=== PATIENT | female | born 1965 | race Hispanic/Latino ===

== ENCOUNTER 2016-12-01 11:38 | Inpatient (IN) | payer OTHER ==
[2016-12-01 12:49] VITALS: BMI 24.7
[2016-12-01] MEDS ORDERED: Sodium Chloride 0.9% 1,000 ML IV STA (13:50)
--- NOTE | 2016-12-01 14:11 | ED PDOC ---
Arrival/HPI - General Chief Complaint: Abdominal Pain Time Seen by Provider: 12/01/16 13:48 Historian: Patient - History of Present Illness Narrative History of Present Illness (Text): 12/01/16 14:06 A 51 year old female, whose past medical history includes Crohn's disease, presents to the emergency department complaining of diffuse abdominal pain for the past few days. Patient reports associated nausea, non-bilious non-bloody vomiting and diarrhea. Patient states symptoms are similar in quality to previous Crohn's flare-ups. Patient denies any fever, chills, chest pain, shortness of breath, urinary symptoms, back pain, neck pain, headache, dizziness , or any other complaints. Time/Duration: Other (few days) Symptom Course: Unchanged Quality: Other Context: Other Past Medical History - Provider Review Nursing Documentation Reviewed: Yes - Infectious Disease Hx of Infectious Diseases: None - Tetanus Immunization Tetanus Immunization: Unknown - Cardiac Hx Cardiac Disorders: No - Pulmonary Hx Respiratory Disorders: Yes Hx Asthma: Yes Hx Pneumonia: Yes - Neurological Hx Neurological Disorder: No - HEENT Hx HEENT Disorder: No - Renal Hx Renal Disorder: No - Endocrine/Metabolic Hx Endocrine Disorders: No - Hematological/Oncological Hx Blood Disorders: No - Integumentary Hx Dermatological Disorder: Yes Hx Eczema: Yes (flare up noted on stomach/back/bilateral upper and lower extremities) Hx Psoriasis: Yes - Musculoskeletal/Rheumatological Hx Musculoskeletal Disorders: Yes Hx Falls: Yes Other/Comment: passed out x 1 - Gastrointestinal Hx Gastrointestinal Disorders: Yes Hx Crohn's Disease: Yes (10 years ) - Genitourinary/Gynecological Hx Genitourinary Disorders: No - Psychiatric Hx Psychophysiologic Disorder: Yes Hx Anxiety: Yes Hx Substance Use: No - Surgical History Other/Comment: PT reports a Rt hemicolectomy without stoma placement done 5years ago. - Anesthesia Hx Anesthesia: Yes Hx Anesthesia Reactions: No Hx Malignant Hyperthermia: No - Suicidal Assessment Feels Threatened In Home Enviroment: No Family/Social History - Physician Review Nursing Documentation Reviewed: Yes Family/Social History: No Known Family HX Smoking Status: Current Some Days Smoker Hx Alcohol Use: Yes Hx Substance Use: No Substance used: Xanax Hx Substance Use Treatment: No Allergies/Home Meds Allergies/Adverse Reactions: Allergies morphine Allergy (Verified 12/01/16 12:49) RASH Physical Exam - Physical Exam Narrative Physical Exam (Text): - Review of Systems Constitutional: Normal. absent: Fatigue, Weight Change, Fevers Eyes: Normal ENT: Normal Respiratory: Normal absent: SOB, Cough, Sputum Cardiovascular: Normal absent: Chest pain, Palpitations, Syncope Gastrointestinal: (+) Abdominal pain, Diarrhea, Nausea, Vomiting Genitourinary: Normal. absent: Dysuria, Frequency, Hematuria Musculoskeletal: Normal. absent: Arthralgias, Back Pain, Neck Pain Skin: Normal Neurological: Normal absent: Focal Weakness Endocrine: Normal Hemo/Lymphatic: Normal Psychiatric: Normal - Physical exam Patient appears age appropriate, speaking full sentences without difficulty - Systems Exam Head: Present: Atraumatic, Normocephalic Pupils: Present: PERRL Extraocular Muscles: Present: EOMI Conjunctiva: Present: Normal Mouth: Present: Moist Mucous Membranes Neck: Present: Normal Range of Motion. No: MIDLINE TENDERNESS, Paraspinal Tenderness Respiratory/Chest: Present: Clear to Auscultation, Good Air Exchange. No: Respiratory Distress, Accessory Muscle Use, Tachypneic Cardiovascular: Present: Regular Rate and Rhythm, Normal S1, S2, Peripheral Pulses Present. No: Murmurs Abdomen: Present: Normal Bowel Sounds, No: Tenderness, Peritoneal Signs, Rebound, Guarding, Distention Back: Present: Normal Inspection. No: Midline Tenderness, Paraspinal Tenderness Upper Extremity: Present: Normal Inspection. No: Cyanosis, Edema Lower Extremity: Present: Normal Inspection. No: Edema Neurological: Present: GCS=15, Speech Normal, cranial nerves II through XII fully intact with no cerebellar abnormality, neuro-sensory fully intact. No focal neurological deficits. Skin: Present: Warm, Dry, Normal Color. No: Rashes Lymphatic: Present: OX3, NI, NC Psychiatric: Present: Alert, Oriented x 3, Normal Insight, Normal Concentration Vital Signs Reviewed: Yes Vital Signs Temp Pulse Resp BP Pulse Ox 12/01/16 17:08 68 18 105/69 98 12/01/16 16:00 71 18 107/71 98 12/01/16 13:58 79 18 105/74 98 12/01/16 12:51 97.9 F 89 16 103/80 98 Temperature: Afebrile Blood Pressure: Normal Pulse: Regular Respiratory Rate: Normal Appearance: Positive for: Well-Appearing, Non-Toxic, Comfortable Pain Distress: None Mental Status: Positive for: Alert and Oriented X 3 Medical Decision Making ED Course and Treatment: 12/01/16 14:06 Impression: A 51 year old female with a history of Crohn's disease complains of abdominal pain, nausea, non-bilious non-bloody vomiting and diarrhea. Plan: -- Abdomen and pelvis CT -- Chest xray -- EKG -- Labs -- Blood culture -- Urinalysis -- IV fluids and Tylenol -- Reassess and disposition 12/01/16 18:27 Patient continues to have abdominal pain despite IV Dilaudid. States that she is in too much pain to be discharged home at this time. Case discussed with Dr. Fierro, aware of admission to his service. 12/01/16 18:[address] Maximus Martinez, med. resident. States will also let Dr. Smith know. 12/01/16 20:08 CT IMPRESSION: Pelvic abscess; increasing adenopathy infectious versus neoplastic; Ileus and/or partial/early bowel obstruction; thickened small bowel loops causing partial obstruction consistent with history of Crohn's disease; dilated common bile duct distal obstructing lesion cannot be excluded; mild hepatomegaly with fatty infiltration; rectal wall thickening inflammation/ infection versus neoplasm Additional findings as described above. Dictated and Authenticated by: Karen Madrid MD IV abx ordered Dr. Smith informed of above findings 12/01/16 20:[address] Gerber from surgery - Lab Interpretations Lab Results: 12/01/16 16:25 12/01/16 16:25 Lab Results 12/01/16 16:25: WBC 10.7, RBC 4.36, Hgb 12.1, Hct 36.8, MCV 84.4, MCH 27.8, MCHC 32.9, RDW 16.8 H, Plt Count 350, MPV 11.3 H, Gran % 69.9 H, Lymph % (Auto) 14.8 L, Oliver % (Auto) 11.5 H, Eos % (Auto) 3.7, Baso % (Auto) 0.1, Gran # 7.49 H , Lymph # 1.6, Oliver # 1.2 H, Eos # 0.4, Baso # 0.01, PT 12.8 H, INR 1.19 H, APTT 27.4, Sodium 136, Potassium 3.3 L, Chloride 101, Carbon Dioxide 23, Anion Gap 15, BUN 14, Creatinine 0.9, Est GFR ( Amer) > 60, Est GFR (Non-Af Amer) > 60, Random Glucose 145 H, Calcium 9.0, Total Bilirubin 0.4, AST 28, ALT 14, Alkaline Phosphatase 92, Total Protein 6.8, Albumin 3.0, Globulin 3.8, Albumin/Globulin Ratio 0.8 L, Lipase 12 L 12/01/16 14:23: Urine Color Yellow, Urine Appearance Clear, Urine pH 6.0, Ur Specific Irving 1.025, Urine Protein 30 H, Urine Glucose (UA) Negative, Urine Ketones Negative, Urine Blood Negative, Urine Nitrate Negative, Urine Bilirubin Negative, Urine Urobilinogen 0.2, Ur Leukocyte Esterase Negative, Urine RBC Negative, Urine WBC 0 - 2, Ur Epithelial Cells 0 - 2, Calcium Oxalate Crystal Rare, Urine Bacteria Few, Hyaline Casts 0 - 2 I have reviewed the lab results: Yes - RAD Interpretation Radiology Orders: 12/01/16 13:48 ABD & PELVIS IV CONTRAST ONLY [CT] Stat 12/01/16 13:50 CHEST PORTABLE [RAD] Stat - Medication Orders Current Medication Orders: Piperacillin Sod/Tazobactam Sod (Zosyn 4.5 Gm In Ns 100ml) 100 mls @ 200 mls/ hr IVPB STAT STA PRN Reason: Protocol Stop: 12/01/16 20:36 Discontinued Medications Acetaminophen (Tylenol 325mg Tab) 975 mg PO STAT STA Stop: 12/01/16 14:05 Last Admin: 12/01/16 14:15 Dose: 975 MG MAR Pain/Vitals Document 12/01/16 14:15 HI (Rec: 12/01/16 16:42 [id number]) Pain Reassessment Is This A Pain ReAssessment? No Sleep Is patient sleeping during reassessment? No Presence of Pain Presence of Pain Yes Pain Scale Used Pain Scale Used Numeric Location Intensity 8 Hydromorphone HCl (Dilaudid) 1 mg IVP STAT STA Stop: 12/01/16 16:39 Last Admin: 12/01/16 17:02 Dose: 1 MG IVP Administration Document 12/01/16 17:02 HI (Rec: 12/01/16 17:02 [id number]) Charges for Administration # of IVP Administrations 1 Sodium Chloride (Sodium Chloride 0.9%) 1,000 mls @ 1,000 mls/hr IV .Q1H STA Stop: 12/01/16 14:49 Last Admin: 12/01/16 16:43 Dose: 1,000 MLS/HR eMAR Start Stop Document 12/01/16 16:43 HI (Rec: 12/01/16 16:43 [facility] [id number] Intravenous Solution Start Date 12/01/16 Start Time 16:43 End Date 12/01/16 End time 17:43 Total Infusion Time 60 Magnesium Sulfate/Dextrose (Magnesium Sulfate 1 Gm/100 Ml D5w) 100 mls @ 100 mls/hr IVPB ONCE ONE Stop: 12/01/16 18:33 Last Admin: 12/01/16 17:48 Dose: 100 MLS/HR eMAR Start Stop Document 12/01/16 17:48 HI (Rec: 12/01/16 17:48 [id number]) Intravenous Solution Start Date 12/01/16 Start Time 17:48 End Date 12/01/16 End time 18:48 Total Infusion Time 60 Potassium Chloride (K-Dur 20 Meq Er Tab) 40 meq PO STAT STA Stop: 12/01/16 17:35 Last Admin: 12/01/16 17:48 Dose: 40 MEQ ED OBSERVATION Date of observation admission: 12/01/16 Time of observation admission: 11:51 - Scribe Statement The provider has reviewed the documentation as recorded by the Scribscout Johnson Provider Scribe Attestation: All medical record entries made by the Scribe were at my direction and personally dictated by me. I have reviewed the chart and agree that the record accurately reflects my personal performance of the history, physical exam, medical decision making, and the department course for this patient. I have also personally directed, reviewed, and agree with the discharge instructions and disposition. Disposition/Present on Arrival - Present on Arrival Any Indicators Present on Arrival: No History of DVT/PE: No History of Uncontrolled Diabetes: No Urinary Catheter: No History of Decub. Ulcer: No History Surgical Site Infection Following: None - Disposition Have Diagnosis and Disposition been Completed?: Yes Diagnosis: Abdominal pain Disposition: HOSPITALIZED Disposition Time: 11:51 Patient Plan: Admission Patient Problems: Current Active Problems Problem Status Diagnosed Abdominal pain Acute Abnormal EKG Acute Bradycardia Acute Exacerbation of Crohn's disease Acute Polysubstance abuse Acute Syncope Acute Condition: FAIR
[2016-12-01 14:28] LABS: URINE BILIRUBIN NEGATIVE (NEGATIVE); URINE BLOOD NEGATIVE (NEGATIVE); URINE GLUCOSE (UA) NEGATIVE (NEGATIVE); URINE KETONE NEGATIVE (NEGATIVE); URINE LEUKOCYTE ESTERASE NEGATIVE Leu/uL (NEGATIVE); URINE PROTEIN 30 mg/dL (<30 mg/dL); URINE UROBILINOGEN 0.2 E.U./dL (<1 E.U./dL)
[2016-12-01 14:29] LABS: URINE APPEARANCE CLEAR (CLEAR); URINE COLOR YELLOW (YELLOW)
[2016-12-01 14:49] LABS: URINE BACTERIA FEW (NEG); URINE CALCIUM OXALATE CRYSTALS RARE /hpf; URINE EPITHELIAL CELLS 0 - 2 /hpf (0-5); URINE RBC NEGATIVE /hpf (0-2); URINE WBC 0 - 2 /hpf (0-6)
[2016-12-01 16:37] LABS: ADD MANUAL DIFF? NO
[2016-12-01] MEDS ORDERED: HYDROmorphone 1 mg/ml ISec IVP STA (16:38)
[2016-12-01 16:53] LABS: ALB/GLOB RATIO 0.8 (1.1-1.8); ALKALINE PHOSPHATASE 92 U/L (38-133); ALT/SGPT 14 U/L (7-56); AST/SGOT 28 U/L (15-39); BILIRUBIN,TOTAL 0.4 mg/dL (0.2-1.3); BLOOD UREA NITROGEN 14 mg/dL (7-21); CARBON DIOXIDE 23 mmol/L (21-33); CHLORIDE 101 mmol/L (98-107); GFR AFRICAN-AMERICAN > 60; GLUCOSE,RANDOM 145 mg/dL (70-110); LIPASE 12 U/L (23-300); SODIUM 136 mmol/L (132-148); TOTAL PROTEIN 6.8 g/dL (5.8-8.3)
[2016-12-01 16:55] LABS: EOS % 3.7 % (1.5-5.0); GRAN % 69.9 % (50.0-68.0); HEMATOCRIT 36.8 % (36.0-48.0); LYMPH % 14.8 % (22.0-35.0); MEAN CELL VOLUME 84.4 fL (80.0-105.0); MEAN CORPUSCULAR HEMOGLOBIN 27.8 pg (25.0-35.0); MEAN CORPUSCULAR HGB CONC 32.9 g/dl (31.0-37.0); MEAN PLATELET VOLUME 11.3 fl (7.0-11.0); MONO % 11.5 % (1.0-6.0); PLATELET COUNT 350 10^3/uL (120.0-450.0); RED CELL DISTRIBUTION WIDTH 16.8 % (11.5-14.5); WHITE BLOOD COUNT 10.7 10^3/ul (4.5-11.0)
[2016-12-01 16:56] LABS: BASO # 0.01 K/mm3 (0.0-2.0); BASO % 0.1 % (0.0-3.0); EOS # 0.4 (0.0-0.7); GRAN # 7.49 (1.4-6.5); LYMPH # 1.6 (1.2-3.4); MONO # 1.2 (0.1-0.6)
[2016-12-01 16:58] LABS: POTASSIUM 3.3 mmol/L (3.6-5.0)
--- NOTE | 2016-12-01 17:00 | RAD ---
HISTORY: cough COMPARISON: Comparison is made to the previous study dated 10/08/2016 FINDINGS: LUNGS: No active pulmonary disease. PLEURA: No significant pleural effusion identified, no pneumothorax apparent. CARDIOVASCULAR: Normal. OSSEOUS STRUCTURES: No significant abnormalities. VISUALIZED UPPER ABDOMEN: Normal. OTHER FINDINGS: None. IMPRESSION: No radiographic evidence of pneumonia.
[2016-12-01 17:03] LABS: INR 1.19 (0.93-1.08); PARTIAL THROMBOPLASTIN TIME 27.4 Seconds (23.7-30.8)
[2016-12-01] MEDS ORDERED: Potassium Chloride 20 mEq ER Tab PO STA (17:34)
--- NOTE | 2016-12-01 19:31 | CP.PCM.HP ---
<Gela Martinez - Last Filed: 12/01/16 20:59> History of Present Illness - History of Present Illness History of Present Illness: A 51 year old female, whose past medical history includes Crohn's disease, presents to the emergency department complaining of diffuse abdominal pain for the past few days. 10/10 constant, worse RUQ and LUQ. Patient reports associated nausea, non-bilious non-bloody vomiting and diarrhea. 4-5 episodes of each day. Patient states symptoms are similar in quality to previous Crohn's flare-ups. In the Patient continues to have abdominal pain despite IV Dilaudid CT showed: Pelvic Abscess Increasing adenopathy - infectious vs neoplastic Ileus and/or partial/early bowel obstruction thickened small bowel loops causing partial obstruction consistent with Crohn Dilated common bule duct distal obstruting lesion cannot r/o Mild hepatomegatly with fatty infiltration rectal wall thickening inflammation vs infection vs neoplasm Patient denies any fever, chills, chest pain, shortness of breath, urinary symptoms, back pain, neck pain, headache, dizziness, or any other complaints. PMH Crohn's disease x 10 years Asthma Hx Pneumonia Eczema/Psoriasis (flare up noted on stomach/back/bilateral upper and lower extremities) Hx fall Anxiety, Depression, Bipolar disorder, drug use, and alcohol abuse PSH Rt hemicolectomy without stoma placement Flavia-rectal Abscess drainage in June 2016 w/ Dr. Derrell Metcalf FHx: Unremarkable SHx: Admits to heavy tobacco, alcohol use, and cocaine use. All: Morphine (hives) Meds: As per chart PMD Present on Admission - Present on Admission Any Indicators Present on Admission: No Past Patient History - Infectious Disease Hx of Infectious Diseases: None - Tetanus Immunizations Tetanus Immunization: Unknown - Past Medical History & Family History Past Medical History?: Yes - Past Social History Smoking Status: Current Some Days Smoker - CARDIAC Hx Cardiac Disorders: No - PULMONARY Hx Respiratory Disorders: Yes Hx Asthma: Yes Hx Pneumonia: Yes - NEUROLOGICAL Hx Neurological Disorder: No - HEENT Hx HEENT Problems: No - RENAL Hx Chronic Kidney Disease: No - ENDOCRINE/METABOLIC Hx Endocrine Disorders: No - HEMATOLOGICAL/ONCOLOGICAL Hx Blood Disorders: No - INTEGUMENTARY Hx Dermatological Problems: Yes Hx Eczema: Yes (flare up noted on stomach/back/bilateral upper and lower extremities) Hx Psoriasis: Yes - MUSCULOSKELETAL/RHEUMATOLOGICAL Hx Musculoskeletal Disorders: Yes Hx Falls: Yes Other/Comment: passed out x 1 - GASTROINTESTINAL Hx Gastrointestinal Disorders: Yes Hx Crohn's Disease: Yes (10 years ) - GENITOURINARY/GYNECOLOGICAL Hx Genitourinary Disorders: No - PSYCHIATRIC Hx Psychophysiologic Disorder: Yes Hx Anxiety: Yes Hx Substance Use: No - SURGICAL HISTORY Other/Comment: PT reports a Rt hemicolectomy without stoma placement done 5years ago. - ANESTHESIA Hx Anesthesia: Yes Hx Anesthesia Reactions: No Hx Malignant Hyperthermia: No Meds Allergies/Adverse Reactions: Allergies Allergy/AdvReac Type Severity Reaction Status Date / Time morphine Allergy RASH Verified 12/01/16 12:49 Physical Exam - Constitutional Appears: No Acute Distress - Head Exam Head Exam: ATRAUMATIC, NORMOCEPHALIC - Eye Exam Eye Exam: EOMI, Normal appearance, PERRL Pupil Exam: NORMAL ACCOMODATION - ENT Exam ENT Exam: Mucous Membranes Moist - Neck Exam Neck exam: Negative for: Meningismus Additional comments: no jvd - Respiratory Exam Respiratory Exam: Clear to Auscultation Bilateral, NORMAL BREATHING PATTERN. absent: Rales, Rhonchi, Wheezes - Cardiovascular Exam Cardiovascular Exam: REGULAR RHYTHM, +S1, +S2. absent: Systolic Murmur - GI/Abdominal Exam GI & Abdominal Exam: Distended, Hypoactive Bowel Sounds, Soft. absent: Guarding , Rigid - Extremities Exam Extremities exam: Positive for: normal capillary refill, pedal pulses present. Negative for: calf tenderness, pedal edema - Back Exam Back exam: absent: CVA tenderness (L), CVA tenderness (R) - Neurological Exam Neurological exam: Alert, Oriented x3 - Psychiatric Exam Psychiatric exam: Agitated, Anxious - Skin Skin Exam: Dry, Rash (abdomin, LLE b/l. chronic), Warm Results - Vital Signs Recent Vital Signs: Last Vital Signs Temp 97.9 F 12/01/16 12:51 Pulse 68 12/01/16 17:08 Resp 18 12/01/16 17:08 BP 105/69 12/01/16 17:08 Pulse Ox 98 12/01/16 17:08 - Labs Result Diagrams: 12/01/16 16:25 12/01/16 16:25 Assessment & Plan - Assessment and Plan (Free Text) Plan: Abdominal Pain - Diluadid 0.5 mg Q4H PRN hold if SBP <90 - NPO - Vanco and zoysn - ID consult - NS+20K @ 100 Pelvic Abscess - Increasing adenopathy - infectious vs neoplastic - surgery consult Ileus and/or partial/early bowel obstruction with rectal wall thickening Crohn with skin rash - thickened small bowel loops causing partial obstruction consistent with Crohn - rectal wall thickening inflammation vs infection vs neoplasm - GI consult - - hydrocortisone cream for skin rash Dilated common bule duct distal obstruting lesion cannot r/o Mild hepatomegatly with fatty infiltration Hx Crohn's Disease - home med - Mesalamine 100mg PO QID Hx Asthma - no breathing complaint. POx normal Hx Depression, Anxiety Restarted home medications: Lexapro 10mg PO daily, Seroquel 200mg PO BID, Klonopin 1mg PO TID Hx of Alcohol Abuse Hx of Heroine, Cocaine Abuse Prior UDS: + opiates, methadone, cocaine Pending current UDS Neuropathy - gabapentin 800 TID Prophylactic Measures GI PPX: Protonix 40mg PO daily DVT PPX: SCDs Zofran PRN Tylenol PRN D/S/R/w Dr. Davina Smith - Date & Time Date: 12/01/16 Time: 20:32 <Lester Smith - Last Filed: 12/02/16 07:03> Results - Vital Signs Recent Vital Signs: Last Vital Signs Temp 98.1 F 12/02/16 05:28 Pulse 71 12/02/16 05:28 Resp 20 12/02/16 05:28 BP 115/89 12/02/16 05:28 Pulse Ox 99 12/01/16 22:17 - Labs Result Diagrams: 12/01/16 16:25 12/01/16 16:25 Attending/Attestation - Attestation I have personally seen and examined this patient.: Yes I have fully participated in the care of the patient.: Yes I have reviewed all pertinent clinical information: Yes Notes (Text): 12/02/16 07:02 Patient was seen when she was in the ER in bed # 21. Agree with history , physical examination , assessment and plan.
--- NOTE | 2016-12-01 19:50 | CT ---
EXAM: CT Abdomen and Pelvis With Intravenous Contrast. CLINICAL HISTORY: 51 years old, female; Signs and symptoms; Nausea and other: [place]; Prior surgery; Surgery date: 6+ months; Patient HX: [place]. HX crohns. Colon resection TECHNIQUE: Axial computed tomography images of the abdomen and pelvis with intravenous contrast. This CT exam was performed using one or more of the following dose reduction techniques: automated exposure control, adjustment of the mA and/or kV according to patient size, and/or use of iterative reconstruction technique. Coronal and sagittal reformatted images were created and reviewed. CONTRAST: 100 mL of OMNI administered intravenously. EXAM DATE/TIME: 12/01/2016 1:48 PM COMPARISON: CT - ABD PELVIS W/O PO OR IV CONT 10/28/2016 12:56:28 AM FINDINGS: Lower thorax: Heart size is normal. There is a small hiatal hernia. There is minimal atelectasis and scarring at the lung bases ABDOMEN: Liver: There is fatty infiltration of the liver. The liver is mildly enlarged Gallbladder and bile ducts: Gallbladder is distended. Common bile duct is dilated. Pancreas: Pancreas is atrophic. 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 Stomach and bowel: Stomach is partially distended. Rotation is normal. Small bowel is mildly dilated. There are air fluid levels. There is a thickened inflamed small bowel loop in the right mid abdomen, image 111 series 2. There is a thickened inflamed small bowel loop in the right lower quadrant with associated caliber change, images 112-137, series 2. There is an additional area bowel inflammation with narrowing in the right lower quadrant, image 137 series 2. There is an enteral anastomosis in the right lower quadrant. There is a colorectal anastomosis in the right lower abdomen. There is a large amount of air and stool in the right colon. Degree of distention decreases distally. There is focal rectal wall thickening and wall irregularity in the low pelvis. There is inflammation in the adjacent perirectal and presacral fat. Inflammation is contiguous with the abscess. Appendix: See stomach and bowel PELVIS: Bladder: Bladder is partially distended. There is mild bladder wall prominence. There is perivesical fluid. Reproductive: Uterus and adnexal structures are unremarkable. ABDOMEN and PELVIS: Intraperitoneal space: There is no free air. There irregularly shaped fluid collection in the cul-de-sac with mild wall enhancement. This measures approximately 4.3 x 6 x 6 cm. Anterior inferior portion cannot be from the vagina. Bones/joints: There are degenerative changes in the osseus structures. Soft tissues: See above. Vasculature: There are multiple phleboliths. Aorta and inferior vena cava are unremarkable. Lymph nodes: There is inguinal adenopathy left greater than right. Left inguinal adenopathy has increased compared to the prior study. There is bulky left external iliac adenopathy increased since the prior study. There is increasing paracaval and para-aortic retroperitoneal adenopathy IMPRESSION: Pelvic abscess; increasing adenopathy infectious versus neoplastic; Ileus and/or partial/early bowel obstruction; thickened small bowel loops causing partial obstruction consistent with history of Crohn's disease; dilated common bile duct distal obstructing lesion cannot be excluded; mild hepatomegaly with fatty infiltration; rectal wall thickening inflammation/infection versus neoplasm Additional findings as described above.
[2016-12-01] MEDS ORDERED: Piperacill/Tazo 4.5gm in NS 100 ML IVPB STA (20:07)
[2016-12-01] MEDS: HYDROmorphone 0.5 mg/0.5 ml ISec IVP PRN (20:39)
--- NOTE | 2016-12-01 20:56 | CARD ---
APPROVED REPORT EKG Measurement Heart [id number] <Conclusion> Normal sinus rhythm Nonspecific T wave abnormality Abnormal ECG
--- NOTE | 2016-12-01 21:53 | CP.PCM.CON ---
<Edin Coburn - Last Filed: 12/01/16 22:24> History of Present Illness - History of Present Illness History of Present Illness: SURGERY CONSULT NOTE FOR DR. MARTI 51F presents to [facility] [place] with abdominal pain that she states began over the weekend. Patient states she has had this type of pain numerous time due to her Crohn's disease. She states the pain has been growing intensity the past two days and earlier this morning it became unbearable. Pain is described as diffused and aching/pressure. She admits to nausea but denies vomiting when I asked her. She denies fevers and chill. States she has been having multiple bouts of diarrhea in the past couple of days. PMH:Crohn's, Psoriasis, Asthma, Anxiety, Alcohol abuse, Drug abuse PSH: Right hemicolectomy, Flavia-rectal abscess Social: she denied tobacco, alcohol and illicit drug use, but has a history as per chart Allergies: states she has no allergies, denies morphine allergy Past Patient History - Infectious Disease Hx of Infectious Diseases: None - Tetanus Immunizations Tetanus Immunization: Unknown - Past Medical History & Family History Past Medical History?: Yes - Past Social History Smoking Status: Current Some Days Smoker - CARDIAC Hx Cardiac Disorders: No - PULMONARY Hx Respiratory Disorders: Yes Hx Asthma: Yes Hx Pneumonia: Yes - NEUROLOGICAL Hx Neurological Disorder: No - HEENT Hx HEENT Problems: No - RENAL Hx Chronic Kidney Disease: No - ENDOCRINE/METABOLIC Hx Endocrine Disorders: No - HEMATOLOGICAL/ONCOLOGICAL Hx Blood Disorders: No - INTEGUMENTARY Hx Dermatological Problems: Yes Hx Eczema: Yes (flare up noted on stomach/back/bilateral upper and lower extremities) Hx Psoriasis: Yes - MUSCULOSKELETAL/RHEUMATOLOGICAL Hx Musculoskeletal Disorders: Yes Hx Falls: Yes Other/Comment: passed out x 1 - GASTROINTESTINAL Hx Gastrointestinal Disorders: Yes Hx Crohn's Disease: Yes (10 years ) - GENITOURINARY/GYNECOLOGICAL Hx Genitourinary Disorders: No - PSYCHIATRIC Hx Psychophysiologic Disorder: Yes Hx Anxiety: Yes Hx Substance Use: No - SURGICAL HISTORY Other/Comment: PT reports a Rt hemicolectomy without stoma placement done 5years ago. - ANESTHESIA Hx Anesthesia: Yes Hx Anesthesia Reactions: No Hx Malignant Hyperthermia: No Meds Allergies/Adverse Reactions: Allergies Allergy/AdvReac Type Severity Reaction Status Date / Time morphine Allergy RASH Verified 12/01/16 12:49 - Medications Medications: Current Medications Acetaminophen (Tylenol 325mg Tab) 650 mg PO Q6H PRN PRN Reason: Pain, moderate (4-7) Clonazepam (Klonopin) 1 mg PO TID [facility] PRN Reason: Protocol Escitalopram Oxalate (Lexapro) 10 mg PO DAILY [facility] Gabapentin (Neurontin) 800 mg PO TID [facility] PRN Reason: Protocol Hydrocortisone (Cortizone 1% Cream) 0 gm TOP BID [facility] Hydromorphone HCl (Dilaudid) 0.5 mg IVP Q4H PRN PRN Reason: Pain, severe (8-10) Last Admin: 12/01/16 20:39 Dose: 0.5 mg Potassium Chloride 20 meq/ (Sodium Chloride) 1,010 mls @ 100 mls/hr IV .Q10H6M [facility] Piperacillin Sod/Tazobactam Sod (Zosyn 3.375 In Ns 100ml) 100 mls @ 200 mls/hr IVPB Q6 [facility] PRN Reason: Protocol Stop: 12/02/16 06:29 Vancomycin HCl (Vancomycin 1gm) 250 mls @ 167 mls/hr IVPB Q12H [facility] PRN Reason: Protocol Mesalamine (Pentasa) 1,000 mg PO QID [facility] Ondansetron HCl (Zofran Inj) 4 mg IVP Q8 PRN PRN Reason: Nausea/Vomiting Pantoprazole Sodium (Protonix Ec Tab) 40 mg PO DAILY [facility] Quetiapine Fumarate (Seroquel) 200 mg PO BID [facility] PRN Reason: Protocol Zolpidem Tartrate (Ambien) 5 mg PO HS [facility] PRN Reason: Protocol Physical Exam - Constitutional Appears: Non-toxic, No Acute Distress - Head Exam Head Exam: ATRAUMATIC - Eye Exam Eye Exam: EOMI, PERRL - ENT Exam Additional comments: poor dental hygiene - Respiratory Exam Respiratory Exam: Clear to Auscultation Bilateral, NORMAL BREATHING PATTERN - Cardiovascular Exam Cardiovascular Exam: REGULAR RHYTHM, +S1, +S2 - GI/Abdominal Exam GI & Abdominal Exam: Distended, Tenderness. absent: Guarding, Rigid - Extremities Exam Extremities exam: Negative for: tenderness - Neurological Exam Neurological exam: Alert, Oriented x3 - Skin Skin Exam: Dry, Rash (eczematous rash), Warm Results - Vital Signs Recent Vital Signs: Last Vital Signs Temp 97.9 F 12/01/16 12:51 Pulse 68 12/01/16 17:08 Resp 18 12/01/16 17:08 BP 105/69 12/01/16 17:08 Pulse Ox 98 12/01/16 17:08 - Labs Result Diagrams: 12/01/16 16:25 12/01/16 16:25 Assessment & Plan - Assessment and Plan (Free Text) Assessment: 51F presents with abdominal pain, likely 2/2 Crohn's flare-up CT: pelvic abscess 4.3*6*6cm, thicken small bowel loops, right colon has moderate amount stool Plan: - strict Is&Os, monitor vitals, IVF - f/u GI recommendations - continue medical management - recommend IR consultation for evaluation of abdominal collection Discussed with Dr. Kaia Coburn, PGY1 <Dheeraj Marti - Last Filed: 12/10/16 20:42> Meds - Medications Medications: Current Medications Acetaminophen (Tylenol 325mg Tab) 650 mg PO Q6H PRN PRN Reason: Pain, moderate (4-7) Last Admin: 12/08/16 20:36 Dose: 650 mg Al Hydrox/Mg Hydrox/Simethicone (Maalox Plus 30 Ml) 30 ml PO DAILY PRN PRN Reason: Indigestion / Heartburn Clonazepam (Klonopin) 1 mg PO TID [facility] Stop: 12/15/16 18:01 Last Admin: 12/10/16 20:05 Dose: 1 mg Docusate Sodium (Colace) 100 mg PO TID [facility] Last Admin: 12/10/16 20:05 Dose: 100 mg Escitalopram Oxalate (Lexapro) 10 mg PO DAILY [facility] Last Admin: 12/10/16 10:08 Dose: 10 mg Gabapentin (Neurontin) 800 mg PO TID [facility] PRN Reason: Protocol Last Admin: 12/10/16 20:04 Dose: 800 mg Heparin Sodium (Porcine) (Heparin) 5,000 units SC Q12 [facility] PRN Reason: Protocol Last Admin: 12/10/16 09:49 Dose: Not Given Hydrocortisone (Cortizone 1% Cream) 0 gm TOP BID [facility] Last Admin: 12/10/16 20:06 Dose: 1 appl Hydrocortisone/Pramoxine (Proctofoam) 1 gm TOP TID [facility] Last Admin: 12/10/16 20:26 Dose: Not Given Meropenem 1g/NS 100mL IVPB (Meropenem 1g/Ns 100ml Ivpb) 100 mls @ 100 mls/hr IVPB Q8H [facility] Last Admin: 12/10/16 19:05 Dose: 100 mls/hr Ondansetron HCl (Zofran Inj) 4 mg IVP Q8 PRN PRN Reason: Nausea/Vomiting Oxycodone HCl (Oxycontin Extended Release Tab) 60 mg PO Q12 [facility] Oxycodone HCl (Oxycodone Immediate Release Tab) 15 mg PO BID PRN PRN Reason: Pain, moderate (4-7) Last Admin: 12/10/16 18:19 Dose: 15 mg Pantoprazole Sodium (Protonix Inj) 40 mg IVP DAILY [facility] Last Admin: 12/10/16 09:53 Dose: 40 mg Quetiapine Fumarate (Seroquel) 200 mg PO BID [facility] PRN Reason: Protocol Last Admin: 12/10/16 20:05 Dose: 200 mg Simethicone (Mylicon Chew Tab) 80 mg PO [facility] PRN PRN Reason: GI distress Last Admin: 12/09/16 17:12 Dose: 80 mg Zolpidem Tartrate (Ambien) 5 mg PO HS [facility] PRN Reason: Protocol Last Admin: 12/10/16 00:34 Dose: 5 mg Results - Vital Signs Recent Vital Signs: Last Vital Signs Temp 98 F 12/10/16 16:00 Pulse 62 12/10/16 16:00 Resp 20 12/10/16 16:00 BP 108/59 L 12/10/16 16:00 Pulse Ox 98 12/10/16 16:00 - Labs Result Diagrams: 12/10/16 06:30 12/09/16 05:30 Labs: Laboratory Results - last 24 hr 12/07/16 12/10/16 12/10/16 00:09 06:30 12:50 WBC 8.0 RBC 3.15 L Hgb 8.7 L Hct 27.0 L MCV 85.7 MCH 27.6 MCHC 32.2 RDW 16.1 H Plt Count 512 H MPV 9.7 Gran % 71.8 H Lymph % (Auto) 13.3 L Oliver % (Auto) 8.2 H Eos % (Auto) 6.4 H Baso % (Auto) 0.3 Gran # 5.72 Lymph # 1.1 L Oliver # 0.7 H Eos # 0.5 Baso # 0.02 CA 19-9 Antigen 125 H CA 125 Antigen 8.2 Crossmatch See Detail Assessment & Plan - Assessment and Plan (Free Text) Assessment: Patient was seen and examined by me. I agree with assessment and plan as per residents note. - Date & Time Date: 12/01/16 Time: 23:05
[2016-12-01] MEDS: Hydrocortisone 1% Cream (30 GM) TOP SCH (22:09)
[2016-12-01] MEDS: Vancomycin 1gm in NS 250ml 250 ML IVPB SCH (23:33)
[2016-12-01] MEDS: Mesalamine ER Cap 500 MG PO SCH (23:34)
[2016-12-02] MEDS ORDERED: Piperacillin/Tazobact 3.375 gm 100 ML IVPB SCH
[2016-12-02] MEDS: HYDROmorphone 0.5 mg/0.5 ml ISec IVP PRN ×7 (00:15→22:34)
--- NOTE | 2016-12-02 02:16 | CP.PCM.PN ---
Subjective - Date & Time of Evaluation Date of Evaluation: 12/02/16 Time of Evaluation: 02:15 - Subjective Subjective: #24 angiocath was inserted in left forearm. Objective - Vital Signs/Intake and Output Vital Signs (last 24 hours): Temp Pulse Resp BP Pulse Ox 97.9 F 75 16 110/59 L 99 12/01/16 12:51 12/01/16 22:17 12/01/16 22:17 12/01/16 22:17 12/01/16 22:17 - Medications Medications: Current Medications Acetaminophen (Tylenol 325mg Tab) 650 mg PO Q6H PRN PRN Reason: Pain, moderate (4-7) Clonazepam (Klonopin) 1 mg PO TID [facility] PRN Reason: Protocol Escitalopram Oxalate (Lexapro) 10 mg PO DAILY [facility] Gabapentin (Neurontin) 800 mg PO TID [facility] PRN Reason: Protocol Hydrocortisone (Cortizone 1% Cream) 0 gm TOP BID [facility] Last Admin: 12/01/16 22:09 Dose: Not Given Hydromorphone HCl (Dilaudid) 0.5 mg IVP Q4H PRN PRN Reason: Pain, severe (8-10) Last Admin: 12/02/16 00:15 Dose: 0.5 mg Potassium Chloride 20 meq/ (Sodium Chloride) 1,010 mls @ 100 mls/hr IV .Q10H6M [facility] Vancomycin HCl (Vancomycin 1gm) 250 mls @ 167 mls/hr IVPB Q12H [facility] PRN Reason: Protocol Last Admin: 12/01/16 23:33 Dose: 167 mls/hr Piperacillin Sod/Tazobactam Sod (Zosyn 3.375 In Ns 100ml) 100 mls @ 200 mls/hr IVPB Q6 [facility] PRN Reason: Protocol Stop: 12/09/16 00:01 Mesalamine (Pentasa) 1,000 mg PO QID [facility] Last Admin: 12/01/16 23:34 Dose: 1,000 mg Ondansetron HCl (Zofran Inj) 4 mg IVP Q8 PRN PRN Reason: Nausea/Vomiting Pantoprazole Sodium (Protonix Ec Tab) 40 mg PO DAILY [facility] Quetiapine Fumarate (Seroquel) 200 mg PO BID [facility] PRN Reason: Protocol Zolpidem Tartrate (Ambien) 5 mg PO HS [facility] PRN Reason: Protocol Last Admin: 12/01/16 23:35 Dose: 5 mg - Labs Labs: PT 12.8 Seconds (9.9-11.8) H 12/01/16 16:25 INR 1.19 (0.93-1.08) H 12/01/16 16:25 APTT 27.4 Seconds (23.7-30.8) 12/01/16 16:25
[2016-12-02] MEDS: Piperacillin/Tazobact 3.375 gm 100 ML IVPB SCH ×3 (06:31→19:03)
--- NOTE | 2016-12-02 07:28 | CP.PCM.PN ---
<Jada Cohen - Last Filed: 12/02/16 15:23> Subjective - Date & Time of Evaluation Date of Evaluation: 12/02/16 Time of Evaluation: 07:24 - Subjective Subjective: PROGRESS NOTE FOR SURGERY DR. MARTI Pt is seen and examined at bedside. She is c/o abd pain with a sensation of tenesmus. Pt denies having any N/V/D/C, fevers, chills. Objective - Vital Signs/Intake and Output Vital Signs (last 24 hours): Temp Pulse Resp BP Pulse Ox 98.1 F 71 20 115/89 99 12/02/16 05:28 12/02/16 05:28 12/02/16 05:28 12/02/16 05:28 12/01/16 22:17 Intake and Output: 12/02/16 12/02/16 06:59 18:59 Intake Total 120 Balance 120 - Medications Medications: Current Medications Acetaminophen (Tylenol 325mg Tab) 650 mg PO Q6H PRN PRN Reason: Pain, moderate (4-7) Clonazepam (Klonopin) 1 mg PO TID [facility] PRN Reason: Protocol Escitalopram Oxalate (Lexapro) 10 mg PO DAILY [facility] Gabapentin (Neurontin) 800 mg PO TID [facility] PRN Reason: Protocol Hydrocortisone (Cortizone 1% Cream) 0 gm TOP BID [facility] Last Admin: 12/01/16 22:09 Dose: Not Given Hydromorphone HCl (Dilaudid) 0.5 mg IVP Q3H PRN PRN Reason: Pain, severe (8-10) Potassium Chloride 20 meq/ (Sodium Chloride) 1,010 mls @ 100 mls/hr IV .Q10H6M [facility] Last Admin: 12/02/16 06:32 Dose: 100 mls/hr Vancomycin HCl (Vancomycin 1gm) 250 mls @ 167 mls/hr IVPB Q12H [facility] PRN Reason: Protocol Last Admin: 12/01/16 23:33 Dose: 167 mls/hr Piperacillin Sod/Tazobactam Sod (Zosyn 3.375 In Ns 100ml) 100 mls @ 200 mls/hr IVPB Q6 [facility] PRN Reason: Protocol Stop: 12/09/16 00:01 Last Admin: 12/02/16 06:31 Dose: 200 mls/hr Mesalamine (Pentasa) 1,000 mg PO QID [facility] Last Admin: 12/01/16 23:34 Dose: 1,000 mg Ondansetron HCl (Zofran Inj) 4 mg IVP Q8 PRN PRN Reason: Nausea/Vomiting Pantoprazole Sodium (Protonix Ec Tab) 40 mg PO DAILY [facility] Quetiapine Fumarate (Seroquel) 200 mg PO BID [facility] PRN Reason: Protocol Zolpidem Tartrate (Ambien) 5 mg PO HS [facility] PRN Reason: Protocol Last Admin: 12/01/16 23:35 Dose: 5 mg - Labs Labs: PT 12.8 Seconds (9.9-11.8) H 12/01/16 16:25 INR 1.19 (0.93-1.08) H 12/01/16 16:25 APTT 27.4 Seconds (23.7-30.8) 12/01/16 16:25 - Constitutional Appears: Non-toxic, No Acute Distress - Head Exam Head Exam: ATRAUMATIC - ENT Exam ENT Exam: Mucous Membranes Moist - Respiratory Exam Respiratory Exam: absent: Accessory Muscle Use, Respiratory Distress - GI/Abdominal Exam GI & Abdominal Exam: Soft. absent: Distended, Firm, Guarding, Rigid, Tenderness - Neurological Exam Neurological Exam: Alert, Awake, Oriented x3 - Psychiatric Exam Psychiatric exam: Normal Affect, Normal Mood - Skin Skin Exam: Dry, Intact, Normal Color, Warm Assessment and Plan - Assessment and Plan (Free Text) Assessment: 51F presents with abdominal pain, likely 2/2 Crohn's flare-up CT: pelvic abscess 4.3*6*6cm, thicken small bowel loops, right colon has moderate amount stool - strict Is&Os, monitor vitals, IVF - f/u GI recommendations - f/u IR recommendations concerning the pelvic abscess - ID, Dr. Mcneill is consulted as well regarding pelvic abscess. - Continue medical management Will discussed with Dr. Marti for further recs Jada Cohen , PGY1 <Dheeraj Marti - Last Filed: 12/10/16 20:45> Subjective - Date & Time of Evaluation Date of Evaluation: 12/02/16 Time of Evaluation: 16:15 Objective - Vital Signs/Intake and Output Vital Signs (last 24 hours): Temp Pulse Resp BP Pulse Ox 98 F 62 20 108/59 L 98 12/10/16 16:00 12/10/16 16:00 12/10/16 16:00 12/10/16 16:00 12/10/16 16:00 Intake and Output: 12/10/16 12/11/16 18:59 06:59 Intake Total 380 Balance 380 - Medications Medications: Current Medications Acetaminophen (Tylenol 325mg Tab) 650 mg PO Q6H PRN PRN Reason: Pain, moderate (4-7) Last Admin: 12/08/16 20:36 Dose: 650 mg Al Hydrox/Mg Hydrox/Simethicone (Maalox Plus 30 Ml) 30 ml PO DAILY PRN PRN Reason: Indigestion / Heartburn Clonazepam (Klonopin) 1 mg PO TID [facility] Stop: 12/15/16 18:01 Last Admin: 12/10/16 20:05 Dose: 1 mg Docusate Sodium (Colace) 100 mg PO TID [facility] Last Admin: 12/10/16 20:05 Dose: 100 mg Escitalopram Oxalate (Lexapro) 10 mg PO DAILY [facility] Last Admin: 12/10/16 10:08 Dose: 10 mg Gabapentin (Neurontin) 800 mg PO TID [facility] PRN Reason: Protocol Last Admin: 12/10/16 20:04 Dose: 800 mg Heparin Sodium (Porcine) (Heparin) 5,000 units SC Q12 [facility] PRN Reason: Protocol Last Admin: 12/10/16 09:49 Dose: Not Given Hydrocortisone (Cortizone 1% Cream) 0 gm TOP BID [facility] Last Admin: 12/10/16 20:06 Dose: 1 appl Hydrocortisone/Pramoxine (Proctofoam) 1 gm TOP TID [facility] Last Admin: 12/10/16 20:26 Dose: Not Given Meropenem 1g/NS 100mL IVPB (Meropenem 1g/Ns 100ml Ivpb) 100 mls @ 100 mls/hr IVPB Q8H [facility] Last Admin: 12/10/16 19:05 Dose: 100 mls/hr Ondansetron HCl (Zofran Inj) 4 mg IVP Q8 PRN PRN Reason: Nausea/Vomiting Oxycodone HCl (Oxycontin Extended Release Tab) 60 mg PO Q12 [facility] Oxycodone HCl (Oxycodone Immediate Release Tab) 15 mg PO BID PRN PRN Reason: Pain, moderate (4-7) Last Admin: 12/10/16 18:19 Dose: 15 mg Pantoprazole Sodium (Protonix Inj) 40 mg IVP DAILY [facility] Last Admin: 12/10/16 09:53 Dose: 40 mg Quetiapine Fumarate (Seroquel) 200 mg PO BID [facility] PRN Reason: Protocol Last Admin: 12/10/16 20:05 Dose: 200 mg Simethicone (Mylicon Chew Tab) 80 mg PO [facility] PRN PRN Reason: GI distress Last Admin: 12/09/16 17:12 Dose: 80 mg Zolpidem Tartrate (Ambien) 5 mg PO HS [facility] PRN Reason: Protocol Last Admin: 12/10/16 00:34 Dose: 5 mg - Labs Labs: 12/10/16 06:30 12/09/16 05:30 PT 13.4 Seconds (9.9-11.8) H 12/07/16 08:14 INR 1.24 (0.93-1.08) H 12/07/16 08:14 APTT 31.0 Seconds (23.7-30.8) H 12/07/16 08:14 Assessment and Plan - Assessment and Plan (Free Text) Assessment: I have seen and examined this patient myself. I agree with assessment and plan as per resident's note.
[2016-12-02] MEDS: Mesalamine ER Cap 500 MG PO SCH ×4 (09:38→22:47)
[2016-12-02] MEDS: Pantoprazole 40 mg EC Tab PO SCH (09:39)
[2016-12-02] MEDS: Vancomycin 1gm in NS 250ml 250 ML IVPB SCH ×2 (09:48→22:38)
[2016-12-02] MEDS: Hydrocortisone 1% Cream (30 GM) TOP SCH (11:45)
--- NOTE | 2016-12-02 13:37 | CP.PCM.CON ---
<Pete Duval - Last Filed: 12/02/16 13:28> History of Present Illness - History of Present Illness History of Present Illness: PGY4 GI Fellow Progress Note Patient is a 51yo female with PMHx significant for Crohn's disease (dx 10 years ago), non-adherent to medical therapy, psoriasis, anxiety/depression/biopolar disorder and multisubstance abuse who presents with worsening abdominal pain. She admits that she recently became homeless and left her medications at her mother's and has been unable to take all of her medications. Over the past week she has developed worsening diffuse abdominal cramping associated with nausea and 4-5 episodes of loose non-bloody stool per day. On arrival to our ED, a CT A /P revealed multiple thickened loops of small bowel along with a pelvic abscess. With regards to the patient's Crohn's disease, she states she has been maintained on pentasa daily, but is unaware of her dosing. She denies any prior endoscopic evaluation and does not have a primary gastroentertologist. States she was previously on Humira, primarily for psoriasis, but again cannot recall when this was or whom prescribed it. She had a right hemicolectomy approximately 10 years ago and had a vlad-rectal abscess drained in June of this past year. The patient states, quite frankly, that she is never going to have any endoscopic evaluation and in fact, has refused them in the past when offered. PMHx: See HPI PSHx: right hemicolectomy, appendectomy FHx: Denies Social: +tobacco, EtOH and cocaine abuse Endo: Denies prior evaluation Review of Systems - Constitutional Constitutional: Chills, Weakness. absent: Anorexia, Fever - EENT Eyes: absent: Change in Vision Nose/Mouth/Throat: absent: Sore Throat - Cardiovascular Cardiovascular: absent: Chest Pain, Dyspnea, Rapid Heart Rate - Respiratory Respiratory: absent: Cough, Hemoptysis, Excessive Mucous Production - Gastrointestinal Gastrointestinal: Abdominal Pain, Bloating, Cramping, Diarrhea, Loose Stools. absent: Constipation, Dyspepsia, Dysphagia, Heartburn, Hematemesis, Hematochezia , Melena, Nausea, Vomiting - Genitourinary Genitourinary: absent: Dysuria, Urinary Frequency, Urinary Urgency - Musculoskeletal Musculoskeletal: absent: Back Pain, Neck Pain - Integumentary Integumentary: Rash. absent: New Lesions - Neurological Neurological: absent: Dizziness, Numbness, Focal Weakness - Psychiatric Psychiatric: absent: Anxiety, Depression - Endocrine Endocrine: absent: Polydipsia, Polyphagia, Polyuria - Hematologic/Lymphatic Hematologic: absent: Easy Bleeding, Easy Bruising, Lymphadenopathy Past Patient History - Infectious Disease Hx of Infectious Diseases: None - Tetanus Immunizations Tetanus Immunization: Unknown - Past Medical History & Family History Past Medical History?: Yes - Past Social History Smoking Status: Former Smoker - CARDIAC Hx Cardiac Disorders: No - PULMONARY Hx Respiratory Disorders: Yes Hx Asthma: Yes Hx Pneumonia: Yes - NEUROLOGICAL Hx Neurological Disorder: No - HEENT Hx HEENT Problems: No - RENAL Hx Chronic Kidney Disease: No - ENDOCRINE/METABOLIC Hx Endocrine Disorders: No - HEMATOLOGICAL/ONCOLOGICAL Hx Blood Disorders: No - INTEGUMENTARY Hx Dermatological Problems: Yes Hx Eczema: Yes (flare up noted on stomach/back/bilateral upper and lower extremities) Hx Psoriasis: Yes - MUSCULOSKELETAL/RHEUMATOLOGICAL Hx Musculoskeletal Disorders: Yes Hx Falls: Yes Other/Comment: passed out x 1 - GASTROINTESTINAL Hx Gastrointestinal Disorders: Yes Hx Crohn's Disease: Yes (10 years ) - GENITOURINARY/GYNECOLOGICAL Hx Genitourinary Disorders: No - PSYCHIATRIC Hx Psychophysiologic Disorder: Yes Hx Anxiety: Yes - SURGICAL HISTORY Other/Comment: PT reports a Rt hemicolectomy without stoma placement done 5years ago. - ANESTHESIA Hx Anesthesia: Yes Hx Anesthesia Reactions: No Hx Malignant Hyperthermia: No Meds Allergies/Adverse Reactions: Allergies Allergy/AdvReac Type Severity Reaction Status Date / Time morphine Allergy RASH Verified 12/01/16 12:49 - Medications Medications: Current Medications Acetaminophen (Tylenol 325mg Tab) 650 mg PO Q6H PRN PRN Reason: Pain, moderate (4-7) Clonazepam (Klonopin) 1 mg PO TID [facility] PRN Reason: Protocol Last Admin: 12/02/16 09:38 Dose: 1 mg Escitalopram Oxalate (Lexapro) 10 mg PO DAILY [facility] Last Admin: 12/02/16 09:38 Dose: 10 mg Gabapentin (Neurontin) 800 mg PO TID [facility] PRN Reason: Protocol Last Admin: 12/02/16 09:39 Dose: 800 mg Hydrocortisone (Cortizone 1% Cream) 0 gm TOP BID [facility] Last Admin: 12/02/16 11:45 Dose: 1 appl Hydromorphone HCl (Dilaudid) 0.5 mg IVP Q3H PRN PRN Reason: Pain, severe (8-10) Last Admin: 12/02/16 11:43 Dose: 0.5 mg Potassium Chloride 20 meq/ (Sodium Chloride) 1,010 mls @ 100 mls/hr IV .Q10H6M [facility] Last Admin: 12/02/16 06:32 Dose: 100 mls/hr Vancomycin HCl (Vancomycin 1gm) 250 mls @ 167 mls/hr IVPB Q12H [facility] PRN Reason: Protocol Last Admin: 12/02/16 09:48 Dose: 167 mls/hr Piperacillin Sod/Tazobactam Sod (Zosyn 3.375 In Ns 100ml) 100 mls @ 200 mls/hr IVPB Q6 [facility] PRN Reason: Protocol Stop: 12/09/16 00:01 Last Admin: 12/02/16 12:13 Dose: 200 mls/hr Mesalamine (Pentasa) 1,000 mg PO QID [facility] Last Admin: 12/02/16 09:38 Dose: 1,000 mg Ondansetron HCl (Zofran Inj) 4 mg IVP Q8 PRN PRN Reason: Nausea/Vomiting Pantoprazole Sodium (Protonix Ec Tab) 40 mg PO DAILY [facility] Last Admin: 12/02/16 09:39 Dose: 40 mg Quetiapine Fumarate (Seroquel) 200 mg PO BID [facility] PRN Reason: Protocol Last Admin: 12/02/16 09:39 Dose: 200 mg Zolpidem Tartrate (Ambien) 5 mg PO HS [facility] PRN Reason: Protocol Last Admin: 12/01/16 23:35 Dose: 5 mg Physical Exam - Constitutional Appears: Non-toxic, No Acute Distress - Eye Exam Eye Exam: EOMI, PERRL - ENT Exam ENT Exam: Mucous Membranes Moist - Respiratory Exam Respiratory Exam: Clear to Auscultation Bilateral. absent: Rales, Rhonchi, Wheezes - Cardiovascular Exam Cardiovascular Exam: RRR, +S1, +S2 - GI/Abdominal Exam GI & Abdominal Exam: Normal Bowel Sounds, Soft, Tenderness. absent: Distended, Firm, Guarding, Rigid - Extremities Exam Extremities exam: Positive for: normal inspection. Negative for: pedal edema - Neurological Exam Neurological exam: Alert, Oriented x3 - Psychiatric Exam Psychiatric exam: Anxious, Depressed - Skin Skin Exam: Dry, Warm Results - Vital Signs Recent Vital Signs: Last Vital Signs Temp 99.0 F 12/02/16 08:08 Pulse 74 12/02/16 08:08 Resp 20 12/02/16 08:08 BP 98/55 L 12/02/16 08:08 Pulse Ox 97 12/02/16 08:08 - Labs Result Diagrams: 12/01/16 16:25 12/01/16 16:25 Assessment & Plan - Assessment and Plan (Free Text) Assessment: Patient is a 51yo female with PMHx significant for Crohn's disease (dx 10 years ago), non-adherent to medical therapy, psoriasis, anxiety/depression/biopolar disorder and multisubstance abuse who presents with worsening abdominal pain. -Acute Crohn's disease flare -Pelvic abscess -Homelessness -Anxiety/Depression/Bipolar d/o Plan: -The patient is known to our service and has a history of medical noncompliance and currently is not on therapy for her longstanding CD -Check stool cx and C diff -Recommend surgical/IR eval for pelvic abscess -IV ABX as ordered for pelvic abscess -Pentasa ordered; 1g PO QID -Patient refusing any endoscopic intervention -Recommend outpatient follow up with patient's prior GI physician or contacting her insurance for assistance obtaining a provider; pt stating she does not wish to seek outpatient follow up -Recommend psychiatry evaluation given depression/anxiety -Recommend social work/case management assistance given recent homelessness - Date & Time Date: 12/02/16 Time: 08:00 <Uli Moreno - Last Filed: 12/02/16 21:14> Meds - Medications Medications: Current Medications Acetaminophen (Tylenol 325mg Tab) 650 mg PO Q6H PRN PRN Reason: Pain, moderate (4-7) Clonazepam (Klonopin) 1 mg PO TID [facility] PRN Reason: Protocol Last Admin: 12/02/16 19:03 Dose: 1 mg Escitalopram Oxalate (Lexapro) 10 mg PO DAILY [facility] Last Admin: 12/02/16 09:38 Dose: 10 mg Gabapentin (Neurontin) 800 mg PO TID [facility] PRN Reason: Protocol Last Admin: 12/02/16 19:04 Dose: 800 mg Hydrocortisone (Cortizone 1% Cream) 0 gm TOP BID [facility] Last Admin: 12/02/16 11:45 Dose: 1 appl Hydromorphone HCl (Dilaudid) 0.5 mg IVP Q3H PRN PRN Reason: Pain, severe (8-10) Last Admin: 12/02/16 19:04 Dose: 0.5 mg Potassium Chloride 20 meq/ (Sodium Chloride) 1,010 mls @ 100 mls/hr IV .Q10H6M [facility] Last Admin: 12/02/16 06:32 Dose: 100 mls/hr Vancomycin HCl (Vancomycin 1gm) 250 mls @ 167 mls/hr IVPB Q12H [facility] PRN Reason: Protocol Last Admin: 12/02/16 09:48 Dose: 167 mls/hr Piperacillin Sod/Tazobactam Sod (Zosyn 3.375 In Ns 100ml) 100 mls @ 200 mls/hr IVPB Q6 [facility] PRN Reason: Protocol Stop: 12/09/16 00:01 Last Admin: 12/02/16 19:03 Dose: 200 mls/hr Mesalamine (Pentasa) 1,000 mg PO QID [facility] Last Admin: 12/02/16 19:04 Dose: 1,000 mg Ondansetron HCl (Zofran Inj) 4 mg IVP Q8 PRN PRN Reason: Nausea/Vomiting Pantoprazole Sodium (Protonix Ec Tab) 40 mg PO DAILY [facility] Last Admin: 12/02/16 09:39 Dose: 40 mg Quetiapine Fumarate (Seroquel) 200 mg PO BID [facility] PRN Reason: Protocol Last Admin: 12/02/16 19:03 Dose: 200 mg Zolpidem Tartrate (Ambien) 5 mg PO HS [facility] PRN Reason: Protocol Last Admin: 12/01/16 23:35 Dose: 5 mg Results - Vital Signs Recent Vital Signs: Last Vital Signs Temp 98.7 F 12/02/16 18:35 Pulse 68 12/02/16 18:35 Resp 16 12/02/16 18:35 BP 106/65 12/02/16 18:35 Pulse Ox 98 12/02/16 18:35 - Labs Result Diagrams: 12/02/16 15:52 12/02/16 15:52 Labs: Laboratory Results - last 24 hr 12/02/16 15:52 WBC 9.4 RBC 4.17 Hgb 11.5 L Hct 34.9 L MCV 83.7 MCH 27.6 MCHC 33.0 RDW 16.8 H Plt Count 347 MPV 10.2 Sodium 139 Potassium 3.1 L Chloride 104 Carbon Dioxide 24 Anion Gap 14 BUN 8 Creatinine 0.8 Est GFR ( Amer) > 60 Est GFR (Non-Af Amer) > 60 Random Glucose 91 Calcium 8.4 Attending/Attestation - Attestation I have personally seen and examined this patient.: Yes I have fully participated in the care of the patient.: Yes I have reviewed all pertinent clinical information: Yes Notes (Text): 12/02/16 21:08 51 year old female with h/o Crohn's disease, medical non-compliance, psoriasis, anxiety/depression/biopolar disorder and multisubstance abuse admitted with abdominal pain, pelvic abscess, and ileus. 1. Crohn's disease 2. Pelvic abscess 3. Ileus 4. Common bile duct dilation Plan: -recommend broad spectrum antibiotics -agree with IR or surgical drainage of abscess -IV hydration and electrolyte replacement -anti-emetics as needed -patient is completely non-compliant -she refuses endoscopy categorically -she does not express interest in pursuing half-way medical therapy for Crohn' s disease -She may restart humira for psoriasis -she has a CBD dilation, uncertain etiology -recommend elective MRCP when clinically improved
--- NOTE | 2016-12-02 14:30 | CP.PCM.PN ---
<Demian Desai - Last Filed: 12/02/16 14:58> Subjective - Date & Time of Evaluation Date of Evaluation: 12/02/16 Time of Evaluation: 07:17 - Subjective Subjective: Pt seen and examined. Pt reports that she is nauseous. She also complaints of abdominal pain and and burning around her rectum. She reports that she had two episodes of diarrhea yesterday. Pt denies fever, chills, chest pain, shortness of breath. Objective - Vital Signs/Intake and Output Vital Signs (last 24 hours): Temp Pulse Resp BP Pulse Ox 99.0 F 74 20 98/55 L 97 12/02/16 08:08 12/02/16 08:08 12/02/16 08:08 12/02/16 08:08 12/02/16 08:08 Intake and Output: 12/02/16 12/02/16 06:59 18:59 Intake Total 120 Balance 120 - Medications Medications: Current Medications Acetaminophen (Tylenol 325mg Tab) 650 mg PO Q6H PRN PRN Reason: Pain, moderate (4-7) Clonazepam (Klonopin) 1 mg PO TID [facility] PRN Reason: Protocol Last Admin: 12/02/16 09:38 Dose: 1 mg Escitalopram Oxalate (Lexapro) 10 mg PO DAILY [facility] Last Admin: 12/02/16 09:38 Dose: 10 mg Gabapentin (Neurontin) 800 mg PO TID [facility] PRN Reason: Protocol Last Admin: 12/02/16 09:39 Dose: 800 mg Hydrocortisone (Cortizone 1% Cream) 0 gm TOP BID [facility] Last Admin: 12/02/16 11:45 Dose: 1 appl Hydromorphone HCl (Dilaudid) 0.5 mg IVP Q3H PRN PRN Reason: Pain, severe (8-10) Last Admin: 12/02/16 11:43 Dose: 0.5 mg Potassium Chloride 20 meq/ (Sodium Chloride) 1,010 mls @ 100 mls/hr IV .Q10H6M [facility] Last Admin: 12/02/16 06:32 Dose: 100 mls/hr Vancomycin HCl (Vancomycin 1gm) 250 mls @ 167 mls/hr IVPB Q12H [facility] PRN Reason: Protocol Last Admin: 12/02/16 09:48 Dose: 167 mls/hr Piperacillin Sod/Tazobactam Sod (Zosyn 3.375 In Ns 100ml) 100 mls @ 200 mls/hr IVPB Q6 [facility] PRN Reason: Protocol Stop: 12/09/16 00:01 Last Admin: 12/02/16 12:13 Dose: 200 mls/hr Mesalamine (Pentasa) 1,000 mg PO QID [facility] Last Admin: 12/02/16 09:38 Dose: 1,000 mg Ondansetron HCl (Zofran Inj) 4 mg IVP Q8 PRN PRN Reason: Nausea/Vomiting Pantoprazole Sodium (Protonix Ec Tab) 40 mg PO DAILY [facility] Last Admin: 12/02/16 09:39 Dose: 40 mg Quetiapine Fumarate (Seroquel) 200 mg PO BID [facility] PRN Reason: Protocol Last Admin: 12/02/16 09:39 Dose: 200 mg Zolpidem Tartrate (Ambien) 5 mg PO HS [facility] PRN Reason: Protocol Last Admin: 12/01/16 23:35 Dose: 5 mg - Labs Labs: PT 12.8 Seconds (9.9-11.8) H 12/01/16 16:25 INR 1.19 (0.93-1.08) H 12/01/16 16:25 APTT 27.4 Seconds (23.7-30.8) 12/01/16 16:25 - Constitutional Appears: No Acute Distress - Head Exam Head Exam: ATRAUMATIC, NORMOCEPHALIC - Eye Exam Eye Exam: EOMI, PERRL - ENT Exam ENT Exam: Mucous Membranes Moist. absent: Mucous Membranes Dry - Neck Exam Neck Exam: Full ROM. absent: Lymphadenopathy - Respiratory Exam Respiratory Exam: Clear to Ausculation Bilateral. absent: Rales, Rhonchi, Wheezes - Cardiovascular Exam Cardiovascular Exam: +S1, +S2. absent: Gallop, Rubs, Murmur - GI/Abdominal Exam GI & Abdominal Exam: Soft, Tenderness. absent: Distended, Guarding, Rigid - Extremities Exam Extremities Exam: absent: Pedal Edema - Neurological Exam Neurological Exam: Alert, Awake - Psychiatric Exam Psychiatric exam: Anxious Assessment and Plan - Assessment and Plan (Free Text) Assessment: Pelvic Abscess: Afrebrile, nontachycardic No leukocytosis CT Abd/Pelvis: pelvic abscess, increasing adenopathy infectious vs neoplastic; ileus and/or partial bowel obstruction; thickened small bowel loops; dilated common bile duct distal obstructing lesion cannot be ruled out; rectal wall thickening inflammation/infection vs neoplasm Surgery, Dr. Marti, consulted. Help appreciated. Interventional radiology, Dr. Metcalf, consulted. Help appreciated. Infectious Disease, Dr. Mcneill, consulted. Help appreciated. Zosyn 3.375 gm IV q6h Vancomycin 1 gm q12h Pt scheduled for IR drainage with Dr. Metcalf this afternoon Crohn's Disease Flare: GI, Dr. Plascencia, consulted. Help appreciated. Stool culture and c.diff ag pending As per GI, pt refusing endoscopic intervention and pt has a hx of noncompliance with meds and does not wish to seek outpt follow up Pentasa 1000 mg po QID Hydrdocortisone cream on rectum Dialudid 0.5 mg IV q3h prn for pain Zofran 4 mg IV q8h prn for nausea Cough: CXR - no evidence of pneumonia Anxiety/Depression: Psychiatry, Dr. Almaguer, consulted. Help appreciated. Klonopin 1 mg po tid Lexapro 10 mg po qd Seroquel 200 mg po bid Neurontin 800 mg po tid Ambien 5 mg po hs Hypokalemia: KCl 20 meq in NS 100 cc/hr Prophylactic Measures: GI: Protonix 40 mg po qd DVT: SCDs <Cristina Haley - Last Filed: 12/02/16 19:02> Objective - Vital Signs/Intake and Output Vital Signs (last 24 hours): Temp Pulse Resp BP Pulse Ox 98.7 F 68 16 106/65 98 12/02/16 18:35 12/02/16 18:35 12/02/16 18:35 12/02/16 18:35 12/02/16 18:35 Intake and Output: 12/02/16 12/02/16 06:59 18:59 Intake Total 120 395 Balance 120 395 - Medications Medications: Current Medications Acetaminophen (Tylenol 325mg Tab) 650 mg PO Q6H PRN PRN Reason: Pain, moderate (4-7) Clonazepam (Klonopin) 1 mg PO TID [facility] PRN Reason: Protocol Last Admin: 12/02/16 14:27 Dose: 1 mg Escitalopram Oxalate (Lexapro) 10 mg PO DAILY [facility] Last Admin: 12/02/16 09:38 Dose: 10 mg Gabapentin (Neurontin) 800 mg PO TID [facility] PRN Reason: Protocol Last Admin: 12/02/16 14:27 Dose: 800 mg Hydrocortisone (Cortizone 1% Cream) 0 gm TOP BID [facility] Last Admin: 12/02/16 11:45 Dose: 1 appl Hydromorphone HCl (Dilaudid) 0.5 mg IVP Q3H PRN PRN Reason: Pain, severe (8-10) Last Admin: 12/02/16 14:43 Dose: 0.5 mg Potassium Chloride 20 meq/ (Sodium Chloride) 1,010 mls @ 100 mls/hr IV .Q10H6M [facility] Last Admin: 12/02/16 06:32 Dose: 100 mls/hr Vancomycin HCl (Vancomycin 1gm) 250 mls @ 167 mls/hr IVPB Q12H [facility] PRN Reason: Protocol Last Admin: 12/02/16 09:48 Dose: 167 mls/hr Piperacillin Sod/Tazobactam Sod (Zosyn 3.375 In Ns 100ml) 100 mls @ 200 mls/hr IVPB Q6 [facility] PRN Reason: Protocol Stop: 12/09/16 00:01 Last Admin: 12/02/16 12:13 Dose: 200 mls/hr Mesalamine (Pentasa) 1,000 mg PO QID [facility] Last Admin: 12/02/16 15:12 Dose: 1,000 mg Ondansetron HCl (Zofran Inj) 4 mg IVP Q8 PRN PRN Reason: Nausea/Vomiting Pantoprazole Sodium (Protonix Ec Tab) 40 mg PO DAILY [facility] Last Admin: 12/02/16 09:39 Dose: 40 mg Quetiapine Fumarate (Seroquel) 200 mg PO BID [facility] PRN Reason: Protocol Last Admin: 12/02/16 09:39 Dose: 200 mg Zolpidem Tartrate (Ambien) 5 mg PO HS [facility] PRN Reason: Protocol Last Admin: 12/01/16 23:35 Dose: 5 mg - Labs Labs: 12/02/16 15:52 12/02/16 15:52 PT 12.8 Seconds (9.9-11.8) H 12/01/16 16:25 INR 1.19 (0.93-1.08) H 12/01/16 16:25 APTT 27.4 Seconds (23.7-30.8) 12/01/16 16:25 Assessment and Plan - Assessment and Plan (Free Text) Assessment: attending note; Patient seen and examined with resident in room 563. Patient is a 51-year-old female with a history of Crohn's disease, perirectal abscess, bipolar disorder, drug abuse, Opiate dependency and noncompliance with follow-up is admitted with abdominal pain. CT showed pelvic Cyst with lymphadenopathy, partial obstruction consistent with Crohn' and dilated CBD. GI/surgery evaluation requested. Case discussed with IR for perirectal abscess drainage. Bipolar disorder; psychiatric evaluation requested. Currently patient doesn't have a PMD and GI to follow-up with. Might need referral to tertiary Center for Colorectal surgery. Attending/Attestation - Attestation I have personally seen and examined this patient.: Yes I have fully participated in the care of the patient.: Yes I have reviewed all pertinent clinical information, including history, physical exam and plan: Yes
--- NOTE | 2016-12-02 15:37 | CP.PCM.CON ---
History of Present Illness - History of Present Illness History of Present Illness: 51 year old female with PMH of Crohn's disease, asthma, history of pneumonia, eczema, history of psoriasis, anxiety, history of depression, bipolar disorder, history of alcohol abuse, history of right hemicolectomy, history of perirectal abscess, came in complaining of worsening lower abdominal pain for the past 2-3 days associated with nausea and vomiting. The patient denies diarrhea, no fever or chills, no headache or dizziness, no chest pain, no SOB, no cough or colds, no sore throat, no dysphagia, no dysuria, no dysphagia. In the ED, CT abdomen and pelvis revealed pelvic abscess. Infectious Diseases consult is requested to further evaluate and manage. The patient denies being on antibiotics in the past 3 months. She denies animal contacts, no recent travel outside of [place] in the past 3 months. Review of Systems - Review of Systems All systems: reviewed and no additional remarkable complaints except (as per HPI ) Past Patient History - Infectious Disease Hx of Infectious Diseases: None - Tetanus Immunizations Tetanus Immunization: Unknown - Past Medical History & Family History Past Medical History?: Yes Past Family History: Reviewed and not pertinent - Past Social History Smoking Status: Current Some Days Smoker Alcohol: > 2 Drinks/Day - CARDIAC Hx Cardiac Disorders: No - PULMONARY Hx Respiratory Disorders: Yes Hx Asthma: Yes Hx Pneumonia: Yes - NEUROLOGICAL Hx Neurological Disorder: No - HEENT Hx HEENT Problems: No - RENAL Hx Chronic Kidney Disease: No - ENDOCRINE/METABOLIC Hx Endocrine Disorders: No - HEMATOLOGICAL/ONCOLOGICAL Hx Blood Disorders: No - INTEGUMENTARY Hx Dermatological Problems: Yes Hx Eczema: Yes (flare up noted on stomach/back/bilateral upper and lower extremities) Hx Psoriasis: Yes - MUSCULOSKELETAL/RHEUMATOLOGICAL Hx Musculoskeletal Disorders: Yes Hx Falls: Yes Other/Comment: passed out x 1 - GASTROINTESTINAL Hx Gastrointestinal Disorders: Yes Hx Crohn's Disease: Yes (10 years ) - GENITOURINARY/GYNECOLOGICAL Hx Genitourinary Disorders: No - PSYCHIATRIC Hx Psychophysiologic Disorder: Yes Hx Anxiety: Yes Hx Substance Use: No - SURGICAL HISTORY Other/Comment: PT reports a Rt hemicolectomy without stoma placement done 5years ago. - ANESTHESIA Hx Anesthesia: Yes Hx Anesthesia Reactions: No Hx Malignant Hyperthermia: No Meds Allergies/Adverse Reactions: Allergies Allergy/AdvReac Type Severity Reaction Status Date / Time morphine Allergy RASH Verified 12/01/16 12:49 - Medications Medications: Current Medications Acetaminophen (Tylenol 325mg Tab) 650 mg PO Q6H PRN PRN Reason: Pain, moderate (4-7) Clonazepam (Klonopin) 1 mg PO TID [facility] PRN Reason: Protocol Escitalopram Oxalate (Lexapro) 10 mg PO DAILY [facility] Gabapentin (Neurontin) 800 mg PO TID [facility] PRN Reason: Protocol Hydrocortisone (Cortizone 1% Cream) 0 gm TOP BID [facility] Last Admin: 12/01/16 22:09 Dose: Not Given Hydromorphone HCl (Dilaudid) 0.5 mg IVP Q4H PRN PRN Reason: Pain, severe (8-10) Last Admin: 12/02/16 00:15 Dose: 0.5 mg Potassium Chloride 20 meq/ (Sodium Chloride) 1,010 mls @ 100 mls/hr IV .Q10H6M [facility] Vancomycin HCl (Vancomycin 1gm) 250 mls @ 167 mls/hr IVPB Q12H [facility] PRN Reason: Protocol Last Admin: 12/01/16 23:33 Dose: 167 mls/hr Piperacillin Sod/Tazobactam Sod (Zosyn 3.375 In Ns 100ml) 100 mls @ 200 mls/hr IVPB Q6 [facility] PRN Reason: Protocol Stop: 12/09/16 00:01 Mesalamine (Pentasa) 1,000 mg PO QID [facility] Last Admin: 12/01/16 23:34 Dose: 1,000 mg Ondansetron HCl (Zofran Inj) 4 mg IVP Q8 PRN PRN Reason: Nausea/Vomiting Pantoprazole Sodium (Protonix Ec Tab) 40 mg PO DAILY [facility] Quetiapine Fumarate (Seroquel) 200 mg PO BID [facility] PRN Reason: Protocol Zolpidem Tartrate (Ambien) 5 mg PO HS [facility] PRN Reason: Protocol Last Admin: 12/01/16 23:35 Dose: 5 mg Physical Exam - Constitutional Appears: Non-toxic, No Acute Distress - Head Exam Head Exam: NORMAL INSPECTION - ENT Exam ENT Exam: Mucous Membranes Moist - Neck Exam Neck exam: Negative for: Lymphadenopathy, Meningismus - Cardiovascular Exam Cardiovascular Exam: +S1, +S2 - GI/Abdominal Exam GI & Abdominal Exam: Soft. absent: Tenderness Results - Vital Signs Recent Vital Signs: Last Vital Signs Temp 97.9 F 12/01/16 12:51 Pulse 75 12/01/16 22:17 Resp 16 12/01/16 22:17 BP 110/59 L 12/01/16 22:17 Pulse Ox 99 12/01/16 22:17 - Labs Result Diagrams: 12/01/16 16:25 12/01/16 16:25 Assessment & Plan - Assessment and Plan (Free Text) Plan: Assessment Pelvic abscess, probably related to the patient's Crohn's disease asthma history of pneumonia eczema history of psoriasis anxiety history of depression bipolar disorder history of alcohol abuse history of right hemicolectomy history of perirectal abscess Plan Started the patient on Vancomycin and Zosyn pending blood cx and plan for drainage of the pelvic abscess Will monitor clinically
[2016-12-02 15:57] LABS: HEMATOCRIT 34.9 % (36.0-48.0); MEAN CELL VOLUME 83.7 fL (80.0-105.0); MEAN CORPUSCULAR HEMOGLOBIN 27.6 pg (25.0-35.0); MEAN PLATELET VOLUME 10.2 fl (7.0-11.0); RED CELL DISTRIBUTION WIDTH 16.8 % (11.5-14.5); WHITE BLOOD COUNT 9.4 10^3/ul (4.5-11.0)
[2016-12-02 16:08] LABS: BLOOD UREA NITROGEN 8 mg/dL (7-21); CALCIUM 8.4 mg/dL (8.4-10.5); CARBON DIOXIDE 24 mmol/L (21-33); CHLORIDE 104 mmol/L (98-107); GFR AFRICAN-AMERICAN > 60; GLUCOSE,RANDOM 91 mg/dL (70-110); POTASSIUM 3.1 mmol/L (3.6-5.0); SODIUM 139 mmol/L (132-148)
[2016-12-02] MEDS ORDERED: Midazolam 2 MG/2 ML VIAL ONE (16:34)
--- NOTE | 2016-12-02 18:28 | CT ---
PROCEDURE: CT-guided perirectal abscess drainage. HISTORY: Recurrent perirectal abscess. Poorly controlled Crohn's disease in a noncompliant patient. Needs drainage. PHYSICIAN(S): Derrell Metcalf MD. TECHNIQUE: The relative risks and indications for the procedure were explained to the patient and informed consent obtained. The patient was placed in a prone position on the CT scanner and preliminary images through the pelvis performed. This revealed a undulated 6 cm perirectal abscess that is identical to the appearance in June,.. A left trans gluteal approach was selected and the area prepped/draped in the usual sterile fashion. Conscious sedation and monitoring were provided throughout the procedure by nurse. An 18-gauge needle was advanced into the collection and 4 cc of thick purulent fluid aspirated. A specimen was sent to microbiology. A 0.035 J-wire was coiled within the fluid collection. The cavity is small with a thick wall. Sequential dilatation was performed with a 12 [place] dilator. Multiple attempts at advancing a 12 [place] drain over the guidewire into the cavity were unsuccessful. The guidewire was kinked and the catheter would not advance through the thick walled cavity. The procedure was discontinued at this point. IMPRESSION: 1. Attempted CT-guided drainage of a thick-walled recurrent perirectal abscess. A 12 [place] catheter could not be successfully advanced through the wall and coiled within the abscess cavity. 2. CT-guided aspiration. A micro specimen was sent. 3. The patient would likely benefit from a colorectal specialist referral to evaluate for definitive treatment.
[2016-12-03] MEDS: Piperacillin/Tazobact 3.375 gm 100 ML IVPB SCH ×4 (01:12→18:42)
[2016-12-03] MEDS: HYDROmorphone 0.5 mg/0.5 ml ISec IVP PRN ×7 (03:30→22:51)
--- NOTE | 2016-12-03 05:42 | CP.PCM.PN ---
Subjective - Date & Time of Evaluation Date of Evaluation: 12/03/16 Time of Evaluation: 05:41 - Subjective Subjective: # 22 angiocath was inserted in right forearm. Dx:Poor venous access. Objective - Vital Signs/Intake and Output Vital Signs (last 24 hours): Temp Pulse Resp BP Pulse Ox 98.7 F 68 16 106/65 98 12/02/16 18:35 12/02/16 18:35 12/02/16 18:35 12/02/16 18:35 12/02/16 18:35 Intake and Output: 12/02/16 12/03/16 18:59 06:59 Intake Total 395 480 Balance 395 480 - Medications Medications: Current Medications Acetaminophen (Tylenol 325mg Tab) 650 mg PO Q6H PRN PRN Reason: Pain, moderate (4-7) Clonazepam (Klonopin) 1 mg PO TID [facility] PRN Reason: Protocol Last Admin: 12/02/16 19:03 Dose: 1 mg Escitalopram Oxalate (Lexapro) 10 mg PO DAILY [facility] Last Admin: 12/02/16 09:38 Dose: 10 mg Gabapentin (Neurontin) 800 mg PO TID [facility] PRN Reason: Protocol Last Admin: 12/02/16 19:04 Dose: 800 mg Hydrocortisone (Cortizone 1% Cream) 0 gm TOP BID [facility] Last Admin: 12/02/16 11:45 Dose: 1 appl Hydromorphone HCl (Dilaudid) 0.5 mg IVP Q3H PRN PRN Reason: Pain, severe (8-10) Last Admin: 12/03/16 03:30 Dose: 0.5 mg Potassium Chloride 20 meq/ (Sodium Chloride) 1,010 mls @ 100 mls/hr IV .Q10H6M [facility] Last Admin: 12/02/16 22:41 Dose: 100 mls/hr Vancomycin HCl (Vancomycin 1gm) 250 mls @ 167 mls/hr IVPB Q12H [facility] PRN Reason: Protocol Last Admin: 12/02/16 22:38 Dose: 167 mls/hr Piperacillin Sod/Tazobactam Sod (Zosyn 3.375 In Ns 100ml) 100 mls @ 200 mls/hr IVPB Q6 [facility] PRN Reason: Protocol Stop: 12/09/16 00:01 Last Admin: 12/03/16 01:12 Dose: 200 mls/hr Mesalamine (Pentasa) 1,000 mg PO QID [facility] Last Admin: 12/02/16 22:47 Dose: 1,000 mg Ondansetron HCl (Zofran Inj) 4 mg IVP Q8 PRN PRN Reason: Nausea/Vomiting Pantoprazole Sodium (Protonix Ec Tab) 40 mg PO DAILY [facility] Last Admin: 12/02/16 09:39 Dose: 40 mg Quetiapine Fumarate (Seroquel) 200 mg PO BID [facility] PRN Reason: Protocol Last Admin: 12/02/16 19:03 Dose: 200 mg Zolpidem Tartrate (Ambien) 5 mg PO HS [facility] PRN Reason: Protocol Last Admin: 12/02/16 22:37 Dose: 5 mg - Labs Labs: 12/02/16 15:52 12/02/16 15:52 PT 12.8 Seconds (9.9-11.8) H 12/01/16 16:25 INR 1.19 (0.93-1.08) H 12/01/16 16:25 APTT 27.4 Seconds (23.7-30.8) 12/01/16 16:25
[2016-12-03 06:44] LABS: ADD MANUAL DIFF? NO
[2016-12-03 07:10] LABS: ALB/GLOB RATIO 0.7 (1.1-1.8); ALKALINE PHOSPHATASE 75 U/L (38-133); ALT/SGPT 17 U/L (7-56); AST/SGOT 18 U/L (15-39); BILIRUBIN,TOTAL 0.5 mg/dL (0.2-1.3); BLOOD UREA NITROGEN 6 mg/dL (7-21); CALCIUM 8.2 mg/dL (8.4-10.5); CARBON DIOXIDE 24 mmol/L (21-33); CHLORIDE 105 mmol/L (98-107); GFR AFRICAN-AMERICAN > 60; GLUCOSE,RANDOM 89 mg/dL (70-110); MAGNESIUM 1.6 mg/dL (1.7-2.2); PHOSPHOROUS 3.1 mg/dL (2.5-4.5); POTASSIUM 3.1 mmol/L (3.6-5.0); SODIUM 138 mmol/L (132-148); TOTAL PROTEIN 5.7 g/dL (5.8-8.3)
[2016-12-03 07:13] LABS: BASO # 0.03 K/mm3 (0.0-2.0); BASO % 0.3 % (0.0-3.0); EOS # 0.5 (0.0-0.7); EOS % 4.9 % (1.5-5.0); GRAN # 6.61 (1.4-6.5); GRAN % 68.7 % (50.0-68.0); HEMATOCRIT 30.2 % (36.0-48.0); LYMPH # 1.6 (1.2-3.4); LYMPH % 16.8 % (22.0-35.0); MEAN CELL VOLUME 83.4 fL (80.0-105.0); MEAN CORPUSCULAR HEMOGLOBIN 27.9 pg (25.0-35.0); MEAN CORPUSCULAR HGB CONC 33.4 g/dl (31.0-37.0); MEAN PLATELET VOLUME 10.2 fl (7.0-11.0); MONO # 0.9 (0.1-0.6); MONO % 9.3 % (1.0-6.0); PLATELET COUNT 395 10^3/uL (120.0-450.0); RED CELL DISTRIBUTION WIDTH 16.9 % (11.5-14.5); WHITE BLOOD COUNT 9.6 10^3/ul (4.5-11.0)
[2016-12-03] MEDS ORDERED: Magnesium Oxide 400 mg Tab UD PO ONE (07:35)
[2016-12-03] MEDS ORDERED: Potassium Chloride 20 mEq ER Tab PO ONE (08:00)
--- NOTE | 2016-12-03 08:10 | CP.PCM.PN ---
<Jada Cohen - Last Filed: 12/03/16 12:49> Subjective - Date & Time of Evaluation Date of Evaluation: 12/03/16 Time of Evaluation: 08:07 - Subjective Subjective: SURGERY PROGRESS NOTE FOR DR. BOUCHER Pt is seen and examined at bedside. Pt has IR drainage of perirectal abscess drained yesterday. Denies having fevers, chills. She does c/o of mild nausea and abd pain. She also c/o of rectal pain. Pt states that she had one episode of very loose stools this morning and constantly has leakage from her rectum. The leakage is mostly stool. Pt is tolerating liquid diet and request to have diet advanced. Objective - Vital Signs/Intake and Output Vital Signs (last 24 hours): Temp Pulse Resp BP Pulse Ox 99.3 F 62 18 95/62 L 97 12/03/16 04:54 12/03/16 04:54 12/03/16 04:54 12/03/16 04:54 12/03/16 04:54 Intake and Output: 12/03/16 12/03/16 06:59 18:59 Intake Total 480 Balance 480 - Medications Medications: Current Medications Acetaminophen (Tylenol 325mg Tab) 650 mg PO Q6H PRN PRN Reason: Pain, moderate (4-7) Clonazepam (Klonopin) 1 mg PO TID [facility] PRN Reason: Protocol Last Admin: 12/02/16 19:03 Dose: 1 mg Escitalopram Oxalate (Lexapro) 10 mg PO DAILY [facility] Last Admin: 12/02/16 09:38 Dose: 10 mg Gabapentin (Neurontin) 800 mg PO TID [facility] PRN Reason: Protocol Last Admin: 12/02/16 19:04 Dose: 800 mg Hydrocortisone (Cortizone 1% Cream) 0 gm TOP BID [facility] Last Admin: 12/02/16 11:45 Dose: 1 appl Hydromorphone HCl (Dilaudid) 0.5 mg IVP Q3H PRN PRN Reason: Pain, severe (8-10) Last Admin: 12/03/16 06:45 Dose: 0.5 mg Potassium Chloride 20 meq/ (Sodium Chloride) 1,010 mls @ 100 mls/hr IV .Q10H6M [facility] Last Admin: 12/03/16 06:15 Dose: Not Given Vancomycin HCl (Vancomycin 1gm) 250 mls @ 167 mls/hr IVPB Q12H [facility] PRN Reason: Protocol Last Admin: 12/02/16 22:38 Dose: 167 mls/hr Piperacillin Sod/Tazobactam Sod (Zosyn 3.375 In Ns 100ml) 100 mls @ 200 mls/hr IVPB Q6 [facility] PRN Reason: Protocol Stop: 12/09/16 00:01 Last Admin: 12/03/16 06:13 Dose: 200 mls/hr Mesalamine (Pentasa) 1,000 mg PO QID [facility] Last Admin: 12/02/16 22:47 Dose: 1,000 mg Ondansetron HCl (Zofran Inj) 4 mg IVP Q8 PRN PRN Reason: Nausea/Vomiting Pantoprazole Sodium (Protonix Ec Tab) 40 mg PO DAILY [facility] Last Admin: 12/02/16 09:39 Dose: 40 mg Quetiapine Fumarate (Seroquel) 200 mg PO BID [facility] PRN Reason: Protocol Last Admin: 12/02/16 19:03 Dose: 200 mg Zolpidem Tartrate (Ambien) 5 mg PO HS [facility] PRN Reason: Protocol Last Admin: 12/02/16 22:37 Dose: 5 mg - Labs Labs: 12/03/16 06:30 12/03/16 06:30 PT 12.8 Seconds (9.9-11.8) H 12/01/16 16:25 INR 1.19 (0.93-1.08) H 12/01/16 16:25 APTT 27.4 Seconds (23.7-30.8) 12/01/16 16:25 - Constitutional Appears: Non-toxic, No Acute Distress - Head Exam Head Exam: ATRAUMATIC - ENT Exam ENT Exam: Mucous Membranes Moist - Respiratory Exam Respiratory Exam: absent: Accessory Muscle Use, Respiratory Distress - GI/Abdominal Exam GI & Abdominal Exam: Soft. absent: Distended, Firm, Guarding, Rigid, Tenderness - Neurological Exam Neurological Exam: Alert, Awake, Oriented x3 - Psychiatric Exam Psychiatric exam: Normal Affect, Normal Mood - Skin Skin Exam: Dry, Intact, Normal Color, Warm Assessment and Plan - Assessment and Plan (Free Text) Assessment: 51F presents with PMHx of Crohn's disease is seen for Crohn flareup and pelvic abscess. Yesterday, pt had perirectal abscess drained by IR. Drained only 4 cc of fluid. - strict Is&Os, monitor vitals, IVF - f/u GI recommendations - IR drainage yesterday - Abx per ID recs - Continue medical management - Will consider advancing diet as tolerated Will discussed with Dr. So presents with abdominal pain, likely 2/2 Crohn's flare-up CT: pelvic abscess 4.3*6*6cm, thicken small bowel loops, right colon has moderate amount stool - strict Is&Os, monitor vitals, IVF - f/u GI recommendations - f/u IR recommendations concerning the pelvic abscess - ID, Dr. Mcneill is consulted as well regarding pelvic abscess. - Continue medical management Will discussed with Dr. Boucher for further recs Jada Cohen , PGY1 for further recs Jada Cohen , PGY1 <Dheeraj Boucher - Last Filed: 12/10/16 20:46> Subjective - Date & Time of Evaluation Date of Evaluation: 12/03/16 Time of Evaluation: 17:20 Objective - Vital Signs/Intake and Output Vital Signs (last 24 hours): Temp Pulse Resp BP Pulse Ox 98 F 62 20 108/59 L 98 12/10/16 16:00 12/10/16 16:00 12/10/16 16:00 12/10/16 16:00 12/10/16 16:00 Intake and Output: 12/10/16 12/11/16 18:59 06:59 Intake Total 380 Balance 380 - Medications Medications: Current Medications Acetaminophen (Tylenol 325mg Tab) 650 mg PO Q6H PRN PRN Reason: Pain, moderate (4-7) Last Admin: 12/08/16 20:36 Dose: 650 mg Al Hydrox/Mg Hydrox/Simethicone (Maalox Plus 30 Ml) 30 ml PO DAILY PRN PRN Reason: Indigestion / Heartburn Clonazepam (Klonopin) 1 mg PO TID [facility] Stop: 12/15/16 18:01 Last Admin: 12/10/16 20:05 Dose: 1 mg Docusate Sodium (Colace) 100 mg PO TID [facility] Last Admin: 12/10/16 20:05 Dose: 100 mg Escitalopram Oxalate (Lexapro) 10 mg PO DAILY [facility] Last Admin: 12/10/16 10:08 Dose: 10 mg Gabapentin (Neurontin) 800 mg PO TID [facility] PRN Reason: Protocol Last Admin: 12/10/16 20:04 Dose: 800 mg Heparin Sodium (Porcine) (Heparin) 5,000 units SC Q12 [facility] PRN Reason: Protocol Last Admin: 12/10/16 09:49 Dose: Not Given Hydrocortisone (Cortizone 1% Cream) 0 gm TOP BID [facility] Last Admin: 12/10/16 20:06 Dose: 1 appl Hydrocortisone/Pramoxine (Proctofoam) 1 gm TOP TID [facility] Last Admin: 12/10/16 20:26 Dose: Not Given Meropenem 1g/NS 100mL IVPB (Meropenem 1g/Ns 100ml Ivpb) 100 mls @ 100 mls/hr IVPB Q8H [facility] Last Admin: 12/10/16 19:05 Dose: 100 mls/hr Ondansetron HCl (Zofran Inj) 4 mg IVP Q8 PRN PRN Reason: Nausea/Vomiting Oxycodone HCl (Oxycontin Extended Release Tab) 60 mg PO Q12 [facility] Oxycodone HCl (Oxycodone Immediate Release Tab) 15 mg PO BID PRN PRN Reason: Pain, moderate (4-7) Last Admin: 12/10/16 18:19 Dose: 15 mg Pantoprazole Sodium (Protonix Inj) 40 mg IVP DAILY [facility] Last Admin: 12/10/16 09:53 Dose: 40 mg Quetiapine Fumarate (Seroquel) 200 mg PO BID [facility] PRN Reason: Protocol Last Admin: 12/10/16 20:05 Dose: 200 mg Simethicone (Mylicon Chew Tab) 80 mg PO [facility] PRN PRN Reason: GI distress Last Admin: 12/09/16 17:12 Dose: 80 mg Zolpidem Tartrate (Ambien) 5 mg PO [facility] PRN Reason: Protocol Last Admin: 12/10/16 00:34 Dose: 5 mg - Labs Labs: 12/10/16 06:30 12/09/16 05:30 PT 13.4 Seconds (9.9-11.8) H 12/07/16 08:14 INR 1.24 (0.93-1.08) H 12/07/16 08:14 APTT 31.0 Seconds (23.7-30.8) H 12/07/16 08:14 Assessment and Plan - Assessment and Plan (Free Text) Assessment: I have seen and examined this patient myself. I agree with assessment and plan as per resident's note.
--- NOTE | 2016-12-03 09:08 | CP.PCM.PN ---
<Pete Duval - Last Filed: 12/03/16 14:18> Subjective - Date & Time of Evaluation Date of Evaluation: 12/03/16 Time of Evaluation: 07:30 - Subjective Subjective: PGY4 GI Fellow Progress Note Patient seen and examined bedside this morning. The patient admits to feeling slightly better but has some discomfort at site of attempted pelvic abscess drainage. No BM overnight, +flatus. Emotional when discussing social situation outside the hospital re: homelessness/support system. 12 system ROS performed and negative except where stated. Objective - Vital Signs/Intake and Output Vital Signs (last 24 hours): Temp Pulse Resp BP Pulse Ox 99.3 F 62 18 95/62 L 97 12/03/16 04:54 12/03/16 04:54 12/03/16 04:54 12/03/16 04:54 12/03/16 04:54 Intake and Output: 12/03/16 12/03/16 06:59 18:59 Intake Total 480 Balance 480 - Medications Medications: Current Medications Acetaminophen (Tylenol 325mg Tab) 650 mg PO Q6H PRN PRN Reason: Pain, moderate (4-7) Clonazepam (Klonopin) 1 mg PO TID [facility] PRN Reason: Protocol Last Admin: 12/02/16 19:03 Dose: 1 mg Escitalopram Oxalate (Lexapro) 10 mg PO DAILY [facility] Last Admin: 12/02/16 09:38 Dose: 10 mg Gabapentin (Neurontin) 800 mg PO TID [facility] PRN Reason: Protocol Last Admin: 12/02/16 19:04 Dose: 800 mg Hydrocortisone (Cortizone 1% Cream) 0 gm TOP BID [facility] Last Admin: 12/02/16 11:45 Dose: 1 appl Hydromorphone HCl (Dilaudid) 0.5 mg IVP Q3H PRN PRN Reason: Pain, severe (8-10) Last Admin: 12/03/16 06:45 Dose: 0.5 mg Potassium Chloride 20 meq/ (Sodium Chloride) 1,010 mls @ 100 mls/hr IV .Q10H6M [facility] Last Admin: 12/03/16 06:15 Dose: Not Given Vancomycin HCl (Vancomycin 1gm) 250 mls @ 167 mls/hr IVPB Q12H [facility] PRN Reason: Protocol Last Admin: 12/02/16 22:38 Dose: 167 mls/hr Piperacillin Sod/Tazobactam Sod (Zosyn 3.375 In Ns 100ml) 100 mls @ 200 mls/hr IVPB Q6 [facility] PRN Reason: Protocol Stop: 12/09/16 00:01 Last Admin: 12/03/16 06:13 Dose: 200 mls/hr Mesalamine (Pentasa) 1,000 mg PO QID [facility] Last Admin: 12/02/16 22:47 Dose: 1,000 mg Ondansetron HCl (Zofran Inj) 4 mg IVP Q8 PRN PRN Reason: Nausea/Vomiting Pantoprazole Sodium (Protonix Ec Tab) 40 mg PO DAILY [facility] Last Admin: 12/02/16 09:39 Dose: 40 mg Quetiapine Fumarate (Seroquel) 200 mg PO BID [facility] PRN Reason: Protocol Last Admin: 12/02/16 19:03 Dose: 200 mg Zolpidem Tartrate (Ambien) 5 mg PO HS [facility] PRN Reason: Protocol Last Admin: 12/02/16 22:37 Dose: 5 mg - Labs Labs: 12/03/16 06:30 12/03/16 06:30 PT 12.8 Seconds (9.9-11.8) H 12/01/16 16:25 INR 1.19 (0.93-1.08) H 12/01/16 16:25 APTT 27.4 Seconds (23.7-30.8) 12/01/16 16:25 - Constitutional Appears: Non-toxic, No Acute Distress - Eye Exam Eye Exam: EOMI, PERRL - ENT Exam ENT Exam: Mucous Membranes Moist - Respiratory Exam Respiratory Exam: Clear to Ausculation Bilateral. absent: Rales, Rhonchi, Wheezes - Cardiovascular Exam Cardiovascular Exam: RRR, +S1, +S2 - GI/Abdominal Exam GI & Abdominal Exam: Soft, Tenderness (diffusely, RLQ), Normal Bowel Sounds. absent: Distended, Firm, Guarding, Rigid, Organomegaly - Extremities Exam Extremities Exam: Normal Inspection. absent: Pedal Edema - Neurological Exam Neurological Exam: Alert, Awake, Oriented x3 - Psychiatric Exam Psychiatric exam: Normal Affect, Normal Mood - Skin Skin Exam: Dry, Warm Additional comments: some psoriatic patches noted Assessment and Plan - Assessment and Plan (Free Text) Assessment: Patient is a 51yo female with PMHx significant for Crohn's disease, medical non- compliance, psoriasis, anxiety/depression/biopolar disorder and multisubstance abuse admitted with abdominal pain, pelvic abscess, and ileus. -Crohn's disease -Pelvic abscess -Ileus -Common bile duct dilation Plan: -Pelvic abscess drainage by IR unsuccessful yesterday; specimen collected sent for analysis -Awaiting surgical recommendations -As previously stated, patient categorically refusing endoscopy, has not had adequate outpatient follow up, is uninterested in correction medications for CD treatment and is medically noncompliant with current CD regimen which limits ability to treat this chronic illness -Recommend social work/pillowcase maker referral given homelessness -Would recommend MRCP given biliary dilation of unclear etiology once improved clinically -Will sign off at this time. Please reconsult if needed. <Fabi Plascencia MD - Last Filed: 12/03/16 18:01> Objective - Vital Signs/Intake and Output Vital Signs (last 24 hours): Temp Pulse Resp BP Pulse Ox 98.2 F 71 18 95/60 L 98 12/03/16 16:00 12/03/16 16:00 12/03/16 16:00 12/03/16 16:00 12/03/16 16:00 Intake and Output: 12/03/16 12/03/16 06:59 18:59 Intake Total 480 Balance 480 - Medications Medications: Current Medications Acetaminophen (Tylenol 325mg Tab) 650 mg PO Q6H PRN PRN Reason: Pain, moderate (4-7) Last Admin: 12/03/16 13:20 Dose: 650 mg Clonazepam (Klonopin) 1 mg PO TID [facility] PRN Reason: Protocol Last Admin: 12/03/16 14:24 Dose: 1 mg Escitalopram Oxalate (Lexapro) 10 mg PO DAILY [facility] Last Admin: 12/03/16 09:13 Dose: 10 mg Gabapentin (Neurontin) 800 mg PO TID [facility] PRN Reason: Protocol Last Admin: 12/03/16 14:24 Dose: 800 mg Hydrocortisone (Cortizone 1% Cream) 0 gm TOP BID [facility] Last Admin: 12/03/16 09:12 Dose: 1 appl Hydromorphone HCl (Dilaudid) 0.5 mg IVP Q3H PRN PRN Reason: Pain, severe (8-10) Last Admin: 12/03/16 16:32 Dose: 0.5 mg Potassium Chloride 20 meq/ (Sodium Chloride) 1,010 mls @ 100 mls/hr IV .Q10H6M [facility] Last Admin: 12/03/16 09:13 Dose: 100 mls/hr Vancomycin HCl (Vancomycin 1gm) 250 mls @ 167 mls/hr IVPB Q12H [facility] PRN Reason: Protocol Last Admin: 12/03/16 10:12 Dose: 167 mls/hr Piperacillin Sod/Tazobactam Sod (Zosyn 3.375 In Ns 100ml) 100 mls @ 200 mls/hr IVPB Q6 [facility] PRN Reason: Protocol Stop: 12/09/16 00:01 Last Admin: 12/03/16 12:28 Dose: 200 mls/hr Mesalamine (Pentasa) 1,000 mg PO QID [facility] Last Admin: 12/03/16 14:24 Dose: 1,000 mg Ondansetron HCl (Zofran Inj) 4 mg IVP Q8 PRN PRN Reason: Nausea/Vomiting Pantoprazole Sodium (Protonix Ec Tab) 40 mg PO DAILY [facility] Last Admin: 12/03/16 09:14 Dose: 40 mg Quetiapine Fumarate (Seroquel) 200 mg PO BID [facility] PRN Reason: Protocol Last Admin: 12/03/16 11:10 Dose: Not Given Zolpidem Tartrate (Ambien) 5 mg PO HS [facility] PRN Reason: Protocol Last Admin: 12/02/16 22:37 Dose: 5 mg - Labs Labs: 12/03/16 06:30 12/03/16 06:30 PT 12.8 Seconds (9.9-11.8) H 12/01/16 16:25 INR 1.19 (0.93-1.08) H 12/01/16 16:25 APTT 27.4 Seconds (23.7-30.8) 12/01/16 16:25 Attending/Attestation - Attestation I have personally seen and examined this patient.: Yes I have fully participated in the care of the patient.: Yes I have reviewed all pertinent clinical information, including history, physical exam and plan: Yes Notes (Text): 12/03/16 18:00 Pt seen with GI fellow. This is a 51 yo female with PMHx significant for Crohn' s disease, medical non-compliance, psoriasis, anxiety/depression/biopolar disorder and multisubstance abuse admitted with abdominal pain, pelvic abscess, and ileus. Unsuccesful IR drainage. Patient has poor outpatient follow up with pain meds seeking behavior. CBD dilatation- likely pain medication induced. Needs MRCP. -Recommend social work/pillowcase maker referral given homelessness -Would recommend MRCP given biliary dilation of unclear etiology once improved clinically -Will sign off at this time. Please reconsult if needed.
[2016-12-03] MEDS: Hydrocortisone 1% Cream (30 GM) TOP SCH ×2 (09:12→18:41)
[2016-12-03] MEDS: Mesalamine ER Cap 500 MG PO SCH ×4 (09:13→22:25)
[2016-12-03] MEDS: Pantoprazole 40 mg EC Tab PO SCH (09:14)
[2016-12-03] MEDS: Vancomycin 1gm in NS 250ml 250 ML IVPB SCH ×2 (10:12→19:46)
[2016-12-03] MEDS: Potassium Chloride 20 mEq ER Tab PO ONE ×2 (11:30→12:28)
--- NOTE | 2016-12-03 11:46 | CON ---
DATE: 12/03/2016 HISTORY OF PRESENT ILLNESS: Shortly, the patient is a 51-year-old female, long and debilit ating history of opioid addiction and dependence. The patient has history of misusing and abusing be nzodiazepines. The patient is very familiar to this designer writer from multiple admissions to the medical f kristin and consultation services, as well as the patient had one short hospitalization to the psychiatr ic inpatient unit after the patient signed a 48-hour notice, and left AGAINST MEDICAL ADVICE. The malu chaudhary is chronically noncompliant with followup appointment with psychiatry as well as medical team. The patient was seen and examined today. Discussed with staff. The patient presented to be with davian fraga, was crying, said that she has a lot of social issues. She is homeless. She is not working. She has poor support from her family. At the same time, the patient is using drugs about 3-4 bags a day of heroin. The patient reported that she is snorting, and when was asked where she ge ts money for her habit, the patient said that the father of her son is providing that for her. The p atient also said that she is not able to work and has no support. At the same time, the patient lesley ed any thoughts of killing herself, but reported to feel hopeless and helpless in regards to her situ ation. The patient said that she was attending [facility] methadone clinic, and she was discharged from there because the patient was positive for drugs and oxycodone. Since that time, the patient did not follo w with any outpatient providers, and the patient said that she is taking some psychotropic medication s prescribed by her primary care physician. This designer writer called to ____ pharmacy and confirmed the patient medications. The patient was prescribe d Seroquel 200 mg twice a day prescribed by Dr. Chung. Last pickup was 11/27/16. The patient was on clonazepam 1 mg twice a day by Dr. Chung 30-day supply filled on 11/11, Lexapro 10 mg 1 once a day b y Dr. Chung. Last time the patient filled that medication was 11/02/2016. A 30-day supply was give n to the patient. VITAL SIGNS: Reviewed. Temperature 99.3, pulse 62, blood pressure 195/62, respirations 18. Oxygen saturation is 97. MEDICATIONS: Reviewed. Tylenol, Klonopin 1 mg 3 times a day, Neurontin 800 mg 3 times a day, hydroc ortisone topical, Dilaudid, Pentasa, Zofran, Protonix, Zosyn, Seroquel 200 mg twice a day, vancomycin , and Ambien 5 mg at the nighttime scheduled. LABORATORY DATA: Reviewed. Potassium low. Urine protein 30, which is high. Urine drug screen was not done this admission. Last admission, which was on 10/27, the patient was positive for opioids, me thadone, and cocaine. MENTAL STATUS EXAMINATION: The patient presented to be alert, emotional, crying. Intermittent eye c ontact. Speech was underproductive. Mood described as depressed. Affect was flat, tearful, mood co ngruent. Thought process was coherent and goal directed. Thought content: The patient denied visua l, auditory, or tactile hallucinations, denied paranoid ideations. The patient reported to feel hope less and helpless in regards to her situation. The patient denied thoughts of killing herself or oth ers, denied intent or plan. The patient is not psychotic. Insight and judgment are limited. Impuls es are well-controlled. IMPRESSION: Rule out substance-induced mood disorder. As per history, the patient has bipolar disor jam. The patient also has history of polysubstance abuse and dependence. The patient has multiple m edical issues including Crohn's disease. The patient was admitted for evaluation of pelvic abscess, ileus, and common bile duct dilatation. The patient also has multiple other medical issues. Please see medical team for more detailed information. PLAN: Continue current management. Medications were resumed by medical team. The patient has chron ic noncompliance with medication and chronic polysubstance abuse and dependence. The patient express ed his willingness to go to inpatient rehab for her addiction to opioids and pain killers, as well as benzodiazepines. Social work evaluation is recommended. Symptomatic treatment for possible withdra wal symptoms. Continue Seroquel, continue Klonopin and Lexapro. We will follow up and advise frandy rainey. Thank you very much for letting me participate in the care of your patient. Rosina Mensah MD cc: [id number] TT: 12/03/2016 11:45:51 Confirmation # [id number] Dictation # [id number]
--- NOTE | 2016-12-03 15:05 | CP.PCM.PN ---
Subjective - Date & Time of Evaluation Date of Evaluation: 12/03/16 Time of Evaluation: 15:00 - Subjective Subjective: Patient has very poor veins,needs iv access Objective - Vital Signs/Intake and Output Vital Signs (last 24 hours): Temp Pulse Resp BP Pulse Ox 99.3 F 62 18 95/62 L 97 12/03/16 04:54 12/03/16 04:54 12/03/16 04:54 12/03/16 04:54 12/03/16 04:54 Intake and Output: 12/03/16 12/03/16 06:59 18:59 Intake Total 480 Balance 480 - Medications Medications: Current Medications Acetaminophen (Tylenol 325mg Tab) 650 mg PO Q6H PRN PRN Reason: Pain, moderate (4-7) Last Admin: 12/03/16 13:20 Dose: 650 mg Clonazepam (Klonopin) 1 mg PO TID [facility] PRN Reason: Protocol Last Admin: 12/03/16 14:24 Dose: 1 mg Escitalopram Oxalate (Lexapro) 10 mg PO DAILY [facility] Last Admin: 12/03/16 09:13 Dose: 10 mg Gabapentin (Neurontin) 800 mg PO TID [facility] PRN Reason: Protocol Last Admin: 12/03/16 14:24 Dose: 800 mg Hydrocortisone (Cortizone 1% Cream) 0 gm TOP BID [facility] Last Admin: 12/03/16 09:12 Dose: 1 appl Hydromorphone HCl (Dilaudid) 0.5 mg IVP Q3H PRN PRN Reason: Pain, severe (8-10) Last Admin: 12/03/16 13:20 Dose: 0.5 mg Potassium Chloride 20 meq/ (Sodium Chloride) 1,010 mls @ 100 mls/hr IV .Q10H6M [facility] Last Admin: 12/03/16 09:13 Dose: 100 mls/hr Vancomycin HCl (Vancomycin 1gm) 250 mls @ 167 mls/hr IVPB Q12H [facility] PRN Reason: Protocol Last Admin: 12/03/16 10:12 Dose: 167 mls/hr Piperacillin Sod/Tazobactam Sod (Zosyn 3.375 In Ns 100ml) 100 mls @ 200 mls/hr IVPB Q6 [facility] PRN Reason: Protocol Stop: 12/09/16 00:01 Last Admin: 12/03/16 12:28 Dose: 200 mls/hr Mesalamine (Pentasa) 1,000 mg PO QID [facility] Last Admin: 12/03/16 14:24 Dose: 1,000 mg Ondansetron HCl (Zofran Inj) 4 mg IVP Q8 PRN PRN Reason: Nausea/Vomiting Pantoprazole Sodium (Protonix Ec Tab) 40 mg PO DAILY [facility] Last Admin: 12/03/16 09:14 Dose: 40 mg Quetiapine Fumarate (Seroquel) 200 mg PO BID [facility] PRN Reason: Protocol Last Admin: 12/03/16 11:10 Dose: Not Given Zolpidem Tartrate (Ambien) 5 mg PO HS [facility] PRN Reason: Protocol Last Admin: 12/02/16 22:37 Dose: 5 mg - Labs Labs: 12/03/16 06:30 12/03/16 06:30 PT 12.8 Seconds (9.9-11.8) H 12/01/16 16:25 INR 1.19 (0.93-1.08) H 12/01/16 16:25 APTT 27.4 Seconds (23.7-30.8) 12/01/16 16:25 - Constitutional Appears: No Acute Distress Assessment and Plan - Assessment and Plan (Free Text) Assessment: Poor venous access Plan: Hep lock inserted in the L hand. # 24 angiocath used.
--- NOTE | 2016-12-03 15:09 | CP.PCM.PN ---
<Demian Desai - Last Filed: 12/03/16 15:27> Subjective - Date & Time of Evaluation Date of Evaluation: 12/03/16 Time of Evaluation: 09:04 - Subjective Subjective: Pt seen and examined. Pt complaining of abdominal pain and weakness. Pt reports that she had a small bowel movement this morning. Pt denies fever, chills, chest pain, shortness of breath, nausea, and vomiting. Objective - Vital Signs/Intake and Output Vital Signs (last 24 hours): Temp Pulse Resp BP Pulse Ox 99.3 F 62 18 95/62 L 97 12/03/16 04:54 12/03/16 04:54 12/03/16 04:54 12/03/16 04:54 12/03/16 04:54 Intake and Output: 12/03/16 12/03/16 06:59 18:59 Intake Total 480 Balance 480 - Medications Medications: Current Medications Acetaminophen (Tylenol 325mg Tab) 650 mg PO Q6H PRN PRN Reason: Pain, moderate (4-7) Last Admin: 12/03/16 13:20 Dose: 650 mg Clonazepam (Klonopin) 1 mg PO TID [facility] PRN Reason: Protocol Last Admin: 12/03/16 14:24 Dose: 1 mg Escitalopram Oxalate (Lexapro) 10 mg PO DAILY [facility] Last Admin: 12/03/16 09:13 Dose: 10 mg Gabapentin (Neurontin) 800 mg PO TID [facility] PRN Reason: Protocol Last Admin: 12/03/16 14:24 Dose: 800 mg Hydrocortisone (Cortizone 1% Cream) 0 gm TOP BID [facility] Last Admin: 12/03/16 09:12 Dose: 1 appl Hydromorphone HCl (Dilaudid) 0.5 mg IVP Q3H PRN PRN Reason: Pain, severe (8-10) Last Admin: 12/03/16 13:20 Dose: 0.5 mg Potassium Chloride 20 meq/ (Sodium Chloride) 1,010 mls @ 100 mls/hr IV .Q10H6M [facility] Last Admin: 12/03/16 09:13 Dose: 100 mls/hr Vancomycin HCl (Vancomycin 1gm) 250 mls @ 167 mls/hr IVPB Q12H [facility] PRN Reason: Protocol Last Admin: 12/03/16 10:12 Dose: 167 mls/hr Piperacillin Sod/Tazobactam Sod (Zosyn 3.375 In Ns 100ml) 100 mls @ 200 mls/hr IVPB Q6 [facility] PRN Reason: Protocol Stop: 12/09/16 00:01 Last Admin: 12/03/16 12:28 Dose: 200 mls/hr Mesalamine (Pentasa) 1,000 mg PO QID [facility] Last Admin: 12/03/16 14:24 Dose: 1,000 mg Ondansetron HCl (Zofran Inj) 4 mg IVP Q8 PRN PRN Reason: Nausea/Vomiting Pantoprazole Sodium (Protonix Ec Tab) 40 mg PO DAILY [facility] Last Admin: 12/03/16 09:14 Dose: 40 mg Quetiapine Fumarate (Seroquel) 200 mg PO BID [facility] PRN Reason: Protocol Last Admin: 12/03/16 11:10 Dose: Not Given Zolpidem Tartrate (Ambien) 5 mg PO HS [facility] PRN Reason: Protocol Last Admin: 12/02/16 22:37 Dose: 5 mg - Labs Labs: 12/03/16 06:30 12/03/16 06:30 PT 12.8 Seconds (9.9-11.8) H 12/01/16 16:25 INR 1.19 (0.93-1.08) H 12/01/16 16:25 APTT 27.4 Seconds (23.7-30.8) 12/01/16 16:25 - Constitutional Appears: No Acute Distress - Head Exam Head Exam: ATRAUMATIC, NORMOCEPHALIC - Eye Exam Eye Exam: EOMI, PERRL - ENT Exam ENT Exam: Mucous Membranes Moist. absent: Mucous Membranes Dry - Respiratory Exam Respiratory Exam: Clear to Ausculation Bilateral. absent: Rales, Rhonchi, Wheezes - Cardiovascular Exam Cardiovascular Exam: +S1, +S2 - GI/Abdominal Exam GI & Abdominal Exam: Soft, Tenderness, Normal Bowel Sounds. absent: Distended, Guarding - Extremities Exam Extremities Exam: Full ROM. absent: Pedal Edema - Neurological Exam Neurological Exam: Alert, Awake, Oriented x3 - Psychiatric Exam Psychiatric exam: Anxious - Skin Skin Exam: Normal Color, Warm Assessment and Plan - Assessment and Plan (Free Text) Assessment: Pelvic Abscess: Pt day 1 s/p unsuccessful abscess drainage with IR, Dr. Metcalf; CT guided aspiration was performed; fluid cultures Afrebrile, nontachycardic No leukocytosis CT Abd/Pelvis: pelvic abscess, increasing adenopathy infectious vs neoplastic; ileus and/or partial bowel obstruction; thickened small bowel loops; dilated common bile duct distal obstructing lesion cannot be ruled out; rectal wall thickening inflammation/infection vs neoplasm Surgery, Dr. Marti, consulted. Help appreciated. Interventional radiology, Dr. Metcalf, consulted. Help appreciated. Infectious Disease, Dr. Mcneill, consulted. Help appreciated. Zosyn 3.375 gm IV q6h Vancomycin 1 gm q12h Crohn's Disease Flare: GI, Dr. Plascencia, consulted. Help appreciated. Stool culture and c.diff ag pending As per GI, pt refusing endoscopic intervention and pt has a hx of noncompliance with meds and does not wish to seek outpt follow up. GI recommends MRCP once pt has improved clinically. GI signing of. Pentasa 1000 mg po QID Hydrdocortisone cream on rectum Dialudid 0.5 mg IV q3h prn for pain Zofran 4 mg IV q8h prn for nausea Cough: CXR - no evidence of pneumonia Anxiety/Depression: Psychiatry, Dr. Almaguer, consulted. Help appreciated. As per psychiatry, pt wants to go for inpt rehab for her addiction to opiods and benzodiazepienes Klonopin 1 mg po tid Lexapro 10 mg po qd Seroquel 200 mg po bid Neurontin 800 mg po tid Ambien 5 mg po hs Hypokalemia/Hypomagnesemia: KCl 20 meq in NS 100 cc/hr Magnesium 400 mg po once Prophylactic Measures: GI: Protonix 40 mg po qd DVT: SCDs <Lashonda Haleya - Last Filed: 12/03/16 18:24> Objective - Vital Signs/Intake and Output Vital Signs (last 24 hours): Temp Pulse Resp BP Pulse Ox 98.2 F 71 18 95/60 L 98 12/03/16 16:00 12/03/16 16:00 12/03/16 16:00 12/03/16 16:00 12/03/16 16:00 Intake and Output: 12/03/16 12/03/16 06:59 18:59 Intake Total 480 Balance 480 - Medications Medications: Current Medications Acetaminophen (Tylenol 325mg Tab) 650 mg PO Q6H PRN PRN Reason: Pain, moderate (4-7) Last Admin: 12/03/16 13:20 Dose: 650 mg Clonazepam (Klonopin) 1 mg PO TID [facility] PRN Reason: Protocol Last Admin: 12/03/16 14:24 Dose: 1 mg Escitalopram Oxalate (Lexapro) 10 mg PO DAILY [facility] Last Admin: 12/03/16 09:13 Dose: 10 mg Gabapentin (Neurontin) 800 mg PO TID [facility] PRN Reason: Protocol Last Admin: 12/03/16 14:24 Dose: 800 mg Hydrocortisone (Cortizone 1% Cream) 0 gm TOP BID [facility] Last Admin: 12/03/16 09:12 Dose: 1 appl Hydromorphone HCl (Dilaudid) 0.5 mg IVP Q3H PRN PRN Reason: Pain, severe (8-10) Last Admin: 12/03/16 16:32 Dose: 0.5 mg Potassium Chloride 20 meq/ (Sodium Chloride) 1,010 mls @ 100 mls/hr IV .Q10H6M [facility] Last Admin: 12/03/16 09:13 Dose: 100 mls/hr Vancomycin HCl (Vancomycin 1gm) 250 mls @ 167 mls/hr IVPB Q12H [facility] PRN Reason: Protocol Last Admin: 12/03/16 10:12 Dose: 167 mls/hr Piperacillin Sod/Tazobactam Sod (Zosyn 3.375 In Ns 100ml) 100 mls @ 200 mls/hr IVPB Q6 [facility] PRN Reason: Protocol Stop: 12/09/16 00:01 Last Admin: 12/03/16 12:28 Dose: 200 mls/hr Mesalamine (Pentasa) 1,000 mg PO QID [facility] Last Admin: 12/03/16 14:24 Dose: 1,000 mg Ondansetron HCl (Zofran Inj) 4 mg IVP Q8 PRN PRN Reason: Nausea/Vomiting Pantoprazole Sodium (Protonix Ec Tab) 40 mg PO DAILY [facility] Last Admin: 12/03/16 09:14 Dose: 40 mg Quetiapine Fumarate (Seroquel) 200 mg PO BID [facility] PRN Reason: Protocol Last Admin: 12/03/16 11:10 Dose: Not Given Zolpidem Tartrate (Ambien) 5 mg PO HS [facility] PRN Reason: Protocol Last Admin: 12/02/16 22:37 Dose: 5 mg - Labs Labs: 12/03/16 06:30 12/03/16 06:30 PT 12.8 Seconds (9.9-11.8) H 12/01/16 16:25 INR 1.19 (0.93-1.08) H 12/01/16 16:25 APTT 27.4 Seconds (23.7-30.8) 12/01/16 16:25 Assessment and Plan - Assessment and Plan (Free Text) Assessment: attending note; Patient seen and examined with resident in room 563. Patient is a 51-year-old female with a history of Crohn's disease, perirectal abscess, bipolar disorder, drug abuse, Opiate dependency and noncompliance with follow-up is admitted with abdominal pain. CT showed pelvic Cyst with lymphadenopathy, partial obstruction consistent with Crohn' and dilated CBD. GI and surgery evaluation appreciated. status post perirectal abscess drainage by IR Dr. Derrell Metcalf yesterday. Awaiting culture results. Bipolar disorder; psychiatric evaluation appreciated. 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 Currently patient doesn't have a PMD and GI to follow-up with. Attending/Attestation - Attestation I have personally seen and examined this patient.: Yes I have fully participated in the care of the patient.: Yes I have reviewed all pertinent clinical information, including history, physical exam and plan: Yes
--- NOTE | 2016-12-03 16:11 | CP.PCM.PN ---
Subjective - Date & Time of Evaluation Date of Evaluation: 12/03/16 Time of Evaluation: 15:10 - Subjective Subjective: Less abdominal pain, no fevers overnight, had bowel movement today. Objective - Vital Signs/Intake and Output Vital Signs (last 24 hours): Temp Pulse Resp BP Pulse Ox 99.3 F 62 18 95/62 L 97 12/03/16 04:54 12/03/16 04:54 12/03/16 04:54 12/03/16 04:54 12/03/16 04:54 Intake and Output: 12/03/16 12/03/16 06:59 18:59 Intake Total 480 Balance 480 - Medications Medications: Current Medications Acetaminophen (Tylenol 325mg Tab) 650 mg PO Q6H PRN PRN Reason: Pain, moderate (4-7) Last Admin: 12/03/16 13:20 Dose: 650 mg Clonazepam (Klonopin) 1 mg PO TID [facility] PRN Reason: Protocol Last Admin: 12/03/16 14:24 Dose: 1 mg Escitalopram Oxalate (Lexapro) 10 mg PO DAILY [facility] Last Admin: 12/03/16 09:13 Dose: 10 mg Gabapentin (Neurontin) 800 mg PO TID [facility] PRN Reason: Protocol Last Admin: 12/03/16 14:24 Dose: 800 mg Hydrocortisone (Cortizone 1% Cream) 0 gm TOP BID [facility] Last Admin: 12/03/16 09:12 Dose: 1 appl Hydromorphone HCl (Dilaudid) 0.5 mg IVP Q3H PRN PRN Reason: Pain, severe (8-10) Last Admin: 12/03/16 13:20 Dose: 0.5 mg Potassium Chloride 20 meq/ (Sodium Chloride) 1,010 mls @ 100 mls/hr IV .Q10H6M [facility] Last Admin: 12/03/16 09:13 Dose: 100 mls/hr Vancomycin HCl (Vancomycin 1gm) 250 mls @ 167 mls/hr IVPB Q12H [facility] PRN Reason: Protocol Last Admin: 12/03/16 10:12 Dose: 167 mls/hr Piperacillin Sod/Tazobactam Sod (Zosyn 3.375 In Ns 100ml) 100 mls @ 200 mls/hr IVPB Q6 [facility] PRN Reason: Protocol Stop: 12/09/16 00:01 Last Admin: 12/03/16 12:28 Dose: 200 mls/hr Mesalamine (Pentasa) 1,000 mg PO QID [facility] Last Admin: 12/03/16 14:24 Dose: 1,000 mg Ondansetron HCl (Zofran Inj) 4 mg IVP Q8 PRN PRN Reason: Nausea/Vomiting Pantoprazole Sodium (Protonix Ec Tab) 40 mg PO DAILY [facility] Last Admin: 12/03/16 09:14 Dose: 40 mg Quetiapine Fumarate (Seroquel) 200 mg PO BID [facility] PRN Reason: Protocol Last Admin: 12/03/16 11:10 Dose: Not Given Zolpidem Tartrate (Ambien) 5 mg PO HS [facility] PRN Reason: Protocol Last Admin: 12/02/16 22:37 Dose: 5 mg - Labs Labs: 12/03/16 06:30 12/03/16 06:30 PT 12.8 Seconds (9.9-11.8) H 12/01/16 16:25 INR 1.19 (0.93-1.08) H 12/01/16 16:25 APTT 27.4 Seconds (23.7-30.8) 12/01/16 16:25 - Constitutional Appears: Non-toxic, No Acute Distress - Head Exam Head Exam: NORMAL INSPECTION - ENT Exam ENT Exam: Mucous Membranes Moist - Neck Exam Neck Exam: absent: Lymphadenopathy, Meningismus - Respiratory Exam Respiratory Exam: Decreased Breath Sounds - Cardiovascular Exam Cardiovascular Exam: +S1, +S2 - GI/Abdominal Exam GI & Abdominal Exam: Soft. absent: Tenderness Assessment and Plan - Assessment and Plan (Free Text) Plan: Assessment Pelvic abscess, probably related to the patient's Crohn's disease, S/P CT- guided drainage POD #1; fluid growing gram positive cocci in clusters and gram negative bacilli asthma history of pneumonia eczema history of psoriasis anxiety history of depression bipolar disorder history of alcohol abuse history of right hemicolectomy history of perirectal abscess Plan continue Vancomycin and Zosyn day 2 pending final abscess culture results Will monitor clinically
[2016-12-04] MEDS: Piperacillin/Tazobact 3.375 gm 100 ML IVPB SCH ×2 (00:08→05:47)
[2016-12-04] MEDS: HYDROmorphone 0.5 mg/0.5 ml ISec IVP PRN ×7 (02:53→22:03)
--- NOTE | 2016-12-04 07:37 | CP.PCM.PN ---
<Jada Cohen - Last Filed: 12/04/16 15:38> Subjective - Date & Time of Evaluation Date of Evaluation: 12/04/16 Time of Evaluation: 07:25 - Subjective Subjective: SURGICAL PROGRESS NOTE FOR DR. MARTI Patient is seen and examined at bedside. Abd pain and rectal has improved since yesterday. Pt still c/o nausea but denies having any V/D/C, fevers or chills. Patient is tolerating diet and ambulating without difficulty. Objective - Vital Signs/Intake and Output Vital Signs (last 24 hours): Temp Pulse Resp BP Pulse Ox 98.2 F 71 18 95/60 L 98 12/03/16 16:00 12/03/16 16:00 12/03/16 16:00 12/03/16 16:00 12/03/16 16:00 Intake and Output: 12/04/16 12/04/16 06:59 18:59 Intake Total 3420 Balance 3420 - Medications Medications: Current Medications Acetaminophen (Tylenol 325mg Tab) 650 mg PO Q6H PRN PRN Reason: Pain, moderate (4-7) Last Admin: 12/03/16 13:20 Dose: 650 mg Clonazepam (Klonopin) 1 mg PO TID [facility] PRN Reason: Protocol Last Admin: 12/03/16 18:41 Dose: 1 mg Escitalopram Oxalate (Lexapro) 10 mg PO DAILY [facility] Last Admin: 12/03/16 09:13 Dose: 10 mg Gabapentin (Neurontin) 800 mg PO TID [facility] PRN Reason: Protocol Last Admin: 12/03/16 18:41 Dose: 800 mg Hydrocortisone (Cortizone 1% Cream) 0 gm TOP BID [facility] Last Admin: 12/03/16 18:41 Dose: 1 appl Hydromorphone HCl (Dilaudid) 0.5 mg IVP Q3H PRN PRN Reason: Pain, severe (8-10) Last Admin: 12/04/16 06:30 Dose: 0.5 mg Potassium Chloride 20 meq/ (Sodium Chloride) 1,010 mls @ 100 mls/hr IV .Q10H6M [facility] Last Admin: 12/04/16 00:07 Dose: 100 mls/hr Vancomycin HCl (Vancomycin 1gm) 250 mls @ 167 mls/hr IVPB Q12H [facility] PRN Reason: Protocol Last Admin: 12/03/16 19:46 Dose: 167 mls/hr Piperacillin Sod/Tazobactam Sod (Zosyn 3.375 In Ns 100ml) 100 mls @ 200 mls/hr IVPB Q6 [facility] PRN Reason: Protocol Stop: 12/09/16 00:01 Last Admin: 12/04/16 05:47 Dose: 200 mls/hr Mesalamine (Pentasa) 1,000 mg PO QID [facility] Last Admin: 12/03/16 22:25 Dose: 1,000 mg Ondansetron HCl (Zofran Inj) 4 mg IVP Q8 PRN PRN Reason: Nausea/Vomiting Pantoprazole Sodium (Protonix Ec Tab) 40 mg PO DAILY [facility] Last Admin: 12/03/16 09:14 Dose: 40 mg Quetiapine Fumarate (Seroquel) 200 mg PO BID [facility] PRN Reason: Protocol Last Admin: 12/03/16 18:42 Dose: 200 mg Zolpidem Tartrate (Ambien) 5 mg PO HS [facility] PRN Reason: Protocol Last Admin: 12/03/16 22:25 Dose: 5 mg - Labs Labs: 12/03/16 06:30 12/03/16 06:30 PT 12.8 Seconds (9.9-11.8) H 12/01/16 16:25 INR 1.19 (0.93-1.08) H 12/01/16 16:25 APTT 27.4 Seconds (23.7-30.8) 12/01/16 16:25 - Constitutional Appears: Non-toxic, No Acute Distress - Head Exam Head Exam: ATRAUMATIC - ENT Exam ENT Exam: Mucous Membranes Moist - Respiratory Exam Respiratory Exam: absent: Accessory Muscle Use, Respiratory Distress - GI/Abdominal Exam GI & Abdominal Exam: Soft, Normal Bowel Sounds. absent: Distended, Firm, Guarding, Rigid, Tenderness - Neurological Exam Neurological Exam: Alert, Awake, Oriented x3 - Psychiatric Exam Psychiatric exam: Normal Affect, Normal Mood - Skin Skin Exam: Dry, Intact, Normal Color, Warm Assessment and Plan - Assessment and Plan (Free Text) Assessment: 51F presents with PMHx of Crohn's disease is seen for Crohn flareup and pelvic abscess. Pt had perirectal abscess drained by IR POD 2. Drained only 4 cc of fluid. - strict Is&Os, monitor vitals, IVF - GI is consulted. - IR drainage POD #2 - Abx per ID recs - Continue medical management - Will consider advancing diet as tolerated - Will consider packing abscess site and daily dressing changes Will discussed with Dr. Marti for further recs Jada Cohen, PGY1 <Dheeraj Marti - Last Filed: 12/10/16 20:47> Subjective - Date & Time of Evaluation Date of Evaluation: 12/04/16 Time of Evaluation: 17:10 Objective - Vital Signs/Intake and Output Vital Signs (last 24 hours): Temp Pulse Resp BP Pulse Ox 98 F 62 20 108/59 L 98 12/10/16 16:00 12/10/16 16:00 12/10/16 16:00 12/10/16 16:00 12/10/16 16:00 Intake and Output: 12/10/16 12/11/16 18:59 06:59 Intake Total 380 Balance 380 - Medications Medications: Current Medications Acetaminophen (Tylenol 325mg Tab) 650 mg PO Q6H PRN PRN Reason: Pain, moderate (4-7) Last Admin: 12/08/16 20:36 Dose: 650 mg Al Hydrox/Mg Hydrox/Simethicone (Maalox Plus 30 Ml) 30 ml PO DAILY PRN PRN Reason: Indigestion / Heartburn Clonazepam (Klonopin) 1 mg PO TID [facility] Stop: 12/15/16 18:01 Last Admin: 12/10/16 20:05 Dose: 1 mg Docusate Sodium (Colace) 100 mg PO TID [facility] Last Admin: 12/10/16 20:05 Dose: 100 mg Escitalopram Oxalate (Lexapro) 10 mg PO DAILY [facility] Last Admin: 12/10/16 10:08 Dose: 10 mg Gabapentin (Neurontin) 800 mg PO TID [facility] PRN Reason: Protocol Last Admin: 12/10/16 20:04 Dose: 800 mg Heparin Sodium (Porcine) (Heparin) 5,000 units SC Q12 [facility] PRN Reason: Protocol Last Admin: 12/10/16 09:49 Dose: Not Given Hydrocortisone (Cortizone 1% Cream) 0 gm TOP BID [facility] Last Admin: 12/10/16 20:06 Dose: 1 appl Hydrocortisone/Pramoxine (Proctofoam) 1 gm TOP TID [facility] Last Admin: 12/10/16 20:26 Dose: Not Given Meropenem 1g/NS 100mL IVPB (Meropenem 1g/Ns 100ml Ivpb) 100 mls @ 100 mls/hr IVPB Q8H [facility] Last Admin: 12/10/16 19:05 Dose: 100 mls/hr Ondansetron HCl (Zofran Inj) 4 mg IVP Q8 PRN PRN Reason: Nausea/Vomiting Oxycodone HCl (Oxycontin Extended Release Tab) 60 mg PO Q12 [facility] Oxycodone HCl (Oxycodone Immediate Release Tab) 15 mg PO BID PRN PRN Reason: Pain, moderate (4-7) Last Admin: 12/10/16 18:19 Dose: 15 mg Pantoprazole Sodium (Protonix Inj) 40 mg IVP DAILY [facility] Last Admin: 12/10/16 09:53 Dose: 40 mg Quetiapine Fumarate (Seroquel) 200 mg PO BID [facility] PRN Reason: Protocol Last Admin: 12/10/16 20:05 Dose: 200 mg Simethicone (Mylicon Chew Tab) 80 mg PO [facility] PRN PRN Reason: GI distress Last Admin: 12/09/16 17:12 Dose: 80 mg Zolpidem Tartrate (Ambien) 5 mg PO [facility] PRN Reason: Protocol Last Admin: 12/10/16 00:34 Dose: 5 mg - Labs Labs: 12/10/16 06:30 12/09/16 05:30 PT 13.4 Seconds (9.9-11.8) H 12/07/16 08:14 INR 1.24 (0.93-1.08) H 12/07/16 08:14 APTT 31.0 Seconds (23.7-30.8) H 12/07/16 08:14 Assessment and Plan - Assessment and Plan (Free Text) Assessment: I have seen and examined this patient myself. I agree with assessment and plan as per resident's note.
[2016-12-04] MEDS: Vancomycin 1gm in NS 250ml 250 ML IVPB SCH (09:32)
[2016-12-04] MEDS: Mesalamine ER Cap 500 MG PO SCH ×4 (10:06→22:04)
[2016-12-04] MEDS: Pantoprazole 40 mg EC Tab PO SCH (10:06)
[2016-12-04] MEDS: Hydrocortisone 1% Cream (30 GM) TOP SCH ×2 (10:07→17:48)
[2016-12-04 10:46] LABS: ADD MANUAL DIFF? NO
[2016-12-04 10:50] LABS: BASO # 0.03 K/mm3 (0.0-2.0); BASO % 0.2 % (0.0-3.0); EOS # 0.7 (0.0-0.7); EOS % 4.6 % (1.5-5.0); GRAN # 11.82 (1.4-6.5); GRAN % 76.4 % (50.0-68.0); HEMATOCRIT 31.4 % (36.0-48.0); LYMPH # 1.6 (1.2-3.4); LYMPH % 10.1 % (22.0-35.0); MEAN CELL VOLUME 86.3 fL (80.0-105.0); MEAN CORPUSCULAR HEMOGLOBIN 28.3 pg (25.0-35.0); MEAN CORPUSCULAR HGB CONC 32.8 g/dl (31.0-37.0); MEAN PLATELET VOLUME 9.9 fl (7.0-11.0); MONO # 1.3 (0.1-0.6); MONO % 8.7 % (1.0-6.0); PLATELET COUNT 362 10^3/uL (120.0-450.0); WHITE BLOOD COUNT 15.5 10^3/ul (4.5-11.0)
[2016-12-04 11:05] LABS: BLOOD UREA NITROGEN 7 mg/dL (7-21); CALCIUM 7.8 mg/dL (8.4-10.5); CARBON DIOXIDE 25 mmol/L (21-33); CHLORIDE 103 mmol/L (98-107); GFR AFRICAN-AMERICAN > 60; GLUCOSE,RANDOM 101 mg/dL (70-110); MAGNESIUM 1.7 mg/dL (1.7-2.2); PHOSPHOROUS 2.9 mg/dL (2.5-4.5); POTASSIUM 3.3 mmol/L (3.6-5.0); SODIUM 136 mmol/L (132-148)
--- NOTE | 2016-12-04 12:40 | CP.PCM.PN ---
Subjective - Date & Time of Evaluation Date of Evaluation: 12/04/16 Time of Evaluation: 10:45 - Subjective Subjective: No fevers overnight, no nausea, less abdominal pain. Objective - Vital Signs/Intake and Output Vital Signs (last 24 hours): Temp Pulse Resp BP Pulse Ox 98.2 F 71 18 95/60 L 98 12/03/16 16:00 12/03/16 16:00 12/03/16 16:00 12/03/16 16:00 12/03/16 16:00 Intake and Output: 12/04/16 12/04/16 06:59 18:59 Intake Total 3420 Balance 3420 - Medications Medications: Current Medications Acetaminophen (Tylenol 325mg Tab) 650 mg PO Q6H PRN PRN Reason: Pain, moderate (4-7) Last Admin: 12/03/16 13:20 Dose: 650 mg Clonazepam (Klonopin) 1 mg PO TID [facility] PRN Reason: Protocol Last Admin: 12/04/16 10:06 Dose: 1 mg Escitalopram Oxalate (Lexapro) 10 mg PO DAILY [facility] Last Admin: 12/04/16 10:05 Dose: 10 mg Gabapentin (Neurontin) 800 mg PO TID [facility] PRN Reason: Protocol Last Admin: 12/04/16 10:05 Dose: 800 mg Hydrocortisone (Cortizone 1% Cream) 0 gm TOP BID [facility] Last Admin: 12/04/16 10:07 Dose: 1 appl Hydromorphone HCl (Dilaudid) 0.5 mg IVP Q3H PRN PRN Reason: Pain, severe (8-10) Last Admin: 12/04/16 09:33 Dose: 0.5 mg Potassium Chloride 20 meq/ (Sodium Chloride) 1,010 mls @ 100 mls/hr IV .Q10H6M [facility] Last Admin: 12/04/16 00:07 Dose: 100 mls/hr Mesalamine (Pentasa) 1,000 mg PO QID [facility] Last Admin: 12/04/16 10:06 Dose: 1,000 mg Ondansetron HCl (Zofran Inj) 4 mg IVP Q8 PRN PRN Reason: Nausea/Vomiting Pantoprazole Sodium (Protonix Ec Tab) 40 mg PO DAILY [facility] Last Admin: 12/04/16 10:06 Dose: 40 mg Quetiapine Fumarate (Seroquel) 200 mg PO BID [facility] PRN Reason: Protocol Last Admin: 12/04/16 10:05 Dose: 200 mg Zolpidem Tartrate (Ambien) 5 mg PO HS [facility] PRN Reason: Protocol Last Admin: 12/03/16 22:25 Dose: 5 mg - Labs Labs: 12/03/16 06:30 12/03/16 06:30 PT 12.8 Seconds (9.9-11.8) H 12/01/16 16:25 INR 1.19 (0.93-1.08) H 12/01/16 16:25 APTT 27.4 Seconds (23.7-30.8) 12/01/16 16:25 - Constitutional Appears: Non-toxic, No Acute Distress - Head Exam Head Exam: NORMAL INSPECTION - Respiratory Exam Respiratory Exam: Decreased Breath Sounds - Cardiovascular Exam Cardiovascular Exam: +S1, +S2 - GI/Abdominal Exam GI & Abdominal Exam: Soft. absent: Tenderness Assessment and Plan - Assessment and Plan (Free Text) Plan: Assessment Pelvic abscess, probably related to the patient's Crohn's disease, S/P CT- guided drainage POD #2, growing ESBL-producing multidrug-resistant E. coli asthma history of pneumonia eczema history of psoriasis anxiety history of depression bipolar disorder history of alcohol abuse history of right hemicolectomy history of perirectal abscess Plan change antibiotics to Ertapenem and will continue to monitor clinically Discussed with Dr. Haley (Hospitalist in-charge)
[2016-12-04] MEDS ORDERED: Meropenem 1 GM in Sodium Chloride 0.9% 100 ML IVPB SCH (14:00)
--- NOTE | 2016-12-04 16:46 | PN ---
DATE: 12/04/2016 The patient was followed up today. The patient presented much better to compare with yesterday. The patient reported that her mood is better because her pain is under control. The patient denied feel ing hopeless or helpless, but reported that she feels more hopeful for the future. The patient denie d any psychotic symptoms. Denied thoughts of killing herself or others. In regards of the medical i ssues, the patient has multiple medical problems including pelvic abscess, Crohn disease, status post ____ guided drainage postoperative day #2. The patient also has history of asthma, pneumonia, histo ry of eczema, history of psoriasis, history of perirectal abscesses, history of right hemicolectomy. VITAL SIGNS: Reviewed. Temperature of 100.5, pulse is 81, blood pressure 95/60, respirations 18, ox ygen saturation is 98. MEDICATIONS: Reviewed. Tylenol, Klonopin 1 mg 3 times a day, Lexapro 10 mg daily, Neurontin 800 mg 3 times a day, Dilaudid 0.5 mg IV push q.3 hours p.r.n., Pentasa, Zofran, Protonix, Seroquel 200 mg t wice a day and Ambien 5 mg at the nighttime scheduled. LABORATORY DATA: Reviewed. WBC cells 15.5, hemoglobin and hematocrit 10.3 and 31.4. Granulocytes 7 6.4. Chemistry reviewed. Potassium 3.3. Urinalysis within normal limits. Toxicology: Opioids and benzodiazepines were positive on the . MENTAL STATUS EXAMINATION: The patient was alert, oriented. Fair eye contact. Speech was normal ra te, tone, quality, and quantity. Mood described, "I feel better." Affect was more reactive, mood co ngruent. Thought process coherent and goal directed. Thought content: The patient denied visual, a uditory, or tactile hallucination. Denied paranoid ideations. The patient denied thoughts of harmin g herself or others, denied intent or plan. Insight and judgment are improving. Impulses are well c ontrolled. IMPRESSION: The patient has history of polysubstance abuse and dependence, opioid dependence, histor y of questionable bipolar disorder, rule out mood disorder due to chronic polysubstance abuse. The p atient has multiple medical issues. Please see above. PLAN: Social work evaluation is recommended. The patient wants to go to inpatient rehab for her add iction to opioids. The patient seems to be stable on her current medications. The patient denied th oughts of harming herself or others, denied intent or plan. The patient deemed not to be in danger t o self or others. This brief writer will sign off from this case. The patient should be followed up eithe r in methadone clinic or [place] [facility]. The patient is aware of all contact information. This brief writer will sign off from this case. Should you have any questions, give me a call back. Rosina Mensah MD cc: [phone] TT: 12/04/2016 16:45:37 Confirmation # [id number] Dictation # [id number]
[2016-12-04] MEDS: Hydrocortisone-Pramoxine 1%-1% Foam(10 gm) TOP SCH (17:28)
[2016-12-04] MEDS ORDERED: Potassium Chloride 20 mEq ER Tab PO ONE (18:27)
--- NOTE | 2016-12-04 18:32 | CP.PCM.PN ---
<Demian Desai - Last Filed: 12/04/16 18:27> Subjective - Date & Time of Evaluation Date of Evaluation: 12/04/16 Time of Evaluation: 09:49 - Subjective Subjective: Pt seen and examined. Pt reports that she feels weak and has abdominal pain. Pt reports that she has not had a bowel movement. Pt denies fever, chills, chest pain, shortness of breath, nausea, and vomiting. Objective - Vital Signs/Intake and Output Vital Signs (last 24 hours): Temp Pulse Resp BP Pulse Ox 100.1 F H 72 20 104/57 L 100 12/04/16 16:40 12/04/16 16:00 12/04/16 16:00 12/04/16 16:00 12/04/16 16:00 Intake and Output: 12/04/16 12/04/16 06:59 18:59 Intake Total 3420 Balance 3420 - Medications Medications: Current Medications Acetaminophen (Tylenol 325mg Tab) 650 mg PO Q6H PRN PRN Reason: Pain, moderate (4-7) Last Admin: 12/04/16 15:40 Dose: 650 mg Clonazepam (Klonopin) 1 mg PO TID [facility] PRN Reason: Protocol Last Admin: 12/04/16 17:28 Dose: 1 mg Escitalopram Oxalate (Lexapro) 10 mg PO DAILY [facility] Last Admin: 12/04/16 10:05 Dose: 10 mg Gabapentin (Neurontin) 800 mg PO TID [facility] PRN Reason: Protocol Last Admin: 12/04/16 17:27 Dose: 800 mg Hydrocortisone (Cortizone 1% Cream) 0 gm TOP BID [facility] Last Admin: 12/04/16 17:48 Dose: Not Given Hydrocortisone/Pramoxine (Proctofoam) 1 gm TOP TID [facility] Last Admin: 12/04/16 17:28 Dose: 1 gm Hydromorphone HCl (Dilaudid) 0.5 mg IVP Q3H PRN PRN Reason: Pain, severe (8-10) Last Admin: 12/04/16 15:40 Dose: 0.5 mg Ertapenem 1 gm/ Sodium (Chloride) 50 mls @ 100 mls/hr IVPB Q24H [facility] Stop: 12/11/16 12:46 Last Admin: 12/04/16 13:39 Dose: 100 mls/hr Mesalamine (Pentasa) 1,000 mg PO QID [facility] Last Admin: 12/04/16 17:28 Dose: 1,000 mg Ondansetron HCl (Zofran Inj) 4 mg IVP Q8 PRN PRN Reason: Nausea/Vomiting Pantoprazole Sodium (Protonix Ec Tab) 40 mg PO DAILY [facility] Last Admin: 12/04/16 10:06 Dose: 40 mg Potassium Chloride (K-Dur 20 Meq Er Tab) 40 meq PO ONCE ONE Stop: 12/04/16 18:28 Quetiapine Fumarate (Seroquel) 200 mg PO BID [facility] PRN Reason: Protocol Last Admin: 12/04/16 17:27 Dose: 200 mg Zolpidem Tartrate (Ambien) 5 mg PO HS [facility] PRN Reason: Protocol Last Admin: 12/03/16 22:25 Dose: 5 mg - Labs Labs: 12/04/16 10:45 12/04/16 10:45 PT 12.8 Seconds (9.9-11.8) H 12/01/16 16:25 INR 1.19 (0.93-1.08) H 12/01/16 16:25 APTT 27.4 Seconds (23.7-30.8) 12/01/16 16:25 - Constitutional Appears: No Acute Distress - Head Exam Head Exam: ATRAUMATIC, NORMOCEPHALIC - Eye Exam Eye Exam: EOMI, PERRL - ENT Exam ENT Exam: Mucous Membranes Moist. absent: Mucous Membranes Dry - Respiratory Exam Respiratory Exam: Clear to Ausculation Bilateral. absent: Rales, Rhonchi, Wheezes - Cardiovascular Exam Cardiovascular Exam: +S1, +S2. absent: Rubs, Murmur - GI/Abdominal Exam GI & Abdominal Exam: Soft, Tenderness. absent: Distended, Guarding, Rigid - Extremities Exam Extremities Exam: Full ROM. absent: Pedal Edema - Neurological Exam Neurological Exam: Alert, Awake, Oriented x3 - Psychiatric Exam Psychiatric exam: Normal Affect, Normal Mood - Skin Skin Exam: Normal Color, Warm Assessment and Plan - Assessment and Plan (Free Text) Assessment: Assessment: Pelvic Abscess Crohn's Disease Flare Anxiety/Depression Hypokalemia Plan: Pt day 3 s/p unsuccessful abscess drainage with IRDr. Metcalf; CT guided aspiration was performed. Wound culture positive for ESBL. Pt started on ertapenem as per ID. Pt febrile with a temp of 100.5. Leukocytosis with a WBC of 15.5. Continue lexapro, klonopin, and seroquel for bipolar disorder. Pt receiving dilaudid for pain. Pt receving ambien for sleep. Pt started on proctofoam for hemorrhoids. Pt continued on mesalamine for Crohn's flare. GI/ DVt prophylaxis: protonix and SCDs. <Rangasamy,Ajantha - Last Filed: 12/05/16 16:05> Objective - Vital Signs/Intake and Output Vital Signs (last 24 hours): Temp Pulse Resp BP Pulse Ox 99.9 F H 72 16 106/64 97 12/05/16 15:55 12/05/16 15:55 12/05/16 15:55 12/05/16 15:55 12/05/16 15:55 Intake and Output: 12/05/16 12/05/16 06:59 18:59 Intake Total 600 0 Balance 600 0 - Medications Medications: Current Medications Acetaminophen (Tylenol 325mg Tab) 650 mg PO Q6H PRN PRN Reason: Pain, moderate (4-7) Last Admin: 12/05/16 01:13 Dose: 650 mg Clonazepam (Klonopin) 1 mg PO TID [facility] PRN Reason: Protocol Last Admin: 12/05/16 13:33 Dose: Not Given Docusate Sodium (Colace) 100 mg PO TID [facility] Last Admin: 12/05/16 13:33 Dose: Not Given Escitalopram Oxalate (Lexapro) 10 mg PO DAILY [facility] Last Admin: 12/05/16 10:43 Dose: Not Given Gabapentin (Neurontin) 800 mg PO TID [facility] PRN Reason: Protocol Last Admin: 12/05/16 13:33 Dose: Not Given Hydrocortisone (Cortizone 1% Cream) 0 gm TOP BID [facility] Last Admin: 12/05/16 10:42 Dose: Not Given Hydrocortisone/Pramoxine (Proctofoam) 1 gm TOP TID [facility] Last Admin: 12/05/16 13:33 Dose: Not Given Hydromorphone HCl (Dilaudid) 0.5 mg IVP Q3H PRN PRN Reason: Pain, severe (8-10) Last Admin: 12/05/16 13:47 Dose: 0.5 mg Ertapenem 1 gm/ Sodium (Chloride) 50 mls @ 100 mls/hr IVPB Q24H [facility] Stop: 12/11/16 12:46 Last Admin: 12/05/16 12:21 Dose: Not Given Lactated Ringer's (Lactated Ringer's) 1,000 mls @ 75 mls/hr IV .[id number] [facility] Stop: 12/05/16 17:46 Mesalamine (Pentasa) 1,000 mg PO QID [facility] Last Admin: 12/05/16 13:33 Dose: Not Given Ondansetron HCl (Zofran Inj) 4 mg IVP Q8 PRN PRN Reason: Nausea/Vomiting Pantoprazole Sodium (Protonix Ec Tab) 40 mg PO DAILY [facility] Last Admin: 12/05/16 10:43 Dose: Not Given Quetiapine Fumarate (Seroquel) 200 mg PO BID [facility] PRN Reason: Protocol Last Admin: 12/05/16 10:43 Dose: Not Given Zolpidem Tartrate (Ambien) 5 mg PO HS [facility] PRN Reason: Protocol Last Admin: 12/03/16 22:25 Dose: 5 mg - Labs Labs: 12/05/16 06:30 12/05/16 06:30 PT 12.8 Seconds (9.9-11.8) H 12/01/16 16:25 INR 1.19 (0.93-1.08) H 12/01/16 16:25 APTT 27.4 Seconds (23.7-30.8) 12/01/16 16:25 Assessment and Plan - Assessment and Plan (Free Text) Assessment: attending note; Patient seen and examined with resident in room 563. Patient is a 51-year-old female with a history of Crohn's disease, perirectal abscess, bipolar disorder, drug abuse, Opiate dependency and noncompliance with follow-up is admitted with abdominal pain. CT showed pelvic Cyst with lymphadenopathy, partial obstruction consistent with Crohn' and dilated CBD. GI and surgery evaluation appreciated. status post perirectal abscess drainage by IR Dr. Derrell Metcalf yesterday. cultures positive for ESBL. Started on Ertapenem. Case discussed with surgery in detail. Bipolar disorder; psychiatric evaluation appreciated. 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 Attending/Attestation - Attestation I have personally seen and examined this patient.: Yes I have fully participated in the care of the patient.: Yes I have reviewed all pertinent clinical information, including history, physical exam and plan: Yes
[2016-12-05] MEDS: HYDROmorphone 0.5 mg/0.5 ml ISec IVP PRN ×6 (01:14→20:30)
--- NOTE | 2016-12-05 01:40 | CP.PCM.PN ---
Subjective - Date & Time of Evaluation Date of Evaluation: 12/05/16 Time of Evaluation: 01:39 - Subjective Subjective: # 24 angiocath was inserted in left upper forearm. Dx:Poor venous access. Objective - Vital Signs/Intake and Output Vital Signs (last 24 hours): Temp Pulse Resp BP Pulse Ox 100.9 F H 72 20 104/57 L 100 12/05/16 01:13 12/04/16 16:00 12/04/16 16:00 12/04/16 16:00 12/04/16 16:00 Intake and Output: 12/04/16 12/05/16 18:59 06:59 Intake Total 600 Balance 600 - Medications Medications: Current Medications Acetaminophen (Tylenol 325mg Tab) 650 mg PO Q6H PRN PRN Reason: Pain, moderate (4-7) Last Admin: 12/05/16 01:13 Dose: 650 mg Clonazepam (Klonopin) 1 mg PO TID [facility] PRN Reason: Protocol Last Admin: 12/04/16 17:28 Dose: 1 mg Escitalopram Oxalate (Lexapro) 10 mg PO DAILY [facility] Last Admin: 12/04/16 10:05 Dose: 10 mg Gabapentin (Neurontin) 800 mg PO TID [facility] PRN Reason: Protocol Last Admin: 12/04/16 17:27 Dose: 800 mg Hydrocortisone (Cortizone 1% Cream) 0 gm TOP BID [facility] Last Admin: 12/04/16 17:48 Dose: Not Given Hydrocortisone/Pramoxine (Proctofoam) 1 gm TOP TID [facility] Last Admin: 12/04/16 17:28 Dose: 1 gm Hydromorphone HCl (Dilaudid) 0.5 mg IVP Q3H PRN PRN Reason: Pain, severe (8-10) Last Admin: 12/05/16 01:14 Dose: 0.5 mg Ertapenem 1 gm/ Sodium (Chloride) 50 mls @ 100 mls/hr IVPB Q24H [facility] Stop: 12/11/16 12:46 Last Admin: 12/04/16 13:39 Dose: 100 mls/hr Mesalamine (Pentasa) 1,000 mg PO QID [facility] Last Admin: 12/04/16 22:04 Dose: 1,000 mg Ondansetron HCl (Zofran Inj) 4 mg IVP Q8 PRN PRN Reason: Nausea/Vomiting Pantoprazole Sodium (Protonix Ec Tab) 40 mg PO DAILY [facility] Last Admin: 12/04/16 10:06 Dose: 40 mg Quetiapine Fumarate (Seroquel) 200 mg PO BID [facility] PRN Reason: Protocol Last Admin: 12/04/16 17:27 Dose: 200 mg Zolpidem Tartrate (Ambien) 5 mg PO HS [facility] PRN Reason: Protocol Last Admin: 12/03/16 22:25 Dose: 5 mg - Labs Labs: 12/04/16 10:45 12/04/16 10:45 PT 12.8 Seconds (9.9-11.8) H 12/01/16 16:25 INR 1.19 (0.93-1.08) H 12/01/16 16:25 APTT 27.4 Seconds (23.7-30.8) 12/01/16 16:25
[2016-12-05] MEDS ORDERED: HYDROmorphone 0.5 mg/0.5 ml ISec IVP STA (06:03)
[2016-12-05 07:00] LABS: ADD MANUAL DIFF? NO
[2016-12-05 07:14] LABS: BASO # 0.04 K/mm3 (0.0-2.0); BASO % 0.2 % (0.0-3.0); EOS # 0.8 (0.0-0.7); EOS % 4.3 % (1.5-5.0); GRAN # 14.81 (1.4-6.5); GRAN % 77.7 % (50.0-68.0); HEMATOCRIT 30.1 % (36.0-48.0); LYMPH % 10.3 % (22.0-35.0); MEAN CELL VOLUME 85.8 fL (80.0-105.0); MEAN CORPUSCULAR HEMOGLOBIN 27.9 pg (25.0-35.0); MEAN CORPUSCULAR HGB CONC 32.6 g/dl (31.0-37.0); MEAN PLATELET VOLUME 10.2 fl (7.0-11.0); MONO # 1.4 (0.1-0.6); MONO % 7.5 % (1.0-6.0); PLATELET COUNT 367 10^3/uL (120.0-450.0); RED CELL DISTRIBUTION WIDTH 16.9 % (11.5-14.5); WHITE BLOOD COUNT 19.1 10^3/ul (4.5-11.0)
--- NOTE | 2016-12-05 07:33 | CP.PCM.PN ---
<Martine Coleman - Last Filed: 12/05/16 16:32> Subjective - Date & Time of Evaluation Date of Evaluation: 12/05/16 Time of Evaluation: 06:30 - Subjective Subjective: Pt seen and evaluated at the bedside. Pt has complaint of perirectal pain and has improved abdominal pain from yesterday. Denies N/V. Objective - Vital Signs/Intake and Output Vital Signs (last 24 hours): Temp Pulse Resp BP Pulse Ox 100.9 F H 72 20 104/57 L 100 12/05/16 01:13 12/04/16 16:00 12/04/16 16:00 12/04/16 16:00 12/04/16 16:00 Intake and Output: 12/05/16 12/05/16 06:59 18:59 Intake Total 600 Balance 600 - Medications Medications: Current Medications Acetaminophen (Tylenol 325mg Tab) 650 mg PO Q6H PRN PRN Reason: Pain, moderate (4-7) Last Admin: 12/05/16 01:13 Dose: 650 mg Clonazepam (Klonopin) 1 mg PO TID [facility] PRN Reason: Protocol Last Admin: 12/04/16 17:28 Dose: 1 mg Escitalopram Oxalate (Lexapro) 10 mg PO DAILY [facility] Last Admin: 12/04/16 10:05 Dose: 10 mg Gabapentin (Neurontin) 800 mg PO TID [facility] PRN Reason: Protocol Last Admin: 12/04/16 17:27 Dose: 800 mg Hydrocortisone (Cortizone 1% Cream) 0 gm TOP BID [facility] Last Admin: 12/04/16 17:48 Dose: Not Given Hydrocortisone/Pramoxine (Proctofoam) 1 gm TOP TID [facility] Last Admin: 12/04/16 17:28 Dose: 1 gm Hydromorphone HCl (Dilaudid) 0.5 mg IVP Q3H PRN PRN Reason: Pain, severe (8-10) Last Admin: 12/05/16 07:21 Dose: 0.5 mg Ertapenem 1 gm/ Sodium (Chloride) 50 mls @ 100 mls/hr IVPB Q24H [facility] Stop: 12/11/16 12:46 Last Admin: 12/04/16 13:39 Dose: 100 mls/hr Mesalamine (Pentasa) 1,000 mg PO QID [facility] Last Admin: 12/04/16 22:04 Dose: 1,000 mg Ondansetron HCl (Zofran Inj) 4 mg IVP Q8 PRN PRN Reason: Nausea/Vomiting Pantoprazole Sodium (Protonix Ec Tab) 40 mg PO DAILY [facility] Last Admin: 12/04/16 10:06 Dose: 40 mg Quetiapine Fumarate (Seroquel) 200 mg PO BID [facility] PRN Reason: Protocol Last Admin: 12/04/16 17:27 Dose: 200 mg Zolpidem Tartrate (Ambien) 5 mg PO HS [facility] PRN Reason: Protocol Last Admin: 12/03/16 22:25 Dose: 5 mg - Labs Labs: 12/05/16 06:30 12/04/16 10:45 PT 12.8 Seconds (9.9-11.8) H 12/01/16 16:25 INR 1.19 (0.93-1.08) H 12/01/16 16:25 APTT 27.4 Seconds (23.7-30.8) 12/01/16 16:25 - Additional Findings Additional findings: - Constitutional Appears: Non-toxic, No Acute Distress - Head Exam Head Exam: ATRAUMATIC - ENT Exam ENT Exam: Mucous Membranes Moist - Respiratory Exam Respiratory Exam: absent: Accessory Muscle Use, Respiratory Distress - GI/Abdominal Exam GI & Abdominal Exam: Soft, Tenderness absent: Distended, Firm, Guarding, Rigid - Neurological Exam Neurological Exam: Alert, Awake, Oriented x3 - Psychiatric Exam Psychiatric exam: Normal Affect, Normal Mood - Skin Skin Exam: Normal Color, Warm. 3 mm opening around midline L5 area of back, w/o discharge. Assessment and Plan - Assessment and Plan (Free Text) Plan: 51F presents with PMHx of Crohn's disease is seen for Crohn flareup and pelvic abscess. Pt had perirectal abscess drained by IR POD 3. Drained only 4 cc of fluid. -OR today for I and D of perirectal abscess - strict Is&Os, monitor vitals, IVF - GI is consulted. - IR drainage POD #3 Further recommendations as per Dr. Kaia Coleman, PGY1 <Dheeraj Marti - Last Filed: 12/10/16 20:50> Subjective - Date & Time of Evaluation Date of Evaluation: 12/05/16 Time of Evaluation: 09:05 Objective - Vital Signs/Intake and Output Vital Signs (last 24 hours): Temp Pulse Resp BP Pulse Ox 98 F 62 20 108/59 L 98 12/10/16 16:00 12/10/16 16:00 12/10/16 16:00 12/10/16 16:00 12/10/16 16:00 Intake and Output: 12/10/16 12/11/16 18:59 06:59 Intake Total 380 Balance 380 - Medications Medications: Current Medications Acetaminophen (Tylenol 325mg Tab) 650 mg PO Q6H PRN PRN Reason: Pain, moderate (4-7) Last Admin: 12/08/16 20:36 Dose: 650 mg Al Hydrox/Mg Hydrox/Simethicone (Maalox Plus 30 Ml) 30 ml PO DAILY PRN PRN Reason: Indigestion / Heartburn Clonazepam (Klonopin) 1 mg PO TID [facility] Stop: 12/15/16 18:01 Last Admin: 12/10/16 20:05 Dose: 1 mg Docusate Sodium (Colace) 100 mg PO TID [facility] Last Admin: 12/10/16 20:05 Dose: 100 mg Escitalopram Oxalate (Lexapro) 10 mg PO DAILY [facility] Last Admin: 12/10/16 10:08 Dose: 10 mg Gabapentin (Neurontin) 800 mg PO TID [facility] PRN Reason: Protocol Last Admin: 12/10/16 20:04 Dose: 800 mg Heparin Sodium (Porcine) (Heparin) 5,000 units SC Q12 [facility] PRN Reason: Protocol Last Admin: 12/10/16 09:49 Dose: Not Given Hydrocortisone (Cortizone 1% Cream) 0 gm TOP BID [facility] Last Admin: 12/10/16 20:06 Dose: 1 appl Hydrocortisone/Pramoxine (Proctofoam) 1 gm TOP TID [facility] Last Admin: 12/10/16 20:26 Dose: Not Given Meropenem 1g/NS 100mL IVPB (Meropenem 1g/Ns 100ml Ivpb) 100 mls @ 100 mls/hr IVPB Q8H [facility] Last Admin: 12/10/16 19:05 Dose: 100 mls/hr Ondansetron HCl (Zofran Inj) 4 mg IVP Q8 PRN PRN Reason: Nausea/Vomiting Oxycodone HCl (Oxycontin Extended Release Tab) 60 mg PO Q12 [facility] Oxycodone HCl (Oxycodone Immediate Release Tab) 15 mg PO BID PRN PRN Reason: Pain, moderate (4-7) Last Admin: 12/10/16 18:19 Dose: 15 mg Pantoprazole Sodium (Protonix Inj) 40 mg IVP DAILY [facility] Last Admin: 12/10/16 09:53 Dose: 40 mg Quetiapine Fumarate (Seroquel) 200 mg PO BID [facility] PRN Reason: Protocol Last Admin: 12/10/16 20:05 Dose: 200 mg Simethicone (Mylicon Chew Tab) 80 mg PO [facility] PRN PRN Reason: GI distress Last Admin: 12/09/16 17:12 Dose: 80 mg Zolpidem Tartrate (Ambien) 5 mg PO [facility] PRN Reason: Protocol Last Admin: 12/10/16 00:34 Dose: 5 mg - Labs Labs: 12/10/16 06:30 12/09/16 05:30 PT 13.4 Seconds (9.9-11.8) H 12/07/16 08:14 INR 1.24 (0.93-1.08) H 12/07/16 08:14 APTT 31.0 Seconds (23.7-30.8) H 12/07/16 08:14 Assessment and Plan - Assessment and Plan (Free Text) Assessment: I have seen and examined this patient myself. I agree with assessment and plan as per resident's note.
[2016-12-05 07:43] LABS: ALB/GLOB RATIO 0.7 (1.1-1.8); ALKALINE PHOSPHATASE 74 U/L (38-133); ALT/SGPT 10 U/L (7-56); AST/SGOT 15 U/L (15-39); BILIRUBIN,TOTAL 0.4 mg/dL (0.2-1.3); BLOOD UREA NITROGEN 7 mg/dL (7-21); CALCIUM 7.3 mg/dL (8.4-10.5); CARBON DIOXIDE 26 mmol/L (21-33); CHLORIDE 105 mmol/L (98-107); GFR AFRICAN-AMERICAN > 60; GLUCOSE,RANDOM 85 mg/dL (70-110); PHOSPHOROUS 3.1 mg/dL (2.5-4.5); POTASSIUM 4.3 mmol/L (3.6-5.0); SODIUM 137 mmol/L (132-148); TOTAL PROTEIN 5.4 g/dL (5.8-8.3)
--- NOTE | 2016-12-05 10:08 | CT ---
PROCEDURE: CT Abdomen and Pelvis without intravenous contrast HISTORY: Abdominal pain. Relevant surgical history: Colon resection. By history greater than 6 months from the time of this study. Relevant medical history: Crohn's disease. Relevant interventional procedure(s): 12/02/[address]-guided perirectal abscess drainage. COMPARISON: 12/01/2016. CT abdomen and pelvis. Summary of findings on the comparison examination: Pelvic abscess. Ileus and/or partial/early bowel obstruction. TECHNIQUE: Unenhanced study. Neither oral nor intravenous contrast administered. Sensitivity and specificity for acute inflammatory processes limited by the absence of oral and intravenous contrast. Radiation dose: Total exam DLP = mGy-cm. FINDINGS: LOWER THORAX: Unremarkable. LIVER: Unremarkable. No gross lesion or ductal dilatation. GALLBLADDER AND BILE DUCTS: Unremarkable. PANCREAS: Unremarkable. No gross lesion or ductal dilatation. SPLEEN: Unremarkable. ADRENALS: Unremarkable. No mass. KIDNEYS AND URETERS: Unremarkable. No hydronephrosis. No solid mass. Persistent fullness to the left collecting system is unchanged. VASCULATURE: Unremarkable. No aortic aneurysm. BOWEL: Stable distention of colon and small bowel. No suspicious findings at the anastomotic suture lines. There is a new component of constipation not seen on the prior study. Distended colon with fecal debris identified in its entirety to the point of the region of the the thick-walled complex fluid collection. APPENDIX: The appendix is not visualized presumably resected. PERITONEUM: Unremarkable. No free fluid. No free air. LYMPH NODES: Stable abdominal, retroperitoneal, pelvic and inguinal adenopathy. BLADDER: Unremarkable. REPRODUCTIVE: Unremarkable. BONES: No acute fracture. OTHER FINDINGS: Stable perirectal fluid collection, thick walled in the cul-de-sac and to the left of the midline unchanged. IMPRESSION: 1. Persistent dilatation of colon and small bowel. No gross abnormalities at the anastomotic suture line. 2. New constipation, the colon is distended in its entirety filled with fecal debris without obvious, apparent mechanical obstruction. 3. Stability with respect to extensive lymphadenopathy. 4. Stability with respect to the collection in the pelvis previously subjected to percutaneous manipulation.
[2016-12-05] MEDS: Hydrocortisone 1% Cream (30 GM) TOP SCH (10:42)
[2016-12-05] MEDS: Pantoprazole 40 mg EC Tab PO SCH (10:43)
[2016-12-05] MEDS: Mesalamine ER Cap 500 MG PO SCH ×3 (10:43→22:53)
[2016-12-05] MEDS: Hydrocortisone-Pramoxine 1%-1% Foam(10 gm) TOP SCH ×2 (10:43→13:33)
[2016-12-05] MEDS ORDERED: Bupivacaine 0.5% Inj(30mL) ONE (12:06)
[2016-12-05] MEDS ORDERED: Midazolam 2 MG/2 ML VIAL ONE (13:04)
[2016-12-05] MEDS ORDERED: Propofol 10 mg/ml Inj (20 ML) ONE (13:04)
[2016-12-05] MEDS ORDERED: Succinylcholine 200 mg/10 ml Inj IV ONE (13:07)
[2016-12-05] MEDS ORDERED: HYDROmorphone 0.5 mg/0.5 ml ISec ONE (13:47)
--- NOTE | 2016-12-05 13:59 | CP.PCM.PN ---
<Demian Desai - Last Filed: 12/05/16 14:01> Subjective - Date & Time of Evaluation Date of Evaluation: 12/05/16 Time of Evaluation: 07:12 - Subjective Subjective: Pt seen and examined. Pt reports that she is feeling a little bit better today but still weak. She complains of perirectal pain. She reports her abdominal pain is a bit better. Pt denies fever, chills, chest pain, shortness of breath, nausea, and vomiting. Objective - Vital Signs/Intake and Output Vital Signs (last 24 hours): Temp Pulse Resp BP Pulse Ox 99.8 F H 68 20 104/61 97 12/05/16 13:09 12/05/16 13:09 12/05/16 13:09 12/05/16 13:09 12/05/16 13:09 Intake and Output: 12/05/16 12/05/16 06:59 18:59 Intake Total 600 Balance 600 - Medications Medications: Current Medications Acetaminophen (Tylenol 325mg Tab) 650 mg PO Q6H PRN PRN Reason: Pain, moderate (4-7) Last Admin: 12/05/16 01:13 Dose: 650 mg Clonazepam (Klonopin) 1 mg PO TID [facility] PRN Reason: Protocol Last Admin: 12/05/16 13:33 Dose: Not Given Docusate Sodium (Colace) 100 mg PO TID [facility] Last Admin: 12/05/16 13:33 Dose: Not Given Escitalopram Oxalate (Lexapro) 10 mg PO DAILY [facility] Last Admin: 12/05/16 10:43 Dose: Not Given Gabapentin (Neurontin) 800 mg PO TID [facility] PRN Reason: Protocol Last Admin: 12/05/16 13:33 Dose: Not Given Hydrocortisone (Cortizone 1% Cream) 0 gm TOP BID [facility] Last Admin: 12/05/16 10:42 Dose: Not Given Hydrocortisone/Pramoxine (Proctofoam) 1 gm TOP TID [facility] Last Admin: 12/05/16 13:33 Dose: Not Given Hydromorphone HCl (Dilaudid) 0.5 mg IVP Q3H PRN PRN Reason: Pain, severe (8-10) Last Admin: 12/05/16 13:47 Dose: 0.5 mg Ertapenem 1 gm/ Sodium (Chloride) 50 mls @ 100 mls/hr IVPB Q24H [facility] Stop: 12/11/16 12:46 Last Admin: 12/05/16 12:21 Dose: Not Given Mesalamine (Pentasa) 1,000 mg PO QID [facility] Last Admin: 12/05/16 13:33 Dose: Not Given Ondansetron HCl (Zofran Inj) 4 mg IVP Q8 PRN PRN Reason: Nausea/Vomiting Pantoprazole Sodium (Protonix Ec Tab) 40 mg PO DAILY [facility] Last Admin: 12/05/16 10:43 Dose: Not Given Quetiapine Fumarate (Seroquel) 200 mg PO BID [facility] PRN Reason: Protocol Last Admin: 12/05/16 10:43 Dose: Not Given Zolpidem Tartrate (Ambien) 5 mg PO HS [facility] PRN Reason: Protocol Last Admin: 12/03/16 22:25 Dose: 5 mg - Labs Labs: 12/05/16 06:30 12/05/16 06:30 PT 12.8 Seconds (9.9-11.8) H 12/01/16 16:25 INR 1.19 (0.93-1.08) H 12/01/16 16:25 APTT 27.4 Seconds (23.7-30.8) 12/01/16 16:25 - Constitutional Appears: No Acute Distress - Head Exam Head Exam: ATRAUMATIC, NORMOCEPHALIC - Eye Exam Eye Exam: EOMI, PERRL Pupil Exam: PERRL - ENT Exam ENT Exam: Mucous Membranes Moist. absent: Mucous Membranes Dry - Neck Exam Neck Exam: Full ROM. absent: Lymphadenopathy - Respiratory Exam Respiratory Exam: Clear to Ausculation Bilateral. absent: Rales, Rhonchi, Wheezes - Cardiovascular Exam Cardiovascular Exam: +S1, +S2. absent: Gallop, Rubs - GI/Abdominal Exam GI & Abdominal Exam: Soft, Tenderness. absent: Distended, Rigid - Extremities Exam Extremities Exam: Full ROM. absent: Pedal Edema - Neurological Exam Neurological Exam: Alert, Awake, Oriented x3 - Psychiatric Exam Psychiatric exam: Normal Affect, Normal Mood - Skin Skin Exam: Normal Color, Warm Assessment and Plan - Assessment and Plan (Free Text) Assessment: Assessment: Pelvic Abscess Crohn's Disease Flare Anxiety/Depression Hypokalemia Plan: Pt day 4 s/p unsuccessful abscess drainage with IRDr. Metcalf; CT guided aspiration was performed. Wound culture positive for ESBL. Pt started on ertapenem as per ID. PT on day 2 of ertapenem. Pt febrile with a Tmax of 100.9. Leukocytosis trending up with a WBC of 19.1. Pt taken to OR today for drainage of pelvix abscess today with Dr. Marti. Continue lexapro, klonopin, and seroquel for bipolar disorder. Pt receiving dilaudid for pain. Pt receving ambien for sleep. Pt started on proctofoam for hemorrhoids. Pt continued on mesalamine for Crohn's flare. GI/DVt prophylaxis: protonix and SCDs. <Cristina Haley - Last Filed: 12/06/16 17:12> Objective - Vital Signs/Intake and Output Vital Signs (last 24 hours): Temp Pulse Resp BP Pulse Ox 98.3 F 72 18 111/68 94 L 12/06/16 13:32 12/06/16 09:01 12/06/16 09:01 12/05/16 16:25 12/06/16 09:01 Intake and Output: 12/06/16 12/06/16 06:59 18:59 Intake Total 780 Balance 780 - Medications Medications: Current Medications Acetaminophen (Tylenol 325mg Tab) 650 mg PO Q6H PRN PRN Reason: Pain, moderate (4-7) Last Admin: 12/05/16 01:13 Dose: 650 mg Clonazepam (Klonopin) 1 mg PO TID [facility] PRN Reason: Protocol Last Admin: 12/06/16 17:05 Dose: Not Given Docusate Sodium (Colace) 100 mg PO TID [facility] Last Admin: 12/05/16 13:33 Dose: Not Given Escitalopram Oxalate (Lexapro) 10 mg PO DAILY [facility] Last Admin: 12/06/16 09:35 Dose: 10 mg Gabapentin (Neurontin) 800 mg PO TID [facility] PRN Reason: Protocol Last Admin: 12/06/16 17:05 Dose: 800 mg Hydrocortisone (Cortizone 1% Cream) 0 gm TOP BID [facility] Last Admin: 12/06/16 17:05 Dose: Not Given Hydrocortisone/Pramoxine (Proctofoam) 1 gm TOP TID [facility] Last Admin: 12/06/16 17:05 Dose: Not Given Hydromorphone HCl (Dilaudid) 1 mg IVP Q3 PRN PRN Reason: Pain, severe (8-10) Last Admin: 12/06/16 13:29 Dose: 1 mg Ertapenem 1 gm/ Sodium (Chloride) 50 mls @ 100 mls/hr IVPB Q24H [facility] Stop: 12/11/16 12:46 Last Admin: 12/06/16 13:29 Dose: 100 mls/hr Potassium Chloride 40 meq/ (Sodium Chloride) 1,020 mls @ 100 mls/hr IV .[id number] [facility] Last Admin: 12/06/16 10:58 Dose: 100 mls/hr Mesalamine (Pentasa) 1,000 mg PO QID [facility] Last Admin: 12/06/16 17:05 Dose: 1,000 mg Ondansetron HCl (Zofran Inj) 4 mg IVP Q8 PRN PRN Reason: Nausea/Vomiting Pantoprazole Sodium (Protonix Ec Tab) 40 mg PO DAILY [facility] Last Admin: 12/05/16 10:43 Dose: Not Given Pantoprazole Sodium (Protonix Inj) 40 mg IVP DAILY [facility] Last Admin: 12/06/16 09:36 Dose: 40 mg Quetiapine Fumarate (Seroquel) 200 mg PO BID [facility] PRN Reason: Protocol Last Admin: 12/06/16 17:05 Dose: Not Given Zolpidem Tartrate (Ambien) 5 mg PO HS [facility] PRN Reason: Protocol Last Admin: 12/06/16 00:02 Dose: 5 mg - Labs Labs: 12/06/16 06:30 12/06/16 06:30 PT 12.8 Seconds (9.9-11.8) H 12/01/16 16:25 INR 1.19 (0.93-1.08) H 12/01/16 16:25 APTT 27.4 Seconds (23.7-30.8) 12/01/16 16:25 Assessment and Plan - Assessment and Plan (Free Text) Assessment: attending note; Patient seen and examined with resident in room 563. Patient is a 51-year-old female with a history of Crohn's disease, perirectal abscess, bipolar disorder, drug abuse, Opiate dependency and noncompliance with follow-up is admitted with abdominal pain. CT showed pelvic Cyst with lymphadenopathy, partial obstruction consistent with Crohn' and dilated CBD. GI and surgery evaluation appreciated. status post perirectal abscess drainage by IR Dr. Derrell Metcalf yesterday. cultures positive for ESBL. Started on Ertapenem. Case discussed with surgery in detail. plan for OR drainage today. Bipolar disorder; psychiatric evaluation appreciated. 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 Attending/Attestation - Attestation I have personally seen and examined this patient.: Yes I have fully participated in the care of the patient.: Yes I have reviewed all pertinent clinical information, including history, physical exam and plan: Yes
[2016-12-05] MEDS ORDERED: Etomidate 20 mg/10ml Inj IV ONE (14:04)
[2016-12-05] MEDS ORDERED: Rocuronium 10 mg/ml (5 ml) ONE (14:20)
--- NOTE | 2016-12-05 14:28 | CP.PCM.PN ---
Subjective - Date & Time of Evaluation Date of Evaluation: 12/05/16 Time of Evaluation: 10:25 - Subjective Subjective: Developed low-grade fevers overnight, complaining of abdominal pain, for CT scan today. Objective - Vital Signs/Intake and Output Vital Signs (last 24 hours): Temp Pulse Resp BP Pulse Ox 100.9 F H 72 20 104/57 L 100 12/05/16 01:13 12/04/16 16:00 12/04/16 16:00 12/04/16 16:00 12/04/16 16:00 Intake and Output: 12/05/16 12/05/16 06:59 18:59 Intake Total 600 Balance 600 - Medications Medications: Current Medications Acetaminophen (Tylenol 325mg Tab) 650 mg PO Q6H PRN PRN Reason: Pain, moderate (4-7) Last Admin: 12/05/16 01:13 Dose: 650 mg Clonazepam (Klonopin) 1 mg PO TID [facility] PRN Reason: Protocol Last Admin: 12/04/16 17:28 Dose: 1 mg Escitalopram Oxalate (Lexapro) 10 mg PO DAILY [facility] Last Admin: 12/04/16 10:05 Dose: 10 mg Gabapentin (Neurontin) 800 mg PO TID [facility] PRN Reason: Protocol Last Admin: 12/04/16 17:27 Dose: 800 mg Hydrocortisone (Cortizone 1% Cream) 0 gm TOP BID [facility] Last Admin: 12/04/16 17:48 Dose: Not Given Hydrocortisone/Pramoxine (Proctofoam) 1 gm TOP TID [facility] Last Admin: 12/04/16 17:28 Dose: 1 gm Hydromorphone HCl (Dilaudid) 0.5 mg IVP Q3H PRN PRN Reason: Pain, severe (8-10) Last Admin: 12/05/16 07:21 Dose: 0.5 mg Ertapenem 1 gm/ Sodium (Chloride) 50 mls @ 100 mls/hr IVPB Q24H [facility] Stop: 12/11/16 12:46 Last Admin: 12/04/16 13:39 Dose: 100 mls/hr Mesalamine (Pentasa) 1,000 mg PO QID [facility] Last Admin: 12/04/16 22:04 Dose: 1,000 mg Ondansetron HCl (Zofran Inj) 4 mg IVP Q8 PRN PRN Reason: Nausea/Vomiting Pantoprazole Sodium (Protonix Ec Tab) 40 mg PO DAILY [facility] Last Admin: 12/04/16 10:06 Dose: 40 mg Quetiapine Fumarate (Seroquel) 200 mg PO BID [facility] PRN Reason: Protocol Last Admin: 12/04/16 17:27 Dose: 200 mg Zolpidem Tartrate (Ambien) 5 mg PO HS [facility] PRN Reason: Protocol Last Admin: 12/03/16 22:25 Dose: 5 mg - Labs Labs: 12/05/16 06:30 12/05/16 06:30 PT 12.8 Seconds (9.9-11.8) H 12/01/16 16:25 INR 1.19 (0.93-1.08) H 12/01/16 16:25 APTT 27.4 Seconds (23.7-30.8) 12/01/16 16:25 - Constitutional Appears: Other (patient is in pain) - Head Exam Head Exam: NORMAL INSPECTION - Neck Exam Neck Exam: absent: Meningismus - Respiratory Exam Respiratory Exam: Decreased Breath Sounds - Cardiovascular Exam Cardiovascular Exam: +S1, +S2 - GI/Abdominal Exam GI & Abdominal Exam: Soft, Tenderness (diffuse, mild). absent: Distended, Firm , Guarding, Rigid Assessment and Plan - Assessment and Plan (Free Text) Plan: Assessment Pelvic abscess, probably related to the patient's Crohn's disease, S/P CT- guided drainage POD #3, growing ESBL-producing multidrug-resistant E. coli - now with new onset systemic Inflammatory Response syndrome, consider sepsis with associated worsening of the pelvic abscess asthma history of pneumonia eczema history of psoriasis anxiety history of depression bipolar disorder history of alcohol abuse history of right hemicolectomy history of perirectal abscess Plan reviewed repeat CT Abd. and pelvis; continue Ertapenem, will give a dose of IV Vancomycin and repeat blood cx, UA, urine cx and will continue to monitor clinically; follow up plan for possible surgery
[2016-12-05] MEDS ORDERED: Glycopyrrolate 0.2 mg/ml (2ml vial) ONE (14:51)
[2016-12-05] MEDS ORDERED: Neostigmine Methylsulfate 3mg/3ml Syringe IV ONE (14:51)
--- NOTE | 2016-12-05 15:41 | PCM.SURG1 ---
Surgeon's Initial Post Op Note - Surgeon's Notes Surgeon: Dr. Marti Museum Attendant: Dr. Holguin PGY2, Dr. Casarez PGY1 Type of Anesthesia: General Endo Pre-Operative Diagnosis: perirectal abscess Operative Findings: see dictation Post-Operative Diagnosis: same Operation Performed: I&D of perirectal abscess Specimen/Specimens Removed: wound Cx Estimated Blood Loss: EBL {In ML}: 10 Blood Products Given: N/A Drains Used: No Drains Post-Op Condition: Good Date of Surgery/Procedure: 12/05/16 Time of Surgery/Procedure: 15:40
--- NOTE | 2016-12-05 15:43 | PCM.PROC ---
Procedures Attestation:: I certify that I have explained the specified Operation(s) or Procedure(s), risks, benefits and reasonable alternatives to the Patient and/or other person responsible. The opportunity was given to ask questions and all questions answered - Central Line Placement Right Internal Jugular Triple Lumen Catheter Aseptic technique was employed throughout the procedure: Hand Hygiene done prior to procedure, Full sterile barriers (mask, hair cover, sterile gown, sterile gloves), Full body sterile drape, Chloraprep Antiseptic: 30 second prep for IJ or SC sites CVP Time Out Performed: Yes Pt. Placed on Pulse Ox Monitor: Yes Central Line Prep: Chlorhexidine-Alcohol Combination Ultrasound Used for Placement: Yes Central Line Lumen Inserted: triple Central Line Length: 16 cm Post Procedure: Sutured in Place, Good Blood Return, All Ports Aspirated, Flushed, Capped, Sterile Dressing Applied Secured by: Suture Post procedure dressing: Gauze, Clear vapor permeable Post Procedure X-Ray: Yes Patient Tolerated Procedure: Well, No Complications
[2016-12-05] MEDS ORDERED: HYDROmorphone 1 mg/ml ISec IVP PRN (15:45)
[2016-12-05] MEDS ORDERED: Lactated Ringer's 1,000 ML IV SCH (15:45)
[2016-12-05] MEDS ORDERED: HYDROmorphone 1 mg/ml ISec ONE (15:56)
[2016-12-05] MEDS ORDERED: HYDROmorphone 1 mg/ml ISec IVP ONE (16:00)
[2016-12-05] MEDS ORDERED: HYDROmorphone 0.5 mg/0.5 ml ISec IVP PRN (16:28)
--- NOTE | 2016-12-05 16:37 | RAD ---
HISTORY: RIJ TLC placement COMPARISON: 12/01/2016. FINDINGS: The right IJV line terminates in the SVC. LUNGS: There is apparent ill-defined airspace disease in the right upper lobe. The left lung is clear. PLEURA: No significant pleural effusion identified, no pneumothorax apparent. CARDIOVASCULAR: The cardiomediastinal silhouette is normal. OSSEOUS STRUCTURES: No significant abnormalities. VISUALIZED UPPER ABDOMEN: Normal. OTHER FINDINGS: None. IMPRESSION: Right IJV line terminates in the SVC. Question of developing right upper lobe pneumonia. Follow-up with PA and lateral chest radiographs is recommended.
[2016-12-05] MEDS: HYDROmorphone 1 mg/ml ISec IVP PRN ×2 (18:38→22:53)
[2016-12-06] MEDS: HYDROmorphone 1 mg/ml ISec IVP PRN ×4 (02:40→21:22)
[2016-12-06 03:30] LABS: URINE BILIRUBIN NEGATIVE (NEGATIVE); URINE BLOOD MODERATE (NEGATIVE); URINE GLUCOSE (UA) NEGATIVE (NEGATIVE); URINE KETONE NEGATIVE (NEGATIVE); URINE LEUKOCYTE ESTERASE NEGATIVE Leu/uL (NEGATIVE); URINE PROTEIN TRACE mg/dL (<30 mg/dL); URINE UROBILINOGEN 0.2 E.U./dL (<1 E.U./dL)
[2016-12-06 03:31] LABS: URINE APPEARANCE CLEAR (CLEAR); URINE COLOR YELLOW (YELLOW)
[2016-12-06 03:32] LABS: URINE BACTERIA MOD (NEG); URINE RBC 25 - 30 /hpf (0-2)
[2016-12-06] MEDS: HYDROmorphone 0.5 mg/0.5 ml ISec IVP PRN (04:44)
[2016-12-06 06:43] LABS: ADD MANUAL DIFF? NO
[2016-12-06 07:15] LABS: BASO # 0.02 K/mm3 (0.0-2.0); BASO % 0.1 % (0.0-3.0); EOS # 0.8 (0.0-0.7); EOS % 4.6 % (1.5-5.0); GRAN # 13.26 (1.4-6.5); GRAN % 76.9 % (50.0-68.0); HEMATOCRIT 26.5 % (36.0-48.0); LYMPH # 1.7 (1.2-3.4); LYMPH % 10.1 % (22.0-35.0); MEAN CORPUSCULAR HEMOGLOBIN 27.9 pg (25.0-35.0); MEAN CORPUSCULAR HGB CONC 32.5 g/dl (31.0-37.0); MEAN PLATELET VOLUME 9.8 fl (7.0-11.0); MONO # 1.4 (0.1-0.6); MONO % 8.3 % (1.0-6.0); PLATELET COUNT 382 10^3/uL (120.0-450.0); RED CELL DISTRIBUTION WIDTH 16.6 % (11.5-14.5); WHITE BLOOD COUNT 17.3 10^3/ul (4.5-11.0)
[2016-12-06 07:31] LABS: ALB/GLOB RATIO 0.6 (1.1-1.8); ALKALINE PHOSPHATASE 56 U/L (38-133); ALT/SGPT 12 U/L (7-56); AST/SGOT 17 U/L (15-39); BILIRUBIN,TOTAL 0.2 mg/dL (0.2-1.3); BLOOD UREA NITROGEN 7 mg/dL (7-21); CARBON DIOXIDE 23 mmol/L (21-33); CHLORIDE 106 mmol/L (98-107); GFR AFRICAN-AMERICAN > 60; GLUCOSE,RANDOM 73 mg/dL (70-110); MAGNESIUM 1.3 mg/dL (1.7-2.2); PHOSPHOROUS 2.7 mg/dL (2.5-4.5); SODIUM 134 mmol/L (132-148); TOTAL PROTEIN 4.2 g/dL (5.8-8.3)
[2016-12-06 07:54] LABS: CALCIUM 6.2 mg/dL (8.4-10.5)
[2016-12-06 08:49] LABS: POTASSIUM 2.8 mmol/L (3.6-5.0)
[2016-12-06] MEDS: Mesalamine ER Cap 500 MG PO SCH ×4 (09:35→21:22)
[2016-12-06] MEDS: Hydrocortisone-Pramoxine 1%-1% Foam(10 gm) TOP SCH ×3 (09:36→17:05)
[2016-12-06] MEDS: Hydrocortisone 1% Cream (30 GM) TOP SCH ×2 (09:36→17:05)
[2016-12-06] MEDS ORDERED: Pantoprazole 40 mg EC Tab PO SCH (10:00)
[2016-12-06] MEDS ORDERED: HYDROmorphone 1 mg/ml ISec IVP STA (10:10)
[2016-12-06] MEDS: Potassium Chloride 20 mEq 100 ML IVPB SCH ×2 (10:58→14:30)
--- NOTE | 2016-12-06 11:53 | PN ---
DATE: 12/06/2016 The patient is in bed in no acute distress, nontoxic. The patient was seen earlier this morning in r oom 564, bed 2. PHYSICAL EXAMINATION: VITAL SIGNS: Temperature is 102.9, blood pressure is 111/60, respiratory rate of 18, heart rate of 7 2. HEENT: Unremarkable. NECK: Supple. LUNGS: Have decreased breath sounds. HEART: Normal S1, S2. ABDOMEN: Soft. LABORATORY EXAMINATION: Reveals a white count of 17,000, hemoglobin of 8, platelets of 382, a BUN of 7, creatinine of 0.7. Procalcitonin is 0.05. Urinalysis is noted. Microbiology reveals ESBL E. co li. Review of the orders reveals the patient is on ertapenem. ASSESSMENT AND PLAN: A 51-year-old with a pelvic abscess related to Crohn's disease and status post CAT scan-guided drainage, ____, and extended spectrum [id number] multidrug resistant Es cherichia coli with systemic inflammatory response syndrome with sepsis and a pelvic abscess and anem ia, on ertapenem. The patient did have a history of intrauterine device in the past she states; georges stacey, it was taken out many years ago. I will follow with you. She states she has not been sexually active in the last 6 months. Omkar Mcneill MD cc: [phone] TT: 12/06/2016 11:53:18 Confirmation # [id number] Dictation # [id number] tn
--- NOTE | 2016-12-06 11:59 | CP.PCM.PN ---
<Edin Coburn - Last Filed: 12/06/16 11:55> Subjective - Date & Time of Evaluation Date of Evaluation: 12/06/16 Time of Evaluation: 11:55 - Subjective Subjective: SURGERY NOTE FOR DR. MARTI 51F seen and examined at bedside. Patient states she has pain and admits to drainage from the dressing. Denies bowel movement, states she is passing small flatus. Denies nausea and vomiting. Objective - Vital Signs/Intake and Output Vital Signs (last 24 hours): Temp Pulse Resp BP Pulse Ox 102.2 F H 72 18 111/68 94 L 12/06/16 09:01 12/06/16 09:01 12/06/16 09:01 12/05/16 16:25 12/06/16 09:01 Intake and Output: 12/06/16 12/06/16 06:59 18:59 Intake Total 780 Balance 780 - Medications Medications: Current Medications Acetaminophen (Tylenol 325mg Tab) 650 mg PO Q6H PRN PRN Reason: Pain, moderate (4-7) Last Admin: 12/05/16 01:13 Dose: 650 mg Clonazepam (Klonopin) 1 mg PO TID [facility] PRN Reason: Protocol Last Admin: 12/06/16 09:36 Dose: 1 mg Docusate Sodium (Colace) 100 mg PO TID [facility] Last Admin: 12/05/16 13:33 Dose: Not Given Escitalopram Oxalate (Lexapro) 10 mg PO DAILY [facility] Last Admin: 12/06/16 09:35 Dose: 10 mg Gabapentin (Neurontin) 800 mg PO TID [facility] PRN Reason: Protocol Last Admin: 12/06/16 09:36 Dose: 800 mg Hydrocortisone (Cortizone 1% Cream) 0 gm TOP BID [facility] Last Admin: 12/06/16 09:36 Dose: Not Given Hydrocortisone/Pramoxine (Proctofoam) 1 gm TOP TID [facility] Last Admin: 12/06/16 09:36 Dose: Not Given Hydromorphone HCl (Dilaudid) 1 mg IVP Q3 PRN PRN Reason: Pain, severe (8-10) Ertapenem 1 gm/ Sodium (Chloride) 50 mls @ 100 mls/hr IVPB Q24H [facility] Stop: 12/11/16 12:46 Last Admin: 12/05/16 12:21 Dose: Not Given Potassium Chloride (Potassium Chloride 20 Meq/100 Ml) 100 mls @ 50 mls/hr IVPB Q2H [facility] Stop: 12/06/16 12:59 Last Admin: 12/06/16 10:58 Dose: 50 mls/hr Potassium Chloride 40 meq/ (Sodium Chloride) 1,020 mls @ 100 mls/hr IV .[id number] [facility] Last Admin: 12/06/16 10:58 Dose: 100 mls/hr Mesalamine (Pentasa) 1,000 mg PO QID [facility] Last Admin: 12/06/16 09:35 Dose: 1,000 mg Ondansetron HCl (Zofran Inj) 4 mg IVP Q8 PRN PRN Reason: Nausea/Vomiting Pantoprazole Sodium (Protonix Ec Tab) 40 mg PO DAILY [facility] Last Admin: 12/05/16 10:43 Dose: Not Given Pantoprazole Sodium (Protonix Inj) 40 mg IVP DAILY [facility] Last Admin: 12/06/16 09:36 Dose: 40 mg Quetiapine Fumarate (Seroquel) 200 mg PO BID [facility] PRN Reason: Protocol Last Admin: 12/06/16 09:35 Dose: 200 mg Zolpidem Tartrate (Ambien) 5 mg PO HS [facility] PRN Reason: Protocol Last Admin: 12/06/16 00:02 Dose: 5 mg - Labs Labs: 12/06/16 06:30 12/06/16 06:30 PT 12.8 Seconds (9.9-11.8) H 12/01/16 16:25 INR 1.19 (0.93-1.08) H 12/01/16 16:25 APTT 27.4 Seconds (23.7-30.8) 12/01/16 16:25 - Constitutional Appears: Non-toxic, No Acute Distress - Head Exam Head Exam: ATRAUMATIC - ENT Exam ENT Exam: Mucous Membranes Moist - Respiratory Exam Respiratory Exam: Clear to Ausculation Bilateral, NORMAL BREATHING PATTERN - Cardiovascular Exam Cardiovascular Exam: REGULAR RHYTHM, +S1, +S2 - GI/Abdominal Exam GI & Abdominal Exam: Distended, Soft. absent: Firm, Guarding, Rigid, Tenderness , Rebound - Rectal Exam Additional comments: I&D site packed with iodoform, dressed with 4*4 and tape, draining sero sang fluid. - Neurological Exam Neurological Exam: Alert, Awake - Skin Skin Exam: Dry, Intact, Normal Color, Warm Assessment and Plan - Assessment and Plan (Free Text) Assessment: 51F s/p I&D of perirectal abscess POD#1 Plan: - pain control - daily packing and dressing - wound monitoring - possible OR Thursday/Thursday for colostomy Discussed with Dr. Kaia Coburn, PGY1 <Dheeraj Marti - Last Filed: 12/10/16 20:52> Subjective - Date & Time of Evaluation Date of Evaluation: 12/06/16 Time of Evaluation: 12:05 Objective - Vital Signs/Intake and Output Vital Signs (last 24 hours): Temp Pulse Resp BP Pulse Ox 98 F 62 20 108/59 L 98 12/10/16 16:00 12/10/16 16:00 12/10/16 16:00 12/10/16 16:00 12/10/16 16:00 Intake and Output: 12/10/16 12/11/16 18:59 06:59 Intake Total 380 Balance 380 - Medications Medications: Current Medications Acetaminophen (Tylenol 325mg Tab) 650 mg PO Q6H PRN PRN Reason: Pain, moderate (4-7) Last Admin: 12/08/16 20:36 Dose: 650 mg Al Hydrox/Mg Hydrox/Simethicone (Maalox Plus 30 Ml) 30 ml PO DAILY PRN PRN Reason: Indigestion / Heartburn Clonazepam (Klonopin) 1 mg PO TID [facility] Stop: 12/15/16 18:01 Last Admin: 12/10/16 20:05 Dose: 1 mg Docusate Sodium (Colace) 100 mg PO TID [facility] Last Admin: 12/10/16 20:05 Dose: 100 mg Escitalopram Oxalate (Lexapro) 10 mg PO DAILY [facility] Last Admin: 12/10/16 10:08 Dose: 10 mg Gabapentin (Neurontin) 800 mg PO TID [facility] PRN Reason: Protocol Last Admin: 12/10/16 20:04 Dose: 800 mg Heparin Sodium (Porcine) (Heparin) 5,000 units SC Q12 [facility] PRN Reason: Protocol Last Admin: 12/10/16 09:49 Dose: Not Given Hydrocortisone (Cortizone 1% Cream) 0 gm TOP BID [facility] Last Admin: 12/10/16 20:06 Dose: 1 appl Hydrocortisone/Pramoxine (Proctofoam) 1 gm TOP TID [facility] Last Admin: 12/10/16 20:26 Dose: Not Given Meropenem 1g/NS 100mL IVPB (Meropenem 1g/Ns 100ml Ivpb) 100 mls @ 100 mls/hr IVPB Q8H [facility] Last Admin: 12/10/16 19:05 Dose: 100 mls/hr Ondansetron HCl (Zofran Inj) 4 mg IVP Q8 PRN PRN Reason: Nausea/Vomiting Oxycodone HCl (Oxycontin Extended Release Tab) 60 mg PO Q12 [facility] Oxycodone HCl (Oxycodone Immediate Release Tab) 15 mg PO BID PRN PRN Reason: Pain, moderate (4-7) Last Admin: 12/10/16 18:19 Dose: 15 mg Pantoprazole Sodium (Protonix Inj) 40 mg IVP DAILY [facility] Last Admin: 12/10/16 09:53 Dose: 40 mg Quetiapine Fumarate (Seroquel) 200 mg PO BID [facility] PRN Reason: Protocol Last Admin: 12/10/16 20:05 Dose: 200 mg Simethicone (Mylicon Chew Tab) 80 mg PO [facility] PRN PRN Reason: GI distress Last Admin: 12/09/16 17:12 Dose: 80 mg Zolpidem Tartrate (Ambien) 5 mg PO [facility] PRN Reason: Protocol Last Admin: 12/10/16 00:34 Dose: 5 mg - Labs Labs: 12/10/16 06:30 12/09/16 05:30 PT 13.4 Seconds (9.9-11.8) H 12/07/16 08:14 INR 1.24 (0.93-1.08) H 12/07/16 08:14 APTT 31.0 Seconds (23.7-30.8) H 12/07/16 08:14 Assessment and Plan - Assessment and Plan (Free Text) Assessment: I have seen and examined this patient myself. I agree with assessment and plan as per resident's note.
--- NOTE | 2016-12-06 13:56 | CP.PCM.PN ---
Subjective - Date & Time of Evaluation Date of Evaluation: 12/06/16 Time of Evaluation: 10:30 - Subjective Subjective: Patient seen and examined in room 564 with surgeon. patient is complaining of abdominal pain and back pain. Status post perirectal abscess drainage yesterday. Denies any chest pain, shortness of breath. denies any fevers, chills. currently on liquid diet. Denies any nausea, vomiting. Review of Systems - Constitutional Constitutional: absent: Fever, Weakness - EENT Eyes: absent: Blurred Vision Nose/Mouth/Throat: absent: Nasal Congestion - Cardiovascular Cardiovascular: absent: Chest Pain - Respiratory Respiratory: absent: Cough, Dyspnea, Dyspnea on Exertion - Gastrointestinal Gastrointestinal: Abdominal Pain. absent: Nausea, Vomiting - Musculoskeletal Musculoskeletal: Back Pain - Neurological Neurological: absent: Abnormal Gait, Weakness - Psychiatric Psychiatric: Anxiety, Depression - Hematologic/Lymphatic Hematologic: absent: Easy Bleeding, Easy Bruising Objective - Vital Signs/Intake and Output Vital Signs (last 24 hours): Temp Pulse Resp BP Pulse Ox 98.3 F 72 18 111/68 94 L 12/06/16 13:32 12/06/16 09:01 12/06/16 09:01 12/05/16 16:25 12/06/16 09:01 Intake and Output: 12/06/16 12/06/16 06:59 18:59 Intake Total 780 Balance 780 - Medications Medications: Current Medications Acetaminophen (Tylenol 325mg Tab) 650 mg PO Q6H PRN PRN Reason: Pain, moderate (4-7) Last Admin: 12/05/16 01:13 Dose: 650 mg Clonazepam (Klonopin) 1 mg PO TID [facility] PRN Reason: Protocol Last Admin: 12/06/16 09:36 Dose: 1 mg Docusate Sodium (Colace) 100 mg PO TID [facility] Last Admin: 12/05/16 13:33 Dose: Not Given Escitalopram Oxalate (Lexapro) 10 mg PO DAILY [facility] Last Admin: 12/06/16 09:35 Dose: 10 mg Gabapentin (Neurontin) 800 mg PO TID [facility] PRN Reason: Protocol Last Admin: 12/06/16 09:36 Dose: 800 mg Hydrocortisone (Cortizone 1% Cream) 0 gm TOP BID [facility] Last Admin: 12/06/16 09:36 Dose: Not Given Hydrocortisone/Pramoxine (Proctofoam) 1 gm TOP TID [facility] Last Admin: 12/06/16 09:36 Dose: Not Given Hydromorphone HCl (Dilaudid) 1 mg IVP Q3 PRN PRN Reason: Pain, severe (8-10) Last Admin: 12/06/16 13:29 Dose: 1 mg Ertapenem 1 gm/ Sodium (Chloride) 50 mls @ 100 mls/hr IVPB Q24H [facility] Stop: 12/11/16 12:46 Last Admin: 12/06/16 13:29 Dose: 100 mls/hr Potassium Chloride 40 meq/ (Sodium Chloride) 1,020 mls @ 100 mls/hr IV .[id number] [facility] Last Admin: 12/06/16 10:58 Dose: 100 mls/hr Mesalamine (Pentasa) 1,000 mg PO QID [facility] Last Admin: 12/06/16 09:35 Dose: 1,000 mg Ondansetron HCl (Zofran Inj) 4 mg IVP Q8 PRN PRN Reason: Nausea/Vomiting Pantoprazole Sodium (Protonix Ec Tab) 40 mg PO DAILY [facility] Last Admin: 12/05/16 10:43 Dose: Not Given Pantoprazole Sodium (Protonix Inj) 40 mg IVP DAILY [facility] Last Admin: 12/06/16 09:36 Dose: 40 mg Quetiapine Fumarate (Seroquel) 200 mg PO BID [facility] PRN Reason: Protocol Last Admin: 12/06/16 09:35 Dose: 200 mg Zolpidem Tartrate (Ambien) 5 mg PO HS [facility] PRN Reason: Protocol Last Admin: 12/06/16 00:02 Dose: 5 mg - Labs Labs: 12/06/16 06:30 12/06/16 06:30 PT 12.8 Seconds (9.9-11.8) H 12/01/16 16:25 INR 1.19 (0.93-1.08) H 12/01/16 16:25 APTT 27.4 Seconds (23.7-30.8) 12/01/16 16:25 - Constitutional Appears: Well, Non-toxic - Head Exam Head Exam: NORMAL INSPECTION - Eye Exam Eye Exam: Normal appearance - ENT Exam ENT Exam: Mucous Membranes Moist - Respiratory Exam Respiratory Exam: NORMAL BREATHING PATTERN - Cardiovascular Exam Cardiovascular Exam: REGULAR RHYTHM - GI/Abdominal Exam GI & Abdominal Exam: Soft, Tenderness - Rectal Exam Additional comments: dressing in the perirectal area. - Extremities Exam Extremities Exam: absent: Pedal Edema - Back Exam Back Exam: absent: CVA tenderness (L), CVA tenderness (R) - Neurological Exam Neurological Exam: Alert - Psychiatric Exam Psychiatric exam: Normal Affect - Skin Skin Exam: Normal Color Assessment and Plan - Assessment and Plan (Free Text) Assessment: 1.Patient is a 51-year-old female admitted with abdominal pain/partial bowel obstruction/perirectal abscess. Patient with a history of Crohn's disease and abdominal surgeries in the past. surgery evaluation appreciated. Status post incision and drainage of perirectal abscess. Dressing is intact. No significant discharge noted. Follow-up with surgery. continue clear liquid diet. 2. ESBL in the wound culture; currently on Ertapenem. 3. hypokalemia; IV potassium supplementation ordered. 4.crohn's disease; noncompliance with follow-up. GI evaluation appreciated. Continue mesalamine. Needs close outpatient follow-up with GI. 5. Bipolar disorder; continue Klonopin Lexapro, Seroquel. Psychiatric evaluation appreciated. 6. Chronic opiate dependency and multiple drug abuse in the past. 7. Pain management with Dilaudid. 8. GI prophylaxis with Protonix. Possible OR for colostomy if patient cannot tolerate diet.
[2016-12-06] MEDS ORDERED: Potassium Chloride 40 mEq/30 ml LIQ UD PO STA (23:50)
[2016-12-07] MEDS: Potassium Chloride 20 mEq 100 ML IVPB SCH ×2 (00:22→02:27)
[2016-12-07] MEDS: HYDROmorphone 1 mg/ml ISec IVP PRN ×5 (00:25→12:47)
[2016-12-07 08:15] LABS: ADD MANUAL DIFF? NO
[2016-12-07 08:18] LABS: BASO # 0.04 K/mm3 (0.0-2.0); BASO % 0.3 % (0.0-3.0); EOS # 0.7 (0.0-0.7); EOS % 5.1 % (1.5-5.0); GRAN # 10.25 (1.4-6.5); GRAN % 73.2 % (50.0-68.0); HEMATOCRIT 28.3 % (36.0-48.0); LYMPH # 1.9 (1.2-3.4); LYMPH % 13.7 % (22.0-35.0); MEAN CELL VOLUME 86.3 fL (80.0-105.0); MEAN CORPUSCULAR HGB CONC 32.5 g/dl (31.0-37.0); MEAN PLATELET VOLUME 9.6 fl (7.0-11.0); MONO # 1.1 (0.1-0.6); MONO % 7.7 % (1.0-6.0); PLATELET COUNT 453 10^3/uL (120.0-450.0); RED CELL DISTRIBUTION WIDTH 16.1 % (11.5-14.5)
[2016-12-07 08:28] LABS: ALB/GLOB RATIO 0.7 (1.1-1.8); ALKALINE PHOSPHATASE 84 U/L (38-133); ALT/SGPT 16 U/L (7-56); AST/SGOT 20 U/L (15-39); BILIRUBIN,TOTAL 0.3 mg/dL (0.2-1.3); BLOOD UREA NITROGEN 6 mg/dL (7-21); CALCIUM 8.1 mg/dL (8.4-10.5); CARBON DIOXIDE 25 mmol/L (21-33); CHLORIDE 102 mmol/L (98-107); GFR AFRICAN-AMERICAN > 60; GLUCOSE,RANDOM 98 mg/dL (70-110); INR 1.24 (0.93-1.08); POTASSIUM 4.8 mmol/L (3.6-5.0); SODIUM 133 mmol/L (132-148)
[2016-12-07] MEDS ORDERED: Succinylcholine 200 mg/10 ml Inj IV ONE (08:39)
[2016-12-07] MEDS ORDERED: Etomidate 20 mg/10ml Inj IV ONE (08:48)
[2016-12-07] MEDS ORDERED: ePHEDrine 50 mg/ml Inj ONE (08:57)
[2016-12-07] MEDS ORDERED: Phenylephrine 10 mg/ml Inj ONE (08:57)
[2016-12-07] MEDS ORDERED: metroNIDAZOLE IV 500 mg/100 ml 100 ML ONE (09:11)
--- NOTE | 2016-12-07 11:05 | PN ---
DATE: 12/07/2016 The patient is in bed in no acute distress, nontoxic in room 564. She is comfortable. She was seen earlier this morning. PHYSICAL EXAMINATION: VITAL SIGNS: Temperature of 101.8, blood pressure is 98/50, respiratory rate of 18, heart rate of 98 . HEENT: Unremarkable. NECK: Supple. LUNGS: Have decreased breath sounds. HEART: Normal S1, S2. ABDOMEN: Soft. LABORATORY DATA: Reveals a white count of 14,000, hemoglobin of 9, BUN of 6, creatinine of 0.7. Pro calcitonin 0.05. Urinalysis is noted. Microbiology reveals E. coli from body fluid, blood cultures are no growth. Urine cultures are no growth. Anal abscess cultures anaerobic no growth. Review of the orders reveals the patient's medications include the patient to be on ertapenem, antibi otic. The patient's case discussed with the patient. The patient is anxious about her surgery today . The patient is scheduled for a laparotomy for bowel obstruction and by Dr. Marti. Dr. Sarthak alarcon's note is reviewed from yesterday. ASSESSMENT AND PLAN: This is a 51-year-old with a pelvic abscess with Crohn's disease with extended- spectrum beta-lactamase Escherichia coli producing organism and systemic inflammatory response syndro me and sepsis with shock and pelvic abscess and the patient is scheduled for the OR today for laparot jessica and bowel obstruction surgery by Dr. Marti. We will continue ertapenem at this time pendin g OR findings. Omkar Mcneill MD cc: [id number] TT: 12/07/2016 11:04:34 Confirmation # [id number] Dictation # [id number]
[2016-12-07] MEDS ORDERED: Liquid Adhesive TOP ONE (11:47)
--- NOTE | 2016-12-07 12:05 | PCM.SURG1 ---
Surgeon's Initial Post Op Note - Surgeon's Notes Surgeon: Kaia Media Monitor: Ezio PGY2 Type of Anesthesia: General Endo Pre-Operative Diagnosis: Crohn's, vlad-rectal abscess, rectal stricture Operative Findings: vlad-rectal phlegmon Post-Operative Diagnosis: same Operation Performed: exploratory laparotomy, w. drainage of vlad-rectal abscess/ phlegmon, and diverting colostomy Specimen/Specimens Removed: perirectal phlegmon Estimated Blood Loss: EBL {In ML}: 50 Blood Products Given: N/A Drains Used: Terrell (x2) Date of Surgery/Procedure: 12/07/16 Time of Surgery/Procedure: 12:05
[2016-12-07] MEDS ORDERED: HYDROmorphone 1 mg/ml ISec ONE ×2 (12:11→12:46)
[2016-12-07] MEDS ORDERED: Lactated Ringer's 1,000 ML IV SCH (12:15)
[2016-12-07] MEDS ORDERED: HYDROmorphone 0.2 mg/ml (25ml) 25 ML IV ONE (12:30)
[2016-12-07] MEDS: HYDROmorphone 0.2 mg/ml (25ml) 25 ML IV PRN ×2 (13:23→19:07)
--- NOTE | 2016-12-07 14:52 | CP.CCUPN ---
CCU Subjective - Physician Review Events Since Last Encounter (Free Text): 12/07/16 14:41 Called from PACU post op from ex-lap and collectomy and perirectal abscess drainage. Pt has been difficult from pain control prospective , started on SHIPPING ROOM HELPER 2 ALBINA drains and colostomy placed. Critical Care Time Spent (in minutes): 55 CCU Objective - Vital Signs / Intake & Output Intake and Output (Last 8hrs): Intake & Output 12/06/16 12/07/16 12/07/16 22:59 06:59 14:59 Intake Total 591 051 2028 Balance 735 375 6273 Intake: IV 2600 Right triple Lumen 2600 Oral 540 240 Other: # Voids Urine, Voided 3 1 7 # Bowel Movements 0 0 - Physical Exam Head: Positive for: Atraumatic Pupils: Positive for: PERRL Extroacular Muscles: Positive for: EOMI Conjunctiva: Positive for: Normal Ears: Positive for: Normal Mouth: Positive for: Moist Mucous Membranes Pharnyx: Positive for: Normal Nose (External): Positive for: Atraumatic Nose (Internal): Positive for: Normal Inspection Neck: Positive for: Normal Range of Motion Respiratory/Chest: Positive for: Clear to Auscultation, Good Air Exchange Cardiovascular: Positive for: Regular Rate and Rhythm Abdomen: Positive for: Tenderness, Distention, Normal Bowel Sounds Upper Extremity: Positive for: Normal Inspection Lower Extremity: Positive for: Normal Inspection Neurological: Positive for: GCS=15, CN II-XII Intact, Speech Normal Psychiatric: Positive for: Alert, Oriented x 3, Normal Insight - Medications Active Medications: Active Medications Generic Name Dose Route Start Last Admin Trade Name Bobq PRN Reason Stop Dose Admin Acetaminophen 650 mg 12/01/16 21:00 12/05/16 01:13 Tylenol 325mg Tab PO 650 mg Q6H PRN Administration Pain, moderate (4-7) Clonazepam 1 mg 12/02/16 10:00 12/06/16 17:05 Klonopin PO Not Given TID [facility] Protocol Docusate Sodium 100 mg 12/05/16 14:00 12/05/16 13:33 Colace PO Not Given TID [facility] Escitalopram Oxalate 10 mg 12/02/16 10:00 12/06/16 09:35 Lexapro PO 10 mg DAILY [facility] Administration Gabapentin 800 mg 12/02/16 10:00 12/06/16 17:05 Neurontin PO 800 mg TID [facility] Administration Protocol Heparin Sodium (Porcine) 5,000 units 12/08/16 10:00 Heparin SC Q12 [facility] Protocol Hydrocortisone 0 gm 12/01/16 21:00 12/06/16 17:05 Cortizone 1% Cream TOP Not Given BID [facility] Hydrocortisone/Pramoxine 1 gm 12/04/16 18:00 12/06/16 17:05 Proctofoam TOP Not Given TID [facility] Ertapenem 1 gm/ Sodium 50 mls @ 100 mls/hr 12/04/16 12:45 12/06/16 13:29 Chloride IVPB 12/11/16 12:46 100 mls/hr Q24H [facility] Administration Potassium Chloride 40 meq/ 1,020 mls @ 150 mls/hr 12/07/16 07:22 Sodium Chloride IV .Q6H48M [facility] Hydromorphone HCl 25 mls @ 0 mls/hr 12/07/16 12:03 12/07/16 13:23 Dilaudid 0.2 Mg/Ml [employer] Officer IV 0.2 mls/hr PRN PRN Administration SHIPPING ROOM HELPER PER MD ORDER Protocol Per Protocol Mesalamine 1,000 mg 12/01/16 22:00 12/06/16 21:22 Pentasa PO 1,000 mg QID [facility] Administration Ondansetron HCl 4 mg 12/01/16 21:00 Zofran Inj IVP Q8 PRN Nausea/Vomiting Pantoprazole Sodium 40 mg 12/02/16 10:00 12/05/16 10:43 Protonix Ec Tab PO Not Given DAILY [facility] Pantoprazole Sodium 40 mg 12/06/16 10:00 12/06/16 09:36 Protonix Inj IVP 40 mg DAILY [facility] Administration Quetiapine Fumarate 200 mg 12/02/16 10:00 12/06/16 17:05 Seroquel PO Not Given BID [facility] Protocol Zolpidem Tartrate 5 mg 12/01/16 22:00 12/07/16 01:49 Ambien PO 5 mg HS [facility] Administration Protocol - Patient Studies Lab Studies: Microbiology Studies 12/05/16 15:26 Gram Stain - Final Abscess - Anal Anaerobic Culture - Final NO ANAEROBES ISOLATED. Wound Culture - Preliminary No growth. 12/05/16 11:00 Blood Culture - Preliminary Blood-Venous NO GROWTH AFTER 48 HOURS 12/05/16 11:30 Blood Culture - Preliminary Blood-Venous NO GROWTH AFTER 48 HOURS 12/06/16 03:00 Urine Culture - Final Urine No Growth (<1,000 CFU/ML) Lab Studies 12/07/16 12/07/16 12/07/16 Range/Units 08:14 03:00 00:09 WBC 14.0 H (4.5-11.0) 10^3/ul RBC 3.28 L (3.5-6.1) 10^6/uL Hgb 9.2 L (12.0-16.0) gm/dL Hct 28.3 L (36.0-48.0) % MCV 86.3 (80.0-105.0) fL MCH 28.0 (25.0-35.0) pg MCHC 32.5 (31.0-37.0) g/dl RDW 16.1 H (11.5-14.5) % Plt Count 453 H (120.0-450.0) 10^3/uL MPV 9.6 (7.0-11.0) fl Gran % 73.2 H (50.0-68.0) % Lymph % (Auto) 13.7 L (22.0-35.0) % [place] % (Auto) 7.7 H (1.0-6.0) % Eos % (Auto) 5.1 H (1.5-5.0) % Baso % (Auto) 0.3 (0.0-3.0) % Gran # 10.25 H (1.4-6.5) Lymph # 1.9 (1.2-3.4) [place] # 1.1 H (0.1-0.6) Eos # 0.7 (0.0-0.7) Baso # 0.04 (0.0-2.0) K/mm3 PT 13.4 H (9.9-11.8) Seconds INR 1.24 H (0.93-1.08) APTT 31.0 H (23.7-30.8) Seconds Sodium 133 (132-148) mmol/L Potassium 4.8 (3.6-5.0) mmol/L Chloride 102 (98-107) mmol/L Carbon Dioxide 25 (21-33) mmol/L Anion Gap 11 (10-20) BUN 6 L (7-21) mg/dL Creatinine 0.7 (0.5-1.4) mg/dL Est GFR ( Amer) > 60 Est GFR (Non-Af Amer) > 60 Random Glucose 98 (70-110) mg/dL Calcium 8.1 L (8.4-10.5) mg/dL Total Bilirubin 0.3 (0.2-1.3) mg/dL AST 20 (15-39) U/L ALT 16 (7-56) U/L Alkaline Phosphatase 84 (38-133) U/L Total Protein 6.0 (5.8-8.3) g/dL Albumin 2.4 L (3.0-4.8) g/dL Globulin 3.6 gm/dL Albumin/Globulin Ratio 0.7 L (1.1-1.8) Blood Type O POSITIVE Blood Type Confirm O POSITIVE Antibody Screen Negative Crossmatch See Detail BBK History Checked No verified bt Laboratory Results - last 24 hr 12/07/16 12/07/16 12/07/16 00:09 03:00 08:14 WBC 14.0 H RBC 3.28 L Hgb 9.2 L Hct 28.3 L MCV 86.3 MCH 28.0 MCHC 32.5 RDW 16.1 H Plt Count 453 H MPV 9.6 Gran % 73.2 H Lymph % (Auto) 13.7 L [place] % (Auto) 7.7 H Eos % (Auto) 5.1 H Baso % (Auto) 0.3 Gran # 10.25 H Lymph # 1.9 [place] # 1.1 H Eos # 0.7 Baso # 0.04 PT 13.4 H INR 1.24 H APTT 31.0 H Sodium 133 Potassium 4.8 Chloride 102 Carbon Dioxide 25 Anion Gap 11 BUN 6 L Creatinine 0.7 Est GFR ( Amer) > 60 Est GFR (Non-Af Amer) > 60 Random Glucose 98 Calcium 8.1 L Total Bilirubin 0.3 AST 20 ALT 16 Alkaline Phosphatase 84 Total Protein 6.0 Albumin 2.4 L Globulin 3.6 Albumin/Globulin Ratio 0.7 L Blood Type O POSITIVE Blood Type Confirm O POSITIVE Antibody Screen Negative Crossmatch See Detail BBK History Checked No verified bt Review of Systems - Review of Systems Systems not reviewed;Unavailable: Acuity of Condition - EENT Eyes: As Per HPI Ears: UNREMARKABLE Nose/Mouth/Throat: UNREMARKABLE - Breasts Breasts: UNREMARKABLE - Cardiovascular Cardiovascular: UNREMARKABLE - Respiratory Respiratory: UNREMARKABLE - Gastrointestinal Gastrointestinal: Abdominal Pain, Change in Bowel Habits, Heartburn - Genitourinary Genitourinary: UNREMARKABLE - Reproductive: Female Reproductive:Female: UNREMARKABLE - Musculoskeletal Musculoskeletal: UNREMARKABLE - Integumentary Integumentary: UNREMARKABLE - Neurological Neurological: UNREMARKABLE - Psychiatric Psychiatric: UNREMARKABLE - Endocrine Endocrine: UNREMARKABLE Critical Care Progress Note - Ventilator Checklist Daily Sedation Vacation: Yes Daily Assessment of Readiness to Wean: Yes PUD Prophalyxis: Yes DVT Prophylaxis: Yes - Nutrition Nutrition: Nutrition Category Date Time Status Liquid Diet [DIET] Diets 12/07/16 Dinner Ordered NPO Diet [DIET] Diets 12/06/16 Dinner Ordered Assessment/Plan - Assessment and Plan (Free Text) Assessment: 51 y/o Post op from ex-lap and vlad rectal abscess drainage and colectomy Currently awake and alert following commands. SHIPPING ROOM HELPER dilaudid started .2/10min Broad spectrum abx per I.D for vlad rectal abscess. keep NPO, surgery reccs pending. Op-Site checks and ALBINA drainage. Follow urine output . On d5ns @ 100 ml / hr Insulin sliding scale to keep BS 140-180 BP WNL, prn hydralazine or lopressor as needed . Follow up labs , electrolyte to be repleted. may need 1:1 due to possible ilicit drug use in hospital? SCD tonight cc time 65 min
--- NOTE | 2016-12-07 15:03 | CP.PCM.PN ---
<RuthyLewis - Last Filed: 12/07/16 14:59> Subjective - Date & Time of Evaluation Date of Evaluation: 12/07/16 Time of Evaluation: 07:30 - Subjective Subjective: Medicine Progress note. Dr. Haley Pt seen and evaluated at bedside. Patient started running a fever with Tmax of 102.2 overnight. Tylenol was given. BP was also low to 80s/50s. Patient was asymptomatic, ambulating within room and requesting medication for anxiety. Patient to go to OR today for vlad-rectal abscess drainage and diverting colostomy. Patient denies any SOB/CP. No other complaints. Objective - Vital Signs/Intake and Output Vital Signs (last 24 hours): Temp Pulse Resp BP Pulse Ox 98.2 F 98 H 18 98/53 L 99 12/07/16 07:56 12/07/16 07:56 12/07/16 07:56 12/07/16 07:56 12/07/16 07:56 Intake and Output: 12/07/16 12/07/16 06:59 18:59 Intake Total 780 2600 Balance 780 2600 - Medications Medications: Current Medications Acetaminophen (Tylenol 325mg Tab) 650 mg PO Q6H PRN PRN Reason: Pain, moderate (4-7) Last Admin: 12/05/16 01:13 Dose: 650 mg Clonazepam (Klonopin) 1 mg PO TID [facility] PRN Reason: Protocol Last Admin: 12/06/16 17:05 Dose: Not Given Docusate Sodium (Colace) 100 mg PO TID [facility] Last Admin: 12/05/16 13:33 Dose: Not Given Escitalopram Oxalate (Lexapro) 10 mg PO DAILY [facility] Last Admin: 12/06/16 09:35 Dose: 10 mg Gabapentin (Neurontin) 800 mg PO TID [facility] PRN Reason: Protocol Last Admin: 12/06/16 17:05 Dose: 800 mg Heparin Sodium (Porcine) (Heparin) 5,000 units SC Q12 [facility] PRN Reason: Protocol Hydrocortisone (Cortizone 1% Cream) 0 gm TOP BID [facility] Last Admin: 12/06/16 17:05 Dose: Not Given Hydrocortisone/Pramoxine (Proctofoam) 1 gm TOP TID [facility] Last Admin: 12/06/16 17:05 Dose: Not Given Ertapenem 1 gm/ Sodium (Chloride) 50 mls @ 100 mls/hr IVPB Q24H [facility] Stop: 12/11/16 12:46 Last Admin: 12/06/16 13:29 Dose: 100 mls/hr Potassium Chloride 40 meq/ (Sodium Chloride) 1,020 mls @ 150 mls/hr IV .Q6H48M [facility] Hydromorphone HCl (Dilaudid 0.2 Mg/Ml [employer] Sales [employer]) 25 mls @ 0 mls/hr IV PRN PRN; Protocol; Per Protocol PRN Reason: COMMUNICATIONS DEPARTMENT CHAIRPERSON PER MD ORDER Last Admin: 12/07/16 13:23 Dose: 0.2 mls/hr Dextrose/Sodium Chloride (Dextrose 5%/0.9% Ns 1000 Ml) 1,000 mls @ 100 mls/hr IV .Q10H [facility] Mesalamine (Pentasa) 1,000 mg PO QID [facility] Last Admin: 12/06/16 21:22 Dose: 1,000 mg Ondansetron HCl (Zofran Inj) 4 mg IVP Q8 PRN PRN Reason: Nausea/Vomiting Pantoprazole Sodium (Protonix Ec Tab) 40 mg PO DAILY [facility] Last Admin: 12/05/16 10:43 Dose: Not Given Pantoprazole Sodium (Protonix Inj) 40 mg IVP DAILY [facility] Last Admin: 12/06/16 09:36 Dose: 40 mg Quetiapine Fumarate (Seroquel) 200 mg PO BID [facility] PRN Reason: Protocol Last Admin: 12/06/16 17:05 Dose: Not Given Zolpidem Tartrate (Ambien) 5 mg PO HS [facility] PRN Reason: Protocol Last Admin: 12/07/16 01:49 Dose: 5 mg - Labs Labs: 12/07/16 08:14 12/07/16 08:14 PT 13.4 Seconds (9.9-11.8) H 12/07/16 08:14 INR 1.24 (0.93-1.08) H 12/07/16 08:14 APTT 31.0 Seconds (23.7-30.8) H 12/07/16 08:14 - Constitutional Appears: Well, No Acute Distress - Head Exam Head Exam: ATRAUMATIC, NORMAL INSPECTION, NORMOCEPHALIC - Eye Exam Eye Exam: EOMI, Normal appearance, PERRL. absent: Scleral icterus - ENT Exam ENT Exam: Mucous Membranes Moist - Neck Exam Neck Exam: Full ROM - Respiratory Exam Respiratory Exam: Clear to Ausculation Bilateral, NORMAL BREATHING PATTERN. absent: Wheezes - Cardiovascular Exam Cardiovascular Exam: +S1, +S2. absent: JVD - GI/Abdominal Exam GI & Abdominal Exam: Soft. absent: Tenderness - Extremities Exam Extremities Exam: Normal Inspection - Neurological Exam Neurological Exam: Alert, Awake, Oriented x3 - Psychiatric Exam Psychiatric exam: Anxious - Skin Skin Exam: Dry, Intact, Normal Color, Warm Assessment and Plan - Assessment and Plan (Free Text) Assessment: 51yo F with PMHx of Crohn's disease, perirectal abscess, Bipolar disorder, Drug abuse, Opiate dependence and non-compliance with follow up here for evaluation of abdominal pain. 1. Abd Pain CT Abd/Pelvis - evidence of pelvic cyst w/lymphadenopathy. Perirectal abscess. Diffuse constipation Failed IR perirectal abscess drainage 12/04 Cultures growing ESBL on Contact precautions ID following, Dr. Mcneill, appreciate recs Continue Ertapenem, Surgery consulted, Dr. Marti, appreciate recs s/p perirectal abscess I&D 12/05 s/p perirectal abscess i&D, removal of phlegmon, diverting colostomy on . Patient to go to ICU from PACU for close monitoring Pain management 2. Hypokalemia resolved Continue to monitor and repleat as necessary 3. Hx of Bipolar disorder Continue home meds Psych eval requested 4. Hx of drug abuse monitor for withdrawal Chronic opioid use/abuse. ?illicit drug use in the hospital overnight on 12/06. consider 1:1 if necessary Cessation counseling 5. PPx Protonix 40mg IV Daily Incentive Spirometer SCDs Discussed case with Dr. Tera Bliss PGY1 <Cristina Haley - Last Filed: 12/07/16 15:50> Objective - Vital Signs/Intake and Output Vital Signs (last 24 hours): Temp Pulse Resp BP Pulse Ox 98.2 F 98 H 18 98/53 L 99 12/07/16 07:56 12/07/16 07:56 12/07/16 07:56 12/07/16 07:56 12/07/16 07:56 Intake and Output: 12/07/16 12/07/16 06:59 18:59 Intake Total 780 2600 Balance 780 2600 - Medications Medications: Current Medications Acetaminophen (Tylenol 325mg Tab) 650 mg PO Q6H PRN PRN Reason: Pain, moderate (4-7) Last Admin: 12/05/16 01:13 Dose: 650 mg Clonazepam (Klonopin) 1 mg PO TID [facility] PRN Reason: Protocol Last Admin: 12/06/16 17:05 Dose: Not Given Docusate Sodium (Colace) 100 mg PO TID [facility] Last Admin: 12/05/16 13:33 Dose: Not Given Escitalopram Oxalate (Lexapro) 10 mg PO DAILY [facility] Last Admin: 12/06/16 09:35 Dose: 10 mg Gabapentin (Neurontin) 800 mg PO TID [facility] PRN Reason: Protocol Last Admin: 12/06/16 17:05 Dose: 800 mg Heparin Sodium (Porcine) (Heparin) 5,000 units SC Q12 [facility] PRN Reason: Protocol Hydrocortisone (Cortizone 1% Cream) 0 gm TOP BID [facility] Last Admin: 12/06/16 17:05 Dose: Not Given Hydrocortisone/Pramoxine (Proctofoam) 1 gm TOP TID [facility] Last Admin: 12/06/16 17:05 Dose: Not Given Ertapenem 1 gm/ Sodium (Chloride) 50 mls @ 100 mls/hr IVPB Q24H [facility] Stop: 12/11/16 12:46 Last Admin: 12/06/16 13:29 Dose: 100 mls/hr Potassium Chloride 40 meq/ (Sodium Chloride) 1,020 mls @ 150 mls/hr IV .Q6H48M [facility] Hydromorphone HCl (Dilaudid 0.2 Mg/Ml Personal Lines Sales Rep) 25 mls @ 0 mls/hr IV PRN PRN; Protocol; Per Protocol PRN Reason: COMMUNICATIONS DEPARTMENT CHAIRPERSON PER MD ORDER Last Admin: 12/07/16 13:23 Dose: 0.2 mls/hr Dextrose/Sodium Chloride (Dextrose 5%/0.9% Ns 1000 Ml) 1,000 mls @ 100 mls/hr IV .Q10H [facility] Mesalamine (Pentasa) 1,000 mg PO QID [facility] Last Admin: 12/06/16 21:22 Dose: 1,000 mg Ondansetron HCl (Zofran Inj) 4 mg IVP Q8 PRN PRN Reason: Nausea/Vomiting Pantoprazole Sodium (Protonix Ec Tab) 40 mg PO DAILY [facility] Last Admin: 12/05/16 10:43 Dose: Not Given Pantoprazole Sodium (Protonix Inj) 40 mg IVP DAILY [facility] Last Admin: 12/06/16 09:36 Dose: 40 mg Quetiapine Fumarate (Seroquel) 200 mg PO BID [facility] PRN Reason: Protocol Last Admin: 12/06/16 17:05 Dose: Not Given Zolpidem Tartrate (Ambien) 5 mg PO HS [facility] PRN Reason: Protocol Last Admin: 12/07/16 01:49 Dose: 5 mg - Labs Labs: 12/07/16 08:14 12/07/16 08:14 PT 13.4 Seconds (9.9-11.8) H 12/07/16 08:14 INR 1.24 (0.93-1.08) H 12/07/16 08:14 APTT 31.0 Seconds (23.7-30.8) H 12/07/16 08:14 Assessment and Plan - Assessment and Plan (Free Text) Assessment: 1.Patient is a 51-year-old female admitted with abdominal pain/partial bowel obstruction/perirectal abscess. Patient with a history of Crohn's disease and abdominal surgeries in the past. surgery evaluation appreciated. patient is going to OR colostomy. mild hypotension; continue IV fluids. Patient is asymptomatic. 2. ESBL in the wound culture; currently on Ertapenem. 3. hypokalemia; resolved.. 4.crohn's disease; noncompliance with follow-up. GI evaluation appreciated. Continue mesalamine. Needs close outpatient follow-up with GI. 5. Bipolar disorder; continue Klonopin Lexapro, Seroquel. Psychiatric evaluation appreciated. 6. Chronic opiate dependency and multiple drug abuse in the past. 7. Pain management with Dilaudid. 8. GI prophylaxis with Protonix. 9.possible drug use in the hospital last night. Urine drug screen ordered. Follow-up patient closely post surgery in ICU. Attending/Attestation - Attestation I have personally seen and examined this patient.: Yes I have fully participated in the care of the patient.: Yes I have reviewed all pertinent clinical information, including history, physical exam and plan: Yes
[2016-12-07] MEDS: Dextrose 5%/0.9% NS 1,000 ML IV SCH (16:44)
[2016-12-07] MEDS: Hydrocortisone 1% Cream (30 GM) TOP SCH (17:36)
[2016-12-07] MEDS: Hydrocortisone-Pramoxine 1%-1% Foam(10 gm) TOP SCH (17:37)
[2016-12-07] MEDS: Mesalamine ER Cap 500 MG PO SCH ×3 (18:01→22:33)
[2016-12-08] MEDS: Dextrose 5%/0.9% NS 1,000 ML IV SCH ×2 (03:00→11:03)
[2016-12-08 05:53] LABS: ADD MANUAL DIFF? NO
[2016-12-08 05:55] LABS: BASO # 0.02 K/mm3 (0.0-2.0); BASO % 0.2 % (0.0-3.0); EOS # 0.4 (0.0-0.7); EOS % 3.6 % (1.5-5.0); GRAN # 7.22 (1.4-6.5); GRAN % 74.6 % (50.0-68.0); HEMATOCRIT 26.5 % (36.0-48.0); LYMPH # 1.3 (1.2-3.4); MEAN CORPUSCULAR HEMOGLOBIN 27.6 pg (25.0-35.0); MEAN CORPUSCULAR HGB CONC 32.1 g/dl (31.0-37.0); MEAN PLATELET VOLUME 9.8 fl (7.0-11.0); MONO # 0.8 (0.1-0.6); MONO % 8.6 % (1.0-6.0); PLATELET COUNT 421 10^3/uL (120.0-450.0); RED CELL DISTRIBUTION WIDTH 16.1 % (11.5-14.5); WHITE BLOOD COUNT 9.7 10^3/ul (4.5-11.0)
[2016-12-08 06:42] LABS: ALB/GLOB RATIO 0.7 (1.1-1.8); ALKALINE PHOSPHATASE 65 U/L (38-133); ALT/SGPT 11 U/L (7-56); AST/SGOT 17 U/L (15-39); BILIRUBIN,TOTAL 0.3 mg/dL (0.2-1.3); BLOOD UREA NITROGEN 6 mg/dL (7-21); CALCIUM 7.8 mg/dL (8.4-10.5); CARBON DIOXIDE 26 mmol/L (21-33); CHLORIDE 105 mmol/L (98-107); GFR AFRICAN-AMERICAN > 60; GLUCOSE,RANDOM 104 mg/dL (70-110); POTASSIUM 3.9 mmol/L (3.6-5.0); SODIUM 138 mmol/L (132-148); TOTAL PROTEIN 5.1 g/dL (5.8-8.3)
--- NOTE | 2016-12-08 07:58 | CP.CCUPN ---
<Cindy Coleman - Last Filed: 12/08/16 10:44> CCU Subjective - Physician Review Subjective (Free Text): 12/08/16 10:44 Pt s&e w ICU attending. Pt underwent surgery yesterday and tolerated it well. Denies F/C/N/V/D/CP/SOB. c/o abd pain. - amb, + void, - ostomy output . Tolerating CLD. 12/08/16 10:47 CCU Objective - Vital Signs / Intake & Output Vital Signs (Last 4 hours): Vital Signs Temp Pulse Resp BP Pulse Ox 12/08/16 06:00 65 13 90/56 L 98 12/08/16 05:00 64 17 89/57 L 98 12/08/16 04:00 99 F 67 14 87/50 L 99 Intake and Output (Last 8hrs): Intake & Output 12/07/16 12/08/16 12/08/16 22:59 06:59 14:59 Intake Total 760 1800 Output Total 460 1380 Balance 300 420 Intake: IV 300 1200 Right Internal Jugular 1200 Right triple Lumen 300 Oral 360 600 Other 100 Output: Drainage 60 80 left ella 50 60 right ella 10 20 Urine 400 1300 Urine, Voided 400 Urethral (Uribe) 1300 Other: Voiding Method Indwelling Catheter Indwelling Catheter - Physical Exam Head: Positive for: Atraumatic, Normocephalic Pupils: Positive for: PERRL Extroacular Muscles: Positive for: EOMI Conjunctiva: Positive for: Normal Ears: Positive for: Normal Mouth: Positive for: Moist Mucous Membranes Pharnyx: Positive for: Normal Nose (External): Positive for: Atraumatic Nose (Internal): Positive for: Normal Inspection Neck: Positive for: Normal Range of Motion Respiratory/Chest: Positive for: Clear to Auscultation, Good Air Exchange Cardiovascular: Positive for: Regular Rate and Rhythm, Normal S1, S2 Abdomen: Positive for: Tenderness, Ostomy Tubes, Other (no output on ostomy: pink patent). Negative for: Distention, Peritoneal Signs, Rebound Upper Extremity: Positive for: Normal Inspection Lower Extremity: Positive for: Normal Inspection Neurological: Positive for: GCS=15, CN II-XII Intact, Speech Normal Psychiatric: Positive for: Alert, Oriented x 3, Normal Insight - Medications Active Medications: Active Medications Generic Name Dose Route Start Last Admin Trade Name Freq PRN Reason Stop Dose Admin Acetaminophen 650 mg 12/01/16 21:00 12/05/16 01:13 Tylenol 325mg Tab PO 650 mg Q6H PRN Administration Pain, moderate (4-7) Clonazepam 1 mg 12/07/16 18:00 12/07/16 18:05 Klonopin PO 12/15/16 18:01 1 mg TID RAOUL Administration Docusate Sodium 100 mg 12/05/16 14:00 12/07/16 17:36 Colace PO Not Given TID [facility] Escitalopram Oxalate 10 mg 12/02/16 10:00 12/07/16 17:46 Lexapro PO 10 mg DAILY RAOUL Administration Gabapentin 800 mg 12/02/16 10:00 12/07/16 17:45 Neurontin PO 800 mg TID RAOUL Administration Protocol Heparin Sodium (Porcine) 5,000 units 12/08/16 10:00 Heparin SC Q12 [facility] Protocol Hydrocortisone 0 gm 12/01/16 21:00 12/07/16 17:36 Cortizone 1% Cream TOP Not Given BID [facility] Hydrocortisone/Pramoxine 1 gm 12/04/16 18:00 12/07/16 17:37 Proctofoam TOP Not Given TID [facility] Ertapenem 1 gm/ Sodium 50 mls @ 100 mls/hr 12/04/16 12:45 12/06/16 13:29 Chloride IVPB 12/11/16 12:46 100 mls/hr Q24H RAOUL Administration Potassium Chloride 40 meq/ 1,020 mls @ 150 mls/hr 12/07/16 07:22 Sodium Chloride IV .Q6H48M [facility] Hydromorphone HCl 25 mls @ 0 mls/hr 12/07/16 12:03 12/07/16 19:07 Dilaudid 0.2 Mg/Ml [employer] IV 0.2 mls/hr PRN PRN Administration [employer] PER MD ORDER Protocol Per Protocol Dextrose/Sodium Chloride 1,000 mls @ 100 mls/hr 12/07/16 15:00 12/08/16 03:00 Dextrose 5%/0.9% Ns 1000 Ml IV 100 mls/hr .Q10H RAOUL Administration Mesalamine 1,000 mg 12/01/16 22:00 12/07/16 22:33 Pentasa PO 1,000 mg QID RAOUL Administration Ondansetron HCl 4 mg 12/01/16 21:00 Zofran Inj IVP Q8 PRN Nausea/Vomiting Pantoprazole Sodium 40 mg 12/02/16 10:00 12/05/16 10:43 Protonix Ec Tab PO Not Given DAILY [facility] Pantoprazole Sodium 40 mg 12/06/16 10:00 12/07/16 17:45 Protonix Inj IVP 40 mg DAILY RAOUL Administration Quetiapine Fumarate 200 mg 12/02/16 10:00 12/07/16 22:34 Seroquel PO 200 mg BID RAOUL Administration Protocol Zolpidem Tartrate 5 mg 12/01/16 22:00 12/07/16 22:31 Ambien PO 5 mg HS RAOUL Administration Protocol - Patient Studies Lab Studies: Microbiology Studies 12/05/16 15:26 Gram Stain - Final Abscess - Anal Anaerobic Culture - Final NO ANAEROBES ISOLATED. Wound Culture - Preliminary No growth. 12/05/16 11:00 Blood Culture - Preliminary Blood-Venous NO GROWTH AFTER 48 HOURS 12/05/16 11:30 Blood Culture - Preliminary Blood-Venous NO GROWTH AFTER 48 HOURS 12/06/16 03:00 Urine Culture - Final Urine No Growth (<1,000 CFU/ML) Lab Studies 12/08/16 12/07/16 12/07/16 Range/Units 05:45 17:00 08:14 WBC 9.7 D 14.0 H (4.5-11.0) 10^3/ul RBC 3.08 L 3.28 L (3.5-6.1) 10^6/uL Hgb 8.5 L 9.2 L (12.0-16.0) gm/dL Hct 26.5 L 28.3 L (36.0-48.0) % MCV 86.0 86.3 (80.0-105.0) fL MCH 27.6 28.0 (25.0-35.0) pg MCHC 32.1 32.5 (31.0-37.0) g/dl RDW 16.1 H 16.1 H (11.5-14.5) % Plt Count 421 453 H (120.0-450.0) 10^3/uL MPV 9.8 9.6 (7.0-11.0) fl Gran % 74.6 H 73.2 H (50.0-68.0) % Lymph % (Auto) 13.0 L 13.7 L (22.0-35.0) % Lipscomb % (Auto) 8.6 H 7.7 H (1.0-6.0) % Eos % (Auto) 3.6 5.1 H (1.5-5.0) % Baso % (Auto) 0.2 0.3 (0.0-3.0) % Gran # 7.22 H 10.25 H (1.4-6.5) Lymph # 1.3 1.9 (1.2-3.4) Lipscomb # 0.8 H 1.1 H (0.1-0.6) Eos # 0.4 0.7 (0.0-0.7) Baso # 0.02 0.04 (0.0-2.0) K/mm3 PT 13.4 H (9.9-11.8) Seconds INR 1.24 H (0.93-1.08) APTT 31.0 H (23.7-30.8) Seconds Sodium 138 133 (132-148) mmol/L Potassium 3.9 4.8 (3.6-5.0) mmol/L Chloride 105 102 (98-107) mmol/L Carbon Dioxide 26 25 (21-33) mmol/L Anion Gap 11 11 (10-20) BUN 6 L 6 L (7-21) mg/dL Creatinine 0.6 0.7 (0.5-1.4) mg/dL Est GFR ( Amer) > 60 > 60 Est GFR (Non-Af Amer) > 60 > 60 Random Glucose 104 98 (70-110) mg/dL Calcium 7.8 L 8.1 L (8.4-10.5) mg/dL Total Bilirubin 0.3 0.3 (0.2-1.3) mg/dL AST 17 20 (15-39) U/L ALT 11 16 (7-56) U/L Alkaline Phosphatase 65 84 (38-133) U/L Total Protein 5.1 L 6.0 (5.8-8.3) g/dL Albumin 2.1 L 2.4 L (3.0-4.8) g/dL Globulin 3.0 3.6 gm/dL Albumin/Globulin Ratio 0.7 L 0.7 L (1.1-1.8) Urine Opiates Screen Positive H (NEGATIVE) Urine Methadone Screen Negative (NEGATIVE) Ur Barbiturates Screen Negative (NEGATIVE) Ur Phencyclidine Scrn Negative (NEGATIVE) Ur Amphetamines Screen Negative (NEGATIVE) U Benzodiazepines Scrn Positive H (NEGATIVE) U Oth Cocaine Metabols Negative (NEGATIVE) U Cannabinoids Screen Negative (NEGATIVE) Laboratory Results - last 24 hr 12/07/16 12/07/16 12/08/16 08:14 17:00 05:45 WBC 14.0 H 9.7 D RBC 3.28 L 3.08 L Hgb 9.2 L 8.5 L Hct 28.3 L 26.5 L MCV 86.3 86.0 MCH 28.0 27.6 MCHC 32.5 32.1 RDW 16.1 H 16.1 H Plt Count 453 H 421 MPV 9.6 9.8 Gran % 73.2 H 74.6 H Lymph % (Auto) 13.7 L 13.0 L Lipscomb % (Auto) 7.7 H 8.6 H Eos % (Auto) 5.1 H 3.6 Baso % (Auto) 0.3 0.2 Gran # 10.25 H 7.22 H Lymph # 1.9 1.3 Lipscomb # 1.1 H 0.8 H Eos # 0.7 0.4 Baso # 0.04 0.02 PT 13.4 H INR 1.24 H APTT 31.0 H Sodium 133 138 Potassium 4.8 3.9 Chloride 102 105 Carbon Dioxide 25 26 Anion Gap 11 11 BUN 6 L 6 L Creatinine 0.7 0.6 Est GFR ( Amer) > 60 > 60 Est GFR (Non-Af Amer) > 60 > 60 Random Glucose 98 104 Calcium 8.1 L 7.8 L Total Bilirubin 0.3 0.3 AST 20 17 ALT 16 11 Alkaline Phosphatase 84 65 Total Protein 6.0 5.1 L Albumin 2.4 L 2.1 L Globulin 3.6 3.0 Albumin/Globulin Ratio 0.7 L 0.7 L Urine Opiates Screen Positive H Urine Methadone Screen Negative Ur Barbiturates Screen Negative Ur Phencyclidine Scrn Negative Ur Amphetamines Screen Negative U Benzodiazepines Scrn Positive H U Oth Cocaine Metabols Negative U Cannabinoids Screen Negative Review of Systems - Constitutional Constitutional: Weakness. absent: Fever, Chills, Sweats, Malaise - EENT Eyes: absent: Blurred Vision, Change in Vision Ears: absent: Decreased Hearing Nose/Mouth/Throat: absent: Epistaxis, Nasal Congestion - Cardiovascular Cardiovascular: absent: Chest Pain, Chest Pain at Rest - Respiratory Respiratory: absent: Cough, Dyspnea, Hemoptysis - Gastrointestinal Gastrointestinal: Abdominal Pain. absent: Belching, Bloating, Loose Stools - Genitourinary Genitourinary: absent: Difficulty Urinating Critical Care Progress Note - Ventilator Checklist Head of Bed 30 Degrees: Yes - Nutrition Nutrition: Nutrition Category Date Time Status Liquid Diet [DIET] Diets 12/07/16 Dinner Ordered Assessment/Plan - Assessment and Plan (Free Text) Assessment: 51 y/o PMH of Crohn, Post op day 1 s/p ex-lap and vlad rectal abscess drainage and colostomy Neuro: Currently awake and alert following commands. -[employer] dilaudid started .2/10min -Neurontin CV: Keep MAP +65 -D5 1/2 NS @ 150 -MOnitor I/O Pulm: OOB, IS, ambulation -NC 2L O2 GI: CLD -diet per surgery -Monitor ostomy output -ELLA 150cc/24hrs -Zofran/Colace/mesalazine/colace/PTX/cortisone cream Renal -Uribe 1.7 L /24hr -DC uribe -electrolyte to be repleted. ID: Afebrile, No leukocytosis - Ertapenem, Broad spectrum abx per I.D for vlad rectal abscess. Endo -Insulin sliding scale to keep BS 140-180 Psych: h/o psychiatric d/o -may need 1:1 due to possible ilicit drug use in hospital -Lexapro -Seroquel -Ambien -Klonopin DVT ppx: SCD, SQH, amulation, OOB, PT Dispo: transfer to Med/surg DW ICU attending <Crow Kincaid MD - Last Filed: 12/08/16 11:12> CCU Objective - Vital Signs / Intake & Output Vital Signs (Last 4 hours): Vital Signs Temp Pulse Resp BP Pulse Ox 12/08/16 11:00 68 13 87/46 L 97 12/08/16 10:45 69 16 85/52 L 99 12/08/16 10:37 67 22 99 12/08/16 10:30 69 12 84/52 L 100 12/08/16 10:15 66 14 87/50 L 100 12/08/16 10:00 69 13 88/55 L 100 12/08/16 09:45 69 17 83/51 L 99 12/08/16 09:31 71 11 L 86/49 L 98 12/08/16 09:30 72 17 76/47 L 98 12/08/16 09:16 75 24 82/41 L 99 12/08/16 09:11 76 16 78/45 L 99 12/08/16 09:00 71 14 76/44 L 100 12/08/16 08:03 71 19 94 L 12/08/16 08:01 76 17 99/57 L 96 12/08/16 08:00 98.8 F 68 14 97 Intake and Output (Last 8hrs): Intake & Output 12/07/16 12/08/16 12/08/16 22:59 06:59 14:59 Intake Total 760 1800 Output Total 460 1380 Balance 300 420 Intake: IV 300 1200 Right Internal Jugular 1200 Right triple Lumen 300 Oral 360 600 Other 100 Output: Drainage 60 80 left ella 50 60 right ella 10 20 Urine 400 1300 Urine, Voided 400 Urethral (Uribe) 1300 Other: Voiding Method Indwelling Catheter Indwelling Catheter Indwelling Catheter - Medications Active Medications: Active Medications Generic Name Dose Route Start Last Admin Trade Name Freq PRN Reason Stop Dose Admin Acetaminophen 650 mg 12/01/16 21:00 12/05/16 01:13 Tylenol 325mg Tab PO 650 mg Q6H PRN Administration Pain, moderate (4-7) Clonazepam 1 mg 12/07/16 18:00 12/08/16 09:24 Klonopin PO 12/15/16 18:01 Not Given TID RAOUL Docusate Sodium 100 mg 12/05/16 14:00 12/08/16 09:22 Colace PO 100 mg TID RAOUL Administration Escitalopram Oxalate 10 mg 12/02/16 10:00 12/08/16 09:23 Lexapro PO 10 mg DAILY RAOUL Administration Gabapentin 800 mg 12/02/16 10:00 12/08/16 09:24 Neurontin PO Not Given TID RAOUL Protocol Heparin Sodium (Porcine) 5,000 units 12/08/16 10:00 12/08/16 09:23 Heparin SC 5,000 units Q12 RAOUL Administration Protocol Hydrocortisone 0 gm 12/01/16 21:00 12/08/16 09:23 Cortizone 1% Cream TOP Not Given BID [facility] Hydrocortisone/Pramoxine 1 gm 12/04/16 18:00 12/08/16 09:24 Proctofoam TOP Not Given TID [facility] Ertapenem 1 gm/ Sodium 50 mls @ 100 mls/hr 12/04/16 12:45 12/06/16 13:29 Chloride IVPB 12/11/16 12:46 100 mls/hr Q24H RAOUL Administration Hydromorphone HCl 25 mls @ 0 mls/hr 12/07/16 12:03 12/07/16 19:07 Dilaudid 0.2 Mg/Ml [employer] IV 0.2 mls/hr PRN PRN Administration [employer] PER MD ORDER Protocol Per Protocol Dextrose/Sodium Chloride 1,000 mls @ 150 mls/hr 12/08/16 10:42 12/08/16 11:03 Dextrose 5%/0.9% Ns 1000 Ml IV 150 mls/hr .Q6H40M RAOU[facility] Administration Ondansetron HCl 4 mg 12/01/16 21:00 Zofran Inj IVP Q8 PRN Nausea/Vomiting Pantoprazole Sodium 40 mg 12/06/16 10:00 12/08/16 09:23 Protonix Inj IVP 40 mg DAILY RAOUL Administration Quetiapine Fumarate 200 mg 12/02/16 10:00 12/08/16 09:25 Seroquel PO Not Given BID [facility] Protocol Zolpidem Tartrate 5 mg 12/01/16 22:00 12/07/16 22:31 Ambien PO 5 mg HS RAOUL Administration Protocol - Patient Studies Lab Studies: Microbiology Studies 12/05/16 15:26 Gram Stain - Final Abscess - Anal Anaerobic Culture - Final NO ANAEROBES ISOLATED. Wound Culture - Final No growth. 12/05/16 11:00 Blood Culture - Preliminary Blood-Venous NO GROWTH AFTER 48 HOURS 12/05/16 11:30 Blood Culture - Preliminary Blood-Venous NO GROWTH AFTER 48 HOURS 12/06/16 03:00 Urine Culture - Final Urine No Growth (<1,000 CFU/ML) Lab Studies 12/08/16 12/07/16 Range/Units 05:45 17:00 WBC 9.7 D (4.5-11.0) 10^3/ul RBC 3.08 L (3.5-6.1) 10^6/uL Hgb 8.5 L (12.0-16.0) gm/dL Hct 26.5 L (36.0-48.0) % MCV 86.0 (80.0-105.0) fL MCH 27.6 (25.0-35.0) pg MCHC 32.1 (31.0-37.0) g/dl RDW 16.1 H (11.5-14.5) % Plt Count 421 (120.0-450.0) 10^3/uL MPV 9.8 (7.0-11.0) fl Gran % 74.6 H (50.0-68.0) % Lymph % (Auto) 13.0 L (22.0-35.0) % Lipscomb % (Auto) 8.6 H (1.0-6.0) % Eos % (Auto) 3.6 (1.5-5.0) % Baso % (Auto) 0.2 (0.0-3.0) % Gran # 7.22 H (1.4-6.5) Lymph # 1.3 (1.2-3.4) Lipscomb # 0.8 H (0.1-0.6) Eos # 0.4 (0.0-0.7) Baso # 0.02 (0.0-2.0) K/mm3 Sodium 138 (132-148) mmol/L Potassium 3.9 (3.6-5.0) mmol/L Chloride 105 (98-107) mmol/L Carbon Dioxide 26 (21-33) mmol/L Anion Gap 11 (10-20) BUN 6 L (7-21) mg/dL Creatinine 0.6 (0.5-1.4) mg/dL Est GFR ( Amer) > 60 Est GFR (Non-Af Amer) > 60 Random Glucose 104 (70-110) mg/dL Calcium 7.8 L (8.4-10.5) mg/dL Total Bilirubin 0.3 (0.2-1.3) mg/dL AST 17 (15-39) U/L ALT 11 (7-56) U/L Alkaline Phosphatase 65 (38-133) U/L Total Protein 5.1 L (5.8-8.3) g/dL Albumin 2.1 L (3.0-4.8) g/dL Globulin 3.0 gm/dL Albumin/Globulin Ratio 0.7 L (1.1-1.8) Urine Opiates Screen Positive H (NEGATIVE) Urine Methadone Screen Negative (NEGATIVE) Ur Barbiturates Screen Negative (NEGATIVE) Ur Phencyclidine Scrn Negative (NEGATIVE) Ur Amphetamines Screen Negative (NEGATIVE) U Benzodiazepines Scrn Positive H (NEGATIVE) U Oth Cocaine Metabols Negative (NEGATIVE) U Cannabinoids Screen Negative (NEGATIVE) Laboratory Results - last 24 hr 12/07/16 12/08/16 17:00 05:45 WBC 9.7 D RBC 3.08 L Hgb 8.5 L Hct 26.5 L MCV 86.0 MCH 27.6 MCHC 32.1 RDW 16.1 H Plt Count 421 MPV 9.8 Gran % 74.6 H Lymph % (Auto) 13.0 L Lipscomb % (Auto) 8.6 H Eos % (Auto) 3.6 Baso % (Auto) 0.2 Gran # 7.22 H Lymph # 1.3 Lipscomb # 0.8 H Eos # 0.4 Baso # 0.02 Sodium 138 Potassium 3.9 Chloride 105 Carbon Dioxide 26 Anion Gap 11 BUN 6 L Creatinine 0.6 Est GFR ( Amer) > 60 Est GFR (Non-Af Amer) > 60 Random Glucose 104 Calcium 7.8 L Total Bilirubin 0.3 AST 17 ALT 11 Alkaline Phosphatase 65 Total Protein 5.1 L Albumin 2.1 L Globulin 3.0 Albumin/Globulin Ratio 0.7 L Urine Opiates Screen Positive H Urine Methadone Screen Negative Ur Barbiturates Screen Negative Ur Phencyclidine Scrn Negative Ur Amphetamines Screen Negative U Benzodiazepines Scrn Positive H U Oth Cocaine Metabols Negative U Cannabinoids Screen Negative Critical Care Progress Note - Nutrition Nutrition: Nutrition Category Date Time Status Liquid Diet [DIET] Diets 12/07/16 Dinner Ordered Attending/Attestation - Attestation I have personally seen and examined this patient.: Yes I have fully participated in the care of the patient.: Yes I have reviewed all pertinent clinical information: Yes Notes (Text): 12/08/16 11:09 Overnight monitoring in the ICU post op from vlad-rectal abcess and colectomy placement for Chrons Colitis Overnight pain controled on Dialuadid demand [employer] bolus. Diet was resumed last night without any current complications . ELLA drainage minimal and being monitored by surgical team. All p.o meds including mood stabilzers etc resumed. Psych evel possibly needed with a 1:1. needs Pt/OT currently. SBP 90-100 without any new symptoms. Pt states that her BP has been low in the past likely due to narcotics and lack of volume. heparin sq tid ppi cc time 55 min
--- NOTE | 2016-12-08 09:21 | CP.PCM.PN ---
Subjective - Date & Time of Evaluation Date of Evaluation: 12/08/16 Time of Evaluation: 08:40 - Subjective Subjective: No fevers overnight, starting to eat gelatin and liquids, but still with abdominal soreness. Objective - Vital Signs/Intake and Output Vital Signs (last 24 hours): Temp Pulse Resp BP Pulse Ox 99 F 76 17 99/57 L 96 12/08/16 04:00 12/08/16 08:01 12/08/16 08:01 12/08/16 08:01 12/08/16 08:01 Intake and Output: 12/08/16 12/08/16 06:59 18:59 Intake Total 1800 Output Total 1380 Balance 420 - Medications Medications: Current Medications Acetaminophen (Tylenol 325mg Tab) 650 mg PO Q6H PRN PRN Reason: Pain, moderate (4-7) Last Admin: 12/05/16 01:13 Dose: 650 mg Clonazepam (Klonopin) 1 mg PO TID [facility] Stop: 12/15/16 18:01 Last Admin: 12/07/16 18:05 Dose: 1 mg Docusate Sodium (Colace) 100 mg PO TID [facility] Last Admin: 12/07/16 17:36 Dose: Not Given Escitalopram Oxalate (Lexapro) 10 mg PO DAILY [facility] Last Admin: 12/07/16 17:46 Dose: 10 mg Gabapentin (Neurontin) 800 mg PO TID [facility] PRN Reason: Protocol Last Admin: 12/07/16 17:45 Dose: 800 mg Heparin Sodium (Porcine) (Heparin) 5,000 units SC Q12 [facility] PRN Reason: Protocol Hydrocortisone (Cortizone 1% Cream) 0 gm TOP BID [facility] Last Admin: 12/07/16 17:36 Dose: Not Given Hydrocortisone/Pramoxine (Proctofoam) 1 gm TOP TID [facility] Last Admin: 12/07/16 17:37 Dose: Not Given Ertapenem 1 gm/ Sodium (Chloride) 50 mls @ 100 mls/hr IVPB Q24H [facility] Stop: 12/11/16 12:46 Last Admin: 12/06/16 13:29 Dose: 100 mls/hr Potassium Chloride 40 meq/ (Sodium Chloride) 1,020 mls @ 150 mls/hr IV .Q6H48M [facility] Hydromorphone HCl (Dilaudid 0.2 Mg/Ml [employer]) 25 mls @ 0 mls/hr IV PRN PRN; Protocol; Per Protocol PRN Reason: FRONT [employer]KER LOCKSTITCH PER MD ORDER Last Admin: 12/07/16 19:07 Dose: 0.2 mls/hr Dextrose/Sodium Chloride (Dextrose 5%/0.9% Ns 1000 Ml) 1,000 mls @ 100 mls/hr IV .Q10H [facility] Last Admin: 12/08/16 03:00 Dose: 100 mls/hr Mesalamine (Pentasa) 1,000 mg PO QID [facility] Last Admin: 12/07/16 22:33 Dose: 1,000 mg Ondansetron HCl (Zofran Inj) 4 mg IVP Q8 PRN PRN Reason: Nausea/Vomiting Pantoprazole Sodium (Protonix Ec Tab) 40 mg PO DAILY [facility] Last Admin: 12/05/16 10:43 Dose: Not Given Pantoprazole Sodium (Protonix Inj) 40 mg IVP DAILY [facility] Last Admin: 12/07/16 17:45 Dose: 40 mg Quetiapine Fumarate (Seroquel) 200 mg PO BID [facility] PRN Reason: Protocol Last Admin: 12/07/16 22:34 Dose: 200 mg Zolpidem Tartrate (Ambien) 5 mg PO HS [facility] PRN Reason: Protocol Last Admin: 12/07/16 22:31 Dose: 5 mg - Labs Labs: 12/08/16 05:45 12/08/16 05:45 PT 13.4 Seconds (9.9-11.8) H 12/07/16 08:14 INR 1.24 (0.93-1.08) H 12/07/16 08:14 APTT 31.0 Seconds (23.7-30.8) H 12/07/16 08:14 - Constitutional Appears: Non-toxic, No Acute Distress - Head Exam Head Exam: NORMAL INSPECTION - Neck Exam Neck Exam: absent: Lymphadenopathy, Meningismus - Respiratory Exam Respiratory Exam: Decreased Breath Sounds - Cardiovascular Exam Cardiovascular Exam: +S1, +S2 - GI/Abdominal Exam GI & Abdominal Exam: Distended, Soft, Tenderness (diffuse). absent: Firm, Guarding, Rigid, Rebound Additional comments: left sided colostomy and abdominal drain with serosanguinous fluid Assessment and Plan - Assessment and Plan (Free Text) Plan: Assessment Sepsis secondary to Pelvic abscess, probably related to the patient's Crohn's disease, S/P exploratory laparotomy, diverting colostomy and surgical drainage of the abscess POD POD #1; S/P CT-guided drainage POD #6, growing ESBL- producing multidrug-resistant E. coli asthma history of pneumonia eczema history of psoriasis anxiety history of depression bipolar disorder history of alcohol abuse history of right hemicolectomy history of perirectal abscess Plan continue Ertapenem and will continue to monitor clinically; will also monitor fever curve (last fever was 7AM yesterday) and amount of abdominal drainage
[2016-12-08] MEDS: Hydrocortisone 1% Cream (30 GM) TOP SCH ×3 (09:23→17:40)
[2016-12-08] MEDS: Hydrocortisone-Pramoxine 1%-1% Foam(10 gm) TOP SCH ×3 (09:24→17:52)
--- NOTE | 2016-12-08 11:11 | OP ---
PROCEDURE DATE: 12/07/2016 PREOPERATIVE DIAGNOSES: High perirectal abscess and sepsis. POSTOPERATIVE DIAGNOSES: High perirectal abscess and sepsis and dense intraabdominal adhesions. PROCEDURES PERFORMED: 1. Exploratory laparotomy. 2. Partial omentectomy. 3. Diverting colostomy. 4. Perirectal abscess drainage. SURGEON: Dr. Marti BATTERY ASSEMBLER PLASTIC: Dr. Holguin ANESTHESIOLOGIST: Dr. Galicia ANESTHESIA: General endotracheal. ESTIMATED BLOOD LOSS: 100 mL. SPECIMEN: Partial omentum and cultures of the perirectal abscess. The patient is a 51-year-old female with a history of known recurrent perirectal abscess, who current ly developed fevers and white count after drainage of the abscess from the external approach through a presacral incision 2 days earlier. It appeared that patient had persistent abscess higher up in th e rectum and it could not be accessed from below. The decision was made to proceed with laparotomy. The patient was brought to the operating room and placed on the operating table in supine position. The patient was connected to EKG, blood pressure and pulse oximeter monitors. The patient then under went general endotracheal anesthesia and was prepped and draped in usual sterile fashion. Given the patient's previous surgery for Crohn's disease and partial terminal ileum resection with cecectomy, p atient had adhesions. The plan was therefore to proceed with a diverting colostomy and drainage of t hat abscess in the presacral area due to the extreme inflammation and swelling of the tissues as well as almost complete obstruction of the rectal canal due to the inflammation. First, timeout procedure took place and everybody in the room agreed as to the patient's identity, di agnosis and procedure to be performed. Using a #15 blade, an incision was made in the midline extending from just above the umbilicus down t o the symphysis pubis and careful dissection was done through subcutaneous fat and fascia. The old s utures from previous surgery about 9 years ago were taken out and carefully the fascia was incised. Access to the abdominal cavity was obtained and it was noted that there were extensive omental adhesi ons to the anterior abdominal wall. Those were carefully taken down and there were also some adhesio ns of the omentum to the bowel. That was also taken down in order to remove the omentum from the fie ld of view. Once this was done, I carefully evaluated the small bowel and large bowel. The colon ap peared to be fairly normal throughout its course, except for being very distended at the cecal area a s well as throughout the remaining colon. The small bowel appeared to have some Crohn's narrowings. However, there was no evidence of obstruction. At this point, I proceeded with mobilization of the retrorectal space and entered on the left side where the abscess originally was noted. Careful disse ction down along the envelope of the perirectal fat and vessels allowed me to approach the abscess fr om the posterior aspect. However, due to the dense adhesions, I was unable . Once this was not ed, I then proceeded with dissection between the colonic wall and the posterior vaginal wall, where e ntry to the abscess cavity was obtained and the cavity itself was then carefully inspected with a fin shira. It had multiple loculations, which were broken down as well as some chronic inflammatory and in fected tissue and puss. This was all cultured and the cultures were sent out and the area was copiou sly washed out with antibiotic containing saline. Once this was all done, I then proceeded with plac ing drains in that area as well as the retrorectal space. Next, my attention was turned to the sigmo id colon, which was fairly mobile. It was transected in its mid portion, keeping the distal portion close to the transection site in order to be able to reconnect it easily through the colostomy incisi on once patient is healed. Once this was done, I then cleaned the proximal portion of the sigmoid co valery for colostomy creation. The colostomy opening was created by excising the round portion of the s kin in the left lower quadrant just below the umbilical level and the incision was carried through th e subcutaneous fat down through the fascia. A 2-finger incision was created and the colon was pulled out through that incision. It was then sutured to the fascia from below as well as from above in or jam to keep it in place and was prepared for maturation. At this point, the distal portion of the si gmoid colon was sutured with a single Prolene stitch to the fascia right below the entry of the colos yue. Once this was done, I then copiously irrigated the entire abdominal cavity and all the irrigan t fluid was suctioned out. Careful inspection of the omentum revealed the presence of some ischemic portion of the omentum, which was resected and sent out as a specimen. Now, the abdominal wound was closed using #1 PDS in a running fashion. The colostomy was then matured and the colostomy appliance was attached to it. The patient tolerated the procedure well without complications. The patient wa s awakened and transferred to recovery room for further observation. Dheeraj Marti MD cc: [phone] TT: 12/08/2016 11:11:04 en
--- NOTE | 2016-12-08 13:00 | CP.PCM.PN ---
<Michelle Casarez - Last Filed: 12/08/16 12:55> Subjective - Date & Time of Evaluation Date of Evaluation: 12/08/16 Time of Evaluation: 07:00 - Subjective Subjective: General Surgery Dr. Stevens Pt S&E @bedside. NAEO. c/o pain. denies N/V, F/C. afebrile. tolerating CLD. Terrell drain 60cc & 20cc serosanguinous [id number] x12hrs Objective - Vital Signs/Intake and Output Vital Signs (last 24 hours): Temp Pulse Resp BP Pulse Ox 98.2 F 64 28 H 87/53 L 97 12/08/16 12:00 12/08/16 12:15 12/08/16 12:00 12/08/16 12:15 12/08/16 12:15 Intake and Output: 12/08/16 12/08/16 06:59 18:59 Intake Total 1800 Output Total 1380 Balance 420 - Medications Medications: Current Medications Acetaminophen (Tylenol 325mg Tab) 650 mg PO Q6H PRN PRN Reason: Pain, moderate (4-7) Last Admin: 12/05/16 01:13 Dose: 650 mg Clonazepam (Klonopin) 1 mg PO TID [facility] Stop: 12/15/16 18:01 Last Admin: 12/08/16 09:24 Dose: Not Given Docusate Sodium (Colace) 100 mg PO TID [facility] Last Admin: 12/08/16 09:22 Dose: 100 mg Escitalopram Oxalate (Lexapro) 10 mg PO DAILY [facility] Last Admin: 12/08/16 09:23 Dose: 10 mg Gabapentin (Neurontin) 800 mg PO TID [facility] PRN Reason: Protocol Last Admin: 12/08/16 09:24 Dose: Not Given Heparin Sodium (Porcine) (Heparin) 5,000 units SC Q12 [facility] PRN Reason: Protocol Last Admin: 12/08/16 09:23 Dose: 5,000 units Hydrocortisone (Cortizone 1% Cream) 0 gm TOP BID [facility] Last Admin: 12/08/16 11:15 Dose: 1 appl Hydrocortisone/Pramoxine (Proctofoam) 1 gm TOP TID [facility] Last Admin: 12/08/16 09:24 Dose: Not Given Ertapenem 1 gm/ Sodium (Chloride) 50 mls @ 100 mls/hr IVPB Q24H [facility] Stop: 12/11/16 12:46 Last Admin: 12/06/16 13:29 Dose: 100 mls/hr Hydromorphone HCl (Dilaudid 0.2 Mg/Ml Datacap Developer) 25 mls @ 0 mls/hr IV PRN PRN; Protocol; Per Protocol PRN Reason: SEWING LINE BALER PER MD ORDER Last Admin: 12/07/16 19:07 Dose: 0.2 mls/hr Dextrose/Sodium Chloride (Dextrose 5%/0.9% Ns 1000 Ml) 1,000 mls @ 150 mls/hr IV .Q6H40M [facility] Last Admin: 12/08/16 11:03 Dose: 150 mls/hr Ondansetron HCl (Zofran Inj) 4 mg IVP Q8 PRN PRN Reason: Nausea/Vomiting Pantoprazole Sodium (Protonix Inj) 40 mg IVP DAILY [facility] Last Admin: 12/08/16 09:23 Dose: 40 mg Quetiapine Fumarate (Seroquel) 200 mg PO BID [facility] PRN Reason: Protocol Last Admin: 12/08/16 09:25 Dose: Not Given Zolpidem Tartrate (Ambien) 5 mg PO HS [facility] PRN Reason: Protocol Last Admin: 12/07/16 22:31 Dose: 5 mg - Labs Labs: 12/08/16 05:45 12/08/16 05:45 Laboratory Tests 12/08/16 05:45 Calcium 7.8 L Magnesium 1.9 Total Bilirubin 0.3 AST 17 ALT 11 Alkaline Phosphatase 65 Total Protein 5.1 L Albumin 2.1 L - Constitutional Appears: Non-toxic, No Acute Distress - Head Exam Head Exam: NORMAL INSPECTION - Eye Exam Eye Exam: Normal appearance - ENT Exam ENT Exam: Mucous Membranes Moist - Respiratory Exam Respiratory Exam: NORMAL BREATHING PATTERN. absent: Accessory Muscle Use, Respiratory Distress - Cardiovascular Exam Cardiovascular Exam: REGULAR RHYTHM. absent: Bradycardia, Tachycardia - GI/Abdominal Exam GI & Abdominal Exam: Distended (minimal), Soft, Tenderness Additional comments: terrell drain x2 in place dressing c/d/i stoma w/ edema. stool present at stoma site. ostomy bag in place - Rectal Exam Additional comments: pt refused exam and dressing change - Neurological Exam Neurological Exam: Alert, Awake, Oriented x3 - Psychiatric Exam Psychiatric exam: Anxious, Normal Affect - Skin Skin Exam: Dry, Intact, Rash, Warm Assessment and Plan - Assessment and Plan (Free Text) Assessment: 51 y/o F POD#1 s/p diverting end colostomy w/ drainage of perirectal phlegmon and POD#3 s/p I&D of perirectal abscess - advance diet - cont pain management - daily packing/dressing changes - encourage IS use/OOB to chair/Amb - monitor vitals - trend labs Pt discussed with Dr. Kaia Casarez DO PGY1 <Dheeraj Marti - Last Filed: 12/10/16 20:53> Subjective - Date & Time of Evaluation Date of Evaluation: 12/08/16 Time of Evaluation: 14:10 Objective - Vital Signs/Intake and Output Vital Signs (last 24 hours): Temp Pulse Resp BP Pulse Ox 98 F 62 20 108/59 L 98 12/10/16 16:00 12/10/16 16:00 12/10/16 16:00 12/10/16 16:00 12/10/16 16:00 Intake and Output: 12/10/16 12/11/16 18:59 06:59 Intake Total 380 Balance 380 - Medications Medications: Current Medications Acetaminophen (Tylenol 325mg Tab) 650 mg PO Q6H PRN PRN Reason: Pain, moderate (4-7) Last Admin: 12/08/16 20:36 Dose: 650 mg Al Hydrox/Mg Hydrox/Simethicone (Maalox Plus 30 Ml) 30 ml PO DAILY PRN PRN Reason: Indigestion / Heartburn Clonazepam (Klonopin) 1 mg PO TID [facility] Stop: 12/15/16 18:01 Last Admin: 12/10/16 20:05 Dose: 1 mg Docusate Sodium (Colace) 100 mg PO TID [facility] Last Admin: 12/10/16 20:05 Dose: 100 mg Escitalopram Oxalate (Lexapro) 10 mg PO DAILY [facility] Last Admin: 12/10/16 10:08 Dose: 10 mg Gabapentin (Neurontin) 800 mg PO TID [facility] PRN Reason: Protocol Last Admin: 12/10/16 20:04 Dose: 800 mg Heparin Sodium (Porcine) (Heparin) 5,000 units SC Q12 [facility] PRN Reason: Protocol Last Admin: 12/10/16 09:49 Dose: Not Given Hydrocortisone (Cortizone 1% Cream) 0 gm TOP BID [facility] Last Admin: 12/10/16 20:06 Dose: 1 appl Hydrocortisone/Pramoxine (Proctofoam) 1 gm TOP TID [facility] Last Admin: 12/10/16 20:26 Dose: Not Given Meropenem 1g/NS 100mL IVPB (Meropenem 1g/Ns 100ml Ivpb) 100 mls @ 100 mls/hr IVPB Q8H [facility] Last Admin: 12/10/16 19:05 Dose: 100 mls/hr Ondansetron HCl (Zofran Inj) 4 mg IVP Q8 PRN PRN Reason: Nausea/Vomiting Oxycodone HCl (Oxycontin Extended Release Tab) 60 mg PO Q12 [facility] Oxycodone HCl (Oxycodone Immediate Release Tab) 15 mg PO BID PRN PRN Reason: Pain, moderate (4-7) Last Admin: 12/10/16 18:19 Dose: 15 mg Pantoprazole Sodium (Protonix Inj) 40 mg IVP DAILY [facility] Last Admin: 12/10/16 09:53 Dose: 40 mg Quetiapine Fumarate (Seroquel) 200 mg PO BID [facility] PRN Reason: Protocol Last Admin: 12/10/16 20:05 Dose: 200 mg Simethicone (Mylicon Chew Tab) 80 mg PO [facility] PRN PRN Reason: GI distress Last Admin: 12/09/16 17:12 Dose: 80 mg Zolpidem Tartrate (Ambien) 5 mg PO [facility] PRN Reason: Protocol Last Admin: 12/10/16 00:34 Dose: 5 mg - Labs Labs: 12/10/16 06:30 12/09/16 05:30 PT 13.4 Seconds (9.9-11.8) H 12/07/16 08:14 INR 1.24 (0.93-1.08) H 12/07/16 08:14 APTT 31.0 Seconds (23.7-30.8) H 12/07/16 08:14 Assessment and Plan - Assessment and Plan (Free Text) Assessment: I have seen and examined this patient myself. I agree with assessment and plan as per resident's note.
--- NOTE | 2016-12-08 13:01 | CP.PCM.PN ---
<NicoletteJosiah - Last Filed: 12/08/16 13:37> Subjective - Date & Time of Evaluation Date of Evaluation: 12/08/16 Time of Evaluation: 07:00 - Subjective Subjective: PGY-1 Medicine Progress note for Dr. Kincaid Pt seen and examined at bedside. No acute event overnight. Patient resting in bed comfortably on CHEMICAL PROCESSING SUPERVISOR. She is POD#1 s/p exploratory laparotomy, perirectal abscess I&D, removal of phlegmon, diverting colostomy. Patient complaining of abdominal pain still. She is NPO. Colostomy site 0 cc, R ELLA drain 20 cc, and L ELLA drain 60 cc of output overnight. Admitted to [facility]. Denied fever/chills, cp , sob, palpitations, vomiting, diarrhea, incontinence. Objective - Vital Signs/Intake and Output Vital Signs (last 24 hours): Temp Pulse Resp BP Pulse Ox 98.2 F 64 28 H 87/53 L 97 12/08/16 12:00 12/08/16 12:15 12/08/16 12:00 12/08/16 12:15 12/08/16 12:15 Intake and Output: 12/08/16 12/08/16 06:59 18:59 Intake Total 1800 Output Total 1380 Balance 420 - Medications Medications: Current Medications Acetaminophen (Tylenol 325mg Tab) 650 mg PO Q6H PRN PRN Reason: Pain, moderate (4-7) Last Admin: 12/05/16 01:13 Dose: 650 mg Clonazepam (Klonopin) 1 mg PO TID [facility] Stop: 12/15/16 18:01 Last Admin: 12/08/16 09:24 Dose: Not Given Docusate Sodium (Colace) 100 mg PO TID [facility] Last Admin: 12/08/16 09:22 Dose: 100 mg Escitalopram Oxalate (Lexapro) 10 mg PO DAILY [facility] Last Admin: 12/08/16 09:23 Dose: 10 mg Gabapentin (Neurontin) 800 mg PO TID [facility] PRN Reason: Protocol Last Admin: 12/08/16 09:24 Dose: Not Given Heparin Sodium (Porcine) (Heparin) 5,000 units SC Q12 [facility] PRN Reason: Protocol Last Admin: 12/08/16 09:23 Dose: 5,000 units Hydrocortisone (Cortizone 1% Cream) 0 gm TOP BID [facility] Last Admin: 12/08/16 11:15 Dose: 1 appl Hydrocortisone/Pramoxine (Proctofoam) 1 gm TOP TID [facility] Last Admin: 12/08/16 09:24 Dose: Not Given Ertapenem 1 gm/ Sodium (Chloride) 50 mls @ 100 mls/hr IVPB Q24H [facility] Stop: 12/11/16 12:46 Last Admin: 12/06/16 13:29 Dose: 100 mls/hr Hydromorphone HCl (Dilaudid 0.2 Mg/Ml Clinical Trainer) 25 mls @ 0 mls/hr IV PRN PRN; Protocol; Per Protocol PRN Reason: CHEMICAL PROCESSING SUPERVISOR PER MD ORDER Last Admin: 12/07/16 19:07 Dose: 0.2 mls/hr Dextrose/Sodium Chloride (Dextrose 5%/0.9% Ns 1000 Ml) 1,000 mls @ 150 mls/hr IV .Q6H40M [facility] Last Admin: 12/08/16 11:03 Dose: 150 mls/hr Ondansetron HCl (Zofran Inj) 4 mg IVP Q8 PRN PRN Reason: Nausea/Vomiting Pantoprazole Sodium (Protonix Inj) 40 mg IVP DAILY [facility] Last Admin: 12/08/16 09:23 Dose: 40 mg Quetiapine Fumarate (Seroquel) 200 mg PO BID [facility] PRN Reason: Protocol Last Admin: 12/08/16 09:25 Dose: Not Given Zolpidem Tartrate (Ambien) 5 mg PO HS [facility] PRN Reason: Protocol Last Admin: 12/07/16 22:31 Dose: 5 mg - Labs Labs: 12/08/16 05:45 12/08/16 05:45 PT 13.4 Seconds (9.9-11.8) H 12/07/16 08:14 INR 1.24 (0.93-1.08) H 12/07/16 08:14 APTT 31.0 Seconds (23.7-30.8) H 12/07/16 08:14 - Constitutional Appears: No Acute Distress - Head Exam Head Exam: ATRAUMATIC, NORMOCEPHALIC - Eye Exam Eye Exam: EOMI, Normal appearance Pupil Exam: PERRL - ENT Exam ENT Exam: Mucous Membranes Moist - Respiratory Exam Respiratory Exam: Clear to Ausculation Bilateral, NORMAL BREATHING PATTERN - Cardiovascular Exam Cardiovascular Exam: REGULAR RHYTHM, +S1, +S2 - GI/Abdominal Exam GI & Abdominal Exam: Soft, Tenderness, Normal Bowel Sounds. absent: Distended, Guarding, Rebound Additional comments: colostomy site pink and intact Right and left ella drains in place with serosanguinous drainage - Extremities Exam Extremities Exam: Normal Capillary Refill - Back Exam Back Exam: absent: CVA tenderness (L), CVA tenderness (R) - Neurological Exam Neurological Exam: Alert, Awake, CN II-XII Intact, Oriented x3 - Psychiatric Exam Psychiatric exam: Normal Affect, Normal Mood - Skin Skin Exam: Dry, Intact, Normal Color, Warm Assessment and Plan - Assessment and Plan (Free Text) Plan: 51yo F with PMHx of Crohn's disease, perirectal abscess, Bipolar disorder, Drug abuse, Opiate dependence and non-compliance with follow up here for evaluation of abdominal pain. 1. Abd Pain CT Abd/Pelvis - evidence of pelvic cyst w/lymphadenopathy. Perirectal abscess. Diffuse constipation Failed IR perirectal abscess drainage 3 Cultures growing ESBL on Contact precautions ID following, Dr. Mcneill, appreciate recs Continue Ertapenem, Surgery consulted, Dr. Marti, appreciate recs s/p perirectal abscess I&D POD#3 s/p perirectal abscess i&D, removal of phlegmon, diverting colostomy on POD # 1 Patient to go to ICU from PACU for close monitoring Pain management 2. Hypokalemia resolved Continue to monitor and replete as necessary 3. Hx of Bipolar disorder Continue home meds Psych eval requested 4. Hx of drug abuse monitor for withdrawal Chronic opioid use/abuse. ?illicit drug use in the hospital overnight on 12/06. consider 1:1 if necessary Cessation counseling 5. PPx Protonix 40mg IV Daily Incentive Spirometer SCDs Discussed case with Dr. Codi Will, PGY-1 <Mari Kincaid B - Last Filed: 12/10/16 16:58> Objective - Vital Signs/Intake and Output Vital Signs (last 24 hours): Temp Pulse Resp BP Pulse Ox 98.7 F 65 16 100/67 99 12/09/16 13:23 12/09/16 13:23 12/09/16 13:23 12/09/16 13:23 12/09/16 13:23 Intake and Output: 12/09/16 12/09/16 06:59 18:59 Intake Total 2400 1190 Output Total 970 935 Balance 1430 255 - Medications Medications: Current Medications Acetaminophen (Tylenol 325mg Tab) 650 mg PO Q6H PRN PRN Reason: Pain, moderate (4-7) Last Admin: 12/08/16 20:36 Dose: 650 mg Al Hydrox/Mg Hydrox/Simethicone (Maalox Plus 30 Ml) 30 ml PO DAILY PRN PRN Reason: Indigestion / Heartburn Clonazepam (Klonopin) 1 mg PO TID [facility] Stop: 12/15/16 18:01 Last Admin: 12/08/16 17:55 Dose: 1 mg Docusate Sodium (Colace) 100 mg PO TID [facility] Last Admin: 12/09/16 14:41 Dose: 100 mg Escitalopram Oxalate (Lexapro) 10 mg PO DAILY [facility] Last Admin: 12/08/16 09:23 Dose: 10 mg Gabapentin (Neurontin) 800 mg PO TID [facility] PRN Reason: Protocol Last Admin: 12/09/16 14:40 Dose: 800 mg Heparin Sodium (Porcine) (Heparin) 5,000 units SC Q12 [facility] PRN Reason: Protocol Last Admin: 12/09/16 09:32 Dose: 5,000 units Hydrocortisone (Cortizone 1% Cream) 0 gm TOP BID [facility] Last Admin: 12/09/16 09:41 Dose: 1 appl Hydrocortisone/Pramoxine (Proctofoam) 1 gm TOP TID [facility] Last Admin: 12/09/16 09:43 Dose: Not Given Dextrose/Sodium Chloride (Dextrose 5%/0.9% Ns 1000 Ml) 1,000 mls @ 150 mls/hr IV .Q6H40M [facility] Last Admin: 12/09/16 00:30 Dose: 150 mls/hr Meropenem 1g/NS 100mL IVPB (Meropenem 1g/Ns 100ml Ivpb) 100 mls @ 100 mls/hr IVPB Q8H [facility] Last Admin: 12/09/16 10:38 Dose: 100 mls/hr Ondansetron HCl (Zofran Inj) 4 mg IVP Q8 PRN PRN Reason: Nausea/Vomiting Oxycodone/Acetaminophen (Percocet 5/325 Mg Tab) 2 tab PO Q6H PRN PRN Reason: Pain, moderate (4-7) Stop: 12/12/16 13:21 Last Admin: 12/09/16 14:40 Dose: 2 tab Pantoprazole Sodium (Protonix Inj) 40 mg IVP DAILY [facility] Last Admin: 12/09/16 09:35 Dose: 40 mg Quetiapine Fumarate (Seroquel) 200 mg PO BID [facility] PRN Reason: Protocol Last Admin: 12/08/16 22:20 Dose: 200 mg Simethicone (Mylicon Chew Tab) 80 mg PO [facility] PRN PRN Reason: GI distress Last Admin: 12/08/16 17:55 Dose: 80 mg Zolpidem Tartrate (Ambien) 5 mg PO HS [facility] PRN Reason: Protocol Last Admin: 12/08/16 22:21 Dose: 5 mg - Labs Labs: 12/09/16 05:30 12/09/16 05:30 PT 13.4 Seconds (9.9-11.8) H 12/07/16 08:14 INR 1.24 (0.93-1.08) H 12/07/16 08:14 APTT 31.0 Seconds (23.7-30.8) H 12/07/16 08:14 Attending/Attestation - Attestation I have personally seen and examined this patient.: Yes I have fully participated in the care of the patient.: Yes I have reviewed all pertinent clinical information, including history, physical exam and plan: Yes Notes (Text): I have seen and examined patient at bedside. This is 51 year old female with history of Crohn's disease s/p right hemicolectomy, asthma, psoriasis, anxiety, depression, perirectal abscess, Bipolar disorder, Drug abuse, Opiate dependence and non-compliance with follow up here for evaluation of abdominal pain and found to have sepsis secondary to peirectal abscess s/p IR guided drainage and s/p ex lap , removal of phlegmon, diverting colostomy. POD#1. I&D. Wound is growing ESBL producing multidrug resistant E. coli now on ertapenem. Hypokalemia resolved. Currently on Dialudid CHEMICAL PROCESSING SUPERVISOR. Upon discharge patient will follow up with PMD of choice. Dr Mari Kincaid
[2016-12-08] MEDS ORDERED: Sodium Chloride 0.9% 1,000 ML IV STA (16:23)
[2016-12-08] MEDS: HYDROmorphone 0.2 mg/ml (25ml) 25 ML IV PRN (16:49)
[2016-12-08] MEDS ORDERED: Alum-Mag Hydrox-Simethicone Susp (30 mL) PO PRN (17:30)
[2016-12-08] MEDS: Simethicone 80 mg Chewtab PO PRN (17:55)
[2016-12-09] MEDS: Dextrose 5%/0.9% NS 1,000 ML IV SCH ×3 (00:30→23:20)
[2016-12-09 05:44] LABS: ADD MANUAL DIFF? NO
[2016-12-09 05:59] LABS: ALB/GLOB RATIO 0.7 (1.1-1.8); ALKALINE PHOSPHATASE 63 U/L (38-133); ALT/SGPT 15 U/L (7-56); AST/SGOT 18 U/L (15-39); BILIRUBIN,TOTAL 0.2 mg/dL (0.2-1.3); BLOOD UREA NITROGEN 3 mg/dL (7-21); CALCIUM 7.6 mg/dL (8.4-10.5); CARBON DIOXIDE 28 mmol/L (21-33); CHLORIDE 106 mmol/L (95-110); GFR AFRICAN-AMERICAN > 60; GLUCOSE,RANDOM 96 mg/dL (70-110); POTASSIUM 3.7 mmol/L (3.6-5.0); SODIUM 139 mmol/L (132-148)
[2016-12-09 06:20] LABS: EOS % 6.1 % (1.5-5.0); GRAN % 67.8 % (50.0-68.0); HEMATOCRIT 26.3 % (36.0-48.0); LYMPH % 16.5 % (22.0-35.0); MEAN CELL VOLUME 88.6 fL (80.0-105.0); MEAN CORPUSCULAR HEMOGLOBIN 27.6 pg (25.0-35.0); MEAN CORPUSCULAR HGB CONC 31.2 g/dl (31.0-37.0); MEAN PLATELET VOLUME 9.8 fl (7.0-11.0); MONO % 9.3 % (1.0-6.0); PLATELET COUNT 449 10^3/uL (120.0-450.0); RED CELL DISTRIBUTION WIDTH 16.2 % (11.5-14.5); WHITE BLOOD COUNT 7.8 10^3/ul (4.5-11.0)
[2016-12-09 06:21] LABS: BASO # 0.02 K/mm3 (0.0-2.0); BASO % 0.3 % (0.0-3.0); EOS # 0.5 (0.0-0.7); GRAN # 5.26 (1.4-6.5); LYMPH # 1.3 (1.2-3.4); MONO # 0.7 (0.1-0.6)
[2016-12-09] MEDS ORDERED: Oxycodone/Acetaminophen 5/325 mg Tab PO PRN (08:02)
[2016-12-09] MEDS: Hydrocortisone 1% Cream (30 GM) TOP SCH ×2 (09:41→17:12)
[2016-12-09] MEDS: Hydrocortisone-Pramoxine 1%-1% Foam(10 gm) TOP SCH (09:43)
[2016-12-09] MEDS ORDERED: oxyCODONE 10 mg ER Tab (oxyCONTIN) PO SCH (10:00)
[2016-12-09] MEDS: Meropenem 1g/NS 100mL IVPB 100 ML IVPB SCH ×3 (10:38→23:58)
--- NOTE | 2016-12-09 12:14 | CP.CCUPN ---
<Cindy Coleman - Last Filed: 12/09/16 12:11> CCU Subjective - Physician Review Subjective (Free Text): 12/08/16 10:44 Pt s&e w ICU attending. Pt resting comfortably. Denies F/C/N/V/D/CP/SOB. c/o abd pain. - amb, + void, +ostomy output . Tolerating CLD. BP stable. SBP 90s. 12/09/16 12:16 CCU Objective - Vital Signs / Intake & Output Intake and Output (Last 8hrs): Intake & Output 12/08/16 12/09/16 12/09/16 22:59 06:59 14:59 Intake Total 2440 2400 0 Output Total 50 970 Balance 2390 1430 0 Intake: IV 1900 1800 0 Right Internal Jugular 1900 1800 Oral 540 600 Output: Drainage 50 70 left ella 30 50 right ella 20 20 Urine 800 Urine, Voided 800 Stool 100 - Physical Exam Head: Positive for: Atraumatic, Normocephalic Pupils: Positive for: PERRL Extroacular Muscles: Positive for: EOMI Conjunctiva: Positive for: Normal Ears: Positive for: Normal Mouth: Positive for: Moist Mucous Membranes Pharnyx: Positive for: Normal Nose (External): Positive for: Atraumatic Nose (Internal): Positive for: Normal Inspection Neck: Positive for: Normal Range of Motion Respiratory/Chest: Positive for: Clear to Auscultation, Good Air Exchange Cardiovascular: Positive for: Regular Rate and Rhythm, Normal S1, S2 Abdomen: Positive for: Tenderness, Ostomy Tubes, Other (100cc output on ostomy: pink patent). Negative for: Distention, Peritoneal Signs, Rebound Upper Extremity: Positive for: Normal Inspection Lower Extremity: Positive for: Normal Inspection Neurological: Positive for: GCS=15, CN II-XII Intact, Speech Normal Psychiatric: Positive for: Alert, Oriented x 3 - Medications Active Medications: Active Medications Generic Name Dose Route Start Last Admin Trade Name Freq PRN Reason Stop Dose Admin Acetaminophen 650 mg 12/01/16 21:00 12/08/16 20:36 Tylenol 325mg Tab PO 650 mg Q6H PRN Administration Pain, moderate (4-7) Al Hydrox/Mg Hydrox/Simethicone 30 ml 12/08/16 17:30 Maalox Plus 30 Ml PO DAILY PRN Indigestion / Heartburn Clonazepam 1 mg 12/08/16 14:44 12/08/16 17:55 Klonopin PO 12/15/16 18:01 1 mg TID RAOUL Administration Docusate Sodium 100 mg 12/05/16 14:00 12/09/16 10:33 Colace PO 100 mg TID RAOUL Administration Escitalopram Oxalate 10 mg 12/02/16 10:00 12/08/16 09:23 Lexapro PO 10 mg DAILY RAOUL Administration Gabapentin 800 mg 12/02/16 10:00 12/09/16 09:33 Neurontin PO 800 mg TID RAOUL Administration Protocol Heparin Sodium (Porcine) 5,000 units 12/08/16 10:00 12/09/16 09:32 Heparin SC 5,000 units Q12 RAOUL Administration Protocol Hydrocortisone 0 gm 12/01/16 21:00 12/09/16 09:41 Cortizone 1% Cream TOP 1 appl BID RAOUL Administration Hydrocortisone/Pramoxine 1 gm 12/04/16 18:00 12/09/16 09:43 Proctofoam TOP Not Given TID RAOUL Dextrose/Sodium Chloride 1,000 mls @ 150 mls/hr 12/08/16 10:42 12/09/16 00:30 Dextrose 5%/0.9% Ns 1000 Ml IV 150 mls/hr .Q6H40M RAOUL Administration Meropenem 1g/NS 100mL IVPB 100 mls @ 100 mls/hr 12/09/16 08:45 12/09/16 10:38 Meropenem 1g/Ns 100ml Ivpb IVPB 100 mls/hr Q8H RAOUL Administration Ondansetron HCl 4 mg 12/01/16 21:00 Zofran Inj IVP Q8 PRN Nausea/Vomiting Oxycodone/Acetaminophen 1 tab 12/09/16 08:02 12/09/16 09:39 Percocet 5/325 Mg Tab PO 12/12/16 08:03 1 tab Q6H PRN Administration Pain, moderate (4-7) Pantoprazole Sodium 40 mg 12/06/16 10:00 12/09/16 09:35 Protonix Inj IVP 40 mg DAILY RAOUL Administration Quetiapine Fumarate 200 mg 12/02/16 10:00 12/08/16 22:20 Seroquel PO 200 mg BID RAOUL Administration Protocol Simethicone 80 mg 12/08/16 17:26 12/08/16 17:55 Mylicon Chew Tab PO 80 mg PCHS PRN Administration GI distress Zolpidem Tartrate 5 mg 12/01/16 22:00 12/08/16 22:21 Ambien PO 5 mg HS RAOUL Administration Protocol - Patient Studies Lab Studies: Microbiology Studies 12/05/16 11:00 Blood Culture - Preliminary Blood-Venous NO GROWTH AFTER 4 DAYS 12/05/16 11:30 Blood Culture - Preliminary Blood-Venous NO GROWTH AFTER 4 DAYS 12/07/16 10:32 Gram Stain - Final Other: Please Indicate Wound Culture - Preliminary NO GROWTH AFTER 24 HOURS 12/07/16 17:00 MRSA Culture (Admit) - Final Nose MRSA NOT DETECTED 12/05/16 15:26 Gram Stain - Final Abscess - Anal Anaerobic Culture - Final NO ANAEROBES ISOLATED. Wound Culture - Final No growth. Lab Studies 12/09/16 12/08/16 Range/Units 05:30 05:45 WBC 7.8 (4.5-11.0) 10^3/ul RBC 2.97 L (3.5-6.1) 10^6/uL Hgb 8.2 L (12.0-16.0) gm/dL Hct 26.3 L (36.0-48.0) % MCV 88.6 (80.0-105.0) fL MCH 27.6 (25.0-35.0) pg MCHC 31.2 (31.0-37.0) g/dl RDW 16.2 H (11.5-14.5) % Plt Count 449 (120.0-450.0) 10^3/uL MPV 9.8 (7.0-11.0) fl Gran % 67.8 (50.0-68.0) % Lymph % (Auto) 16.5 L (22.0-35.0) % Todd % (Auto) 9.3 H (1.0-6.0) % Eos % (Auto) 6.1 H (1.5-5.0) % Baso % (Auto) 0.3 (0.0-3.0) % Gran # 5.26 (1.4-6.5) Lymph # 1.3 (1.2-3.4) Todd # 0.7 H (0.1-0.6) Eos # 0.5 (0.0-0.7) Baso # 0.02 (0.0-2.0) K/mm3 Sodium 139 (132-148) mmol/L Potassium 3.7 (3.6-5.0) mmol/L Chloride 106 (95-110) mmol/L Carbon Dioxide 28 (21-33) mmol/L Anion Gap 9 L (10-20) BUN 3 L (7-21) mg/dL Creatinine 0.6 (0.5-1.4) mg/dL Est GFR ( Amer) > 60 Est GFR (Non-Af Amer) > 60 Random Glucose 96 (70-110) mg/dL Calcium 7.6 L (8.4-10.5) mg/dL Magnesium 1.9 (1.7-2.2) mg/dL Total Bilirubin 0.2 (0.2-1.3) mg/dL AST 18 (15-39) U/L ALT 15 (7-56) U/L Alkaline Phosphatase 63 (38-133) U/L Total Protein 5.0 L (5.8-8.3) g/dL Albumin 2.0 L (3.0-4.8) g/dL Globulin 3.0 gm/dL Albumin/Globulin Ratio 0.7 L (1.1-1.8) Laboratory Results - last 24 hr 12/08/16 12/09/16 05:45 05:30 WBC 7.8 RBC 2.97 L Hgb 8.2 L Hct 26.3 L MCV 88.6 MCH 27.6 MCHC 31.2 RDW 16.2 H Plt Count 449 MPV 9.8 Gran % 67.8 Lymph % (Auto) 16.5 L Todd % (Auto) 9.3 H Eos % (Auto) 6.1 H Baso % (Auto) 0.3 Gran # 5.26 Lymph # 1.3 Todd # 0.7 H Eos # 0.5 Baso # 0.02 Sodium 139 Potassium 3.7 Chloride 106 Carbon Dioxide 28 Anion Gap 9 L BUN 3 L Creatinine 0.6 Est GFR ( Amer) > 60 Est GFR (Non-Af Amer) > 60 Random Glucose 96 Calcium 7.6 L Magnesium 1.9 Total Bilirubin 0.2 AST 18 ALT 15 Alkaline Phosphatase 63 Total Protein 5.0 L Albumin 2.0 L Globulin 3.0 Albumin/Globulin Ratio 0.7 L Review of Systems - Constitutional Constitutional: absent: Fever, Chills, Sweats, Weakness, Malaise - EENT Eyes: absent: Blurred Vision Ears: absent: Decreased Hearing Nose/Mouth/Throat: UNREMARKABLE - Breasts Breasts: UNREMARKABLE - Cardiovascular Cardiovascular: absent: Chest Pain, Leg Ulcers - Respiratory Respiratory: UNREMARKABLE. absent: Cough, Dyspnea - Gastrointestinal Gastrointestinal: Abdominal Pain. absent: Belching, Bloating, Heartburn, Hematemesis, Hematochezia, Loose Stools, Nausea, Temesmus, Vomiting Critical Care Progress Note - Ventilator Checklist Head of Bed 30 Degrees: Yes Daily Sedation Vacation: No - Nutrition Nutrition: Nutrition Category Date Time Status Liquid Diet [DIET] Diets 12/07/16 Dinner Ordered Assessment/Plan - Assessment and Plan (Free Text) Assessment: 51 y/o PMH of Crohn, Post op day 2 s/p ex-lap and vlad rectal abscess drainage and colostomy Neuro: Currently awake and alert following commands. -Percocet, Oxycodone -Neurontin -Tylenol CV: Keep MAP +65 -D5 1/2 NS @ 150 -MOnitor I/O Pulm: OOB, IS, ambulation -NC 2L O2 GI: CLD -diet per surgery -Monitor ostomy output -ELLA 120cc/24hrs -Zofran/Colace/Maalox/PTX/cortisone cream Renal -Urine output 1L /24hr (+5L ) -electrolyte to be repleted. ID: Afebrile, No leukocytosis - Merrem per I.D for vlad rectal abscess. Endo -keep BS 140-180 Psych: h/o psychiatric d/o -may need 1:1 due to possible ilicit drug use in hospital -Lexapro -Seroquel -Ambien -Klonopin DVT ppx: SCD, SQH, amulation, OOB, PT Dispo: transfer to Med/surg DW ICU attending <Crow Kincaid MD - Last Filed: 12/09/16 15:01> CCU Objective - Vital Signs / Intake & Output Vital Signs (Last 4 hours): Vital Signs Temp Pulse Resp BP Pulse Ox 12/09/16 13:23 98.7 F 65 16 100/67 99 12/09/16 12:00 99.3 F 62 18 95/65 L Intake and Output (Last 8hrs): Intake & Output 12/08/16 12/09/16 12/09/16 22:59 06:59 14:59 Intake Total 2440 2400 1190 Output Total 50 970 935 Balance 2390 1430 255 Weight 136 lb 8 oz Intake: IV 1900 1800 750 Right Internal Jugular 1900 1800 750 Oral 540 600 240 Other 200 Output: Drainage 50 70 35 left ella 30 50 15 right elal 20 20 20 Urine 800 850 Urine, Voided 800 850 Stool 100 50 - Medications Active Medications: Active Medications Generic Name Dose Route Start Last Admin Trade Name Freq PRN Reason Stop Dose Admin Acetaminophen 650 mg 12/01/16 21:00 12/08/16 20:36 Tylenol 325mg Tab PO 650 mg Q6H PRN Administration Pain, moderate (4-7) Al Hydrox/Mg Hydrox/Simethicone 30 ml 12/08/16 17:30 Maalox Plus 30 Ml PO DAILY PRN Indigestion / Heartburn Clonazepam 1 mg 12/08/16 14:44 12/08/16 17:55 Klonopin PO 12/15/16 18:01 1 mg TID RAOUL Administration Docusate Sodium 100 mg 12/05/16 14:00 12/09/16 14:41 Colace PO 100 mg TID RAOUL Administration Escitalopram Oxalate 10 mg 12/02/16 10:00 12/08/16 09:23 Lexapro PO 10 mg DAILY RAOUL Administration Gabapentin 800 mg 12/02/16 10:00 12/09/16 14:40 Neurontin PO 800 mg TID RAOUL Administration Protocol Heparin Sodium (Porcine) 5,000 units 12/08/16 10:00 12/09/16 09:32 Heparin SC 5,000 units Q12 RAOUL Administration Protocol Hydrocortisone 0 gm 12/01/16 21:00 12/09/16 09:41 Cortizone 1% Cream TOP 1 appl BID RAOUL Administration Hydrocortisone/Pramoxine 1 gm 12/04/16 18:00 12/09/16 09:43 Proctofoam TOP Not Given TID RAOUL Dextrose/Sodium Chloride 1,000 mls @ 150 mls/hr 12/08/16 10:42 12/09/16 00:30 Dextrose 5%/0.9% Ns 1000 Ml IV 150 mls/hr .Q6H40M RAOUL Administration Meropenem 1g/NS 100mL IVPB 100 mls @ 100 mls/hr 12/09/16 08:45 12/09/16 10:38 Meropenem 1g/Ns 100ml Ivpb IVPB 100 mls/hr Q8H [facility]OU[facility] Administration Ondansetron HCl 4 mg 12/01/16 21:00 Zofran Inj IVP Q8 PRN Nausea/Vomiting Oxycodone/Acetaminophen 2 tab 12/09/16 13:20 12/09/16 14:40 Percocet 5/325 Mg Tab PO 12/12/16 13:21 2 tab Q6H PRN Administration Pain, moderate (4-7) Pantoprazole Sodium 40 mg 12/06/16 10:00 12/09/16 09:35 Protonix Inj IVP 40 mg DAILY RAOUL Administration Quetiapine Fumarate 200 mg 12/02/16 10:00 12/08/16 22:20 Seroquel PO 200 mg BID RAOUL Administration Protocol Simethicone 80 mg 12/08/16 17:26 12/08/16 17:55 Mylicon Chew Tab PO 80 mg PCHS PRN Administration GI distress Zolpidem Tartrate 5 mg 12/01/16 22:00 12/08/16 22:21 Ambien PO 5 mg HS RAOUL Administration Protocol - Patient Studies Lab Studies: Microbiology Studies 12/05/16 11:00 Blood Culture - Preliminary Blood-Venous NO GROWTH AFTER 4 DAYS 12/05/16 11:30 Blood Culture - Preliminary Blood-Venous NO GROWTH AFTER 4 DAYS 12/07/16 10:32 Gram Stain - Final Other: Please Indicate Wound Culture - Preliminary NO GROWTH AFTER 24 HOURS 12/07/16 17:00 MRSA Culture (Admit) - Final Nose MRSA NOT DETECTED Lab Studies 12/09/16 Range/Units 05:30 WBC 7.8 (4.5-11.0) 10^3/ul RBC 2.97 L (3.5-6.1) 10^6/uL Hgb 8.2 L (12.0-16.0) gm/dL Hct 26.3 L (36.0-48.0) % MCV 88.6 (80.0-105.0) fL MCH 27.6 (25.0-35.0) pg MCHC 31.2 (31.0-37.0) g/dl RDW 16.2 H (11.5-14.5) % Plt Count 449 (120.0-450.0) 10^3/uL MPV 9.8 (7.0-11.0) fl Gran % 67.8 (50.0-68.0) % Lymph % (Auto) 16.5 L (22.0-35.0) % Todd % (Auto) 9.3 H (1.0-6.0) % Eos % (Auto) 6.1 H (1.5-5.0) % Baso % (Auto) 0.3 (0.0-3.0) % Gran # 5.26 (1.4-6.5) Lymph # 1.3 (1.2-3.4) Todd # 0.7 H (0.1-0.6) Eos # 0.5 (0.0-0.7) Baso # 0.02 (0.0-2.0) K/mm3 Sodium 139 (132-148) mmol/L Potassium 3.7 (3.6-5.0) mmol/L Chloride 106 (95-110) mmol/L Carbon Dioxide 28 (21-33) mmol/L Anion Gap 9 L (10-20) BUN 3 L (7-21) mg/dL Creatinine 0.6 (0.5-1.4) mg/dL Est GFR ( Amer) > 60 Est GFR (Non-Af Amer) > 60 Random Glucose 96 (70-110) mg/dL Calcium 7.6 L (8.4-10.5) mg/dL Total Bilirubin 0.2 (0.2-1.3) mg/dL AST 18 (15-39) U/L ALT 15 (7-56) U/L Alkaline Phosphatase 63 (38-133) U/L Total Protein 5.0 L (5.8-8.3) g/dL Albumin 2.0 L (3.0-4.8) g/dL Globulin 3.0 gm/dL Albumin/Globulin Ratio 0.7 L (1.1-1.8) Laboratory Results - last 24 hr 12/09/16 05:30 WBC 7.8 RBC 2.97 L Hgb 8.2 L Hct 26.3 L MCV 88.6 MCH 27.6 MCHC 31.2 RDW 16.2 H Plt Count 449 MPV 9.8 Gran % 67.8 Lymph % (Auto) 16.5 L Todd % (Auto) 9.3 H Eos % (Auto) 6.1 H Baso % (Auto) 0.3 Gran # 5.26 Lymph # 1.3 Todd # 0.7 H Eos # 0.5 Baso # 0.02 Sodium 139 Potassium 3.7 Chloride 106 Carbon Dioxide 28 Anion Gap 9 L BUN 3 L Creatinine 0.6 Est GFR ( Amer) > 60 Est GFR (Non-Af Amer) > 60 Random Glucose 96 Calcium 7.6 L Total Bilirubin 0.2 AST 18 ALT 15 Alkaline Phosphatase 63 Total Protein 5.0 L Albumin 2.0 L Globulin 3.0 Albumin/Globulin Ratio 0.7 L Critical Care Progress Note - Nutrition Nutrition: Nutrition Category Date Time Status Liquid Diet [DIET] Diets 12/07/16 Dinner Ordered Attending/Attestation - Attestation I have personally seen and examined this patient.: Yes I have fully participated in the care of the patient.: Yes I have reviewed all pertinent clinical information: Yes Notes (Text): 12/09/16 14:59 No new complaints On HAND SURGEON dilaudid with lockout SBP 85-105 without any new symptoms. Surgery cleared for PT and out of bed and transfer to regular med- surg floor s/p Colostomy and perirectal abscess drainage. In the event the patient does remain hypotensive and symptomatic, can work up for possible adrenal failure from steroid withdrawl.
--- NOTE | 2016-12-09 13:02 | CP.PCM.PN ---
<AnanthchristoferJosiah fields - Last Filed: 12/09/16 13:15> Subjective - Date & Time of Evaluation Date of Evaluation: 12/09/16 Time of Evaluation: 07:30 - Subjective Subjective: PGY-1 Medicine Progress note for Dr. Kincaid Pt seen and examined at bedside. No acute event overnight. She is POD#2 s/p exploratory laparotomy, perirectal abscess I&D, removal of phlegmon, diverting colostomy. Patient still complaining of abdominal pain. Patient is unsatisfied with her pain management since POWER SHOVEL ENGINEER was discontinued. Admitted to [facility]. Denied fever/chills, cp, sob, palpitations, vomiting, diarrhea, incontinence. Patient being transferred to the floor today. Objective - Vital Signs/Intake and Output Vital Signs (last 24 hours): Temp Pulse Resp BP Pulse Ox 99.3 F 62 18 95/65 L 96 12/09/16 12:00 12/09/16 12:00 12/09/16 12:00 12/09/16 12:00 12/09/16 06:00 Intake and Output: 12/09/16 12/09/16 06:59 18:59 Intake Total 2400 1190 Output Total 970 935 Balance 1430 255 - Medications Medications: Current Medications Acetaminophen (Tylenol 325mg Tab) 650 mg PO Q6H PRN PRN Reason: Pain, moderate (4-7) Last Admin: 12/08/16 20:36 Dose: 650 mg Al Hydrox/Mg Hydrox/Simethicone (Maalox Plus 30 Ml) 30 ml PO DAILY PRN PRN Reason: Indigestion / Heartburn Clonazepam (Klonopin) 1 mg PO TID [facility] Stop: 12/15/16 18:01 Last Admin: 12/08/16 17:55 Dose: 1 mg Docusate Sodium (Colace) 100 mg PO TID [facility] Last Admin: 12/09/16 10:33 Dose: 100 mg Escitalopram Oxalate (Lexapro) 10 mg PO DAILY [facility] Last Admin: 12/08/16 09:23 Dose: 10 mg Gabapentin (Neurontin) 800 mg PO TID [facility] PRN Reason: Protocol Last Admin: 12/09/16 09:33 Dose: 800 mg Heparin Sodium (Porcine) (Heparin) 5,000 units SC Q12 [facility] PRN Reason: Protocol Last Admin: 12/09/16 09:32 Dose: 5,000 units Hydrocortisone (Cortizone 1% Cream) 0 gm TOP BID [facility] Last Admin: 12/09/16 09:41 Dose: 1 appl Hydrocortisone/Pramoxine (Proctofoam) 1 gm TOP TID [facility] Last Admin: 12/09/16 09:43 Dose: Not Given Dextrose/Sodium Chloride (Dextrose 5%/0.9% Ns 1000 Ml) 1,000 mls @ 150 mls/hr IV .Q6H40M [facility] Last Admin: 12/09/16 00:30 Dose: 150 mls/hr Meropenem 1g/NS 100mL IVPB (Meropenem 1g/Ns 100ml Ivpb) 100 mls @ 100 mls/hr IVPB Q8H [facility] Last Admin: 12/09/16 10:38 Dose: 100 mls/hr Ondansetron HCl (Zofran Inj) 4 mg IVP Q8 PRN PRN Reason: Nausea/Vomiting Oxycodone/Acetaminophen (Percocet 5/325 Mg Tab) 1 tab PO Q6H PRN PRN Reason: Pain, moderate (4-7) Stop: 12/12/16 08:03 Last Admin: 12/09/16 09:39 Dose: 1 tab Pantoprazole Sodium (Protonix Inj) 40 mg IVP DAILY [facility] Last Admin: 12/09/16 09:35 Dose: 40 mg Quetiapine Fumarate (Seroquel) 200 mg PO BID [facility] PRN Reason: Protocol Last Admin: 12/08/16 22:20 Dose: 200 mg Simethicone (Mylicon Chew Tab) [address] [facility] PRN PRN Reason: GI distress Last Admin: 12/08/16 17:55 Dose: 80 mg Zolpidem Tartrate (Ambien) 5 mg PO [facility] PRN Reason: Protocol Last Admin: 12/08/16 22:21 Dose: 5 mg - Labs Labs: 12/09/16 05:30 12/09/16 05:30 PT 13.4 Seconds (9.9-11.8) H 12/07/16 08:14 INR 1.24 (0.93-1.08) H 12/07/16 08:14 APTT 31.0 Seconds (23.7-30.8) H 12/07/16 08:14 - Constitutional Appears: No Acute Distress - Head Exam Head Exam: ATRAUMATIC, NORMOCEPHALIC - Eye Exam Eye Exam: EOMI, Normal appearance Pupil Exam: PERRL - ENT Exam ENT Exam: Mucous Membranes Moist - Respiratory Exam Respiratory Exam: Clear to Ausculation Bilateral, NORMAL BREATHING PATTERN - Cardiovascular Exam Cardiovascular Exam: REGULAR RHYTHM, +S1, +S2 - GI/Abdominal Exam GI & Abdominal Exam: Soft, Tenderness, Normal Bowel Sounds Additional comments: colostomy site intact, stoma pink draining brown liquid R ella 20 cc of output, L ella 50 cc of output - Extremities Exam Extremities Exam: Normal Capillary Refill - Back Exam Back Exam: absent: CVA tenderness (L), CVA tenderness (R) - Neurological Exam Neurological Exam: Alert, Awake, CN II-XII Intact, Oriented x3 - Psychiatric Exam Psychiatric exam: Normal Affect, Normal Mood - Skin Skin Exam: Dry, Intact, Warm Assessment and Plan - Assessment and Plan (Free Text) Plan: 51yo F with PMHx of Crohn's disease, perirectal abscess, Bipolar disorder, Drug abuse, Opiate dependence and non-compliance with follow up here for evaluation of abdominal pain. 1. Abd Pain CT Abd/Pelvis - evidence of pelvic cyst w/lymphadenopathy. Perirectal abscess. Diffuse constipation Failed IR perirectal abscess drainage 3 Cultures growing ESBL Contact precautions ID following, Dr. Mcneill, help appreciated Continue Ertapenem, Surgery consulted, Dr. Marti, help appreciated s/p perirectal abscess I&D POD #4 s/p perirectal abscess i&D, removal of phlegmon, diverting colostomy on POD # 2 Pain management as per surgery 2. Hx of Bipolar disorder Continue home meds Psych eval requested 4. Hx of drug abuse monitor for withdrawal Chronic opioid use/abuse. ?illicit drug use in the hospital overnight on 12/06 Cessation counseling 5. PPx Protonix 40mg IV Daily Incentive Spirometer SCDs <Mari Kincaid B - Last Filed: 12/10/16 17:09> Objective - Vital Signs/Intake and Output Vital Signs (last 24 hours): Temp Pulse Resp BP Pulse Ox 98.5 F 64 18 122/76 97 12/10/16 07:21 12/10/16 07:21 12/10/16 07:21 12/10/16 07:21 12/10/16 07:21 Intake and Output: 12/10/16 12/10/16 06:59 18:59 Intake Total 120 380 Output Total 1600 Balance -1480 380 - Medications Medications: Current Medications Acetaminophen (Tylenol 325mg Tab) 650 mg PO Q6H PRN PRN Reason: Pain, moderate (4-7) Last Admin: 12/08/16 20:36 Dose: 650 mg Al Hydrox/Mg Hydrox/Simethicone (Maalox Plus 30 Ml) 30 ml PO DAILY PRN PRN Reason: Indigestion / Heartburn Clonazepam (Klonopin) 1 mg PO TID [facility] Stop: 12/15/16 18:01 Last Admin: 12/10/16 13:04 Dose: Not Given Docusate Sodium (Colace) 100 mg PO TID [facility] Last Admin: 12/10/16 15:19 Dose: 100 mg Escitalopram Oxalate (Lexapro) 10 mg PO DAILY [facility] Last Admin: 12/10/16 10:08 Dose: 10 mg Gabapentin (Neurontin) 800 mg PO TID [facility] PRN Reason: Protocol Last Admin: 12/10/16 14:00 Dose: Not Given Heparin Sodium (Porcine) (Heparin) 5,000 units SC Q12 [facility] PRN Reason: Protocol Last Admin: 12/10/16 09:49 Dose: Not Given Hydrocortisone (Cortizone 1% Cream) 0 gm TOP BID [facility] Last Admin: 12/10/16 10:10 Dose: 1 appl Hydrocortisone/Pramoxine (Proctofoam) 1 gm TOP TID [facility] Last Admin: 12/10/16 15:16 Dose: Not Given Meropenem 1g/NS 100mL IVPB (Meropenem 1g/Ns 100ml Ivpb) 100 mls @ 100 mls/hr IVPB Q8H [facility] Last Admin: 12/10/16 09:41 Dose: 100 mls/hr Ondansetron HCl (Zofran Inj) 4 mg IVP Q8 PRN PRN Reason: Nausea/Vomiting Oxycodone HCl (Oxycontin Extended Release Tab) 60 mg PO Q12 [facility] Oxycodone HCl (Oxycodone Immediate Release Tab) 15 mg PO BID PRN PRN Reason: Pain, moderate (4-7) Last Admin: 12/10/16 15:19 Dose: 15 mg Pantoprazole Sodium (Protonix Inj) 40 mg IVP DAILY [facility] Last Admin: 12/10/16 09:53 Dose: 40 mg Quetiapine Fumarate (Seroquel) 200 mg PO BID [facility] PRN Reason: Protocol Last Admin: 12/10/16 10:08 Dose: 200 mg Simethicone (Mylicon Chew Tab) 80 mg PO [facility] PRN PRN Reason: GI distress Last Admin: 12/09/16 17:12 Dose: 80 mg Zolpidem Tartrate (Ambien) 5 mg PO HS [facility] PRN Reason: Protocol Last Admin: 12/10/16 00:34 Dose: 5 mg - Labs Labs: 12/10/16 06:30 12/09/16 05:30 PT 13.4 Seconds (9.9-11.8) H 12/07/16 08:14 INR 1.24 (0.93-1.08) H 12/07/16 08:14 APTT 31.0 Seconds (23.7-30.8) H 12/07/16 08:14 Attending/Attestation - Attestation I have personally seen and examined this patient.: Yes I have fully participated in the care of the patient.: Yes I have reviewed all pertinent clinical information, including history, physical exam and plan: Yes Notes (Text): I have seen and examined patient at bedside. This is 51 year old female with history of Crohn's disease s/p right hemicolectomy, asthma, psoriasis, anxiety, depression, perirectal abscess, Bipolar disorder, Drug abuse, Opiate dependence and non-compliance with follow up here for evaluation of abdominal pain and found to have sepsis secondary to peirectal abscess s/p IR guided drainage and s/p ex lap , removal of phlegmon, diverting colostomy. POD#2. Wound is growing ESBL producing multi drug resistant E. coli now on ertapenem. Dialudid POWER SHOVEL ENGINEER was stopped. Patient was started on oxycodone. Upon discharge patient will follow up with PMD of choice. Dr Mari Kincaid
--- NOTE | 2016-12-09 13:28 | CP.PCM.PN ---
<Evan Holguin - Last Filed: 12/09/16 13:33> Subjective - Date & Time of Evaluation Date of Evaluation: 12/09/16 Time of Evaluation: 13:25 - Subjective Subjective: Surgery: Dr. Child Pt seen and examined. Per nursing no acute events overnight. Pain responds to medication. No F/C, no N.V. Stoma pink and patent w. output. Objective - Vital Signs/Intake and Output Vital Signs (last 24 hours): Temp Pulse Resp BP Pulse Ox 99.3 F 62 18 95/65 L 96 12/09/16 12:00 12/09/16 12:00 12/09/16 12:00 12/09/16 12:00 12/09/16 06:00 Intake and Output: 12/09/16 12/09/16 06:59 18:59 Intake Total 2400 1190 Output Total 970 935 Balance 1430 255 - Medications Medications: Current Medications Acetaminophen (Tylenol 325mg Tab) 650 mg PO Q6H PRN PRN Reason: Pain, moderate (4-7) Last Admin: 12/08/16 20:36 Dose: 650 mg Al Hydrox/Mg Hydrox/Simethicone (Maalox Plus 30 Ml) 30 ml PO DAILY PRN PRN Reason: Indigestion / Heartburn Clonazepam (Klonopin) 1 mg PO TID [facility] Stop: 12/15/16 18:01 Last Admin: 12/08/16 17:55 Dose: 1 mg Docusate Sodium (Colace) 100 mg PO TID [facility] Last Admin: 12/09/16 10:33 Dose: 100 mg Escitalopram Oxalate (Lexapro) 10 mg PO DAILY [facility] Last Admin: 12/08/16 09:23 Dose: 10 mg Gabapentin (Neurontin) 800 mg PO TID [facility] PRN Reason: Protocol Last Admin: 12/09/16 09:33 Dose: 800 mg Heparin Sodium (Porcine) (Heparin) 5,000 units SC Q12 [facility] PRN Reason: Protocol Last Admin: 12/09/16 09:32 Dose: 5,000 units Hydrocortisone (Cortizone 1% Cream) 0 gm TOP BID [facility] Last Admin: 12/09/16 09:41 Dose: 1 appl Hydrocortisone/Pramoxine (Proctofoam) 1 gm TOP TID [facility] Last Admin: 12/09/16 09:43 Dose: Not Given Dextrose/Sodium Chloride (Dextrose 5%/0.9% Ns 1000 Ml) 1,000 mls @ 150 mls/hr IV .Q6H40M [facility] Last Admin: 12/09/16 00:30 Dose: 150 mls/hr Meropenem 1g/NS 100mL IVPB (Meropenem 1g/Ns 100ml Ivpb) 100 mls @ 100 mls/hr IVPB Q8H [facility] Last Admin: 12/09/16 10:38 Dose: 100 mls/hr Ondansetron HCl (Zofran Inj) 4 mg IVP Q8 PRN PRN Reason: Nausea/Vomiting Oxycodone/Acetaminophen (Percocet 5/325 Mg Tab) 2 tab PO Q6H PRN PRN Reason: Pain, moderate (4-7) Stop: 12/12/16 13:21 Pantoprazole Sodium (Protonix Inj) 40 mg IVP DAILY [facility] Last Admin: 12/09/16 09:35 Dose: 40 mg Quetiapine Fumarate (Seroquel) 200 mg PO BID [facility] PRN Reason: Protocol Last Admin: 12/08/16 22:20 Dose: 200 mg Simethicone (Mylicon Chew Tab) 80 mg PO [facility] PRN PRN Reason: GI distress Last Admin: 12/08/16 17:55 Dose: 80 mg Zolpidem Tartrate (Ambien) 5 mg PO [facility] PRN Reason: Protocol Last Admin: 12/08/16 22:21 Dose: 5 mg - Labs Labs: 12/09/16 05:30 12/09/16 05:30 PT 13.4 Seconds (9.9-11.8) H 12/07/16 08:14 INR 1.24 (0.93-1.08) H 12/07/16 08:14 APTT 31.0 Seconds (23.7-30.8) H 12/07/16 08:14 - Constitutional Appears: Non-toxic, No Acute Distress - Head Exam Head Exam: ATRAUMATIC, NORMOCEPHALIC - Eye Exam Eye Exam: EOMI - ENT Exam ENT Exam: Mucous Membranes Moist, Normal External Ear Exam - Neck Exam Neck Exam: Full ROM - Respiratory Exam Respiratory Exam: NORMAL BREATHING PATTERN. absent: Accessory Muscle Use, Respiratory Distress - GI/Abdominal Exam GI & Abdominal Exam: Soft. absent: Distended, Firm, Guarding, Rigid, Tenderness , Rebound Additional comments: midline incision C/D/I, stoma pink and patent w. loose brown stool, blackes x 2 w. serosang output - Rectal Exam Additional comments: s/p ID of perirectal abscess, no drainage, tender, no erythema - Extremities Exam Extremities Exam: absent: Calf Tenderness, Pedal Edema - Neurological Exam Neurological Exam: Alert, Awake, Oriented x3 - Psychiatric Exam Psychiatric exam: Normal Affect, Normal Mood - Skin Skin Exam: Dry, Normal Color, Warm Assessment and Plan - Assessment and Plan (Free Text) Assessment: 51F w. perirectal abscess and stricture of rectum s/p diverting end colostomy w / drainage of perirectal phlegmon, POD#2 -Colostomy 100cc/24hr loose brown -R jean claude 20cc/24hr serosang, L jean claude 50cc/24hr serosang -D/C [employer], will start percocet -c/w CLD, ADAT -encourage OOB, ambulation, and IS use -GI/DVT prophylaxis -d/w attending [facility] PGY2 <Dheeraj Marti - Last Filed: 12/10/16 20:54> Subjective - Date & Time of Evaluation Date of Evaluation: 12/09/16 Time of Evaluation: 10:05 Objective - Vital Signs/Intake and Output Vital Signs (last 24 hours): Temp Pulse Resp BP Pulse Ox 98 F 62 20 108/59 L 98 12/10/16 16:00 12/10/16 16:00 12/10/16 16:00 12/10/16 16:00 12/10/16 16:00 Intake and Output: 12/10/16 12/11/16 18:59 06:59 Intake Total 380 Balance 380 - Medications Medications: Current Medications Acetaminophen (Tylenol 325mg Tab) 650 mg PO Q6H PRN PRN Reason: Pain, moderate (4-7) Last Admin: 12/08/16 20:36 Dose: 650 mg Al Hydrox/Mg Hydrox/Simethicone (Maalox Plus 30 Ml) 30 ml PO DAILY PRN PRN Reason: Indigestion / Heartburn Clonazepam (Klonopin) 1 mg PO TID [facility] Stop: 12/15/16 18:01 Last Admin: 12/10/16 20:05 Dose: 1 mg Docusate Sodium (Colace) 100 mg PO TID [facility] Last Admin: 12/10/16 20:05 Dose: 100 mg Escitalopram Oxalate (Lexapro) 10 mg PO DAILY [facility] Last Admin: 12/10/16 10:08 Dose: 10 mg Gabapentin (Neurontin) 800 mg PO TID [facility] PRN Reason: Protocol Last Admin: 12/10/16 20:04 Dose: 800 mg Heparin Sodium (Porcine) (Heparin) 5,000 units SC Q12 [facility] PRN Reason: Protocol Last Admin: 12/10/16 09:49 Dose: Not Given Hydrocortisone (Cortizone 1% Cream) 0 gm TOP BID [facility] Last Admin: 12/10/16 20:06 Dose: 1 appl Hydrocortisone/Pramoxine (Proctofoam) 1 gm TOP TID [facility] Last Admin: 12/10/16 20:26 Dose: Not Given Meropenem 1g/NS 100mL IVPB (Meropenem 1g/Ns 100ml Ivpb) 100 mls @ 100 mls/hr IVPB Q8H [facility] Last Admin: 12/10/16 19:05 Dose: 100 mls/hr Ondansetron HCl (Zofran Inj) 4 mg IVP Q8 PRN PRN Reason: Nausea/Vomiting Oxycodone HCl (Oxycontin Extended Release Tab) 60 mg PO Q12 [facility] Oxycodone HCl (Oxycodone Immediate Release Tab) 15 mg PO BID PRN PRN Reason: Pain, moderate (4-7) Last Admin: 12/10/16 18:19 Dose: 15 mg Pantoprazole Sodium (Protonix Inj) 40 mg IVP DAILY [facility] Last Admin: 12/10/16 09:53 Dose: 40 mg Quetiapine Fumarate (Seroquel) 200 mg PO BID [facility] PRN Reason: Protocol Last Admin: 12/10/16 20:05 Dose: 200 mg Simethicone (Mylicon Chew Tab) 80 mg PO [facility] PRN PRN Reason: GI distress Last Admin: 12/09/16 17:12 Dose: 80 mg Zolpidem Tartrate (Ambien) 5 mg PO HS [facility] PRN Reason: Protocol Last Admin: 12/10/16 00:34 Dose: 5 mg - Labs Labs: 12/10/16 06:30 12/09/16 05:30 PT 13.4 Seconds (9.9-11.8) H 12/07/16 08:14 INR 1.24 (0.93-1.08) H 12/07/16 08:14 APTT 31.0 Seconds (23.7-30.8) H 12/07/16 08:14 Assessment and Plan - Assessment and Plan (Free Text) Assessment: I have seen and examined this patient myself. I agree with assessment and plan as per resident's note.
[2016-12-09] MEDS: Oxycodone/Acetaminophen 5/325 mg Tab PO PRN ×2 (14:40→20:06)
--- NOTE | 2016-12-09 15:26 | CP.PCM.PN ---
Subjective - Date & Time of Evaluation Date of Evaluation: 12/09/16 Time of Evaluation: 07:20 - Subjective Subjective: Less abdominal pain, no fevers overnight. Objective - Vital Signs/Intake and Output Vital Signs (last 24 hours): Temp Pulse Resp BP Pulse Ox 98.7 F 65 16 100/67 99 12/09/16 13:23 12/09/16 13:23 12/09/16 13:23 12/09/16 13:23 12/09/16 13:23 Intake and Output: 12/09/16 12/09/16 06:59 18:59 Intake Total 2400 1190 Output Total 970 935 Balance 1430 255 - Medications Medications: Current Medications Acetaminophen (Tylenol 325mg Tab) 650 mg PO Q6H PRN PRN Reason: Pain, moderate (4-7) Last Admin: 12/08/16 20:36 Dose: 650 mg Al Hydrox/Mg Hydrox/Simethicone (Maalox Plus 30 Ml) 30 ml PO DAILY PRN PRN Reason: Indigestion / Heartburn Clonazepam (Klonopin) 1 mg PO TID [facility] Stop: 12/15/16 18:01 Last Admin: 12/08/16 17:55 Dose: 1 mg Docusate Sodium (Colace) 100 mg PO TID [facility] Last Admin: 12/09/16 14:41 Dose: 100 mg Escitalopram Oxalate (Lexapro) 10 mg PO DAILY [facility] Last Admin: 12/08/16 09:23 Dose: 10 mg Gabapentin (Neurontin) 800 mg PO TID [facility] PRN Reason: Protocol Last Admin: 12/09/16 14:40 Dose: 800 mg Heparin Sodium (Porcine) (Heparin) 5,000 units SC Q12 [facility] PRN Reason: Protocol Last Admin: 12/09/16 09:32 Dose: 5,000 units Hydrocortisone (Cortizone 1% Cream) 0 gm TOP BID [facility] Last Admin: 12/09/16 09:41 Dose: 1 appl Hydrocortisone/Pramoxine (Proctofoam) 1 gm TOP TID [facility] Last Admin: 12/09/16 09:43 Dose: Not Given Dextrose/Sodium Chloride (Dextrose 5%/0.9% Ns 1000 Ml) 1,000 mls @ 150 mls/hr IV .Q6H40M [facility] Last Admin: 12/09/16 00:30 Dose: 150 mls/hr Meropenem 1g/NS 100mL IVPB (Meropenem 1g/Ns 100ml Ivpb) 100 mls @ 100 mls/hr IVPB Q8H [facility] Last Admin: 12/09/16 10:38 Dose: 100 mls/hr Ondansetron HCl (Zofran Inj) 4 mg IVP Q8 PRN PRN Reason: Nausea/Vomiting Oxycodone/Acetaminophen (Percocet 5/325 Mg Tab) 2 tab PO Q6H PRN PRN Reason: Pain, moderate (4-7) Stop: 12/12/16 13:21 Last Admin: 12/09/16 14:40 Dose: 2 tab Pantoprazole Sodium (Protonix Inj) 40 mg IVP DAILY [facility] Last Admin: 12/09/16 09:35 Dose: 40 mg Quetiapine Fumarate (Seroquel) 200 mg PO BID [facility] PRN Reason: Protocol Last Admin: 12/08/16 22:20 Dose: 200 mg Simethicone (Mylicon Chew Tab) 80 mg PO [facility] PRN PRN Reason: GI distress Last Admin: 12/08/16 17:55 Dose: 80 mg Zolpidem Tartrate (Ambien) 5 mg PO HS [facility] PRN Reason: Protocol Last Admin: 12/08/16 22:21 Dose: 5 mg - Labs Labs: 12/09/16 05:30 12/09/16 05:30 PT 13.4 Seconds (9.9-11.8) H 12/07/16 08:14 INR 1.24 (0.93-1.08) H 12/07/16 08:14 APTT 31.0 Seconds (23.7-30.8) H 12/07/16 08:14 - Constitutional Appears: Non-toxic, No Acute Distress - Head Exam Head Exam: NORMAL INSPECTION - Respiratory Exam Respiratory Exam: Decreased Breath Sounds - Cardiovascular Exam Cardiovascular Exam: +S1, +S2 - GI/Abdominal Exam GI & Abdominal Exam: Soft. absent: Tenderness Assessment and Plan - Assessment and Plan (Free Text) Plan: Assessment Sepsis secondary to Pelvic abscess, probably related to the patient's Crohn's disease, S/P exploratory laparotomy, diverting colostomy and surgical drainage of the abscess POD POD #2; S/P CT-guided drainage POD #7, growing ESBL- producing multidrug-resistant E. coli asthma history of pneumonia eczema history of psoriasis anxiety history of depression bipolar disorder history of alcohol abuse history of right hemicolectomy history of perirectal abscess Plan continue Merrem and will continue to monitor clinically; will continue to monitor fever curve and amount of abdominal drainage
[2016-12-09] MEDS: Simethicone 80 mg Chewtab PO PRN (17:12)
[2016-12-10] MEDS: Oxycodone/Acetaminophen 5/325 mg Tab PO PRN ×3 (00:28→08:13)
[2016-12-10] MEDS: Hydrocortisone-Pramoxine 1%-1% Foam(10 gm) TOP SCH ×4 (04:59→20:26)
[2016-12-10 07:10] LABS: ADD MANUAL DIFF? NO
[2016-12-10 07:17] LABS: BASO # 0.02 K/mm3 (0.0-2.0); BASO % 0.3 % (0.0-3.0); EOS # 0.5 (0.0-0.7); EOS % 6.4 % (1.5-5.0); GRAN # 5.72 (1.4-6.5); GRAN % 71.8 % (50.0-68.0); LYMPH # 1.1 (1.2-3.4); LYMPH % 13.3 % (22.0-35.0); MEAN CELL VOLUME 85.7 fL (80.0-105.0); MEAN CORPUSCULAR HEMOGLOBIN 27.6 pg (25.0-35.0); MEAN CORPUSCULAR HGB CONC 32.2 g/dl (31.0-37.0); MEAN PLATELET VOLUME 9.7 fl (7.0-11.0); MONO # 0.7 (0.1-0.6); MONO % 8.2 % (1.0-6.0); PLATELET COUNT 512 10^3/uL (120.0-450.0); RED CELL DISTRIBUTION WIDTH 16.1 % (11.5-14.5)
[2016-12-10] MEDS: Dextrose 5%/0.9% NS 1,000 ML IV SCH (08:04)
[2016-12-10] MEDS: Meropenem 1g/NS 100mL IVPB 100 ML IVPB SCH ×2 (09:41→19:05)
[2016-12-10] MEDS ORDERED: oxyCODONE 15 mg Immediate Release Tab PO PRN (10:09)
[2016-12-10] MEDS: Hydrocortisone 1% Cream (30 GM) TOP SCH ×2 (10:10→20:06)
[2016-12-10] MEDS ORDERED: HYDROmorphone 0.5 mg/0.5 ml ISec IVP STA (10:12)
--- NOTE | 2016-12-10 11:59 | CP.PCM.PN ---
<Josiah Will - Last Filed: 12/10/16 13:15> Subjective - Date & Time of Evaluation Date of Evaluation: 12/10/16 Time of Evaluation: 07:05 - Subjective Subjective: PGY-1 Medicine Progress note for Dr. Kincaid Pt seen and examined at bedside. No acute event overnight. She is POD #3 s/p exploratory laparotomy, perirectal abscess I&D, removal of phlegmon, diverting colostomy. Patient has abdominal pain still. Patient's medication list was confirmed by pharmacy and was started on home pain medications. Denied fever/ chills, cp, sob, palpitations, nausea, vomiting, diarrhea, incontinence. Objective - Vital Signs/Intake and Output Vital Signs (last 24 hours): Temp Pulse Resp BP Pulse Ox 98.5 F 64 18 122/76 97 12/10/16 07:21 12/10/16 07:21 12/10/16 07:21 12/10/16 07:21 12/10/16 07:21 Intake and Output: 12/10/16 12/10/16 06:59 18:59 Intake Total 120 Output Total 1600 Balance -1480 - Medications Medications: Current Medications Acetaminophen (Tylenol 325mg Tab) 650 mg PO Q6H PRN PRN Reason: Pain, moderate (4-7) Last Admin: 12/08/16 20:36 Dose: 650 mg Al Hydrox/Mg Hydrox/Simethicone (Maalox Plus 30 Ml) 30 ml PO DAILY PRN PRN Reason: Indigestion / Heartburn Clonazepam (Klonopin) 1 mg PO TID [facility] Stop: 12/15/16 18:01 Last Admin: 12/10/16 10:08 Dose: 1 mg Docusate Sodium (Colace) 100 mg PO TID [facility] Last Admin: 12/10/16 09:40 Dose: 100 mg Escitalopram Oxalate (Lexapro) 10 mg PO DAILY [facility] Last Admin: 12/10/16 10:08 Dose: 10 mg Gabapentin (Neurontin) 800 mg PO TID [facility] PRN Reason: Protocol Last Admin: 12/10/16 09:40 Dose: 800 mg Heparin Sodium (Porcine) (Heparin) 5,000 units SC Q12 [facility] PRN Reason: Protocol Last Admin: 12/10/16 09:49 Dose: Not Given Hydrocortisone (Cortizone 1% Cream) 0 gm TOP BID [facility] Last Admin: 12/10/16 10:10 Dose: 1 appl Hydrocortisone/Pramoxine (Proctofoam) 1 gm TOP TID [facility] Last Admin: 12/10/16 09:57 Dose: Not Given Meropenem 1g/NS 100mL IVPB (Meropenem 1g/Ns 100ml Ivpb) 100 mls @ 100 mls/hr IVPB Q8H [facility] Last Admin: 12/10/16 09:41 Dose: 100 mls/hr Ondansetron HCl (Zofran Inj) 4 mg IVP Q8 PRN PRN Reason: Nausea/Vomiting Oxycodone HCl (Oxycodone Immediate Release Tab) 15 mg PO BID PRN PRN Reason: Pain, moderate (4-7) Oxycodone HCl (Oxycontin Extended Release Tab) 60 mg PO Q12 [facility] Pantoprazole Sodium (Protonix Inj) 40 mg IVP DAILY [facility] Last Admin: 12/10/16 09:53 Dose: 40 mg Quetiapine Fumarate (Seroquel) 200 mg PO BID [facility] PRN Reason: Protocol Last Admin: 12/10/16 10:08 Dose: 200 mg Simethicone (Mylicon Chew Tab) 80 mg PO [facility] PRN PRN Reason: GI distress Last Admin: 12/09/16 17:12 Dose: 80 mg Zolpidem Tartrate (Ambien) 5 mg PO [facility] PRN Reason: Protocol Last Admin: 12/10/16 00:34 Dose: 5 mg - Labs Labs: 12/10/16 06:30 12/09/16 05:30 PT 13.4 Seconds (9.9-11.8) H 12/07/16 08:14 INR 1.24 (0.93-1.08) H 12/07/16 08:14 APTT 31.0 Seconds (23.7-30.8) H 12/07/16 08:14 - Constitutional Appears: No Acute Distress - Head Exam Head Exam: ATRAUMATIC, NORMOCEPHALIC - Eye Exam Eye Exam: EOMI, Normal appearance Pupil Exam: PERRL - ENT Exam ENT Exam: Mucous Membranes Moist - Respiratory Exam Respiratory Exam: Clear to Ausculation Bilateral, NORMAL BREATHING PATTERN - Cardiovascular Exam Cardiovascular Exam: REGULAR RHYTHM, +S1, +S2 - GI/Abdominal Exam GI & Abdominal Exam: Guarding (voluntary on deep palpation), Soft, Tenderness, Normal Bowel Sounds. absent: Firm, Rebound Additional comments: colostomy site intact, stoma pink draining brown liquid R ella minimal output, L ella ~20 cc of output - Extremities Exam Extremities Exam: Normal Capillary Refill. absent: Calf Tenderness - Back Exam Back Exam: absent: CVA tenderness (L), paraspinal tenderness - Neurological Exam Neurological Exam: Alert, Awake, CN II-XII Intact, Oriented x3 - Psychiatric Exam Psychiatric exam: Normal Affect, Normal Mood - Skin Skin Exam: Dry, Intact, Normal Color, Warm Assessment and Plan - Assessment and Plan (Free Text) Plan: 51yo F with PMHx of Crohn's disease, perirectal abscess, Bipolar disorder, Drug abuse, Opiate dependence and non-compliance with follow up here for evaluation of abdominal pain. 1. Abd Pain CT Abd/Pelvis - evidence of pelvic cyst w/lymphadenopathy. Perirectal abscess. Diffuse constipation (see full report) Failed IR perirectal abscess drainage 3 Cultures growing ESBL Contact precautions ID following, Dr. Mcneill, help appreciated Continue Ertapenem, Surgery consulted, Dr. Marti, help appreciated s/p perirectal abscess I&D POD #5 s/p perirectal abscess i&D, removal of phlegmon, diverting colostomy on POD # 3 Pain management as per surgery Oxycodone 15 mg PO BID PRN Oxycontin 60 mg PO Q12H 2. Hx of Bipolar disorder Continue home meds Psych eval requested 4. Hx of drug abuse monitor for withdrawal Chronic opioid use/abuse. ?illicit drug use in the hospital overnight on 12/06 Cessation counseling 5. PPx Protonix 40mg IV Daily Incentive Spirometer SCDs <Mari Kincaid B - Last Filed: 12/11/16 16:14> Objective - Vital Signs/Intake and Output Vital Signs (last 24 hours): Temp Pulse Resp BP Pulse Ox 98.5 F 64 18 122/76 97 12/10/16 07:21 12/10/16 07:21 12/10/16 07:21 12/10/16 07:21 12/10/16 07:21 Intake and Output: 12/10/16 12/10/16 06:59 18:59 Intake Total 120 380 Output Total 1600 Balance -1480 380 - Medications Medications: Current Medications Acetaminophen (Tylenol 325mg Tab) 650 mg PO Q6H PRN PRN Reason: Pain, moderate (4-7) Last Admin: 12/08/16 20:36 Dose: 650 mg Al Hydrox/Mg Hydrox/Simethicone (Maalox Plus 30 Ml) 30 ml PO DAILY PRN PRN Reason: Indigestion / Heartburn Clonazepam (Klonopin) 1 mg PO TID [facility] Stop: 12/15/16 18:01 Last Admin: 12/10/16 13:04 Dose: Not Given Docusate Sodium (Colace) 100 mg PO TID [facility] Last Admin: 12/10/16 15:19 Dose: 100 mg Escitalopram Oxalate (Lexapro) 10 mg PO DAILY [facility] Last Admin: 12/10/16 10:08 Dose: 10 mg Gabapentin (Neurontin) 800 mg PO TID [facility] PRN Reason: Protocol Last Admin: 12/10/16 14:00 Dose: Not Given Heparin Sodium (Porcine) (Heparin) 5,000 units SC Q12 [facility] PRN Reason: Protocol Last Admin: 12/10/16 09:49 Dose: Not Given Hydrocortisone (Cortizone 1% Cream) 0 gm TOP BID [facility] Last Admin: 12/10/16 10:10 Dose: 1 appl Hydrocortisone/Pramoxine (Proctofoam) 1 gm TOP TID [facility] Last Admin: 12/10/16 15:16 Dose: Not Given Meropenem 1g/NS 100mL IVPB (Meropenem 1g/Ns 100ml Ivpb) 100 mls @ 100 mls/hr IVPB Q8H [facility] Last Admin: 12/10/16 09:41 Dose: 100 mls/hr Ondansetron HCl (Zofran Inj) 4 mg IVP Q8 PRN PRN Reason: Nausea/Vomiting Oxycodone HCl (Oxycontin Extended Release Tab) 60 mg PO Q12 [facility] Oxycodone HCl (Oxycodone Immediate Release Tab) 15 mg PO BID PRN PRN Reason: Pain, moderate (4-7) Last Admin: 12/10/16 15:19 Dose: 15 mg Pantoprazole Sodium (Protonix Inj) 40 mg IVP DAILY [facility] Last Admin: 12/10/16 09:53 Dose: 40 mg Quetiapine Fumarate (Seroquel) 200 mg PO BID [facility] PRN Reason: Protocol Last Admin: 12/10/16 10:08 Dose: 200 mg Simethicone (Mylicon Chew Tab) 80 mg PO [facility] PRN PRN Reason: GI distress Last Admin: 12/09/16 17:12 Dose: 80 mg Zolpidem Tartrate (Ambien) 5 mg PO HS [facility] PRN Reason: Protocol Last Admin: 12/10/16 00:34 Dose: 5 mg - Labs Labs: 12/10/16 06:30 12/09/16 05:30 PT 13.4 Seconds (9.9-11.8) H 12/07/16 08:14 INR 1.24 (0.93-1.08) H 12/07/16 08:14 APTT 31.0 Seconds (23.7-30.8) H 12/07/16 08:14 Attending/Attestation - Attestation I have personally seen and examined this patient.: Yes I have fully participated in the care of the patient.: Yes I have reviewed all pertinent clinical information, including history, physical exam and plan: Yes Notes (Text): I have seen and examined patient at bedside. This is 51 year old female with history of Crohn's disease s/p right hemicolectomy, asthma, psoriasis, anxiety, depression, perirectal abscess, Bipolar disorder, Drug abuse, Opiate dependence and non-compliance with follow up here for evaluation of abdominal pain and found to have sepsis secondary to peirectal abscess s/p IR guided drainage and s /p ex lap , removal of phlegmon, diverting colostomy. POD#3. Wound is growing ESBL producing multi drug resistant E. coli now on ertapenem. Patient was on oxycodone. but was complaining that pain was not controlled. She informed us that she has been taking oxycodone 60 q12 and 30 q12 prn. We called [facility] and confirmed that. Pain medications changed to her home meds. Today I got a call from pathologist who informed that OR sample showed mucinous adenocarcinoma. Will discuss with the patient tomorrow about this. Will consult [facility]. Upon discharge patient will follow up with Dr Chung. Dr Mari Kincaid
--- NOTE | 2016-12-10 12:55 | CP.PCM.PN ---
<LaranehemiasEvan - Last Filed: 12/10/16 13:00> Subjective - Date & Time of Evaluation Date of Evaluation: 12/10/16 Time of Evaluation: 12:51 - Subjective Subjective: Surgery: Dr. Marti Pt seen and examined. Pain improved. Tolerating CLD, would like to eat more. No F/C. No N/V. Has some gas discomfort. Has been ambulating. Objective - Vital Signs/Intake and Output Vital Signs (last 24 hours): Temp Pulse Resp BP Pulse Ox 98.5 F 64 18 122/76 97 12/10/16 07:21 12/10/16 07:21 12/10/16 07:21 12/10/16 07:21 12/10/16 07:21 Intake and Output: 12/10/16 12/10/16 06:59 18:59 Intake Total 120 Output Total 1600 Balance -1480 - Medications Medications: Current Medications Acetaminophen (Tylenol 325mg Tab) 650 mg PO Q6H PRN PRN Reason: Pain, moderate (4-7) Last Admin: 12/08/16 20:36 Dose: 650 mg Al Hydrox/Mg Hydrox/Simethicone (Maalox Plus 30 Ml) 30 ml PO DAILY PRN PRN Reason: Indigestion / Heartburn Clonazepam (Klonopin) 1 mg PO TID [facility] Stop: 12/15/16 18:01 Last Admin: 12/10/16 10:08 Dose: 1 mg Docusate Sodium (Colace) 100 mg PO TID [facility] Last Admin: 12/10/16 09:40 Dose: 100 mg Escitalopram Oxalate (Lexapro) 10 mg PO DAILY [facility] Last Admin: 12/10/16 10:08 Dose: 10 mg Gabapentin (Neurontin) 800 mg PO TID [facility] PRN Reason: Protocol Last Admin: 12/10/16 09:40 Dose: 800 mg Heparin Sodium (Porcine) (Heparin) 5,000 units SC Q12 [facility] PRN Reason: Protocol Last Admin: 12/10/16 09:49 Dose: Not Given Hydrocortisone (Cortizone 1% Cream) 0 gm TOP BID [facility] Last Admin: 12/10/16 10:10 Dose: 1 appl Hydrocortisone/Pramoxine (Proctofoam) 1 gm TOP TID [facility] Last Admin: 12/10/16 09:57 Dose: Not Given Meropenem 1g/NS 100mL IVPB (Meropenem 1g/Ns 100ml Ivpb) 100 mls @ 100 mls/hr IVPB Q8H [facility] Last Admin: 12/10/16 09:41 Dose: 100 mls/hr Ondansetron HCl (Zofran Inj) 4 mg IVP Q8 PRN PRN Reason: Nausea/Vomiting Oxycodone HCl (Oxycodone Immediate Release Tab) 15 mg PO BID PRN PRN Reason: Pain, moderate (4-7) Oxycodone HCl (Oxycontin Extended Release Tab) 60 mg PO Q12 [facility] Pantoprazole Sodium (Protonix Inj) 40 mg IVP DAILY [facility] Last Admin: 12/10/16 09:53 Dose: 40 mg Quetiapine Fumarate (Seroquel) 200 mg PO BID [facility] PRN Reason: Protocol Last Admin: 12/10/16 10:08 Dose: 200 mg Simethicone (Mylicon Chew Tab) 80 mg PO [facility] PRN PRN Reason: GI distress Last Admin: 12/09/16 17:12 Dose: 80 mg Zolpidem Tartrate (Ambien) 5 mg PO [facility] PRN Reason: Protocol Last Admin: 12/10/16 00:34 Dose: 5 mg - Labs Labs: 12/10/16 06:30 12/09/16 05:30 PT 13.4 Seconds (9.9-11.8) H 12/07/16 08:14 INR 1.24 (0.93-1.08) H 12/07/16 08:14 APTT 31.0 Seconds (23.7-30.8) H 12/07/16 08:14 - Constitutional Appears: Non-toxic, No Acute Distress - Head Exam Head Exam: ATRAUMATIC, NORMOCEPHALIC - Eye Exam Eye Exam: EOMI. absent: Scleral icterus - ENT Exam ENT Exam: Mucous Membranes Moist - Neck Exam Neck Exam: Full ROM - Respiratory Exam Respiratory Exam: NORMAL BREATHING PATTERN. absent: Accessory Muscle Use, Respiratory Distress - GI/Abdominal Exam GI & Abdominal Exam: Soft, Tenderness (mild vlad-incisional ). absent: Distended, Firm, Guarding, Rigid, Rebound Additional comments: stoma pink and patent Blakes x 2 w. serosang output - Rectal Exam Additional comments: s/p ID of vlad-rectal abscess, no drainage, no erythema, no odor. Assessment and Plan - Assessment and Plan (Free Text) Assessment: 51F w. perirectal abscess and stricture of rectum s/p diverting end colostomy w / drainage of perirectal phlegmon, POD#3 -Colostomy 50cc/24hr loose brown -R jean claude 20cc/24hr serosang, L jean claude 15cc/24hr serosang -c/w pain management -c/w daily packing -FLD, ADAT -encourage OOB, ambulation, and IS use -GI/DVT prophylaxis -will d/w attending Laraitis PGY2 <Dheeraj Marti - Last Filed: 12/10/16 20:55> Subjective - Date & Time of Evaluation Date of Evaluation: 12/10/16 Time of Evaluation: 11:20 Objective - Vital Signs/Intake and Output Vital Signs (last 24 hours): Temp Pulse Resp BP Pulse Ox 98 F 62 20 108/59 L 98 12/10/16 16:00 12/10/16 16:00 12/10/16 16:00 12/10/16 16:00 12/10/16 16:00 Intake and Output: 12/10/16 12/11/16 18:59 06:59 Intake Total 380 Balance 380 - Medications Medications: Current Medications Acetaminophen (Tylenol 325mg Tab) 650 mg PO Q6H PRN PRN Reason: Pain, moderate (4-7) Last Admin: 12/08/16 20:36 Dose: 650 mg Al Hydrox/Mg Hydrox/Simethicone (Maalox Plus 30 Ml) 30 ml PO DAILY PRN PRN Reason: Indigestion / Heartburn Clonazepam (Klonopin) 1 mg PO TID [facility] Stop: 12/15/16 18:01 Last Admin: 12/10/16 20:05 Dose: 1 mg Docusate Sodium (Colace) 100 mg PO TID [facility] Last Admin: 12/10/16 20:05 Dose: 100 mg Escitalopram Oxalate (Lexapro) 10 mg PO DAILY [facility] Last Admin: 12/10/16 10:08 Dose: 10 mg Gabapentin (Neurontin) 800 mg PO TID [facility] PRN Reason: Protocol Last Admin: 12/10/16 20:04 Dose: 800 mg Heparin Sodium (Porcine) (Heparin) 5,000 units SC Q12 [facility] PRN Reason: Protocol Last Admin: 12/10/16 09:49 Dose: Not Given Hydrocortisone (Cortizone 1% Cream) 0 gm TOP BID [facility] Last Admin: 12/10/16 20:06 Dose: 1 appl Hydrocortisone/Pramoxine (Proctofoam) 1 gm TOP TID [facility] Last Admin: 12/10/16 20:26 Dose: Not Given Meropenem 1g/NS 100mL IVPB (Meropenem 1g/Ns 100ml Ivpb) 100 mls @ 100 mls/hr IVPB Q8H [facility] Last Admin: 12/10/16 19:05 Dose: 100 mls/hr Ondansetron HCl (Zofran Inj) 4 mg IVP Q8 PRN PRN Reason: Nausea/Vomiting Oxycodone HCl (Oxycontin Extended Release Tab) 60 mg PO Q12 [facility] Oxycodone HCl (Oxycodone Immediate Release Tab) 15 mg PO BID PRN PRN Reason: Pain, moderate (4-7) Last Admin: 12/10/16 18:19 Dose: 15 mg Pantoprazole Sodium (Protonix Inj) 40 mg IVP DAILY [facility] Last Admin: 12/10/16 09:53 Dose: 40 mg Quetiapine Fumarate (Seroquel) 200 mg PO BID [facility] PRN Reason: Protocol Last Admin: 12/10/16 20:05 Dose: 200 mg Simethicone (Mylicon Chew Tab) 80 mg PO [facility] PRN PRN Reason: GI distress Last Admin: 12/09/16 17:12 Dose: 80 mg Zolpidem Tartrate (Ambien) 5 mg PO [facility] PRN Reason: Protocol Last Admin: 12/10/16 00:34 Dose: 5 mg - Labs Labs: 12/10/16 06:30 12/09/16 05:30 PT 13.4 Seconds (9.9-11.8) H 12/07/16 08:14 INR 1.24 (0.93-1.08) H 12/07/16 08:14 APTT 31.0 Seconds (23.7-30.8) H 12/07/16 08:14 Assessment and Plan - Assessment and Plan (Free Text) Assessment: I have seen and examined this patient myself. I agree with assessment and plan as per resident's note.
--- NOTE | 2016-12-10 14:48 | CON ---
DATE: 12/10/2016 This is a 51-year-old woman with a complicated history of Crohn's disease for many years. She does n ot really give me a very good history, but she is just postop right now and they had to do a divertin g colostomy. PHYSICAL EXAMINATION: SKIN: No petechiae, no bruises. HEENT: Anicteric. NODES: None palpable in the axillary, cervical, supraclavicular or inguinal regions. LUNGS: Clear at present. The patient is able to lie flat in bed. HEART: S1, S2. BREASTS: No mass. ABDOMEN: She has a drainage tube in there. She has a colostomy. She has a healing scar that seems clean. EXTREMITIES: No edema. CENTRAL NERVOUS SYSTEM: No focal finding. 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 So at this point, I am going to await final pathology reports before I ____ with her. In summary, I do not have a final pathology that shows a carcinoma, so I am going to wait until I get more information to assess her. Adria Briseno MD cc: [id number] TT: 12/10/2016 14:48:07 Confirmation # [id number] Dictation # [id number] tn
[2016-12-10] MEDS: oxyCODONE 15 mg Immediate Release Tab PO PRN ×3 (15:19→22:09)
[2016-12-10] MEDS: oxyCODONE 20 mg ER Tab (oxyCONTIN) PO SCH (21:31)
[2016-12-11] MEDS: Meropenem 1g/NS 100mL IVPB 100 ML IVPB SCH ×3 (00:04→17:51)
[2016-12-11 06:37] LABS: ADD MANUAL DIFF? NO
[2016-12-11 06:51] LABS: BASO # 0.02 K/mm3 (0.0-2.0); BASO % 0.2 % (0.0-3.0); EOS # 0.6 (0.0-0.7); EOS % 6.8 % (1.5-5.0); GRAN # 6.79 (1.4-6.5); HEMATOCRIT 26.7 % (36.0-48.0); LYMPH # 1.2 (1.2-3.4); LYMPH % 12.4 % (22.0-35.0); MEAN CELL VOLUME 85.3 fL (80.0-105.0); MEAN CORPUSCULAR HEMOGLOBIN 27.5 pg (25.0-35.0); MEAN CORPUSCULAR HGB CONC 32.2 g/dl (31.0-37.0); MEAN PLATELET VOLUME 9.6 fl (7.0-11.0); MONO # 0.7 (0.1-0.6); MONO % 7.6 % (1.0-6.0); PLATELET COUNT 519 10^3/uL (120.0-450.0); RED CELL DISTRIBUTION WIDTH 16.2 % (11.5-14.5); WHITE BLOOD COUNT 9.3 10^3/ul (4.5-11.0)
[2016-12-11] MEDS ORDERED: HYDROmorphone 0.5 mg/0.5 ml ISec IVP STA (07:06)
--- NOTE | 2016-12-11 08:31 | CP.PCM.PN ---
Subjective - Date & Time of Evaluation Date of Evaluation: 12/11/16 Time of Evaluation: 06:50 - Subjective Subjective: SURGERY PROGRESS NOTE FOR DR. BOUCHER Pt seen and evaluated at the bedside. Denies abdominal pain. Has not been eating full liquid diet due to being "bored of jello" and wants diet advanced to regular food. Denies N/V. Perirectal abscess packing and dressing changed. Objective - Vital Signs/Intake and Output Vital Signs (last 24 hours): Temp Pulse Resp BP Pulse Ox 98.5 F 59 L 20 103/71 95 12/11/16 07:30 12/11/16 07:30 12/11/16 07:30 12/11/16 07:30 12/11/16 07:30 Intake and Output: 12/11/16 12/11/16 06:59 18:59 Intake Total 360 100 Output Total 40 Balance 360 60 - Medications Medications: Current Medications Acetaminophen (Tylenol 325mg Tab) 650 mg PO Q6H PRN PRN Reason: Pain, moderate (4-7) Last Admin: 12/08/16 20:36 Dose: 650 mg Al Hydrox/Mg Hydrox/Simethicone (Maalox Plus 30 Ml) 30 ml PO DAILY PRN PRN Reason: Indigestion / Heartburn Clonazepam (Klonopin) 1 mg PO TID [facility] Stop: 12/15/16 18:01 Last Admin: 12/10/16 20:05 Dose: 1 mg Docusate Sodium (Colace) 100 mg PO TID [facility] Last Admin: 12/10/16 20:05 Dose: 100 mg Escitalopram Oxalate (Lexapro) 10 mg PO DAILY [facility] Last Admin: 12/10/16 10:08 Dose: 10 mg Gabapentin (Neurontin) 800 mg PO TID [facility] PRN Reason: Protocol Last Admin: 12/10/16 20:04 Dose: 800 mg Heparin Sodium (Porcine) (Heparin) 5,000 units SC Q12 [facility] PRN Reason: Protocol Last Admin: 12/10/16 22:10 Dose: 5,000 units Hydrocortisone (Cortizone 1% Cream) 0 gm TOP BID [facility] Last Admin: 12/10/16 20:06 Dose: 1 appl Hydrocortisone/Pramoxine (Proctofoam) 1 gm TOP TID [facility] Last Admin: 12/10/16 20:26 Dose: Not Given Meropenem 1g/NS 100mL IVPB (Meropenem 1g/Ns 100ml Ivpb) 100 mls @ 100 mls/hr IVPB Q8H [facility] Last Admin: 12/11/16 00:04 Dose: 100 mls/hr Ondansetron HCl (Zofran Inj) 4 mg IVP Q8 PRN PRN Reason: Nausea/Vomiting Oxycodone HCl (Oxycontin Extended Release Tab) 60 mg PO Q12 [facility] Last Admin: 12/10/16 21:31 Dose: 60 mg Oxycodone HCl (Oxycodone Immediate Release Tab) 15 mg PO BID PRN PRN Reason: Pain, moderate (4-7) Last Admin: 12/10/16 22:09 Dose: 15 mg Pantoprazole Sodium (Protonix Inj) 40 mg IVP DAILY [facility] Last Admin: 12/10/16 09:53 Dose: 40 mg Quetiapine Fumarate (Seroquel) 200 mg PO BID [facility] PRN Reason: Protocol Last Admin: 12/10/16 20:05 Dose: 200 mg Simethicone (Mylicon Chew Tab) 80 mg PO HS PRN PRN Reason: GI distress Last Admin: 12/09/16 17:12 Dose: 80 mg Zolpidem Tartrate (Ambien) 5 mg PO [facility] PRN Reason: Protocol Last Admin: 12/10/16 22:09 Dose: 5 mg - Labs Labs: 12/11/16 06:20 12/09/16 05:30 PT 13.4 Seconds (9.9-11.8) H 12/07/16 08:14 INR 1.24 (0.93-1.08) H 12/07/16 08:14 APTT 31.0 Seconds (23.7-30.8) H 12/07/16 08:14 - Additional Findings Additional findings: - Constitutional Appears: Non-toxic, No Acute Distress - Head Exam Head Exam: ATRAUMATIC, NORMOCEPHALIC - Eye Exam Eye Exam: EOMI. absent: Scleral icterus - ENT Exam ENT Exam: Mucous Membranes Moist - Neck Exam Neck Exam: Full ROM - Respiratory Exam Respiratory Exam: NORMAL BREATHING PATTERN. absent: Accessory Muscle Use, Respiratory Distress - GI/Abdominal Exam GI & Abdominal Exam: Soft, Mild R abdominal Tenderness (vlad-incisional). absent: Distended, Firm, Guarding, Rigid, Rebound Additional comments: stoma pink and patent Blakes x 2 w. serosang output Alejandro in place - Rectal Exam Additional comments: s/p ID of vlad-rectal abscess, improving. c/d/i. Assessment and Plan - Assessment and Plan (Free Text) Plan: 51F w. perirectal abscess and stricture of rectum s/p diverting end colostomy w / drainage of perirectal phlegmon, POD#4 -Colostomy loose brown -R jean claude 20cc/24hr serosang, L jean claude 20cc/24hr serosang -will remove drain that is draining from abdomen -c/w pain management -c/w daily packing -regular diet -encourage OOB, ambulation, and IS use -GI/DVT prophylaxis -further recs as per attending Nichol PGY1
[2016-12-11] MEDS: Hydrocortisone-Pramoxine 1%-1% Foam(10 gm) TOP SCH ×3 (09:55→18:36)
[2016-12-11 10:06] LABS: ALKALINE PHOSPHATASE 88 U/L (38-133); ALT/SGPT 18 U/L (7-56); AST/SGOT 52 U/L (15-39); BILIRUBIN,TOTAL 0.2 mg/dL (0.2-1.3); BLOOD UREA NITROGEN 3 mg/dL (7-21); CALCIUM 8.4 mg/dL (8.4-10.5); CARBON DIOXIDE 30 mmol/L (21-33); CHLORIDE 104 mmol/L (95-110); GFR AFRICAN-AMERICAN > 60; GLUCOSE,RANDOM 69 mg/dL (70-110); POTASSIUM 3.4 mmol/L (3.6-5.0); SODIUM 140 mmol/L (132-148); TOTAL PROTEIN 5.2 g/dL (5.8-8.3)
[2016-12-11 10:09] LABS: ALB/GLOB RATIO 0.6 (1.1-1.8)
[2016-12-11] MEDS: oxyCODONE 20 mg ER Tab (oxyCONTIN) PO SCH ×2 (10:48→22:40)
[2016-12-11] MEDS: Hydrocortisone 1% Cream (30 GM) TOP SCH ×2 (11:36→18:36)
--- NOTE | 2016-12-11 13:03 | CP.PCM.PN ---
<AnanthchristoferJosiah fields - Last Filed: 12/11/16 13:54> Subjective - Date & Time of Evaluation Date of Evaluation: 12/11/16 Time of Evaluation: 07:15 - Subjective Subjective: PGY-1 Medicine Progress note for Dr. Kincaid Pt seen and examined at bedside. No acute event overnight. She is POD #4 s/p exploratory laparotomy, perirectal abscess I&D, removal of phlegmon, diverting colostomy. Patient has abdominal pain in RLQ. Patient's was started on home pain medications and stated that this is not adequately controlling her pain. Denied fever/chills, cp, sob, palpitations, nausea, vomiting, diarrhea, incontinence. Objective - Vital Signs/Intake and Output Vital Signs (last 24 hours): Temp Pulse Resp BP Pulse Ox 98.7 F 59 L 20 103/71 95 12/11/16 08:00 12/11/16 08:00 12/11/16 08:00 12/11/16 08:00 12/11/16 08:00 Intake and Output: 12/11/16 12/11/16 06:59 18:59 Intake Total 360 100 Output Total 40 Balance 360 60 - Medications Medications: Current Medications Acetaminophen (Tylenol 325mg Tab) 650 mg PO Q6H PRN PRN Reason: Pain, moderate (4-7) Last Admin: 12/08/16 20:36 Dose: 650 mg Al Hydrox/Mg Hydrox/Simethicone (Maalox Plus 30 Ml) 30 ml PO DAILY PRN PRN Reason: Indigestion / Heartburn Clonazepam (Klonopin) 1 mg PO TID [facility] Stop: 12/15/16 18:01 Last Admin: 12/11/16 11:31 Dose: 1 mg Docusate Sodium (Colace) 100 mg PO TID [facility] Last Admin: 12/11/16 11:31 Dose: 100 mg Escitalopram Oxalate (Lexapro) 10 mg PO DAILY [facility] Last Admin: 12/11/16 11:30 Dose: 10 mg Gabapentin (Neurontin) 800 mg PO TID [facility] PRN Reason: Protocol Last Admin: 12/11/16 11:35 Dose: 800 mg Heparin Sodium (Porcine) (Heparin) 5,000 units SC Q12 [facility] PRN Reason: Protocol Last Admin: 12/11/16 11:43 Dose: Not Given Hydrocortisone (Cortizone 1% Cream) 0 gm TOP BID [facility] Last Admin: 12/11/16 11:36 Dose: 1 appl Hydrocortisone/Pramoxine (Proctofoam) 1 gm TOP TID [facility] Last Admin: 12/10/16 20:26 Dose: Not Given Meropenem 1g/NS 100mL IVPB (Meropenem 1g/Ns 100ml Ivpb) 100 mls @ 100 mls/hr IVPB Q8H [facility] Last Admin: 12/11/16 00:04 Dose: 100 mls/hr Ondansetron HCl (Zofran Inj) 4 mg IVP Q8 PRN PRN Reason: Nausea/Vomiting Oxycodone HCl (Oxycontin Extended Release Tab) 60 mg PO Q12 [facility] Last Admin: 12/11/16 10:48 Dose: 60 mg Oxycodone HCl (Oxycodone Immediate Release Tab) 5 mg PO Q4 PRN PRN Reason: Pain, severe (8-10) Pantoprazole Sodium (Protonix Inj) 40 mg IVP DAILY [facility] Last Admin: 12/11/16 11:30 Dose: 40 mg Quetiapine Fumarate (Seroquel) 200 mg PO BID [facility] PRN Reason: Protocol Last Admin: 12/11/16 11:36 Dose: 200 mg Simethicone (Mylicon Chew Tab) 80 mg PO [facility] PRN PRN Reason: GI distress Last Admin: 12/09/16 17:12 Dose: 80 mg Zolpidem Tartrate (Ambien) 5 mg PO [facility] PRN Reason: Protocol Last Admin: 12/10/16 22:09 Dose: 5 mg - Labs Labs: 12/11/16 06:20 12/11/16 07:00 PT 13.4 Seconds (9.9-11.8) H 12/07/16 08:14 INR 1.24 (0.93-1.08) H 12/07/16 08:14 APTT 31.0 Seconds (23.7-30.8) H 12/07/16 08:14 - Constitutional Appears: In Acute Distress (crying, distraught) - Head Exam Head Exam: ATRAUMATIC, NORMOCEPHALIC - Eye Exam Eye Exam: EOMI, Normal appearance Pupil Exam: PERRL - ENT Exam ENT Exam: Mucous Membranes Moist - Respiratory Exam Respiratory Exam: Clear to Ausculation Bilateral, NORMAL BREATHING PATTERN - Cardiovascular Exam Cardiovascular Exam: REGULAR RHYTHM, +S1, +S2 - GI/Abdominal Exam GI & Abdominal Exam: Soft, Tenderness, Normal Bowel Sounds. absent: Distended, Firm, Guarding, Rebound Additional comments: colostomy site intact, stoma pink with freshly changed bag R ella minimal output, L ella ~20 cc of output - Extremities Exam Extremities Exam: Normal Capillary Refill. absent: Calf Tenderness, Pedal Edema , Tenderness - Back Exam Back Exam: absent: CVA tenderness (L), CVA tenderness (R) - Neurological Exam Neurological Exam: Alert, Awake, CN II-XII Intact, Oriented x3 - Psychiatric Exam Psychiatric exam: Agitated - Skin Skin Exam: Dry, Intact, Normal Color, Warm Assessment and Plan - Assessment and Plan (Free Text) Plan: 51yo F with PMHx of Crohn's disease, perirectal abscess, Bipolar disorder, Drug abuse, Opiate dependence and non-compliance with follow up here for evaluation of abdominal pain. 1. Abd Pain CT Abd/Pelvis - evidence of pelvic cyst w/lymphadenopathy. Perirectal abscess. Diffuse constipation (see full report) IR perirectal abscess drainage 12/[address] Metcalf Cultures growing ESBL Contact precautions ID following, Dr. Mcneill, help appreciated Continue Meropenam 1 gm IVPB Q8H Surgery consulted, Dr. Marti, help appreciated s/p perirectal abscess I&D POD #6 s/p perirectal abscess i&D, removal of phlegmon, diverting colostomy on POD # 4 Pathology report: abscess specimen sent for immunohistochemistry to r/o neoplasm Heme/Onc consult, Dr. Bryant, help appreciated Oxycodone 5 mg PO Q4H PRN Oxycontin 60 mg PO Q12H Gabapentin 800 mg PO TID 2. Hx of Bipolar disorder Continue home meds Psych eval requested 4. Hx of drug abuse monitor for withdrawal Chronic opioid use/abuse. ?illicit drug use in the hospital overnight on 12/06 Cessation counseling 5. PPx Protonix 40mg IV Daily Incentive Spirometer SCDs <Mari Kincaid - Last Filed: 12/11/16 16:31> Objective - Vital Signs/Intake and Output Vital Signs (last 24 hours): Temp Pulse Resp BP Pulse Ox 98.7 F 59 L 20 103/71 95 12/11/16 08:00 12/11/16 08:00 12/11/16 08:00 12/11/16 08:00 12/11/16 08:00 Intake and Output: 12/11/16 12/11/16 06:59 18:59 Intake Total 360 380 Output Total 40 Balance 360 340 - Medications Medications: Current Medications Acetaminophen (Tylenol 325mg Tab) 650 mg PO Q6H PRN PRN Reason: Pain, moderate (4-7) Last Admin: 12/08/16 20:36 Dose: 650 mg Al Hydrox/Mg Hydrox/Simethicone (Maalox Plus 30 Ml) 30 ml PO DAILY PRN PRN Reason: Indigestion / Heartburn Clonazepam (Klonopin) 1 mg PO TID [facility] Stop: 12/15/16 18:01 Last Admin: 12/11/16 15:01 Dose: 1 mg Docusate Sodium (Colace) 100 mg PO TID [facility] Last Admin: 12/11/16 15:01 Dose: 100 mg Escitalopram Oxalate (Lexapro) 10 mg PO DAILY [facility] Last Admin: 12/11/16 11:30 Dose: 10 mg Gabapentin (Neurontin) 800 mg PO TID [facility] PRN Reason: Protocol Last Admin: 12/11/16 15:01 Dose: 800 mg Heparin Sodium (Porcine) (Heparin) 5,000 units SC Q12 [facility] PRN Reason: Protocol Last Admin: 12/11/16 11:43 Dose: Not Given Hydrocortisone (Cortizone 1% Cream) 0 gm TOP BID [facility] Last Admin: 12/11/16 11:36 Dose: 1 appl Hydrocortisone/Pramoxine (Proctofoam) 1 gm TOP TID [facility] Last Admin: 12/10/16 20:26 Dose: Not Given Meropenem 1g/NS 100mL IVPB (Meropenem 1g/Ns 100ml Ivpb) 100 mls @ 100 mls/hr IVPB Q8H [facility] Last Admin: 12/11/16 00:04 Dose: 100 mls/hr Ondansetron HCl (Zofran Inj) 4 mg IVP Q8 PRN PRN Reason: Nausea/Vomiting Oxycodone HCl (Oxycontin Extended Release Tab) 60 mg PO Q12 [facility] Last Admin: 12/11/16 10:48 Dose: 60 mg Oxycodone HCl (Oxycodone Immediate Release Tab) 5 mg PO Q4 PRN PRN Reason: Pain, severe (8-10) Last Admin: 12/11/16 13:12 Dose: 5 mg Pantoprazole Sodium (Protonix Inj) 40 mg IVP DAILY [facility] Last Admin: 12/11/16 11:30 Dose: 40 mg Quetiapine Fumarate (Seroquel) 200 mg PO BID [facility] PRN Reason: Protocol Last Admin: 12/11/16 11:36 Dose: 200 mg Simethicone (Mylicon Chew Tab) 80 mg PO [facility] PRN PRN Reason: GI distress Last Admin: 12/09/16 17:12 Dose: 80 mg Zolpidem Tartrate (Ambien) 5 mg PO HS [facility] PRN Reason: Protocol Last Admin: 12/10/16 22:09 Dose: 5 mg - Labs Labs: 12/11/16 06:20 12/11/16 07:00 PT 13.4 Seconds (9.9-11.8) H 12/07/16 08:14 INR 1.24 (0.93-1.08) H 12/07/16 08:14 APTT 31.0 Seconds (23.7-30.8) H 12/07/16 08:14 Attending/Attestation - Attestation I have personally seen and examined this patient.: Yes I have fully participated in the care of the patient.: Yes I have reviewed all pertinent clinical information, including history, physical exam and plan: Yes Notes (Text): I have seen and examined patient at bedside. This is 51 year old female with history of Crohn's disease s/p right hemicolectomy, asthma, psoriasis, anxiety, depression, perirectal abscess, Bipolar disorder, Drug abuse, Opiate dependence and non-compliance with follow up here for evaluation of abdominal pain and found to have sepsis secondary to peirectal abscess s/p IR guided drainage and s /p ex lap , removal of phlegmon, diverting colostomy. POD#3. Wound is growing ESBL producing multi drug resistant E. coli now on ertapenem. Patient is complaining of pain. Pain meds were adjusted today. 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 Source unknown. Discussed with Dr Briseno who saw the patient yesterday and plan on discussing with the patient once special staining comes back from pathology which will be sometime next week. Plan for PET scan in [address] Dr Mari Kincaid
[2016-12-11] MEDS: oxyCODONE 5 mg Immediate Release Tab PO PRN ×3 (13:12→22:40)
--- NOTE | 2016-12-11 17:05 | CP.PCM.PN ---
Subjective - Date & Time of Evaluation Date of Evaluation: 12/11/16 Time of Evaluation: 09:40 - Subjective Subjective: Anxious about the bed and the drain in her abdomen. Objective - Vital Signs/Intake and Output Vital Signs (last 24 hours): Temp Pulse Resp BP Pulse Ox 98.7 F 59 L 20 103/71 95 12/11/16 08:00 12/11/16 08:00 12/11/16 08:00 12/11/16 08:00 12/11/16 08:00 Intake and Output: 12/11/16 12/11/16 06:59 18:59 Intake Total 360 100 Output Total 40 Balance 360 60 - Medications Medications: Current Medications Acetaminophen (Tylenol 325mg Tab) 650 mg PO Q6H PRN PRN Reason: Pain, moderate (4-7) Last Admin: 12/08/16 20:36 Dose: 650 mg Al Hydrox/Mg Hydrox/Simethicone (Maalox Plus 30 Ml) 30 ml PO DAILY PRN PRN Reason: Indigestion / Heartburn Clonazepam (Klonopin) 1 mg PO TID [facility] Stop: 12/15/16 18:01 Last Admin: 12/10/16 20:05 Dose: 1 mg Docusate Sodium (Colace) 100 mg PO TID [facility] Last Admin: 12/10/16 20:05 Dose: 100 mg Escitalopram Oxalate (Lexapro) 10 mg PO DAILY [facility] Last Admin: 12/10/16 10:08 Dose: 10 mg Gabapentin (Neurontin) 800 mg PO TID [facility] PRN Reason: Protocol Last Admin: 12/10/16 20:04 Dose: 800 mg Heparin Sodium (Porcine) (Heparin) 5,000 units SC Q12 [facility] PRN Reason: Protocol Last Admin: 12/10/16 22:10 Dose: 5,000 units Hydrocortisone (Cortizone 1% Cream) 0 gm TOP BID [facility] Last Admin: 12/10/16 20:06 Dose: 1 appl Hydrocortisone/Pramoxine (Proctofoam) 1 gm TOP TID [facility] Last Admin: 12/10/16 20:26 Dose: Not Given Meropenem 1g/NS 100mL IVPB (Meropenem 1g/Ns 100ml Ivpb) 100 mls @ 100 mls/hr IVPB Q8H [facility] Last Admin: 12/11/16 00:04 Dose: 100 mls/hr Ondansetron HCl (Zofran Inj) 4 mg IVP Q8 PRN PRN Reason: Nausea/Vomiting Oxycodone HCl (Oxycontin Extended Release Tab) 60 mg PO Q12 [facility] Last Admin: 12/10/16 21:31 Dose: 60 mg Oxycodone HCl (Oxycodone Immediate Release Tab) 15 mg PO BID PRN PRN Reason: Pain, moderate (4-7) Last Admin: 12/10/16 22:09 Dose: 15 mg Pantoprazole Sodium (Protonix Inj) 40 mg IVP DAILY [facility] Last Admin: 12/10/16 09:53 Dose: 40 mg Quetiapine Fumarate (Seroquel) 200 mg PO BID [facility] PRN Reason: Protocol Last Admin: 12/10/16 20:05 Dose: 200 mg Simethicone (Mylicon Chew Tab) 80 mg PO [facility] PRN PRN Reason: GI distress Last Admin: 12/09/16 17:12 Dose: 80 mg Zolpidem Tartrate (Ambien) 5 mg PO HS [facility] PRN Reason: Protocol Last Admin: 12/10/16 22:09 Dose: 5 mg - Labs Labs: 12/11/16 06:20 12/09/16 05:30 PT 13.4 Seconds (9.9-11.8) H 12/07/16 08:14 INR 1.24 (0.93-1.08) H 12/07/16 08:14 APTT 31.0 Seconds (23.7-30.8) H 12/07/16 08:14 - Constitutional Appears: Non-toxic, No Acute Distress - Head Exam Head Exam: NORMAL INSPECTION - Respiratory Exam Respiratory Exam: Decreased Breath Sounds - Cardiovascular Exam Cardiovascular Exam: +S1, +S2 - GI/Abdominal Exam GI & Abdominal Exam: Soft. absent: Tenderness Additional comments: abdominal drain in place Assessment and Plan - Assessment and Plan (Free Text) Plan: Assessment Sepsis secondary to Pelvic abscess, probably related to the patient's Crohn's disease, S/P exploratory laparotomy, diverting colostomy and surgical drainage of the abscess POD POD #3; S/P CT-guided drainage POD #8, growing ESBL- producing multidrug-resistant E. coli; S/P drainage of perirectal abscess 3 days ago with note of mucinous adenocarcinoma asthma history of pneumonia eczema history of psoriasis anxiety history of depression bipolar disorder history of alcohol abuse history of right hemicolectomy history of perirectal abscess Plan continue Merrem and will continue to monitor clinically; will continue to monitor fever curve and amount of abdominal drainage; can d/c antibiotics once drain is removed
[2016-12-12] MEDS: Meropenem 1g/NS 100mL IVPB 100 ML IVPB SCH ×3 (00:01→16:29)
[2016-12-12] MEDS: oxyCODONE 5 mg Immediate Release Tab PO PRN ×4 (03:39→19:19)
[2016-12-12] MEDS ORDERED: HYDROmorphone 0.5 mg/0.5 ml ISec IVP STA (06:56)
--- NOTE | 2016-12-12 08:39 | CP.PCM.PN ---
Subjective - Date & Time of Evaluation Date of Evaluation: 12/12/16 Time of Evaluation: 07:20 - Subjective Subjective: SURGERY PROGRESS NOTE FOR DR. BOUCHER Pt seen and evaluated at the bedside. Denies abdominal pain. Denies N/V. Pt refused changing of perirectal abscess packing and dressing today. Objective - Vital Signs/Intake and Output Vital Signs (last 24 hours): Temp Pulse Resp BP Pulse Ox 98.6 F 64 18 87/53 L 96 12/11/16 16:00 12/11/16 16:00 12/11/16 16:00 12/11/16 16:00 12/11/16 16:00 Intake and Output: 12/12/16 12/12/16 06:59 18:59 Intake Total 1710 Balance 1710 - Medications Medications: Current Medications Acetaminophen (Tylenol 325mg Tab) 650 mg PO Q6H PRN PRN Reason: Pain, moderate (4-7) Last Admin: 12/08/16 20:36 Dose: 650 mg Al Hydrox/Mg Hydrox/Simethicone (Maalox Plus 30 Ml) 30 ml PO DAILY PRN PRN Reason: Indigestion / Heartburn Clonazepam (Klonopin) 1 mg PO TID [facility] Stop: 12/15/16 18:01 Last Admin: 12/11/16 17:52 Dose: 1 mg Docusate Sodium (Colace) 100 mg PO TID [facility] Last Admin: 12/11/16 17:52 Dose: 100 mg Escitalopram Oxalate (Lexapro) 10 mg PO DAILY [facility] Last Admin: 12/11/16 11:30 Dose: 10 mg Gabapentin (Neurontin) 800 mg PO TID [facility] PRN Reason: Protocol Last Admin: 12/11/16 17:52 Dose: 800 mg Heparin Sodium (Porcine) (Heparin) 5,000 units SC Q12 [facility] PRN Reason: Protocol Last Admin: 12/11/16 22:43 Dose: 5,000 units Hydrocortisone (Cortizone 1% Cream) 0 gm TOP BID [facility] Last Admin: 12/11/16 18:36 Dose: 1 appl Hydrocortisone/Pramoxine (Proctofoam) 1 gm TOP TID [facility] Last Admin: 12/11/16 18:36 Dose: Not Given Meropenem 1g/NS 100mL IVPB (Meropenem 1g/Ns 100ml Ivpb) 100 mls @ 100 mls/hr IVPB Q8H [facility] Last Admin: 12/12/16 00:01 Dose: 100 mls/hr Ondansetron HCl (Zofran Inj) 4 mg IVP Q8 PRN PRN Reason: Nausea/Vomiting Oxycodone HCl (Oxycontin Extended Release Tab) 60 mg PO Q12 [facility] Last Admin: 12/11/16 22:40 Dose: 60 mg Oxycodone HCl (Oxycodone Immediate Release Tab) 5 mg PO Q4 PRN PRN Reason: Pain, severe (8-10) Last Admin: 12/12/16 03:39 Dose: 5 mg Pantoprazole Sodium (Protonix Inj) 40 mg IVP DAILY [facility] Last Admin: 12/11/16 11:30 Dose: 40 mg Quetiapine Fumarate (Seroquel) 200 mg PO BID [facility] PRN Reason: Protocol Last Admin: 12/11/16 17:53 Dose: 200 mg Simethicone (Mylicon Chew Tab) 80 mg PO [facility] PRN PRN Reason: GI distress Last Admin: 12/09/16 17:12 Dose: 80 mg Zolpidem Tartrate (Ambien) 5 mg PO HS [facility] PRN Reason: Protocol Last Admin: 12/12/16 00:00 Dose: 5 mg - Labs Labs: 12/11/16 06:20 12/11/16 07:00 PT 13.4 Seconds (9.9-11.8) H 12/07/16 08:14 INR 1.24 (0.93-1.08) H 12/07/16 08:14 APTT 31.0 Seconds (23.7-30.8) H 12/07/16 08:14 - Additional Findings Additional findings: - Constitutional Appears: Non-toxic, No Acute Distress - Head Exam Head Exam: NORMOCEPHALIC - Eye Exam Eye Exam: EOMI - ENT Exam ENT Exam: Mucous Membranes Moist - Neck Exam Neck Exam: Full ROM - Respiratory Exam Respiratory Exam: NORMAL BREATHING PATTERN. absent: Accessory Muscle Use, Respiratory Distress - GI/Abdominal Exam GI & Abdominal Exam: Soft, Mild R Tenderness. absent: Distended, Firm, Guarding , Rigid, Rebound Additional comments: stoma pink and patent one jean claude drain w. dark serosangenous output Foss in place - Rectal Exam Additional comments: s/p ID of vlad-rectal abscess Assessment and Plan - Assessment and Plan (Free Text) Plan: 51F w. perirectal abscess and stricture of rectum s/p diverting end colostomy w / drainage of perirectal phlegmon, POD#5 -Colostomy loose brown -Jean Claude draining dark serosangenous fluid -c/w pain management -c/w daily packing -regular diet -encourage OOB, ambulation, and IS use -GI/DVT prophylaxis -further recs as per attending Nichol PGY1
[2016-12-12 08:57] LABS: ADD MANUAL DIFF? NO
--- NOTE | 2016-12-12 08:57 | CP.PCM.PN ---
<AnanthchristoferJosiah fields - Last Filed: 12/12/16 11:40> Subjective - Date & Time of Evaluation Date of Evaluation: 12/12/16 Time of Evaluation: 07:25 - Subjective Subjective: PGY-1 Medicine Progress note for Dr. Kincaid Pt seen and examined at bedside. No acute event overnight. She is POD #5 s/p exploratory laparotomy, perirectal abscess I&D, removal of phlegmon, diverting colostomy. Patient stated that her abdominal pain on right side has improved. Patient's pain medications was adjusted yesterday. Patient participated in PT today and was able to walk with some assistance. Patient tolerating diet. Colostomy is producing soft brown stool. Denied fever/chills, cp, sob, palpitations, nausea, vomiting, diarrhea, incontinence. Objective - Vital Signs/Intake and Output Vital Signs (last 24 hours): Temp Pulse Resp BP Pulse Ox 98.3 F 63 20 104/66 95 12/12/16 08:00 12/12/16 08:00 12/12/16 08:00 12/12/16 08:00 12/12/16 08:00 Intake and Output: 12/12/16 12/12/16 06:59 18:59 Intake Total 1710 Balance 1710 - Medications Medications: Current Medications Acetaminophen (Tylenol 325mg Tab) 650 mg PO Q6H PRN PRN Reason: Pain, moderate (4-7) Last Admin: 12/08/16 20:36 Dose: 650 mg Al Hydrox/Mg Hydrox/Simethicone (Maalox Plus 30 Ml) 30 ml PO DAILY PRN PRN Reason: Indigestion / Heartburn Clonazepam (Klonopin) 1 mg PO TID [facility] Stop: 12/15/16 18:01 Last Admin: 12/11/16 17:52 Dose: 1 mg Docusate Sodium (Colace) 100 mg PO TID [facility] Last Admin: 12/11/16 17:52 Dose: 100 mg Escitalopram Oxalate (Lexapro) 10 mg PO DAILY [facility] Last Admin: 12/11/16 11:30 Dose: 10 mg Gabapentin (Neurontin) 800 mg PO TID [facility] PRN Reason: Protocol Last Admin: 12/11/16 17:52 Dose: 800 mg Heparin Sodium (Porcine) (Heparin) 5,000 units SC Q12 [facility] PRN Reason: Protocol Last Admin: 12/11/16 22:43 Dose: 5,000 units Hydrocortisone (Cortizone 1% Cream) 0 gm TOP BID [facility] Last Admin: 12/11/16 18:36 Dose: 1 appl Hydrocortisone/Pramoxine (Proctofoam) 1 gm TOP TID [facility] Last Admin: 12/11/16 18:36 Dose: Not Given Meropenem 1g/NS 100mL IVPB (Meropenem 1g/Ns 100ml Ivpb) 100 mls @ 100 mls/hr IVPB Q8H [facility] Last Admin: 12/12/16 00:01 Dose: 100 mls/hr Ondansetron HCl (Zofran Inj) 4 mg IVP Q8 PRN PRN Reason: Nausea/Vomiting Oxycodone HCl (Oxycontin Extended Release Tab) 60 mg PO Q12 [facility] Last Admin: 12/11/16 22:40 Dose: 60 mg Oxycodone HCl (Oxycodone Immediate Release Tab) 5 mg PO Q4 PRN PRN Reason: Pain, severe (8-10) Last Admin: 12/12/16 03:39 Dose: 5 mg Pantoprazole Sodium (Protonix Inj) 40 mg IVP DAILY [facility] Last Admin: 12/11/16 11:30 Dose: 40 mg Quetiapine Fumarate (Seroquel) 200 mg PO BID [facility] PRN Reason: Protocol Last Admin: 12/11/16 17:53 Dose: 200 mg Simethicone (Mylicon Chew Tab) 80 mg PO [facility] PRN PRN Reason: GI distress Last Admin: 12/09/16 17:12 Dose: 80 mg Zolpidem Tartrate (Ambien) 5 mg PO [facility] PRN Reason: Protocol Last Admin: 12/12/16 00:00 Dose: 5 mg - Labs Labs: 12/11/16 06:20 12/11/16 07:00 PT 13.4 Seconds (9.9-11.8) H 12/07/16 08:14 INR 1.24 (0.93-1.08) H 12/07/16 08:14 APTT 31.0 Seconds (23.7-30.8) H 12/07/16 08:14 - Constitutional Appears: No Acute Distress - Head Exam Head Exam: ATRAUMATIC, NORMOCEPHALIC - Eye Exam Eye Exam: EOMI, Normal appearance Pupil Exam: PERRL - ENT Exam ENT Exam: Mucous Membranes Moist - Neck Exam Neck Exam: Full ROM, Normal Inspection Additional comments: TLC in place in Right IJ - Respiratory Exam Respiratory Exam: Clear to Ausculation Bilateral, NORMAL BREATHING PATTERN - Cardiovascular Exam Cardiovascular Exam: RRR, +S1, +S2 - GI/Abdominal Exam GI & Abdominal Exam: Soft, Tenderness, Normal Bowel Sounds. absent: Distended, Firm, Guarding, Rebound Additional comments: colostomy site intact, stoma pink with soft brown stool draining R ella minimal output, L ella <10 cc of output Midline incision exposed - clean/dry/intact with no warmth, erythema, or drainage - Extremities Exam Extremities Exam: Normal Capillary Refill. absent: Calf Tenderness, Pedal Edema , Tenderness - Back Exam Back Exam: absent: CVA tenderness (L), CVA tenderness (R) - Neurological Exam Neurological Exam: Alert, Awake, CN II-XII Intact, Normal Gait, Oriented x3 - Psychiatric Exam Psychiatric exam: Normal Affect, Normal Mood - Skin Skin Exam: Dry, Intact, Normal Color, Warm Assessment and Plan - Assessment and Plan (Free Text) Plan: 51yo F with PMHx of Crohn's disease, perirectal abscess, Bipolar disorder, Drug abuse, Opiate dependence and non-compliance with follow up here for evaluation of abdominal pain. 1. Abd Pain CT Abd/Pelvis - evidence of pelvic cyst w/lymphadenopathy. Perirectal abscess. Diffuse constipation (see full report) IR perirectal abscess drainage 3/[address] Metcalf Cultures growing ESBL Contact precautions ID following, Dr. Mcneill, help appreciated Continue Meropenam 1 gm IVPB Q8H Surgery consulted, Dr. Marti, help appreciated s/p perirectal abscess I&D POD #7 s/p perirectal abscess i&D, removal of phlegmon, diverting colostomy on POD # 5 Superficial drain will be removed today while other drain that is draining "abscess" will remain in place Pathology report: abscess specimen sent for immunohistochemistry to r/o neoplasm Heme/Onc consult, Dr. Bryant, help appreciated Oxycodone 5 mg PO Q4H PRN Oxycontin 60 mg PO Q12H Gabapentin 800 mg PO TID 2. Hx of Bipolar disorder Continue home meds Psych eval requested 4. Hx of drug abuse monitor for withdrawal Chronic opioid use/abuse. ?illicit drug use in the hospital overnight on 12/06 Cessation counseling 5. PPx Protonix 40mg IV Daily Incentive Spirometer SCDs PT/OT TLC dressing change today <KincaidMari - Last Filed: 12/12/16 15:35> Objective - Vital Signs/Intake and Output Vital Signs (last 24 hours): Temp Pulse Resp BP Pulse Ox 98.3 F 63 20 104/66 95 12/12/16 08:00 12/12/16 08:00 12/12/16 08:00 12/12/16 08:00 12/12/16 08:00 Intake and Output: 12/12/16 12/12/16 06:59 18:59 Intake Total 1710 660 Balance 1710 660 - Medications Medications: Current Medications Acetaminophen (Tylenol 325mg Tab) 650 mg PO Q6H PRN PRN Reason: Pain, moderate (4-7) Last Admin: 12/08/16 20:36 Dose: 650 mg Al Hydrox/Mg Hydrox/Simethicone (Maalox Plus 30 Ml) 30 ml PO DAILY PRN PRN Reason: Indigestion / Heartburn Clonazepam (Klonopin) 1 mg PO TID [facility] Stop: 12/15/16 18:01 Last Admin: 12/12/16 15:03 Dose: 1 mg Docusate Sodium (Colace) 100 mg PO TID [facility] Last Admin: 12/12/16 14:57 Dose: 100 mg Escitalopram Oxalate (Lexapro) 10 mg PO DAILY [facility] Last Admin: 12/12/16 10:04 Dose: 10 mg Gabapentin (Neurontin) 800 mg PO TID [facility] PRN Reason: Protocol Last Admin: 12/12/16 14:57 Dose: 800 mg Heparin Sodium (Porcine) (Heparin) 5,000 units SC Q12 [facility] PRN Reason: Protocol Last Admin: 12/12/16 10:06 Dose: Not Given Hydrocortisone (Cortizone 1% Cream) 0 gm TOP BID [facility] Last Admin: 12/12/16 10:06 Dose: 1 appl Hydrocortisone/Pramoxine (Proctofoam) 1 gm TOP TID [facility] Last Admin: 12/12/16 15:04 Dose: Not Given Meropenem 1g/NS 100mL IVPB (Meropenem 1g/Ns 100ml Ivpb) 100 mls @ 100 mls/hr IVPB Q8H [facility] Last Admin: 12/12/16 09:04 Dose: 100 mls/hr Ondansetron HCl (Zofran Inj) 4 mg IVP Q8 PRN PRN Reason: Nausea/Vomiting Oxycodone HCl (Oxycontin Extended Release Tab) 60 mg PO Q12 [facility] Last Admin: 12/12/16 10:02 Dose: 60 mg Oxycodone HCl (Oxycodone Immediate Release Tab) 5 mg PO Q4 PRN PRN Reason: Pain, severe (8-10) Last Admin: 12/12/16 14:57 Dose: 5 mg Pantoprazole Sodium (Protonix Inj) 40 mg IVP DAILY [facility] Last Admin: 12/12/16 10:06 Dose: 40 mg Quetiapine Fumarate (Seroquel) 200 mg PO BID [facility] PRN Reason: Protocol Last Admin: 12/12/16 10:04 Dose: 200 mg Simethicone (Mylicon Chew Tab) 80 mg PO [facility] PRN PRN Reason: GI distress Last Admin: 12/09/16 17:12 Dose: 80 mg Zolpidem Tartrate (Ambien) 5 mg PO HS [facility] PRN Reason: Protocol Last Admin: 12/12/16 00:00 Dose: 5 mg - Labs Labs: 12/12/16 08:50 12/12/16 08:50 PT 13.4 Seconds (9.9-11.8) H 12/07/16 08:14 INR 1.24 (0.93-1.08) H 12/07/16 08:14 APTT 31.0 Seconds (23.7-30.8) H 12/07/16 08:14 Attending/Attestation - Attestation I have personally seen and examined this patient.: Yes I have fully participated in the care of the patient.: Yes I have reviewed all pertinent clinical information, including history, physical exam and plan: Yes Notes (Text): I have seen and examined patient at bedside. This is 51 year old female with history of Crohn's disease s/p right hemicolectomy, asthma, psoriasis, anxiety, depression, perirectal abscess, Bipolar disorder, Drug abuse, Opiate dependence and non-compliance with follow up here for evaluation of abdominal pain and found to have sepsis secondary to peirectal abscess s/p IR guided drainage and s /p ex lap, removal of phlegmon, diverting colostomy. Wound is growing ESBL producing multi drug resistant E. coli now on meropenem. As per surgery, plan to emove the drain today. Patient's pain has improved today. 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 Discussed with Dr Briseno. Will consult GI for possible colonoscopy in the future. Plan for PET scan atleast after 3 weeks. Discussed with manufacturing plant controller web application tester Dr Curtis who recommended to consult after PET scan or CT pelvis is done. At this point, patient cannot be started on chemo or RT due to recent surgery. Dr Mari Kincaid
[2016-12-12 08:58] LABS: BASO # 0.02 K/mm3 (0.0-2.0); BASO % 0.2 % (0.0-3.0); EOS # 0.4 (0.0-0.7); EOS % 5.1 % (1.5-5.0); GRAN # 6.28 (1.4-6.5); GRAN % 73.8 % (50.0-68.0); HEMATOCRIT 26.5 % (36.0-48.0); LYMPH # 1.2 (1.2-3.4); LYMPH % 14.5 % (22.0-35.0); MEAN CELL VOLUME 86.3 fL (80.0-105.0); MEAN CORPUSCULAR HGB CONC 32.5 g/dl (31.0-37.0); MEAN PLATELET VOLUME 9.2 fl (7.0-11.0); MONO # 0.5 (0.1-0.6); MONO % 6.4 % (1.0-6.0); PLATELET COUNT 469 10^3/uL (120.0-450.0); RED CELL DISTRIBUTION WIDTH 16.4 % (11.5-14.5); WHITE BLOOD COUNT 8.5 10^3/ul (4.5-11.0)
[2016-12-12 09:09] LABS: ALB/GLOB RATIO 0.6 (1.1-1.8); ALKALINE PHOSPHATASE 79 U/L (38-133); ALT/SGPT 11 U/L (7-56); AST/SGOT 24 U/L (15-39); BILIRUBIN,TOTAL 0.2 mg/dL (0.2-1.3); BLOOD UREA NITROGEN 6 mg/dL (7-21); CALCIUM 8.1 mg/dL (8.4-10.5); CARBON DIOXIDE 31 mmol/L (21-33); CHLORIDE 103 mmol/L (98-107); GFR AFRICAN-AMERICAN > 60; GLUCOSE,RANDOM 115 mg/dL (70-110); POTASSIUM 3.5 mmol/L (3.6-5.0); SODIUM 137 mmol/L (132-148); TOTAL PROTEIN 5.2 g/dL (5.8-8.3)
[2016-12-12] MEDS: oxyCODONE 20 mg ER Tab (oxyCONTIN) PO SCH ×2 (10:02→21:14)
[2016-12-12] MEDS: Hydrocortisone 1% Cream (30 GM) TOP SCH ×2 (10:06→18:11)
[2016-12-12] MEDS: Hydrocortisone-Pramoxine 1%-1% Foam(10 gm) TOP SCH ×3 (10:06→18:12)
--- NOTE | 2016-12-12 14:22 | CP.PCM.PN ---
Subjective - Date & Time of Evaluation Date of Evaluation: 12/12/16 Time of Evaluation: 10:40 - Subjective Subjective: Still complaining of abdominal pain, no fevers overnight. Objective - Vital Signs/Intake and Output Vital Signs (last 24 hours): Temp Pulse Resp BP Pulse Ox 98.3 F 63 20 104/66 95 12/12/16 08:00 12/12/16 08:00 12/12/16 08:00 12/12/16 08:00 12/12/16 08:00 Intake and Output: 12/12/16 12/12/16 06:59 18:59 Intake Total 1710 660 Balance 1710 660 - Medications Medications: Current Medications Acetaminophen (Tylenol 325mg Tab) 650 mg PO Q6H PRN PRN Reason: Pain, moderate (4-7) Last Admin: 12/08/16 20:36 Dose: 650 mg Al Hydrox/Mg Hydrox/Simethicone (Maalox Plus 30 Ml) 30 ml PO DAILY PRN PRN Reason: Indigestion / Heartburn Clonazepam (Klonopin) 1 mg PO TID [facility] Stop: 12/15/16 18:01 Last Admin: 12/12/16 10:05 Dose: 1 mg Docusate Sodium (Colace) 100 mg PO TID [facility] Last Admin: 12/12/16 10:04 Dose: 100 mg Escitalopram Oxalate (Lexapro) 10 mg PO DAILY [facility] Last Admin: 12/12/16 10:04 Dose: 10 mg Gabapentin (Neurontin) 800 mg PO TID [facility] PRN Reason: Protocol Last Admin: 12/12/16 10:04 Dose: 800 mg Heparin Sodium (Porcine) (Heparin) 5,000 units SC Q12 [facility] PRN Reason: Protocol Last Admin: 12/12/16 10:06 Dose: Not Given Hydrocortisone (Cortizone 1% Cream) 0 gm TOP BID [facility] Last Admin: 12/12/16 10:06 Dose: 1 appl Hydrocortisone/Pramoxine (Proctofoam) 1 gm TOP TID [facility] Last Admin: 12/12/16 10:06 Dose: Not Given Meropenem 1g/NS 100mL IVPB (Meropenem 1g/Ns 100ml Ivpb) 100 mls @ 100 mls/hr IVPB Q8H [facility] Last Admin: 12/12/16 09:04 Dose: 100 mls/hr Ondansetron HCl (Zofran Inj) 4 mg IVP Q8 PRN PRN Reason: Nausea/Vomiting Oxycodone HCl (Oxycontin Extended Release Tab) 60 mg PO Q12 [facility] Last Admin: 12/12/16 10:02 Dose: 60 mg Oxycodone HCl (Oxycodone Immediate Release Tab) 5 mg PO Q4 PRN PRN Reason: Pain, severe (8-10) Last Admin: 12/12/16 09:04 Dose: 5 mg Pantoprazole Sodium (Protonix Inj) 40 mg IVP DAILY [facility] Last Admin: 12/12/16 10:06 Dose: 40 mg Quetiapine Fumarate (Seroquel) 200 mg PO BID [facility] PRN Reason: Protocol Last Admin: 12/12/16 10:04 Dose: 200 mg Simethicone (Mylicon Chew Tab) 80 mg PO [facility] PRN PRN Reason: GI distress Last Admin: 12/09/16 17:12 Dose: 80 mg Zolpidem Tartrate (Ambien) 5 mg PO HS [facility] PRN Reason: Protocol Last Admin: 12/12/16 00:00 Dose: 5 mg - Labs Labs: 12/12/16 08:50 12/12/16 08:50 PT 13.4 Seconds (9.9-11.8) H 12/07/16 08:14 INR 1.24 (0.93-1.08) H 12/07/16 08:14 APTT 31.0 Seconds (23.7-30.8) H 12/07/16 08:14 - Constitutional Appears: Non-toxic, No Acute Distress - Head Exam Head Exam: NORMAL INSPECTION - Respiratory Exam Respiratory Exam: Decreased Breath Sounds - Cardiovascular Exam Cardiovascular Exam: +S1, +S2 - GI/Abdominal Exam GI & Abdominal Exam: Soft. absent: Tenderness Additional comments: abdominal drain in place Assessment and Plan - Assessment and Plan (Free Text) Plan: Assessment Sepsis secondary to Pelvic abscess, probably related to the patient's Crohn's disease, S/P exploratory laparotomy, diverting colostomy and surgical drainage of the abscess POD POD #4; S/P CT-guided drainage POD #9, growing ESBL- producing multidrug-resistant E. coli; S/P drainage of perirectal abscess 3 days ago with note of mucinous adenocarcinoma asthma history of pneumonia eczema history of psoriasis anxiety history of depression bipolar disorder history of alcohol abuse history of right hemicolectomy history of perirectal abscess Plan continue Meropenem and will continue to monitor clinically; will continue to monitor fever curve and amount of abdominal drainage; can d/c antibiotics once drain is removed
[2016-12-13] MEDS: Meropenem 1g/NS 100mL IVPB 100 ML IVPB SCH ×4 (00:13→23:53)
[2016-12-13] MEDS: oxyCODONE 5 mg Immediate Release Tab PO PRN ×6 (01:53→20:49)
--- NOTE | 2016-12-13 07:48 | CP.PCM.PN ---
Subjective - Date & Time of Evaluation Date of Evaluation: 12/13/16 Time of Evaluation: 07:45 - Subjective Subjective: SURGERY NOTE FOR DR. BOUCHER 51F seen and examined at bedside. LYNNETTE. Patient has no complaints. Emotional from recent news of neoplasm. Continues to have ostomy output. Denies abdominal surgical sites issues. Tolerating diet, denies N/V/F/C. Objective - Vital Signs/Intake and Output Vital Signs (last 24 hours): Temp Pulse Resp BP Pulse Ox 98.3 F 59 L 18 88/57 L 92 L 12/12/16 16:00 12/12/16 16:00 12/12/16 16:00 12/12/16 16:00 12/12/16 16:00 Intake and Output: 12/13/16 12/13/16 06:59 18:59 Intake Total 1020 Output Total 540 Balance 480 - Medications Medications: Current Medications Acetaminophen (Tylenol 325mg Tab) 650 mg PO Q6H PRN PRN Reason: Pain, moderate (4-7) Last Admin: 12/08/16 20:36 Dose: 650 mg Al Hydrox/Mg Hydrox/Simethicone (Maalox Plus 30 Ml) 30 ml PO DAILY PRN PRN Reason: Indigestion / Heartburn Clonazepam (Klonopin) 1 mg PO TID [facility] Stop: 12/15/16 18:01 Last Admin: 12/12/16 18:10 Dose: 1 mg Docusate Sodium (Colace) 100 mg PO TID [facility] Last Admin: 12/12/16 18:11 Dose: 100 mg Escitalopram Oxalate (Lexapro) 10 mg PO DAILY [facility] Last Admin: 12/12/16 10:04 Dose: 10 mg Gabapentin (Neurontin) 800 mg PO TID [facility] PRN Reason: Protocol Last Admin: 12/12/16 18:10 Dose: 800 mg Heparin Sodium (Porcine) (Heparin) 5,000 units SC Q12 [facility] PRN Reason: Protocol Last Admin: 12/12/16 22:30 Dose: Not Given Hydrocortisone (Cortizone 1% Cream) 0 gm TOP BID [facility] Last Admin: 12/12/16 18:11 Dose: 1 appl Hydrocortisone/Pramoxine (Proctofoam) 1 gm TOP TID [facility] Last Admin: 12/12/16 18:12 Dose: Not Given Meropenem 1g/NS 100mL IVPB (Meropenem 1g/Ns 100ml Ivpb) 100 mls @ 100 mls/hr IVPB Q8H [facility] Last Admin: 12/13/16 00:13 Dose: 100 mls/hr Ondansetron HCl (Zofran Inj) 4 mg IVP Q8 PRN PRN Reason: Nausea/Vomiting Oxycodone HCl (Oxycontin Extended Release Tab) 60 mg PO Q12 [facility] Last Admin: 12/12/16 21:14 Dose: 60 mg Oxycodone HCl (Oxycodone Immediate Release Tab) 5 mg PO Q4 PRN PRN Reason: Pain, severe (8-10) Last Admin: 12/13/16 06:03 Dose: 5 mg Pantoprazole Sodium (Protonix Inj) 40 mg IVP DAILY [facility] Last Admin: 12/12/16 10:06 Dose: 40 mg Quetiapine Fumarate (Seroquel) 200 mg PO BID [facility] PRN Reason: Protocol Last Admin: 12/12/16 18:11 Dose: 200 mg Simethicone (Mylicon Chew Tab) 80 mg PO [facility] PRN PRN Reason: GI distress Last Admin: 12/09/16 17:12 Dose: 80 mg Zolpidem Tartrate (Ambien) 5 mg PO HS [facility] PRN Reason: Protocol Last Admin: 12/13/16 00:20 Dose: Not Given - Labs Labs: 12/12/16 08:50 12/12/16 08:50 PT 13.4 Seconds (9.9-11.8) H 12/07/16 08:14 INR 1.24 (0.93-1.08) H 12/07/16 08:14 APTT 31.0 Seconds (23.7-30.8) H 12/07/16 08:14 - Constitutional Appears: Non-toxic, No Acute Distress - Head Exam Head Exam: ATRAUMATIC - ENT Exam ENT Exam: Mucous Membranes Moist - Respiratory Exam Respiratory Exam: Clear to Ausculation Bilateral, NORMAL BREATHING PATTERN - Cardiovascular Exam Cardiovascular Exam: REGULAR RHYTHM, +S1, +S2 - GI/Abdominal Exam GI & Abdominal Exam: Soft, Tenderness. absent: Distended, Firm, Guarding, Rigid , Rebound Additional comments: - Drain in place with serosang output. anna in place. incision site is CLD. Ostomy has appropriate brown/green stool output. - Neurological Exam Neurological Exam: Alert, Awake - Skin Skin Exam: Dry, Intact, Normal Color, Warm Additional comments: diffuse eczematous rash in LE and abdomen Assessment and Plan - Assessment and Plan (Free Text) Assessment: 51F w. perirectal abscess and stricture of rectum s/p diverting end colostomy w / drainage of perirectal phlegmon, POD#6 - ostomy care - black drain care - c/w pain management - c/w daily packing - regular diet - encourage OOB, ambulation, and IS use - Oncology is following patient - GI/DVT prophylaxis Further recs discuss with Dr. Kaia Coburn, PGY1
[2016-12-13] MEDS: oxyCODONE 20 mg ER Tab (oxyCONTIN) PO SCH ×2 (09:35→22:13)
[2016-12-13] MEDS: Hydrocortisone 1% Cream (30 GM) TOP SCH ×2 (09:39→17:48)
[2016-12-13] MEDS: Hydrocortisone-Pramoxine 1%-1% Foam(10 gm) TOP SCH ×3 (09:41→18:04)
--- NOTE | 2016-12-13 18:06 | CP.PCM.PN ---
Subjective - Date & Time of Evaluation Date of Evaluation: 12/13/16 Time of Evaluation: 11:55 - Subjective Subjective: Comfortable in bed, not in distress, no fevers. Objective - Vital Signs/Intake and Output Vital Signs (last 24 hours): Temp Pulse Resp BP Pulse Ox 98.5 F 63 20 104/67 94 L 12/13/16 07:49 12/13/16 07:49 12/13/16 07:49 12/13/16 07:49 12/13/16 07:49 Intake and Output: 12/13/16 12/13/16 06:59 18:59 Intake Total 1020 Output Total 540 Balance 480 - Medications Medications: Current Medications Acetaminophen (Tylenol 325mg Tab) 650 mg PO Q6H PRN PRN Reason: Pain, moderate (4-7) Last Admin: 12/08/16 20:36 Dose: 650 mg Al Hydrox/Mg Hydrox/Simethicone (Maalox Plus 30 Ml) 30 ml PO DAILY PRN PRN Reason: Indigestion / Heartburn Clonazepam (Klonopin) 1 mg PO TID [facility] Stop: 12/15/16 18:01 Last Admin: 12/13/16 09:36 Dose: 1 mg Docusate Sodium (Colace) 100 mg PO TID [facility] Last Admin: 12/13/16 09:38 Dose: Not Given Escitalopram Oxalate (Lexapro) 10 mg PO DAILY [facility] Last Admin: 12/13/16 09:36 Dose: 10 mg Gabapentin (Neurontin) 800 mg PO TID [facility] PRN Reason: Protocol Last Admin: 12/13/16 09:36 Dose: 800 mg Heparin Sodium (Porcine) (Heparin) 5,000 units SC Q12 [facility] PRN Reason: Protocol Last Admin: 12/13/16 09:50 Dose: Not Given Hydrocortisone (Cortizone 1% Cream) 0 gm TOP BID [facility] Last Admin: 12/13/16 09:39 Dose: 1 appl Hydrocortisone/Pramoxine (Proctofoam) 1 gm TOP TID [facility] Last Admin: 12/13/16 09:41 Dose: 1 gm Meropenem 1g/NS 100mL IVPB (Meropenem 1g/Ns 100ml Ivpb) 100 mls @ 100 mls/hr IVPB Q8H [facility] Last Admin: 12/13/16 08:43 Dose: 100 mls/hr Ondansetron HCl (Zofran Inj) 4 mg IVP Q8 PRN PRN Reason: Nausea/Vomiting Oxycodone HCl (Oxycontin Extended Release Tab) 60 mg PO Q12 [facility] Last Admin: 12/13/16 09:35 Dose: 60 mg Oxycodone HCl (Oxycodone Immediate Release Tab) 5 mg PO Q4 PRN PRN Reason: Pain, severe (8-10) Last Admin: 12/13/16 09:37 Dose: 5 mg Pantoprazole Sodium (Protonix Inj) 40 mg IVP DAILY [facility] Last Admin: 12/13/16 09:38 Dose: 40 mg Quetiapine Fumarate (Seroquel) 200 mg PO BID [facility] PRN Reason: Protocol Last Admin: 12/13/16 09:36 Dose: 200 mg Simethicone (Mylicon Chew Tab) 80 mg PO PCHS PRN PRN Reason: GI distress Last Admin: 12/09/16 17:12 Dose: 80 mg Zolpidem Tartrate (Ambien) 5 mg PO HS [facility] PRN Reason: Protocol Last Admin: 12/13/16 00:20 Dose: Not Given - Labs Labs: 12/12/16 08:50 12/12/16 08:50 PT 13.4 Seconds (9.9-11.8) H 12/07/16 08:14 INR 1.24 (0.93-1.08) H 12/07/16 08:14 APTT 31.0 Seconds (23.7-30.8) H 12/07/16 08:14 - Constitutional Appears: Non-toxic, No Acute Distress - Head Exam Head Exam: NORMAL INSPECTION - Neck Exam Neck Exam: absent: Lymphadenopathy, Meningismus - Respiratory Exam Respiratory Exam: Decreased Breath Sounds - Cardiovascular Exam Cardiovascular Exam: +S1, +S2 - GI/Abdominal Exam GI & Abdominal Exam: Soft. absent: Tenderness Assessment and Plan - Assessment and Plan (Free Text) Plan: Assessment Sepsis secondary to Pelvic abscess, probably related to the patient's Crohn's disease, S/P exploratory laparotomy, diverting colostomy and surgical drainage of the abscess POD POD #5; S/P CT-guided drainage POD #10, growing ESBL- producing multidrug-resistant E. coli; S/P drainage of perirectal abscess 3 days ago with note of mucinous adenocarcinoma asthma history of pneumonia eczema history of psoriasis anxiety history of depression bipolar disorder history of alcohol abuse history of right hemicolectomy history of perirectal abscess Plan continue Meropenem and will continue to monitor clinically; will continue to monitor fever curve and amount of abdominal drainage; can d/c antibiotics once drain is removed
--- NOTE | 2016-12-13 21:25 | CP.PCM.PN ---
<Larry Brown - Last Filed: 12/13/16 21:21> Subjective - Date & Time of Evaluation Date of Evaluation: 12/13/16 Time of Evaluation: 09:15 - Subjective Subjective: Dr. Brown Patient seen and evaluated at bedside. She is POD #6 of exploratory laparotomy perirectal abscess I&D, removal of phlegmon, diverting colostomy. She states she still has abdominal pain which was worsened when the drain was removed but is being controlled by medication. She is able to tolerate her diet well. She denies any fever,chills, chest pain, SOB, palpitations, nausea, vomiting, diarrhea, or incontinence. Objective - Vital Signs/Intake and Output Vital Signs (last 24 hours): Temp Pulse Resp BP Pulse Ox 97.9 F 80 20 91/47 L 99 12/13/16 16:00 12/13/16 16:00 12/13/16 16:00 12/13/16 16:00 12/13/16 16:00 Intake and Output: 12/13/16 12/14/16 18:59 06:59 Intake Total 960 380 Balance 960 380 - Medications Medications: Current Medications Acetaminophen (Tylenol 325mg Tab) 650 mg PO Q6H PRN PRN Reason: Pain, moderate (4-7) Last Admin: 12/08/16 20:36 Dose: 650 mg Al Hydrox/Mg Hydrox/Simethicone (Maalox Plus 30 Ml) 30 ml PO DAILY PRN PRN Reason: Indigestion / Heartburn Clonazepam (Klonopin) 1 mg PO TID [facility] Stop: 12/15/16 18:01 Last Admin: 12/13/16 17:48 Dose: 1 mg Docusate Sodium (Colace) 100 mg PO TID [facility] Last Admin: 12/13/16 17:48 Dose: Not Given Escitalopram Oxalate (Lexapro) 10 mg PO DAILY [facility] Last Admin: 12/13/16 09:36 Dose: 10 mg Gabapentin (Neurontin) 800 mg PO TID [facility] PRN Reason: Protocol Last Admin: 12/13/16 17:49 Dose: 800 mg Heparin Sodium (Porcine) (Heparin) 5,000 units SC Q12 [facility] PRN Reason: Protocol Last Admin: 12/13/16 09:50 Dose: Not Given Hydrocortisone (Cortizone 1% Cream) 0 gm TOP BID [facility] Last Admin: 12/13/16 17:48 Dose: 1 appl Hydrocortisone/Pramoxine (Proctofoam) 1 gm TOP TID [facility] Last Admin: 12/13/16 18:04 Dose: 1 gm Meropenem 1g/NS 100mL IVPB (Meropenem 1g/Ns 100ml Ivpb) 100 mls @ 100 mls/hr IVPB Q8H [facility] Last Admin: 12/13/16 16:50 Dose: 100 mls/hr Ondansetron HCl (Zofran Inj) 4 mg IVP Q8 PRN PRN Reason: Nausea/Vomiting Oxycodone HCl (Oxycontin Extended Release Tab) 60 mg PO Q12 [facility] Last Admin: 12/13/16 09:35 Dose: 60 mg Oxycodone HCl (Oxycodone Immediate Release Tab) 5 mg PO Q4 PRN PRN Reason: Pain, severe (8-10) Last Admin: 12/13/16 20:49 Dose: 5 mg Pantoprazole Sodium (Protonix Inj) 40 mg IVP DAILY [facility] Last Admin: 12/13/16 09:38 Dose: 40 mg Quetiapine Fumarate (Seroquel) 200 mg PO BID [facility] PRN Reason: Protocol Last Admin: 12/13/16 17:57 Dose: 200 mg Simethicone (Mylicon Chew Tab) 80 mg PO [facility] PRN PRN Reason: GI distress Last Admin: 12/09/16 17:12 Dose: 80 mg Zolpidem Tartrate (Ambien) 5 mg PO [facility] PRN Reason: Protocol Last Admin: 12/13/16 00:20 Dose: Not Given - Labs Labs: 12/12/16 08:50 12/12/16 08:50 PT 13.4 Seconds (9.9-11.8) H 12/07/16 08:14 INR 1.24 (0.93-1.08) H 12/07/16 08:14 APTT 31.0 Seconds (23.7-30.8) H 12/07/16 08:14 - Constitutional Appears: Older Than Stated Age - Head Exam Head Exam: ATRAUMATIC, NORMOCEPHALIC - Eye Exam Eye Exam: EOMI, Normal appearance, PERRL Pupil Exam: NORMAL ACCOMODATION, PERRL - ENT Exam ENT Exam: Mucous Membranes Moist, Normal Exam - Neck Exam Neck Exam: Normal Inspection - Respiratory Exam Respiratory Exam: Clear to Ausculation Bilateral, NORMAL BREATHING PATTERN. absent: Rales, Rhonchi, Wheezes - Cardiovascular Exam Cardiovascular Exam: REGULAR RHYTHM, +S1, +S2 - GI/Abdominal Exam GI & Abdominal Exam: Soft, Tenderness (appropraitely), Normal Bowel Sounds Additional comments: colostomy site producing brown stool - Extremities Exam Extremities Exam: Normal Capillary Refill, Normal Inspection. absent: Pedal Edema - Neurological Exam Neurological Exam: Alert, Awake, CN II-XII Intact, Oriented x3 - Psychiatric Exam Psychiatric exam: Agitated - Skin Skin Exam: Dry, Intact, Warm Assessment and Plan - Assessment and Plan (Free Text) Assessment: 51yo F with PMHx of Crohn's disease, perirectal abscess, Bipolar disorder, Drug abuse, Opiate dependence and non-compliance with follow up here for evaluation of abdominal pain. S/p exploratory laparotomy, perirectal abscess I&D, removal of phlegmon, diverting colostomy Plan: 1. Abd Pain * CT Abd/Pelvis - evidence of pelvic cyst w/lymphadenopathy. Perirectal abscess. Diffuse constipation (see full report) * IR perirectal abscess drainage 12/[address] Metcalf * Cultures growing ESBL * Contact precautions * ID following, Dr. Mcneill, help appreciated * GI reconsulted for possible colonoscopy and recs * Continue Meropenam 1 gm IVPB Q8H * Surgery consulted, Dr. Marti, help appreciated s/p perirectal abscess I&D POD #8 s/p perirectal abscess i&D, removal of phlegmon, diverting colostomy on POD # 6 * Drains removed * Pathology report: abscess specimen sent for immunohistochemistry to r/o neoplasm * Heme/Onc consult, Dr. Bryant, help appreciated * Oxycodone 5 mg PO Q4H PRN, Oxycontin 60 mg PO Q12H, Gabapentin 800 mg PO TID 2. Hx of Bipolar disorder * Continue home meds * Psych eval requested 3. Hx of drug abuse * monitor for withdrawal * Chronic opioid use/abuse. * possible illicit drug use in the hospital overnight on 12/06 * Cessation counseling 4. PPx * Protonix 40mg IV Daily * Incentive Spirometer * SCDs * PT/OT Assessment and plan discussed with attending physician. <Mari Kincaid B - Last Filed: 12/14/16 12:03> Objective - Vital Signs/Intake and Output Vital Signs (last 24 hours): Temp Pulse Resp BP Pulse Ox 98.2 F 59 L 20 89/50 L 98 12/14/16 07:23 12/14/16 07:23 12/14/16 07:23 12/14/16 07:23 12/14/16 07:23 Intake and Output: 12/14/16 12/14/16 06:59 18:59 Intake Total 380 Balance 380 - Medications Medications: Current Medications Acetaminophen (Tylenol 325mg Tab) 650 mg PO Q6H PRN PRN Reason: Pain, moderate (4-7) Last Admin: 12/08/16 20:36 Dose: 650 mg Al Hydrox/Mg Hydrox/Simethicone (Maalox Plus 30 Ml) 30 ml PO DAILY PRN PRN Reason: Indigestion / Heartburn Clonazepam (Klonopin) 1 mg PO TID [facility] Stop: 12/15/16 18:01 Last Admin: 12/14/16 10:37 Dose: 1 mg Docusate Sodium (Colace) 100 mg PO TID [facility] Last Admin: 12/14/16 10:37 Dose: 100 mg Escitalopram Oxalate (Lexapro) 10 mg PO DAILY [facility] Last Admin: 12/14/16 10:38 Dose: 10 mg Gabapentin (Neurontin) 800 mg PO TID [facility] PRN Reason: Protocol Last Admin: 12/14/16 10:45 Dose: 800 mg Heparin Sodium (Porcine) (Heparin) 5,000 units SC Q12 [facility] PRN Reason: Protocol Last Admin: 12/14/16 10:47 Dose: Not Given Hydrocortisone (Cortizone 1% Cream) 0 gm TOP BID [facility] Last Admin: 12/14/16 10:47 Dose: Not Given Hydrocortisone/Pramoxine (Proctofoam) 1 gm TOP TID [facility] Last Admin: 12/14/16 10:48 Dose: Not Given Meropenem 1g/NS 100mL IVPB (Meropenem 1g/Ns 100ml Ivpb) 100 mls @ 100 mls/hr IVPB Q8H [facility] Last Admin: 12/13/16 23:53 Dose: 100 mls/hr Ondansetron HCl (Zofran Inj) 4 mg IVP Q8 PRN PRN Reason: Nausea/Vomiting Oxycodone HCl (Oxycontin Extended Release Tab) 60 mg PO Q12 [facility] Last Admin: 12/14/16 10:44 Dose: 60 mg Oxycodone HCl (Oxycodone Immediate Release Tab) 5 mg PO Q4 PRN PRN Reason: Pain, severe (8-10) Last Admin: 12/14/16 10:46 Dose: 5 mg Pantoprazole Sodium (Protonix Inj) 40 mg IVP DAILY [facility] Last Admin: 12/14/16 10:48 Dose: Not Given Quetiapine Fumarate (Seroquel) 200 mg PO BID [facility] PRN Reason: Protocol Last Admin: 12/14/16 10:48 Dose: 200 mg Simethicone (Mylicon Chew Tab) 80 mg PO [facility] PRN PRN Reason: GI distress Last Admin: 12/09/16 17:12 Dose: 80 mg Zolpidem Tartrate (Ambien) 5 mg PO HS [facility] PRN Reason: Protocol Last Admin: 12/14/16 03:45 Dose: Not Given - Labs Labs: 12/14/16 08:58 12/14/16 08:58 PT 13.4 Seconds (9.9-11.8) H 12/07/16 08:14 INR 1.24 (0.93-1.08) H 12/07/16 08:14 APTT 31.0 Seconds (23.7-30.8) H 12/07/16 08:14 Attending/Attestation - Attestation I have personally seen and examined this patient.: Yes I have fully participated in the care of the patient.: Yes I have reviewed all pertinent clinical information, including history, physical exam and plan: Yes Notes (Text): I have seen and examined patient at bedside. This is 51 year old female with history of Crohn's disease s/p right hemicolectomy, asthma, psoriasis, anxiety, depression, perirectal abscess, Bipolar disorder, Drug abuse, Opiate dependence and non-compliance with follow up here for evaluation of abdominal pain and found to have sepsis secondary to peirectal abscess s/p IR guided drainage and s /p ex lap, removal of phlegmon, diverting colostomy. Wound is growing ESBL producing multi drug resistant E. coli now on meropenem. Drain was removed today. 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 Discussed with Dr Briseno. Will consult GI for possible colonoscopy in the future. Plan for PET scan atleast after 3 weeks. Discussed with flat sorting machine clerk rn observation Dr Curtis who recommended to consult after PET scan or CT pelvis is done. At this point, patient cannot be started on chemo or RT due to recent surgery. Dr Mari Kincaid
[2016-12-14] MEDS: oxyCODONE 5 mg Immediate Release Tab PO PRN ×5 (00:43→20:28)
--- NOTE | 2016-12-14 06:58 | CP.PCM.PN ---
Subjective - Date & Time of Evaluation Date of Evaluation: 12/14/16 Time of Evaluation: 06:50 - Subjective Subjective: Patient seen and examined. Resting in bed comfortably. No acute events overnight, she complains of abdominal pain primarily at surgical site. She otherwise denies nausea, vomiting, fever/chills. Tolerating PO diet without difficulty. Ostomy output adequate with solid brown stool noted in bag. 12 point review of systems performed, negative aside from mentioned above. Objective - Vital Signs/Intake and Output Vital Signs (last 24 hours): Temp Pulse Resp BP Pulse Ox 97.9 F 80 20 91/47 L 99 12/13/16 16:00 12/13/16 16:00 12/13/16 16:00 12/13/16 16:00 12/13/16 16:00 Intake and Output: 12/13/16 12/14/16 18:59 06:59 Intake Total 960 380 Balance 960 380 - Medications Medications: Current Medications Acetaminophen (Tylenol 325mg Tab) 650 mg PO Q6H PRN PRN Reason: Pain, moderate (4-7) Last Admin: 12/08/16 20:36 Dose: 650 mg Al Hydrox/Mg Hydrox/Simethicone (Maalox Plus 30 Ml) 30 ml PO DAILY PRN PRN Reason: Indigestion / Heartburn Clonazepam (Klonopin) 1 mg PO TID [facility] Stop: 12/15/16 18:01 Last Admin: 12/13/16 17:48 Dose: 1 mg Docusate Sodium (Colace) 100 mg PO TID [facility] Last Admin: 12/13/16 17:48 Dose: Not Given Escitalopram Oxalate (Lexapro) 10 mg PO DAILY [facility] Last Admin: 12/13/16 09:36 Dose: 10 mg Gabapentin (Neurontin) 800 mg PO TID [facility] PRN Reason: Protocol Last Admin: 12/13/16 17:49 Dose: 800 mg Heparin Sodium (Porcine) (Heparin) 5,000 units SC Q12 [facility] PRN Reason: Protocol Last Admin: 12/13/16 23:24 Dose: Not Given Hydrocortisone (Cortizone 1% Cream) 0 gm TOP BID [facility] Last Admin: 12/13/16 17:48 Dose: 1 appl Hydrocortisone/Pramoxine (Proctofoam) 1 gm TOP TID [facility] Last Admin: 12/13/16 18:04 Dose: 1 gm Meropenem 1g/NS 100mL IVPB (Meropenem 1g/Ns 100ml Ivpb) 100 mls @ 100 mls/hr IVPB Q8H [facility] Last Admin: 12/13/16 23:53 Dose: 100 mls/hr Ondansetron HCl (Zofran Inj) 4 mg IVP Q8 PRN PRN Reason: Nausea/Vomiting Oxycodone HCl (Oxycontin Extended Release Tab) 60 mg PO Q12 [facility] Last Admin: 12/13/16 22:13 Dose: 60 mg Oxycodone HCl (Oxycodone Immediate Release Tab) 5 mg PO Q4 PRN PRN Reason: Pain, severe (8-10) Last Admin: 12/14/16 00:43 Dose: 5 mg Pantoprazole Sodium (Protonix Inj) 40 mg IVP DAILY [facility] Last Admin: 12/13/16 09:38 Dose: 40 mg Quetiapine Fumarate (Seroquel) 200 mg PO BID [facility] PRN Reason: Protocol Last Admin: 12/13/16 17:57 Dose: 200 mg Simethicone (Mylicon Chew Tab) 80 mg PO HS PRN PRN Reason: GI distress Last Admin: 12/09/16 17:12 Dose: 80 mg Zolpidem Tartrate (Ambien) 5 mg PO [facility] PRN Reason: Protocol Last Admin: 12/14/16 03:45 Dose: Not Given - Labs Labs: 12/12/16 08:50 12/12/16 08:50 PT 13.4 Seconds (9.9-11.8) H 12/07/16 08:14 INR 1.24 (0.93-1.08) H 12/07/16 08:14 APTT 31.0 Seconds (23.7-30.8) H 12/07/16 08:14 - Constitutional Appears: Non-toxic, No Acute Distress - Head Exam Head Exam: NORMAL INSPECTION - Eye Exam Eye Exam: EOMI, Normal appearance - ENT Exam ENT Exam: Mucous Membranes Moist - Respiratory Exam Respiratory Exam: Clear to Ausculation Bilateral - Cardiovascular Exam Cardiovascular Exam: REGULAR RHYTHM, +S1, +S2 - GI/Abdominal Exam GI & Abdominal Exam: Soft, Tenderness, Normal Bowel Sounds Additional comments: LLQ ostomy present, midline surgical dressing intact RLQ ALBINA drain present generalized tenderness to palpation, no rebound/guarding - Extremities Exam Extremities Exam: Normal Inspection - Skin Skin Exam: Intact, Normal Color, Rash Additional comments: psoriatic rash present on trunk and extremities Assessment and Plan - Assessment and Plan (Free Text) Assessment: Bipolar disorder, polysubstance abuse Crohn's disease Vlad-rectal abscess s/p exploratory laparotomy and diverting colostomy Plan: - Diet as tolerated - Continue with antibiotic therapy as per ID - Pain control - Follow up surgical recommendations - Pathology results from vlad-rectal abscess reviewed showing mucinous adenocarcinoma of colonic origin. Given underlying diagnosis of inflammatory bowel disease and fact that patient has never had colonoscopy before, she is at high risk for underlying colon cancer. She would certainly require endoscopic evaluation, though patient is POD #7 and still has significant pain related to surgical intervention. Will discuss with surgical team regarding timing of endoscopy and monitor patient clinical course.
[2016-12-14 09:00] LABS: ADD MANUAL DIFF? NO
[2016-12-14 09:04] LABS: BASO # 0.03 K/mm3 (0.0-2.0); BASO % 0.4 % (0.0-3.0); EOS # 0.3 (0.0-0.7); GRAN # 6.06 (1.4-6.5); GRAN % 72.8 % (50.0-68.0); HEMATOCRIT 28.7 % (36.0-48.0); LYMPH # 1.3 (1.2-3.4); LYMPH % 15.3 % (22.0-35.0); MEAN CELL VOLUME 88.3 fL (80.0-105.0); MEAN CORPUSCULAR HEMOGLOBIN 27.7 pg (25.0-35.0); MEAN CORPUSCULAR HGB CONC 31.4 g/dl (31.0-37.0); MEAN PLATELET VOLUME 9.7 fl (7.0-11.0); MONO # 0.6 (0.1-0.6); MONO % 7.5 % (1.0-6.0); PLATELET COUNT 461 10^3/uL (120.0-450.0); RED CELL DISTRIBUTION WIDTH 16.6 % (11.5-14.5); WHITE BLOOD COUNT 8.3 10^3/ul (4.5-11.0)
[2016-12-14 09:24] LABS: ALB/GLOB RATIO 0.7 (1.1-1.8); ALKALINE PHOSPHATASE 94 U/L (38-133); ALT/SGPT 9 U/L (7-56); AST/SGOT 21 U/L (15-39); BILIRUBIN,TOTAL 0.2 mg/dL (0.2-1.3); BLOOD UREA NITROGEN 10 mg/dL (7-21); CALCIUM 8.1 mg/dL (8.4-10.5); CARBON DIOXIDE 30 mmol/L (21-33); CHLORIDE 102 mmol/L (98-107); GFR AFRICAN-AMERICAN > 60; GLUCOSE,RANDOM 93 mg/dL (70-110); MAGNESIUM 1.7 mg/dL (1.7-2.2); PHOSPHOROUS 2.9 mg/dL (2.5-4.5); SODIUM 138 mmol/L (132-148); TOTAL PROTEIN 5.7 g/dL (5.8-8.3)
[2016-12-14] MEDS: oxyCODONE 20 mg ER Tab (oxyCONTIN) PO SCH ×2 (10:44→22:32)
[2016-12-14] MEDS: Hydrocortisone 1% Cream (30 GM) TOP SCH ×2 (10:47→17:26)
[2016-12-14] MEDS: Hydrocortisone-Pramoxine 1%-1% Foam(10 gm) TOP SCH ×3 (10:48→17:26)
--- NOTE | 2016-12-14 11:18 | PN ---
DATE: 12/14/2016 The patient is in bed, in no acute distress, nontoxic. She was seen earlier today, had episode of di arrhea. PHYSICAL EXAMINATION: VITAL SIGNS: Temperature is 98, blood pressure is 89/50, respiratory rate 20, heart rate of 60. HEENT: Unremarkable. NECK: Supple. LUNGS: Have decreased breath sounds. HEART: Normal S1, S2. ABDOMEN: Soft. LABORATORY EXAMINATION: Reveals a white count of 8, hemoglobin of 9, platelets of 461. Chemistries reveal the BUN of 10, creatinine of 0.8 and CA 19-9 antigen is 125. Urinalysis is noted. Toxicology is noted. Microbiology is noted. Review of orders, on meropenem. ASSESSMENT AND PLAN: A 51-year-old female seen earlier today with sepsis secondary to pelvic abscess , probably related to underlying Crohn's, status post exploratory laparotomy, diverting colostomy, quijano rgical drainage of an abscess, postoperative procedure day #6 and status post CAT scan-guided post-pr ocedure day #11, growing extended-spectrum beta-lactamase, multidrug resistant Escherichia coli, stat us post drainage with a perirectal abscess in this patient with mucinous adenocarcinoma, asthma and h istory of pneumonia, on meropenem. Long-term prognosis quite poor. Review of the orders and review of the chart from previous admissions, the patient did have pathology from 12/01 suspicious for mucino us adenocarcinoma of colonic origin. Omkar Mcneill MD cc: [id number] TT: 12/14/2016 11:17:37 Confirmation # [id number] Dictation # [id number]
--- NOTE | 2016-12-14 13:48 | CP.PCM.PN ---
<NicoletteJosiah - Last Filed: 12/14/16 13:44> Subjective - Date & Time of Evaluation Date of Evaluation: 12/14/16 Time of Evaluation: 10:15 - Subjective Subjective: PGY-1 Medicine Progress Note for Dr. Kincaid Patient seen and evaluated at bedside. She is POD #7 of exploratory laparotomy perirectal abscess I&D, removal of phlegmon, diverting colostomy. She states she still has abdominal pain. She reports that ever since drain was removed it is worse and she needs more pain medication. She is able to tolerate her diet well and colostomy is producing soft, brown stool. She denies any fever,chills, chest pain, SOB, palpitations, nausea, vomiting, diarrhea, or incontinence. Objective - Vital Signs/Intake and Output Vital Signs (last 24 hours): Temp Pulse Resp BP Pulse Ox 98.2 F 59 L 20 89/50 L 98 12/14/16 07:23 12/14/16 07:23 12/14/16 07:23 12/14/16 07:23 12/14/16 07:23 Intake and Output: 12/14/16 12/14/16 06:59 18:59 Intake Total 380 Balance 380 - Medications Medications: Current Medications Acetaminophen (Tylenol 325mg Tab) 650 mg PO Q6H PRN PRN Reason: Pain, moderate (4-7) Last Admin: 12/08/16 20:36 Dose: 650 mg Al Hydrox/Mg Hydrox/Simethicone (Maalox Plus 30 Ml) 30 ml PO DAILY PRN PRN Reason: Indigestion / Heartburn Clonazepam (Klonopin) 1 mg PO TID [facility] Stop: 12/15/16 18:01 Last Admin: 12/14/16 13:21 Dose: 1 mg Docusate Sodium (Colace) 100 mg PO TID [facility] Last Admin: 12/14/16 13:22 Dose: Not Given Escitalopram Oxalate (Lexapro) 10 mg PO DAILY [facility] Last Admin: 12/14/16 10:38 Dose: 10 mg Gabapentin (Neurontin) 800 mg PO TID [facility] PRN Reason: Protocol Last Admin: 12/14/16 13:22 Dose: 800 mg Heparin Sodium (Porcine) (Heparin) 5,000 units SC Q12 [facility] PRN Reason: Protocol Last Admin: 12/14/16 10:47 Dose: Not Given Hydrocortisone (Cortizone 1% Cream) 0 gm TOP BID [facility] Last Admin: 12/14/16 10:47 Dose: Not Given Hydrocortisone/Pramoxine (Proctofoam) 1 gm TOP TID [facility] Last Admin: 12/14/16 13:22 Dose: Not Given Meropenem 1g/NS 100mL IVPB (Meropenem 1g/Ns 100ml Ivpb) 100 mls @ 100 mls/hr IVPB Q8H [facility] Last Admin: 12/13/16 23:53 Dose: 100 mls/hr Ondansetron HCl (Zofran Inj) 4 mg IVP Q8 PRN PRN Reason: Nausea/Vomiting Oxycodone HCl (Oxycontin Extended Release Tab) 60 mg PO Q12 [facility] Last Admin: 12/14/16 10:44 Dose: 60 mg Oxycodone HCl (Oxycodone Immediate Release Tab) 5 mg PO Q4 PRN PRN Reason: Pain, severe (8-10) Last Admin: 12/14/16 10:46 Dose: 5 mg Pantoprazole Sodium (Protonix Inj) 40 mg IVP DAILY [facility] Last Admin: 12/14/16 10:48 Dose: Not Given Quetiapine Fumarate (Seroquel) 200 mg PO BID [facility] PRN Reason: Protocol Last Admin: 12/14/16 10:48 Dose: 200 mg Simethicone (Mylicon Chew Tab) 80 mg PO [facility] PRN PRN Reason: GI distress Last Admin: 12/09/16 17:12 Dose: 80 mg Zolpidem Tartrate (Ambien) 5 mg PO [facility] PRN Reason: Protocol Last Admin: 12/14/16 03:45 Dose: Not Given - Labs Labs: 12/14/16 08:58 12/14/16 08:58 PT 13.4 Seconds (9.9-11.8) H 12/07/16 08:14 INR 1.24 (0.93-1.08) H 12/07/16 08:14 APTT 31.0 Seconds (23.7-30.8) H 12/07/16 08:14 - Constitutional Appears: No Acute Distress - Head Exam Head Exam: ATRAUMATIC, NORMOCEPHALIC - Eye Exam Eye Exam: EOMI, Normal appearance Pupil Exam: PERRL - ENT Exam ENT Exam: Mucous Membranes Moist - Neck Exam Neck Exam: Normal Inspection - Respiratory Exam Respiratory Exam: Clear to Ausculation Bilateral, NORMAL BREATHING PATTERN - Cardiovascular Exam Cardiovascular Exam: REGULAR RHYTHM, +S1, +S2 - GI/Abdominal Exam GI & Abdominal Exam: Soft, Tenderness (mild to deep palpation), Normal Bowel Sounds Additional comments: colostomy site draining soft, brown stool in bag - Extremities Exam Extremities Exam: Normal Capillary Refill - Back Exam Back Exam: absent: CVA tenderness (L), CVA tenderness (R) - Neurological Exam Neurological Exam: Alert, Awake, CN II-XII Intact, Oriented x3 - Psychiatric Exam Psychiatric exam: Normal Affect, Normal Mood - Skin Skin Exam: Dry, Intact, Normal Color, Warm Assessment and Plan - Assessment and Plan (Free Text) Plan: 51 F with PMHx of Crohn's disease, perirectal abscess, Bipolar disorder, Drug abuse, Opiate dependence and non-compliance with follow up here for evaluation of abdominal pain. S/p exploratory laparotomy, perirectal abscess I&D, removal of phlegmon, diverting colostomy 1. Abd Pain CT Abd/Pelvis - evidence of pelvic cyst w/lymphadenopathy. Perirectal abscess. Diffuse constipation (see full report) IR perirectal abscess drainage 12/[address] Metcalf Cultures growing ESBL Contact precautions ID following, Dr. Mcneill, help appreciated GI reconsulted for possible colonoscopy and recs Continue Meropenam 1 gm IVPB Q8H Surgery consulted, Dr. Marti, help appreciated s/p perirectal abscess I&D POD #9 s/p perirectal abscess i&D, removal of phlegmon, diverting colostomy on POD # 7 Drain removed Pathology report: mucinous adenocarcinoma of colon Heme/Onc consult, Dr. Bryant, help appreciated Oxycodone 5 mg PO Q4H PRN, Oxycontin 60 mg PO Q12H, Gabapentin 800 mg PO TID 2. Hx of Bipolar disorder Continue home meds Psych eval requested 3. Hx of drug abuse monitor for withdrawal Chronic opioid use/abuse. possible illicit drug use in the hospital overnight on 12/06 Cessation counseling 4. PPx Protonix 40mg IV Daily Incentive Spirometer SCDs PT/OT <Mari Kincaid B - Last Filed: 12/14/16 14:10> Objective - Vital Signs/Intake and Output Vital Signs (last 24 hours): Temp Pulse Resp BP Pulse Ox 98.2 F 59 L 20 89/50 L 98 12/14/16 07:23 12/14/16 07:23 12/14/16 07:23 12/14/16 07:23 12/14/16 07:23 Intake and Output: 12/14/16 12/14/16 06:59 18:59 Intake Total 380 Balance 380 - Medications Medications: Current Medications Acetaminophen (Tylenol 325mg Tab) 650 mg PO Q6H PRN PRN Reason: Pain, moderate (4-7) Last Admin: 12/08/16 20:36 Dose: 650 mg Al Hydrox/Mg Hydrox/Simethicone (Maalox Plus 30 Ml) 30 ml PO DAILY PRN PRN Reason: Indigestion / Heartburn Clonazepam (Klonopin) 1 mg PO TID [facility] Stop: 12/15/16 18:01 Last Admin: 12/14/16 13:21 Dose: 1 mg Docusate Sodium (Colace) 100 mg PO TID [facility] Last Admin: 12/14/16 13:22 Dose: Not Given Escitalopram Oxalate (Lexapro) 10 mg PO DAILY [facility] Last Admin: 12/14/16 10:38 Dose: 10 mg Gabapentin (Neurontin) 800 mg PO TID [facility] PRN Reason: Protocol Last Admin: 12/14/16 13:22 Dose: 800 mg Heparin Sodium (Porcine) (Heparin) 5,000 units SC Q12 [facility] PRN Reason: Protocol Last Admin: 12/14/16 10:47 Dose: Not Given Hydrocortisone (Cortizone 1% Cream) 0 gm TOP BID [facility] Last Admin: 12/14/16 10:47 Dose: Not Given Hydrocortisone/Pramoxine (Proctofoam) 1 gm TOP TID [facility] Last Admin: 12/14/16 13:22 Dose: Not Given Meropenem 1g/NS 100mL IVPB (Meropenem 1g/Ns 100ml Ivpb) 100 mls @ 100 mls/hr IVPB Q8H [facility] Last Admin: 12/13/16 23:53 Dose: 100 mls/hr Ondansetron HCl (Zofran Inj) 4 mg IVP Q8 PRN PRN Reason: Nausea/Vomiting Oxycodone HCl (Oxycontin Extended Release Tab) 60 mg PO Q12 [facility] Last Admin: 12/14/16 10:44 Dose: 60 mg Oxycodone HCl (Oxycodone Immediate Release Tab) 5 mg PO Q4 PRN PRN Reason: Pain, severe (8-10) Last Admin: 12/14/16 10:46 Dose: 5 mg Pantoprazole Sodium (Protonix Inj) 40 mg IVP DAILY [facility] Last Admin: 12/14/16 10:48 Dose: Not Given Quetiapine Fumarate (Seroquel) 200 mg PO BID [facility] PRN Reason: Protocol Last Admin: 12/14/16 10:48 Dose: 200 mg Simethicone (Mylicon Chew Tab) 80 mg PO [facility] PRN PRN Reason: GI distress Last Admin: 12/09/16 17:12 Dose: 80 mg Zolpidem Tartrate (Ambien) 5 mg PO HS [facility] PRN Reason: Protocol Last Admin: 12/14/16 03:45 Dose: Not Given - Labs Labs: 12/14/16 08:58 12/14/16 08:58 PT 13.4 Seconds (9.9-11.8) H 12/07/16 08:14 INR 1.24 (0.93-1.08) H 12/07/16 08:14 APTT 31.0 Seconds (23.7-30.8) H 12/07/16 08:14 Attending/Attestation - Attestation I have personally seen and examined this patient.: Yes I have fully participated in the care of the patient.: Yes I have reviewed all pertinent clinical information, including history, physical exam and plan: Yes Notes (Text): I have seen and examined patient at bedside. This is 51 year old female with history of Crohn's disease s/p right hemicolectomy, asthma, psoriasis, anxiety, depression, perirectal abscess, Bipolar disorder, Drug abuse, Opiate dependence and non-compliance with follow up here for evaluation of abdominal pain and found to have sepsis secondary to peirectal abscess s/p IR guided drainage and s /p ex lap, removal of phlegmon, diverting colostomy. Wound is growing ESBL producing multi drug resistant E. coli now on meropenem. One of the Drain was removed yesterday. 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 Discussed with Dr Briseno and Dr Curtis in detail. Plan for PET scan in 3-4 weeks. GI consult appreciated for possible colonoscopy in the future. Overall, patient has tolerated the surgery well. This morning, she had an accident when colostomy bag came off and started leaking. Patient was very upset toward nursing staff. She was calm afterwards. She needs colostomy care teaching. Will do PT Eval. Complains of pain in abdomen. Pain management consult pending. Dr Mari Kincaid
--- NOTE | 2016-12-14 14:29 | CP.PCM.PN ---
Subjective - Date & Time of Evaluation Date of Evaluation: 12/14/16 Time of Evaluation: 14:26 - Subjective Subjective: Surgery for Dr. Marti Pt s&eIsh CHURCH. Pt c/o abd pain and ostomy leaking this AM. +amb, +void, Stoma functioning. Tolerating diet. Objective - Vital Signs/Intake and Output Vital Signs (last 24 hours): Temp Pulse Resp BP Pulse Ox 98.2 F 59 L 20 89/50 L 98 12/14/16 07:23 12/14/16 07:23 12/14/16 07:23 12/14/16 07:23 12/14/16 07:23 Intake and Output: 12/14/16 12/14/16 06:59 18:59 Intake Total 380 Balance 380 - Medications Medications: Current Medications Acetaminophen (Tylenol 325mg Tab) 650 mg PO Q6H PRN PRN Reason: Pain, moderate (4-7) Last Admin: 12/08/16 20:36 Dose: 650 mg Al Hydrox/Mg Hydrox/Simethicone (Maalox Plus 30 Ml) 30 ml PO DAILY PRN PRN Reason: Indigestion / Heartburn Clonazepam (Klonopin) 1 mg PO TID [facility] Stop: 12/15/16 18:01 Last Admin: 12/14/16 13:21 Dose: 1 mg Docusate Sodium (Colace) 100 mg PO TID [facility] Last Admin: 12/14/16 13:22 Dose: Not Given Escitalopram Oxalate (Lexapro) 10 mg PO DAILY [facility] Last Admin: 12/14/16 10:38 Dose: 10 mg Gabapentin (Neurontin) 800 mg PO TID [facility] PRN Reason: Protocol Last Admin: 12/14/16 13:22 Dose: 800 mg Heparin Sodium (Porcine) (Heparin) 5,000 units SC Q12 [facility] PRN Reason: Protocol Last Admin: 12/14/16 10:47 Dose: Not Given Hydrocortisone (Cortizone 1% Cream) 0 gm TOP BID [facility] Last Admin: 12/14/16 10:47 Dose: Not Given Hydrocortisone/Pramoxine (Proctofoam) 1 gm TOP TID [facility] Last Admin: 12/14/16 13:22 Dose: Not Given Meropenem 1g/NS 100mL IVPB (Meropenem 1g/Ns 100ml Ivpb) 100 mls @ 100 mls/hr IVPB Q8H [facility] Last Admin: 12/13/16 23:53 Dose: 100 mls/hr Ondansetron HCl (Zofran Inj) 4 mg IVP Q8 PRN PRN Reason: Nausea/Vomiting Oxycodone HCl (Oxycontin Extended Release Tab) 60 mg PO Q12 [facility] Last Admin: 12/14/16 10:44 Dose: 60 mg Oxycodone HCl (Oxycodone Immediate Release Tab) 5 mg PO Q4 PRN PRN Reason: Pain, severe (8-10) Last Admin: 12/14/16 10:46 Dose: 5 mg Pantoprazole Sodium (Protonix Inj) 40 mg IVP DAILY [facility] Last Admin: 12/14/16 10:48 Dose: Not Given Quetiapine Fumarate (Seroquel) 200 mg PO BID [facility] PRN Reason: Protocol Last Admin: 12/14/16 10:48 Dose: 200 mg Simethicone (Mylicon Chew Tab) 80 mg PO [facility] PRN PRN Reason: GI distress Last Admin: 12/09/16 17:12 Dose: 80 mg Zolpidem Tartrate (Ambien) 5 mg PO HS [facility] PRN Reason: Protocol Last Admin: 12/14/16 03:45 Dose: Not Given - Labs Labs: 12/14/16 08:58 12/14/16 08:58 PT 13.4 Seconds (9.9-11.8) H 12/07/16 08:14 INR 1.24 (0.93-1.08) H 12/07/16 08:14 APTT 31.0 Seconds (23.7-30.8) H 12/07/16 08:14 - Constitutional Appears: No Acute Distress - Head Exam Head Exam: ATRAUMATIC, NORMAL INSPECTION, NORMOCEPHALIC - Eye Exam Eye Exam: EOMI, Normal appearance, PERRL Pupil Exam: NORMAL ACCOMODATION, PERRL - ENT Exam ENT Exam: Mucous Membranes Moist, Normal Exam - Neck Exam Neck Exam: Full ROM, Normal Inspection. absent: Lymphadenopathy - Respiratory Exam Respiratory Exam: Clear to Ausculation Bilateral, NORMAL BREATHING PATTERN - Cardiovascular Exam Cardiovascular Exam: REGULAR RHYTHM, +S1, +S2. absent: Murmur - GI/Abdominal Exam GI & Abdominal Exam: Soft, Tenderness, Normal Bowel Sounds. absent: Distended, Firm, Guarding, Rigid, Mass, Organomegaly Additional comments: Stoma: pink , patent - Exam Exam: NORMAL INSPECTION - Extremities Exam Extremities Exam: Full ROM, Normal Capillary Refill, Normal Inspection. absent : Joint Swelling, Pedal Edema - Back Exam Back Exam: NORMAL INSPECTION - Neurological Exam Neurological Exam: Alert, Awake, CN II-XII Intact, Normal Gait, Oriented x3 - Skin Skin Exam: Dry, Intact, Normal Color, Warm Assessment and Plan - Assessment and Plan (Free Text) Assessment: 51F w. perirectal abscess and stricture of rectum s/p diverting end colostomy w / drainage of perirectal phlegmon, POD#7 - ostomy care - jean claude drain care: ALBINA 15cc/24hrs ss - c/w pain management - c/w daily packing - regular diet - encourage OOB, ambulation, and IS use - Oncology is following patient: may need port for chemo - GI/DVT prophylaxis Further recs discuss with Dr. Marti
[2016-12-14] MEDS: Meropenem 1g/NS 100mL IVPB 100 ML IVPB SCH (15:53)
[2016-12-15] MEDS: oxyCODONE 5 mg Immediate Release Tab PO PRN ×5 (00:33→19:26)
[2016-12-15] MEDS: Meropenem 1g/NS 100mL IVPB 100 ML IVPB SCH ×3 (00:34→17:14)
[2016-12-15 07:11] LABS: HEMATOCRIT 29.4 % (36.0-48.0); MEAN CELL VOLUME 88.6 fL (80.0-105.0); MEAN CORPUSCULAR HEMOGLOBIN 28.3 pg (25.0-35.0); MEAN PLATELET VOLUME 10.2 fl (7.0-11.0); PLATELET COUNT 477 10^3/uL (120.0-450.0); RED CELL DISTRIBUTION WIDTH 16.8 % (11.5-14.5)
--- NOTE | 2016-12-15 07:12 | CP.PCM.PN ---
<Charu Smith - Last Filed: 12/15/16 12:45> Subjective - Date & Time of Evaluation Date of Evaluation: 12/15/16 Time of Evaluation: 07:08 - Subjective Subjective: Gastroenterology Fellow/PGY4 Progress Note Patient notes continued abdominal pain despite opioid use, pain scale 8/10. Notes colostomy bag replaced overnight due to falling off upon standing. Tolerating regular diet. A 12-point review of systems negative except for as above. Objective - Vital Signs/Intake and Output Vital Signs (last 24 hours): Temp Pulse Resp BP Pulse Ox 97.7 F 59 L 20 96/62 L 96 12/14/16 16:00 12/14/16 16:00 12/14/16 16:00 12/14/16 16:00 12/14/16 16:00 Intake and Output: 12/15/16 12/15/16 06:59 18:59 Intake Total 440 Output Total 15 Balance 425 - Medications Medications: Current Medications Acetaminophen (Tylenol 325mg Tab) 650 mg PO Q6H PRN PRN Reason: Pain, moderate (4-7) Last Admin: 12/08/16 20:36 Dose: 650 mg Al Hydrox/Mg Hydrox/Simethicone (Maalox Plus 30 Ml) 30 ml PO DAILY PRN PRN Reason: Indigestion / Heartburn Clonazepam (Klonopin) 1 mg PO TID [facility] Stop: 12/15/16 18:01 Last Admin: 12/14/16 17:25 Dose: 1 mg Docusate Sodium (Colace) 100 mg PO TID [facility] Last Admin: 12/14/16 17:26 Dose: Not Given Escitalopram Oxalate (Lexapro) 10 mg PO DAILY [facility] Last Admin: 12/14/16 10:38 Dose: 10 mg Gabapentin (Neurontin) 800 mg PO TID [facility] PRN Reason: Protocol Last Admin: 12/14/16 17:26 Dose: 800 mg Heparin Sodium (Porcine) (Heparin) 5,000 units SC Q12 [facility] PRN Reason: Protocol Last Admin: 12/14/16 22:30 Dose: Not Given Hydrocortisone (Cortizone 1% Cream) 0 gm TOP BID [facility] Last Admin: 12/14/16 17:26 Dose: Not Given Hydrocortisone/Pramoxine (Proctofoam) 1 gm TOP TID [facility] Last Admin: 12/14/16 17:26 Dose: Not Given Meropenem 1g/NS 100mL IVPB (Meropenem 1g/Ns 100ml Ivpb) 100 mls @ 100 mls/hr IVPB Q8H [facility] Last Admin: 12/15/16 00:34 Dose: 100 mls/hr Ondansetron HCl (Zofran Inj) 4 mg IVP Q8 PRN PRN Reason: Nausea/Vomiting Oxycodone HCl (Oxycontin Extended Release Tab) 60 mg PO Q12 [facility] Last Admin: 12/14/16 22:32 Dose: 60 mg Oxycodone HCl (Oxycodone Immediate Release Tab) 5 mg PO Q4 PRN PRN Reason: Pain, severe (8-10) Last Admin: 12/15/16 06:47 Dose: 5 mg Pantoprazole Sodium (Protonix Inj) 40 mg IVP DAILY [facility] Last Admin: 12/14/16 10:48 Dose: Not Given Quetiapine Fumarate (Seroquel) 200 mg PO BID [facility] PRN Reason: Protocol Last Admin: 12/14/16 17:25 Dose: 200 mg Simethicone (Mylicon Chew Tab) [address] [facility] PRN PRN Reason: GI distress Last Admin: 12/09/16 17:12 Dose: 80 mg Zolpidem Tartrate (Ambien) 5 mg PO [facility] PRN Reason: Protocol Last Admin: 12/15/16 00:45 Dose: Not Given - Labs Labs: 12/14/16 08:58 12/14/16 08:58 PT 13.4 Seconds (9.9-11.8) H 12/07/16 08:14 INR 1.24 (0.93-1.08) H 12/07/16 08:14 APTT 31.0 Seconds (23.7-30.8) H 12/07/16 08:14 - Constitutional Appears: Non-toxic, No Acute Distress - Head Exam Head Exam: ATRAUMATIC, NORMOCEPHALIC - Eye Exam Eye Exam: EOMI, PERRL Pupil Exam: PERRL. absent: Miosis, Mydriatic - ENT Exam ENT Exam: Mucous Membranes Moist, Normal Oropharynx - Neck Exam Neck Exam: Full ROM, Normal Inspection Additional comments: Right IJ C/D/I - Respiratory Exam Respiratory Exam: Clear to Ausculation Bilateral. absent: Rales, Rhonchi, Wheezes - Cardiovascular Exam Cardiovascular Exam: RRR, +S1, +S2. absent: Gallop, Rubs - GI/Abdominal Exam GI & Abdominal Exam: Soft, Tenderness, Normal Bowel Sounds. absent: Distended, Firm, Guarding, Rigid, Organomegaly, Rebound Additional comments: anna intact at midline surgical site, no dehiscence, left-sided colostomy - stoma with pink hue, borwn-green loose stool present, 540cc of stool output in last 24 hours, RLQ ALBINA drain-with 5cc of serosanguinous drainage - Extremities Exam Extremities Exam: Full ROM. absent: Pedal Edema - Neurological Exam Neurological Exam: Alert, Awake - Psychiatric Exam Psychiatric exam: Normal Affect, Normal Mood - Skin Skin Exam: Dry, Intact, Normal Color, Warm Assessment and Plan - Assessment and Plan (Free Text) Assessment: 51 year old female with history of Bipolar disorder, Psoriasis, Polysubstance abuse, and Crohn's disease diagnosed on right hemicolectomy pathology ten years ago presenting with abdominal pain and diarrhea. Active treatment of resolved sepsis secondary to vlad-rectal abscess POD 7 (12/08) exploratory laparotomy wwith abscess drainage and diverting colostomy. Abscess culture shows ESBL on Meropenem and pathology showing mucinous adenocarcinoma of colonic origin. No prior EGD or colonoscopy. Plan: >continue meropenem for abscess coverage >ID managing >surgery managing-recent end colostomy >continue regular diet and Ensure supplement >supportive care: pain control >Pain management consult pending >Oncology consult pending- PET scan for further workup >discussed with Dr. Marti- recommends waiting 4 weeks prior to colonoscopy evaluation >outpatient follow up for colonoscopy and EUS <Uli Moreno - Last Filed: 12/15/16 12:53> Objective - Vital Signs/Intake and Output Vital Signs (last 24 hours): Temp Pulse Resp BP Pulse Ox 97.9 F 62 18 102/58 L 97 12/15/16 07:20 12/15/16 09:50 12/15/16 09:50 12/15/16 09:50 12/15/16 09:50 Intake and Output: 12/15/16 12/15/16 06:59 18:59 Intake Total 440 Output Total 15 Balance 425 - Medications Medications: Current Medications Acetaminophen (Tylenol 325mg Tab) 650 mg PO Q6H PRN PRN Reason: Pain, moderate (4-7) Last Admin: 12/08/16 20:36 Dose: 650 mg Al Hydrox/Mg Hydrox/Simethicone (Maalox Plus 30 Ml) 30 ml PO DAILY PRN PRN Reason: Indigestion / Heartburn Clonazepam (Klonopin) 1 mg PO TID [facility] Stop: 12/15/16 18:01 Last Admin: 12/15/16 09:36 Dose: 1 mg Docusate Sodium (Colace) 100 mg PO TID [facility] Last Admin: 12/15/16 09:33 Dose: 100 mg Escitalopram Oxalate (Lexapro) 10 mg PO DAILY [facility] Last Admin: 12/15/16 09:33 Dose: 10 mg Gabapentin (Neurontin) 800 mg PO TID [facility] PRN Reason: Protocol Last Admin: 12/15/16 09:32 Dose: 800 mg Heparin Sodium (Porcine) (Heparin) 5,000 units SC Q12 [facility] PRN Reason: Protocol Last Admin: 12/15/16 09:33 Dose: Not Given Hydrocortisone (Cortizone 1% Cream) 0 gm TOP BID [facility] Last Admin: 12/15/16 09:51 Dose: 1 appl Hydrocortisone/Pramoxine (Proctofoam) 1 gm TOP TID [facility] Last Admin: 12/15/16 09:50 Dose: Not Given Meropenem 1g/NS 100mL IVPB (Meropenem 1g/Ns 100ml Ivpb) 100 mls @ 100 mls/hr IVPB Q8H [facility] Last Admin: 12/15/16 09:31 Dose: 100 mls/hr Ondansetron HCl (Zofran Inj) 4 mg IVP Q8 PRN PRN Reason: Nausea/Vomiting Oxycodone HCl (Oxycontin Extended Release Tab) 60 mg PO Q12 [facility] Last Admin: 12/15/16 09:31 Dose: 60 mg Oxycodone HCl (Oxycodone Immediate Release Tab) 15 mg PO Q4 PRN PRN Reason: Pain, severe (8-10) Last Admin: 12/15/16 11:19 Dose: 15 mg Pantoprazole Sodium (Protonix Inj) 40 mg IVP DAILY [facility] Last Admin: 12/15/16 09:31 Dose: 40 mg Quetiapine Fumarate (Seroquel) 200 mg PO BID [facility] PRN Reason: Protocol Last Admin: 12/15/16 09:32 Dose: 200 mg Simethicone (Mylicon Chew Tab) 80 mg PO [facility] PRN PRN Reason: GI distress Last Admin: 12/09/16 17:12 Dose: 80 mg Zolpidem Tartrate (Ambien) 5 mg PO HS [facility] PRN Reason: Protocol Last Admin: 12/15/16 00:45 Dose: Not Given - Labs Labs: 12/15/16 06:10 12/15/16 06:10 PT 13.4 Seconds (9.9-11.8) H 12/07/16 08:14 INR 1.24 (0.93-1.08) H 12/07/16 08:14 APTT 31.0 Seconds (23.7-30.8) H 12/07/16 08:14 Attending/Attestation - Attestation I have personally seen and examined this patient.: Yes I have fully participated in the care of the patient.: Yes I have reviewed all pertinent clinical information, including history, physical exam and plan: Yes Notes (Text): 12/15/16 12:50 51 year old female with history of Bipolar d/o, Psoriasis, Polysubstance abuse, and Crohn's disease, h/o R hemicolectomy admitted with abdominal pain, found to have vlad-rectal abscess, now s/p exploratory laparotomy with abscess drainage and diverting colostomy, with new diagnosis of mucinous adenocarcinoma. 1. Crohn's disease 2. Mucinous adenocarcinoma Plan: -continue antibiotics per ID -appreciate surgery recs, post op care per them -diet as tolerated -appreciate oncology consultation -needs colonoscopy and possibly rectal EUS as part of staging evaluation -surgery recommending waiting a few weeks prior to endoscopic evaluation to allow healing from surgery -will follow peripherally for now
[2016-12-15 07:23] LABS: ADD MANUAL DIFF? YES; ALB/GLOB RATIO 0.7 (1.1-1.8); ALKALINE PHOSPHATASE 97 U/L (38-133); ALT/SGPT 28 U/L (7-56); AST/SGOT 54 U/L (15-39); BILIRUBIN,TOTAL 0.2 mg/dL (0.2-1.3); BLOOD UREA NITROGEN 8 mg/dL (7-21); CALCIUM 8.6 mg/dL (8.4-10.5); CARBON DIOXIDE 30 mmol/L (21-33); CHLORIDE 101 mmol/L (95-110); GFR AFRICAN-AMERICAN > 60; GLUCOSE,RANDOM 88 mg/dL (70-110); MAGNESIUM 1.8 mg/dL (1.7-2.2); PHOSPHOROUS 3.2 mg/dL (2.5-4.5); POTASSIUM 4.2 mmol/L (3.6-5.0); SODIUM 142 mmol/L (132-148); TOTAL PROTEIN 6.2 g/dL (5.8-8.3)
[2016-12-15] MEDS: oxyCODONE 20 mg ER Tab (oxyCONTIN) PO SCH (09:31)
[2016-12-15] MEDS: Hydrocortisone-Pramoxine 1%-1% Foam(10 gm) TOP SCH ×3 (09:50→17:38)
[2016-12-15] MEDS: Hydrocortisone 1% Cream (30 GM) TOP SCH ×2 (09:51→17:38)
--- NOTE | 2016-12-15 11:02 | CP.PCM.PN ---
Subjective - Date & Time of Evaluation Date of Evaluation: 12/15/16 Time of Evaluation: 10:59 - Subjective Subjective: SURGERY PROGRESS NOTE FOR DR. BOUCHER 51F seen and examined at bedside. Patient is tolerating PO. Admits to ostomy output. Has no complaints. Objective - Vital Signs/Intake and Output Vital Signs (last 24 hours): Temp Pulse Resp BP Pulse Ox 97.9 F 62 18 102/58 L 97 12/15/16 07:20 12/15/16 09:50 12/15/16 09:50 12/15/16 09:50 12/15/16 09:50 Intake and Output: 12/15/16 12/15/16 06:59 18:59 Intake Total 440 Output Total 15 Balance 425 - Medications Medications: Current Medications Acetaminophen (Tylenol 325mg Tab) 650 mg PO Q6H PRN PRN Reason: Pain, moderate (4-7) Last Admin: 12/08/16 20:36 Dose: 650 mg Al Hydrox/Mg Hydrox/Simethicone (Maalox Plus 30 Ml) 30 ml PO DAILY PRN PRN Reason: Indigestion / Heartburn Clonazepam (Klonopin) 1 mg PO TID [facility] Stop: 12/15/16 18:01 Last Admin: 12/15/16 09:36 Dose: 1 mg Docusate Sodium (Colace) 100 mg PO TID [facility] Last Admin: 12/15/16 09:33 Dose: 100 mg Escitalopram Oxalate (Lexapro) 10 mg PO DAILY [facility] Last Admin: 12/15/16 09:33 Dose: 10 mg Gabapentin (Neurontin) 800 mg PO TID [facility] PRN Reason: Protocol Last Admin: 12/15/16 09:32 Dose: 800 mg Heparin Sodium (Porcine) (Heparin) 5,000 units SC Q12 [facility] PRN Reason: Protocol Last Admin: 12/15/16 09:33 Dose: Not Given Hydrocortisone (Cortizone 1% Cream) 0 gm TOP BID [facility] Last Admin: 12/15/16 09:51 Dose: 1 appl Hydrocortisone/Pramoxine (Proctofoam) 1 gm TOP TID [facility] Last Admin: 12/14/16 17:26 Dose: Not Given Meropenem 1g/NS 100mL IVPB (Meropenem 1g/Ns 100ml Ivpb) 100 mls @ 100 mls/hr IVPB Q8H [facility] Last Admin: 12/15/16 09:31 Dose: 100 mls/hr Ondansetron HCl (Zofran Inj) 4 mg IVP Q8 PRN PRN Reason: Nausea/Vomiting Oxycodone HCl (Oxycontin Extended Release Tab) 60 mg PO Q12 [facility] Last Admin: 12/15/16 09:31 Dose: 60 mg Oxycodone HCl (Oxycodone Immediate Release Tab) 15 mg PO Q4 PRN PRN Reason: Pain, severe (8-10) Pantoprazole Sodium (Protonix Inj) 40 mg IVP DAILY [facility] Last Admin: 12/15/16 09:31 Dose: 40 mg Quetiapine Fumarate (Seroquel) 200 mg PO BID [facility] PRN Reason: Protocol Last Admin: 12/15/16 09:32 Dose: 200 mg Simethicone (Mylicon Chew Tab) 80 mg PO [facility] PRN PRN Reason: GI distress Last Admin: 12/09/16 17:12 Dose: 80 mg Zolpidem Tartrate (Ambien) 5 mg PO HS [facility] PRN Reason: Protocol Last Admin: 12/15/16 00:45 Dose: Not Given - Labs Labs: 12/15/16 06:10 12/15/16 06:10 PT 13.4 Seconds (9.9-11.8) H 12/07/16 08:14 INR 1.24 (0.93-1.08) H 12/07/16 08:14 APTT 31.0 Seconds (23.7-30.8) H 12/07/16 08:14 - Constitutional Appears: Non-toxic, No Acute Distress - Head Exam Head Exam: ATRAUMATIC - Respiratory Exam Respiratory Exam: Clear to Ausculation Bilateral, NORMAL BREATHING PATTERN - Cardiovascular Exam Cardiovascular Exam: REGULAR RHYTHM, +S1, +S2 - GI/Abdominal Exam GI & Abdominal Exam: Soft, Tenderness. absent: Distended, Firm, Guarding, Rigid , Rebound Additional comments: Ostomy in place, pink and patent. Incisions CDI. Jean Claude drain minimal output serosang. - Rectal Exam Additional comments: abscess cavity decreasing in size, packing in place - Neurological Exam Neurological Exam: Alert, Awake - Skin Skin Exam: Dry Assessment and Plan - Assessment and Plan (Free Text) Assessment: 51F w. perirectal abscess and stricture of rectum s/p diverting end colostomy w / drainage of perirectal phlegmon, POD#8 - ostomy care - jean claude drain care - pain management consulted - c/w daily packing - regular diet - encourage OOB, ambulation, and IS use - Oncology is following patient: may need port for chemo - GI/DVT prophylaxis Further recs discuss with Dr. Kaia Coburn, PGY1
[2016-12-15 11:19] LABS: NEUTROPHIL 65 % (50.0-70.0)
[2016-12-15 11:20] LABS: ATYPICAL LYMPHOCYTE 2 % (0.0-0.0); EOSINOPHIL 2 % (0.0-3.0); HYPOCHROMIA 1+; PLATELET ESTIMATE HIGH (NORMAL); POIKILOCYTOSIS SLIGHT; POLYCHROMASIA SLIGHT
[2016-12-15 11:21] LABS: ANISOCYTOSIS 1+; OVALOCYTES SLIGHT; TEAR DROP CELLS SLIGHT
--- NOTE | 2016-12-15 13:03 | CP.PCM.PN ---
<NicoletteJosiah - Last Filed: 12/15/16 12:58> Subjective - Date & Time of Evaluation Date of Evaluation: 12/15/16 Time of Evaluation: 07:55 - Subjective Subjective: PGY-1 Medicine Progress Note for Dr. Haley Patient seen and examined at bedside. She is POD #8 of exploratory laparotomy perirectal abscess I&D, removal of phlegmon, diverting colostomy. She states abdominal pain is 7/10 still and needs better pain control. She reports that she need to speak to pain management physician. She is able to tolerate her diet well and colostomy is producing soft, brown stool. She denies any fever, chills, chest pain, SOB, palpitations, nausea, vomiting, diarrhea, or incontinence. Objective - Vital Signs/Intake and Output Vital Signs (last 24 hours): Temp Pulse Resp BP Pulse Ox 97.9 F 62 18 102/58 L 97 12/15/16 07:20 12/15/16 09:50 12/15/16 09:50 12/15/16 09:50 12/15/16 09:50 Intake and Output: 12/15/16 12/15/16 06:59 18:59 Intake Total 440 Output Total 15 Balance 425 - Medications Medications: Current Medications Acetaminophen (Tylenol 325mg Tab) 650 mg PO Q6H PRN PRN Reason: Pain, moderate (4-7) Last Admin: 12/08/16 20:36 Dose: 650 mg Al Hydrox/Mg Hydrox/Simethicone (Maalox Plus 30 Ml) 30 ml PO DAILY PRN PRN Reason: Indigestion / Heartburn Clonazepam (Klonopin) 1 mg PO TID [facility] Stop: 12/15/16 18:01 Last Admin: 12/15/16 09:36 Dose: 1 mg Docusate Sodium (Colace) 100 mg PO TID [facility] Last Admin: 12/15/16 09:33 Dose: 100 mg Escitalopram Oxalate (Lexapro) 10 mg PO DAILY [facility] Last Admin: 12/15/16 09:33 Dose: 10 mg Gabapentin (Neurontin) 800 mg PO TID [facility] PRN Reason: Protocol Last Admin: 12/15/16 09:32 Dose: 800 mg Heparin Sodium (Porcine) (Heparin) 5,000 units SC Q12 [facility] PRN Reason: Protocol Last Admin: 12/15/16 09:33 Dose: Not Given Hydrocortisone (Cortizone 1% Cream) 0 gm TOP BID [facility] Last Admin: 12/15/16 09:51 Dose: 1 appl Hydrocortisone/Pramoxine (Proctofoam) 1 gm TOP TID [facility] Last Admin: 12/15/16 09:50 Dose: Not Given Meropenem 1g/NS 100mL IVPB (Meropenem 1g/Ns 100ml Ivpb) 100 mls @ 100 mls/hr IVPB Q8H [facility] Last Admin: 12/15/16 09:31 Dose: 100 mls/hr Ondansetron HCl (Zofran Inj) 4 mg IVP Q8 PRN PRN Reason: Nausea/Vomiting Oxycodone HCl (Oxycontin Extended Release Tab) 60 mg PO Q12 [facility] Last Admin: 12/15/16 09:31 Dose: 60 mg Oxycodone HCl (Oxycodone Immediate Release Tab) 15 mg PO Q4 PRN PRN Reason: Pain, severe (8-10) Last Admin: 12/15/16 11:19 Dose: 15 mg Pantoprazole Sodium (Protonix Inj) 40 mg IVP DAILY [facility] Last Admin: 12/15/16 09:31 Dose: 40 mg Quetiapine Fumarate (Seroquel) 200 mg PO BID [facility] PRN Reason: Protocol Last Admin: 12/15/16 09:32 Dose: 200 mg Simethicone (Mylicon Chew Tab) 80 mg PO [facility] PRN PRN Reason: GI distress Last Admin: 12/09/16 17:12 Dose: 80 mg Zolpidem Tartrate (Ambien) 5 mg PO [facility] PRN Reason: Protocol Last Admin: 12/15/16 00:45 Dose: Not Given - Labs Labs: 12/15/16 06:10 12/15/16 06:10 PT 13.4 Seconds (9.9-11.8) H 12/07/16 08:14 INR 1.24 (0.93-1.08) H 12/07/16 08:14 APTT 31.0 Seconds (23.7-30.8) H 12/07/16 08:14 - Constitutional Appears: No Acute Distress - Head Exam Head Exam: ATRAUMATIC, NORMOCEPHALIC - Eye Exam Eye Exam: EOMI, Normal appearance Pupil Exam: PERRL - ENT Exam ENT Exam: Mucous Membranes Moist - Neck Exam Neck Exam: Normal Inspection - Respiratory Exam Respiratory Exam: Clear to Ausculation Bilateral, NORMAL BREATHING PATTERN - Cardiovascular Exam Cardiovascular Exam: REGULAR RHYTHM, +S1, +S2 - GI/Abdominal Exam GI & Abdominal Exam: Soft, Tenderness, Normal Bowel Sounds. absent: Distended, Firm, Guarding, Rebound Additional comments: colostomy site draining soft, brown stool in bag AL[place]INA drain in place draining minimally - Extremities Exam Extremities Exam: Normal Capillary Refill - Back Exam Back Exam: absent: CVA tenderness (L), CVA tenderness (R) - Neurological Exam Neurological Exam: Alert, Awake, CN II-XII Intact, Oriented x3 - Psychiatric Exam Psychiatric exam: Normal Affect, Normal Mood - Skin Skin Exam: Dry, Intact, Normal Color, Warm Assessment and Plan - Assessment and Plan (Free Text) Plan: 51 F with PMHx of Crohn's disease, perirectal abscess, Bipolar disorder, Drug abuse, Opiate dependence and non-compliance with follow up here for evaluation of abdominal pain. S/p exploratory laparotomy, perirectal abscess I&D, removal of phlegmon, diverting colostomy 1. Abd Pain CT Abd/Pelvis - evidence of pelvic cyst w/lymphadenopathy. Perirectal abscess. Diffuse constipation (see full report) IR perirectal abscess drainage 12/[address] Metcalf Cultures growing ESBL Contact precautions ID following, Dr. Mcneill, help appreciated GI reconsulted for possible colonoscopy and recs Continue Meropenam 1 gm IVPB Q8H Surgery consulted, Dr. Marti, help appreciated s/p perirectal abscess I&D POD #10 s/p perirectal abscess i&D, removal of phlegmon, diverting colostomy on POD # 8 1 [place] Drain removed, 2nd is still in place - minimal drainage Pathology report: mucinous adenocarcinoma of colon Heme/Onc consult, Dr. Bryant, help appreciated Oxycodone 15 mg PO Q4H PRN Oxycontin 60 mg PO Q12H Gabapentin 800 mg PO TID Pain management consult, Dr. Trevino, help appreciated 2. Hx of Bipolar disorder Continue home meds Psych eval requested 3. Hx of drug abuse monitor for withdrawal Chronic opioid use/abuse. possible illicit drug use in the hospital overnight on 12/06 Cessation counseling 4. PPx Protonix 40mg IV Daily Incentive Spirometer SCDs PT/OT <Cristina Haley - Last Filed: 12/15/16 16:42> Objective - Vital Signs/Intake and Output Vital Signs (last 24 hours): Temp Pulse Resp BP Pulse Ox 98 F 57 L 20 104/58 L 97 12/15/16 15:39 12/15/16 15:39 12/15/16 15:39 12/15/16 15:39 12/15/16 15:39 Intake and Output: 12/15/16 12/15/16 06:59 18:59 Intake Total 440 960 Output Total 15 Balance 425 960 - Medications Medications: Current Medications Acetaminophen (Tylenol 325mg Tab) 650 mg PO Q6H PRN PRN Reason: Pain, moderate (4-7) Last Admin: 12/08/16 20:36 Dose: 650 mg Al Hydrox/Mg Hydrox/Simethicone (Maalox Plus 30 Ml) 30 ml PO DAILY PRN PRN Reason: Indigestion / Heartburn Clonazepam (Klonopin) 1 mg PO TID [facility] Stop: 12/15/16 18:01 Last Admin: 12/15/16 14:28 Dose: 1 mg Docusate Sodium (Colace) 100 mg PO TID [facility] Last Admin: 12/15/16 14:29 Dose: 100 mg Escitalopram Oxalate (Lexapro) 10 mg PO DAILY [facility] Last Admin: 12/15/16 09:33 Dose: 10 mg Gabapentin (Neurontin) 800 mg PO TID [facility] PRN Reason: Protocol Last Admin: 12/15/16 15:37 Dose: 800 mg Heparin Sodium (Porcine) (Heparin) 5,000 units SC Q12 [facility] PRN Reason: Protocol Last Admin: 12/15/16 09:33 Dose: Not Given Hydrocortisone (Cortizone 1% Cream) 0 gm TOP BID [facility] Last Admin: 12/15/16 09:51 Dose: 1 appl Hydrocortisone/Pramoxine (Proctofoam) 1 gm TOP TID [facility] Last Admin: 12/15/16 09:50 Dose: Not Given Meropenem 1g/NS 100mL IVPB (Meropenem 1g/Ns 100ml Ivpb) 100 mls @ 100 mls/hr IVPB Q8H [facility] Last Admin: 12/15/16 09:31 Dose: 100 mls/hr Ondansetron HCl (Zofran Inj) 4 mg IVP Q8 PRN PRN Reason: Nausea/Vomiting Oxycodone HCl (Oxycontin Extended Release Tab) 60 mg PO Q12 [facility] Last Admin: 12/15/16 09:31 Dose: 60 mg Oxycodone HCl (Oxycodone Immediate Release Tab) 15 mg PO Q4 PRN PRN Reason: Pain, severe (8-10) Last Admin: 12/15/16 15:31 Dose: 15 mg Pantoprazole Sodium (Protonix Inj) 40 mg IVP DAILY [facility] Last Admin: 12/15/16 09:31 Dose: 40 mg Quetiapine Fumarate (Seroquel) 200 mg PO BID [facility] PRN Reason: Protocol Last Admin: 12/15/16 09:32 Dose: 200 mg Simethicone (Mylicon Chew Tab) 80 mg PO [facility] PRN PRN Reason: GI distress Last Admin: 12/09/16 17:12 Dose: 80 mg Zolpidem Tartrate (Ambien) 5 mg PO HS [facility] PRN Reason: Protocol Last Admin: 12/15/16 00:45 Dose: Not Given - Labs Labs: 12/15/16 06:10 12/15/16 06:10 PT 13.4 Seconds (9.9-11.8) H 12/07/16 08:14 INR 1.24 (0.93-1.08) H 12/07/16 08:14 APTT 31.0 Seconds (23.7-30.8) H 12/07/16 08:14 Assessment and Plan - Assessment and Plan (Free Text) Assessment: attending note; Patient seen and examined with resident. Patient is a 51 year old female with history of Crohn's disease s/p right hemicolectomy, asthma, psoriasis, anxiety, depression, perirectal abscess, Bipolar disorder, Drug abuse, Opiate dependence and non-compliance with follow up here for evaluation of abdominal pain and found to have sepsis secondary to peirectal abscess s/p IR guided drainage and s/p ex lap, removal of phlegmon, diverting colostomy. POD # 8. seen by surgery today. has one drain in place. [place] in place. Colostomy draining Wound is growing ESBL producing multi drug resistant E. coli now on meropenem. 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 seen by DR. Briseno today. Needs colonoscopy in 4 weeks. Needs PET scan as outpatient. GI consult appreciated for possible colonoscopy/ RECTal EUS in the future. Opiate abuse; OxyContin immediate release dosage increased. Pain management evaluation requested. Bipolar disorder; continue psych medication. case discussed with health and social care teacher and disease case manager rn for discharge planning. Upon discharge patient will follow-up with PMD of choice. Attending/Attestation - Attestation I have personally seen and examined this patient.: Yes I have fully participated in the care of the patient.: Yes I have reviewed all pertinent clinical information, including history, physical exam and plan: Yes
[2016-12-15 15:40] VITALS: RESP 20
--- NOTE | 2016-12-15 18:00 | CP.PCM.PN ---
Subjective - Date & Time of Evaluation Date of Evaluation: 12/15/16 Time of Evaluation: 10:55 - Subjective Subjective: Less abdominal pain, no fevers, eating regular diet. Objective - Vital Signs/Intake and Output Vital Signs (last 24 hours): Temp Pulse Resp BP Pulse Ox 98 F 57 L 20 104/58 L 97 12/15/16 15:39 12/15/16 15:39 12/15/16 15:39 12/15/16 15:39 12/15/16 15:39 Intake and Output: 12/15/16 12/15/16 06:59 18:59 Intake Total 440 960 Output Total 15 Balance 425 960 - Medications Medications: Current Medications Acetaminophen (Tylenol 325mg Tab) 650 mg PO Q6H PRN PRN Reason: Pain, moderate (4-7) Last Admin: 12/08/16 20:36 Dose: 650 mg Al Hydrox/Mg Hydrox/Simethicone (Maalox Plus 30 Ml) 30 ml PO DAILY PRN PRN Reason: Indigestion / Heartburn Clonazepam (Klonopin) 1 mg PO TID [facility] Stop: 12/15/16 18:01 Last Admin: 12/15/16 17:28 Dose: 1 mg Docusate Sodium (Colace) 100 mg PO TID [facility] Last Admin: 12/15/16 17:28 Dose: 100 mg Escitalopram Oxalate (Lexapro) 10 mg PO DAILY [facility] Last Admin: 12/15/16 09:33 Dose: 10 mg Gabapentin (Neurontin) 800 mg PO TID [facility] PRN Reason: Protocol Last Admin: 12/15/16 17:45 Dose: 800 mg Heparin Sodium (Porcine) (Heparin) 5,000 units SC Q12 [facility] PRN Reason: Protocol Last Admin: 12/15/16 09:33 Dose: Not Given Hydrocortisone (Cortizone 1% Cream) 0 gm TOP BID [facility] Last Admin: 12/15/16 17:38 Dose: 1 appl Hydrocortisone/Pramoxine (Proctofoam) 1 gm TOP TID [facility] Last Admin: 12/15/16 17:38 Dose: Not Given Meropenem 1g/NS 100mL IVPB (Meropenem 1g/Ns 100ml Ivpb) 100 mls @ 100 mls/hr IVPB Q8H [facility] Last Admin: 12/15/16 17:14 Dose: 100 mls/hr Ondansetron HCl (Zofran Inj) 4 mg IVP Q8 PRN PRN Reason: Nausea/Vomiting Oxycodone HCl (Oxycontin Extended Release Tab) 60 mg PO Q12 [facility] Last Admin: 12/15/16 09:31 Dose: 60 mg Oxycodone HCl (Oxycodone Immediate Release Tab) 15 mg PO Q4 PRN PRN Reason: Pain, severe (8-10) Last Admin: 12/15/16 15:31 Dose: 15 mg Pantoprazole Sodium (Protonix Inj) 40 mg IVP DAILY [facility] Last Admin: 12/15/16 09:31 Dose: 40 mg Quetiapine Fumarate (Seroquel) 200 mg PO BID [facility] PRN Reason: Protocol Last Admin: 12/15/16 17:45 Dose: 200 mg Simethicone (Mylicon Chew Tab) 80 mg PO [facility] PRN PRN Reason: GI distress Last Admin: 12/09/16 17:12 Dose: 80 mg Zolpidem Tartrate (Ambien) 5 mg PO HS [facility] PRN Reason: Protocol Last Admin: 12/15/16 00:45 Dose: Not Given - Labs Labs: 12/15/16 06:10 12/15/16 06:10 PT 13.4 Seconds (9.9-11.8) H 12/07/16 08:14 INR 1.24 (0.93-1.08) H 12/07/16 08:14 APTT 31.0 Seconds (23.7-30.8) H 12/07/16 08:14 - Constitutional Appears: Non-toxic, No Acute Distress - Head Exam Head Exam: NORMAL INSPECTION - Respiratory Exam Respiratory Exam: Decreased Breath Sounds - Cardiovascular Exam Cardiovascular Exam: +S1, +S2 - GI/Abdominal Exam GI & Abdominal Exam: Soft. absent: Tenderness Assessment and Plan - Assessment and Plan (Free Text) Plan: Assessment Sepsis secondary to Pelvic abscess, probably related to the patient's Crohn's disease, S/P exploratory laparotomy, diverting colostomy and surgical drainage of the abscess POD POD #7; S/P CT-guided drainage POD #12, growing ESBL- producing multidrug-resistant E. coli; S/P drainage of perirectal abscess with note of mucinous adenocarcinoma asthma history of pneumonia eczema history of psoriasis anxiety history of depression bipolar disorder history of alcohol abuse history of right hemicolectomy history of perirectal abscess Plan continue Meropenem and will continue to monitor clinically; will continue to monitor fever curve and amount of abdominal drainage
[2016-12-16] MEDS: oxyCODONE 20 mg ER Tab (oxyCONTIN) PO SCH ×2 (01:01→10:12)
[2016-12-16] MEDS: Meropenem 1g/NS 100mL IVPB 100 ML IVPB SCH ×3 (01:40→20:06)
[2016-12-16] MEDS: oxyCODONE 5 mg Immediate Release Tab PO PRN ×3 (02:55→13:34)
[2016-12-16 07:08] LABS: ADD MANUAL DIFF? NO
[2016-12-16 07:20] LABS: BASO # 0.04 K/mm3 (0.0-2.0); BASO % 0.5 % (0.0-3.0); EOS # 0.4 (0.0-0.7); EOS % 5.4 % (1.5-5.0); GRAN % 66.4 % (50.0-68.0); HEMATOCRIT 28.2 % (36.0-48.0); LYMPH # 1.3 (1.2-3.4); LYMPH % 16.9 % (22.0-35.0); MEAN CELL VOLUME 88.1 fL (80.0-105.0); MEAN CORPUSCULAR HEMOGLOBIN 27.8 pg (25.0-35.0); MEAN CORPUSCULAR HGB CONC 31.6 g/dl (31.0-37.0); MONO # 0.8 (0.1-0.6); MONO % 10.8 % (1.0-6.0); PLATELET COUNT 459 10^3/uL (120.0-450.0); RED CELL DISTRIBUTION WIDTH 16.6 % (11.5-14.5); WHITE BLOOD COUNT 7.4 10^3/ul (4.5-11.0)
[2016-12-16 07:35] LABS: ALB/GLOB RATIO 0.7 (1.1-1.8); ALKALINE PHOSPHATASE 88 U/L (38-133); ALT/SGPT 53 U/L (7-56); AST/SGOT 73 U/L (15-39); BILIRUBIN,TOTAL 0.5 mg/dL (0.2-1.3); BLOOD UREA NITROGEN 10 mg/dL (7-21); CALCIUM 8.6 mg/dL (8.4-10.5); CARBON DIOXIDE 33 mmol/L (21-33); CHLORIDE 101 mmol/L (98-107); GFR AFRICAN-AMERICAN > 60; GLUCOSE,RANDOM 103 mg/dL (70-110); MAGNESIUM 1.7 mg/dL (1.7-2.2); PHOSPHOROUS 3.5 mg/dL (2.5-4.5); POTASSIUM 3.7 mmol/L (3.6-5.0); SODIUM 138 mmol/L (132-148); TOTAL PROTEIN 6.2 g/dL (5.8-8.3)
--- NOTE | 2016-12-16 09:30 | CP.PCM.PN ---
<NicoletteJosiah - Last Filed: 12/16/16 14:10> Subjective - Date & Time of Evaluation Date of Evaluation: 12/16/16 Time of Evaluation: 07:45 - Subjective Subjective: PGY-1 Medicine Progress Note for Dr. Haley Patient seen and examined at bedside. She is POD #9 of exploratory laparotomy perirectal abscess I&D, removal of phlegmon, diverting colostomy. She states abdominal pain is better than yesterday. She states she has learned how to care for her colostomy properly. She is able to tolerate her diet well and colostomy is producing soft, brown stool. She reports that Dr. Marti told her that every other staple will be removed today. Denies any fever,chills, chest pain, SOB, palpitations, nausea, vomiting, diarrhea, or incontinence. Objective - Vital Signs/Intake and Output Vital Signs (last 24 hours): Temp Pulse Resp BP Pulse Ox 98.3 F 60 20 98/69 L 97 12/16/16 07:30 12/16/16 07:30 12/16/16 07:30 12/16/16 07:30 12/16/16 07:30 Intake and Output: 12/16/16 12/16/16 06:59 18:59 Intake Total 900 Balance 900 - Medications Medications: Current Medications Acetaminophen (Tylenol 325mg Tab) 650 mg PO Q6H PRN PRN Reason: Pain, moderate (4-7) Last Admin: 12/08/16 20:36 Dose: 650 mg Al Hydrox/Mg Hydrox/Simethicone (Maalox Plus 30 Ml) 30 ml PO DAILY PRN PRN Reason: Indigestion / Heartburn Docusate Sodium (Colace) 100 mg PO TID [facility] Last Admin: 12/15/16 17:28 Dose: 100 mg Escitalopram Oxalate (Lexapro) 10 mg PO DAILY [facility] Last Admin: 12/15/16 09:33 Dose: 10 mg Gabapentin (Neurontin) 800 mg PO TID [facility] PRN Reason: Protocol Last Admin: 12/15/16 17:45 Dose: 800 mg Heparin Sodium (Porcine) (Heparin) 5,000 units SC Q12 [facility] PRN Reason: Protocol Last Admin: 12/16/16 01:01 Dose: Not Given Hydrocortisone (Cortizone 1% Cream) 0 gm TOP BID [facility] Last Admin: 12/15/16 17:38 Dose: 1 appl Hydrocortisone/Pramoxine (Proctofoam) 1 gm TOP TID [facility] Last Admin: 12/15/16 17:38 Dose: Not Given Meropenem 1g/NS 100mL IVPB (Meropenem 1g/Ns 100ml Ivpb) 100 mls @ 100 mls/hr IVPB Q8H [facility] Last Admin: 12/16/16 01:40 Dose: 100 mls/hr Ondansetron HCl (Zofran Inj) 4 mg IVP Q8 PRN PRN Reason: Nausea/Vomiting Oxycodone HCl (Oxycontin Extended Release Tab) 60 mg PO Q12 [facility] Last Admin: 12/16/16 01:01 Dose: Not Given Oxycodone HCl (Oxycodone Immediate Release Tab) 15 mg PO Q4 PRN PRN Reason: Pain, severe (8-10) Last Admin: 12/16/16 08:21 Dose: 15 mg Pantoprazole Sodium (Protonix Inj) 40 mg IVP DAILY [facility] Last Admin: 12/15/16 09:31 Dose: 40 mg Quetiapine Fumarate (Seroquel) 200 mg PO BID [facility] PRN Reason: Protocol Last Admin: 12/15/16 17:45 Dose: 200 mg Simethicone (Mylicon Chew Tab) 80 mg PO [facility] PRN PRN Reason: GI distress Last Admin: 12/09/16 17:12 Dose: 80 mg Zolpidem Tartrate (Ambien) 5 mg PO [facility] PRN Reason: Protocol Last Admin: 12/16/16 01:00 Dose: Not Given - Labs Labs: 12/16/16 06:45 12/16/16 06:45 PT 13.4 Seconds (9.9-11.8) H 12/07/16 08:14 INR 1.24 (0.93-1.08) H 12/07/16 08:14 APTT 31.0 Seconds (23.7-30.8) H 12/07/16 08:14 - Constitutional Appears: No Acute Distress - Head Exam Head Exam: ATRAUMATIC, NORMOCEPHALIC - Eye Exam Eye Exam: EOMI, Normal appearance Pupil Exam: PERRL - ENT Exam ENT Exam: Mucous Membranes Moist - Neck Exam Neck Exam: Normal Inspection - Respiratory Exam Respiratory Exam: Clear to Ausculation Bilateral, NORMAL BREATHING PATTERN - Cardiovascular Exam Cardiovascular Exam: REGULAR RHYTHM, +S1, +S2 - GI/Abdominal Exam GI & Abdominal Exam: Soft, Tenderness, Normal Bowel Sounds. absent: Distended, Firm, Guarding, Rebound Additional comments: colostomy site pink without erythema draining soft, brown stool in bag - Extremities Exam Extremities Exam: Normal Capillary Refill. absent: Calf Tenderness - Back Exam Back Exam: absent: CVA tenderness (L), CVA tenderness (R) - Neurological Exam Neurological Exam: Alert, Awake, CN II-XII Intact, Normal Gait, Oriented x3 - Psychiatric Exam Psychiatric exam: Normal Affect, Normal Mood - Skin Skin Exam: Dry, Intact, Normal Color, Warm Assessment and Plan - Assessment and Plan (Free Text) Plan: 51 F with PMHx of Crohn's disease, perirectal abscess, Bipolar disorder, Drug abuse, Opiate dependence and non-compliance with follow up here for evaluation of abdominal pain. 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 1. Mucinous Adenocarcinoma of colon CT Abd/Pelvis - evidence of pelvic cyst w/lymphadenopathy. Perirectal abscess. Diffuse constipation (see full report) IR perirectal abscess drainage 12/[address] Metcalf Cultures growing ESBL Contact precautions ID following, Dr. Mcneill, help appreciated GI reconsulted for possible colonoscopy and recs Continue Meropenam 1 gm IVPB Q8H Surgery consulted, Dr. Marti, help appreciated s/p perirectal abscess I&D POD #11 s/p perirectal abscess i&D, removal of phlegmon, diverting colostomy on POD # 9 both [facility] Drains removed Every other staple will be removed today then the rest a few days later Pathology report: mucinous adenocarcinoma of colon Heme/Onc consult, Dr. Bryant, help appreciated Oxycodone 15 mg PO Q4H PRN Oxycontin 60 mg PO Q12H Gabapentin 800 mg PO TID Pain management consult, Dr. Trevino, help appreciated 2. Hx of Bipolar disorder Continue home meds Psych eval requested 3. Hx of drug abuse monitor for withdrawal Chronic opioid use/abuse. possible illicit drug use in the hospital overnight on 12/06 Cessation counseling 4. PPx Protonix 40 mg IVP Daily Incentive Spirometer SCDs PT/OT <Cristina Haley - Last Filed: 12/16/16 15:34> Objective - Vital Signs/Intake and Output Vital Signs (last 24 hours): Temp Pulse Resp BP Pulse Ox 98.3 F 60 20 98/69 L 97 12/16/16 07:30 12/16/16 07:30 12/16/16 07:30 12/16/16 07:30 12/16/16 07:30 Intake and Output: 12/16/16 12/16/16 06:59 18:59 Intake Total 900 1050 Balance 900 1050 - Medications Medications: Current Medications Acetaminophen (Tylenol 325mg Tab) 650 mg PO Q6H PRN PRN Reason: Pain, moderate (4-7) Last Admin: 12/08/16 20:36 Dose: 650 mg Al Hydrox/Mg Hydrox/Simethicone (Maalox Plus 30 Ml) 30 ml PO DAILY PRN PRN Reason: Indigestion / Heartburn Docusate Sodium (Colace) 100 mg PO TID [facility] Last Admin: 12/16/16 13:35 Dose: 100 mg Escitalopram Oxalate (Lexapro) 10 mg PO DAILY [facility] Last Admin: 12/16/16 10:13 Dose: 10 mg Gabapentin (Neurontin) 800 mg PO TID [facility] PRN Reason: Protocol Last Admin: 12/16/16 13:35 Dose: 800 mg Heparin Sodium (Porcine) (Heparin) 5,000 units SC Q12 [facility] PRN Reason: Protocol Last Admin: 12/16/16 10:20 Dose: Not Given Hydrocortisone (Cortizone 1% Cream) 0 gm TOP BID [facility] Last Admin: 12/16/16 10:15 Dose: 1 appl Hydrocortisone/Pramoxine (Proctofoam) 1 gm TOP TID [facility] Last Admin: 12/16/16 10:14 Dose: Not Given Meropenem 1g/NS 100mL IVPB (Meropenem 1g/Ns 100ml Ivpb) 100 mls @ 100 mls/hr IVPB Q8H [facility] Last Admin: 12/16/16 10:14 Dose: Not Given Ondansetron HCl (Zofran Inj) 4 mg IVP Q8 PRN PRN Reason: Nausea/Vomiting Oxycodone HCl (Oxycontin Extended Release Tab) 60 mg PO Q12 [facility] Last Admin: 12/16/16 10:12 Dose: 60 mg Oxycodone HCl (Oxycodone Immediate Release Tab) 15 mg PO Q4 PRN PRN Reason: Pain, severe (8-10) Last Admin: 12/16/16 13:34 Dose: 15 mg Pantoprazole Sodium (Protonix Inj) 40 mg IVP DAILY [facility] Last Admin: 12/16/16 10:15 Dose: Not Given Quetiapine Fumarate (Seroquel) 200 mg PO BID [facility] PRN Reason: Protocol Last Admin: 12/16/16 10:14 Dose: 200 mg Simethicone (Mylicon Chew Tab) 80 mg PO [facility] PRN PRN Reason: GI distress Last Admin: 12/09/16 17:12 Dose: 80 mg Zolpidem Tartrate (Ambien) 5 mg PO HS [facility] PRN Reason: Protocol Last Admin: 12/16/16 01:00 Dose: Not Given - Labs Labs: 12/16/16 06:45 12/16/16 06:45 PT 13.4 Seconds (9.9-11.8) H 12/07/16 08:14 INR 1.24 (0.93-1.08) H 12/07/16 08:14 APTT 31.0 Seconds (23.7-30.8) H 12/07/16 08:14 Assessment and Plan - Assessment and Plan (Free Text) Assessment: attending note; Patient seen and examined with resident. Patient is a 51 year old female with history of Crohn's disease s/p right hemicolectomy, asthma, psoriasis, anxiety, depression, perirectal abscess, Bipolar disorder, Drug abuse, Opiate dependence and non-compliance with follow up here for evaluation of abdominal pain and found to have sepsis secondary to peirectal abscess s/p IR guided drainage and s/p ex lap, removal of phlegmon, diverting colostomy. POD # 9. seen by surgery today. drain removed. anna in place. Colostomy care training in progress. 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 seen by DR. Briseno yesterday. Needs colonoscopy in 4 weeks. Needs PET scan as outpatient. GI consult appreciated for possible outpatient colonoscopy. Opiate abuse; OxyContin immediate release dosage increased. Pain management evaluation requested. Bipolar disorder; continue psych medication. case discussed with director of social services and housing case manager for discharge planning. Upon discharge patient will follow-up with PMD Dr. Chung. Attending/Attestation - Attestation I have personally seen and examined this patient.: Yes I have fully participated in the care of the patient.: Yes I have reviewed all pertinent clinical information, including history, physical exam and plan: Yes
[2016-12-16] MEDS: Hydrocortisone-Pramoxine 1%-1% Foam(10 gm) TOP SCH ×3 (10:14→18:07)
[2016-12-16] MEDS: Hydrocortisone 1% Cream (30 GM) TOP SCH ×2 (10:15→19:06)
--- NOTE | 2016-12-16 12:32 | CP.PCM.PN ---
<Nick Luna - Last Filed: 12/16/16 12:33> Subjective - Date & Time of Evaluation Date of Evaluation: 12/16/16 Time of Evaluation: 07:00 - Subjective Subjective: Surgery Note for DR. Marti: Pt seen and examined at bedside. No acute events overnight. She is tolerating PO. Ambulating. Admits to ostomy output. Has no complaints at this time. No fevers, chills, n/v/d or abd pain. Objective - Vital Signs/Intake and Output Vital Signs (last 24 hours): Temp Pulse Resp BP Pulse Ox 98.3 F 60 20 98/69 L 97 12/16/16 07:30 12/16/16 07:30 12/16/16 07:30 12/16/16 07:30 12/16/16 07:30 Intake and Output: 12/16/16 12/16/16 06:59 18:59 Intake Total 900 750 Balance 900 750 - Medications Medications: Current Medications Acetaminophen (Tylenol 325mg Tab) 650 mg PO Q6H PRN PRN Reason: Pain, moderate (4-7) Last Admin: 12/08/16 20:36 Dose: 650 mg Al Hydrox/Mg Hydrox/Simethicone (Maalox Plus 30 Ml) 30 ml PO DAILY PRN PRN Reason: Indigestion / Heartburn Docusate Sodium (Colace) 100 mg PO TID [facility] Last Admin: 12/16/16 10:13 Dose: 100 mg Escitalopram Oxalate (Lexapro) 10 mg PO DAILY [facility] Last Admin: 12/16/16 10:13 Dose: 10 mg Gabapentin (Neurontin) 800 mg PO TID [facility] PRN Reason: Protocol Last Admin: 12/16/16 10:13 Dose: 800 mg Heparin Sodium (Porcine) (Heparin) 5,000 units SC Q12 [facility] PRN Reason: Protocol Last Admin: 12/16/16 10:20 Dose: Not Given Hydrocortisone (Cortizone 1% Cream) 0 gm TOP BID [facility] Last Admin: 12/16/16 10:15 Dose: 1 appl Hydrocortisone/Pramoxine (Proctofoam) 1 gm TOP TID [facility] Last Admin: 12/16/16 10:14 Dose: Not Given Meropenem 1g/NS 100mL IVPB (Meropenem 1g/Ns 100ml Ivpb) 100 mls @ 100 mls/hr IVPB Q8H [facility] Last Admin: 12/16/16 10:14 Dose: Not Given Ondansetron HCl (Zofran Inj) 4 mg IVP Q8 PRN PRN Reason: Nausea/Vomiting Oxycodone HCl (Oxycontin Extended Release Tab) 60 mg PO Q12 [facility] Last Admin: 12/16/16 10:12 Dose: 60 mg Oxycodone HCl (Oxycodone Immediate Release Tab) 15 mg PO Q4 PRN PRN Reason: Pain, severe (8-10) Last Admin: 12/16/16 08:21 Dose: 15 mg Pantoprazole Sodium (Protonix Inj) 40 mg IVP DAILY [facility] Last Admin: 12/16/16 10:15 Dose: Not Given Quetiapine Fumarate (Seroquel) 200 mg PO BID [facility] PRN Reason: Protocol Last Admin: 12/16/16 10:14 Dose: 200 mg Simethicone (Mylicon Chew Tab) 80 mg PO [facility] PRN PRN Reason: GI distress Last Admin: 12/09/16 17:12 Dose: 80 mg Zolpidem Tartrate (Ambien) 5 mg PO HS [facility] PRN Reason: Protocol Last Admin: 12/16/16 01:00 Dose: Not Given - Labs Labs: 12/16/16 06:45 12/16/16 06:45 PT 13.4 Seconds (9.9-11.8) H 12/07/16 08:14 INR 1.24 (0.93-1.08) H 12/07/16 08:14 APTT 31.0 Seconds (23.7-30.8) H 12/07/16 08:14 - Constitutional Appears: No Acute Distress - ENT Exam ENT Exam: Mucous Membranes Moist - Respiratory Exam Respiratory Exam: Clear to Ausculation Bilateral, NORMAL BREATHING PATTERN - Cardiovascular Exam Cardiovascular Exam: REGULAR RHYTHM, +S1, +S2. absent: Murmur - GI/Abdominal Exam GI & Abdominal Exam: Soft, Normal Bowel Sounds. absent: Tenderness Additional comments: Incision cdi, anna in place. Ostomy pink and patent - Neurological Exam Neurological Exam: Alert, Awake, Oriented x3 Assessment and Plan - Assessment and Plan (Free Text) Assessment: 51F w. perirectal abscess and stricture of rectum s/p diverting end colostomy w / drainage of perirectal phlegmon, POD#9 - Removed every other staple and paint with betadine - Cont ostomy care - pain management consulted - cont daily packing change - encourage OOB, ambulation, and IS use - Oncology is following patient: may need port for chemo - GI/DVT ppx Further recs discuss with Dr. Kaia Luna IM Resident PGY-1 <Cristina Haley - Last Filed: 12/16/16 15:28> Objective - Vital Signs/Intake and Output Vital Signs (last 24 hours): Temp Pulse Resp BP Pulse Ox 98.3 F 60 20 98/69 L 97 12/16/16 07:30 12/16/16 07:30 12/16/16 07:30 12/16/16 07:30 12/16/16 07:30 Intake and Output: 12/16/16 12/16/16 06:59 18:59 Intake Total 900 1050 Balance 900 1050 - Medications Medications: Current Medications Acetaminophen (Tylenol 325mg Tab) 650 mg PO Q6H PRN PRN Reason: Pain, moderate (4-7) Last Admin: 12/08/16 20:36 Dose: 650 mg Al Hydrox/Mg Hydrox/Simethicone (Maalox Plus 30 Ml) 30 ml PO DAILY PRN PRN Reason: Indigestion / Heartburn Docusate Sodium (Colace) 100 mg PO TID [facility] Last Admin: 12/16/16 13:35 Dose: 100 mg Escitalopram Oxalate (Lexapro) 10 mg PO DAILY [facility] Last Admin: 12/16/16 10:13 Dose: 10 mg Gabapentin (Neurontin) 800 mg PO TID [facility] PRN Reason: Protocol Last Admin: 12/16/16 13:35 Dose: 800 mg Heparin Sodium (Porcine) (Heparin) 5,000 units SC Q12 [facility] PRN Reason: Protocol Last Admin: 12/16/16 10:20 Dose: Not Given Hydrocortisone (Cortizone 1% Cream) 0 gm TOP BID [facility] Last Admin: 12/16/16 10:15 Dose: 1 appl Hydrocortisone/Pramoxine (Proctofoam) 1 gm TOP TID [facility] Last Admin: 12/16/16 10:14 Dose: Not Given Meropenem 1g/NS 100mL IVPB (Meropenem 1g/Ns 100ml Ivpb) 100 mls @ 100 mls/hr IVPB Q8H [facility] Last Admin: 12/16/16 10:14 Dose: Not Given Ondansetron HCl (Zofran Inj) 4 mg IVP Q8 PRN PRN Reason: Nausea/Vomiting Oxycodone HCl (Oxycontin Extended Release Tab) 60 mg PO Q12 [facility] Last Admin: 12/16/16 10:12 Dose: 60 mg Oxycodone HCl (Oxycodone Immediate Release Tab) 15 mg PO Q4 PRN PRN Reason: Pain, severe (8-10) Last Admin: 12/16/16 13:34 Dose: 15 mg Pantoprazole Sodium (Protonix Inj) 40 mg IVP DAILY [facility] Last Admin: 12/16/16 10:15 Dose: Not Given Quetiapine Fumarate (Seroquel) 200 mg PO BID [facility] PRN Reason: Protocol Last Admin: 12/16/16 10:14 Dose: 200 mg Simethicone (Mylicon Chew Tab) 80 mg PO [facility] PRN PRN Reason: GI distress Last Admin: 12/09/16 17:12 Dose: 80 mg Zolpidem Tartrate (Ambien) 5 mg PO HS [facility] PRN Reason: Protocol Last Admin: 12/16/16 01:00 Dose: Not Given - Labs Labs: 12/16/16 06:45 12/16/16 06:45 PT 13.4 Seconds (9.9-11.8) H 12/07/16 08:14 INR 1.24 (0.93-1.08) H 12/07/16 08:14 APTT 31.0 Seconds (23.7-30.8) H 12/07/16 08:14 Assessment and Plan - Assessment and Plan (Free Text) Assessment: attending note; Patient seen and examined with resident. Patient is a 51 year old female with history of Crohn's disease s/p right hemicolectomy, asthma, psoriasis, anxiety, depression, perirectal abscess, Bipolar disorder, Drug abuse, Opiate dependence and non-compliance with follow up here for evaluation of abdominal pain and found to have sepsis secondary to peirectal abscess s/p IR guided drainage and s/p ex lap, removal of phlegmon, diverting colostomy. POD # 9. drain removed and anna removal. Colostomy care teaching in progress. 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 seen by DR. Briseno yesterday. Needs colonoscopy in 4 weeks. Needs PET scan as outpatient. GI consult appreciated for possible outpatient colonoscopy. Opiate abuse; OxyContin immediate release dosage increased. Bipolar disorder; continue psych medication. case discussed with social work faculty member and skilled nursing case manager for discharge planning. Upon discharge patient will follow-up with PMD Dr. Chung. Attending/Attestation - Attestation I have personally seen and examined this patient.: Yes I have fully participated in the care of the patient.: Yes I have reviewed all pertinent clinical information, including history, physical exam and plan: Yes
--- NOTE | 2016-12-16 16:27 | CP.PCM.PN ---
Subjective - Date & Time of Evaluation Date of Evaluation: 12/16/16 Time of Evaluation: 10:05 - Subjective Subjective: Comfortable in bed, abdominal drain has been removed yesterday, no fevers overnight, no diarrhea. Objective - Vital Signs/Intake and Output Vital Signs (last 24 hours): Temp Pulse Resp BP Pulse Ox 98.3 F 60 20 98/69 L 97 12/16/16 07:30 12/16/16 07:30 12/16/16 07:30 12/16/16 07:30 12/16/16 07:30 Intake and Output: 12/16/16 12/16/16 06:59 18:59 Intake Total 900 1050 Balance 900 1050 - Medications Medications: Current Medications Acetaminophen (Tylenol 325mg Tab) 650 mg PO Q6H PRN PRN Reason: Pain, moderate (4-7) Last Admin: 12/08/16 20:36 Dose: 650 mg Al Hydrox/Mg Hydrox/Simethicone (Maalox Plus 30 Ml) 30 ml PO DAILY PRN PRN Reason: Indigestion / Heartburn Docusate Sodium (Colace) 100 mg PO TID [facility] Last Admin: 12/16/16 13:35 Dose: 100 mg Escitalopram Oxalate (Lexapro) 10 mg PO DAILY [facility] Last Admin: 12/16/16 10:13 Dose: 10 mg Gabapentin (Neurontin) 800 mg PO TID [facility] PRN Reason: Protocol Last Admin: 12/16/16 13:35 Dose: 800 mg Heparin Sodium (Porcine) (Heparin) 5,000 units SC Q12 [facility] PRN Reason: Protocol Last Admin: 12/16/16 10:20 Dose: Not Given Hydrocortisone (Cortizone 1% Cream) 0 gm TOP BID [facility] Last Admin: 12/16/16 10:15 Dose: 1 appl Hydrocortisone/Pramoxine (Proctofoam) 1 gm TOP TID [facility] Last Admin: 12/16/16 10:14 Dose: Not Given Meropenem 1g/NS 100mL IVPB (Meropenem 1g/Ns 100ml Ivpb) 100 mls @ 100 mls/hr IVPB Q8H [facility] Last Admin: 12/16/16 10:14 Dose: Not Given Ondansetron HCl (Zofran Inj) 4 mg IVP Q8 PRN PRN Reason: Nausea/Vomiting Oxycodone HCl (Oxycontin Extended Release Tab) 60 mg PO Q12 [facility] Last Admin: 12/16/16 10:12 Dose: 60 mg Oxycodone HCl (Oxycodone Immediate Release Tab) 15 mg PO Q4 PRN PRN Reason: Pain, severe (8-10) Last Admin: 12/16/16 13:34 Dose: 15 mg Pantoprazole Sodium (Protonix Inj) 40 mg IVP DAILY [facility] Last Admin: 12/16/16 10:15 Dose: Not Given Quetiapine Fumarate (Seroquel) 200 mg PO BID [facility] PRN Reason: Protocol Last Admin: 12/16/16 10:14 Dose: 200 mg Simethicone (Mylicon Chew Tab) 80 mg PO [facility] PRN PRN Reason: GI distress Last Admin: 12/09/16 17:12 Dose: 80 mg Zolpidem Tartrate (Ambien) 5 mg PO HS [facility] PRN Reason: Protocol Last Admin: 12/16/16 01:00 Dose: Not Given - Labs Labs: 12/16/16 06:45 12/16/16 06:45 PT 13.4 Seconds (9.9-11.8) H 12/07/16 08:14 INR 1.24 (0.93-1.08) H 12/07/16 08:14 APTT 31.0 Seconds (23.7-30.8) H 12/07/16 08:14 - Constitutional Appears: Non-toxic, No Acute Distress - Head Exam Head Exam: NORMAL INSPECTION - ENT Exam ENT Exam: Mucous Membranes Moist - Neck Exam Neck Exam: absent: Lymphadenopathy, Meningismus - Respiratory Exam Respiratory Exam: Decreased Breath Sounds - Cardiovascular Exam Cardiovascular Exam: +S1, +S2 - GI/Abdominal Exam GI & Abdominal Exam: Soft. absent: Tenderness Assessment and Plan - Assessment and Plan (Free Text) Plan: Assessment Sepsis secondary to Pelvic abscess, probably related to the patient's Crohn's disease, S/P exploratory laparotomy, diverting colostomy and surgical drainage of the abscess POD POD #8; S/P CT-guided drainage POD #13, growing ESBL- producing multidrug-resistant E. coli; S/P drainage of perirectal abscess with note of mucinous adenocarcinoma asthma history of pneumonia eczema history of psoriasis anxiety history of depression bipolar disorder history of alcohol abuse history of right hemicolectomy history of perirectal abscess Plan continue Meropenem and will continue to monitor clinically; now that the drain has been removed, we may be able to d/c antibiotics in the next 2-4-48 hours Will continue to follow clinically
[2016-12-16] MEDS: oxyCODONE 15 mg Immediate Release Tab PO PRN (18:45)
[2016-12-17] MEDS: oxyCODONE 20 mg ER Tab (oxyCONTIN) PO SCH ×3 (00:31→21:59)
[2016-12-17] MEDS: oxyCODONE 15 mg Immediate Release Tab PO PRN ×2 (05:01→14:26)
[2016-12-17 07:51] LABS: ADD MANUAL DIFF? NO
[2016-12-17 08:00] LABS: BASO # 0.05 K/mm3 (0.0-2.0); BASO % 0.5 % (0.0-3.0); EOS # 0.5 (0.0-0.7); EOS % 4.9 % (1.5-5.0); GRAN # 7.09 (1.4-6.5); GRAN % 68.4 % (50.0-68.0); HEMATOCRIT 30.3 % (36.0-48.0); LYMPH # 1.9 (1.2-3.4); MEAN CELL VOLUME 88.9 fL (80.0-105.0); MEAN CORPUSCULAR HEMOGLOBIN 28.2 pg (25.0-35.0); MEAN CORPUSCULAR HGB CONC 31.7 g/dl (31.0-37.0); MEAN PLATELET VOLUME 10.1 fl (7.0-11.0); MONO # 0.9 (0.1-0.6); MONO % 8.2 % (1.0-6.0); PLATELET COUNT 482 10^3/uL (120.0-450.0); RED CELL DISTRIBUTION WIDTH 16.8 % (11.5-14.5); WHITE BLOOD COUNT 10.4 10^3/ul (4.5-11.0)
[2016-12-17 08:16] LABS: ALB/GLOB RATIO 0.7 (1.1-1.8); ALKALINE PHOSPHATASE 99 U/L (38-133); ALT/SGPT 38 U/L (7-56); AST/SGOT 48 U/L (15-39); BILIRUBIN,TOTAL 0.3 mg/dL (0.2-1.3); BLOOD UREA NITROGEN 9 mg/dL (7-21); CARBON DIOXIDE 30 mmol/L (21-33); CHLORIDE 98 mmol/L (95-110); GFR AFRICAN-AMERICAN > 60; GLUCOSE,RANDOM 101 mg/dL (70-110); PHOSPHOROUS 3.9 mg/dL (2.5-4.5); SODIUM 139 mmol/L (132-148); TOTAL PROTEIN 6.7 g/dL (5.8-8.3)
[2016-12-17 08:52] LABS: POTASSIUM 5.7 mmol/L (3.6-5.0)
--- NOTE | 2016-12-17 09:24 | CP.PCM.PN ---
<NicoletteJosiah - Last Filed: 12/17/16 10:57> Subjective - Date & Time of Evaluation Date of Evaluation: 12/17/16 Time of Evaluation: 07:55 - Subjective Subjective: PGY-1 Medicine Progress Note for Dr. Haley Patient seen and examined at bedside. She is POD #10 of exploratory laparotomy perirectal abscess I&D, removal of phlegmon, diverting colostomy. She states abdominal pain is similar to yesterday. She is able to tolerate her diet well and colostomy is producing soft, brown stool. She reports that Dr. Marti told her that rest of anna will be removed tomorrow. Denies any fever,chills , chest pain, SOB, palpitations, nausea, vomiting, diarrhea, or incontinence. Objective - Vital Signs/Intake and Output Vital Signs (last 24 hours): Temp Pulse Resp BP Pulse Ox 98 F 68 20 97/59 L 95 12/17/16 07:57 12/17/16 07:57 12/17/16 07:57 12/17/16 07:57 12/17/16 07:57 Intake and Output: 12/17/16 12/17/16 06:59 18:59 Intake Total 840 Balance 840 - Medications Medications: Current Medications Acetaminophen (Tylenol 325mg Tab) 650 mg PO Q6H PRN PRN Reason: Pain, moderate (4-7) Last Admin: 12/08/16 20:36 Dose: 650 mg Al Hydrox/Mg Hydrox/Simethicone (Maalox Plus 30 Ml) 30 ml PO DAILY PRN PRN Reason: Indigestion / Heartburn Docusate Sodium (Colace) 100 mg PO TID [facility] Last Admin: 12/16/16 18:05 Dose: 100 mg Escitalopram Oxalate (Lexapro) 10 mg PO DAILY [facility] Last Admin: 12/17/16 09:15 Dose: 10 mg Gabapentin (Neurontin) 800 mg PO TID [facility] PRN Reason: Protocol Last Admin: 12/17/16 09:12 Dose: 800 mg Heparin Sodium (Porcine) (Heparin) 5,000 units SC Q12 [facility] PRN Reason: Protocol Last Admin: 12/17/16 00:31 Dose: Not Given Hydrocortisone (Cortizone 1% Cream) 0 gm TOP BID [facility] Last Admin: 12/16/16 19:06 Dose: 1 appl Hydrocortisone/Pramoxine (Proctofoam) 1 gm TOP TID [facility] Last Admin: 12/16/16 18:07 Dose: Not Given Meropenem 1g/NS 100mL IVPB (Meropenem 1g/Ns 100ml Ivpb) 100 mls @ 100 mls/hr IVPB Q8H [facility] Last Admin: 12/16/16 20:06 Dose: Not Given Ondansetron HCl (Zofran Inj) 4 mg IVP Q8 PRN PRN Reason: Nausea/Vomiting Oxycodone HCl (Oxycontin Extended Release Tab) 60 mg PO Q12 [facility] Last Admin: 12/17/16 09:12 Dose: 60 mg Oxycodone HCl (Oxycodone Immediate Release Tab) 15 mg PO Q4 PRN PRN Reason: Pain, severe (8-10) Last Admin: 12/17/16 05:01 Dose: 15 mg Pantoprazole Sodium (Protonix Ec Tab) 40 mg PO 0630 [facility] Quetiapine Fumarate (Seroquel) 200 mg PO BID [facility] PRN Reason: Protocol Last Admin: 12/17/16 09:13 Dose: 200 mg Simethicone (Mylicon Chew Tab) 80 mg PO [facility] PRN PRN Reason: GI distress Last Admin: 12/09/16 17:12 Dose: 80 mg Zolpidem Tartrate (Ambien) [address] [facility] PRN Reason: Protocol Last Admin: 12/17/16 00:31 Dose: Not Given - Labs Labs: 12/17/16 07:45 12/17/16 07:45 PT 13.4 Seconds (9.9-11.8) H 12/07/16 08:14 INR 1.24 (0.93-1.08) H 12/07/16 08:14 APTT 31.0 Seconds (23.7-30.8) H 12/07/16 08:14 - Constitutional Appears: No Acute Distress - Head Exam Head Exam: ATRAUMATIC, NORMOCEPHALIC - Eye Exam Eye Exam: EOMI, Normal appearance Pupil Exam: PERRL - ENT Exam ENT Exam: Mucous Membranes Moist - Neck Exam Neck Exam: Normal Inspection - Respiratory Exam Respiratory Exam: Clear to Ausculation Bilateral, NORMAL BREATHING PATTERN - Cardiovascular Exam Cardiovascular Exam: REGULAR RHYTHM, +S1, +S2 - GI/Abdominal Exam GI & Abdominal Exam: Soft, Tenderness, Normal Bowel Sounds. absent: Distended, Firm, Guarding, Mass, Rebound Additional comments: colostomy site pink without erythema draining soft, brown stool in bag - Extremities Exam Extremities Exam: Normal Capillary Refill - Back Exam Back Exam: absent: CVA tenderness (L), CVA tenderness (R) - Neurological Exam Neurological Exam: Alert, Awake, CN II-XII Intact, Oriented x3 - Psychiatric Exam Psychiatric exam: Normal Affect, Normal Mood - Skin Skin Exam: Dry, Intact, Normal Color, Warm Assessment and Plan - Assessment and Plan (Free Text) Plan: 51 F with PMHx of Crohn's disease, perirectal abscess, Bipolar disorder, Drug abuse, Opiate dependence and non-compliance with follow up here for evaluation of abdominal pain. 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 1. Mucinous Adenocarcinoma of colon CT Abd/Pelvis - evidence of pelvic cyst w/lymphadenopathy. Perirectal abscess. Diffuse constipation (see full report) IR perirectal abscess drainage 12/[address] Metcalf Cultures growing ESBL Contact precautions ID following, Dr. Mcneill, help appreciated GI reconsulted for possible colonoscopy and recs Continue Meropenam 1 gm IVPB Q8H Surgery consulted, Dr. Marti, help appreciated s/p perirectal abscess I&D POD #12 s/p perirectal abscess i&D, removal of phlegmon, diverting colostomy on POD # 10 both ALBINA Drains removed Every other staple will be removed today then the rest of anna will be removed tomorrow (12/18) Pathology report: mucinous adenocarcinoma of colon Heme/Onc consult, Dr. Bryant, help appreciated Oxycodone 15 mg PO Q4H PRN Oxycontin 60 mg PO Q12H Gabapentin 800 mg PO TID Pain management consult, Dr. Trevino, help appreciated 2. Hx of Bipolar disorder Continue home meds Psych eval requested 3. Hx of drug abuse monitor for withdrawal Chronic opioid use/abuse. possible illicit drug use in the hospital overnight on 12/06 Cessation counseling 4. Hyperkalemia K+ 5.7 possible hemolysis in specimen repeat K+ and address appropriately 5. Prophylactic Measures Protonix 40 mg IVP Daily Incentive Spirometer SCDs PT/OT <Cristina Haley - Last Filed: 12/17/16 17:49> Objective - Vital Signs/Intake and Output Vital Signs (last 24 hours): Temp Pulse Resp BP Pulse Ox 98.5 F 67 20 103/68 100 12/17/16 16:00 12/17/16 17:21 12/17/16 16:00 12/17/16 17:21 12/17/16 16:00 Intake and Output: 12/17/16 12/17/16 06:59 18:59 Intake Total 840 560 Balance 840 560 - Medications Medications: Current Medications Acetaminophen (Tylenol 325mg Tab) 650 mg PO Q6H PRN PRN Reason: Pain, moderate (4-7) Last Admin: 12/08/16 20:36 Dose: 650 mg Al Hydrox/Mg Hydrox/Simethicone (Maalox Plus 30 Ml) 30 ml PO DAILY PRN PRN Reason: Indigestion / Heartburn Clonazepam (Klonopin) 1 mg PO Q8H [facility] PRN Reason: Protocol Last Admin: 12/17/16 17:21 Dose: 1 mg Docusate Sodium (Colace) 100 mg PO TID [facility] Last Admin: 12/17/16 14:17 Dose: Not Given Escitalopram Oxalate (Lexapro) 10 mg PO DAILY [facility] Last Admin: 12/17/16 09:15 Dose: 10 mg Gabapentin (Neurontin) 800 mg PO TID [facility] PRN Reason: Protocol Last Admin: 12/17/16 14:25 Dose: 800 mg Heparin Sodium (Porcine) (Heparin) 5,000 units SC Q12 [facility] PRN Reason: Protocol Last Admin: 12/17/16 12:36 Dose: Not Given Hydrocortisone (Cortizone 1% Cream) 0 gm TOP BID [facility] Last Admin: 12/17/16 17:23 Dose: 1 appl Hydrocortisone/Pramoxine (Proctofoam) 1 gm TOP TID [facility] Last Admin: 12/17/16 16:11 Dose: Not Given Meropenem 1g/NS 100mL IVPB (Meropenem 1g/Ns 100ml Ivpb) 100 mls @ 100 mls/hr IVPB Q8H [facility] Last Admin: 12/17/16 16:11 Dose: Not Given Ondansetron HCl (Zofran Inj) 4 mg IVP Q8 PRN PRN Reason: Nausea/Vomiting Oxycodone HCl (Oxycodone Immediate Release Tab) 15 mg PO Q4 PRN PRN Reason: Pain, severe (8-10) Oxycodone HCl (Oxycontin Extended Release Tab) 60 mg PO Q12 [facility] Pantoprazole Sodium (Protonix Ec Tab) 40 mg PO 0630 [facility] Quetiapine Fumarate (Seroquel) 200 mg PO BID [facility] PRN Reason: Protocol Last Admin: 12/17/16 17:21 Dose: 200 mg Simethicone (Mylicon Chew Tab) 80 mg PO [facility] PRN PRN Reason: GI distress Last Admin: 12/09/16 17:12 Dose: 80 mg Zolpidem Tartrate (Ambien) 5 mg PO HS [facility] PRN Reason: Protocol Last Admin: 12/17/16 00:31 Dose: Not Given - Labs Labs: 12/17/16 07:45 12/17/16 12:03 PT 13.4 Seconds (9.9-11.8) H 12/07/16 08:14 INR 1.24 (0.93-1.08) H 12/07/16 08:14 APTT 31.0 Seconds (23.7-30.8) H 12/07/16 08:14 Assessment and Plan - Assessment and Plan (Free Text) Assessment: attending note; Patient seen and examined with resident. Patient is a 51 year old female with history of Crohn's disease s/p right hemicolectomy, asthma, psoriasis, anxiety, depression, perirectal abscess, Bipolar disorder, Drug abuse, Opiate dependence and non-compliance with follow up here for evaluation of abdominal pain and found to have sepsis secondary to peirectal abscess s/p IR guided drainage and s/p ex lap, removal of phlegmon, diverting colostomy. POD #10. seen by surgery today. drain removed. few anna removed. Colostomy care training in progress. 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 seen by DR. Briseno yesterday. Needs colonoscopy in 4 weeks. Needs PET scan as outpatient. GI consult appreciated for possible outpatient colonoscopy. Opiate abuse; on OxyContin and oxycodone. Bipolar disorder; continue psych medication. case discussed with psych social worker and employment case manager for discharge planning. possible discharge home in 24 hours if cleared by surgery. Upon discharge patient will follow-up with PMD Dr. Chung. Attending/Attestation - Attestation I have personally seen and examined this patient.: Yes I have fully participated in the care of the patient.: Yes I have reviewed all pertinent clinical information, including history, physical exam and plan: Yes
--- NOTE | 2016-12-17 09:50 | CP.PCM.PN ---
Subjective - Date & Time of Evaluation Date of Evaluation: 12/17/16 Time of Evaluation: 09:47 - Subjective Subjective: SURGERY PROGRESS NOTE FOR DR. BOUCHER 51F seen and examined at bedside. No acute events overnight. Patient tolerating regular diet, ambulating. Objective - Vital Signs/Intake and Output Vital Signs (last 24 hours): Temp Pulse Resp BP Pulse Ox 98 F 68 20 100/61 95 12/17/16 07:57 12/17/16 07:57 12/17/16 07:57 12/17/16 09:00 12/17/16 07:57 Intake and Output: 12/17/16 12/17/16 06:59 18:59 Intake Total 840 Balance 840 - Medications Medications: Current Medications Acetaminophen (Tylenol 325mg Tab) 650 mg PO Q6H PRN PRN Reason: Pain, moderate (4-7) Last Admin: 12/08/16 20:36 Dose: 650 mg Al Hydrox/Mg Hydrox/Simethicone (Maalox Plus 30 Ml) 30 ml PO DAILY PRN PRN Reason: Indigestion / Heartburn Docusate Sodium (Colace) 100 mg PO TID [facility] Last Admin: 12/16/16 18:05 Dose: 100 mg Escitalopram Oxalate (Lexapro) 10 mg PO DAILY [facility] Last Admin: 12/17/16 09:15 Dose: 10 mg Gabapentin (Neurontin) 800 mg PO TID [facility] PRN Reason: Protocol Last Admin: 12/17/16 09:12 Dose: 800 mg Heparin Sodium (Porcine) (Heparin) 5,000 units SC Q12 [facility] PRN Reason: Protocol Last Admin: 12/17/16 00:31 Dose: Not Given Hydrocortisone (Cortizone 1% Cream) 0 gm TOP BID [facility] Last Admin: 12/16/16 19:06 Dose: 1 appl Hydrocortisone/Pramoxine (Proctofoam) 1 gm TOP TID [facility] Last Admin: 12/16/16 18:07 Dose: Not Given Meropenem 1g/NS 100mL IVPB (Meropenem 1g/Ns 100ml Ivpb) 100 mls @ 100 mls/hr IVPB Q8H [facility] Last Admin: 12/16/16 20:06 Dose: Not Given Ondansetron HCl (Zofran Inj) 4 mg IVP Q8 PRN PRN Reason: Nausea/Vomiting Oxycodone HCl (Oxycontin Extended Release Tab) 60 mg PO Q12 [facility] Last Admin: 12/17/16 09:12 Dose: 60 mg Oxycodone HCl (Oxycodone Immediate Release Tab) 15 mg PO Q4 PRN PRN Reason: Pain, severe (8-10) Last Admin: 12/17/16 05:01 Dose: 15 mg Pantoprazole Sodium (Protonix Ec Tab) 40 mg PO 0630 [facility] Quetiapine Fumarate (Seroquel) 200 mg PO BID [facility] PRN Reason: Protocol Last Admin: 12/17/16 09:13 Dose: 200 mg Simethicone (Mylicon Chew Tab) 80 mg PO [facility] PRN PRN Reason: GI distress Last Admin: 12/09/16 17:12 Dose: 80 mg Zolpidem Tartrate (Ambien) 5 mg PO HS [facility] PRN Reason: Protocol Last Admin: 12/17/16 00:31 Dose: Not Given - Labs Labs: 12/17/16 07:45 12/17/16 07:45 PT 13.4 Seconds (9.9-11.8) H 12/07/16 08:14 INR 1.24 (0.93-1.08) H 12/07/16 08:14 APTT 31.0 Seconds (23.7-30.8) H 12/07/16 08:14 - Constitutional Appears: Non-toxic, No Acute Distress - Head Exam Head Exam: ATRAUMATIC - Respiratory Exam Respiratory Exam: Clear to Ausculation Bilateral, NORMAL BREATHING PATTERN - Cardiovascular Exam Cardiovascular Exam: REGULAR RHYTHM, +S1, +S2 - GI/Abdominal Exam GI & Abdominal Exam: Soft, Tenderness. absent: Distended, Firm, Guarding, Rigid , Rebound Additional comments: anna in place, painted with betadine, ostomy in place with brown stool output , stoma pink - Rectal Exam Additional comments: rectal I&D site packed and dressed. Size is decreasing. - Neurological Exam Neurological Exam: Alert, Awake Assessment and Plan - Assessment and Plan (Free Text) Assessment: Patient is a 51 year old female with history of Crohn's disease s/p right hemicolectomy, asthma, psoriasis, anxiety, depression, perirectal abscess, Bipolar disorder, Drug abuse, Opiate dependence and non-compliance with follow up here for evaluation of abdominal pain and found to have sepsis secondary to peirectal abscess s/p IR guided drainage and s/p ex lap, removal of phlegmon, diverting colostomy. POD # 10. - Colostomy care teaching - OR pathology came back as mucinous adenocarcinoma most likely secondary from colon. Patient followed by Oncology Dr. Briseno - Needs colonoscopy in 4 weeks. Needs PET scan as outpatient. - GI consult appreciated for possible outpatient colonoscopy. - needs colostomy care - case discussed with social work assistant and case management specialist for discharge planning. - Upon discharge patient will follow-up with PMD Dr. Chung. Furthers recs discuss with Dr. Kaia Coburn, PGY1
[2016-12-17] MEDS: Meropenem 1g/NS 100mL IVPB 100 ML IVPB SCH ×2 (12:36→16:11)
[2016-12-17] MEDS: Hydrocortisone 1% Cream (30 GM) TOP SCH ×2 (12:36→17:23)
[2016-12-17] MEDS: Hydrocortisone-Pramoxine 1%-1% Foam(10 gm) TOP SCH ×3 (12:37→18:24)
[2016-12-17] MEDS ORDERED: oxyCODONE 15 mg Immediate Release Tab PO PRN (14:56)
[2016-12-18] MEDS: Meropenem 1g/NS 100mL IVPB 100 ML IVPB SCH ×2 (00:50→09:28)
[2016-12-18] MEDS ORDERED: Pantoprazole 40 mg EC Tab PO SCH (06:30)
[2016-12-18 08:22] VITALS: PULSE 57; TEMP 98.4; O2SAT 94
--- NOTE | 2016-12-18 09:04 | CP.PCM.DIS ---
<Josiah Will - Last Filed: 12/18/16 14:15> Provider - Provider Date of Admission: 12/01/16 18:31 Attending physician: Cristina Haley MD Primary care physician: NO PRIMARY CARE PROVIDER Consults: Heme/Onc: Dr. Brodyathingal Surgery: Dr. Marti ID: Dr. Mcneill IR: Dr. Metcalf Psych: Abdleonard Pain Management: Dr. Trevino Time Spent in preparation of Discharge (in minutes): 45 Hospital Course - Lab Results Lab Results: Micro Results 12/02/16 18:05 Other: Please Indicate Mycobacterial Culture - Preliminary 12/02/16 18:05 Abscess - Abscess Fungal Culture - Preliminary NO FUNGUS GROWTH IN 1 WEEK. 12/07/16 10:32 Other: Please Indicate Gram Stain - Final 12/07/16 10:32 Other: Please Indicate Anaerobic Culture - Final NO ANAEROBES ISOLATED. 12/07/16 10:32 Other: Please Indicate Wound Culture - Final No growth. 12/05/16 11:00 Blood-Venous Blood Culture - Final NO GROWTH AFTER 5 DAYS 12/05/16 11:00 Blood-Venous Gram Stain - Final TEST NOT PERFORMED 12/05/16 11:30 Blood-Venous Blood Culture - Final NO GROWTH AFTER 5 DAYS 12/05/16 11:30 Blood-Venous Gram Stain - Final TEST NOT PERFORMED 12/07/16 17:00 Nose MRSA Culture (Admit) - Final MRSA NOT DETECTED 12/05/16 15:26 Abscess - Anal Gram Stain - Final 12/05/16 15:26 Abscess - Anal Anaerobic Culture - Final NO ANAEROBES ISOLATED. 12/05/16 15:26 Abscess - Anal Wound Culture - Final No growth. 12/06/16 03:00 Urine Urine Culture - Final No Growth (<1,000 CFU/ML) 12/02/16 18:05 Abscess - Abscess Anaerobic Culture - Final NO ANAEROBES ISOLATED. 12/02/16 18:05 Other: Please Indicate Gram Stain - Final 12/02/16 18:05 Other: Please Indicate Body Fluid Culture - Final Escherichia Coli Most Recent Lab Values WBC 10.4 10^3/ul (4.5-11.0) D 12/17/16 07:45 RBC 3.41 10^6/uL (3.5-6.1) L 12/17/16 07:45 Hgb 9.6 gm/dL (12.0-16.0) L 12/17/16 07:45 Hct 30.3 % (36.0-48.0) L 12/17/16 07:45 MCV 88.9 fL (80.0-105.0) 12/17/16 07:45 MCH 28.2 pg (25.0-35.0) 12/17/16 07:45 MCHC 31.7 g/dl (31.0-37.0) 12/17/16 07:45 RDW 16.8 % (11.5-14.5) H 12/17/16 07:45 Plt Count 482 10^3/uL (120.0-450.0) H 12/17/16 07:45 MPV 10.1 fl (7.0-11.0) 12/17/16 07:45 Gran % 68.4 % (50.0-68.0) H 12/17/16 07:45 Lymph % (Auto) 18.0 % (22.0-35.0) L 12/17/16 07:45 [place] % (Auto) 8.2 % (1.0-6.0) H 12/17/16 07:45 Eos % (Auto) 4.9 % (1.5-5.0) 12/17/16 07:45 Baso % (Auto) 0.5 % (0.0-3.0) 12/17/16 07:45 Gran # 7.09 (1.4-6.5) H 12/17/16 07:45 Lymph # 1.9 (1.2-3.4) 12/17/16 07:45 [place] # 0.9 (0.1-0.6) H 12/17/16 07:45 Eos # 0.5 (0.0-0.7) 12/17/16 07:45 Baso # 0.05 K/mm3 (0.0-2.0) 12/17/16 07:45 Neutrophils % (Manual) 65 % (50.0-70.0) 12/15/16 06:10 Lymphocytes % (Manual) 25 % (22.0-35.0) 12/15/16 06:10 Atypical Lymphs % 2 % (0.0-0.0) H 12/15/16 06:10 Monocytes % (Manual) 6 % (1.0-6.0) 12/15/16 06:10 Eosinophils % (Manual) 2 % (0.0-3.0) 12/15/16 06:10 Platelet Evaluation High (NORMAL) 12/15/16 06:10 Polychromasia Slight 12/15/16 06:10 Hypochromasia 1+ 12/15/16 06:10 Poikilocytosis (manual Slight 12/15/16 06:10 Anisocytosis (manual) 1+ 12/15/16 06:10 Tear Drop Cells Slight 12/15/16 06:10 Ovalocytes Slight 12/15/16 06:10 PT 13.4 Seconds (9.9-11.8) H 12/07/16 08:14 INR 1.24 (0.93-1.08) H 12/07/16 08:14 APTT 31.0 Seconds (23.7-30.8) H 12/07/16 08:14 Sodium 139 mmol/L (132-148) 12/17/16 07:45 Potassium 3.6 mmol/L (3.6-5.0) 12/17/16 12:03 Chloride 98 mmol/L (95-110) 12/17/16 07:45 Carbon Dioxide 30 mmol/L (21-33) 12/17/16 07:45 Anion Gap 17 (10-20) 12/17/16 07:45 BUN 9 mg/dL (7-21) 12/17/16 07:45 Creatinine 0.7 mg/dL (0.5-1.4) 12/17/16 07:45 Est GFR ( Amer) > 60 12/17/16 07:45 Est GFR (Non-Af Amer) > 60 12/17/16 07:45 Random Glucose 101 mg/dL (70-110) 12/17/16 07:45 Calcium 7.0 mg/dL (8.4-10.5) L 12/17/16 07:45 Phosphorus 3.9 mg/dL (2.5-4.5) 12/17/16 07:45 Magnesium 2.0 mg/dL (1.7-2.2) 12/17/16 07:45 Total Bilirubin 0.3 mg/dL (0.2-1.3) 12/17/16 07:45 AST 48 U/L (15-39) H 12/17/16 07:45 ALT 38 U/L (7-56) 12/17/16 07:45 Alkaline Phosphatase 99 U/L (38-133) 12/17/16 07:45 Total Protein 6.7 g/dL (5.8-8.3) 12/17/16 07:45 Albumin 2.9 g/dL (3.0-4.8) L 12/17/16 07:45 Globulin 3.9 gm/dL 12/17/16 07:45 Albumin/Globulin Ratio 0.7 (1.1-1.8) L 12/17/16 07:45 Lipase 12 U/L (23-300) L 12/01/16 16:25 CA 19-9 Antigen 125 U/mL (0-37) H 12/10/16 12:50 CA 125 Antigen 8.2 U/mL (0-35) 12/10/16 12:50 Procalcitonin < 0.05 NG/ML (0.19-0.49) L 12/05/16 11:00 Urine Color Yellow (YELLOW) 12/06/16 03:00 Urine Appearance Clear (CLEAR) 12/06/16 03:00 Urine pH 6.0 (4.7-8.0) 12/06/16 03:00 Ur Specific [place] >= 1.030 (1.005-1.035) 12/06/16 03:00 Urine Protein Trace mg/dL (<30 mg/dL) H 12/06/16 03:00 Urine Glucose (UA) Negative mg/dL (NEGATIVE) 12/06/16 03:00 Urine Ketones Negative mg/dL (NEGATIVE) 12/06/16 03:00 Urine Blood Moderate (NEGATIVE) H 12/06/16 03:00 Urine Nitrate Negative (NEGATIVE) 12/06/16 03:00 Urine Bilirubin Negative (NEGATIVE) 12/06/16 03:00 Urine Urobilinogen 0.2 E.U./dL (<1 E.U./dL) 12/06/16 03:00 Ur Leukocyte Esterase Negative [place]/uL (NEGATIVE) 12/06/16 03:00 Urine RBC 25 - 30 /hpf (0-2) 12/06/16 03:00 Urine WBC 5 - 10 /hpf (0-6) 12/06/16 03:00 Ur Epithelial Cells 3 - 4 /hpf (0-5) 12/06/16 03:00 Calcium Oxalate Crystal Rare /hpf 12/01/16 14:23 Urine Bacteria Mod (NEG) 12/06/16 03:00 Hyaline Casts 0 - 2 /hpf 12/01/16 14:23 Urine Opiates Screen Positive (NEGATIVE) H 12/07/16 17:00 Urine Methadone Screen Negative (NEGATIVE) 12/07/16 17:00 Ur Barbiturates Screen Negative (NEGATIVE) 12/07/16 17:00 Ur Phencyclidine Scrn Negative (NEGATIVE) 12/07/16 17:00 Ur Amphetamines Screen Negative (NEGATIVE) 12/07/16 17:00 U Benzodiazepines Scrn Positive (NEGATIVE) H 12/07/16 17:00 U Oth Cocaine Metabols Negative (NEGATIVE) 12/07/16 17:00 U Cannabinoids Screen Negative (NEGATIVE) 12/07/16 17:00 Blood Type O POSITIVE 12/07/16 00:09 Blood Type Confirm O POSITIVE 12/07/16 03:00 Antibody Screen Negative 12/07/16 00:09 Crossmatch See Detail 12/07/16 00:09 BBK History Checked No verified bt 12/07/16 00:09 - Hospital Course Hospital Course: 51 year old female, whose past medical history includes Crohn's disease, presents to the emergency department complaining of diffuse abdominal pain for the past few days. 10/10 constant, worse RUQ and LUQ. Patient reports associated nausea, non-bilious non-bloody vomiting and diarrhea. 4-5 episodes of each day. Patient states symptoms are similar in quality to previous Crohn's flare-ups. Patient was admitted for intractable abdominal pain and possible Crohn's flare up. Patient was made NPO, started on pain maeds, IV antibioticcs and IV fluids. Surgery and GI were consulted. CT showed pelvic Cyst with lymphadenopathy, partial obstruction consistent with Crohn' and dilated CBD (see full report). On 12/01, patient went for IR drainage and pigtail placement for perirectal abscess. Abscess was partially drained but pigtail placement was unsuccessful. Wound culture was positive for ESBL. On 12/05, patient went to OR for I&D of perirectal abscess. Two days later, patient returned to OR for exploratory laparotomy, w. drainage of vlad-rectal abscess/phlegmon, and diverting colostomy. 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 Hematology/Oncology was consulted. Patient continued IV antibiotics and pain management throughout the admission. On 12/16, every other staple was removed then two days later the rest of the anna were removed and patient was deemed medically stable for discharge by Dr. Haley. patient to follow up with Dr. Briseno for PET scan in 3 weeks. Colonoscopy will be done in about 4 weeks after colostomy heals. Discharge Exam - Head Exam Head Exam: ATRAUMATIC, NORMOCEPHALIC - Eye Exam Eye Exam: EOMI, Normal appearance Pupil Exam: PERRL - ENT Exam ENT Exam: Mucous Membranes Moist - Neck Exam Neck exam: Normal Inspection - Respiratory Exam Respiratory Exam: Clear to PA & Lateral, NORMAL BREATHING PATTERN - Cardiovascular Exam Cardiovascular Exam: REGULAR RHYTHM, +S1, +S2 - GI/Abdominal Exam GI & Abdominal Exam: Normal Bowel Sounds, Soft, Tenderness (mild to deep palpation) Additional comments: colostomy site pink and draining brown stool in bag area clean, dry, and intact without erythema - Extremities Exam Extremities exam: normal capillary refill, pedal pulses present - Back Exam Back exam: absent: CVA tenderness (L), CVA tenderness (R) Additional comments: perirectal bandage freshly changed - c/d/i - Neurological Exam Neurological exam: Alert, CN II-XII Intact, Oriented x3 - Psychiatric Exam Psychiatric exam: Normal Affect, Normal Mood - Skin Skin Exam: Dry, Intact, Normal Color, Warm Discharge Plan - Follow Up Plan Condition: STABLE Disposition: HOME/ ROUTINE Instructions: Acute Abdominal Pain (DC), Acute Abdominal Pain (GEN) Additional Instructions: Patient is medically stable for discharge to home by Dr. Haley. Patient has no new medications to start. Patient is to resume home medications as previously prescribed. Patient is to follow up with PMD, Surgery (Dr. Marti), GI (Dr. Quezada), and Hematology/Oncology (Dr. Briseno) within 1 week of discharge. Patient was educated and instructed on proper colostomy care and maintenance. Prescription for colostomy kits was provided to patient. She may resume physical activity as tolerated. Please return to ED if symptoms persist or condition worsens. All instructions stated above were discussed with the patient and her spouse. They both verbalized understanding and agreement. Referrals: Adria Briseno MD [Medical Doctor] - Dheeraj Marti MD [Staff Provider] - JENNIFER SWAN [Primary Care Provider] - Uli Quezada MD [Staff Provider] - <Cristina Haley - Last Filed: 12/18/16 16:50> Provider - Provider Date of Admission: 12/01/16 18:31 Attending physician: Cristina Haley MD Primary care physician: JENNIFER PRIMARY CARE PROVIDER Time Spent in preparation of Discharge (in minutes): 35 Hospital Course - Lab Results Lab Results: Micro Results 12/02/16 18:05 Other: Please Indicate Mycobacterial Culture - Preliminary 12/02/16 18:05 Abscess - Abscess Fungal Culture - Preliminary NO FUNGUS GROWTH IN 1 WEEK. 12/07/16 10:32 Other: Please Indicate Gram Stain - Final 12/07/16 10:32 Other: Please Indicate Anaerobic Culture - Final NO ANAEROBES ISOLATED. 12/07/16 10:32 Other: Please Indicate Wound Culture - Final No growth. 12/05/16 11:00 Blood-Venous Blood Culture - Final NO GROWTH AFTER 5 DAYS 12/05/16 11:00 Blood-Venous Gram Stain - Final TEST NOT PERFORMED 12/05/16 11:30 Blood-Venous Blood Culture - Final NO GROWTH AFTER 5 DAYS 12/05/16 11:30 Blood-Venous Gram Stain - Final TEST NOT PERFORMED 12/07/16 17:00 Nose MRSA Culture (Admit) - Final MRSA NOT DETECTED 12/05/16 15:26 Abscess - Anal Gram Stain - Final 12/05/16 15:26 Abscess - Anal Anaerobic Culture - Final NO ANAEROBES ISOLATED. 12/05/16 15:26 Abscess - Anal Wound Culture - Final No growth. 12/06/16 03:00 Urine Urine Culture - Final No Growth (<1,000 CFU/ML) 12/02/16 18:05 Abscess - Abscess Anaerobic Culture - Final NO ANAEROBES ISOLATED. 12/02/16 18:05 Other: Please Indicate Gram Stain - Final 12/02/16 18:05 Other: Please Indicate Body Fluid Culture - Final Escherichia Coli Most Recent Lab Values WBC 10.4 10^3/ul (4.5-11.0) D 12/17/16 07:45 RBC 3.41 10^6/uL (3.5-6.1) L 12/17/16 07:45 Hgb 9.6 gm/dL (12.0-16.0) L 12/17/16 07:45 Hct 30.3 % (36.0-48.0) L 12/17/16 07:45 MCV 88.9 fL (80.0-105.0) 12/17/16 07:45 MCH 28.2 pg (25.0-35.0) 12/17/16 07:45 MCHC 31.7 g/dl (31.0-37.0) 12/17/16 07:45 RDW 16.8 % (11.5-14.5) H 12/17/16 07:45 Plt Count 482 10^3/uL (120.0-450.0) H 12/17/16 07:45 MPV 10.1 fl (7.0-11.0) 12/17/16 07:45 Gran % 68.4 % (50.0-68.0) H 12/17/16 07:45 Lymph % (Auto) 18.0 % (22.0-35.0) L 12/17/16 07:45 [place] % (Auto) 8.2 % (1.0-6.0) H 12/17/16 07:45 Eos % (Auto) 4.9 % (1.5-5.0) 12/17/16 07:45 Baso % (Auto) 0.5 % (0.0-3.0) 12/17/16 07:45 Gran # 7.09 (1.4-6.5) H 12/17/16 07:45 Lymph # 1.9 (1.2-3.4) 12/17/16 07:45 [place] # 0.9 (0.1-0.6) H 12/17/16 07:45 Eos # 0.5 (0.0-0.7) 12/17/16 07:45 Baso # 0.05 K/mm3 (0.0-2.0) 12/17/16 07:45 Neutrophils % (Manual) 65 % (50.0-70.0) 12/15/16 06:10 Lymphocytes % (Manual) 25 % (22.0-35.0) 12/15/16 06:10 Atypical Lymphs % 2 % (0.0-0.0) H 12/15/16 06:10 Monocytes % (Manual) 6 % (1.0-6.0) 12/15/16 06:10 Eosinophils % (Manual) 2 % (0.0-3.0) 12/15/16 06:10 Platelet Evaluation High (NORMAL) 12/15/16 06:10 Polychromasia Slight 12/15/16 06:10 Hypochromasia 1+ 12/15/16 06:10 Poikilocytosis (manual Slight 12/15/16 06:10 Anisocytosis (manual) 1+ 12/15/16 06:10 Tear Drop Cells Slight 12/15/16 06:10 Ovalocytes Slight 12/15/16 06:10 PT 13.4 Seconds (9.9-11.8) H 12/07/16 08:14 INR 1.24 (0.93-1.08) H 12/07/16 08:14 APTT 31.0 Seconds (23.7-30.8) H 12/07/16 08:14 Sodium 139 mmol/L (132-148) 12/17/16 07:45 Potassium 3.6 mmol/L (3.6-5.0) 12/17/16 12:03 Chloride 98 mmol/L (95-110) 12/17/16 07:45 Carbon Dioxide 30 mmol/L (21-33) 12/17/16 07:45 Anion Gap 17 (10-20) 12/17/16 07:45 BUN 9 mg/dL (7-21) 12/17/16 07:45 Creatinine 0.7 mg/dL (0.5-1.4) 12/17/16 07:45 Est GFR ( Amer) > 60 12/17/16 07:45 Est GFR (Non-Af Amer) > 60 12/17/16 07:45 Random Glucose 101 mg/dL (70-110) 12/17/16 07:45 Calcium 7.0 mg/dL (8.4-10.5) L 12/17/16 07:45 Phosphorus 3.9 mg/dL (2.5-4.5) 12/17/16 07:45 Magnesium 2.0 mg/dL (1.7-2.2) 12/17/16 07:45 Total Bilirubin 0.3 mg/dL (0.2-1.3) 12/17/16 07:45 AST 48 U/L (15-39) H 12/17/16 07:45 ALT 38 U/L (7-56) 12/17/16 07:45 Alkaline Phosphatase 99 U/L (38-133) 12/17/16 07:45 Total Protein 6.7 g/dL (5.8-8.3) 12/17/16 07:45 Albumin 2.9 g/dL (3.0-4.8) L 12/17/16 07:45 Globulin 3.9 gm/dL 12/17/16 07:45 Albumin/Globulin Ratio 0.7 (1.1-1.8) L 12/17/16 07:45 Lipase 12 U/L (23-300) L 12/01/16 16:25 CA 19-9 Antigen 125 U/mL (0-37) H 12/10/16 12:50 CA 125 Antigen 8.2 U/mL (0-35) 12/10/16 12:50 Procalcitonin < 0.05 NG/ML (0.19-0.49) L 12/05/16 11:00 Urine Color Yellow (YELLOW) 12/06/16 03:00 Urine Appearance Clear (CLEAR) 12/06/16 03:00 Urine pH 6.0 (4.7-8.0) 12/06/16 03:00 Ur Specific [place] >= 1.030 (1.005-1.035) 12/06/16 03:00 Urine Protein Trace mg/dL (<30 mg/dL) H 12/06/16 03:00 Urine Glucose (UA) Negative mg/dL (NEGATIVE) 12/06/16 03:00 Urine Ketones Negative mg/dL (NEGATIVE) 12/06/16 03:00 Urine Blood Moderate (NEGATIVE) H 12/06/16 03:00 Urine Nitrate Negative (NEGATIVE) 12/06/16 03:00 Urine Bilirubin Negative (NEGATIVE) 12/06/16 03:00 Urine Urobilinogen 0.2 E.U./dL (<1 E.U./dL) 12/06/16 03:00 Ur Leukocyte Esterase Negative [place]/uL (NEGATIVE) 12/06/16 03:00 Urine RBC 25 - 30 /hpf (0-2) 12/06/16 03:00 Urine WBC 5 - 10 /hpf (0-6) 12/06/16 03:00 Ur Epithelial Cells 3 - 4 /hpf (0-5) 12/06/16 03:00 Calcium Oxalate Crystal Rare /hpf 12/01/16 14:23 Urine Bacteria Mod (NEG) 12/06/16 03:00 Hyaline Casts 0 - 2 /hpf 12/01/16 14:23 Urine Opiates Screen Positive (NEGATIVE) H 12/07/16 17:00 Urine Methadone Screen Negative (NEGATIVE) 12/07/16 17:00 Ur Barbiturates Screen Negative (NEGATIVE) 12/07/16 17:00 Ur Phencyclidine Scrn Negative (NEGATIVE) 12/07/16 17:00 Ur Amphetamines Screen Negative (NEGATIVE) 12/07/16 17:00 U Benzodiazepines Scrn Positive (NEGATIVE) H 12/07/16 17:00 U Oth Cocaine Metabols Negative (NEGATIVE) 12/07/16 17:00 U Cannabinoids Screen Negative (NEGATIVE) 12/07/16 17:00 Blood Type O POSITIVE 12/07/16 00:09 Blood Type Confirm O POSITIVE 12/07/16 03:00 Antibody Screen Negative 12/07/16 00:09 Crossmatch See Detail 12/07/16 00:09 BBK History Checked No verified bt 12/07/16 00:09 - Hospital Course Hospital Course: attending note; Patient seen and examined with resident. Patient is a 51 year old female with history of Crohn's disease s/p right hemicolectomy, asthma, psoriasis, anxiety, depression, perirectal abscess, Bipolar disorder, Drug abuse, Opiate dependence and non-compliance with follow up here for evaluation of abdominal pain and found to have sepsis secondary to peirectal abscess s/p IR guided drainage and s/p ex lap, removal of phlegmon, diverting colostomy. POD #11. seen by surgery today. anna removed. Colostomy care education given. OR pathology showed as mucinous adenocarcinoma most likely secondary from colon. seen by DR. Briseno. Needs colonoscopy in 4 weeks. Needs PET scan as outpatient. GI consult appreciated for possible outpatient colonoscopy. Will follow up with DR. quezada in few weeks for colonoscopy/rectal EUS. Opiate abuse; on OxyContin and oxycodone. Will follow up with PMD for meds. Bipolar disorder; continue psych medication. discharge home today. Upon discharge patient will follow-up with PMD Dr. Chung. diagnosis; Crohn's disease Colostomy mucinous adenocarcinoma Bipolar disorder Drug abuse Opiate dependency
[2016-12-18] MEDS: Hydrocortisone 1% Cream (30 GM) TOP SCH (09:28)
[2016-12-18] MEDS: oxyCODONE 20 mg ER Tab (oxyCONTIN) PO SCH (09:29)
[2016-12-18] MEDS: Hydrocortisone-Pramoxine 1%-1% Foam(10 gm) TOP SCH (09:31)
--- NOTE | 2016-12-18 12:13 | CP.PCM.PN ---
Subjective - Date & Time of Evaluation Date of Evaluation: 12/18/16 Time of Evaluation: 12:12 - Subjective Subjective: SURGERY PROGRESS NOTE FOR DR. DIAMOND 51F seen and examined at bedside. LYNNETTE, Patient doing well. Objective - Vital Signs/Intake and Output Vital Signs (last 24 hours): Temp Pulse Resp BP Pulse Ox 98.4 F 57 L 20 98/66 L 94 L 12/18/16 08:21 12/18/16 08:21 12/18/16 08:21 12/18/16 09:31 12/18/16 08:21 Intake and Output: 12/18/16 12/18/16 06:59 18:59 Intake Total 780 Balance 780 - Medications Medications: Current Medications Acetaminophen (Tylenol 325mg Tab) 650 mg PO Q6H PRN PRN Reason: Pain, moderate (4-7) Last Admin: 12/08/16 20:36 Dose: 650 mg Al Hydrox/Mg Hydrox/Simethicone (Maalox Plus 30 Ml) 30 ml PO DAILY PRN PRN Reason: Indigestion / Heartburn Clonazepam (Klonopin) 1 mg PO Q8H [facility] PRN Reason: Protocol Last Admin: 12/17/16 17:21 Dose: 1 mg Docusate Sodium (Colace) 100 mg PO TID [facility] Last Admin: 12/17/16 18:23 Dose: Not Given Escitalopram Oxalate (Lexapro) 10 mg PO DAILY [facility] Last Admin: 12/18/16 09:29 Dose: 10 mg Gabapentin (Neurontin) 800 mg PO TID [facility] PRN Reason: Protocol Last Admin: 12/18/16 09:29 Dose: 800 mg Heparin Sodium (Porcine) (Heparin) 5,000 units SC Q12 [facility] PRN Reason: Protocol Last Admin: 12/18/16 09:28 Dose: Not Given Hydrocortisone (Cortizone 1% Cream) 0 gm TOP BID [facility] Last Admin: 12/18/16 09:28 Dose: 1 appl Hydrocortisone/Pramoxine (Proctofoam) 1 gm TOP TID [facility] Last Admin: 12/18/16 09:31 Dose: Not Given Meropenem 1g/NS 100mL IVPB (Meropenem 1g/Ns 100ml Ivpb) 100 mls @ 100 mls/hr IVPB Q8H [facility] Last Admin: 12/18/16 09:28 Dose: Not Given Ondansetron HCl (Zofran Inj) 4 mg IVP Q8 PRN PRN Reason: Nausea/Vomiting Oxycodone HCl (Oxycodone Immediate Release Tab) 15 mg PO Q4 PRN PRN Reason: Pain, severe (8-10) Last Admin: 12/18/16 00:53 Dose: 15 mg Oxycodone HCl (Oxycontin Extended Release Tab) 60 mg PO Q12 [facility] Last Admin: 12/18/16 09:29 Dose: 60 mg Pantoprazole Sodium (Protonix Ec Tab) 40 mg PO 0630 [facility] Last Admin: 12/18/16 07:42 Dose: Not Given Quetiapine Fumarate (Seroquel) 200 mg PO BID [facility] PRN Reason: Protocol Last Admin: 12/17/16 17:21 Dose: 200 mg Simethicone (Mylicon Chew Tab) 80 mg PO PC PRN PRN Reason: GI distress Last Admin: 12/09/16 17:12 Dose: 80 mg Zolpidem Tartrate (Ambien) 5 mg PO HS [facility] PRN Reason: Protocol Last Admin: 12/18/16 03:22 Dose: Not Given - Labs Labs: 12/17/16 07:45 12/17/16 12:03 PT 13.4 Seconds (9.9-11.8) H 12/07/16 08:14 INR 1.24 (0.93-1.08) H 12/07/16 08:14 APTT 31.0 Seconds (23.7-30.8) H 12/07/16 08:14 - Constitutional Appears: Non-toxic, No Acute Distress - Head Exam Head Exam: ATRAUMATIC - Eye Exam Eye Exam: EOMI, PERRL - Respiratory Exam Respiratory Exam: Clear to Ausculation Bilateral, NORMAL BREATHING PATTERN - Cardiovascular Exam Cardiovascular Exam: REGULAR RHYTHM, +S1, +S2 - GI/Abdominal Exam GI & Abdominal Exam: Soft, Tenderness. absent: Distended, Firm, Guarding, Rigid , Rebound Additional comments: anna removed and steri-strips placed. Ostomy pink and patent. - Rectal Exam Additional comments: packing in place and changed. - Neurological Exam Neurological Exam: Alert, Awake - Skin Skin Exam: Dry, Intact, Normal Color, Warm Assessment and Plan - Assessment and Plan (Free Text) Assessment: 51F w. perirectal abscess and stricture of rectum s/p diverting end colostomy w / drainage of perirectal phlegmon, POD#11 - Removed every staple with steristrips - Cont ostomy care outpatient - cont daily packing change outpatient/ED - pt can go home - GI/DVT ppx Further recs discuss with Dr. Kaia Coburn, PGY1
[2016-12-18 12:54] VITALS: BP 100/70
== END 2016-12-18 17:24 | disposition home or self-care (01) | DRG 585 ==
LOC: ED 11:38 → EROBSV 17:52 → ERH 18:31 → OBSVTOIN 18:31 → ERH 21:21 → 5RNO 22:42 → CCU 12-07 14:24 → 5RNO 12-09 12:56
PROVIDERS: ADMIT Internal Medicine; ATTEND Internal Medicine
PROC: 0D9P3ZZ Drainage of Rectum, Percutaneous Approach (ICD-10-PCS; 2016-12-02)
PROC: 0D9P8ZZ Drainage of Rectum, Via Natural or Artificial Opening Endoscopic (ICD-10-PCS; 2016-12-05)
PROC: 05HM33Z Insertion of Infusion Device into Right Internal Jugular Vein, Percutaneous Approach (ICD-10-PCS; 2016-12-05)
PROC: 0DBS0ZZ (ICD-10-PCS; 2016-12-07)
PROC: 0D9P0ZZ Drainage of Rectum, Open Approach (ICD-10-PCS; 2016-12-07)
PROC: 0D1N0Z4 Bypass Sigmoid Colon to Cutaneous, Open Approach (ICD-10-PCS; principal; 2016-12-07 08:37)
DX: C18.9 Malignant neoplasm of colon, unspecified (principal); A41.9 Sepsis, unspecified organism; R65.21 Severe sepsis with septic shock; K61.1 Rectal abscess; K50.914 Crohn's disease, unspecified, with abscess; F11.20 Opioid dependence, uncomplicated; E83.42 Hypomagnesemia; E87.5 Hyperkalemia; F14.10 Cocaine abuse, uncomplicated; E87.6 Hypokalemia; K66.0 Peritoneal adhesions (postprocedural) (postinfection); L40.9 Psoriasis, unspecified; J45.909 Unspecified asthma, uncomplicated; F41.9 Anxiety disorder, unspecified; F31.9 Bipolar disorder, unspecified; F10.10 Alcohol abuse, uncomplicated; L30.9 Dermatitis, unspecified; Z16.24 Resistance to multiple antibiotics; D64.9 Anemia, unspecified; K62.4 Stenosis of anus and rectum; B96.20 Unspecified Escherichia coli [E. coli] as the cause of diseases classified elsewhere; R59.1 Generalized enlarged lymph nodes; Z87.01 Personal history of pneumonia (recurrent); Z91.14 Patient's other noncompliance with medication regimen; Z91.19 Patient's noncompliance with other medical treatment and regimen; Z59.0 Homelessness

== ENCOUNTER 2016-12-26 06:55 | Observation (INO) | payer OTHER ==
[2016-12-26 07:05] VITALS: BMI 23.8
[2016-12-26 07:08] VITALS: RESP 18; TEMP 97.7
[2016-12-26] MEDS ORDERED: Sodium Chloride 0.9% 1,000 ML IV STA (07:36)
[2016-12-26] MEDS ORDERED: Iohexol 240 (50 ml) ONE (07:37)
--- NOTE | 2016-12-26 07:43 | ED PDOC ---
Arrival/HPI <Charli Guerra - Last Filed: 12/26/16 12:31> - History of Present Illness Time/Duration: < week Quality: Cramping Severity Level: 10 Activities at Onset: Rest <Precious Rizvi - Last Filed: 12/26/16 15:24> - General Chief Complaint: Abdominal Pain Time Seen by Provider: 12/26/16 07:15 - History of Present Illness Narrative History of Present Illness (Text): 12/26/16 07:35 51 yo F w h/o complicated Chron's disease s/p ex-lap with colostomy, mucinous adnocarcinoma, depression, bipolar disorder, narcotic dependence presents to ED with 2 days h/o constant, 10/10, sharp, stabbing, cramping abdominal pain around vertical incision scar. Patient was discharged home from [facility] on 12/18 following admission and management for perirectal abscess and rectal stricture requiring diverting end colostomy with drainage of perirectal phlegmon 12/08/2016 ; pathology revealed mucinous adenocarcinoma. Patient describes abdominal pain as constant, 10/10, cramping, "feeling like contractions." Patient was laying down when the pain started at home. Pain medications improve the pain. Nothing specific worsens the pain, according tot he patient. She admits to some nausea without vomiting and chills. Patient denies diarrhea, CP, SOB, new rashes, fevers, edema. She states she has not followed up with Surgery (Dr. Marti) , GI (Dr. Moreno), or Hematology/Oncology (Dr. Briseno) since discharge last week . Patient currently denies suicidal ideations. (Precious Rizvi) Past Medical History - Provider Review Nursing Documentation Reviewed: Yes - Travel History Have you recently traveled outside [place] w/in the past 3 mons?: No - Infectious Disease Hx of Infectious Diseases: None - Tetanus Immunization Tetanus Immunization: Unknown - Cardiac Hx Cardiac Disorders: No - Pulmonary Hx Respiratory Disorders: Yes Hx Asthma: Yes Hx Pneumonia: Yes - Neurological Hx Neurological Disorder: No - HEENT Hx HEENT Disorder: No - Renal Hx Renal Disorder: No - Endocrine/Metabolic Hx Endocrine Disorders: No - Hematological/Oncological Hx Blood Transfusions: No Hx Blood Transfusion Reaction: No - Integumentary Hx Dermatological Disorder: Yes Hx Eczema: Yes (flare up noted on stomach/back/bilateral upper and lower extremities) Hx Psoriasis: Yes - Musculoskeletal/Rheumatological Hx Musculoskeletal Disorders: Yes Hx Falls: Yes Other/Comment: passed out x 1 - Gastrointestinal Hx Gastrointestinal Disorders: Yes Hx Crohn's Disease: Yes (10 years ) - Genitourinary/Gynecological Hx Genitourinary Disorders: No - Psychiatric Hx Psychophysiologic Disorder: Yes Hx Anxiety: Yes Hx Substance Use: No - Surgical History Other/Comment: PT reports a Rt hemicolectomy without stoma placement done 5years ago. - Anesthesia Hx Anesthesia Reactions: No Hx Malignant Hyperthermia: No - Suicidal Assessment Feels Threatened In Home Enviroment: No <Precious Rizvi - Last Filed: 12/26/16 15:24> Family/Social History - Physician Review Nursing Documentation Reviewed: Yes Family/Social History: No Known Family HX Smoking Status: Current Some Days Smoker Hx Alcohol Use: Yes Hx Substance Use: No Substance used: Xanax Hx Substance Use Treatment: No <Precious Rizvi - Last Filed: 12/26/16 15:24> Allergies/Home Meds <Charli Guerra - Last Filed: 12/26/16 12:31> <Precious Rizvi - Last Filed: 12/26/16 15:24> Allergies/Adverse Reactions: Allergies morphine Allergy (Verified 12/01/16 12:49) RASH Review of Systems - Physician Review All systems were reviewed & negative as marked: Yes - Review of Systems Constitutional: absent: Fatigue, Fevers Eyes: Normal. absent: Vision Changes Respiratory: Normal. absent: Cough, Wheezing Cardiovascular: absent: Chest Pain, Palpitations, Calf Pain Gastrointestinal: Abdominal Pain (lower abdomen below umbilicus) Genitourinary Female: absent: Dysuria, Frequency Musculoskeletal: absent: Back Pain, Neck Pain Skin: Rash (chronic psoriasis ). absent: Skin Lesions Neurological: absent: Dizziness, Focal Weakness Endocrine: absent: Diaphoresis Psychiatric: Anxiety, Depression. absent: Suicidal Ideation <Precious Rizvi - Last Filed: 12/26/16 15:24> Physical Exam Temperature: Afebrile Blood Pressure: Normal Pulse: Regular Respiratory Rate: Normal Appearance: Positive for: Well-Appearing, Non-Toxic Pain Distress: Moderate Mental Status: Positive for: Alert and Oriented X 3 - Systems Exam Head: Present: Atraumatic, Normocephalic Pupils: Present: PERRL Extroacular Muscles: Present: EOMI Conjunctiva: No: Injected, Icteric Mouth: Present: Dry. No: Normal Teeth (poor dentition) Nose (External): Present: Atraumatic Neck: Present: Normal Range of Motion. No: Meningeal Signs, JVD Respiratory/Chest: Present: Clear to Auscultation, Good Air Exchange, Decreased Breath Sounds (slightly). No: Respiratory Distress, Accessory Muscle Use, Wheezes, Rales, Rhonchi Cardiovascular: Present: Regular Rate and Rhythm, Normal S1, S2. No: Murmurs Abdomen: Present: Tenderness (around verical ex-lap scar), Guarding (voluntary) , Ostomy Tubes (LLQ colostomy), Scars (vertical ex-lap scar lower abdomen). No : Distention, Normal Bowel Sounds (mildly diminished), Peritoneal Signs, Rebound Upper Extremity: Present: Normal Inspection. No: Cyanosis, Edema Lower Extremity: Present: Normal Inspection. No: Edema, CALF TENDERNESS Neurological: Present: GCS=15, CN II-XII Intact, Speech Normal Skin: Present: Warm, Dry, Rashes (diffuse small psoritatic patches), Normal Color. No: Diaphoretic Psychiatric: Present: Alert, Oriented x 3 <Precious Rizvi - Last Filed: 12/26/16 15:24> Vital Signs Temp Pulse Resp BP Pulse Ox 12/26/16 14:51 76 18 122/91 H 99 12/26/16 12:33 68 18 115/75 100 12/26/16 09:09 67 18 112/74 99 12/26/16 07:35 71 18 104/73 97 12/26/16 07:05 97.7 F 73 18 124/78 95 Medical Decision Making <Charli Guerra - Last Filed: 12/26/16 12:31> Re-evaluation Time: 09:22 Reassessment Condition: Re-examined, Unchanged - Lab Interpretations I have reviewed the lab results: Yes - RAD Interpretation Die Welder: Radiologist <Precious Rizvi - Last Filed: 12/26/16 15:24> ED Course and Treatment: A 51 year old female with abdominal pain. In agreement with resident note, which includes further HPI details. Patient was seen and evaluated with resident , came up with plan and treatment together. 12/26/16 12:31 On re-evaluation, patient states she feels stressed at home. Patient reports she takes Klonopin, Seroquel and Ambien. Patient is requesting to see PES and be admitted to the hospital. She denies any drug or alcohol use, suicidal ideation or homicidal ideation. Patient evaluated at bedside by surgery, who state patient has packing at home and is able to change it herself. Instructed patient to follow up with Dr. Marti in 2 weeks for minor I&D procedure on abdominal wall. (Charli Guerra) 12/26/16 08:08 51 yo F w 10 year h/o Crohn's disease now complicated by perirectal abscess and rectal stricture requiring diverting end colostomy with drainage of perirectal phlegmon with pathology significant for mucinous adenocarcinoma presenting with severe abdominal pain. CT A/P with IV and PO contrast to r/o obstruction, abscess, intrabdominal pathology; labs, IVF, pain meds, NPO. 12/26/16 09:21 Patient re-evaluated. Standing and ambulating without difficulty. Admits to significant abdominal pain, minimal relief after 1mg IV dilaudid. Will give another 2mg IV dilaudid. Labs reviewed. CT pending. 12/26/16 13:21 Patient re-evaluated. Appears very comfortable, no acute distress. Patient requests pain and anti-anxiety medication and states she would like to be seen by psychiatry and go stay there for a week so Dr. Chung will put her back on her pain medications and benzos. Concern for manipulative behavior in trying to obtain narcotic pain medications and benzodiazepines. 12/26/16 13:43 Patient seen by psychiatry nurse. 12/26/16 14:43 No psychiatry beds available at [facility]. Patient now states she is suicidal. Refuses [facility] or [facility]. 12/26/16 15:18 Patient seen again by psych. Cleared for DC. Patient given iodoform packing used for wound and thoroughly instructed to continue daily packing changes and followup with specialists. Patient expressed understanding and is in agreement for outpatient followup as soon as possible. (Precious Rizvi) - RAD Interpretation Narrative RAD Interpretations (Text): 12/26/16 15:19 CXR -- no active disease CT A/P with IV and PO contrast -- New left-sided colostomy, 4.5 x 5cm irregular fluid collection in the cul-de-sac. persistent fluid collection in left side of the pelvis. Retroperitoneal pelvic and inguinal adenopathy. (Precious Rizvi) - Medication Orders Current Medication Orders: Sodium Chloride (Sodium Chloride 0.9%) 1,000 mls @ 80 mls/hr IV .[id number] RAOUL Last Admin: 12/26/16 10:32 Dose: 80 MLS/HR eMAR Start Stop Document 12/26/16 10:32 HI (Rec: 12/26/16 10:[id number]) Intravenous Solution Start Date 12/26/16 Start Time 10:32 Discontinued Medications Hydromorphone HCl (Dilaudid) 1 mg IVP STAT STA Stop: 12/26/16 07:48 Last Admin: 12/26/16 07:58 Dose: 1 MG IVP Administration Document 12/26/16 07:58 HI (Rec: 12/26/16 08:00 [id number]) Charges for Administration # of IVP Administrations 1 Hydromorphone HCl (Dilaudid) 2 mg IVP STAT STA Stop: 12/26/16 09:21 Last Admin: 12/26/16 10:32 Dose: 2 MG IVP Administration Document 12/26/16 10:32 HI (Rec: 12/26/16 10:[id number]) Charges for Administration # of IVP Administrations 1 Sodium Chloride (Sodium Chloride 0.9%) 1,000 mls @ 999 mls/hr IV .[id number] STA Stop: 12/26/16 08:36 Last Admin: 12/26/16 08:00 Dose: 999 MLS/HR eMAR Start Stop Document 12/26/16 08:00 HI (Rec: 12/26/16 08:[id number]) Intravenous Solution Start Date 12/26/16 Start Time 08:00 Iohexol (Omnipaque 240 (50 Ml)) Confirm Administered Dose 50 ml .ROUTE .STK-MED ONE Stop: 12/26/16 07:38 Iohexol (Omnipaque 350 100 Ml) Confirm Administered Dose 350 mg .ROUTE .STK-MED ONE Stop: 12/26/16 09:44 Ondansetron HCl (Zofran Inj) 4 mg IVP ONCE PRN PRN Reason: Nausea/Vomiting Stop: 12/26/16 07:37 Polyethylene Glycol (Miralax) 17 gm PO ONCE ONE Stop: 12/26/16 12:40 Last Admin: 12/26/16 13:43 Dose: 17 GM - PA / HEALTH ADMINISTRATOR / Resident Statement /DO has reviewed & agrees with the documentation as recorded. MD/DO has examined the patient and agrees with the treatment plan. - Scribe Statement The provider has reviewed the documentation as recorded by the Scribe <Charli Guerra - Last Filed: 12/26/16 12:31> <Precious Rizvi - Last Filed: 12/26/16 15:24> - Scribe Statement Senia Johnson Provider Scribe Attestation: All medical record entries made by the Scribe were at my direction and personally dictated by me. I have reviewed the chart and agree that the record accurately reflects my personal performance of the history, physical exam, medical decision making, and the department course for this patient. I have also personally directed, reviewed, and agree with the discharge instructions and disposition. (Charli Guerra) Disposition/Present on Arrival <Charli Guerra - Last Filed: 12/26/16 12:31> - Present on Arrival Any Indicators Present on Arrival: No History of DVT/PE: No History of Uncontrolled Diabetes: No Urinary Catheter: No History of Decub. Ulcer: No History Surgical Site Infection Following: None - Disposition Have Diagnosis and Disposition been Completed?: Yes Disposition Time: 15:00 Patient Plan: Discharge <Precious Rizvi - Last Filed: 12/26/16 15:24> - Disposition Diagnosis: Abdominal pain Disposition: HOME/ ROUTINE Patient Problems: Current Active Problems Problem Status Diagnosed Abdominal pain Acute Abnormal EKG Acute Bradycardia Acute Exacerbation of Crohn's disease Acute Polysubstance abuse Acute Syncope Acute Condition: STABLE
[2016-12-26] MEDS ORDERED: HYDROmorphone 1 mg/ml ISec IVP STA (07:47)
[2016-12-26 08:00] LABS: ADD MANUAL DIFF? NO
[2016-12-26 08:05] LABS: BASO # 0.04 K/mm3 (0.0-2.0); BASO % 0.6 % (0.0-3.0); EOS # 1.4 (0.0-0.7); EOS % 19.5 % (1.5-5.0); GRAN # 3.95 (1.4-6.5); GRAN % 55.5 % (50.0-68.0); HEMATOCRIT 28.9 % (36.0-48.0); LYMPH # 1.1 (1.2-3.4); LYMPH % 15.7 % (22.0-35.0); MEAN CELL VOLUME 85.8 fL (80.0-105.0); MEAN CORPUSCULAR HEMOGLOBIN 28.2 pg (25.0-35.0); MEAN CORPUSCULAR HGB CONC 32.9 g/dl (31.0-37.0); MEAN PLATELET VOLUME 10.4 fl (7.0-11.0); MONO # 0.6 (0.1-0.6); MONO % 8.7 % (1.0-6.0); PLATELET COUNT 586 10^3/uL (120.0-450.0); RED CELL DISTRIBUTION WIDTH 17.7 % (11.5-14.5); WHITE BLOOD COUNT 7.1 10^3/ul (4.5-11.0)
[2016-12-26 08:08] LABS: URINE BILIRUBIN NEGATIVE (NEGATIVE); URINE BLOOD TRACE-LYSED (NEGATIVE); URINE GLUCOSE (UA) NEGATIVE (NEGATIVE); URINE KETONE NEGATIVE (NEGATIVE); URINE PROTEIN NEGATIVE mg/dL (<30 mg/dL); URINE UROBILINOGEN 0.2 E.U./dL (<1 E.U./dL)
[2016-12-26 08:13] LABS: URINE APPEARANCE CLEAR (CLEAR); URINE COLOR YELLOW (YELLOW)
[2016-12-26 08:22] LABS: INR 1.13 (0.93-1.08)
[2016-12-26 08:28] LABS: URINE LEUKOCYTE ESTERASE TRACE Leu/uL (NEGATIVE)
[2016-12-26 08:40] LABS: URINE BACTERIA FEW (NEG); URINE EPITHELIAL CELLS 0 - 2 /hpf (0-5); URINE RBC 0 - 2 /hpf (0-2); URINE WBC 0 - 2 /hpf (0-6)
[2016-12-26 09:20] LABS: ALB/GLOB RATIO 0.7 (1.1-1.8); ALKALINE PHOSPHATASE 75 U/L (38-133); ALT/SGPT 27 U/L (7-56); AST/SGOT 36 U/L (15-39); BILIRUBIN,TOTAL 0.6 mg/dL (0.2-1.3); BLOOD UREA NITROGEN 6 mg/dL (7-21); CALCIUM 8.9 mg/dL (8.4-10.5); CARBON DIOXIDE 24 mmol/L (21-33); CHLORIDE 108 mmol/L (98-107); GFR AFRICAN-AMERICAN > 60; GLUCOSE,RANDOM 86 mg/dL (70-110); LIPASE 15 U/L (23-300); POTASSIUM 3.6 mmol/L (3.6-5.0); SODIUM 141 mmol/L (132-148); TOTAL PROTEIN 7.1 g/dL (5.8-8.3)
[2016-12-26] MEDS ORDERED: HYDROmorphone 2 mg/ml ISec IVP STA (09:20)
[2016-12-26] MEDS ORDERED: Sodium Chloride 0.9% 1,000 ML IV SCH (09:30)
[2016-12-26] MEDS ORDERED: Iohexol 350 MG/100 ML VIAL ONE (09:43)
--- NOTE | 2016-12-26 11:17 | CT ---
PROCEDURE: CT Abdomen and Pelvis with contrast HISTORY: recent colostomy, ex-lap, r/o infnx, abscess, etc COMPARISON: 12/05/2016 TECHNIQUE: Contrast dose: 100 cc of Omni 350 Radiation dose: Total exam DLP = 363 mGy-cm. This CT exam was performed using one or more of the following dose reduction techniques: Automated exposure control, adjustment of the mA and/or kV according to patient size, and/or use of iterative reconstruction technique. FINDINGS: LOWER THORAX: Unremarkable. LIVER: Unremarkable. No gross lesion or ductal dilatation. GALLBLADDER AND BILE DUCTS: Unremarkable. PANCREAS: Unremarkable. No gross lesion or ductal dilatation. SPLEEN: Unremarkable. ADRENALS: Unremarkable. No mass. KIDNEYS AND URETERS: The renal collecting systems are mildly dilated left greater than right. VASCULATURE: Unremarkable. No aortic aneurysm. BOWEL: There is now a left-sided colostomy there is a moderate amount of stool in the colon. APPENDIX: Normal appendix. PERITONEUM: There is a 4.5 x 5 cm irregular fluid collection in the cul-de-sac. This is better seen on this postcontrast study but appears to be present on the previous study. There is a persistent fluid collection along the left side of the pelvis measuring 4 x 6 cm. LYMPH NODES: There is retroperitoneal pelvic and inguinal adenopathy unchanged BLADDER: Unremarkable. REPRODUCTIVE: Unremarkable. BONES: No acute fracture. OTHER FINDINGS: None. IMPRESSION: Fluid collection in the cul-de-sac. Persistent fluid collection in the left side of the pelvis. Retroperitoneal pelvic and inguinal adenopathy. New left-sided colostomy
[2016-12-26] MEDS ORDERED: POLYETHYLENE GLYCOL 3350 17 GM/Dose PACKET PO ONE (12:39)
--- NOTE | 2016-12-26 13:25 | CP.PCM.CON ---
<Lewis Bliss - Last Filed: 12/26/16 17:12> History of Present Illness - History of Present Illness History of Present Illness: Surgery Consult Note. Dr. Marti 51yo F with PMHx of Crohn's, Psoriasis, Asthma, Anxiet, ETOH abuse, Drug abuse, here for eval of abdominal pain. Patient was discharged from the hospital on 12/18 after undergoing a diverting colostomy on 12/07/16, perirectal phlegmon. Pathology of perirectal phlegmon revealed a mucinous adenocarcinoma of the rectum. Patient returns to the ER today for evaluation of abdominal pain. Patient has a history of opiod abuse. She states that she saw his primary care physician and was prescribed 90 pills of oxycodone 15mg (states she has about 40 remaining). She states she has been taking 4 pills a day. She states that her ostomy has been having good output requiring her to empty about 3 times a day. However, over the past 2 days, she has only needed to empty once a day and states that the quality of output is more firm. Also c/o nausea, no vomiting. She also states that she has some midline vlad-incisional pain over the past few days. Denies any drainage, fever, or chills. No CP/SOB. No Headache. PMH:Crohn's, Psoriasis, Asthma, Anxiety, Alcohol abuse, Drug abuse. PSH: Right hemicolectomy. Diverting colostomy 12/07/16. Drainage of right perirectal phlegmon with + pathology for mucinous adenocarcinoma Social: she denied tobacco, alcohol. States that she is currently taking 15mg Oxycodone 4 times a day currently. As per chart, patient has a hx of opiod abuse Review of Systems - Review of Systems All systems: reviewed and no additional remarkable complaints except - Constitutional Constitutional: absent: Chills, Fever - Gastrointestinal Gastrointestinal: Abdominal Pain, Nausea. absent: Diarrhea, Vomiting Additional comments: ostomy in place Past Patient History - Infectious Disease Hx of Infectious Diseases: None - Tetanus Immunizations Tetanus Immunization: Unknown - Past Medical History & Family History Past Medical History?: Yes - Past Social History Smoking Status: Current Some Days Smoker - CARDIAC Hx Cardiac Disorders: No - PULMONARY Hx Respiratory Disorders: Yes Hx Asthma: Yes Hx Pneumonia: Yes - NEUROLOGICAL Hx Neurological Disorder: No - HEENT Hx HEENT Problems: No - RENAL Hx Chronic Kidney Disease: No - ENDOCRINE/METABOLIC Hx Endocrine Disorders: No - HEMATOLOGICAL/ONCOLOGICAL Hx Blood Transfusions: No Hx Blood Transfusion Reaction: No - INTEGUMENTARY Hx Dermatological Problems: Yes Hx Eczema: Yes (flare up noted on stomach/back/bilateral upper and lower extremities) Hx Psoriasis: Yes - MUSCULOSKELETAL/RHEUMATOLOGICAL Hx Musculoskeletal Disorders: Yes Hx Falls: Yes Other/Comment: passed out x 1 - GASTROINTESTINAL Hx Gastrointestinal Disorders: Yes Hx Crohn's Disease: Yes (10 years ) - GENITOURINARY/GYNECOLOGICAL Hx Genitourinary Disorders: No - PSYCHIATRIC Hx Psychophysiologic Disorder: Yes Hx Anxiety: Yes Hx Substance Use: No - SURGICAL HISTORY Other/Comment: PT reports a Rt hemicolectomy without stoma placement done 5years ago. - ANESTHESIA Hx Anesthesia Reactions: No Hx Malignant Hyperthermia: No Meds Allergies/Adverse Reactions: Allergies Allergy/AdvReac Type Severity Reaction Status Date / Time morphine Allergy RASH Verified 02/11/17 09:22 - Medications Medications: Current Medications Sodium Chloride (Sodium Chloride 0.9%) 1,000 mls @ 80 mls/hr IV .[id number] RAOUL Last Admin: 12/26/16 10:32 Dose: 80 mls/hr Physical Exam - Constitutional Appears: Well, No Acute Distress - Head Exam Head Exam: ATRAUMATIC, NORMAL INSPECTION, NORMOCEPHALIC - Eye Exam Eye Exam: EOMI, Normal appearance - ENT Exam ENT Exam: Mucous Membranes Moist - Respiratory Exam Respiratory Exam: NORMAL BREATHING PATTERN - Cardiovascular Exam Cardiovascular Exam: RRR. absent: JVD - GI/Abdominal Exam GI & Abdominal Exam: Soft Additional comments: diffusely tender to palpation. Ostomy site clean and intact, pink, no pain, no erythema, no signs of necrosis. Midline incision well approximated. Inferior aspect of incision with some erythema, fluctuance and induration. - Extremities Exam Extremities exam: Positive for: normal inspection - Neurological Exam Neurological exam: Alert, Oriented x3 - Psychiatric Exam Psychiatric exam: Anxious Results - Vital Signs Recent Vital Signs: Last Vital Signs Temp 97.7 F 12/26/16 07:05 Pulse 68 12/26/16 12:33 Resp 18 12/26/16 12:33 BP 115/75 12/26/16 12:33 Pulse Ox 100 12/26/16 12:33 - Labs Result Diagrams: 12/26/16 07:50 12/26/16 08:55 Labs: Laboratory Results - last 24 hr 12/26/16 12/26/16 07:50 08:55 WBC 7.1 D RBC 3.37 L Hgb 9.5 L Hct 28.9 L MCV 85.8 MCH 28.2 MCHC 32.9 RDW 17.7 H Plt Count 586 H MPV 10.4 Gran % 55.5 Lymph % (Auto) 15.7 L [place] % (Auto) 8.7 H Eos % (Auto) 19.5 H Baso % (Auto) 0.6 Gran # 3.95 Lymph # 1.1 L [place] # 0.6 Eos # 1.4 H Baso # 0.04 PT 12.2 H INR 1.13 H APTT 27.0 Sodium 141 Potassium 3.6 Chloride 108 H Carbon Dioxide 24 Anion Gap 13 BUN 6 L Creatinine 0.8 Est GFR ( Amer) > 60 Est GFR (Non-Af Amer) > 60 Random Glucose 86 Calcium 8.9 Total Bilirubin 0.6 AST 36 ALT 27 Alkaline Phosphatase 75 Total Protein 7.1 Albumin 2.9 L Globulin 4.2 Albumin/Globulin Ratio 0.7 L Lipase 15 L Urine Color Yellow Urine Appearance Clear Urine pH 6.0 Ur Specific [place] <= 1.005 Urine Protein Negative Urine Glucose (UA) Negative Urine Ketones Negative Urine Blood Trace-lysed H Urine Nitrate Negative Urine Bilirubin Negative Urine Urobilinogen 0.2 Ur Leukocyte Esterase Trace H Urine RBC 0 - 2 Urine WBC 0 - 2 Ur Epithelial Cells 0 - 2 Urine Bacteria Few Urine HCG, Qual Negative Assessment & Plan - Assessment and Plan (Free Text) Assessment: 51yo F s/p diverting colostomy on 12/07/16, perirectal abscess pathology with mucinous adenocarcinoma of colonic origin. Here for abdominal pain. Patient with hard stool from ostomy for past 2 days in the setting of increased opiod use. - CT abd/pelvis - no acute findings, no evidence of obstruction, pelvic fluid stable from previous studies. - Miralax dose given. Recommend OTC Colace use as directed - Seroma at inferior aspect of midline incision. Bedside Incision and drainage performed. Expressed serousanguinous fluid. Packed with 1/4in. iodoform packing. Patient tolerated procedure well. No complications. - Patient agrees to pack the wound herself daily. - Recommend evaluation by processing specialist as out-patient - No further surgical intervention at this time. - follow up with Dr. Marti in 2 weeks. Call for appointment. Discussed case with Dr. Kaia Bliss PGY1 surgery pager: [phone] <Dheeraj Marti - Last Filed: 04/14/17 22:17> Results - Vital Signs Recent Vital Signs: Last Vital Signs Temp 97.7 F 12/26/16 07:05 Pulse 76 12/26/16 14:51 Resp 18 12/26/16 14:51 BP 122/91 H 12/26/16 14:51 Pulse Ox 99 12/26/16 14:51 - Labs Result Diagrams: 12/26/16 07:50 12/26/16 08:55 Assessment & Plan - Assessment and Plan (Free Text) Plan: Patient was seen and examined by me. I agree with assessment and plan as per resident's note. - Date & Time Date: 12/26/16 Time: 14:10
--- NOTE | 2016-12-26 13:45 | RAD ---
HISTORY: psych COMPARISON: 12/05/2016 FINDINGS: LUNGS: No active pulmonary disease. PLEURA: No significant pleural effusion identified, no pneumothorax apparent. CARDIOVASCULAR: Normal. OSSEOUS STRUCTURES: No significant abnormalities. VISUALIZED UPPER ABDOMEN: Normal. OTHER FINDINGS: None. IMPRESSION: No active disease.
[2016-12-26 14:51] VITALS: BP 122/91; PULSE 76; O2SAT 99
== END 2016-12-26 15:19 | disposition home or self-care (01) ==
LOC: ED 06:55 → EROBSV 07:33
PROVIDERS: ADMIT Emergency Medicine; ATTEND Emergency Medicine
DX: R10.9 Unspecified abdominal pain (principal)
CPT/HCPCS: 36415; 71010; 74177; 80053; 80320; 80329; 81001; 83690; 84703; 85025; 85610; 85730; 87086; 90791; 96374; 96376; 99285; G0378; J1170; J7040; Q9966; Q9967

== ENCOUNTER 2017-01-30 20:46 | Observation (INO) | payer OTHER ==
[2017-01-30 21:04] VITALS: BMI 24.0
--- NOTE | 2017-01-30 22:04 | ED PDOC ---
Arrival/HPI - General Chief Complaint: Abdominal Pain Time Seen by Provider: 01/30/17 21:14 Historian: Patient - History of Present Illness Narrative History of Present Illness (Text): 01/30/17 21:51 This 51 yo female with pmh bipolar, Colon Ca., asthma, presents to this ED c/o feeling weak with nausea, intermittent vomiting, abdominal pain, left lower leg swelling, sob, intermittent CP x 7 days. Patient has been mostly bed rest due to feeling tired. Patient noted she had colon resection in November 2016 due to Colon Ca. Patient spent 3 weeks in the hospital. Dr. Lucas has not start chemo yet. Patient denies fever, sick contact, rash, hematuria, urinary symptoms, vaginal bleeding or bleeding from colostomy. Dr. Chung, PMD Time/Duration: 1 week Quality: Aching Context: Home Past Medical History - Provider Review Nursing Documentation Reviewed: Yes - Infectious Disease Hx of Infectious Diseases: None - Tetanus Immunization Tetanus Immunization: Unknown - Cardiac Hx Cardiac Disorders: No - Pulmonary Hx Respiratory Disorders: Yes Hx Asthma: Yes Hx Pneumonia: Yes - Neurological Hx Neurological Disorder: No - HEENT Hx HEENT Disorder: No - Renal Hx Renal Disorder: No - Endocrine/Metabolic Hx Endocrine Disorders: No - Hematological/Oncological Hx Blood Transfusions: No Hx Blood Transfusion Reaction: No - Integumentary Hx Dermatological Disorder: Yes Hx Eczema: Yes (flare up noted on stomach/back/bilateral upper and lower extremities) Hx Psoriasis: Yes - Musculoskeletal/Rheumatological Hx Musculoskeletal Disorders: Yes Hx Falls: Yes Other/Comment: passed out x 1 - Gastrointestinal Hx Gastrointestinal Disorders: Yes Hx Crohn's Disease: Yes (10 years ) - Genitourinary/Gynecological Hx Genitourinary Disorders: No - Psychiatric Hx Psychophysiologic Disorder: Yes Hx Anxiety: Yes Hx Substance Use: No - Surgical History Other/Comment: PT reports a Rt hemicolectomy without stoma placement done 5years ago. - Anesthesia Hx Anesthesia Reactions: No Hx Malignant Hyperthermia: No - Suicidal Assessment Feels Threatened In Home Enviroment: No Family/Social History - Physician Review Nursing Documentation Reviewed: Yes Family/Social History: No Known Family HX Smoking Status: Current Some Days Smoker Hx Alcohol Use: Yes Hx Substance Use: No Substance used: Xanax Hx Substance Use Treatment: No Allergies/Home Meds Allergies/Adverse Reactions: Allergies morphine Allergy (Verified 12/01/16 12:49) RASH Review of Systems - Review of Systems Constitutional: Fatigue. absent: Weight Change, Fevers Eyes: Normal. absent: Vision Changes ENT: Normal. absent: Sore Throat, Rhinorrhea Respiratory: SOB. absent: Cough, Sputum, Wheezing Cardiovascular: Chest Pain, Calf Pain. absent: Palpitations, Orthopnea, Syncope Gastrointestinal: Abdominal Pain, Nausea, Vomiting Genitourinary Female: Normal. absent: Dysuria, Frequency, Hematuria, Vaginal Bleeding, Vaginal Discharge Musculoskeletal: Other (Left lower leg swelling). absent: Back Pain, Neck Pain Skin: Normal. absent: Rash Neurological: Normal Endocrine: Normal Hemo/Lymphatic: Normal Psychiatric: Normal Physical Exam Vital Signs Temp Pulse Resp BP Pulse Ox 01/31/17 00:35 76 16 114/40 L 99 01/31/17 00:00 62 18 91/51 L 99 01/30/17 22:30 71 16 92/52 L 98 01/30/17 21:01 99.6 F 81 20 92/61 L 93 L Temperature: Afebrile Blood Pressure: Normal Pulse: Regular Respiratory Rate: Normal Appearance: Positive for: Well-Appearing, Non-Toxic, Comfortable Pain Distress: None Mental Status: Positive for: Alert and Oriented X 3 - Systems Exam Head: Present: Atraumatic, Normocephalic Pupils: Present: PERRL Extroacular Muscles: Present: EOMI Conjunctiva: Present: Normal Mouth: Present: Moist Mucous Membranes Neck: Present: Normal Range of Motion, Trachea Midline. No: Meningeal Signs Respiratory/Chest: Present: Clear to Auscultation, Good Air Exchange. No: Respiratory Distress, Accessory Muscle Use, Wheezes, Rales, Retracting, Rhonchi Cardiovascular: Present: Regular Rate and Rhythm, Normal S1, S2. No: Murmurs Abdomen: Present: Normal Bowel Sounds. No: Tenderness, Distention, Peritoneal Signs, Rebound, Guarding Back: Present: Normal Inspection. No: CVA Tenderness Upper Extremity: Present: Normal Inspection, Normal ROM, Neurovascularly Intact , Capillary Refill < 2s. No: Cyanosis, Edema Lower Extremity: Present: Edema, CALF TENDERNESS, NORMAL PULSES, Normal ROM, Brock's Sign, Tenderness, Swelling, Neurovascularly Intact, Capillary Refill < 2 s, Other ((+) entire left lower leg is swollen, edematous + 2, ). No: Erythema, Deformity Neurological: Present: GCS=15, CN II-XII Intact, Speech Normal, Motor Func Grossly Intact, Normal Sensory Function, Normal Cerebellar Funct Skin: Present: Warm, Dry, Normal Color. No: Rashes Psychiatric: Present: Alert, Oriented x 3 Medical Decision Making ED Course and Treatment: 01/30/17 23:50 GFR is 37 , Patient renal function is decreased. Prophylactic Treatment for DVT/PE with Lovenox has been ordered. Patient labs demonstrates bandemia. Vancomycin was ordered Re-evaluation Time: 23:54 Reassessment Condition: Re-examined, Improving,but remains with symptoms - Lab Interpretations Microbiology Results: Microbiology Results 01/30/17 22:20 Blood-Venous Blood Culture - Final NO GROWTH AFTER 5 DAYS 01/30/17 22:20 Blood-Venous Gram Stain - Final TEST NOT PERFORMED 01/30/17 21:50 Blood-Venous Blood Culture - Final NO GROWTH AFTER 5 DAYS 01/30/17 21:50 Blood-Venous Gram Stain - Final TEST NOT PERFORMED 01/30/17 23:08 Urine Urine Culture - Final 10-50,000 CFU/ML. MULTIPLE SPECIES. PROBABLE CONTAMINATION. Lab Results: 01/30/17 21:50 01/30/17 21:50 Lab Results 01/30/17 23:08: Urine Color Yellow, Urine Appearance Clear, Urine pH 6.0, Ur Specific Ing[place] 1.020, Urine Protein Trace H, Urine Glucose (UA) Negative, Urine Ketones Negative, Urine Blood Negative, Urine Nitrate Negative, Urine Bilirubin Negative, Urine Urobilinogen 0.2, Ur Leukocyte Esterase Trace H, Urine RBC 2 - 5, Urine WBC 5 - 10, Ur Epithelial Cells 3 - 4, Urine Bacteria Small 01/30/17 21:50: Sodium 134, Chloride 106, Potassium 4.2, Carbon Dioxide 20 L, Anion Gap 12, BUN 17, Creatinine 1.5 H, Est GFR ( Amer) 45, Est GFR (Non- Af Amer) 37, Random Glucose 83, Calcium 9.0, Total Bilirubin 0.8, AST 32, ALT 18 , Alkaline Phosphatase 110, Lactate Dehydrogenase 1188 H, Total Creatine Kinase 87, Troponin I < 0.01, NT-Pro-B Natriuret Pep 1450 H, Total Protein 6.5, Albumin 2.9 L, Globulin 3.7, Albumin/Globulin Ratio 0.8 L 01/30/17 21:50: pO2 59 H, VBG pH 7.30 L, VBG pCO2 46.0, VBG HCO3 22.6, VBG Total CO2 24.0, VBG O2 Sat (Calc) 91.7 H, VBG Base Excess -3.7 L, VBG Potassium 4.4, Sodium 135.0, Chloride 112.0 H, Glucose 83, Lactate 1.0, FiO2 21.0, Venous Blood Potassium 4.4 01/30/17 21:50: PT 13.3 H, INR 1.23 H, APTT 28.0 01/30/17 21:50: WBC 10.2 D, RBC 3.03 L, Hgb 8.4 L, Hct 25.7 L, MCV 84.8, MCH 27.7, MCHC 32.7, RDW 17.7 H, Plt Count 175, MPV 11.1 H, Neutrophils % (Manual) 54, Band Neutrophils % 17 H*, Lymphocytes % (Manual) 25, Atypical Lymphs % 1 H, Monocytes % (Manual) 1, Eosinophils % (Manual) 3 I have reviewed the lab results: Yes Interpretation: Abnormal lab values - RAD Interpretation Narrative RAD Interpretations (Text): Venous doppler was negative for DVT Radiology Orders: 01/30/17 21:46 DUPLEX LOWER EXTRM VEIN LEFT [US] Stat 01/30/17 21:47 CHEST PORTABLE [RAD] Stat - EKG Interpretation Interpreted by ED Physician: Yes (NSR @ 68 bpm. Normal interval) Type: 12 lead EKG - Medication Orders Current Medication Orders: Discontinued Medications Acetaminophen (Tylenol 325mg Tab) 650 mg PO STAT STA Stop: 02/01/17 13:57 Last Admin: 02/01/17 14:08 Dose: 650 mg Re-Assess: [facility] Pain/Vitals Document 02/01/17 15:08 KO (Rec: 02/01/17 16:16 KO [id number]) Pain Reassessment Is This A Pain ReAssessment? Yes Sleep Is patient sleeping during reassessment? No Presence of Pain Presence of Pain No Acetaminophen (Tylenol 325mg Tab) 650 mg PO Q6H PRN PRN Reason: Headache Last Admin: 02/03/17 08:14 Dose: 650 mg Re-Assess: [facility] Pain/Vitals Document 02/03/17 09:14 MLK (Rec: 02/03/17 12:17 [facility] [id number]) Pain Reassessment Is This A Pain ReAssessment? Yes Sleep Is patient sleeping during reassessment? Yes Alprazolam (Xanax) 0.5 mg PO TID PRN; Protocol PRN Reason: Anxiety Last Admin: 01/31/17 22:07 Dose: 0.5 mg Clonazepam (Klonopin) 1 mg PO TID RAOUL PRN Reason: Protocol Last Admin: 02/03/17 15:00 Dose: 1 mg Re-Assess: Reassess Psych Meds Document 02/03/17 16:00 MLK (Rec: 02/03/17 16:06 [facility] [id number]) Reassess Psych Med Effective Diphenhydramine HCl (Benadryl) 25 mg PO Q6 PRN PRN Reason: Allergy symptoms Last Admin: 02/01/17 21:30 Dose: 25 mg Diphenhydramine HCl (Benadryl) 25 mg PO ONCE ONE Stop: 02/02/17 02:12 Last Admin: 02/02/17 05:34 Dose: 25 mg Comments: pt initially refused, ok to give at this time per Dr. Juarez Escitalopram Oxalate (Lexapro) 10 mg PO DAILY RAOUL Last Admin: 02/03/17 10:10 Dose: 10 mg Furosemide (Lasix) 20 mg IVP ONCE ONE Stop: 01/31/17 02:58 Last Admin: 01/31/17 03:06 Dose: 20 mg Gabapentin (Neurontin) 600 mg PO TID RAOUL PRN Reason: Protocol Last Admin: 02/03/17 15:00 Dose: 600 mg Re-Assess: Reassess Psych Meds Document 02/03/17 16:00 MLK (Rec: 02/03/17 16:06 [facility] [id number]) Reassess Psych Med Effective Heparin Sodium (Porcine) (Heparin) 5,100 units 80 units/kg (5100 units) IV ONCE ONE PRN Reason: Protocol Stop: 01/31/17 00:18 Last Admin: 01/31/17 00:47 Dose: 5,100 units Hydromorphone HCl (Dilaudid) 0.5 mg IVP STAT STA Stop: 01/31/17 00:35 Last Admin: 01/31/17 00:45 Dose: 0.5 mg Re-Assess: MAR Pain Assessment Document 01/31/17 01:45 ARYAN (Rec: 01/31/17 03:13 ARYAN [id number]) Pain Reassessment Is this a pain reassessment? Yes Sleep Is patient sleeping during reassessment? Yes Vancomycin HCl (Vancomycin 1gm) 1 gm in 250 mls @ 167 mls/hr IVPB STAT STA PRN Reason: Protocol Stop: 01/31/17 01:17 Last Admin: 01/31/17 00:46 Dose: 167 mls/hr Heparin Sodium/Sodium Chloride (Heparin 69961 Units/250ml 1/2 Normal Saline) 25 ,000 units in 250 mls @ 11.431 mls/hr IV .[id number] PRN; Protocol; 18 UNITS/KG/HR PRN Reason: ADJUST RATE PER PROTOCOL Heparin Sodium/Sodium Chloride (Heparin 74029 Units/250ml 1/2 Normal Saline) 25 ,000 units in 250 mls @ 11.251 mls/hr IV .[id number] PRN; Protocol; 18 UNITS/KG/HR PRN Reason: ADJUST RATE PER PROTOCOL Last Admin: 02/01/17 01:04 Dose: 18 units/kg/hr, 11.251 mls/hr Ceftaroline Fosamil 400 mg/ (Sodium Chloride) 100 mls @ 100 mls/hr IVPB Q12 RAOUL PRN Reason: Protocol Stop: 02/07/17 10:01 Last Admin: 02/03/17 10:09 Dose: 100 mls/hr Sodium Chloride (Sodium Chloride 0.9%) 1,000 mls @ 100 mls/hr IV .Q10H RAOUL Last Admin: 02/03/17 10:09 Dose: 100 mls/hr Ibuprofen (Motrin Tab) 400 mg PO Q6H PRN PRN Reason: Headache Last Admin: 02/01/17 06:35 Dose: 400 mg Ondansetron HCl (Zofran Inj) 4 mg IVP STAT STA Stop: 01/30/17 21:54 Last Admin: 01/30/17 22:10 Dose: 4 mg Ondansetron HCl (Zofran Inj) 4 mg IVP Q4H PRN PRN Reason: Nausea/Vomiting Last Admin: 02/02/17 21:40 Dose: 4 mg Oxycodone HCl (Oxycodone Immediate Release Tab) 15 mg PO Q12 PRN PRN Reason: Pain, severe (8-10) Last Admin: 01/31/17 02:21 Dose: 15 mg Oxycodone HCl (Oxycontin Extended Release Tab) 60 mg PO 0000,1200 RAOUL Last Admin: 02/03/17 12:48 Dose: 60 mg Re-Assess: [facility] Pain Assessment Document 02/03/17 13:48 MLK (Rec: 02/03/17 15:38 MLK [id number]) Pain Reassessment Is this a pain reassessment? Yes Sleep Is patient sleeping during reassessment? Yes Oxycodone HCl (Oxycodone Immediate Release Tab) 15 mg PO Q4 [facility] Last Admin: 01/31/17 11:56 Dose: Oxycodone HCl (Oxycodone Immediate Release Tab) 15 mg PO STAT STA Stop: 01/31/17 09:59 Last Admin: 01/31/17 10:14 Dose: 15 mg Oxycodone HCl (Oxycodone Immediate Release Tab) 15 mg PO Q4 PRN PRN Reason: Pain, severe (8-10) Last Admin: 02/03/17 08:14 Dose: 15 mg Pantoprazole Sodium (Protonix Inj) 40 mg IVP DAILY [facility] Last Admin: 02/03/17 10:10 Dose: 40 mg Quetiapine Fumarate (Seroquel) 100 mg PO HS [facility] PRN Reason: Protocol Last Admin: 02/01/17 21:30 Dose: 100 mg Re-Assess: Reassess Psych Meds Document 02/01/17 22:30 OLIVD (Rec: 02/02/17 05:36 OLIVD [id number]) Reassess Psych Med Effective Quetiapine Fumarate (Seroquel) 200 mg PO Q12H RAOUL PRN Reason: Protocol Quetiapine Fumarate (Seroquel) 200 mg PO Q12 RAOUL PRN Reason: Protocol Last Admin: 02/03/17 10:10 Dose: 200 mg Re-Assess: Reassess Psych Meds Document 02/03/17 11:10 MLK (Rec: 02/03/17 12:16 MLK [id number]) Reassess Psych Med Effective Disposition/Present on Arrival - Present on Arrival Any Indicators Present on Arrival: No History of DVT/PE: No History of Uncontrolled Diabetes: No Urinary Catheter: No History of Decub. Ulcer: No History Surgical Site Infection Following: None - Disposition Have Diagnosis and Disposition been Completed?: Yes Diagnosis: Cellulitis Disposition: HOSPITALIZED Disposition Time: 23:55 Condition: GOOD
[2017-01-30 22:07] LABS: HEMATOCRIT 25.7 % (36.0-48.0); MEAN CELL VOLUME 84.8 fL (80.0-105.0); MEAN CORPUSCULAR HEMOGLOBIN 27.7 pg (25.0-35.0); MEAN CORPUSCULAR HGB CONC 32.7 g/dl (31.0-37.0); MEAN PLATELET VOLUME 11.1 fl (7.0-11.0); PLATELET COUNT 175 10^3/uL (120.0-450.0); RED CELL DISTRIBUTION WIDTH 17.7 % (11.5-14.5); WHITE BLOOD COUNT 10.2 10^3/ul (4.5-11.0)
[2017-01-30 22:10] LABS: ADD MANUAL DIFF? YES
[2017-01-30 22:24] LABS: ALB/GLOB RATIO 0.8 (1.1-1.8); ALKALINE PHOSPHATASE 110 U/L (38-133); ALT/SGPT 18 U/L (7-56); AST/SGOT 32 U/L (15-39); BILIRUBIN,TOTAL 0.8 mg/dL (0.2-1.3); BLOOD UREA NITROGEN 17 mg/dL (7-21); CARBON DIOXIDE 20 mmol/L (21-33); CHLORIDE 106 mmol/L (98-107); GFR AFRICAN-AMERICAN 45; GLUCOSE,RANDOM 83 mg/dL (70-110); POTASSIUM 4.2 mmol/L (3.6-5.0); SODIUM 134 mmol/L (132-148); TOTAL PROTEIN 6.5 g/dL (5.8-8.3)
[2017-01-30 22:27] LABS: INR 1.23 (0.93-1.08)
[2017-01-30 22:28] LABS: VENOUS BLOOD GAS BASE EXCESS -3.7 mmol/L (0.0-2.0)
[2017-01-30 22:40] LABS: TROPONIN I < 0.01 ng/mL
[2017-01-30 22:48] LABS: BAND 17 % (0-2)
[2017-01-30 22:49] LABS: ATYPICAL LYMPHOCYTE 1 % (0.0-0.0); EOSINOPHIL 3 % (0.0-3.0); NEUTROPHIL 54 % (50.0-70.0)
[2017-01-30 23:20] LABS: URINE BILIRUBIN NEGATIVE (NEGATIVE); URINE BLOOD NEGATIVE (NEGATIVE); URINE GLUCOSE (UA) NEGATIVE (NEGATIVE); URINE KETONE NEGATIVE (NEGATIVE); URINE LEUKOCYTE ESTERASE TRACE Leu/uL (NEGATIVE); URINE PROTEIN TRACE mg/dL (<30 mg/dL); URINE UROBILINOGEN 0.2 E.U./dL (<1 E.U./dL)
[2017-01-30 23:23] LABS: URINE COLOR YELLOW (YELLOW)
[2017-01-30 23:24] LABS: URINE APPEARANCE CLEAR (CLEAR)
[2017-01-30] MEDS ORDERED: Vancomycin 1gm in NS 250ml 1 GM/250 ML BAG IVPB STA (23:48)
[2017-01-30] MEDS ORDERED: Enoxaparin 80 mg Syringe SC STA (23:49)
[2017-01-30] MEDS ORDERED: Enoxaparin 60 mg Syringe SC STA (23:49)
[2017-01-31 00:08] LABS: URINE BACTERIA SMALL (NEG)
[2017-01-31] MEDS ORDERED: Heparin25000 units/250ml 1/2NS 25,000 UNITS/250 ML BAG IV PRN (00:17)
[2017-01-31] MEDS ORDERED: HYDROmorphone 0.5 mg/0.5 ml ISec IVP STA (00:34)
[2017-01-31] MEDS: Heparin25000 units/250ml 1/2NS 25,000 UNITS/250 ML BAG IV PRN (01:02)
--- NOTE | 2017-01-31 01:26 | CP.PCM.HP ---
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 Pt states the swelling began 1 week ago and has gotten progressively worse. Pt says her leg has also become increasingly painful and red at this time. Pt takes oxycodone at home for pain normally, but has not taken anything else for her leg pain. Pt does also mention that she has intermittent shortness of breath and chest pain over this period of time. Pt see's Dr. Chung as outpt and saw him 3 days ago, but did not mention lower leg swelling at that time. Pt also reports having pain around her stoma site. Of note, pt was suppose to follow up with GI and Heme/onc for colonoscopy and PET scan as outpt, but pt states she has not at this time. She denies discharge or redness around the stoma site. Denies current CP, N/V/D, fever, chills, headaches, dysuria. PMH: Crohn's disease, Asthma, Eczema, bipolar disorder, mucinous adenocarcinoma of the colon Surgical Hx: Right hemicolectomy, perirectal abscess drainage, colostomy Family Hx: Unremarkable Social Hx: Admits to heavy tobacco, alcohol use, and illicit drug use. Medication: Oxycodone, oxycontin, Ibuprofen, Zofan Allergies: Morphine Present on Admission - Present on Admission Any Indicators Present on Admission: No Review of Systems - Constitutional Constitutional: Fatigue. absent: Chills, Fever - EENT Eyes: absent: Blurred Vision, Change in Vision Nose/Mouth/Throat: absent: Nasal Congestion, Nasal Discharge - Cardiovascular Cardiovascular: Chest Pain. absent: Irregular Heart Rhythm - Respiratory Respiratory: Dyspnea. absent: Cough - Gastrointestinal Gastrointestinal: Abdominal Pain. absent: Diarrhea, Vomiting - Genitourinary Genitourinary: absent: Dysuria, Hematuria - Integumentary Integumentary: absent: New Lesions, Rash - Neurological Neurological: absent: Numbness, Syncope, Tingling - Hematologic/Lymphatic Hematologic: absent: Easy Bleeding, Easy Bruising Past Patient History - Infectious Disease Hx of Infectious Diseases: None - Tetanus Immunizations Tetanus Immunization: Unknown - Past Medical History & Family History Past Medical History?: Yes - Past Social History Smoking Status: Current Some Days Smoker - CARDIAC Hx Cardiac Disorders: No - PULMONARY Hx Respiratory Disorders: Yes Hx Asthma: Yes Hx Pneumonia: Yes - NEUROLOGICAL Hx Neurological Disorder: No - HEENT Hx HEENT Problems: No - RENAL Hx Chronic Kidney Disease: No - ENDOCRINE/METABOLIC Hx Endocrine Disorders: No - HEMATOLOGICAL/ONCOLOGICAL Hx Blood Transfusions: No Hx Blood Transfusion Reaction: No - INTEGUMENTARY Hx Dermatological Problems: Yes Hx Eczema: Yes (flare up noted on stomach/back/bilateral upper and lower extremities) Hx Psoriasis: Yes - MUSCULOSKELETAL/RHEUMATOLOGICAL Hx Musculoskeletal Disorders: Yes Hx Falls: Yes Other/Comment: passed out x 1 - GASTROINTESTINAL Hx Gastrointestinal Disorders: Yes Hx Crohn's Disease: Yes (10 years ) - GENITOURINARY/GYNECOLOGICAL Hx Genitourinary Disorders: No - PSYCHIATRIC Hx Psychophysiologic Disorder: Yes Hx Anxiety: Yes Hx Substance Use: No - SURGICAL HISTORY Other/Comment: PT reports a Rt hemicolectomy without stoma placement done 5years ago. - ANESTHESIA Hx Anesthesia Reactions: No Hx Malignant Hyperthermia: No Meds Allergies/Adverse Reactions: Allergies Allergy/AdvReac Type Severity Reaction Status Date / Time morphine Allergy RASH Verified 12/01/16 12:49 Physical Exam - Constitutional Appears: Non-toxic, No Acute Distress - Head Exam Head Exam: ATRAUMATIC, NORMAL INSPECTION, NORMOCEPHALIC - Eye Exam Eye Exam: EOMI, Normal appearance - ENT Exam ENT Exam: Mucous Membranes Moist, Normal Exam - Neck Exam Neck exam: Positive for: Normal Inspection. Negative for: Lymphadenopathy - Respiratory Exam Respiratory Exam: Clear to Auscultation Bilateral, NORMAL BREATHING PATTERN. absent: Rales, Rhonchi, Wheezes - Cardiovascular Exam Cardiovascular Exam: RRR, +S1, +S2 - GI/Abdominal Exam GI & Abdominal Exam: Normal Bowel Sounds, Soft, Tenderness (Around Stoma site). absent: Distended, Guarding, Rebound Additional comments: No erythema around stoma site. - Extremities Exam Extremities exam: Positive for: calf tenderness (Left lower extremity) Additional comments: Left lower extremity with +1 pitting edema to hip. Erythema present on lower left extremity to knee. Painful to palpation.Warm to touch. - Neurological Exam Neurological exam: Alert, CN II-XII Intact, Oriented x3 - Psychiatric Exam Psychiatric exam: Normal Affect, Normal Mood - Skin Skin Exam: Dry, Intact, Warm Results - Vital Signs Recent Vital Signs: Last Vital Signs Temp 99.6 F 01/30/17 21:01 Pulse 62 01/31/17 00:00 Resp 18 01/31/17 00:00 BP 91/51 L 01/31/17 00:00 Pulse Ox 99 01/31/17 00:00 - Labs Result Diagrams: 01/30/17 21:50 01/30/17 21:50 Labs: Laboratory Results - last 24 hr 01/30/17 01/30/17 01/30/17 21:50 21:50 21:50 WBC 10.2 D RBC 3.03 L Hgb 8.4 L Hct 25.7 L MCV 84.8 MCH 27.7 MCHC 32.7 RDW 17.7 H Plt Count 175 MPV 11.1 H Neutrophils % (Manual) 54 Band Neutrophils % 17 H* Lymphocytes % (Manual) 25 Atypical Lymphs % 1 H Monocytes % (Manual) 1 Eosinophils % (Manual) 3 PT 13.3 H INR 1.23 H APTT 28.0 pO2 59 H VBG pH 7.30 L VBG pCO2 46.0 VBG HCO3 22.6 VBG Total CO2 24.0 VBG O2 Sat (Calc) 91.7 H VBG Base Excess -3.7 L VBG Potassium 4.4 Sodium 135.0 Chloride 112.0 H Glucose 83 Lactate 1.0 FiO2 21.0 Potassium Carbon Dioxide Anion Gap BUN Creatinine Est GFR ( Amer) Est GFR (Non-Af Amer) Random Glucose Calcium Total Bilirubin AST ALT Alkaline Phosphatase Lactate Dehydrogenase Total Creatine Kinase Troponin I NT-Pro-B Natriuret Pep Total Protein Albumin Globulin Albumin/Globulin Ratio Venous Blood Potassium 4.4 Urine Color Urine Appearance Urine pH Ur Specific [place] Urine Protein Urine Glucose (UA) Urine Ketones Urine Blood Urine Nitrate Urine Bilirubin Urine Urobilinogen Ur Leukocyte Esterase Urine RBC Urine WBC Ur Epithelial Cells Urine Bacteria 01/30/17 01/30/17 21:50 23:08 WBC RBC Hgb Hct MCV MCH MCHC RDW Plt Count MPV Neutrophils % (Manual) Band Neutrophils % Lymphocytes % (Manual) Atypical Lymphs % Monocytes % (Manual) Eosinophils % (Manual) PT INR APTT pO2 VBG pH VBG pCO2 VBG HCO3 VBG Total CO2 VBG O2 Sat (Calc) VBG Base Excess VBG Potassium Sodium 134 Chloride 106 Glucose Lactate FiO2 Potassium 4.2 Carbon Dioxide 20 L Anion Gap 12 BUN 17 Creatinine 1.5 H Est GFR ( Amer) 45 Est GFR (Non-Af Amer) 37 Random Glucose 83 Calcium 9.0 Total Bilirubin 0.8 AST 32 ALT 18 Alkaline Phosphatase 110 Lactate Dehydrogenase 1188 H Total Creatine Kinase 87 Troponin I < 0.01 NT-Pro-B Natriuret Pep 1450 H Total Protein 6.5 Albumin 2.9 L Globulin 3.7 Albumin/Globulin Ratio 0.8 L Venous Blood Potassium Urine Color Yellow Urine Appearance Clear Urine pH 6.0 Ur Specific [place] 1.020 Urine Protein Trace H Urine Glucose (UA) Negative Urine Ketones Negative Urine Blood Negative Urine Nitrate Negative Urine Bilirubin Negative Urine Urobilinogen 0.2 Ur Leukocyte Esterase Trace H Urine RBC 2 - 5 Urine WBC 5 - 10 Ur Epithelial Cells 3 - 4 Urine Bacteria Small Assessment & Plan - Assessment and Plan (Free Text) Plan: 51 y/o F with PMH of Crohn's disease, Asthma, Eczema, bipolar disorder and 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 Pt will be placed on abx and have ID consulted. Pt was also placed on heparin drip for possible PE as pt has increased risk factors including sedentary lifestyle, left lower extremity calf tightness, and hx of malignancy. Pt was unable to have CT angiogram of the chest due to LOWELL and decreased GFR. Pt will obtain V/Q scan in AM. Pt received lower ext ultrasound which showed no evidence of DVT on left leg. Pt given 1 dose of lasix for elevated BNP. 1. Left leg cellulitis Afebrile, no leukocytosis Vancomycin 1 gm daily Continue home oxycodone for pain Follow cultures ID consult, Dr. Mcneill 2. LOWELL Will start IV fluids, NS @ 100 Obtain urine electrolytes 3. Possible PE Heparin drip V/Q scan in AM No evidence of DVT 4. Normocytic anemia, chronic Hg at baseline Monitor for acute changes, recheck in AM 5. PPX Protonix Heparin drip Enafran Seen, reviewed, and discussed with attending Madonna, PGY-1 <Lester Smith - Last Filed: 01/31/17 03:29> Results - Vital Signs Recent Vital Signs: Last Vital Signs Temp 99.6 F 01/30/17 21:01 Pulse 76 01/31/17 00:35 Resp 18 01/31/17 02:07 BP 132/68 01/31/17 03:06 Pulse Ox 99 01/31/17 00:35 - Labs Result Diagrams: 01/30/17 21:50 01/30/17 21:50 Attending/Attestation - Attestation I have personally seen and examined this patient.: Yes I have fully participated in the care of the patient.: Yes I have reviewed all pertinent clinical information: Yes Notes (Text): 01/31/17 03:28 Patient was seen when she was in [id number]. Agree with history , physical examination, assessment and plan.
[2017-01-31] MEDS ORDERED: oxyCODONE 15 mg Immediate Release Tab PO PRN (01:44)
[2017-01-31 06:37] LABS: HEMATOCRIT 24.9 % (36.0-48.0); MEAN CORPUSCULAR HGB CONC 31.7 g/dl (31.0-37.0); MEAN PLATELET VOLUME 10.8 fl (7.0-11.0); RED CELL DISTRIBUTION WIDTH 17.7 % (11.5-14.5)
[2017-01-31 06:48] LABS: ALB/GLOB RATIO 0.8 (1.1-1.8); BILIRUBIN,TOTAL 0.6 mg/dL (0.2-1.3); CALCIUM 9.3 mg/dL (8.4-10.5); POTASSIUM 4.2 mmol/L (3.6-5.0); TOTAL PROTEIN 6.5 g/dL (5.8-8.3)
[2017-01-31] MEDS ORDERED: oxyCODONE 15 mg Immediate Release Tab PO STA (09:58)
[2017-01-31] MEDS ORDERED: Vancomycin 1gm in NS 250ml 1 GM/250 ML BAG IVPB SCH (10:00)
--- NOTE | 2017-01-31 11:40 | CP.PCM.CON ---
History of Present Illness - History of Present Illness History of Present Illness: 51 year old female with PMH of Crohn's disease, asthma, history of pneumonia, eczema, history of psoriasis, anxiety, history of depression, bipolar disorder, history of alcohol abuse, history of right hemicolectomy, history of perirectal abscess came in to [facility] complaining of progressively worsening left lower extremity swelling and pain for the past week, with some pain in the groin area currently. She denies having specific trauma to the foot or leg, denies animal contacts, no swimming, no wading in [place], no walking barefoot on soil, no travel outside of [place] in the past 3 months. She complains of subjective fevers, no nausea or vomiting, no headache or dizziness , no chest pain, no SOB, no cough or colds, no sore throat, no dysphagia, no dysuria, no dysphagia, no diarrhea. Infectious Diseases consult is requested to further evaluate and manage. Review of Systems - Review of Systems All systems: reviewed and no additional remarkable complaints except Past Patient History - Infectious Disease Hx of Infectious Diseases: None - Tetanus Immunizations Tetanus Immunization: Unknown - Past Medical History & Family History Past Medical History?: Yes - Past Social History Smoking Status: Current Some Days Smoker - CARDIAC Hx Cardiac Disorders: No - PULMONARY Hx Respiratory Disorders: Yes Hx Asthma: Yes Hx Pneumonia: Yes - NEUROLOGICAL Hx Neurological Disorder: No - HEENT Hx HEENT Problems: No - RENAL Hx Chronic Kidney Disease: No - ENDOCRINE/METABOLIC Hx Endocrine Disorders: No - HEMATOLOGICAL/ONCOLOGICAL Hx Blood Transfusions: No Hx Blood Transfusion Reaction: No - INTEGUMENTARY Hx Dermatological Problems: Yes Hx Eczema: Yes (flare up noted on stomach/back/bilateral upper and lower extremities) Hx Psoriasis: Yes - MUSCULOSKELETAL/RHEUMATOLOGICAL Hx Musculoskeletal Disorders: Yes Hx Falls: Yes Other/Comment: passed out x 1 - GASTROINTESTINAL Hx Gastrointestinal Disorders: Yes Hx Crohn's Disease: Yes (10 years ) - GENITOURINARY/GYNECOLOGICAL Hx Genitourinary Disorders: No - PSYCHIATRIC Hx Psychophysiologic Disorder: Yes Hx Anxiety: Yes Hx Substance Use: No - SURGICAL HISTORY Other/Comment: PT reports a Rt hemicolectomy without stoma placement done 5years ago. - ANESTHESIA Hx Anesthesia Reactions: No Hx Malignant Hyperthermia: No Meds Allergies/Adverse Reactions: Allergies Allergy/AdvReac Type Severity Reaction Status Date / Time morphine Allergy RASH Verified 12/01/16 12:49 - Medications Medications: Current Medications Heparin Sodium/Sodium Chloride (Heparin 15249 Units/250ml 1/2 Normal Saline) 25 ,000 units in 250 mls @ 11.251 mls/hr IV [id number] PRN; Protocol; 18 UNITS/KG/HR PRN Reason: ADJUST RATE PER PROTOCOL Last Admin: 01/31/17 01:02 Dose: 18 units/kg/hr, 11.251 mls/hr Vancomycin HCl (Vancomycin 1gm) 1 gm in 250 mls @ 167 mls/hr IVPB DAILY RAOUL PRN Reason: Protocol Ibuprofen (Motrin Tab) 400 mg PO Q6H PRN PRN Reason: Headache Ondansetron HCl (Zofran Inj) 4 mg IVP Q4H PRN PRN Reason: Nausea/Vomiting Oxycodone HCl (Oxycodone Immediate Release Tab) 15 mg PO Q12 PRN PRN Reason: Pain, severe (8-10) Last Admin: 01/31/17 02:21 Dose: 15 mg Pantoprazole Sodium (Protonix Inj) 40 mg IVP DAILY [facility] Physical Exam - Constitutional Appears: Non-toxic, No Acute Distress - Head Exam Head Exam: NORMAL INSPECTION - ENT Exam ENT Exam: Mucous Membranes Moist - Neck Exam Neck exam: Negative for: Lymphadenopathy, Meningismus - Respiratory Exam Respiratory Exam: Decreased Breath Sounds - Cardiovascular Exam Cardiovascular Exam: +S1, +S2 - GI/Abdominal Exam GI & Abdominal Exam: Soft. absent: Tenderness - Extremities Exam Additional comments: left leg with swelling of the foot and leg with some erythema - some tenderness noted on the groin Results - Vital Signs Recent Vital Signs: Last Vital Signs Temp 99 F 01/31/17 07:26 Pulse 68 01/31/17 07:26 Resp 20 01/31/17 07:26 BP 96/62 L 01/31/17 07:26 Pulse Ox 97 01/31/17 07:26 - Labs Result Diagrams: 01/31/17 06:31 01/31/17 06:31 Labs: Laboratory Results - last 24 hr 01/31/17 01/31/17 01/31/17 06:31 06:31 06:31 WBC 10.0 RBC 2.93 L Hgb 7.9 L Hct 24.9 L MCV 85.0 MCH 27.0 MCHC 31.7 RDW 17.7 H Plt Count 163 MPV 10.8 Sodium 137 Potassium 4.2 Chloride 106 Carbon Dioxide 22 Anion Gap 13 BUN 17 Creatinine 1.6 H Est GFR ( Amer) 41 Est GFR (Non-Af Amer) 34 Random Glucose 83 Lactic Acid 2.1 Calcium 9.3 Total Bilirubin 0.6 AST 25 ALT 26 Alkaline Phosphatase 114 Total Protein 6.5 Albumin 2.8 L Globulin 3.7 Albumin/Globulin Ratio 0.8 L Assessment & Plan - Assessment and Plan (Free Text) Plan: Assessment Consider left lower extremity skin and skin structure infection history of Pelvic abscess, probably related to the patient's Crohn's disease, S/ P exploratory laparotomy, diverting colostomy and surgical drainage of the abscess; S/P CT-guided drainage, grew ESBL-producing multidrug-resistant E. coli ; S/P drainage of perirectal abscess with note of mucinous adenocarcinoma Crohn's disease asthma history of pneumonia eczema history of psoriasis anxiety history of depression bipolar disorder history of alcohol abuse history of right hemicolectomy history of perirectal abscess Plan started patient on Ceftaroline pending blood cx; follow doppler ultrasound of the leg to rule out DVT Will monitor clinical response
[2017-01-31] MEDS: oxyCODONE 20 mg ER Tab (oxyCONTIN) PO SCH ×2 (11:55→23:35)
[2017-01-31] MEDS ORDERED: oxyCODONE 15 mg Immediate Release Tab PO SCH (12:00)
[2017-01-31] MEDS: Sodium Chloride 0.9% 1,000 ML IV SCH (12:07)
--- NOTE | 2017-01-31 12:58 | CARD ---
APPROVED REPORT EKG Measurement Heart [id number] <Conclusion> Normal sinus rhythm Nonspecific T wave abnormality Abnormal ECG
--- NOTE | 2017-01-31 14:04 | RAD ---
HISTORY: sob COMPARISON: 12/26/2016 FINDINGS: LUNGS: No infiltrate. Diffuse interstitial prominence, nonspecific. This represents interval change from the prior chest radiograph. Follow-up advised. PLEURA: No significant pleural effusion identified, no pneumothorax apparent. CARDIOVASCULAR: Normal. OSSEOUS STRUCTURES: No significant abnormalities. VISUALIZED UPPER ABDOMEN: Normal. OTHER FINDINGS: None. IMPRESSION: Diffuse nonspecific interstitial prominence. No focal infiltrate.
[2017-01-31] MEDS: oxyCODONE 15 mg Immediate Release Tab PO PRN ×2 (17:12→21:21)
[2017-01-31 22:53] LABS: INR 1.19 (0.93-1.08); PARTIAL THROMBOPLASTIN TIME 42.7 Seconds (23.7-30.8)
[2017-02-01] MEDS: Heparin25000 units/250ml 1/2NS 25,000 UNITS/250 ML BAG IV PRN (01:04)
[2017-02-01] MEDS: Sodium Chloride 0.9% 1,000 ML IV SCH ×2 (06:35→17:33)
[2017-02-01] MEDS: oxyCODONE 15 mg Immediate Release Tab PO PRN ×3 (06:35→20:29)
[2017-02-01 07:44] LABS: HEMATOCRIT 24.1 % (36.0-48.0); MEAN CELL VOLUME 84.3 fL (80.0-105.0); MEAN CORPUSCULAR HEMOGLOBIN 26.9 pg (25.0-35.0); MEAN PLATELET VOLUME 11.1 fl (7.0-11.0); RED CELL DISTRIBUTION WIDTH 17.9 % (11.5-14.5); WHITE BLOOD COUNT 9.5 10^3/ul (4.5-11.0)
[2017-02-01 08:03] LABS: ALB/GLOB RATIO 0.8 (1.1-1.8); BILIRUBIN,TOTAL 0.8 mg/dL (0.2-1.3); CALCIUM 9.3 mg/dL (8.4-10.5); POTASSIUM 4.2 mmol/L (3.6-5.0); TOTAL PROTEIN 6.6 g/dL (5.8-8.3)
[2017-02-01 09:48] LABS: IRON 100 ug/dL (45-180)
[2017-02-01] MEDS: oxyCODONE 20 mg ER Tab (oxyCONTIN) PO SCH (11:01)
--- NOTE | 2017-02-01 11:30 | CP.PCM.PN ---
<Jada Cohen - Last Filed: 02/01/17 11:21> Subjective - Date & Time of Evaluation Date of Evaluation: 02/01/17 Time of Evaluation: 11:21 - Subjective Subjective: HOSPITLAISTS PROGRESS NOTE Pt is seen and examined at bedside. No acute events overnight. Patient continues to c/o LE pain and swelling. She also c/o of weakness and fatigue and decreased appetite. Patient is however, tolerating a diet. She denies having any CP, SOB, abd pain, N/V. Objective - Vital Signs/Intake and Output Vital Signs (last 24 hours): Temp Pulse Resp BP Pulse Ox 97.6 F 62 19 120/70 96 02/01/17 07:38 02/01/17 07:38 02/01/17 07:38 02/01/17 07:38 02/01/17 07:38 Intake and Output: 02/01/17 02/01/17 06:59 18:59 Intake Total 1550 Balance 1550 - Medications Medications: Current Medications Clonazepam (Klonopin) 1 mg PO TID RAOUL PRN Reason: Protocol Escitalopram Oxalate (Lexapro) 10 mg PO DAILY RAOUL Gabapentin (Neurontin) 600 mg PO TID RAOUL PRN Reason: Protocol Ceftaroline Fosamil 400 mg/ (Sodium Chloride) 100 mls @ 100 mls/hr IVPB Q12 RAOUL PRN Reason: Protocol Stop: 02/07/17 10:01 Last Admin: 02/01/17 10:42 Dose: 100 mls/hr Sodium Chloride (Sodium Chloride 0.9%) 1,000 mls @ 100 mls/hr IV .Q10H RAOUL Last Admin: 02/01/17 06:35 Dose: 100 mls/hr Ibuprofen (Motrin Tab) 400 mg PO Q6H PRN PRN Reason: Headache Last Admin: 02/01/17 06:35 Dose: 400 mg Ondansetron HCl (Zofran Inj) 4 mg IVP Q4H PRN PRN Reason: Nausea/Vomiting Oxycodone HCl (Oxycontin Extended Release Tab) 60 mg PO 0000,1200 RAOUL Last Admin: 02/01/17 11:01 Dose: 60 mg Oxycodone HCl (Oxycodone Immediate Release Tab) 15 mg PO Q4 PRN PRN Reason: Pain, severe (8-10) Last Admin: 02/01/17 06:35 Dose: 15 mg Pantoprazole Sodium (Protonix Inj) 40 mg IVP DAILY RAOUL Last Admin: 02/01/17 11:04 Dose: 40 mg Quetiapine Fumarate (Seroquel) 100 mg PO HS RAOUL PRN Reason: Protocol - Labs Labs: 02/01/17 07:30 02/01/17 07:30 PT 12.8 Seconds (9.9-11.8) H 01/31/17 22:00 INR 1.19 (0.93-1.08) H 01/31/17 22:00 APTT 42.4 Seconds (23.7-30.8) H 02/01/17 07:30 - Constitutional Appears: Non-toxic, No Acute Distress - Head Exam Head Exam: ATRAUMATIC - ENT Exam ENT Exam: Mucous Membranes Moist - Respiratory Exam Respiratory Exam: Clear to Ausculation Bilateral. absent: Rales, Rhonchi, Wheezes - Cardiovascular Exam Cardiovascular Exam: REGULAR RHYTHM, +S1, +S2. absent: Gallop, Rubs, Murmur - GI/Abdominal Exam GI & Abdominal Exam: Soft, Normal Bowel Sounds. absent: Distended, Firm, Guarding, Rigid, Tenderness Additional comments: colostomy bag in place - Extremities Exam Extremities Exam: Tenderness (in Left LE). absent: Pedal Edema - Neurological Exam Neurological Exam: Alert, Awake, Oriented x3 - Psychiatric Exam Psychiatric exam: Normal Affect, Normal Mood - Skin Skin Exam: Dry, Intact, Normal Color, Warm Assessment and Plan - Assessment and Plan (Free Text) Assessment: 51 y/o F with PMH of Crohn's disease, Asthma, Eczema, bipolar disorder and 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 Doppler US of LE is negative and VQ scan showed low probability of PE. 1. Left leg cellulitis Afebrile, no leukocytosis Abx: ceftaroline Continue home oxycodone for pain Cultures negative ID consult, Dr. Mcneill PE is ruled out so discontinued heparin today 2. LOWELL Resolved 3. Normocytic anemia, chronic Hg trending down. today is 7.7 Will transfuse 1 unit of PRBC today. Consent obtained 4. Mucinous adenocarcinoma of colon - Heme/onc, Dr. Lucas is consulted 5. Anxiety - Psych, Dr. Mijares is consulted - Seroquel HS is started PPX Protonix Heparin drrisa Stubbs Seen, reviewed, and discussed with attending <Cristina Haley - Last Filed: 02/01/17 15:02> Objective - Vital Signs/Intake and Output Vital Signs (last 24 hours): Temp Pulse Resp BP Pulse Ox 97.8 F 66 20 134/89 96 02/01/17 13:20 02/01/17 13:20 02/01/17 13:20 02/01/17 13:20 02/01/17 07:38 Intake and Output: 02/01/17 02/01/17 06:59 18:59 Intake Total 1550 0 Balance 1550 0 - Medications Medications: Current Medications Acetaminophen (Tylenol 325mg Tab) 650 mg PO Q6H PRN PRN Reason: Headache Clonazepam (Klonopin) 1 mg PO TID RAOUL PRN Reason: Protocol Last Admin: 02/01/17 13:29 Dose: 1 mg Diphenhydramine HCl (Benadryl) 25 mg PO Q6 PRN PRN Reason: Allergy symptoms Escitalopram Oxalate (Lexapro) 10 mg PO DAILY RAOUL Last Admin: 02/01/17 11:41 Dose: 10 mg Gabapentin (Neurontin) 600 mg PO TID RAOUL PRN Reason: Protocol Last Admin: 02/01/17 13:29 Dose: 600 mg Ceftaroline Fosamil 400 mg/ (Sodium Chloride) 100 mls @ 100 mls/hr IVPB Q12 RAOUL PRN Reason: Protocol Stop: 02/07/17 10:01 Last Admin: 02/01/17 10:42 Dose: 100 mls/hr Sodium Chloride (Sodium Chloride 0.9%) 1,000 mls @ 100 mls/hr IV .Q10H RAOUL Last Admin: 02/01/17 06:35 Dose: 100 mls/hr Ondansetron HCl (Zofran Inj) 4 mg IVP Q4H PRN PRN Reason: Nausea/Vomiting Last Admin: 02/01/17 13:30 Dose: 4 mg Oxycodone HCl (Oxycontin Extended Release Tab) 60 mg PO 0000,1200 RAOUL Last Admin: 02/01/17 11:01 Dose: 60 mg Oxycodone HCl (Oxycodone Immediate Release Tab) 15 mg PO Q4 PRN PRN Reason: Pain, severe (8-10) Last Admin: 02/01/17 06:35 Dose: 15 mg Pantoprazole Sodium (Protonix Inj) 40 mg IVP DAILY RAOUL Last Admin: 02/01/17 11:04 Dose: 40 mg Quetiapine Fumarate (Seroquel) 100 mg PO HS RAOUL PRN Reason: Protocol - Labs Labs: 02/01/17 07:30 02/01/17 07:30 PT 12.8 Seconds (9.9-11.8) H 01/31/17 22:00 INR 1.19 (0.93-1.08) H 01/31/17 22:00 APTT 42.4 Seconds (23.7-30.8) H 02/01/17 07:30 Attending/Attestation - Attestation I have personally seen and examined this patient.: Yes I have fully participated in the care of the patient.: Yes I have reviewed all pertinent clinical information, including history, physical exam and plan: Yes Notes (Text): 02/01/17 14:51 1.Patient is a 51-year-old female admitted with left lower extremity swelling. Ultrasound is negative for DVT. VQ scan is low probability for PE. Heparin drip discontinued. 2.Patient with a history of Crohn's disease and abdominal surgeries in the past. Currently has colostomy. 3. Bipolar disorder; continue Klonopin Lexapro, Seroquel. Psychiatric evaluation requested. Patient has episodes of extreme anxiety and crying. 4. Chronic opiate dependency and multiple drug abuse in the past. Patient follows up with for pain medication prescriptions. 5. GI prophylaxis with Protonix. 6. Anemia; 1 unit PRBC transfusion ordered. stool for occult blood is positive. Monitor closely. 7.History of mucinous carcinoma of colon.Did not follow-up with oncology Dr. Briseno. Currently had an appointment to see Dr. Lucas yesterday. Oncology evaluation with Dr. Lucas requested. 8. Drug abuse; urine drug screen is positive for cocaine and opiates. 9 GI prophylaxis with Protonix. 10. Cellulitis; currently on Teflaro. ID evaluation appreciated. Case discussed with patient's mother in detail. Prognosis is poor secondary to continuous drug abuse and noncompliance with follow-up. Case discussed with patient's PMD Dr. Chung in detail. 02/01/17 15:01
--- NOTE | 2017-02-01 13:36 | US ---
PROCEDURE: Left lower extremity venous US HISTORY: Leg pain and swelling. Evaluate for DVT. PHYSICIAN(S): Derrell Metcalf MD. TECHNIQUE: Duplex sonography and color-flow Doppler with graded compression were used to evaluate the deep venous system of the left lower extremity. The exam is very limited by body habitus and edema FINDINGS: The visualized deep venous system of the left lower extremity is sonographically normal and compressible. Normal wave forms and augmentation are seen. There is no sonographic evidence for deep venous thrombosis in the visualized segments of the left lower extremity. The left tibial veins are not adequately seen. There is a large 4.4 cm hypoechoic inguinal lymph node. IMPRESSION: 1. No sonographic evidence for deep venous thrombosis in the visualized segments of the left lower extremity. 2. Very limited study
--- NOTE | 2017-02-01 19:23 | CP.PCM.PN ---
Subjective - Date & Time of Evaluation Date of Evaluation: 02/01/17 Time of Evaluation: 12:40 - Subjective Subjective: Leg is less swollen, less painful. No fevers overnight. Objective - Vital Signs/Intake and Output Vital Signs (last 24 hours): Temp Pulse Resp BP Pulse Ox 97.6 F 61 20 130/78 96 02/01/17 15:02 02/01/17 15:02 02/01/17 15:02 02/01/17 15:02 02/01/17 07:38 Intake and Output: 02/01/17 02/02/17 18:59 06:59 Intake Total 1475 Balance 1475 - Medications Medications: Current Medications Acetaminophen (Tylenol 325mg Tab) 650 mg PO Q6H PRN PRN Reason: Headache Clonazepam (Klonopin) 1 mg PO TID RAOUL PRN Reason: Protocol Last Admin: 02/01/17 17:33 Dose: 1 mg Diphenhydramine HCl (Benadryl) 25 mg PO Q6 PRN PRN Reason: Allergy symptoms Escitalopram Oxalate (Lexapro) 10 mg PO DAILY [facility] Last Admin: 02/01/17 11:41 Dose: 10 mg Gabapentin (Neurontin) 600 mg PO TID RAOUL PRN Reason: Protocol Last Admin: 02/01/17 17:33 Dose: 600 mg Ceftaroline Fosamil 400 mg/ (Sodium Chloride) 100 mls @ 100 mls/hr IVPB Q12 RAOUL PRN Reason: Protocol Stop: 02/07/17 10:01 Last Admin: 02/01/17 10:42 Dose: 100 mls/hr Sodium Chloride (Sodium Chloride 0.9%) 1,000 mls @ 100 mls/hr IV .Q10H [facility] Last Admin: 02/01/17 17:33 Dose: 100 mls/hr Ondansetron HCl (Zofran Inj) 4 mg IVP Q4H PRN PRN Reason: Nausea/Vomiting Last Admin: 02/01/17 13:30 Dose: 4 mg Oxycodone HCl (Oxycontin Extended Release Tab) 60 mg PO 0000,1200 [facility] Last Admin: 02/01/17 11:01 Dose: 60 mg Oxycodone HCl (Oxycodone Immediate Release Tab) 15 mg PO Q4 PRN PRN Reason: Pain, severe (8-10) Last Admin: 02/01/17 16:15 Dose: 15 mg Pantoprazole Sodium (Protonix Inj) 40 mg IVP DAILY RAOUL Last Admin: 02/01/17 11:04 Dose: 40 mg Quetiapine Fumarate (Seroquel) 100 mg PO HS [facility] PRN Reason: Protocol - Labs Labs: 02/01/17 07:30 02/01/17 07:30 PT 12.8 Seconds (9.9-11.8) H 01/31/17 22:00 INR 1.19 (0.93-1.08) H 01/31/17 22:00 APTT 42.4 Seconds (23.7-30.8) H 02/01/17 07:30 - Constitutional Appears: Non-toxic, No Acute Distress - Head Exam Head Exam: NORMAL INSPECTION - Neck Exam Neck Exam: absent: Lymphadenopathy, Meningismus - Respiratory Exam Respiratory Exam: Decreased Breath Sounds - Cardiovascular Exam Cardiovascular Exam: +S1, +S2 - GI/Abdominal Exam GI & Abdominal Exam: Soft. absent: Tenderness - Extremities Exam Additional comments: left leg with decreased swelling and erythema Assessment and Plan - Assessment and Plan (Free Text) Plan: Assessment Consider left lower extremity skin and skin structure infection, slowly improving history of Pelvic abscess, probably related to the patient's Crohn's disease, S/ P exploratory laparotomy, diverting colostomy and surgical drainage of the abscess; S/P CT-guided drainage, grew ESBL-producing multidrug-resistant E. coli ; S/P drainage of perirectal abscess with note of mucinous adenocarcinoma Crohn's disease asthma history of pneumonia eczema history of psoriasis anxiety history of depression bipolar disorder history of alcohol abuse history of right hemicolectomy history of perirectal abscess Plan continue Ceftaroline day 2; blood cx are negative; doppler ultrasound of the leg does not show DVT Will continue to monitor clinical response
[2017-02-01 20:40] LABS: HEMATOCRIT 27.5 % (36.0-48.0); MEAN CELL VOLUME 83.1 fL (80.0-105.0); MEAN CORPUSCULAR HEMOGLOBIN 27.8 pg (25.0-35.0); MEAN CORPUSCULAR HGB CONC 33.5 g/dl (31.0-37.0); WHITE BLOOD COUNT 11.4 10^3/ul (4.5-11.0)
[2017-02-02] MEDS: oxyCODONE 20 mg ER Tab (oxyCONTIN) PO SCH ×2 (00:08→11:11)
[2017-02-02] MEDS: oxyCODONE 15 mg Immediate Release Tab PO PRN ×4 (05:36→17:46)
[2017-02-02] MEDS: Sodium Chloride 0.9% 1,000 ML IV SCH ×2 (11:04→11:05)
--- NOTE | 2017-02-02 13:11 | CP.PCM.CON ---
History of Present Illness - History of Present Illness History of Present Illness: Ms. Winchester dorita 51 y/o female with pmhx significant for Crohn's disease c/b recurrent rectal abscess, Asthma, bipolar d/o; polysubstance abuse (cocaine, heroine); DJD of lower back, who was recently diagnosis with a mucinous adenocarcinoma s/p diverting cologstomy who presents to ED for 1 week hx of LLE swelling associated pain. PMHX/PSHX: above FHX: N/C Social Hx: on going tobacco abus; denies current ETOH abuse; polysubstance abuse (cocaine, heroin) preveiously enrolled in methadone clinic but was discharged when the clinic found that she was receiving narcotics from a primary care providers. Currently lives at home with mother and 20 year old son. Able to do ADL's/IDL's w/o issue Allergies: ?morhpine Home Medications: oxycodne, oxycontin, ibuprofe, zofran Review of Systems - Constitutional Constitutional: As Per HPI - EENT Eyes: As Per HPI - Cardiovascular Cardiovascular: absent: As Per HPI, Acrocyanosis, Chest Pain, Chest Pain at Rest , Chest Pain with Activity, Claudication, Diaphoresis, Dyspnea, Dyspnea on Exertion, Edema, Irregular Heart Rhythm, Pain Radiating to Arm/Neck/Jaw, Leg Edema, Leg Ulcers, Lightheadedness, Orthopnea, Palpitations, Paroxysmal Nocturnal Dyspnea, Pedal Edema, Radiating Pain, Rapid Heart Rate, Slow Heart Rate, Syncope, Other - Respiratory Respiratory: absent: As Per HPI, Cough, Dyspnea, Hemoptysis, Dyspnea on Exertion , Wheezing, Snoring, Stridor, Pain on Inspiration, Chest Congestion, Excessive Mucous Production, Change in Mucous Color, Pain with Coughing, Other - Gastrointestinal Gastrointestinal: As Per HPI - Hematologic/Lymphatic Hematologic: absent: As Per HPI, Easy Bleeding, Easy Bruising, Lymphadenopathy, Other Past Patient History - Infectious Disease Hx of Infectious Diseases: None - Tetanus Immunizations Tetanus Immunization: Unknown - Past Medical History & Family History Past Medical History?: Yes - Past Social History Smoking Status: Current Some Days Smoker - CARDIAC Hx Cardiac Disorders: No - PULMONARY Hx Respiratory Disorders: Yes Hx Asthma: Yes Hx Pneumonia: Yes - NEUROLOGICAL Hx Neurological Disorder: No - HEENT Hx HEENT Problems: No - RENAL Hx Chronic Kidney Disease: No - ENDOCRINE/METABOLIC Hx Endocrine Disorders: No - HEMATOLOGICAL/ONCOLOGICAL Hx Blood Transfusions: No Hx Blood Transfusion Reaction: No - INTEGUMENTARY Hx Dermatological Problems: Yes Hx Eczema: Yes (flare up noted on stomach/back/bilateral upper and lower extremities) Hx Psoriasis: Yes - MUSCULOSKELETAL/RHEUMATOLOGICAL Hx Musculoskeletal Disorders: Yes Hx Falls: Yes Other/Comment: passed out x 1 - GASTROINTESTINAL Hx Gastrointestinal Disorders: Yes Hx Crohn's Disease: Yes (10 years ) - GENITOURINARY/GYNECOLOGICAL Hx Genitourinary Disorders: No - PSYCHIATRIC Hx Psychophysiologic Disorder: Yes Hx Anxiety: Yes Hx Substance Use: No - SURGICAL HISTORY Other/Comment: PT reports a Rt hemicolectomy without stoma placement done 5years ago. - ANESTHESIA Hx Anesthesia Reactions: No Hx Malignant Hyperthermia: No Meds Allergies/Adverse Reactions: Allergies Allergy/AdvReac Type Severity Reaction Status Date / Time morphine Allergy RASH Verified 12/01/16 12:49 - Medications Medications: Current Medications Acetaminophen (Tylenol 325mg Tab) 650 mg PO Q6H PRN PRN Reason: Headache Last Admin: 02/02/17 08:40 Dose: 650 mg Clonazepam (Klonopin) 1 mg PO TID RAOLU PRN Reason: Protocol Last Admin: 02/02/17 09:31 Dose: 1 mg Diphenhydramine HCl (Benadryl) 25 mg PO Q6 PRN PRN Reason: Allergy symptoms Last Admin: 02/01/17 21:30 Dose: 25 mg Escitalopram Oxalate (Lexapro) 10 mg PO DAILY [facility] Last Admin: 02/02/17 09:31 Dose: 10 mg Gabapentin (Neurontin) 600 mg PO TID RAOUL PRN Reason: Protocol Last Admin: 02/02/17 09:31 Dose: 600 mg Ceftaroline Fosamil 400 mg/ (Sodium Chloride) 100 mls @ 100 mls/hr IVPB Q12 [facility]OUL PRN Reason: Protocol Stop: 02/07/17 10:01 Last Admin: 02/02/17 09:34 Dose: 100 mls/hr Sodium Chloride (Sodium Chloride 0.9%) 1,000 mls @ 100 mls/hr IV .Q10H [facility] Last Admin: 02/02/17 11:05 Dose: Not Given Ondansetron HCl (Zofran Inj) 4 mg IVP Q4H PRN PRN Reason: Nausea/Vomiting Last Admin: 02/02/17 09:47 Dose: 4 mg Oxycodone HCl (Oxycontin Extended Release Tab) 60 mg PO 0000,1200 [facility]OUL Last Admin: 02/02/17 11:11 Dose: 60 mg Oxycodone HCl (Oxycodone Immediate Release Tab) 15 mg PO Q4 PRN PRN Reason: Pain, severe (8-10) Last Admin: 02/02/17 08:38 Dose: 15 mg Pantoprazole Sodium (Protonix Inj) 40 mg IVP DAILY [facility] Last Admin: 02/02/17 09:31 Dose: 40 mg Quetiapine Fumarate (Seroquel) 100 mg PO HS RAOUL PRN Reason: Protocol Last Admin: 02/01/17 21:30 Dose: 100 mg Physical Exam - Head Exam Head Exam: ATRAUMATIC - Respiratory Exam Respiratory Exam: Clear to Auscultation Bilateral, NORMAL BREATHING PATTERN - Cardiovascular Exam Cardiovascular Exam: REGULAR RHYTHM - GI/Abdominal Exam GI & Abdominal Exam: Normal Bowel Sounds, Soft. absent: Tenderness - Extremities Exam Extremities exam: Positive for: normal inspection Results - Vital Signs Recent Vital Signs: Last Vital Signs Temp 98.2 F 02/02/17 08:00 Pulse 60 02/02/17 08:00 Resp 19 02/02/17 08:00 BP 131/85 02/02/17 08:00 Pulse Ox 94 L 02/02/17 08:00 - Labs Result Diagrams: 02/01/17 20:20 02/01/17 07:30 Labs: Laboratory Results - last 24 hr 01/31/17 02/01/17 02/01/17 12:55 08:50 13:25 WBC RBC Hgb Hct MCV MCH MCHC RDW Plt Count MPV Ferritin 339.0 Stool Occult Blood Positive H Crossmatch See Detail 02/01/17 20:20 WBC 11.4 H RBC 3.31 L Hgb 9.2 L Hct 27.5 L MCV 83.1 MCH 27.8 MCHC 33.5 RDW 17.0 H Plt Count 122 MPV 11.0 Ferritin Stool Occult Blood Crossmatch Assessment & Plan - Assessment and Plan (Free Text) Assessment: Ms. Winchester dorita 51 y/o female with pmhx significant for Crohn's disease c/b recurrent rectal abscess, Asthma, bipolar d/o; polysubstance abuse (cocaine, heroine); DJD of lower back, who was recently diagnosis with a mucinous adenocarcinoma s/p diverting cologstomy who presents to ED for 1 week hx of LLE swelling associated pain. On most recent CT a/p from 12/2016 abdominal and RP lymphadneopathy was noted. Based on pathology report patient is microsatellite stable but unclear if there was lymph node sampling? Will f/u with pathology. At present cannot fully stage patient. If lymph node sampling was not done we may need to consider an additional biopsy potentially. Lymphadenopathy could be reactive in setting of IBD. Eitherway patietn would likely require adjuvant chemotherapy (FOLFOX vs FOLFIRI). If no lymph nodes were biopsied could conceivablly consider PET CT once discharged to aid in lymph node biopsy if required. Patient will require f/u with medical oncology upon discharge.
--- NOTE | 2017-02-02 15:39 | CP.PCM.PN ---
<Jada Cohen - Last Filed: 02/02/17 15:36> Subjective - Date & Time of Evaluation Date of Evaluation: 02/02/17 Time of Evaluation: 15:36 - Subjective Subjective: HOSPITALISTS PROGRESS NOTE Pt is seen and examined at bedside. No acute events overnight. Pt was transfused 1 unit of PRBC which she tolerated well and her Hgb improved after transfusion. Patient states that she "feels lousy" and she complains of LE cramps. Patient denies having any CP, SOB, abd pain. She does complain of N. She is tolerating diet well. Objective - Vital Signs/Intake and Output Vital Signs (last 24 hours): Temp Pulse Resp BP Pulse Ox 98.2 F 60 19 131/85 94 L 02/02/17 08:00 02/02/17 08:00 02/02/17 08:00 02/02/17 08:00 02/02/17 08:00 Intake and Output: 02/02/17 02/02/17 06:59 18:59 Intake Total 480 Balance 480 - Medications Medications: Current Medications Acetaminophen (Tylenol 325mg Tab) 650 mg PO Q6H PRN PRN Reason: Headache Last Admin: 02/02/17 08:40 Dose: 650 mg Clonazepam (Klonopin) 1 mg PO TID RAOUL PRN Reason: Protocol Last Admin: 02/02/17 13:21 Dose: 1 mg Diphenhydramine HCl (Benadryl) 25 mg PO Q6 PRN PRN Reason: Allergy symptoms Last Admin: 02/01/17 21:30 Dose: 25 mg Escitalopram Oxalate (Lexapro) 10 mg PO DAILY [facility] Last Admin: 02/02/17 09:31 Dose: 10 mg Gabapentin (Neurontin) 600 mg PO TID RAOUL PRN Reason: Protocol Last Admin: 02/02/17 13:21 Dose: 600 mg Ceftaroline Fosamil 400 mg/ (Sodium Chloride) 100 mls @ 100 mls/hr IVPB Q12 [facility]OUL PRN Reason: Protocol Stop: 02/07/17 10:01 Last Admin: 02/02/17 09:34 Dose: 100 mls/hr Sodium Chloride (Sodium Chloride 0.9%) 1,000 mls @ 100 mls/hr IV .Q10H [facility] Last Admin: 02/02/17 11:05 Dose: Not Given Ondansetron HCl (Zofran Inj) 4 mg IVP Q4H PRN PRN Reason: Nausea/Vomiting Last Admin: 02/02/17 13:21 Dose: 4 mg Oxycodone HCl (Oxycontin Extended Release Tab) 60 mg PO 0000,1200 [facility]OU[facility] Last Admin: 02/02/17 11:11 Dose: 60 mg Oxycodone HCl (Oxycodone Immediate Release Tab) 15 mg PO Q4 PRN PRN Reason: Pain, severe (8-10) Last Admin: 02/02/17 13:21 Dose: 15 mg Pantoprazole Sodium (Protonix Inj) 40 mg IVP DAILY [facility] Last Admin: 02/02/17 09:31 Dose: 40 mg Quetiapine Fumarate (Seroquel) 200 mg PO Q12H [facility]OUL PRN Reason: Protocol - Labs Labs: 02/01/17 20:20 02/01/17 07:30 PT 12.8 Seconds (9.9-11.8) H 01/31/17 22:00 INR 1.19 (0.93-1.08) H 01/31/17 22:00 APTT 42.4 Seconds (23.7-30.8) H 02/01/17 07:30 - Constitutional Appears: Non-toxic, No Acute Distress - Head Exam Head Exam: ATRAUMATIC - Eye Exam Eye Exam: EOMI - ENT Exam ENT Exam: Mucous Membranes Moist - Respiratory Exam Respiratory Exam: Clear to Ausculation Bilateral, NORMAL BREATHING PATTERN. absent: Rales, Rhonchi, Wheezes - Cardiovascular Exam Cardiovascular Exam: REGULAR RHYTHM, +S1, +S2. absent: Gallop, Rubs, Murmur - GI/Abdominal Exam GI & Abdominal Exam: Soft, Normal Bowel Sounds. 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 Doppler US of LE is negative and VQ scan showed low probability of PE. 1. Left leg cellulitis Abx: ceftaroline Continue home oxycodone for pain Cultures negative ID consult, Dr. Mcneill 2. History of Crohn's disease with colostomy bag in place - Continue to monitor 3. Normocytic anemia, chronic likely 2/2 GI bleed Stool occult is positive so will consult GI, Dr. Caballero for further recs Hgb improved last night after transfusion Need to check iron studies but patient just had transfusion so will wait 4. Mucinous adenocarcinoma of colon - Heme/onc, Dr. Lucas is consulted 5. Anxiety - Psych, Dr. Mijares is consulted - Seroquel HS is started 6. History of polysubstance abuse UDs is positive for cocaine and opiates PPX Protonix Heparin jere Stubbs Seen, reviewed, and discussed with attending Dr. Kincaid <Mari Kincaid - Last Filed: 02/02/17 20:24> Objective - Vital Signs/Intake and Output Vital Signs (last 24 hours): Temp Pulse Resp BP Pulse Ox 98.3 F 57 L 19 132/90 95 02/02/17 16:00 02/02/17 16:00 02/02/17 16:00 02/02/17 16:00 02/02/17 16:00 Intake and Output: 02/02/17 02/03/17 18:59 06:59 Intake Total 480 Balance 480 - Medications Medications: Current Medications Acetaminophen (Tylenol 325mg Tab) 650 mg PO Q6H PRN PRN Reason: Headache Last Admin: 02/02/17 17:46 Dose: 650 mg Clonazepam (Klonopin) 1 mg PO TID RAOUL PRN Reason: Protocol Last Admin: 02/02/17 17:47 Dose: 1 mg Diphenhydramine HCl (Benadryl) 25 mg PO Q6 PRN PRN Reason: Allergy symptoms Last Admin: 02/01/17 21:30 Dose: 25 mg Escitalopram Oxalate (Lexapro) 10 mg PO DAILY [facility] Last Admin: 02/02/17 09:31 Dose: 10 mg Gabapentin (Neurontin) 600 mg PO TID RAOUL PRN Reason: Protocol Last Admin: 02/02/17 17:46 Dose: 600 mg Ceftaroline Fosamil 400 mg/ (Sodium Chloride) 100 mls @ 100 mls/hr IVPB Q12 [facility]OUL PRN Reason: Protocol Stop: 02/07/17 10:01 Last Admin: 02/02/17 09:34 Dose: 100 mls/hr Sodium Chloride (Sodium Chloride 0.9%) 1,000 mls @ 100 mls/hr IV .Q10H [facility] Last Admin: 02/02/17 11:05 Dose: Not Given Ondansetron HCl (Zofran Inj) 4 mg IVP Q4H PRN PRN Reason: Nausea/Vomiting Last Admin: 02/02/17 13:21 Dose: 4 mg Oxycodone HCl (Oxycontin Extended Release Tab) 60 mg PO 0000,1200 [facility] Last Admin: 02/02/17 11:11 Dose: 60 mg Oxycodone HCl (Oxycodone Immediate Release Tab) 15 mg PO Q4 PRN PRN Reason: Pain, severe (8-10) Last Admin: 02/02/17 17:46 Dose: 15 mg Pantoprazole Sodium (Protonix Inj) 40 mg IVP DAILY [facility] Last Admin: 02/02/17 09:31 Dose: 40 mg Quetiapine Fumarate (Seroquel) 200 mg PO Q12 [facility]OUL PRN Reason: Protocol - Labs Labs: 02/01/17 20:20 02/01/17 07:30 PT 12.8 Seconds (9.9-11.8) H 01/31/17 22:00 INR 1.19 (0.93-1.08) H 01/31/17 22:00 APTT 42.4 Seconds (23.7-30.8) H 02/01/17 07:30 Attending/Attestation - Attestation I have personally seen and examined this patient.: Yes I have fully participated in the care of the patient.: Yes I have reviewed all pertinent clinical information, including history, physical exam and plan: Yes Notes (Text): I have seen and examined patient at bedside. Agree with the above note with the following addition/ exceptions: Briefly this is 51 year old female with history of Crohn's disease s/p right hemicolectomy, asthma, psoriasis, anxiety, depression, perirectal abscess s/p IR guided drainage, removal of phlegmon, divertng colostomy, Bipolar disorder, Drug abuse, Opiate dependence and non- compliance who came for evaluation of left lower extremity swelling / cellulitis. Today patient complains that she feels very weak and unwell. Stool for occult blood positive. S/P 1 unit of prbc. Awaiting GI consult. Patient has history of mucinous carcinoma of colon. Urine drug screen is positive for cocaine and opiates. Continue teflaro for cellulitis. Prognosis is poor secondary to continuous drug abuse and noncompliance with follow-up. Case discussed with patient's PMD Dr. Chung in detail. Dr Mari Kincaid
--- NOTE | 2017-02-02 16:37 | CP.PCM.PN ---
Subjective - Date & Time of Evaluation Date of Evaluation: 02/02/17 Time of Evaluation: 11:20 - Subjective Subjective: Left leg is less painful, with less swelling, no fevers overnight. Objective - Vital Signs/Intake and Output Vital Signs (last 24 hours): Temp Pulse Resp BP Pulse Ox 98.2 F 60 19 131/85 94 L 02/02/17 08:00 02/02/17 08:00 02/02/17 08:00 02/02/17 08:00 02/02/17 08:00 Intake and Output: 02/02/17 02/02/17 06:59 18:59 Intake Total 480 Balance 480 - Medications Medications: Current Medications Acetaminophen (Tylenol 325mg Tab) 650 mg PO Q6H PRN PRN Reason: Headache Last Admin: 02/02/17 08:40 Dose: 650 mg Clonazepam (Klonopin) 1 mg PO TID RAOUL PRN Reason: Protocol Last Admin: 02/02/17 13:21 Dose: 1 mg Diphenhydramine HCl (Benadryl) 25 mg PO Q6 PRN PRN Reason: Allergy symptoms Last Admin: 02/01/17 21:30 Dose: 25 mg Escitalopram Oxalate (Lexapro) 10 mg PO DAILY [facility] Last Admin: 02/02/17 09:31 Dose: 10 mg Gabapentin (Neurontin) 600 mg PO TID RAOUL PRN Reason: Protocol Last Admin: 02/02/17 13:21 Dose: 600 mg Ceftaroline Fosamil 400 mg/ (Sodium Chloride) 100 mls @ 100 mls/hr IVPB Q12 [facility]OUL PRN Reason: Protocol Stop: 02/07/17 10:01 Last Admin: 02/02/17 09:34 Dose: 100 mls/hr Sodium Chloride (Sodium Chloride 0.9%) 1,000 mls @ 100 mls/hr IV .Q10H [facility] Last Admin: 02/02/17 11:05 Dose: Not Given Ondansetron HCl (Zofran Inj) 4 mg IVP Q4H PRN PRN Reason: Nausea/Vomiting Last Admin: 02/02/17 13:21 Dose: 4 mg Oxycodone HCl (Oxycontin Extended Release Tab) 60 mg PO 0000,1200 [facility] Last Admin: 02/02/17 11:11 Dose: 60 mg Oxycodone HCl (Oxycodone Immediate Release Tab) 15 mg PO Q4 PRN PRN Reason: Pain, severe (8-10) Last Admin: 02/02/17 13:21 Dose: 15 mg Pantoprazole Sodium (Protonix Inj) 40 mg IVP DAILY [facility] Last Admin: 02/02/17 09:31 Dose: 40 mg Quetiapine Fumarate (Seroquel) 200 mg PO Q12 [facility] PRN Reason: Protocol - Labs Labs: 02/01/17 20:20 02/01/17 07:30 PT 12.8 Seconds (9.9-11.8) H 01/31/17 22:00 INR 1.19 (0.93-1.08) H 01/31/17 22:00 APTT 42.4 Seconds (23.7-30.8) H 02/01/17 07:30 - Constitutional Appears: Non-toxic, No Acute Distress - Head Exam Head Exam: NORMAL INSPECTION - Neck Exam Neck Exam: absent: Lymphadenopathy, Meningismus - Respiratory Exam Respiratory Exam: Decreased Breath Sounds - Cardiovascular Exam Cardiovascular Exam: +S1, +S2 - GI/Abdominal Exam GI & Abdominal Exam: Soft. absent: Tenderness - Extremities Exam Additional comments: left leg with less swelling and erythema Assessment and Plan - Assessment and Plan (Free Text) Plan: Assessment Consider left lower extremity skin and skin structure infection, clinically improving history of Pelvic abscess, probably related to the patient's Crohn's disease, S/ P exploratory laparotomy, diverting colostomy and surgical drainage of the abscess; S/P CT-guided drainage, grew ESBL-producing multidrug-resistant E. coli ; S/P drainage of perirectal abscess with note of mucinous adenocarcinoma Crohn's disease asthma history of pneumonia eczema history of psoriasis anxiety history of depression bipolar disorder history of alcohol abuse history of right hemicolectomy history of perirectal abscess Plan continue Ceftaroline day 3; blood cx are negative; doppler ultrasound of the leg does not show DVT - when ready for discharge, she can be switched to PO Doxycycline and Augmentin to complete another 5-7 days Will continue to monitor clinical response while the patient is in the hospital
--- NOTE | 2017-02-02 17:42 | CON ---
DATE: 02/02/2017 HISTORY OF PRESENT ILLNESS: Shortly, the patient is a 51-year-old female with long and cordelia ilitating history of polysubstance abuse and dependence. The patient has multiple medical issues, Cr ohn disease, asthma, eczema. The patient also has history of mood disorder. This typewriter mechanic is not sure if this is substance-induced mood disorder or bipolar disorder. The patient has adenocarcinoma, rece ntly diagnosed. The patient was admitted to the medical side for left lower extremity swelling. y consult was called for evaluation of mood symptoms. This typewriter mechanic is very familiar with this patien t from the previous admission to the psychiatric inpatient unit as well as medical side for a consult ation and consultation service. The patient presented to be having flat affect. The patient said th at she is in pain. The patient reported that she was using heroin, most recent dose was on last and potentially she could have withdrawal symptoms. The patient was asking for "something for wit hdrawals." The patient reported that she is depressed, but denied any thoughts of killing herself or others, denied intent or plan. The patient denied visual, auditory, or tactile hallucinations. The patient does not present to be psychotic. The patient reported that her psychotropic medication is provided by Dr. Chung. [facility] was called and patient was on Seroquel 200 mg twice a day and it was resumed VITAL SIGNS: Seem to be stable. Temperature 98.2, pulse is 60, blood pressure 131/85, respiration 9 6, oxygen saturation is 94%. MEDICATIONS: Reviewed. The patient is on Tylenol, Klonopin 1 mg 3 times a day, Benadryl, Lexapro 10 mg daily, Neurontin 600 mg 3 times a day, Zofran, oxycodone and OxyContin, Protonix, Seroquel 200 mg twice a day and sodium chloride. LABORATORY DATA: Reviewed. WBC cells elevated. Chemistry: Chloride is 108. Toxicology positive f or opioids and cocaine. MENTAL STATUS EXAMINATION: The patient presented to be with a flat affect. Speech was underproducti ve. Mood described as depressed. Affect was constricted, mood congruent. Speech was low volume. Th ought process was goal directed. Thought content: The patient denied visual, auditory, or tactile h allucinations. Denied paranoid ideations. The patient denied thoughts of harming herself or others, denied intent or plan. Insight and judgment are limited. Impulses are well controlled. IMPRESSION: Rule out substance-induced mood disorder, rule out bipolar disorder. The patient has m ultiple medical issues. Please see medical team notes for more detailed information. PLAN: Medications confirmed. Continue current medication management. Supportive therapy was provid ed. At present moment, the patient denied thoughts of killing herself or others, denied intent or pl an. Please reconsult as needed. Should you have any questions, give me a call back. Rosina Mensah MD cc: [id number] TT: 02/02/2017 17:42:04 Confirmation # [id number] Dictation # [id number]
[2017-02-03] MEDS: oxyCODONE 20 mg ER Tab (oxyCONTIN) PO SCH ×2 (01:56→12:48)
[2017-02-03] MEDS: oxyCODONE 15 mg Immediate Release Tab PO PRN (08:14)
[2017-02-03 08:30] VITALS: BP 140/90; PULSE 64; RESP 18; TEMP 98.7; O2SAT 97
[2017-02-03 08:39] LABS: HEMATOCRIT 25.8 % (36.0-48.0); MEAN CELL VOLUME 81.9 fL (80.0-105.0); MEAN CORPUSCULAR HEMOGLOBIN 27.6 pg (25.0-35.0); MEAN CORPUSCULAR HGB CONC 33.7 g/dl (31.0-37.0); PLATELET COUNT 105 10^3/uL (120.0-450.0); WHITE BLOOD COUNT 15.5 10^3/ul (4.5-11.0)
--- NOTE | 2017-02-03 08:47 | CON ---
DATE: 02/03/2017 This is a 51-year-old woman who has colon carcinoma. She has a long history of colitis with surgery in the past, but at the end of November, she had bleeding from her intestines and they operated on her. She had a colon cancer in the area of the colitis and she was supposed to come to the office to disc uss adjuvant chemotherapy. However, she had a long course afterwards and was quite weak. She went h ome and she was getting weaker at home, so finally she came in to the hospital with pain in her left leg and redness and soreness. She was found to have a cellulitis. Doppler study was negative for ph lebitis. She was also found to be anemic and received transfusion. PHYSICAL EXAMINATION: SKIN: No petechiae, no bruises. HEENT: Anicteric. NODES: None palpable in the axillary, cervical, supraclavicular or inguinal regions. LUNGS: Clear at present. No vertebral tenderness. The patient is able to lie flat in bed. HEART: S1, S2. ABDOMEN: Shows no rebound. No tenderness, no liver, no spleen. EXTREMITIES: At this point, there does not seem to be redness of that leg, although it is a little b it swollen. She says it is somewhat improved, but quite weak and feels exhausted. She is status post transfusion. She may need more. We will have to see how she does with it and she is still on the antibiotics. I used the word cancer and I explained that she does have a cancer of the colon. She is aware of it and I told her that, as an outpatient, we will have to make a decision in terms of chemotherapy, but right now she is too weak to get it. So she has to be treated for the infection and transfuse as needed for the anemia. This is anemia of chronic disease superimposed up on bleeding in the past and surgery. Adria Briseno MD cc: [id number] TT: 02/03/2017 08:47:41 Confirmation # [id number] Dictation # [id number] tn
[2017-02-03 08:52] LABS: ALB/GLOB RATIO 0.8 (1.1-1.8); ALKALINE PHOSPHATASE 113 U/L (38-133); ALT/SGPT 25 U/L (7-56); AST/SGOT 34 U/L (15-39); BILIRUBIN,TOTAL 0.7 mg/dL (0.2-1.3); BLOOD UREA NITROGEN 13 mg/dL (7-21); CALCIUM 9.4 mg/dL (8.4-10.5); CARBON DIOXIDE 26 mmol/L (21-33); CHLORIDE 101 mmol/L (95-110); GFR AFRICAN-AMERICAN > 60; GLUCOSE,RANDOM 87 mg/dL (70-110); POTASSIUM 4.1 mmol/L (3.6-5.0); SODIUM 134 mmol/L (132-148); TOTAL PROTEIN 6.9 g/dL (5.8-8.3)
[2017-02-03] MEDS: Sodium Chloride 0.9% 1,000 ML IV SCH (10:09)
--- NOTE | 2017-02-03 14:10 | CON ---
DATE: 02/03/2017 REQUESTING PHYSICIAN: Dr. Brandon Kincaid REASON FOR CONSULTATION: I have been asked to see this 51-year-old female with a history of Crohn's, perirectal abscess, anxiety disorder, bipolar disorder, alcohol use, status post recent incision and drainage of perirectal abscess with a diverting colostomy, found to have a mucinous adenocarcinoma o n drainage of the perirectal abscess, who is admitted to the hospital currently with cellulitis of he r left leg. The patient has chronic recurrent abdominal pain and chronic anemia. She is on chronic opiates for pain control at home. The patient initially told me that she had a colonoscopy within e last year. I could not find a colonoscopy report on the chart. When I asked the patient again whe n her last colonoscopy was, the patient states "maybe I have not had one recently." PAST MEDICAL HISTORY: As above. Again, she has a history of bipolar disorder, alcohol use, opiate d ependence, psoriasis, Crohn's disease, perirectal abscess. PAST SURGICAL HISTORY: Notable for incision and drainage of perirectal abscess and left lower quadra nt colostomy. She has also had a right hemicolectomy. SOCIAL HISTORY: The patient smokes between a half pack and a pack of cigarettes per day on occasion. She denies alcohol use. FAMILY HISTORY: Noncontributory. REVIEW OF SYSTEMS: A 14-point is positive for left leg pain, swelling, abdominal pain. PHYSICAL EXAMINATION: GENERAL: Middle-aged female, lying in bed, in no acute distress. VITAL SIGNS: Reveal temperature of 98.7, blood pressure 140/90, heart rate is 64. HEENT: Reveals sclerae to be white, conjunctivae pale. NECK: Supple. CHEST: Reveals lungs to be clear. HEART: Reveals regular rate and rhythm. ABDOMEN: Soft. She has a left lower quadrant colostomy. EXTREMITIES: Show erythema and swelling of her left leg. LABORATORY DATA: Reveal white blood cell count of 15.5, hemoglobin 8.7. Chemistries reveal normal e lectrolytes. IMPRESSION: A 51-year-old female with a history of longstanding Crohn's disease, noncompliant with m edications, status post recent incision and drainage of perirectal abscess with a left lower quadrant colostomy, now admitted with cellulitis with heme positive stool and anemia. The patient was found to have mucinous adenocarcinoma at the time of surgery with incision and drainage of her perirectal a bscess. She is at high risk for colon cancer given her longstanding Crohn's disease. RECOMMENDATIONS: I have recommended that the patient undergo a colonoscopy. She is refusing colonos copy at this time, stating that she is too weak and would like to wait until she becomes stronger. I will follow up on this patient as needed. Zack Sanchez MD cc: [phone] TT: 02/03/2017 14:09:13 Confirmation # [id number] Dictation # [id number] en
--- NOTE | 2017-02-03 16:12 | CP.PCM.DIS ---
<Jada Cohen - Last Filed: 02/03/17 16:08> Provider - Provider Date of Admission: 01/31/17 00:23 Attending physician: Mari Kincaid MD Primary care physician: Dimitry Chung MD Consults: ID: Dr. Mcneill Heme/onc: Dr. Lucas Psych: Dr. sheth GI: Dr. Sanchez Time Spent in preparation of Discharge (in minutes): 45 Diagnosis - Discharge Diagnosis (1) Adenocarcinoma of colon Status: Chronic (2) Cellulitis Status: Acute (3) Bipolar disorder Status: Chronic (4) Crohn disease Status: Chronic (5) Polysubstance abuse Status: Chronic Hospital Course - Lab Results Lab Results: Most Recent Lab Values WBC 15.5 10^3/ul (4.5-11.0) H D 02/03/17 08:20 RBC 3.15 10^6/uL (3.5-6.1) L 02/03/17 08:20 Hgb 8.7 gm/dL (12.0-16.0) L 02/03/17 08:20 Hct 25.8 % (36.0-48.0) L 02/03/17 08:20 MCV 81.9 fL (80.0-105.0) 02/03/17 08:20 MCH 27.6 pg (25.0-35.0) 02/03/17 08:20 MCHC 33.7 g/dl (31.0-37.0) 02/03/17 08:20 RDW 17.0 % (11.5-14.5) H 02/03/17 08:20 Plt Count 105 10^3/uL (120.0-450.0) L 02/03/17 08:20 MPV 11.0 fl (7.0-11.0) 02/01/17 20:20 Neutrophils % (Manual) 54 % (50.0-70.0) 01/30/17 21:50 Band Neutrophils % 17 % (0-2) H* 01/30/17 21:50 Lymphocytes % (Manual) 25 % (22.0-35.0) 01/30/17 21:50 Atypical Lymphs % 1 % (0.0-0.0) H 01/30/17 21:50 Monocytes % (Manual) 1 % (1.0-6.0) 01/30/17 21:50 Eosinophils % (Manual) 3 % (0.0-3.0) 01/30/17 21:50 PT 12.8 Seconds (9.9-11.8) H 01/31/17 22:00 INR 1.19 (0.93-1.08) H 01/31/17 22:00 APTT 42.4 Seconds (23.7-30.8) H 02/01/17 07:30 pO2 59 mm/Hg (30-55) H 01/30/17 21:50 VBG pH 7.30 (7.32-7.43) L 01/30/17 21:50 VBG pCO2 46.0 (40-60) 01/30/17 21:50 VBG HCO3 22.6 mmol/l (21-28) 01/30/17 21:50 VBG Total CO2 24.0 mmol.L (22-28) 01/30/17 21:50 VBG O2 Sat (Calc) 91.7 % (40-65) H 01/30/17 21:50 VBG Base Excess -3.7 mmol/L (0.0-2.0) L 01/30/17 21:50 VBG Potassium 4.4 mmol/L (3.6-5.2) 01/30/17 21:50 Sodium 135.0 mmol/L (132-148) 01/30/17 21:50 Chloride 112.0 mmol/L (98-107) H 01/30/17 21:50 Glucose 83 mg/dl (65-105) 01/30/17 21:50 Lactate 1.0 mmol/L (0.7-2.1) 01/30/17 21:50 FiO2 21.0 % 01/30/17 21:50 Sodium 134 mmol/L (132-148) 02/03/17 08:20 Potassium 4.1 mmol/L (3.6-5.0) 02/03/17 08:20 Chloride 101 mmol/L (95-110) 02/03/17 08:20 Carbon Dioxide 26 mmol/L (21-33) 02/03/17 08:20 Anion Gap 11 (10-20) 02/03/17 08:20 BUN 13 mg/dL (7-21) 02/03/17 08:20 Creatinine 1.1 mg/dL (0.5-1.4) 02/03/17 08:20 Est GFR ( Amer) > 60 02/03/17 08:20 Est GFR (Non-Af Amer) 53 02/03/17 08:20 Random Glucose 87 mg/dL (70-110) 02/03/17 08:20 Lactic Acid 2.1 mmol/L (0.7-2.1) 01/31/17 06:31 Calcium 9.4 mg/dL (8.4-10.5) 02/03/17 08:20 Iron 100 ug/dL (45-180) 02/01/17 09:06 TIBC 218 ug/dL (265-497) L 02/01/17 09:06 % Saturation 46 % (20-55) 02/01/17 09:06 Ferritin 339.0 ng/mL 02/01/17 08:50 Total Bilirubin 0.7 mg/dL (0.2-1.3) 02/03/17 08:20 AST 34 U/L (15-39) 02/03/17 08:20 ALT 25 U/L (7-56) 02/03/17 08:20 Alkaline Phosphatase 113 U/L (38-133) 02/03/17 08:20 Lactate Dehydrogenase 1188 U/L (333-699) H 01/30/17 21:50 Total Creatine Kinase 87 U/L (35-230) 01/30/17 21:50 Troponin I < 0.01 ng/mL 01/30/17 21:50 NT-Pro-B Natriuret Pep 1450 pg/mL (0-450) H 01/30/17 21:50 Total Protein 6.9 g/dL (5.8-8.3) 02/03/17 08:20 Albumin 3.1 g/dL (3.0-4.8) 02/03/17 08:20 Globulin 3.8 gm/dL 02/03/17 08:20 Albumin/Globulin Ratio 0.8 (1.1-1.8) L 02/03/17 08:20 Beta HCG, Quant < 2.39 mIU/mL (0-6.15) 01/31/17 10:20 Venous Blood Potassium 4.4 mmol/L (3.6-5.2) 01/30/17 21:50 Urine Color Yellow (YELLOW) 01/30/17 23:08 Urine Appearance Clear (CLEAR) 01/30/17 23:08 Urine pH 6.0 (4.7-8.0) 01/30/17 23:08 Ur Specific [place] 1.020 (1.005-1.035) 01/30/17 23:08 Urine Protein Trace mg/dL (<30 mg/dL) H 01/30/17 23:08 Urine Glucose (UA) Negative mg/dL (NEGATIVE) 01/30/17 23:08 Urine Ketones Negative mg/dL (NEGATIVE) 01/30/17 23:08 Urine Blood Negative (NEGATIVE) 01/30/17 23:08 Urine Nitrate Negative (NEGATIVE) 01/30/17 23:08 Urine Bilirubin Negative (NEGATIVE) 01/30/17 23:08 Urine Urobilinogen 0.2 E.U./dL (<1 E.U./dL) 01/30/17 23:08 Ur Leukocyte Esterase Trace Lesley/uL (NEGATIVE) H 01/30/17 23:08 Urine RBC 2 - 5 /hpf (0-2) 01/30/17 23:08 Urine WBC 5 - 10 /hpf (0-6) 01/30/17 23:08 Ur Epithelial Cells 3 - 4 /hpf (0-5) 01/30/17 23:08 Urine Bacteria Small (NEG) 01/30/17 23:08 Urine Osmolality 372 mosm/kg (50-645) 01/31/17 16:35 Ur Random Creatinine 32 mg/dL 01/31/17 16:35 Ur Random Sodium 132 meq/L 01/31/17 16:35 Ur Random Potassium 19.2 meq/L 01/31/17 16:35 Stool Occult Blood Positive (NEGATIVE) H 02/01/17 13:25 Urine Opiates Screen Positive (NEGATIVE) H 01/31/17 16:35 Urine Methadone Screen Negative (NEGATIVE) 01/31/17 16:35 Ur Barbiturates Screen Negative (NEGATIVE) 01/31/17 16:35 Ur Phencyclidine Scrn Negative (NEGATIVE) 01/31/17 16:35 Ur Amphetamines Screen Negative (NEGATIVE) 01/31/17 16:35 U Benzodiazepines Scrn Negative (NEGATIVE) 01/31/17 16:35 U Oth Cocaine Metabols Positive (NEGATIVE) H 01/31/17 16:35 U Cannabinoids Screen Negative (NEGATIVE) 01/31/17 16:35 Blood Type O POSITIVE 01/31/17 12:55 Antibody Screen Negative 01/31/17 12:55 Crossmatch See Detail 01/31/17 12:55 BBK History Checked Patient has bt 01/31/17 12:55 - Hospital Course Hospital Course: 51 y/o F with PMH of Crohn's disease, Asthma, Eczema, bipolar disorder and 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 Pt will be placed on IV abx and ID was consulted. Pt was started on heparin drip for possible PE as pt has increased risk factors including sedentary lifestyle, left lower extremity calf tightness, and hx of malignancy but heparin was discontinued once doppler US of LE was negative and VQ scan showed low probability of PE. Heme/onc was consulted as patient had no follow up after last hospital visit. Heme/onc recommended outpatient follow up for chemotherapy. Patient was anemic on presentation and Hgb was trending down. She was transfused 1 unit of PRBC. GI was consulted for positive stool occult blood. GI recommended colonoscopy but patient refused. Patient was deemed stable for discharged and she was sent with oral antibiotics. Patient is medically stable for discharge. Patient is to follow up with PMD upon discharge. Patient is to follow up with [facility]/Oncologist, Dr. Briseno for follow up for adenocarcinoma of colon Patient is discharged on the following medications: Doxycycline 100 mg po BID # 10 tabs and Augmentin 500 mg po BID #10 tabs. Medications will be delivered to patient before discharge. Patient was counselled on polysubstance abuse. Please see MAR for full details. - Date & Time of H&P Date of H&P: 02/03/17 Time of H&P: 16:16 Discharge Exam - Head Exam Head Exam: NORMAL INSPECTION - Eye Exam Eye Exam: EOMI - ENT Exam ENT Exam: Mucous Membranes Moist - Respiratory Exam Respiratory Exam: Clear to PA & Lateral. absent: Rales, Rhonchi, Wheezes, Respiratory Distress - Cardiovascular Exam Cardiovascular Exam: REGULAR RHYTHM, +S1, +S2. absent: Diastolic murmur, Gallop , Rubs, Systolic Murmur - GI/Abdominal Exam GI & Abdominal Exam: Normal Bowel Sounds. absent: Distended, Firm, Guarding, Rigid, Soft - Extremities Exam Additional comments: no edema or tenderness on LE - Neurological Exam Neurological exam: Alert, Oriented x3 - Psychiatric Exam Psychiatric exam: Normal Affect, Normal Mood - Skin Skin Exam: Dry, Intact, Normal Color, Warm Discharge Plan - Discharge Medications Prescriptions: Amoxicillin/Potassium Clav [Augmentin 500-125 Tablet] 1 each PO BID #10 tablet Doxycycline Monohydrate 100 mg PO BID #10 capsule - Follow Up Plan Condition: GOOD Disposition: HOME/ ROUTINE Instructions: Crohn Disease (DC), Cellulitis (DC), Colostomy Creation (DC) Additional Instructions: Patient is medically stable for discharge. Patient is to follow up with PMD upon discharge. Patient is to follow up with [facility]/Oncologist, Dr. Briseno for follow up for adenocarcinoma of colon Patient is discharged on the following medications: Doxycycline 100 mg po BID # 10 tabs and Augmentin 500 mg po BID #10 tabs. Medications will be delivered to patient before discharge. Patient was counselled on polysubstance abuse. Referrals: Adria Briseno MD [Medical Doctor] - Dimitry Chung MD [Primary Care Provider] - Uli Moreno MD [Staff Provider] - <Mari Kincaid - Last Filed: 02/03/17 16:49> Provider - Provider Date of Admission: 01/31/17 00:23 Attending physician: Mari Kincaid MD Primary care physician: Dimitry Chung MD Hospital Course - Lab Results Lab Results: Most Recent Lab Values WBC 15.5 10^3/ul (4.5-11.0) H D 02/03/17 08:20 RBC 3.15 10^6/uL (3.5-6.1) L 02/03/17 08:20 Hgb 8.7 gm/dL (12.0-16.0) L 02/03/17 08:20 Hct 25.8 % (36.0-48.0) L 02/03/17 08:20 MCV 81.9 fL (80.0-105.0) 02/03/17 08:20 MCH 27.6 pg (25.0-35.0) 02/03/17 08:20 MCHC 33.7 g/dl (31.0-37.0) 02/03/17 08:20 RDW 17.0 % (11.5-14.5) H 02/03/17 08:20 Plt Count 105 10^3/uL (120.0-450.0) L 02/03/17 08:20 MPV 11.0 fl (7.0-11.0) 02/01/17 20:20 Neutrophils % (Manual) 54 % (50.0-70.0) 01/30/17 21:50 Band Neutrophils % 17 % (0-2) H* 01/30/17 21:50 Lymphocytes % (Manual) 25 % (22.0-35.0) 01/30/17 21:50 Atypical Lymphs % 1 % (0.0-0.0) H 01/30/17 21:50 Monocytes % (Manual) 1 % (1.0-6.0) 01/30/17 21:50 Eosinophils % (Manual) 3 % (0.0-3.0) 01/30/17 21:50 PT 12.8 Seconds (9.9-11.8) H 01/31/17 22:00 INR 1.19 (0.93-1.08) H 01/31/17 22:00 APTT 42.4 Seconds (23.7-30.8) H 02/01/17 07:30 pO2 59 mm/Hg (30-55) H 01/30/17 21:50 VBG pH 7.30 (7.32-7.43) L 01/30/17 21:50 VBG pCO2 46.0 (40-60) 01/30/17 21:50 VBG HCO3 22.6 mmol/l (21-28) 01/30/17 21:50 VBG Total CO2 24.0 mmol.L (22-28) 01/30/17 21:50 VBG O2 Sat (Calc) 91.7 % (40-65) H 01/30/17 21:50 VBG Base Excess -3.7 mmol/L (0.0-2.0) L 01/30/17 21:50 VBG Potassium 4.4 mmol/L (3.6-5.2) 01/30/17 21:50 Sodium 135.0 mmol/L (132-148) 01/30/17 21:50 Chloride 112.0 mmol/L (98-107) H 01/30/17 21:50 Glucose 83 mg/dl (65-105) 01/30/17 21:50 Lactate 1.0 mmol/L (0.7-2.1) 01/30/17 21:50 FiO2 21.0 % 01/30/17 21:50 Sodium 134 mmol/L (132-148) 02/03/17 08:20 Potassium 4.1 mmol/L (3.6-5.0) 02/03/17 08:20 Chloride 101 mmol/L (95-110) 02/03/17 08:20 Carbon Dioxide 26 mmol/L (21-33) 02/03/17 08:20 Anion Gap 11 (10-20) 02/03/17 08:20 BUN 13 mg/dL (7-21) 02/03/17 08:20 Creatinine 1.1 mg/dL (0.5-1.4) 02/03/17 08:20 Est GFR ( Amer) > 60 02/03/17 08:20 Est GFR (Non-Af Amer) 53 02/03/17 08:20 Random Glucose 87 mg/dL (70-110) 02/03/17 08:20 Lactic Acid 2.1 mmol/L (0.7-2.1) 01/31/17 06:31 Calcium 9.4 mg/dL (8.4-10.5) 02/03/17 08:20 Iron 100 ug/dL (45-180) 02/01/17 09:06 TIBC 218 ug/dL (265-497) L 02/01/17 09:06 % Saturation 46 % (20-55) 02/01/17 09:06 Ferritin 339.0 ng/mL 02/01/17 08:50 Total Bilirubin 0.7 mg/dL (0.2-1.3) 02/03/17 08:20 AST 34 U/L (15-39) 02/03/17 08:20 ALT 25 U/L (7-56) 02/03/17 08:20 Alkaline Phosphatase 113 U/L (38-133) 02/03/17 08:20 Lactate Dehydrogenase 1188 U/L (333-699) H 01/30/17 21:50 Total Creatine Kinase 87 U/L (35-230) 01/30/17 21:50 Troponin I < 0.01 ng/mL 01/30/17 21:50 NT-Pro-B Natriuret Pep 1450 pg/mL (0-450) H 01/30/17 21:50 Total Protein 6.9 g/dL (5.8-8.3) 02/03/17 08:20 Albumin 3.1 g/dL (3.0-4.8) 02/03/17 08:20 Globulin 3.8 gm/dL 02/03/17 08:20 Albumin/Globulin Ratio 0.8 (1.1-1.8) L 02/03/17 08:20 Beta HCG, Quant < 2.39 mIU/mL (0-6.15) 01/31/17 10:20 Venous Blood Potassium 4.4 mmol/L (3.6-5.2) 01/30/17 21:50 Urine Color Yellow (YELLOW) 01/30/17 23:08 Urine Appearance Clear (CLEAR) 01/30/17 23:08 Urine pH 6.0 (4.7-8.0) 01/30/17 23:08 Ur Specific [place] 1.020 (1.005-1.035) 01/30/17 23:08 Urine Protein Trace mg/dL (<30 mg/dL) H 01/30/17 23:08 Urine Glucose (UA) Negative mg/dL (NEGATIVE) 01/30/17 23:08 Urine Ketones Negative mg/dL (NEGATIVE) 01/30/17 23:08 Urine Blood Negative (NEGATIVE) 01/30/17 23:08 Urine Nitrate Negative (NEGATIVE) 01/30/17 23:08 Urine Bilirubin Negative (NEGATIVE) 01/30/17 23:08 Urine Urobilinogen 0.2 E.U./dL (<1 E.U./dL) 01/30/17 23:08 Ur Leukocyte Esterase Trace Lesley/uL (NEGATIVE) H 01/30/17 23:08 Urine RBC 2 - 5 /hpf (0-2) 01/30/17 23:08 Urine WBC 5 - 10 /hpf (0-6) 01/30/17 23:08 Ur Epithelial Cells 3 - 4 /hpf (0-5) 01/30/17 23:08 Urine Bacteria Small (NEG) 01/30/17 23:08 Urine Osmolality 372 mosm/kg (50-645) 01/31/17 16:35 Ur Random Creatinine 32 mg/dL 01/31/17 16:35 Ur Random Sodium 132 meq/L 01/31/17 16:35 Ur Random Potassium 19.2 meq/L 01/31/17 16:35 Stool Occult Blood Positive (NEGATIVE) H 02/01/17 13:25 Urine Opiates Screen Positive (NEGATIVE) H 01/31/17 16:35 Urine Methadone Screen Negative (NEGATIVE) 01/31/17 16:35 Ur Barbiturates Screen Negative (NEGATIVE) 01/31/17 16:35 Ur Phencyclidine Scrn Negative (NEGATIVE) 01/31/17 16:35 Ur Amphetamines Screen Negative (NEGATIVE) 01/31/17 16:35 U Benzodiazepines Scrn Negative (NEGATIVE) 01/31/17 16:35 U Oth Cocaine Metabols Positive (NEGATIVE) H 01/31/17 16:35 U Cannabinoids Screen Negative (NEGATIVE) 01/31/17 16:35 Blood Type O POSITIVE 01/31/17 12:55 Antibody Screen Negative 01/31/17 12:55 Crossmatch See Detail 01/31/17 12:55 BBK History Checked Patient has bt 01/31/17 12:55 Attending/Attestation - Attestation I have personally seen and examined this patient.: Yes I have fully participated in the care of the patient.: Yes I have reviewed all pertinent clinical information, including history, physical exam and plan: Yes Notes (Text): I have seen and examined patient at bedside. Agree with the above note with the following addition/ exceptions: Briefly this is 51 year old female with history of Crohn's disease s/p right hemicolectomy, asthma, psoriasis, anxiety, depression, perirectal abscess s/p IR guided drainage, removal of phlegmon, diverting colostomy, Bipolar disorder, Drug abuse, Opiate dependence and non- compliance who came for evaluation of left lower extremity swelling / cellulitis. Today patient complains that she feels better however still feels tired. She will be sent home on doxy and augmentin. Patient is refusing to go to [facility]. Physical therapist recommended [facility]WS which will be arranged by pillowcase cleaner. Stool for occult blood positive. S/P 1 unit of prbc. GI consult appreciated. Colonoscopy was advised however patient refused. She also has been refusing blood draws, IVF. Patient has history of mucinous carcinoma of colon. Oncology consult appreciated. Patient is planning to follow up with Dr Lucas. Urine drug screen is positive for cocaine and opiates. Continue teflaro for cellulitis. Prognosis is poor secondary to continuous drug abuse and noncompliance with follow-up. Patient will follow up with Dr. Chung. Dr Mari Kincaid
--- NOTE | 2017-02-03 19:16 | NM ---
PROCEDURE: Radionuclide ventilation and perfusion scan HISTORY: Suspected pulmonary embolism COMPARISON: Not available TECHNIQUE: Pulmonary ventilation scan was performed utilizing 33.0 mCi of inhaled technetium 99 M DTPA aerosol. Views were obtained in multiple projections. A pulmonary perfusion scan was performed utilizing 4.0 mCi of technetium 99 M maa administered intravenously. Multiple views were obtained. FINDINGS: The ventilation scan is limited by extensive central tracheobronchial deposition. Cannot rule out ventilation defects. The perfusion scan demonstrates no significant perfusion defect. The examination is of low probability for pulmonary embolism. IMPRESSION: Low probability examination for pulmonary embolism.
== END 2017-02-03 16:43 | disposition home or self-care (01) ==
LOC: ED 20:46 → ERH 01-31 00:23 → INTOOBSV 01-31 00:23 → ERH 01-31 00:42 → 3RNO 01-31 01:51
PROVIDERS: ADMIT Internal Medicine; ATTEND Hospitalist
PROC: 30233N1 Transfusion of Nonautologous Red Blood Cells into Peripheral Vein, Percutaneous Approach (ICD-10-PCS; principal; 2017-02-01)
DX: L03.116 Cellulitis of left lower limb (principal); C18.9 Malignant neoplasm of colon, unspecified; K50.90 Crohn's disease, unspecified, without complications; N17.9 Acute kidney failure, unspecified; F11.20 Opioid dependence, uncomplicated; D63.8 Anemia in other chronic diseases classified elsewhere; G89.29 Other chronic pain; F14.10 Cocaine abuse, uncomplicated; F31.9 Bipolar disorder, unspecified; J45.909 Unspecified asthma, uncomplicated; L30.9 Dermatitis, unspecified; L40.9 Psoriasis, unspecified; F41.9 Anxiety disorder, unspecified; F17.210 Nicotine dependence, cigarettes, uncomplicated; Z93.3 Colostomy status; Z91.14 Patient's other noncompliance with medication regimen; Z91.19 Patient's noncompliance with other medical treatment and regimen; Z90.49 Acquired absence of other specified parts of digestive tract; Z87.01 Personal history of pneumonia (recurrent)
CPT/HCPCS: 36415; 36430; 71010; 78582; 80053; 80324; 80345; 80346; 80349; 80353; 80358; 80361; 81001; 82550; 82570; 82728; 82803; 83540; 83550; 83605; 83615; 83880; 83935; 83992; 84133; 84300; 84484; 84702; 85025; 85027; 85610; 85730; 86850; 86900; 86920; 87040; 87086; 93005; 93971; 96374; 97116; 97162; 99284; A9540; C9113; G0328; G0378; G8978; G8979; J0712; J1170; J1644; J1940; J2405; J7040; P9016

== ENCOUNTER 2017-02-11 09:15 | Inpatient (IN) | payer MEDICAID, OTHER ==
[2017-02-11 09:22] VITALS: BMI 18.8
[2017-02-11] MEDS ORDERED: HYDROmorphone 1 mg/ml ISec IVP STA ×2 (10:02→12:08)
[2017-02-11 10:12] LABS: ADD MANUAL DIFF? NO
[2017-02-11] MEDS ORDERED: Iohexol 240 (50 ml) ONE (10:17)
[2017-02-11 10:19] LABS: BASO # 0.16 K/mm3 (0.0-2.0); BASO % 2.4 % (0.0-3.0); EOS # 0.6 (0.0-0.7); EOS % 8.3 % (1.5-5.0); GRAN # 4.06 (1.4-6.5); GRAN % 60.3 % (50.0-68.0); LYMPH # 1.6 (1.2-3.4); MEAN CELL VOLUME 84.4 fL (80.0-105.0); MEAN CORPUSCULAR HEMOGLOBIN 27.9 pg (25.0-35.0); MONO # 0.3 (0.1-0.6); PLATELET COUNT 70 10^3/uL (120.0-450.0); RED CELL DISTRIBUTION WIDTH 19.3 % (11.5-14.5); WHITE BLOOD COUNT 6.7 10^3/ul (4.5-11.0)
--- NOTE | 2017-02-11 10:19 | ED PDOC ---
Arrival/HPI - General Chief Complaint: Pain, Chronic Time Seen by Provider: 02/11/17 09:25 Historian: Patient - History of Present Illness Narrative History of Present Illness (Text): 02/11/17 09:47 A 51 year old female, whose past medical history includes Crohn's disease, asthma, bipolar disorder, polysubstance abuse and recent colon cancer, presents to the emergency department complaining of bilateral leg pain but points to the bilateral groin. Patient reports pain has been present for some time now and it is making it difficulty for her to walk. Patient notes some generalized fatigue , nausea,vomiting, abdominal pain but denies any chest pain or other complaints. Patient was recently diagnosed with Colon cancer and was advised to go Dr. Briseno but patient has not yet followed up. PMD: Dr. Chung 02/11/17 10:39 Time/Duration: Other Symptom Onset: Sudden Symptom Course: Unchanged Quality: Other Activities at Onset: Rest Context: Home Past Medical History - Provider Review Nursing Documentation Reviewed: Yes - Infectious Disease Hx of Infectious Diseases: None - Tetanus Immunization Tetanus Immunization: Unknown - Reproductive Menopause: Yes (2 years) - Cardiac Hx Cardiac Disorders: No - Pulmonary Hx Respiratory Disorders: Yes Hx Asthma: Yes Hx Pneumonia: Yes - Neurological Hx Neurological Disorder: No - HEENT Hx HEENT Disorder: No - Renal Hx Renal Disorder: No - Endocrine/Metabolic Hx Endocrine Disorders: No - Hematological/Oncological Hx Blood Transfusions: No Hx Blood Transfusion Reaction: No - Integumentary Hx Dermatological Disorder: Yes Hx Eczema: Yes (flare up noted on stomach/back/bilateral upper and lower extremities) Hx Psoriasis: Yes - Musculoskeletal/Rheumatological Hx Musculoskeletal Disorders: Yes Hx Falls: Yes Other/Comment: passed out x 1 - Gastrointestinal Hx Gastrointestinal Disorders: Yes Hx Crohn's Disease: Yes (10 years ) - Genitourinary/Gynecological Hx Genitourinary Disorders: No - Psychiatric Hx Psychophysiologic Disorder: Yes Hx Anxiety: Yes Hx Substance Use: Yes (heroin) - Surgical History Other/Comment: PT reports a Rt hemicolectomy without stoma placement done 5years ago. - Anesthesia Hx Anesthesia: Yes Hx Anesthesia Reactions: No Hx Malignant Hyperthermia: No - Suicidal Assessment Feels Threatened In Home Enviroment: No Family/Social History - Physician Review Nursing Documentation Reviewed: Yes Family/Social History: Unknown Family HX Smoking Status: Current Some Days Smoker Hx Alcohol Use: Yes Hx Substance Use: Yes (heroin) Substance used: Xanax Hx Substance Use Treatment: No Allergies/Home Meds Allergies/Adverse Reactions: Allergies morphine Allergy (Verified 02/11/17 09:22) RASH Review of Systems - Review of Systems Constitutional: Fatigue. absent: Fevers ENT: absent: Sore Throat Respiratory: absent: SOB, Cough Cardiovascular: absent: Chest Pain Gastrointestinal: Abdominal Pain, Nausea, Vomiting Genitourinary Female: absent: Dysuria Musculoskeletal: Other (bilateral leg/groin pain). absent: Back Pain, Neck Pain Skin: absent: Rash Neurological: absent: Headache Endocrine: absent: Polyuria Psychiatric: absent: Depression Physical Exam Vital Signs Reviewed: Yes Vital Signs Temp Pulse Resp BP Pulse Ox 02/11/17 11:44 69 18 109/59 L 95 02/11/17 10:34 73 15 106/56 L 95 02/11/17 09:15 97.4 F L 85 15 158/95 H 94 L Temperature: Afebrile Blood Pressure: Hypertensive Pulse: Regular Respiratory Rate: Normal Appearance: Positive for: Well-Appearing, Non-Toxic, Comfortable, Other (pale) Pain Distress: None Mental Status: Positive for: Alert and Oriented X 3 - Systems Exam Head: Present: Atraumatic, Normocephalic Pupils: Present: PERRL Extroacular Muscles: Present: EOMI Conjunctiva: Present: Normal Mouth: Present: Moist Mucous Membranes Neck: Present: Normal Range of Motion Respiratory/Chest: Present: Clear to Auscultation, Good Air Exchange. No: Respiratory Distress, Accessory Muscle Use Cardiovascular: Present: Regular Rate and Rhythm, Normal S1, S2. No: Murmurs Abdomen: Present: Normal Bowel Sounds, Other (ostomy bag in place with no surrounding erythema or signs of infection). No: Tenderness, Distention, Peritoneal Signs, Rebound, Guarding Back: Present: Normal Inspection Upper Extremity: Present: Normal Inspection. No: Cyanosis, Edema Lower Extremity: Present: Normal Inspection. No: Edema, CALF TENDERNESS, Other (cellulitis) Neurological: Present: GCS=15, CN II-XII Intact, Speech Normal Skin: Present: Warm, Dry, Normal Color. No: Rashes Lymphatic: Present: Inguinal Adenopathy (bilaterally) Psychiatric: Present: Alert, Oriented x 3, Normal Insight, Normal Concentration Medical Decision Making ED Course and Treatment: 02/11/17 09:47 Impression: A 51 year old female with bilateral inguinal lymphadenopathy. Appears pale and reports generalized fatigue Plan: -- EKG -- Abdomen/Pelvis CT -- Labs -- Urinalysis -- Dilaudid -- Reassess and disposition Prior Visits: Notes and results from previous visits were reviewed. The patient last presented to the emergency department on 01/30/2017 and was admitted for lower extremity cellultits. During her admission the patient had a negative ultrasound and VQ scan. Progress Notes: EKG shows NSR at 78 bpm with T wave inversions in v1-v3, unchanged from prior ekg on 01/2017. 02/11/17 10:38 Labs significant for anemia. Hgb is 7.7 and patient is symptomatic. Type and cross ordered. GFR is 45 and creatinine 1.5 and therefore unable to get CT abd/ pelvis to evaluate lymphadenopathy further. Will transfer to observation for transfusion and further evaluation. Dr. Kincaid agrees. - Lab Interpretations Lab Results: 02/11/17 10:01 02/11/17 10:01 Lab Results 02/11/17 10:55: Blood Type Pending, Antibody Screen Pending, Crossmatch See Detail, BBK History Checked Patient has bt 02/11/17 10:01: Sodium 140, Potassium 3.4 L, Chloride 105, Carbon Dioxide 23, Anion Gap 15, BUN 17, Creatinine 1.5 H, Est GFR ( Amer) 45, Est GFR (Non- Af Amer) 37, Random Glucose 110, Calcium 10.7 H, Total Bilirubin 0.8, AST 36, ALT 18, Alkaline Phosphatase 122, Total Protein 7.8, Albumin 3.7, Globulin 4.1, Albumin/Globulin Ratio 0.9 L 02/11/17 10:01: WBC 6.7 D, RBC 2.76 L, Hgb 7.7 L, Hct 23.3 L, MCV 84.4, MCH 27.9, MCHC 33.0, RDW 19.3 H, Plt Count 70 L, Gran % 60.3, Lymph % (Auto) 24.0, [place] % (Auto) 5.0, Eos % (Auto) 8.3 H, Baso % (Auto) 2.4, Gran # 4.06, Lymph # 1.6, [place] # 0.3, Eos # 0.6, Baso # 0.16 02/11/17 10:00: Urine Color Yellow, Urine Appearance Turbid, Urine pH 6.0, Ur Specific [place] >= 1.030, Urine Protein 100 H, Urine Glucose (UA) Negative, Urine Ketones Negative, Urine Blood Trace-intact H, Urine Nitrate Negative, Urine Bilirubin Negative, Urine Urobilinogen 0.2, Ur Leukocyte Esterase Negative , Urine RBC 0 - 2, Urine WBC 0 - 2, Ur Epithelial Cells 1 - 3, Amorphous Sediment Moderate, Urine Bacteria Small I have reviewed the lab results: Yes - Medication Orders Current Medication Orders: Sodium Chloride (Sodium Chloride 0.9%) 1,000 mls @ 999 mls/hr IV .Q1H1M STA Stop: 02/11/17 12:48 Last Admin: 02/11/17 11:56 Dose: 999 mls/hr Discontinued Medications Hydromorphone HCl (Dilaudid) 1 mg IVP STAT STA Stop: 02/11/17 10:03 Last Admin: 02/11/17 10:19 Dose: 1 mg Iohexol (Omnipaque 240 (50 Ml)) Confirm Administered Dose 50 ml .ROUTE .K-MED ONE Stop: 02/11/17 10:18 - Scribe Statement The provider has reviewed the documentation as recorded by the Gustavo Jackson Provider Froylanibe Attestation: All medical record entries made by the Scribe were at my direction and personally dictated by me. I have reviewed the chart and agree that the record accurately reflects my personal performance of the history, physical exam, medical decision making, and the department course for this patient. I have also personally directed, reviewed, and agree with the discharge instructions and disposition. Disposition/Present on Arrival - Present on Arrival Any Indicators Present on Arrival: No History of DVT/PE: No History of Uncontrolled Diabetes: No Urinary Catheter: No History of Decub. Ulcer: No History Surgical Site Infection Following: None - Disposition Have Diagnosis and Disposition been Completed?: Yes Diagnosis: Anemia Disposition: HOSPITALIZED Disposition Time: 10:40 Patient Plan: Observation Patient Problems: Current Active Problems Problem Status Onset Anemia Acute Condition: FAIR
[2017-02-11 10:24] LABS: HEMATOCRIT 23.3 % (36.0-48.0)
[2017-02-11 10:27] LABS: ALB/GLOB RATIO 0.9 (1.1-1.8); BILIRUBIN,TOTAL 0.8 mg/dL (0.2-1.3); CALCIUM 10.7 mg/dL (8.4-10.5); POTASSIUM 3.4 mmol/L (3.6-5.0); TOTAL PROTEIN 7.8 g/dL (5.8-8.3)
[2017-02-11 10:28] LABS: URINE BILIRUBIN NEGATIVE (NEGATIVE); URINE BLOOD TRACE-INTACT (NEGATIVE); URINE GLUCOSE (UA) NEGATIVE (NEGATIVE); URINE KETONE NEGATIVE (NEGATIVE); URINE LEUKOCYTE ESTERASE NEGATIVE Leu/uL (NEGATIVE); URINE PROTEIN 100 mg/dL (<30 mg/dL); URINE UROBILINOGEN 0.2 E.U./dL (<1 E.U./dL)
[2017-02-11 10:31] LABS: URINE APPEARANCE TURBID (CLEAR); URINE COLOR YELLOW (YELLOW)
[2017-02-11 10:35] LABS: URINE AMORPHOUS SEDIMENT MODERATE; URINE BACTERIA SMALL (NEG); URINE RBC 0 - 2 /hpf (0-2); URINE WBC 0 - 2 /hpf (0-6)
[2017-02-11] MEDS ORDERED: Sodium Chloride 0.9% 1,000 ML IV STA (11:48)
[2017-02-11] MEDS ORDERED: Sodium Chloride 0.9% 1,000 ML IV SCH (13:30)
--- NOTE | 2017-02-11 14:24 | CP.PCM.HP ---
<Jada Cohen - Last Filed: 02/11/17 14:17> History of Present Illness - History of Present Illness History of Present Illness: CC: LE pain 51 year old female with past medical history of Crohns disease, asthma, bipolar disorder, polysubstance abuse and recent diagnoses of adenocarcinoma of the colon presents to ED for LE pain and abd pain. Patient states that LE pain has been present since last hospital discharge 1 week ago. Pain is so severe that she is unable to walk. Patient states that she has been lying in bed since last discharge due to the pain and has not followed up with any doctor. Patient states she completed the course of antibiotics she was discharged on. Patient also states that her groin lymph nodes are tender and swollen. Patient complains of fevers, chills and shortness of breath. Patient denies having any CP, N/V/D/C. Patient denies having any bloody stool in colostomy bag. Patient is non-compliant with follow up with PMD and heme/onc. PMHx: stated above Surgical Hx: Right hemicolectomy, perirectal abscess drainage, colostomy Family Hx: Unremarkable Social Hx: Admits to heavy tobacco, alcohol use, and illicit drug use. Medication: Called [facility] pharmacy. Oxycodone 15 mg po q6 prn #120 tab received on 01/29, oxycontin 60mg q12 #60 tabs received on 01/15, Clonopine 1 mg po BID received on 02/03, gabapentin 800 mg qid received on 01/22, protonix 200 mg po qd. On last admission, she was discharged on doxycycline and Augmentin for 5 days which she finished Allergies: Morphine Present on Admission - Present on Admission Any Indicators Present on Admission: No Past Patient History - Infectious Disease Hx of Infectious Diseases: None - Tetanus Immunizations Tetanus Immunization: Unknown - Past Medical History & Family History Past Medical History?: Yes - Past Social History Smoking Status: Former Smoker Chewing Tobacco Use: No Cigar Use: No Home Situation {Lives}: With Family - CARDIAC Hx Cardiac Disorders: No Hx Angina: No Hx Cardia Arrhythmia: No Hx Circulatory Problems: No Hx Congestive Heart Failure: Yes Hx Heart Murmur: No Hx Heart Transplant: No Hx Hypercholesterolemia: Yes Hx Hypertension: Yes Hx Internal Defibrillator: No Hx Mitral Valve Prolapse: No Hx Pacemaker: No Hx Peripheral Edema: No Hx Peripheral Vascular Disease: No - PULMONARY Hx Respiratory Disorders: No Hx Asthma: Yes Hx Bronchitis: No Hx Chronic Obstructive Pulmonary Disease (COPD): No Hx Emphysema: No Hx Pneumonia: Yes Hx Respiratory Aspiration: No Hx Respiratory Tract Infection: Yes Hx Sleep Apnea: No Hx Tuberculosis: No - NEUROLOGICAL Hx Neurological Disorder: No Hx Alzheimer's Disease: No HX Cerebrovascular Accident: No Hx Dementia: No Hx Dizziness: No Hx Meningitis: No Hx Migraine: No Hx Parkinson's Disease: No Hx Seizures: No Hx Transient Ischemic Attacks (TIA): No - HEENT Hx HEENT Problems: No Hx Blind: No Hx Cataracts: No Hx Deafness: No Hx Difficulty Chewing: No Hx Epistaxis: No Hx Glaucoma: No Hx Macular Degeneration: No - RENAL Hx Chronic Kidney Disease: No Hx Dialysis: No Hx Kidney Stones: No Hx Neurogenic Bladder: No Hx Pyelonephritis: No Hx Renal (Kidney) Cancer: No Hx Renal Failure: No - ENDOCRINE/METABOLIC Hx Endocrine Disorders: No Hx Adrenal Cancer: No Hx Diabetes Insipidus: No Hx Diabetes Mellitus Type 1: No Hx Diabetes Mellitus Type 2: No Hx Hyperthyroidism: No Hx Hypothyroidism: No Hx Systemic Lupus Erythematosus: No - HEMATOLOGICAL/ONCOLOGICAL Hx AIDS: No Hx Anemia: Yes Hx Cancer: Yes (Colon) Hx Chemotherapy: No Hx Cirrhosis: No Hx Hemophilia: No Hx Hepatitis A: No Hx Hepatitis B: No Hx Hepatitis C: No Hx Human Immunodeficiency Virus (HIV): No Hx Metastesis: No Hx Shingles: No Hx Sickle Cell Disease: No Hx Unexplained Bleeding: No - INTEGUMENTARY Hx Dermatological Problems: No Hx Basil Cell: No Hx Eczema: No Hx Melanoma: No Hx Psoriasis: No Hx Squamous Cell: No - MUSCULOSKELETAL/RHEUMATOLOGICAL Hx Arthritis: No Hx Back Pain: Yes Hx Degenerative Joint Disease: No Hx Falls: Yes Hx Fractures: No Hx Gout: No Hx Herniated Disk: Yes Hx Myasthenia Gravis: No Hx Osteoarthritis: No Hx Osteomyelitis: No Hx Osteoporosis: No Hx Rhabdomyolysis: No Hx Spinal Stenosis: No Hx Unsteady Gait: No - GASTROINTESTINAL Hx Colostomy: Yes Hx Crohn's Disease: Yes Hx Diverticulitis: No Hx Gall Bladder Disease: No Hx Gastroesophageal Reflux: Yes Hx Ileostomy: No Hx Liver Failure: No Hx Pancreatitis: No HX Swallowing Problems: No Hx Ulcer: No - GENITOURINARY/GYNECOLOGICAL Hx Genitourinary Disorders: No Hx Hematuria: No Hx Incontinence: No Hx Sexually Transmitted Disorders: No - PSYCHIATRIC Hx Anxiety: Yes Hx Bipolar Disorder: Yes Hx Depression: Yes Hx Emotional Abuse: No Hx Hallucinations: Yes Hx Panic Symptoms: No Hx Paranoia: No Hx Post Traumatic Stress Disorder: No Hx Psychosis: No Hx Physical Abuse: No Hx Schizophrenia: No Hx Sexual Abuse: No Hx Substance Use: Yes - SURGICAL HISTORY Hx Surgeries: Yes Hx Amputation: No Hx Appendectomy: Yes Hx Cardiac Catheterization: No Hx Cholecystectomy: No Hx Coronary Stent: No Hx Gastric Bypass Surgery: No Hx Hysterectomy: No Hx Joint Replacement: No Hx Kidney Transplant: No Hx Liver Transplant: No Hx Mastectomy: No Hx Musculoskeletal Surgery: No Hx Open Heart Surgery: No Hx Orthopedic Surgery: No Hx Splenectomy: No Hx Valve Replacement: No - ANESTHESIA Hx Anesthesia: Yes Hx Anesthesia Reactions: No Hx Malignant Hyperthermia: No Meds Allergies/Adverse Reactions: Allergies Allergy/AdvReac Type Severity Reaction Status Date / Time morphine Allergy RASH Verified 02/11/17 09:22 Physical Exam - Constitutional Appears: Non-toxic, No Acute Distress - Head Exam Head Exam: ATRAUMATIC - Eye Exam Eye Exam: EOMI - ENT Exam ENT Exam: Mucous Membranes Moist - Respiratory Exam Respiratory Exam: Clear to Auscultation Bilateral. absent: Accessory Muscle Use , Rales, Rhonchi, Wheezes, Respiratory Distress - Cardiovascular Exam Cardiovascular Exam: REGULAR RHYTHM, +S1, +S2. absent: Diastolic murmur, Gallop , Rubs, Systolic Murmur - GI/Abdominal Exam GI & Abdominal Exam: Normal Bowel Sounds, Soft. absent: Distended, Firm, Guarding, Rigid, Tenderness Additional comments: B/L enlarged lymph nodes that are tender - Extremities Exam Extremities exam: Positive for: tenderness (B/L ). Negative for: pedal edema - Neurological Exam Neurological exam: Alert, Oriented x3 - Psychiatric Exam Psychiatric exam: Normal Affect, Normal Mood - Skin Skin Exam: Dry, Intact, Normal Color, Warm Results - Vital Signs Recent Vital Signs: Last Vital Signs Temp 98.1 F 02/11/17 13:24 Pulse 89 02/11/17 13:24 Resp 20 02/11/17 13:24 BP 137/91 H 02/11/17 13:24 Pulse Ox 95 02/11/17 11:44 - Labs Result Diagrams: 02/11/17 10:01 02/11/17 10:01 Assessment & Plan - Assessment and Plan (Free Text) Assessment: 51 year old female with past medical history of Crohns disease, asthma, bipolar disorder, polysubstance abuse and recent diagnoses of adenocarcinoma of the colon is admitted for LE pain likely 2/2 lymphadenopathy and symptomatic anemia. Hgb on admission is 7.7 and MCV is 84.4. 1. LE pain: Patient had US of LE on 01/30 which was negative. Pain management with home medication: oxycodone 15 mg po q4h prn 2. Normocytic anemia: Patient is transfused 1 unit of PRBC in ED. Will follow up repeat H&H. Patient had iron studies done on 02/01 which showed normal iron, low TIBC, normal % saturation and normal ferritin. Likely from GI source. Patient refused to have colonoscopy on last admission. Will consult GI, Dr. Nunez. 3. Inguinal lymphadenopathy likely 2/2 colon cancer: Will consult heme/onc for further recommendations. On last admission, heme/onc recommended following up outpatient for chemotherapy. Patient is noncompliant with follow up. Will get CT of abd/pelvis with PO contrast 4. Adenocarcinoma of colon: will consult heme/onc 5. Polysubstance abuse: UDS is positive for opiates, benzos, cocaine Prophylaxis: Protonix. SCDs. Will hold on starting lovenox until bleed is ruled out Case discussed with attending, Dr. Haley - Date & Time Date: 02/11/17 Time: 14:26 <Cristina Haley - Last Filed: 02/11/17 17:35> Results - Vital Signs Recent Vital Signs: Last Vital Signs Temp 97.9 F 02/11/17 16:00 Pulse 74 02/11/17 16:00 Resp 20 02/11/17 16:00 BP 133/85 02/11/17 16:00 Pulse Ox 97 02/11/17 16:00 - Labs Result Diagrams: 02/11/17 10:01 02/11/17 10:01 Labs: Laboratory Results - last 24 hr 02/11/17 13:00 Urine Opiates Screen Positive H Urine Methadone Screen Negative Ur Barbiturates Screen Negative Ur Phencyclidine Scrn Negative Ur Amphetamines Screen Negative U Benzodiazepines Scrn Positive H U Oth Cocaine Metabols Positive H U Cannabinoids Screen Negative Attending/Attestation - Attestation I have personally seen and examined this patient.: Yes I have fully participated in the care of the patient.: Yes I have reviewed all pertinent clinical information: Yes Notes (Text): 02/11/17 17:27 attending note; Patient seen and examined with resident. Patient is a 51 year old female with history of Crohn's disease s/p right hemicolectomy, mucinous adenocarcinom of colon, asthma, anxiety, depression, divertng colostomy, Bipolar disorder, cocaine abuse, Opiate dependence and non- compliance with follow up is admitted with abdominal discomfort and bilateral groin swelling. patient was recently admitted for cellulitis and discharged home with po antibiotics. Patient did not follow up with GI and oncology as recommended. Cocaine abuse; cessation is strongly advised. Urine drug screen is positive for cocaine, opiates and benzos. increasing inguinal and retroperitoneal lymphadenopathy; oncology evaluation with Dr. Lucas requested. Surgery evaluation requested. Anxiety depression; continue home meds. Anemia; getting 1 unit PRBC transfusion. GI evaluation appreciated. Patient refused EGD and colonoscopy again. Prognosis is poor secondary to continuous drug abuse, noncompliance with follow up. Currently not getting any treatment for colon cancer due to drug abuse and noncompliance with follow up. Case discussed with PMD Dr. Chung in detail.
--- NOTE | 2017-02-11 15:05 | CP.PCM.CON ---
<Tova Villeda - Last Filed: 02/11/17 14:56> History of Present Illness - History of Present Illness History of Present Illness: General Surgery Consult Note for Dr. Marti 51 F with significant PMHx of Chron's disease, perirectal abscess, s/p hemicolectomy with colostomy and mucinous adenocarcinoma of the rectum presented to [facility] ED with complaints of Lower extremity pain, abdominal pain, and groin pain. Pt claims she has had these symptoms before however this most current episode began 4 days ago and has progressively worsened to the point where she could no longer walk without being in pain. Pt admits to tolerating solid foods, having good output via colostomy. Pt also admits to not following up with any physicians once being discharged on account of not feeling well enough to do so. Pt admits to fatigue. abdominal pain and shortness of breath. Pt denied n/v, chest pains, bloody stool, hemoptysis, hematemesis. PMHx: Crohns disease, psoriasis, asthma, bipolar disorder, polysubstance abuse and mucinous adenocarcinoma of the colon Surgical Hx: Right hemicolectomy, perirectal abscess drainage, colostomy Family Hx: Unremarkable Social Hx: Admits to heavy tobacco, alcohol use, and illicit drug use. Meds: MAR reviewed Allergies: Morphine Review of Systems - Review of Systems Review of Systems: as per HPI otherwise negative Past Patient History - Infectious Disease Hx of Infectious Diseases: None - Tetanus Immunizations Tetanus Immunization: Unknown - Past Medical History & Family History Past Medical History?: Yes - Past Social History Smoking Status: Former Smoker Chewing Tobacco Use: No Cigar Use: No Home Situation {Lives}: With Family - CARDIAC Hx Cardiac Disorders: No Hx Angina: No Hx Cardia Arrhythmia: No Hx Circulatory Problems: No Hx Congestive Heart Failure: Yes Hx Heart Murmur: No Hx Heart Transplant: No Hx Hypercholesterolemia: Yes Hx Hypertension: Yes Hx Internal Defibrillator: No Hx Mitral Valve Prolapse: No Hx Pacemaker: No Hx Peripheral Edema: No Hx Peripheral Vascular Disease: No - PULMONARY Hx Respiratory Disorders: No Hx Asthma: Yes Hx Bronchitis: No Hx Chronic Obstructive Pulmonary Disease (COPD): No Hx Emphysema: No Hx Pneumonia: Yes Hx Respiratory Aspiration: No Hx Respiratory Tract Infection: Yes Hx Sleep Apnea: No Hx Tuberculosis: No - NEUROLOGICAL Hx Neurological Disorder: No Hx Alzheimer's Disease: No HX Cerebrovascular Accident: No Hx Dementia: No Hx Dizziness: No Hx Meningitis: No Hx Migraine: No Hx Parkinson's Disease: No Hx Seizures: No Hx Transient Ischemic Attacks (TIA): No - HEENT Hx HEENT Problems: No Hx Blind: No Hx Cataracts: No Hx Deafness: No Hx Difficulty Chewing: No Hx Epistaxis: No Hx Glaucoma: No Hx Macular Degeneration: No - RENAL Hx Chronic Kidney Disease: No Hx Dialysis: No Hx Kidney Stones: No Hx Neurogenic Bladder: No Hx Pyelonephritis: No Hx Renal (Kidney) Cancer: No Hx Renal Failure: No - ENDOCRINE/METABOLIC Hx Endocrine Disorders: No Hx Adrenal Cancer: No Hx Diabetes Insipidus: No Hx Diabetes Mellitus Type 1: No Hx Diabetes Mellitus Type 2: No Hx Hyperthyroidism: No Hx Hypothyroidism: No Hx Systemic Lupus Erythematosus: No - HEMATOLOGICAL/ONCOLOGICAL Hx AIDS: No Hx Anemia: Yes Hx Cancer: Yes (Colon) Hx Chemotherapy: No Hx Cirrhosis: No Hx Hemophilia: No Hx Hepatitis A: No Hx Hepatitis B: No Hx Hepatitis C: No Hx Human Immunodeficiency Virus (HIV): No Hx Metastesis: No Hx Shingles: No Hx Sickle Cell Disease: No Hx Unexplained Bleeding: No - INTEGUMENTARY Hx Dermatological Problems: No Hx Basil Cell: No Hx Eczema: No Hx Melanoma: No Hx Psoriasis: No Hx Squamous Cell: No - MUSCULOSKELETAL/RHEUMATOLOGICAL Hx Arthritis: No Hx Back Pain: Yes Hx Degenerative Joint Disease: No Hx Falls: Yes Hx Fractures: No Hx Gout: No Hx Herniated Disk: Yes Hx Myasthenia Gravis: No Hx Osteoarthritis: No Hx Osteomyelitis: No Hx Osteoporosis: No Hx Rhabdomyolysis: No Hx Spinal Stenosis: No Hx Unsteady Gait: No - GASTROINTESTINAL Hx Colostomy: Yes Hx Crohn's Disease: Yes Hx Diverticulitis: No Hx Gall Bladder Disease: No Hx Gastroesophageal Reflux: Yes Hx Ileostomy: No Hx Liver Failure: No Hx Pancreatitis: No HX Swallowing Problems: No Hx Ulcer: No - GENITOURINARY/GYNECOLOGICAL Hx Genitourinary Disorders: No Hx Hematuria: No Hx Incontinence: No Hx Sexually Transmitted Disorders: No - PSYCHIATRIC Hx Anxiety: Yes Hx Bipolar Disorder: Yes Hx Depression: Yes Hx Emotional Abuse: No Hx Hallucinations: Yes Hx Panic Symptoms: No Hx Paranoia: No Hx Post Traumatic Stress Disorder: No Hx Psychosis: No Hx Physical Abuse: No Hx Schizophrenia: No Hx Sexual Abuse: No Hx Substance Use: Yes - SURGICAL HISTORY Hx Surgeries: Yes Hx Amputation: No Hx Appendectomy: Yes Hx Cardiac Catheterization: No Hx Cholecystectomy: No Hx Coronary Stent: No Hx Gastric Bypass Surgery: No Hx Hysterectomy: No Hx Joint Replacement: No Hx Kidney Transplant: No Hx Liver Transplant: No Hx Mastectomy: No Hx Musculoskeletal Surgery: No Hx Open Heart Surgery: No Hx Orthopedic Surgery: No Hx Splenectomy: No Hx Valve Replacement: No - ANESTHESIA Hx Anesthesia: Yes Hx Anesthesia Reactions: No Hx Malignant Hyperthermia: No Meds Allergies/Adverse Reactions: Allergies Allergy/AdvReac Type Severity Reaction Status Date / Time morphine Allergy RASH Verified 02/11/17 09:22 - Medications Medications: Current Medications Acetaminophen (Tylenol 325mg Tab) 650 mg PO Q6 PRN PRN Reason: Fever >100.4 F Arformoterol Tartrate (Brovana) 15 mcg IH [id number] [facility] Budesonide (Pulmicort Respules) 0.5 mg IH [id number] [facility] Clonazepam (Klonopin) 1 mg PO BID [facility] PRN Reason: Protocol Enoxaparin Sodium (Lovenox) 30 mg SC DAILY [facility] PRN Reason: Protocol Gabapentin (Neurontin) 800 mg PO QID [facility] Sodium Chloride (Sodium Chloride 0.9%) 1,000 mls @ 100 mls/hr IV .Q10H [facility] Ondansetron HCl (Zofran Inj) 4 mg IVP Q6 PRN PRN Reason: Nausea/Vomiting Oxycodone HCl (Oxycodone Immediate Release Tab) 15 mg PO Q4 [facility] Pantoprazole Sodium (Protonix Ec Tab) 40 mg PO DAILY [facility] Quetiapine Fumarate (Seroquel) 200 mg PO BID [facility] Physical Exam - Constitutional Appears: No Acute Distress, Agitated - Head Exam Head Exam: ATRAUMATIC, NORMAL INSPECTION, NORMOCEPHALIC - Eye Exam Eye Exam: EOMI, Normal appearance, PERRL Pupil Exam: NORMAL ACCOMODATION, PERRL - ENT Exam ENT Exam: Mucous Membranes Moist, Normal Exam - Neck Exam Neck exam: Positive for: Normal Inspection - Respiratory Exam Respiratory Exam: Clear to Auscultation Bilateral, NORMAL BREATHING PATTERN - Cardiovascular Exam Cardiovascular Exam: REGULAR RHYTHM, +S1, +S2 - GI/Abdominal Exam GI & Abdominal Exam: Normal Bowel Sounds, Soft. absent: Tenderness Additional comments: colostomy with pink viable stoma - Rectal Exam Rectal Exam: Deferred - Extremities Exam Extremities exam: Positive for: tenderness. Negative for: joint swelling Additional comments: inguinal lymphadenopathy R>L - Neurological Exam Neurological exam: Alert, CN II-XII Intact, Normal Gait, Oriented x3, Reflexes Normal - Psychiatric Exam Psychiatric exam: Agitated - Skin Skin Exam: Dry, Intact, Normal Color, Warm Results - Vital Signs Recent Vital Signs: Last Vital Signs Temp 98.1 F 02/11/17 13:24 Pulse 89 02/11/17 13:24 Resp 20 02/11/17 13:24 BP 137/91 H 02/11/17 13:24 Pulse Ox 95 02/11/17 11:44 - Labs Result Diagrams: 02/11/17 10:01 02/11/17 10:01 Labs: Laboratory Results - last 24 hr 02/11/17 13:00 Urine Opiates Screen Positive H Urine Methadone Screen Negative Ur Barbiturates Screen Negative Ur Phencyclidine Scrn Negative Ur Amphetamines Screen Negative U Benzodiazepines Scrn Positive H U Oth Cocaine Metabols Positive H U Cannabinoids Screen Negative Assessment & Plan - Assessment and Plan (Free Text) Assessment: 51 F presents with LE tenderness, abdominal pain, and groin pain likely 2/2 recent mucinous adenocarcinoma dx - CT abdomen pending will f/u - currently transfusing 1unit pRBCs - no active signs of bleeding, hold off on anticoagulation for now, continue with SCDs - monitor vitals, IVF, analgesics - Colostomy with good function - F/u with heme/on, Dr. Lucas consulted - f/u GI recommendations, Dr. Nunez consulted - continue medical management as per primary team - will reassess surgical intervention after heme/onc recommendations of chemo/ radiation for mucinous adenocarcinoma Seen, reviewed and discussed with attending Tova Villeda PGY1 <Dheeraj Marti - Last Filed: 02/15/17 23:05> Meds - Medications Medications: Current Medications Arformoterol Tartrate (Brovana) 15 mcg IH [id number] [facility] Last Admin: 02/15/17 19:42 Dose: 15 mcg Budesonide (Pulmicort Respules) 0.5 mg IH [id number] RAOUL Last Admin: 02/15/17 19:43 Dose: 0.5 mg Clonazepam (Klonopin) 1 mg PO BID RAOUL PRN Reason: Protocol Last Admin: 02/14/17 10:00 Dose: Not Given Gabapentin (Neurontin) 800 mg PO QID [facility] Last Admin: 02/14/17 13:29 Dose: Not Given Heparin Sodium (Porcine) (Heparin) 5,000 units SC Q8 RAOUL PRN Reason: Protocol Last Admin: 02/14/17 05:36 Dose: Not Given Hydrocortisone Sodium Succinate (Solu-Cortef) 50 mg IVP Q6H [facility] Last Admin: 02/15/17 20:24 Dose: 50 mg NOREPINEPHRINE BIT/0.9 % NACL (Levophed 4 Mg/ 250 Ml Ns Premixed) 4 mg in 250 mls @ 15 mls/hr IV .[id number] PRN; Protocol; 4 MCG/MIN PRN Reason: TITRATE PER MD ORDER Last Admin: 02/15/17 02:00 Dose: 20 mcg/min, 75 mls/hr Vasopressin 20 units/ Dextrose 101 mls @ 9.09 mls/hr IV .Q11H7M RAOUL; 0.03 U/MIN PRN Reason: Protocol Last Admin: 02/15/17 06:31 Dose: 9.09 mls/hr Fentanyl Citrate (Fentanyl Citrate/Sodium Chloride 1 Mg/100 Ml) 1,000 mcg in 100 mls @ 7.5 mls/hr IV .[id number] PRN; Protocol; 75 MCG/HR PRN Reason: TITRATE PER MD ORDER Last Admin: 02/15/17 08:15 Dose: 150 mcg/hr, 15 mls/hr Sodium Bicarbonate 150 meq/ (Dextrose) 1,150 mls @ 150 mls/hr IV .Q7H40M [facility] Last Admin: 02/14/17 23:45 Dose: 150 mls/hr Midazolam 100 mg/100ml in NS (Midazolam 100 Mg/100ml In Ns) 100 mg in 100 mls @ 7 mls/hr IV .[id number] PRN; Protocol; 7 MG/HR PRN Reason: Agitation Last Admin: 02/15/17 08:16 Dose: 7 mg/hr, 7 mls/hr Epinephrine HCl 1 mg/ Sodium (Chloride) 51 mls @ 15.3 mls/hr IV .Q3H20M PRN; Protocol; 5 MCG/MIN PRN Reason: TITRATE PER MD ORDER Last Titration: 02/15/17 11:30 Dose: 0 mcg/min, 0 mls/hr Dobutamine HCl/Dextrose (Dobutamine/Dextrose 5% 500mg/250ml) 500 mg in 250 mls @ 3.844 mls/hr IV .Q24H PRN; Protocol; 2.5 MCG/KG/MIN PRN Reason: TITRATE PER PROTOCOL Last Admin: 02/14/17 14:47 Dose: 3.844 mls/hr Meropenem 1g/NS 100mL IVPB (Meropenem 1g/Ns 100ml Ivpb) 1 gm in 100 mls @ 100 mls/hr IVPB Q8 RAOUL PRN Reason: Protocol Last Admin: 02/15/17 22:13 Dose: 100 mls/hr Midazolam HCl (Versed Inj) 2 mg IVP Q4H PRN PRN Reason: Agitation Last Admin: 02/14/17 09:40 Dose: 2 mg Ondansetron HCl (Zofran Inj) 4 mg IVP Q6 PRN PRN Reason: Nausea/Vomiting Last Admin: 02/13/17 16:26 Dose: 4 mg Oxycodone HCl (Oxycodone Immediate Release Tab) 15 mg PO Q4 PRN PRN Reason: Pain, moderate (4-7) Last Admin: 02/14/17 00:59 Dose: 15 mg Oxycodone HCl (Oxycontin Extended Release Tab) 60 mg PO Q12H PRN PRN Reason: Pain, moderate (4-7) Last Admin: 02/13/17 18:52 Dose: 60 mg Pantoprazole Sodium (Protonix Inj) 40 mg IVP DAILY [facility] Last Admin: 02/15/17 10:42 Dose: 40 mg Results - Vital Signs Recent Vital Signs: Last Vital Signs Temp 100.0 F H 02/15/17 18:00 Pulse 92 H 02/15/17 20:20 Resp 37 H 02/14/17 22:51 BP 96/67 L 02/15/17 20:00 Pulse Ox 93 L 02/15/17 20:20 - Labs Result Diagrams: 02/15/17 06:14 02/15/17 06:14 Labs: Laboratory Results - last 24 hr 02/14/17 02/14/17 02/14/17 11:55 20:08 22:59 WBC RBC Hgb Hct MCV MCH MCHC RDW Plt Count MPV Corrected WBC (Man) Neutrophils % (Manual) Band Neutrophils % Lymphocytes % (Manual) Atypical Lymphs % Monocytes % (Manual) Eosinophils % (Manual) Basophils % (Manual) Myelocytes % Promyelocytes % Nucleated RBC % Platelet Evaluation Polychromasia Poikilocytosis (manual Anisocytosis (manual) Helmet Cells PT INR APTT Fibrin Degrad Products D-Dimer, Quantitative pCO2 pO2 59 H HCO3 ABG pH ABG Total CO2 ABG O2 Saturation ABG O2 Content ABG Base Excess ABG Hemoglobin ABG Carboxyhemoglobin POC ABG HHb (Measured) ABG Methemoglobin ABG O2 Capacity ABG Potassium VBG pH 7.19 L* VBG pCO2 39.0 L VBG HCO3 14.9 L VBG Total CO2 16.1 L VBG O2 Sat (Calc) 89.2 H VBG Base Excess -12.5 L VBG Potassium 5.6 H Hgb O2 Saturation Sodium 138.0 Chloride 108.0 H Glucose 95 Lactate 5.7 H* FiO2 21.0 Potassium Carbon Dioxide Anion Gap BUN Creatinine Est GFR ( Amer) Est GFR (Non-Af Amer) POC Glucose (mg/dL) 168 H Random Glucose Calcium Phosphorus Magnesium Total Bilirubin AST ALT Alkaline Phosphatase Total Protein Albumin Globulin Albumin/Globulin Ratio Procalcitonin Arterial Blood Potassium Venous Blood Potassium 5.6 H Random Vancomycin Blood Type O POSITIVE Antibody Screen Negative Crossmatch See Detail BBK History Checked Patient has bt 02/14/17 02/14/17 02/14/17 22:59 22:59 22:59 WBC 5.2 D RBC 3.51 Hgb 10.2 L Hct 29.7 L MCV 84.6 MCH 29.1 MCHC 34.3 RDW 16.2 H Plt Count 102 L MPV 11.0 Corrected WBC (Man) 3.3 L Neutrophils % (Manual) 20 L Band Neutrophils % 3 H Lymphocytes % (Manual) 67 H Atypical Lymphs % 2 H Monocytes % (Manual) 4 Eosinophils % (Manual) 3 Basophils % (Manual) Myelocytes % 1 Promyelocytes % Nucleated RBC % 56 Platelet Evaluation Low Polychromasia Slight Poikilocytosis (manual Slight Anisocytosis (manual) 1+ Helmet Cells Slight PT 19.1 H INR 1.77 H APTT 33.9 H Fibrin Degrad Products >40 ug/ml D-Dimer, Quantitative 18.00 H pCO2 pO2 HCO3 ABG pH ABG Total CO2 ABG O2 Saturation ABG O2 Content ABG Base Excess ABG Hemoglobin ABG Carboxyhemoglobin POC ABG HHb (Measured) ABG Methemoglobin ABG O2 Capacity ABG Potassium VBG pH VBG pCO2 VBG HCO3 VBG Total CO2 VBG O2 Sat (Calc) VBG Base Excess VBG Potassium Hgb O2 Saturation Sodium Chloride Glucose Lactate FiO2 Potassium Carbon Dioxide Anion Gap BUN Creatinine Est GFR ( Amer) Est GFR (Non-Af Amer) POC Glucose (mg/dL) Random Glucose Calcium Phosphorus Magnesium Total Bilirubin AST ALT Alkaline Phosphatase Total Protein Albumin Globulin Albumin/Globulin Ratio Procalcitonin Arterial Blood Potassium Venous Blood Potassium Random Vancomycin Blood Type Antibody Screen Crossmatch BBK History Checked 02/14/17 02/14/17 02/15/17 22:59 23:05 00:46 WBC RBC Hgb Hct MCV MCH MCHC RDW Plt Count MPV Corrected WBC (Man) Neutrophils % (Manual) Band Neutrophils % Lymphocytes % (Manual) Atypical Lymphs % Monocytes % (Manual) Eosinophils % (Manual) Basophils % (Manual) Myelocytes % Promyelocytes % Nucleated RBC % Platelet Evaluation Polychromasia Poikilocytosis (manual Anisocytosis (manual) Helmet Cells PT INR APTT Fibrin Degrad Products D-Dimer, Quantitative pCO2 pO2 HCO3 ABG pH ABG Total CO2 ABG O2 Saturation ABG O2 Content ABG Base Excess ABG Hemoglobin ABG Carboxyhemoglobin POC ABG HHb (Measured) ABG Methemoglobin ABG O2 Capacity ABG Potassium VBG pH VBG pCO2 VBG HCO3 VBG Total CO2 VBG O2 Sat (Calc) VBG Base Excess VBG Potassium Hgb O2 Saturation Sodium 138 Chloride 109 H Glucose Lactate FiO2 Potassium 5.4 H Carbon Dioxide 16 L Anion Gap 18 BUN 28 H Creatinine 2.1 H Est GFR ( Amer) 30 Est GFR (Non-Af Amer) 25 POC Glucose (mg/dL) 87 114 H Random Glucose 91 Calcium 7.6 L Phosphorus Magnesium Total Bilirubin 1.7 H AST 601 H ALT 183 H Alkaline Phosphatase 75 Total Protein 5.8 Albumin 2.8 L Globulin 2.9 Albumin/Globulin Ratio 1.0 L Procalcitonin Arterial Blood Potassium Venous Blood Potassium Random Vancomycin Blood Type Antibody Screen Crossmatch BBK History Checked 02/15/17 02/15/17 02/15/17 05:30 06:14 06:14 WBC 4.4 L RBC 3.57 Hgb 10.7 L Hct 29.5 L MCV 82.6 MCH 30.0 MCHC 36.3 RDW 16.5 H Plt Count 79 L MPV 11.5 H Corrected WBC (Man) 3.3 L Neutrophils % (Manual) 18 L Band Neutrophils % Lymphocytes % (Manual) 46 H Atypical Lymphs % Monocytes % (Manual) 21 H Eosinophils % (Manual) 8 H Basophils % (Manual) 1 Myelocytes % 4 Promyelocytes % 2 Nucleated RBC % 32 Platelet Evaluation Polychromasia Poikilocytosis (manual Anisocytosis (manual) Helmet Cells PT INR APTT Fibrin Degrad Products D-Dimer, Quantitative pCO2 29 L pO2 68.0 L HCO3 19.2 L ABG pH 7.43 ABG Total CO2 20.1 L ABG O2 Saturation 94.4 L ABG O2 Content ABG Base Excess -4.1 L ABG Hemoglobin ABG Carboxyhemoglobin POC ABG HHb (Measured) ABG Methemoglobin ABG O2 Capacity ABG Potassium 4.8 VBG pH VBG pCO2 VBG HCO3 VBG Total CO2 VBG O2 Sat (Calc) VBG Base Excess VBG Potassium Hgb O2 Saturation Sodium 138.0 138 Chloride 108.0 H 106 Glucose 147 H Lactate 4.2 H* FiO2 50.0 Potassium 4.5 Carbon Dioxide 20 L Anion Gap 17 BUN 32 H Creatinine 1.9 H Est GFR ( Amer) 34 Est GFR (Non-Af Amer) 28 POC Glucose (mg/dL) Random Glucose 135 H Calcium 7.2 L Phosphorus 7.5 H Magnesium 1.6 L Total Bilirubin 1.6 H AST 2956 H ALT 755 H Alkaline Phosphatase 101 Total Protein 5.7 L Albumin 2.7 L Globulin 3.0 Albumin/Globulin Ratio 0.9 L Procalcitonin Arterial Blood Potassium 4.8 Venous Blood Potassium Random Vancomycin Blood Type Antibody Screen Crossmatch BBK History Checked 02/15/17 02/15/17 02/15/17 11:13 11:13 11:13 WBC RBC Hgb Hct MCV MCH MCHC RDW Plt Count MPV Corrected WBC (Man) Neutrophils % (Manual) Band Neutrophils % Lymphocytes % (Manual) Atypical Lymphs % Monocytes % (Manual) Eosinophils % (Manual) Basophils % (Manual) Myelocytes % Promyelocytes % Nucleated RBC % Platelet Evaluation Polychromasia Poikilocytosis (manual Anisocytosis (manual) Helmet Cells PT INR APTT Fibrin Degrad Products D-Dimer, Quantitative pCO2 pO2 33 HCO3 ABG pH ABG Total CO2 ABG O2 Saturation ABG O2 Content ABG Base Excess ABG Hemoglobin ABG Carboxyhemoglobin POC ABG HHb (Measured) ABG Methemoglobin ABG O2 Capacity ABG Potassium VBG pH 7.47 H VBG pCO2 28.0 L VBG HCO3 20.4 L VBG Total CO2 21.3 L VBG O2 Sat (Calc) 65.8 H VBG Base Excess -2.4 L VBG Potassium 4.0 Hgb O2 Saturation Sodium 140.0 Chloride 107.0 Glucose 150 H Lactate 4.8 H* FiO2 21.0 Potassium Carbon Dioxide Anion Gap BUN Creatinine Est GFR ( Amer) Est GFR (Non-Af Amer) POC Glucose (mg/dL) Random Glucose Calcium Phosphorus Magnesium Total Bilirubin AST ALT Alkaline Phosphatase Total Protein Albumin Globulin Albumin/Globulin Ratio Procalcitonin > 200.00 H Arterial Blood Potassium Venous Blood Potassium 4.0 Random Vancomycin 30.9 Blood Type Antibody Screen Crossmatch BBK History Checked 02/15/17 14:40 WBC RBC Hgb Hct MCV MCH MCHC RDW Plt Count MPV Corrected WBC (Man) Neutrophils % (Manual) Band Neutrophils % Lymphocytes % (Manual) Atypical Lymphs % Monocytes % (Manual) Eosinophils % (Manual) Basophils % (Manual) Myelocytes % Promyelocytes % Nucleated RBC % Platelet Evaluation Polychromasia Poikilocytosis (manual Anisocytosis (manual) Helmet Cells PT INR APTT Fibrin Degrad Products D-Dimer, Quantitative pCO2 26 L pO2 67.0 L HCO3 19.4 L ABG pH 7.48 H ABG Total CO2 20.2 L ABG O2 Saturation 94.7 L ABG O2 Content 12.4 L ABG Base Excess -3.2 L ABG Hemoglobin 9.5 L ABG Carboxyhemoglobin 1.6 H POC ABG HHb (Measured) 5.2 H ABG Methemoglobin 0.6 ABG O2 Capacity 13.1 L ABG Potassium VBG pH VBG pCO2 VBG HCO3 VBG Total CO2 VBG O2 Sat (Calc) VBG Base Excess VBG Potassium Hgb O2 Saturation 92.6 L Sodium Chloride Glucose Lactate FiO2 80.0 Potassium Carbon Dioxide Anion Gap BUN Creatinine Est GFR ( Amer) Est GFR (Non-Af Amer) POC Glucose (mg/dL) Random Glucose Calcium Phosphorus Magnesium Total Bilirubin AST ALT Alkaline Phosphatase Total Protein Albumin Globulin Albumin/Globulin Ratio Procalcitonin Arterial Blood Potassium Venous Blood Potassium Random Vancomycin Blood Type Antibody Screen Crossmatch BBK History Checked Assessment & Plan - Assessment and Plan (Free Text) Assessment: Patient was seen and examined by me. I agree with assessment and plan as per resident's note with one correction regarding patient's right him colectomy which the best of my knowledge she did not have done before. - Date & Time Date: 02/11/17 Time: 16:20
[2017-02-11] MEDS: Pantoprazole 40 mg EC Tab PO SCH (15:31)
[2017-02-11] MEDS: oxyCODONE 15 mg Immediate Release Tab PO SCH ×2 (15:32→21:17)
--- NOTE | 2017-02-11 17:49 | CT ---
PROCEDURE: CT Abdomen and Pelvis with Oral contrast. HISTORY: colonc cancer, abd pain COMPARISON: Comparison is made to the previous study dated 12/26/2016 TECHNIQUE: Contiguous axial images of the abdomen and pelvis. Oral contrast was administered. No IV contrast given. Coronal and Sagittal reformats generated. Radiation dose: Total exam DLP = 435.51 mGy-cm. This CT exam was performed using one or more of the following dose reduction techniques: Automated exposure control, adjustment of the mA and/or kV according to patient size, and/or use of iterative reconstruction technique. FINDINGS: LOWER THORAX: Interval worsening of reticulonodular opacities at the lower lungs since the previous exam. No evidence of pleural effusion. LIVER: Hepatomegaly is again noted. GALLBLADDER AND BILE DUCTS: No evidence of cholecystitis. The common bile duct is mildly dilated PANCREAS: Unremarkable. No mass. No ductal dilatation. SPLEEN: Unremarkable. No splenomegaly. ADRENALS: Unremarkable. KIDNEYS AND URETERS: Interval worsening of right hydronephrosis since the previous exam. The current study demonstrate moderate to mildly severe right hydronephrosis and [id number] left hydronephrosis. No evidence of obstructing stone. BLADDER: The bladder is partially distended and displaced anteriorly by the mildly enlarged uterus and by complex mass and collection at the rectum. REPRODUCTIVE: The uterus is slightly displaced anteriorly by a rectal mass and collection and appears mildly enlarged. APPENDIX: No evidence of appendicitis. BOWEL: Patient status post left-sided colostomy. There is no evidence of high-grade bowel obstruction. Dilated bowel loops at the right colostomy. No evidence of high grade bowel obstruction. Moderately dilated bowel loops at the right mid abdomen again seen. Mass lesion and adjacent fluid collection at the rectum are again seen. PERITONEUM: No evidence of ascites or free air in the abdomen. LYMPH NODES: Large conglomerate retroperitoneal lymphadenopathy are again seen. Large pelvic and bilateral inguinal lymphadenopathy are also seen. VASCULATURE: Unremarkable. No aortic aneurysm. BONES: No fracture or destructive lesion. OTHER FINDINGS: None. IMPRESSION: Interval worsening of right hydronephrosis since the previous exam. Findings likely due to compression on or partial obstruction of the right ureter. Otherwise no significant interval change since the previous study dated 12/26/2016.
[2017-02-11] MEDS: oxyCODONE 20 mg ER Tab (oxyCONTIN) PO SCH (17:54)
--- NOTE | 2017-02-11 18:16 | CP.PCM.CON ---
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 The patient has been evaluated previously by our service for her history of CD and has categorically refused any endoscopic evaluations to date. She was recently admitted in November for abdominal pain and through extensive work up was found to have a mucinous adenocarcinoma on I&D of a perirectal abscess. She underwent exploratory laparotomy and required partial omentectomy and diverting ostomy formation. Since discharge, she had been referred to oncology and GI but has not followed up appropriately and has required multiple readmissions for generalized weakness. The patient is very anxious and depressed, distraught with her medical situation, but simultaneously unwilling to seek help or discuss her illness with physicians both in house and on an outpatient basis. The patient was admitted to the hospital for generalized weakness, B/L groin and leg pain which makes it difficult for her to walk. Our service has been consulted for evaluation of her anemia and to assist with her newly diagnosed malignancy and prior history of Crohn's disease. She admits to intermittent bloody stool to her ostomy as well as per rectum. She denies any hematemesis/ hemoptysis/hematuria. In regards to her Crohn's, she is not currently taking any medications. For her ongoing malignancy, she states she has been unable to follow with oncology. A repeat CT A/P performed on admission shows a recurrent fluid collection and rectal mass. As previously stated, to date she has categorically refused endoscopic evaluation. Today, she is agreeable to colonoscopy for further evaluation of her rectal bleeding and diagnosed malignancy. PMHx: See HPI PSHx: Terminal ileum resection, cecectomy, appendectomy, partial omentectomy, I& D perirectal abscess FHx: Discussed with patient and she denies any significant family history Social: +Tobacco, EtOH and cocaine abuse Endo: Denies prior evaluation Review of Systems - Constitutional Constitutional: absent: Anorexia, Chills, Fever - EENT Eyes: absent: Change in Vision Nose/Mouth/Throat: absent: Sore Throat - Cardiovascular Cardiovascular: absent: Chest Pain, Dyspnea, Edema - Respiratory Respiratory: absent: Cough, Dyspnea, Excessive Mucous Production - Gastrointestinal Gastrointestinal: Abdominal Pain, Bloating. absent: Cramping, Diarrhea, Dyspepsia, Heartburn, Hematemesis, Hematochezia, Melena, Nausea, Vomiting - Genitourinary Genitourinary: absent: Dysuria, Hematuria, Urinary Frequency, Urinary Urgency - Musculoskeletal Musculoskeletal: absent: Back Pain, Neck Pain - Integumentary Integumentary: absent: New Lesions, Rash - Neurological Neurological: absent: Dizziness, Numbness, Focal Weakness - Psychiatric Psychiatric: Anxiety, Depression - Endocrine Endocrine: absent: Polydipsia, Polyphagia, Polyuria - Hematologic/Lymphatic Hematologic: absent: Easy Bleeding, Easy Bruising, Lymphadenopathy Past Patient History - Infectious Disease Hx of Infectious Diseases: None - Tetanus Immunizations Tetanus Immunization: Unknown - Past Medical History & Family History Past Medical History?: Yes - Past Social History Smoking Status: Former Smoker Chewing Tobacco Use: No Cigar Use: No Home Situation {Lives}: With Family - CARDIAC Hx Cardiac Disorders: No Hx Angina: No Hx Cardia Arrhythmia: No Hx Circulatory Problems: No Hx Congestive Heart Failure: Yes Hx Heart Murmur: No Hx Heart Transplant: No Hx Hypercholesterolemia: Yes Hx Hypertension: Yes Hx Internal Defibrillator: No Hx Mitral Valve Prolapse: No Hx Pacemaker: No Hx Peripheral Edema: No Hx Peripheral Vascular Disease: No - PULMONARY Hx Respiratory Disorders: No Hx Asthma: Yes Hx Bronchitis: No Hx Chronic Obstructive Pulmonary Disease (COPD): No Hx Emphysema: No Hx Pneumonia: Yes Hx Respiratory Aspiration: No Hx Respiratory Tract Infection: Yes Hx Sleep Apnea: No Hx Tuberculosis: No - NEUROLOGICAL Hx Neurological Disorder: No Hx Alzheimer's Disease: No HX Cerebrovascular Accident: No Hx Dementia: No Hx Dizziness: No Hx Meningitis: No Hx Migraine: No Hx Parkinson's Disease: No Hx Seizures: No Hx Transient Ischemic Attacks (TIA): No - HEENT Hx HEENT Problems: No Hx Blind: No Hx Cataracts: No Hx Deafness: No Hx Difficulty Chewing: No Hx Epistaxis: No Hx Glaucoma: No Hx Macular Degeneration: No - RENAL Hx Chronic Kidney Disease: No Hx Dialysis: No Hx Kidney Stones: No Hx Neurogenic Bladder: No Hx Pyelonephritis: No Hx Renal (Kidney) Cancer: No Hx Renal Failure: No - ENDOCRINE/METABOLIC Hx Endocrine Disorders: No Hx Adrenal Cancer: No Hx Diabetes Insipidus: No Hx Diabetes Mellitus Type 1: No Hx Diabetes Mellitus Type 2: No Hx Hyperthyroidism: No Hx Hypothyroidism: No Hx Systemic Lupus Erythematosus: No - HEMATOLOGICAL/ONCOLOGICAL Hx AIDS: No Hx Anemia: Yes Hx Cancer: Yes (Colon) Hx Chemotherapy: No Hx Cirrhosis: No Hx Hemophilia: No Hx Hepatitis A: No Hx Hepatitis B: No Hx Hepatitis C: No Hx Human Immunodeficiency Virus (HIV): No Hx Metastesis: No Hx Shingles: No Hx Sickle Cell Disease: No Hx Unexplained Bleeding: No - INTEGUMENTARY Hx Dermatological Problems: No Hx Basil Cell: No Hx Eczema: No Hx Melanoma: No Hx Psoriasis: No Hx Squamous Cell: No - MUSCULOSKELETAL/RHEUMATOLOGICAL Hx Arthritis: No Hx Back Pain: Yes Hx Degenerative Joint Disease: No Hx Falls: Yes Hx Fractures: No Hx Gout: No Hx Herniated Disk: Yes Hx Myasthenia Gravis: No Hx Osteoarthritis: No Hx Osteomyelitis: No Hx Osteoporosis: No Hx Rhabdomyolysis: No Hx Spinal Stenosis: No Hx Unsteady Gait: No - GASTROINTESTINAL Hx Colostomy: Yes Hx Crohn's Disease: Yes Hx Diverticulitis: No Hx Gall Bladder Disease: No Hx Gastroesophageal Reflux: Yes Hx Ileostomy: No Hx Liver Failure: No Hx Pancreatitis: No HX Swallowing Problems: No Hx Ulcer: No - GENITOURINARY/GYNECOLOGICAL Hx Genitourinary Disorders: No Hx Hematuria: No Hx Incontinence: No Hx Sexually Transmitted Disorders: No - PSYCHIATRIC Hx Anxiety: Yes Hx Bipolar Disorder: Yes Hx Depression: Yes Hx Emotional Abuse: No Hx Hallucinations: Yes Hx Panic Symptoms: No Hx Paranoia: No Hx Post Traumatic Stress Disorder: No Hx Psychosis: No Hx Physical Abuse: No Hx Schizophrenia: No Hx Sexual Abuse: No Hx Substance Use: Yes - SURGICAL HISTORY Hx Surgeries: Yes Hx Amputation: No Hx Appendectomy: Yes Hx Cardiac Catheterization: No Hx Cholecystectomy: No Hx Coronary Stent: No Hx Gastric Bypass Surgery: No Hx Hysterectomy: No Hx Joint Replacement: No Hx Kidney Transplant: No Hx Liver Transplant: No Hx Mastectomy: No Hx Musculoskeletal Surgery: No Hx Open Heart Surgery: No Hx Orthopedic Surgery: No Hx Splenectomy: No Hx Valve Replacement: No - ANESTHESIA Hx Anesthesia: Yes Hx Anesthesia Reactions: No Hx Malignant Hyperthermia: No Meds Allergies/Adverse Reactions: Allergies Allergy/AdvReac Type Severity Reaction Status Date / Time morphine Allergy RASH Verified 02/11/17 09:22 - Medications Medications: Current Medications Acetaminophen (Tylenol 325mg Tab) 650 mg PO Q6 PRN PRN Reason: Fever >100.4 F Arformoterol Tartrate (Brovana) 15 mcg IH [id number] [facility] Budesonide (Pulmicort Respules) 0.5 mg IH [id number] [facility] Clonazepam (Klonopin) 1 mg PO BID [facility] PRN Reason: Protocol Last Admin: 02/11/17 17:05 Dose: 1 mg Enoxaparin Sodium (Lovenox) 30 mg SC DAILY [facility] PRN Reason: Protocol Gabapentin (Neurontin) 800 mg PO QID [facility] Last Admin: 02/11/17 17:54 Dose: 800 mg Sodium Chloride (Sodium Chloride 0.9%) 1,000 mls @ 100 mls/hr IV .Q10H [facility] Ondansetron HCl (Zofran Inj) 4 mg IVP Q6 PRN PRN Reason: Nausea/Vomiting Oxycodone HCl (Oxycodone Immediate Release Tab) 15 mg PO Q4 [facility] Last Admin: 02/11/17 15:32 Dose: 15 mg Oxycodone HCl (Oxycontin Extended Release Tab) 60 mg PO Q12H [facility] Last Admin: 02/11/17 17:54 Dose: 60 mg Pantoprazole Sodium (Protonix Ec Tab) 40 mg PO DAILY [facility] Last Admin: 02/11/17 15:31 Dose: 40 mg Quetiapine Fumarate (Seroquel) 200 mg PO BID [facility] Last Admin: 02/11/17 17:05 Dose: 200 mg Physical Exam - Constitutional Appears: Unkempt, Chronically Ill - Eye Exam Eye Exam: EOMI, PERRL - ENT Exam ENT Exam: Mucous Membranes Moist - Respiratory Exam Respiratory Exam: Clear to Auscultation Bilateral. absent: Rales, Rhonchi, Wheezes - Cardiovascular Exam Cardiovascular Exam: RRR, +S1, +S2 - GI/Abdominal Exam GI & Abdominal Exam: Normal Bowel Sounds, Soft. absent: Distended, Firm, Guarding, Rigid, Tenderness Additional comments: ostomy patent and located in LLQ - Extremities Exam Extremities exam: Positive for: pedal edema Additional comments: LLE>RLE - Neurological Exam Neurological exam: Alert, Oriented x3 - Psychiatric Exam Psychiatric exam: Agitated, Anxious, Depressed - Skin Skin Exam: Dry, Warm Results - Vital Signs Recent Vital Signs: Last Vital Signs Temp 98.3 F 02/11/17 17:56 Pulse 74 02/11/17 17:56 Resp 20 02/11/17 17:56 BP 139/83 02/11/17 17:56 Pulse Ox 97 02/11/17 16:00 - Labs Result Diagrams: 02/12/17 06:15 02/12/17 06:15 Labs: Laboratory Results - last 24 hr 02/11/17 13:00 Urine Opiates Screen Positive H Urine Methadone Screen Negative Ur Barbiturates Screen Negative Ur Phencyclidine Scrn Negative Ur Amphetamines Screen Negative U Benzodiazepines Scrn Positive H U Oth Cocaine Metabols Positive H U Cannabinoids Screen Negative Assessment & Plan - Assessment and Plan (Free Text) Assessment: Patient is a 51yo female with PMHx significant for 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 -Mucinous adenocarcinoma - colon suspected primary -Normocytic anemia -Thrombocytopenia -Leg/Groin pain -Crohn's disease, nonadherent to therapy/follow up -Severe anxiety/depression with history of Bipolar d/o -Multisubstance abuse Plan: -No overt GI bleeding noted by since admission -Agreeable to colonoscopy tomorrow; will prep today -Liquid diet, NPO past MN -Patient may have compromised iron absorption in the small bowel given her hx of CD; prior Iron studies performed after blood transfusion thus difficult to interpret results -Consider IV iron supplementation -Await oncology recommendations -Consider lower extremity doppler despite recent negative exam - Date & Time Date: 02/12/17 Time: 07:00 <Migue Schneider - Last Filed: 02/12/17 13:31> Meds - Medications Medications: Current Medications Acetaminophen (Tylenol 325mg Tab) 650 mg PO Q6 PRN PRN Reason: Fever >100.4 F Last Admin: 02/12/17 10:12 Dose: 650 mg Arformoterol Tartrate (Brovana) 15 mcg IH [id number] Last Admin: 02/12/17 07:50 Dose: 15 mcg Budesonide (Pulmicort Respules) 0.5 mg IH [id number] [facility] Last Admin: 02/12/17 07:50 Dose: 0.5 mg Clonazepam (Klonopin) 1 mg PO BID [facility] PRN Reason: Protocol Last Admin: 02/12/17 10:05 Dose: 1 mg Enoxaparin Sodium (Lovenox) 30 mg SC DAILY [facility] PRN Reason: Protocol Last Admin: 02/12/17 10:14 Dose: Not Given Gabapentin (Neurontin) 800 mg PO QID [facility] Last Admin: 02/12/17 10:04 Dose: 800 mg Sodium Chloride (Sodium Chloride 0.9%) 1,000 mls @ 100 mls/hr IV .Q10H [facility] Last Admin: 02/12/17 09:59 Dose: 100 mls/hr Ondansetron HCl (Zofran Inj) 4 mg IVP Q6 PRN PRN Reason: Nausea/Vomiting Oxycodone HCl (Oxycodone Immediate Release Tab) 15 mg PO Q4 PRN PRN Reason: Pain, moderate (4-7) Last Admin: 02/12/17 10:10 Dose: 15 mg Oxycodone HCl (Oxycontin Extended Release Tab) 60 mg PO Q12H PRN PRN Reason: Pain, moderate (4-7) Pantoprazole Sodium (Protonix Ec Tab) 40 mg PO DAILY [facility] Last Admin: 02/12/17 10:05 Dose: 40 mg Quetiapine Fumarate (Seroquel) 200 mg PO BID [facility] Last Admin: 02/12/17 10:05 Dose: 200 mg Results - Vital Signs Recent Vital Signs: Last Vital Signs Temp 98.3 F 02/12/17 07:32 Pulse 70 02/12/17 07:32 Resp 20 02/12/17 07:32 BP 108/82 02/12/17 07:32 Pulse Ox 98 02/12/17 07:32 - Labs Result Diagrams: 02/12/17 06:15 02/12/17 06:15 Labs: Laboratory Results - last 24 hr 02/11/17 02/11/17 02/12/17 13:00 22:37 06:15 WBC 7.9 8.2 RBC 3.07 L 3.07 L Hgb 8.9 L 8.6 L Hct 25.7 L 25.8 L MCV 83.7 84.0 MCH 29.0 28.0 MCHC 34.6 33.3 RDW 17.0 H 17.5 H Plt Count 64 L 53 L Gran % 56.2 Lymph % (Auto) 26.3 [place] % (Auto) 6.8 H Eos % (Auto) 8.5 H Baso % (Auto) 2.2 Gran # 4.60 Lymph # 2.2 [place] # 0.6 Eos # 0.7 Baso # 0.18 PT INR APTT Sodium Potassium Chloride Carbon Dioxide Anion Gap BUN Creatinine Est GFR ( Amer) Est GFR (Non-Af Amer) Random Glucose Calcium Iron TIBC % Saturation Total Bilirubin AST ALT Alkaline Phosphatase Total Protein Albumin Globulin Albumin/Globulin Ratio Urine Opiates Screen Positive H Urine Methadone Screen Negative Ur Barbiturates Screen Negative Ur Phencyclidine Scrn Negative Ur Amphetamines Screen Negative U Benzodiazepines Scrn Positive H U Oth Cocaine Metabols Positive H U Cannabinoids Screen Negative 02/12/17 02/12/17 02/12/17 06:15 06:15 06:15 WBC RBC Hgb Hct MCV MCH MCHC RDW Plt Count Gran % Lymph % (Auto) [place] % (Auto) Eos % (Auto) Baso % (Auto) Gran # Lymph # [place] # Eos # Baso # PT 14.7 H INR 1.36 H APTT 27.0 Sodium 139 Potassium 3.8 Chloride 108 Carbon Dioxide 23 Anion Gap 12 BUN 15 Creatinine 1.4 Est GFR ( Amer) 48 Est GFR (Non-Af Amer) 40 Random Glucose 78 Calcium 10.3 Iron 222 H TIBC 247 L % Saturation 90 H Total Bilirubin 1.0 AST 32 ALT 21 Alkaline Phosphatase 113 Total Protein 6.8 Albumin 3.1 Globulin 3.7 Albumin/Globulin Ratio 0.8 L Urine Opiates Screen Urine Methadone Screen Ur Barbiturates Screen Ur Phencyclidine Scrn Ur Amphetamines Screen U Benzodiazepines Scrn U Oth Cocaine Metabols U Cannabinoids Screen Attending/Attestation - Attestation I have personally seen and examined this patient.: Yes I have fully participated in the care of the patient.: Yes I have reviewed all pertinent clinical information: Yes Notes (Text): Patient seen and examined with GI fellow. Agree with his note as documented above with the following additions/exceptions. This is a 51 yo female with PMHx of recently diagnosed mucinous adenocarcinoma (found after I&D perirectal abscess, presumed colonic origin), Crohn's disease with h/o non-adherence to medical therapy, polysubstance abuse, depression/bipolar disorder who is admitted with weakness/leg pain. She has previously refused any endoscopic evaluation/treatment of Crohn's disease. She has not followed up with her oncologist for further management of recently diagnosed adenocarcinoma. CT on admission shows perirectal collection/mass. She reports occasionally loose stool via ostomy and occasional rectal bleeding. The patient appears agreeable to endoscopic evaluation and will tentatively plan for colonoscopy tomorrow. Clear liquids today and Golytely bowel prep today, keep NPO p MN. Discussed with Dr. Haley. 02/12/17 13:27
--- NOTE | 2017-02-11 18:52 | CON ---
DATE: 02/11/2017 REFERRING PHYSICIAN: Dr. Haley. REASON FOR CONSULT: Chronic obstructive lung disease. HISTORY OF PRESENT ILLNESS: This is a 51-year-old female known to have asthma, bipolar disorder, his tory of Crohn disease, history of substance abuse, also recently diagnosed with adenocarcinoma of the colon. She has some leg pain. Did have shortness of breath and fever. Has a colostomy. Admitted for further workup. Has some cough and shortness of breath though. PAST MEDICAL HISTORY: As per history of present illness. FAMILY HISTORY: No significant cardiopulmonary disease reported. SOCIAL HISTORY: She has a history of smoking, alcohol use and history of illicit drug use. ALLERGIES: MORPHINE. MEDICATIONS: She is on Klonopin 1 mg twice a day, Lovenox 30 mg subQ daily, Neurontin 800 mg q.i.d., oxycodone immediate release 15 mg q.4 hours, Protonix 40 mg daily, Seroquel 200 mg twice a day, IV f luid normal saline 100 mL per hour, Tylenol p.r.n., Zofran p.r.n. REVIEW OF SYSTEMS: No headache, no rhinitis. Has a cough and shortness of breath. No vomiting or a bdominal pain. No dysuria. No leg pain or leg swelling. PHYSICAL EXAMINATION: GENERAL: Sitting side of the bed. VITAL SIGNS: Temperature is 98, heart rate is 89, respiratory rate is 20, blood pressure 137/91, pul se ox 95% on room air. HEENT: Moist mucous membrane. No ulcer or thrush noted. NECK: Supple. No JVD. LUNGS: Has a few scattered rhonchi. HEART: S1, S2. ABDOMEN: Soft, nontender, nondistended. Colostomy bag is working well. EXTREMITIES: There is no edema. NEUROLOGIC: Awake, alert, follows simple commands. LABORATORY DATA: Shows hemoglobin 7.7, hematocrit 23.3, WBC 6.7, platelet is 70. Sodium 140, potass ium 3.4, chloride 105, bicarbonate 23, BUN 17, creatinine 1.5, glucose 110, calcium is 10.7, AST 36, ALT 18, alkaline phosphatase is 122, albumin 3.7. IMPRESSION AND PLAN: Chronic obstructive lung disease, bipolar disorder, history of Crohn disease, m ulti-substance abuse, adenocarcinoma of the colon, anemia. I agree with the present management. The patient is being transfused. Will add inhaled bronchodilator. Gastric prophylaxis. SCD to lower e xtremity. Need to do anemia workup including iron studies. Oncology followup. Thank you and will follow with you. Gerardo Anguiano MD cc: [phone] TT: 02/11/2017 18:51:51 Confirmation # [id number] Dictation # [id number]
[2017-02-11] MEDS: Arformoterol 15 mcg/2 ml Inh Sol IH SCH (19:46)
[2017-02-11] MEDS: Budesonide 0.5 mg/2 ml Inhal Susp UD IH SCH (19:46)
--- NOTE | 2017-02-11 22:23 | CARD ---
APPROVED REPORT EKG Measurement Heart [id number] <Conclusion> Normal sinus rhythm T wave abnormality, consider anterior ischemia Abnormal ECG
[2017-02-11 22:40] LABS: HEMATOCRIT 25.7 % (36.0-48.0); MEAN CELL VOLUME 83.7 fL (80.0-105.0); MEAN CORPUSCULAR HGB CONC 34.6 g/dl (31.0-37.0); PLATELET COUNT 64 10^3/uL (120.0-450.0); WHITE BLOOD COUNT 7.9 10^3/ul (4.5-11.0)
[2017-02-12] MEDS: oxyCODONE 15 mg Immediate Release Tab PO SCH ×2 (00:39→05:51)
[2017-02-12] MEDS: oxyCODONE 20 mg ER Tab (oxyCONTIN) PO SCH (05:48)
[2017-02-12 06:41] LABS: ADD MANUAL DIFF? NO
[2017-02-12 06:55] LABS: BASO # 0.18 K/mm3 (0.0-2.0); BASO % 2.2 % (0.0-3.0); EOS # 0.7 (0.0-0.7); EOS % 8.5 % (1.5-5.0); GRAN % 56.2 % (50.0-68.0); HEMATOCRIT 25.8 % (36.0-48.0); LYMPH # 2.2 (1.2-3.4); LYMPH % 26.3 % (22.0-35.0); MEAN CORPUSCULAR HGB CONC 33.3 g/dl (31.0-37.0); MONO # 0.6 (0.1-0.6); MONO % 6.8 % (1.0-6.0); PLATELET COUNT 53 10^3/uL (120.0-450.0); RED CELL DISTRIBUTION WIDTH 17.5 % (11.5-14.5); WHITE BLOOD COUNT 8.2 10^3/ul (4.5-11.0)
[2017-02-12 07:00] LABS: ALB/GLOB RATIO 0.8 (1.1-1.8); CALCIUM 10.3 mg/dL (8.4-10.5); POTASSIUM 3.8 mmol/L (3.6-5.0); TOTAL PROTEIN 6.8 g/dL (5.8-8.3)
[2017-02-12 07:05] LABS: IRON 222 ug/dL (45-180)
[2017-02-12 07:08] LABS: INR 1.36 (0.93-1.08)
[2017-02-12] MEDS: Arformoterol 15 mcg/2 ml Inh Sol IH SCH ×2 (07:50→19:45)
[2017-02-12] MEDS: Budesonide 0.5 mg/2 ml Inhal Susp UD IH SCH ×2 (07:50→19:45)
--- NOTE | 2017-02-12 09:16 | CP.PCM.PN ---
<Tova Villeda - Last Filed: 02/12/17 09:23> Subjective - Date & Time of Evaluation Date of Evaluation: 02/12/17 Time of Evaluation: 07:00 - Subjective Subjective: General Surgery Progress Note for Dr. Marti Pt was seen and examined at bedside. Pt states that she is feeling better compared to yesterday and that she has more relief from her pain. Pt has been tolerating po diet. Pt denied fever, chills, fatigue, abdominal pain. Pt admits to LE pains and groin pains however it is improved from yesterday. Objective - Vital Signs/Intake and Output Vital Signs (last 24 hours): Temp Pulse Resp BP Pulse Ox 98.3 F 70 20 108/82 98 02/12/17 07:32 02/12/17 07:32 02/12/17 07:32 02/12/17 07:32 02/12/17 07:32 Intake and Output: 02/12/17 02/12/17 06:59 18:59 Intake Total 780 Balance 780 - Medications Medications: Current Medications Acetaminophen (Tylenol 325mg Tab) 650 mg PO Q6 PRN PRN Reason: Fever >100.4 F Arformoterol Tartrate (Brovana) 15 mcg IH [id number] [facility] Last Admin: 02/12/17 07:50 Dose: 15 mcg Budesonide (Pulmicort Respules) 0.5 mg IH [id number] [facility] Last Admin: 02/12/17 07:50 Dose: 0.5 mg Clonazepam (Klonopin) 1 mg PO BID [facility] PRN Reason: Protocol Last Admin: 02/11/17 17:05 Dose: 1 mg Enoxaparin Sodium (Lovenox) 30 mg SC DAILY [facility] PRN Reason: Protocol Gabapentin (Neurontin) 800 mg PO QID [facility] Last Admin: 02/11/17 21:16 Dose: 800 mg Sodium Chloride (Sodium Chloride 0.9%) 1,000 mls @ 100 mls/hr IV .Q10H [facility] Ondansetron HCl (Zofran Inj) 4 mg IVP Q6 PRN PRN Reason: Nausea/Vomiting Oxycodone HCl (Oxycodone Immediate Release Tab) 15 mg PO Q4 PRN PRN Reason: Pain, moderate (4-7) Oxycodone HCl (Oxycontin Extended Release Tab) 60 mg PO Q12H PRN PRN Reason: Pain, moderate (4-7) Pantoprazole Sodium (Protonix Ec Tab) 40 mg PO DAILY [facility] Last Admin: 02/11/17 15:31 Dose: 40 mg Quetiapine Fumarate (Seroquel) 200 mg PO BID [facility] Last Admin: 02/11/17 17:05 Dose: 200 mg - Labs Labs: 02/12/17 06:15 02/12/17 06:15 PT 14.7 Seconds (9.9-11.8) H 02/12/17 06:15 INR 1.36 (0.93-1.08) H 02/12/17 06:15 APTT 27.0 Seconds (23.7-30.8) 02/12/17 06:15 - Constitutional Appears: No Acute Distress, Unkempt - Head Exam Head Exam: ATRAUMATIC, NORMAL INSPECTION, NORMOCEPHALIC - Eye Exam Eye Exam: EOMI, Normal appearance, PERRL - ENT Exam ENT Exam: Mucous Membranes Moist, Normal Exam - Neck Exam Neck Exam: Full ROM, Normal Inspection. absent: Lymphadenopathy - Respiratory Exam Respiratory Exam: Clear to Ausculation Bilateral, NORMAL BREATHING PATTERN - Cardiovascular Exam Cardiovascular Exam: REGULAR RHYTHM, +S1, +S2. absent: Murmur - GI/Abdominal Exam GI & Abdominal Exam: Soft, Normal Bowel Sounds. 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 Pt at this time is still questioning the idea of having a colonoscopy, as recommended by GI. Pt was educated and explained in detail, she conferred understanding and would like some time to consider undergoing a colonoscopy. - CT abdomen demonstrated worsening of right hydronephrosis 2/2 compression or partial compression of right ureter - transfused 2 unit pRBCs, Hgb: 8.6 - no active signs of bleeding, hold off on anticoagulation for now, continue with SCDs - monitor vitals, IVF, analgesics - Colostomy with good function - F/u with heme/on, Dr. Lucas consulted - f/u GI recommendations, Dr. Nunez consulted - continue medical management as per primary team - will reassess surgical intervention after heme/onc recommendations of chemo/ radiation for mucinous adenocarcinoma Seen, reviewed and discussed with attending Tova Villeda PGY1 <Dheeraj Marti - Last Filed: 02/15/17 23:10> Objective - Vital Signs/Intake and Output Vital Signs (last 24 hours): Temp Pulse Resp BP Pulse Ox 100.0 F H 92 H 37 H 96/67 L 93 L 02/15/17 18:00 02/15/17 20:20 02/14/17 22:51 02/15/17 20:00 02/15/17 20:20 Intake and Output: 02/15/17 02/16/17 18:59 06:59 Intake Total 1750 Output Total 800 Balance 950 - Medications Medications: Current Medications Arformoterol Tartrate (Brovana) 15 mcg IH [id number] [facility] Last Admin: 02/15/17 19:42 Dose: 15 mcg Budesonide (Pulmicort Respules) 0.5 mg IH [id number] [facility] Last Admin: 02/15/17 19:43 Dose: 0.5 mg Clonazepam (Klonopin) 1 mg PO BID [facility] PRN Reason: Protocol Last Admin: 02/14/17 10:00 Dose: Not Given Gabapentin (Neurontin) 800 mg PO QID [facility] Last Admin: 02/14/17 13:29 Dose: Not Given Heparin Sodium (Porcine) (Heparin) 5,000 units SC Q8 [facility] PRN Reason: Protocol Last Admin: 02/14/17 05:36 Dose: Not Given Hydrocortisone Sodium Succinate (Solu-Cortef) 50 mg IVP Q6H [facility] Last Admin: 02/15/17 20:24 Dose: 50 mg NOREPINEPHRINE BIT/0.9 % NACL (Levophed 4 Mg/ 250 Ml Ns Premixed) 4 mg in 250 mls @ 15 mls/hr IV .[id number] PRN; Protocol; 4 MCG/MIN PRN Reason: TITRATE PER MD ORDER Last Admin: 02/15/17 02:00 Dose: 20 mcg/min, 75 mls/hr Vasopressin 20 units/ Dextrose 101 mls @ 9.09 mls/hr IV .Q11H7M [facility]; 0.03 U/MIN PRN Reason: Protocol Last Admin: 02/15/17 06:31 Dose: 9.09 mls/hr Fentanyl Citrate (Fentanyl Citrate/Sodium Chloride 1 Mg/100 Ml) 1,000 mcg in 100 mls @ 7.5 mls/hr IV .[id number] PRN; Protocol; 75 MCG/HR PRN Reason: TITRATE PER MD ORDER Last Admin: 02/15/17 08:15 Dose: 150 mcg/hr, 15 mls/hr Sodium Bicarbonate 150 meq/ (Dextrose) 1,150 mls @ 150 mls/hr IV .Q7H40M [facility] Last Admin: 02/14/17 23:45 Dose: 150 mls/hr Midazolam 100 mg/100ml in NS (Midazolam 100 Mg/100ml In Ns) 100 mg in 100 mls @ 7 mls/hr IV .[id number] PRN; Protocol; 7 MG/HR PRN Reason: Agitation Last Admin: 02/15/17 08:16 Dose: 7 mg/hr, 7 mls/hr Epinephrine HCl 1 mg/ Sodium (Chloride) 51 mls @ 15.3 mls/hr IV .Q3H20M PRN; Protocol; 5 MCG/MIN PRN Reason: TITRATE PER MD ORDER Last Titration: 02/15/17 11:30 Dose: 0 mcg/min, 0 mls/hr Dobutamine HCl/Dextrose (Dobutamine/Dextrose 5% 500mg/250ml) 500 mg in 250 mls @ 3.844 mls/hr IV .Q24H PRN; Protocol; 2.5 MCG/KG/MIN PRN Reason: TITRATE PER PROTOCOL Last Admin: 02/14/17 14:47 Dose: 3.844 mls/hr Meropenem 1g/NS 100mL IVPB (Meropenem 1g/Ns 100ml Ivpb) 1 gm in 100 mls @ 100 mls/hr IVPB Q8 [facility] PRN Reason: Protocol Last Admin: 02/15/17 22:13 Dose: 100 mls/hr Midazolam HCl (Versed Inj) 2 mg IVP Q4H PRN PRN Reason: Agitation Last Admin: 02/14/17 09:40 Dose: 2 mg Ondansetron HCl (Zofran Inj) 4 mg IVP Q6 PRN PRN Reason: Nausea/Vomiting Last Admin: 02/13/17 16:26 Dose: 4 mg Oxycodone HCl (Oxycodone Immediate Release Tab) 15 mg PO Q4 PRN PRN Reason: Pain, moderate (4-7) Last Admin: 02/14/17 00:59 Dose: 15 mg Oxycodone HCl (Oxycontin Extended Release Tab) 60 mg PO Q12H PRN PRN Reason: Pain, moderate (4-7) Last Admin: 02/13/17 18:52 Dose: 60 mg Pantoprazole Sodium (Protonix Inj) 40 mg IVP DAILY [facility] Last Admin: 02/15/17 10:42 Dose: 40 mg - Labs Labs: 02/15/17 06:14 02/15/17 06:14 PT 19.1 Seconds (9.9-11.8) H 02/14/17 22:59 INR 1.77 (0.93-1.08) H 02/14/17 22:59 APTT 33.9 Seconds (23.7-30.8) H 02/14/17 22:59 Assessment and Plan - Assessment and Plan (Free Text) Assessment: Patient was seen and examined by me. I agree with assessment and plan as per resident's note. Patient will need chemoradiation therapy prior to the surgical intervention in order to decreased tumor size in order to enable surgery.
[2017-02-12] MEDS: Enoxaparin 30 mg Syringe SC SCH ×2 (10:04→10:14)
[2017-02-12] MEDS: Pantoprazole 40 mg EC Tab PO SCH (10:05)
[2017-02-12] MEDS: oxyCODONE 15 mg Immediate Release Tab PO PRN ×2 (10:10→22:02)
[2017-02-12] MEDS ORDERED: Bisacodyl 5mg EC Tab PO ONE (11:59)
[2017-02-12] MEDS ORDERED: Peg-Electrolyte Oral Soln 4L (Golytely) PO ONE (11:59)
--- NOTE | 2017-02-12 12:51 | CP.PCM.PN ---
<Jada Cohen - Last Filed: 02/12/17 13:19> Subjective - Date & Time of Evaluation Date of Evaluation: 02/12/17 Time of Evaluation: 12:48 - Subjective Subjective: HOSPITALISTS PROGRESS NOTE Pt is seen and examined at bedside. No acute events overnight. Patient is resting comfortably. She denies having any CP, SOB, abd pain, N/V/D/C. Pt received 2 units of PRBC yesterday and Hgb after the transfusion has been stable. Objective - Vital Signs/Intake and Output Vital Signs (last 24 hours): Temp Pulse Resp BP Pulse Ox 98.3 F 70 20 108/82 98 02/12/17 07:32 02/12/17 07:32 02/12/17 07:32 02/12/17 07:32 02/12/17 07:32 Intake and Output: 02/12/17 02/12/17 06:59 18:59 Intake Total 780 Balance 780 - Medications Medications: Current Medications Acetaminophen (Tylenol 325mg Tab) 650 mg PO Q6 PRN PRN Reason: Fever >100.4 F Last Admin: 02/12/17 10:12 Dose: 650 mg Arformoterol Tartrate (Brovana) 15 mcg IH [id number] [facility] Last Admin: 02/12/17 07:50 Dose: 15 mcg Budesonide (Pulmicort Respules) 0.5 mg IH [id number] [facility] Last Admin: 02/12/17 07:50 Dose: 0.5 mg Clonazepam (Klonopin) 1 mg PO BID [facility] PRN Reason: Protocol Last Admin: 02/12/17 10:05 Dose: 1 mg Enoxaparin Sodium (Lovenox) 30 mg SC DAILY [facility] PRN Reason: Protocol Last Admin: 02/12/17 10:14 Dose: Not Given Gabapentin (Neurontin) 800 mg PO QID [facility] Last Admin: 02/12/17 10:04 Dose: 800 mg Sodium Chloride (Sodium Chloride 0.9%) 1,000 mls @ 100 mls/hr IV .Q10H [facility] Last Admin: 02/12/17 09:59 Dose: 100 mls/hr Ondansetron HCl (Zofran Inj) 4 mg IVP Q6 PRN PRN Reason: Nausea/Vomiting Oxycodone HCl (Oxycodone Immediate Release Tab) 15 mg PO Q4 PRN PRN Reason: Pain, moderate (4-7) Last Admin: 02/12/17 10:10 Dose: 15 mg Oxycodone HCl (Oxycontin Extended Release Tab) 60 mg PO Q12H PRN PRN Reason: Pain, moderate (4-7) Pantoprazole Sodium (Protonix Ec Tab) 40 mg PO DAILY [facility] Last Admin: 02/12/17 10:05 Dose: 40 mg Quetiapine Fumarate (Seroquel) 200 mg PO BID [facility] Last Admin: 02/12/17 10:05 Dose: 200 mg - Labs Labs: 02/12/17 06:15 02/12/17 06:15 PT 14.7 Seconds (9.9-11.8) H 02/12/17 06:15 INR 1.36 (0.93-1.08) H 02/12/17 06:15 APTT 27.0 Seconds (23.7-30.8) 02/12/17 06:15 - Constitutional Appears: Non-toxic, No Acute Distress - Head Exam Head Exam: ATRAUMATIC - ENT Exam ENT Exam: Mucous Membranes Moist - Respiratory Exam Respiratory Exam: Clear to Ausculation Bilateral. absent: Accessory Muscle Use , Rales, Rhonchi, Wheezes, Respiratory Distress - Cardiovascular Exam Cardiovascular Exam: REGULAR RHYTHM, +S1, +S2. absent: Gallop, Rubs, Murmur - GI/Abdominal Exam GI & Abdominal Exam: Soft, Normal Bowel Sounds. absent: Distended, Firm, Guarding, Rigid, Tenderness - Extremities Exam Extremities Exam: Tenderness. absent: Pedal Edema - Neurological Exam Neurological Exam: Alert, Awake, Oriented x3 - Psychiatric Exam Psychiatric exam: Normal Affect, Normal Mood - Skin Skin Exam: Dry, Intact, Normal Color, Warm Assessment and Plan - Assessment and Plan (Free Text) Assessment: 51 year old female with past medical history of Crohns disease, asthma, bipolar disorder, polysubstance abuse and recent diagnoses of adenocarcinoma of the colon is admitted for LE pain likely 2/2 lymphadenopathy and symptomatic anemia. Hgb on admission is 7.7 and MCV is 84.4. 1. LE pain LE US was negative. Pain management with home medication: oxycodone 15 mg po q4h prn and oxycodone 60 mg po q12 prn 2. Normocytic anemia Patient transfused 2 units yesterday and Hgb stable this morning. Iron studies show high iron, low TIBC and high % saturation. High iron level may be due to recent transfusion GI is consulted. Patient refused EGD/colonoscopy yet again. Will wait for further recs 3. Inguinal lymphadenopathy likely 2/2 colon cancer: Will consult heme/onc for further recommendations. On last admission, heme/onc recommended following up outpatient for chemotherapy. Patient is noncompliant with follow up. CT of abd/pelvis showed worsening right hydronephrosis since previous exam, enlarged pelvic and inguinal lymph nodes, mass lesion and adjacent fluid collection at rectum. Awaiting GI recs about plan for colonoscopy 4. Adenocarcinoma of colon: will consult heme/onc. 5. Polysubstance abuse: UDS is positive for opiates, benzos, cocaine Prophylaxis: Protonix. SCDs. Will hold on starting lovenox until bleed is ruled out Case discussed with attending, Dr. Haley <Cristina Haley - Last Filed: 02/12/17 16:06> Objective - Vital Signs/Intake and Output Vital Signs (last 24 hours): Temp Pulse Resp BP Pulse Ox 98.3 F 70 20 108/82 98 02/12/17 07:32 02/12/17 07:32 02/12/17 07:32 02/12/17 07:32 02/12/17 07:32 Intake and Output: 02/12/17 02/12/17 06:59 18:59 Intake Total 780 720 Balance 780 720 - Medications Medications: Current Medications Acetaminophen (Tylenol 325mg Tab) 650 mg PO Q6 PRN PRN Reason: Fever >100.4 F Last Admin: 02/12/17 10:12 Dose: 650 mg Arformoterol Tartrate (Brovana) 15 mcg IH [id number] [facility] Last Admin: 02/12/17 07:50 Dose: 15 mcg Budesonide (Pulmicort Respules) 0.5 mg IH [id number] [facility] Last Admin: 02/12/17 07:50 Dose: 0.5 mg Clonazepam (Klonopin) 1 mg PO BID [facility] PRN Reason: Protocol Last Admin: 02/12/17 10:05 Dose: 1 mg Enoxaparin Sodium (Lovenox) 30 mg SC DAILY [facility] PRN Reason: Protocol Last Admin: 02/12/17 10:14 Dose: Not Given Gabapentin (Neurontin) 800 mg PO QID [facility] Last Admin: 02/12/17 14:01 Dose: 800 mg Sodium Chloride (Sodium Chloride 0.9%) 1,000 mls @ 100 mls/hr IV .Q10H [facility] Last Admin: 02/12/17 09:59 Dose: 100 mls/hr Ondansetron HCl (Zofran Inj) 4 mg IVP Q6 PRN PRN Reason: Nausea/Vomiting Oxycodone HCl (Oxycodone Immediate Release Tab) 15 mg PO Q4 PRN PRN Reason: Pain, moderate (4-7) Last Admin: 02/12/17 10:10 Dose: 15 mg Oxycodone HCl (Oxycontin Extended Release Tab) 60 mg PO Q12H PRN PRN Reason: Pain, moderate (4-7) Last Admin: 02/12/17 15:24 Dose: 60 mg Pantoprazole Sodium (Protonix Ec Tab) 40 mg PO DAILY [facility] Last Admin: 02/12/17 10:05 Dose: 40 mg Quetiapine Fumarate (Seroquel) 200 mg PO BID [facility] Last Admin: 02/12/17 10:05 Dose: 200 mg - Labs Labs: 02/12/17 06:15 02/12/17 06:15 PT 14.7 Seconds (9.9-11.8) H 02/12/17 06:15 INR 1.36 (0.93-1.08) H 02/12/17 06:15 APTT 27.0 Seconds (23.7-30.8) 02/12/17 06:15 Attending/Attestation - Attestation I have personally seen and examined this patient.: Yes I have fully participated in the care of the patient.: Yes I have reviewed all pertinent clinical information, including history, physical exam and plan: Yes Notes (Text): 02/12/17 16:00 attending note; Patient seen and examined with resident. Patient is a 51 year old female with history of Crohn's disease s/p right hemicolectomy, mucinous adenocarcinoma of colon, asthma, anxiety, depression, diverting colostomy, Bipolar disorder, cocaine abuse, Opiate dependence and non- compliance with follow up is admitted with abdominal discomfort and bilateral groin swelling. CT abdomen and pelvis showed worsening lymphadenopathy in retroperitoneum and groin. worsening right hydronephrosis. urology evaluation requested. Cocaine abuse; cessation is strongly advised. Urine drug screen is positive for cocaine, opiates and benzos. oncology evaluation with Dr. Lucas requested. patient needs staging and treatment. patient needs close follow-up as outpatient. Surgery evaluation appreciated. Anxiety depression; continue home meds. Anemia; got 2 unit PRBC transfusion. GI evaluation appreciated. patient agreed for colonoscopy. Plan for colonoscopy tomorrow. Prognosis is poor secondary to continuous drug abuse, noncompliance with follow up. upon discharge the patient will follow-up with PMD Dr. Chung. 02/12/17 16:05
[2017-02-12] MEDS: oxyCODONE 20 mg ER Tab (oxyCONTIN) PO PRN (15:24)
--- NOTE | 2017-02-12 16:42 | CP.PCM.PN ---
Subjective - Date & Time of Evaluation Date of Evaluation: 02/12/17 Time of Evaluation: 16:39 - Subjective Subjective: Patient has very poor veins,needs iv access Objective - Vital Signs/Intake and Output Vital Signs (last 24 hours): Temp Pulse Resp BP Pulse Ox 98.3 F 70 20 108/82 98 02/12/17 07:32 02/12/17 07:32 02/12/17 07:32 02/12/17 07:32 02/12/17 07:32 Intake and Output: 02/12/17 02/12/17 06:59 18:59 Intake Total 780 720 Balance 780 720 - Medications Medications: Current Medications Acetaminophen (Tylenol 325mg Tab) 650 mg PO Q6 PRN PRN Reason: Fever >100.4 F Last Admin: 02/12/17 10:12 Dose: 650 mg Arformoterol Tartrate (Brovana) 15 mcg IH [id number] [facility] Last Admin: 02/12/17 07:50 Dose: 15 mcg Budesonide (Pulmicort Respules) 0.5 mg IH [id number] [facility] Last Admin: 02/12/17 07:50 Dose: 0.5 mg Clonazepam (Klonopin) 1 mg PO BID [facility] PRN Reason: Protocol Last Admin: 02/12/17 10:05 Dose: 1 mg Enoxaparin Sodium (Lovenox) 30 mg SC DAILY [facility] PRN Reason: Protocol Last Admin: 02/12/17 10:14 Dose: Not Given Gabapentin (Neurontin) 800 mg PO QID [facility] Last Admin: 02/12/17 14:01 Dose: 800 mg Sodium Chloride (Sodium Chloride 0.9%) 1,000 mls @ 100 mls/hr IV .Q10H [facility] Last Admin: 02/12/17 09:59 Dose: 100 mls/hr Ondansetron HCl (Zofran Inj) 4 mg IVP Q6 PRN PRN Reason: Nausea/Vomiting Oxycodone HCl (Oxycodone Immediate Release Tab) 15 mg PO Q4 PRN PRN Reason: Pain, moderate (4-7) Last Admin: 02/12/17 10:10 Dose: 15 mg Oxycodone HCl (Oxycontin Extended Release Tab) 60 mg PO Q12H PRN PRN Reason: Pain, moderate (4-7) Last Admin: 02/12/17 15:24 Dose: 60 mg Pantoprazole Sodium (Protonix Ec Tab) 40 mg PO DAILY [facility] Last Admin: 02/12/17 10:05 Dose: 40 mg Quetiapine Fumarate (Seroquel) 200 mg PO BID [facility] Last Admin: 02/12/17 10:05 Dose: 200 mg - Labs Labs: 02/12/17 06:15 02/12/17 06:15 PT 14.7 Seconds (9.9-11.8) H 02/12/17 06:15 INR 1.36 (0.93-1.08) H 02/12/17 06:15 APTT 27.0 Seconds (23.7-30.8) 02/12/17 06:15 - Constitutional Appears: No Acute Distress Assessment and Plan - Assessment and Plan (Free Text) Assessment: Poor venous access. Plan: Hep lock inserted in the L wrist region. # 24 angiocath used.
[2017-02-12] MEDS: Sodium Chloride 0.9% 1,000 ML IV SCH (17:40)
--- NOTE | 2017-02-12 19:43 | US ---
HISTORY: Leg pain and swelling. Evaluate for DVT PHYSICIAN(S): Derrell Metcalf MD. TECHNIQUE: Duplex sonography and color-flow Doppler with graded compression were used to evaluate the deep venous systems of both lower extremities. FINDINGS: The visualized deep venous systems of both lower extremities are sonographically normal and compressible. Normal wave forms and augmentation are seen. There is no sonographic evidence for deep venous thrombosis in the visualized segments of both lower extremities. Multiple enlarged hypoechoic lymph nodes, measuring between 3 and 5 cm, are noted in both inguinal areas. IMPRESSION: No sonographic evidence for deep venous thrombosis in the visualized segments of both lower extremities. Enlarged inguinal lymph nodes measuring between 3-5 cm
--- NOTE | 2017-02-12 23:11 | CON ---
DATE: 02/12/2017 CHIEF COMPLAINT: Cancer of the colon. HISTORY OF PRESENT ILLNESS: The patient is a 51-year-old female admitted via the Emergency Room with recent diagnosis cancer of the colon, status post transfusion of 2 units of packed red blood cells f or an initial presenting hemoglobin 7.7. Her hemoglobin is now 8.6. She is sitting up in bed with h er analgesics helping her pain she is reporting. ALLERGIES: MORPHINE. MEDICATIONS: The patient's medications at this point include oxycodone, OxyContin, clonidine, gabape ntin, Protonix. PAST MEDICAL HISTORY: Crohn's disease, asthma, bipolar disorder, polysubstance abuse including cocai ne and recently diagnosed adenocarcinoma of the colon after treatment with colostomy after treatment for perirectal abscess with drainage. Pathology showed mucinous adenocarcinoma dated 12/08/2016. Sh scout had a colostomy placed with partial omentectomy that day by Dr. Marti. The patient also suffers from bipolar disorder. FAMILY HISTORY AND SOCIAL HISTORY: Positive smoker, positive ETOH use with illicit drug use. Otherwise, noncontributory. REVIEW OF SYSTEMS: Essentially negative to questioning except as above. PHYSICAL EXAMINATION: VITAL SIGNS: Temperature 97.6, pulse 74, respirations 20, blood pressure 103/71, pulse ox 96%. HEENT: Unremarkable. NECK: Supple. HEART: Regular rate. LUNGS: Clear. ABDOMEN: Soft, positive viable colostomy. EXTREMITIES: +1 edema of the left lower extremity. NEUROLOGIC: Awake, alert and oriented. SKIN: Otherwise warm, dry and clear. LABORATORY DATA: The patient's labs were done as listed above with a white blood cell count of 8.2, hemoglobin of 8.6 after transfusion of 2 units of packed cells for hemoglobin 7.7, hematocrit 25.8, p latelet count of 53,000. Her INR was 1.36. Her chem panel was within normal range except for an iro n saturation of 90%. Urinalysis was trace of blood. Urine screen was positive for opiates, benzodia zepines and cocaine. The patient had a CT scan of the abdomen and pelvis done yesterday. It was read as interval worsenin g of right hydronephrosis since the previous exam finding, likely with compression or partial obstruc tion of the right ureter. With interval worsening of reticulonodular opacities in lower lungs since previous exam. She had an ultrasound of her lower extremities showing no evidence of DVT and large inguinal lymph no charanjit measuring 3.5 cm. The patient had an EKG done. It was read as normal sinus rhythm, T-wave abnormality, consider anteri or ischemia, abnormal EKG. ASSESSMENT: Symptomatic anemia, probable stage IV cancer of the colon, to be determined, viable colostomy, edema of the left lower extremity, anemia, thrombocytopenia, substance abuse including cocaine, intractable pain of cancer. PLAN: The patient is to continue present medical regimen as per attending and consultants with a gas trointestinal workup as per . We will repeat her tumor markers including CEA, CA 19-9 , along with her labs in the morning with further workup as indicated as per Dr. Lucas. Prognosis for this patient is guarded. Norm Lees MD cc: [phone] TT: 02/12/2017 23:11:06 Confirmation # [id number] Dictation # [id number] mn
[2017-02-13] MEDS: oxyCODONE 15 mg Immediate Release Tab PO PRN ×4 (03:07→20:50)
[2017-02-13] MEDS: Sodium Chloride 0.9% 1,000 ML IV SCH (03:33)
[2017-02-13 06:53] LABS: ADD MANUAL DIFF? NO
[2017-02-13] MEDS: oxyCODONE 20 mg ER Tab (oxyCONTIN) PO PRN ×2 (07:00→18:52)
[2017-02-13 07:14] LABS: INR 1.46 (0.93-1.08); PARTIAL THROMBOPLASTIN TIME 29.7 Seconds (23.7-30.8)
[2017-02-13] MEDS: Arformoterol 15 mcg/2 ml Inh Sol IH SCH ×2 (07:22→19:56)
[2017-02-13] MEDS: Budesonide 0.5 mg/2 ml Inhal Susp UD IH SCH ×2 (07:22→19:56)
[2017-02-13 07:26] LABS: BASO # 0.16 K/mm3 (0.0-2.0); BASO % 2.2 % (0.0-3.0); EOS # 0.7 (0.0-0.7); EOS % 9.8 % (1.5-5.0); GRAN % 47.4 % (50.0-68.0); HEMATOCRIT 24.7 % (36.0-48.0); LYMPH # 2.4 (1.2-3.4); LYMPH % 32.9 % (22.0-35.0); MEAN CELL VOLUME 85.2 fL (80.0-105.0); MEAN CORPUSCULAR HEMOGLOBIN 28.6 pg (25.0-35.0); MEAN CORPUSCULAR HGB CONC 33.6 g/dl (31.0-37.0); MONO # 0.6 (0.1-0.6); MONO % 7.7 % (1.0-6.0); WHITE BLOOD COUNT 7.2 10^3/ul (4.5-11.0)
[2017-02-13 07:38] LABS: ALB/GLOB RATIO 0.8 (1.1-1.8); CALCIUM 10.2 mg/dL (8.4-10.5); TOTAL PROTEIN 6.3 g/dL (5.8-8.3)
--- NOTE | 2017-02-13 08:26 | CP.PCM.PN ---
<Jada Cohen - Last Filed: 02/13/17 10:52> Subjective - Date & Time of Evaluation Date of Evaluation: 02/13/17 Time of Evaluation: 08:28 - Subjective Subjective: HOSPITALISTS PROGRESS NOTE Pt is seen and examined at bedside. No acute events overnight. Patient has been drinking GoLytly for colonscopy that is scheduled for this morning at 10: 30 am. Patient states that she has had to empty her colostomy bag many times over night. She is still complaining of LE pain B/L. She denies having any CP , SOB, abd pain, N/V, F/C. Objective - Vital Signs/Intake and Output Vital Signs (last 24 hours): Temp Pulse Resp BP Pulse Ox 98.7 F 79 16 107/74 95 02/13/17 07:30 02/13/17 07:30 02/13/17 07:30 02/13/17 07:30 02/13/17 07:30 Intake and Output: 02/13/17 02/13/17 06:59 18:59 Intake Total 480 Balance 480 - Medications Medications: Current Medications Acetaminophen (Tylenol 325mg Tab) 650 mg PO Q6 PRN PRN Reason: Fever >100.4 F Last Admin: 02/13/17 07:07 Dose: 650 mg Arformoterol Tartrate (Brovana) 15 mcg IH [id number] [facility] Last Admin: 02/13/17 07:22 Dose: 15 mcg Budesonide (Pulmicort Respules) 0.5 mg IH [id number] [facility] Last Admin: 02/13/17 07:22 Dose: 0.5 mg Clonazepam (Klonopin) 1 mg PO BID [facility] PRN Reason: Protocol Last Admin: 02/12/17 17:40 Dose: 1 mg Enoxaparin Sodium (Lovenox) 30 mg SC DAILY [facility] PRN Reason: Protocol Last Admin: 02/12/17 10:14 Dose: Not Given Gabapentin (Neurontin) 800 mg PO QID [facility] Last Admin: 02/12/17 21:55 Dose: 800 mg Sodium Chloride (Sodium Chloride 0.9%) 1,000 mls @ 75 mls/hr IV .[id number] [facility] Last Admin: 02/13/17 03:33 Dose: 75 mls/hr Ondansetron HCl (Zofran Inj) 4 mg IVP Q6 PRN PRN Reason: Nausea/Vomiting Oxycodone HCl (Oxycodone Immediate Release Tab) 15 mg PO Q4 PRN PRN Reason: Pain, moderate (4-7) Last Admin: 02/13/17 03:07 Dose: 15 mg Oxycodone HCl (Oxycontin Extended Release Tab) 60 mg PO Q12H PRN PRN Reason: Pain, moderate (4-7) Last Admin: 02/13/17 07:00 Dose: 60 mg Pantoprazole Sodium (Protonix Ec Tab) 40 mg PO DAILY [facility] Last Admin: 02/12/17 10:05 Dose: 40 mg Quetiapine Fumarate (Seroquel) 200 mg PO BID [facility] Last Admin: 02/12/17 17:50 Dose: Not Given - Labs Labs: 02/13/17 06:30 02/13/17 06:30 PT 15.8 Seconds (9.9-11.8) H 02/13/17 06:30 INR 1.46 (0.93-1.08) H 02/13/17 06:30 APTT 29.7 Seconds (23.7-30.8) 02/13/17 06:30 - Constitutional Appears: Non-toxic, No Acute Distress - Head Exam Head Exam: ATRAUMATIC - Eye Exam Eye Exam: EOMI - ENT Exam ENT Exam: Mucous Membranes Moist - Respiratory Exam Respiratory Exam: Clear to Ausculation Bilateral. absent: Accessory Muscle Use , Rales, Rhonchi, Wheezes, Respiratory Distress - Cardiovascular Exam Cardiovascular Exam: REGULAR RHYTHM, +S1, +S2. absent: Gallop, Rubs, Murmur - GI/Abdominal Exam GI & Abdominal Exam: Soft, Normal Bowel Sounds. absent: Distended, Firm, Guarding, Rigid, Tenderness Additional comments: colostomy bag filled with stool - Extremities Exam Extremities Exam: absent: Pedal Edema, Tenderness - Neurological Exam Neurological Exam: Alert, Awake, Oriented x3 - Psychiatric Exam Psychiatric exam: Normal Affect, Normal Mood - Skin Skin Exam: Dry, Intact, Normal Color, Warm Assessment and Plan - Assessment and Plan (Free Text) Assessment: 51 year old female with past medical history of Crohns disease, asthma, bipolar disorder, polysubstance abuse and recent diagnoses of adenocarcinoma of the colon is admitted for LE pain likely 2/2 lymphadenopathy and symptomatic anemia. Hgb on admission is 7.7 and MCV is 84.4. CT of abd/pelvis showed worsening right hydronephrosis since previous exam, enlarged pelvic and inguinal lymph nodes, mass lesion and adjacent fluid collection at rectum. 1. LE pain LE US was negative. Pain management with home medication: oxycodone 15 mg po q4h prn and oxycodone 60 mg po q12 prn 2. Normocytic anemia Iron studies show high iron, low TIBC and high % saturation. High iron level may be due to recent transfusion Pt scheduled for colonoscopy today 3. Inguinal lymphadenopathy likely 2/2 colon cancer: Will consult heme/onc for further recommendations. On last admission, heme/onc recommended following up outpatient for chemotherapy. Patient is noncompliant with follow up. 4. Adenocarcinoma of colon: will consult heme/onc. Patient scheduled for colonoscopy today Will consider getting CT chest to determine stage of cancer 5. Polysubstance abuse: UDS is positive for opiates, benzos, cocaine 6. Thrombocytopenia Platelets are 47. will order a manual platelet count. Stopped lovenox Prophylaxis: Protonix. SCDs. Case discussed with attending, Dr. Haley <Cristina Haley - Last Filed: 02/14/17 14:49> Objective - Vital Signs/Intake and Output Vital Signs (last 24 hours): Temp Pulse Resp BP Pulse Ox 98.6 F 93 H 22 87/70 L 98 02/14/17 04:00 02/14/17 13:40 02/14/17 06:40 02/14/17 13:40 02/14/17 13:40 Intake and Output: 02/14/17 02/14/17 06:59 18:59 Intake Total 4130 220 Output Total 150 Balance 3980 220 - Medications Medications: Current Medications Arformoterol Tartrate (Brovana) 15 mcg IH [id number] [facility] Last Admin: 02/14/17 08:15 Dose: Not Given Budesonide (Pulmicort Respules) 0.5 mg IH [id number] [facility] Last Admin: 02/14/17 08:15 Dose: Not Given Clonazepam (Klonopin) 1 mg PO BID [facility] PRN Reason: Protocol Last Admin: 02/14/17 10:00 Dose: Not Given Gabapentin (Neurontin) 800 mg PO QID [facility] Last Admin: 02/14/17 13:29 Dose: Not Given Heparin Sodium (Porcine) (Heparin) 5,000 units SC Q8 [facility] PRN Reason: Protocol Last Admin: 02/14/17 05:36 Dose: Not Given Hydrocortisone Sodium Succinate (Solu-Cortef) 50 mg IVP Q6H [facility] Last Admin: 02/14/17 13:31 Dose: 50 mg Sodium Chloride (Sodium Chloride 0.9%) 1,000 mls @ 75 mls/hr IV .[id number] [facility] Last Admin: 02/13/17 03:33 Dose: 75 mls/hr Vancomycin HCl (Vancomycin 500mg In Ns) 500 mg in 100 mls @ 200 mls/hr IVPB Q12 [facility] PRN Reason: Protocol Last Admin: 02/14/17 11:21 Dose: 200 mls/hr Sodium Chloride (Sodium Chloride 0.9%) 1,000 mls @ 125 mls/hr IV .Q8H [facility] Last Admin: 02/14/17 02:00 Dose: 125 mls/hr Acetaminophen (Ofirmev) 1,000 mg in 100 mls @ 400 mls/hr IVPB Q6H PRN PRN Reason: Temperature Stop: 02/16/17 02:07 Last Admin: 02/14/17 02:20 Dose: 400 mls/hr NOREPINEPHRINE BIT/0.9 % NACL (Levophed 4 Mg/ 250 Ml Ns Premixed) 4 mg in 250 mls @ 15 mls/hr IV .[id number] PRN; Protocol; 4 MCG/MIN PRN Reason: TITRATE PER MD ORDER Last Titration: 02/14/17 13:29 Dose: 20 mcg/min, 75 mls/hr Vasopressin 20 units/ Dextrose 101 mls @ 9.09 mls/hr IV .[id number] [facility]; 0.03 U/MIN PRN Reason: Protocol Last Admin: 02/14/17 09:28 Dose: 9.09 mls/hr Fentanyl Citrate (Fentanyl Citrate/Sodium Chloride 1 Mg/100 Ml) 1,000 mcg in 100 mls @ 7.5 mls/hr IV .[id number] PRN; Protocol; 75 MCG/HR PRN Reason: TITRATE PER MD ORDER Last Admin: 02/14/17 13:43 Dose: 75 mcg/hr, 7.5 mls/hr Sodium Bicarbonate 150 meq/ (Dextrose) 1,150 mls @ 150 mls/hr IV .[id number] [facility] Last Admin: 02/14/17 13:25 Dose: 150 mls/hr Midazolam 100 mg/100ml in NS (Midazolam 100 Mg/100ml In Ns) 100 mg in 100 mls @ 7 mls/hr IV .[id number] PRN; Protocol; 7 MG/HR PRN Reason: Agitation Last Admin: 02/14/17 12:51 Dose: 7 mg/hr, 7 mls/hr Epinephrine HCl 1 mg/ Sodium (Chloride) 51 mls @ 3.06 mls/hr IV .[id number] PRN; Protocol; 1 MCG/MIN PRN Reason: TITRATE PER MD ORDER Last Titration: 02/14/17 13:28 Dose: 5 mcg/min, 15.3 mls/hr Dobutamine HCl/Dextrose (Dobutamine/Dextrose 5% 500mg/250ml) 500 mg in 250 mls @ 3.844 mls/hr IV .Q24H PRN; Protocol; 2.5 MCG/KG/MIN PRN Reason: TITRATE PER PROTOCOL Meropenem 1g/NS 100mL IVPB (Meropenem 1g/Ns 100ml Ivpb) 1 gm in 100 mls @ 100 mls/hr IVPB Q8 [facility] PRN Reason: Protocol Stop: 02/14/17 22:59 Midazolam HCl (Versed Inj) 2 mg IVP Q4H PRN PRN Reason: Agitation Last Admin: 02/14/17 09:40 Dose: 2 mg Ondansetron HCl (Zofran Inj) 4 mg IVP Q6 PRN PRN Reason: Nausea/Vomiting Last Admin: 02/13/17 16:26 Dose: 4 mg Oxycodone HCl (Oxycodone Immediate Release Tab) 15 mg PO Q4 PRN PRN Reason: Pain, moderate (4-7) Last Admin: 02/14/17 00:59 Dose: 15 mg Oxycodone HCl (Oxycontin Extended Release Tab) 60 mg PO Q12H PRN PRN Reason: Pain, moderate (4-7) Last Admin: 02/13/17 18:52 Dose: 60 mg Pantoprazole Sodium (Protonix Ec Tab) 40 mg PO DAILY [facility] Last Admin: 02/13/17 09:43 Dose: 40 mg Pantoprazole Sodium (Protonix Inj) 40 mg IVP DAILY [facility] Last Admin: 02/14/17 11:55 Dose: 40 mg - Labs Labs: 02/14/17 09:04 02/14/17 09:04 PT 22.5 Seconds (9.9-11.8) H 02/14/17 09:04 INR 2.08 (0.93-1.08) H 02/14/17 09:04 APTT 45.0 Seconds (23.7-30.8) H 02/14/17 09:04 Attending/Attestation - Attestation I have personally seen and examined this patient.: Yes I have fully participated in the care of the patient.: Yes I have reviewed all pertinent clinical information, including history, physical exam and plan: Yes Notes (Text): 02/14/17 14:44 attending note; Patient seen and examined with resident and Surgery team this morning. currently waiting for colonoscopy. Patient is a 51 year old female with history of Crohn's disease s/p right hemicolectomy, mucinous adenocarcinoma of colon, asthma, anxiety, depression, diverting colostomy, Bipolar disorder, cocaine abuse, Opiate dependence and non- compliance with follow up is admitted with abdominal discomfort and bilateral groin swelling. CT abdomen and pelvis showed worsening lymphadenopathy in retroperitoneum and groin. worsening right hydronephrosis. urology evaluation requested. Cocaine abuse; cessation is strongly advised. Urine drug screen is positive for cocaine, opiates and benzos. oncology evaluation with Dr. Lucas appreciated. patient needs staging and treatment. patient needs close follow-up as outpatient. MRI recommended. Thrombocytopenia; Rule out HIT versus DIC. will follow-up with oncology closely. Currently no active Bleeding noted. Surgery evaluation appreciated. Anxiety depression; continue home meds. Anemia; got 2 unit PRBC transfusion. Prognosis is poor secondary to continuous drug abuse, noncompliance with follow up. upon discharge the patient will follow-up with PMD Dr. Chung. addendum; Case discussed with GI Dr. Nunez in detail. prominent rectal mass found. Biopsy was not done. Not able to complete colonoscopy due to stricture. Mild oozing present. case discussed with surgery in detail. Plan for lymph node biopsy on Thursday. Case discussed with oncology Dr. Lucas in detail. Patient needs staging now. MRI ordered. HIV, hepatitis C requested. Oncology will decide About treatment options after staging. Patient did not follow-up with oncology as outpatient as recommended during previous admissions. Continuous drug use is also a significant issue Preventing follow-up with consultants as outpatient. Patient also has a Crohn's disease with multiple strictures. Monitor patient closely.
[2017-02-13 09:15] LABS: PLATELET COUNT 47 10^3/uL (120.0-450.0)
--- NOTE | 2017-02-13 09:22 | CP.PCM.PN ---
<Roly Marques - Last Filed: 02/13/17 09:19> Subjective - Date & Time of Evaluation Date of Evaluation: 02/13/17 Time of Evaluation: 07:00 - Subjective Subjective: General Surgery Pt S&E, NAEO. Pt C/O excessive ostomy output and device leakage 2/2 bowel prep. NPO for colonoscopy. Objective - Vital Signs/Intake and Output Vital Signs (last 24 hours): Temp Pulse Resp BP Pulse Ox 98.7 F 79 16 107/74 95 02/13/17 07:30 02/13/17 07:30 02/13/17 07:30 02/13/17 07:30 02/13/17 07:30 Intake and Output: 02/13/17 02/13/17 06:59 18:59 Intake Total 2880 Balance 2880 - Medications Medications: Current Medications Acetaminophen (Tylenol 325mg Tab) 650 mg PO Q6 PRN PRN Reason: Fever >100.4 F Last Admin: 02/13/17 07:07 Dose: 650 mg Arformoterol Tartrate (Brovana) 15 mcg IH [id number] [facility] Last Admin: 02/13/17 07:22 Dose: 15 mcg Budesonide (Pulmicort Respules) 0.5 mg IH [id number] [facility] Last Admin: 02/13/17 07:22 Dose: 0.5 mg Clonazepam (Klonopin) 1 mg PO BID [facility] PRN Reason: Protocol Last Admin: 02/12/17 17:40 Dose: 1 mg Gabapentin (Neurontin) 800 mg PO QID [facility] Last Admin: 02/12/17 21:55 Dose: 800 mg Sodium Chloride (Sodium Chloride 0.9%) 1,000 mls @ 75 mls/hr IV .[id number] [facility] Last Admin: 02/13/17 03:33 Dose: 75 mls/hr Ondansetron HCl (Zofran Inj) 4 mg IVP Q6 PRN PRN Reason: Nausea/Vomiting Oxycodone HCl (Oxycodone Immediate Release Tab) 15 mg PO Q4 PRN PRN Reason: Pain, moderate (4-7) Last Admin: 02/13/17 03:07 Dose: 15 mg Oxycodone HCl (Oxycontin Extended Release Tab) 60 mg PO Q12H PRN PRN Reason: Pain, moderate (4-7) Last Admin: 02/13/17 07:00 Dose: 60 mg Pantoprazole Sodium (Protonix Ec Tab) 40 mg PO DAILY [facility] Last Admin: 02/12/17 10:05 Dose: 40 mg Quetiapine Fumarate (Seroquel) 200 mg PO BID [facility] Last Admin: 02/12/17 17:50 Dose: Not Given - Labs Labs: 02/13/17 06:30 02/13/17 06:30 PT 15.8 Seconds (9.9-11.8) H 02/13/17 06:30 INR 1.46 (0.93-1.08) H 02/13/17 06:30 APTT 29.7 Seconds (23.7-30.8) 02/13/17 06:30 - Constitutional Appears: Non-toxic, No Acute Distress - Head Exam Head Exam: ATRAUMATIC, NORMOCEPHALIC - Eye Exam Eye Exam: EOMI, Scleral icterus - Respiratory Exam Respiratory Exam: NORMAL BREATHING PATTERN. absent: Respiratory Distress - GI/Abdominal Exam GI & Abdominal Exam: Soft. absent: Distended, Tenderness Additional comments: ostomy functioning, appliance reinforced 2/2 leakage - Neurological Exam Neurological Exam: Alert, Awake, Oriented x3 - Skin Skin Exam: Dry, Warm Assessment and Plan - Assessment and Plan (Free Text) Assessment: 51F with rectal mucinous adenocarcinoma Plan: Colonoscopy today PICC placement planned F/U with Heme/Onc On 2nd visit [address]. Marti, discussed need for her participation in her care. Pt verbalized understanding. D/W Primary team D/W Dr. Kaia Marques PGY3 <Dheeraj Marti - Last Filed: 02/15/17 23:12> Objective - Vital Signs/Intake and Output Vital Signs (last 24 hours): Temp Pulse Resp BP Pulse Ox 100.0 F H 92 H 37 H 96/67 L 93 L 02/15/17 18:00 02/15/17 20:20 02/14/17 22:51 02/15/17 20:00 02/15/17 20:20 Intake and Output: 02/15/17 02/16/17 18:59 06:59 Intake Total 1750 Output Total 800 Balance 950 - Medications Medications: Current Medications Arformoterol Tartrate (Brovana) 15 mcg IH [id number] [facility] Last Admin: 02/15/17 19:42 Dose: 15 mcg Budesonide (Pulmicort Respules) 0.5 mg IH [id number] [facility] Last Admin: 02/15/17 19:43 Dose: 0.5 mg Clonazepam (Klonopin) 1 mg PO BID [facility] PRN Reason: Protocol Last Admin: 02/14/17 10:00 Dose: Not Given Gabapentin (Neurontin) 800 mg PO QID [facility] Last Admin: 02/14/17 13:29 Dose: Not Given Heparin Sodium (Porcine) (Heparin) 5,000 units SC Q8 [facility] PRN Reason: Protocol Last Admin: 02/14/17 05:36 Dose: Not Given Hydrocortisone Sodium Succinate (Solu-Cortef) 50 mg IVP Q6H [facility] Last Admin: 02/15/17 20:24 Dose: 50 mg NOREPINEPHRINE BIT/0.9 % NACL (Levophed 4 Mg/ 250 Ml Ns Premixed) 4 mg in 250 mls @ 15 mls/hr IV .[id number] PRN; Protocol; 4 MCG/MIN PRN Reason: TITRATE PER MD ORDER Last Admin: 02/15/17 02:00 Dose: 20 mcg/min, 75 mls/hr Vasopressin 20 units/ Dextrose 101 mls @ 9.09 mls/hr IV .Q11H7M [facility]; 0.03 U/MIN PRN Reason: Protocol Last Admin: 02/15/17 06:31 Dose: 9.09 mls/hr Fentanyl Citrate (Fentanyl Citrate/Sodium Chloride 1 Mg/100 Ml) 1,000 mcg in 100 mls @ 7.5 mls/hr IV .[id number] PRN; Protocol; 75 MCG/HR PRN Reason: TITRATE PER MD ORDER Last Admin: 02/15/17 08:15 Dose: 150 mcg/hr, 15 mls/hr Sodium Bicarbonate 150 meq/ (Dextrose) 1,150 mls @ 150 mls/hr IV .Q7H40M [facility] Last Admin: 02/14/17 23:45 Dose: 150 mls/hr Midazolam 100 mg/100ml in NS (Midazolam 100 Mg/100ml In Ns) 100 mg in 100 mls @ 7 mls/hr IV .[id number] PRN; Protocol; 7 MG/HR PRN Reason: Agitation Last Admin: 02/15/17 08:16 Dose: 7 mg/hr, 7 mls/hr Epinephrine HCl 1 mg/ Sodium (Chloride) 51 mls @ 15.3 mls/hr IV .Q3H20M PRN; Protocol; 5 MCG/MIN PRN Reason: TITRATE PER MD ORDER Last Titration: 02/15/17 11:30 Dose: 0 mcg/min, 0 mls/hr Dobutamine HCl/Dextrose (Dobutamine/Dextrose 5% 500mg/250ml) 500 mg in 250 mls @ 3.844 mls/hr IV .Q24H PRN; Protocol; 2.5 MCG/KG/MIN PRN Reason: TITRATE PER PROTOCOL Last Admin: 02/14/17 14:47 Dose: 3.844 mls/hr Meropenem 1g/NS 100mL IVPB (Meropenem 1g/Ns 100ml Ivpb) 1 gm in 100 mls @ 100 mls/hr IVPB Q8 [facility] PRN Reason: Protocol Last Admin: 02/15/17 22:13 Dose: 100 mls/hr Midazolam HCl (Versed Inj) 2 mg IVP Q4H PRN PRN Reason: Agitation Last Admin: 02/14/17 09:40 Dose: 2 mg Ondansetron HCl (Zofran Inj) 4 mg IVP Q6 PRN PRN Reason: Nausea/Vomiting Last Admin: 02/13/17 16:26 Dose: 4 mg Oxycodone HCl (Oxycodone Immediate Release Tab) 15 mg PO Q4 PRN PRN Reason: Pain, moderate (4-7) Last Admin: 02/14/17 00:59 Dose: 15 mg Oxycodone HCl (Oxycontin Extended Release Tab) 60 mg PO Q12H PRN PRN Reason: Pain, moderate (4-7) Last Admin: 02/13/17 18:52 Dose: 60 mg Pantoprazole Sodium (Protonix Inj) 40 mg IVP DAILY [facility] Last Admin: 02/15/17 10:42 Dose: 40 mg - Labs Labs: 02/15/17 06:14 02/15/17 06:14 PT 19.1 Seconds (9.9-11.8) H 02/14/17 22:59 INR 1.77 (0.93-1.08) H 02/14/17 22:59 APTT 33.9 Seconds (23.7-30.8) H 02/14/17 22:59 Assessment and Plan - Assessment and Plan (Free Text) Assessment: Patient was seen and examined by me. I agree with assessment and plan as per resident's note.
[2017-02-13] MEDS: Pantoprazole 40 mg EC Tab PO SCH (09:43)
[2017-02-13] MEDS ORDERED: Propofol 10 mg/ml Inj (20 ML) ONE (11:02)
--- NOTE | 2017-02-13 18:09 | PCM.URO ---
Urology Progress Note - Objective Lab Results Last 24 Hours: Laboratory Results - last 24 hr 02/13/17 02/13/17 02/13/17 06:30 06:30 06:30 WBC 7.2 RBC 2.90 L Hgb 8.3 L Hct 24.7 L MCV 85.2 MCH 28.6 MCHC 33.6 RDW 18.0 H Plt Count 47 L* Manual Plt Count Gran % 47.4 L Lymph % (Auto) 32.9 Zapata % (Auto) 7.7 H Eos % (Auto) 9.8 H Baso % (Auto) 2.2 Gran # 3.40 Lymph # 2.4 Zapata # 0.6 Eos # 0.7 Baso # 0.16 PT 15.8 H INR 1.46 H APTT 29.7 Sodium 137 Potassium 4.0 Chloride 106 Carbon Dioxide 23 Anion Gap 12 BUN 15 Creatinine 1.4 Est GFR ( Amer) 48 Est GFR (Non-Af Amer) 40 Random Glucose 77 Calcium 10.2 Total Bilirubin 1.0 AST 36 ALT 19 Alkaline Phosphatase 100 Total Protein 6.3 Albumin 2.8 L Globulin 3.4 Albumin/Globulin Ratio 0.8 L Carcinoembryonic Ag CA 19-9 Antigen 413 H D Hepatitis A IgM Ab Hep Bs Antigen Hep B Core IgM Ab Hepatitis C Antibody 02/13/17 02/13/17 02/13/17 06:30 08:00 08:30 WBC RBC Hgb Hct MCV MCH MCHC RDW Plt Count Manual Plt Count 65 L* Gran % Lymph % (Auto) Zapata % (Auto) Eos % (Auto) Baso % (Auto) Gran # Lymph # Zapata # Eos # Baso # PT INR APTT Sodium Potassium Chloride Carbon Dioxide Anion Gap BUN Creatinine Est GFR ( Amer) Est GFR (Non-Af Amer) Random Glucose Calcium Total Bilirubin AST ALT Alkaline Phosphatase Total Protein Albumin Globulin Albumin/Globulin Ratio Carcinoembryonic Ag 395.0 H CA 19-9 Antigen Hepatitis A IgM Ab Negative Hep Bs Antigen Negative Hep B Core IgM Ab Negative Hepatitis C Antibody Negative Intake & Output: Intake & Output 02/12/17 02/13/17 02/13/17 18:59 06:59 18:59 Intake Total 720 2880 Balance 720 2880 Intake: IV 2400 Left Wrist 2400 Oral 720 480 Other: # Voids Urine, Voided 3 2 2 # Bowel Movements 0 4 Vital Signs: Vital Signs - 24 hr 02/13/17 02/13/17 02/13/17 07:30 11:01 11:27 Temperature 98.7 F 97.6 F 97.6 F Pulse Rate 79 84 75 Respiratory 16 14 18 Rate Blood Pressure 107/74 113/70 125/73 O2 Sat by Pulse 95 95 100 Oximetry 02/13/17 02/13/17 02/13/17 11:42 11:57 12:12 Temperature 97.6 F 97.6 F 97.6 F Pulse Rate 76 80 84 Respiratory 14 14 14 Rate Blood Pressure 119/66 113/70 113/70 O2 Sat by Pulse 94 L 93 L 95 Oximetry
--- NOTE | 2017-02-13 18:47 | PN ---
DATE: 02/13/2017 The patient is in room 560, bed 1. The patient is examined at the bedside. The patient had an attem pt a full colonoscopy earlier today. I have spoken with Dr. Haley. The colonoscopy revealed a v ney tight lesion at the rectosigmoid, scope could not be passed because of the stenosis and because o f the significant bleeding, no biopsy was done as well. The patient has a prior diagnosis of mucin-p roducing adenocarcinoma when the patient had evaluation from Dr. Marti for a perirectal perinea l abscess management. The patient has a significant history of Crohn's disease for several years and she also has a history of substance abuse and her urine on this admission tested for opiates and david cotics. Currently, subjectively the patient is complaining of significant pain in the hip and buttoc k area for which she is on narcotics. The patient is requesting for IV Dilaudid. I reviewed the [facility] rt. The patient had come to the Emergency Room with a diagnosis of the colon or rectal cancer. The patient received 2 units of blood. She had presented with a hemoglobin of 7.7, it is up to 8.6. She is on analgesics. The patient says SHE IS ALLERGIC TO MORPHINE. MEDICATIONS: Include oxycodone, OxyContin, clonidine, gabapentin, Protonix. PAST MEDICAL HISTORY: Significant for Crohn's disease, asthma, bipolar disorder, polysubstance abuse including cocaine and recently diagnosed adenocarcinoma with multiple perineal perirectal abscesses for which she had a diverting colostomy for the perirectal abscesses. The pathology had shown uses m ucinous adenocarcinoma when one of these abscesses was drained, this was on 12/08/2016. The patient h as a colostomy placed with a partial omentectomy on that day by Dr. Marti. PHYSICAL EXAMINATION: GENERAL: Reveals the patient to be alert, oriented, complaining of significant pain. VITAL SIGNS: T-max is 98.4, pulse is 70, respirations 20, blood pressure is 103/71, pulse ox is 96% on room air. HEENT: Head is normocephalic, atraumatic. Temporal muscle wasting is noted. No oropharyngeal lesio ns are noted. NECK: Supple. There is no adenopathy. HEART: Reveals S1 and S2 to be normal. No gallop or murmur is heard. ABDOMEN: Soft with viable colostomy. EXTREMITIES: The patient has 1+ edema in the left lower extremity. NEUROLOGIC: Reveals no focal deficits. The patient has normal affect. SKIN: Otherwise, warm, dry and moist. I reviewed the results of the abdominal CT scan from this admission and prior admission. Current adm ission CAT scan shows in the lower thorax interval worsening of reticular nodular densities of lower lung darling, seen in the previous exam. This is an issue whether we should get a CAT scan of the [facility] st for this admission as well to see if there is anything going on in the lung. The patient on the C AT scan was noted to have hepatomegaly, gallbladder and bile ducts reveal no evidence of acute cholec ystitis, common bile duct is mildly dilated, more importantly is the interval worsening of right hydr onephrosis since the prior exam. Current exam studies demonstrate moderate to mild severe right hydr onephrosis and moderate left hydronephrosis without any evidence of obstructing stone. Bladder is pa rtially distended and displaced anteriorly, a mildly enlarged uterus and a complex mass and collectio n of the rectum, uterus is slightly displaced anteriorly by rectal mass and the collection appears mi ldly enlarged. The patient is status post left-sided colostomy. There is no evidence of grade obstr uction, dilated loops of the right colostomy is noted. No evidence of high grade obstruction is note d. There re mild dilated loops of bowel in the right mid abdomen. There is a mass lesion adjacent f luid collection of the rectum. There is no evidence of ascites or free air in the diaphragm. Has la rge conglomerate retroperitoneal lymph nodes with large pelvic and bilateral inguinal nodes also seen on the CAT scan. MEDICATIONS: The patient's medications were reviewed. She is on Brovana 15 mcg inhaled q. 12 hours , Klonopin 1 mg b.i.d., Neurontin 800 mg q.i.d., oxycodone 15 mg q. 4 h, oxycodone extended release 6 0 mg q. 12 hours. She is on Protonix 40 mg p.o. daily, Pulmicort 0.5 mg inhaled q. 12 hours, Seroqu el 200 mg p.o. b.i.d. She is on IV fluids at 75 mL an hour. She is on Tylenol 650 mg p.o. q. 6 p.r. n. for temperature greater than 100.4, Zofran 4 mg IV q. 6 hours p.r.n. as needed for nausea. The malu chaudhary was on heparin, which has been discontinued. LABORATORY DATA: The patient's labs were also reviewed today. White count is 7.2, hemoglobin 8.3, h ematocrit 24, platelet count is 47,000, manual count of 65. ASSESSMENT NOTES AND PLAN: The patient has a complex presentation. In the background history of hav ing Crohn's disease, she has a significant rectal mass which is pushing the bladder and uterus anteri romi, and there is a complex fluid collection around this mass as well with the finding on attempted colonoscopy that is a new stenotic lesion in the rectosigmoid area that could not be passed and was b leeding, could not be biopsied as well. This along with bilateral hydronephrosis, right greater than the left, also raises the issue whether there is impingement on the bladder at the entrance of the u reters into the bladder that could be accounting for the hydronephrosis as well. The patient also fernandes s new onset of thrombocytopenia, etiology of which is unclear, but it looks like the thrombocytopenia has been chronic from her prior admission. RECOMMENDATIONS: My recommendations would be as follows: 1. In order to study the lesion in the rectum better because the biopsy was not done, will ask the s urgeon to comment whether a surgical scope is needed for a biopsy to reconfirm that this is indeed th e origin where the tumor is coming from. 2. The patient would need urologic evaluation for the hydronephrosis, whether patient needs stents p laced in. 3. The patient will need barium enema to identify the length of the stenosis of the tumor, so we hav e a better idea how to manage her. The patient does have intractable pain requiring a lot of narcoti cs and that complicates the issue as well. I recommended that in addition to the barium enema I woul d recommend MRI of the pelvis as well to delineate the extent of the local pathology. The patient wi ll also benefit from a directed biopsy of one of lymph nodes that may be most easily approachable to have an idea if it is inflammatory from the ulcer on history of Crohn's or is it related to the under lying neoplasm. I will speak to Dr. Marti and I will speak to the other doctors involved in he r care, to make a fair and reasonable decision. Routine post exam instructions have been given to the patient. I told the patient that right now the medical team as adjusting the pain medicines and I will consult with them if they need me. As far a s the thrombocytopenia is concerned, we have requested for a hepatology workup including workup for h epatitis C and HIV. Thank you for allowing me to participate in the management of this patient. Very truly yours. Alessandra Lucas MD cc: [id number] TT: 02/13/2017 18:46:15 Confirmation # [id number] Dictation # [id number] jn
[2017-02-13] MEDS ORDERED: Albuterol-Ipratrop 3 mg / 0.5 (3 ml) UD IH STA (22:02)
[2017-02-13 23:56] LABS: ARTERIAL BLOOD GAS HCO3 15.2 mmol/L (21-28); ARTERIAL BLOOD GAS PH 7.51 (7.35-7.45)
[2017-02-14 00:08] LABS: MEAN CELL VOLUME 85.1 fL (80.0-105.0); MEAN CORPUSCULAR HEMOGLOBIN 28.4 pg (25.0-35.0); MEAN CORPUSCULAR HGB CONC 33.3 g/dl (31.0-37.0); RED CELL DISTRIBUTION WIDTH 18.5 % (11.5-14.5)
[2017-02-14 00:20] LABS: ALB/GLOB RATIO 0.8 (1.1-1.8); BILIRUBIN,TOTAL 0.8 mg/dL (0.2-1.3); CALCIUM 10.1 mg/dL (8.4-10.5); MAGNESIUM 1.4 mg/dL (1.7-2.2); PHOSPHOROUS 4.8 mg/dL (2.5-4.5); POTASSIUM 4.5 mmol/L (3.6-5.0); TOTAL PROTEIN 5.6 g/dL (5.8-8.3)
[2017-02-14] MEDS ORDERED: Magnesium Sulfate 2 GM in Sodium Chloride 0.9% 100 ML IVPB ONE (00:33)
[2017-02-14 00:35] LABS: TROPONIN I 0.29 ng/mL
[2017-02-14 00:47] LABS: HEMATOCRIT 22.8 % (36.0-48.0); PLATELET COUNT 65 10^3/uL (120.0-450.0)
[2017-02-14] MEDS: oxyCODONE 15 mg Immediate Release Tab PO PRN (00:59)
--- NOTE | 2017-02-14 01:07 | CP.PCM.PN ---
Subjective - Date & Time of Evaluation Date of Evaluation: 02/14/17 Time of Evaluation: 00:58 - Subjective Subjective: Seen for sob, tachycardia, tachypnea. Work up was ordered earlier. 97/74,134/min,99.5*F,RR 24/min, pulse ox was 84 % on 4 L/Min by nasal canula. 7.50/19/55/15.2 on 4 L /min. Mag 1.4 Troponin 0.29 D-Dimer 28 BUN/Creatinine 25/2.1 Platelet [age] year old woman with history of asthma, bipolar disorder,Crohn's disease, polysubstance abuse,anemia, thrombocytopenia, adenocarcinoma of colon,right hemicolectomy, perirectad abescess drain, colostomy, admitted with lower extremity and abdominal pain. Objective - Vital Signs/Intake and Output Vital Signs (last 24 hours): Temp Pulse Resp BP Pulse Ox 98.4 F 109 H 18 97/74 L 94 L 02/13/17 16:00 02/13/17 16:00 02/13/17 16:00 02/14/17 00:44 02/13/17 16:00 - Medications Medications: Current Medications Acetaminophen (Tylenol 325mg Tab) 650 mg PO Q6 PRN PRN Reason: Fever >100.4 F Last Admin: 02/13/17 07:07 Dose: 650 mg Arformoterol Tartrate (Brovana) 15 mcg IH [id number] [facility] Last Admin: 02/13/17 19:56 Dose: Not Given Budesonide (Pulmicort Respules) 0.5 mg IH [id number] [facility] Last Admin: 02/13/17 19:56 Dose: Not Given Clonazepam (Klonopin) 1 mg PO BID [facility] PRN Reason: Protocol Last Admin: 02/13/17 18:49 Dose: 1 mg Gabapentin (Neurontin) 800 mg PO QID [facility] Last Admin: 02/13/17 18:48 Dose: 800 mg Sodium Chloride (Sodium Chloride 0.9%) 1,000 mls @ 75 mls/hr IV .[id number] [facility] Last Admin: 02/13/17 03:33 Dose: 75 mls/hr Magnesium Sulfate 2 gm/ Sodium (Chloride) 104 mls @ 102 mls/hr IVPB ONCE ONE Stop: 02/14/17 01:34 Last Admin: 02/14/17 00:44 Dose: 102 mls/hr Ondansetron HCl (Zofran Inj) 4 mg IVP Q6 PRN PRN Reason: Nausea/Vomiting Last Admin: 02/13/17 16:26 Dose: 4 mg Oxycodone HCl (Oxycodone Immediate Release Tab) 15 mg PO Q4 PRN PRN Reason: Pain, moderate (4-7) Last Admin: 02/13/17 20:50 Dose: 15 mg Oxycodone HCl (Oxycontin Extended Release Tab) 60 mg PO Q12H PRN PRN Reason: Pain, moderate (4-7) Last Admin: 02/13/17 18:52 Dose: 60 mg Pantoprazole Sodium (Protonix Ec Tab) 40 mg PO DAILY [facility] Last Admin: 02/13/17 09:43 Dose: 40 mg Quetiapine Fumarate (Seroquel) 200 mg PO BID [facility] Last Admin: 02/13/17 13:50 Dose: 200 mg - Labs Labs: 02/13/17 06:30 02/13/17 23:55 PT 15.8 Seconds (9.9-11.8) H 02/13/17 06:30 INR 1.46 (0.93-1.08) H 02/13/17 06:30 APTT 29.7 Seconds (23.7-30.8) 02/13/17 06:30 - Constitutional Appears: Other (Mild respiratory distress.) - Head Exam Head Exam: ATRAUMATIC, NORMAL INSPECTION, NORMOCEPHALIC - Eye Exam Eye Exam: Normal appearance - ENT Exam ENT Exam: Normal External Ear Exam - Neck Exam Neck Exam: Normal Inspection - Respiratory Exam Respiratory Exam: Rales (Bilateral.), Wheezes (Bilateral.) - Cardiovascular Exam Cardiovascular Exam: Tachycardia, REGULAR RHYTHM. absent: JVD - GI/Abdominal Exam GI & Abdominal Exam: Normal Bowel Sounds. absent: Distended - Rectal Exam Rectal Exam: Deferred - Extremities Exam Extremities Exam: Normal Inspection - Back Exam Back Exam: NORMAL INSPECTION - Neurological Exam Neurological Exam: Alert, Oriented x3 - Psychiatric Exam Psychiatric exam: Normal Affect, Normal Mood - Skin Skin Exam: Normal Color Assessment and Plan - Assessment and Plan (Free Text) Assessment: Dyspnea. Tachypnea. Sinus tachycardia. Hypotension. Sepsis. abdominal pain. S/P colonoscopy. Anemia. Thrombocytopenia. Colon cancer. Hypomagnesemia. COPD. Polysubstance abuse. Elevated D-Dimer. Plan: Hold IV fluid. Mag [place]. IV heparin after VQ scan. IV antibiotic. Evaluation for ICU. TIME SPENT 30 minutes.
[2017-02-14] MEDS ORDERED: Sodium Chloride 0.9% 1,000 ML IV SCH (01:45)
[2017-02-14] MEDS ORDERED: Sodium Chloride 0.9% 1,000 ML IV STA ×6 (02:02→08:52)
[2017-02-14] MEDS: Vancomycin 500mg in NS 500 MG/100 ML BAG IVPB SCH ×3 (02:20→22:30)
--- NOTE | 2017-02-14 02:28 | CP.PCM.CON ---
<LarryCuauhtemocjelani - Last Filed: 02/14/17 01:39> History of Present Illness - History of Present Illness History of Present Illness: ICU Consult Note for Dr. 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 Patients the pain has been severe to the point where she can no longer ambulate. Patient was recently discharged [place] [facility] [place] 02/03[place]17 for lower extremity cellulitis. Patient had finished a course doxy and augmentin after discharged, but did not follow up with GI and heme/onc as instructed. During this admission, patient suddenly became shortness of breath, tachycardic and tachypnic. Patient was found to have elevated D-dimer of 28, ABG lactate 5.4, creatinine of 2.1, hypoxic at 84% while on 4L oxygen via NC. ICU consultation was requested to evaluate the patient. Due to patient's renal function status, CTA cannot be done. Heme/onc attending Dr. Lucas was notified, whom recommended to hold off empiric anticoagulation therapy due to patient's worsening thrombocytopenia. Will await V/Q scan result in the morning and decide the course of treatment. Patient will be transferred to ICU. Review of Systems - Review of Systems Systems not reviewed;Unavailable: Respiratory Distress - Constitutional Constitutional: As Per HPI - EENT Eyes: As Per HPI Nose/Mouth/Throat: As Per HPI - Cardiovascular Cardiovascular: As Per HPI - Respiratory Respiratory: As Per HPI, Dyspnea - Gastrointestinal Gastrointestinal: As Per HPI - Genitourinary Genitourinary: As Per HPI - Musculoskeletal Musculoskeletal: As Per HPI - Integumentary Integumentary: As Per HPI - Neurological Neurological: As Per HPI - Psychiatric Psychiatric: As Per HPI - Endocrine Endocrine: As Per HPI - Hematologic/Lymphatic Hematologic: As Per HPI Past Patient History - Infectious Disease Hx of Infectious Diseases: None - Tetanus Immunizations Tetanus Immunization: Unknown - Past Medical History & Family History Past Medical History?: Yes - Past Social History Smoking Status: Former Smoker Chewing Tobacco Use: No Cigar Use: No Home Situation {Lives}: With Family - CARDIAC Hx Cardiac Disorders: No Hx Angina: No Hx Cardia Arrhythmia: No Hx Circulatory Problems: No Hx Congestive Heart Failure: Yes Hx Heart Murmur: No Hx Heart Transplant: No Hx Hypercholesterolemia: Yes Hx Hypertension: Yes Hx Internal Defibrillator: No Hx Mitral Valve Prolapse: No Hx Pacemaker: No Hx Peripheral Edema: No Hx Peripheral Vascular Disease: No - PULMONARY Hx Respiratory Disorders: No Hx Asthma: Yes Hx Bronchitis: No Hx Chronic Obstructive Pulmonary Disease (COPD): No Hx Emphysema: No Hx Pneumonia: Yes Hx Respiratory Aspiration: No Hx Respiratory Tract Infection: Yes Hx Sleep Apnea: No Hx Tuberculosis: No - NEUROLOGICAL Hx Neurological Disorder: No Hx Alzheimer's Disease: No HX Cerebrovascular Accident: No Hx Dementia: No Hx Dizziness: No Hx Meningitis: No Hx Migraine: No Hx Parkinson's Disease: No Hx Seizures: No Hx Transient Ischemic Attacks (TIA): No - HEENT Hx HEENT Problems: No Hx Blind: No Hx Cataracts: No Hx Deafness: No Hx Difficulty Chewing: No Hx Epistaxis: No Hx Glaucoma: No Hx Macular Degeneration: No - RENAL Hx Chronic Kidney Disease: No Hx Dialysis: No Hx Kidney Stones: No Hx Neurogenic Bladder: No Hx Pyelonephritis: No Hx Renal (Kidney) Cancer: No Hx Renal Failure: No - ENDOCRINE/METABOLIC Hx Endocrine Disorders: No Hx Adrenal Cancer: No Hx Diabetes Insipidus: No Hx Diabetes Mellitus Type 1: No Hx Diabetes Mellitus Type 2: No Hx Hyperthyroidism: No Hx Hypothyroidism: No Hx Systemic Lupus Erythematosus: No - HEMATOLOGICAL/ONCOLOGICAL Hx Blood Transfusions: No Hx Blood Transfusion Reaction: No - INTEGUMENTARY Hx Dermatological Problems: No Hx Basil Cell: No Hx Eczema: No Hx Melanoma: No Hx Psoriasis: No Hx Squamous Cell: No - MUSCULOSKELETAL/RHEUMATOLOGICAL Hx Arthritis: No Hx Back Pain: Yes Hx Degenerative Joint Disease: No Hx Falls: Yes Hx Fractures: No Hx Gout: No Hx Herniated Disk: Yes Hx Myasthenia Gravis: No Hx Osteoarthritis: No Hx Osteomyelitis: No Hx Osteoporosis: No Hx Rhabdomyolysis: No Hx Spinal Stenosis: No Hx Unsteady Gait: No - GASTROINTESTINAL Hx Colostomy: Yes Hx Crohn's Disease: Yes Hx Diverticulitis: No Hx Gall Bladder Disease: No Hx Gastroesophageal Reflux: Yes Hx Ileostomy: No Hx Liver Failure: No Hx Pancreatitis: No HX Swallowing Problems: No Hx Ulcer: No - GENITOURINARY/GYNECOLOGICAL Hx Genitourinary Disorders: No Hx Hematuria: No Hx Incontinence: No Hx Sexually Transmitted Disorders: No - PSYCHIATRIC Hx Anxiety: Yes Hx Bipolar Disorder: Yes Hx Depression: Yes Hx Emotional Abuse: No Hx Hallucinations: Yes Hx Panic Symptoms: No Hx Paranoia: No Hx Post Traumatic Stress Disorder: No Hx Psychosis: No Hx Physical Abuse: No Hx Schizophrenia: No Hx Sexual Abuse: No Hx Substance Use: Yes - SURGICAL HISTORY Hx Surgeries: Yes - ANESTHESIA Hx Anesthesia Reactions: No Hx Malignant Hyperthermia: No Meds Allergies/Adverse Reactions: Allergies Allergy/AdvReac Type Severity Reaction Status Date / Time morphine Allergy RASH Verified 02/11/17 09:22 - Medications Medications: Current Medications Acetaminophen (Tylenol 325mg Tab) 650 mg PO Q6 PRN PRN Reason: Fever >100.4 F Last Admin: 02/13/17 07:07 Dose: 650 mg Arformoterol Tartrate (Brovana) 15 mcg IH [id number] [facility] Last Admin: 02/13/17 19:56 Dose: Not Given Budesonide (Pulmicort Respules) 0.5 mg IH [id number] [facility] Last Admin: 02/13/17 19:56 Dose: Not Given Clonazepam (Klonopin) 1 mg PO BID RAOUL PRN Reason: Protocol Last Admin: 02/13/17 18:49 Dose: 1 mg Gabapentin (Neurontin) 800 mg PO QID [facility] Last Admin: 02/14/17 01:00 Dose: 800 mg Heparin Sodium (Porcine) (Heparin) 5,000 units SC Q8 RAOUL PRN Reason: Protocol Sodium Chloride (Sodium Chloride 0.9%) 1,000 mls @ 75 mls/hr IV .[id number] [facility] Last Admin: 02/13/17 03:33 Dose: 75 mls/hr Vancomycin HCl (Vancomycin 500mg In Ns) 500 mg in 100 mls @ 200 mls/hr IVPB Q12 RAOUL PRN Reason: Protocol Piperacillin Sod/Tazobactam Sod (Zosyn 2.25 Gm In 0.9% 100 Ml) 2.25 gm in 100 mls @ 100 mls/hr IVPB Q6 RAOUL PRN Reason: Protocol Stop: 02/14/17 12:59 Sodium Chloride (Sodium Chloride 0.9%) 1,000 mls @ 125 mls/hr IV .Q8H [facility] Ondansetron HCl (Zofran Inj) 4 mg IVP Q6 PRN PRN Reason: Nausea/Vomiting Last Admin: 02/13/17 16:26 Dose: 4 mg Oxycodone HCl (Oxycodone Immediate Release Tab) 15 mg PO Q4 PRN PRN Reason: Pain, moderate (4-7) Last Admin: 02/14/17 00:59 Dose: 15 mg Oxycodone HCl (Oxycontin Extended Release Tab) 60 mg PO Q12H PRN PRN Reason: Pain, moderate (4-7) Last Admin: 02/13/17 18:52 Dose: 60 mg Pantoprazole Sodium (Protonix Ec Tab) 40 mg PO DAILY [facility] Last Admin: 02/13/17 09:43 Dose: 40 mg Quetiapine Fumarate (Seroquel) 200 mg PO BID [facility] Last Admin: 02/13/17 13:50 Dose: 200 mg Physical Exam - Constitutional Appears: In Acute Distress - Head Exam Head Exam: ATRAUMATIC, NORMAL INSPECTION, NORMOCEPHALIC - Eye Exam Eye Exam: Normal appearance, PERRL - ENT Exam ENT Exam: Mucous Membranes Moist - Neck Exam Neck exam: Positive for: Normal Inspection - Respiratory Exam Respiratory Exam: Respiratory Distress, NORMAL BREATHING PATTERN - Cardiovascular Exam Cardiovascular Exam: Tachycardia, +S1, +S2 - GI/Abdominal Exam GI & Abdominal Exam: Soft. absent: Tenderness Additional comments: colostomy bag filled with stool - Extremities Exam Extremities exam: Positive for: pedal pulses present - Neurological Exam Neurological exam: Alert - Psychiatric Exam Additional comments: unable to assess - Skin Skin Exam: Warm Results - Vital Signs Recent Vital Signs: Last Vital Signs Temp 99.5 F 02/14/17 00:22 Pulse 134 H 02/14/17 00:22 Resp 26 H 02/14/17 00:22 BP 97/74 L 02/14/17 00:44 Pulse Ox 87 L 02/14/17 00:22 - Labs Result Diagrams: 02/13/17 23:55 02/13/17 23:55 Labs: Laboratory Results - last 24 hr 02/13/17 02/13/17 02/13/17 06:30 06:30 06:30 WBC 7.2 RBC 2.90 L Hgb 8.3 L Hct 24.7 L MCV 85.2 MCH 28.6 MCHC 33.6 RDW 18.0 H Plt Count 47 L* Manual Plt Count Gran % 47.4 L Lymph % (Auto) 32.9 [place] % (Auto) 7.7 H Eos % (Auto) 9.8 H Baso % (Auto) 2.2 Gran # 3.40 Lymph # 2.4 [place] # 0.6 Eos # 0.7 Baso # 0.16 PT 15.8 H INR 1.46 H APTT 29.7 D-Dimer, Quantitative pCO2 pO2 HCO3 ABG pH ABG Total CO2 ABG O2 Saturation ABG Base Excess ABG Potassium Glucose Lactate FiO2 Sodium 137 Potassium 4.0 Chloride 106 Carbon Dioxide 23 Anion Gap 12 BUN 15 Creatinine 1.4 Est GFR ( Amer) 48 Est GFR (Non-Af Amer) 40 Random Glucose 77 Calcium 10.2 Phosphorus Magnesium Total Bilirubin 1.0 AST 36 ALT 19 Alkaline Phosphatase 100 Troponin I Total Protein 6.3 Albumin 2.8 L Globulin 3.4 Albumin/Globulin Ratio 0.8 L Carcinoembryonic Ag CA 19-9 Antigen 413 H D Arterial Blood Potassium Hepatitis A IgM Ab Hep Bs Antigen Hep B Core IgM Ab Hepatitis C Antibody 02/13/17 02/13/17 02/13/17 06:30 08:00 08:30 WBC RBC Hgb Hct MCV MCH MCHC RDW Plt Count Manual Plt Count 65 L* Gran % Lymph % (Auto) [place] % (Auto) Eos % (Auto) Baso % (Auto) Gran # Lymph # [place] # Eos # Baso # PT INR APTT D-Dimer, Quantitative pCO2 pO2 HCO3 ABG pH ABG Total CO2 ABG O2 Saturation ABG Base Excess ABG Potassium Glucose Lactate FiO2 Sodium Potassium Chloride Carbon Dioxide Anion Gap BUN Creatinine Est GFR ( Amer) Est GFR (Non-Af Amer) Random Glucose Calcium Phosphorus Magnesium Total Bilirubin AST ALT Alkaline Phosphatase Troponin I Total Protein Albumin Globulin Albumin/Globulin Ratio Carcinoembryonic Ag 395.0 H CA 19-9 Antigen Arterial Blood Potassium Hepatitis A IgM Ab Negative Hep Bs Antigen Negative Hep B Core IgM Ab Negative Hepatitis C Antibody Negative 02/13/17 02/13/17 02/13/17 23:52 23:55 23:55 WBC 3.0 L D RBC 2.68 L Hgb 7.6 L Hct 22.8 L MCV 85.1 MCH 28.4 MCHC 33.3 RDW 18.5 H Plt Count 65 L Manual Plt Count Gran % Lymph % (Auto) [place] % (Auto) Eos % (Auto) Baso % (Auto) Gran # Lymph # [place] # Eos # Baso # PT INR APTT D-Dimer, Quantitative 28.75 H pCO2 19 L* pO2 55.0 L HCO3 15.2 L ABG pH 7.51 H ABG Total CO2 15.8 L ABG O2 Saturation 90.4 L ABG Base Excess -6.8 L ABG Potassium 4.4 Glucose 93 Lactate 5.4 H* FiO2 35.0 Sodium 139.0 Potassium Chloride 115.0 H Carbon Dioxide Anion Gap BUN Creatinine Est GFR ( Amer) Est GFR (Non-Af Amer) Random Glucose Calcium Phosphorus Magnesium Total Bilirubin AST ALT Alkaline Phosphatase Troponin I Total Protein Albumin Globulin Albumin/Globulin Ratio Carcinoembryonic Ag CA 19-9 Antigen Arterial Blood Potassium 4.4 Hepatitis A IgM Ab Hep Bs Antigen Hep B Core IgM Ab Hepatitis C Antibody 02/13/17 23:55 WBC RBC Hgb Hct MCV MCH MCHC RDW Plt Count Manual Plt Count Gran % Lymph % (Auto) [place] % (Auto) Eos % (Auto) Baso % (Auto) Gran # Lymph # [place] # Eos # Baso # PT INR APTT D-Dimer, Quantitative pCO2 pO2 HCO3 ABG pH ABG Total CO2 ABG O2 Saturation ABG Base Excess ABG Potassium Glucose Lactate FiO2 Sodium 137 Potassium 4.5 Chloride 107 Carbon Dioxide 18 L Anion Gap 17 BUN 25 H Creatinine 2.1 H Est GFR ( Amer) 30 Est GFR (Non-Af Amer) 25 Random Glucose 97 Calcium 10.1 Phosphorus 4.8 H Magnesium 1.4 L Total Bilirubin 0.8 AST 64 H ALT 19 Alkaline Phosphatase 76 Troponin I 0.29 H* D Total Protein 5.6 L Albumin 2.4 L Globulin 3.2 Albumin/Globulin Ratio 0.8 L Carcinoembryonic Ag CA 19-9 Antigen Arterial Blood Potassium Hepatitis A IgM Ab Hep Bs Antigen Hep B Core IgM Ab Hepatitis C Antibody Assessment & Plan - Assessment and Plan (Free Text) Assessment: 51 year old female with past medical history of Crohns disease, asthma, bipolar disorder, polysubstance abuse and adenocarcinoma of the colon presents with LE pain likely 2/2 lymphadenopathy admitted to ICU for hypoxic respiratory failure due to sepsis secondary to new onset of pneumonia Plan: Hypoxic respiratory failure due to sepsis secondary to new onset PNA vs PE -ABG 7.51/19/55/15.2/-6.8/90.4, follow up repeat in the AM -D-Dimer 28.75, lactate 5.4 -CXR showed right sided filtrates -Started Vancomycin and Zosyn renal dose -Non rebreather mask -V/Q scan in the morning to r/o PE -Hold off empiric anticoagulation therapy per Heme/onc recommendations -Heparin 5000 Q8 SC -Follow up procal, blood and urine cultures -ID consult, Dr. Ledezma help appreciated Acute renal failure -Acute elevation of BUN/Cr 25/2.1 -IVF NS 125ml/hr Elevated troponin -Troponin 0.29, repeats pending -AM EKG Hypomagnesemia -Mg 1.4 -Mag Sulfate 2gm given -Follow up am lab, supplement as needed Lower extremity pain -LE doppler negative -Continue oxycodone 15 mg po q4h prn and oxycodone 60 mg po q12 prn Normocytic anemia -Colonoscopy was aborted due to severe stenosis -Continue to monitor H/H, transfuse as indicated Inguinal lymphadenopathy likely 2/2 Adenocarcinoma of colon -Heme/onc consult, Dr. Lucas help appreciated -Colonoscopy was aborted due to severe stenosis (see full report) -Consider getting CT chest to determine stage of cancer Prophylactic measures -Protonix -Heparin SC -Acetaminophen IV for fever <Judy STARR,Marcelino - Last Filed: 02/15/17 08:44> Meds - Medications Medications: Current Medications Arformoterol Tartrate (Brovana) 15 mcg IH [id number] [facility] Last Admin: 02/15/17 08:05 Dose: 15 mcg Budesonide (Pulmicort Respules) 0.5 mg IH [id number] [facility] Last Admin: 02/15/17 08:05 Dose: 0.5 mg Clonazepam (Klonopin) 1 mg PO BID [facility] PRN Reason: Protocol Last Admin: 02/14/17 10:00 Dose: Not Given Gabapentin (Neurontin) 800 mg PO QID [facility] Last Admin: 02/14/17 13:29 Dose: Not Given Heparin Sodium (Porcine) (Heparin) 5,000 units SC Q8 [facility] PRN Reason: Protocol Last Admin: 02/14/17 05:36 Dose: Not Given Hydrocortisone Sodium Succinate (Solu-Cortef) 50 mg IVP Q6H [facility] Last Admin: 02/15/17 08:14 Dose: 50 mg Vancomycin HCl (Vancomycin 500mg In Ns) 500 mg in 100 mls @ 200 mls/hr IVPB Q12 [facility] PRN Reason: Protocol Last Admin: 02/14/17 22:30 Dose: 200 mls/hr Acetaminophen (Ofirmev) 1,000 mg in 100 mls @ 400 mls/hr IVPB Q6H PRN PRN Reason: Temperature Stop: 02/16/17 02:07 Last Admin: 02/14/17 02:20 Dose: 400 mls/hr NOREPINEPHRINE BIT/0.9 % NACL (Levophed 4 Mg/ 250 Ml Ns Premixed) 4 mg in 250 mls @ 15 mls/hr IV .[id number] PRN; Protocol; 4 MCG/MIN PRN Reason: TITRATE PER MD ORDER Last Admin: 02/15/17 02:00 Dose: 20 mcg/min, 75 mls/hr Vasopressin 20 units/ Dextrose 101 mls @ 9.09 mls/hr IV .Q11H7M [facility]OUL; 0.03 U/MIN PRN Reason: Protocol Last Admin: 02/15/17 06:31 Dose: 9.09 mls/hr Fentanyl Citrate (Fentanyl Citrate/Sodium Chloride 1 Mg/100 Ml) 1,000 mcg in 100 mls @ 7.5 mls/hr IV .[id number] PRN; Protocol; 75 MCG/HR PRN Reason: TITRATE PER MD ORDER Last Admin: 02/15/17 08:15 Dose: 150 mcg/hr, 15 mls/hr Sodium Bicarbonate 150 meq/ (Dextrose) 1,150 mls @ 150 mls/hr IV .Q7H40M [facility]OU[facility] Last Admin: 02/14/17 23:45 Dose: 150 mls/hr Midazolam 100 mg/100ml in NS (Midazolam 100 Mg/100ml In Ns) 100 mg in 100 mls @ 7 mls/hr IV .[id number] PRN; Protocol; 7 MG/HR PRN Reason: Agitation Last Admin: 02/15/17 08:16 Dose: 7 mg/hr, 7 mls/hr Epinephrine HCl 1 mg/ Sodium (Chloride) 51 mls @ 15.3 mls/hr IV .Q3H20M PRN; Protocol; 5 MCG/MIN PRN Reason: TITRATE PER MD ORDER Last Titration: 02/15/17 06:30 Dose: 3 mcg/min, 9.18 mls/hr Dobutamine HCl/Dextrose (Dobutamine/Dextrose 5% 500mg/250ml) 500 mg in 250 mls @ 3.844 mls/hr IV .Q24H PRN; Protocol; 2.5 MCG/KG/MIN PRN Reason: TITRATE PER PROTOCOL Last Admin: 02/14/17 14:47 Dose: 3.844 mls/hr Meropenem 1g/NS 100mL IVPB (Meropenem 1g/Ns 100ml Ivpb) 1 gm in 100 mls @ 100 mls/hr IVPB Q8 [facility]OU[facility] PRN Reason: Protocol Stop: 02/15/17 14:59 Last Admin: 02/15/17 08:19 Dose: 100 mls/hr Midazolam HCl (Versed Inj) 2 mg IVP Q4H PRN PRN Reason: Agitation Last Admin: 02/14/17 09:40 Dose: 2 mg Ondansetron HCl (Zofran Inj) 4 mg IVP Q6 PRN PRN Reason: Nausea/Vomiting Last Admin: 02/13/17 16:26 Dose: 4 mg Oxycodone HCl (Oxycodone Immediate Release Tab) 15 mg PO Q4 PRN PRN Reason: Pain, moderate (4-7) Last Admin: 02/14/17 00:59 Dose: 15 mg Oxycodone HCl (Oxycontin Extended Release Tab) 60 mg PO Q12H PRN PRN Reason: Pain, moderate (4-7) Last Admin: 02/13/17 18:52 Dose: 60 mg Pantoprazole Sodium (Protonix Inj) 40 mg IVP DAILY [facility] Last Admin: 02/14/17 11:55 Dose: 40 mg Results - Vital Signs Recent Vital Signs: Last Vital Signs Temp 98.1 F 02/14/17 18:00 Pulse 95 H 02/15/17 06:20 Resp 37 H 02/14/17 22:51 BP 117/87 02/15/17 06:31 Pulse Ox 89 L 02/15/17 06:20 - Labs Result Diagrams: 02/15/17 06:14 02/15/17 06:14 Labs: Laboratory Results - last 24 hr 02/14/17 02/14/17 02/14/17 03:20 04:17 07:17 WBC RBC Hgb Hct MCV MCH MCHC RDW Plt Count MPV Gran % Lymph % (Auto) [place] % (Auto) Eos % (Auto) Baso % (Auto) Gran # Lymph # [place] # Eos # Baso # Corrected WBC (Man) Neutrophils % (Manual) Band Neutrophils % Lymphocytes % (Manual) Atypical Lymphs % Monocytes % (Manual) Eosinophils % (Manual) Basophils % (Manual) Myelocytes % Promyelocytes % Nucleated RBC % Platelet Evaluation Polychromasia Poikilocytosis (manual Anisocytosis (manual) Helmet Cells PT INR APTT Fibrinogen Fibrin Degrad Products D-Dimer, Quantitative pCO2 pO2 HCO3 ABG pH ABG Total CO2 ABG O2 Saturation ABG O2 Content ABG Base Excess ABG Hemoglobin ABG Carboxyhemoglobin POC ABG HHb (Measured) ABG Methemoglobin ABG O2 Capacity ABG Potassium VBG pH VBG pCO2 VBG HCO3 VBG Total CO2 VBG O2 Sat (Calc) VBG Base Excess VBG Potassium Hgb O2 Saturation Sodium Chloride Glucose Lactate Mechanical Rate FiO2 Tidal Volume PEEP Potassium Carbon Dioxide Anion Gap BUN Creatinine Est GFR ( Amer) Est GFR (Non-Af Amer) POC Glucose (mg/dL) 35 L* 43 L Random Glucose Lactic Acid Calcium Phosphorus Magnesium Total Bilirubin AST ALT Alkaline Phosphatase Lactate Dehydrogenase Total Creatine Kinase CK-MB (CK-2) CK-MB (CK-2) % Troponin I Total Protein Albumin Globulin Albumin/Globulin Ratio Procalcitonin > 200.00 H Arterial Blood Potassium Venous Blood Potassium Urine Opiates Screen Urine Methadone Screen Ur Barbiturates Screen Ur Phencyclidine Scrn Ur Amphetamines Screen U Benzodiazepines Scrn U Oth Cocaine Metabols U Cannabinoids Screen Blood Type Antibody Screen Crossmatch BBK History Checked 02/14/17 02/14/17 02/14/17 08:47 09:04 09:04 WBC 5.1 D RBC 1.89 L Hgb 5.4 L* D Hct 16.3 L* MCV 86.2 MCH 28.6 MCHC 33.1 RDW 19.0 H Plt Count 33 L* MPV Gran % 11.2 L Lymph % (Auto) 58.1 H [place] % (Auto) 17.4 H Eos % (Auto) 2.7 Baso % (Auto) 10.6 H Gran # 0.57 L Lymph # 3.0 [place] # 0.9 H Eos # 0.1 Baso # 0.54 Corrected WBC (Man) Neutrophils % (Manual) Band Neutrophils % Lymphocytes % (Manual) Atypical Lymphs % Monocytes % (Manual) Eosinophils % (Manual) Basophils % (Manual) Myelocytes % Promyelocytes % Nucleated RBC % Platelet Evaluation Polychromasia Poikilocytosis (manual Anisocytosis (manual) Helmet Cells PT 22.5 H INR 2.08 H APTT 45.0 H Fibrinogen Fibrin Degrad Products D-Dimer, Quantitative pCO2 41 pO2 110.0 H HCO3 15.0 L ABG pH 7.17 L* ABG Total CO2 16.3 L ABG O2 Saturation 95.8 ABG O2 Content ABG Base Excess -12.6 L ABG Hemoglobin ABG Carboxyhemoglobin POC ABG HHb (Measured) ABG Methemoglobin ABG O2 Capacity ABG Potassium 4.4 VBG pH VBG pCO2 VBG HCO3 VBG Total CO2 VBG O2 Sat (Calc) VBG Base Excess VBG Potassium Hgb O2 Saturation Sodium 139.0 Chloride 113.0 H Glucose 72 Lactate 3.2 H Mechanical Rate 15 FiO2 100.0 Tidal Volume 350 PEEP 5 Potassium Carbon Dioxide Anion Gap BUN Creatinine Est GFR ( Amer) Est GFR (Non-Af Amer) POC Glucose (mg/dL) Random Glucose Lactic Acid Calcium Phosphorus Magnesium Total Bilirubin AST ALT Alkaline Phosphatase Lactate Dehydrogenase Total Creatine Kinase CK-MB (CK-2) CK-MB (CK-2) % Troponin I Total Protein Albumin Globulin Albumin/Globulin Ratio Procalcitonin Arterial Blood Potassium 4.4 Venous Blood Potassium Urine Opiates Screen Urine Methadone Screen Ur Barbiturates Screen Ur Phencyclidine Scrn Ur Amphetamines Screen U Benzodiazepines Scrn U Oth Cocaine Metabols U Cannabinoids Screen Blood Type Antibody Screen Crossmatch BBK History Checked 02/14/17 02/14/17 02/14/17 09:04 09:04 09:09 WBC RBC Hgb Hct MCV MCH MCHC RDW Plt Count MPV Gran % Lymph % (Auto) [place] % (Auto) Eos % (Auto) Baso % (Auto) Gran # Lymph # [place] # Eos # Baso # Corrected WBC (Man) Neutrophils % (Manual) Band Neutrophils % Lymphocytes % (Manual) Atypical Lymphs % Monocytes % (Manual) Eosinophils % (Manual) Basophils % (Manual) Myelocytes % Promyelocytes % Nucleated RBC % Platelet Evaluation Polychromasia Poikilocytosis (manual Anisocytosis (manual) Helmet Cells PT INR APTT Fibrinogen Fibrin Degrad Products D-Dimer, Quantitative pCO2 pO2 91 H HCO3 ABG pH ABG Total CO2 ABG O2 Saturation ABG O2 Content ABG Base Excess ABG Hemoglobin ABG Carboxyhemoglobin POC ABG HHb (Measured) ABG Methemoglobin ABG O2 Capacity ABG Potassium VBG pH 7.16 L* VBG pCO2 47.0 VBG HCO3 16.8 L VBG Total CO2 18.2 L VBG O2 Sat (Calc) 95.8 H VBG Base Excess -11.8 L VBG Potassium 4.7 Hgb O2 Saturation Sodium 138 138.0 Chloride 112 H 111.0 H Glucose 69 Lactate 2.8 H Mechanical Rate FiO2 21.0 Tidal Volume PEEP Potassium 4.5 Carbon Dioxide 18 L Anion Gap 13 BUN 28 H Creatinine 2.3 H Est GFR ( Amer) 27 Est GFR (Non-Af Amer) 23 POC Glucose (mg/dL) Random Glucose 67 L Lactic Acid 3.0 H Calcium 8.3 L Phosphorus Magnesium Total Bilirubin 0.5 AST 183 H ALT 55 Alkaline Phosphatase 53 Lactate Dehydrogenase 3878 H Total Creatine Kinase 2592 H CK-MB (CK-2) 34.8 H CK-MB (CK-2) % 1.3 L Troponin I 0.76 H* Total Protein 4.5 L Albumin 1.9 L Globulin 2.6 Albumin/Globulin Ratio 0.7 L Procalcitonin Arterial Blood Potassium Venous Blood Potassium 4.7 Urine Opiates Screen Urine Methadone Screen Ur Barbiturates Screen Ur Phencyclidine Scrn Ur Amphetamines Screen U Benzodiazepines Scrn U Oth Cocaine Metabols U Cannabinoids Screen Blood Type Antibody Screen Crossmatch BBK History Checked 02/14/17 02/14/17 02/14/17 10:11 11:55 13:05 WBC RBC Hgb Hct MCV MCH MCHC RDW Plt Count MPV Gran % Lymph % (Auto) [place] % (Auto) Eos % (Auto) Baso % (Auto) Gran # Lymph # [place] # Eos # Baso # Corrected WBC (Man) Neutrophils % (Manual) Band Neutrophils % Lymphocytes % (Manual) Atypical Lymphs % Monocytes % (Manual) Eosinophils % (Manual) Basophils % (Manual) Myelocytes % Promyelocytes % Nucleated RBC % Platelet Evaluation Polychromasia Poikilocytosis (manual Anisocytosis (manual) Helmet Cells PT INR APTT Fibrinogen Fibrin Degrad Products D-Dimer, Quantitative pCO2 34 L pO2 162.0 H HCO3 15.6 L ABG pH 7.27 L ABG Total CO2 16.6 L ABG O2 Saturation 96.8 ABG O2 Content 7.1 L ABG Base Excess -10.3 L ABG Hemoglobin 4.9 L ABG Carboxyhemoglobin 0 L POC ABG HHb (Measured) 3.2 ABG Methemoglobin 0.0 ABG O2 Capacity 7.3 L ABG Potassium VBG pH VBG pCO2 VBG HCO3 VBG Total CO2 VBG O2 Sat (Calc) VBG Base Excess VBG Potassium Hgb O2 Saturation 96.8 Sodium Chloride Glucose Lactate Mechanical Rate FiO2 100.0 Tidal Volume PEEP Potassium Carbon Dioxide Anion Gap BUN Creatinine Est GFR ( Amer) Est GFR (Non-Af Amer) POC Glucose (mg/dL) Random Glucose Lactic Acid Calcium Phosphorus Magnesium Total Bilirubin AST ALT Alkaline Phosphatase Lactate Dehydrogenase Total Creatine Kinase CK-MB (CK-2) CK-MB (CK-2) % Troponin I Total Protein Albumin Globulin Albumin/Globulin Ratio Procalcitonin Arterial Blood Potassium Venous Blood Potassium Urine Opiates Screen Positive H Urine Methadone Screen Negative Ur Barbiturates Screen Negative Ur Phencyclidine Scrn Negative Ur Amphetamines Screen Negative U Benzodiazepines Scrn Positive H U Oth Cocaine Metabols Negative U Cannabinoids Screen Negative Blood Type O POSITIVE Antibody Screen Negative Crossmatch See Detail BBK History Checked Patient has bt 02/14/17 02/14/17 02/14/17 14:06 16:45 17:15 WBC RBC Hgb Hct MCV MCH MCHC RDW Plt Count MPV Gran % Lymph % (Auto) [place] % (Auto) Eos % (Auto) Baso % (Auto) Gran # Lymph # [place] # Eos # Baso # Corrected WBC (Man) Neutrophils % (Manual) Band Neutrophils % Lymphocytes % (Manual) Atypical Lymphs % Monocytes % (Manual) Eosinophils % (Manual) Basophils % (Manual) Myelocytes % Promyelocytes % Nucleated RBC % Platelet Evaluation Polychromasia Poikilocytosis (manual Anisocytosis (manual) Helmet Cells PT INR APTT Fibrinogen Fibrin Degrad Products D-Dimer, Quantitative pCO2 25 L pO2 139.0 H HCO3 11.5 L ABG pH 7.27 L ABG Total CO2 12.3 L ABG O2 Saturation 97.9 ABG O2 Content ABG Base Excess -13.6 L ABG Hemoglobin ABG Carboxyhemoglobin POC ABG HHb (Measured) ABG Methemoglobin ABG O2 Capacity ABG Potassium 6.3 H* VBG pH VBG pCO2 VBG HCO3 VBG Total CO2 VBG O2 Sat (Calc) VBG Base Excess VBG Potassium Hgb O2 Saturation Sodium 134.0 Chloride 113.0 H Glucose 90 Lactate 5.0 H* Mechanical Rate 30 FiO2 50.0 Tidal Volume 340 PEEP 5 Potassium Carbon Dioxide Anion Gap BUN Creatinine Est GFR ( Amer) Est GFR (Non-Af Amer) POC Glucose (mg/dL) 83 94 Random Glucose Lactic Acid Calcium Phosphorus Magnesium Total Bilirubin AST ALT Alkaline Phosphatase Lactate Dehydrogenase Total Creatine Kinase CK-MB (CK-2) CK-MB (CK-2) % Troponin I Total Protein Albumin Globulin Albumin/Globulin Ratio Procalcitonin Arterial Blood Potassium 6.3 H* Venous Blood Potassium Urine Opiates Screen Urine Methadone Screen Ur Barbiturates Screen Ur Phencyclidine Scrn Ur Amphetamines Screen U Benzodiazepines Scrn U Oth Cocaine Metabols U Cannabinoids Screen Blood Type Antibody Screen Crossmatch BBK History Checked 02/14/17 02/14/17 02/14/17 17:25 17:25 17:25 WBC 4.3 L RBC 3.67 Hgb 10.6 L Hct 31.5 L MCV 85.8 MCH 28.9 MCHC 33.7 RDW 15.8 H Plt Count 111 L MPV 10.7 Gran % 28.0 L Lymph % (Auto) 59.6 H [place] % (Auto) 4.8 Eos % (Auto) 2.8 Baso % (Auto) 4.8 H Gran # 1.21 L Lymph # 2.6 [place] # 0.2 Eos # 0.1 Baso # 0.21 Corrected WBC (Man) Neutrophils % (Manual) Band Neutrophils % Lymphocytes % (Manual) Atypical Lymphs % Monocytes % (Manual) Eosinophils % (Manual) Basophils % (Manual) Myelocytes % Promyelocytes % Nucleated RBC % Platelet Evaluation Polychromasia Poikilocytosis (manual Anisocytosis (manual) Helmet Cells PT INR APTT Fibrinogen Fibrin Degrad Products D-Dimer, Quantitative pCO2 pO2 HCO3 ABG pH ABG Total CO2 ABG O2 Saturation ABG O2 Content ABG Base Excess ABG Hemoglobin ABG Carboxyhemoglobin POC ABG HHb (Measured) ABG Methemoglobin ABG O2 Capacity ABG Potassium VBG pH VBG pCO2 VBG HCO3 VBG Total CO2 VBG O2 Sat (Calc) VBG Base Excess VBG Potassium Hgb O2 Saturation Sodium 137 Chloride 109 H Glucose Lactate Mechanical Rate FiO2 Tidal Volume PEEP Potassium 6.2 H* D Carbon Dioxide 16 L Anion Gap 18 BUN 28 H Creatinine 2.2 H Est GFR ( Amer) 29 Est GFR (Non-Af Amer) 24 POC Glucose (mg/dL) Random Glucose 110 Lactic Acid Calcium 8.3 L Phosphorus Magnesium Total Bilirubin AST ALT Alkaline Phosphatase Lactate Dehydrogenase 5047 H Total Creatine Kinase 2467 H CK-MB (CK-2) 28.4 H CK-MB (CK-2) % 1.2 L Troponin I 0.41 H* D Total Protein Albumin Globulin Albumin/Globulin Ratio Procalcitonin Arterial Blood Potassium Venous Blood Potassium Urine Opiates Screen Urine Methadone Screen Ur Barbiturates Screen Ur Phencyclidine Scrn Ur Amphetamines Screen U Benzodiazepines Scrn U Oth Cocaine Metabols U Cannabinoids Screen Blood Type Antibody Screen Crossmatch BBK History Checked 02/14/17 02/14/17 02/14/17 17:25 17:25 18:27 WBC RBC Hgb Hct MCV MCH MCHC RDW Plt Count MPV Gran % Lymph % (Auto) [place] % (Auto) Eos % (Auto) Baso % (Auto) Gran # Lymph # [place] # Eos # Baso # Corrected WBC (Man) Neutrophils % (Manual) Band Neutrophils % Lymphocytes % (Manual) Atypical Lymphs % Monocytes % (Manual) Eosinophils % (Manual) Basophils % (Manual) Myelocytes % Promyelocytes % Nucleated RBC % Platelet Evaluation Polychromasia Poikilocytosis (manual Anisocytosis (manual) Helmet Cells PT 16.4 H INR 1.52 H APTT 31.3 H Fibrinogen 257.4 Fibrin Degrad Products >40 ug/ml D-Dimer, Quantitative pCO2 pO2 HCO3 ABG pH ABG Total CO2 ABG O2 Saturation ABG O2 Content ABG Base Excess ABG Hemoglobin ABG Carboxyhemoglobin POC ABG HHb (Measured) ABG Methemoglobin ABG O2 Capacity ABG Potassium VBG pH VBG pCO2 VBG HCO3 VBG Total CO2 VBG O2 Sat (Calc) VBG Base Excess VBG Potassium Hgb O2 Saturation Sodium Chloride Glucose Lactate Mechanical Rate FiO2 Tidal Volume PEEP Potassium Carbon Dioxide Anion Gap BUN Creatinine Est GFR ( Amer) Est GFR (Non-Af Amer) POC Glucose (mg/dL) 98 Random Glucose Lactic Acid Calcium Phosphorus Magnesium Total Bilirubin AST ALT Alkaline Phosphatase Lactate Dehydrogenase Total Creatine Kinase CK-MB (CK-2) CK-MB (CK-2) % Troponin I Total Protein Albumin Globulin Albumin/Globulin Ratio Procalcitonin Arterial Blood Potassium Venous Blood Potassium Urine Opiates Screen Urine Methadone Screen Ur Barbiturates Screen Ur Phencyclidine Scrn Ur Amphetamines Screen U Benzodiazepines Scrn U Oth Cocaine Metabols U Cannabinoids Screen Blood Type Antibody Screen Crossmatch BBK History Checked 02/14/17 02/14/17 02/14/17 20:08 21:50 22:59 WBC RBC Hgb Hct MCV MCH MCHC RDW Plt Count MPV Gran % Lymph % (Auto) [place] % (Auto) Eos % (Auto) Baso % (Auto) Gran # Lymph # [place] # Eos # Baso # Corrected WBC (Man) Neutrophils % (Manual) Band Neutrophils % Lymphocytes % (Manual) Atypical Lymphs % Monocytes % (Manual) Eosinophils % (Manual) Basophils % (Manual) Myelocytes % Promyelocytes % Nucleated RBC % Platelet Evaluation Polychromasia Poikilocytosis (manual Anisocytosis (manual) Helmet Cells PT INR APTT Fibrinogen Fibrin Degrad Products D-Dimer, Quantitative pCO2 27 L pO2 118.0 H 59 H HCO3 12.7 L ABG pH 7.28 L ABG Total CO2 13.5 L ABG O2 Saturation 97.9 ABG O2 Content 15.4 ABG Base Excess -12.6 L ABG Hemoglobin 11.2 L ABG Carboxyhemoglobin 1.0 POC ABG HHb (Measured) 2.1 ABG Methemoglobin 0.5 ABG O2 Capacity 15.7 L ABG Potassium VBG pH 7.19 L* VBG pCO2 39.0 L VBG HCO3 14.9 L VBG Total CO2 16.1 L VBG O2 Sat (Calc) 89.2 H VBG Base Excess -12.5 L VBG Potassium 5.6 H Hgb O2 Saturation 96.3 Sodium 138.0 Chloride 108.0 H Glucose 95 Lactate 5.7 H* Mechanical Rate FiO2 50.0 21.0 Tidal Volume PEEP Potassium Carbon Dioxide Anion Gap BUN Creatinine Est GFR ( Amer) Est GFR (Non-Af Amer) POC Glucose (mg/dL) 168 H Random Glucose Lactic Acid Calcium Phosphorus Magnesium Total Bilirubin AST ALT Alkaline Phosphatase Lactate Dehydrogenase Total Creatine Kinase CK-MB (CK-2) CK-MB (CK-2) % Troponin I Total Protein Albumin Globulin Albumin/Globulin Ratio Procalcitonin Arterial Blood Potassium Venous Blood Potassium 5.6 H Urine Opiates Screen Urine Methadone Screen Ur Barbiturates Screen Ur Phencyclidine Scrn Ur Amphetamines Screen U Benzodiazepines Scrn U Oth Cocaine Metabols U Cannabinoids Screen Blood Type Antibody Screen Crossmatch BBK History Checked 02/14/17 02/14/17 02/14/17 22:59 22:59 22:59 WBC 5.2 D RBC 3.51 Hgb 10.2 L Hct 29.7 L MCV 84.6 MCH 29.1 MCHC 34.3 RDW 16.2 H Plt Count 102 L MPV 11.0 Gran % Lymph % (Auto) [place] % (Auto) Eos % (Auto) Baso % (Auto) Gran # Lymph # [place] # Eos # Baso # Corrected WBC (Man) 3.3 L Neutrophils % (Manual) 20 L Band Neutrophils % 3 H Lymphocytes % (Manual) 67 H Atypical Lymphs % 2 H Monocytes % (Manual) 4 Eosinophils % (Manual) 3 Basophils % (Manual) Myelocytes % 1 Promyelocytes % Nucleated RBC % 56 Platelet Evaluation Low Polychromasia Slight Poikilocytosis (manual Slight Anisocytosis (manual) 1+ Helmet Cells Slight PT 19.1 H INR 1.77 H APTT 33.9 H Fibrinogen Fibrin Degrad Products >40 ug/ml D-Dimer, Quantitative 18.00 H pCO2 pO2 HCO3 ABG pH ABG Total CO2 ABG O2 Saturation ABG O2 Content ABG Base Excess ABG Hemoglobin ABG Carboxyhemoglobin POC ABG HHb (Measured) ABG Methemoglobin ABG O2 Capacity ABG Potassium VBG pH VBG pCO2 VBG HCO3 VBG Total CO2 VBG O2 Sat (Calc) VBG Base Excess VBG Potassium Hgb O2 Saturation Sodium Chloride Glucose Lactate Mechanical Rate FiO2 Tidal Volume PEEP Potassium Carbon Dioxide Anion Gap BUN Creatinine Est GFR ( Amer) Est GFR (Non-Af Amer) POC Glucose (mg/dL) Random Glucose Lactic Acid Calcium Phosphorus Magnesium Total Bilirubin AST ALT Alkaline Phosphatase Lactate Dehydrogenase Total Creatine Kinase CK-MB (CK-2) CK-MB (CK-2) % Troponin I Total Protein Albumin Globulin Albumin/Globulin Ratio Procalcitonin Arterial Blood Potassium Venous Blood Potassium Urine Opiates Screen Urine Methadone Screen Ur Barbiturates Screen Ur Phencyclidine Scrn Ur Amphetamines Screen U Benzodiazepines Scrn U Oth Cocaine Metabols U Cannabinoids Screen Blood Type Antibody Screen Crossmatch BBK History Checked 02/14/17 02/14/17 02/15/17 22:59 23:05 05:30 WBC RBC Hgb Hct MCV MCH MCHC RDW Plt Count MPV Gran % Lymph % (Auto) [place] % (Auto) Eos % (Auto) Baso % (Auto) Gran # Lymph # [place] # Eos # Baso # Corrected WBC (Man) Neutrophils % (Manual) Band Neutrophils % Lymphocytes % (Manual) Atypical Lymphs % Monocytes % (Manual) Eosinophils % (Manual) Basophils % (Manual) Myelocytes % Promyelocytes % Nucleated RBC % Platelet Evaluation Polychromasia Poikilocytosis (manual Anisocytosis (manual) Helmet Cells PT INR APTT Fibrinogen Fibrin Degrad Products D-Dimer, Quantitative pCO2 29 L pO2 68.0 L HCO3 19.2 L ABG pH 7.43 ABG Total CO2 20.1 L ABG O2 Saturation 94.4 L ABG O2 Content ABG Base Excess -4.1 L ABG Hemoglobin ABG Carboxyhemoglobin POC ABG HHb (Measured) ABG Methemoglobin ABG O2 Capacity ABG Potassium 4.8 VBG pH VBG pCO2 VBG HCO3 VBG Total CO2 VBG O2 Sat (Calc) VBG Base Excess VBG Potassium Hgb O2 Saturation Sodium 138 138.0 Chloride 109 H 108.0 H Glucose 147 H Lactate 4.2 H* Mechanical Rate FiO2 50.0 Tidal Volume PEEP Potassium 5.4 H Carbon Dioxide 16 L Anion Gap 18 BUN 28 H Creatinine 2.1 H Est GFR ( Amer) 30 Est GFR (Non-Af Amer) 25 POC Glucose (mg/dL) 87 Random Glucose 91 Lactic Acid Calcium 7.6 L Phosphorus Magnesium Total Bilirubin 1.7 H AST 601 H ALT 183 H Alkaline Phosphatase 75 Lactate Dehydrogenase Total Creatine Kinase CK-MB (CK-2) CK-MB (CK-2) % Troponin I Total Protein 5.8 Albumin 2.8 L Globulin 2.9 Albumin/Globulin Ratio 1.0 L Procalcitonin Arterial Blood Potassium 4.8 Venous Blood Potassium Urine Opiates Screen Urine Methadone Screen Ur Barbiturates Screen Ur Phencyclidine Scrn Ur Amphetamines Screen U Benzodiazepines Scrn U Oth Cocaine Metabols U Cannabinoids Screen Blood Type Antibody Screen Crossmatch BBK History Checked 02/15/17 02/15/17 06:14 06:14 WBC 4.4 L RBC 3.57 Hgb 10.7 L Hct 29.5 L MCV 82.6 MCH 30.0 MCHC 36.3 RDW 16.5 H Plt Count 79 L MPV 11.5 H Gran % Lymph % (Auto) [place] % (Auto) Eos % (Auto) Baso % (Auto) Gran # Lymph # [place] # Eos # Baso # Corrected WBC (Man) Neutrophils % (Manual) 18 L Band Neutrophils % Lymphocytes % (Manual) 46 H Atypical Lymphs % Monocytes % (Manual) 21 H Eosinophils % (Manual) 8 H Basophils % (Manual) 1 Myelocytes % 4 Promyelocytes % 2 Nucleated RBC % 32 Platelet Evaluation Polychromasia Poikilocytosis (manual Anisocytosis (manual) Helmet Cells PT INR APTT Fibrinogen Fibrin Degrad Products D-Dimer, Quantitative pCO2 pO2 HCO3 ABG pH ABG Total CO2 ABG O2 Saturation ABG O2 Content ABG Base Excess ABG Hemoglobin ABG Carboxyhemoglobin POC ABG HHb (Measured) ABG Methemoglobin ABG O2 Capacity ABG Potassium VBG pH VBG pCO2 VBG HCO3 VBG Total CO2 VBG O2 Sat (Calc) VBG Base Excess VBG Potassium Hgb O2 Saturation Sodium 138 Chloride 106 Glucose Lactate Mechanical Rate FiO2 Tidal Volume PEEP Potassium 4.5 Carbon Dioxide 20 L Anion Gap 17 BUN 32 H Creatinine 1.9 H Est GFR ( Amer) 34 Est GFR (Non-Af Amer) 28 POC Glucose (mg/dL) Random Glucose 135 H Lactic Acid Calcium 7.2 L Phosphorus 7.5 H Magnesium 1.6 L Total Bilirubin 1.6 H AST 2956 H ALT 755 H Alkaline Phosphatase 101 Lactate Dehydrogenase Total Creatine Kinase CK-MB (CK-2) CK-MB (CK-2) % Troponin I Total Protein 5.7 L Albumin 2.7 L Globulin 3.0 Albumin/Globulin Ratio 0.9 L Procalcitonin Arterial Blood Potassium Venous Blood Potassium Urine Opiates Screen Urine Methadone Screen Ur Barbiturates Screen Ur Phencyclidine Scrn Ur Amphetamines Screen U Benzodiazepines Scrn U Oth Cocaine Metabols U Cannabinoids Screen Blood Type Antibody Screen Crossmatch BBK History Checked Attending/Attestation - Attestation I have personally seen and examined this patient.: Yes I have fully participated in the care of the patient.: Yes I have reviewed all pertinent clinical information: Yes Notes (Text): 02/15/17 08:44 -I agree with the above H&P completed by the resident physician with the following additions and/or changes: The patient is a 51 year old woman with a history of colon cancer, perirectal abscesses (s/p colostomy 2-3 months ago), Crohns disease, bipolar disorder and polysubstance abuse who was admitted on 02/11/17 with lower extremity and abdominal pain. Overnight, the patient suddenly became tachypneic and tachycardic requiring oxygen via non-breather mask. A stat chest x-ray done around midnight showed a evidence of bilateral infiltrates. A stat ABG, also done around midnight, showed respiratory alkalosis (pH=7.51 and PCO2=19). Given this ABG alongside the patients history of malignancy, an elevated D-dimer and her sedentary lifestyle, acute PE was thought to be very high on the differential. However, due to LOWELL, a CT-Angio couldnt be done. I spoke with Dr. Silva (heme/onc) at around 2am regarding pros and cons of starting therapeutic Heparin Drip empirically but per his recommendations it was decided against since the patients platelet counts have been around 60,000 and she was at risk for GI bleeding to begin with. The patients SBP was initially in the mid 90s when she was transferred to the ICU for worsening respiratory status and sepsis. Soon after arrival to the ICU, she became hypotensive (SBP=upper 50s). Consequently, aggressive IVF boluses were given (total of 2.5-3L) after which her SBP slowly increased (as high as 100 around 3am). However, this rise in blood pressure was very short lived as she quickly became hypotensive (SPB=70s) again. As a result, the patient was started on Levophed drip. A V/Q scan has been ordered to evaluate for acute PE. 2D-echo ordered to evaluate EF and RV function. Empiric IV antibiotics (Vanco and Zosyn) have been started and an ID consult placed. Procalcitonin and lactic acid ordered.
[2017-02-14] MEDS: Piperacillin/Tazobact 2.25gm 2.25 GM/100 ML BAG IVPB SCH ×2 (03:31→12:07)
[2017-02-14 03:59] LABS: ALB/GLOB RATIO 0.8 (1.1-1.8); BILIRUBIN,TOTAL 0.8 mg/dL (0.2-1.3); CALCIUM 9.5 mg/dL (8.4-10.5); MAGNESIUM 2.1 mg/dL (1.7-2.2); PHOSPHOROUS 6.9 mg/dL (2.5-4.5); POTASSIUM 4.7 mmol/L (3.6-5.0); TOTAL PROTEIN 5.2 g/dL (5.8-8.3)
[2017-02-14 04:11] LABS: TROPONIN I 0.72 ng/mL
[2017-02-14] MEDS ORDERED: Dextrose 50% SYRINGE Inj (50 ml) IVP ONE ×2 (04:23→18:32)
--- NOTE | 2017-02-14 04:38 | CP.PCM.PN ---
Subjective - Date & Time of Evaluation Date of Evaluation: 02/14/17 Time of Evaluation: 04:37 - Subjective Subjective: # 22 angiocath was inserted in right upper arm. # 20 angio cath was inserted in right distal hand. Dx: Poor venous access. Objective - Vital Signs/Intake and Output Vital Signs (last 24 hours): Temp Pulse Resp BP Pulse Ox 101.3 F H 97 H 34 H 97/74 L 68 L 02/14/17 02:00 02/14/17 04:28 02/14/17 04:28 02/14/17 00:44 02/14/17 04:28 - Medications Medications: Current Medications Acetaminophen (Tylenol 325mg Tab) 650 mg PO Q6 PRN PRN Reason: Fever >100.4 F Last Admin: 02/13/17 07:07 Dose: 650 mg Arformoterol Tartrate (Brovana) 15 mcg IH [id number] [facility] Last Admin: 02/13/17 19:56 Dose: Not Given Budesonide (Pulmicort Respules) 0.5 mg IH [id number] [facility] Last Admin: 02/13/17 19:56 Dose: Not Given Clonazepam (Klonopin) 1 mg PO BID [facility] PRN Reason: Protocol Last Admin: 02/13/17 18:49 Dose: 1 mg Gabapentin (Neurontin) 800 mg PO QID [facility] Last Admin: 02/14/17 01:00 Dose: 800 mg Heparin Sodium (Porcine) (Heparin) 5,000 units SC Q8 [facility] PRN Reason: Protocol Last Admin: 02/14/17 02:19 Dose: 5,000 units Sodium Chloride (Sodium Chloride 0.9%) 1,000 mls @ 75 mls/hr IV .[id number] [facility] Last Admin: 02/13/17 03:33 Dose: 75 mls/hr Vancomycin HCl (Vancomycin 500mg In Ns) 500 mg in 100 mls @ 200 mls/hr IVPB Q12 [facility] PRN Reason: Protocol Last Admin: 02/14/17 02:20 Dose: 200 mls/hr Piperacillin Sod/Tazobactam Sod (Zosyn 2.25 Gm In 0.9% 100 Ml) 2.25 gm in 100 mls @ 100 mls/hr IVPB Q6H [facility] PRN Reason: Protocol Stop: 02/14/17 09:14 Last Admin: 02/14/17 03:31 Dose: 100 mls/hr Sodium Chloride (Sodium Chloride 0.9%) 1,000 mls @ 125 mls/hr IV .Q8H [facility]OU[facility] Acetaminophen (Ofirmev) 1,000 mg in 100 mls @ 400 mls/hr IVPB Q6H PRN PRN Reason: Temperature Stop: 02/16/17 02:07 Last Admin: 02/14/17 02:20 Dose: 400 mls/hr NOREPINEPHRINE BIT/0.9 % NACL (Levophed 4 Mg/ 250 Ml Ns Premixed) 4 mg in 250 mls @ 15 mls/hr IV .[id number] PRN; Protocol; 4 MCG/MIN PRN Reason: TITRATE PER MD ORDER Ondansetron HCl (Zofran Inj) 4 mg IVP Q6 PRN PRN Reason: Nausea/Vomiting Last Admin: 02/13/17 16:26 Dose: 4 mg Oxycodone HCl (Oxycodone Immediate Release Tab) 15 mg PO Q4 PRN PRN Reason: Pain, moderate (4-7) Last Admin: 02/14/17 00:59 Dose: 15 mg Oxycodone HCl (Oxycontin Extended Release Tab) 60 mg PO Q12H PRN PRN Reason: Pain, moderate (4-7) Last Admin: 02/13/17 18:52 Dose: 60 mg Pantoprazole Sodium (Protonix Ec Tab) 40 mg PO DAILY [facility] Last Admin: 02/13/17 09:43 Dose: 40 mg Quetiapine Fumarate (Seroquel) 200 mg PO BID [facility] Last Admin: 02/13/17 13:50 Dose: 200 mg - Labs Labs: 02/13/17 23:55 02/14/17 03:20 PT 15.8 Seconds (9.9-11.8) H 02/13/17 06:30 INR 1.46 (0.93-1.08) H 02/13/17 06:30 APTT 29.7 Seconds (23.7-30.8) 02/13/17 06:30
[2017-02-14] MEDS: NOREPINEPHRINE BIT/0.9 % NACL 4 MG/250 ML BAG IV PRN ×3 (04:43→18:53)
[2017-02-14 06:06] LABS: ARTERIAL BLOOD GAS HCO3 12.4 mmol/L (21-28); ARTERIAL BLOOD GAS PH 7.24 (7.35-7.45)
[2017-02-14] MEDS ORDERED: Dextrose 50% SYRINGE Inj (50 ml) ONE (07:19)
--- NOTE | 2017-02-14 07:29 | PCM.SEPTIC ---
Sepsis Progress Note - Reassessment Type Reassessment Type: Non-invasive reassessment - Non Invasive Reassessment Were the most recent vital sign reviewed: Yes Vital Sign (Latest): Temp Pulse Resp BP Pulse Ox 98.6 F 98 H 22 75/44 L 94 L 02/14/17 04:00 02/14/17 06:40 02/14/17 06:40 02/14/17 06:33 02/14/17 06:40 Cardiovascular: Yes: Regular Rate, Rhythm Respiratory: Yes: Normal Breath Sounds Capillary Refill: Delayed Pulses: Decreased Radial, Decreased Dorsalis Pedis, Decreased Posterior Tibialis Skin: Dry
[2017-02-14] MEDS ORDERED: Etomidate 20 mg/10ml Inj IV ONE (07:55)
[2017-02-14] MEDS ORDERED: Midazolam 2 MG/2 ML VIAL IVP PRN (08:03)
--- NOTE | 2017-02-14 08:05 | CP.PCM.PN ---
Addendum entered and electronically signed by Pacheco Alcala DO 02/14/17 21:27 : Spoke with patients mother Luisana Hartman, Explained in detail the patient condition. She would like to make the patient DNR. If the patients status improves we will consider surgery at this time. Repeat labs are ordered. Since this AM the Pt has received 4prbc 4ffp and 2 plts. She is currently on epi, norepi, dopamine, vasopressin, bicarb and versed drips. Original Note: <Corina Calero - Last Filed: 02/14/17 08:01> Subjective - Date & Time of Evaluation Date of Evaluation: 02/14/17 Time of Evaluation: 08:02 - Subjective Subjective: Surgery: Dr. Marti Patient seen in ICU. Patient developed hypotension, tachycardia and de-sated earlier this morning subsequently transferred from floor. She is mainly moaning with responses. Per report, patient received 3 lt fluid bolus w/o appropriate response. Secondary to worsening respiratory status patient is planned to be intubated by ICU team. Objective - Vital Signs/Intake and Output Vital Signs (last 24 hours): Temp Pulse Resp BP Pulse Ox 98.6 F 98 H 22 75/44 L 94 L 02/14/17 04:00 02/14/17 06:40 02/14/17 06:40 02/14/17 06:33 02/14/17 06:40 Intake and Output: 02/14/17 02/14/17 06:59 18:59 Intake Total 4130 Output Total 150 Balance 3980 - Medications Medications: Current Medications Acetaminophen (Tylenol 325mg Tab) 650 mg PO Q6 PRN PRN Reason: Fever >100.4 F Last Admin: 02/13/17 07:07 Dose: 650 mg Arformoterol Tartrate (Brovana) 15 mcg IH [id number] [facility] Last Admin: 02/13/17 19:56 Dose: Not Given Budesonide (Pulmicort Respules) 0.5 mg IH [id number] [facility] Last Admin: 02/13/17 19:56 Dose: Not Given Clonazepam (Klonopin) 1 mg PO BID [facility] PRN Reason: Protocol Last Admin: 02/13/17 18:49 Dose: 1 mg Gabapentin (Neurontin) 800 mg PO QID [facility] Last Admin: 02/14/17 01:00 Dose: 800 mg Heparin Sodium (Porcine) (Heparin) 5,000 units SC Q8 [facility] PRN Reason: Protocol Last Admin: 02/14/17 05:36 Dose: Not Given Hydrocortisone Sodium Succinate (Solu-Cortef) 50 mg IVP Q6H [facility] Sodium Chloride (Sodium Chloride 0.9%) 1,000 mls @ 75 mls/hr IV .[id number] [facility] Last Admin: 02/13/17 03:33 Dose: 75 mls/hr Vancomycin HCl (Vancomycin 500mg In Ns) 500 mg in 100 mls @ 200 mls/hr IVPB Q12 [facility] PRN Reason: Protocol Last Admin: 02/14/17 02:20 Dose: 200 mls/hr Piperacillin Sod/Tazobactam Sod (Zosyn 2.25 Gm In 0.9% 100 Ml) 2.25 gm in 100 mls @ 100 mls/hr IVPB Q6H [facility] PRN Reason: Protocol Stop: 02/14/17 09:14 Last Admin: 02/14/17 03:31 Dose: 100 mls/hr Sodium Chloride (Sodium Chloride 0.9%) 1,000 mls @ 125 mls/hr IV .Q8H [facility] Last Admin: 02/14/17 02:00 Dose: 125 mls/hr Acetaminophen (Ofirmev) 1,000 mg in 100 mls @ 400 mls/hr IVPB Q6H PRN PRN Reason: Temperature Stop: 02/16/17 02:07 Last Admin: 02/14/17 02:20 Dose: 400 mls/hr NOREPINEPHRINE BIT/0.9 % NACL (Levophed 4 Mg/ 250 Ml Ns Premixed) 4 mg in 250 mls @ 15 mls/hr IV .[id number] PRN; Protocol; 4 MCG/MIN PRN Reason: TITRATE PER MD ORDER Last Titration: 02/14/17 06:00 Dose: 10 mcg/min, 37.5 mls/hr Vasopressin 20 units/ Dextrose 101 mls @ 9.09 mls/hr IV .Q11H7M [facility]; 0.03 U/MIN PRN Reason: Protocol Ondansetron HCl (Zofran Inj) 4 mg IVP Q6 PRN PRN Reason: Nausea/Vomiting Last Admin: 02/13/17 16:26 Dose: 4 mg Oxycodone HCl (Oxycodone Immediate Release Tab) 15 mg PO Q4 PRN PRN Reason: Pain, moderate (4-7) Last Admin: 02/14/17 00:59 Dose: 15 mg Oxycodone HCl (Oxycontin Extended Release Tab) 60 mg PO Q12H PRN PRN Reason: Pain, moderate (4-7) Last Admin: 02/13/17 18:52 Dose: 60 mg Pantoprazole Sodium (Protonix Ec Tab) 40 mg PO DAILY [facility] Last Admin: 02/13/17 09:43 Dose: 40 mg Quetiapine Fumarate (Seroquel) 200 mg PO BID [facility] Last Admin: 02/13/17 13:50 Dose: 200 mg - Labs Labs: 02/13/17 23:55 02/14/17 03:20 PT 15.8 Seconds (9.9-11.8) H 02/13/17 06:30 INR 1.46 (0.93-1.08) H 02/13/17 06:30 APTT 29.7 Seconds (23.7-30.8) 02/13/17 06:30 - Constitutional Appears: Toxic, Cachectic - ENT Exam ENT Exam: Mucous Membranes Moist - Respiratory Exam Respiratory Exam: Respiratory Distress - Cardiovascular Exam Cardiovascular Exam: Tachycardia - GI/Abdominal Exam GI & Abdominal Exam: Distended, Rigid Additional comments: colostomy in LLQ pink patent w/ brown stool output - Psychiatric Exam Psychiatric exam: Agitated - Skin Skin Exam: Dry, Pallor Assessment and Plan - Assessment and Plan (Free Text) Assessment: 51 y/o female w/ shock and multi-system organ failure Plan: -acute care by ICU team -patient set to be intubated at this time -f/u CXR s/p intubation, if free air suspected should be visualized under diaphragm -will need aggressive fluid hydration, pressure support -broad spectrum antibiotics -ct abd/pelvis if patient stable enough for transport -further surgical intervention pending imaging studies -further recs per Dr. Marti [facility] PGY1 <Dheeraj Marti - Last Filed: 02/15/17 23:16> Objective - Vital Signs/Intake and Output Vital Signs (last 24 hours): Temp Pulse Resp BP Pulse Ox 100.0 F H 92 H 37 H 96/67 L 93 L 02/15/17 18:00 02/15/17 20:20 02/14/17 22:51 02/15/17 20:00 02/15/17 20:20 Intake and Output: 02/15/17 02/16/17 18:59 06:59 Intake Total 1750 Output Total 800 Balance 950 - Medications Medications: Current Medications Arformoterol Tartrate (Brovana) 15 mcg IH [id number] [facility] Last Admin: 02/15/17 19:42 Dose: 15 mcg Budesonide (Pulmicort Respules) 0.5 mg IH [id number] [facility] Last Admin: 02/15/17 19:43 Dose: 0.5 mg Clonazepam (Klonopin) 1 mg PO BID [facility] PRN Reason: Protocol Last Admin: 02/14/17 10:00 Dose: Not Given Gabapentin (Neurontin) 800 mg PO QID [facility] Last Admin: 02/14/17 13:29 Dose: Not Given Heparin Sodium (Porcine) (Heparin) 5,000 units SC Q8 [facility] PRN Reason: Protocol Last Admin: 02/14/17 05:36 Dose: Not Given Hydrocortisone Sodium Succinate (Solu-Cortef) 50 mg IVP Q6H [facility] Last Admin: 02/15/17 20:24 Dose: 50 mg NOREPINEPHRINE BIT/0.9 % NACL (Levophed 4 Mg/ 250 Ml Ns Premixed) 4 mg in 250 mls @ 15 mls/hr IV .[id number] PRN; Protocol; 4 MCG/MIN PRN Reason: TITRATE PER MD ORDER Last Admin: 02/15/17 02:00 Dose: 20 mcg/min, 75 mls/hr Vasopressin 20 units/ Dextrose 101 mls @ 9.09 mls/hr IV .Q11H7M [facility]; 0.03 U/MIN PRN Reason: Protocol Last Admin: 02/15/17 06:31 Dose: 9.09 mls/hr Fentanyl Citrate (Fentanyl Citrate/Sodium Chloride 1 Mg/100 Ml) 1,000 mcg in 100 mls @ 7.5 mls/hr IV .[id number] PRN; Protocol; 75 MCG/HR PRN Reason: TITRATE PER MD ORDER Last Admin: 02/15/17 08:15 Dose: 150 mcg/hr, 15 mls/hr Sodium Bicarbonate 150 meq/ (Dextrose) 1,150 mls @ 150 mls/hr IV .Q7H40M [facility] Last Admin: 02/14/17 23:45 Dose: 150 mls/hr Midazolam 100 mg/100ml in NS (Midazolam 100 Mg/100ml In Ns) 100 mg in 100 mls @ 7 mls/hr IV .[id number] PRN; Protocol; 7 MG/HR PRN Reason: Agitation Last Admin: 02/15/17 08:16 Dose: 7 mg/hr, 7 mls/hr Epinephrine HCl 1 mg/ Sodium (Chloride) 51 mls @ 15.3 mls/hr IV .Q3H20M PRN; Protocol; 5 MCG/MIN PRN Reason: TITRATE PER MD ORDER Last Titration: 02/15/17 11:30 Dose: 0 mcg/min, 0 mls/hr Dobutamine HCl/Dextrose (Dobutamine/Dextrose 5% 500mg/250ml) 500 mg in 250 mls @ 3.844 mls/hr IV .Q24H PRN; Protocol; 2.5 MCG/KG/MIN PRN Reason: TITRATE PER PROTOCOL Last Admin: 02/14/17 14:47 Dose: 3.844 mls/hr Meropenem 1g/NS 100mL IVPB (Meropenem 1g/Ns 100ml Ivpb) 1 gm in 100 mls @ 100 mls/hr IVPB Q8 [facility] PRN Reason: Protocol Last Admin: 02/15/17 22:13 Dose: 100 mls/hr Midazolam HCl (Versed Inj) 2 mg IVP Q4H PRN PRN Reason: Agitation Last Admin: 02/14/17 09:40 Dose: 2 mg Ondansetron HCl (Zofran Inj) 4 mg IVP Q6 PRN PRN Reason: Nausea/Vomiting Last Admin: 02/13/17 16:26 Dose: 4 mg Oxycodone HCl (Oxycodone Immediate Release Tab) 15 mg PO Q4 PRN PRN Reason: Pain, moderate (4-7) Last Admin: 02/14/17 00:59 Dose: 15 mg Oxycodone HCl (Oxycontin Extended Release Tab) 60 mg PO Q12H PRN PRN Reason: Pain, moderate (4-7) Last Admin: 02/13/17 18:52 Dose: 60 mg Pantoprazole Sodium (Protonix Inj) 40 mg IVP DAILY [facility] Last Admin: 02/15/17 10:42 Dose: 40 mg - Labs Labs: 02/15/17 06:14 02/15/17 06:14 PT 19.1 Seconds (9.9-11.8) H 02/14/17 22:59 INR 1.77 (0.93-1.08) H 02/14/17 22:59 APTT 33.9 Seconds (23.7-30.8) H 02/14/17 22:59 Assessment and Plan - Assessment and Plan (Free Text) Plan: Patient was seen and examined by me. I agree with assessment and plan as per resident's note.Patient in septic and hemodynamic shock with renal and respiratory failure. Patients moving on to unstable for surgical intervention at this point. Will aggressively resuscitate an outpatient status improves will discuss a patient's mother in order to obtain consent for surgical intervention.
--- NOTE | 2017-02-14 08:07 | PCM.PROC ---
<Pat Méndez - Last Filed: 02/14/17 08:21> Procedures Attestation:: I certify that I have explained the specified Operation(s) or Procedure(s), risks, benefits and reasonable alternatives to the Patient and/or other person responsible. The opportunity was given to ask questions and all questions answered - Central Line Placement Right Internal Jugular Triple Lumen Catheter Aseptic technique was employed throughout the procedure: Hand Hygiene done prior to procedure, Full sterile barriers (mask, hair cover, sterile gown, sterile gloves), Full body sterile drape, Chloraprep Antiseptic: 30 second prep for IJ or SC sites CVP Time Out Performed: Yes Pt. Placed on Pulse Ox Monitor: Yes Central Line Prep: Chlorhexidine-Alcohol Combination Local Anesthesia Used: Lidocaine 1% Amount of Anesthesia Used (mls): 5 Ultrasound Used for Placement: Yes Central Line Lumen Inserted: triple Central Line Length: 16 cm Post Procedure: Sutured in Place, Good Blood Return, All Ports Aspirated, Flushed, Capped, Sterile Dressing Applied Secured by: Suture Post procedure dressing: Gauze Post Procedure X-Ray: Yes Patient Tolerated Procedure: Well, No Complications Immediate Complications: None <Van Lopez - Last Filed: 02/14/17 16:57> Addendum Addendum: 02/14/17 16:55 I was present in the room throughout the procedure and directly supervised the procedure. Maximum barrier precautions used. CXR: No PTX and correct position. EBL minimal. Patient tolerated procedure well
[2017-02-14] MEDS: Arformoterol 15 mcg/2 ml Inh Sol IH SCH ×2 (08:15→19:46)
[2017-02-14] MEDS: Budesonide 0.5 mg/2 ml Inhal Susp UD IH SCH ×2 (08:15→19:46)
[2017-02-14] MEDS: Fentanyl 1000mcg/100ml NS 1,000 MCG/100 ML BAG IV PRN ×2 (08:33→13:43)
[2017-02-14 08:54] LABS: ABG MECHANICAL RATE 15; ATERIAL BLOOD GAS PEEP 5
[2017-02-14 08:55] LABS: ARTERIAL BLOOD GAS PH 7.17 (7.35-7.45)
--- NOTE | 2017-02-14 09:00 | CP.PCM.PN ---
<JulyariajimPete - Last Filed: 02/14/17 10:04> Subjective - Date & Time of Evaluation Date of Evaluation: 02/14/17 Time of Evaluation: 08:15 - Subjective Subjective: PGY4 GI Fellow Progress Note Patient seen and examined bedside this morning. The patient had been transferred to ICU overnight for worsening hypotension and hypoxia. She is now intubated, s/p triple lumen cath insertion and on pressor support. Colonoscopy through the patient's rectum was performed yesterday with discovery of a friable bulky mass lesion at the anal verge extending several cm proximally. No attempt was made at biopsy and we did not attempt to place colonoscope through her ostomy as she had not prepped. Currently, the patient is sedated/intubated and cannot provide any history. 12 system ROS cannot be performed given clinical condition. Objective - Vital Signs/Intake and Output Vital Signs (last 24 hours): Temp Pulse Resp BP Pulse Ox 98.6 F 98 H 22 75/44 L 94 L 02/14/17 04:00 02/14/17 06:40 02/14/17 06:40 02/14/17 06:33 02/14/17 06:40 Intake and Output: 02/14/17 02/14/17 06:59 18:59 Intake Total 4130 Output Total 150 Balance 3980 - Medications Medications: Current Medications Acetaminophen (Tylenol 325mg Tab) 650 mg PO Q6 PRN PRN Reason: Fever >100.4 F Last Admin: 02/13/17 07:07 Dose: 650 mg Arformoterol Tartrate (Brovana) 15 mcg IH [id number] [facility] Last Admin: 02/13/17 19:56 Dose: Not Given Budesonide (Pulmicort Respules) 0.5 mg IH [id number] [facility] Last Admin: 02/13/17 19:56 Dose: Not Given Clonazepam (Klonopin) 1 mg PO BID [facility] PRN Reason: Protocol Last Admin: 02/13/17 18:49 Dose: 1 mg Gabapentin (Neurontin) 800 mg PO QID [facility] Last Admin: 02/14/17 01:00 Dose: 800 mg Heparin Sodium (Porcine) (Heparin) 5,000 units SC Q8 [facility] PRN Reason: Protocol Last Admin: 02/14/17 05:36 Dose: Not Given Hydrocortisone Sodium Succinate (Solu-Cortef) 50 mg IVP Q6H [facility] Sodium Chloride (Sodium Chloride 0.9%) 1,000 mls @ 75 mls/hr IV .[id number] [facility] Last Admin: 02/13/17 03:33 Dose: 75 mls/hr Vancomycin HCl (Vancomycin 500mg In Ns) 500 mg in 100 mls @ 200 mls/hr IVPB Q12 [facility] PRN Reason: Protocol Last Admin: 02/14/17 02:20 Dose: 200 mls/hr Piperacillin Sod/Tazobactam Sod (Zosyn 2.25 Gm In 0.9% 100 Ml) 2.25 gm in 100 mls @ 100 mls/hr IVPB Q6H [facility] PRN Reason: Protocol Stop: 02/14/17 09:14 Last Admin: 02/14/17 03:31 Dose: 100 mls/hr Sodium Chloride (Sodium Chloride 0.9%) 1,000 mls @ 125 mls/hr IV .Q8H [facility] Last Admin: 02/14/17 02:00 Dose: 125 mls/hr Acetaminophen (Ofirmev) 1,000 mg in 100 mls @ 400 mls/hr IVPB Q6H PRN PRN Reason: Temperature Stop: 02/16/17 02:07 Last Admin: 02/14/17 02:20 Dose: 400 mls/hr NOREPINEPHRINE BIT/0.9 % NACL (Levophed 4 Mg/ 250 Ml Ns Premixed) 4 mg in 250 mls @ 15 mls/hr IV .[id number] PRN; Protocol; 4 MCG/MIN PRN Reason: TITRATE PER MD ORDER Last Titration: 02/14/17 06:00 Dose: 10 mcg/min, 37.5 mls/hr Vasopressin 20 units/ Dextrose 101 mls @ 9.09 mls/hr IV .Q11H7M [facility]; 0.03 U/MIN PRN Reason: Protocol Fentanyl Citrate (Fentanyl Citrate/Sodium Chloride 1 Mg/100 Ml) 1,000 mcg in 100 mls @ 7.5 mls/hr IV .[id number] PRN; Protocol; 75 MCG/HR PRN Reason: TITRATE PER MD ORDER Last Admin: 02/14/17 08:33 Dose: 75 mcg/hr, 7.5 mls/hr Sodium Bicarbonate 150 meq/ (Dextrose) 1,150 mls @ 150 mls/hr IV .Q7H40M [facility] Sodium Chloride (Sodium Chloride 0.9%) 1,000 mls @ 999 mls/hr IV .Q1H1M STA Stop: 02/14/17 09:51 Sodium Chloride (Sodium Chloride 0.9%) 1,000 mls @ 999 mls/hr IV .Q1H1M STA Stop: 02/14/17 09:51 Sodium Chloride (Sodium Chloride 0.9%) 1,000 mls @ 999 mls/hr IV .Q1H1M STA Stop: 02/14/17 09:52 Midazolam HCl (Versed Inj) 2 mg IVP Q4H PRN PRN Reason: Agitation Ondansetron HCl (Zofran Inj) 4 mg IVP Q6 PRN PRN Reason: Nausea/Vomiting Last Admin: 02/13/17 16:26 Dose: 4 mg Oxycodone HCl (Oxycodone Immediate Release Tab) 15 mg PO Q4 PRN PRN Reason: Pain, moderate (4-7) Last Admin: 02/14/17 00:59 Dose: 15 mg Oxycodone HCl (Oxycontin Extended Release Tab) 60 mg PO Q12H PRN PRN Reason: Pain, moderate (4-7) Last Admin: 02/13/17 18:52 Dose: 60 mg Pantoprazole Sodium (Protonix Ec Tab) 40 mg PO DAILY [facility] Last Admin: 02/13/17 09:43 Dose: 40 mg - Labs Labs: 02/13/17 23:55 02/14/17 03:20 PT 15.8 Seconds (9.9-11.8) H 02/13/17 06:30 INR 1.46 (0.93-1.08) H 02/13/17 06:30 APTT 29.7 Seconds (23.7-30.8) 02/13/17 06:30 - Constitutional Appears: Other (intubated, sedated) - Eye Exam Eye Exam: PERRL - ENT Exam ENT Exam: Mucous Membranes Dry - Respiratory Exam Respiratory Exam: Clear to Ausculation Bilateral. absent: Rales, Rhonchi, Wheezes - Cardiovascular Exam Cardiovascular Exam: RRR, +S1, +S2 - GI/Abdominal Exam GI & Abdominal Exam: Distended, Firm, Rigid, Diminished Bowel Sounds, Hypoactive Bowel Sounds. 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 -Acute septic shock suspect 2/2 abdominal fluid collection -Anion gap metabolic acidosis -Demand ischemia with rising troponin -Elevated D-dimer, LDH in setting of malignancy/sepsis -Bulky rectal mass noted on colonoscopy; h/o mucinous adenocarcinoma -Normocytic anemia -Thrombocytopenia -Leg/Groin pain -Crohn's disease, nonadherent to therapy/follow up -Severe anxiety/depression with history of Bipolar d/o -Multisubstance abuse Plan: -Large bulky, firm mass noted yesterday; colonoscopy aborted, no biopsy performed -Now intubated, sedated; septic work up ongoing -Plan for repeat CT A/P today, R/O worsening fluid collection, perforation; if CT cannot be performed, bedside plain film can be performed -Requiring pressor support, currently on levophed/vasopressin gtt -Possible DIC picture 2/2 septic shock -Consider ethics consultation if family cannot be contacted; has been unreachable thusfar -Surgery/oncology following <Fabi Plascencia MD - Last Filed: 02/14/17 13:48> Objective - Vital Signs/Intake and Output Vital Signs (last 24 hours): Temp Pulse Resp BP Pulse Ox 98.6 F 98 H 22 89/53 L 94 L 02/14/17 04:00 02/14/17 06:40 02/14/17 06:40 02/14/17 09:28 02/14/17 06:40 Intake and Output: 02/14/17 02/14/17 06:59 18:59 Intake Total 4130 120 Output Total 150 Balance 3980 120 - Medications Medications: Current Medications Acetaminophen (Tylenol 325mg Tab) 650 mg PO Q6 PRN PRN Reason: Fever >100.4 F Last Admin: 02/13/17 07:07 Dose: 650 mg Arformoterol Tartrate (Brovana) 15 mcg IH [id number] [facility] Last Admin: 02/14/17 08:15 Dose: Not Given Budesonide (Pulmicort Respules) 0.5 mg IH [id number] [facility] Last Admin: 02/14/17 08:15 Dose: Not Given Clonazepam (Klonopin) 1 mg PO BID [facility] PRN Reason: Protocol Last Admin: 02/14/17 10:00 Dose: Not Given Gabapentin (Neurontin) 800 mg PO QID [facility] Last Admin: 02/14/17 13:29 Dose: Not Given Heparin Sodium (Porcine) (Heparin) 5,000 units SC Q8 [facility] PRN Reason: Protocol Last Admin: 02/14/17 05:36 Dose: Not Given Hydrocortisone Sodium Succinate (Solu-Cortef) 50 mg IVP Q6H [facility] Last Admin: 02/14/17 13:31 Dose: 50 mg Sodium Chloride (Sodium Chloride 0.9%) 1,000 mls @ 75 mls/hr IV .[id number] [facility] Last Admin: 02/13/17 03:33 Dose: 75 mls/hr Vancomycin HCl (Vancomycin 500mg In Ns) 500 mg in 100 mls @ 200 mls/hr IVPB Q12 [facility] PRN Reason: Protocol Last Admin: 02/14/17 11:21 Dose: 200 mls/hr Sodium Chloride (Sodium Chloride 0.9%) 1,000 mls @ 125 mls/hr IV .Q8H [facility] Last Admin: 02/14/17 02:00 Dose: 125 mls/hr Acetaminophen (Ofirmev) 1,000 mg in 100 mls @ 400 mls/hr IVPB Q6H PRN PRN Reason: Temperature Stop: 02/16/17 02:07 Last Admin: 02/14/17 02:20 Dose: 400 mls/hr NOREPINEPHRINE BIT/0.9 % NACL (Levophed 4 Mg/ 250 Ml Ns Premixed) 4 mg in 250 mls @ 15 mls/hr IV .[id number] PRN; Protocol; 4 MCG/MIN PRN Reason: TITRATE PER MD ORDER Last Titration: 02/14/17 13:29 Dose: 20 mcg/min, 75 mls/hr Vasopressin 20 units/ Dextrose 101 mls @ 9.09 mls/hr IV .Q11H7M [facility]; 0.03 U/MIN PRN Reason: Protocol Last Admin: 02/14/17 09:28 Dose: 9.09 mls/hr Fentanyl Citrate (Fentanyl Citrate/Sodium Chloride 1 Mg/100 Ml) 1,000 mcg in 100 mls @ 7.5 mls/hr IV .[id number] PRN; Protocol; 75 MCG/HR PRN Reason: TITRATE PER MD ORDER Last Admin: 02/14/17 08:33 Dose: 75 mcg/hr, 7.5 mls/hr Sodium Bicarbonate 150 meq/ (Dextrose) 1,150 mls @ 150 mls/hr IV .Q7H40M [facility] Last Admin: 02/14/17 13:25 Dose: 150 mls/hr Midazolam 100 mg/100ml in NS (Midazolam 100 Mg/100ml In Ns) 100 mg in 100 mls @ 7 mls/hr IV .[id number] PRN; Protocol; 7 MG/HR PRN Reason: Agitation Last Admin: 02/14/17 12:51 Dose: 7 mg/hr, 7 mls/hr Epinephrine HCl 1 mg/ Sodium (Chloride) 51 mls @ 3.06 mls/hr IV .[id number] PRN; Protocol; 1 MCG/MIN PRN Reason: TITRATE PER MD ORDER Last Titration: 02/14/17 13:28 Dose: 5 mcg/min, 15.3 mls/hr Midazolam HCl (Versed Inj) 2 mg IVP Q4H PRN PRN Reason: Agitation Last Admin: 02/14/17 09:40 Dose: 2 mg Ondansetron HCl (Zofran Inj) 4 mg IVP Q6 PRN PRN Reason: Nausea/Vomiting Last Admin: 02/13/17 16:26 Dose: 4 mg Oxycodone HCl (Oxycodone Immediate Release Tab) 15 mg PO Q4 PRN PRN Reason: Pain, moderate (4-7) Last Admin: 02/14/17 00:59 Dose: 15 mg Oxycodone HCl (Oxycontin Extended Release Tab) 60 mg PO Q12H PRN PRN Reason: Pain, moderate (4-7) Last Admin: 02/13/17 18:52 Dose: 60 mg Pantoprazole Sodium (Protonix Ec Tab) 40 mg PO DAILY [facility] Last Admin: 02/13/17 09:43 Dose: 40 mg Pantoprazole Sodium (Protonix Inj) 40 mg IVP DAILY [facility] Last Admin: 02/14/17 11:55 Dose: 40 mg - Labs Labs: 02/14/17 09:04 02/14/17 09:04 PT 22.5 Seconds (9.9-11.8) H 02/14/17 09:04 INR 2.08 (0.93-1.08) H 02/14/17 09:04 APTT 45.0 Seconds (23.7-30.8) H 02/14/17 09:04 Attending/Attestation - Attestation I have personally seen and examined this patient.: Yes I have fully participated in the care of the patient.: Yes I have reviewed all pertinent clinical information, including history, physical exam and plan: Yes Notes (Text): 02/14/17 13:38 51 yr old female with PMHx significant for 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 s/p flex sigmoidoscopy with tight stenotic mass perianal and rectum with non tranverse of scope. Unable to do biopsies due to active bleeding. Now in acute septic shock with AG metabolic acidosis and hemolysis on pressor support. CTAP to rule out perforation. May benefit from involving ethics as no immediate family available. Multi substance abuse may play a part in her clinical picture. Surgery and oncology input appreciated. Rest of plan as per MICU. Discussed with Dr Monzon.
[2017-02-14 09:11] LABS: BASO # 0.54 K/mm3 (0.0-2.0); BASO % 10.6 % (0.0-3.0); EOS # 0.1 (0.0-0.7); EOS % 2.7 % (1.5-5.0); GRAN # 0.57 (1.4-6.5); GRAN % 11.2 % (50.0-68.0); LYMPH % 58.1 % (22.0-35.0); MEAN CELL VOLUME 86.2 fL (80.0-105.0); MEAN CORPUSCULAR HEMOGLOBIN 28.6 pg (25.0-35.0); MEAN CORPUSCULAR HGB CONC 33.1 g/dl (31.0-37.0); MONO # 0.9 (0.1-0.6); MONO % 17.4 % (1.0-6.0); PLATELET COUNT 33 10^3/uL (120.0-450.0); WHITE BLOOD COUNT 5.1 10^3/ul (4.5-11.0)
[2017-02-14 09:12] LABS: VENOUS BLOOD GAS BASE EXCESS -11.8 mmol/L (0.0-2.0)
[2017-02-14 09:17] LABS: VENOUS BLOOD PH 7.16 (7.32-7.43)
[2017-02-14 09:17] LABS: ADD MANUAL DIFF? NO; ALB/GLOB RATIO 0.7 (1.1-1.8); BILIRUBIN,TOTAL 0.5 mg/dL (0.2-1.3); CALCIUM 8.3 mg/dL (8.4-10.5); HEMATOCRIT 16.3 % (36.0-48.0); POTASSIUM 4.5 mmol/L (3.6-5.0); TOTAL PROTEIN 4.5 g/dL (5.8-8.3)
[2017-02-14 09:19] LABS: INR 2.08 (0.93-1.08)
[2017-02-14] MEDS: Vasopressin 20 UNITS in Dextrose 5% In Water 100 ML IV SCH (09:28)
[2017-02-14 09:31] LABS: TROPONIN I 0.76 ng/mL
[2017-02-14 10:14] LABS: ARTERIAL BLOOD GAS HCO3 15.6 mmol/L (21-28); ARTERIAL BLOOD GAS O2 CAPACITY 7.3 mL/dl (16-24); ARTERIAL BLOOD GAS O2 CONTENT 7.1 ML/dl (15-23); ARTERIAL BLOOD GAS PH 7.27 (7.35-7.45); ARTERIAL BLOOD HGB O2 SAT 96.8 % (95.0-98.0); CARBOXYHEMOGLOBIN 0 % (0.5-1.5); HHB 3.2 % (0-5)
--- NOTE | 2017-02-14 11:08 | CT ---
PROCEDURE: CT Abdomen and Pelvis without intravenous contrast HISTORY: peritonitis COMPARISON: 02/11/2017. TECHNIQUE: Technique. Contrast Dose: Radiation dose: Total exam DLP = 816 mGy-cm. This CT exam was performed using one or more of the following dose reduction techniques: Automated exposure control, adjustment of the mA and/or kV according to patient size, and/or use of iterative reconstruction technique. FINDINGS: LOWER THORAX: Bibasilar consolidation is noted. LIVER: Unremarkable. No gross lesion or ductal dilatation. GALLBLADDER AND BILE DUCTS: Unremarkable. PANCREAS: Unremarkable. No gross lesion or ductal dilatation. SPLEEN: Unremarkable. ADRENALS: Unremarkable. No mass. KIDNEYS AND URETERS: Re-demonstration of right hydronephrosis. VASCULATURE: Unremarkable. No aortic aneurysm. BOWEL: Left of midline ileostomy. Multiple mildly distended loops of bowel without elmira obstruction. APPENDIX: Unremarkable. Normal appendix. PERITONEUM: Extensive abdominal ascites. Mild pneumoperitoneum noted. LYMPH NODES: Re-demonstration of extensive abdominal pelvic lymphadenopathy. BLADDER: Ventura catheter in bladder.. REPRODUCTIVE: Unremarkable. BONES: No acute fracture. OTHER FINDINGS: NG tube in stomach.. IMPRESSION: New extensive bilateral consolidation at the lung bases. Extensive abdominal ascites with pneumoperitoneum. Stable right hydronephrosis and extensive abdominal pelvic lymphadenopathy.
--- NOTE | 2017-02-14 11:15 | CT ---
PROCEDURE: CT Chest without contrast HISTORY: r/o lung nodule COMPARISON: None. TECHNIQUE: Contiguous axial images were obtained through the chest without intravenous contrast enhancement. Sagittal and coronal reconstructions were performed. Radiation dose (DLP): mGy-cm. This CT exam was performed using one or more of the following dose reduction techniques: Automated exposure control, adjustment of the mA and/or kV according to patient size, and/or use of iterative reconstruction technique. FINDINGS: LUNGS: Diffuse bilateral interstitial infiltrates with extensive bibasilar consolidation. MEDIASTINUM: Unremarkable thoracic aorta. No aneurysm. Normal sized heart. Main pulmonary artery unremarkable. No vascular congestion. Extensive bilateral hilar and mediastinal lymphadenopathy. PLEURA: No pleural fluid. No pneumothorax. BONES: No fracture. No destructive lesion. UPPER ABDOMEN: See report. OTHER FINDINGS: ETT above the siddharth. Right CVP line tip in the SVC. IMPRESSION: Interstitial infiltrates with extensive bibasilar consolidation. Extensive bilateral and mediastinal lymphadenopathy.
[2017-02-14] MEDS ORDERED: Midazolam 5 MG/5 ML VIAL IVP ONE (11:43)
[2017-02-14] MEDS ORDERED: EPINEPHrine- 1 MG in Sodium Chloride 0.9% 50 ML IV PRN (11:55)
[2017-02-14] MEDS: Midazolam 100 mg/100ml in NS 100 MG/100 ML SOL IV PRN (12:51)
[2017-02-14] MEDS: Sodium Bicarbonate 8.4% 150 MEQ in Dextrose 5% In Water 1,000 ML IV SCH ×2 (13:25→23:45)
[2017-02-14] MEDS: EPINEPHrine- 1 MG in Sodium Chloride 0.9% 50 ML IV PRN ×3 (13:27→21:00)
--- NOTE | 2017-02-14 13:40 | CARD ---
APPROVED REPORT EXAM: Two-dimensional and M-mode echocardiogram with Doppler and color Doppler. INDICATION LV Function:SystolicDiastolic 2D DIMENSIONS Left Atrium (2D)3.3 (1.6-4.0cm)IVSd0.8 (0.7-1.1cm) Aortic Root (2D)3.1 (2.0-3.7cm)LVDd4.7 (3.9-5.9cm) PWd0.8 (0.7-1.1cm)LVDs3.6 (2.5-4.0cm) FS (%) 22.6 %LVEF (%)40.0 (>50%) M-Mode DIMENSIONS Aortic Cusp Exc.2.20 (1.5-2.0cm) Aortic Valve AoV Peak Mqcfpdtw48.4cm/Gasper Peak GR.3mmHg Mitral Valve MV E Qdstgwwp03.7cm/sMV A [place]05.9cm/sE/A ratio1.4 TDI Lateral E' Peak V10.20cm/sMedial E' Peak V5.17cm/sE/Lateral E'7.3 E/Medial E'14.4 Pulmonary Valve PV Peak Lrqgoxlc33.2cm/sPV Peak Grad.3mmHg Tricuspid Valve TR Peak Htfemxxw477il/sRAP BZIUHLCT4ziWdDP Peak Gr.27mmHg [id number] LEFT VENTRICLE The left ventricle is normal size. There is normal left ventricular wall thickness. The systolic function is moderately impaired. There is global hypokinesis of the left ventricle. The left ventricular diastolic function is normal. RIGHT VENTRICLE The right ventricle is borderline dilated. There is normal right ventricular wall thickness. RV Systolic function is moderately reduced. ATRIA The left atrium size is normal. The right atrium size is normal. AORTIC VALVE The aortic valve is normal in structure. MITRAL VALVE Mitral regurgitation is trace. TRICUSPID VALVE There is mild tricuspid regurgitation. GREAT VESSELS The aortic root is normal in size. The IVC collapses <50% with inspiration. PERICARDIAL EFFUSION There is a trace loculated anterior pericardial effusion. <Conclusion> The left ventricle is normal size. There is normal left ventricular wall thickness. The systolic function is moderately impaired. There is global hypokinesis of the left ventricle. RV Systolic function is moderately reduced. There is mild tricuspid regurgitation.
--- NOTE | 2017-02-14 14:07 | CP.PCM.PN ---
Addendum entered and electronically signed by Jada Cohen DO 02/14/17 16:10: Patient is currently being transfused 4 units of PRBC and FFP. Her platelets are noted to be decreased this morning. Original Note: <Jada Cohen - Last Filed: 02/14/17 15:42> Subjective - Date & Time of Evaluation Date of Evaluation: 02/14/17 Time of Evaluation: 14:03 - Subjective Subjective: HOSPITALISTS PROGRESS NOTE Pt is seen and examined at bedside. Patient was taken for colonscopy yesterday. Per GI note and nurses note, scope was not done due to poor prep and inability to advance scope. Overnight, patient became hypoxic . She was transferred to ICU. This morning, patient was still in acute respiratory distress with hemodynamic instability. Triple lumen catheter was placed and then she was intubated. Before being intubated, patient stated to contact mother. ICU resident finally reached patient's mother and she was made aware of the situation. Currently patient is full code. ROS were unobtainable as patient was in distress. Objective - Vital Signs/Intake and Output Vital Signs (last 24 hours): Temp Pulse Resp BP Pulse Ox 98.6 F 93 H 22 87/70 L 98 02/14/17 04:00 02/14/17 13:40 02/14/17 06:40 02/14/17 13:40 02/14/17 13:40 Intake and Output: 02/14/17 02/14/17 06:59 18:59 Intake Total 4130 220 Output Total 150 Balance 3980 220 - Medications Medications: Current Medications Acetaminophen (Tylenol 325mg Tab) 650 mg PO Q6 PRN PRN Reason: Fever >100.4 F Last Admin: 02/13/17 07:07 Dose: 650 mg Arformoterol Tartrate (Brovana) 15 mcg IH [id number] [facility] Last Admin: 02/14/17 08:15 Dose: Not Given Budesonide (Pulmicort Respules) 0.5 mg IH [id number] [facility] Last Admin: 02/14/17 08:15 Dose: Not Given Clonazepam (Klonopin) 1 mg PO BID [facility] PRN Reason: Protocol Last Admin: 02/14/17 10:00 Dose: Not Given Gabapentin (Neurontin) 800 mg PO QID [facility] Last Admin: 02/14/17 13:29 Dose: Not Given Heparin Sodium (Porcine) (Heparin) 5,000 units SC Q8 [facility] PRN Reason: Protocol Last Admin: 02/14/17 05:36 Dose: Not Given Hydrocortisone Sodium Succinate (Solu-Cortef) 50 mg IVP Q6H [facility] Last Admin: 02/14/17 13:31 Dose: 50 mg Sodium Chloride (Sodium Chloride 0.9%) 1,000 mls @ 75 mls/hr IV .[id number] [facility] Last Admin: 02/13/17 03:33 Dose: 75 mls/hr Vancomycin HCl (Vancomycin 500mg In Ns) 500 mg in 100 mls @ 200 mls/hr IVPB Q12 [facility] PRN Reason: Protocol Last Admin: 02/14/17 11:21 Dose: 200 mls/hr Sodium Chloride (Sodium Chloride 0.9%) 1,000 mls @ 125 mls/hr IV .Q8H [facility] Last Admin: 02/14/17 02:00 Dose: 125 mls/hr Acetaminophen (Ofirmev) 1,000 mg in 100 mls @ 400 mls/hr IVPB Q6H PRN PRN Reason: Temperature Stop: 02/16/17 02:07 Last Admin: 02/14/17 02:20 Dose: 400 mls/hr NOREPINEPHRINE BIT/0.9 % NACL (Levophed 4 Mg/ 250 Ml Ns Premixed) 4 mg in 250 mls @ 15 mls/hr IV .[id number] PRN; Protocol; 4 MCG/MIN PRN Reason: TITRATE PER MD ORDER Last Titration: 02/14/17 13:29 Dose: 20 mcg/min, 75 mls/hr Vasopressin 20 units/ Dextrose 101 mls @ 9.09 mls/hr IV .Q11H7M RAOUL; 0.03 U/MIN PRN Reason: Protocol Last Admin: 02/14/17 09:28 Dose: 9.09 mls/hr Fentanyl Citrate (Fentanyl Citrate/Sodium Chloride 1 Mg/100 Ml) 1,000 mcg in 100 mls @ 7.5 mls/hr IV .[id number] PRN; Protocol; 75 MCG/HR PRN Reason: TITRATE PER MD ORDER Last Admin: 02/14/17 13:43 Dose: 75 mcg/hr, 7.5 mls/hr Sodium Bicarbonate 150 meq/ (Dextrose) 1,150 mls @ 150 mls/hr IV .Q7H40M [facility] Last Admin: 02/14/17 13:25 Dose: 150 mls/hr Midazolam 100 mg/100ml in NS (Midazolam 100 Mg/100ml In Ns) 100 mg in 100 mls @ 7 mls/hr IV .[id number] PRN; Protocol; 7 MG/HR PRN Reason: Agitation Last Admin: 02/14/17 12:51 Dose: 7 mg/hr, 7 mls/hr Epinephrine HCl 1 mg/ Sodium (Chloride) 51 mls @ 3.06 mls/hr IV .[id number] PRN; Protocol; 1 MCG/MIN PRN Reason: TITRATE PER MD ORDER Last Titration: 02/14/17 13:28 Dose: 5 mcg/min, 15.3 mls/hr Midazolam HCl (Versed Inj) 2 mg IVP Q4H PRN PRN Reason: Agitation Last Admin: 02/14/17 09:40 Dose: 2 mg Ondansetron HCl (Zofran Inj) 4 mg IVP Q6 PRN PRN Reason: Nausea/Vomiting Last Admin: 02/13/17 16:26 Dose: 4 mg Oxycodone HCl (Oxycodone Immediate Release Tab) 15 mg PO Q4 PRN PRN Reason: Pain, moderate (4-7) Last Admin: 02/14/17 00:59 Dose: 15 mg Oxycodone HCl (Oxycontin Extended Release Tab) 60 mg PO Q12H PRN PRN Reason: Pain, moderate (4-7) Last Admin: 02/13/17 18:52 Dose: 60 mg Pantoprazole Sodium (Protonix Ec Tab) 40 mg PO DAILY [facility] Last Admin: 02/13/17 09:43 Dose: 40 mg Pantoprazole Sodium (Protonix Inj) 40 mg IVP DAILY [facility] Last Admin: 02/14/17 11:55 Dose: 40 mg - Labs Labs: 02/14/17 09:04 02/14/17 09:04 PT 22.5 Seconds (9.9-11.8) H 02/14/17 09:04 INR 2.08 (0.93-1.08) H 02/14/17 09:04 APTT 45.0 Seconds (23.7-30.8) H 02/14/17 09:04 - Constitutional Appears: Non-toxic, No Acute Distress - Head Exam Head Exam: ATRAUMATIC - Respiratory Exam Respiratory Exam: Accessory Muscle Use, Respiratory Distress - Cardiovascular Exam Cardiovascular Exam: Tachycardia - GI/Abdominal Exam GI & Abdominal Exam: Distended, Firm, Guarding, Rigid, Tenderness - Extremities Exam Extremities Exam: absent: Pedal Edema, Tenderness - Neurological Exam Neurological Exam: Oriented x3 - Skin Skin Exam: Dry, Intact Assessment and Plan - Assessment and Plan (Free Text) Assessment: 51 year old female with past medical history of Crohns disease, asthma, bipolar disorder, polysubstance abuse and recent diagnoses of adenocarcinoma of the colon is in septic shock currently in ICU. Patient is intubated on PRVC. 1. Septic shock 2/2 abdominal perforation vs. PNA - Patient is currently on dobutamine, epinephrine, versed and vassopressin - She is also on bicarb drip and sulocortef - Continue abx: vancomycin 2. Acute abdomen - CT of abdomen showed new extensive B/L consolidations at lung bases. Extensive abdominal ascites and pneumoperitoneum. Stable R hydronephrosis and extensive abdominal pelvic lymphadenopathy - Surgery is consulted. Awaiting further recs - Will continue to monitor 3. Adenocarcinoma of colon: consulted heme/onc. Ct of chest shows interstitial infiltrates with extensive bibasilar consolidations. Extensive B/L and medistinal LAD. 4. Normocytic anemia Iron studies show high iron, low TIBC and high % saturation. High iron level may be due to recent transfusion Pt scheduled for colonoscopy today 5. Polysubstance abuse: UDS is positive for opiates, benzos, cocaine 6. Thrombocytopenia likely due to DIC D dimer is noted to be more elevated than on last admission (.73 to 28 now). Platelets are currently stable. Prophylaxis: Protonix. SCDs. Case discussed with attending, Dr. Haley <Cristina Haley - Last Filed: 02/14/17 17:43> Objective - Vital Signs/Intake and Output Vital Signs (last 24 hours): Temp Pulse Resp BP Pulse Ox 98.6 F 97 H 31 H 96/71 L 97 02/14/17 04:00 02/14/17 17:22 02/14/17 17:22 02/14/17 17:12 02/14/17 17:12 Intake and Output: 02/14/17 02/14/17 06:59 18:59 Intake Total 4130 320 Output Total 150 Balance 3980 320 - Medications Medications: Current Medications Arformoterol Tartrate (Brovana) 15 mcg IH [id number] [facility] Last Admin: 02/14/17 08:15 Dose: Not Given Budesonide (Pulmicort Respules) 0.5 mg IH [id number] [facility] Last Admin: 02/14/17 08:15 Dose: Not Given Clonazepam (Klonopin) 1 mg PO BID [facility] PRN Reason: Protocol Last Admin: 02/14/17 10:00 Dose: Not Given Gabapentin (Neurontin) 800 mg PO QID [facility] Last Admin: 02/14/17 13:29 Dose: Not Given Heparin Sodium (Porcine) (Heparin) 5,000 units SC Q8 [facility] PRN Reason: Protocol Last Admin: 02/14/17 05:36 Dose: Not Given Hydrocortisone Sodium Succinate (Solu-Cortef) 50 mg IVP Q6H [facility] Last Admin: 02/14/17 13:31 Dose: 50 mg Sodium Chloride (Sodium Chloride 0.9%) 1,000 mls @ 75 mls/hr IV .[id number] [facility] Last Admin: 02/13/17 03:33 Dose: 75 mls/hr Vancomycin HCl (Vancomycin 500mg In Ns) 500 mg in 100 mls @ 200 mls/hr IVPB Q12 [facility] PRN Reason: Protocol Last Admin: 02/14/17 11:21 Dose: 200 mls/hr Sodium Chloride (Sodium Chloride 0.9%) 1,000 mls @ 125 mls/hr IV .Q8H [facility] Last Admin: 02/14/17 02:00 Dose: 125 mls/hr Acetaminophen (Ofirmev) 1,000 mg in 100 mls @ 400 mls/hr IVPB Q6H PRN PRN Reason: Temperature Stop: 02/16/17 02:07 Last Admin: 02/14/17 02:20 Dose: 400 mls/hr NOREPINEPHRINE BIT/0.9 % NACL (Levophed 4 Mg/ 250 Ml Ns Premixed) 4 mg in 250 mls @ 15 mls/hr IV .[id number] PRN; Protocol; 4 MCG/MIN PRN Reason: TITRATE PER MD ORDER Last Admin: 02/14/17 14:46 Dose: 20 mcg/min, 75 mls/hr Vasopressin 20 units/ Dextrose 101 mls @ 9.09 mls/hr IV .Q11H7M RAOUL; 0.03 U/MIN PRN Reason: Protocol Last Admin: 02/14/17 09:28 Dose: 9.09 mls/hr Fentanyl Citrate (Fentanyl Citrate/Sodium Chloride 1 Mg/100 Ml) 1,000 mcg in 100 mls @ 7.5 mls/hr IV .[id number] PRN; Protocol; 75 MCG/HR PRN Reason: TITRATE PER MD ORDER Last Admin: 02/14/17 13:43 Dose: 75 mcg/hr, 7.5 mls/hr Sodium Bicarbonate 150 meq/ (Dextrose) 1,150 mls @ 150 mls/hr IV .Q7H40M [facility] Last Admin: 02/14/17 13:25 Dose: 150 mls/hr Midazolam 100 mg/100ml in NS (Midazolam 100 Mg/100ml In Ns) 100 mg in 100 mls @ 7 mls/hr IV .[id number] PRN; Protocol; 7 MG/HR PRN Reason: Agitation Last Admin: 02/14/17 12:51 Dose: 7 mg/hr, 7 mls/hr Epinephrine HCl 1 mg/ Sodium (Chloride) 51 mls @ 3.06 mls/hr IV .[id number] PRN; Protocol; 1 MCG/MIN PRN Reason: TITRATE PER MD ORDER Last Titration: 02/14/17 13:28 Dose: 5 mcg/min, 15.3 mls/hr Dobutamine HCl/Dextrose (Dobutamine/Dextrose 5% 500mg/250ml) 500 mg in 250 mls @ 3.844 mls/hr IV .Q24H PRN; Protocol; 2.5 MCG/KG/MIN PRN Reason: TITRATE PER PROTOCOL Last Admin: 02/14/17 14:47 Dose: 3.844 mls/hr Meropenem 1g/NS 100mL IVPB (Meropenem 1g/Ns 100ml Ivpb) 1 gm in 100 mls @ 100 mls/hr IVPB Q8 [facility]OUL PRN Reason: Protocol Stop: 02/14/17 22:59 Midazolam HCl (Versed Inj) 2 mg IVP Q4H PRN PRN Reason: Agitation Last Admin: 02/14/17 09:40 Dose: 2 mg Ondansetron HCl (Zofran Inj) 4 mg IVP Q6 PRN PRN Reason: Nausea/Vomiting Last Admin: 02/13/17 16:26 Dose: 4 mg Oxycodone HCl (Oxycodone Immediate Release Tab) 15 mg PO Q4 PRN PRN Reason: Pain, moderate (4-7) Last Admin: 02/14/17 00:59 Dose: 15 mg Oxycodone HCl (Oxycontin Extended Release Tab) 60 mg PO Q12H PRN PRN Reason: Pain, moderate (4-7) Last Admin: 02/13/17 18:52 Dose: 60 mg Pantoprazole Sodium (Protonix Ec Tab) 40 mg PO DAILY [facility] Last Admin: 02/13/17 09:43 Dose: 40 mg Pantoprazole Sodium (Protonix Inj) 40 mg IVP DAILY [facility] Last Admin: 02/14/17 11:55 Dose: 40 mg - Labs Labs: 02/14/17 09:04 02/14/17 09:04 PT 22.5 Seconds (9.9-11.8) H 02/14/17 09:04 INR 2.08 (0.93-1.08) H 02/14/17 09:04 APTT 45.0 Seconds (23.7-30.8) H 02/14/17 09:04 Attending/Attestation - Attestation I have personally seen and examined this patient.: Yes I have fully participated in the care of the patient.: Yes I have reviewed all pertinent clinical information, including history, physical exam and plan: Yes Notes (Text): 02/14/17 17:39 attending note; Patient seen and examined with resident in icu. the patient was transferred to ICU last night due to hypotension and hypoxia. Patient is lethargic. Got intubated. started on pressors. Septic shock; continue IV pressors as per glass sander. CT abdomen and pelvis showed Pneumoperitoneum and extensive hilar mediastinal lymphadenopathy. case discussed with surgery in detail. Currently getting PRBC, FFp and platelet transfusion. case discussed with Dr. Lucas in detail. Thrombocytopenia; Rule out HIT versus DIC. will follow-up with oncology closely. the diagnosis and treatment plan discussed with patient's mother in detail. prognosis is poor.
--- NOTE | 2017-02-14 14:23 | CON ---
DATE: 02/14/2017 REASON FOR CONSULTATION: Acute kidney injury, severe anemia, acute abdomen. 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 She was found to have severe anemia. She also reported intermittent bloody stool. There was no history provided of hematemesis, hematuria or hemoptysis. She was found to have a fluid collection and a rectal mass. She underwent a colonoscopy for evaluation of her rectal bleeding. Colonoscopy reported a severe s tenosis in the rectosigmoid colon, which was not transversed and the procedure was aborted. She was found to have free air, possibility of rupture, acute abdomen. Also found to have severe anemia. He moglobin of 5. Consultation is requested for acute kidney injury. Her creatinine was 1.4 on the 2nd , it has risen to 2.3 today. The patient is currently seen in the ICU. She is very pale. She also appears icteric. Intubated ea rlier. Currently unresponsive, sedated on mechanical ventilation. Surgery is being consulted for possible laparotomy for acute abdomen. She does have a history of an intra-abdominal abscess and history of laparotomy in November. She does have a colostomy. PAST MEDICAL AND SURGICAL HISTORY: Crohn's disease, bipolar disorder, asthma, polysubstance abuse, a denocarcinoma of the colon, right hemicolectomy, perirectal abscess drainage, colostomy. FAMILY HISTORY: Noncontributory. SOCIAL HISTORY: Heavy smoking, alcohol use, IV drug abuse. ALLERGIES: MORPHINE. MEDICATIONS: At this time, norepinephrine, Protonix IV, IV fluids with sodium bicarbonate, vancomyci n 500 q. 12, vasopressin, Versed, Zofran. REVIEW OF SYSTEMS: Unavailable as patient is currently sedated, on mechanical ventilation, unrespons forest on the ICU. PHYSICAL EXAMINATION: GENERAL: A young woman lying in bed, appears very pale and icteric. VITAL SIGNS: Blood pressure 89/53, heart rate 110, respiratory rate 22, temperature 98.6, T-max is 1 01.3. HEENT: Normocephalic, atraumatic, positive pallor, positive icterus. NECK: Supple, no JVD. LUNGS: Bilateral equal air entry, bilateral equal expansion, no rales, no rhonchi. CARDIAC: S1, S2, regular rate and rhythm, no murmur, no rub. ABDOMEN: Obese, distended, left-sided colostomy, rigid, bowel sounds sluggish. EXTREMITIES: 1+ edema of the lower extremities. INTAKE AND OUTPUT: 4130/150. LABORATORY DATA: WBC 5.1, hemoglobin 5.4, hematocrit 16, platelets 33. Sodium 138, potassium 4.5, c hloride 112, CO2 18, BUN 28, creatinine 2.3, glucose 67, calcium 8.3. Lactic acid 3.0. AST 183, ALT 55, LDH 3878. Troponin 0.76, albumin 1.9, corrected calcium is 9.7. Urinalysis: Yellow, turbid, p H 6.0, specific gravity greater than 1.030, protein 100, blood trace. Urine toxicology positive for opiates, benzodiazepine, and cocaine. ABG: pH 7.27, pCO2 34, pO2 162. CURRENT MEDICATIONS: Brovana, Fentanyl IV, Klonopin, Levophed, Neurontin, Protonix, sodium chloride at 125, Solu-Cortef, Tylenol, vancomycin 500 q. 12, vasopressin, Zofran. ASSESSMENT AND PLAN: A 51-year-old lady with past medical and surgical history of Crohn's disease, a sthma, anxiety, bipolar disorder, multi-substance abuse, recently diagnosed mucinous adenocarcinoma o f the colon, intra-abdominal abscess, laparotomy, hemicolectomy, colostomy, now with gastrointestinal bleed, severe anemia, circulatory shock, hypotension, severe mixed metabolic acidosis, severe anemia , acute kidney injury, acute abdomen, perforation suspect, multiorgan failure. The patient is critically ill. 1. Severe anemia, hemoglobin of 5.4, suspected gastrointestinal bleed. 2. Perforation, free air in the abdomen, acute abdomen. 3. Mixed metabolic acidosis, hypercapnic respiratory acidosis and metabolic acidosis, lactic acidosi s. 4. Acute kidney injury, oligoanuric acute kidney injury. 5. Circulatory shock, hypotension, tachycardia, volume depletion. 6. Mucinous adenocarcinoma of the colon. 7. History of Crohn's disease. 8. Bipolar disorder. 9. Multisubstance abuse. 10. Ischemic hepatopathy. 11. Acute coronary syndrome? 12. Thrombocytopenia. PLAN: 1. Aggressive fluid resuscitation, crystalloids and colloids. 2. Transfuse to hemoglobin of at least 9. 3. Continue inotropic support. 4. Cardiology evaluation. 5. Broad spectrum antibiotics to cover for gastrointestinal source. 6. Dose all antibiotics for creatinine clearance about 10 mL per minute. 7. Surgical evaluation on board. 8. The patient is critically ill, prognosis is extremely guarded. Case is discussed with ICU residents at bedside, case is discussed with ICU attending, case is discus sed with surgical nurse. More than 35 minutes was spent in the care of this critically ill patient. Lucinda Kelley MD cc: [phone] TT: 02/14/2017 14:23:02 Confirmation # [id number] Dictation # [id number] denise
[2017-02-14] MEDS: DOBUTamine 500mg/250ml D5W 500 MG/250 ML BAG IV PRN (14:47)
--- NOTE | 2017-02-14 15:46 | CARD ---
APPROVED REPORT EKG Measurement Heart [id number] <Conclusion> Normal sinus rhythm Nonspecific T wave abnormality Abnormal ECG
--- NOTE | 2017-02-14 15:49 | CARD ---
APPROVED REPORT EKG Measurement Heart [id number] PA [id number] [id number] <Conclusion> Sinus tachycardia Nonspecific T wave abnormality Abnormal ECG
[2017-02-14 17:31] LABS: ABG MECHANICAL RATE 30; ARTERIAL BLOOD GAS HCO3 11.5 mmol/L (21-28); ARTERIAL BLOOD GAS PH 7.27 (7.35-7.45); ATERIAL BLOOD GAS PEEP 5
[2017-02-14 17:37] LABS: ADD MANUAL DIFF? NO
[2017-02-14] MEDS: Meropenem 1g/NS 100mL IVPB 1 GM/100 ML PIGGYBACK IVPB SCH ×2 (17:40→22:00)
[2017-02-14 17:44] LABS: BASO # 0.21 K/mm3 (0.0-2.0); BASO % 4.8 % (0.0-3.0); EOS # 0.1 (0.0-0.7); EOS % 2.8 % (1.5-5.0); GRAN # 1.21 (1.4-6.5); HEMATOCRIT 31.5 % (36.0-48.0); LYMPH # 2.6 (1.2-3.4); LYMPH % 59.6 % (22.0-35.0); MEAN CELL VOLUME 85.8 fL (80.0-105.0); MEAN CORPUSCULAR HEMOGLOBIN 28.9 pg (25.0-35.0); MEAN CORPUSCULAR HGB CONC 33.7 g/dl (31.0-37.0); MEAN PLATELET VOLUME 10.7 fl (7.0-11.0); MONO # 0.2 (0.1-0.6); MONO % 4.8 % (1.0-6.0); PLATELET COUNT 111 10^3/uL (120.0-450.0); RED CELL DISTRIBUTION WIDTH 15.8 % (11.5-14.5); WHITE BLOOD COUNT 4.3 10^3/ul (4.5-11.0)
[2017-02-14 17:50] LABS: CALCIUM 8.3 mg/dL (8.4-10.5)
--- NOTE | 2017-02-14 17:51 | CON ---
DATE: 02/14/2017 HISTORY OF PRESENT ILLNESS: This is a 51-year-old lady with history of inflammatory bowel disease, status post colostomy several months ago who had a history of colon CA and who had failed attempt at colonoscopy yesterday. It appeared that patient had very stenosed anorectal segment which was impossible to pass with endoscope. Procedure was aborted and patient was returned to medical floor yesterday. Over the period of next 6 - 8 hours, patient's condition deteriorated. She became more altered, hypotensive and her breathing became more labored. The patient was transferred to ICU for hemodynamic and ventilatory support. Her blood pressure deteriorated. She received some fluid boluses; however, blood pressure did not improve and central line was placed for vasopressor therapy. The patient had become more and more altered, her breathing became labored and she was not able to protect her airways and was in visible respiratory distress and was intubated for impending respiratory failure. Subsequent CAT scan of the abdomen and pelvis revealed free air with multiple lymphadenopathy and ascites. NG tube was placed and almost a liter of bilious secretions was suctioned out. No chest pain, no constipation, no fever , chills or sweats. PAST MEDICAL HISTORY: Crohn's disease, asthma, bipolar disorder, polysubstance abuse, adenocarcinoma of the colon. SURGICAL HISTORY: Right hemicolectomy, perirectal abscess drainage, colostomy. FAMILY HISTORY: Noncontributory. SOCIAL HISTORY: The patient has heavy alcohol and tobacco abuse and illicit drug abuse. CURRENT MEDICATIONS: Tylenol p.r.n., Brovana, Pulmicort, Klonopin on hold, dobutamine, epinephrine, fentanyl drip, hydrocortisone 50 mg IV q. 6, Versed drip, norepinephrine, Zofran p.r.n., Protonix IV daily, bicarbonate at 150 mL per hour, vancomycin, vasopressin. LABORATORY DATA: WBC 5.1, hemoglobin 5.4 (4 units of PRBC has been transfused) , platelet count 33 (2 bags of platelets were transfused). Sodium 138, potassium 4.5, chloride 112, carbon dioxide 18, BUN 28, creatinine 2.3, glucose 83. Lactic acid 3, down from 5.4 yesterday. Troponin 0.76. CAT scan of the abdomen and pelvis revealed new extensive bilateral consolidation in the lung bases, extensive abdominal ascites with pneumoperitoneum, stable right hydronephrosis and extensive abdominal pelvic lymphadenopathy. Echocardiogram (on 20 mcg per minute of Levophed and vasopressin 0.02 units per minute) revealed moderately impaired left ventricular systolic dysfunction, global hypokinesis of the left ventricle and ejection fraction 22%. ASSESSMENT AND PLAN: This is a 51-year-old lady with septic shock with multiorgan system failure including acute kidney injury, septic encephalopathy, respiratory failure, septic cardiomyopathy, DIC who is presently on ventilatory and vasopressor support. Source of infection is intra-abdominal/peritonitis. Neuro: The patient is sedated with fentanyl and Versed, she appears to be comfortable. Occasionally arousable but synchronous with the ventilator. Pulmonary: The patient is on strict protective lung ventilation strategy with tidal volume 6 mL per predicted body weight. She is on PRVC 340/30/5/50%. The patient is borderline hypotensive despite multiple pressor and inotropic support and does not require high FIO2, thus we will be careful with further increase in PEEP until the patient is fully fluid resuscitated. We will continue with head of bed elevated more than 35 degrees. We will continue with VAP bundle. At present time, the patient is getting fluid and blood products; however, once shock resolved, we will adhere to conservative fluid management. We will also adhere with conservative oxygen management. Once shock resolved, we will consider daily weaning trials and sedation medications. Cardiovascular: The patient is in distributive shock with septic cardiomyopathy and low LV ejection fraction. At present time, the patient is on norepinephrine 20 mcg per minute, epinephrine at 5 mcg per minute and dobutamine 2.5 mcg per kilogram per minute. The patient is also on vasopressin 0.03 units per minute. Slight troponin leak is most likely due to septic cardiomyopathy and less likely primary cardiac event. The fact that there is global hypokinesis and not regional wall motion abnormalities, favors the fact that it probably septic cardiomyopathy rather than primary cardiac event/ coronary event. We will get cardiology consult as well. Gastrointestinal: The patient has free air in the abdominal area. Surgical consult was requested and I am in constant contact with Dr. Marti, who requested to correct coagulopathy and thrombocytopenia before consideration of emergent surgery. The patient is getting blood products (4 PRBC, 4 FFP, 2 platelets) to reverse coagulopathy/DIC. Once patient is fluid resuscitated and blood pressure is stabilized as well as coagulopathy reversed, consideration will be given to surgical intervention. However, decision about this step will be deferred to surgical team. The patient is on gastrointestinal prophylaxis. NG tube on suction and about a liter of gastric secretions was suctioned out. Endocrine: We will proceed with blood glucose in at 140-180 range according to NICE-SUGAR trial. We will avoid hypoglycemia. The patient is also on stress dose steroids and bicarbonate drip (D5W based). Renal: The patient had acute kidney injury, most likely due to acute tubular necrosis and has severe metabolic acidosis. At present time, we will proceed with fluid resuscitation and vasopressor support to maintain renal perfusion, avoiding nephrotoxic medication, but not at the expense of treating underlying disease. We will continue with euglycemia and euvolemia. We will continue with bicarbonate drip. We will get nephrology consult for consideration for renal replacement therapy. ID: The patient is in septic shock requiring significant vasopressor and ventilatory support. ID consult requested. The patient is on broad-spectrum antibiotics. Blood culture and urine culture and Procalcitonin were ordered. The patient is leukopenic Hem/Onc: DIC due to septic shock. pancytopenia. See above We will continue with mechanical deep venous thrombosis prophylaxis. We will continue with gastrointestinal prophylaxis. ccm time 40 min Van Lopez MD cc: [id number] TT: 02/14/2017 17:50:59 Confirmation # [id number] Dictation # [id number] MTDD
[2017-02-14 18:01] LABS: INR 1.52 (0.93-1.08); PARTIAL THROMBOPLASTIN TIME 31.3 Seconds (23.7-30.8)
[2017-02-14 18:27] LABS: POTASSIUM 6.2 mmol/L (3.6-5.0)
[2017-02-14] MEDS ORDERED: Insulin Regular 1 UNITS/0.01 ML ML IV STA (18:32)
[2017-02-14 18:37] LABS: FIBRINOGEN 257.4 mg/dL (187-400)
[2017-02-14 18:49] LABS: TROPONIN I 0.41 ng/mL
--- NOTE | 2017-02-14 19:14 | CP.PCM.CON ---
History of Present Illness - History of Present Illness History of Present Illness: Infectious Disease Consultation: February 14, 2017 50 yo female with history of Crohn's disease admitted for groin and abdominal pain. She was recently discharged from the hospital with doxycycline and augmentin. During the hospitalization the patient short of breath, tachycardic , and tachypnic. Patient became hypotensive and required admission to the MICU. The patient required pressors and intubation and ventilation. The patient is on 4 pressors and received 4 units of PRBCs and FFPs. Very poor prognosis. PMHx: Crohn's disease, Psoriasis, Asthma, Anxiety, Depression, Bipolar disease, drug ( cocaine and heroin) and alcohol abuse, adenocarcinoma of colonic origin. PSHx: right hemicolectomy without stoma, Perirectal abscess drainage in June 2016 Allergies: Morphine Social Hx: Heavy tobacco, EtOH, and Cocaine use Active Medications Arformoterol Tartrate (Brovana) 15 mcg IH [id number] [facility] Last Admin: 02/14/17 08:15 Dose: Not Given Budesonide (Pulmicort Respules) 0.5 mg IH [id number] [facility] Last Admin: 02/14/17 08:15 Dose: Not Given Clonazepam (Klonopin) 1 mg PO BID RAOUL PRN Reason: Protocol Last Admin: 02/14/17 10:00 Dose: Not Given Gabapentin (Neurontin) 800 mg PO QID [facility] Last Admin: 02/14/17 13:29 Dose: Not Given Heparin Sodium (Porcine) (Heparin) 5,000 units SC Q8 RAOUL PRN Reason: Protocol Last Admin: 02/14/17 05:36 Dose: Not Given Hydrocortisone Sodium Succinate (Solu-Cortef) 50 mg IVP Q6H [facility] Last Admin: 02/14/17 13:31 Dose: 50 mg Sodium Chloride (Sodium Chloride 0.9%) 1,000 mls @ 75 mls/hr IV .[id number] [facility] Last Admin: 02/13/17 03:33 Dose: 75 mls/hr Vancomycin HCl (Vancomycin 500mg In Ns) 500 mg in 100 mls @ 200 mls/hr IVPB Q12 [facility]OU[facility] PRN Reason: Protocol Last Admin: 02/14/17 11:21 Dose: 200 mls/hr Sodium Chloride (Sodium Chloride 0.9%) 1,000 mls @ 125 mls/hr IV .Q8H [facility] Last Admin: 02/14/17 02:00 Dose: 125 mls/hr Acetaminophen (Ofirmev) 1,000 mg in 100 mls @ 400 mls/hr IVPB Q6H PRN PRN Reason: Temperature Stop: 02/16/17 02:07 Last Admin: 02/14/17 02:20 Dose: 400 mls/hr NOREPINEPHRINE BIT/0.9 % NACL (Levophed 4 Mg/ 250 Ml Ns Premixed) 4 mg in 250 mls @ 15 mls/hr IV .[id number] PRN; Protocol; 4 MCG/MIN PRN Reason: TITRATE PER MD ORDER Last Admin: 02/14/17 14:46 Dose: 20 mcg/min, 75 mls/hr Vasopressin 20 units/ Dextrose 101 mls @ 9.09 mls/hr IV .[id number] RAOUL; 0.03 U/MIN PRN Reason: Protocol Last Admin: 02/14/17 09:28 Dose: 9.09 mls/hr Fentanyl Citrate (Fentanyl Citrate/Sodium Chloride 1 Mg/100 Ml) 1,000 mcg in 100 mls @ 7.5 mls/hr IV .[id number] PRN; Protocol; 75 MCG/HR PRN Reason: TITRATE PER MD ORDER Last Admin: 02/14/17 13:43 Dose: 75 mcg/hr, 7.5 mls/hr Sodium Bicarbonate 150 meq/ (Dextrose) 1,150 mls @ 150 mls/hr IV .[id number] [facility] Last Admin: 02/14/17 13:25 Dose: 150 mls/hr Midazolam 100 mg/100ml in NS (Midazolam 100 Mg/100ml In Ns) 100 mg in 100 mls @ 7 mls/hr IV .[id number] PRN; Protocol; 7 MG/HR PRN Reason: Agitation Last Admin: 02/14/17 12:51 Dose: 7 mg/hr, 7 mls/hr Epinephrine HCl 1 mg/ Sodium (Chloride) 51 mls @ 3.06 mls/hr IV .[id number] PRN; Protocol; 1 MCG/MIN PRN Reason: TITRATE PER MD ORDER Last Titration: 02/14/17 13:28 Dose: 5 mcg/min, 15.3 mls/hr Dobutamine HCl/Dextrose (Dobutamine/Dextrose 5% 500mg/250ml) 500 mg in 250 mls @ 3.844 mls/hr IV .Q24H PRN; Protocol; 2.5 MCG/KG/MIN PRN Reason: TITRATE PER PROTOCOL Last Admin: 02/14/17 14:47 Dose: 3.844 mls/hr Meropenem 1g/NS 100mL IVPB (Meropenem 1g/Ns 100ml Ivpb) 1 gm in 100 mls @ 100 mls/hr IVPB Q8 RAOUL PRN Reason: Protocol Stop: 02/14/17 22:59 Last Admin: 02/14/17 17:40 Dose: 100 mls/hr Midazolam HCl (Versed Inj) 2 mg IVP Q4H PRN PRN Reason: Agitation Last Admin: 02/14/17 09:40 Dose: 2 mg Ondansetron HCl (Zofran Inj) 4 mg IVP Q6 PRN PRN Reason: Nausea/Vomiting Last Admin: 02/13/17 16:26 Dose: 4 mg Oxycodone HCl (Oxycodone Immediate Release Tab) 15 mg PO Q4 PRN PRN Reason: Pain, moderate (4-7) Last Admin: 02/14/17 00:59 Dose: 15 mg Oxycodone HCl (Oxycontin Extended Release Tab) 60 mg PO Q12H PRN PRN Reason: Pain, moderate (4-7) Last Admin: 02/13/17 18:52 Dose: 60 mg Pantoprazole Sodium (Protonix Ec Tab) 40 mg PO DAILY [facility] Last Admin: 02/13/17 09:43 Dose: 40 mg Pantoprazole Sodium (Protonix Inj) 40 mg IVP DAILY [facility] Last Admin: 02/14/17 11:55 Dose: 40 mg Family Hx: none given ROS: Unable to Obtain Past Patient History - Infectious Disease Hx of Infectious Diseases: None - Tetanus Immunizations Tetanus Immunization: Unknown - Past Medical History & Family History Past Medical History?: Yes - Past Social History Smoking Status: Former Smoker Chewing Tobacco Use: No Cigar Use: No Home Situation {Lives}: With Family - CARDIAC Hx Cardiac Disorders: No Hx Angina: No Hx Cardia Arrhythmia: No Hx Circulatory Problems: No Hx Congestive Heart Failure: Yes Hx Heart Murmur: No Hx Heart Transplant: No Hx Hypercholesterolemia: Yes Hx Hypertension: Yes Hx Internal Defibrillator: No Hx Mitral Valve Prolapse: No Hx Pacemaker: No Hx Peripheral Edema: No Hx Peripheral Vascular Disease: No - PULMONARY Hx Respiratory Disorders: No Hx Asthma: Yes Hx Bronchitis: No Hx Chronic Obstructive Pulmonary Disease (COPD): No Hx Emphysema: No Hx Pneumonia: Yes Hx Respiratory Aspiration: No Hx Respiratory Tract Infection: Yes Hx Sleep Apnea: No Hx Tuberculosis: No - NEUROLOGICAL Hx Neurological Disorder: No Hx Alzheimer's Disease: No HX Cerebrovascular Accident: No Hx Dementia: No Hx Dizziness: No Hx Meningitis: No Hx Migraine: No Hx Parkinson's Disease: No Hx Seizures: No Hx Transient Ischemic Attacks (TIA): No - HEENT Hx HEENT Problems: No Hx Blind: No Hx Cataracts: No Hx Deafness: No Hx Difficulty Chewing: No Hx Epistaxis: No Hx Glaucoma: No Hx Macular Degeneration: No - RENAL Hx Chronic Kidney Disease: No Hx Dialysis: No Hx Kidney Stones: No Hx Neurogenic Bladder: No Hx Pyelonephritis: No Hx Renal (Kidney) Cancer: No Hx Renal Failure: No - ENDOCRINE/METABOLIC Hx Endocrine Disorders: No Hx Adrenal Cancer: No Hx Diabetes Insipidus: No Hx Diabetes Mellitus Type 1: No Hx Diabetes Mellitus Type 2: No Hx Hyperthyroidism: No Hx Hypothyroidism: No Hx Systemic Lupus Erythematosus: No - HEMATOLOGICAL/ONCOLOGICAL Hx Blood Transfusions: No Hx Blood Transfusion Reaction: No - INTEGUMENTARY Hx Dermatological Problems: No Hx Basil Cell: No Hx Eczema: No Hx Melanoma: No Hx Psoriasis: No Hx Squamous Cell: No - MUSCULOSKELETAL/RHEUMATOLOGICAL Hx Arthritis: No Hx Back Pain: Yes Hx Degenerative Joint Disease: No Hx Falls: Yes Hx Fractures: No Hx Gout: No Hx Herniated Disk: Yes Hx Myasthenia Gravis: No Hx Osteoarthritis: No Hx Osteomyelitis: No Hx Osteoporosis: No Hx Rhabdomyolysis: No Hx Spinal Stenosis: No Hx Unsteady Gait: No - GASTROINTESTINAL Hx Colostomy: Yes Hx Crohn's Disease: Yes Hx Diverticulitis: No Hx Gall Bladder Disease: No Hx Gastroesophageal Reflux: Yes Hx Ileostomy: No Hx Liver Failure: No Hx Pancreatitis: No HX Swallowing Problems: No Hx Ulcer: No - GENITOURINARY/GYNECOLOGICAL Hx Genitourinary Disorders: No Hx Hematuria: No Hx Incontinence: No Hx Sexually Transmitted Disorders: No - PSYCHIATRIC Hx Anxiety: Yes Hx Bipolar Disorder: Yes Hx Depression: Yes Hx Emotional Abuse: No Hx Hallucinations: Yes Hx Panic Symptoms: No Hx Paranoia: No Hx Post Traumatic Stress Disorder: No Hx Psychosis: No Hx Physical Abuse: No Hx Schizophrenia: No Hx Sexual Abuse: No Hx Substance Use: Yes - SURGICAL HISTORY Hx Surgeries: Yes - ANESTHESIA Hx Anesthesia Reactions: No Hx Malignant Hyperthermia: No Meds Allergies/Adverse Reactions: Allergies Allergy/AdvReac Type Severity Reaction Status Date / Time morphine Allergy RASH Verified 02/11/17 09:22 - Medications Medications: Current Medications Arformoterol Tartrate (Brovana) 15 mcg IH [id number] [facility] Last Admin: 02/14/17 08:15 Dose: Not Given Budesonide (Pulmicort Respules) 0.5 mg IH [id number] [facility] Last Admin: 02/14/17 08:15 Dose: Not Given Clonazepam (Klonopin) 1 mg PO BID [facility] PRN Reason: Protocol Last Admin: 02/14/17 10:00 Dose: Not Given Gabapentin (Neurontin) 800 mg PO QID [facility] Last Admin: 02/14/17 13:29 Dose: Not Given Heparin Sodium (Porcine) (Heparin) 5,000 units SC Q8 [facility]OU[facility] PRN Reason: Protocol Last Admin: 02/14/17 05:36 Dose: Not Given Hydrocortisone Sodium Succinate (Solu-Cortef) 50 mg IVP Q6H [facility] Last Admin: 02/14/17 13:31 Dose: 50 mg Sodium Chloride (Sodium Chloride 0.9%) 1,000 mls @ 75 mls/hr IV .[id number] [facility] Last Admin: 02/13/17 03:33 Dose: 75 mls/hr Vancomycin HCl (Vancomycin 500mg In Ns) 500 mg in 100 mls @ 200 mls/hr IVPB Q12 [facility] PRN Reason: Protocol Last Admin: 02/14/17 11:21 Dose: 200 mls/hr Sodium Chloride (Sodium Chloride 0.9%) 1,000 mls @ 125 mls/hr IV .Q8H [facility] Last Admin: 02/14/17 02:00 Dose: 125 mls/hr Acetaminophen (Ofirmev) 1,000 mg in 100 mls @ 400 mls/hr IVPB Q6H PRN PRN Reason: Temperature Stop: 02/16/17 02:07 Last Admin: 02/14/17 02:20 Dose: 400 mls/hr NOREPINEPHRINE BIT/0.9 % NACL (Levophed 4 Mg/ 250 Ml Ns Premixed) 4 mg in 250 mls @ 15 mls/hr IV .[id number] PRN; Protocol; 4 MCG/MIN PRN Reason: TITRATE PER MD ORDER Last Admin: 02/14/17 14:46 Dose: 20 mcg/min, 75 mls/hr Vasopressin 20 units/ Dextrose 101 mls @ 9.09 mls/hr IV .[id number] [facility]OU[facility]; 0.03 U/MIN PRN Reason: Protocol Last Admin: 02/14/17 09:28 Dose: 9.09 mls/hr Fentanyl Citrate (Fentanyl Citrate/Sodium Chloride 1 Mg/100 Ml) 1,000 mcg in 100 mls @ 7.5 mls/hr IV .[id number] PRN; Protocol; 75 MCG/HR PRN Reason: TITRATE PER MD ORDER Last Admin: 02/14/17 13:43 Dose: 75 mcg/hr, 7.5 mls/hr Sodium Bicarbonate 150 meq/ (Dextrose) 1,150 mls @ 150 mls/hr IV .Q7H40M [facility] Last Admin: 02/14/17 13:25 Dose: 150 mls/hr Midazolam 100 mg/100ml in NS (Midazolam 100 Mg/100ml In Ns) 100 mg in 100 mls @ 7 mls/hr IV .[id number] PRN; Protocol; 7 MG/HR PRN Reason: Agitation Last Admin: 02/14/17 12:51 Dose: 7 mg/hr, 7 mls/hr Epinephrine HCl 1 mg/ Sodium (Chloride) 51 mls @ 3.06 mls/hr IV .[id number] PRN; Protocol; 1 MCG/MIN PRN Reason: TITRATE PER MD ORDER Last Titration: 02/14/17 13:28 Dose: 5 mcg/min, 15.3 mls/hr Dobutamine HCl/Dextrose (Dobutamine/Dextrose 5% 500mg/250ml) 500 mg in 250 mls @ 3.844 mls/hr IV .Q24H PRN; Protocol; 2.5 MCG/KG/MIN PRN Reason: TITRATE PER PROTOCOL Last Admin: 02/14/17 14:47 Dose: 3.844 mls/hr Meropenem 1g/NS 100mL IVPB (Meropenem 1g/Ns 100ml Ivpb) 1 gm in 100 mls @ 100 mls/hr IVPB Q8 [facility] PRN Reason: Protocol Stop: 02/14/17 22:59 Last Admin: 02/14/17 17:40 Dose: 100 mls/hr Midazolam HCl (Versed Inj) 2 mg IVP Q4H PRN PRN Reason: Agitation Last Admin: 02/14/17 09:40 Dose: 2 mg Ondansetron HCl (Zofran Inj) 4 mg IVP Q6 PRN PRN Reason: Nausea/Vomiting Last Admin: 02/13/17 16:26 Dose: 4 mg Oxycodone HCl (Oxycodone Immediate Release Tab) 15 mg PO Q4 PRN PRN Reason: Pain, moderate (4-7) Last Admin: 02/14/17 00:59 Dose: 15 mg Oxycodone HCl (Oxycontin Extended Release Tab) 60 mg PO Q12H PRN PRN Reason: Pain, moderate (4-7) Last Admin: 02/13/17 18:52 Dose: 60 mg Pantoprazole Sodium (Protonix Ec Tab) 40 mg PO DAILY [facility] Last Admin: 02/13/17 09:43 Dose: 40 mg Pantoprazole Sodium (Protonix Inj) 40 mg IVP DAILY [facility] Last Admin: 02/14/17 11:55 Dose: 40 mg Physical Exam - Constitutional Appears: Non-toxic, No Acute Distress, Chronically Ill - Head Exam Head Exam: ATRAUMATIC, NORMOCEPHALIC - Eye Exam Eye Exam: EOMI, PERRL Pupil Exam: NORMAL ACCOMODATION, PERRL - ENT Exam ENT Exam: Mucous Membranes Moist, Normal External Ear Exam, TM's Normal Bilaterally - Neck Exam Neck exam: Positive for: Full Rom, Normal Inspection - Respiratory Exam Respiratory Exam: Clear to Auscultation Bilateral, NORMAL BREATHING PATTERN. absent: Rales, Rhonchi, Wheezes - Cardiovascular Exam Cardiovascular Exam: Tachycardia, REGULAR RHYTHM, RRR, +S1, +S2 - GI/Abdominal Exam GI & Abdominal Exam: Normal Bowel Sounds, Soft. absent: Distended, Tenderness - Extremities Exam Extremities exam: Positive for: full ROM, normal inspection - Neurological Exam Additional comments: AAO x 0, intubated and ventilated. unresponsive. - Psychiatric Exam Additional comments: unresponsive. Results - Vital Signs Recent Vital Signs: Last Vital Signs Temp 98.6 F 02/14/17 04:00 Pulse 97 H 02/14/17 17:22 Resp 31 H 02/14/17 17:22 BP 96/71 L 02/14/17 17:12 Pulse Ox 97 02/14/17 17:12 - Labs Result Diagrams: 02/14/17 17:25 02/14/17 17:25 Labs: Laboratory Results - last 24 hr 02/13/17 02/13/17 02/13/17 23:52 23:55 23:55 WBC 3.0 L D RBC 2.68 L Hgb 7.6 L Hct 22.8 L MCV 85.1 MCH 28.4 MCHC 33.3 RDW 18.5 H Plt Count 65 L MPV Gran % Lymph % (Auto) Stephenson % (Auto) Eos % (Auto) Baso % (Auto) Gran # Lymph # Stephenson # Eos # Baso # PT INR APTT Fibrin Degrad Products D-Dimer, Quantitative 28.75 H pCO2 19 L* pO2 55.0 L HCO3 15.2 L ABG pH 7.51 H ABG Total CO2 15.8 L ABG O2 Saturation 90.4 L ABG O2 Content ABG Base Excess -6.8 L ABG Hemoglobin ABG Carboxyhemoglobin POC ABG HHb (Measured) ABG Methemoglobin ABG O2 Capacity ABG Potassium 4.4 VBG pH VBG pCO2 VBG HCO3 VBG Total CO2 VBG O2 Sat (Calc) VBG Base Excess VBG Potassium Hgb O2 Saturation Sodium 139.0 Chloride 115.0 H Glucose 93 Lactate 5.4 H* Mechanical Rate FiO2 35.0 Tidal Volume PEEP Potassium Carbon Dioxide Anion Gap BUN Creatinine Est GFR ( Amer) Est GFR (Non-Af Amer) POC Glucose (mg/dL) Random Glucose Lactic Acid Calcium Phosphorus Magnesium Total Bilirubin AST ALT Alkaline Phosphatase Lactate Dehydrogenase Total Creatine Kinase CK-MB (CK-2) CK-MB (CK-2) % Troponin I NT-Pro-B Natriuret Pep Total Protein Albumin Globulin Albumin/Globulin Ratio Procalcitonin Arterial Blood Potassium 4.4 Venous Blood Potassium Urine Opiates Screen Urine Methadone Screen Ur Barbiturates Screen Ur Phencyclidine Scrn Ur Amphetamines Screen U Benzodiazepines Scrn U Oth Cocaine Metabols U Cannabinoids Screen Blood Type Antibody Screen Crossmatch BBK History Checked 02/13/17 02/14/17 02/14/17 23:55 03:20 03:20 WBC RBC Hgb Hct MCV MCH MCHC RDW Plt Count MPV Gran % Lymph % (Auto) Stephenson % (Auto) Eos % (Auto) Baso % (Auto) Gran # Lymph # Stephenson # Eos # Baso # PT INR APTT Fibrin Degrad Products D-Dimer, Quantitative pCO2 pO2 HCO3 ABG pH ABG Total CO2 ABG O2 Saturation ABG O2 Content ABG Base Excess ABG Hemoglobin ABG Carboxyhemoglobin POC ABG HHb (Measured) ABG Methemoglobin ABG O2 Capacity ABG Potassium VBG pH VBG pCO2 VBG HCO3 VBG Total CO2 VBG O2 Sat (Calc) VBG Base Excess VBG Potassium Hgb O2 Saturation Sodium 137 137 Chloride 107 108 H Glucose Lactate Mechanical Rate FiO2 Tidal Volume PEEP Potassium 4.5 4.7 Carbon Dioxide 18 L 14 L Anion Gap 17 20 BUN 25 H 26 H Creatinine 2.1 H 2.4 H Est GFR ( Amer) 30 26 Est GFR (Non-Af Amer) 25 21 POC Glucose (mg/dL) Random Glucose 97 40 L* D Lactic Acid Calcium 10.1 9.5 Phosphorus 4.8 H 6.9 H Magnesium 1.4 L 2.1 Total Bilirubin 0.8 0.8 AST 64 H 89 H ALT 19 23 Alkaline Phosphatase 76 66 Lactate Dehydrogenase 2425 H Total Creatine Kinase 698 H CK-MB (CK-2) 8.0 H CK-MB (CK-2) % 1.1 L Troponin I 0.29 H* D 0.72 H* D NT-Pro-B Natriuret Pep 4990 H Total Protein 5.6 L 5.2 L Albumin 2.4 L 2.3 L Globulin 3.2 3.0 Albumin/Globulin Ratio 0.8 L 0.8 L Procalcitonin > 200.00 H Arterial Blood Potassium Venous Blood Potassium Urine Opiates Screen Urine Methadone Screen Ur Barbiturates Screen Ur Phencyclidine Scrn Ur Amphetamines Screen U Benzodiazepines Scrn U Oth Cocaine Metabols U Cannabinoids Screen Blood Type Antibody Screen Crossmatch BBK History Checked 02/14/17 02/14/17 02/14/17 04:17 06:00 07:17 WBC RBC Hgb Hct MCV MCH MCHC RDW Plt Count MPV Gran % Lymph % (Auto) Stephenson % (Auto) Eos % (Auto) Baso % (Auto) Gran # Lymph # Stephenson # Eos # Baso # PT INR APTT Fibrin Degrad Products D-Dimer, Quantitative pCO2 29 L pO2 73.0 L HCO3 12.4 L ABG pH 7.24 L ABG Total CO2 13.3 L ABG O2 Saturation 91.8 L ABG O2 Content ABG Base Excess -13.6 L ABG Hemoglobin ABG Carboxyhemoglobin POC ABG HHb (Measured) ABG Methemoglobin ABG O2 Capacity ABG Potassium 3.9 VBG pH VBG pCO2 VBG HCO3 VBG Total CO2 VBG O2 Sat (Calc) VBG Base Excess VBG Potassium Hgb O2 Saturation Sodium 140.0 Chloride 114.0 H Glucose 51 L Lactate 5.5 H* Mechanical Rate FiO2 100.0 Tidal Volume PEEP Potassium Carbon Dioxide Anion Gap BUN Creatinine Est GFR ( Amer) Est GFR (Non-Af Amer) POC Glucose (mg/dL) 35 L* 43 L Random Glucose Lactic Acid Calcium Phosphorus Magnesium Total Bilirubin AST ALT Alkaline Phosphatase Lactate Dehydrogenase Total Creatine Kinase CK-MB (CK-2) CK-MB (CK-2) % Troponin I NT-Pro-B Natriuret Pep Total Protein Albumin Globulin Albumin/Globulin Ratio Procalcitonin Arterial Blood Potassium 3.9 Venous Blood Potassium Urine Opiates Screen Urine Methadone Screen Ur Barbiturates Screen Ur Phencyclidine Scrn Ur Amphetamines Screen U Benzodiazepines Scrn U Oth Cocaine Metabols U Cannabinoids Screen Blood Type Antibody Screen Crossmatch BBK History Checked 02/14/17 02/14/17 02/14/17 08:47 09:04 09:04 WBC 5.1 D RBC 1.89 L Hgb 5.4 L* D Hct 16.3 L* MCV 86.2 MCH 28.6 MCHC 33.1 RDW 19.0 H Plt Count 33 L* MPV Gran % 11.2 L Lymph % (Auto) 58.1 H Stephenson % (Auto) 17.4 H Eos % (Auto) 2.7 Baso % (Auto) 10.6 H Gran # 0.57 L Lymph # 3.0 Stephenson # 0.9 H Eos # 0.1 Baso # 0.54 PT 22.5 H INR 2.08 H APTT 45.0 H Fibrin Degrad Products D-Dimer, Quantitative pCO2 41 pO2 110.0 H HCO3 15.0 L ABG pH 7.17 L* ABG Total CO2 16.3 L ABG O2 Saturation 95.8 ABG O2 Content ABG Base Excess -12.6 L ABG Hemoglobin ABG Carboxyhemoglobin POC ABG HHb (Measured) ABG Methemoglobin ABG O2 Capacity ABG Potassium 4.4 VBG pH VBG pCO2 VBG HCO3 VBG Total CO2 VBG O2 Sat (Calc) VBG Base Excess VBG Potassium Hgb O2 Saturation Sodium 139.0 Chloride 113.0 H Glucose 72 Lactate 3.2 H Mechanical Rate 15 FiO2 100.0 Tidal Volume 350 PEEP 5 Potassium Carbon Dioxide Anion Gap BUN Creatinine Est GFR ( Amer) Est GFR (Non-Af Amer) POC Glucose (mg/dL) Random Glucose Lactic Acid Calcium Phosphorus Magnesium Total Bilirubin AST ALT Alkaline Phosphatase Lactate Dehydrogenase Total Creatine Kinase CK-MB (CK-2) CK-MB (CK-2) % Troponin I NT-Pro-B Natriuret Pep Total Protein Albumin Globulin Albumin/Globulin Ratio Procalcitonin Arterial Blood Potassium 4.4 Venous Blood Potassium Urine Opiates Screen Urine Methadone Screen Ur Barbiturates Screen Ur Phencyclidine Scrn Ur Amphetamines Screen U Benzodiazepines Scrn U Oth Cocaine Metabols U Cannabinoids Screen Blood Type Antibody Screen Crossmatch BBK History Checked 02/14/17 02/14/17 02/14/17 09:04 09:04 09:09 WBC RBC Hgb Hct MCV MCH MCHC RDW Plt Count MPV Gran % Lymph % (Auto) Stephenson % (Auto) Eos % (Auto) Baso % (Auto) Gran # Lymph # Stephenson # Eos # Baso # PT INR APTT Fibrin Degrad Products D-Dimer, Quantitative pCO2 pO2 91 H HCO3 ABG pH ABG Total CO2 ABG O2 Saturation ABG O2 Content ABG Base Excess ABG Hemoglobin ABG Carboxyhemoglobin POC ABG HHb (Measured) ABG Methemoglobin ABG O2 Capacity ABG Potassium VBG pH 7.16 L* VBG pCO2 47.0 VBG HCO3 16.8 L VBG Total CO2 18.2 L VBG O2 Sat (Calc) 95.8 H VBG Base Excess -11.8 L VBG Potassium 4.7 Hgb O2 Saturation Sodium 138 138.0 Chloride 112 H 111.0 H Glucose 69 Lactate 2.8 H Mechanical Rate FiO2 21.0 Tidal Volume PEEP Potassium 4.5 Carbon Dioxide 18 L Anion Gap 13 BUN 28 H Creatinine 2.3 H Est GFR ( Amer) 27 Est GFR (Non-Af Amer) 23 POC Glucose (mg/dL) Random Glucose 67 L Lactic Acid 3.0 H Calcium 8.3 L Phosphorus Magnesium Total Bilirubin 0.5 AST 183 H ALT 55 Alkaline Phosphatase 53 Lactate Dehydrogenase 3878 H Total Creatine Kinase 2592 H CK-MB (CK-2) 34.8 H CK-MB (CK-2) % 1.3 L Troponin I 0.76 H* NT-Pro-B Natriuret Pep Total Protein 4.5 L Albumin 1.9 L Globulin 2.6 Albumin/Globulin Ratio 0.7 L Procalcitonin Arterial Blood Potassium Venous Blood Potassium 4.7 Urine Opiates Screen Urine Methadone Screen Ur Barbiturates Screen Ur Phencyclidine Scrn Ur Amphetamines Screen U Benzodiazepines Scrn U Oth Cocaine Metabols U Cannabinoids Screen Blood Type Antibody Screen Crossmatch BBK History Checked 02/14/17 02/14/17 02/14/17 10:11 11:55 13:05 WBC RBC Hgb Hct MCV MCH MCHC RDW Plt Count MPV Gran % Lymph % (Auto) Stephenson % (Auto) Eos % (Auto) Baso % (Auto) Gran # Lymph # Stephenson # Eos # Baso # PT INR APTT Fibrin Degrad Products D-Dimer, Quantitative pCO2 34 L pO2 162.0 H HCO3 15.6 L ABG pH 7.27 L ABG Total CO2 16.6 L ABG O2 Saturation 96.8 ABG O2 Content 7.1 L ABG Base Excess -10.3 L ABG Hemoglobin 4.9 L ABG Carboxyhemoglobin 0 L POC ABG HHb (Measured) 3.2 ABG Methemoglobin 0.0 ABG O2 Capacity 7.3 L ABG Potassium VBG pH VBG pCO2 VBG HCO3 VBG Total CO2 VBG O2 Sat (Calc) VBG Base Excess VBG Potassium Hgb O2 Saturation 96.8 Sodium Chloride Glucose Lactate Mechanical Rate FiO2 100.0 Tidal Volume PEEP Potassium Carbon Dioxide Anion Gap BUN Creatinine Est GFR ( Amer) Est GFR (Non-Af Amer) POC Glucose (mg/dL) Random Glucose Lactic Acid Calcium Phosphorus Magnesium Total Bilirubin AST ALT Alkaline Phosphatase Lactate Dehydrogenase Total Creatine Kinase CK-MB (CK-2) CK-MB (CK-2) % Troponin I NT-Pro-B Natriuret Pep Total Protein Albumin Globulin Albumin/Globulin Ratio Procalcitonin Arterial Blood Potassium Venous Blood Potassium Urine Opiates Screen Positive H Urine Methadone Screen Negative Ur Barbiturates Screen Negative Ur Phencyclidine Scrn Negative Ur Amphetamines Screen Negative U Benzodiazepines Scrn Positive H U Oth Cocaine Metabols Negative U Cannabinoids Screen Negative Blood Type O POSITIVE Antibody Screen Negative Crossmatch See Detail BBK History Checked Patient has bt 02/14/17 02/14/17 02/14/17 14:06 17:15 17:25 WBC 4.3 L RBC 3.67 Hgb 10.6 L Hct 31.5 L MCV 85.8 MCH 28.9 MCHC 33.7 RDW 15.8 H Plt Count 111 L MPV 10.7 Gran % 28.0 L Lymph % (Auto) 59.6 H Stephenson % (Auto) 4.8 Eos % (Auto) 2.8 Baso % (Auto) 4.8 H Gran # 1.21 L Lymph # 2.6 Stephenson # 0.2 Eos # 0.1 Baso # 0.21 PT INR APTT Fibrin Degrad Products D-Dimer, Quantitative pCO2 25 L pO2 139.0 H HCO3 11.5 L ABG pH 7.27 L ABG Total CO2 12.3 L ABG O2 Saturation 97.9 ABG O2 Content ABG Base Excess -13.6 L ABG Hemoglobin ABG Carboxyhemoglobin POC ABG HHb (Measured) ABG Methemoglobin ABG O2 Capacity ABG Potassium 6.3 H* VBG pH VBG pCO2 VBG HCO3 VBG Total CO2 VBG O2 Sat (Calc) VBG Base Excess VBG Potassium Hgb O2 Saturation Sodium 134.0 Chloride 113.0 H Glucose 90 Lactate 5.0 H* Mechanical Rate 30 FiO2 50.0 Tidal Volume 340 PEEP 5 Potassium Carbon Dioxide Anion Gap BUN Creatinine Est GFR ( Amer) Est GFR (Non-Af Amer) POC Glucose (mg/dL) 83 Random Glucose Lactic Acid Calcium Phosphorus Magnesium Total Bilirubin AST ALT Alkaline Phosphatase Lactate Dehydrogenase Total Creatine Kinase CK-MB (CK-2) CK-MB (CK-2) % Troponin I NT-Pro-B Natriuret Pep Total Protein Albumin Globulin Albumin/Globulin Ratio Procalcitonin Arterial Blood Potassium 6.3 H* Venous Blood Potassium Urine Opiates Screen Urine Methadone Screen Ur Barbiturates Screen Ur Phencyclidine Scrn Ur Amphetamines Screen U Benzodiazepines Scrn U Oth Cocaine Metabols U Cannabinoids Screen Blood Type Antibody Screen Crossmatch BBK History Checked 02/14/17 02/14/17 17:25 17:25 WBC RBC Hgb Hct MCV MCH MCHC RDW Plt Count MPV Gran % Lymph % (Auto) Stephenson % (Auto) Eos % (Auto) Baso % (Auto) Gran # Lymph # Stephenson # Eos # Baso # PT 16.4 H INR 1.52 H APTT 31.3 H Fibrin Degrad Products >40 ug/ml D-Dimer, Quantitative pCO2 pO2 HCO3 ABG pH ABG Total CO2 ABG O2 Saturation ABG O2 Content ABG Base Excess ABG Hemoglobin ABG Carboxyhemoglobin POC ABG HHb (Measured) ABG Methemoglobin ABG O2 Capacity ABG Potassium VBG pH VBG pCO2 VBG HCO3 VBG Total CO2 VBG O2 Sat (Calc) VBG Base Excess VBG Potassium Hgb O2 Saturation Sodium Chloride Glucose Lactate Mechanical Rate FiO2 Tidal Volume PEEP Potassium Carbon Dioxide Anion Gap BUN Creatinine Est GFR ( Amer) Est GFR (Non-Af Amer) POC Glucose (mg/dL) Random Glucose Lactic Acid Calcium Phosphorus Magnesium Total Bilirubin AST ALT Alkaline Phosphatase Lactate Dehydrogenase Total Creatine Kinase CK-MB (CK-2) CK-MB (CK-2) % Troponin I NT-Pro-B Natriuret Pep Total Protein Albumin Globulin Albumin/Globulin Ratio Procalcitonin Arterial Blood Potassium Venous Blood Potassium Urine Opiates Screen Urine Methadone Screen Ur Barbiturates Screen Ur Phencyclidine Scrn Ur Amphetamines Screen U Benzodiazepines Scrn U Oth Cocaine Metabols U Cannabinoids Screen Blood Type Antibody Screen Crossmatch BBK History Checked Assessment & Plan - Assessment and Plan (Free Text) Assessment: 51 yo female currently intubated and ventilated and poorly responsive with hypotension requiring pressor support with 4 medications. Currently on Meropenem and Vancomycin. Extremely poor prognosis. Supportive care. There were concerns for abdominal perforation and findings of extensive abdominal ascites and pneumoperitoneum. Severe anemia requiring PRBC transfusions. Meropenem is a reasonable choice for generalized antibiotic coverage. Case discussed with Dr. Lopez and Tera. Thank you for allowing me to participate in the care of the patient, we will follow with you.
--- NOTE | 2017-02-14 21:31 | PN ---
DATE: 02/14/2017 The patient is in ICU, bed 4. HISTORY OF PRESENT ILLNESS: I had gotten a call earlier this morning around 2:00 that the patient wa s having progressively worsening shortness of breath and she was going into hypotensive shock. I had spoken to the dry cleaner helper. The patient was transferred to the ICU for further management. The ques tion was whether she would become hypotensive from possible PE as there was some evidence of changes in the right lower lung bases on the CAT scan of the abdomen. CAT scan of the chest was done, which had shown bilateral interstitial infiltrates, specifically in the bases along with extensive mediasti nal and hilar adenopathy. The patient in the unit was noted to have signs and symptoms of perforatio n, acute abdomen. She was hypotensive as she is currently on 3 pressors along with broad spectrum an tibiotics. She has gotten 4 units of blood, 2 units of platelets, along with IV fluids, come u p, she is intubated on a ventilator. PAST MEDICAL HISTORY: Is significant for inflammatory bowel disease, status post colostomy 2-3 month s ago for a significant perirectal abscesses; 1 of the abscesses was lanced, drained and analyzed, wh ich was showing metastatic mucoid carcinoma. The patient was scoped yesterday, found to have a steno tic lesion in the rectosigmoid. The scope could not past further. The scope was withdrawn and biops y was not done as there was active bleeding. Subsequent to that the patient deteriorated through the night and is now in the unit on a ventilator. The most recent CAT scan of the abdomen and pelvis re veals free air with multiple lymphadenopathy and ascites. A NG tube was placed and almost a liter of bilious secretions was suctioned out. Past medical history is also significant for Crohn's, asthma, bipolar disorder, polysubstance abuse and the diagnosis of mucinous adenocarcinoma. MEDICATIONS: Were reviewed. She is on Tylenol p.r.n., Brovana, Pulmicort, Klonopin on hold, dobutam ine, epinephrine, fentanyl drip, hydrocortisone, Versed drip, norepinephrine, Zofran p.r.n., Protonix and bicarbonate at 150 an hour. The patient is on vancomycin and vasopressin. LABORATORY DATA: Reveals a white count of 5.1, hemoglobin of 5.4 and platelet count of 33. The gm ent as I mentioned had gotten 4 units of blood and 2 units of platelets. Sodium is 138, K is 4.5, ch loride is 112, CO2 is 18, BUN is 28, creatinine 2.3, glucose 83. Lactic acid is 3 down from 5.4 sarah ier today. Troponin 0.7. ASSESSMENT NOTES AND PLAN: The patient has acute abdomen at this time along with the findings of wha t appears to be metastatic cancer. The patient has multiorgan failure including acute kidney injury, septic encephalopathy, respiratory failure, septic cardiomyopathy and disseminated intravascular coa gulopathy and is currently on a ventilator and vasopressor support. I had a detailed discussion zeldai n with renal, with the dry cleaner helper and ID people. My recommendation at this time was to be as aggres sive as possible at this point in time. The patient may have to be reassessed by the surgeon after r esuscitating her with blood and blood products to see if she is a surgical candidate. If surgery is not feasible at this time, the patient definitely has a poor prognosis and will from complication s and with surgery also the likelihood of recovery is very slim. Dr. Marti is going to reevalu ate the situation a few hours for now. Overall, prognosis is guarded and I have discussed my finding s with the hospitalist, Dr. Jaffe as well. Will continue DVT prophylaxis and continue GI prophyla xis in the meantime. The correlation between the findings of the adenocarcinoma of the colon and a s tenotic lesion in the rectum along with the findings of extensive lymphadenopathy have not yet been c orrelated, but it is possible that the patient could have 2 separate issues in view of the fact that she has inflammatory bowel disorder as well. The family is being reached out to now to let him know the prognosis for the patient. The patient's closest person is her mom, who is very sick herself and is indisposed and cannot make it to the hospital. Alsesandra Lucas MD cc: [id number] TT: 02/14/2017 21:31:06 Confirmation # [id number] Dictation # [id number] dn
[2017-02-14 22:01] LABS: ARTERIAL BLOOD GAS HCO3 12.7 mmol/L (21-28); ARTERIAL BLOOD GAS O2 CAPACITY 15.7 mL/dl (16-24); ARTERIAL BLOOD GAS O2 CONTENT 15.4 ML/dl (15-23); ARTERIAL BLOOD GAS PH 7.28 (7.35-7.45); ARTERIAL BLOOD HGB O2 SAT 96.3 % (95.0-98.0); HHB 2.1 % (0-5); METHEMOGLOBIN 0.5 % (0.0-3.0)
[2017-02-14 23:09] LABS: VENOUS BLOOD GAS BASE EXCESS -12.5 mmol/L (0.0-2.0); VENOUS BLOOD PH 7.19 (7.32-7.43)
[2017-02-14 23:10] LABS: HEMATOCRIT 29.7 % (36.0-48.0); MEAN CELL VOLUME 84.6 fL (80.0-105.0); MEAN CORPUSCULAR HEMOGLOBIN 29.1 pg (25.0-35.0); MEAN CORPUSCULAR HGB CONC 34.3 g/dl (31.0-37.0); PLATELET COUNT 102 10^3/uL (120.0-450.0); RED CELL DISTRIBUTION WIDTH 16.2 % (11.5-14.5); WHITE BLOOD COUNT 5.2 10^3/ul (4.5-11.0)
[2017-02-14 23:15] LABS: BILIRUBIN,TOTAL 1.7 mg/dL (0.2-1.3); CALCIUM 7.6 mg/dL (8.4-10.5); POTASSIUM 5.4 mmol/L (3.6-5.0); TOTAL PROTEIN 5.8 g/dL (5.8-8.3)
[2017-02-14 23:28] LABS: ADD MANUAL DIFF? YES
[2017-02-14 23:37] LABS: INR 1.77 (0.93-1.08); PARTIAL THROMBOPLASTIN TIME 33.9 Seconds (23.7-30.8)
[2017-02-15] MEDS ORDERED: Sodium Bicarbonate (8.4%) 50 Meq Syringe IVP ONE (00:50)
[2017-02-15] MEDS: Meropenem 1g/NS 100mL IVPB 1 GM/100 ML PIGGYBACK IVPB SCH ×6 (00:59→22:13)
[2017-02-15 01:05] LABS: BAND 3 % (0-2); NEUTROPHIL 20 % (50.0-70.0)
[2017-02-15 01:06] LABS: EOSINOPHIL 3 % (0.0-3.0); MYELOCYTE 1 %
[2017-02-15 01:07] LABS: ANISOCYTOSIS 1+; ATYPICAL LYMPHOCYTE 2 % (0.0-0.0); PLATELET ESTIMATE LOW (NORMAL); POIKILOCYTOSIS SLIGHT; POLYCHROMASIA SLIGHT
[2017-02-15 01:08] LABS: HELMET CELLS SLIGHT
[2017-02-15 01:09] LABS: CORRECTED WBC 3.3 K/mm3 (4.5-11.0); NUCLEATED RED BLOOD CELL 56 %
[2017-02-15] MEDS: NOREPINEPHRINE BIT/0.9 % NACL 4 MG/250 ML BAG IV PRN (02:00)
[2017-02-15] MEDS ORDERED: Sodium Bicarbonate (8.4%) 50 Meq Syringe ONE (04:44)
[2017-02-15 05:42] LABS: ARTERIAL BLOOD GAS HCO3 19.2 mmol/L (21-28); ARTERIAL BLOOD GAS PH 7.43 (7.35-7.45)
[2017-02-15] MEDS: Vasopressin 20 UNITS in Dextrose 5% In Water 100 ML IV SCH (06:31)
[2017-02-15 06:39] LABS: HEMATOCRIT 29.5 % (36.0-48.0); MEAN CELL VOLUME 82.6 fL (80.0-105.0); MEAN CORPUSCULAR HGB CONC 36.3 g/dl (31.0-37.0); MEAN PLATELET VOLUME 11.5 fl (7.0-11.0); PLATELET COUNT 79 10^3/uL (120.0-450.0); RED CELL DISTRIBUTION WIDTH 16.5 % (11.5-14.5); WHITE BLOOD COUNT 4.4 10^3/ul (4.5-11.0)
[2017-02-15 06:49] LABS: ALB/GLOB RATIO 0.9 (1.1-1.8); BILIRUBIN,TOTAL 1.6 mg/dL (0.2-1.3); CALCIUM 7.2 mg/dL (8.4-10.5); MAGNESIUM 1.6 mg/dL (1.7-2.2); PHOSPHOROUS 7.5 mg/dL (2.5-4.5); POTASSIUM 4.5 mmol/L (3.6-5.0); TOTAL PROTEIN 5.7 g/dL (5.8-8.3)
[2017-02-15 06:53] LABS: ADD MANUAL DIFF? YES
--- NOTE | 2017-02-15 08:03 | RAD ---
PROCEDURE: CHEST RADIOGRAPH, 1 VIEW HISTORY: SOB COMPARISON: None available. FINDINGS: LUNGS: Bilateral interstitial infiltrates. PLEURA: No pneumothorax or pleural fluid seen. CARDIOVASCULAR: Normal. OSSEOUS STRUCTURES: No significant abnormalities. VISUALIZED UPPER ABDOMEN: Normal. OTHER FINDINGS: None. IMPRESSION: Bilateral interstitial infiltrates.
[2017-02-15] MEDS: Arformoterol 15 mcg/2 ml Inh Sol IH SCH ×2 (08:05→19:42)
[2017-02-15] MEDS: Budesonide 0.5 mg/2 ml Inhal Susp UD IH SCH ×2 (08:05→19:43)
[2017-02-15 08:06] LABS: BASOPHIL 1 % (0.0-1.0); CORRECTED WBC 3.3 K/mm3 (4.5-11.0); EOSINOPHIL 8 % (0.0-3.0); MYELOCYTE 4 %; NEUTROPHIL 18 % (50.0-70.0); NUCLEATED RED BLOOD CELL 32 %; PROMYELOCYTE 2 %
--- NOTE | 2017-02-15 08:07 | RAD ---
PROCEDURE: HISTORY: ET position- tube changed COMPARISON: 02/14/2017 TECHNIQUE: FINDINGS: Diffuse bilateral interstitial infiltrates. The heart clementine silhouettes are grossly normal. Right CVP line tip in place. NG tube in the stomach. ETT above the siddharth. IMPRESSION: Diffuse bilateral interstitial infiltrates.
--- NOTE | 2017-02-15 08:09 | RAD ---
PROCEDURE: HISTORY: pneumonia COMPARISON: TECHNIQUE: FINDINGS: Diffuse bilateral interstitial infiltrates. ETT in the right mainstem bronchus. NG tube in stomach. Right CVP line tip in the SVC. IMPRESSION: As above.
[2017-02-15] MEDS: Fentanyl 1000mcg/100ml NS 1,000 MCG/100 ML BAG IV PRN ×2 (08:15)
[2017-02-15] MEDS: Midazolam 100 mg/100ml in NS 100 MG/100 ML SOL IV PRN (08:16)
--- NOTE | 2017-02-15 09:16 | CP.PCM.PN ---
<Pete Duval - Last Filed: 02/15/17 10:14> Subjective - Date & Time of Evaluation Date of Evaluation: 02/15/17 Time of Evaluation: 09:12 - Subjective Subjective: PGY4 GI Fellow Progress Note Patient seen and examined bedside this morning. The patient is intubated and sedated (versed/fentanyl). She remains on multi-pressor support with Levophed/ Dobutamine and Vasopressin. Surgery evaluated the patient and planned for exploratory laparotomy, however Mother is refusing surgical intervention at this time. Patient grimacing with palpation of the abdomen. No acute events overnight. 12 system ROS cannot be performed given clinical condition. Objective - Vital Signs/Intake and Output Vital Signs (last 24 hours): Temp Pulse Resp BP Pulse Ox 98.1 F 95 H 37 H 117/87 89 L 02/14/17 18:00 02/15/17 06:20 02/14/17 22:51 02/15/17 06:31 02/15/17 06:20 Intake and Output: 02/15/17 02/15/17 06:59 18:59 Intake Total 4507 Output Total 1000 Balance 3507 - Medications Medications: Current Medications Arformoterol Tartrate (Brovana) 15 mcg IH [id number] [facility] Last Admin: 02/15/17 08:05 Dose: 15 mcg Budesonide (Pulmicort Respules) 0.5 mg IH [id number] [facility] Last Admin: 02/15/17 08:05 Dose: 0.5 mg Clonazepam (Klonopin) 1 mg PO BID RAOUL PRN Reason: Protocol Last Admin: 02/14/17 10:00 Dose: Not Given Gabapentin (Neurontin) 800 mg PO QID [facility] Last Admin: 02/14/17 13:29 Dose: Not Given Heparin Sodium (Porcine) (Heparin) 5,000 units SC Q8 [facility]OU[facility] PRN Reason: Protocol Last Admin: 02/14/17 05:36 Dose: Not Given Hydrocortisone Sodium Succinate (Solu-Cortef) 50 mg IVP Q6H [facility] Last Admin: 02/15/17 08:14 Dose: 50 mg Vancomycin HCl (Vancomycin 500mg In Ns) 500 mg in 100 mls @ 200 mls/hr IVPB Q12 [facility]OU[facility] PRN Reason: Protocol Last Admin: 02/14/17 22:30 Dose: 200 mls/hr NOREPINEPHRINE BIT/0.9 % NACL (Levophed 4 Mg/ 250 Ml Ns Premixed) 4 mg in 250 mls @ 15 mls/hr IV .[id number] PRN; Protocol; 4 MCG/MIN PRN Reason: TITRATE PER MD ORDER Last Admin: 02/15/17 02:00 Dose: 20 mcg/min, 75 mls/hr Vasopressin 20 units/ Dextrose 101 mls @ 9.09 mls/hr IV .Q11H7M RAOUL; 0.03 U/MIN PRN Reason: Protocol Last Admin: 02/15/17 06:31 Dose: 9.09 mls/hr Fentanyl Citrate (Fentanyl Citrate/Sodium Chloride 1 Mg/100 Ml) 1,000 mcg in 100 mls @ 7.5 mls/hr IV .[id number] PRN; Protocol; 75 MCG/HR PRN Reason: TITRATE PER MD ORDER Last Admin: 02/15/17 08:15 Dose: 150 mcg/hr, 15 mls/hr Sodium Bicarbonate 150 meq/ (Dextrose) 1,150 mls @ 150 mls/hr IV .Q7H40M [facility] Last Admin: 02/14/17 23:45 Dose: 150 mls/hr Midazolam 100 mg/100ml in NS (Midazolam 100 Mg/100ml In Ns) 100 mg in 100 mls @ 7 mls/hr IV .[id number] PRN; Protocol; 7 MG/HR PRN Reason: Agitation Last Admin: 02/15/17 08:16 Dose: 7 mg/hr, 7 mls/hr Epinephrine HCl 1 mg/ Sodium (Chloride) 51 mls @ 15.3 mls/hr IV .Q3H20M PRN; Protocol; 5 MCG/MIN PRN Reason: TITRATE PER MD ORDER Last Titration: 02/15/17 06:30 Dose: 3 mcg/min, 9.18 mls/hr Dobutamine HCl/Dextrose (Dobutamine/Dextrose 5% 500mg/250ml) 500 mg in 250 mls @ 3.844 mls/hr IV .Q24H PRN; Protocol; 2.5 MCG/KG/MIN PRN Reason: TITRATE PER PROTOCOL Last Admin: 02/14/17 14:47 Dose: 3.844 mls/hr Meropenem 1g/NS 100mL IVPB (Meropenem 1g/Ns 100ml Ivpb) 1 gm in 100 mls @ 100 mls/hr IVPB Q8 RAOUL PRN Reason: Protocol Stop: 02/15/17 14:59 Last Admin: 02/15/17 08:19 Dose: 100 mls/hr Midazolam HCl (Versed Inj) 2 mg IVP Q4H PRN PRN Reason: Agitation Last Admin: 02/14/17 09:40 Dose: 2 mg Ondansetron HCl (Zofran Inj) 4 mg IVP Q6 PRN PRN Reason: Nausea/Vomiting Last Admin: 02/13/17 16:26 Dose: 4 mg Oxycodone HCl (Oxycodone Immediate Release Tab) 15 mg PO Q4 PRN PRN Reason: Pain, moderate (4-7) Last Admin: 02/14/17 00:59 Dose: 15 mg Oxycodone HCl (Oxycontin Extended Release Tab) 60 mg PO Q12H PRN PRN Reason: Pain, moderate (4-7) Last Admin: 02/13/17 18:52 Dose: 60 mg Pantoprazole Sodium (Protonix Inj) 40 mg IVP DAILY [facility] Last Admin: 02/14/17 11:55 Dose: 40 mg - Labs Labs: 02/15/17 06:14 02/15/17 06:14 PT 19.1 Seconds (9.9-11.8) H 02/14/17 22:59 INR 1.77 (0.93-1.08) H 02/14/17 22:59 APTT 33.9 Seconds (23.7-30.8) H 02/14/17 22:59 - Constitutional Appears: Other (intubated, sedated) - Eye Exam Eye Exam: PERRL - ENT Exam ENT Exam: Mucous Membranes Dry, Mucous Membranes Moist - Respiratory Exam Respiratory Exam: Rales, Wheezes. absent: Clear to Ausculation Bilateral, Rhonchi - Cardiovascular Exam Cardiovascular Exam: Tachycardia, REGULAR RHYTHM, +S1, +S2 - GI/Abdominal Exam GI & Abdominal Exam: Distended, Firm, Tenderness, Hypoactive Bowel Sounds. absent: Guarding, Rigid, Organomegaly - Extremities Exam Extremities Exam: Normal Inspection. 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 -Pneumoperitoneum 2/2 suspected perforated viscous -Acute septic shock -Anion gap metabolic acidosis with respiratory compensation -Demand ischemia with rising troponin -Acute ischemic hepatopathy -Elevated D-dimer, LDH in setting of malignancy/sepsis -Bulky rectal mass noted on colonoscopy; h/o mucinous adenocarcinoma -Pancytopenia -Coagulopathy 2/2 ongoing sepsis -Crohn's disease, nonadherent to therapy/follow up -Severe anxiety/depression with history of Bipolar d/o -Multisubstance abuse Plan: -S/P transfusion with 4u PRBCs, 6u FFP, 2u platelets yesterday -Surgery had planned exploratory laparotomy, however family refusing intervention at this time -Continued on multi-pressor support with Levophed, Vasopressin, Dobutamine -Septic work up ongoing -Avoid hepatotoxic medications ins etting of ischemic hepatopathy; monitor CMP -Spiking fevers, please use antipyrectics conservatively given above -Surgery/oncology following -Continue supportive care for now <Fabi Plascencia MD - Last Filed: 02/15/17 14:00> Objective - Vital Signs/Intake and Output Vital Signs (last 24 hours): Temp Pulse Resp BP Pulse Ox 98.1 F 95 H 37 H 117/87 89 L 02/14/17 18:00 02/15/17 06:20 02/14/17 22:51 02/15/17 06:31 02/15/17 06:20 Intake and Output: 02/15/17 02/15/17 06:59 18:59 Intake Total 4507 Output Total 1000 Balance 3507 - Medications Medications: Current Medications Arformoterol Tartrate (Brovana) 15 mcg IH [id number] [facility] Last Admin: 02/15/17 08:05 Dose: 15 mcg Budesonide (Pulmicort Respules) 0.5 mg IH [id number] [facility] Last Admin: 02/15/17 08:05 Dose: 0.5 mg Clonazepam (Klonopin) 1 mg PO BID [facility] PRN Reason: Protocol Last Admin: 02/14/17 10:00 Dose: Not Given Gabapentin (Neurontin) 800 mg PO QID [facility] Last Admin: 02/14/17 13:29 Dose: Not Given Heparin Sodium (Porcine) (Heparin) 5,000 units SC Q8 [facility] PRN Reason: Protocol Last Admin: 02/14/17 05:36 Dose: Not Given Hydrocortisone Sodium Succinate (Solu-Cortef) 50 mg IVP Q6H [facility] Last Admin: 02/15/17 08:14 Dose: 50 mg Vancomycin HCl (Vancomycin 500mg In Ns) 500 mg in 100 mls @ 200 mls/hr IVPB Q12 [facility] PRN Reason: Protocol Last Admin: 02/15/17 10:44 Dose: 200 mls/hr NOREPINEPHRINE BIT/0.9 % NACL (Levophed 4 Mg/ 250 Ml Ns Premixed) 4 mg in 250 mls @ 15 mls/hr IV .[id number] PRN; Protocol; 4 MCG/MIN PRN Reason: TITRATE PER MD ORDER Last Admin: 02/15/17 02:00 Dose: 20 mcg/min, 75 mls/hr Vasopressin 20 units/ Dextrose 101 mls @ 9.09 mls/hr IV .Q11H7M RAOUL; 0.03 U/MIN PRN Reason: Protocol Last Admin: 02/15/17 06:31 Dose: 9.09 mls/hr Fentanyl Citrate (Fentanyl Citrate/Sodium Chloride 1 Mg/100 Ml) 1,000 mcg in 100 mls @ 7.5 mls/hr IV .[id number] PRN; Protocol; 75 MCG/HR PRN Reason: TITRATE PER MD ORDER Last Admin: 02/15/17 08:15 Dose: 150 mcg/hr, 15 mls/hr Sodium Bicarbonate 150 meq/ (Dextrose) 1,150 mls @ 150 mls/hr IV .Q7H40M [facility] Last Admin: 02/14/17 23:45 Dose: 150 mls/hr Midazolam 100 mg/100ml in NS (Midazolam 100 Mg/100ml In Ns) 100 mg in 100 mls @ 7 mls/hr IV .[id number] PRN; Protocol; 7 MG/HR PRN Reason: Agitation Last Admin: 02/15/17 08:16 Dose: 7 mg/hr, 7 mls/hr Epinephrine HCl 1 mg/ Sodium (Chloride) 51 mls @ 15.3 mls/hr IV .Q3H20M PRN; Protocol; 5 MCG/MIN PRN Reason: TITRATE PER MD ORDER Last Titration: 02/15/17 06:30 Dose: 3 mcg/min, 9.18 mls/hr Dobutamine HCl/Dextrose (Dobutamine/Dextrose 5% 500mg/250ml) 500 mg in 250 mls @ 3.844 mls/hr IV .Q24H PRN; Protocol; 2.5 MCG/KG/MIN PRN Reason: TITRATE PER PROTOCOL Last Admin: 02/14/17 14:47 Dose: 3.844 mls/hr Meropenem 1g/NS 100mL IVPB (Meropenem 1g/Ns 100ml Ivpb) 1 gm in 100 mls @ 100 mls/hr IVPB Q8 [facility] PRN Reason: Protocol Stop: 02/15/17 14:59 Last Admin: 02/15/17 08:19 Dose: 100 mls/hr Midazolam HCl (Versed Inj) 2 mg IVP Q4H PRN PRN Reason: Agitation Last Admin: 02/14/17 09:40 Dose: 2 mg Ondansetron HCl (Zofran Inj) 4 mg IVP Q6 PRN PRN Reason: Nausea/Vomiting Last Admin: 02/13/17 16:26 Dose: 4 mg Oxycodone HCl (Oxycodone Immediate Release Tab) 15 mg PO Q4 PRN PRN Reason: Pain, moderate (4-7) Last Admin: 02/14/17 00:59 Dose: 15 mg Oxycodone HCl (Oxycontin Extended Release Tab) 60 mg PO Q12H PRN PRN Reason: Pain, moderate (4-7) Last Admin: 02/13/17 18:52 Dose: 60 mg Pantoprazole Sodium (Protonix Inj) 40 mg IVP DAILY [facility] Last Admin: 02/15/17 10:42 Dose: 40 mg - Labs Labs: 02/15/17 06:14 02/15/17 06:14 PT 19.1 Seconds (9.9-11.8) H 02/14/17 22:59 INR 1.77 (0.93-1.08) H 02/14/17 22:59 APTT 33.9 Seconds (23.7-30.8) H 02/14/17 22:59 Attending/Attestation - Attestation I have personally seen and examined this patient.: Yes I have fully participated in the care of the patient.: Yes I have reviewed all pertinent clinical information, including history, physical exam and plan: Yes Notes (Text): 02/15/17 13:56 Patient seen at bedside with Gi fellows on rounds this am. 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 Rectal exam showed bulky mass with attempt at flex sigmoidoscopy showing stenosis and friability. Unable to take biopsies due to active bleed. Subsequently hospital course complicated by septic shock and pneumoperitoneum. Mother NOK refused surgery. On three pressors with hemolysis and coagulopathy due to shock liver in setting of demand ischemia and sepsis. Sepsis RX as per MICU. Rest of plan as per surgery. Continue supportive care. Avoid hepatotoxic medications
--- NOTE | 2017-02-15 09:29 | CP.PCM.PN ---
<Hollis Faustin - Last Filed: 02/15/17 10:49> Subjective - Date & Time of Evaluation Date of Evaluation: 02/15/17 Time of Evaluation: 08:00 - Subjective Subjective: Patient seen and examined this morning. Pt remains intubated and sedated. At time of examination patient was on Levophed, Dobutamine, and vasopressin. Patient grimaces to abdominal palpation but does not withdraw from pain. NGT output: ~1300ccs, bilious. Early this morning patient's mother was contacted by surgical attending, Dr. Marti. As per surgical attending, mother stated at the present time she does not want any aggressive measures carried out on her daughter, she states her daughter has been through so much already, she just wants her to be comfortable. It was explained to the patient's mother in detail about the patient's intestinal perforation, clinical course, and the consequences it could lead to if no intervention is done. Patient's mother understood this could mean of patient if no intervention is done. At this point surgery believes patient would benefit from surgery. We will keep closely monitoring patient. If patient were to decline, mother will be contacted again and once again we will explain all the risks and benefits. At this time we will be on stand by and follow patient's clinical condition closely. Objective - Vital Signs/Intake and Output Vital Signs (last 24 hours): Temp Pulse Resp BP Pulse Ox 98.1 F 95 H 37 H 117/87 89 L 02/14/17 18:00 02/15/17 06:20 02/14/17 22:51 02/15/17 06:31 02/15/17 06:20 Intake and Output: 02/15/17 02/15/17 06:59 18:59 Intake Total 4507 Output Total 1000 Balance 3507 - Medications Medications: Current Medications Arformoterol Tartrate (Brovana) 15 mcg IH [id number] [facility] Last Admin: 02/15/17 08:05 Dose: 15 mcg Budesonide (Pulmicort Respules) 0.5 mg IH [id number] [facility] Last Admin: 02/15/17 08:05 Dose: 0.5 mg Clonazepam (Klonopin) 1 mg PO BID [facility] PRN Reason: Protocol Last Admin: 02/14/17 10:00 Dose: Not Given Gabapentin (Neurontin) 800 mg PO QID [facility] Last Admin: 02/14/17 13:29 Dose: Not Given Heparin Sodium (Porcine) (Heparin) 5,000 units SC Q8 RAOUL PRN Reason: Protocol Last Admin: 02/14/17 05:36 Dose: Not Given Hydrocortisone Sodium Succinate (Solu-Cortef) 50 mg IVP Q6H [facility] Last Admin: 02/15/17 08:14 Dose: 50 mg Vancomycin HCl (Vancomycin 500mg In Ns) 500 mg in 100 mls @ 200 mls/hr IVPB Q12 RAOUL PRN Reason: Protocol Last Admin: 02/14/17 22:30 Dose: 200 mls/hr NOREPINEPHRINE BIT/0.9 % NACL (Levophed 4 Mg/ 250 Ml Ns Premixed) 4 mg in 250 mls @ 15 mls/hr IV .[id number] PRN; Protocol; 4 MCG/MIN PRN Reason: TITRATE PER MD ORDER Last Admin: 02/15/17 02:00 Dose: 20 mcg/min, 75 mls/hr Vasopressin 20 units/ Dextrose 101 mls @ 9.09 mls/hr IV .Q11H7M RAOUL; 0.03 U/MIN PRN Reason: Protocol Last Admin: 02/15/17 06:31 Dose: 9.09 mls/hr Fentanyl Citrate (Fentanyl Citrate/Sodium Chloride 1 Mg/100 Ml) 1,000 mcg in 100 mls @ 7.5 mls/hr IV .[id number] PRN; Protocol; 75 MCG/HR PRN Reason: TITRATE PER MD ORDER Last Admin: 02/15/17 08:15 Dose: 150 mcg/hr, 15 mls/hr Sodium Bicarbonate 150 meq/ (Dextrose) 1,150 mls @ 150 mls/hr IV .Q7H40M [facility] Last Admin: 02/14/17 23:45 Dose: 150 mls/hr Midazolam 100 mg/100ml in NS (Midazolam 100 Mg/100ml In Ns) 100 mg in 100 mls @ 7 mls/hr IV .[id number] PRN; Protocol; 7 MG/HR PRN Reason: Agitation Last Admin: 02/15/17 08:16 Dose: 7 mg/hr, 7 mls/hr Epinephrine HCl 1 mg/ Sodium (Chloride) 51 mls @ 15.3 mls/hr IV .Q3H20M PRN; Protocol; 5 MCG/MIN PRN Reason: TITRATE PER MD ORDER Last Titration: 02/15/17 06:30 Dose: 3 mcg/min, 9.18 mls/hr Dobutamine HCl/Dextrose (Dobutamine/Dextrose 5% 500mg/250ml) 500 mg in 250 mls @ 3.844 mls/hr IV .Q24H PRN; Protocol; 2.5 MCG/KG/MIN PRN Reason: TITRATE PER PROTOCOL Last Admin: 02/14/17 14:47 Dose: 3.844 mls/hr Meropenem 1g/NS 100mL IVPB (Meropenem 1g/Ns 100ml Ivpb) 1 gm in 100 mls @ 100 mls/hr IVPB Q8 RAOUL PRN Reason: Protocol Stop: 02/15/17 14:59 Last Admin: 02/15/17 08:19 Dose: 100 mls/hr Midazolam HCl (Versed Inj) 2 mg IVP Q4H PRN PRN Reason: Agitation Last Admin: 02/14/17 09:40 Dose: 2 mg Ondansetron HCl (Zofran Inj) 4 mg IVP Q6 PRN PRN Reason: Nausea/Vomiting Last Admin: 02/13/17 16:26 Dose: 4 mg Oxycodone HCl (Oxycodone Immediate Release Tab) 15 mg PO Q4 PRN PRN Reason: Pain, moderate (4-7) Last Admin: 02/14/17 00:59 Dose: 15 mg Oxycodone HCl (Oxycontin Extended Release Tab) 60 mg PO Q12H PRN PRN Reason: Pain, moderate (4-7) Last Admin: 02/13/17 18:52 Dose: 60 mg Pantoprazole Sodium (Protonix Inj) 40 mg IVP DAILY [facility] Last Admin: 02/14/17 11:55 Dose: 40 mg - Labs Labs: 02/15/17 06:14 02/15/17 06:14 PT 19.1 Seconds (9.9-11.8) H 02/14/17 22:59 INR 1.77 (0.93-1.08) H 02/14/17 22:59 APTT 33.9 Seconds (23.7-30.8) H 02/14/17 22:59 - Constitutional Appears: Chronically Ill - Head Exam Head Exam: NORMOCEPHALIC - Eye Exam Eye Exam: Normal appearance - Respiratory Exam Respiratory Exam: Decreased Breath Sounds Additional comments: intubated - Cardiovascular Exam Cardiovascular Exam: Tachycardia, +S1, +S2 - GI/Abdominal Exam GI & Abdominal Exam: Distended, Firm, Tenderness. absent: Soft Additional comments: Patient grimaces to abdominal palpation, does not withdraw from pain - Extremities Exam Extremities Exam: absent: Pedal Edema - Neurological Exam Neurological Exam: absent: Alert, Awake, Oriented x3 Additional comments: sedated Assessment and Plan - Assessment and Plan (Free Text) Assessment: 51 y/o female w/ shock and multi-system organ failure w/ pneumoperitoneum 2/2 intestinal perforation -acute care by ICU team -patient remains intubated at this time -C/w Abx per ID -Give 2 FFP and platelets, On hold 4 PRBC and 2 FFP -Although patient may benefit from surgical intervention, will not intervene at present time as patient's mother has refused intervention at this moment in time. Will monitor. -Discussed with Dr. Marti. Further recs per Dr. Marti. <Dheeraj Marti - Last Filed: 02/15/17 23:21> Objective - Vital Signs/Intake and Output Vital Signs (last 24 hours): Temp Pulse Resp BP Pulse Ox 100.0 F H 92 H 37 H 96/67 L 93 L 02/15/17 18:00 02/15/17 20:20 02/14/17 22:51 02/15/17 20:00 02/15/17 20:20 Intake and Output: 02/15/17 02/16/17 18:59 06:59 Intake Total 1750 Output Total 800 Balance 950 - Medications Medications: Current Medications Arformoterol Tartrate (Brovana) 15 mcg IH [id number] [facility] Last Admin: 02/15/17 19:42 Dose: 15 mcg Budesonide (Pulmicort Respules) 0.5 mg IH [id number] [facility] Last Admin: 02/15/17 19:43 Dose: 0.5 mg Clonazepam (Klonopin) 1 mg PO BID [facility] PRN Reason: Protocol Last Admin: 02/14/17 10:00 Dose: Not Given Gabapentin (Neurontin) 800 mg PO QID [facility] Last Admin: 02/14/17 13:29 Dose: Not Given Heparin Sodium (Porcine) (Heparin) 5,000 units SC Q8 RAOUL PRN Reason: Protocol Last Admin: 02/14/17 05:36 Dose: Not Given Hydrocortisone Sodium Succinate (Solu-Cortef) 50 mg IVP Q6H [facility] Last Admin: 02/15/17 20:24 Dose: 50 mg NOREPINEPHRINE BIT/0.9 % NACL (Levophed 4 Mg/ 250 Ml Ns Premixed) 4 mg in 250 mls @ 15 mls/hr IV .[id number] PRN; Protocol; 4 MCG/MIN PRN Reason: TITRATE PER MD ORDER Last Admin: 02/15/17 02:00 Dose: 20 mcg/min, 75 mls/hr Vasopressin 20 units/ Dextrose 101 mls @ 9.09 mls/hr IV .Q11H7M RAOUL; 0.03 U/MIN PRN Reason: Protocol Last Admin: 02/15/17 06:31 Dose: 9.09 mls/hr Fentanyl Citrate (Fentanyl Citrate/Sodium Chloride 1 Mg/100 Ml) 1,000 mcg in 100 mls @ 7.5 mls/hr IV .[id number] PRN; Protocol; 75 MCG/HR PRN Reason: TITRATE PER MD ORDER Last Admin: 02/15/17 08:15 Dose: 150 mcg/hr, 15 mls/hr Sodium Bicarbonate 150 meq/ (Dextrose) 1,150 mls @ 150 mls/hr IV .Q7H40M [facility] Last Admin: 02/14/17 23:45 Dose: 150 mls/hr Midazolam 100 mg/100ml in NS (Midazolam 100 Mg/100ml In Ns) 100 mg in 100 mls @ 7 mls/hr IV .[id number] PRN; Protocol; 7 MG/HR PRN Reason: Agitation Last Admin: 02/15/17 08:16 Dose: 7 mg/hr, 7 mls/hr Epinephrine HCl 1 mg/ Sodium (Chloride) 51 mls @ 15.3 mls/hr IV .Q3H20M PRN; Protocol; 5 MCG/MIN PRN Reason: TITRATE PER MD ORDER Last Titration: 02/15/17 11:30 Dose: 0 mcg/min, 0 mls/hr Dobutamine HCl/Dextrose (Dobutamine/Dextrose 5% 500mg/250ml) 500 mg in 250 mls @ 3.844 mls/hr IV .Q24H PRN; Protocol; 2.5 MCG/KG/MIN PRN Reason: TITRATE PER PROTOCOL Last Admin: 02/14/17 14:47 Dose: 3.844 mls/hr Meropenem 1g/NS 100mL IVPB (Meropenem 1g/Ns 100ml Ivpb) 1 gm in 100 mls @ 100 mls/hr IVPB Q8 RAOUL PRN Reason: Protocol Last Admin: 02/15/17 22:13 Dose: 100 mls/hr Midazolam HCl (Versed Inj) 2 mg IVP Q4H PRN PRN Reason: Agitation Last Admin: 02/14/17 09:40 Dose: 2 mg Ondansetron HCl (Zofran Inj) 4 mg IVP Q6 PRN PRN Reason: Nausea/Vomiting Last Admin: 02/13/17 16:26 Dose: 4 mg Oxycodone HCl (Oxycodone Immediate Release Tab) 15 mg PO Q4 PRN PRN Reason: Pain, moderate (4-7) Last Admin: 02/14/17 00:59 Dose: 15 mg Oxycodone HCl (Oxycontin Extended Release Tab) 60 mg PO Q12H PRN PRN Reason: Pain, moderate (4-7) Last Admin: 02/13/17 18:52 Dose: 60 mg Pantoprazole Sodium (Protonix Inj) 40 mg IVP DAILY [facility] Last Admin: 02/15/17 10:42 Dose: 40 mg - Labs Labs: 02/15/17 06:14 02/15/17 06:14 PT 19.1 Seconds (9.9-11.8) H 02/14/17 22:59 INR 1.77 (0.93-1.08) H 02/14/17 22:59 APTT 33.9 Seconds (23.7-30.8) H 02/14/17 22:59 Assessment and Plan - Assessment and Plan (Free Text) Assessment: Patient was seen and examined by me. I agree with assessment and plan as per resident's note.And discuss patient status with her mother Mrs. Hartman. I explained at length current patient condition and the possibility that the surgical intervention could possibly improve her short term outcome. However her mother is concerned with an underlying metastatic owens cancer and poor prognosis related to that diagnosis. At this time she declined the consent for surgical intervention. I will keep her updated on the patient status and ask her to reconsider her decision if there are any changes to the patient status.
--- NOTE | 2017-02-15 10:00 | PN ---
DATE: 02/15/2017 The patient is seen and examined at bedside. She is sedated with fentanyl 150 mcg per hour and Versed 4 mg per hour. She is on PRVC 340/35/5/50. She is on bicarb 150 mL per hour. She is on dobutamine 5 mcg per kilogram per minute. She is on epinephrine 1 mcg per minute, norepinephrine 20 mcg per minute. She is on vasopressin 0.03 units per minute. On that setting, her vital signs are as follows: PHYSICAL EXAMINATION: VITAL SIGNS: Heart rate 92. Oxygen saturation on the ABG is 94%. Blood pressure 113/84, end tidal CO2 of 24. The patient is not overbreathing vent at present time. HEAD AND NECK: Atraumatic. LUNGS: Decreased breath sounds bilaterally. HEART: Regular rate and rhythm. S1, S2 distant. ABDOMEN: Distended, a little bit tense. Colostomy looks viable. Some fecal matter present. There is biliary content coming out of NG-tube, which is on suction. MUSCULOSKELETAL: No C/C/E. NEUROLOGIC: The patient is sedated. SKIN: Moist. PSYCHIATRIC: The patient is sedated. LABORATORY DATA: WBC 4.4, hemoglobin 10.7, platelet count 79. Sodium 138, potassium 4.5, chloride 106, carbon dioxide 20, up from 16. BUN 32, creatinine 1.9 down from 2.1. Glucose 135. Albumin 2.7. ABGs showed 7.43/29/68/94. Glucose 147. Lactic acid 4.2, down from 5.7. MEDICATIONS: Tylenol IV p.r.n., Brovana, Pulmicort, dobutamine, epinephrine, fentanyl, hydrocortisone 50 mg IV q. 6, meropenem 1 gram IV q. 8, Versed p.r.n. , norepinephrine, Zofran p.r.n., Protonix daily, bicarbonate drip 150 mL per hour, vancomycin IV vasopressin, and Versed. ASSESSMENT AND PLAN: This is a 51-year-old lady with septic shock and multiorgan system failure, today showed some signs of improvement including decrement in creatinine level, decrement in vasopressor support requirement ( epinephrine down to 1 mcg per minute from 5), resolution of acidosis, improvement in urine output (450 mL overnight). The patient still requires significant vasopressor and inotropic support, as well as ventilatory support. 1. Neurologic: The patient is sedated and very synchronous ventilator. 2. Pulmonary: We will continue with protective lung ventilation strategy. We will continue with euvolemia. Once shock resolves, consideration will be given to conservative fluid management. We will continue with conservative oxygen management. We will continue with head of bed elevated more than 35 degrees. Once shock is resolved, we will continue with daily weaning trial and sedation medication. 3. Cardiovascular: The patient is still on significant vasopressor support including norepinephrine 20, vasopressin 0.03 units per minute, dobutamine 5 mcg per kilogram per minute, and epinephrine 1 mcg per minute. She has septic cardiomyopathy and her ejection fraction was estimated in mid 20s. The patient appears to be fluid resuscitated with improvement in renal function and trending down lactic acid level. 4. Gastrointestinal: The patient was evaluated by Dr. Marti yesterday. Today patient appears to be as much optimized for surgery as possible in a given situation and Dr. Marti was contemplating exlap, however patient's mother revoked consent for the surgery and requested DNR order for her daughter (as per Dr. Marti who spoke with patient's mother). The abdominal exam appears to be unchanged. Colostomy looked viable. Patient will be closely monitored by surgical team and will revisit question of surgery with patient's mom in am.. 5. Infectious disease: The patient is afebrile and no leukocytosis. However, she is mildly leukopenic as a part of pancytopenia syndrome. The patient is in septic shock. Broad-spectrum antibiotics are continued. Infectious disease service is appreciated. Septic workup is in progress. Blood, urine, and sputum culture will be sent. Procalcitonin is pending. 6. Heme: The patient is pancytopenic and has disseminated intravascular coagulation related to septic shock. If patient would go for surgery we will aggressively supplement platelets and coagulation factors. Otherwise, in the absence of active bleeding, we will maintain platelets above 10, and maintain hemoglobin above 7. We will continue aggressive support and treatment of septic shock. 7. Renal: The patient started making more urine, and creatinine level was going down. Her renal function appears to be recovering. I will stop IVF as patient is very positive in terms of fluid balance (which is poor prognostic feature) and rapidly weaning off of pressors. Once shock resolved will proceed with conservative fluid management and aggressive diuresis. 8. Endocrine: We will continue to maintain blood glucose within 140-180 range and avoid hypoglycemia. The patient is on stress-dose steroids. We will continue mechanical deep venous thrombosis prophylaxis. We will continue with gastrointestinal prophylaxis. ccm time 40 min Van Lopez MD cc: [id number] TT: 02/15/2017 10:00:35 Confirmation # [id number] Dictation # [id number] MTDD
--- NOTE | 2017-02-15 10:30 | CP.PCM.PN ---
<Jada Cohen - Last Filed: 02/15/17 11:04> Subjective - Date & Time of Evaluation Date of Evaluation: 02/15/17 Time of Evaluation: 10:22 - Subjective Subjective: HOSPITALISTS PROGRESS NOTE Pt is seen and examined this morning. Patient remains intubated on PRVC vent setting. Patient is on multiple pressors for hemodynamic stability. Patient has NG tube in place with about 1300 output. Patient' mother was contacted by surgical attending. She was explained the diagnosis of bowel perforation and explained the risks and benefits of surgical intervention. Mother states that she wants no heroic measures to be taken at this time. Patient is made DNR code status. Patient does not withdraw to painful stimuli in extremities but she does grimace to pain when abdomen is palpated. ROS are unobtainable. Objective - Vital Signs/Intake and Output Vital Signs (last 24 hours): Temp Pulse Resp BP Pulse Ox 98.1 F 95 H 37 H 117/87 89 L 02/14/17 18:00 02/15/17 06:20 02/14/17 22:51 02/15/17 06:31 02/15/17 06:20 Intake and Output: 02/15/17 02/15/17 06:59 18:59 Intake Total 4507 Output Total 1000 Balance 3507 - Medications Medications: Current Medications Arformoterol Tartrate (Brovana) 15 mcg IH [id number] [facility] Last Admin: 02/15/17 08:05 Dose: 15 mcg Budesonide (Pulmicort Respules) 0.5 mg IH [id number] [facility] Last Admin: 02/15/17 08:05 Dose: 0.5 mg Clonazepam (Klonopin) 1 mg PO BID RAOUL PRN Reason: Protocol Last Admin: 02/14/17 10:00 Dose: Not Given Gabapentin (Neurontin) 800 mg PO QID [facility] Last Admin: 02/14/17 13:29 Dose: Not Given Heparin Sodium (Porcine) (Heparin) 5,000 units SC Q8 RAOUL PRN Reason: Protocol Last Admin: 02/14/17 05:36 Dose: Not Given Hydrocortisone Sodium Succinate (Solu-Cortef) 50 mg IVP Q6H [facility] Last Admin: 02/15/17 08:14 Dose: 50 mg Vancomycin HCl (Vancomycin 500mg In Ns) 500 mg in 100 mls @ 200 mls/hr IVPB Q12 RAOUL PRN Reason: Protocol Last Admin: 02/14/17 22:30 Dose: 200 mls/hr NOREPINEPHRINE BIT/0.9 % NACL (Levophed 4 Mg/ 250 Ml Ns Premixed) 4 mg in 250 mls @ 15 mls/hr IV .[id number] PRN; Protocol; 4 MCG/MIN PRN Reason: TITRATE PER MD ORDER Last Admin: 02/15/17 02:00 Dose: 20 mcg/min, 75 mls/hr Vasopressin 20 units/ Dextrose 101 mls @ 9.09 mls/hr IV .Q11H7M RAOUL; 0.03 U/MIN PRN Reason: Protocol Last Admin: 02/15/17 06:31 Dose: 9.09 mls/hr Fentanyl Citrate (Fentanyl Citrate/Sodium Chloride 1 Mg/100 Ml) 1,000 mcg in 100 mls @ 7.5 mls/hr IV .[id number] PRN; Protocol; 75 MCG/HR PRN Reason: TITRATE PER MD ORDER Last Admin: 02/15/17 08:15 Dose: 150 mcg/hr, 15 mls/hr Sodium Bicarbonate 150 meq/ (Dextrose) 1,150 mls @ 150 mls/hr IV .Q7H40M RAOUL Last Admin: 02/14/17 23:45 Dose: 150 mls/hr Midazolam 100 mg/100ml in NS (Midazolam 100 Mg/100ml In Ns) 100 mg in 100 mls @ 7 mls/hr IV .[id number] PRN; Protocol; 7 MG/HR PRN Reason: Agitation Last Admin: 02/15/17 08:16 Dose: 7 mg/hr, 7 mls/hr Epinephrine HCl 1 mg/ Sodium (Chloride) 51 mls @ 15.3 mls/hr IV .Q3H20M PRN; Protocol; 5 MCG/MIN PRN Reason: TITRATE PER MD ORDER Last Titration: 02/15/17 06:30 Dose: 3 mcg/min, 9.18 mls/hr Dobutamine HCl/Dextrose (Dobutamine/Dextrose 5% 500mg/250ml) 500 mg in 250 mls @ 3.844 mls/hr IV .Q24H PRN; Protocol; 2.5 MCG/KG/MIN PRN Reason: TITRATE PER PROTOCOL Last Admin: 02/14/17 14:47 Dose: 3.844 mls/hr Meropenem 1g/NS 100mL IVPB (Meropenem 1g/Ns 100ml Ivpb) 1 gm in 100 mls @ 100 mls/hr IVPB Q8 RAOUL PRN Reason: Protocol Stop: 02/15/17 14:59 Last Admin: 02/15/17 08:19 Dose: 100 mls/hr Midazolam HCl (Versed Inj) 2 mg IVP Q4H PRN PRN Reason: Agitation Last Admin: 02/14/17 09:40 Dose: 2 mg Ondansetron HCl (Zofran Inj) 4 mg IVP Q6 PRN PRN Reason: Nausea/Vomiting Last Admin: 02/13/17 16:26 Dose: 4 mg Oxycodone HCl (Oxycodone Immediate Release Tab) 15 mg PO Q4 PRN PRN Reason: Pain, moderate (4-7) Last Admin: 02/14/17 00:59 Dose: 15 mg Oxycodone HCl (Oxycontin Extended Release Tab) 60 mg PO Q12H PRN PRN Reason: Pain, moderate (4-7) Last Admin: 02/13/17 18:52 Dose: 60 mg Pantoprazole Sodium (Protonix Inj) 40 mg IVP DAILY [facility] Last Admin: 02/14/17 11:55 Dose: 40 mg - Labs Labs: 02/15/17 06:14 02/15/17 06:14 PT 19.1 Seconds (9.9-11.8) H 02/14/17 22:59 INR 1.77 (0.93-1.08) H 02/14/17 22:59 APTT 33.9 Seconds (23.7-30.8) H 02/14/17 22:59 - Constitutional Appears: Toxic - Head Exam Head Exam: ATRAUMATIC - ENT Exam ENT Exam: Mucous Membranes Moist Additional comments: NG tube in place - Respiratory Exam Respiratory Exam: absent: Accessory Muscle Use, Respiratory Distress - Cardiovascular Exam Cardiovascular Exam: REGULAR RHYTHM - GI/Abdominal Exam GI & Abdominal Exam: Distended, Firm, Guarding, Rigid, Tenderness, Hypoactive Bowel Sounds. absent: Soft, Normal Bowel Sounds - Extremities Exam Extremities Exam: absent: Pedal Edema - Neurological Exam Neurological Exam: absent: Alert, Awake, Oriented x3 - Skin Additional comments: mottled skin noted in extremities. LE B/L cold to touch Assessment and Plan - Assessment and Plan (Free Text) Assessment: 51 year old female with past medical history of Crohns disease, asthma, bipolar disorder, polysubstance abuse and recent diagnoses of adenocarcinoma of the colon is in septic shock currently in ICU. Patient is intubated on PRVC. She is on multiple pressors including: epinephrine, levophed and vassopresin. CT of abd/pelvis shows pneumoperitoneum. 1. Septic shock 2/2 abdominal perforation vs. PNA - Continue pressors for hemodynamic stability - She is also on bicarb drip and sulocortef - Continue abx: vancomycin 2. Acute abdomen - CT of abdomen showed new extensive B/L consolidations at lung bases. Extensive abdominal ascites and pneumoperitoneum. Stable R hydronephrosis and extensive abdominal pelvic lymphadenopathy - Surgery is consulted. After discussing with family, surgical intervention is on hold. - Will continue to monitor 3. DIC - Patient received 6 units of PRBC, 6 units of FFP, and 2 untis of platelets. - Increased fibrinogen degradation product. d dimer remains elevated. 4. Adenocarcinoma of colon: consulted heme/onc. Ct of chest shows interstitial infiltrates with extensive bibasilar consolidations. Extensive B/L and medistinal LAD. 5. Normocytic anemia Iron studies show high iron, low TIBC and high % saturation. High iron level may be due to recent transfusion Pt scheduled for colonoscopy today 6. Polysubstance abuse: UDS is positive for opiates, benzos, cocaine Prophylaxis: Protonix. SCDs. Case discussed with attending, Dr. Haley <Cristina Haley - Last Filed: 02/15/17 15:21> Objective - Vital Signs/Intake and Output Vital Signs (last 24 hours): Temp Pulse Resp BP Pulse Ox 98.1 F 89 37 H 106/77 91 L 02/14/17 18:00 02/15/17 14:50 02/14/17 22:51 02/15/17 14:00 02/15/17 14:50 Intake and Output: 02/15/17 02/15/17 06:59 18:59 Intake Total 4507 Output Total 1000 Balance 3507 - Medications Medications: Current Medications Arformoterol Tartrate (Brovana) 15 mcg IH [id number] [facility] Last Admin: 02/15/17 08:05 Dose: 15 mcg Budesonide (Pulmicort Respules) 0.5 mg IH [id number] [facility] Last Admin: 02/15/17 08:05 Dose: 0.5 mg Clonazepam (Klonopin) 1 mg PO BID RAOUL PRN Reason: Protocol Last Admin: 02/14/17 10:00 Dose: Not Given Gabapentin (Neurontin) 800 mg PO QID [facility] Last Admin: 02/14/17 13:29 Dose: Not Given Heparin Sodium (Porcine) (Heparin) 5,000 units SC Q8 RAOUL PRN Reason: Protocol Last Admin: 02/14/17 05:36 Dose: Not Given Hydrocortisone Sodium Succinate (Solu-Cortef) 50 mg IVP Q6H [facility] Last Admin: 02/15/17 08:14 Dose: 50 mg Vancomycin HCl (Vancomycin 500mg In Ns) 500 mg in 100 mls @ 200 mls/hr IVPB Q12 RAOUL PRN Reason: Protocol Last Admin: 02/15/17 10:44 Dose: 200 mls/hr NOREPINEPHRINE BIT/0.9 % NACL (Levophed 4 Mg/ 250 Ml Ns Premixed) 4 mg in 250 mls @ 15 mls/hr IV .[id number] PRN; Protocol; 4 MCG/MIN PRN Reason: TITRATE PER MD ORDER Last Admin: 02/15/17 02:00 Dose: 20 mcg/min, 75 mls/hr Vasopressin 20 units/ Dextrose 101 mls @ 9.09 mls/hr IV .Q11H7M RAOUL; 0.03 U/MIN PRN Reason: Protocol Last Admin: 02/15/17 06:31 Dose: 9.09 mls/hr Fentanyl Citrate (Fentanyl Citrate/Sodium Chloride 1 Mg/100 Ml) 1,000 mcg in 100 mls @ 7.5 mls/hr IV .[id number] PRN; Protocol; 75 MCG/HR PRN Reason: TITRATE PER MD ORDER Last Admin: 02/15/17 08:15 Dose: 150 mcg/hr, 15 mls/hr Sodium Bicarbonate 150 meq/ (Dextrose) 1,150 mls @ 150 mls/hr IV .Q7H40M [facility] Last Admin: 02/14/17 23:45 Dose: 150 mls/hr Midazolam 100 mg/100ml in NS (Midazolam 100 Mg/100ml In Ns) 100 mg in 100 mls @ 7 mls/hr IV .[id number] PRN; Protocol; 7 MG/HR PRN Reason: Agitation Last Admin: 02/15/17 08:16 Dose: 7 mg/hr, 7 mls/hr Epinephrine HCl 1 mg/ Sodium (Chloride) 51 mls @ 15.3 mls/hr IV .Q3H20M PRN; Protocol; 5 MCG/MIN PRN Reason: TITRATE PER MD ORDER Last Titration: 02/15/17 06:30 Dose: 3 mcg/min, 9.18 mls/hr Dobutamine HCl/Dextrose (Dobutamine/Dextrose 5% 500mg/250ml) 500 mg in 250 mls @ 3.844 mls/hr IV .Q24H PRN; Protocol; 2.5 MCG/KG/MIN PRN Reason: TITRATE PER PROTOCOL Last Admin: 02/14/17 14:47 Dose: 3.844 mls/hr Meropenem 1g/NS 100mL IVPB (Meropenem 1g/Ns 100ml Ivpb) 1 gm in 100 mls @ 100 mls/hr IVPB Q8 RAOUL PRN Reason: Protocol Stop: 02/15/17 22:59 Midazolam HCl (Versed Inj) 2 mg IVP Q4H PRN PRN Reason: Agitation Last Admin: 02/14/17 09:40 Dose: 2 mg Ondansetron HCl (Zofran Inj) 4 mg IVP Q6 PRN PRN Reason: Nausea/Vomiting Last Admin: 02/13/17 16:26 Dose: 4 mg Oxycodone HCl (Oxycodone Immediate Release Tab) 15 mg PO Q4 PRN PRN Reason: Pain, moderate (4-7) Last Admin: 02/14/17 00:59 Dose: 15 mg Oxycodone HCl (Oxycontin Extended Release Tab) 60 mg PO Q12H PRN PRN Reason: Pain, moderate (4-7) Last Admin: 02/13/17 18:52 Dose: 60 mg Pantoprazole Sodium (Protonix Inj) 40 mg IVP DAILY [facility] Last Admin: 02/15/17 10:42 Dose: 40 mg - Labs Labs: 02/15/17 06:14 02/15/17 06:14 PT 19.1 Seconds (9.9-11.8) H 02/14/17 22:59 INR 1.77 (0.93-1.08) H 02/14/17 22:59 APTT 33.9 Seconds (23.7-30.8) H 02/14/17 22:59 Attending/Attestation - Attestation I have personally seen and examined this patient.: Yes I have fully participated in the care of the patient.: Yes I have reviewed all pertinent clinical information, including history, physical exam and plan: Yes Notes (Text): 02/15/17 15:14 attending note; Patient seen and examined with resident in icu. she is intubated. on 50% FiO2. Grimacing for abdominal examination. On fentanyl and midazolam. septic shock; secondary to perforated viscus. On imipenem. got vancomycin. Septic shock; currently on Levophed, dobutamin, vasopressin and epinephrine. blood pressure is acceptable. 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 Multiorgan failure; elevated LFT due to shock liver. Acute renal failure; due to hypoperfusion secondary to septic shock. Monitor urine output. Creatinine is slowly improving from 2.4-1.9. CT abdomen and pelvis showed Pneumoperitoneum and extensive hilar mediastinal lymphadenopathy. case discussed with surgery in detail. patient's mother refused surgery. Patient is DNR. Got PRBC, FFp and platelet transfusion yesterday. case discussed with Dr. Lucas oncologist in detail. Thrombocytopenia; DIC. HIT antibody is pending. the diagnosis and treatment plan discussed with patient's mother in detail. prognosis is poor. case discussed patient's PMD Dr. way in detail today.
[2017-02-15] MEDS: Vancomycin 500mg in NS 500 MG/100 ML BAG IVPB SCH (10:44)
[2017-02-15 11:30] LABS: VENOUS BLOOD GAS BASE EXCESS -2.4 mmol/L (0.0-2.0); VENOUS BLOOD PH 7.47 (7.32-7.43)
--- NOTE | 2017-02-15 11:49 | RAD ---
PROCEDURE: HISTORY: pneumonia COMPARISON: TECHNIQUE: FINDINGS: Diffuse bilateral interstitial infiltrates, right greater than left. Right CVP line tip overlies the right atrium. ETT above the siddharth. NG tube in the stomach. IMPRESSION: As above.
[2017-02-15 14:49] LABS: ARTERIAL BLOOD GAS HCO3 19.4 mmol/L (21-28); ARTERIAL BLOOD GAS O2 CAPACITY 13.1 mL/dl (16-24); ARTERIAL BLOOD GAS O2 CONTENT 12.4 ML/dl (15-23); ARTERIAL BLOOD GAS PH 7.48 (7.35-7.45); ARTERIAL BLOOD HGB O2 SAT 92.6 % (95.0-98.0); CARBOXYHEMOGLOBIN 1.6 % (0.5-1.5); HHB 5.2 % (0-5); METHEMOGLOBIN 0.6 % (0.0-3.0)
[2017-02-15] MEDS ORDERED: Meropenem 1g/NS 100mL IVPB 1 GM/100 ML PIGGYBACK IVPB SCH (15:15)
--- NOTE | 2017-02-15 18:22 | CP.PCM.PN ---
Subjective - Date & Time of Evaluation Date of Evaluation: 02/15/17 Time of Evaluation: 17:15 - Subjective Subjective: Infectious Disease Follow Up: February 15, 2017 50 yo female with history of Crohn's disease admitted for groin and abdominal pain. She was recently discharged from the hospital with doxycycline and augmentin. During the hospitalization the patient short of breath, tachycardic , and tachypnic. Patient became hypotensive and required admission to the MICU. The patient required pressors and intubation and ventilation. The patient is on 4 pressors and received 4 units of PRBCs and FFPs. Very poor prognosis. The patient remains intubated. At best grimaces with noxious stimuli. Objective - Vital Signs/Intake and Output Vital Signs (last 24 hours): Temp Pulse Resp BP Pulse Ox 98.1 F 93 H 37 H 100/67 94 L 02/14/17 18:00 02/15/17 17:40 02/14/17 22:51 02/15/17 17:30 02/15/17 17:40 Intake and Output: 02/15/17 02/15/17 06:59 18:59 Intake Total 4507 0 Output Total 1000 Balance 3507 0 - Medications Medications: Current Medications Arformoterol Tartrate (Brovana) 15 mcg IH [id number] [facility] Last Admin: 02/15/17 08:05 Dose: 15 mcg Budesonide (Pulmicort Respules) 0.5 mg IH [id number] [facility] Last Admin: 02/15/17 08:05 Dose: 0.5 mg Clonazepam (Klonopin) 1 mg PO BID [facility] PRN Reason: Protocol Last Admin: 02/14/17 10:00 Dose: Not Given Gabapentin (Neurontin) 800 mg PO QID [facility] Last Admin: 02/14/17 13:29 Dose: Not Given Heparin Sodium (Porcine) (Heparin) 5,000 units SC Q8 RAOUL PRN Reason: Protocol Last Admin: 02/14/17 05:36 Dose: Not Given Hydrocortisone Sodium Succinate (Solu-Cortef) 50 mg IVP Q6H [facility] Last Admin: 02/15/17 15:16 Dose: 50 mg NOREPINEPHRINE BIT/0.9 % NACL (Levophed 4 Mg/ 250 Ml Ns Premixed) 4 mg in 250 mls @ 15 mls/hr IV .[id number] PRN; Protocol; 4 MCG/MIN PRN Reason: TITRATE PER MD ORDER Last Admin: 02/15/17 02:00 Dose: 20 mcg/min, 75 mls/hr Vasopressin 20 units/ Dextrose 101 mls @ 9.09 mls/hr IV .Q11H7M RAOUL; 0.03 U/MIN PRN Reason: Protocol Last Admin: 02/15/17 06:31 Dose: 9.09 mls/hr Fentanyl Citrate (Fentanyl Citrate/Sodium Chloride 1 Mg/100 Ml) 1,000 mcg in 100 mls @ 7.5 mls/hr IV .[id number] PRN; Protocol; 75 MCG/HR PRN Reason: TITRATE PER MD ORDER Last Admin: 02/15/17 08:15 Dose: 150 mcg/hr, 15 mls/hr Sodium Bicarbonate 150 meq/ (Dextrose) 1,150 mls @ 150 mls/hr IV .Q7H40M [facility]OU[facility] Last Admin: 02/14/17 23:45 Dose: 150 mls/hr Midazolam 100 mg/100ml in NS (Midazolam 100 Mg/100ml In Ns) 100 mg in 100 mls @ 7 mls/hr IV .[id number] PRN; Protocol; 7 MG/HR PRN Reason: Agitation Last Admin: 02/15/17 08:16 Dose: 7 mg/hr, 7 mls/hr Epinephrine HCl 1 mg/ Sodium (Chloride) 51 mls @ 15.3 mls/hr IV .Q3H20M PRN; Protocol; 5 MCG/MIN PRN Reason: TITRATE PER MD ORDER Last Titration: 02/15/17 11:30 Dose: 0 mcg/min, 0 mls/hr Dobutamine HCl/Dextrose (Dobutamine/Dextrose 5% 500mg/250ml) 500 mg in 250 mls @ 3.844 mls/hr IV .Q24H PRN; Protocol; 2.5 MCG/KG/MIN PRN Reason: TITRATE PER PROTOCOL Last Admin: 02/14/17 14:47 Dose: 3.844 mls/hr Meropenem 1g/NS 100mL IVPB (Meropenem 1g/Ns 100ml Ivpb) 1 gm in 100 mls @ 100 mls/hr IVPB Q8 RAOUL PRN Reason: Protocol Last Admin: 02/15/17 18:09 Dose: Not Given Midazolam HCl (Versed Inj) 2 mg IVP Q4H PRN PRN Reason: Agitation Last Admin: 02/14/17 09:40 Dose: 2 mg Ondansetron HCl (Zofran Inj) 4 mg IVP Q6 PRN PRN Reason: Nausea/Vomiting Last Admin: 02/13/17 16:26 Dose: 4 mg Oxycodone HCl (Oxycodone Immediate Release Tab) 15 mg PO Q4 PRN PRN Reason: Pain, moderate (4-7) Last Admin: 02/14/17 00:59 Dose: 15 mg Oxycodone HCl (Oxycontin Extended Release Tab) 60 mg PO Q12H PRN PRN Reason: Pain, moderate (4-7) Last Admin: 02/13/17 18:52 Dose: 60 mg Pantoprazole Sodium (Protonix Inj) 40 mg IVP DAILY [facility]OUL Last Admin: 02/15/17 10:42 Dose: 40 mg - Labs Labs: 02/15/17 06:14 02/15/17 06:14 PT 19.1 Seconds (9.9-11.8) H 02/14/17 22:59 INR 1.77 (0.93-1.08) H 02/14/17 22:59 APTT 33.9 Seconds (23.7-30.8) H 02/14/17 22:59 - Constitutional Appears: Non-toxic, No Acute Distress - Head Exam Head Exam: ATRAUMATIC, NORMOCEPHALIC - Eye Exam Eye Exam: EOMI, PERRL Pupil Exam: NORMAL ACCOMODATION, PERRL - ENT Exam ENT Exam: Mucous Membranes Moist, Normal External Ear Exam, TM's Normal Bilaterally - Neck Exam Neck Exam: Full ROM, Normal Inspection - Respiratory Exam Respiratory Exam: Clear to Ausculation Bilateral, NORMAL BREATHING PATTERN. absent: Rales, Rhonchi, Wheezes - Cardiovascular Exam Cardiovascular Exam: Tachycardia, RRR, +S1, +S2 - GI/Abdominal Exam GI & Abdominal Exam: Soft, Normal Bowel Sounds. absent: Distended, Tenderness - Extremities Exam Extremities Exam: Full ROM, Normal Inspection - Neurological Exam Additional comments: AAO x 0, intubated and ventilated. unresponsive. - Psychiatric Exam Additional comments: unresponsive Assessment and Plan - Assessment and Plan (Free Text) Assessment: 51 yo female currently intubated and ventilated and poorly responsive with hypotension requiring pressor support with 4 medications. Currently on Meropenem and Vancomycin. Extremely poor prognosis. Supportive care. There were concerns for abdominal perforation and findings of extensive abdominal ascites and pneumoperitoneum. Severe anemia requiring PRBC transfusions. Meropenem is a reasonable choice for generalized antibiotic coverage. Supportive care. Case discussed with Dr. Lopez and Tera. Dismal prognosis. Thank you for allowing me to participate in the care of the patient, we will follow with you.
[2017-02-15] MEDS: DOBUTamine 500mg/250ml D5W 500 MG/250 ML BAG IV PRN (23:00)
[2017-02-16] MEDS: Fentanyl 1000mcg/100ml NS 1,000 MCG/100 ML BAG IV PRN ×3 (02:52→16:00)
[2017-02-16] MEDS: Vasopressin 20 UNITS in Dextrose 5% In Water 100 ML IV SCH ×2 (04:00→15:15)
[2017-02-16 05:56] LABS: ARTERIAL BLOOD GAS HCO3 22.8 mmol/L (21-28); ARTERIAL BLOOD GAS PH 7.46 (7.35-7.45)
[2017-02-16 06:20] LABS: ADD MANUAL DIFF? NO
[2017-02-16 06:33] LABS: INR 1.64 (0.93-1.08); PARTIAL THROMBOPLASTIN TIME 33.6 Seconds (23.7-30.8)
[2017-02-16 06:35] LABS: ALB/GLOB RATIO 0.9 (1.1-1.8); BILIRUBIN,TOTAL 1.4 mg/dL (0.2-1.3); MAGNESIUM 1.6 mg/dL (1.7-2.2); POTASSIUM 3.4 mmol/L (3.6-5.0); TOTAL PROTEIN 5.5 g/dL (5.8-8.3)
[2017-02-16 06:36] LABS: BASO # 0.03 K/mm3 (0.0-2.0); BASO % 0.9 % (0.0-3.0); EOS # 0.1 (0.0-0.7); EOS % 3.4 % (1.5-5.0); GRAN # 2.54 (1.4-6.5); GRAN % 77.4 % (50.0-68.0); LYMPH # 0.5 (1.2-3.4); LYMPH % 16.2 % (22.0-35.0); MEAN CORPUSCULAR HEMOGLOBIN 29.3 pg (25.0-35.0); MEAN CORPUSCULAR HGB CONC 35.3 g/dl (31.0-37.0); MONO # 0.1 (0.1-0.6); MONO % 2.1 % (1.0-6.0); PLATELET COUNT 51 10^3/uL (120.0-450.0); RED CELL DISTRIBUTION WIDTH 16.8 % (11.5-14.5); WHITE BLOOD COUNT 3.3 10^3/ul (4.5-11.0)
[2017-02-16 06:44] LABS: PHOSPHOROUS 5.8 mg/dL (2.5-4.5)
[2017-02-16] MEDS: Sodium Bicarbonate 8.4% 150 MEQ in Dextrose 5% In Water 1,000 ML IV SCH ×2 (06:54→06:55)
[2017-02-16] MEDS: Meropenem 1g/NS 100mL IVPB 1 GM/100 ML PIGGYBACK IVPB SCH ×3 (06:55→21:23)
[2017-02-16 07:02] LABS: HEMATOCRIT 23.5 % (36.0-48.0)
[2017-02-16 07:03] LABS: CALCIUM 6.8 mg/dL (8.4-10.5)
--- NOTE | 2017-02-16 07:24 | CP.CCUPN ---
<Pacheco Alcala - Last Filed: 02/16/17 13:18> CCU Subjective - Physician Review Events Since Last Encounter (Free Text): No acute events overnight, Tmax 100.6 02/16/17 09:31 Subjective (Free Text): Patient is currently intubated and sedated, non responsive to noxious stimuli. 02/16/17 07:23 CCU Objective - Vital Signs / Intake & Output Vital Signs (Last 4 hours): Vital Signs Pulse BP Pulse Ox 02/16/17 07:00 98 H 89/62 L 90 L 02/16/17 06:50 93 H 90 L 02/16/17 06:40 93 H 90 L 02/16/17 06:30 94 H 91/61 L 90 L 02/16/17 06:20 99 H 89 L 02/16/17 06:10 96 H 90 L 02/16/17 06:09 95 H 95/64 L 91 L 02/16/17 06:00 86 78/54 L 96 02/16/17 05:50 84 92 L 02/16/17 05:40 85 89 L 02/16/17 05:30 91 H 88 L 02/16/17 05:20 92 H 90 L 02/16/17 05:11 94 H 02/16/17 05:10 94 H 83 L 02/16/17 05:00 92 H 115/81 93 L 02/16/17 04:50 93 H 90 L 02/16/17 04:40 93 H 90 L 02/16/17 04:30 93 H 98/64 L 92 L 02/16/17 04:20 93 H 91 L 02/16/17 04:10 93 H 91 L 02/16/17 04:00 92 H 100/68 91 L 02/16/17 03:50 93 H 91 L 02/16/17 03:40 92 H 90 L 02/16/17 03:30 91 H 95/64 L 91 L Intake and Output (Last 8hrs): Intake & Output 02/15/17 02/16/17 02/16/17 22:59 06:59 14:59 Intake Total 0610 597 2750 Output Total 800 650 Balance 950 106 416 Intake: IV 1200 106 516 Right Internal Jugular 1200 512 Blood Product 550 550 Output: Gastric Amount 350 150 Left 50 Stomach 350 100 Urine 450 500 Urine, Voided 450 500 Other: Voiding Method Indwelling Catheter # Bowel Movements 0 - Physical Exam Head: Positive for: Atraumatic, Normocephalic Pupils: Positive for: Pinpoint Extroacular Muscles: Positive for: EOMI Conjunctiva: Positive for: Normal Mouth: Positive for: Moist Mucous Membranes Neck: Positive for: Normal Range of Motion Respiratory/Chest: Positive for: Other (Patient is currently ventilated). Negative for: Respiratory Distress, Accessory Muscle Use Cardiovascular: Positive for: Regular Rate and Rhythm, Normal S1, S2. Negative for: Murmurs Abdomen: Positive for: Normal Bowel Sounds, Other (ostomy bag in place with no surrounding erythema or signs of infection). Negative for: Tenderness, Distention, Peritoneal Signs, Rebound, Guarding Genitourinary/Pelvic Exam: Positive for: Other (Uribe catheter in place with purulent output) Back: Positive for: Normal Inspection Upper Extremity: Positive for: Normal Inspection, Swelling, Other (distal extremities warm to the touch, however pulses non palpable). Negative for: Cyanosis, Edema Lower Extremity: Positive for: Swelling. Negative for: Other (DP and PT faintly palpable, skin warm to the touch) Neurological: Positive for: Other (GCS 3) Skin: Positive for: Warm, Dry, Rashes, Other (Petechia noted on extremities) Lymphatic: Positive for: Inguinal Adenopathy (bilaterally) Psychiatric: Positive for: Other (Unable to asses due to GCS 3) - Medications Active Medications: Active Medications Generic Name Dose Route Start Last Admin Trade Name Freq PRN Reason Stop Dose Admin Arformoterol Tartrate 15 mcg 02/11/17 20:00 02/15/17 19:42 Brovana IH 15 mcg [id number] RAOUL Administration Budesonide 0.5 mg 02/11/17 20:00 02/15/17 19:43 Pulmicort Respules IH 0.5 mg [id number] RAOUL Administration Clonazepam 1 mg 02/11/17 18:00 02/14/17 10:00 Klonopin PO Not Given BID RAOUL Protocol Gabapentin 800 mg 02/11/17 14:00 02/14/17 13:29 Neurontin PO Not Given QID RAOUL Heparin Sodium (Porcine) 5,000 units 02/14/17 01:45 02/16/17 06:55 Heparin SC 5,000 units Q8 RAOUL Administration Protocol Hydrocortisone Sodium Succinate 50 mg 02/14/17 07:30 02/16/17 01:45 Solu-Cortef IVP 50 mg Q6H RAOUL Administration NOREPINEPHRINE BIT/0.9 % NACL 4 mg in 250 mls @ 15 mls/hr 02/14/17 04:28 01/28 07:21 Levophed 4 Mg/ 250 Ml Ns Premixed IV 4 mcg/min .[id number] PRN 15 mls/hr TITRATE PER MD ORDER Titration Protocol 4 MCG/MIN Vasopressin 20 units/ Dextrose 101 mls @ 9.09 mls/hr 02/14/17 07:30 02/16/17 04:00 IV 9.09 mls/hr .[id number] RAOUL Administration Protocol 0.03 U/MIN Fentanyl Citrate 1,000 mcg in 100 mls @ 7.5 mls/hr 02/14/17 08:03 02/16/17 02 :52 Fentanyl Citrate/Sodium Chloride 1 Mg/100 Ml IV 150 mcg/hr .[id number] PRN 15 mls/hr TITRATE PER MD ORDER Administration Protocol 75 MCG/HR Sodium Bicarbonate 150 meq/ 1,150 mls @ 150 mls/hr 02/14/17 08:15 02/16/17 06 :55 Dextrose IV Not Given .[id number] RAOUL Midazolam 100 mg/100ml in NS 100 mg in 100 mls @ 7 mls/hr 02/14/17 11:42 01/28 00:00 Midazolam 100 Mg/100ml In Ns IV 4 mg/hr .[id number] PRN 4 mls/hr Agitation Titration Protocol 7 MG/HR Epinephrine HCl 1 mg/ Sodium 51 mls @ 15.3 mls/hr 02/14/17 13:12 02/15/17 11: 30 Chloride IV 0 mcg/min .[id number] PRN 0 mls/hr TITRATE PER MD ORDER Titration Protocol 5 MCG/MIN Dobutamine HCl/Dextrose 500 mg in 250 mls @ 3.844 mls/hr 02/14/17 14:15 02/15 23:00 Dobutamine/Dextrose 5% 500mg/250ml IV 3.844 mls/hr .Q24H PRN Administration TITRATE PER PROTOCOL Protocol 2.5 MCG/KG/MIN Meropenem 1g/NS 100mL IVPB 1 gm in 100 mls @ 100 mls/hr 02/15/17 17:00 06:55 Meropenem 1g/Ns 100ml Ivpb IVPB 100 mls/hr Q8 RAOUL Administration Protocol Midazolam HCl 2 mg 02/14/17 08:03 02/14/17 09:40 Versed Inj IVP 2 mg Q4H PRN Administration Agitation Ondansetron HCl 4 mg 02/11/17 13:30 02/13/17 16:26 Zofran Inj IVP 4 mg Q6 PRN Administration Nausea/Vomiting Oxycodone HCl 15 mg 02/12/17 07:42 02/14/17 00:59 Oxycodone Immediate Release Tab PO 15 mg Q4 PRN Administration Pain, moderate (4-7) Oxycodone HCl 60 mg 02/12/17 07:42 02/13/17 18:52 Oxycontin Extended Release Tab PO 60 mg Q12H PRN Administration Pain, moderate (4-7) Pantoprazole Sodium 40 mg 02/14/17 10:00 02/15/17 10:42 Protonix Inj IVP 40 mg DAILY RAOUL Administration - Patient Studies Lab Studies: Microbiology Studies 02/14/17 02:30 MRSA Culture (Admit) - Final Naris MRSA NOT DETECTED 02/14/17 04:50 Urine Culture - Preliminary Urine,Clean Catch Gram Negative Ed Gram Negative Ed#2 02/14/17 03:20 S.aureus & Coag-Neg Staph PNA FISH - Final Blood Blood Culture - Preliminary Gram Positive Cocci Gram Stain - Final Lab Studies 02/16/17 02/16/17 02/16/17 Range/Units 06:08 06:08 06:08 WBC 3.3 L D (4.5-11.0) 10^3/ul RBC 2.83 L (3.5-6.1) 10^6/uL Hgb 8.3 L (12.0-16.0) gm/dL Hct 23.5 L (36.0-48.0) % MCV 83.0 (80.0-105.0) fL MCH 29.3 (25.0-35.0) pg MCHC 35.3 (31.0-37.0) g/dl RDW 16.8 H (11.5-14.5) % Plt Count 51 L (120.0-450.0) 10^3/uL Gran % 77.4 H (50.0-68.0) % Lymph % (Auto) 16.2 L (22.0-35.0) % Reeves % (Auto) 2.1 (1.0-6.0) % Eos % (Auto) 3.4 (1.5-5.0) % Baso % (Auto) 0.9 (0.0-3.0) % Gran # 2.54 (1.4-6.5) Lymph # 0.5 L (1.2-3.4) Reeves # 0.1 (0.1-0.6) Eos # 0.1 (0.0-0.7) Baso # 0.03 (0.0-2.0) K/mm3 Corrected WBC (Man) (4.5-11.0) K/mm3 Neutrophils % (Manual) (50.0-70.0) % Lymphocytes % (Manual) (22.0-35.0) % Monocytes % (Manual) (1.0-6.0) % Eosinophils % (Manual) (0.0-3.0) % Basophils % (Manual) (0.0-1.0) % Myelocytes % % Promyelocytes % % Nucleated RBC % % PT 17.7 H (9.9-11.8) Seconds INR 1.64 H (0.93-1.08) APTT 33.6 H (23.7-30.8) Seconds pCO2 (35-45) mm/Hg pO2 (30-55) mm/Hg HCO3 (21-28) mmol/L ABG pH (7.35-7.45) ABG Total CO2 (22-28) mmol.L ABG O2 Saturation (95-98) % ABG O2 Content (15-23) ML/dl ABG Base Excess (-2.0-3.0) mmol/L ABG Hemoglobin (11.7-17.4) g/dL ABG Carboxyhemoglobin (0.5-1.5) % POC ABG HHb (Measured) (0-5) % ABG Methemoglobin (0.0-3.0) % ABG O2 Capacity (16-24) mL/dl VBG pH (7.32-7.43) VBG pCO2 (40-60) VBG HCO3 (21-28) mmol/l VBG Total CO2 (22-28) mmol.L VBG O2 Sat (Calc) (40-65) % VBG Base Excess (0.0-2.0) mmol/L VBG Potassium (3.6-5.2) mmol/L Hgb O2 Saturation (95.0-98.0) % Sodium 141 (132-148) mmol/L Chloride 108 (98-107) mmol/L Glucose (65-105) mg/dl Lactate (0.7-2.1) mmol/L FiO2 % Potassium 3.4 L (3.6-5.0) mmol/L Carbon Dioxide 25 (21-33) mmol/L Anion Gap 11 (10-20) BUN 37 H (7-21) mg/dL Creatinine 1.5 H (0.5-1.4) mg/dL Est GFR ( Amer) 45 Est GFR (Non-Af Amer) 37 POC Glucose (mg/dL) (65-110) mg/dL Random Glucose 93 (70-110) mg/dL Calcium 6.8 L* (8.4-10.5) mg/dL Phosphorus 5.8 H (2.5-4.5) mg/dL Magnesium 1.6 L (1.7-2.2) mg/dL Total Bilirubin 1.4 H (0.2-1.3) mg/dL AST 1182 H (15-39) U/L ALT 613 H (7-56) U/L Alkaline Phosphatase 133 (38-133) U/L Total Protein 5.5 L (5.8-8.3) g/dL Albumin 2.6 L (3.0-4.8) g/dL Globulin 2.9 gm/dL Albumin/Globulin Ratio 0.9 L (1.1-1.8) Procalcitonin (0.19-0.49) NG/ML Venous Blood Potassium (3.6-5.2) mmol/L Random Vancomycin (20.0-40.0) ug/mL Blood Type Antibody Screen Crossmatch BBK History Checked 02/15/17 02/15/17 02/15/17 Range/Units 14:40 11:13 11:13 WBC (4.5-11.0) 10^3/ul RBC (3.5-6.1) 10^6/uL Hgb (12.0-16.0) gm/dL Hct (36.0-48.0) % MCV (80.0-105.0) fL MCH (25.0-35.0) pg MCHC (31.0-37.0) g/dl RDW (11.5-14.5) % Plt Count (120.0-450.0) 10^3/uL Gran % (50.0-68.0) % Lymph % (Auto) (22.0-35.0) % Reeves % (Auto) (1.0-6.0) % Eos % (Auto) (1.5-5.0) % Baso % (Auto) (0.0-3.0) % Gran # (1.4-6.5) Lymph # (1.2-3.4) Reeves # (0.1-0.6) Eos # (0.0-0.7) Baso # (0.0-2.0) K/mm3 Corrected WBC (Man) (4.5-11.0) K/mm3 Neutrophils % (Manual) (50.0-70.0) % Lymphocytes % (Manual) (22.0-35.0) % Monocytes % (Manual) (1.0-6.0) % Eosinophils % (Manual) (0.0-3.0) % Basophils % (Manual) (0.0-1.0) % Myelocytes % % Promyelocytes % % Nucleated RBC % % PT (9.9-11.8) Seconds INR (0.93-1.08) APTT (23.7-30.8) Seconds pCO2 26 L (35-45) mm/Hg pO2 67.0 L (30-55) mm/Hg HCO3 19.4 L (21-28) mmol/L ABG pH 7.48 H (7.35-7.45) ABG Total CO2 20.2 L (22-28) mmol.L ABG O2 Saturation 94.7 L (95-98) % ABG O2 Content 12.4 L (15-23) ML/dl ABG Base Excess -3.2 L (-2.0-3.0) mmol/L ABG Hemoglobin 9.5 L (11.7-17.4) g/dL ABG Carboxyhemoglobin 1.6 H (0.5-1.5) % POC ABG HHb (Measured) 5.2 H (0-5) % ABG Methemoglobin 0.6 (0.0-3.0) % ABG O2 Capacity 13.1 L (16-24) mL/dl VBG pH (7.32-7.43) VBG pCO2 (40-60) VBG HCO3 (21-28) mmol/l VBG Total CO2 (22-28) mmol.L VBG O2 Sat (Calc) (40-65) % VBG Base Excess (0.0-2.0) mmol/L VBG Potassium (3.6-5.2) mmol/L Hgb O2 Saturation 92.6 L (95.0-98.0) % Sodium (132-148) mmol/L Chloride (98-107) mmol/L Glucose (65-105) mg/dl Lactate (0.7-2.1) mmol/L FiO2 80.0 % Potassium (3.6-5.0) mmol/L Carbon Dioxide (21-33) mmol/L Anion Gap (10-20) BUN (7-21) mg/dL Creatinine (0.5-1.4) mg/dL Est GFR ( Amer) Est GFR (Non-Af Amer) POC Glucose (mg/dL) (65-110) mg/dL Random Glucose (70-110) mg/dL Calcium (8.4-10.5) mg/dL Phosphorus (2.5-4.5) mg/dL Magnesium (1.7-2.2) mg/dL Total Bilirubin (0.2-1.3) mg/dL AST (15-39) U/L ALT (7-56) U/L Alkaline Phosphatase (38-133) U/L Total Protein (5.8-8.3) g/dL Albumin (3.0-4.8) g/dL Globulin gm/dL Albumin/Globulin Ratio (1.1-1.8) Procalcitonin > 200.00 H (0.19-0.49) NG/ML Venous Blood Potassium (3.6-5.2) mmol/L Random Vancomycin 30.9 (20.0-40.0) ug/mL Blood Type Antibody Screen Crossmatch BBK History Checked 02/15/17 02/15/17 02/15/17 Range/Units 11:13 06:14 06:14 WBC (4.5-11.0) 10^3/ul RBC (3.5-6.1) 10^6/uL Hgb (12.0-16.0) gm/dL Hct (36.0-48.0) % MCV (80.0-105.0) fL MCH (25.0-35.0) pg MCHC (31.0-37.0) g/dl RDW (11.5-14.5) % Plt Count (120.0-450.0) 10^3/uL Gran % (50.0-68.0) % Lymph % (Auto) (22.0-35.0) % Reeves % (Auto) (1.0-6.0) % Eos % (Auto) (1.5-5.0) % Baso % (Auto) (0.0-3.0) % Gran # (1.4-6.5) Lymph # (1.2-3.4) Reeves # (0.1-0.6) Eos # (0.0-0.7) Baso # (0.0-2.0) K/mm3 Corrected WBC (Man) 3.3 L (4.5-11.0) K/mm3 Neutrophils % (Manual) 18 L (50.0-70.0) % Lymphocytes % (Manual) 46 H (22.0-35.0) % Monocytes % (Manual) 21 H (1.0-6.0) % Eosinophils % (Manual) 8 H (0.0-3.0) % Basophils % (Manual) 1 (0.0-1.0) % Myelocytes % 4 % Promyelocytes % 2 % Nucleated RBC % 32 % PT (9.9-11.8) Seconds INR (0.93-1.08) APTT (23.7-30.8) Seconds pCO2 (35-45) mm/Hg pO2 33 (30-55) mm/Hg HCO3 (21-28) mmol/L ABG pH (7.35-7.45) ABG Total CO2 (22-28) mmol.L ABG O2 Saturation (95-98) % ABG O2 Content (15-23) ML/dl ABG Base Excess (-2.0-3.0) mmol/L ABG Hemoglobin (11.7-17.4) g/dL ABG Carboxyhemoglobin (0.5-1.5) % POC ABG HHb (Measured) (0-5) % ABG Methemoglobin (0.0-3.0) % ABG O2 Capacity (16-24) mL/dl VBG pH 7.47 H (7.32-7.43) VBG pCO2 28.0 L (40-60) VBG HCO3 20.4 L (21-28) mmol/l VBG Total CO2 21.3 L (22-28) mmol.L VBG O2 Sat (Calc) 65.8 H (40-65) % VBG Base Excess -2.4 L (0.0-2.0) mmol/L VBG Potassium 4.0 (3.6-5.2) mmol/L Hgb O2 Saturation (95.0-98.0) % Sodium 140.0 (132-148) mmol/L Chloride 107.0 (98-107) mmol/L Glucose 150 H (65-105) mg/dl Lactate 4.8 H* (0.7-2.1) mmol/L FiO2 21.0 % Potassium (3.6-5.0) mmol/L Carbon Dioxide (21-33) mmol/L Anion Gap (10-20) BUN (7-21) mg/dL Creatinine (0.5-1.4) mg/dL Est GFR ( Amer) Est GFR (Non-Af Amer) POC Glucose (mg/dL) (65-110) mg/dL Random Glucose (70-110) mg/dL Calcium (8.4-10.5) mg/dL Phosphorus (2.5-4.5) mg/dL Magnesium (1.7-2.2) mg/dL Total Bilirubin (0.2-1.3) mg/dL AST 2956 H (15-39) U/L ALT (7-56) U/L Alkaline Phosphatase (38-133) U/L Total Protein (5.8-8.3) g/dL Albumin (3.0-4.8) g/dL Globulin gm/dL Albumin/Globulin Ratio (1.1-1.8) Procalcitonin (0.19-0.49) NG/ML Venous Blood Potassium 4.0 (3.6-5.2) mmol/L Random Vancomycin (20.0-40.0) ug/mL Blood Type Antibody Screen Crossmatch BBK History Checked 02/15/17 02/14/17 Range/Units 00:46 11:55 WBC (4.5-11.0) 10^3/ul RBC (3.5-6.1) 10^6/uL Hgb (12.0-16.0) gm/dL Hct (36.0-48.0) % MCV (80.0-105.0) fL MCH (25.0-35.0) pg MCHC (31.0-37.0) g/dl RDW (11.5-14.5) % Plt Count (120.0-450.0) 10^3/uL Gran % (50.0-68.0) % Lymph % (Auto) (22.0-35.0) % Reeves % (Auto) (1.0-6.0) % Eos % (Auto) (1.5-5.0) % Baso % (Auto) (0.0-3.0) % Gran # (1.4-6.5) Lymph # (1.2-3.4) Reeves # (0.1-0.6) Eos # (0.0-0.7) Baso # (0.0-2.0) K/mm3 Corrected WBC (Man) (4.5-11.0) K/mm3 Neutrophils % (Manual) (50.0-70.0) % Lymphocytes % (Manual) (22.0-35.0) % Monocytes % (Manual) (1.0-6.0) % Eosinophils % (Manual) (0.0-3.0) % Basophils % (Manual) (0.0-1.0) % Myelocytes % % Promyelocytes % % Nucleated RBC % % PT (9.9-11.8) Seconds INR (0.93-1.08) APTT (23.7-30.8) Seconds pCO2 (35-45) mm/Hg pO2 (30-55) mm/Hg HCO3 (21-28) mmol/L ABG pH (7.35-7.45) ABG Total CO2 (22-28) mmol.L ABG O2 Saturation (95-98) % ABG O2 Content (15-23) ML/dl ABG Base Excess (-2.0-3.0) mmol/L ABG Hemoglobin (11.7-17.4) g/dL ABG Carboxyhemoglobin (0.5-1.5) % POC ABG HHb (Measured) (0-5) % ABG Methemoglobin (0.0-3.0) % ABG O2 Capacity (16-24) mL/dl VBG pH (7.32-7.43) VBG pCO2 (40-60) VBG HCO3 (21-28) mmol/l VBG Total CO2 (22-28) mmol.L VBG O2 Sat (Calc) (40-65) % VBG Base Excess (0.0-2.0) mmol/L VBG Potassium (3.6-5.2) mmol/L Hgb O2 Saturation (95.0-98.0) % Sodium (132-148) mmol/L Chloride (98-107) mmol/L Glucose (65-105) mg/dl Lactate (0.7-2.1) mmol/L FiO2 % Potassium (3.6-5.0) mmol/L Carbon Dioxide (21-33) mmol/L Anion Gap (10-20) BUN (7-21) mg/dL Creatinine (0.5-1.4) mg/dL Est GFR ( Amer) Est GFR (Non-Af Amer) POC Glucose (mg/dL) 114 H (65-110) mg/dL Random Glucose (70-110) mg/dL Calcium (8.4-10.5) mg/dL Phosphorus (2.5-4.5) mg/dL Magnesium (1.7-2.2) mg/dL Total Bilirubin (0.2-1.3) mg/dL AST (15-39) U/L ALT (7-56) U/L Alkaline Phosphatase (38-133) U/L Total Protein (5.8-8.3) g/dL Albumin (3.0-4.8) g/dL Globulin gm/dL Albumin/Globulin Ratio (1.1-1.8) Procalcitonin (0.19-0.49) NG/ML Venous Blood Potassium (3.6-5.2) mmol/L Random Vancomycin (20.0-40.0) ug/mL Blood Type O POSITIVE Antibody Screen Negative Crossmatch See Detail BBK History Checked Patient has bt Laboratory Results - last 24 hr 02/14/17 02/15/17 02/15/17 11:55 00:46 06:14 WBC RBC Hgb Hct MCV MCH MCHC RDW Plt Count Gran % Lymph % (Auto) Reeves % (Auto) Eos % (Auto) Baso % (Auto) Gran # Lymph # Reeves # Eos # Baso # Corrected WBC (Man) 3.3 L Neutrophils % (Manual) 18 L Lymphocytes % (Manual) 46 H Monocytes % (Manual) 21 H Eosinophils % (Manual) 8 H Basophils % (Manual) 1 Myelocytes % 4 Promyelocytes % 2 Nucleated RBC % 32 PT INR APTT pCO2 pO2 HCO3 ABG pH ABG Total CO2 ABG O2 Saturation ABG O2 Content ABG Base Excess ABG Hemoglobin ABG Carboxyhemoglobin POC ABG HHb (Measured) ABG Methemoglobin ABG O2 Capacity VBG pH VBG pCO2 VBG HCO3 VBG Total CO2 VBG O2 Sat (Calc) VBG Base Excess VBG Potassium Hgb O2 Saturation Sodium Chloride Glucose Lactate FiO2 Potassium Carbon Dioxide Anion Gap BUN Creatinine Est GFR ( Amer) Est GFR (Non-Af Amer) POC Glucose (mg/dL) 114 H Random Glucose Calcium Phosphorus Magnesium Total Bilirubin AST ALT Alkaline Phosphatase Total Protein Albumin Globulin Albumin/Globulin Ratio Procalcitonin Venous Blood Potassium Random Vancomycin Blood Type O POSITIVE Antibody Screen Negative Crossmatch See Detail BBK History Checked Patient has bt 02/15/17 02/15/17 02/15/17 06:14 11:13 11:13 WBC RBC Hgb Hct MCV MCH MCHC RDW Plt Count Gran % Lymph % (Auto) Reeves % (Auto) Eos % (Auto) Baso % (Auto) Gran # Lymph # Reeves # Eos # Baso # Corrected WBC (Man) Neutrophils % (Manual) Lymphocytes % (Manual) Monocytes % (Manual) Eosinophils % (Manual) Basophils % (Manual) Myelocytes % Promyelocytes % Nucleated RBC % PT INR APTT pCO2 pO2 33 HCO3 ABG pH ABG Total CO2 ABG O2 Saturation ABG O2 Content ABG Base Excess ABG Hemoglobin ABG Carboxyhemoglobin POC ABG HHb (Measured) ABG Methemoglobin ABG O2 Capacity VBG pH 7.47 H VBG pCO2 28.0 L VBG HCO3 20.4 L VBG Total CO2 21.3 L VBG O2 Sat (Calc) 65.8 H VBG Base Excess -2.4 L VBG Potassium 4.0 Hgb O2 Saturation Sodium 140.0 Chloride 107.0 Glucose 150 H Lactate 4.8 H* FiO2 21.0 Potassium Carbon Dioxide Anion Gap BUN Creatinine Est GFR ( Amer) Est GFR (Non-Af Amer) POC Glucose (mg/dL) Random Glucose Calcium Phosphorus Magnesium Total Bilirubin AST 2956 H ALT Alkaline Phosphatase Total Protein Albumin Globulin Albumin/Globulin Ratio Procalcitonin Venous Blood Potassium 4.0 Random Vancomycin 30.9 Blood Type Antibody Screen Crossmatch BBK History Checked 02/15/17 02/15/17 02/16/17 11:13 14:40 06:08 WBC 3.3 L D RBC 2.83 L Hgb 8.3 L Hct 23.5 L MCV 83.0 MCH 29.3 MCHC 35.3 RDW 16.8 H Plt Count 51 L Gran % 77.4 H Lymph % (Auto) 16.2 L Reeves % (Auto) 2.1 Eos % (Auto) 3.4 Baso % (Auto) 0.9 Gran # 2.54 Lymph # 0.5 L Reeves # 0.1 Eos # 0.1 Baso # 0.03 Corrected WBC (Man) Neutrophils % (Manual) Lymphocytes % (Manual) Monocytes % (Manual) Eosinophils % (Manual) Basophils % (Manual) Myelocytes % Promyelocytes % Nucleated RBC % PT INR APTT pCO2 26 L pO2 67.0 L HCO3 19.4 L ABG pH 7.48 H ABG Total CO2 20.2 L ABG O2 Saturation 94.7 L ABG O2 Content 12.4 L ABG Base Excess -3.2 L ABG Hemoglobin 9.5 L ABG Carboxyhemoglobin 1.6 H POC ABG HHb (Measured) 5.2 H ABG Methemoglobin 0.6 ABG O2 Capacity 13.1 L VBG pH VBG pCO2 VBG HCO3 VBG Total CO2 VBG O2 Sat (Calc) VBG Base Excess VBG Potassium Hgb O2 Saturation 92.6 L Sodium Chloride Glucose Lactate FiO2 80.0 Potassium Carbon Dioxide Anion Gap BUN Creatinine Est GFR ( Amer) Est GFR (Non-Af Amer) POC Glucose (mg/dL) Random Glucose Calcium Phosphorus Magnesium Total Bilirubin AST ALT Alkaline Phosphatase Total Protein Albumin Globulin Albumin/Globulin Ratio Procalcitonin > 200.00 H Venous Blood Potassium Random Vancomycin Blood Type Antibody Screen Crossmatch BBK History Checked 02/16/17 02/16/17 06:08 06:08 WBC RBC Hgb Hct MCV MCH MCHC RDW Plt Count Gran % Lymph % (Auto) Reeves % (Auto) Eos % (Auto) Baso % (Auto) Gran # Lymph # Reeves # Eos # Baso # Corrected WBC (Man) Neutrophils % (Manual) Lymphocytes % (Manual) Monocytes % (Manual) Eosinophils % (Manual) Basophils % (Manual) Myelocytes % Promyelocytes % Nucleated RBC % PT 17.7 H INR 1.64 H APTT 33.6 H pCO2 pO2 HCO3 ABG pH ABG Total CO2 ABG O2 Saturation ABG O2 Content ABG Base Excess ABG Hemoglobin ABG Carboxyhemoglobin POC ABG HHb (Measured) ABG Methemoglobin ABG O2 Capacity VBG pH VBG pCO2 VBG HCO3 VBG Total CO2 VBG O2 Sat (Calc) VBG Base Excess VBG Potassium Hgb O2 Saturation Sodium 141 Chloride 108 Glucose Lactate FiO2 Potassium 3.4 L Carbon Dioxide 25 Anion Gap 11 BUN 37 H Creatinine 1.5 H Est GFR ( Amer) 45 Est GFR (Non-Af Amer) 37 POC Glucose (mg/dL) Random Glucose 93 Calcium 6.8 L* Phosphorus 5.8 H Magnesium 1.6 L Total Bilirubin 1.4 H AST 1182 H ALT 613 H Alkaline Phosphatase 133 Total Protein 5.5 L Albumin 2.6 L Globulin 2.9 Albumin/Globulin Ratio 0.9 L Procalcitonin Venous Blood Potassium Random Vancomycin Blood Type Antibody Screen Crossmatch BBK History Checked Fingerstick Blood Sugar Results: 125 Review of Systems - Review of Systems Systems not reviewed;Unavailable: Acuity of Condition Critical Care Progress Note - Ventilator Checklist Head of Bed 30 Degrees: Yes Daily Assessment of Readiness to Wean: No Daily Spontaneous Breathing Trial: No PUD Prophalyxis: Yes DVT Prophylaxis: Yes - Vent Settings MODE:: PRVC TIDAL VOLUME:: 340 RESP RATE:: 30 FIO2:: 100 PEEP:: 10 - Extremities/Vascular Does the Patient have a Central Venous Catheter?: Yes Insertion Site: Internal Jugular Vein Does the Patient need a Central Venous Catheter?: Yes Does the Patient have a Uribe Catheter?: Yes Does the Patient need a Uribe Catheter?: Yes Catheter Insertion Criteria: Need for accurate measurement of output in critically ill patient - Prophylaxis GI Prophylaxis GI: PPI - Prophylaxis DVT Prophylaxis DVT: SCDs Assessment/Plan - Assessment and Plan (Free Text) Assessment: This is a 51F who was admitted to [facility] due to LE pain and abdominal pain, on she had a c-scope, durring the following evening she desaturated and became hypotensive was transferred to ICU with a Hgb of 8.3, CT scan significant for free air indicating a perforated viscous. Neuro: Sedated with Versed and Fentanyl CV: Hemodynamically stable on Norepinephrin, vasopressin and solucortef will continue and taper down if possible. Pulm: Patient CT chest shows significant right sided infiltrates, consistent with ARDS and mucus plug, chest pt, acetylcystine and albuterol, Patient is currently intubated on PRVC will ween if possible, patient has a history of asthma continue brovana, budesonide GI: Patient has a perforated viscous likely perforated duodenal ulcer will remain NPO, NGT to suction, IV merrem : Patient is positive for ESBL and proteus, leave uribe in place, patient is on IV merrem Endo: Patient has mildly depressed potassium level, repleated with 1 krider, accuchecks q6 ID: Patient is septic due to reasons listed above patient is on merrem which offers broad coverage Heme: Patients Hgb decreased from 10.7 to 8.7 over 24 hours will recheck this afternoon Other: Patient is currently febrile will continue to monitor and treat with cooling blankets, if not controlled will consider IV acetaminophen Will Discuss with Dr. Codi Alcala PGY-1 <Codi STARR,Crow H - Last Filed: 02/16/17 15:26> CCU Objective - Vital Signs / Intake & Output Intake and Output (Last 8hrs): Intake & Output 02/16/17 02/16/17 02/16/17 06:59 14:59 22:59 Intake Total 106 1322 Output Total 650 Balance 106 672 Weight 186 lb Intake: IV 106 772 Right Internal Jugular 512 Blood Product 550 Output: Gastric Amount 150 Left 50 Stomach 100 Urine 500 Urine, Voided 500 Other: # Bowel Movements 0 - Medications Active Medications: Active Medications Generic Name Dose Route Start Last Admin Trade Name Freq PRN Reason Stop Dose Admin Acetylcysteine 4 ml 02/16/17 12:00 02/16/17 15:03 Acetylcysteine 20% IH 4 ml [id number] RAOUL Administration Albuterol Sulfate 2.5 mg 02/16/17 11:30 02/16/17 15:03 Albuterol 0.083% Inhal Amarilys (2.5 Mg/3 Ml) Ud IH 2.5 mg [id number] RAOUL Administration Arformoterol Tartrate 15 mcg 02/11/17 20:00 02/16/17 07:56 Brovana IH 15 mcg [id number] RAOUL Administration Budesonide 0.5 mg 02/11/17 20:00 02/16/17 07:56 Pulmicort Respules IH 0.5 mg [id number] RAOUL Administration Clonazepam 1 mg 02/11/17 18:00 02/14/17 10:00 Klonopin PO Not Given BID RAOUL Protocol Gabapentin 800 mg 02/11/17 14:00 02/14/17 13:29 Neurontin PO Not Given QID RAOUL Heparin Sodium (Porcine) 5,000 units 02/14/17 01:45 02/16/17 13:14 Heparin SC 5,000 units Q8 RAOUL Administration Protocol Hydrocortisone Sodium Succinate 50 mg 02/14/17 07:30 02/16/17 13:19 Solu-Cortef IVP 50 mg Q6H RAOUL Administration NOREPINEPHRINE BIT/0.9 % NACL 4 mg in 250 mls @ 15 mls/hr 02/14/17 04:28 01/28 13:00 Levophed 4 Mg/ 250 Ml Ns Premixed IV 6 mcg/min .[id number] PRN 22.5 mls/hr TITRATE PER MD ORDER Titration Protocol 4 MCG/MIN Vasopressin 20 units/ Dextrose 101 mls @ 9.09 mls/hr 02/14/17 07:30 02/16/17 04:00 IV 9.09 mls/hr .[id number] RAOUL Administration Protocol 0.03 U/MIN Fentanyl Citrate 1,000 mcg in 100 mls @ 7.5 mls/hr 02/14/17 08:03 02/16/17 09 :12 Fentanyl Citrate/Sodium Chloride 1 Mg/100 Ml IV 150 mcg/hr .[id number] PRN 15 mls/hr TITRATE PER MD ORDER Administration Protocol 75 MCG/HR Midazolam 100 mg/100ml in NS 100 mg in 100 mls @ 7 mls/hr 02/14/17 11:42 01/28 08:14 Midazolam 100 Mg/100ml In Ns IV 4 mg/hr .[id number] PRN 4 mls/hr Agitation Administration Protocol 7 MG/HR Epinephrine HCl 1 mg/ Sodium 51 mls @ 15.3 mls/hr 02/14/17 13:12 02/15/17 11: 30 Chloride IV 0 mcg/min .[id number] PRN 0 mls/hr TITRATE PER MD ORDER Titration Protocol 5 MCG/MIN Dobutamine HCl/Dextrose 500 mg in 250 mls @ 3.844 mls/hr 02/14/17 14:15 02/15 23:00 Dobutamine/Dextrose 5% 500mg/250ml IV 3.844 mls/hr .Q24H PRN Administration TITRATE PER PROTOCOL Protocol 2.5 MCG/KG/MIN Meropenem 1g/NS 100mL IVPB 1 gm in 100 mls @ 100 mls/hr 02/15/17 17:00 13:16 Meropenem 1g/Ns 100ml Ivpb IVPB 100 mls/hr Q8 RAOUL Administration Protocol Sodium Bicarbonate 100 meq/ 1,100 mls @ 80 mls/hr 02/16/17 14:38 Dextrose/Sodium Chloride IV .[id number] RAOUL Midazolam HCl 2 mg 02/14/17 08:03 02/14/17 09:40 Versed Inj IVP 2 mg Q4H PRN Administration Agitation Ondansetron HCl 4 mg 02/11/17 13:30 02/13/17 16:26 Zofran Inj IVP 4 mg Q6 PRN Administration Nausea/Vomiting Pantoprazole Sodium 40 mg 02/14/17 10:00 02/16/17 10:01 Protonix Inj IVP 40 mg DAILY RAOUL Administration - Patient Studies Lab Studies: Microbiology Studies 02/14/17 04:50 Urine Culture - Final Urine,Clean Catch Escherichia Coli Proteus Mirabilis 02/14/17 02:30 MRSA Culture (Admit) - Final Naris MRSA NOT DETECTED Lab Studies 02/16/17 02/16/17 02/16/17 Range/Units 14:00 14:00 11:17 WBC (4.5-11.0) 10^3/ul RBC (3.5-6.1) 10^6/uL Hgb (12.0-16.0) gm/dL Hct (36.0-48.0) % MCV (80.0-105.0) fL MCH (25.0-35.0) pg MCHC (31.0-37.0) g/dl RDW (11.5-14.5) % Plt Count (120.0-450.0) 10^3/uL Gran % (50.0-68.0) % Lymph % (Auto) (22.0-35.0) % Reeves % (Auto) (1.0-6.0) % Eos % (Auto) (1.5-5.0) % Baso % (Auto) (0.0-3.0) % Gran # (1.4-6.5) Lymph # (1.2-3.4) Reeves # (0.1-0.6) Eos # (0.0-0.7) Baso # (0.0-2.0) K/mm3 PT (9.9-11.8) Seconds INR (0.93-1.08) APTT (23.7-30.8) Seconds pCO2 (35-45) mm/Hg pO2 48 (80-100) mm/Hg HCO3 (21-28) mmol/L ABG pH (7.35-7.45) ABG Total CO2 (22-28) mmol.L ABG O2 Saturation (95-98) % ABG Base Excess (-2.0-3.0) mmol/L ABG Potassium (3.6-5.2) mmol/L VBG pH 7.39 (7.32-7.43) VBG pCO2 40.0 (40-60) VBG HCO3 24.2 (21-28) mmol/l VBG Total CO2 25.4 (22-28) mmol.L VBG O2 Sat (Calc) 82.0 H (40-65) % VBG Base Excess -0.7 L (0.0-2.0) mmol/L VBG Potassium 3.6 (3.6-5.2) mmol/L Sodium 141.0 (132-148) mmol/L Chloride 110.0 H (98-107) mmol/L Glucose 108 H (65-105) mg/dl Lactate 2.6 H (0.7-2.1) mmol/L FiO2 21.0 % Potassium (3.6-5.0) mmol/L Carbon Dioxide (21-33) mmol/L Anion Gap (10-20) BUN (7-21) mg/dL Creatinine (0.5-1.4) mg/dL Est GFR ( Amer) Est GFR (Non-Af Amer) POC Glucose (mg/dL) 96 (65-110) mg/dL Random Glucose (70-110) mg/dL Lactic Acid 2.4 H (0.7-2.1) mmol/L Calcium (8.4-10.5) mg/dL Phosphorus (2.5-4.5) mg/dL Magnesium (1.7-2.2) mg/dL Total Bilirubin (0.2-1.3) mg/dL AST (15-39) U/L ALT (7-56) U/L Alkaline Phosphatase (38-133) U/L Total Protein (5.8-8.3) g/dL Albumin (3.0-4.8) g/dL Globulin gm/dL Albumin/Globulin Ratio (1.1-1.8) Procalcitonin (0.19-0.49) NG/ML Arterial Blood Potassium (3.6-5.2) mmol/L Venous Blood Potassium 3.6 (3.6-5.2) mmol/L Heparin-induced Plt Ab (Negative) HIV 1&2 Antibody Screen (NEGATIVE) 02/16/17 02/16/17 02/16/17 Range/Units 10:06 07:13 06:17 WBC (4.5-11.0) 10^3/ul RBC (3.5-6.1) 10^6/uL Hgb (12.0-16.0) gm/dL Hct (36.0-48.0) % MCV (80.0-105.0) fL MCH (25.0-35.0) pg MCHC (31.0-37.0) g/dl RDW (11.5-14.5) % Plt Count (120.0-450.0) 10^3/uL Gran % (50.0-68.0) % Lymph % (Auto) (22.0-35.0) % Reeves % (Auto) (1.0-6.0) % Eos % (Auto) (1.5-5.0) % Baso % (Auto) (0.0-3.0) % Gran # (1.4-6.5) Lymph # (1.2-3.4) Reeves # (0.1-0.6) Eos # (0.0-0.7) Baso # (0.0-2.0) K/mm3 PT (9.9-11.8) Seconds INR (0.93-1.08) APTT (23.7-30.8) Seconds pCO2 (35-45) mm/Hg pO2 (80-100) mm/Hg HCO3 (21-28) mmol/L ABG pH (7.35-7.45) ABG Total CO2 (22-28) mmol.L ABG O2 Saturation (95-98) % ABG Base Excess (-2.0-3.0) mmol/L ABG Potassium (3.6-5.2) mmol/L VBG pH (7.32-7.43) VBG pCO2 (40-60) VBG HCO3 (21-28) mmol/l VBG Total CO2 (22-28) mmol.L VBG O2 Sat (Calc) (40-65) % VBG Base Excess (0.0-2.0) mmol/L VBG Potassium (3.6-5.2) mmol/L Sodium (132-148) mmol/L Chloride (98-107) mmol/L Glucose (65-105) mg/dl Lactate (0.7-2.1) mmol/L FiO2 % Potassium (3.6-5.0) mmol/L Carbon Dioxide (21-33) mmol/L Anion Gap (10-20) BUN (7-21) mg/dL Creatinine (0.5-1.4) mg/dL Est GFR ( Amer) Est GFR (Non-Af Amer) POC Glucose (mg/dL) 89 94 95 (65-110) mg/dL Random Glucose (70-110) mg/dL Lactic Acid (0.7-2.1) mmol/L Calcium (8.4-10.5) mg/dL Phosphorus (2.5-4.5) mg/dL Magnesium (1.7-2.2) mg/dL Total Bilirubin (0.2-1.3) mg/dL AST (15-39) U/L ALT (7-56) U/L Alkaline Phosphatase (38-133) U/L Total Protein (5.8-8.3) g/dL Albumin (3.0-4.8) g/dL Globulin gm/dL Albumin/Globulin Ratio (1.1-1.8) Procalcitonin (0.19-0.49) NG/ML Arterial Blood Potassium (3.6-5.2) mmol/L Venous Blood Potassium (3.6-5.2) mmol/L Heparin-induced Plt Ab (Negative) HIV 1&2 Antibody Screen (NEGATIVE) 02/16/17 02/16/17 02/16/17 Range/Units 06:08 06:08 06:08 WBC 3.3 L D (4.5-11.0) 10^3/ul RBC 2.83 L (3.5-6.1) 10^6/uL Hgb 8.3 L (12.0-16.0) gm/dL Hct 23.5 L (36.0-48.0) % MCV 83.0 (80.0-105.0) fL MCH 29.3 (25.0-35.0) pg MCHC 35.3 (31.0-37.0) g/dl RDW 16.8 H (11.5-14.5) % Plt Count 51 L (120.0-450.0) 10^3/uL Gran % 77.4 H (50.0-68.0) % Lymph % (Auto) 16.2 L (22.0-35.0) % Reeves % (Auto) 2.1 (1.0-6.0) % Eos % (Auto) 3.4 (1.5-5.0) % Baso % (Auto) 0.9 (0.0-3.0) % Gran # 2.54 (1.4-6.5) Lymph # 0.5 L (1.2-3.4) Reeves # 0.1 (0.1-0.6) Eos # 0.1 (0.0-0.7) Baso # 0.03 (0.0-2.0) K/mm3 PT 17.7 H (9.9-11.8) Seconds INR 1.64 H (0.93-1.08) APTT 33.6 H (23.7-30.8) Seconds pCO2 (35-45) mm/Hg pO2 (80-100) mm/Hg HCO3 (21-28) mmol/L ABG pH (7.35-7.45) ABG Total CO2 (22-28) mmol.L ABG O2 Saturation (95-98) % ABG Base Excess (-2.0-3.0) mmol/L ABG Potassium (3.6-5.2) mmol/L VBG pH (7.32-7.43) VBG pCO2 (40-60) VBG HCO3 (21-28) mmol/l VBG Total CO2 (22-28) mmol.L VBG O2 Sat (Calc) (40-65) % VBG Base Excess (0.0-2.0) mmol/L VBG Potassium (3.6-5.2) mmol/L Sodium 141 (132-148) mmol/L Chloride 108 (98-107) mmol/L Glucose (65-105) mg/dl Lactate (0.7-2.1) mmol/L FiO2 % Potassium 3.4 L (3.6-5.0) mmol/L Carbon Dioxide 25 (21-33) mmol/L Anion Gap 11 (10-20) BUN 37 H (7-21) mg/dL Creatinine 1.5 H (0.5-1.4) mg/dL Est GFR ( Amer) 45 Est GFR (Non-Af Amer) 37 POC Glucose (mg/dL) (65-110) mg/dL Random Glucose 93 (70-110) mg/dL Lactic Acid (0.7-2.1) mmol/L Calcium 6.8 L* (8.4-10.5) mg/dL Phosphorus 5.8 H (2.5-4.5) mg/dL Magnesium 1.6 L (1.7-2.2) mg/dL Total Bilirubin 1.4 H (0.2-1.3) mg/dL AST 1182 H (15-39) U/L ALT 613 H (7-56) U/L Alkaline Phosphatase 133 (38-133) U/L Total Protein 5.5 L (5.8-8.3) g/dL Albumin 2.6 L (3.0-4.8) g/dL Globulin 2.9 gm/dL Albumin/Globulin Ratio 0.9 L (1.1-1.8) Procalcitonin (0.19-0.49) NG/ML Arterial Blood Potassium (3.6-5.2) mmol/L Venous Blood Potassium (3.6-5.2) mmol/L Heparin-induced Plt Ab (Negative) HIV 1&2 Antibody Screen (NEGATIVE) 02/16/17 02/16/17 02/16/17 Range/Units 05:45 03:14 01:01 WBC (4.5-11.0) 10^3/ul RBC (3.5-6.1) 10^6/uL Hgb (12.0-16.0) gm/dL Hct (36.0-48.0) % MCV (80.0-105.0) fL MCH (25.0-35.0) pg MCHC (31.0-37.0) g/dl RDW (11.5-14.5) % Plt Count (120.0-450.0) 10^3/uL Gran % (50.0-68.0) % Lymph % (Auto) (22.0-35.0) % Reeves % (Auto) (1.0-6.0) % Eos % (Auto) (1.5-5.0) % Baso % (Auto) (0.0-3.0) % Gran # (1.4-6.5) Lymph # (1.2-3.4) Reeves # (0.1-0.6) Eos # (0.0-0.7) Baso # (0.0-2.0) K/mm3 PT (9.9-11.8) Seconds INR (0.93-1.08) APTT (23.7-30.8) Seconds pCO2 32 L (35-45) mm/Hg pO2 55.0 L (80-100) mm/Hg HCO3 22.8 (21-28) mmol/L ABG pH 7.46 H (7.35-7.45) ABG Total CO2 23.8 (22-28) mmol.L ABG O2 Saturation 91.2 L (95-98) % ABG Base Excess -0.7 (-2.0-3.0) mmol/L ABG Potassium 3.4 L (3.6-5.2) mmol/L VBG pH (7.32-7.43) VBG pCO2 (40-60) VBG HCO3 (21-28) mmol/l VBG Total CO2 (22-28) mmol.L VBG O2 Sat (Calc) (40-65) % VBG Base Excess (0.0-2.0) mmol/L VBG Potassium (3.6-5.2) mmol/L Sodium 141.0 (132-148) mmol/L Chloride 111.0 H (98-107) mmol/L Glucose 99 (65-105) mg/dl Lactate 2.6 H (0.7-2.1) mmol/L FiO2 100.0 % Potassium (3.6-5.0) mmol/L Carbon Dioxide (21-33) mmol/L Anion Gap (10-20) BUN (7-21) mg/dL Creatinine (0.5-1.4) mg/dL Est GFR ( Amer) Est GFR (Non-Af Amer) POC Glucose (mg/dL) 94 112 H (65-110) mg/dL Random Glucose (70-110) mg/dL Lactic Acid (0.7-2.1) mmol/L Calcium (8.4-10.5) mg/dL Phosphorus (2.5-4.5) mg/dL Magnesium (1.7-2.2) mg/dL Total Bilirubin (0.2-1.3) mg/dL AST (15-39) U/L ALT (7-56) U/L Alkaline Phosphatase (38-133) U/L Total Protein (5.8-8.3) g/dL Albumin (3.0-4.8) g/dL Globulin gm/dL Albumin/Globulin Ratio (1.1-1.8) Procalcitonin (0.19-0.49) NG/ML Arterial Blood Potassium 3.4 L (3.6-5.2) mmol/L Venous Blood Potassium (3.6-5.2) mmol/L Heparin-induced Plt Ab (Negative) HIV 1&2 Antibody Screen (NEGATIVE) 02/15/17 02/15/17 02/15/17 Range/Units 22:57 21:36 17:49 WBC (4.5-11.0) 10^3/ul RBC (3.5-6.1) 10^6/uL Hgb (12.0-16.0) gm/dL Hct (36.0-48.0) % MCV (80.0-105.0) fL MCH (25.0-35.0) pg MCHC (31.0-37.0) g/dl RDW (11.5-14.5) % Plt Count (120.0-450.0) 10^3/uL Gran % (50.0-68.0) % Lymph % (Auto) (22.0-35.0) % Reeves % (Auto) (1.0-6.0) % Eos % (Auto) (1.5-5.0) % Baso % (Auto) (0.0-3.0) % Gran # (1.4-6.5) Lymph # (1.2-3.4) Reeves # (0.1-0.6) Eos # (0.0-0.7) Baso # (0.0-2.0) K/mm3 PT (9.9-11.8) Seconds INR (0.93-1.08) APTT (23.7-30.8) Seconds pCO2 (35-45) mm/Hg pO2 (80-100) mm/Hg HCO3 (21-28) mmol/L ABG pH (7.35-7.45) ABG Total CO2 (22-28) mmol.L ABG O2 Saturation (95-98) % ABG Base Excess (-2.0-3.0) mmol/L ABG Potassium (3.6-5.2) mmol/L VBG pH (7.32-7.43) VBG pCO2 (40-60) VBG HCO3 (21-28) mmol/l VBG Total CO2 (22-28) mmol.L VBG O2 Sat (Calc) (40-65) % VBG Base Excess (0.0-2.0) mmol/L VBG Potassium (3.6-5.2) mmol/L Sodium (132-148) mmol/L Chloride (98-107) mmol/L Glucose (65-105) mg/dl Lactate (0.7-2.1) mmol/L FiO2 % Potassium (3.6-5.0) mmol/L Carbon Dioxide (21-33) mmol/L Anion Gap (10-20) BUN (7-21) mg/dL Creatinine (0.5-1.4) mg/dL Est GFR ( Amer) Est GFR (Non-Af Amer) POC Glucose (mg/dL) 87 103 125 H (65-110) mg/dL Random Glucose (70-110) mg/dL Lactic Acid (0.7-2.1) mmol/L Calcium (8.4-10.5) mg/dL Phosphorus (2.5-4.5) mg/dL Magnesium (1.7-2.2) mg/dL Total Bilirubin (0.2-1.3) mg/dL AST (15-39) U/L ALT (7-56) U/L Alkaline Phosphatase (38-133) U/L Total Protein (5.8-8.3) g/dL Albumin (3.0-4.8) g/dL Globulin gm/dL Albumin/Globulin Ratio (1.1-1.8) Procalcitonin (0.19-0.49) NG/ML Arterial Blood Potassium (3.6-5.2) mmol/L Venous Blood Potassium (3.6-5.2) mmol/L Heparin-induced Plt Ab (Negative) HIV 1&2 Antibody Screen (NEGATIVE) 02/15/17 02/15/17 02/15/17 Range/Units 15:14 11:13 07:06 WBC (4.5-11.0) 10^3/ul RBC (3.5-6.1) 10^6/uL Hgb (12.0-16.0) gm/dL Hct (36.0-48.0) % MCV (80.0-105.0) fL MCH (25.0-35.0) pg MCHC (31.0-37.0) g/dl RDW (11.5-14.5) % Plt Count (120.0-450.0) 10^3/uL Gran % (50.0-68.0) % Lymph % (Auto) (22.0-35.0) % Reeves % (Auto) (1.0-6.0) % Eos % (Auto) (1.5-5.0) % Baso % (Auto) (0.0-3.0) % Gran # (1.4-6.5) Lymph # (1.2-3.4) Reeves # (0.1-0.6) Eos # (0.0-0.7) Baso # (0.0-2.0) K/mm3 PT (9.9-11.8) Seconds INR (0.93-1.08) APTT (23.7-30.8) Seconds pCO2 (35-45) mm/Hg pO2 (80-100) mm/Hg HCO3 (21-28) mmol/L ABG pH (7.35-7.45) ABG Total CO2 (22-28) mmol.L ABG O2 Saturation (95-98) % ABG Base Excess (-2.0-3.0) mmol/L ABG Potassium (3.6-5.2) mmol/L VBG pH (7.32-7.43) VBG pCO2 (40-60) VBG HCO3 (21-28) mmol/l VBG Total CO2 (22-28) mmol.L VBG O2 Sat (Calc) (40-65) % VBG Base Excess (0.0-2.0) mmol/L VBG Potassium (3.6-5.2) mmol/L Sodium (132-148) mmol/L Chloride (98-107) mmol/L Glucose (65-105) mg/dl Lactate (0.7-2.1) mmol/L FiO2 % Potassium (3.6-5.0) mmol/L Carbon Dioxide (21-33) mmol/L Anion Gap (10-20) BUN (7-21) mg/dL Creatinine (0.5-1.4) mg/dL Est GFR ( Amer) Est GFR (Non-Af Amer) POC Glucose (mg/dL) 189 H 136 H (65-110) mg/dL Random Glucose (70-110) mg/dL Lactic Acid (0.7-2.1) mmol/L Calcium (8.4-10.5) mg/dL Phosphorus (2.5-4.5) mg/dL Magnesium (1.7-2.2) mg/dL Total Bilirubin (0.2-1.3) mg/dL AST (15-39) U/L ALT (7-56) U/L Alkaline Phosphatase (38-133) U/L Total Protein (5.8-8.3) g/dL Albumin (3.0-4.8) g/dL Globulin gm/dL Albumin/Globulin Ratio (1.1-1.8) Procalcitonin > 200.00 H (0.19-0.49) NG/ML Arterial Blood Potassium (3.6-5.2) mmol/L Venous Blood Potassium (3.6-5.2) mmol/L Heparin-induced Plt Ab (Negative) HIV 1&2 Antibody Screen (NEGATIVE) 02/15/17 02/15/17 02/15/17 Range/Units 06:14 05:20 03:43 WBC (4.5-11.0) 10^3/ul RBC (3.5-6.1) 10^6/uL Hgb (12.0-16.0) gm/dL Hct (36.0-48.0) % MCV (80.0-105.0) fL MCH (25.0-35.0) pg MCHC (31.0-37.0) g/dl RDW (11.5-14.5) % Plt Count (120.0-450.0) 10^3/uL Gran % (50.0-68.0) % Lymph % (Auto) (22.0-35.0) % Reeves % (Auto) (1.0-6.0) % Eos % (Auto) (1.5-5.0) % Baso % (Auto) (0.0-3.0) % Gran # (1.4-6.5) Lymph # (1.2-3.4) Reeves # (0.1-0.6) Eos # (0.0-0.7) Baso # (0.0-2.0) K/mm3 PT (9.9-11.8) Seconds INR (0.93-1.08) APTT (23.7-30.8) Seconds pCO2 (35-45) mm/Hg pO2 (80-100) mm/Hg HCO3 (21-28) mmol/L ABG pH (7.35-7.45) ABG Total CO2 (22-28) mmol.L ABG O2 Saturation (95-98) % ABG Base Excess (-2.0-3.0) mmol/L ABG Potassium (3.6-5.2) mmol/L VBG pH (7.32-7.43) VBG pCO2 (40-60) VBG HCO3 (21-28) mmol/l VBG Total CO2 (22-28) mmol.L VBG O2 Sat (Calc) (40-65) % VBG Base Excess (0.0-2.0) mmol/L VBG Potassium (3.6-5.2) mmol/L Sodium (132-148) mmol/L Chloride (98-107) mmol/L Glucose (65-105) mg/dl Lactate (0.7-2.1) mmol/L FiO2 % Potassium (3.6-5.0) mmol/L Carbon Dioxide (21-33) mmol/L Anion Gap (10-20) BUN (7-21) mg/dL Creatinine (0.5-1.4) mg/dL Est GFR ( Amer) Est GFR (Non-Af Amer) POC Glucose (mg/dL) 120 H 104 (65-110) mg/dL Random Glucose (70-110) mg/dL Lactic Acid (0.7-2.1) mmol/L Calcium (8.4-10.5) mg/dL Phosphorus (2.5-4.5) mg/dL Magnesium (1.7-2.2) mg/dL Total Bilirubin (0.2-1.3) mg/dL AST (15-39) U/L ALT (7-56) U/L Alkaline Phosphatase (38-133) U/L Total Protein (5.8-8.3) g/dL Albumin (3.0-4.8) g/dL Globulin gm/dL Albumin/Globulin Ratio (1.1-1.8) Procalcitonin (0.19-0.49) NG/ML Arterial Blood Potassium (3.6-5.2) mmol/L Venous Blood Potassium (3.6-5.2) mmol/L Heparin-induced Plt Ab (Negative) HIV 1&2 Antibody Screen Negative (NEGATIVE) 02/15/17 02/14/17 02/13/17 Range/Units 00:26 21:38 08:00 WBC (4.5-11.0) 10^3/ul RBC (3.5-6.1) 10^6/uL Hgb (12.0-16.0) gm/dL Hct (36.0-48.0) % MCV (80.0-105.0) fL MCH (25.0-35.0) pg MCHC (31.0-37.0) g/dl RDW (11.5-14.5) % Plt Count (120.0-450.0) 10^3/uL Gran % (50.0-68.0) % Lymph % (Auto) (22.0-35.0) % Reeves % (Auto) (1.0-6.0) % Eos % (Auto) (1.5-5.0) % Baso % (Auto) (0.0-3.0) % Gran # (1.4-6.5) Lymph # (1.2-3.4) Reeves # (0.1-0.6) Eos # (0.0-0.7) Baso # (0.0-2.0) K/mm3 PT (9.9-11.8) Seconds INR (0.93-1.08) APTT (23.7-30.8) Seconds pCO2 (35-45) mm/Hg pO2 (80-100) mm/Hg HCO3 (21-28) mmol/L ABG pH (7.35-7.45) ABG Total CO2 (22-28) mmol.L ABG O2 Saturation (95-98) % ABG Base Excess (-2.0-3.0) mmol/L ABG Potassium (3.6-5.2) mmol/L VBG pH (7.32-7.43) VBG pCO2 (40-60) VBG HCO3 (21-28) mmol/l VBG Total CO2 (22-28) mmol.L VBG O2 Sat (Calc) (40-65) % VBG Base Excess (0.0-2.0) mmol/L VBG Potassium (3.6-5.2) mmol/L Sodium (132-148) mmol/L Chloride (98-107) mmol/L Glucose (65-105) mg/dl Lactate (0.7-2.1) mmol/L FiO2 % Potassium (3.6-5.0) mmol/L Carbon Dioxide (21-33) mmol/L Anion Gap (10-20) BUN (7-21) mg/dL Creatinine (0.5-1.4) mg/dL Est GFR ( Amer) Est GFR (Non-Af Amer) POC Glucose (mg/dL) 118 H 118 H (65-110) mg/dL Random Glucose (70-110) mg/dL Lactic Acid (0.7-2.1) mmol/L Calcium (8.4-10.5) mg/dL Phosphorus (2.5-4.5) mg/dL Magnesium (1.7-2.2) mg/dL Total Bilirubin (0.2-1.3) mg/dL AST (15-39) U/L ALT (7-56) U/L Alkaline Phosphatase (38-133) U/L Total Protein (5.8-8.3) g/dL Albumin (3.0-4.8) g/dL Globulin gm/dL Albumin/Globulin Ratio (1.1-1.8) Procalcitonin (0.19-0.49) NG/ML Arterial Blood Potassium (3.6-5.2) mmol/L Venous Blood Potassium (3.6-5.2) mmol/L Heparin-induced Plt Ab Negative (Negative) HIV 1&2 Antibody Screen (NEGATIVE) Laboratory Results - last 24 hr 02/13/17 02/14/17 02/15/17 08:00 21:38 00:26 WBC RBC Hgb Hct MCV MCH MCHC RDW Plt Count Gran % Lymph % (Auto) Reeves % (Auto) Eos % (Auto) Baso % (Auto) Gran # Lymph # Reeves # Eos # Baso # PT INR APTT pCO2 pO2 HCO3 ABG pH ABG Total CO2 ABG O2 Saturation ABG Base Excess ABG Potassium VBG pH VBG pCO2 VBG HCO3 VBG Total CO2 VBG O2 Sat (Calc) VBG Base Excess VBG Potassium Sodium Chloride Glucose Lactate FiO2 Potassium Carbon Dioxide Anion Gap BUN Creatinine Est GFR ( Amer) Est GFR (Non-Af Amer) POC Glucose (mg/dL) 118 H 118 H Random Glucose Lactic Acid Calcium Phosphorus Magnesium Total Bilirubin AST ALT Alkaline Phosphatase Total Protein Albumin Globulin Albumin/Globulin Ratio Procalcitonin Arterial Blood Potassium Venous Blood Potassium Heparin-induced Plt Ab Negative HIV 1&2 Antibody Screen 02/15/17 02/15/17 02/15/17 03:43 05:20 06:14 WBC RBC Hgb Hct MCV MCH MCHC RDW Plt Count Gran % Lymph % (Auto) Reeves % (Auto) Eos % (Auto) Baso % (Auto) Gran # Lymph # Reeves # Eos # Baso # PT INR APTT pCO2 pO2 HCO3 ABG pH ABG Total CO2 ABG O2 Saturation ABG Base Excess ABG Potassium VBG pH VBG pCO2 VBG HCO3 VBG Total CO2 VBG O2 Sat (Calc) VBG Base Excess VBG Potassium Sodium Chloride Glucose Lactate FiO2 Potassium Carbon Dioxide Anion Gap BUN Creatinine Est GFR ( Amer) Est GFR (Non-Af Amer) POC Glucose (mg/dL) 104 120 H Random Glucose Lactic Acid Calcium Phosphorus Magnesium Total Bilirubin AST ALT Alkaline Phosphatase Total Protein Albumin Globulin Albumin/Globulin Ratio Procalcitonin Arterial Blood Potassium Venous Blood Potassium Heparin-induced Plt Ab HIV 1&2 Antibody Screen Negative 02/15/17 02/15/17 02/15/17 07:06 11:13 15:14 WBC RBC Hgb Hct MCV MCH MCHC RDW Plt Count Gran % Lymph % (Auto) Reeves % (Auto) Eos % (Auto) Baso % (Auto) Gran # Lymph # Reeves # Eos # Baso # PT INR APTT pCO2 pO2 HCO3 ABG pH ABG Total CO2 ABG O2 Saturation ABG Base Excess ABG Potassium VBG pH VBG pCO2 VBG HCO3 VBG Total CO2 VBG O2 Sat (Calc) VBG Base Excess VBG Potassium Sodium Chloride Glucose Lactate FiO2 Potassium Carbon Dioxide Anion Gap BUN Creatinine Est GFR ( Amer) Est GFR (Non-Af Amer) POC Glucose (mg/dL) 136 H 189 H Random Glucose Lactic Acid Calcium Phosphorus Magnesium Total Bilirubin AST ALT Alkaline Phosphatase Total Protein Albumin Globulin Albumin/Globulin Ratio Procalcitonin > 200.00 H Arterial Blood Potassium Venous Blood Potassium Heparin-induced Plt Ab HIV 1&2 Antibody Screen 02/15/17 02/15/17 02/15/17 17:49 21:36 22:57 WBC RBC Hgb Hct MCV MCH MCHC RDW Plt Count Gran % Lymph % (Auto) Reeves % (Auto) Eos % (Auto) Baso % (Auto) Gran # Lymph # Reeves # Eos # Baso # PT INR APTT pCO2 pO2 HCO3 ABG pH ABG Total CO2 ABG O2 Saturation ABG Base Excess ABG Potassium VBG pH VBG pCO2 VBG HCO3 VBG Total CO2 VBG O2 Sat (Calc) VBG Base Excess VBG Potassium Sodium Chloride Glucose Lactate FiO2 Potassium Carbon Dioxide Anion Gap BUN Creatinine Est GFR ( Amer) Est GFR (Non-Af Amer) POC Glucose (mg/dL) 125 H 103 87 Random Glucose Lactic Acid Calcium Phosphorus Magnesium Total Bilirubin AST ALT Alkaline Phosphatase Total Protein Albumin Globulin Albumin/Globulin Ratio Procalcitonin Arterial Blood Potassium Venous Blood Potassium Heparin-induced Plt Ab HIV 1&2 Antibody Screen 02/16/17 02/16/17 02/16/17 01:01 03:14 05:45 WBC RBC Hgb Hct MCV MCH MCHC RDW Plt Count Gran % Lymph % (Auto) Reeves % (Auto) Eos % (Auto) Baso % (Auto) Gran # Lymph # Reeves # Eos # Baso # PT INR APTT pCO2 32 L pO2 55.0 L HCO3 22.8 ABG pH 7.46 H ABG Total CO2 23.8 ABG O2 Saturation 91.2 L ABG Base Excess -0.7 ABG Potassium 3.4 L VBG pH VBG pCO2 VBG HCO3 VBG Total CO2 VBG O2 Sat (Calc) VBG Base Excess VBG Potassium Sodium 141.0 Chloride 111.0 H Glucose 99 Lactate 2.6 H FiO2 100.0 Potassium Carbon Dioxide Anion Gap BUN Creatinine Est GFR ( Amer) Est GFR (Non-Af Amer) POC Glucose (mg/dL) 112 H 94 Random Glucose Lactic Acid Calcium Phosphorus Magnesium Total Bilirubin AST ALT Alkaline Phosphatase Total Protein Albumin Globulin Albumin/Globulin Ratio Procalcitonin Arterial Blood Potassium 3.4 L Venous Blood Potassium Heparin-induced Plt Ab HIV 1&2 Antibody Screen 02/16/17 02/16/17 02/16/17 06:08 06:08 06:08 WBC 3.3 L D RBC 2.83 L Hgb 8.3 L Hct 23.5 L MCV 83.0 MCH 29.3 MCHC 35.3 RDW 16.8 H Plt Count 51 L Gran % 77.4 H Lymph % (Auto) 16.2 L Reeves % (Auto) 2.1 Eos % (Auto) 3.4 Baso % (Auto) 0.9 Gran # 2.54 Lymph # 0.5 L Reeves # 0.1 Eos # 0.1 Baso # 0.03 PT 17.7 H INR 1.64 H APTT 33.6 H pCO2 pO2 HCO3 ABG pH ABG Total CO2 ABG O2 Saturation ABG Base Excess ABG Potassium VBG pH VBG pCO2 VBG HCO3 VBG Total CO2 VBG O2 Sat (Calc) VBG Base Excess VBG Potassium Sodium 141 Chloride 108 Glucose Lactate FiO2 Potassium 3.4 L Carbon Dioxide 25 Anion Gap 11 BUN 37 H Creatinine 1.5 H Est GFR ( Amer) 45 Est GFR (Non-Af Amer) 37 POC Glucose (mg/dL) Random Glucose 93 Lactic Acid Calcium 6.8 L* Phosphorus 5.8 H Magnesium 1.6 L Total Bilirubin 1.4 H AST 1182 H ALT 613 H Alkaline Phosphatase 133 Total Protein 5.5 L Albumin 2.6 L Globulin 2.9 Albumin/Globulin Ratio 0.9 L Procalcitonin Arterial Blood Potassium Venous Blood Potassium Heparin-induced Plt Ab HIV 1&2 Antibody Screen 02/16/17 02/16/17 02/16/17 06:17 07:13 10:06 WBC RBC Hgb Hct MCV MCH MCHC RDW Plt Count Gran % Lymph % (Auto) Reeves % (Auto) Eos % (Auto) Baso % (Auto) Gran # Lymph # Reeves # Eos # Baso # PT INR APTT pCO2 pO2 HCO3 ABG pH ABG Total CO2 ABG O2 Saturation ABG Base Excess ABG Potassium VBG pH VBG pCO2 VBG HCO3 VBG Total CO2 VBG O2 Sat (Calc) VBG Base Excess VBG Potassium Sodium Chloride Glucose Lactate FiO2 Potassium Carbon Dioxide Anion Gap BUN Creatinine Est GFR ( Amer) Est GFR (Non-Af Amer) POC Glucose (mg/dL) 95 94 89 Random Glucose Lactic Acid Calcium Phosphorus Magnesium Total Bilirubin AST ALT Alkaline Phosphatase Total Protein Albumin Globulin Albumin/Globulin Ratio Procalcitonin Arterial Blood Potassium Venous Blood Potassium Heparin-induced Plt Ab HIV 1&2 Antibody Screen 02/16/17 02/16/17 02/16/17 11:17 14:00 14:00 WBC RBC Hgb Hct MCV MCH MCHC RDW Plt Count Gran % Lymph % (Auto) Reeves % (Auto) Eos % (Auto) Baso % (Auto) Gran # Lymph # Reeves # Eos # Baso # PT INR APTT pCO2 pO2 48 HCO3 ABG pH ABG Total CO2 ABG O2 Saturation ABG Base Excess ABG Potassium VBG pH 7.39 VBG pCO2 40.0 VBG HCO3 24.2 VBG Total CO2 25.4 VBG O2 Sat (Calc) 82.0 H VBG Base Excess -0.7 L VBG Potassium 3.6 Sodium 141.0 Chloride 110.0 H Glucose 108 H Lactate 2.6 H FiO2 21.0 Potassium Carbon Dioxide Anion Gap BUN Creatinine Est GFR ( Amer) Est GFR (Non-Af Amer) POC Glucose (mg/dL) 96 Random Glucose Lactic Acid 2.4 H Calcium Phosphorus Magnesium Total Bilirubin AST ALT Alkaline Phosphatase Total Protein Albumin Globulin Albumin/Globulin Ratio Procalcitonin Arterial Blood Potassium Venous Blood Potassium 3.6 Heparin-induced Plt Ab HIV 1&2 Antibody Screen Attending/Attestation - Attestation I have personally seen and examined this patient.: Yes I have fully participated in the care of the patient.: Yes I have reviewed all pertinent clinical information: Yes Notes (Text): 02/16/17 15:15 51 y/o F w/ MODS ARDS 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 VDRF, ARDSnet Continue supportive care per family's request. ARDS net protocol on the VENT to keep pao2> 55. CXR shows L atelectasis likely from mucous plug. Active chest PT, suction, mucomyst, nebs percussion bed. May need bronchsocopy if fails. Empiric abx given for multi organ failure/ infection. ESBL in the urine and 1 + blood cx's. Continue carbapenum and Vancomycin Abd/ free air likely from upper causes, ex ulcer etc. surgical team aware and following along for intervention. NGT in place palliative care in place. PH improved, but hypoxemic resp failure new issue. cc time 65 min
--- NOTE | 2017-02-16 07:27 | CP.PCM.PN ---
Subjective - Date & Time of Evaluation Date of Evaluation: 02/16/17 Time of Evaluation: 07:24 - Subjective Subjective: Surgery: Dr. Marti Patient remains intubated and sedated in ICU. She only grimaces to pain stimuli. Per nursing report, patient urine output was 450cc/24hr. Urine is not cloudy w/ moderate sediment. Patient remains on levophed, dobutamine, and vasopressin from blood pressure support. Patient also getting solu-cortef IV. Objective - Vital Signs/Intake and Output Vital Signs (last 24 hours): Temp Pulse Resp BP Pulse Ox 100.0 F H 98 H 37 H 89/62 L 90 L 02/15/17 18:00 02/16/17 07:00 02/14/17 22:51 02/16/17 07:00 02/16/17 07:00 Intake and Output: 02/16/17 02/16/17 06:59 18:59 Intake Total 106 1066 Output Total 650 Balance 106 416 - Medications Medications: Current Medications Arformoterol Tartrate (Brovana) 15 mcg IH [id number] [facility] Last Admin: 02/15/17 19:42 Dose: 15 mcg Budesonide (Pulmicort Respules) 0.5 mg IH [id number] [facility] Last Admin: 02/15/17 19:43 Dose: 0.5 mg Clonazepam (Klonopin) 1 mg PO BID [facility] PRN Reason: Protocol Last Admin: 02/14/17 10:00 Dose: Not Given Gabapentin (Neurontin) 800 mg PO QID [facility] Last Admin: 02/14/17 13:29 Dose: Not Given Heparin Sodium (Porcine) (Heparin) 5,000 units SC Q8 [facility] PRN Reason: Protocol Last Admin: 02/16/17 06:55 Dose: 5,000 units Hydrocortisone Sodium Succinate (Solu-Cortef) 50 mg IVP Q6H [facility] Last Admin: 02/16/17 01:45 Dose: 50 mg NOREPINEPHRINE BIT/0.9 % NACL (Levophed 4 Mg/ 250 Ml Ns Premixed) 4 mg in 250 mls @ 15 mls/hr IV .[id number] PRN; Protocol; 4 MCG/MIN PRN Reason: TITRATE PER MD ORDER Last Titration: 02/16/17 07:21 Dose: 4 mcg/min, 15 mls/hr Vasopressin 20 units/ Dextrose 101 mls @ 9.09 mls/hr IV .[id number] [facility]; 0.03 U/MIN PRN Reason: Protocol Last Admin: 02/16/17 04:00 Dose: 9.09 mls/hr Fentanyl Citrate (Fentanyl Citrate/Sodium Chloride 1 Mg/100 Ml) 1,000 mcg in 100 mls @ 7.5 mls/hr IV .[id number] PRN; Protocol; 75 MCG/HR PRN Reason: TITRATE PER MD ORDER Last Admin: 02/16/17 02:52 Dose: 150 mcg/hr, 15 mls/hr Sodium Bicarbonate 150 meq/ (Dextrose) 1,150 mls @ 150 mls/hr IV .[id number] [facility] Last Admin: 02/16/17 06:55 Dose: Not Given Midazolam 100 mg/100ml in NS (Midazolam 100 Mg/100ml In Ns) 100 mg in 100 mls @ 7 mls/hr IV .[id number] PRN; Protocol; 7 MG/HR PRN Reason: Agitation Last Titration: 02/16/17 00:00 Dose: 4 mg/hr, 4 mls/hr Epinephrine HCl 1 mg/ Sodium (Chloride) 51 mls @ 15.3 mls/hr IV .Q3H20M PRN; Protocol; 5 MCG/MIN PRN Reason: TITRATE PER MD ORDER Last Titration: 02/15/17 11:30 Dose: 0 mcg/min, 0 mls/hr Dobutamine HCl/Dextrose (Dobutamine/Dextrose 5% 500mg/250ml) 500 mg in 250 mls @ 3.844 mls/hr IV .Q24H PRN; Protocol; 2.5 MCG/KG/MIN PRN Reason: TITRATE PER PROTOCOL Last Admin: 02/15/17 23:00 Dose: 3.844 mls/hr Meropenem 1g/NS 100mL IVPB (Meropenem 1g/Ns 100ml Ivpb) 1 gm in 100 mls @ 100 mls/hr IVPB Q8 [facility] PRN Reason: Protocol Last Admin: 02/16/17 06:55 Dose: 100 mls/hr Midazolam HCl (Versed Inj) 2 mg IVP Q4H PRN PRN Reason: Agitation Last Admin: 02/14/17 09:40 Dose: 2 mg Ondansetron HCl (Zofran Inj) 4 mg IVP Q6 PRN PRN Reason: Nausea/Vomiting Last Admin: 02/13/17 16:26 Dose: 4 mg Oxycodone HCl (Oxycodone Immediate Release Tab) 15 mg PO Q4 PRN PRN Reason: Pain, moderate (4-7) Last Admin: 02/14/17 00:59 Dose: 15 mg Oxycodone HCl (Oxycontin Extended Release Tab) 60 mg PO Q12H PRN PRN Reason: Pain, moderate (4-7) Last Admin: 02/13/17 18:52 Dose: 60 mg Pantoprazole Sodium (Protonix Inj) 40 mg IVP DAILY [facility] Last Admin: 02/15/17 10:42 Dose: 40 mg - Labs Labs: 02/16/17 06:08 02/16/17 06:08 PT 17.7 Seconds (9.9-11.8) H 02/16/17 06:08 INR 1.64 (0.93-1.08) H 02/16/17 06:08 APTT 33.6 Seconds (23.7-30.8) H 02/16/17 06:08 - Constitutional Appears: Chronically Ill - Head Exam Head Exam: ATRAUMATIC, NORMOCEPHALIC - ENT Exam ENT Exam: Mucous Membranes Dry Additional comments: ET tube in place - Respiratory Exam Additional comments: on mechanical ventilation with a PEEP of 10, FiO2 of 100%, RR 30 - Cardiovascular Exam Cardiovascular Exam: Tachycardia, REGULAR RHYTHM - GI/Abdominal Exam GI & Abdominal Exam: Distended, Soft, Tenderness (patient grimaces to pain w/ palpation of the epigastrium ) - Neurological Exam Additional comments: sedated, grimaces to pain - Skin Skin Exam: Dry, Warm Assessment and Plan - Assessment and Plan (Free Text) Assessment: 51 y/o female in septic shock with multi-organ failure 2/2 intestinal perforation Plan: -cont ICU management -per family, do not want surgical intervention at this time -will discuss surgical options again with family -patient overall clinical status is poor -will continue to follow -further recs per Dr. Conchis Ray PGY1
[2017-02-16] MEDS: Arformoterol 15 mcg/2 ml Inh Sol IH SCH ×2 (07:56→20:56)
[2017-02-16] MEDS: Budesonide 0.5 mg/2 ml Inhal Susp UD IH SCH ×2 (07:56→20:56)
[2017-02-16] MEDS: Midazolam 100 mg/100ml in NS 100 MG/100 ML SOL IV PRN (08:14)
[2017-02-16] MEDS: Acetylcysteine 20% Inhal Soln (4ml) IH SCH ×4 (11:04→23:21)
[2017-02-16] MEDS: Albuterol 0.083% Inhal Sol (2.5 mg/3 mL) UD IH SCH ×4 (11:04→23:21)
--- NOTE | 2017-02-16 11:24 | RAD ---
HISTORY: intubated and hypoxic COMPARISON: 02/15/2017 FINDINGS: LUNGS: There is complete opacification of the left lung which is a new finding. This may be due to mucous plugging. There is volume loss with shift of the mediastinum to the left. There is also a right-sided perihilar infiltrate. PLEURA: No significant pleural effusion identified, no pneumothorax apparent. CARDIOVASCULAR: Normal. OSSEOUS STRUCTURES: No significant abnormalities. VISUALIZED UPPER ABDOMEN: Normal. OTHER FINDINGS: The endotracheal and nasogastric tubes are in satisfactory position. The right IJ line is in the right atrium unchanged IMPRESSION: Complete opacification of left lung with shift to the left suspicious for a mucous plug.
[2017-02-16 13:07] LABS: HEPARIN-IND PLATELET AB Negative (Negative)
[2017-02-16 14:24] LABS: VENOUS BLOOD GAS BASE EXCESS -0.7 mmol/L (0.0-2.0); VENOUS BLOOD PH 7.39 (7.32-7.43)
[2017-02-16] MEDS ORDERED: Sodium Bicarbonate 8.4% 100 MEQ in Dextrose 5%/0.45% NS 1,000 ML IV SCH (14:38)
--- NOTE | 2017-02-16 15:18 | PN ---
DATE: 02/16/2017 SUBJECTIVE: The patient is seen in the ICU. She remains on mechanical ventilation. She is sedated. She is unresponsive at this time. She also remains on Levophed at 6 mcg, vasopressin IV. She had respiratory distress/desaturation last night. Her pO2 was increased to 100%. Hemodynamically, she i s somewhat improved. Her 24-hour urine output was 800 mL. PHYSICAL EXAMINATION: GENERAL: Middle aged lady, lying in bed in the ICU, on mechanical ventilation, she is sedated. VITAL SIGNS: Blood pressure 89/62, heart rate 98, respiratory rate 37, temperature 100.6, T-max is 1 00.6. HEENT: Normocephalic, atraumatic, positive pallor. NECK: Supple, no JVD. LUNGS: Bilateral rhonchi, bilateral equal expansion. CARDIAC: S1, S2, regular rate and rhythm, no murmur, no rub. ABDOMEN: Distended, soft, bowel sounds absent. EXTREMITIES: 3+ pitting edema of the lower extremities, cyanosis of the hands. INTAKE AND OUTPUT: 1856/800. LABORATORY DATA: WBC 3.3, hemoglobin 8.3, hematocrit 23.5, platelets 51. Sodium 141, potassium 3.4, chloride 108, CO2 25, BUN 37, creatinine 1.5, glucose 93, calcium 6.8, phosphorus 5.8, magnesium 1.6 , AST 1182, ALT 613, albumin 2.6, corrected calcium is 7.8. Urine culture, E. coli and Proteus mirabilis. Blood culture, Staph aureus. Chest x-ray: Complete opacification of the left lung, right perihilar infiltrate. CURRENT MEDICATIONS: Mucomyst, albuterol, Brovana, dobutamine, epinephrine, fentanyl, heparin, Klono pin, norepinephrine, meropenem 1 gram q. 8, gabapentin, Protonix, Solu-Cortef, vasopressin, Versed, Z ofran. ASSESSMENT: A 51-year-old lady with a history of Crohn's disease, asthma, anxiety, bipolar disorder, multi-substance abuse, mucinous adenocarcinoma of the colon, intraabdominal abscess, laparotomy in M arch, hemicolectomy, colostomy. Admitted with gastrointestinal bleed, severe anemia, circulatory bennett ck, sepsis, severe acidosis, acute kidney injury, acute abdomen, intraabdominal perforation, multiorg an failure. The patient was evaluated by surgery. The patient was offered laparotomy for perforation and acute a bdomen. Surgery was declined by family members. At this time, patient remains critically ill. She is in septic shock. She is hypotensive, she has respiratory failure, she has acute kidney injury. T he patient was transfused, hemoglobin had come up to 10, slowly it is drifting down again. The patient also has severe genitourinary sepsis. Currently, her acute kidney injury seems to be improving slowly. She is not oligoanuric anymore. PLAN: 1. Continue IV fluids. 2. Dose all antibiotics for creatinine clearance about 10-30 mL per minute. 3. Continue inotropic support as needed. 4. Prognosis remains grim. 5. Replace potassium cautiously. 6. Change IV fluids to D5 half normal saline with 100 mEq of sodium bicarbonate at 80 mL per hour. 7. Monitor urine output closely. Case is discussed with ICU nurse at length. Case is discussed with ICU residents at length. More than 35 minutes was spent in the care of this c ritically ill patient. Lucinda Kelley MD cc: [id number] TT: 02/16/2017 15:18:20 Confirmation # [id number] Dictation # [id number]
[2017-02-16] MEDS ORDERED: Vasopressin 20 UNITS in Dextrose 5% In Water 100 ML IV SCH (15:41)
[2017-02-16 15:49] LABS: ARTERIAL BLOOD GAS HCO3 20.8 mmol/L (21-28); ARTERIAL BLOOD GAS O2 CONTENT 12.8 ML/dl (15-23); ARTERIAL BLOOD GAS PH 7.37 (7.35-7.45); ARTERIAL BLOOD HGB O2 SAT 97.9 % (95.0-98.0); CARBOXYHEMOGLOBIN 0.5 % (0.5-1.5); HHB 1.4 % (0-5); METHEMOGLOBIN 0.2 % (0.0-3.0)
--- NOTE | 2017-02-16 16:16 | CP.PCM.PN ---
<Melchor Pringle - Last Filed: 02/16/17 17:40> Subjective - Date & Time of Evaluation Date of Evaluation: 02/16/17 Time of Evaluation: 11:00 - Subjective Subjective: Patient seen and evaluated. Patient is intubated and sedated. She remains on norepi 4mcg and vasopressin. Patient withdraws to painful stimuli. Cloudy pinkish urine noted in uribe bag. Family is aware of patient's critical status and is in close contact with surgical and CCU teams. Objective - Vital Signs/Intake and Output Vital Signs (last 24 hours): Temp Pulse Resp BP Pulse Ox 100.6 F H 98 H 37 H 89/62 L 90 L 02/16/17 04:00 02/16/17 07:00 02/14/17 22:51 02/16/17 07:00 02/16/17 07:00 Intake and Output: 02/16/17 02/16/17 06:59 18:59 Intake Total 106 1346 Output Total 650 Balance 106 696 - Medications Medications: Current Medications Acetylcysteine (Acetylcysteine 20%) 4 ml IH [id number] [facility] Last Admin: 02/16/17 15:03 Dose: 4 ml Albuterol Sulfate (Albuterol 0.083% Inhal Amarilys (2.5 Mg/3 Ml) Ud) 2.5 mg IH [id number] [facility] Last Admin: 02/16/17 15:03 Dose: 2.5 mg Arformoterol Tartrate (Brovana) 15 mcg IH [id number] [facility] Last Admin: 02/16/17 07:56 Dose: 15 mcg Budesonide (Pulmicort Respules) 0.5 mg IH [id number] [facility] Last Admin: 02/16/17 07:56 Dose: 0.5 mg Clonazepam (Klonopin) 1 mg PO BID [facility] PRN Reason: Protocol Last Admin: 02/14/17 10:00 Dose: Not Given Gabapentin (Neurontin) 800 mg PO QID [facility] Last Admin: 02/14/17 13:29 Dose: Not Given Heparin Sodium (Porcine) (Heparin) 5,000 units SC Q8 [facility] PRN Reason: Protocol Last Admin: 02/16/17 13:14 Dose: 5,000 units Hydrocortisone Sodium Succinate (Solu-Cortef) 50 mg IVP Q6H [facility] Last Admin: 02/16/17 13:19 Dose: 50 mg NOREPINEPHRINE BIT/0.9 % NACL (Levophed 4 Mg/ 250 Ml Ns Premixed) 4 mg in 250 mls @ 15 mls/hr IV .[id number] PRN; Protocol; 4 MCG/MIN PRN Reason: TITRATE PER MD ORDER Last Titration: 02/16/17 13:00 Dose: 6 mcg/min, 22.5 mls/hr Fentanyl Citrate (Fentanyl Citrate/Sodium Chloride 1 Mg/100 Ml) 1,000 mcg in 100 mls @ 7.5 mls/hr IV .[id number] PRN; Protocol; 75 MCG/HR PRN Reason: TITRATE PER MD ORDER Last Admin: 02/16/17 09:12 Dose: 150 mcg/hr, 15 mls/hr Midazolam 100 mg/100ml in NS (Midazolam 100 Mg/100ml In Ns) 100 mg in 100 mls @ 7 mls/hr IV .[id number] PRN; Protocol; 7 MG/HR PRN Reason: Agitation Last Titration: 02/16/17 14:00 Dose: 0 mg/hr, 0 mls/hr Epinephrine HCl 1 mg/ Sodium (Chloride) 51 mls @ 15.3 mls/hr IV .Q3H20M PRN; Protocol; 5 MCG/MIN PRN Reason: TITRATE PER MD ORDER Last Titration: 02/15/17 11:30 Dose: 0 mcg/min, 0 mls/hr Dobutamine HCl/Dextrose (Dobutamine/Dextrose 5% 500mg/250ml) 500 mg in 250 mls @ 3.844 mls/hr IV .Q24H PRN; Protocol; 2.5 MCG/KG/MIN PRN Reason: TITRATE PER PROTOCOL Last Admin: 02/15/17 23:00 Dose: 3.844 mls/hr Meropenem 1g/NS 100mL IVPB (Meropenem 1g/Ns 100ml Ivpb) 1 gm in 100 mls @ 100 mls/hr IVPB Q8 [facility] PRN Reason: Protocol Last Admin: 02/16/17 13:16 Dose: 100 mls/hr Sodium Bicarbonate 100 meq/ (Dextrose/Sodium Chloride) 1,100 mls @ 80 mls/hr IV .[id number] [facility] Last Admin: 02/16/17 15:35 Dose: Not Given Vasopressin 20 units/ Dextrose 101 mls @ 9.09 mls/hr IV .Q11H7M [facility]; 0.03 U/MIN PRN Reason: Protocol Midazolam HCl (Versed Inj) 2 mg IVP Q4H PRN PRN Reason: Agitation Last Admin: 02/14/17 09:40 Dose: 2 mg Ondansetron HCl (Zofran Inj) 4 mg IVP Q6 PRN PRN Reason: Nausea/Vomiting Last Admin: 02/13/17 16:26 Dose: 4 mg Pantoprazole Sodium (Protonix Inj) 40 mg IVP DAILY [facility] Last Admin: 02/16/17 10:01 Dose: 40 mg - Labs Labs: 02/16/17 06:08 02/16/17 06:08 PT 17.7 Seconds (9.9-11.8) H 02/16/17 06:08 INR 1.64 (0.93-1.08) H 02/16/17 06:08 APTT 33.6 Seconds (23.7-30.8) H 02/16/17 06:08 - Head Exam Head Exam: ATRAUMATIC, NORMOCEPHALIC - Eye Exam Eye Exam: EOMI, PERRL - ENT Exam ENT Exam: Mucous Membranes Dry Additional comments: ET tube in place - Neck Exam Neck Exam: absent: Lymphadenopathy - Respiratory Exam Respiratory Exam: Clear to Ausculation Bilateral, Rales. absent: Rhonchi, Wheezes - Cardiovascular Exam Cardiovascular Exam: REGULAR RHYTHM, +S1, +S2 - GI/Abdominal Exam GI & Abdominal Exam: Soft. absent: Distended, Firm - Extremities Exam Extremities Exam: Pedal Edema - Neurological Exam Additional comments: withdraws to painful stimuli. sedated. - Skin Skin Exam: Dry, Normal Color Assessment and Plan - Assessment and Plan (Free Text) Assessment: 51 year old female with past medical history of Crohns disease, asthma, bipolar disorder, polysubstance abuse and recent diagnoses of adenocarcinoma of the colon is in septic shock currently in ICU. Patient remains intubated and sedated. CCU team is weaning off pressors. Status remains critical. Septic shock 2/2 abdominal perforation complicated by ESBL urosepsis - Continue pressors for hemodynamic stability - manage per CCU team - continue Meropenem - ID following - Palliative care consulted. Family is aware of critical status. Anemia, thrombocytopenia - possible DIC picture. - will transfer as needed while maintaining appropriate volume status. Adenocarcinoma of colon: consulted heme/onc. Ct of chest shows interstitial infiltrates with extensive bibasilar consolidations. Extensive B/L and medistinal LAD. Polysubstance abuse: UDS is positive for opiates, benzos, cocaine Prophylaxis: Protonix. SCDs. <Mari Kincaid B - Last Filed: 02/17/17 15:23> Objective - Vital Signs/Intake and Output Vital Signs (last 24 hours): Temp Pulse Resp BP Pulse Ox 99.2 F 72 22 100/70 98 02/17/17 04:00 02/17/17 08:30 02/17/17 07:01 02/17/17 08:30 02/17/17 07:01 Intake and Output: 02/17/17 02/17/17 06:59 18:59 Intake Total 630 66 Output Total 500 Balance 130 66 - Medications Medications: Current Medications Acetylcysteine (Acetylcysteine 20%) 4 ml IH [id number] [facility] Last Admin: 02/17/17 03:19 Dose: 4 ml Albuterol Sulfate (Albuterol 0.083% Inhal Amarilys (2.5 Mg/3 Ml) Ud) 2.5 mg IH [id number] [facility] Last Admin: 02/17/17 11:30 Dose: 2.5 mg Arformoterol Tartrate (Brovana) 15 mcg IH [id number] [facility] Last Admin: 02/17/17 06:47 Dose: 15 mcg Budesonide (Pulmicort Respules) 0.5 mg IH [id number] [facility] Last Admin: 02/17/17 06:48 Dose: 0.5 mg Clonazepam (Klonopin) 1 mg PO BID [facility] PRN Reason: Protocol Last Admin: 02/14/17 10:00 Dose: Not Given Furosemide (Lasix) 40 mg IVP DAILY [facility] Gabapentin (Neurontin) 800 mg PO QID [facility] Last Admin: 02/14/17 13:29 Dose: Not Given Hydrocortisone Sodium Succinate (Solu-Cortef) 50 mg IVP Q6H [facility] Last Admin: 02/17/17 12:42 Dose: 50 mg NOREPINEPHRINE BIT/0.9 % NACL (Levophed 4 Mg/ 250 Ml Ns Premixed) 4 mg in 250 mls @ 15 mls/hr IV .[id number] PRN; Protocol; 4 MCG/MIN PRN Reason: TITRATE PER MD ORDER Last Titration: 02/17/17 09:10 Dose: 0 mcg/min, 0 mls/hr Fentanyl Citrate (Fentanyl Citrate/Sodium Chloride 1 Mg/100 Ml) 1,000 mcg in 100 mls @ 7.5 mls/hr IV .[id number] PRN; Protocol; 75 MCG/HR PRN Reason: TITRATE PER MD ORDER Last Admin: 02/16/17 16:00 Dose: 150 mcg/hr, 15 mls/hr Midazolam 100 mg/100ml in NS (Midazolam 100 Mg/100ml In Ns) 100 mg in 100 mls @ 7 mls/hr IV .[id number] PRN; Protocol; 7 MG/HR PRN Reason: Agitation Last Titration: 02/16/17 14:00 Dose: 0 mg/hr, 0 mls/hr Epinephrine HCl 1 mg/ Sodium (Chloride) 51 mls @ 15.3 mls/hr IV .Q3H20M PRN; Protocol; 5 MCG/MIN PRN Reason: TITRATE PER MD ORDER Last Titration: 02/15/17 11:30 Dose: 0 mcg/min, 0 mls/hr Meropenem 1g/NS 100mL IVPB (Meropenem 1g/Ns 100ml Ivpb) 1 gm in 100 mls @ 100 mls/hr IVPB Q8 [facility] PRN Reason: Protocol Last Admin: 02/17/17 05:40 Dose: 100 mls/hr Sodium Bicarbonate 100 meq/ (Dextrose/Sodium Chloride) 1,100 mls @ 80 mls/hr IV .[id number] [facility] Last Admin: 02/16/17 15:35 Dose: Not Given Vasopressin 20 units/ Dextrose 101 mls @ 9.09 mls/hr IV .Q11H7M [facility]; 0.03 U/MIN PRN Reason: Protocol Last Titration: 02/16/17 16:00 Dose: 0 u/min, 0 mls/hr Vancomycin HCl 1.5 gm/ Sodium (Chloride) 250 mls @ 167 mls/hr IVPB Q12H [facility] PRN Reason: Protocol Last Admin: 02/17/17 09:05 Dose: 167 mls/hr Amino Acids/Electrolytes/Dextrose (Clinimix 5/20 % "E" (1000 Ml)) 1,000 mls @ 42 mls/hr IV .[id number] [facility] Dobutamine HCl/Dextrose (Dobutamine/Dextrose 5% 500mg/250ml) 500 mg in 250 mls @ 6.328 mls/hr IV .Q24H PRN; Protocol; 2.5 MCG/KG/MIN PRN Reason: TITRATE PER PROTOCOL Last Titration: 02/17/17 10:45 Dose: 2.5 mcg/kg/min, 6.328 mls/hr Midazolam HCl (Versed Inj) 2 mg IVP Q4H PRN PRN Reason: Agitation Last Admin: 02/14/17 09:40 Dose: 2 mg Ondansetron HCl (Zofran Inj) 4 mg IVP Q6 PRN PRN Reason: Nausea/Vomiting Last Admin: 02/13/17 16:26 Dose: 4 mg Pantoprazole Sodium (Protonix Inj) 40 mg IVP DAILY [facility] Last Admin: 02/17/17 09:20 Dose: 40 mg - Labs Labs: 02/17/17 06:00 02/17/17 06:00 PT 17.7 Seconds (9.9-11.8) H 02/16/17 06:08 INR 1.64 (0.93-1.08) H 02/16/17 06:08 APTT 33.6 Seconds (23.7-30.8) H 02/16/17 06:08 Attending/Attestation - Attestation I have personally seen and examined this patient.: Yes I have fully participated in the care of the patient.: Yes I have reviewed all pertinent clinical information, including history, physical exam and plan: Yes Notes (Text): I have seen and examined the patient at bedside. Agree with the above note with the following additions/ exceptions: Briefly this is 51 year old female with history of Crohn's disease, colostomy, asthma, bipolar disorder, polysubstance abuse, recent diagnoses of adenocarcinoma of the colon , psoriasis, anxiety, depression who presented with generalized weakness and leg pain. Colonoscopy revealed large bulky firm mass however no biopsy was performed. Her stay was complicated by septic shock due to abdominal perforation and was found to have metabolic acidosis, elevated troponin, transaminitis due to shock liver, DIC, anemia, thrombocytopenia, acute kidney injury, EFecalis bacteremia, E coli/ proteus UTI and ventilator dependent respiratory failure. Patient is DNR. She also has been requiring pressors (norepi and vaso), stress dose of steroids and Fio2 increased to 100% overnight. CT chest showed right sided infiltrates consistent with ARDS/ mucous plud. Discussed with fuel operator. Plan for mucomyst , chest PT and nebs. Continue meropenem. Patient is currently sedated with versed. Palliative care consult pending. Dr Mari Kincaid
[2017-02-16 17:58] LABS: ADD MANUAL DIFF? NO
[2017-02-16 18:13] LABS: BASO # 0.07 K/mm3 (0.0-2.0); EOS # 0.2 (0.0-0.7); EOS % 2.6 % (1.5-5.0); GRAN # 5.51 (1.4-6.5); GRAN % 76.1 % (50.0-68.0); LYMPH # 1.4 (1.2-3.4); LYMPH % 18.9 % (22.0-35.0); MEAN CELL VOLUME 85.5 fL (80.0-105.0); MEAN CORPUSCULAR HEMOGLOBIN 28.9 pg (25.0-35.0); MEAN CORPUSCULAR HGB CONC 33.8 g/dl (31.0-37.0); MONO # 0.1 (0.1-0.6); MONO % 1.4 % (1.0-6.0); RED CELL DISTRIBUTION WIDTH 16.9 % (11.5-14.5); WHITE BLOOD COUNT 7.2 10^3/ul (4.5-11.0)
[2017-02-16] MEDS ORDERED: Sodium Chloride 0.9% 1,000 ML IV STA (18:13)
[2017-02-16 18:16] LABS: PLATELET COUNT 44 10^3/uL (120.0-450.0)
[2017-02-16 18:40] LABS: VENOUS BLOOD GAS BASE EXCESS -1.9 mmol/L (0.0-2.0); VENOUS BLOOD PH 7.35 (7.32-7.43)
--- NOTE | 2017-02-16 19:14 | CP.PCM.PN ---
Subjective - Date & Time of Evaluation Date of Evaluation: 02/16/17 Time of Evaluation: 17:45 - Subjective Subjective: Infectious Disease Follow Up: February 16, 2017 50 yo female with history of Crohn's disease admitted for groin and abdominal pain. She was recently discharged from the hospital with doxycycline and augmentin. During the hospitalization the patient short of breath, tachycardic , and tachypnic. Patient became hypotensive and required admission to the MICU. The patient required pressors and intubation and ventilation. The patient is on 4 pressors and received 4 units of PRBCs and FFPs. Very poor prognosis. The patient remains intubated. Little response to noxious stimuli. Her acidosis improved but respiratory functions worsening. She remains intubated and ventilated and multiple pressors. Objective - Vital Signs/Intake and Output Vital Signs (last 24 hours): Temp Pulse Resp BP Pulse Ox 98.2 F 73 37 H 101/71 97 02/16/17 16:00 02/16/17 18:00 02/14/17 22:51 02/16/17 18:00 02/16/17 18:00 Intake and Output: 02/16/17 02/17/17 18:59 06:59 Intake Total 1556 Output Total 650 Balance 906 - Medications Medications: Current Medications Acetylcysteine (Acetylcysteine 20%) 4 ml IH [id number] [facility] Last Admin: 02/16/17 15:03 Dose: 4 ml Albuterol Sulfate (Albuterol 0.083% Inhal Amarilys (2.5 Mg/3 Ml) Ud) 2.5 mg IH [id number] [facility] Last Admin: 02/16/17 15:03 Dose: 2.5 mg Arformoterol Tartrate (Brovana) 15 mcg IH [id number] [facility] Last Admin: 02/16/17 07:56 Dose: 15 mcg Budesonide (Pulmicort Respules) 0.5 mg IH [id number] [facility] Last Admin: 02/16/17 07:56 Dose: 0.5 mg Clonazepam (Klonopin) 1 mg PO BID [facility] PRN Reason: Protocol Last Admin: 02/14/17 10:00 Dose: Not Given Gabapentin (Neurontin) 800 mg PO QID [facility] Last Admin: 02/14/17 13:29 Dose: Not Given Heparin Sodium (Porcine) (Heparin) 5,000 units SC Q8 [facility] PRN Reason: Protocol Last Admin: 02/16/17 13:14 Dose: 5,000 units Hydrocortisone Sodium Succinate (Solu-Cortef) 50 mg IVP Q6H [facility] Last Admin: 02/16/17 13:19 Dose: 50 mg NOREPINEPHRINE BIT/0.9 % NACL (Levophed 4 Mg/ 250 Ml Ns Premixed) 4 mg in 250 mls @ 15 mls/hr IV .[id number] PRN; Protocol; 4 MCG/MIN PRN Reason: TITRATE PER MD ORDER Last Titration: 02/16/17 18:15 Dose: 0 mcg/min, 0 mls/hr Fentanyl Citrate (Fentanyl Citrate/Sodium Chloride 1 Mg/100 Ml) 1,000 mcg in 100 mls @ 7.5 mls/hr IV .[id number] PRN; Protocol; 75 MCG/HR PRN Reason: TITRATE PER MD ORDER Last Admin: 02/16/17 16:00 Dose: 150 mcg/hr, 15 mls/hr Midazolam 100 mg/100ml in NS (Midazolam 100 Mg/100ml In Ns) 100 mg in 100 mls @ 7 mls/hr IV .[id number] PRN; Protocol; 7 MG/HR PRN Reason: Agitation Last Titration: 02/16/17 14:00 Dose: 0 mg/hr, 0 mls/hr Epinephrine HCl 1 mg/ Sodium (Chloride) 51 mls @ 15.3 mls/hr IV .Q3H20M PRN; Protocol; 5 MCG/MIN PRN Reason: TITRATE PER MD ORDER Last Titration: 02/15/17 11:30 Dose: 0 mcg/min, 0 mls/hr Dobutamine HCl/Dextrose (Dobutamine/Dextrose 5% 500mg/250ml) 500 mg in 250 mls @ 3.844 mls/hr IV .Q24H PRN; Protocol; 2.5 MCG/KG/MIN PRN Reason: TITRATE PER PROTOCOL Last Admin: 02/15/17 23:00 Dose: 3.844 mls/hr Meropenem 1g/NS 100mL IVPB (Meropenem 1g/Ns 100ml Ivpb) 1 gm in 100 mls @ 100 mls/hr IVPB Q8 [facility] PRN Reason: Protocol Last Admin: 02/16/17 13:16 Dose: 100 mls/hr Sodium Bicarbonate 100 meq/ (Dextrose/Sodium Chloride) 1,100 mls @ 80 mls/hr IV .[id number] [facility] Last Admin: 02/16/17 15:35 Dose: Not Given Vasopressin 20 units/ Dextrose 101 mls @ 9.09 mls/hr IV .Q11H7M [facility]; 0.03 U/MIN PRN Reason: Protocol Last Admin: 02/16/17 15:15 Dose: 0.02 u/min, 6.06 mls/hr Sodium Chloride (Sodium Chloride 0.9%) 1,000 mls @ 999 mls/hr IV .Q1H1M ST[facility] Stop: 02/16/17 19:13 Last Admin: 02/16/17 18:15 Dose: 999 mls/hr Midazolam HCl (Versed Inj) 2 mg IVP Q4H PRN PRN Reason: Agitation Last Admin: 02/14/17 09:40 Dose: 2 mg Ondansetron HCl (Zofran Inj) 4 mg IVP Q6 PRN PRN Reason: Nausea/Vomiting Last Admin: 02/13/17 16:26 Dose: 4 mg Pantoprazole Sodium (Protonix Inj) 40 mg IVP DAILY [facility] Last Admin: 02/16/17 10:01 Dose: 40 mg - Labs Labs: 02/16/17 17:55 02/16/17 06:08 PT 17.7 Seconds (9.9-11.8) H 02/16/17 06:08 INR 1.64 (0.93-1.08) H 02/16/17 06:08 APTT 33.6 Seconds (23.7-30.8) H 02/16/17 06:08 - Constitutional Appears: Non-toxic, No Acute Distress, Chronically Ill - Head Exam Head Exam: ATRAUMATIC, NORMOCEPHALIC - Eye Exam Eye Exam: EOMI, PERRL Pupil Exam: NORMAL ACCOMODATION, PERRL - ENT Exam ENT Exam: Mucous Membranes Moist, Normal External Ear Exam, TM's Normal Bilaterally - Neck Exam Neck Exam: Full ROM, Normal Inspection - Respiratory Exam Respiratory Exam: Clear to Ausculation Bilateral, NORMAL BREATHING PATTERN. absent: Rales, Rhonchi, Wheezes - Cardiovascular Exam Cardiovascular Exam: Tachycardia, RRR, +S1, +S2 - GI/Abdominal Exam GI & Abdominal Exam: Soft, Normal Bowel Sounds. absent: Distended, Tenderness - Extremities Exam Extremities Exam: Full ROM, Normal Inspection - Neurological Exam Additional comments: AAO x 0, intubated and ventilated. unresponsive. - Psychiatric Exam Additional comments: unresponsive Assessment and Plan - Assessment and Plan (Free Text) Assessment: 51 yo female currently intubated and ventilated and poorly responsive with hypotension requiring pressor support with 4 medications. Currently on Meropenem and Vancomycin. Extremely poor prognosis. Supportive care. There were concerns for abdominal perforation and findings of extensive abdominal ascites and pneumoperitoneum. Severe anemia requiring PRBC transfusions. Meropenem is a reasonable choice for generalized antibiotic coverage. Supportive care. Dismal prognosis. Lactic acidosis improved but respiratory function has worsened. Thank you for allowing me to participate in the care of the patient, we will follow with you.
[2017-02-16 21:02] LABS: NEUTROPHIL 52 % (50.0-70.0)
[2017-02-16 21:04] LABS: BAND 14 % (0-2)
[2017-02-16 21:05] LABS: ANISOCYTOSIS SLIGHT; EOSINOPHIL 4 % (0.0-3.0); HYPOCHROMIA SLIGHT; MICROCYTOSIS SLIGHT; NUCLEATED RED BLOOD CELL 4 %; PLATELET ESTIMATE LOW (NORMAL); POLYCHROMASIA SLIGHT
[2017-02-16 21:06] LABS: BURR CELLS SLIGHT
[2017-02-16 23:01] LABS: VENOUS BLOOD GAS BASE EXCESS -0.9 mmol/L (0.0-2.0); VENOUS BLOOD PH 7.35 (7.32-7.43)
[2017-02-17 03:05] LABS: VENOUS BLOOD GAS BASE EXCESS -1.5 mmol/L (0.0-2.0); VENOUS BLOOD PH 7.37 (7.32-7.43)
[2017-02-17] MEDS: Albuterol 0.083% Inhal Sol (2.5 mg/3 mL) UD IH SCH ×6 (03:19→23:41)
[2017-02-17] MEDS: Acetylcysteine 20% Inhal Soln (4ml) IH SCH ×2 (03:19→19:48)
[2017-02-17 05:18] LABS: ARTERIAL BLOOD GAS HCO3 22.7 mmol/L (21-28); ARTERIAL BLOOD GAS PH 7.42 (7.35-7.45)
[2017-02-17 05:19] LABS: ABG MECHANICAL RATE 22; ATERIAL BLOOD GAS PEEP 10
[2017-02-17] MEDS: Meropenem 1g/NS 100mL IVPB 1 GM/100 ML PIGGYBACK IVPB SCH ×3 (05:40→22:30)
[2017-02-17 06:18] LABS: HEMATOCRIT 25.5 % (36.0-48.0); MEAN CELL VOLUME 85.9 fL (80.0-105.0); MEAN CORPUSCULAR HEMOGLOBIN 28.6 pg (25.0-35.0); MEAN CORPUSCULAR HGB CONC 33.3 g/dl (31.0-37.0); RED CELL DISTRIBUTION WIDTH 16.9 % (11.5-14.5); WHITE BLOOD COUNT 8.3 10^3/ul (4.5-11.0)
[2017-02-17 06:27] LABS: ADD MANUAL DIFF? YES
[2017-02-17 06:30] LABS: PLATELET COUNT 37 10^3/uL (120.0-450.0)
[2017-02-17 06:46] LABS: ALB/GLOB RATIO 0.8 (1.1-1.8); ALKALINE PHOSPHATASE 140 U/L (38-133); ALT/SGPT 476 U/L (7-56); AST/SGOT 559 U/L (15-39); BILIRUBIN,TOTAL 1.9 mg/dL (0.2-1.3); BLOOD UREA NITROGEN 34 mg/dL (7-21); CALCIUM 7.7 mg/dL (8.4-10.5); CARBON DIOXIDE 27 mmol/L (21-33); CHLORIDE 109 mmol/L (98-107); GFR AFRICAN-AMERICAN > 60; GLUCOSE,RANDOM 106 mg/dL (70-110); MAGNESIUM 1.8 mg/dL (1.7-2.2); POTASSIUM 3.1 mmol/L (3.6-5.0); SODIUM 142 mmol/L (132-148); TOTAL PROTEIN 5.9 g/dL (5.8-8.3)
[2017-02-17] MEDS: Arformoterol 15 mcg/2 ml Inh Sol IH SCH ×2 (06:47→19:47)
[2017-02-17] MEDS: Budesonide 0.5 mg/2 ml Inhal Susp UD IH SCH ×2 (06:48→19:47)
[2017-02-17 07:01] LABS: BAND 7 % (0-2); EOSINOPHIL 4 % (0.0-3.0); METAMYELOCYTE 2 %; MYELOCYTE 3 %; NEUTROPHIL 68 % (50.0-70.0)
[2017-02-17 07:02] LABS: ANISOCYTOSIS 1+; CORRECTED WBC 7.2 K/mm3 (4.5-11.0); HYPOCHROMIA 1+; NUCLEATED RED BLOOD CELL 15 %; PLATELET ESTIMATE LOW (NORMAL)
[2017-02-17] MEDS ORDERED: DOBUTamine 500mg/250ml D5W 500 MG/250 ML BAG IV PRN (07:31)
--- NOTE | 2017-02-17 08:13 | CP.PCM.PN ---
Subjective - Date & Time of Evaluation Date of Evaluation: 02/17/17 Time of Evaluation: 08:11 - Subjective Subjective: Surgery: Dr. Marti Patient remains intubated in ICU. Over the past 24hrs patient has been weaned to Levophed 5mcg for blood pressure support. Vent setting requirements have decreased to Fio2 of 60%, down from 100%. PEEP remains at 10. OGT remains on suction with about 200cc of bilious output in 12hrs. Urine output has increased to 1200cc/24hrs. Objective - Vital Signs/Intake and Output Vital Signs (last 24 hours): Temp Pulse Resp BP Pulse Ox 99.2 F 70 22 102/75 98 02/17/17 04:00 02/17/17 06:00 02/17/17 07:01 02/17/17 06:00 02/17/17 07:01 Intake and Output: 02/17/17 02/17/17 06:59 18:59 Intake Total 630 Output Total 500 Balance 130 - Medications Medications: Current Medications Acetylcysteine (Acetylcysteine 20%) 4 ml IH [id number] [facility] Last Admin: 02/17/17 03:19 Dose: 4 ml Albuterol Sulfate (Albuterol 0.083% Inhal Amarilys (2.5 Mg/3 Ml) Ud) 2.5 mg IH [id number] [facility] Last Admin: 02/17/17 06:48 Dose: 2.5 mg Arformoterol Tartrate (Brovana) 15 mcg IH [id number] [facility] Last Admin: 02/17/17 06:47 Dose: 15 mcg Budesonide (Pulmicort Respules) 0.5 mg IH [id number] [facility] Last Admin: 02/17/17 06:48 Dose: 0.5 mg Clonazepam (Klonopin) 1 mg PO BID [facility] PRN Reason: Protocol Last Admin: 02/14/17 10:00 Dose: Not Given Gabapentin (Neurontin) 800 mg PO QID [facility] Last Admin: 02/14/17 13:29 Dose: Not Given Hydrocortisone Sodium Succinate (Solu-Cortef) 50 mg IVP Q6H [facility] Last Admin: 02/17/17 00:39 Dose: 50 mg NOREPINEPHRINE BIT/0.9 % NACL (Levophed 4 Mg/ 250 Ml Ns Premixed) 4 mg in 250 mls @ 15 mls/hr IV .[id number] PRN; Protocol; 4 MCG/MIN PRN Reason: TITRATE PER MD ORDER Last Titration: 02/16/17 20:00 Dose: 5 mcg/min, 18.75 mls/hr Fentanyl Citrate (Fentanyl Citrate/Sodium Chloride 1 Mg/100 Ml) 1,000 mcg in 100 mls @ 7.5 mls/hr IV .[id number] PRN; Protocol; 75 MCG/HR PRN Reason: TITRATE PER MD ORDER Last Admin: 02/16/17 16:00 Dose: 150 mcg/hr, 15 mls/hr Midazolam 100 mg/100ml in NS (Midazolam 100 Mg/100ml In Ns) 100 mg in 100 mls @ 7 mls/hr IV .[id number] PRN; Protocol; 7 MG/HR PRN Reason: Agitation Last Titration: 02/16/17 14:00 Dose: 0 mg/hr, 0 mls/hr Epinephrine HCl 1 mg/ Sodium (Chloride) 51 mls @ 15.3 mls/hr IV .Q3H20M PRN; Protocol; 5 MCG/MIN PRN Reason: TITRATE PER MD ORDER Last Titration: 02/15/17 11:30 Dose: 0 mcg/min, 0 mls/hr Meropenem 1g/NS 100mL IVPB (Meropenem 1g/Ns 100ml Ivpb) 1 gm in 100 mls @ 100 mls/hr IVPB Q8 [facility] PRN Reason: Protocol Last Admin: 02/17/17 05:40 Dose: 100 mls/hr Sodium Bicarbonate 100 meq/ (Dextrose/Sodium Chloride) 1,100 mls @ 80 mls/hr IV .[id number] [facility] Last Admin: 02/16/17 15:35 Dose: Not Given Vasopressin 20 units/ Dextrose 101 mls @ 9.09 mls/hr IV .Q11H7M [facility]; 0.03 U/MIN PRN Reason: Protocol Last Titration: 02/16/17 16:00 Dose: 0 u/min, 0 mls/hr Potassium Chloride (Potassium Chloride 20 Meq/100 Ml) 20 meq in 100 mls @ 50 mls/hr IVPB Q2H [facility] Stop: 02/17/17 10:59 Dobutamine HCl/Dextrose (Dobutamine/Dextrose 5% 500mg/250ml) 500 mg in 250 mls @ 6.328 mls/hr IV .Q24H PRN; Protocol; 2.5 MCG/KG/MIN PRN Reason: TITRATE PER PROTOCOL Vancomycin HCl 1.5 gm/ Sodium (Chloride) 250 mls @ 167 mls/hr IVPB Q12H [facility] PRN Reason: Protocol Midazolam HCl (Versed Inj) 2 mg IVP Q4H PRN PRN Reason: Agitation Last Admin: 02/14/17 09:40 Dose: 2 mg Ondansetron HCl (Zofran Inj) 4 mg IVP Q6 PRN PRN Reason: Nausea/Vomiting Last Admin: 02/13/17 16:26 Dose: 4 mg Pantoprazole Sodium (Protonix Inj) 40 mg IVP DAILY [facility] Last Admin: 02/16/17 10:01 Dose: 40 mg - Labs Labs: 02/17/17 06:00 02/17/17 06:00 PT 17.7 Seconds (9.9-11.8) H 02/16/17 06:08 INR 1.64 (0.93-1.08) H 02/16/17 06:08 APTT 33.6 Seconds (23.7-30.8) H 02/16/17 06:08 - Constitutional Appears: No Acute Distress, Cachectic, Chronically Ill - Head Exam Head Exam: ATRAUMATIC, NORMOCEPHALIC Additional comments: ET tube and OGT in place - ENT Exam ENT Exam: Mucous Membranes Dry - Respiratory Exam Additional comments: on mechanical ventilation - Cardiovascular Exam Cardiovascular Exam: REGULAR RHYTHM. absent: Tachycardia - GI/Abdominal Exam GI & Abdominal Exam: Distended, Soft, Tenderness (patient grimaces to palpation of the abdomen diffusely ). absent: Guarding, Rebound Additional comments: left lower quadrant ostomy, stoma is pink patent. liquid brown stool output. - Neurological Exam Additional comments: intubated sedated - Skin Skin Exam: Dry, Warm Assessment and Plan - Assessment and Plan (Free Text) Assessment: 51 y/o female in septic shock with multi-organ failure and pneumoperitoneum Plan: -clinically patient has slightly improved, requiring less blood pressure support -overall prognosis remains guarded -abdomen is soft but distended however patient's family preferred non-operative management of presumed bowel perforation -at this point, patient overall clinical status would not benefit from surgical intervention -cont non operative management -IVP protonix -OGT on suction -medical management per ICU team -will cont to follow -further recs per Dr. Kaia Ray PGY1
[2017-02-17] MEDS: DOBUTamine 500mg/250ml D5W 500 MG/250 ML BAG IV PRN (08:30)
--- NOTE | 2017-02-17 08:46 | PN ---
DATE: 02/17/2017 The patient seen and examined at bedside. She is on fentanyl 150 mcg per hour. She is on norepinephrine 2 mcg per minute. She is on PRVC 340/22/10/60. PHYSICAL EXAMINATION: VITAL SIGNS: Blood pressure 97/71, heart rate 70, oxygen saturation 96%, end- tidal CO2 on the monitor 32, respiratory rate 22. NG tube is on suction and drains about 200 mL of the bilious output. HEAD AND NECK: Atraumatic. LUNGS: Few crackles bilaterally. HEART: Regular rate and rhythm. S1, S2 normal. ABDOMEN: Softer. Colostomy present. Abdomen appears to be not tender. Colostomy viable and pink. Some fecal matter in colostomy bag present. No involuntary guarding. MUSCULOSKELETAL: Trace bilateral pedal and ankle edema. NEUROLOGIC: The patient is sedated, but opens eyes on stimulation. SKIN: Moist. PSYCHIATRIC: The patient is sedated with fentanyl. LABORATORY DATA: WBC 8.3, hemoglobin 8.5, platelet count 37 (heparin subQ was held mechanical DVT prophylaxis continued). Sodium 142, potassium 3.1 ( supplemented), chloride 109, BUN 34, creatinine 1.1, glucose 119, AST 559 down from 1182, ALT 476 down from 613. ABG showed 7.42/35/134 on 70% FIO2 which was adjusted to 60% FIO2. Lactic acid 1.7 down from 2. Hepatitis profile negative. Heparin-induced antibody is negative. MEDICATIONS: Albuterol every 4 hours, Brovana, Pulmicort, dobutamine, Lasix 20 mg IV once will be given once dobutamine started. Hydrocortisone 50 mg IV q. 6 , meropenem, Versed p.r.n., norepinephrine currently at 2 mcg per minute, Zofran p.r.n., Protonix daily, vancomycin 1 q. 12. Chest x-ray: Bilateral vascular congestion. The patient is very positive and was positive 2.7 L over the last 24 hours; however, cumulatively, she is much more positive. ASSESSMENT AND PLAN: This is a 51-year-old lady with viscus perforation complicated by peritonitis, septic shock and multiorgan system failure including acute kidney injury, transaminitis, septic cardiomyopathy, septic encephalopathy, respiratory failure, disseminated intravascular coagulation, bacteremia (Enterococcus faecalis). The patient's family refused exploratory laparotomy and the patient was managed conservatively. At present time, she showed some improvement in that her vasopressor requirement went down, ventilator support requirement went down as well. She is still on small dose of norepinephrine at 2 mcg per minute. However, we will try to improve her cardiac output with dobutamine which hopefully will translate into imprvoed hemodynamics and allow to wean off NE completely. The patient is also very much positive in terms of fluid balance and once patient is off of vasopressor support, we will attempt aggressive diuresis to improve her pulmonary status. 1. Neurologic: The patient is sedated with fentanyl 150 mcg per hour. She is still arousable and appears to be comfortable. Will start tapering down Fentanyl 2. Pulmonary: The patient has significant pulmonary edema and once patient is off of pressors, we are going to aggressively diurese her in accordance with conservative fluid management strategy. We will continue with conservative oxygen strategy. We will continue with higher PEEP/FiO2 ratio and protective lung ventilation strategy. We will continue with head of bed elevated more than 35 degrees. Once respiratory status optimized and shock resolved, we will proceed with daily weaning trials and daily sedation vacation. 3. Cardiovascular: The patient has moderate left ventricular systolic dysfunction, most likely secondary to stunned myocardium due to septic cardiomyopathy. The patient has pulmonary vascular congestion which may also be at least partially cardiogenic. At present time, we will proceed with dobutamine to optimize cardiac output/ejection fraction. Once blood pressure stabilizes (hopefully), we will proceed with diuresis and wean off vasopressor support. Then may switch to milrinone for better afterload reduction and consider b-blockers. Will hold antiplatelets as platelet count is low and unlikely primary coronary event 4. Gastrointestinal: The patient has perforated viscus which is most likely etiology for peritonitis and septic shock. However, at present time, the patient shows significant improvement in her clinical status suggesting that maybe perforated area was sealed off. Surgical team continues to follow patient. Family (reportedly as per surgical team) continued to refuse surgery and the patient is DNR. She is n.p.o. NG tube is on suction. Abdominal exam appears to be a little bit better. Abdomen is softer. Colostomy looks viable and pink. Colostomy bag has some amount of fecal matter. There are no peritoneal signs on abdominal exam. We will continue with TPN at the present time. GI prophylaxis 5. Infectious disease: The patient does not have leukocytosis. The patient had fever yesterday, but she was afebrile overnight. We will continue with meropenem and vancomycin. Infectious disease service is following her as well. Her blood culture is positive for Enterococcus faecalis. The patient also has Escherichia coli and Proteus mirabilis in the urine and she is on meropenem for it. 6. Endocrine: We will continue with maintaining blood glucose within 140-180 range according to NICE-SUGAR trial. The patient is on stress dose steroids at the present time. 7. Renal: The patient is making more urine and her creatinine is substantially improving; however, she is extremely positive in terms of fluid balance which poses substantial risk for perpetuating acute kidney injury. We will continue with optimizing her cardiac output and aggressive diuresis. We will continue to target euvolemia and euglycemia. We will try to avoid nephrotoxic medication, but not in expense of treating underlying disease. 8. Hematology: The patient has thrombocytopenia; however, her heparin-induced antibody came back negative. I will stop heparin subQ and continue with mechanical deep venous thrombosis prophylaxis. I think at this point her thrombocytopenia relates to severe sepsis and subsequent bone marrow suppression. ccm time 40 min Van Lopez MD cc: [id number] TT: 02/17/2017 08:45:35 Confirmation # [id number] Dictation # [id number] MTDD
--- NOTE | 2017-02-17 09:05 | CP.PCM.PN ---
<Jada Cohen - Last Filed: 02/17/17 11:08> Subjective - Date & Time of Evaluation Date of Evaluation: 02/17/17 Time of Evaluation: 09:02 - Subjective Subjective: Progress note for GI Patient is seen and examined at bedside. Patient is currently only on 1 pressor for hemodynamic support and on fentanyl for sedation. [facility]. Per nurse, no acute events overnight. ROS are unobtainable as patient is intubated. Objective - Vital Signs/Intake and Output Vital Signs (last 24 hours): Temp Pulse Resp BP Pulse Ox 99.2 F 70 22 94/44 L 98 02/17/17 04:00 02/17/17 07:44 02/17/17 07:01 02/17/17 08:15 02/17/17 07:01 Intake and Output: 02/17/17 02/17/17 06:59 18:59 Intake Total 630 30 Output Total 500 Balance 130 30 - Medications Medications: Current Medications Acetylcysteine (Acetylcysteine 20%) 4 ml IH [id number] [facility] Last Admin: 02/17/17 03:19 Dose: 4 ml Albuterol Sulfate (Albuterol 0.083% Inhal Amarilys (2.5 Mg/3 Ml) Ud) 2.5 mg IH [id number] [facility] Last Admin: 02/17/17 06:48 Dose: 2.5 mg Arformoterol Tartrate (Brovana) 15 mcg IH [id number] [facility] Last Admin: 02/17/17 06:47 Dose: 15 mcg Budesonide (Pulmicort Respules) 0.5 mg IH [id number] [facility] Last Admin: 02/17/17 06:48 Dose: 0.5 mg Clonazepam (Klonopin) 1 mg PO BID [facility] PRN Reason: Protocol Last Admin: 02/14/17 10:00 Dose: Not Given Gabapentin (Neurontin) 800 mg PO QID [facility] Last Admin: 02/14/17 13:29 Dose: Not Given Hydrocortisone Sodium Succinate (Solu-Cortef) 50 mg IVP Q6H [facility] Last Admin: 02/17/17 08:15 Dose: 50 mg NOREPINEPHRINE BIT/0.9 % NACL (Levophed 4 Mg/ 250 Ml Ns Premixed) 4 mg in 250 mls @ 15 mls/hr IV .[id number] PRN; Protocol; 4 MCG/MIN PRN Reason: TITRATE PER MD ORDER Last Titration: 02/17/17 07:30 Dose: 2 mcg/min, 7.5 mls/hr Fentanyl Citrate (Fentanyl Citrate/Sodium Chloride 1 Mg/100 Ml) 1,000 mcg in 100 mls @ 7.5 mls/hr IV .[id number] PRN; Protocol; 75 MCG/HR PRN Reason: TITRATE PER MD ORDER Last Admin: 02/16/17 16:00 Dose: 150 mcg/hr, 15 mls/hr Midazolam 100 mg/100ml in NS (Midazolam 100 Mg/100ml In Ns) 100 mg in 100 mls @ 7 mls/hr IV .[id number] PRN; Protocol; 7 MG/HR PRN Reason: Agitation Last Titration: 02/16/17 14:00 Dose: 0 mg/hr, 0 mls/hr Epinephrine HCl 1 mg/ Sodium (Chloride) 51 mls @ 15.3 mls/hr IV .Q3H20M PRN; Protocol; 5 MCG/MIN PRN Reason: TITRATE PER MD ORDER Last Titration: 02/15/17 11:30 Dose: 0 mcg/min, 0 mls/hr Meropenem 1g/NS 100mL IVPB (Meropenem 1g/Ns 100ml Ivpb) 1 gm in 100 mls @ 100 mls/hr IVPB Q8 [facility] PRN Reason: Protocol Last Admin: 02/17/17 05:40 Dose: 100 mls/hr Sodium Bicarbonate 100 meq/ (Dextrose/Sodium Chloride) 1,100 mls @ 80 mls/hr IV .[id number] [facility] Last Admin: 02/16/17 15:35 Dose: Not Given Vasopressin 20 units/ Dextrose 101 mls @ 9.09 mls/hr IV .Q11H7M [facility]; 0.03 U/MIN PRN Reason: Protocol Last Titration: 02/16/17 16:00 Dose: 0 u/min, 0 mls/hr Potassium Chloride (Potassium Chloride 20 Meq/100 Ml) 20 meq in 100 mls @ 50 mls/hr IVPB Q2H [facility] Stop: 02/17/17 10:59 Last Admin: 02/17/17 08:15 Dose: 50 mls/hr Vancomycin HCl 1.5 gm/ Sodium (Chloride) 250 mls @ 167 mls/hr IVPB Q12H [facility] PRN Reason: Protocol Amino Acids/Electrolytes/Dextrose (Clinimix 5/20 % "E" (1000 Ml)) 1,000 mls @ 42 mls/hr IV .[id number] [facility] Dobutamine HCl/Dextrose (Dobutamine/Dextrose 5% 500mg/250ml) 500 mg in 250 mls @ 6.328 mls/hr IV .Q24H PRN; Protocol; 2.5 MCG/KG/MIN PRN Reason: TITRATE PER PROTOCOL Midazolam HCl (Versed Inj) 2 mg IVP Q4H PRN PRN Reason: Agitation Last Admin: 02/14/17 09:40 Dose: 2 mg Ondansetron HCl (Zofran Inj) 4 mg IVP Q6 PRN PRN Reason: Nausea/Vomiting Last Admin: 02/13/17 16:26 Dose: 4 mg Pantoprazole Sodium (Protonix Inj) 40 mg IVP DAILY [facility] Last Admin: 02/16/17 10:01 Dose: 40 mg - Labs Labs: 02/17/17 06:00 02/17/17 06:00 PT 17.7 Seconds (9.9-11.8) H 02/16/17 06:08 INR 1.64 (0.93-1.08) H 02/16/17 06:08 APTT 33.6 Seconds (23.7-30.8) H 02/16/17 06:08 - Constitutional Appears: No Acute Distress - Head Exam Head Exam: ATRAUMATIC - ENT Exam ENT Exam: Mucous Membranes Moist - Respiratory Exam Respiratory Exam: absent: Accessory Muscle Use, Respiratory Distress - Cardiovascular Exam Cardiovascular Exam: REGULAR RHYTHM, +S1, +S2. absent: Gallop, Rubs, Murmur - GI/Abdominal Exam GI & Abdominal Exam: Distended, Firm, Hypoactive Bowel Sounds. 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 Patient is also found to have perforation in bowel as seen on CT of abd/pelvis. Patient also had acute blood loss anemia. Today hgb is stable. NG tube output is bilious in color and about 400 cc. Septic shock with end organ dysfunction likely 2/2 UTI vs. bacteremia - Continue management per ICU and primary care team - Currently on pressor for hemodynamic stability. - White count and lactic acid improved - Kidney and liver function is improving. Bowel perforation - Surgery team is consulted. Surgical attending spoke with patient's mom who does not want any surgical intervention at this time Acute blood loss anemia - Hgb and hct are stable today. Will continue to monitor Thrombocytopenia - HIT antibody is negative. Low platelet count may be 2/2 sepsis - Coagulation profile is improving - Continue to monitor Mucinous adenocarcinoma of colon - CT of chest/abd pelvis showed diffuse LAD Case discussed with attending, Dr. Schneider. <Migue Schneider - Last Filed: 02/17/17 11:39> Objective - Vital Signs/Intake and Output Vital Signs (last 24 hours): Temp Pulse Resp BP Pulse Ox 99.2 F 72 22 100/70 98 02/17/17 04:00 02/17/17 08:30 02/17/17 07:01 02/17/17 08:30 02/17/17 07:01 Intake and Output: 02/17/17 02/17/17 06:59 18:59 Intake Total 630 41 Output Total 500 Balance 130 41 - Medications Medications: Current Medications Acetylcysteine (Acetylcysteine 20%) 4 ml IH [id number] [facility] Last Admin: 02/17/17 03:19 Dose: 4 ml Albuterol Sulfate (Albuterol 0.083% Inhal Amarilys (2.5 Mg/3 Ml) Ud) 2.5 mg IH [id number] [facility] Last Admin: 02/17/17 06:48 Dose: 2.5 mg Arformoterol Tartrate (Brovana) 15 mcg IH [id number] [facility] Last Admin: 02/17/17 06:47 Dose: 15 mcg Budesonide (Pulmicort Respules) 0.5 mg IH [id number] [facility] Last Admin: 02/17/17 06:48 Dose: 0.5 mg Clonazepam (Klonopin) 1 mg PO BID [facility] PRN Reason: Protocol Last Admin: 02/14/17 10:00 Dose: Not Given Gabapentin (Neurontin) 800 mg PO QID [facility] Last Admin: 02/14/17 13:29 Dose: Not Given Hydrocortisone Sodium Succinate (Solu-Cortef) 50 mg IVP Q6H [facility] Last Admin: 02/17/17 08:15 Dose: 50 mg NOREPINEPHRINE BIT/0.9 % NACL (Levophed 4 Mg/ 250 Ml Ns Premixed) 4 mg in 250 mls @ 15 mls/hr IV .[id number] PRN; Protocol; 4 MCG/MIN PRN Reason: TITRATE PER MD ORDER Last Titration: 02/17/17 09:10 Dose: 0 mcg/min, 0 mls/hr Fentanyl Citrate (Fentanyl Citrate/Sodium Chloride 1 Mg/100 Ml) 1,000 mcg in 100 mls @ 7.5 mls/hr IV .[id number] PRN; Protocol; 75 MCG/HR PRN Reason: TITRATE PER MD ORDER Last Admin: 02/16/17 16:00 Dose: 150 mcg/hr, 15 mls/hr Midazolam 100 mg/100ml in NS (Midazolam 100 Mg/100ml In Ns) 100 mg in 100 mls @ 7 mls/hr IV .[id number] PRN; Protocol; 7 MG/HR PRN Reason: Agitation Last Titration: 02/16/17 14:00 Dose: 0 mg/hr, 0 mls/hr Epinephrine HCl 1 mg/ Sodium (Chloride) 51 mls @ 15.3 mls/hr IV .Q3H20M PRN; Protocol; 5 MCG/MIN PRN Reason: TITRATE PER MD ORDER Last Titration: 02/15/17 11:30 Dose: 0 mcg/min, 0 mls/hr Meropenem 1g/NS 100mL IVPB (Meropenem 1g/Ns 100ml Ivpb) 1 gm in 100 mls @ 100 mls/hr IVPB Q8 [facility] PRN Reason: Protocol Last Admin: 02/17/17 05:40 Dose: 100 mls/hr Sodium Bicarbonate 100 meq/ (Dextrose/Sodium Chloride) 1,100 mls @ 80 mls/hr IV .[id number] [facility] Last Admin: 02/16/17 15:35 Dose: Not Given Vasopressin 20 units/ Dextrose 101 mls @ 9.09 mls/hr IV .Q11H7M [facility]; 0.03 U/MIN PRN Reason: Protocol Last Titration: 02/16/17 16:00 Dose: 0 u/min, 0 mls/hr Vancomycin HCl 1.5 gm/ Sodium (Chloride) 250 mls @ 167 mls/hr IVPB Q12H [facility] PRN Reason: Protocol Last Admin: 02/17/17 09:05 Dose: 167 mls/hr Amino Acids/Electrolytes/Dextrose (Clinimix 5/20 % "E" (1000 Ml)) 1,000 mls @ 42 mls/hr IV .[id number] [facility] Dobutamine HCl/Dextrose (Dobutamine/Dextrose 5% 500mg/250ml) 500 mg in 250 mls @ 6.328 mls/hr IV .Q24H PRN; Protocol; 2.5 MCG/KG/MIN PRN Reason: TITRATE PER PROTOCOL Last Admin: 02/17/17 08:30 Dose: 5 mcg/kg/min, 12.655 mls/hr Midazolam HCl (Versed Inj) 2 mg IVP Q4H PRN PRN Reason: Agitation Last Admin: 02/14/17 09:40 Dose: 2 mg Ondansetron HCl (Zofran Inj) 4 mg IVP Q6 PRN PRN Reason: Nausea/Vomiting Last Admin: 02/13/17 16:26 Dose: 4 mg Pantoprazole Sodium (Protonix Inj) 40 mg IVP DAILY [facility] Last Admin: 02/17/17 09:20 Dose: 40 mg - Labs Labs: 02/17/17 06:00 02/17/17 06:00 PT 17.7 Seconds (9.9-11.8) H 02/16/17 06:08 INR 1.64 (0.93-1.08) H 02/16/17 06:08 APTT 33.6 Seconds (23.7-30.8) H 02/16/17 06:08 Attending/Attestation - Attestation I have personally seen and examined this patient.: Yes I have fully participated in the care of the patient.: Yes I have reviewed all pertinent clinical information, including history, physical exam and plan: Yes Notes (Text): Patient seen and examined with GI fellow/medical imaging specialist. Agree with note as documented above with the following additions/exceptions. This is a 51 yo female with PMHx significant for 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 She is s/p attempted colonoscopy/flex sig showing large friable mass of rectum with severe stenosis. Her course has been complicated by septic shock and pneumoperitoneum. She remains in ICU intubated. Pressor requirement improved today. Family reportedly declining surgical intervention. Would continue supportive care, IV antibiotics, monitor NGT output/ostomy output. Shock liver slowly improving. Continue ICU management. Overall prognosis is guarded. 02/17/17 11:39
--- NOTE | 2017-02-17 09:17 | RAD ---
HISTORY: intubated COMPARISON: 02/16/2017 FINDINGS: LUNGS: There is resolution of the left lung atelectasis seen previously. There is persistent vascular congestion PLEURA: No significant pleural effusion identified, no pneumothorax apparent. CARDIOVASCULAR: Normal. OSSEOUS STRUCTURES: No significant abnormalities. VISUALIZED UPPER ABDOMEN: Normal. OTHER FINDINGS: Central lines and tubes are unchanged IMPRESSION: Resolution of left lung atelectasis
[2017-02-17] MEDS: Fentanyl 1000mcg/100ml NS 1,000 MCG/100 ML BAG IV PRN ×2 (12:00→21:00)
--- NOTE | 2017-02-17 14:27 | CP.PCM.PN ---
<Melchor Pringle - Last Filed: 02/17/17 14:24> Subjective - Date & Time of Evaluation Date of Evaluation: 02/17/17 Time of Evaluation: 14:24 - Subjective Subjective: Patient seen and examined. No acute events overnight. Norepinephrine at 2mcg. Sedated on Fentanyl. Patient remains intubated on 60% FiO2, PEEP 10. Patient grimaces and withdraws to pain. Hemodynamic status is improving. Objective - Vital Signs/Intake and Output Vital Signs (last 24 hours): Temp Pulse Resp BP Pulse Ox 99.2 F 72 22 100/70 98 02/17/17 04:00 02/17/17 08:30 02/17/17 07:01 02/17/17 08:30 02/17/17 07:01 Intake and Output: 02/17/17 02/17/17 06:59 18:59 Intake Total 630 66 Output Total 500 Balance 130 66 - Medications Medications: Current Medications Acetylcysteine (Acetylcysteine 20%) 4 ml IH [id number] [facility] Last Admin: 02/17/17 03:19 Dose: 4 ml Albuterol Sulfate (Albuterol 0.083% Inhal Amarilys (2.5 Mg/3 Ml) Ud) 2.5 mg IH [id number] [facility] Last Admin: 02/17/17 11:30 Dose: 2.5 mg Arformoterol Tartrate (Brovana) 15 mcg IH [id number] [facility] Last Admin: 02/17/17 06:47 Dose: 15 mcg Budesonide (Pulmicort Respules) 0.5 mg IH [id number] [facility] Last Admin: 02/17/17 06:48 Dose: 0.5 mg Clonazepam (Klonopin) 1 mg PO BID [facility] PRN Reason: Protocol Last Admin: 02/14/17 10:00 Dose: Not Given Furosemide (Lasix) 40 mg IVP DAILY [facility] Gabapentin (Neurontin) 800 mg PO QID [facility] Last Admin: 02/14/17 13:29 Dose: Not Given Hydrocortisone Sodium Succinate (Solu-Cortef) 50 mg IVP Q6H [facility] Last Admin: 02/17/17 12:42 Dose: 50 mg NOREPINEPHRINE BIT/0.9 % NACL (Levophed 4 Mg/ 250 Ml Ns Premixed) 4 mg in 250 mls @ 15 mls/hr IV .[id number] PRN; Protocol; 4 MCG/MIN PRN Reason: TITRATE PER MD ORDER Last Titration: 02/17/17 09:10 Dose: 0 mcg/min, 0 mls/hr Fentanyl Citrate (Fentanyl Citrate/Sodium Chloride 1 Mg/100 Ml) 1,000 mcg in 100 mls @ 7.5 mls/hr IV .[id number] PRN; Protocol; 75 MCG/HR PRN Reason: TITRATE PER MD ORDER Last Admin: 02/16/17 16:00 Dose: 150 mcg/hr, 15 mls/hr Midazolam 100 mg/100ml in NS (Midazolam 100 Mg/100ml In Ns) 100 mg in 100 mls @ 7 mls/hr IV .[id number] PRN; Protocol; 7 MG/HR PRN Reason: Agitation Last Titration: 02/16/17 14:00 Dose: 0 mg/hr, 0 mls/hr Epinephrine HCl 1 mg/ Sodium (Chloride) 51 mls @ 15.3 mls/hr IV .Q3H20M PRN; Protocol; 5 MCG/MIN PRN Reason: TITRATE PER MD ORDER Last Titration: 02/15/17 11:30 Dose: 0 mcg/min, 0 mls/hr Meropenem 1g/NS 100mL IVPB (Meropenem 1g/Ns 100ml Ivpb) 1 gm in 100 mls @ 100 mls/hr IVPB Q8 [facility] PRN Reason: Protocol Last Admin: 02/17/17 05:40 Dose: 100 mls/hr Sodium Bicarbonate 100 meq/ (Dextrose/Sodium Chloride) 1,100 mls @ 80 mls/hr IV .[id number] [facility] Last Admin: 02/16/17 15:35 Dose: Not Given Vasopressin 20 units/ Dextrose 101 mls @ 9.09 mls/hr IV .Q11H7M [facility]; 0.03 U/MIN PRN Reason: Protocol Last Titration: 02/16/17 16:00 Dose: 0 u/min, 0 mls/hr Vancomycin HCl 1.5 gm/ Sodium (Chloride) 250 mls @ 167 mls/hr IVPB Q12H [facility] PRN Reason: Protocol Last Admin: 02/17/17 09:05 Dose: 167 mls/hr Amino Acids/Electrolytes/Dextrose (Clinimix 5/20 % "E" (1000 Ml)) 1,000 mls @ 42 mls/hr IV .[id number] [facility] Dobutamine HCl/Dextrose (Dobutamine/Dextrose 5% 500mg/250ml) 500 mg in 250 mls @ 6.328 mls/hr IV .Q24H PRN; Protocol; 2.5 MCG/KG/MIN PRN Reason: TITRATE PER PROTOCOL Last Titration: 02/17/17 10:45 Dose: 2.5 mcg/kg/min, 6.328 mls/hr Midazolam HCl (Versed Inj) 2 mg IVP Q4H PRN PRN Reason: Agitation Last Admin: 02/14/17 09:40 Dose: 2 mg Ondansetron HCl (Zofran Inj) 4 mg IVP Q6 PRN PRN Reason: Nausea/Vomiting Last Admin: 02/13/17 16:26 Dose: 4 mg Pantoprazole Sodium (Protonix Inj) 40 mg IVP DAILY [facility] Last Admin: 02/17/17 09:20 Dose: 40 mg - Labs Labs: 02/17/17 06:00 02/17/17 06:00 PT 17.7 Seconds (9.9-11.8) H 02/16/17 06:08 INR 1.64 (0.93-1.08) H 02/16/17 06:08 APTT 33.6 Seconds (23.7-30.8) H 02/16/17 06:08 - Constitutional Appears: Non-toxic, No Acute Distress - Head Exam Head Exam: ATRAUMATIC, NORMOCEPHALIC - Eye Exam Eye Exam: EOMI, PERRL - ENT Exam ENT Exam: Mucous Membranes Moist - Neck Exam Neck Exam: absent: Lymphadenopathy Additional comments: ET tube in place. - Respiratory Exam Respiratory Exam: Clear to Ausculation Bilateral. absent: Rales, Rhonchi, Wheezes - Cardiovascular Exam Cardiovascular Exam: Tachycardia, +S1, +S2. absent: Irregular Rhythm - GI/Abdominal Exam GI & Abdominal Exam: Distended, Soft, Normal Bowel Sounds. absent: Firm Additional comments: colostomy is pink and viable. stool present - Extremities Exam Extremities Exam: absent: Pedal Edema - Neurological Exam Neurological Exam: absent: Alert, Awake Additional comments: withdraws from painful stimuli. sedated. - Skin Skin Exam: Normal Color, Warm Assessment and Plan - Assessment and Plan (Free Text) Assessment: 51 year old female with past medical history of Crohns disease, asthma, bipolar disorder, polysubstance abuse and recent diagnoses of adenocarcinoma of the colon is in septic shock currently in ICU. Patient remains intubated, sedated and on low dose norepinephrine. Septic shock 2/2 abdominal perforation complicated by ESBL urosepsis - Continue pressors for hemodynamic stability - manage per CCU team - continue Meropenem - ID following - Palliative care is following and discussing end of life care with patient's family. acute kidney injury 2/2 septic shock, multi-organ dysfunction syndrome - renal function is improving - avoiding nephrotoxic drugs when possible - maintaining MAP >65 transaminitis 2/2 shock liver in setting of septic shock - liver enzymes trending down - continue to maintain MAP >65 - monitor liver enzymes daily thrombocytopenia 2/2 sepsis, bone marrow suppression - transfuse per ICU team - daily CBC - SCD's - SHARON panel negative bacteremia - E. faecalis in blood culture - continue meropenem, vanc per ID UTI - Proteus mirabilis, ESBL in urine - continue abx as above Adenocarcinoma of colon: - heme/onc following - Ct of chest shows interstitial infiltrates with extensive bibasilar consolidations. Extensive B/L and medistinal LAD. Prophylaxis: Protonix. SCDs. <Mari Kincaid B - Last Filed: 02/17/17 15:33> Objective - Vital Signs/Intake and Output Vital Signs (last 24 hours): Temp Pulse Resp BP Pulse Ox 99.2 F 72 22 101/67 98 02/17/17 04:00 02/17/17 08:30 02/17/17 07:01 02/17/17 14:41 02/17/17 07:01 Intake and Output: 02/17/17 02/17/17 06:59 18:59 Intake Total 630 66 Output Total 500 Balance 130 66 - Medications Medications: Current Medications Acetylcysteine (Acetylcysteine 20%) 4 ml IH [id number] [facility] Last Admin: 02/17/17 03:19 Dose: 4 ml Albuterol Sulfate (Albuterol 0.083% Inhal Amarilys (2.5 Mg/3 Ml) Ud) 2.5 mg IH [id number] [facility] Last Admin: 02/17/17 11:30 Dose: 2.5 mg Arformoterol Tartrate (Brovana) 15 mcg IH [id number] [facility] Last Admin: 02/17/17 06:47 Dose: 15 mcg Budesonide (Pulmicort Respules) 0.5 mg IH [id number] [facility] Last Admin: 02/17/17 06:48 Dose: 0.5 mg Clonazepam (Klonopin) 1 mg PO BID [facility] PRN Reason: Protocol Last Admin: 02/14/17 10:00 Dose: Not Given Furosemide (Lasix) 40 mg IVP DAILY [facility] Last Admin: 02/17/17 14:41 Dose: 40 mg Gabapentin (Neurontin) 800 mg PO QID [facility] Last Admin: 02/14/17 13:29 Dose: Not Given Hydrocortisone Sodium Succinate (Solu-Cortef) 50 mg IVP Q6H [facility] Last Admin: 02/17/17 12:42 Dose: 50 mg NOREPINEPHRINE BIT/0.9 % NACL (Levophed 4 Mg/ 250 Ml Ns Premixed) 4 mg in 250 mls @ 15 mls/hr IV .[id number] PRN; Protocol; 4 MCG/MIN PRN Reason: TITRATE PER MD ORDER Last Titration: 02/17/17 09:10 Dose: 0 mcg/min, 0 mls/hr Fentanyl Citrate (Fentanyl Citrate/Sodium Chloride 1 Mg/100 Ml) 1,000 mcg in 100 mls @ 7.5 mls/hr IV .[id number] PRN; Protocol; 75 MCG/HR PRN Reason: TITRATE PER MD ORDER Last Admin: 02/16/17 16:00 Dose: 150 mcg/hr, 15 mls/hr Midazolam 100 mg/100ml in NS (Midazolam 100 Mg/100ml In Ns) 100 mg in 100 mls @ 7 mls/hr IV .[id number] PRN; Protocol; 7 MG/HR PRN Reason: Agitation Last Titration: 02/16/17 14:00 Dose: 0 mg/hr, 0 mls/hr Epinephrine HCl 1 mg/ Sodium (Chloride) 51 mls @ 15.3 mls/hr IV .Q3H20M PRN; Protocol; 5 MCG/MIN PRN Reason: TITRATE PER MD ORDER Last Titration: 02/15/17 11:30 Dose: 0 mcg/min, 0 mls/hr Meropenem 1g/NS 100mL IVPB (Meropenem 1g/Ns 100ml Ivpb) 1 gm in 100 mls @ 100 mls/hr IVPB Q8 [facility] PRN Reason: Protocol Last Admin: 02/17/17 14:41 Dose: 100 mls/hr Sodium Bicarbonate 100 meq/ (Dextrose/Sodium Chloride) 1,100 mls @ 80 mls/hr IV .[id number] [facility] Last Admin: 02/16/17 15:35 Dose: Not Given Vasopressin 20 units/ Dextrose 101 mls @ 9.09 mls/hr IV .Q11H7M [facility]; 0.03 U/MIN PRN Reason: Protocol Last Titration: 02/16/17 16:00 Dose: 0 u/min, 0 mls/hr Vancomycin HCl 1.5 gm/ Sodium (Chloride) 250 mls @ 167 mls/hr IVPB Q12H [facility] PRN Reason: Protocol Last Admin: 02/17/17 09:05 Dose: 167 mls/hr Amino Acids/Electrolytes/Dextrose (Clinimix 5/20 % "E" (1000 Ml)) 1,000 mls @ 42 mls/hr IV .[id number] [facility] Dobutamine HCl/Dextrose (Dobutamine/Dextrose 5% 500mg/250ml) 500 mg in 250 mls @ 6.328 mls/hr IV .Q24H PRN; Protocol; 2.5 MCG/KG/MIN PRN Reason: TITRATE PER PROTOCOL Last Titration: 02/17/17 10:45 Dose: 2.5 mcg/kg/min, 6.328 mls/hr Midazolam HCl (Versed Inj) 2 mg IVP Q4H PRN PRN Reason: Agitation Last Admin: 02/14/17 09:40 Dose: 2 mg Ondansetron HCl (Zofran Inj) 4 mg IVP Q6 PRN PRN Reason: Nausea/Vomiting Last Admin: 02/13/17 16:26 Dose: 4 mg Pantoprazole Sodium (Protonix Inj) 40 mg IVP DAILY [facility] Last Admin: 02/17/17 09:20 Dose: 40 mg - Labs Labs: 02/17/17 06:00 02/17/17 06:00 PT 17.7 Seconds (9.9-11.8) H 02/16/17 06:08 INR 1.64 (0.93-1.08) H 02/16/17 06:08 APTT 33.6 Seconds (23.7-30.8) H 02/16/17 06:08 Attending/Attestation - Attestation I have personally seen and examined this patient.: Yes I have fully participated in the care of the patient.: Yes I have reviewed all pertinent clinical information, including history, physical exam and plan: Yes Notes (Text): I have seen and examined the patient at bedside. Agree with the above note with the following additions/ exceptions: Briefly this is 51 year old female with history of Crohn's disease, colostomy, asthma, bipolar disorder, polysubstance abuse, recent diagnoses of adenocarcinoma of the colon , psoriasis, anxiety, depression who presented with generalized weakness and leg pain. Colonoscopy revealed large bulky friable mass with severe stenosis however no biopsy was performed. Her stay was complicated by septic shock and pneumoperitoneum due to abdominal perforation and was found to have metabolic acidosis, elevated troponin, transaminitis due to shock liver, DIC, anemia, thrombocytopenia, acute kidney injury, EFecalis bacteremia, E coli/ proteus UTI and ventilator dependent respiratory failure. Patient is DNR. She also has been requiring pressors however she is only on one presser today and FIO2 decreased to 60% which is an improvement. CT chest showed right sided infiltrates consistent with ARDS/ mucous plug. Discussed with network/telecom engineer. Continue mucomyst, chest PT and nebs. Continue meropenem. Patient is currently sedated with versed. Palliative care consult pending. Abdomen is softly distended and family preferred non operative management for presumed bowel perforation. Continue protonix. Continue OGT suction. Overall prognosis is guarded. Dr Mari Kincaid
[2017-02-17] MEDS ORDERED: Vancomycin 1.5 GM in Sodium Chloride 0.9% 500 ML IVPB SCH (16:33)
--- NOTE | 2017-02-17 18:58 | PN ---
DATE: 02/17/2017 SUBJECTIVE: The patient is currently seen in the ICU. She is sedated on a ventilator. Her hemodyna mics have stabilized in the last 24 hours. She is being weaned off pressors. She remains on IV anti biotic therapy for her septicemia and urinary tract infection. Her urine output has improved. She w as given IV Lasix earlier today. MEDICATIONS: List reviewed. The patient is currently on albuterol, Brovana, Clinamax, Dobutrex. Sh e is off epinephrine. She is on fentanyl, IV Lasix. She is off Levophed. She is on meropenem, mida zolam, Protonix, Pulmicort, Solu-Cortef, vancomycin. She is off vasopressin. She is on Zofran p.r.n . LABORATORY DATA: CBC: White blood cell count 8.3, hemoglobin 8.5, platelet count is 37,000. Coags: PT is 17.7, INR 1.64, PTT 33.6. Blood gas today, pH 7.42, pO2 of 134 with a pCO2 of 35. Chemistri es: Sodium 142, K 3.1, chloride 109 with a CO2 of 27, BUN 34 with a creatinine of 1.1. Baseline BUN is less than 20. Creatinine is down from 2.4 to 1.1 with a baseline creatinine of less than 1. Glu cose is 106, calcium 7.7 with an albumin of 2.6 corrects to normal. Phosphorus 5.0, magnesium 1.8. Mild elevation of her liver enzymes. Bilirubin is 1.9. Microbiology: Urine is positive for E. coli and Proteus mirabilis. Blood cultures are positive for Enterococcus faecalis. OBJECTIVE: INTAKE AND OUTPUT: Intake 4366, output 1600. VITAL SIGNS: Blood pressure 101/67, temperature 97.4, pulse 78, respiratory rate is 22. FiO2 is pre sently at 60%. HEENT: Eyes are closed. The patient is intubated. NECK: No neck vein distention. CHEST: Bilateral rhonchi. No rales, no wheezing. CARDIOVASCULAR: Shows an S1, S2 which are normal. No murmurs, rubs, or gallops. ABDOMEN: Minimal distention. Soft. Bowel sounds are normal. EXTREMITIES: Show trace to 1+ pedal edema. Diminished lower extremity pulses bilaterally. IMAGING: Chest x-ray done today shows resolution of her left lung atelectasis with persistent vascul ar congestion. ASSESSMENT: 1. Mild prerenal azotemia in the setting of sepsis, hypotension, urinary tract infection and septice demarco. 2. History of Crohn's disease, history of adenocarcinoma of the colon, history of intraabdominal abs cess, status post laparotomy in 11/2016 with hemicolectomy and a left-sided colostomy. 3. Status post gastrointestinal bleed with severe anemia. 4. Anemia secondary to sepsis and septicemia. 5. Right-sided hydronephrosis, possibly secondary to obstruction, secondary to large retroperitoneal and bilateral inguinal lymphadenopathy. PLAN: 1. Continue to wean patient off pressors. 2. Continue IV antibiotic therapy. 3. Agree with potassium riders given earlier today for her hypokalemia. 4. Continue hyperalimentation as ordered by the ICU staff. 5. Attempt to balance intake and output over the next 24-48 hours. 6. Continue to use IV Lasix to help balance her IV fluids. 7. Case discussed with ICU staff in detail. 8. Transfuse patient on a p.r.n. basis as her hemoglobin has drifted down with IV fluid hydration. Greater than 35 minutes spent in the care of this critically ill patient. Arie Rodriguez MD cc: [id number] TT: 02/17/2017 18:57:41 Confirmation # [id number] Dictation # [id number] mn
--- NOTE | 2017-02-17 20:12 | CP.PCM.PN ---
Subjective - Date & Time of Evaluation Date of Evaluation: 02/17/17 Time of Evaluation: 19:00 - Subjective Subjective: Infectious Disease Follow Up: February 17, 2017 50 yo female with history of Crohn's disease admitted for groin and abdominal pain. She was recently discharged from the hospital with doxycycline and augmentin. During the hospitalization the patient short of breath, tachycardic , and tachypnic. Patient became hypotensive and required admission to the MICU. The patient required pressors and intubation and ventilation. The patient is on 4 pressors and received 4 units of PRBCs and FFPs. Very poor prognosis. The patient remains intubated. Little response to noxious stimuli. Her acidosis improved. Respiratory functions did show improvement. Hemodynamically staple. She remains intubated and ventilated and multiple pressors. Withdraws to pain. Objective - Vital Signs/Intake and Output Vital Signs (last 24 hours): Temp Pulse Resp BP Pulse Ox 97.4 F L 77 22 102/70 93 L 02/17/17 16:00 02/17/17 19:00 02/17/17 07:01 02/17/17 19:00 02/17/17 19:00 Intake and Output: 02/17/17 02/18/17 18:59 06:59 Intake Total 1388 Output Total 1890 Balance -502 - Medications Medications: Current Medications Acetylcysteine (Acetylcysteine 20%) 4 ml IH [id number] [facility] Last Admin: 02/17/17 19:48 Dose: Not Given Albuterol Sulfate (Albuterol 0.083% Inhal Amarilys (2.5 Mg/3 Ml) Ud) 2.5 mg IH [id number] [facility] Last Admin: 02/17/17 19:46 Dose: 2.5 mg Arformoterol Tartrate (Brovana) 15 mcg IH [id number] [facility] Last Admin: 02/17/17 19:47 Dose: 15 mcg Budesonide (Pulmicort Respules) 0.5 mg IH [id number] [facility] Last Admin: 02/17/17 19:47 Dose: 0.5 mg Clonazepam (Klonopin) 1 mg PO BID [facility] PRN Reason: Protocol Last Admin: 02/14/17 10:00 Dose: Not Given Furosemide (Lasix) 40 mg IVP DAILY [facility] Last Admin: 02/17/17 14:41 Dose: 40 mg Gabapentin (Neurontin) 800 mg PO QID [facility] Last Admin: 02/14/17 13:29 Dose: Not Given Hydrocortisone Sodium Succinate (Solu-Cortef) 50 mg IVP Q6H [facility] Last Admin: 02/17/17 12:42 Dose: 50 mg NOREPINEPHRINE BIT/0.9 % NACL (Levophed 4 Mg/ 250 Ml Ns Premixed) 4 mg in 250 mls @ 15 mls/hr IV .[id number] PRN; Protocol; 4 MCG/MIN PRN Reason: TITRATE PER MD ORDER Last Titration: 02/17/17 09:10 Dose: 0 mcg/min, 0 mls/hr Fentanyl Citrate (Fentanyl Citrate/Sodium Chloride 1 Mg/100 Ml) 1,000 mcg in 100 mls @ 7.5 mls/hr IV .[id number] PRN; Protocol; 75 MCG/HR PRN Reason: TITRATE PER MD ORDER Last Titration: 02/17/17 15:00 Dose: 100 mcg/hr, 10 mls/hr Midazolam 100 mg/100ml in NS (Midazolam 100 Mg/100ml In Ns) 100 mg in 100 mls @ 7 mls/hr IV .[id number] PRN; Protocol; 7 MG/HR PRN Reason: Agitation Last Titration: 02/16/17 14:00 Dose: 0 mg/hr, 0 mls/hr Epinephrine HCl 1 mg/ Sodium (Chloride) 51 mls @ 15.3 mls/hr IV .[id number] PRN; Protocol; 5 MCG/MIN PRN Reason: TITRATE PER MD ORDER Last Titration: 02/15/17 11:30 Dose: 0 mcg/min, 0 mls/hr Meropenem 1g/NS 100mL IVPB (Meropenem 1g/Ns 100ml Ivpb) 1 gm in 100 mls @ 100 mls/hr IVPB Q8 [facility] PRN Reason: Protocol Last Admin: 02/17/17 14:41 Dose: 100 mls/hr Sodium Bicarbonate 100 meq/ (Dextrose/Sodium Chloride) 1,100 mls @ 80 mls/hr IV .[id number] [facility] Last Admin: 02/16/17 15:35 Dose: Not Given Vasopressin 20 units/ Dextrose 101 mls @ 9.09 mls/hr IV .[id number] [facility]; 0.03 U/MIN PRN Reason: Protocol Last Titration: 02/16/17 16:00 Dose: 0 u/min, 0 mls/hr Amino Acids/Electrolytes/Dextrose (Clinimix 5/20 % "E" (1000 Ml)) 1,000 mls @ 42 mls/hr IV .[id number] [facility] Last Admin: 02/17/17 17:23 Dose: 42 mls/hr Dobutamine HCl/Dextrose (Dobutamine/Dextrose 5% 500mg/250ml) 500 mg in 250 mls @ 6.328 mls/hr IV .Q24H PRN; Protocol; 2.5 MCG/KG/MIN PRN Reason: TITRATE PER PROTOCOL Last Titration: 02/17/17 10:45 Dose: 2.5 mcg/kg/min, 6.328 mls/hr Vancomycin HCl 1.5 gm/ Sodium (Chloride) 500 mls @ 167 mls/hr IVPB Q12 [facility] PRN Reason: Protocol Midazolam HCl (Versed Inj) 2 mg IVP Q4H PRN PRN Reason: Agitation Last Admin: 02/14/17 09:40 Dose: 2 mg Ondansetron HCl (Zofran Inj) 4 mg IVP Q6 PRN PRN Reason: Nausea/Vomiting Last Admin: 02/13/17 16:26 Dose: 4 mg Pantoprazole Sodium (Protonix Inj) 40 mg IVP DAILY [facility] Last Admin: 02/17/17 09:20 Dose: 40 mg - Labs Labs: 02/17/17 06:00 02/17/17 06:00 PT 17.7 Seconds (9.9-11.8) H 02/16/17 06:08 INR 1.64 (0.93-1.08) H 02/16/17 06:08 APTT 33.6 Seconds (23.7-30.8) H 02/16/17 06:08 - Constitutional Appears: Non-toxic, No Acute Distress, Chronically Ill - Head Exam Head Exam: ATRAUMATIC, NORMOCEPHALIC - Eye Exam Eye Exam: EOMI, PERRL Pupil Exam: NORMAL ACCOMODATION, PERRL - ENT Exam ENT Exam: Mucous Membranes Moist, Normal External Ear Exam, TM's Normal Bilaterally - Neck Exam Neck Exam: Full ROM, Normal Inspection - Respiratory Exam Respiratory Exam: Clear to Ausculation Bilateral, NORMAL BREATHING PATTERN. absent: Rales, Rhonchi, Wheezes - Cardiovascular Exam Cardiovascular Exam: Tachycardia, RRR, +S1, +S2 - GI/Abdominal Exam GI & Abdominal Exam: Soft, Normal Bowel Sounds. absent: Distended, Tenderness - Extremities Exam Extremities Exam: Full ROM, Normal Inspection - Neurological Exam Additional comments: AAO x 0, intubated and ventilated. withdraws to pain. - Psychiatric Exam Additional comments: withdraws to pain/noxious stimuli. Assessment and Plan - Assessment and Plan (Free Text) Assessment: 51 yo female currently intubated and ventilated and poorly responsive with hypotension requiring pressor support with 4 medications. Currently on Meropenem and Vancomycin. Extremely poor prognosis. Supportive care. There were concerns for abdominal perforation and findings of extensive abdominal ascites and pneumoperitoneum. Severe anemia requiring PRBC transfusions. Meropenem is a reasonable choice for generalized antibiotic coverage. Continue on meropenem for now. Supportive care. Dismal prognosis. Lactic acidosis improved but respiratory function has remained about the same or slightly better. Patient hemodynamically stable. Thank you for allowing me to participate in the care of the patient, we will follow with you.
[2017-02-17] MEDS: Vancomycin 1.5 GM in Sodium Chloride 0.9% 500 ML IVPB SCH (22:50)
[2017-02-18] MEDS: Albuterol 0.083% Inhal Sol (2.5 mg/3 mL) UD IH SCH ×6 (04:28→23:50)
[2017-02-18] MEDS: Meropenem 1g/NS 100mL IVPB 1 GM/100 ML PIGGYBACK IVPB SCH ×3 (05:03→22:37)
[2017-02-18 06:09] LABS: ARTERIAL BLOOD GAS HCO3 16.5 mmol/L (21-28); ARTERIAL BLOOD GAS PH 7.32 (7.35-7.45)
[2017-02-18 06:12] LABS: BASO # 0.06 K/mm3 (0.0-2.0); BASO % 0.6 % (0.0-3.0); EOS # 0.2 (0.0-0.7); EOS % 2.2 % (1.5-5.0); GRAN % 87.1 % (50.0-68.0); LYMPH % 9.8 % (22.0-35.0); MEAN CELL VOLUME 86.5 fL (80.0-105.0); MEAN CORPUSCULAR HEMOGLOBIN 28.8 pg (25.0-35.0); MEAN CORPUSCULAR HGB CONC 33.3 g/dl (31.0-37.0); MONO % 0.3 % (1.0-6.0); RED CELL DISTRIBUTION WIDTH 16.8 % (11.5-14.5); WHITE BLOOD COUNT 9.8 10^3/ul (4.5-11.0)
[2017-02-18 06:16] LABS: HEMATOCRIT 22.5 % (36.0-48.0); PLATELET COUNT 28 10^3/uL (120.0-450.0)
[2017-02-18 06:17] LABS: ADD MANUAL DIFF? NO
[2017-02-18 06:33] LABS: ALB/GLOB RATIO 0.8 (1.1-1.8); ALKALINE PHOSPHATASE 121 U/L (38-133); ALT/SGPT 294 U/L (7-56); AST/SGOT 229 U/L (15-39); BILIRUBIN,TOTAL 1.7 mg/dL (0.2-1.3); BLOOD UREA NITROGEN 35 mg/dL (7-21); CALCIUM 8.2 mg/dL (8.4-10.5); CARBON DIOXIDE 28 mmol/L (21-33); CHLORIDE 110 mmol/L (95-110); GFR AFRICAN-AMERICAN > 60; GLUCOSE,RANDOM 152 mg/dL (70-110); MAGNESIUM 1.6 mg/dL (1.7-2.2); PHOSPHOROUS 3.2 mg/dL (2.5-4.5); SODIUM 145 mmol/L (132-148); TOTAL PROTEIN 5.7 g/dL (5.8-8.3)
[2017-02-18 06:53] LABS: POTASSIUM 2.8 mmol/L (3.6-5.0)
[2017-02-18] MEDS: Fentanyl 1000mcg/100ml NS 1,000 MCG/100 ML BAG IV PRN ×2 (07:00→19:00)
[2017-02-18] MEDS ORDERED: Magnesium Sulfate 2 GM in Sodium Chloride 0.9% 100 ML IVPB ONE (07:01)
[2017-02-18] MEDS: Budesonide 0.5 mg/2 ml Inhal Susp UD IH SCH ×2 (07:02→20:40)
[2017-02-18] MEDS: Arformoterol 15 mcg/2 ml Inh Sol IH SCH ×2 (07:02→20:40)
--- NOTE | 2017-02-18 07:47 | CP.CCUPN ---
<Pacheco Alcala - Last Filed: 02/18/17 12:35> CCU Subjective - Physician Review Events Since Last Encounter (Free Text): Patient grew agitated towards the end of the awake overnight counselor and sedation was increased from 100 fentanyl to 150. 02/18/17 07:44 Subjective (Free Text): Patient is currently intubated and sedated, she withdraws to pain 02/18/17 07:45 CCU Objective - Vital Signs / Intake & Output Vital Signs (Last 4 hours): Vital Signs Temp Pulse Resp BP Pulse Ox 02/18/17 07:01 24 96 02/18/17 06:30 100 H 116/89 95 02/18/17 06:00 109 H 146/61 96 02/18/17 05:30 75 116/70 95 02/18/17 05:00 76 117/76 95 02/18/17 04:30 73 118/73 96 02/18/17 04:00 98 F 75 22 119/75 94 L Intake and Output (Last 8hrs): Intake & Output 02/17/17 02/18/17 02/18/17 22:59 06:59 14:59 Intake Total 1377 1220 100 Output Total 1890 750 Balance -513 470 100 Intake: IV 785 1220 100 Right Internal Jugular 435 1220 Right Wrist 250 TPN/PPN 42 Blood Product 550 Output: Gastric Amount 90 50 Left 0 50 Stomach 90 Urine 1800 700 Urethral (Uribe) 1800 700 Other: Voiding Method Indwelling Catheter # Bowel Movements 0 - Physical Exam Physical Exam Limitations: Positive for: Other (Sedated) Head: Positive for: Atraumatic, Normocephalic Pupils: Positive for: Pinpoint Extroacular Muscles: Positive for: EOMI Conjunctiva: Positive for: Normal Mouth: Positive for: Moist Mucous Membranes Neck: Positive for: Normal Range of Motion Respiratory/Chest: Positive for: Other (Patient is currently ventilated, breathsounds equal bilaterally). Negative for: Respiratory Distress, Accessory Muscle Use Cardiovascular: Positive for: Regular Rate and Rhythm, Normal S1, S2. Negative for: Murmurs Abdomen: Positive for: Normal Bowel Sounds, Other (ostomy bag in place with no surrounding erythema or signs of infection). Negative for: Tenderness, Distention, Peritoneal Signs, Rebound, Guarding Genitourinary/Pelvic Exam: Positive for: Other (Uribe catheter in place without elmira pus) Back: Positive for: Normal Inspection Upper Extremity: Positive for: Normal Inspection, NORMAL PULSES, Swelling. Negative for: Cyanosis, Edema Lower Extremity: Positive for: Edema, NORMAL PULSES, Swelling Neurological: Positive for: Other (GCS 7) Skin: Positive for: Warm, Dry, Rashes, Other (Petechia noted on extremities) Lymphatic: Positive for: Inguinal Adenopathy (bilaterally) Psychiatric: Positive for: Other (Unable to asses due to intubation and sedation ) - Medications Active Medications: Active Medications Generic Name Dose Route Start Last Admin Trade Name Freq PRN Reason Stop Dose Admin Acetylcysteine 4 ml 02/16/17 12:00 02/17/17 19:48 Acetylcysteine 20% IH Not Given [id number] RAOUL Albuterol Sulfate 2.5 mg 02/16/17 11:30 02/18/17 07:02 Albuterol 0.083% Inhal Amarilys (2.5 Mg/3 Ml) Ud IH 2.5 mg [id number] RAOUL Administration Arformoterol Tartrate 15 mcg 02/11/17 20:00 02/18/17 07:02 Brovana IH 15 mcg [id number] RAOUL Administration Budesonide 0.5 mg 02/11/17 20:00 02/18/17 07:02 Pulmicort Respules IH 0.5 mg [id number] RAOUL Administration Clonazepam 1 mg 02/11/17 18:00 02/14/17 10:00 Klonopin PO Not Given BID RAOUL Protocol Furosemide 40 mg 02/17/17 14:00 02/17/17 14:41 Lasix IVP 40 mg DAILY RAOUL Administration Gabapentin 800 mg 02/11/17 14:00 02/14/17 13:29 Neurontin PO Not Given QID RAOUL Hydrocortisone Sodium Succinate 50 mg 02/14/17 07:30 02/18/17 01:30 Solu-Cortef IVP 50 mg Q6H RAOUL Administration NOREPINEPHRINE BIT/0.9 % NACL 4 mg in 250 mls @ 15 mls/hr 02/14/17 04:28 02/28 09:10 Levophed 4 Mg/ 250 Ml Ns Premixed IV 0 mcg/min .[id number] PRN 0 mls/hr TITRATE PER MD ORDER Titration Protocol 4 MCG/MIN Fentanyl Citrate 1,000 mcg in 100 mls @ 7.5 mls/hr 02/14/17 08:03 02/18/17 07 :00 Fentanyl Citrate/Sodium Chloride 1 Mg/100 Ml IV 100 mcg/hr .[id number] PRN 10 mls/hr TITRATE PER MD ORDER Administration Protocol 75 MCG/HR Midazolam 100 mg/100ml in NS 100 mg in 100 mls @ 7 mls/hr 02/14/17 11:42 01/28 14:00 Midazolam 100 Mg/100ml In Ns IV 0 mg/hr .[id number] PRN 0 mls/hr Agitation Titration Protocol 7 MG/HR Epinephrine HCl 1 mg/ Sodium 51 mls @ 15.3 mls/hr 02/14/17 13:12 02/15/17 11: 30 Chloride IV 0 mcg/min .[id number] PRN 0 mls/hr TITRATE PER MD ORDER Titration Protocol 5 MCG/MIN Meropenem 1g/NS 100mL IVPB 1 gm in 100 mls @ 100 mls/hr 02/15/17 17:00 05:03 Meropenem 1g/Ns 100ml Ivpb IVPB 100 mls/hr Q8 RAOUL Administration Protocol Sodium Bicarbonate 100 meq/ 1,100 mls @ 80 mls/hr 02/16/17 14:38 02/16/17 15: 35 Dextrose/Sodium Chloride IV Not Given .[id number] RAOUL Vasopressin 20 units/ Dextrose 101 mls @ 9.09 mls/hr 02/16/17 15:41 02/16/17 16:00 IV 0 u/min .[id number] RAOUL 0 mls/hr Protocol Titration 0.03 U/MIN Amino Acids/Electrolytes/Dextrose 1,000 mls @ 42 mls/hr 02/17/17 18:00 17:23 Clinimix 5/20 % "E" (1000 Ml) IV 42 mls/hr .[id number] RAOUL Administration Dobutamine HCl/Dextrose 500 mg in 250 mls @ 6.328 mls/hr 02/17/17 08:56 02/17 10:45 Dobutamine/Dextrose 5% 500mg/250ml IV 2.5 mcg/kg/min .Q24H PRN 6.328 mls/hr TITRATE PER PROTOCOL Titration Protocol 2.5 MCG/KG/MIN Vancomycin HCl 1.5 gm/ Sodium 500 mls @ 167 mls/hr 02/17/17 16:56 02/17/17 22 :50 Chloride IVPB 167 mls/hr Q12 RAOUL Administration Protocol Magnesium Sulfate 2 gm/ Sodium 104 mls @ 102 mls/hr 02/18/17 07:01 Chloride IVPB 02/18/17 08:02 ONCE ONE Potassium Chloride 20 meq in 100 mls @ 50 mls/hr 02/18/17 07:15 02/18/17 07: 28 Potassium Chloride 20 Meq/100 Ml IVPB 02/18/17 11:14 50 mls/hr Q2H RAOUL Administration Midazolam HCl 2 mg 02/14/17 08:03 02/14/17 09:40 Versed Inj IVP 2 mg Q4H PRN Administration Agitation Ondansetron HCl 4 mg 02/11/17 13:30 02/13/17 16:26 Zofran Inj IVP 4 mg Q6 PRN Administration Nausea/Vomiting Pantoprazole Sodium 40 mg 02/14/17 10:00 02/17/17 09:20 Protonix Inj IVP 40 mg DAILY RAOUL Administration - Patient Studies Lab Studies: Microbiology Studies 02/14/17 03:20 S.aureus & Coag-Neg Staph PNA FISH - Final Blood Blood Culture - Final Enterococcus Faecalis Gram Stain - Final Lab Studies 02/18/17 02/18/17 02/18/17 Range/Units 06:01 05:20 05:20 WBC 9.8 (4.5-11.0) 10^3/ul RBC 2.60 L (3.5-6.1) 10^6/uL Hgb 7.5 L (12.0-16.0) gm/dL Hct 22.5 L (36.0-48.0) % MCV 86.5 (80.0-105.0) fL MCH 28.8 (25.0-35.0) pg MCHC 33.3 (31.0-37.0) g/dl RDW 16.8 H (11.5-14.5) % Plt Count 28 L* (120.0-450.0) 10^3/uL Gran % 87.1 H (50.0-68.0) % Lymph % (Auto) 9.8 L (22.0-35.0) % Bremer % (Auto) 0.3 L (1.0-6.0) % Eos % (Auto) 2.2 (1.5-5.0) % Baso % (Auto) 0.6 (0.0-3.0) % Gran # 8.50 H (1.4-6.5) Lymph # 1.0 L (1.2-3.4) Bremer # 0.0 L (0.1-0.6) Eos # 0.2 (0.0-0.7) Baso # 0.06 (0.0-2.0) K/mm3 pCO2 32 L (35-45) mm/Hg pO2 118.0 H (80-100) mm/Hg HCO3 16.5 L (21-28) mmol/L ABG pH 7.32 L (7.35-7.45) ABG Total CO2 17.5 L (22-28) mmol.L ABG O2 Saturation 98.6 H (95-98) % ABG Base Excess -8.5 L (-2.0-3.0) mmol/L ABG Potassium 2.3 L* (3.6-5.2) mmol/L Glucose 90 (65-105) mg/dl Lactate 1.4 (0.7-2.1) mmol/L FiO2 60.0 % Sodium 152.0 H 145 (132-148) mmol/L Potassium 2.8 L* (3.6-5.0) mmol/L Chloride 132.0 H 110 (95-110) mmol/L Carbon Dioxide 28 (21-33) mmol/L Anion Gap 10 (10-20) BUN 35 H (7-21) mg/dL Creatinine 0.9 (0.5-1.4) mg/dL Est GFR ( Amer) > 60 Est GFR (Non-Af Amer) > 60 POC Glucose (mg/dL) (65-110) mg/dL Random Glucose 152 H (70-110) mg/dL Calcium 8.2 L (8.4-10.5) mg/dL Phosphorus 3.2 (2.5-4.5) mg/dL Magnesium 1.6 L (1.7-2.2) mg/dL Total Bilirubin 1.7 H (0.2-1.3) mg/dL AST 229 H (15-39) U/L ALT 294 H (7-56) U/L Alkaline Phosphatase 121 (38-133) U/L Total Protein 5.7 L (5.8-8.3) g/dL Albumin 2.5 L (3.0-4.8) g/dL Globulin 3.2 gm/dL Albumin/Globulin Ratio 0.8 L (1.1-1.8) Arterial Blood Potassium 2.3 L* (3.6-5.2) mmol/L Crossmatch 02/18/17 02/17/17 02/17/17 Range/Units 02:52 17:54 12:08 WBC (4.5-11.0) 10^3/ul RBC (3.5-6.1) 10^6/uL Hgb (12.0-16.0) gm/dL Hct (36.0-48.0) % MCV (80.0-105.0) fL MCH (25.0-35.0) pg MCHC (31.0-37.0) g/dl RDW (11.5-14.5) % Plt Count (120.0-450.0) 10^3/uL Gran % (50.0-68.0) % Lymph % (Auto) (22.0-35.0) % Bremer % (Auto) (1.0-6.0) % Eos % (Auto) (1.5-5.0) % Baso % (Auto) (0.0-3.0) % Gran # (1.4-6.5) Lymph # (1.2-3.4) Bremer # (0.1-0.6) Eos # (0.0-0.7) Baso # (0.0-2.0) K/mm3 pCO2 (35-45) mm/Hg pO2 (80-100) mm/Hg HCO3 (21-28) mmol/L ABG pH (7.35-7.45) ABG Total CO2 (22-28) mmol.L ABG O2 Saturation (95-98) % ABG Base Excess (-2.0-3.0) mmol/L ABG Potassium (3.6-5.2) mmol/L Glucose (65-105) mg/dl Lactate (0.7-2.1) mmol/L FiO2 % Sodium (132-148) mmol/L Potassium (3.6-5.0) mmol/L Chloride (95-110) mmol/L Carbon Dioxide (21-33) mmol/L Anion Gap (10-20) BUN (7-21) mg/dL Creatinine (0.5-1.4) mg/dL Est GFR ( Amer) Est GFR (Non-Af Amer) POC Glucose (mg/dL) 170 H 113 H 112 H (65-110) mg/dL Random Glucose (70-110) mg/dL Calcium (8.4-10.5) mg/dL Phosphorus (2.5-4.5) mg/dL Magnesium (1.7-2.2) mg/dL Total Bilirubin (0.2-1.3) mg/dL AST (15-39) U/L ALT (7-56) U/L Alkaline Phosphatase (38-133) U/L Total Protein (5.8-8.3) g/dL Albumin (3.0-4.8) g/dL Globulin gm/dL Albumin/Globulin Ratio (1.1-1.8) Arterial Blood Potassium (3.6-5.2) mmol/L Crossmatch 02/14/17 Range/Units 11:55 WBC (4.5-11.0) 10^3/ul RBC (3.5-6.1) 10^6/uL Hgb (12.0-16.0) gm/dL Hct (36.0-48.0) % MCV (80.0-105.0) fL MCH (25.0-35.0) pg MCHC (31.0-37.0) g/dl RDW (11.5-14.5) % Plt Count (120.0-450.0) 10^3/uL Gran % (50.0-68.0) % Lymph % (Auto) (22.0-35.0) % Bremer % (Auto) (1.0-6.0) % Eos % (Auto) (1.5-5.0) % Baso % (Auto) (0.0-3.0) % Gran # (1.4-6.5) Lymph # (1.2-3.4) Bremer # (0.1-0.6) Eos # (0.0-0.7) Baso # (0.0-2.0) K/mm3 pCO2 (35-45) mm/Hg pO2 (80-100) mm/Hg HCO3 (21-28) mmol/L ABG pH (7.35-7.45) ABG Total CO2 (22-28) mmol.L ABG O2 Saturation (95-98) % ABG Base Excess (-2.0-3.0) mmol/L ABG Potassium (3.6-5.2) mmol/L Glucose (65-105) mg/dl Lactate (0.7-2.1) mmol/L FiO2 % Sodium (132-148) mmol/L Potassium (3.6-5.0) mmol/L Chloride (95-110) mmol/L Carbon Dioxide (21-33) mmol/L Anion Gap (10-20) BUN (7-21) mg/dL Creatinine (0.5-1.4) mg/dL Est GFR ( Amer) Est GFR (Non-Af Amer) POC Glucose (mg/dL) (65-110) mg/dL Random Glucose (70-110) mg/dL Calcium (8.4-10.5) mg/dL Phosphorus (2.5-4.5) mg/dL Magnesium (1.7-2.2) mg/dL Total Bilirubin (0.2-1.3) mg/dL AST (15-39) U/L ALT (7-56) U/L Alkaline Phosphatase (38-133) U/L Total Protein (5.8-8.3) g/dL Albumin (3.0-4.8) g/dL Globulin gm/dL Albumin/Globulin Ratio (1.1-1.8) Arterial Blood Potassium (3.6-5.2) mmol/L Crossmatch See Detail Laboratory Results - last 24 hr 02/14/17 02/17/17 02/17/17 11:55 12:08 17:54 WBC RBC Hgb Hct MCV MCH MCHC RDW Plt Count Gran % Lymph % (Auto) Bremer % (Auto) Eos % (Auto) Baso % (Auto) Gran # Lymph # Bremer # Eos # Baso # pCO2 pO2 HCO3 ABG pH ABG Total CO2 ABG O2 Saturation ABG Base Excess ABG Potassium Glucose Lactate FiO2 Sodium Potassium Chloride Carbon Dioxide Anion Gap BUN Creatinine Est GFR ( Amer) Est GFR (Non-Af Amer) POC Glucose (mg/dL) 112 H 113 H Random Glucose Calcium Phosphorus Magnesium Total Bilirubin AST ALT Alkaline Phosphatase Total Protein Albumin Globulin Albumin/Globulin Ratio Arterial Blood Potassium Crossmatch See Detail 02/18/17 02/18/17 02/18/17 02:52 05:20 05:20 WBC 9.8 RBC 2.60 L Hgb 7.5 L Hct 22.5 L MCV 86.5 MCH 28.8 MCHC 33.3 RDW 16.8 H Plt Count 28 L* Gran % 87.1 H Lymph % (Auto) 9.8 L Bremer % (Auto) 0.3 L Eos % (Auto) 2.2 Baso % (Auto) 0.6 Gran # 8.50 H Lymph # 1.0 L Bremer # 0.0 L Eos # 0.2 Baso # 0.06 pCO2 pO2 HCO3 ABG pH ABG Total CO2 ABG O2 Saturation ABG Base Excess ABG Potassium Glucose Lactate FiO2 Sodium 145 Potassium 2.8 L* Chloride 110 Carbon Dioxide 28 Anion Gap 10 BUN 35 H Creatinine 0.9 Est GFR ( Amer) > 60 Est GFR (Non-Af Amer) > 60 POC Glucose (mg/dL) 170 H Random Glucose 152 H Calcium 8.2 L Phosphorus 3.2 Magnesium 1.6 L Total Bilirubin 1.7 H AST 229 H ALT 294 H Alkaline Phosphatase 121 Total Protein 5.7 L Albumin 2.5 L Globulin 3.2 Albumin/Globulin Ratio 0.8 L Arterial Blood Potassium Crossmatch 02/18/17 06:01 WBC RBC Hgb Hct MCV MCH MCHC RDW Plt Count Gran % Lymph % (Auto) Bremer % (Auto) Eos % (Auto) Baso % (Auto) Gran # Lymph # Bremer # Eos # Baso # pCO2 32 L pO2 118.0 H HCO3 16.5 L ABG pH 7.32 L ABG Total CO2 17.5 L ABG O2 Saturation 98.6 H ABG Base Excess -8.5 L ABG Potassium 2.3 L* Glucose 90 Lactate 1.4 FiO2 60.0 Sodium 152.0 H Potassium Chloride 132.0 H Carbon Dioxide Anion Gap BUN Creatinine Est GFR ( Amer) Est GFR (Non-Af Amer) POC Glucose (mg/dL) Random Glucose Calcium Phosphorus Magnesium Total Bilirubin AST ALT Alkaline Phosphatase Total Protein Albumin Globulin Albumin/Globulin Ratio Arterial Blood Potassium 2.3 L* Crossmatch Fingerstick Blood Sugar Results: 170 Review of Systems - Review of Systems Systems not reviewed;Unavailable: Acuity of Condition Critical Care Progress Note - Ventilator Checklist Head of Bed 30 Degrees: Yes Daily Sedation Vacation: Yes PUD Prophalyxis: Yes DVT Prophylaxis: Yes - Vent Settings MODE:: PRVC TIDAL VOLUME:: 340 RESP RATE:: 22 FIO2:: 50 PEEP:: 10 - Extremities/Vascular Does the Patient have a Central Venous Catheter?: Yes Insertion Site: Internal Jugular Vein Does the Patient need a Central Venous Catheter?: Yes Does the Patient have a Uribe Catheter?: Yes Does the Patient need a Uribe Catheter?: Yes Catheter Insertion Criteria: Need for accurate measurement of output in critically ill patient - Prophylaxis GI Prophylaxis GI: PPI - Prophylaxis DVT Prophylaxis DVT: SCDs Assessment/Plan - Assessment and Plan (Free Text) Assessment: This is a 51F who was admitted to [facility] due to LE pain and abdominal pain, on she had a c-scope, durring the following evening she desaturated and became hypotensive was transferred to ICU with a Hgb of 8.3, CT scan significant for free air indicating a perforated viscous. Neuro: Sedated with Fentanyl, EOMI CV: Hemodynamically stable on dobutamine will continue and taper down if possible. Pulm: CXR shows increasing pulmonary infiltrates/edema, continue lasix BID chest PT, Patient is currently intubated on PRVC will ween if possible, patient has a history of asthma continue brovana, budesonide GI: Patient has a perforated viscous likely perforated duodenal ulcer will remain NPO, NGT to suction, IV merrem, and vanc : Patient is positive for ESBL and proteus, leave uribe in place, patient is on IV merrem Endo: Potassium and Magnesium low repleated will recheck K and Mg levels ID: Patient is septic due to reasons listed above patient is on merrem and vanc which offers broad coverage Heme: Patients Hgb decreased from 8.7 to 7.5, 2 units ordered per surg will recheck h/h Will Discuss with Dr. Codi Alcala PGY-1 <Codi STARR,Crow H - Last Filed: 02/18/17 14:50> CCU Objective - Vital Signs / Intake & Output Intake and Output (Last 8hrs): Intake & Output 02/17/17 02/18/17 02/18/17 22:59 06:59 14:59 Intake Total 1377 1220 100 Output Total 1890 750 Balance -513 470 100 Intake: IV 785 1220 100 Right Internal Jugular 435 1220 Right Wrist 250 TPN/PPN 42 Blood Product 550 Output: Gastric Amount 90 50 Left 0 50 Stomach 90 Urine 1800 700 Urethral (Uribe) 1800 700 Other: Voiding Method Indwelling Catheter # Bowel Movements 0 - Medications Active Medications: Active Medications Generic Name Dose Route Start Last Admin Trade Name Freq PRN Reason Stop Dose Admin Acetylcysteine 4 ml 02/16/17 12:00 02/17/17 19:48 Acetylcysteine 20% IH Not Given [id number] RAOUL Albuterol Sulfate 2.5 mg 02/16/17 11:30 02/18/17 11:28 Albuterol 0.083% Inhal Amarilys (2.5 Mg/3 Ml) Ud IH 2.5 mg [id number] RAOUL Administration Arformoterol Tartrate 15 mcg 02/11/17 20:00 02/18/17 07:02 Brovana IH 15 mcg [id number] RAOUL Administration Budesonide 0.5 mg 02/11/17 20:00 02/18/17 07:02 Pulmicort Respules IH 0.5 mg [id number] RAOUL Administration Clonazepam 1 mg 02/11/17 18:00 02/14/17 10:00 Klonopin PO Not Given BID RAOUL Protocol Furosemide 40 mg 02/17/17 14:00 02/18/17 09:27 Lasix IVP 40 mg DAILY RAOUL Administration Gabapentin 800 mg 02/11/17 14:00 02/14/17 13:29 Neurontin PO Not Given QID RAOUL Hydrocortisone Sodium Succinate 50 mg 02/14/17 07:30 02/18/17 13:26 Solu-Cortef IVP 50 mg Q6H RAOUL Administration NOREPINEPHRINE BIT/0.9 % NACL 4 mg in 250 mls @ 15 mls/hr 02/14/17 04:28 02/28 09:10 Levophed 4 Mg/ 250 Ml Ns Premixed IV 0 mcg/min .[id number] PRN 0 mls/hr TITRATE PER MD ORDER Titration Protocol 4 MCG/MIN Epinephrine HCl 1 mg/ Sodium 51 mls @ 15.3 mls/hr 02/14/17 13:12 02/15/17 11: 30 Chloride IV 0 mcg/min .Q3H20M PRN 0 mls/hr TITRATE PER MD ORDER Titration Protocol 5 MCG/MIN Meropenem 1g/NS 100mL IVPB 1 gm in 100 mls @ 100 mls/hr 02/15/17 17:00 13:28 Meropenem 1g/Ns 100ml Ivpb IVPB 100 mls/hr Q8 RAOUL Administration Protocol Sodium Bicarbonate 100 meq/ 1,100 mls @ 80 mls/hr 02/16/17 14:38 02/16/17 15: 35 Dextrose/Sodium Chloride IV Not Given .[id number] RAOUL Vasopressin 20 units/ Dextrose 101 mls @ 9.09 mls/hr 02/16/17 15:41 02/16/17 16:00 IV 0 u/min .Q11H7M RAOUL 0 mls/hr Protocol Titration 0.03 U/MIN Dobutamine HCl/Dextrose 500 mg in 250 mls @ 6.328 mls/hr 02/17/17 08:56 02/17 10:45 Dobutamine/Dextrose 5% 500mg/250ml IV 2.5 mcg/kg/min .Q24H PRN 6.328 mls/hr TITRATE PER PROTOCOL Titration Protocol 2.5 MCG/KG/MIN Vancomycin HCl 1.5 gm/ Sodium 500 mls @ 167 mls/hr 02/17/17 16:56 02/18/17 10 :12 Chloride IVPB 167 mls/hr Q12 RAOUL Administration Protocol Amino Acids/Electrolytes/Dextrose 1,000 mls @ 42 mls/hr 02/18/17 18:00 Clinimix 5/20 % "E" (1000 Ml) IV .[id number] RAOUL Dexmedetomidine HCl 400 mcg in 100 mls @ 3.865 mls/hr 02/18/17 13:04 13:11 Precedex 4 Mcg/Ml (100 Ml) IV 0.2 mcg/kg/hr .Q24H PRN 3.865 mls/hr Agitation Administration Protocol 0.2 MCG/KG/HR Ondansetron HCl 4 mg 02/11/17 13:30 02/13/17 16:26 Zofran Inj IVP 4 mg Q6 PRN Administration Nausea/Vomiting Pantoprazole Sodium 40 mg 02/14/17 10:00 02/18/17 10:11 Protonix Inj IVP 40 mg DAILY RAOUL Administration - Patient Studies Lab Studies: Microbiology Studies 02/16/17 14:10 Gram Stain - Final Sputum Sputum Culture - Final Yeast Species 02/14/17 03:20 S.aureus & Coag-Neg Staph PNA FISH - Final Blood Blood Culture - Final Enterococcus Faecalis Gram Stain - Final Lab Studies 02/18/17 02/18/17 02/18/17 Range/Units 14:10 06:01 05:20 WBC (4.5-11.0) 10^3/ul RBC (3.5-6.1) 10^6/uL Hgb (12.0-16.0) gm/dL Hct (36.0-48.0) % MCV (80.0-105.0) fL MCH (25.0-35.0) pg MCHC (31.0-37.0) g/dl RDW (11.5-14.5) % Plt Count (120.0-450.0) 10^3/uL Gran % (50.0-68.0) % Lymph % (Auto) (22.0-35.0) % Bremer % (Auto) (1.0-6.0) % Eos % (Auto) (1.5-5.0) % Baso % (Auto) (0.0-3.0) % Gran # (1.4-6.5) Lymph # (1.2-3.4) Bremer # (0.1-0.6) Eos # (0.0-0.7) Baso # (0.0-2.0) K/mm3 pCO2 32 L (35-45) mm/Hg pO2 118.0 H (80-100) mm/Hg HCO3 16.5 L (21-28) mmol/L ABG pH 7.32 L (7.35-7.45) ABG Total CO2 17.5 L (22-28) mmol.L ABG O2 Saturation 98.6 H (95-98) % ABG Base Excess -8.5 L (-2.0-3.0) mmol/L ABG Potassium 2.3 L* (3.6-5.2) mmol/L Glucose 90 (65-105) mg/dl Lactate 1.4 (0.7-2.1) mmol/L FiO2 60.0 % Sodium 152.0 H 145 (132-148) mmol/L Potassium 3.0 L 2.8 L* (3.6-5.0) mmol/L Chloride 132.0 H 110 (95-110) mmol/L Carbon Dioxide 28 (21-33) mmol/L Anion Gap 10 (10-20) BUN 35 H (7-21) mg/dL Creatinine 0.9 (0.5-1.4) mg/dL Est GFR ( Amer) > 60 Est GFR (Non-Af Amer) > 60 POC Glucose (mg/dL) (65-110) mg/dL Random Glucose 152 H (70-110) mg/dL Calcium 8.2 L (8.4-10.5) mg/dL Phosphorus 3.2 (2.5-4.5) mg/dL Magnesium 2.0 1.6 L (1.7-2.2) mg/dL Total Bilirubin 1.7 H (0.2-1.3) mg/dL AST 229 H (15-39) U/L ALT 294 H (7-56) U/L Alkaline Phosphatase 121 (38-133) U/L Total Protein 5.7 L (5.8-8.3) g/dL Albumin 2.5 L (3.0-4.8) g/dL Globulin 3.2 gm/dL Albumin/Globulin Ratio 0.8 L (1.1-1.8) Arterial Blood Potassium 2.3 L* (3.6-5.2) mmol/L 02/18/17 02/18/17 02/17/17 Range/Units 05:20 02:52 17:54 WBC 9.8 (4.5-11.0) 10^3/ul RBC 2.60 L (3.5-6.1) 10^6/uL Hgb 7.5 L (12.0-16.0) gm/dL Hct 22.5 L (36.0-48.0) % MCV 86.5 (80.0-105.0) fL MCH 28.8 (25.0-35.0) pg MCHC 33.3 (31.0-37.0) g/dl RDW 16.8 H (11.5-14.5) % Plt Count 28 L* (120.0-450.0) 10^3/uL Gran % 87.1 H (50.0-68.0) % Lymph % (Auto) 9.8 L (22.0-35.0) % Bremer % (Auto) 0.3 L (1.0-6.0) % Eos % (Auto) 2.2 (1.5-5.0) % Baso % (Auto) 0.6 (0.0-3.0) % Gran # 8.50 H (1.4-6.5) Lymph # 1.0 L (1.2-3.4) Bremer # 0.0 L (0.1-0.6) Eos # 0.2 (0.0-0.7) Baso # 0.06 (0.0-2.0) K/mm3 pCO2 (35-45) mm/Hg pO2 (80-100) mm/Hg HCO3 (21-28) mmol/L ABG pH (7.35-7.45) ABG Total CO2 (22-28) mmol.L ABG O2 Saturation (95-98) % ABG Base Excess (-2.0-3.0) mmol/L ABG Potassium (3.6-5.2) mmol/L Glucose (65-105) mg/dl Lactate (0.7-2.1) mmol/L FiO2 % Sodium (132-148) mmol/L Potassium (3.6-5.0) mmol/L Chloride (95-110) mmol/L Carbon Dioxide (21-33) mmol/L Anion Gap (10-20) BUN (7-21) mg/dL Creatinine (0.5-1.4) mg/dL Est GFR ( Amer) Est GFR (Non-Af Amer) POC Glucose (mg/dL) 170 H 113 H (65-110) mg/dL Random Glucose (70-110) mg/dL Calcium (8.4-10.5) mg/dL Phosphorus (2.5-4.5) mg/dL Magnesium (1.7-2.2) mg/dL Total Bilirubin (0.2-1.3) mg/dL AST (15-39) U/L ALT (7-56) U/L Alkaline Phosphatase (38-133) U/L Total Protein (5.8-8.3) g/dL Albumin (3.0-4.8) g/dL Globulin gm/dL Albumin/Globulin Ratio (1.1-1.8) Arterial Blood Potassium (3.6-5.2) mmol/L Laboratory Results - last 24 hr 02/17/17 02/18/17 02/18/17 17:54 02:52 05:20 WBC 9.8 RBC 2.60 L Hgb 7.5 L Hct 22.5 L MCV 86.5 MCH 28.8 MCHC 33.3 RDW 16.8 H Plt Count 28 L* Gran % 87.1 H Lymph % (Auto) 9.8 L Bremer % (Auto) 0.3 L Eos % (Auto) 2.2 Baso % (Auto) 0.6 Gran # 8.50 H Lymph # 1.0 L Bremer # 0.0 L Eos # 0.2 Baso # 0.06 pCO2 pO2 HCO3 ABG pH ABG Total CO2 ABG O2 Saturation ABG Base Excess ABG Potassium Glucose Lactate FiO2 Sodium Potassium Chloride Carbon Dioxide Anion Gap BUN Creatinine Est GFR ( Amer) Est GFR (Non-Af Amer) POC Glucose (mg/dL) 113 H 170 H Random Glucose Calcium Phosphorus Magnesium Total Bilirubin AST ALT Alkaline Phosphatase Total Protein Albumin Globulin Albumin/Globulin Ratio Arterial Blood Potassium 02/18/17 02/18/17 02/18/17 05:20 06:01 14:10 WBC RBC Hgb Hct MCV MCH MCHC RDW Plt Count Gran % Lymph % (Auto) Bremer % (Auto) Eos % (Auto) Baso % (Auto) Gran # Lymph # Bremer # Eos # Baso # pCO2 32 L pO2 118.0 H HCO3 16.5 L ABG pH 7.32 L ABG Total CO2 17.5 L ABG O2 Saturation 98.6 H ABG Base Excess -8.5 L ABG Potassium 2.3 L* Glucose 90 Lactate 1.4 FiO2 60.0 Sodium 145 152.0 H Potassium 2.8 L* 3.0 L Chloride 110 132.0 H Carbon Dioxide 28 Anion Gap 10 BUN 35 H Creatinine 0.9 Est GFR ( Amer) > 60 Est GFR (Non-Af Amer) > 60 POC Glucose (mg/dL) Random Glucose 152 H Calcium 8.2 L Phosphorus 3.2 Magnesium 1.6 L 2.0 Total Bilirubin 1.7 H AST 229 H ALT 294 H Alkaline Phosphatase 121 Total Protein 5.7 L Albumin 2.5 L Globulin 3.2 Albumin/Globulin Ratio 0.8 L Arterial Blood Potassium 2.3 L* Attending/Attestation - Attestation I have personally seen and examined this patient.: Yes I have fully participated in the care of the patient.: Yes I have reviewed all pertinent clinical information: Yes Notes (Text): 02/18/17 14:48 51 y/o F w/ Recovering Septic Shock. Off vasopressors and weaning off inotrope support of Dobutamine while being diuresed w/ Lasix. On ABX x 14 days for ESBL UTI HGB dropping w/o blood loss, surgical team wants 2 units PRBC to keep > 9 Platelets 24k, if bleeding, tx platelets or at < 10k SBT weaning trial done today x 2 hrs. Passed w/ minimal fentanyl. Will try again in the a.m , mental status poor and ETCo2 high. Recovering slowly, palliative care on board, GI, Surgery and ID. 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 cc time 65 min
--- NOTE | 2017-02-18 08:48 | CP.PCM.PN ---
Subjective - Date & Time of Evaluation Date of Evaluation: 02/18/17 Time of Evaluation: 08:40 - Subjective Subjective: Surgery: Dr. Marti Patient remains intubated in the ICU. She is sedated however eyes open spontaneously. Patient remains on Dobutamine for pressures support. Per nursing , OGT put out 90cc/bilious fluid in 24hr. Urine output has been 2500/cc24hr. Objective - Vital Signs/Intake and Output Vital Signs (last 24 hours): Temp Pulse Resp BP Pulse Ox 98 F 100 H 24 116/89 96 02/18/17 04:00 02/18/17 06:30 02/18/17 07:01 02/18/17 06:30 02/18/17 07:01 Intake and Output: 02/18/17 02/18/17 06:59 18:59 Intake Total 1275 100 Output Total 750 Balance 525 100 - Medications Medications: Current Medications Acetylcysteine (Acetylcysteine 20%) 4 ml IH [id number] [facility] Last Admin: 02/17/17 19:48 Dose: Not Given Albuterol Sulfate (Albuterol 0.083% Inhal Amarilys (2.5 Mg/3 Ml) Ud) 2.5 mg IH [id number] [facility] Last Admin: 02/18/17 07:02 Dose: 2.5 mg Arformoterol Tartrate (Brovana) 15 mcg IH [id number] [facility] Last Admin: 02/18/17 07:02 Dose: 15 mcg Budesonide (Pulmicort Respules) 0.5 mg IH [id number] [facility] Last Admin: 02/18/17 07:02 Dose: 0.5 mg Clonazepam (Klonopin) 1 mg PO BID [facility] PRN Reason: Protocol Last Admin: 02/14/17 10:00 Dose: Not Given Furosemide (Lasix) 40 mg IVP DAILY [facility] Last Admin: 02/17/17 14:41 Dose: 40 mg Gabapentin (Neurontin) 800 mg PO QID [facility] Last Admin: 02/14/17 13:29 Dose: Not Given Hydrocortisone Sodium Succinate (Solu-Cortef) 50 mg IVP Q6H [facility] Last Admin: 02/18/17 01:30 Dose: 50 mg NOREPINEPHRINE BIT/0.9 % NACL (Levophed 4 Mg/ 250 Ml Ns Premixed) 4 mg in 250 mls @ 15 mls/hr IV .[id number] PRN; Protocol; 4 MCG/MIN PRN Reason: TITRATE PER MD ORDER Last Titration: 02/17/17 09:10 Dose: 0 mcg/min, 0 mls/hr Epinephrine HCl 1 mg/ Sodium (Chloride) 51 mls @ 15.3 mls/hr IV .Q3H20M PRN; Protocol; 5 MCG/MIN PRN Reason: TITRATE PER MD ORDER Last Titration: 02/15/17 11:30 Dose: 0 mcg/min, 0 mls/hr Meropenem 1g/NS 100mL IVPB (Meropenem 1g/Ns 100ml Ivpb) 1 gm in 100 mls @ 100 mls/hr IVPB Q8 [facility] PRN Reason: Protocol Last Admin: 02/18/17 05:03 Dose: 100 mls/hr Sodium Bicarbonate 100 meq/ (Dextrose/Sodium Chloride) 1,100 mls @ 80 mls/hr IV .[id number] [facility] Last Admin: 02/16/17 15:35 Dose: Not Given Vasopressin 20 units/ Dextrose 101 mls @ 9.09 mls/hr IV .Q11H7M [facility]; 0.03 U/MIN PRN Reason: Protocol Last Titration: 02/16/17 16:00 Dose: 0 u/min, 0 mls/hr Amino Acids/Electrolytes/Dextrose (Clinimix 5/20 % "E" (1000 Ml)) 1,000 mls @ 42 mls/hr IV .[id number] [facility] Last Admin: 02/17/17 17:23 Dose: 42 mls/hr Dobutamine HCl/Dextrose (Dobutamine/Dextrose 5% 500mg/250ml) 500 mg in 250 mls @ 6.328 mls/hr IV .Q24H PRN; Protocol; 2.5 MCG/KG/MIN PRN Reason: TITRATE PER PROTOCOL Last Titration: 02/17/17 10:45 Dose: 2.5 mcg/kg/min, 6.328 mls/hr Vancomycin HCl 1.5 gm/ Sodium (Chloride) 500 mls @ 167 mls/hr IVPB Q12 [facility] PRN Reason: Protocol Last Admin: 02/17/17 22:50 Dose: 167 mls/hr Potassium Chloride (Potassium Chloride 20 Meq/100 Ml) 20 meq in 100 mls @ 50 mls/hr IVPB Q2H [facility] Stop: 02/18/17 11:14 Last Admin: 02/18/17 07:28 Dose: 50 mls/hr Ondansetron HCl (Zofran Inj) 4 mg IVP Q6 PRN PRN Reason: Nausea/Vomiting Last Admin: 02/13/17 16:26 Dose: 4 mg Pantoprazole Sodium (Protonix Inj) 40 mg IVP DAILY [facility] Last Admin: 02/17/17 09:20 Dose: 40 mg - Labs Labs: 02/18/17 05:20 02/18/17 05:20 PT 17.7 Seconds (9.9-11.8) H 02/16/17 06:08 INR 1.64 (0.93-1.08) H 02/16/17 06:08 APTT 33.6 Seconds (23.7-30.8) H 02/16/17 06:08 - Constitutional Appears: Cachectic, Chronically Ill - Head Exam Head Exam: ATRAUMATIC, NORMOCEPHALIC - ENT Exam ENT Exam: Mucous Membranes Moist - Respiratory Exam Additional comments: on mechanical ventilation Fio2 50% and PEEP of 10 - Cardiovascular Exam Cardiovascular Exam: REGULAR RHYTHM. absent: Tachycardia - GI/Abdominal Exam GI & Abdominal Exam: Distended, Firm, Tenderness (patient grimaces to pain ). absent: Guarding, Rebound Additional comments: ostomy in LLQ w/ brown liquid stool output - Extremities Exam Extremities Exam: Pedal Edema - Skin Skin Exam: Dry, Warm Assessment and Plan - Assessment and Plan (Free Text) Assessment: 51 y/o female in septic shock with multi-organ failure and pneumoperitoneum Plan: -clinically improved, overall prognosis remains guarded. patient's platelets continue to drop and hgb slowing decreasing-transfuse prn -patient's family preferred non-operative management of presumed bowel perforation -at this point, patient overall clinical status would not benefit from surgical intervention -cont non operative management -IVP protonix -OGT on suction -medical management per ICU team -will cont to follow -further recs per Dr. Kaia Ray PGY1
--- NOTE | 2017-02-18 09:28 | CP.PCM.PN ---
<Jada Cohen - Last Filed: 02/18/17 10:37> Subjective - Date & Time of Evaluation Date of Evaluation: 02/18/17 Time of Evaluation: 09:24 - Subjective Subjective: GI progress note Patient is seen and examined at bedside. No acute events overnight. patient is currently intubated on PRVC vent settings. On fentanyl for sedation and dobutamine for hemodynamic support. 12 point ROS are unobtainable as patient is intubated. Objective - Vital Signs/Intake and Output Vital Signs (last 24 hours): Temp Pulse Resp BP Pulse Ox 98 F 100 H 24 116/89 96 02/18/17 04:00 02/18/17 06:30 02/18/17 07:01 02/18/17 06:30 02/18/17 07:01 Intake and Output: 02/18/17 02/18/17 06:59 18:59 Intake Total 1275 100 Output Total 750 Balance 525 100 - Medications Medications: Current Medications Acetylcysteine (Acetylcysteine 20%) 4 ml IH [id number] [facility] Last Admin: 02/17/17 19:48 Dose: Not Given Albuterol Sulfate (Albuterol 0.083% Inhal Amarilys (2.5 Mg/3 Ml) Ud) 2.5 mg IH [id number] [facility] Last Admin: 02/18/17 07:02 Dose: 2.5 mg Arformoterol Tartrate (Brovana) 15 mcg IH [id number] [facility] Last Admin: 02/18/17 07:02 Dose: 15 mcg Budesonide (Pulmicort Respules) 0.5 mg IH [id number] [facility] Last Admin: 02/18/17 07:02 Dose: 0.5 mg Clonazepam (Klonopin) 1 mg PO BID [facility] PRN Reason: Protocol Last Admin: 02/14/17 10:00 Dose: Not Given Furosemide (Lasix) 40 mg IVP DAILY [facility] Last Admin: 02/17/17 14:41 Dose: 40 mg Gabapentin (Neurontin) 800 mg PO QID [facility] Last Admin: 02/14/17 13:29 Dose: Not Given Hydrocortisone Sodium Succinate (Solu-Cortef) 50 mg IVP Q6H [facility] Last Admin: 02/18/17 01:30 Dose: 50 mg NOREPINEPHRINE BIT/0.9 % NACL (Levophed 4 Mg/ 250 Ml Ns Premixed) 4 mg in 250 mls @ 15 mls/hr IV .[id number] PRN; Protocol; 4 MCG/MIN PRN Reason: TITRATE PER MD ORDER Last Titration: 02/17/17 09:10 Dose: 0 mcg/min, 0 mls/hr Epinephrine HCl 1 mg/ Sodium (Chloride) 51 mls @ 15.3 mls/hr IV .Q3H20M PRN; Protocol; 5 MCG/MIN PRN Reason: TITRATE PER MD ORDER Last Titration: 02/15/17 11:30 Dose: 0 mcg/min, 0 mls/hr Meropenem 1g/NS 100mL IVPB (Meropenem 1g/Ns 100ml Ivpb) 1 gm in 100 mls @ 100 mls/hr IVPB Q8 [facility] PRN Reason: Protocol Last Admin: 02/18/17 05:03 Dose: 100 mls/hr Sodium Bicarbonate 100 meq/ (Dextrose/Sodium Chloride) 1,100 mls @ 80 mls/hr IV .[id number] [facility] Last Admin: 02/16/17 15:35 Dose: Not Given Vasopressin 20 units/ Dextrose 101 mls @ 9.09 mls/hr IV .Q11H7M [facility]; 0.03 U/MIN PRN Reason: Protocol Last Titration: 02/16/17 16:00 Dose: 0 u/min, 0 mls/hr Amino Acids/Electrolytes/Dextrose (Clinimix 5/20 % "E" (1000 Ml)) 1,000 mls @ 42 mls/hr IV .[id number] [facility] Last Admin: 02/17/17 17:23 Dose: 42 mls/hr Dobutamine HCl/Dextrose (Dobutamine/Dextrose 5% 500mg/250ml) 500 mg in 250 mls @ 6.328 mls/hr IV .Q24H PRN; Protocol; 2.5 MCG/KG/MIN PRN Reason: TITRATE PER PROTOCOL Last Titration: 02/17/17 10:45 Dose: 2.5 mcg/kg/min, 6.328 mls/hr Vancomycin HCl 1.5 gm/ Sodium (Chloride) 500 mls @ 167 mls/hr IVPB Q12 [facility] PRN Reason: Protocol Last Admin: 02/17/17 22:50 Dose: 167 mls/hr Potassium Chloride (Potassium Chloride 20 Meq/100 Ml) 20 meq in 100 mls @ 50 mls/hr IVPB Q2H [facility] Stop: 02/18/17 11:14 Last Admin: 02/18/17 07:28 Dose: 50 mls/hr Ondansetron HCl (Zofran Inj) 4 mg IVP Q6 PRN PRN Reason: Nausea/Vomiting Last Admin: 02/13/17 16:26 Dose: 4 mg Pantoprazole Sodium (Protonix Inj) 40 mg IVP DAILY [facility] Last Admin: 02/17/17 09:20 Dose: 40 mg - Labs Labs: 02/18/17 05:20 02/18/17 05:20 PT 17.7 Seconds (9.9-11.8) H 02/16/17 06:08 INR 1.64 (0.93-1.08) H 02/16/17 06:08 APTT 33.6 Seconds (23.7-30.8) H 02/16/17 06:08 - Constitutional Appears: No Acute Distress - Head Exam Head Exam: ATRAUMATIC - Eye Exam Pupil Exam: PERRL - ENT Exam ENT Exam: Mucous Membranes Moist - Respiratory Exam Respiratory Exam: absent: Accessory Muscle Use, Respiratory Distress - Cardiovascular Exam Cardiovascular Exam: REGULAR RHYTHM, +S1, +S2. absent: Gallop, Rubs, Murmur - GI/Abdominal Exam GI & Abdominal Exam: Distended, Soft, Tenderness, Hypoactive Bowel Sounds. 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 Patient is currently in ICU for septic shock 2/2 UTI &/or bacteremia. Patient is also found to have perforation in bowel as seen on CT of abd/pelvis. Patient also had acute blood loss anemia. NG tube output is bilious in color and about 140 cc. Hgb trending down this morning. Septic shock with end organ dysfunction likely 2/2 UTI vs. bacteremia - Continue management per ICU and primary care team - currently on dobutamine for pressure support. - White count and lactic acid improved - Kidney and liver function is improving. Bowel perforation - Surgery team is consulted. No surgical intervention per patient mother's request. Acute blood loss anemia - Blood loss may be due to bowel perf - Hgb trending down. Consider addition transfusion - Sigmoidoscopy attempted on 02/13. At that time DGR showed friable mass that was bleeding. Thrombocytopenia - Platelts trending down likely 2/2 DIC. Consider transfusing platelets - Continue to monitor Mucinous adenocarcinoma of colon - CT of chest/abd pelvis showed diffuse LAD At this point, family wishes no surgical intervention for known bowel perf. GI will sign off. Please feel free to re-consult if necessary. Case discussed with attending, Dr. Plascencia. <Fabi Plascencia MD - Last Filed: 02/18/17 14:12> Objective - Vital Signs/Intake and Output Vital Signs (last 24 hours): Temp Pulse Resp BP Pulse Ox 98 F 100 H 24 118/75 96 02/18/17 04:00 02/18/17 06:30 02/18/17 07:01 02/18/17 09:27 02/18/17 07:01 Intake and Output: 02/18/17 02/18/17 06:59 18:59 Intake Total 1275 100 Output Total 750 Balance 525 100 - Medications Medications: Current Medications Acetylcysteine (Acetylcysteine 20%) 4 ml IH [id number] [facility] Last Admin: 02/17/17 19:48 Dose: Not Given Albuterol Sulfate (Albuterol 0.083% Inhal Amarilys (2.5 Mg/3 Ml) Ud) 2.5 mg IH [id number] [facility] Last Admin: 02/18/17 11:28 Dose: 2.5 mg Arformoterol Tartrate (Brovana) 15 mcg IH [id number] [facility] Last Admin: 02/18/17 07:02 Dose: 15 mcg Budesonide (Pulmicort Respules) 0.5 mg IH [id number] [facility] Last Admin: 02/18/17 07:02 Dose: 0.5 mg Clonazepam (Klonopin) 1 mg PO BID [facility] PRN Reason: Protocol Last Admin: 02/14/17 10:00 Dose: Not Given Furosemide (Lasix) 40 mg IVP DAILY [facility] Last Admin: 02/18/17 09:27 Dose: 40 mg Gabapentin (Neurontin) 800 mg PO QID [facility] Last Admin: 02/14/17 13:29 Dose: Not Given Hydrocortisone Sodium Succinate (Solu-Cortef) 50 mg IVP Q6H [facility] Last Admin: 02/18/17 13:26 Dose: 50 mg NOREPINEPHRINE BIT/0.9 % NACL (Levophed 4 Mg/ 250 Ml Ns Premixed) 4 mg in 250 mls @ 15 mls/hr IV .[id number] PRN; Protocol; 4 MCG/MIN PRN Reason: TITRATE PER MD ORDER Last Titration: 02/17/17 09:10 Dose: 0 mcg/min, 0 mls/hr Epinephrine HCl 1 mg/ Sodium (Chloride) 51 mls @ 15.3 mls/hr IV .Q3H20M PRN; Protocol; 5 MCG/MIN PRN Reason: TITRATE PER MD ORDER Last Titration: 02/15/17 11:30 Dose: 0 mcg/min, 0 mls/hr Meropenem 1g/NS 100mL IVPB (Meropenem 1g/Ns 100ml Ivpb) 1 gm in 100 mls @ 100 mls/hr IVPB Q8 [facility] PRN Reason: Protocol Last Admin: 02/18/17 13:28 Dose: 100 mls/hr Sodium Bicarbonate 100 meq/ (Dextrose/Sodium Chloride) 1,100 mls @ 80 mls/hr IV .[id number] [facility] Last Admin: 02/16/17 15:35 Dose: Not Given Vasopressin 20 units/ Dextrose 101 mls @ 9.09 mls/hr IV .Q11H7M [facility]; 0.03 U/MIN PRN Reason: Protocol Last Titration: 02/16/17 16:00 Dose: 0 u/min, 0 mls/hr Dobutamine HCl/Dextrose (Dobutamine/Dextrose 5% 500mg/250ml) 500 mg in 250 mls @ 6.328 mls/hr IV .Q24H PRN; Protocol; 2.5 MCG/KG/MIN PRN Reason: TITRATE PER PROTOCOL Last Titration: 02/17/17 10:45 Dose: 2.5 mcg/kg/min, 6.328 mls/hr Vancomycin HCl 1.5 gm/ Sodium (Chloride) 500 mls @ 167 mls/hr IVPB Q12 [facility] PRN Reason: Protocol Last Admin: 02/18/17 10:12 Dose: 167 mls/hr Amino Acids/Electrolytes/Dextrose (Clinimix 5/20 % "E" (1000 Ml)) 1,000 mls @ 42 mls/hr IV .[id number] [facility] Dexmedetomidine HCl (Precedex 4 Mcg/Ml (100 Ml)) 400 mcg in 100 mls @ 3.865 mls /hr IV .Q24H PRN; Protocol; 0.2 MCG/KG/HR PRN Reason: Agitation Last Admin: 02/18/17 13:11 Dose: 0.2 mcg/kg/hr, 3.865 mls/hr Ondansetron HCl (Zofran Inj) 4 mg IVP Q6 PRN PRN Reason: Nausea/Vomiting Last Admin: 02/13/17 16:26 Dose: 4 mg Pantoprazole Sodium (Protonix Inj) 40 mg IVP DAILY [facility] Last Admin: 02/18/17 10:11 Dose: 40 mg - Labs Labs: 02/18/17 05:20 02/18/17 05:20 PT 17.7 Seconds (9.9-11.8) H 02/16/17 06:08 INR 1.64 (0.93-1.08) H 02/16/17 06:08 APTT 33.6 Seconds (23.7-30.8) H 02/16/17 06:08 Attending/Attestation - Attestation I have personally seen and examined this patient.: Yes I have fully participated in the care of the patient.: Yes I have reviewed all pertinent clinical information, including history, physical exam and plan: Yes Notes (Text): 02/18/17 14:11 Patient seen and examined with GI fellow/electromedical service engineer. 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 She is s/p attempted colonoscopy/flex sig showing large friable mass of rectum with severe stenosis. Her course has been complicated by septic shock and pneumoperitoneum. She remains in ICU intubated. Pressor requirement improved today. Family reportedly declining surgical intervention. Would continue supportive care, IV antibiotics, monitor NGT output/ostomy output. Shock liver slowly improving. Continue ICU management. Overall prognosis is guarded. No further GI intervention to offer. Will sign off now. Please reconsult prn
[2017-02-18] MEDS: Vancomycin 1.5 GM in Sodium Chloride 0.9% 500 ML IVPB SCH ×2 (10:12→22:44)
--- NOTE | 2017-02-18 10:26 | RAD ---
HISTORY: intubated COMPARISON: 02/17/2017 FINDINGS: LUNGS: There is a pattern of increasing pulmonary edema with a perihilar infiltrate. Central lines and tubes are unchanged PLEURA: No significant pleural effusion identified, no pneumothorax apparent. CARDIOVASCULAR: Normal. OSSEOUS STRUCTURES: No significant abnormalities. VISUALIZED UPPER ABDOMEN: Normal. OTHER FINDINGS: None. IMPRESSION: Increasing pulmonary edema
[2017-02-18] MEDS: Dexmedetomidine HCl 4mcg/ml 400 MCG/100 ML BOTTLE IV PRN (13:11)
--- NOTE | 2017-02-18 15:00 | PN ---
DATE: 02/18/2017 SUBJECTIVE: The patient is seen in the ICU. She is on mechanical ventilation. Her sedation has bee n turned off since 9 this morning. She is awake, eyes are open. She is not following commands. She remains on IV dobutamine. She is off Levophed. She is going to start receiving hyperalimentation. PHYSICAL EXAMINATION: GENERAL: Middle-aged lady lying in bed in the ICU, on mechanical ventilation. VITAL SIGNS: Blood pressure 118/75, heart rate 100, respiratory rate 24 per minute, temperature 98. HEENT: Normocephalic, atraumatic, positive pallor. NECK: Supple, no JVD. LUNGS: Bilateral rhonchi, equal expansion, equal air entry. CARDIAC: S1, S2, regular rate and rhythm, no murmur, no rub. ABDOMEN: Distended, soft, bowel sounds sluggish to absent, positive colostomy. EXTREMITIES: 1+ pitting edema of the lower extremities. INTAKE AND OUTPUT: 2663/2640. LABORATORY DATA: WBC 9.8, hemoglobin 7.5, hematocrit 23, platelets 28. INR 1.6, PTT 33.6. FTB grea ter than 40. D-dimer 18. Blood gas ABG: pH 7.3, pCO2 32, pO2 118. Sodium 145, potassium 2.8, chlo ride 110, CO2 28, BUN 35, creatinine 0.9, glucose 152, calcium 8.2, phosphorus 3.2, magnesium 1.6. T otal bili 1.7, AST 229, ALT 294, albumin 2.5. Sputum culture: Yeast. Urine culture: Escherichia coli and proteus. Blood cultures: Enterococcus . CURRENT MEDICATIONS: Mucomyst, DuoNeb, Brovana, dobutamine at 2.5 mcg, Lasix 40 IV daily, norepineph rine, meropenem 1 gram q. 8, Protonix 40, vancomycin 1 gram q. 12, vasopressin, Zofran. ASSESSMENT: 1. Acute kidney injury, prerenal azotemia, sepsis, hypotension, urinary tract infection. 2. History of Crohn's disease. 3. Adenocarcinoma of the colon. 4. Intraabdominal abscess, status post laparotomy, hemicolectomy, colostomy. 5. Gastrointestinal bleed. 6. Disseminated intravascular coagulation, thrombocytopenia. 7. Right hydronephrosis. 8. Severe hypokalemia. 9. Elevated bilirubin. 10. Hypoalbuminemia. PLAN: 1. Continue antibiotics to cover for gram-negative sepsis, gram-positive bacteremia. 2. Consider antifungal treatment. 3. Case is discussed with ICU staff at length. Prognosis is grim. More than 35 minutes are spent in the care of this critically ill patient. Lucinda Kelley MD cc: [id number] TT: 02/18/2017 14:59:56 Confirmation # [id number] Dictation # [id number] mn
--- NOTE | 2017-02-18 15:17 | CP.PCM.PN ---
<Melchor Pringle - Last Filed: 02/18/17 15:13> Subjective - Date & Time of Evaluation Date of Evaluation: 02/18/17 Time of Evaluation: 10:35 - Subjective Subjective: Patient remains intubated. Failed CPAP trial this morning. Norepi is discontinued. She remains on Dobutamine. Hemodynamic status remains stable. Weaning Fentanyl this morning as well. The patient appears restless but does not follow commands. She withdraws from painful stimuli Objective - Vital Signs/Intake and Output Vital Signs (last 24 hours): Temp Pulse Resp BP Pulse Ox 98 F 100 H 24 118/75 96 02/18/17 04:00 02/18/17 06:30 02/18/17 07:01 02/18/17 09:27 02/18/17 07:01 Intake and Output: 02/18/17 02/18/17 06:59 18:59 Intake Total 1275 100 Output Total 750 Balance 525 100 - Medications Medications: Current Medications Acetylcysteine (Acetylcysteine 20%) 4 ml IH [id number] [facility] Last Admin: 02/17/17 19:48 Dose: Not Given Albuterol Sulfate (Albuterol 0.083% Inhal Amarilys (2.5 Mg/3 Ml) Ud) 2.5 mg IH [id number] [facility] Last Admin: 02/18/17 11:28 Dose: 2.5 mg Arformoterol Tartrate (Brovana) 15 mcg IH [id number] [facility] Last Admin: 02/18/17 07:02 Dose: 15 mcg Budesonide (Pulmicort Respules) 0.5 mg IH [id number] [facility] Last Admin: 02/18/17 07:02 Dose: 0.5 mg Clonazepam (Klonopin) 1 mg PO BID [facility] PRN Reason: Protocol Last Admin: 02/14/17 10:00 Dose: Not Given Furosemide (Lasix) 40 mg IVP DAILY [facility] Last Admin: 02/18/17 09:27 Dose: 40 mg Gabapentin (Neurontin) 800 mg PO QID [facility] Last Admin: 02/14/17 13:29 Dose: Not Given Hydrocortisone Sodium Succinate (Solu-Cortef) 50 mg IVP Q6H [facility] Last Admin: 02/18/17 13:26 Dose: 50 mg NOREPINEPHRINE BIT/0.9 % NACL (Levophed 4 Mg/ 250 Ml Ns Premixed) 4 mg in 250 mls @ 15 mls/hr IV .[id number] PRN; Protocol; 4 MCG/MIN PRN Reason: TITRATE PER MD ORDER Last Titration: 02/17/17 09:10 Dose: 0 mcg/min, 0 mls/hr Epinephrine HCl 1 mg/ Sodium (Chloride) 51 mls @ 15.3 mls/hr IV .Q3H20M PRN; Protocol; 5 MCG/MIN PRN Reason: TITRATE PER MD ORDER Last Titration: 02/15/17 11:30 Dose: 0 mcg/min, 0 mls/hr Meropenem 1g/NS 100mL IVPB (Meropenem 1g/Ns 100ml Ivpb) 1 gm in 100 mls @ 100 mls/hr IVPB Q8 [facility] PRN Reason: Protocol Last Admin: 02/18/17 13:28 Dose: 100 mls/hr Sodium Bicarbonate 100 meq/ (Dextrose/Sodium Chloride) 1,100 mls @ 80 mls/hr IV .[id number] [facility] Last Admin: 02/16/17 15:35 Dose: Not Given Vasopressin 20 units/ Dextrose 101 mls @ 9.09 mls/hr IV .[id number] [facility]; 0.03 U/MIN PRN Reason: Protocol Last Titration: 02/16/17 16:00 Dose: 0 u/min, 0 mls/hr Dobutamine HCl/Dextrose (Dobutamine/Dextrose 5% 500mg/250ml) 500 mg in 250 mls @ 6.328 mls/hr IV .Q24H PRN; Protocol; 2.5 MCG/KG/MIN PRN Reason: TITRATE PER PROTOCOL Last Titration: 02/17/17 10:45 Dose: 2.5 mcg/kg/min, 6.328 mls/hr Vancomycin HCl 1.5 gm/ Sodium (Chloride) 500 mls @ 167 mls/hr IVPB Q12 [facility] PRN Reason: Protocol Last Admin: 02/18/17 10:12 Dose: 167 mls/hr Amino Acids/Electrolytes/Dextrose (Clinimix 5/20 % "E" (1000 Ml)) 1,000 mls @ 42 mls/hr IV .[id number] [facility] Dexmedetomidine HCl (Precedex 4 Mcg/Ml (100 Ml)) 400 mcg in 100 mls @ 3.865 mls /hr IV .Q24H PRN; Protocol; 0.2 MCG/KG/HR PRN Reason: Agitation Last Admin: 02/18/17 13:11 Dose: 0.2 mcg/kg/hr, 3.865 mls/hr Potassium Chloride (Potassium Chloride 20 Meq/100 Ml) 20 meq in 100 mls @ 50 mls/hr IVPB Q2H [facility] Stop: 02/18/17 18:59 Last Admin: 02/18/17 15:03 Dose: 50 mls/hr Fentanyl Citrate (Fentanyl Citrate/Sodium Chloride 1 Mg/100 Ml) 1,000 mcg in 100 mls @ 2 mls/hr IV .Q24H PRN; Protocol; 20 MCG/HR PRN Reason: TITRATE PER MD ORDER Ondansetron HCl (Zofran Inj) 4 mg IVP Q6 PRN PRN Reason: Nausea/Vomiting Last Admin: 02/13/17 16:26 Dose: 4 mg Pantoprazole Sodium (Protonix Inj) 40 mg IVP DAILY [facility] Last Admin: 02/18/17 10:11 Dose: 40 mg - Labs Labs: 02/18/17 05:20 02/18/17 14:10 PT 17.7 Seconds (9.9-11.8) H 02/16/17 06:08 INR 1.64 (0.93-1.08) H 02/16/17 06:08 APTT 33.6 Seconds (23.7-30.8) H 02/16/17 06:08 - Head Exam Head Exam: ATRAUMATIC, NORMOCEPHALIC - Eye Exam Eye Exam: PERRL. absent: EOMI - ENT Exam ENT Exam: Mucous Membranes Moist - Neck Exam Neck Exam: Full ROM, Normal Inspection - Respiratory Exam Respiratory Exam: Clear to Ausculation Bilateral, Rhonchi. absent: Wheezes - Cardiovascular Exam Cardiovascular Exam: REGULAR RHYTHM, +S1, +S2 - GI/Abdominal Exam GI & Abdominal Exam: Soft, Normal Bowel Sounds. absent: Tenderness - Extremities Exam Extremities Exam: Calf Tenderness. absent: Pedal Edema - Neurological Exam Additional comments: withdraws to pain. eyes are open but do not track. - Skin Skin Exam: Normal Color, Warm Assessment and Plan - Assessment and Plan (Free Text) Assessment: 51 year old female with past medical history of Crohns disease, asthma, bipolar disorder, polysubstance abuse and recent diagnoses of adenocarcinoma of the colon is in septic shock currently in ICU. Patient remains intubated. Failed weaning trial this morning. Norepi is discontinued. Clinical status is improving however prognosis is guarded. Septic shock 2/2 abdominal perforation complicated by ESBL urosepsis - Continue pressors for hemodynamic stability - manage per CCU team - continue Meropenem - ID following - Palliative care is following and discussing end of life care with patient's family. acute kidney injury 2/2 septic shock, multi-organ dysfunction syndrome - renal function is improving - avoiding nephrotoxic drugs when possible - maintaining MAP >65 transaminitis 2/2 shock liver in setting of septic shock - liver enzymes trending down - continue to maintain MAP >65 - monitor liver enzymes daily thrombocytopenia 2/2 sepsis, bone marrow suppression - transfuse per ICU team - daily CBC - SCD's - SHARON panel negative bacteremia - E. faecalis in blood culture - continue meropenem, vanc per ID UTI - Proteus mirabilis, ESBL in urine - continue abx as above Adenocarcinoma of colon: - heme/onc following - Ct of chest shows interstitial infiltrates with extensive bibasilar consolidations. Extensive B/L and medistinal LAD. Prophylaxis: Protonix. SCDs. <Mari Kincaid B - Last Filed: 02/18/17 16:24> Objective - Vital Signs/Intake and Output Vital Signs (last 24 hours): Temp Pulse Resp BP Pulse Ox 98 F 100 H 24 118/75 96 02/18/17 04:00 02/18/17 06:30 02/18/17 07:01 02/18/17 09:27 02/18/17 07:01 Intake and Output: 02/18/17 02/18/17 06:59 18:59 Intake Total 1275 100 Output Total 750 Balance 525 100 - Medications Medications: Current Medications Acetylcysteine (Acetylcysteine 20%) 4 ml IH [id number] [facility] Last Admin: 02/17/17 19:48 Dose: Not Given Albuterol Sulfate (Albuterol 0.083% Inhal Amarilys (2.5 Mg/3 Ml) Ud) 2.5 mg IH [id number] [facility] Last Admin: 02/18/17 15:36 Dose: 2.5 mg Arformoterol Tartrate (Brovana) 15 mcg IH [id number] [facility] Last Admin: 02/18/17 07:02 Dose: 15 mcg Budesonide (Pulmicort Respules) 0.5 mg IH [id number] [facility] Last Admin: 02/18/17 07:02 Dose: 0.5 mg Clonazepam (Klonopin) 1 mg PO BID [facility] PRN Reason: Protocol Last Admin: 02/14/17 10:00 Dose: Not Given Furosemide (Lasix) 40 mg IVP DAILY [facility] Last Admin: 02/18/17 09:27 Dose: 40 mg Gabapentin (Neurontin) 800 mg PO QID [facility] Last Admin: 02/14/17 13:29 Dose: Not Given Hydrocortisone Sodium Succinate (Solu-Cortef) 50 mg IVP Q6H [facility] Last Admin: 02/18/17 13:26 Dose: 50 mg NOREPINEPHRINE BIT/0.9 % NACL (Levophed 4 Mg/ 250 Ml Ns Premixed) 4 mg in 250 mls @ 15 mls/hr IV .[id number] PRN; Protocol; 4 MCG/MIN PRN Reason: TITRATE PER MD ORDER Last Titration: 02/17/17 09:10 Dose: 0 mcg/min, 0 mls/hr Epinephrine HCl 1 mg/ Sodium (Chloride) 51 mls @ 15.3 mls/hr IV .Q3H20M PRN; Protocol; 5 MCG/MIN PRN Reason: TITRATE PER MD ORDER Last Titration: 02/15/17 11:30 Dose: 0 mcg/min, 0 mls/hr Meropenem 1g/NS 100mL IVPB (Meropenem 1g/Ns 100ml Ivpb) 1 gm in 100 mls @ 100 mls/hr IVPB Q8 [facility] PRN Reason: Protocol Last Admin: 02/18/17 13:28 Dose: 100 mls/hr Sodium Bicarbonate 100 meq/ (Dextrose/Sodium Chloride) 1,100 mls @ 80 mls/hr IV .[id number] [facility] Last Admin: 02/16/17 15:35 Dose: Not Given Vasopressin 20 units/ Dextrose 101 mls @ 9.09 mls/hr IV .Q11H7M [facility]; 0.03 U/MIN PRN Reason: Protocol Last Titration: 02/16/17 16:00 Dose: 0 u/min, 0 mls/hr Dobutamine HCl/Dextrose (Dobutamine/Dextrose 5% 500mg/250ml) 500 mg in 250 mls @ 6.328 mls/hr IV .Q24H PRN; Protocol; 2.5 MCG/KG/MIN PRN Reason: TITRATE PER PROTOCOL Last Titration: 02/17/17 10:45 Dose: 2.5 mcg/kg/min, 6.328 mls/hr Vancomycin HCl 1.5 gm/ Sodium (Chloride) 500 mls @ 167 mls/hr IVPB Q12 [facility] PRN Reason: Protocol Last Admin: 02/18/17 10:12 Dose: 167 mls/hr Amino Acids/Electrolytes/Dextrose (Clinimix 5/20 % "E" (1000 Ml)) 1,000 mls @ 42 mls/hr IV .[id number] [facility] Dexmedetomidine HCl (Precedex 4 Mcg/Ml (100 Ml)) 400 mcg in 100 mls @ 3.865 mls /hr IV .Q24H PRN; Protocol; 0.2 MCG/KG/HR PRN Reason: Agitation Last Admin: 02/18/17 13:11 Dose: 0.2 mcg/kg/hr, 3.865 mls/hr Potassium Chloride (Potassium Chloride 20 Meq/100 Ml) 20 meq in 100 mls @ 50 mls/hr IVPB Q2H [facility] Stop: 02/18/17 18:59 Last Admin: 02/18/17 15:03 Dose: 50 mls/hr Fentanyl Citrate (Fentanyl Citrate/Sodium Chloride 1 Mg/100 Ml) 1,000 mcg in 100 mls @ 2 mls/hr IV .Q24H PRN; Protocol; 20 MCG/HR PRN Reason: TITRATE PER MD ORDER Ondansetron HCl (Zofran Inj) 4 mg IVP Q6 PRN PRN Reason: Nausea/Vomiting Last Admin: 02/13/17 16:26 Dose: 4 mg Pantoprazole Sodium (Protonix Inj) 40 mg IVP DAILY [facility] Last Admin: 02/18/17 10:11 Dose: 40 mg - Labs Labs: 02/18/17 05:20 02/18/17 14:10 PT 17.7 Seconds (9.9-11.8) H 02/16/17 06:08 INR 1.64 (0.93-1.08) H 02/16/17 06:08 APTT 33.6 Seconds (23.7-30.8) H 02/16/17 06:08 Attending/Attestation - Attestation I have personally seen and examined this patient.: Yes I have fully participated in the care of the patient.: Yes I have reviewed all pertinent clinical information, including history, physical exam and plan: Yes Notes (Text): I have seen and examined the patient at bedside. Agree with the above note with the following additions/ exceptions: Briefly this is 51 year old female with history of Crohn's disease, colostomy, asthma, bipolar disorder, polysubstance abuse, recent diagnoses of adenocarcinoma of the colon , psoriasis, anxiety, depression who presented with generalized weakness and leg pain. Colonoscopy revealed large bulky friable mass with severe stenosis however no biopsy was performed. Her stay was complicated by septic shock and pneumoperitoneum due to abdominal perforation and was found to have metabolic acidosis, elevated troponin, transaminitis due to shock liver, DIC, anemia, thrombocytopenia, acute kidney injury, E Fecalis bacteremia, E coli/ proteus UTI and ventilator dependent respiratory failure. Patient is DNR. Curently she is only on dobutamine for ionotropic support. Manage vent as per counseling services manager. CXR showed increase pulmonary edema. Echo revealed EF of 40% and moderately reduced RV systolic dysfunction and global hypokinesis of LV. Continue lasix. Continue meropenem. Patient is minimally sedated and appears uncomfortable. Palliative care consult pending. Abdomen is softly distended and family preferred non operative management for presumed bowel perforation. Continue protonix. Continue OGT suction. Today her Hb and platelets dropped. Will transfuse [address] Lucas. HIT antibody negative. Most likely thrombocytopenia is due to consumption coagulopathy due to sepsis. Overall prognosis is guarded. Dr Mari Kincaid
--- NOTE | 2017-02-18 18:21 | CP.PCM.PN ---
Subjective - Date & Time of Evaluation Date of Evaluation: 02/18/17 Time of Evaluation: 16:30 - Subjective Subjective: Infectious Disease Follow Up: February 18, 2017 50 yo female with history of Crohn's disease admitted for groin and abdominal pain. She was recently discharged from the hospital with doxycycline and augmentin. During the hospitalization the patient short of breath, tachycardic , and tachypnic. Patient became hypotensive and required admission to the MICU. The patient required pressors and intubation and ventilation. The patient remains on multiple pressors and received 4 units of PRBCs and FFPs. Very poor prognosis. The patient remains intubated. Little response to noxious stimuli. Her acidosis improved. Respiratory functions did show improvement. Hemodynamically staple. She remains intubated and ventilated and multiple pressors. Withdraws to pain. non-purposeful movement of extremities. Objective - Vital Signs/Intake and Output Vital Signs (last 24 hours): Temp Pulse Resp BP Pulse Ox 98 F 80 22 156/96 H 100 02/18/17 17:23 02/18/17 17:23 02/18/17 17:23 02/18/17 17:23 02/18/17 17:00 Intake and Output: 02/18/17 02/18/17 06:59 18:59 Intake Total 1275 100 Output Total 750 Balance 525 100 - Medications Medications: Current Medications Acetylcysteine (Acetylcysteine 20%) 4 ml IH [id number] [facility] Last Admin: 02/17/17 19:48 Dose: Not Given Albuterol Sulfate (Albuterol 0.083% Inhal Amarilys (2.5 Mg/3 Ml) Ud) 2.5 mg IH [id number] [facility] Last Admin: 02/18/17 15:36 Dose: 2.5 mg Arformoterol Tartrate (Brovana) 15 mcg IH [id number] [facility] Last Admin: 02/18/17 07:02 Dose: 15 mcg Budesonide (Pulmicort Respules) 0.5 mg IH [id number] [facility] Last Admin: 02/18/17 07:02 Dose: 0.5 mg Clonazepam (Klonopin) 1 mg PO BID [facility] PRN Reason: Protocol Last Admin: 02/14/17 10:00 Dose: Not Given Furosemide (Lasix) 40 mg IVP DAILY [facility] Last Admin: 02/18/17 09:27 Dose: 40 mg Gabapentin (Neurontin) 800 mg PO QID [facility] Last Admin: 02/14/17 13:29 Dose: Not Given Hydrocortisone Sodium Succinate (Solu-Cortef) 50 mg IVP Q6H [facility] Last Admin: 02/18/17 13:26 Dose: 50 mg NOREPINEPHRINE BIT/0.9 % NACL (Levophed 4 Mg/ 250 Ml Ns Premixed) 4 mg in 250 mls @ 15 mls/hr IV .[id number] PRN; Protocol; 4 MCG/MIN PRN Reason: TITRATE PER MD ORDER Last Titration: 02/17/17 09:10 Dose: 0 mcg/min, 0 mls/hr Epinephrine HCl 1 mg/ Sodium (Chloride) 51 mls @ 15.3 mls/hr IV .Q3H20M PRN; Protocol; 5 MCG/MIN PRN Reason: TITRATE PER MD ORDER Last Titration: 02/15/17 11:30 Dose: 0 mcg/min, 0 mls/hr Meropenem 1g/NS 100mL IVPB (Meropenem 1g/Ns 100ml Ivpb) 1 gm in 100 mls @ 100 mls/hr IVPB Q8 [facility] PRN Reason: Protocol Last Admin: 02/18/17 13:28 Dose: 100 mls/hr Sodium Bicarbonate 100 meq/ (Dextrose/Sodium Chloride) 1,100 mls @ 80 mls/hr IV .[id number] [facility] Last Admin: 02/16/17 15:35 Dose: Not Given Vasopressin 20 units/ Dextrose 101 mls @ 9.09 mls/hr IV .Q11H7M [facility]; 0.03 U/MIN PRN Reason: Protocol Last Titration: 02/16/17 16:00 Dose: 0 u/min, 0 mls/hr Dobutamine HCl/Dextrose (Dobutamine/Dextrose 5% 500mg/250ml) 500 mg in 250 mls @ 6.328 mls/hr IV .Q24H PRN; Protocol; 2.5 MCG/KG/MIN PRN Reason: TITRATE PER PROTOCOL Last Titration: 02/17/17 10:45 Dose: 2.5 mcg/kg/min, 6.328 mls/hr Vancomycin HCl 1.5 gm/ Sodium (Chloride) 500 mls @ 167 mls/hr IVPB Q12 [facility] PRN Reason: Protocol Last Admin: 02/18/17 10:12 Dose: 167 mls/hr Amino Acids/Electrolytes/Dextrose (Clinimix 5/20 % "E" (1000 Ml)) 1,000 mls @ 42 mls/hr IV .[id number] [facility] Dexmedetomidine HCl (Precedex 4 Mcg/Ml (100 Ml)) 400 mcg in 100 mls @ 3.865 mls /hr IV .Q24H PRN; Protocol; 0.2 MCG/KG/HR PRN Reason: Agitation Last Admin: 02/18/17 13:11 Dose: 0.2 mcg/kg/hr, 3.865 mls/hr Potassium Chloride (Potassium Chloride 20 Meq/100 Ml) 20 meq in 100 mls @ 50 mls/hr IVPB Q2H [facility] Stop: 02/18/17 18:59 Last Admin: 02/18/17 17:12 Dose: 50 mls/hr Fentanyl Citrate (Fentanyl Citrate/Sodium Chloride 1 Mg/100 Ml) 1,000 mcg in 100 mls @ 2 mls/hr IV .Q24H PRN; Protocol; 20 MCG/HR PRN Reason: TITRATE PER MD ORDER Ondansetron HCl (Zofran Inj) 4 mg IVP Q6 PRN PRN Reason: Nausea/Vomiting Last Admin: 02/13/17 16:26 Dose: 4 mg Pantoprazole Sodium (Protonix Inj) 40 mg IVP DAILY [facility] Last Admin: 02/18/17 10:11 Dose: 40 mg - Labs Labs: 02/18/17 05:20 02/18/17 14:10 PT 17.7 Seconds (9.9-11.8) H 02/16/17 06:08 INR 1.64 (0.93-1.08) H 02/16/17 06:08 APTT 33.6 Seconds (23.7-30.8) H 02/16/17 06:08 - Constitutional Appears: Non-toxic, No Acute Distress, Chronically Ill - Head Exam Head Exam: ATRAUMATIC, NORMOCEPHALIC - Eye Exam Eye Exam: EOMI, PERRL Pupil Exam: NORMAL ACCOMODATION, PERRL - ENT Exam ENT Exam: Mucous Membranes Moist, Normal External Ear Exam, TM's Normal Bilaterally - Neck Exam Neck Exam: Full ROM, Normal Inspection - Respiratory Exam Respiratory Exam: Clear to Ausculation Bilateral, NORMAL BREATHING PATTERN. absent: Rales, Rhonchi, Wheezes - Cardiovascular Exam Cardiovascular Exam: REGULAR RHYTHM, RRR, +S1, +S2 - GI/Abdominal Exam GI & Abdominal Exam: Soft, Normal Bowel Sounds. absent: Distended, Tenderness - Extremities Exam Extremities Exam: Full ROM, Normal Inspection - Neurological Exam Additional comments: AAO x 0, intubated and ventilated. withdraws to pain. Non-purposeful movement of extremities. - Psychiatric Exam Additional comments: withdraws to pain/noxious stimuli. - Skin Skin Exam: Intact, Normal Color Assessment and Plan - Assessment and Plan (Free Text) Assessment: 51 yo female currently intubated and ventilated and poorly responsive with hypotension requiring pressor support with 4 medications. Currently on Meropenem and Vancomycin. Extremely poor prognosis. Supportive care. There were concerns for abdominal perforation and findings of extensive abdominal ascites and pneumoperitoneum. Severe anemia requiring PRBC transfusions. Meropenem is a reasonable choice for generalized antibiotic coverage. Continue on meropenem for now. Supportive care. Dismal prognosis. Lactic acidosis improved but respiratory function has remained about the same or slightly better. Patient hemodynamically stable. Thank you for allowing me to participate in the care of the patient, we will follow with you.
--- NOTE | 2017-02-18 22:03 | PN ---
DATE: 02/18/2017 This is the patient's hospital visit in the intensive care unit. For Dr. Lucas. SUBJECTIVE: The patient is a 51-year-old female admitted via the Emergency Room 6 days prior for sig nificant anemia with diagnosis of cancer of the colon recently determined with the patient taking jing lgesics for her significant pain of cancer. She also suffers from bipolar disorder, Crohn disease, p olysubstance abuse. The patient had emergency surgery with colostomy placement for treatment of vlad rectal abscess in the past with mucinous adenocarcinoma diagnosed 12/08/2016 with partial omentectomy and colostomy placed Dr. Marti then. The patient is now intubated, being treated for respirat ory failure, septic shock with severe anemia with transfusions, a total of 7 units of packed cells wi on hold. Also suffering from acute kidney injury, transaminitis with a possible abdominal perfo ration, and urosepsis. PHYSICAL EXAMINATION: VITAL SIGNS: Temperature 98.4, pulse 80, respirations 24 on a vent. Blood pressure 147/101, pulse o x 92%. HEENT: The patient is intubated with no response to command to open eyes. NECK: No nodes. HEART: Tachy rate. LUNGS: Crackles at the bases. ABDOMEN: Decreased bowel sounds, firm, minimal tenderness with wincing to gentle palpation. EXTREMITIES: +1 pedal edema, left greater than right. NEUROLOGIC: Winces to pain, otherwise does not respond to questioning. SKIN: Warm and dry. LABORATORY DATA: The patient's labs were done. White blood cell count of 9.8; hemoglobin of 7.5, do wn from 8.5 yesterday; hematocrit of 22.5; platelet count of 28,000 with a chem metabolic panel showi ng a potassium of 2.8, corrected to 3.0 with a calcium of 8.2; magnesium of 1.6, improved to 2.0; AST of 229; ALT of 294. She did have HIT testing which was reported as negative on 02/13. HIV test was negative on 02/15, and hepatitis A, B, C were negatives on 02/13 also. The patient had a chest x-ray done earlier today. It was read as increasing pulmonary edema. ASSESSMENT: Septic shock secondary to abdominal perforation with urosepsis; Crohn disease; bipolar disorder; asth ma; history of polysubstance abuse; respiratory failure, intubated; acute kidney injury, improving; t ransaminitis, improving; severe thrombocytopenia; severe anemia, possibly secondary to gastrointestin al bleed; history of adenocarcinoma of the colon with colostomy, viable. PLAN: Continue supportive care. The patient is DNR. For her hypotension, she is currently on dobut amine as per the insurance account representative with no surgical intervention as per attending's conversation with maximino peoples. With this, the prognosis for this patient, unfortunately, is poor. After conversation with Dr. Lucas, we will ask for testing to include fibrinogen, fibrin split prod ucts, factors V and VII, antithrombin time with manual platelet count with transfusions as per intens ivist and with attending as indicated. Also, consider comfort measures with consult with Katie gutierrez APN, for end of life evaluation and recommendations. Also to correct her electrolyte imbalance a s per Dr. Kelley, renal. Unfortunately, the prognosis for this patient remains poor. We will monitor clinically and with labs. Norm Lees MD cc: [id number] TT: 02/18/2017 22:02:59 Confirmation # [id number] Dictation # [id number]
[2017-02-18] MEDS: DOBUTamine 500mg/250ml D5W 500 MG/250 ML BAG IV PRN (22:37)
[2017-02-19] MEDS: Fentanyl 1000mcg/100ml NS 1,000 MCG/100 ML BAG IV PRN ×3 (01:28→22:04)
[2017-02-19] MEDS: Dexmedetomidine HCl 4mcg/ml 400 MCG/100 ML BOTTLE IV PRN ×4 (01:36→21:21)
[2017-02-19] MEDS: Albuterol 0.083% Inhal Sol (2.5 mg/3 mL) UD IH SCH ×5 (03:40→19:55)
[2017-02-19] MEDS: Meropenem 1g/NS 100mL IVPB 1 GM/100 ML PIGGYBACK IVPB SCH ×3 (06:10→22:25)
[2017-02-19 06:13] LABS: ADD MANUAL DIFF? NO
[2017-02-19 06:25] LABS: BASO % 0.6 % (0.0-3.0); EOS # 0.3 (0.0-0.7); EOS % 1.5 % (1.5-5.0); GRAN # 15.01 (1.4-6.5); GRAN % 88.4 % (50.0-68.0); HEMATOCRIT 31.8 % (36.0-48.0); LYMPH # 1.6 (1.2-3.4); LYMPH % 9.3 % (22.0-35.0); MEAN CELL VOLUME 86.9 fL (80.0-105.0); MEAN CORPUSCULAR HGB CONC 33.3 g/dl (31.0-37.0); MONO % 0.2 % (1.0-6.0); RED CELL DISTRIBUTION WIDTH 17.1 % (11.5-14.5)
[2017-02-19 06:31] LABS: PLATELET COUNT 29 10^3/uL (120.0-450.0)
[2017-02-19 06:32] LABS: ALB/GLOB RATIO 0.8 (1.1-1.8); ALKALINE PHOSPHATASE 121 U/L (38-133); ALT/SGPT 197 U/L (7-56); AST/SGOT 114 U/L (15-39); BILIRUBIN,TOTAL 2.2 mg/dL (0.2-1.3); BLOOD UREA NITROGEN 38 mg/dL (7-21); CALCIUM 9.2 mg/dL (8.4-10.5); CARBON DIOXIDE 27 mmol/L (21-33); CHLORIDE 111 mmol/L (98-107); GFR AFRICAN-AMERICAN > 60; GLUCOSE,RANDOM 125 mg/dL (70-110); POTASSIUM 3.7 mmol/L (3.6-5.0); SODIUM 147 mmol/L (132-148); TOTAL PROTEIN 6.4 g/dL (5.8-8.3)
[2017-02-19] MEDS: Budesonide 0.5 mg/2 ml Inhal Susp UD IH SCH ×2 (07:37→19:56)
[2017-02-19] MEDS: Arformoterol 15 mcg/2 ml Inh Sol IH SCH ×2 (07:37→19:55)
[2017-02-19] MEDS: Vancomycin 1.5 GM in Sodium Chloride 0.9% 500 ML IVPB SCH ×2 (09:30→22:26)
--- NOTE | 2017-02-19 10:07 | CP.PCM.PN ---
<Melchor Pringle - Last Filed: 02/19/17 14:20> Subjective - Date & Time of Evaluation Date of Evaluation: 02/19/17 Time of Evaluation: 10:04 - Subjective Subjective: Patient seen at bedside. Remains intubated on PRVC. Sedated on Fentanyl and Precedex. Eyes are open but do not track. She does not respond to commands. Patient withdraws from pain. Continued on Dobutamine. Objective - Vital Signs/Intake and Output Vital Signs (last 24 hours): Temp Pulse Resp BP Pulse Ox 101.8 F H 104 H 30 H 152/110 H 93 L 02/19/17 09:30 02/19/17 09:30 02/19/17 09:30 02/19/17 09:30 02/19/17 09:30 Intake and Output: 02/19/17 02/19/17 06:59 18:59 Intake Total 1065 100 Balance 1065 100 - Medications Medications: Current Medications Acetylcysteine (Acetylcysteine 20%) 4 ml IH [id number] [facility] Last Admin: 02/17/17 19:48 Dose: Not Given Albuterol Sulfate (Albuterol 0.083% Inhal Amarilys (2.5 Mg/3 Ml) Ud) 2.5 mg IH [id number] [facility] Last Admin: 02/19/17 07:37 Dose: 2.5 mg Arformoterol Tartrate (Brovana) 15 mcg IH [id number] [facility] Last Admin: 02/19/17 07:37 Dose: 15 mcg Budesonide (Pulmicort Respules) 0.5 mg IH [id number] [facility] Last Admin: 02/19/17 07:37 Dose: 0.5 mg Clonazepam (Klonopin) 1 mg PO BID [facility] PRN Reason: Protocol Last Admin: 02/14/17 10:00 Dose: Not Given Furosemide (Lasix) 40 mg IVP DAILY [facility] Last Admin: 02/19/17 09:13 Dose: 40 mg Gabapentin (Neurontin) 800 mg PO QID [facility] Last Admin: 02/14/17 13:29 Dose: Not Given Hydrocortisone Sodium Succinate (Solu-Cortef) 50 mg IVP Q6H [facility] Last Admin: 02/19/17 09:14 Dose: 50 mg NOREPINEPHRINE BIT/0.9 % NACL (Levophed 4 Mg/ 250 Ml Ns Premixed) 4 mg in 250 mls @ 15 mls/hr IV .[id number] PRN; Protocol; 4 MCG/MIN PRN Reason: TITRATE PER MD ORDER Last Titration: 02/17/17 09:10 Dose: 0 mcg/min, 0 mls/hr Epinephrine HCl 1 mg/ Sodium (Chloride) 51 mls @ 15.3 mls/hr IV .Q3H20M PRN; Protocol; 5 MCG/MIN PRN Reason: TITRATE PER MD ORDER Last Titration: 02/15/17 11:30 Dose: 0 mcg/min, 0 mls/hr Meropenem 1g/NS 100mL IVPB (Meropenem 1g/Ns 100ml Ivpb) 1 gm in 100 mls @ 100 mls/hr IVPB Q8 [facility] PRN Reason: Protocol Last Admin: 02/19/17 06:10 Dose: 100 mls/hr Sodium Bicarbonate 100 meq/ (Dextrose/Sodium Chloride) 1,100 mls @ 80 mls/hr IV .[id number] [facility] Last Admin: 02/16/17 15:35 Dose: Not Given Vasopressin 20 units/ Dextrose 101 mls @ 9.09 mls/hr IV .[id number] [facility]; 0.03 U/MIN PRN Reason: Protocol Last Titration: 02/16/17 16:00 Dose: 0 u/min, 0 mls/hr Dobutamine HCl/Dextrose (Dobutamine/Dextrose 5% 500mg/250ml) 500 mg in 250 mls @ 6.328 mls/hr IV .Q24H PRN; Protocol; 2.5 MCG/KG/MIN PRN Reason: TITRATE PER PROTOCOL Last Admin: 02/18/17 22:37 Dose: 2.5 mcg/kg/min, 6.328 mls/hr Vancomycin HCl 1.5 gm/ Sodium (Chloride) 500 mls @ 167 mls/hr IVPB Q12 [facility] PRN Reason: Protocol Last Admin: 02/19/17 09:30 Dose: 167 mls/hr Amino Acids/Electrolytes/Dextrose (Clinimix 5/20 % "E" (1000 Ml)) 1,000 mls @ 42 mls/hr IV .[id number] [facility] Last Admin: 02/18/17 20:00 Dose: 42 mls/hr Dexmedetomidine HCl (Precedex 4 Mcg/Ml (100 Ml)) 400 mcg in 100 mls @ 3.865 mls /hr IV .Q24H PRN; Protocol; 0.2 MCG/KG/HR PRN Reason: Agitation Last Admin: 02/19/17 09:04 Dose: 0.8 mcg/kg/hr, 15.458 mls/hr Fentanyl Citrate (Fentanyl Citrate/Sodium Chloride 1 Mg/100 Ml) 1,000 mcg in 100 mls @ 2 mls/hr IV .Q24H PRN; Protocol; 20 MCG/HR PRN Reason: TITRATE PER MD ORDER Last Admin: 02/19/17 09:52 Dose: 100 mcg/hr, 10 mls/hr Ondansetron HCl (Zofran Inj) 4 mg IVP Q6 PRN PRN Reason: Nausea/Vomiting Last Admin: 02/13/17 16:26 Dose: 4 mg Pantoprazole Sodium (Protonix Inj) 40 mg IVP DAILY [facility] Last Admin: 02/19/17 09:15 Dose: 40 mg - Labs Labs: 02/19/17 06:05 02/19/17 06:05 PT 17.7 Seconds (9.9-11.8) H 02/16/17 06:08 INR 1.64 (0.93-1.08) H 02/16/17 06:08 APTT 33.6 Seconds (23.7-30.8) H 02/16/17 06:08 - Head Exam Head Exam: ATRAUMATIC, NORMOCEPHALIC - Eye Exam Eye Exam: PERRL. absent: EOMI - ENT Exam ENT Exam: Mucous Membranes Dry - Neck Exam Neck Exam: absent: Lymphadenopathy - Respiratory Exam Respiratory Exam: Rhonchi - Cardiovascular Exam Cardiovascular Exam: RRR, +S1, +S2 - GI/Abdominal Exam GI & Abdominal Exam: Soft. absent: Tenderness - Extremities Exam Extremities Exam: Full ROM - Neurological Exam Neurological Exam: Alert, Awake, Oriented x3 - Skin Skin Exam: Dry, Intact Assessment and Plan - Assessment and Plan (Free Text) Assessment: 51 year old female with past medical history of Crohns disease, asthma, bipolar disorder, polysubstance abuse and recent diagnoses of adenocarcinoma of the colon is in septic shock currently in ICU. Patient remains intubated. Remains intubate on PRVC. Sedated on Fentanyl, Precedex. Continued on Dobutamine. Septic shock 2/2 abdominal perforation complicated by ESBL urosepsis - manage per CCU team - continue Meropenem - ID following - Palliative care is following and discussing end of life care with patient's family. acute kidney injury 2/2 septic shock, multi-organ dysfunction syndrome - renal function is improving - avoiding nephrotoxic drugs when possible - maintaining MAP >65 transaminitis 2/2 shock liver in setting of septic shock - liver enzymes trending down - continue to maintain MAP >65 - monitor liver enzymes daily thrombocytopenia 2/2 sepsis, bone marrow suppression - transfuse per ICU team - daily CBC - SCD's - SHARON panel negative bacteremia - E. faecalis in blood culture - continue meropenem, vanc per ID UTI - Proteus mirabilis, ESBL in urine - continue abx as above Adenocarcinoma of colon: - heme/onc following - Ct of chest shows interstitial infiltrates with extensive bibasilar consolidations. Extensive B/L and medistinal LAD. <Mari Kincaid B - Last Filed: 02/19/17 15:09> Objective - Vital Signs/Intake and Output Vital Signs (last 24 hours): Temp Pulse Resp BP Pulse Ox 101.8 F H 88 30 H 152/110 H 93 L 02/19/17 09:30 02/19/17 13:30 02/19/17 09:30 02/19/17 09:30 02/19/17 09:30 Intake and Output: 02/19/17 02/19/17 06:59 18:59 Intake Total 1065 200 Balance 1065 200 - Medications Medications: Current Medications Acetylcysteine (Acetylcysteine 20%) 4 ml IH [id number] [facility] Last Admin: 02/17/17 19:48 Dose: Not Given Albuterol Sulfate (Albuterol 0.083% Inhal Amarilys (2.5 Mg/3 Ml) Ud) 2.5 mg IH [id number] [facility] Last Admin: 02/19/17 12:05 Dose: 2.5 mg Arformoterol Tartrate (Brovana) 15 mcg IH [id number] [facility] Last Admin: 02/19/17 07:37 Dose: 15 mcg Budesonide (Pulmicort Respules) 0.5 mg IH [id number] [facility] Last Admin: 02/19/17 07:37 Dose: 0.5 mg Clonazepam (Klonopin) 1 mg PO BID [facility] PRN Reason: Protocol Last Admin: 02/14/17 10:00 Dose: Not Given Furosemide (Lasix) 40 mg IVP DAILY [facility] Last Admin: 02/19/17 09:13 Dose: 40 mg Hydrocortisone Sodium Succinate (Solu-Cortef) 50 mg IVP Q12H [facility] Last Admin: 02/19/17 09:45 Dose: Not Given Epinephrine HCl 1 mg/ Sodium (Chloride) 51 mls @ 15.3 mls/hr IV .Q3H20M PRN; Protocol; 5 MCG/MIN PRN Reason: TITRATE PER MD ORDER Last Titration: 02/15/17 11:30 Dose: 0 mcg/min, 0 mls/hr Meropenem 1g/NS 100mL IVPB (Meropenem 1g/Ns 100ml Ivpb) 1 gm in 100 mls @ 100 mls/hr IVPB Q8 [facility] PRN Reason: Protocol Last Admin: 02/19/17 14:18 Dose: 100 mls/hr Dobutamine HCl/Dextrose (Dobutamine/Dextrose 5% 500mg/250ml) 500 mg in 250 mls @ 6.328 mls/hr IV .Q24H PRN; Protocol; 2.5 MCG/KG/MIN PRN Reason: TITRATE PER PROTOCOL Last Admin: 02/18/17 22:37 Dose: 2.5 mcg/kg/min, 6.328 mls/hr Vancomycin HCl 1.5 gm/ Sodium (Chloride) 500 mls @ 167 mls/hr IVPB Q12 [facility] PRN Reason: Protocol Last Admin: 02/19/17 09:30 Dose: 167 mls/hr Dexmedetomidine HCl (Precedex 4 Mcg/Ml (100 Ml)) 400 mcg in 100 mls @ 3.865 mls /hr IV .Q24H PRN; Protocol; 0.2 MCG/KG/HR PRN Reason: Agitation Last Admin: 02/19/17 14:19 Dose: 0.8 mcg/kg/hr, 15.458 mls/hr Fentanyl Citrate (Fentanyl Citrate/Sodium Chloride 1 Mg/100 Ml) 1,000 mcg in 100 mls @ 2 mls/hr IV .Q24H PRN; Protocol; 20 MCG/HR PRN Reason: TITRATE PER MD ORDER Last Admin: 02/19/17 09:52 Dose: 100 mcg/hr, 10 mls/hr Fluconazole (Diflucan Iv 200 Mg/100 Ml Ns) 100 mls @ 100 mls/hr IVPB DAILY [facility] PRN Reason: Protocol Last Admin: 02/19/17 14:18 Dose: 100 mls/hr Amino Acids/Electrolytes/Dextrose (Clinimix 5/20 % "E" (2000 Ml)) 2,000 mls @ 83.333 mls/hr IV .Q24H [facility] Metronidazole (Flagyl) 500 mg in 100 mls @ 100 mls/hr IVPB Q6 [facility] PRN Reason: Protocol Ondansetron HCl (Zofran Inj) 4 mg IVP Q6 PRN PRN Reason: Nausea/Vomiting Last Admin: 02/13/17 16:26 Dose: 4 mg Pantoprazole Sodium (Protonix Inj) 40 mg IVP DAILY [facility] Last Admin: 02/19/17 09:15 Dose: 40 mg - Labs Labs: 02/19/17 06:05 02/19/17 06:05 PT 17.7 Seconds (9.9-11.8) H 02/16/17 06:08 INR 1.64 (0.93-1.08) H 02/16/17 06:08 APTT 33.6 Seconds (23.7-30.8) H 02/16/17 06:08 Attending/Attestation - Attestation I have personally seen and examined this patient.: Yes I have fully participated in the care of the patient.: Yes I have reviewed all pertinent clinical information, including history, physical exam and plan: Yes Notes (Text): I have seen and examined the patient at bedside. Agree with the above note with the following additions/ exceptions: Briefly this is 51 year old female with history of Crohn's disease, colostomy, asthma, bipolar disorder, polysubstance abuse, recent diagnoses of adenocarcinoma of the colon , psoriasis, anxiety, depression who presented with generalized weakness and leg pain. Colonoscopy revealed large bulky friable mass with severe stenosis however no biopsy was performed. Her stay was complicated by septic shock and pneumoperitoneum due to abdominal perforation and was found to have metabolic acidosis, elevated troponin, transaminitis due to shock liver, DIC, anemia, thrombocytopenia, acute kidney injury, E Fecalis bacteremia, E coli/ proteus UTI and ventilator dependent respiratory failure. Patient is DNR. Currently she is febrile and had worsening of leukocytosis. CT abdomen/pelvis pending. She remains on dobutamine for ionotropic support and FIO2 of 60%. 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 CXR showed no change in pulmonary edema. Echo revealed EF of 40% and moderately reduced RV systolic dysfunction and global hypokinesis of LV. Continue lasix. Continue meropenem. Patient is sedated. Palliative care consult pending. Abdomen is distended and family preferred non operative management for presumed bowel perforation. Continue protonix. Continue OGT suction. Yesterday her Hb dropped therefore 2 units of prbc was given along with 1 unit of platelets. HIT antibody negative. Most likely thrombocytopenia is due to consumption coagulopathy due to sepsis. CT head is also pending. Overall prognosis is guarded. Dr Mari Kincaid
--- NOTE | 2017-02-19 10:51 | RAD ---
HISTORY: intubated COMPARISON: 02/18/2017 FINDINGS: LUNGS: No change in the pattern of pulmonary edema. No change in position of central lines and tubes PLEURA: No significant pleural effusion identified, no pneumothorax apparent. CARDIOVASCULAR: Normal. OSSEOUS STRUCTURES: No significant abnormalities. VISUALIZED UPPER ABDOMEN: Normal. OTHER FINDINGS: None. IMPRESSION: No change in the pattern of pulmonary edema. No change in position of central lines and tubes
--- NOTE | 2017-02-19 11:36 | PN ---
DATE: 02/19/2017 The patient is seen and examined at bedside. She is sedated with fentanyl 75 mcg per hour and Precedex at 0.5 mcg per kg per hour. PHYSICAL EXAMINATION: VITAL SIGNS: The patient is on PRVC 350/22/7/50%. On that setting, her vital signs as follows: Blood pressure 146/103, heart rate 107, end-tidal CO2 42, respiratory rate 22, and oxygen saturation 99%. HEAD AND NECK: Atraumatic. LUNGS: A few crackles bibasilar. HEART: Regular rate and rhythm. S1, S2 normal. ABDOMEN: Soft; however, a little bit more tense and distended. No bowel sounds. Colostomy bag with some amount of fecal matter, and looked viable and pink. SKIN: Moist. PSYCHIATRIC: The patient is sedated. MUSCULOSKELETAL: 1 to 2+ bilateral pedal and ankle edema. LABORATORY DATA: Sodium 147, potassium 3.7, chloride 111, carbon dioxide 27, creatinine 0.8, glucose 125. AST 114, ALT 197. WBC is 17 (up from 9.8), hemoglobin 10.6, platelet count 35. ABG is pending today. MEDICATIONS: DuoNeb every 4 hours, TPN, Brovana, budesonide, Precedex, dobutamine stopped, epinephrine stopped, fentanyl 75 mL per hour, Lasix 40 mg IV daily, hydrocortisone 50 mg IV q. 6 (tapering down to q. 12 hours), meropenem , norepinephrine stopped, Zofran p.r.n., Protonix, vancomycin, vasopressin stopped. ASSESSMENT AND PLAN: This is a 51-year-old lady recovering from septic shock with multiorgan dysfunction syndrome secondary to perforated viscus. Even though she is off of vasopressor support and had a period of substantial clinical improvement with resolution of multiple organ dysfunction syndrome and decrease in ventilatory support requirement, at present time, the patient is febrile and her leukocytosis sharply increased. That is concerning for intraabdominal abscess development versus secondary bacterial peritonitis. Acalculous cholecystitis, C. diff colitis is also on differential. We will also remove CVL and request PICC line. Will proceed with CAT scan of the belly ( abdomen and pelvis). While at it, we will also proceed with CAT scan of the head as patient's mental status did not improve despite substantial decrement in sedation requirement. Stool for C.diff, repeated blood culture, b-D-1,3 glucan, empiric Diflucan tx, abdo US and potentially HIDA scan (if CT abdo/ pelvis wont reveal new findings) will be ordered. Surgical and ID followup will of course be appreciated. 1. Neurologic: The patient is sedated. Sedation requirement decreased. Her neuro status; however, did not recover. Given low platelet count and no improvement in mental status, we will proceed with CAT scan of the head. If nondiagnostic/nonrevealing, will consider EEG. 2. Pulmonary: Will continue with protective lung ventilation strategy. Will continue with conservative fluid and oxygen management. Will continue with head of bed elevated more than 35 degrees. Will continue with daily sedation vacation and weaning trials. Today, patient did not tolerate weaning trial and was put back on PRVC. 3. Cardiovascular: We will try to taper off dobutamine. We will continue with pre- and afterload reduction with diuresis as much as hemodynamics allows and positive pressure ventilation, respectively. PPV provides afterload reduction as well. May consider enalaprilat IV for afterload reduction. 4. Gastrointestinal: The patient is on TPN, GI prophylaxis. CAT scan of the abdomen and pelvis will be done to rule out intraabdominal abscess or ascites that would suggest a secondary bacterial peritonitis-->if non revealing will consider abdo US+/-HIDA scan. The patient is on broad-spectrum antibiotics. 5. Infectious disease: The patient has an increased leukocytosis and is febrile. CAT scan of the abdomen and pelvis will be done to rule out intra- abdominal abscess or infected ascites. The patient is on TPN, thus, I will consider starting patient on antifungal as well. I will also order b-D-1,3 glucan level. I will repeat blood culture, urine culture and procalcitonin level. Will change CVL to PICC 6. Endocrine: We will continue with blood glucose within 140-180 range. Will continue with tapering off stress dose steroids. 7. Will continue with mechanical DVT prophylaxis. Will continue with gastrointestinal prophylaxis. 8. Heme/onc: The patient has thrombocytopenia most likely related to severe sepsis and related to it bone marrow suppression. No overt bleeding. Hemoglobin stable. Leukocytosis likely related to severe sepsis. ccm time 40 min Van Lopez MD cc: [id number] TT: 02/19/2017 11:35:25 Confirmation # [id number] Dictation # [id number] mn MTDD
--- NOTE | 2017-02-19 11:47 | CP.PCM.PN ---
Subjective - Date & Time of Evaluation Date of Evaluation: 02/19/17 Time of Evaluation: 11:43 - Subjective Subjective: Surgery: Dr. Balderrama Patient remains intubated in ICU. Mental status poor although sedation decreased. Patient requiring less vent support. Patient weaned from blood pressure support. Per nursing report, patient febrile overnight. Objective - Vital Signs/Intake and Output Vital Signs (last 24 hours): Temp Pulse Resp BP Pulse Ox 101.8 F H 104 H 30 H 152/110 H 93 L 02/19/17 09:30 02/19/17 09:30 02/19/17 09:30 02/19/17 09:30 02/19/17 09:30 Intake and Output: 02/19/17 02/19/17 06:59 18:59 Intake Total 1065 100 Balance 1065 100 - Medications Medications: Current Medications Acetylcysteine (Acetylcysteine 20%) 4 ml IH [id number] [facility] Last Admin: 02/17/17 19:48 Dose: Not Given Albuterol Sulfate (Albuterol 0.083% Inhal Amarilys (2.5 Mg/3 Ml) Ud) 2.5 mg IH [id number] [facility] Last Admin: 02/19/17 07:37 Dose: 2.5 mg Arformoterol Tartrate (Brovana) 15 mcg IH [id number] [facility] Last Admin: 02/19/17 07:37 Dose: 15 mcg Budesonide (Pulmicort Respules) 0.5 mg IH [id number] [facility] Last Admin: 02/19/17 07:37 Dose: 0.5 mg Clonazepam (Klonopin) 1 mg PO BID [facility] PRN Reason: Protocol Last Admin: 02/14/17 10:00 Dose: Not Given Furosemide (Lasix) 40 mg IVP DAILY [facility] Last Admin: 02/19/17 09:13 Dose: 40 mg Gabapentin (Neurontin) 800 mg PO QID [facility] Last Admin: 02/14/17 13:29 Dose: Not Given Hydrocortisone Sodium Succinate (Solu-Cortef) 50 mg IVP Q12H [facility] NOREPINEPHRINE BIT/0.9 % NACL (Levophed 4 Mg/ 250 Ml Ns Premixed) 4 mg in 250 mls @ 15 mls/hr IV .[id number] PRN; Protocol; 4 MCG/MIN PRN Reason: TITRATE PER MD ORDER Last Titration: 02/17/17 09:10 Dose: 0 mcg/min, 0 mls/hr Epinephrine HCl 1 mg/ Sodium (Chloride) 51 mls @ 15.3 mls/hr IV .Q3H20M PRN; Protocol; 5 MCG/MIN PRN Reason: TITRATE PER MD ORDER Last Titration: 02/15/17 11:30 Dose: 0 mcg/min, 0 mls/hr Meropenem 1g/NS 100mL IVPB (Meropenem 1g/Ns 100ml Ivpb) 1 gm in 100 mls @ 100 mls/hr IVPB Q8 [facility] PRN Reason: Protocol Last Admin: 02/19/17 06:10 Dose: 100 mls/hr Sodium Bicarbonate 100 meq/ (Dextrose/Sodium Chloride) 1,100 mls @ 80 mls/hr IV .[id number] [facility] Last Admin: 02/16/17 15:35 Dose: Not Given Vasopressin 20 units/ Dextrose 101 mls @ 9.09 mls/hr IV .Q11H7M [facility]; 0.03 U/MIN PRN Reason: Protocol Last Titration: 02/16/17 16:00 Dose: 0 u/min, 0 mls/hr Dobutamine HCl/Dextrose (Dobutamine/Dextrose 5% 500mg/250ml) 500 mg in 250 mls @ 6.328 mls/hr IV .Q24H PRN; Protocol; 2.5 MCG/KG/MIN PRN Reason: TITRATE PER PROTOCOL Last Admin: 02/18/17 22:37 Dose: 2.5 mcg/kg/min, 6.328 mls/hr Vancomycin HCl 1.5 gm/ Sodium (Chloride) 500 mls @ 167 mls/hr IVPB Q12 [facility] PRN Reason: Protocol Last Admin: 02/19/17 09:30 Dose: 167 mls/hr Amino Acids/Electrolytes/Dextrose (Clinimix 5/20 % "E" (1000 Ml)) 1,000 mls @ 42 mls/hr IV .[id number] [facility] Last Admin: 02/18/17 20:00 Dose: 42 mls/hr Dexmedetomidine HCl (Precedex 4 Mcg/Ml (100 Ml)) 400 mcg in 100 mls @ 3.865 mls /hr IV .Q24H PRN; Protocol; 0.2 MCG/KG/HR PRN Reason: Agitation Last Admin: 02/19/17 09:04 Dose: 0.8 mcg/kg/hr, 15.458 mls/hr Fentanyl Citrate (Fentanyl Citrate/Sodium Chloride 1 Mg/100 Ml) 1,000 mcg in 100 mls @ 2 mls/hr IV .Q24H PRN; Protocol; 20 MCG/HR PRN Reason: TITRATE PER MD ORDER Last Admin: 02/19/17 09:52 Dose: 100 mcg/hr, 10 mls/hr Fluconazole (Diflucan Iv 200 Mg/100 Ml Ns) 100 mls @ 100 mls/hr IVPB DAILY [facility] PRN Reason: Protocol Ondansetron HCl (Zofran Inj) 4 mg IVP Q6 PRN PRN Reason: Nausea/Vomiting Last Admin: 02/13/17 16:26 Dose: 4 mg Pantoprazole Sodium (Protonix Inj) 40 mg IVP DAILY [facility] Last Admin: 02/19/17 09:15 Dose: 40 mg - Labs Labs: 02/19/17 06:05 02/19/17 06:05 PT 17.7 Seconds (9.9-11.8) H 02/16/17 06:08 INR 1.64 (0.93-1.08) H 02/16/17 06:08 APTT 33.6 Seconds (23.7-30.8) H 02/16/17 06:08 - Constitutional Appears: Cachectic, Chronically Ill - Head Exam Head Exam: ATRAUMATIC - Eye Exam Eye Exam: Scleral icterus - ENT Exam ENT Exam: Mucous Membranes Moist Additional comments: ET and OGT in place. OGT on suction with bilious output - Respiratory Exam Additional comments: mechanical ventilation, FIO2 50%, PEEP 7 - Cardiovascular Exam Cardiovascular Exam: Tachycardia, REGULAR RHYTHM - GI/Abdominal Exam GI & Abdominal Exam: Distended, Guarding, Soft. absent: Rebound - Extremities Exam Additional comments: + pedal pulse strong, extremities cool 1+ edema - Skin Skin Exam: Dry, Warm Assessment and Plan - Assessment and Plan (Free Text) Assessment: 51 y/o female with septic shock and multiorgan failure, now with new onset fever Plan: -fever etiology multifactorial -possible pneumonia vs intra-abdominal abscess vs consideration of cholecystitis 2/2 TPN -will f/u CT scan -pending results determine surgical recommendation -patient overall clinical status guarded -hgb improved after transfusion, transfuse prn -daily labs -OGT on suction -d/w Dr. Kaia Ray PGY1
[2017-02-19 12:19] LABS: ABG MECHANICAL RATE 22; ARTERIAL BLOOD GAS HCO3 22.6 mmol/L (21-28); ARTERIAL BLOOD GAS PH 7.36 (7.35-7.45); ATERIAL BLOOD GAS PEEP 7
[2017-02-19 12:28] LABS: CHOLESTEROL 143 mg/dL (130-200)
--- NOTE | 2017-02-19 12:36 | PN ---
DATE: 02/19/2017 SUBJECTIVE: The patient is seen in the ICU. She is unresponsive, remains on mechanical ventilation. She remains on IV dobutamine at 2.5 mcg per kilogram per minute. The patient spiked a temperature. T-max was 101.8. Also, her WBC count has gone up. It has gone up from 9.8-17,000. PHYSICAL EXAMINATION: GENERAL: Middle-aged lady lying in bed in the ICU, unresponsive, on mechanical ventilation. VITAL SIGNS: Blood pressure 152/110, heart rate 104, respiratory rate 30, temperature 101.8. HEENT: Normocephalic, atraumatic, positive pallor, positive ecchymosis. NECK: Supple, no JVD. LUNGS: Bilateral equal air entry, bilateral rhonchi. CARDIAC: S1, S2, regular rate and rhythm, no murmur, no rub. ABDOMEN: Obese, distended, soft, firm, bowel sounds absent. EXTREMITIES: 1+ pitting edema of the lower extremities, 1+ pitting edema of the upper extremities. INTAKE AND OUTPUT: 3217/1475. LABORATORY DATA: WBC 17,000, hemoglobin 10.6, hematocrit 32, platelets 29. Sodium 147, potassium 3. 7, chloride 101, CO2 27, BUN 38, creatinine 0.8, glucose 125, calcium 9.2, total bili 2.2. AST 114, ALT 197, albumin 2.9, corrected calcium is 10. CURRENT MEDICATIONS: Mucomyst, albuterol, Brovana, hyperal at 42, Diflucan, dobutamine, fentanyl, Kl onopin, Lasix 40 IV daily, meropenem 1 gram q. 8, gabapentin on hold, Precedex, Protonix, epinephrine , vancomycin 1 gram q. 12, Zofran. ASSESSMENT: 1. Critically ill patient, clinically doing poorly today. The patient failed CPAP trial yesterday. She also now has a new fever spike. Temperature of 101.8. Her WBC count is higher. 2. Acute abdomen, belly appears firmer today. No bowel sounds. She has evidence of free air in the abdomen. 3. Respiratory failure, remains ventilator dependent. 4. Sepsis, Escherichia coli urinary tract infection, intraabdominal sepsis. 5. Resolved acute kidney injury, largely prerenal azotemia plus acute tubular necrosis in the settin g of sepsis. 6. Hypernatremia. 7. Hypokalemia. 8. Thrombocytopenia, disseminated intravascular anticoagulation suspect. 9 Metastatic colon cancer. 10. History of intraabdominal abscess, laparotomy, hemicolectomy, colostomy. PLAN: 1. The patient seems to be deteriorating. Clinically, there has been a downtown. She has a new fev er, leukocytosis. 2. The patient is DNR, perhaps discussion to be had with family again regarding withdrawal of care. 3. Continue antibiotics for the time being. 4. Dose all antibiotics for creatinine clearance about 50 mL per minute. 5. Long discussion with ICU team, long discussion with at bedside. At this time, medical fu tility should be considered. More than 35 minutes was spent in the care of this critically ill patient. Lucinda Kelley MD cc: [id number] TT: 02/19/2017 12:35:51 Confirmation # [id number] Dictation # [id number] tn
--- NOTE | 2017-02-19 13:04 | CT ---
PROCEDURE: CT HEAD WITHOUT CONTRAST. HISTORY: Right eye transiently deviating COMPARISON: 10/08/2016 TECHNIQUE: Axial computed tomography images were obtained through the head/brain without intravenous contrast. Radiation dose: Total exam DLP = 756.91 mGy-cm. This CT exam was performed using one or more of the following dose reduction techniques: Automated exposure control, adjustment of the mA and/or kV according to patient size, and/or use of iterative reconstruction technique. FINDINGS: HEMORRHAGE: No intracranial hemorrhage. BRAIN: Examination is of suboptimal diagnostic quality due to motion degraded images. Allowing for this, there is no mass, mass effect or abnormal extra-axial fluid collection VENTRICLES: The ventricles are normal in size, shape and configuration. CALVARIUM: The skull base and calvarium are normal. PARANASAL SINUSES: There is chronic maxillary and sphenoid sinusitis. The remaining included paranasal sinuses are clear. MASTOID AIR CELLS: Predominantly clear. OTHER FINDINGS: None. IMPRESSION: Suboptimal diagnostic quality due to motion degraded images, allowing for this, no acute intracranial abnormality.
[2017-02-19 14:03] LABS: PH,URINE 6.5 (4.7-8.0); URINE BILIRUBIN NEGATIVE (NEGATIVE); URINE BLOOD MODERATE (NEGATIVE); URINE GLUCOSE (UA) NEGATIVE (NEGATIVE); URINE KETONE NEGATIVE (NEGATIVE); URINE LEUKOCYTE ESTERASE NEGATIVE Leu/uL (NEGATIVE); URINE PROTEIN 100 mg/dL (<30 mg/dL); URINE UROBILINOGEN 0.2 E.U./dL (<1 E.U./dL)
[2017-02-19 14:04] LABS: URINE APPEARANCE SL CLOUDY (CLEAR); URINE COLOR YELLOW (YELLOW)
[2017-02-19 14:10] LABS: URINE BACTERIA FEW (NEG); URINE RBC 15 - 20 /hpf (0-2); URINE WBC 0 - 2 /hpf (0-6)
--- NOTE | 2017-02-19 14:12 | CT ---
PROCEDURE: CT Abdomen and Pelvis without intravenous contrast HISTORY: Firmer abdomen worsening clinically. abscess? COMPARISON: 02/14/2017 TECHNIQUE: Without contrast. Contrast Dose: Radiation dose: Total exam DLP = mGy-cm. This CT exam was performed using one or more of the following dose reduction techniques: Automated exposure control, adjustment of the mA and/or kV according to patient size, and/or use of iterative reconstruction technique. FINDINGS: LOWER THORAX: There is bibasilar consolidation and small pleural effusions similar to the previous exam. LIVER: Unremarkable. No gross lesion or ductal dilatation. GALLBLADDER AND BILE DUCTS: Gallbladder is distended PANCREAS: Unremarkable. No gross lesion or ductal dilatation. SPLEEN: Unremarkable. ADRENALS: Unremarkable. No mass. KIDNEYS AND URETERS: There is chronic dilatation of the right renal collecting system VASCULATURE: Unremarkable. No aortic aneurysm. BOWEL: No evidence of obstruction. Left lower quadrant ostomy. APPENDIX: Unremarkable. Normal appendix. PERITONEUM: Severe ascites and anasarca LYMPH NODES: Retroperitoneal pelvic and inguinal adenopathy BLADDER: Unremarkable. REPRODUCTIVE: Unremarkable. BONES: No acute fracture. OTHER FINDINGS: None. IMPRESSION: No significant change in ascites and anasarca. No change in lower lobe consolidation and pleural effusions. No change in adenopathy
[2017-02-19] MEDS: Fluconazole IV 200mg/100 ml NS 100 ML IVPB SCH (14:18)
[2017-02-19] MEDS: EnalaprilAT 1.25 mg/ml Inj IVP SCH ×2 (16:00→23:05)
[2017-02-19] MEDS: metroNIDAZOLE IV 500 mg/100 ml 500 MG/100 ML BAG IVPB SCH (18:30)
--- NOTE | 2017-02-19 19:44 | CP.PCM.PN ---
Subjective - Date & Time of Evaluation Date of Evaluation: 02/19/17 Time of Evaluation: 18:30 - Subjective Subjective: Infectious Disease Follow Up: February 19, 2017 50 yo female with history of Crohn's disease admitted for groin and abdominal pain. She was recently discharged from the hospital with Doxycycline and Augmentin. During the hospitalization the patient short of breath, tachycardic , and tachypnic. Patient became hypotensive and required admission to the MICU. The patient required pressors and intubation and ventilation. The patient remains on multiple pressors and received 4 units of PRBCs and FFPs. Very poor prognosis. The patient remains intubated. Little response to noxious stimuli. Her acidosis improved. Respiratory functions did show improvement. Hemodynamically staple. She remains intubated and ventilated and multiple pressors. Withdraws to pain. non-purposeful movement of extremities. Objective - Vital Signs/Intake and Output Vital Signs (last 24 hours): Temp Pulse Resp BP Pulse Ox 99.6 F 91 H 20 139/78 100 02/19/17 16:00 02/19/17 16:46 02/19/17 16:00 02/19/17 16:46 02/19/17 16:46 Intake and Output: 02/19/17 02/20/17 18:59 06:59 Intake Total 200 Balance 200 - Medications Medications: Current Medications Acetylcysteine (Acetylcysteine 20%) 4 ml [facility] [id number] [facility] Last Admin: 02/17/17 19:48 Dose: Not Given Albuterol Sulfate (Albuterol 0.083% Inhal Amarilys (2.5 Mg/3 Ml) Ud) 2.5 mg [facility]H [id number] [facility] Last Admin: 02/19/17 15:41 Dose: 2.5 mg Arformoterol Tartrate (Brovana) 15 mcg [facility] [id number] [facility] Last Admin: 02/19/17 07:37 Dose: 15 mcg Budesonide (Pulmicort Respules) 0.5 mg [facility]H [id number] [facility] Last Admin: 02/19/17 07:37 Dose: 0.5 mg Clonazepam (Klonopin) 1 mg PO BID [facility] PRN Reason: Protocol Last Admin: 02/14/17 10:00 Dose: Not Given Enalaprilat (Vasotec Iv) 1.25 mg IVP Q6H [facility] Last Admin: 02/19/17 16:00 Dose: 1.25 mg Furosemide (Lasix) 40 mg IVP DAILY [facility] Last Admin: 02/19/17 09:13 Dose: 40 mg Hydrocortisone Sodium Succinate (Solu-Cortef) 50 mg IVP Q12H [facility] Last Admin: 02/19/17 09:45 Dose: Not Given Meropenem 1g/NS 100mL IVPB (Meropenem 1g/Ns 100ml Ivpb) 1 gm in 100 mls @ 100 mls/hr IVPB Q8 [facility]OU[facility] PRN Reason: Protocol Last Admin: 02/19/17 14:18 Dose: 100 mls/hr Dobutamine HCl/Dextrose (Dobutamine/Dextrose 5% 500mg/250ml) 500 mg in 250 mls @ 6.328 mls/hr IV .Q24H PRN; Protocol; 2.5 MCG/KG/MIN PRN Reason: TITRATE PER PROTOCOL Last Admin: 02/18/17 22:37 Dose: 2.5 mcg/kg/min, 6.328 mls/hr Vancomycin HCl 1.5 gm/ Sodium (Chloride) 500 mls @ 167 mls/hr IVPB Q12 [facility]OU[facility] PRN Reason: Protocol Last Admin: 02/19/17 09:30 Dose: 167 mls/hr Dexmedetomidine HCl (Precedex 4 Mcg/Ml (100 Ml)) 400 mcg in 100 mls @ 3.865 mls /hr IV .Q24H PRN; Protocol; 0.2 MCG/KG/HR PRN Reason: Agitation Last Admin: 02/19/17 14:19 Dose: 0.8 mcg/kg/hr, 15.458 mls/hr Fentanyl Citrate (Fentanyl Citrate/Sodium Chloride 1 Mg/100 Ml) 1,000 mcg in 100 mls @ 2 mls/hr IV .Q24H PRN; Protocol; 20 MCG/HR PRN Reason: TITRATE PER MD ORDER Last Admin: 02/19/17 09:52 Dose: 100 mcg/hr, 10 mls/hr Fluconazole (Diflucan Iv 200 Mg/100 Ml Ns) 100 mls @ 100 mls/hr IVPB DAILY [facility] PRN Reason: Protocol Last Admin: 02/19/17 14:18 Dose: 100 mls/hr Amino Acids/Electrolytes/Dextrose (Clinimix 5/20 % "E" (2000 Ml)) 2,000 mls @ 83.333 mls/hr IV .Q24H [facility] Last Admin: 02/19/17 18:28 Dose: 83.333 mls/hr Metronidazole (Flagyl) 500 mg in 100 mls @ 100 mls/hr IVPB Q6 RAOUL PRN Reason: Protocol Last Admin: 02/19/17 18:30 Dose: 100 mls/hr Ondansetron HCl (Zofran Inj) 4 mg IVP Q6 PRN PRN Reason: Nausea/Vomiting Last Admin: 02/13/17 16:26 Dose: 4 mg Pantoprazole Sodium (Protonix Inj) 40 mg IVP DAILY [facility] Last Admin: 02/19/17 09:15 Dose: 40 mg - Labs Labs: 02/19/17 06:05 02/19/17 06:05 PT 17.7 Seconds (9.9-11.8) H 02/16/17 06:08 INR 1.64 (0.93-1.08) H 02/16/17 06:08 APTT 33.6 Seconds (23.7-30.8) H 02/16/17 06:08 - Constitutional Appears: Non-toxic, No Acute Distress, Chronically Ill - Head Exam Head Exam: ATRAUMATIC, NORMOCEPHALIC - Eye Exam Eye Exam: EOMI, PERRL Pupil Exam: NORMAL ACCOMODATION, PERRL - ENT Exam ENT Exam: Mucous Membranes Moist, Normal External Ear Exam, TM's Normal Bilaterally - Neck Exam Neck Exam: Full ROM, Normal Inspection - Respiratory Exam Respiratory Exam: Clear to Ausculation Bilateral, NORMAL BREATHING PATTERN. absent: Rales, Rhonchi, Wheezes - Cardiovascular Exam Cardiovascular Exam: REGULAR RHYTHM, RRR, +S1, +S2 - GI/Abdominal Exam GI & Abdominal Exam: Soft, Normal Bowel Sounds. absent: Distended, Tenderness - Extremities Exam Extremities Exam: Full ROM, Normal Inspection - Neurological Exam Additional comments: AAO x 0, intubated and ventilated. withdraws to pain. Non-purposeful movement of extremities. - Psychiatric Exam Additional comments: withdraws to pain/noxious stimuli. - Skin Skin Exam: Intact, Normal Color Assessment and Plan - Assessment and Plan (Free Text) Assessment: 51 yo female currently intubated and ventilated and poorly responsive with hypotension requiring pressor support with 4 medications. Currently on Meropenem and Vancomycin. Extremely poor prognosis. Supportive care. There were concerns for abdominal perforation and findings of extensive abdominal ascites and pneumoperitoneum. Severe anemia requiring PRBC transfusions. Meropenem is a reasonable choice for generalized antibiotic coverage. Continue on meropenem for now. Supportive care. Dismal prognosis. Lactic acidosis improved but respiratory function has remained about the same or slightly better. Patient hemodynamically stable. Arousable but does not follow commands. Thank you for allowing me to participate in the care of the patient, we will follow with you.
[2017-02-19 20:05] LABS: VENOUS BLOOD GAS BASE EXCESS -0.8 mmol/L (0.0-2.0); VENOUS BLOOD PH 7.34 (7.32-7.43)
--- NOTE | 2017-02-19 22:22 | PN ---
DATE: 02/19/2017 This is the patient's hospital evaluation in the intensive care unit. For Dr. Lucas. SUBJECTIVE: The patient is a 51-year-old female, seen lying awake in bed, recovering from septic bennett ck with multiorgan dysfunction secondary to perforated viscus with the patient requiring ventilatory support. With this, she is now sedated with no response to questioning. She appears to be in no acu te distress. The patient is known to suffer from bipolar disorder, substance abuse, adenocarcinoma of the colon wi th colostomy. PHYSICAL EXAMINATION: VITAL SIGNS: Temperature 99.6 rectal, pulse 85, respirations on a vent, blood pressure 152/54, pulse ox of 99% on an FIO2 of 70. HEENT: Eyes open purposefully. She remains intubated. NECK: No nodes. HEART: Tachy rate, regular rhythm. LUNGS: Scattered rhonchi. ABDOMEN: Positive viable colostomy. EXTREMITIES: +1 edema. NEUROLOGIC: The patient does not respond to verbal and little responsive to noxious stimuli. LABORATORY DATA: The patient's labs were done. White blood cell count of 17.0, hemoglobin 10.6 stat us post transfusions of 8 units of packed red blood cells, 8 units of fresh frozen plasma, 3 units of platelets since her admission with a platelet count of 29,000, manual 35,000. Her chem panel showed a BUN of creatinine of 0.8 with a T-bili of 2.2, AST 114, ALT 197, otherwise normal chem panel. The patient's last ABG showed a pO2 of 57, bicarbonate 22.6 with a pH of 7.36. ASSESSMENT: Respiratory failure, patient intubated, acute abdomen status post perforation, Escherich ia coli sepsis, electrolyte imbalance, anemia, thrombocytopenia, history of Crohn's disease, bipolar disorder, asthma, polysubstance abuse, history of gastrointestinal bleed, adenocarcinoma of the colon with colostomy. PLAN: To continue present medical regimen with supportive care. No surgical intervention as per fam eliza request noted. The patient's prognosis, unfortunately, is poor. Norm Lees MD cc: [id number] TT: 02/19/2017 22:22:03 Confirmation # [id number] Dictation # [id number] ln
[2017-02-20] MEDS: metroNIDAZOLE IV 500 mg/100 ml 500 MG/100 ML BAG IVPB SCH ×4 (00:30→17:04)
[2017-02-20] MEDS: Albuterol 0.083% Inhal Sol (2.5 mg/3 mL) UD IH SCH ×6 (01:01→19:40)
[2017-02-20] MEDS: Dexmedetomidine HCl 4mcg/ml 400 MCG/100 ML BOTTLE IV PRN ×3 (03:01→12:53)
[2017-02-20] MEDS: Fentanyl 1000mcg/100ml NS 1,000 MCG/100 ML BAG IV PRN ×2 (04:00→13:17)
[2017-02-20] MEDS: EnalaprilAT 1.25 mg/ml Inj IVP SCH ×4 (06:53→21:57)
[2017-02-20] MEDS: Meropenem 1g/NS 100mL IVPB 1 GM/100 ML PIGGYBACK IVPB SCH ×3 (06:54→21:58)
[2017-02-20 07:22] LABS: HEMATOCRIT 32.5 % (36.0-48.0); MEAN CELL VOLUME 88.3 fL (80.0-105.0); MEAN CORPUSCULAR HEMOGLOBIN 28.5 pg (25.0-35.0); MEAN CORPUSCULAR HGB CONC 32.3 g/dl (31.0-37.0); RED CELL DISTRIBUTION WIDTH 17.5 % (11.5-14.5); WHITE BLOOD COUNT 15.1 10^3/ul (4.5-11.0)
[2017-02-20 07:23] LABS: ADD MANUAL DIFF? YES
[2017-02-20 07:32] LABS: PLATELET COUNT 22 10^3/uL (120.0-450.0)
[2017-02-20] MEDS: Arformoterol 15 mcg/2 ml Inh Sol IH SCH ×2 (07:33→19:41)
[2017-02-20] MEDS: Budesonide 0.5 mg/2 ml Inhal Susp UD IH SCH ×2 (07:33→19:42)
[2017-02-20 07:39] LABS: ALB/GLOB RATIO 0.8 (1.1-1.8); ALKALINE PHOSPHATASE 115 U/L (38-133); ALT/SGPT 131 U/L (7-56); AST/SGOT 78 U/L (15-39); BILIRUBIN,TOTAL 2.1 mg/dL (0.2-1.3); BLOOD UREA NITROGEN 44 mg/dL (7-21); CALCIUM 8.8 mg/dL (8.4-10.5); CARBON DIOXIDE 26 mmol/L (21-33); CHLORIDE 112 mmol/L (95-110); GFR AFRICAN-AMERICAN > 60; GLUCOSE,RANDOM 197 mg/dL (70-110); POTASSIUM 3.1 mmol/L (3.6-5.0); SODIUM 147 mmol/L (132-148); TOTAL PROTEIN 5.7 g/dL (5.8-8.3)
--- NOTE | 2017-02-20 08:05 | CP.PCM.PN ---
Subjective - Date & Time of Evaluation Date of Evaluation: 02/20/17 Time of Evaluation: 08:04 - Subjective Subjective: Surgery: Dr. Marti Patient remains intubated in the ICU. Sedation decreased and patient seens mildly agitated when changing positions. Per nursing documentation, afebrile overnight. OGT with bilious output 25cc/24hrs. [place] w/ clear yellow urine of 1500/24hrs. Patient s/p CT scan and u/s of abdomen to evaluate for possible source of fever. CT scan with distended gallbladder and diffuse ascites/ anasarca, no change in bilateral pleural effusions. Abdominal u/s showed some minimal pericholecystic fluid. Objective - Vital Signs/Intake and Output Vital Signs (last 24 hours): Temp Pulse Resp BP Pulse Ox 98.6 F 78 20 132/89 97 02/20/17 00:00 02/20/17 05:30 02/19/17 16:00 02/20/17 06:53 02/20/17 05:30 Intake and Output: 02/20/17 02/20/17 06:59 18:59 Intake Total 1486 Output Total 1225 Balance 261 - Medications Medications: Current Medications Acetylcysteine (Acetylcysteine 20%) 4 ml IH [id number] [facility] Last Admin: 02/17/17 19:48 Dose: Not Given Albuterol Sulfate (Albuterol 0.083% Inhal Amarilys (2.5 Mg/3 Ml) Ud) 2.5 mg IH [id number] [facility] Last Admin: 02/20/17 07:33 Dose: 2.5 mg Arformoterol Tartrate (Brovana) 15 mcg IH [id number] [facility] Last Admin: 02/20/17 07:33 Dose: 15 mcg Budesonide (Pulmicort Respules) 0.5 mg IH [id number] [facility] Last Admin: 02/20/17 07:33 Dose: 0.5 mg Clonazepam (Klonopin) 1 mg PO BID [facility] PRN Reason: Protocol Last Admin: 02/14/17 10:00 Dose: Not Given Enalaprilat (Vasotec Iv) 1.25 mg IVP Q6H [facility] Last Admin: 02/20/17 06:53 Dose: 1.25 mg Furosemide (Lasix) 40 mg IVP DAILY [facility] Last Admin: 02/19/17 09:13 Dose: 40 mg Hydrocortisone Sodium Succinate (Solu-Cortef) 50 mg IVP Q12H [facility] Last Admin: 02/19/17 22:25 Dose: 50 mg Meropenem 1g/NS 100mL IVPB (Meropenem 1g/Ns 100ml Ivpb) 1 gm in 100 mls @ 100 mls/hr IVPB Q8 [facility] PRN Reason: Protocol Last Admin: 02/20/17 06:54 Dose: 100 mls/hr Dobutamine HCl/Dextrose (Dobutamine/Dextrose 5% 500mg/250ml) 500 mg in 250 mls @ 6.328 mls/hr IV .Q24H PRN; Protocol; 2.5 MCG/KG/MIN PRN Reason: TITRATE PER PROTOCOL Last Admin: 02/18/17 22:37 Dose: 2.5 mcg/kg/min, 6.328 mls/hr Vancomycin HCl 1.5 gm/ Sodium (Chloride) 500 mls @ 167 mls/hr IVPB Q12 [facility] PRN Reason: Protocol Last Admin: 02/19/17 22:26 Dose: 167 mls/hr Dexmedetomidine HCl (Precedex 4 Mcg/Ml (100 Ml)) 400 mcg in 100 mls @ 3.865 mls /hr IV .Q24H PRN; Protocol; 0.2 MCG/KG/HR PRN Reason: Agitation Last Admin: 02/20/17 03:01 Dose: 0.8 mcg/kg/hr, 15.458 mls/hr Fentanyl Citrate (Fentanyl Citrate/Sodium Chloride 1 Mg/100 Ml) 1,000 mcg in 100 mls @ 2 mls/hr IV .Q24H PRN; Protocol; 20 MCG/HR PRN Reason: TITRATE PER MD ORDER Last Admin: 02/20/17 04:00 Dose: 100 mcg/hr, 10 mls/hr Fluconazole (Diflucan Iv 200 Mg/100 Ml Ns) 100 mls @ 100 mls/hr IVPB DAILY [facility] PRN Reason: Protocol Last Admin: 02/19/17 14:18 Dose: 100 mls/hr Amino Acids/Electrolytes/Dextrose (Clinimix 5/20 % "E" (2000 Ml)) 2,000 mls @ 83.333 mls/hr IV .Q24H [facility] Last Admin: 02/19/17 18:28 Dose: 83.333 mls/hr Metronidazole (Flagyl) 500 mg in 100 mls @ 100 mls/hr IVPB Q6 [facility] PRN Reason: Protocol Last Admin: 02/20/17 06:52 Dose: 100 mls/hr Ondansetron HCl (Zofran Inj) 4 mg IVP Q6 PRN PRN Reason: Nausea/Vomiting Last Admin: 02/13/17 16:26 Dose: 4 mg Pantoprazole Sodium (Protonix Inj) 40 mg IVP DAILY [facility] Last Admin: 02/19/17 09:15 Dose: 40 mg - Labs Labs: 02/20/17 06:45 02/20/17 06:45 PT 17.7 Seconds (9.9-11.8) H 02/16/17 06:08 INR 1.64 (0.93-1.08) H 02/16/17 06:08 APTT 33.6 Seconds (23.7-30.8) H 02/16/17 06:08 - Constitutional Appears: Toxic, Chronically Ill - Head Exam Head Exam: ATRAUMATIC, NORMOCEPHALIC - ENT Exam Additional comments: ET tube and OGT in place - Respiratory Exam Additional comments: mechanical ventilation w/ increase is O2 requirement to 70% and PEEP of 10 - Cardiovascular Exam Cardiovascular Exam: REGULAR RHYTHM. absent: Tachycardia - GI/Abdominal Exam GI & Abdominal Exam: Distended, Soft. absent: Guarding, Rebound Additional comments: ostomy in LLQ w/ liquid stool output - Skin Skin Exam: Dry, Warm Assessment and Plan - Assessment and Plan (Free Text) Assessment: 51 y/o female with septic shock and multiorgan failure Plan: -fever etiology multifactorial, imaging no definite source identified and Transaminitis improved today -patient overall clinical status remains guarded -hgb improved after transfusion, transfuse prn -daily labs -OGT on suction -further management per ICU team -d/w Dr. Kaia Ray PGY1
[2017-02-20] MEDS: HYDROmorphone 2 mg/ml ISec IVP SCH ×4 (08:33→20:31)
[2017-02-20 08:40] LABS: ATYPICAL LYMPHOCYTE 1 % (0.0-0.0); BAND 7 % (0-2); NEUTROPHIL 74 % (50.0-70.0)
[2017-02-20 08:41] LABS: ANISOCYTOSIS 1+; EOSINOPHIL 2 % (0.0-3.0); HYPOCHROMIA 1+; NUCLEATED RED BLOOD CELL 3 %; OVALOCYTES SLIGHT; PLATELET ESTIMATE LOW (NORMAL); TOXIC GRANULATION SLIGHT
[2017-02-20 08:51] LABS: VENOUS BLOOD GAS BASE EXCESS -4.6 mmol/L (0.0-2.0); VENOUS BLOOD PH 7.26 (7.32-7.43)
[2017-02-20] MEDS: Fluconazole IV 200mg/100 ml NS 100 ML IVPB SCH (09:05)
--- NOTE | 2017-02-20 09:50 | PN ---
DATE: 02/20/2017 The patient is seen and examined at bedside. She is more alert; however, not following commands. She is moving all extremities. She is on a fentanyl 75 mcg per hour and Precedex 0.5 mcg per kg per hour. PHYSICAL EXAMINATION: VITAL SIGNS: Heart rate 78, blood pressure 132/89, oxygen saturation 97% on 70 % FIO2. HEAD AND NECK: Atraumatic. LUNGS: A few crackles bibasilar. HEART: Regular rate and rhythm. S1, S2 distant. ABDOMEN: Soft, nontender, nondistended. MUSCULOSKELETAL: Trace bilateral pedal and ankle edema. NEUROLOGIC: The patient moves all extremities spontaneously. SKIN: Moist. PSYCHIATRIC: The patient is alert and oriented x 3. LABORATORY DATA: WBC 15.1 (down from 17), hemoglobin 10.5, platelet count 22. Sodium 147, potassium 3.1, chloride 112, carbon dioxide 26, BUN 44, creatinine 0.7, glucose 197, AST 78, ALT 131. MEDICATIONS: DuoNeb every 4, TPN, Brovana, budesonide, Klonopin, Precedex, fluconazole 200 mg IV daily, Vasotec 1.25 mg IV q. 6, Flagyl, Lasix 40 mg IV daily, hydrocortisone 50 mg IV q. 12 (tapered to daily), Dilaudid 2 mg IV q. 4, meropenem, vancomycin IV. ASSESSMENT AND PLAN: This is a 51-year-old lady recovering from septic shock with multiorgan system failure. Despite significant improvement in her renal function, cardiac function and hemodynamic status, she still requires significant ventilatory support and appears to be in severe pulmonary edema ( liekly combination of cardiogenic and non cardiogenic pulmonary edema); besides she has leukocytosis and febrile episodes. The patient is going for HIDA scan to rule out acalculous cholecystitis. If present, cholecystostomy tube will be placed. PICC line will be placed and a central venous line will be removed today. The patient is on empiric antifungal medications as well. She continues on vancomycin and meropenem, and ID service is following her as well. I will touch base with the patient's next of kin today in terms of tracheostomy as we are nearing 10 day period after intubation. Of note, the patient is DNR and will touch base about advanced directives again. 1. Neurology: I will continue with Fentanyl drip and switch from Precedex to Propofol for better ventilator synchrony. CTH yesterday did not reveal acute intracranial pathology. EEG is pending. 2. Pulmonary: Will continue with protective lung ventilation strategy, conservative fluid and oxygen management. Will continue with head of bed elevated more than 35 degrees daily, doing daily weaning trials and sedation vacation. Will aim at -1L negative fluid balance today, optimize sedation for vent synchrony. bedside US showed predmominantly pulmonary edema b/l ( substantial amount of B-lines b/l). Higher PEEP/fi02 ratio to prevent atelectrauma, sharing force trauma. 3. Cardiovascular: The patient is off of vasopressors. She is off dobutamine. I started her on Vasotec for afterload reduction. She will be on beta blockers as well. Propofol and PPV will add to afterload reduction as well. 4. GI: The patient is going for HIDA scan to rule out acalculous cholecystitis. If present, may need cholecystostomy tube. PICC placed, CVC removed. CT abdo/pelvis: no new findings. 5. Infectious disease: The patient is on broad-spectrum antibiotics. I will send beta D 1-3 glucan. The patient is also empirically on Diflucan. Will try to rule out acalculous cholecystitis. 6. Endocrine: Will proceed with maintaining euglycemia 140-180 range according to NICE-SUGAR trial. We are tapering stress dose steroids. 7. Renal: Her renal function substantially improved. We are continuing with conservative fluid management. Will try to avoid nephrotoxic medication, but not in expense of treating underlying disease. Will continue with DVT and GI prophylaxis. 8. Heme: The patient has thrombocytopenia and we will transfuse 1 bag of platelets to maintain blood level above 50 for potential cholecystostomy and PICC line placement. Leukocytosis somewhat improved. ccm time 40 min Van Lopez MD cc: [id number] TT: 02/20/2017 09:49:35 Confirmation # [id number] Dictation # [id number] keith ROSE
[2017-02-20] MEDS: Metoprolol 1 mg/ml Inj IVP SCH ×3 (10:06→20:43)
[2017-02-20] MEDS: Vancomycin 1.5 GM in Sodium Chloride 0.9% 500 ML IVPB SCH ×2 (10:07→22:40)
--- NOTE | 2017-02-20 10:52 | US ---
HISTORY: r/o gallstones COMPARISON: None. TECHNIQUE: Sonographic evaluation of the abdomen. FINDINGS: LIVER: Measures cm. Normal echogenicity of the liver parenchyma. No mass. No intrahepatic bile duct dilatation. GALLBLADDER: Unremarkable. No gallstones. COMMON BILE DUCT: Measures mm. No stones. No dilatation. PANCREAS: Unremarkable as visualized. No mass. No ductal dilatation. RIGHT KIDNEY: Measures cm. Possible right hydronephrosis and upper pole caliectasis. LEFT KIDNEY: Measures cm. Normal echogenicity. No calculus, mass, or hydronephrosis. SPLEEN: Normal in size and contour. No mass. AORTA: No aneurysmal dilatation. IVC: Unremarkable. OTHER FINDINGS: None. IMPRESSION: Possible right hydronephrosis and upper pole caliectasis.
--- NOTE | 2017-02-20 11:14 | CP.PCM.CON ---
History of Present Illness - History of Present Illness History of Present Illness: Palliative consult requested by Dr Mari Kincaid Reason: Goals of care 51 year old female who presented with groin, abdominal and LLE pain. She subsequently became hypoxic,tacycardic and tachypnic. D Dimer 28, lactic acid 5. She was intubated and is being managed in ICU for septic shock and multi organ failure. PMHx: mucinous adenocarcinoma of colon, Crohn's disease,asthma, bipolar disorder , polysubstance abuse, lower extremity cellulitis. Social History: Smoker, substance abuse(opioids/cocaine,alcohol). Family History: Non contributory. Advance Care Planing: The patient did not have an Advance Directive. DNR as per patient mother. Review of Systems: Unable to obtain, intubated. Past Patient History - Infectious Disease Hx of Infectious Diseases: None - Tetanus Immunizations Tetanus Immunization: Unknown - Past Medical History & Family History Past Medical History?: Yes - Past Social History Smoking Status: Former Smoker Chewing Tobacco Use: No Cigar Use: No Home Situation {Lives}: With Family - CARDIAC Hx Cardiac Disorders: No Hx Angina: No Hx Cardia Arrhythmia: No Hx Circulatory Problems: No Hx Congestive Heart Failure: Yes Hx Heart Murmur: No Hx Heart Transplant: No Hx Hypercholesterolemia: Yes Hx Hypertension: Yes Hx Internal Defibrillator: No Hx Mitral Valve Prolapse: No Hx Pacemaker: No Hx Peripheral Edema: No Hx Peripheral Vascular Disease: No - PULMONARY Hx Respiratory Disorders: No Hx Asthma: Yes Hx Bronchitis: No Hx Chronic Obstructive Pulmonary Disease (COPD): No Hx Emphysema: No Hx Pneumonia: Yes Hx Respiratory Aspiration: No Hx Respiratory Tract Infection: Yes Hx Sleep Apnea: No Hx Tuberculosis: No - NEUROLOGICAL Hx Neurological Disorder: No Hx Alzheimer's Disease: No HX Cerebrovascular Accident: No Hx Dementia: No Hx Dizziness: No Hx Meningitis: No Hx Migraine: No Hx Parkinson's Disease: No Hx Seizures: No Hx Transient Ischemic Attacks (TIA): No - HEENT Hx HEENT Problems: No Hx Blind: No Hx Cataracts: No Hx Deafness: No Hx Difficulty Chewing: No Hx Epistaxis: No Hx Glaucoma: No Hx Macular Degeneration: No - RENAL Hx Chronic Kidney Disease: No Hx Dialysis: No Hx Kidney Stones: No Hx Neurogenic Bladder: No Hx Pyelonephritis: No Hx Renal (Kidney) Cancer: No Hx Renal Failure: No - ENDOCRINE/METABOLIC Hx Endocrine Disorders: No Hx Adrenal Cancer: No Hx Diabetes Insipidus: No Hx Diabetes Mellitus Type 1: No Hx Diabetes Mellitus Type 2: No Hx Hyperthyroidism: No Hx Hypothyroidism: No Hx Systemic Lupus Erythematosus: No - HEMATOLOGICAL/ONCOLOGICAL Hx Blood Transfusions: No Hx Blood Transfusion Reaction: No - INTEGUMENTARY Hx Dermatological Problems: No Hx Basil Cell: No Hx Eczema: No Hx Melanoma: No Hx Psoriasis: No Hx Squamous Cell: No - MUSCULOSKELETAL/RHEUMATOLOGICAL Hx Arthritis: No Hx Back Pain: Yes Hx Degenerative Joint Disease: No Hx Falls: Yes Hx Fractures: No Hx Gout: No Hx Herniated Disk: Yes Hx Myasthenia Gravis: No Hx Osteoarthritis: No Hx Osteomyelitis: No Hx Osteoporosis: No Hx Rhabdomyolysis: No Hx Spinal Stenosis: No Hx Unsteady Gait: No - GASTROINTESTINAL Hx Colostomy: Yes Hx Crohn's Disease: Yes Hx Diverticulitis: No Hx Gall Bladder Disease: No Hx Gastroesophageal Reflux: Yes Hx Ileostomy: No Hx Liver Failure: No Hx Pancreatitis: No HX Swallowing Problems: No Hx Ulcer: No - GENITOURINARY/GYNECOLOGICAL Hx Genitourinary Disorders: No Hx Hematuria: No Hx Incontinence: No Hx Sexually Transmitted Disorders: No - PSYCHIATRIC Hx Anxiety: Yes Hx Bipolar Disorder: Yes Hx Depression: Yes Hx Emotional Abuse: No Hx Hallucinations: Yes Hx Panic Symptoms: No Hx Paranoia: No Hx Post Traumatic Stress Disorder: No Hx Psychosis: No Hx Physical Abuse: No Hx Schizophrenia: No Hx Sexual Abuse: No Hx Substance Use: Yes - SURGICAL HISTORY Hx Surgeries: Yes - ANESTHESIA Hx Anesthesia Reactions: No Hx Malignant Hyperthermia: No Meds Allergies/Adverse Reactions: Allergies Allergy/AdvReac Type Severity Reaction Status Date / Time morphine Allergy RASH Verified 02/11/17 09:22 - Medications Medications: Current Medications Acetylcysteine (Acetylcysteine 20%) 4 ml IH [id number] [facility] Last Admin: 02/17/17 19:48 Dose: Not Given Albuterol Sulfate (Albuterol 0.083% Inhal Amarilys (2.5 Mg/3 Ml) Ud) 2.5 mg IH [id number] [facility] Last Admin: 02/20/17 07:33 Dose: 2.5 mg Arformoterol Tartrate (Brovana) 15 mcg IH [id number] [facility] Last Admin: 02/20/17 07:33 Dose: 15 mcg Budesonide (Pulmicort Respules) 0.5 mg IH [id number] [facility] Last Admin: 02/20/17 07:33 Dose: 0.5 mg Clonazepam (Klonopin) 1 mg PO BID [facility] PRN Reason: Protocol Last Admin: 02/14/17 10:00 Dose: Not Given Enalaprilat (Vasotec Iv) 1.25 mg IVP Q6H [facility] Last Admin: 02/20/17 10:07 Dose: 1.25 mg Furosemide (Lasix) 40 mg IVP DAILY [facility] Last Admin: 02/20/17 10:05 Dose: 40 mg Hydrocortisone Sodium Succinate (Solu-Cortef) 50 mg IVP DAILY [facility] Last Admin: 02/20/17 10:05 Dose: 50 mg Hydromorphone HCl (Dilaudid) 2 mg IVP Q4H [facility] Last Admin: 02/20/17 08:33 Dose: 2 mg Meropenem 1g/NS 100mL IVPB (Meropenem 1g/Ns 100ml Ivpb) 1 gm in 100 mls @ 100 mls/hr IVPB Q8 [facility] PRN Reason: Protocol Last Admin: 02/20/17 06:54 Dose: 100 mls/hr Dobutamine HCl/Dextrose (Dobutamine/Dextrose 5% 500mg/250ml) 500 mg in 250 mls @ 6.328 mls/hr IV .Q24H PRN; Protocol; 2.5 MCG/KG/MIN PRN Reason: TITRATE PER PROTOCOL Last Admin: 02/18/17 22:37 Dose: 2.5 mcg/kg/min, 6.328 mls/hr Vancomycin HCl 1.5 gm/ Sodium (Chloride) 500 mls @ 167 mls/hr IVPB Q12 [facility] PRN Reason: Protocol Last Admin: 02/20/17 10:07 Dose: 167 mls/hr Dexmedetomidine HCl (Precedex 4 Mcg/Ml (100 Ml)) 400 mcg in 100 mls @ 3.865 mls /hr IV .Q24H PRN; Protocol; 0.2 MCG/KG/HR PRN Reason: Agitation Last Admin: 02/20/17 09:35 Dose: 1 mcg/kg/hr, 19.323 mls/hr Fentanyl Citrate (Fentanyl Citrate/Sodium Chloride 1 Mg/100 Ml) 1,000 mcg in 100 mls @ 2 mls/hr IV .Q24H PRN; Protocol; 20 MCG/HR PRN Reason: TITRATE PER MD ORDER Last Admin: 02/20/17 04:00 Dose: 100 mcg/hr, 10 mls/hr Fluconazole (Diflucan Iv 200 Mg/100 Ml Ns) 100 mls @ 100 mls/hr IVPB DAILY [facility] PRN Reason: Protocol Last Admin: 02/19/17 14:18 Dose: 100 mls/hr Amino Acids/Electrolytes/Dextrose (Clinimix 5/20 % "E" (2000 Ml)) 2,000 mls @ 83.333 mls/hr IV .Q24H [facility] Last Admin: 02/19/17 18:28 Dose: 83.333 mls/hr Metronidazole (Flagyl) 500 mg in 100 mls @ 100 mls/hr IVPB Q6 [facility] PRN Reason: Protocol Last Admin: 02/20/17 06:52 Dose: 100 mls/hr Potassium Chloride (Potassium Chloride 20 Meq/100 Ml) 20 meq in 100 mls @ 50 mls/hr IVPB Q2H [facility] Stop: 02/20/17 12:44 Last Admin: 02/20/17 10:04 Dose: 50 mls/hr Metoprolol Tartrate (Lopressor) 5 mg IVP Q6H [facility] Last Admin: 02/20/17 10:06 Dose: 5 mg Ondansetron HCl (Zofran Inj) 4 mg IVP Q6 [facility] PRN Reason: Nausea/Vomiting Last Admin: 02/13/17 16:26 Dose: 4 mg Pantoprazole Sodium (Protonix Inj) 40 mg IVP DAILY [facility] Last Admin: 02/20/17 10:06 Dose: 40 mg Physical Exam - Constitutional Appears: Chronically Ill - Head Exam Head Exam: NORMOCEPHALIC - Eye Exam Eye Exam: Normal appearance Additional comments: pupils sluggish - ENT Exam ENT Exam: Mucous Membranes Moist - Respiratory Exam Respiratory Exam: Decreased Breath Sounds, Rhonchi - Cardiovascular Exam Cardiovascular Exam: REGULAR RHYTHM, +S1 - GI/Abdominal Exam GI & Abdominal Exam: Diminished Bowel Sounds, Soft Additional comments: no guarding,left colostomy stoma - Extremities Exam Extremities exam: Positive for: pedal edema Additional comments: lmoving all extrmites - Back Exam Back exam: NORMAL INSPECTION - Neurological Exam Neurological exam: Altered - Skin Skin Exam: Dry, Pallor - Additional Findings Additional findings: Palliative performance scale rating 20% Results - Vital Signs Recent Vital Signs: Last Vital Signs Temp 97.8 F 02/20/17 08:00 Pulse 96 H 02/20/17 10:06 Resp 21 02/20/17 08:00 BP 151/86 H 02/20/17 10:07 Pulse Ox 94 L 02/20/17 08:16 - Labs Result Diagrams: 02/20/17 06:45 02/20/17 06:45 Labs: Laboratory Results - last 24 hr 02/19/17 02/19/17 02/19/17 12:10 12:16 12:50 WBC RBC Hgb Hct MCV MCH MCHC RDW Plt Count Manual Plt Count Neutrophils % (Manual) Band Neutrophils % Lymphocytes % (Manual) Atypical Lymphs % Monocytes % (Manual) Eosinophils % (Manual) Nucleated RBC % Toxic Granulation Platelet Evaluation Hypochromasia Anisocytosis (manual) Ovalocytes pCO2 40 pO2 57.0 L HCO3 22.6 ABG pH 7.36 ABG Total CO2 23.8 ABG O2 Saturation 91.4 L ABG Base Excess -2.7 L ABG Potassium 3.5 L VBG pH VBG pCO2 VBG HCO3 VBG Total CO2 VBG O2 Sat (Calc) VBG Base Excess VBG Potassium Sodium 146.0 Chloride 117.0 H Glucose 139 H Lactate 3.0 H Mechanical Rate 22 FiO2 50.0 Tidal Volume 340 PEEP 7 Potassium Carbon Dioxide Anion Gap BUN Creatinine Est GFR ( Amer) Est GFR (Non-Af Amer) POC Glucose (mg/dL) 131 H Random Glucose Calcium Total Bilirubin AST ALT Alkaline Phosphatase Total Protein Albumin Globulin Albumin/Globulin Ratio Triglycerides 194 H Cholesterol 143 LDL Cholesterol Direct 86 HDL Cholesterol 18 L Arterial Blood Potassium 3.5 L Venous Blood Potassium Urine Color Urine Appearance Urine pH Ur Specific [place] Urine Protein Urine Glucose (UA) Urine Ketones Urine Blood Urine Nitrate Urine Bilirubin Urine Urobilinogen Ur Leukocyte Esterase Urine RBC Urine WBC Urine Bacteria Coarse Granular Casts 02/19/17 02/19/17 02/19/17 13:00 19:40 19:49 WBC RBC Hgb Hct MCV MCH MCHC RDW Plt Count Manual Plt Count Neutrophils % (Manual) Band Neutrophils % Lymphocytes % (Manual) Atypical Lymphs % Monocytes % (Manual) Eosinophils % (Manual) Nucleated RBC % Toxic Granulation Platelet Evaluation Hypochromasia Anisocytosis (manual) Ovalocytes pCO2 pO2 84 H HCO3 ABG pH ABG Total CO2 ABG O2 Saturation ABG Base Excess ABG Potassium VBG pH 7.34 VBG pCO2 47.0 VBG HCO3 25.4 VBG Total CO2 26.8 VBG O2 Sat (Calc) 96.7 H VBG Base Excess -0.8 L VBG Potassium 3.7 Sodium 146.0 Chloride 112.0 H Glucose 327 H Lactate 3.5 H Mechanical Rate FiO2 21.0 Tidal Volume PEEP Potassium Carbon Dioxide Anion Gap BUN Creatinine Est GFR ( Amer) Est GFR (Non-Af Amer) POC Glucose (mg/dL) 166 H Random Glucose Calcium Total Bilirubin AST ALT Alkaline Phosphatase Total Protein Albumin Globulin Albumin/Globulin Ratio Triglycerides Cholesterol LDL Cholesterol Direct HDL Cholesterol Arterial Blood Potassium Venous Blood Potassium 3.7 Urine Color Yellow Urine Appearance Sl cloudy Urine pH 6.5 Ur Specific [place] 1.025 Urine Protein 100 H Urine Glucose (UA) Negative Urine Ketones Negative Urine Blood Moderate H Urine Nitrate Negative Urine Bilirubin Negative Urine Urobilinogen 0.2 Ur Leukocyte Esterase Negative Urine RBC 15 - 20 Urine WBC 0 - 2 Urine Bacteria Few Coarse Granular Casts Small H 02/20/17 02/20/17 02/20/17 01:41 06:45 06:45 WBC 15.1 H RBC 3.68 Hgb 10.5 L Hct 32.5 L MCV 88.3 MCH 28.5 MCHC 32.3 RDW 17.5 H Plt Count 22 L* Manual Plt Count 35 L* Neutrophils % (Manual) 74 H Band Neutrophils % 7 H Lymphocytes % (Manual) 11 L Atypical Lymphs % 1 H Monocytes % (Manual) 5 Eosinophils % (Manual) 2 Nucleated RBC % 3 Toxic Granulation Slight Platelet Evaluation Low Hypochromasia 1+ Anisocytosis (manual) 1+ Ovalocytes Slight pCO2 pO2 HCO3 ABG pH ABG Total CO2 ABG O2 Saturation ABG Base Excess ABG Potassium VBG pH VBG pCO2 VBG HCO3 VBG Total CO2 VBG O2 Sat (Calc) VBG Base Excess VBG Potassium Sodium 147 Chloride 112 H Glucose Lactate Mechanical Rate FiO2 Tidal Volume PEEP Potassium 3.1 L Carbon Dioxide 26 Anion Gap 12 BUN 44 H Creatinine 0.7 Est GFR ( Amer) > 60 Est GFR (Non-Af Amer) > 60 POC Glucose (mg/dL) 176 H Random Glucose 197 H Calcium 8.8 Total Bilirubin 2.1 H AST 78 H ALT 131 H Alkaline Phosphatase 115 Total Protein 5.7 L Albumin 2.6 L Globulin 3.1 Albumin/Globulin Ratio 0.8 L Triglycerides Cholesterol LDL Cholesterol Direct HDL Cholesterol Arterial Blood Potassium Venous Blood Potassium Urine Color Urine Appearance Urine pH Ur Specific [place] Urine Protein Urine Glucose (UA) Urine Ketones Urine Blood Urine Nitrate Urine Bilirubin Urine Urobilinogen Ur Leukocyte Esterase Urine RBC Urine WBC Urine Bacteria Coarse Granular Casts 02/20/17 08:45 WBC RBC Hgb Hct MCV MCH MCHC RDW Plt Count Manual Plt Count Neutrophils % (Manual) Band Neutrophils % Lymphocytes % (Manual) Atypical Lymphs % Monocytes % (Manual) Eosinophils % (Manual) Nucleated RBC % Toxic Granulation Platelet Evaluation Hypochromasia Anisocytosis (manual) Ovalocytes pCO2 pO2 51 HCO3 ABG pH ABG Total CO2 ABG O2 Saturation ABG Base Excess ABG Potassium VBG pH 7.26 L VBG pCO2 51.0 VBG HCO3 22.9 VBG Total CO2 24.5 VBG O2 Sat (Calc) 84.8 H VBG Base Excess -4.6 L VBG Potassium 3.6 Sodium 145.0 Chloride 118.0 H Glucose 203 H Lactate 5.0 H* Mechanical Rate FiO2 21.0 Tidal Volume PEEP Potassium Carbon Dioxide Anion Gap BUN Creatinine Est GFR ( Amer) Est GFR (Non-Af Amer) POC Glucose (mg/dL) Random Glucose Calcium Total Bilirubin AST ALT Alkaline Phosphatase Total Protein Albumin Globulin Albumin/Globulin Ratio Triglycerides Cholesterol LDL Cholesterol Direct HDL Cholesterol Arterial Blood Potassium Venous Blood Potassium 3.6 Urine Color Urine Appearance Urine pH Ur Specific [place] Urine Protein Urine Glucose (UA) Urine Ketones Urine Blood Urine Nitrate Urine Bilirubin Urine Urobilinogen Ur Leukocyte Esterase Urine RBC Urine WBC Urine Bacteria Coarse Granular Casts Assessment & Plan - Assessment and Plan (Free Text) Assessment: 51 year old female with s/p shock, resolving multi organ failure, intubated. So far,unable to wean from ventilator support. Patient becomes agitated, pulling at tubing when off sedation. Now receiving Precedex and Fentanyl. I was asked to discuss goals of care with patients mother, was able to reach her by cell phone. Mother has been unable to visit daughter due to her own medical problems. Mother very emotional/ anxious. I asked if there was a relative or friend who could provide her with some support. Mother states it is only she and her daughter. Mother very focused on having patients cancer treated. I explained that patient was very ill and that she would be unable to receive cancer treatment in this debilitated state. I explained that although some of her systems were improving she was still very critical. I also explained that mother may soon have to make decision as to whether she would want daughter to have tracheotomy and permanent feeding tube. Ramifications of these interventions explained. Mother made aware that patient would have to be cared for in a [facility] acute care facility. Mother very conflicted. States she noble not want her daughter to suffer. Option for comfort care offered. Mother unable to focus on conversation, keeps reverting back to her own medical problems. Reassured that I would continue to offer her emotional support and assist her in decision making. Mother is appreciative of our interaction. Asked if she would like to meet with medical team and myself for further clarification of daughters issues. She states she intends to visit soon but did not commit to day/time. Time spent in discussion with mother regarding goals of care, 40 minutes Plan: Continue current medical management Will assist with establishing future goals of care
[2017-02-20] MEDS ORDERED: Lidocaine 2% Inj (20ml) ONE (11:47)
[2017-02-20] MEDS ORDERED: Iodixanol 320 mg/ml 150 ml Bottle IV ONE (11:48)
--- NOTE | 2017-02-20 13:42 | PCM.SURG1 ---
Surgeon's Initial Post Op Note - Surgeon's Notes Surgeon: Christian Jolly MD Electronics Supervisor: NONE Type of Anesthesia: Local Pre-Operative Diagnosis: Sepsis Operative Findings: Small veins arm. Patent right upper basilic vein. Post-Operative Diagnosis: Sepsis Operation Performed: Dual lumen picc placement right basilic vein, 30 cm. Tip in SVC. Specimen/Specimens Removed: none Estimated Blood Loss: EBL {In ML}: 2 Blood Products Given: N/A Drains Used: No Drains Post-Op Condition: Poor Date of Surgery/Procedure: 02/20/17 Time of Surgery/Procedure: 13:40
--- NOTE | 2017-02-20 13:53 | CP.PCM.PN ---
<Melchor Pringle - Last Filed: 02/20/17 13:56> Subjective - Date & Time of Evaluation Date of Evaluation: 02/20/17 Time of Evaluation: 13:52 - Subjective Subjective: Patient seen at bedside. She appears more alert today, responds to her name. She does not respond to commands. Patient will go for HIDA today and possible cholecystectomy tube placement or suspected acalculous cholecystitis. She remains intubated and sedated on Fentanyl 75mcg and Precedex 0.5mcg/hr. Objective - Vital Signs/Intake and Output Vital Signs (last 24 hours): Temp Pulse Resp BP Pulse Ox 98.1 F 91 H 23 148/109 H 100 02/20/17 13:02/20/17 13:02/20/17 13:02/20/17 13:02/20/17 13:00 Intake and Output: 02/20/17 02/20/17 06:59 18:59 Intake Total 1486 605 Output Total 1225 Balance 261 605 - Medications Medications: Current Medications Acetylcysteine (Acetylcysteine 20%) 4 ml IH [id number] [facility] Last Admin: 02/17/17 19:48 Dose: Not Given Albuterol Sulfate (Albuterol 0.083% Inhal Amarilys (2.5 Mg/3 Ml) Ud) 2.5 mg IH [id number] [facility] Last Admin: 02/20/17 11:16 Dose: 2.5 mg Arformoterol Tartrate (Brovana) 15 mcg IH [id number] [facility] Last Admin: 02/20/17 07:33 Dose: 15 mcg Budesonide (Pulmicort Respules) 0.5 mg IH [id number] [facility] Last Admin: 02/20/17 07:33 Dose: 0.5 mg Clonazepam (Klonopin) 1 mg PO BID [facility] PRN Reason: Protocol Last Admin: 02/14/17 10:00 Dose: Not Given Enalaprilat (Vasotec Iv) 1.25 mg IVP Q6H [facility] Last Admin: 02/20/17 10:07 Dose: 1.25 mg Furosemide (Lasix) 40 mg IVP DAILY [facility] Last Admin: 02/20/17 10:05 Dose: 40 mg Hydrocortisone Sodium Succinate (Solu-Cortef) 50 mg IVP DAILY [facility] Last Admin: 02/20/17 10:05 Dose: 50 mg Hydromorphone HCl (Dilaudid) 2 mg IVP Q4H [facility] Last Admin: 02/20/17 12:36 Dose: 2 mg Meropenem 1g/NS 100mL IVPB (Meropenem 1g/Ns 100ml Ivpb) 1 gm in 100 mls @ 100 mls/hr IVPB Q8 [facility] PRN Reason: Protocol Last Admin: 02/20/17 06:54 Dose: 100 mls/hr Dobutamine HCl/Dextrose (Dobutamine/Dextrose 5% 500mg/250ml) 500 mg in 250 mls @ 6.328 mls/hr IV .Q24H PRN; Protocol; 2.5 MCG/KG/MIN PRN Reason: TITRATE PER PROTOCOL Last Admin: 02/18/17 22:37 Dose: 2.5 mcg/kg/min, 6.328 mls/hr Vancomycin HCl 1.5 gm/ Sodium (Chloride) 500 mls @ 167 mls/hr IVPB Q12 [facility] PRN Reason: Protocol Last Admin: 02/20/17 10:07 Dose: 167 mls/hr Dexmedetomidine HCl (Precedex 4 Mcg/Ml (100 Ml)) 400 mcg in 100 mls @ 3.865 mls /hr IV .Q24H PRN; Protocol; 0.2 MCG/KG/HR PRN Reason: Agitation Last Admin: 02/20/17 12:53 Dose: 1 mcg/kg/hr, 19.323 mls/hr Fentanyl Citrate (Fentanyl Citrate/Sodium Chloride 1 Mg/100 Ml) 1,000 mcg in 100 mls @ 2 mls/hr IV .Q24H PRN; Protocol; 20 MCG/HR PRN Reason: TITRATE PER MD ORDER Last Admin: 02/20/17 13:17 Dose: 100 mcg/hr, 10 mls/hr Fluconazole (Diflucan Iv 200 Mg/100 Ml Ns) 100 mls @ 100 mls/hr IVPB DAILY [facility] PRN Reason: Protocol Last Admin: 02/20/17 09:05 Dose: 100 mls/hr Amino Acids/Electrolytes/Dextrose (Clinimix 5/20 % "E" (2000 Ml)) 2,000 mls @ 83.333 mls/hr IV .Q24H [facility] Last Admin: 02/19/17 18:28 Dose: 83.333 mls/hr Metronidazole (Flagyl) 500 mg in 100 mls @ 100 mls/hr IVPB Q6 [facility] PRN Reason: Protocol Last Admin: 02/20/17 12:37 Dose: 100 mls/hr Metoprolol Tartrate (Lopressor) 5 mg IVP Q6H [facility] Last Admin: 02/20/17 10:06 Dose: 5 mg Ondansetron HCl (Zofran Inj) 4 mg IVP Q6 PRN PRN Reason: Nausea/Vomiting Last Admin: 02/13/17 16:26 Dose: 4 mg Pantoprazole Sodium (Protonix Inj) 40 mg IVP DAILY [facility] Last Admin: 02/20/17 10:06 Dose: 40 mg - Labs Labs: 02/20/17 06:45 02/20/17 06:45 PT 17.7 Seconds (9.9-11.8) H 02/16/17 06:08 INR 1.64 (0.93-1.08) H 02/16/17 06:08 APTT 33.6 Seconds (23.7-30.8) H 02/16/17 06:08 - Head Exam Head Exam: ATRAUMATIC, NORMOCEPHALIC - Eye Exam Eye Exam: PERRL. absent: EOMI - ENT Exam ENT Exam: Mucous Membranes Dry - Neck Exam Neck Exam: absent: Lymphadenopathy Additional comments: ET tube in place. OG tube in place. - Respiratory Exam Respiratory Exam: Rhonchi (bilaterally ). absent: Rales, Wheezes, NORMAL BREATHING PATTERN - Cardiovascular Exam Cardiovascular Exam: REGULAR RHYTHM, +S1, +S2 - GI/Abdominal Exam GI & Abdominal Exam: Distended, Soft, Normal Bowel Sounds. absent: Firm - Extremities Exam Extremities Exam: Pedal Edema - Neurological Exam Neurological Exam: Awake. absent: Oriented x3 Additional comments: moves all extremities spontaneously. - Skin Skin Exam: Dry, Warm Assessment and Plan - Assessment and Plan (Free Text) Assessment: 51 year old female with past medical history of Crohns disease, asthma, bipolar disorder, polysubstance abuse and recent diagnoses of adenocarcinoma of the colon. Patient is in the ICU recovering from Septic shock. Renal function is improving as well as cardiac function, shock liver and hemodynamic status. There is a concern for acalculous cholecystitis. The patient will go for HIDA and percutaneous cholecystostomy tube if necessary. Septic shock 2/2 abdominal perforation complicated by ESBL urosepsis - manage per CCU team - continue Fluconazole empirically. continue flagyl IV, vancomycin. - dilaudid for pain control - ID following - Palliative care is following and discussing end of life care with patient's family. Eventual trach/peg to be discussed. acute kidney injury 2/2 septic shock, multi-organ dysfunction syndrome - renal function is improving - avoiding nephrotoxic drugs when possible - maintaining MAP >65 transaminitis 2/2 shock liver in setting of septic shock - liver enzymes trending down - continue to maintain MAP >65 - monitor liver enzymes daily thrombocytopenia 2/2 sepsis, bone marrow suppression - transfuse per ICU team - discussed with hematology. awaiting further hematology lab results. - daily CBC - SCD's - SHARON panel negative bacteremia - E. faecalis in blood culture - continue abx per ID, ICU team UTI - Proteus mirabilis, ESBL in urine - continue abx as above Adenocarcinoma of colon: - heme/onc following - Ct of chest shows interstitial infiltrates with extensive bibasilar consolidations. Extensive B/L and medistinal LAD. <Mari Kincaid B - Last Filed: 02/20/17 17:40> Objective - Vital Signs/Intake and Output Vital Signs (last 24 hours): Temp Pulse Resp BP Pulse Ox 98.1 F 85 23 137/103 H 91 L 02/20/17 13:09 02/20/17 15:07 02/20/17 13:09 02/20/17 15:58 02/20/17 14:00 Intake and Output: 02/20/17 02/20/17 06:59 18:59 Intake Total 1486 605 Output Total 1225 Balance 261 605 - Medications Medications: Current Medications Acetylcysteine (Acetylcysteine 20%) 4 ml IH [id number] [facility] Last Admin: 02/17/17 19:48 Dose: Not Given Albuterol Sulfate (Albuterol 0.083% Inhal Amarilys (2.5 Mg/3 Ml) Ud) 2.5 mg IH [id number] [facility] Last Admin: 02/20/17 15:29 Dose: 2.5 mg Arformoterol Tartrate (Brovana) 15 mcg IH [id number] [facility] Last Admin: 02/20/17 07:33 Dose: 15 mcg Budesonide (Pulmicort Respules) 0.5 mg IH [id number] [facility] Last Admin: 02/20/17 07:33 Dose: 0.5 mg Clonazepam (Klonopin) 1 mg PO BID [facility] PRN Reason: Protocol Last Admin: 02/14/17 10:00 Dose: Not Given Enalaprilat (Vasotec Iv) 1.25 mg IVP Q6H [facility] Last Admin: 02/20/17 15:09 Dose: 1.25 mg Furosemide (Lasix) 40 mg IVP Q8H [facility] Last Admin: 02/20/17 15:58 Dose: 40 mg Hydrocortisone Sodium Succinate (Solu-Cortef) 50 mg IVP DAILY [facility] Last Admin: 02/20/17 10:05 Dose: 50 mg Hydromorphone HCl (Dilaudid) 2 mg IVP Q4H [facility] Last Admin: 02/20/17 12:36 Dose: 2 mg Meropenem 1g/NS 100mL IVPB (Meropenem 1g/Ns 100ml Ivpb) 1 gm in 100 mls @ 100 mls/hr IVPB Q8 [facility] PRN Reason: Protocol Last Admin: 02/20/17 15:08 Dose: 100 mls/hr Dobutamine HCl/Dextrose (Dobutamine/Dextrose 5% 500mg/250ml) 500 mg in 250 mls @ 6.328 mls/hr IV .Q24H PRN; Protocol; 2.5 MCG/KG/MIN PRN Reason: TITRATE PER PROTOCOL Last Admin: 02/18/17 22:37 Dose: 2.5 mcg/kg/min, 6.328 mls/hr Vancomycin HCl 1.5 gm/ Sodium (Chloride) 500 mls @ 167 mls/hr IVPB Q12 [facility] PRN Reason: Protocol Last Admin: 02/20/17 10:07 Dose: 167 mls/hr Fentanyl Citrate (Fentanyl Citrate/Sodium Chloride 1 Mg/100 Ml) 1,000 mcg in 100 mls @ 2 mls/hr IV .Q24H PRN; Protocol; 20 MCG/HR PRN Reason: TITRATE PER MD ORDER Last Admin: 02/20/17 13:17 Dose: 100 mcg/hr, 10 mls/hr Fluconazole (Diflucan Iv 200 Mg/100 Ml Ns) 100 mls @ 100 mls/hr IVPB DAILY [facility] PRN Reason: Protocol Last Admin: 02/20/17 09:05 Dose: 100 mls/hr Amino Acids/Electrolytes/Dextrose (Clinimix 5/20 % "E" (2000 Ml)) 2,000 mls @ 83.333 mls/hr IV .Q24H [facility] Last Admin: 02/19/17 18:28 Dose: 83.333 mls/hr Metronidazole (Flagyl) 500 mg in 100 mls @ 100 mls/hr IVPB Q6 [facility] PRN Reason: Protocol Last Admin: 02/20/17 12:37 Dose: 100 mls/hr Propofol (Diprivan) 1,000 mg in 100 mls @ 2.43 mls/hr IV .Q24H PRN; Protocol; 5 MCG/KG/MIN PRN Reason: TITRATE PER MD ORDER Last Admin: 02/20/17 16:00 Dose: 5 mcg/kg/min, 2.43 mls/hr Metoprolol Tartrate (Lopressor) 5 mg IVP Q6H [facility] Last Admin: 02/20/17 15:07 Dose: 5 mg Ondansetron HCl (Zofran Inj) 4 mg IVP Q6 PRN PRN Reason: Nausea/Vomiting Last Admin: 02/13/17 16:26 Dose: 4 mg Pantoprazole Sodium (Protonix Inj) 40 mg IVP DAILY [facility] Last Admin: 02/20/17 10:06 Dose: 40 mg - Labs Labs: 02/20/17 06:45 02/20/17 06:45 PT 17.7 Seconds (9.9-11.8) H 02/16/17 06:08 INR 1.64 (0.93-1.08) H 02/16/17 06:08 APTT 33.6 Seconds (23.7-30.8) H 02/16/17 06:08 Attending/Attestation - Attestation I have personally seen and examined this patient.: Yes I have fully participated in the care of the patient.: Yes I have reviewed all pertinent clinical information, including history, physical exam and plan: Yes Notes (Text): I have seen and examined the patient at bedside. Agree with the above note with the following additions/ exceptions: Briefly this is 51 year old female with history of Crohn's disease, colostomy, asthma, bipolar disorder, polysubstance abuse, recent diagnoses of adenocarcinoma of the colon , psoriasis, anxiety, depression who presented with generalized weakness and leg pain. Colonoscopy revealed large bulky friable mass with severe stenosis however no biopsy was performed. Her stay was complicated by septic shock and pneumoperitoneum due to abdominal perforation ( family preferred non operative management) and was found to have metabolic acidosis, elevated troponin, transaminitis due to shock liver, DIC, anemia, thrombocytopenia, acute kidney injury, E Fecalis bacteremia, E coli/ proteus UTI and ventilator dependent respiratory failure. Patient is DNR. Today she is afebrile however abdomen is slightly more distended and there is a concern for acalculous cholecystitis. Plan for HIDA scan today. Leukocytosis improved slightly. CT abdomen/pelvis showed no change. She is on FIO2 of 70%. Manage vent as per pediatrician/medical doctor. CXR showed no change in pulmonary edema. Echo revealed EF of 40% and moderately reduced RV systolic dysfunction and global hypokinesis of LV. Continue lasix. Continue meropenem, flagyl, diflucan and vanco. Patient is sedated. Palliative care consult appreciated. Today hb improved to 10.5 and thrombocytopenia is persistent. HIT antibody negative. Most likely thrombocytopenia is due to consumption coagulopathy due to sepsis. Overall prognosis is guarded. Dr Mari Kincadi
[2017-02-20 14:37] LABS: ABG MECHANICAL RATE 22; ARTERIAL BLOOD GAS HCO3 23.9 mmol/L (21-28); ARTERIAL BLOOD GAS PH 7.27 (7.35-7.45); ATERIAL BLOOD GAS PEEP 10
--- NOTE | 2017-02-20 15:21 | RAD ---
HISTORY: hypercabic COMPARISON: 02/19/2017 FINDINGS: LUNGS: Pulmonary edema slightly increased PLEURA: No significant pleural effusion identified, no pneumothorax apparent. CARDIOVASCULAR: Mild cardiomegaly OSSEOUS STRUCTURES: No significant abnormalities. VISUALIZED UPPER ABDOMEN: Normal. OTHER FINDINGS: Central lines and tubes are unchanged IMPRESSION: Slight increase in pulmonary edema
--- NOTE | 2017-02-20 15:47 | NM ---
PROCEDURE: Nuclear Medicine Hepatobiliary Scan HISTORY: acalculous cholecystitis COMPARISON: None available. TECHNIQUE: 5.1 mCi of technetium 99m Mebrofenin was administered intravenously. Planar images of the abdomen were obtained at 5 min intervals to 60 mins. Delayed images were also obtained. FINDINGS: LIVER: Timely and homogenous uptake. COMMON BILE DUCT: identified at 45 mins. GALLBLADDER: identified at 4 hours SMALL BOWEL: Not visualize IMPRESSION: No evidence of cholecystitis. There is delayed visualization of the gallbladder.
[2017-02-20] MEDS: Propofol 10 mg/ml 1,000 MG/100 ML VIAL IV PRN ×2 (16:00→20:30)
--- NOTE | 2017-02-20 16:54 | CP.PCM.PN ---
Subjective - Date & Time of Evaluation Date of Evaluation: 02/20/17 Time of Evaluation: 16:00 - Subjective Subjective: Infectious Disease Follow Up: February 20, 2017 50 yo female with history of Crohn's disease admitted for groin and abdominal pain. She was recently discharged from the hospital with Doxycycline and Augmentin. During the hospitalization the patient short of breath, tachycardic , and tachypnic. Patient became hypotensive and required admission to the MICU. The patient required pressors and intubation and ventilation. The patient remains on multiple pressors and received 4 units of PRBCs and FFPs. Very poor prognosis. The patient remains intubated. Little response to noxious stimuli. Her acidosis improved. Respiratory functions did show improvement. Hemodynamically staple. She remains intubated and ventilated and multiple pressors. Withdraws to pain. non-purposeful movement of extremities. Objective - Vital Signs/Intake and Output Vital Signs (last 24 hours): Temp Pulse Resp BP Pulse Ox 98.1 F 85 23 137/103 H 91 L 02/20/17 13:09 02/20/17 15:07 02/20/17 13:09 02/20/17 15:58 02/20/17 14:00 Intake and Output: 02/20/17 02/20/17 06:59 18:59 Intake Total 1486 605 Output Total 1225 Balance 261 605 - Medications Medications: Current Medications Acetylcysteine (Acetylcysteine 20%) 4 ml IH [id number] [facility] Last Admin: 02/17/17 19:48 Dose: Not Given Albuterol Sulfate (Albuterol 0.083% Inhal Amarilys (2.5 Mg/3 Ml) Ud) 2.5 mg IH [id number] [facility] Last Admin: 02/20/17 15:29 Dose: 2.5 mg Arformoterol Tartrate (Brovana) 15 mcg IH [id number] [facility] Last Admin: 02/20/17 07:33 Dose: 15 mcg Budesonide (Pulmicort Respules) 0.5 mg IH [id number] [facility] Last Admin: 02/20/17 07:33 Dose: 0.5 mg Clonazepam (Klonopin) 1 mg PO BID [facility] PRN Reason: Protocol Last Admin: 02/14/17 10:00 Dose: Not Given Enalaprilat (Vasotec Iv) 1.25 mg IVP Q6H [facility] Last Admin: 02/20/17 15:09 Dose: 1.25 mg Furosemide (Lasix) 40 mg IVP Q8H [facility] Last Admin: 02/20/17 15:58 Dose: 40 mg Hydrocortisone Sodium Succinate (Solu-Cortef) 50 mg IVP DAILY [facility] Last Admin: 02/20/17 10:05 Dose: 50 mg Hydromorphone HCl (Dilaudid) 2 mg IVP Q4H [facility] Last Admin: 02/20/17 16:43 Dose: 2 mg Meropenem 1g/NS 100mL IVPB (Meropenem 1g/Ns 100ml Ivpb) 1 gm in 100 mls @ 100 mls/hr IVPB Q8 [facility] PRN Reason: Protocol Last Admin: 02/20/17 15:08 Dose: 100 mls/hr Dobutamine HCl/Dextrose (Dobutamine/Dextrose 5% 500mg/250ml) 500 mg in 250 mls @ 6.328 mls/hr IV .Q24H PRN; Protocol; 2.5 MCG/KG/MIN PRN Reason: TITRATE PER PROTOCOL Last Admin: 02/18/17 22:37 Dose: 2.5 mcg/kg/min, 6.328 mls/hr Vancomycin HCl 1.5 gm/ Sodium (Chloride) 500 mls @ 167 mls/hr IVPB Q12 [facility] PRN Reason: Protocol Last Admin: 02/20/17 10:07 Dose: 167 mls/hr Fentanyl Citrate (Fentanyl Citrate/Sodium Chloride 1 Mg/100 Ml) 1,000 mcg in 100 mls @ 2 mls/hr IV .Q24H PRN; Protocol; 20 MCG/HR PRN Reason: TITRATE PER MD ORDER Last Admin: 02/20/17 13:17 Dose: 100 mcg/hr, 10 mls/hr Fluconazole (Diflucan Iv 200 Mg/100 Ml Ns) 100 mls @ 100 mls/hr IVPB DAILY [facility] PRN Reason: Protocol Last Admin: 02/20/17 09:05 Dose: 100 mls/hr Amino Acids/Electrolytes/Dextrose (Clinimix 5/20 % "E" (2000 Ml)) 2,000 mls @ 83.333 mls/hr IV .Q24H [facility] Last Admin: 02/19/17 18:28 Dose: 83.333 mls/hr Metronidazole (Flagyl) 500 mg in 100 mls @ 100 mls/hr IVPB Q6 [facility] PRN Reason: Protocol Last Admin: 02/20/17 12:37 Dose: 100 mls/hr Propofol (Diprivan) 1,000 mg in 100 mls @ 2.43 mls/hr IV .Q24H PRN; Protocol; 5 MCG/KG/MIN PRN Reason: TITRATE PER MD ORDER Last Admin: 02/20/17 16:00 Dose: 5 mcg/kg/min, 2.43 mls/hr Metoprolol Tartrate (Lopressor) 5 mg IVP Q6H [facility] Last Admin: 02/20/17 15:07 Dose: 5 mg Ondansetron HCl (Zofran Inj) 4 mg IVP Q6 PRN PRN Reason: Nausea/Vomiting Last Admin: 02/13/17 16:26 Dose: 4 mg Pantoprazole Sodium (Protonix Inj) 40 mg IVP DAILY [facility] Last Admin: 02/20/17 10:06 Dose: 40 mg - Labs Labs: 02/20/17 06:45 02/20/17 06:45 PT 17.7 Seconds (9.9-11.8) H 02/16/17 06:08 INR 1.64 (0.93-1.08) H 02/16/17 06:08 APTT 33.6 Seconds (23.7-30.8) H 02/16/17 06:08 - Constitutional Appears: Non-toxic, No Acute Distress, Chronically Ill - Head Exam Head Exam: ATRAUMATIC, NORMOCEPHALIC - Eye Exam Eye Exam: EOMI, PERRL Pupil Exam: NORMAL ACCOMODATION, PERRL - ENT Exam ENT Exam: Mucous Membranes Moist, Normal External Ear Exam, TM's Normal Bilaterally - Neck Exam Neck Exam: Full ROM, Normal Inspection - Respiratory Exam Respiratory Exam: Clear to Ausculation Bilateral, NORMAL BREATHING PATTERN. absent: Rales, Rhonchi, Wheezes - Cardiovascular Exam Cardiovascular Exam: REGULAR RHYTHM, RRR, +S1, +S2 - GI/Abdominal Exam GI & Abdominal Exam: Soft, Normal Bowel Sounds. absent: Distended, Tenderness - Extremities Exam Extremities Exam: Full ROM, Normal Inspection - Neurological Exam Additional comments: AAO x 0, intubated and ventilated. withdraws to pain. Non-purposeful movement of extremities. - Psychiatric Exam Additional comments: withdraws to pain/noxious stimuli. - Skin Skin Exam: Intact, Normal Color Assessment and Plan - Assessment and Plan (Free Text) Assessment: 51 yo female currently intubated and ventilated and poorly responsive with hypotension requiring pressor support with 4 medications. Currently on Meropenem and Vancomycin. Extremely poor prognosis. Supportive care. There were concerns for abdominal perforation and findings of extensive abdominal ascites and pneumoperitoneum. Severe anemia requiring PRBC transfusions. Meropenem is a reasonable choice for generalized antibiotic coverage. Continue on meropenem, flagyl, vancomycin, and diflucan for now. Supportive care. Dismal prognosis. Lactic acidosis improved but respiratory function has remained about the same or slightly better. Patient hemodynamically stable. Arousable but does not follow commands. Seems to respond to name. Thank you for allowing me to participate in the care of the patient, we will follow with you.
--- NOTE | 2017-02-20 18:29 | EEG ---
DATE: 02/20/2017 Reading the EEG. CONDITION OF THIS RECORDING: Drowsy. DIAGNOSIS: Evaluate for seizure. MEDICATIONS: Reviewed via nurse's reconciliation sheet. INTERPRETATION: This is a 16-channel international recording. The background activity is composed o f 6-7 cycles per second. There was limited amount of beta activity of 6-20 cycles per second seen in this recording. There was increased amount of theta activity 5-7 cycles per second seen in this rec ording. Drowsiness was characterized by mixed beta and theta activities. Sleep was characterized by vertex transient waves, sleep spindles and bilateral slowing. Photic stimulation showed no change i n the tracing. No paroxysmal activity noted in this recording. CONCLUSION: Abnormal electroencephalogram due to presence of diffuse slowing throughout the EEG cons istent with bilateral cerebral dysfunction. No epileptiform activity. Please clinically correlate. Steven Villalpando MD cc: [id number] TT: 02/20/2017 18:28:30 Confirmation # [id number] Dictation # [id number] luiz
--- NOTE | 2017-02-20 19:04 | PCM.PROC ---
Procedures Attestation:: I certify that I have explained the specified Operation(s) or Procedure(s), risks, benefits and reasonable alternatives to the Patient and/or other person responsible. The opportunity was given to ask questions and all questions answered - Central Line Placement Right Internal Jugular Triple Lumen Catheter Aseptic technique was employed throughout the procedure: Hand Hygiene done prior to procedure (Central Liner removal; trandelenburg; manual compression x 5 minutes. Occlusive pressure dressing)
[2017-02-20 19:06] LABS: VENOUS BLOOD GAS BASE EXCESS 5.1 mmol/L (0.0-2.0); VENOUS BLOOD PH 7.42 (7.32-7.43)
--- NOTE | 2017-02-20 19:07 | PN ---
DATE: 02/20/2017 The patient is in ICU bed 4. SUBJECTIVE: I was asked to see the patient because of progressively worsening thrombocytopenia in th e background of septic shock. I had seen several days earlier for her diagnosis of metastatic carcin olive at which time patient had had a colonoscopy; subsequent to that, had a surgical abdomen. The pat ient could not go for surgery, was managed aggressively medically in the unit and she seems to have g radually improved from the point of view as far as blood pressure and overall medical status is rizwan rned. The patient is more alert now. She follows commands. She is moving all extremities. She is on fentanyl 75 mcg per hour and she is on Precedex 0.5 mcg per kilogram per hour. PHYSICAL EXAMINATION: GENERAL: The patient is examined in the unit. VITAL SIGNS: Heart rate is 78, blood pressure 132/89, O2 sat is 97%, 75% FIO2. HEENT: Head is normocephalic, atraumatic. LUNGS: Reveal few crackles in the bibasilar area. HEART: Reveals S1 and S2 to be distant. ABDOMEN: Soft, nontender, nondistended. EXTREMITIES: Lower extremities reveal trace bilateral pedal and ankle edema. NEUROLOGIC: The patient moves all extremities spontaneously. SKIN: Moist. PSYCHIATRIC: The patient is alert and oriented x 3. LABORATORY DATA: Reveals a white count of 15, down from 17, hemoglobin is 10.5, platelet count is 22 . Other workup that was done for DIC shows a fibrinogen to be elevated, 5 ____ are elevated. Thromb in time is pending. But clinically patient has low-grade DIC. Sodium is 147, K is 3.1, chloride 112 , CO2 26, BUN of 44, creatinine 0.7, glucose is 197, AST 78, ALT 131. MEDICATIONS: Reviewed. She is on DuoNeb, TPN, Brovana, budesonide, Klonopin, Precedex, fluconazole, Vasotec, Lasix all given IV, hydrocortisone 50 mg IV q. 12 hours, taper to daily, Dilaudid 2 mg IV q . 4 hours, meropenem and vancomycin IV. ASSESSMENT NOTES AND PLAN: This is a 50-year-old female, recovering from septic shock with multiorga n system failure. Despite significant improvement in renal function, cardiac function, hemodynamic s tatus, she still requires ventilatory support and appears to be in severe pulmonary edema, combinatio n of both cardiogenic and noncardiogenic edema. The patient is going for a HIDA scan to rule out cho lecystitis; if so discovered, cholecystotomy tube will have to be placed. The patient is also going for PICC line as well. She is on antifungal antibiotics along with antibacterial antibiotics. The p atient is continuing to deteriorate. From my perspective at this time, would not push for anything d ramatic from the low grade DIC point review, patient will benefit from platelet transfusion to mainta in the level above 50 for potential cholecystotomy and maybe for even a tracheostomy. The patient is still on medications for her cardiovascular events and from a renal point of view, she is significan tly improved. Overall, the prognosis is still guarded and I agree with Dr. Lopez's plan for sympt omatic management from the heme point of view. If she continues to have significant evidence of DIC, then one could consider low dose heparin infusion at fixed rate. We will discuss with you as well. Alessandra Lucas MD cc: [id number] TT: 02/20/2017 19:06:20 Confirmation # [id number] Dictation # [id number] luiz
--- NOTE | 2017-02-20 20:41 | PN ---
DATE: 02/20/2017 SUBJECTIVE: The patient is seen in the ICU. She is sedated. She is on mechanical ventilation. She is unresponsive. She remains critically ill. She is not progressing as expected. PHYSICAL EXAMINATION: GENERAL: A middle-aged lady lying in bed. VITAL SIGNS: Blood pressure 148/109, heart rate 91, respiratory rate 23, temperature 98.1. HEENT: Normocephalic, atraumatic, positive pallor. NECK: Supple, no JVD. LUNGS: Bilateral equal air entry, bilateral rhonchi. CARDIAC: S1, S2, regular rate and rhythm, no murmur, no rub. ABDOMEN: Obese, distended, firm, bowel sounds absent. EXTREMITIES: 2+ pitting edema of lower extremities, cyanosis of the periphery. INTAKE AND OUTPUT 1686/1225. LABORATORY DATA: WBC 15, hemoglobin 10.5, hematocrit 33, platelets 22. Sodium 147, potassium 3.1, chloride 112, CO2 of 26, BUN 44, creatinine 0.7, glucose 197 , calcium 8.8, total bilirubin 2.1, albumin 2.6, corrected calcium is 9.8. Urinalysis yesterday yellow, slightly cloudy, pH 6.0, specific gravity 1.025, protein 100, blood moderate. Leukocyte esterase negative. HIT antibody negative. HIV negative. Fibrinogen 631. FTP greater than 40. CURRENT MEDICATIONS: Mucomyst, albuterol, Brovana, hyperal, Diflucan, Dilaudid , dobutamine at 2.5, Flagyl, Klonopin, Lasix, Lopressor, meropenem, Precedex, Protonix, Solu-Cortef, vancomycin 1.5 grams q. 12 hours, Vasotec 1.25, IVP q. 6 , Zofran. ASSESSMENT AND PLAN: Critically ill patient recovering from septic shock, multiorgan failure. Resolved acute kidney injury. Remains vent dependent. Persistent leukocytosis, fevers. Severe anemia. Thrombocytopenia. The patient with acute abdomen. The patient is scheduled for a HIDA scan today to rule out acalculous cholecystitis. At this time, patient is DNR. The patient is receiving a PICC line today. Tracheostomy is being considered. 1. Resolved acute kidney injury. 2. Resolving sepsis? 3. Off pressors at this time. 4. Severe anemia, status post PRBC yesterday. 5. Thrombocytopenia, receiving platelets today. 6. Hypernatremia. 7. Hypokalemia. 8. Free air in the abdomen. 9.? Acalculous cholecystitis. PLAN: 1. Continue current management. 2. Continue antibiotics as per ID recommendation. 3. D5W at 40 mL per hour. 4. Increase potassium and hyperalimentation. 5. Prognosis is extremely grim. 6. Recommend dialog with family regarding medical futility. > 35min spent in care coordination Lucinda Kelley MD cc: [phone] TT: 02/20/2017 20:40:23 Confirmation # [id number] Dictation # [id number] denise ROSE
[2017-02-21] MEDS: metroNIDAZOLE IV 500 mg/100 ml 500 MG/100 ML BAG IVPB SCH ×4 (00:11→17:01)
[2017-02-21] MEDS: HYDROmorphone 2 mg/ml ISec IVP SCH ×6 (00:12→21:00)
[2017-02-21] MEDS: Fentanyl 1000mcg/100ml NS 1,000 MCG/100 ML BAG IV PRN ×2 (00:19→11:30)
[2017-02-21] MEDS: Metoprolol 1 mg/ml Inj IVP SCH ×4 (02:48→21:01)
[2017-02-21] MEDS: Propofol 10 mg/ml 1,000 MG/100 ML VIAL IV PRN ×3 (03:22→16:45)
[2017-02-21] MEDS: EnalaprilAT 1.25 mg/ml Inj IVP SCH ×4 (03:29→21:45)
[2017-02-21] MEDS ORDERED: Dextrose 50% SYRINGE Inj (50 ml) IVP ONE (03:36)
[2017-02-21] MEDS: Meropenem 1g/NS 100mL IVPB 1 GM/100 ML PIGGYBACK IVPB SCH ×2 (06:19→13:09)
[2017-02-21 06:40] LABS: HEMATOCRIT 36.7 % (36.0-48.0); MEAN CELL VOLUME 87.8 fL (80.0-105.0); MEAN CORPUSCULAR HEMOGLOBIN 28.9 pg (25.0-35.0); RED CELL DISTRIBUTION WIDTH 17.3 % (11.5-14.5)
[2017-02-21 06:45] LABS: ADD MANUAL DIFF? YES; PLATELET COUNT 35 10^3/uL (120.0-450.0)
[2017-02-21 06:51] LABS: ALB/GLOB RATIO 0.8 (1.1-1.8); ALKALINE PHOSPHATASE 121 U/L (38-133); ALT/SGPT 98 U/L (7-56); AST/SGOT 67 U/L (15-39); BILIRUBIN,TOTAL 2.4 mg/dL (0.2-1.3); BLOOD UREA NITROGEN 45 mg/dL (7-21); CALCIUM 8.9 mg/dL (8.4-10.5); CARBON DIOXIDE 32 mmol/L (21-33); CHLORIDE 106 mmol/L (98-107); GFR AFRICAN-AMERICAN > 60; GLUCOSE,RANDOM 114 mg/dL (70-110); SODIUM 147 mmol/L (132-148); TOTAL PROTEIN 6.1 g/dL (5.8-8.3)
[2017-02-21] MEDS: Arformoterol 15 mcg/2 ml Inh Sol IH SCH ×2 (07:11→20:31)
[2017-02-21] MEDS: Albuterol 0.083% Inhal Sol (2.5 mg/3 mL) UD IH SCH (07:11)
[2017-02-21] MEDS: Budesonide 0.5 mg/2 ml Inhal Susp UD IH SCH ×2 (07:12→20:32)
[2017-02-21 07:36] LABS: POTASSIUM 2.4 mmol/L (3.6-5.0)
[2017-02-21 08:03] LABS: ATYPICAL LYMPHOCYTE 3 % (0.0-0.0); BAND 8 % (0-2); NEUTROPHIL 60 % (50.0-70.0)
[2017-02-21 08:04] LABS: ANISOCYTOSIS 1+; EOSINOPHIL 3 % (0.0-3.0); METAMYELOCYTE 3 %; MYELOCYTE 3 %; NUCLEATED RED BLOOD CELL 4 %; PLATELET ESTIMATE LOW (NORMAL); POIKILOCYTOSIS SLIGHT
[2017-02-21 08:05] LABS: BURR CELLS SLIGHT; OVALOCYTES SLIGHT; TOXIC GRANULATION 1+
[2017-02-21 08:07] LABS: ARTERIAL BLOOD GAS HCO3 31.3 mmol/L (21-28); ARTERIAL BLOOD GAS O2 CAPACITY 16.9 mL/dl (16-24); ARTERIAL BLOOD GAS O2 CONTENT 16.6 ML/dl (15-23); ARTERIAL BLOOD GAS PH 7.56 (7.35-7.45); ARTERIAL BLOOD HGB O2 SAT 95.4 % (95.0-98.0); CARBOXYHEMOGLOBIN 2.1 % (0.5-1.5); HHB 1.5 % (0-5)
--- NOTE | 2017-02-21 08:53 | PN ---
DATE: 02/21/2017 SUBJECTIVE: The patient is on the ventilator, requiring O2 support of 70%. She continues to have sw ollen lower extremities, requiring diuresis and is felt to have pulmonary edema/ARDS. Mental status has not changed and the patient continues to get aggressive diuresis. PHYSICAL EXAMINATION: VITAL SIGNS: Note that her temperature is 99.4, pulse is 84, respirations 30 and BP is 142/78, O2 sa turation is 100%. HEENT: Head is atraumatic, normocephalic. Eyes reactive to light. Ears, nose and throat seemed to be within normal limits. NECK: Supple. No JVD, no thyroid enlargement, no lymph nodes. CARDIOVASCULAR: Heart has a regular rate and rhythm, normal S1, S2. LUNGS: Reveal bilateral rhonchi. ABDOMEN: Soft. Decreased bowel sounds. GENITALIA AND RECTAL: Deferred. MUSCULOSKELETAL: No joint deformities. EXTREMITIES: Reveal 2+ to 3+ edema. NEUROLOGIC: The patient is sedated on the ventilator. LABORATORY DATA: Her white count is 23.0, her hemoglobin is 12.1, hematocrit 36.5 and her platelets are 35,000. Her sodium is 147, potassium 2.4, chloride 106, CO2 of 32 with a BUN of 45, creatinine 0 .7, glucose of 123. Chest x-ray reveals bilateral infiltrates. IMPRESSION: This patient has respiratory failure requiring ventilator support. She has fluid overlo ad with pulmonary edema and possible acute respiratory distress syndrome. The patient has resolving septic shock and has a history of colon cancer with metastases and status post bowel perforation. Sh e has thrombocytopenia as well as hypokalemia. PLAN: We will continue with aggressive pulmonary toilet and continue with ventilator support and fol low her arterial blood gas and chest x-ray closely. The patient is getting albuterol as a bronchodil ator and is on fentanyl for comfort with the ventilator. The patient is getting Lasix for appropriat e diuresis and propofol for sedation. The patient is on Pulmicort as well as Solu-Medrol as well as vancomycin as an antibiotic. The patient has been getting meropenem as well. We will continue to fo llow closely and treat aggressively along with the other consultants and the primary care doctor. Bhavesh M Bey MD cc: [id number] TT: 02/21/2017 08:51:54 Confirmation # [id number] Dictation # [id number] tn
[2017-02-21] MEDS: Fluconazole IV 200mg/100 ml NS 100 ML IVPB SCH (09:18)
[2017-02-21] MEDS: Vancomycin 1.5 GM in Sodium Chloride 0.9% 500 ML IVPB SCH ×2 (09:18→21:00)
--- NOTE | 2017-02-21 09:53 | CP.PCM.PN ---
Subjective - Date & Time of Evaluation Date of Evaluation: 02/21/17 Time of Evaluation: 08:00 - Subjective Subjective: Surgery: Dr. Marti Pt seen and examined. Remains intubated/sedated in the ICU. No acute overnight events as per nursing, no fevers recorded overnight. Ostomy functioning with stool present in bag. Objective - Vital Signs/Intake and Output Vital Signs (last 24 hours): Temp Pulse Resp BP Pulse Ox 100.0 F H 83 30 H 109/79 98 02/21/17 08:00 02/21/17 08:00 02/21/17 08:00 02/21/17 08:51 02/21/17 08:00 Intake and Output: 02/21/17 02/21/17 06:59 18:59 Intake Total 2310.5 Output Total 3550 Balance -1239.5 - Medications Medications: Current Medications Acetylcysteine (Acetylcysteine 20%) 4 ml IH [id number] [facility] Last Admin: 02/17/17 19:48 Dose: Not Given Albuterol Sulfate (Albuterol 0.083% Inhal Amarilys (2.5 Mg/3 Ml) Ud) 2.5 mg IH [id number] PRN PRN Reason: Wheezing Arformoterol Tartrate (Brovana) 15 mcg IH [id number] [facility] Last Admin: 02/21/17 07:11 Dose: 15 mcg Budesonide (Pulmicort Respules) 0.5 mg IH [id number] [facility] Last Admin: 02/21/17 07:12 Dose: 0.5 mg Clonazepam (Klonopin) 1 mg PO BID [facility] PRN Reason: Protocol Last Admin: 02/14/17 10:00 Dose: Not Given Enalaprilat (Vasotec Iv) 1.25 mg IVP Q6H [facility] Last Admin: 02/21/17 08:51 Dose: 1.25 mg Furosemide (Lasix) 40 mg IVP Q8H [facility] Last Admin: 02/21/17 07:17 Dose: 40 mg Hydrocortisone Sodium Succinate (Solu-Cortef) 50 mg IVP DAILY [facility] Last Admin: 02/21/17 09:17 Dose: 50 mg Hydromorphone HCl (Dilaudid) 2 mg IVP Q4H [facility] Last Admin: 02/21/17 08:35 Dose: 2 mg Meropenem 1g/NS 100mL IVPB (Meropenem 1g/Ns 100ml Ivpb) 1 gm in 100 mls @ 100 mls/hr IVPB Q8 [facility] PRN Reason: Protocol Last Admin: 02/21/17 06:19 Dose: 100 mls/hr Dobutamine HCl/Dextrose (Dobutamine/Dextrose 5% 500mg/250ml) 500 mg in 250 mls @ 6.328 mls/hr IV .Q24H PRN; Protocol; 2.5 MCG/KG/MIN PRN Reason: TITRATE PER PROTOCOL Last Admin: 02/18/17 22:37 Dose: 2.5 mcg/kg/min, 6.328 mls/hr Vancomycin HCl 1.5 gm/ Sodium (Chloride) 500 mls @ 167 mls/hr IVPB Q12 [facility] PRN Reason: Protocol Last Admin: 02/21/17 09:18 Dose: 167 mls/hr Fentanyl Citrate (Fentanyl Citrate/Sodium Chloride 1 Mg/100 Ml) 1,000 mcg in 100 mls @ 2 mls/hr IV .Q24H PRN; Protocol; 20 MCG/HR PRN Reason: TITRATE PER MD ORDER Last Admin: 02/21/17 00:19 Dose: 100 mcg/hr, 10 mls/hr Fluconazole (Diflucan Iv 200 Mg/100 Ml Ns) 100 mls @ 100 mls/hr IVPB DAILY [facility] PRN Reason: Protocol Last Admin: 02/21/17 09:18 Dose: 100 mls/hr Amino Acids/Electrolytes/Dextrose (Clinimix 5/20 % "E" (2000 Ml)) 2,000 mls @ 83.333 mls/hr IV .Q24H [facility] Last Admin: 02/20/17 18:03 Dose: 83.333 mls/hr Metronidazole (Flagyl) 500 mg in 100 mls @ 100 mls/hr IVPB Q6 [facility] PRN Reason: Protocol Last Admin: 02/21/17 07:19 Dose: 100 mls/hr Propofol (Diprivan) 1,000 mg in 100 mls @ 2.43 mls/hr IV .Q24H PRN; Protocol; 5 MCG/KG/MIN PRN Reason: TITRATE PER MD ORDER Last Admin: 02/21/17 03:22 Dose: 20 mcg/kg/min, 9.72 mls/hr Potassium Chloride (Potassium Chloride 20 Meq/100 Ml) 20 meq in 100 mls @ 50 mls/hr IVPB Q2H [facility] Stop: 02/21/17 12:14 Last Admin: 02/21/17 08:36 Dose: 50 mls/hr Metoprolol Tartrate (Lopressor) 5 mg IVP Q6H [facility] Last Admin: 02/21/17 07:58 Dose: 5 mg Ondansetron HCl (Zofran Inj) 4 mg IVP Q6 PRN PRN Reason: Nausea/Vomiting Last Admin: 02/13/17 16:26 Dose: 4 mg Pantoprazole Sodium (Protonix Inj) 40 mg IVP DAILY [facility] Last Admin: 02/21/17 09:18 Dose: 40 mg - Labs Labs: 02/21/17 05:40 02/21/17 05:40 PT 17.7 Seconds (9.9-11.8) H 02/16/17 06:08 INR 1.64 (0.93-1.08) H 02/16/17 06:08 APTT 33.6 Seconds (23.7-30.8) H 02/16/17 06:08 - Constitutional Appears: No Acute Distress - ENT Exam Additional comments: ET/OGT in place - Respiratory Exam Respiratory Exam: NORMAL BREATHING PATTERN (mechanical ventilation ) - Cardiovascular Exam Cardiovascular Exam: Tachycardia - GI/Abdominal Exam GI & Abdominal Exam: Distended, Soft Additional comments: LLQ ostomy in place with brown stool in bag - Extremities Exam Extremities Exam: Pedal Edema Additional comments: R hand digits with blue discoloration noted, however 2+ b/l pulses in both arms - Skin Skin Exam: Dry, Warm Assessment and Plan - Assessment and Plan (Free Text) Assessment: 51F with rectal CA in septic shock with multi-organ failure Plan: - cont management as per ICU and primary teams - no surgical intervention planned at this time - d/w Dr. Kaia Duarte, PGY-2 Surgery
--- NOTE | 2017-02-21 09:54 | RAD ---
HISTORY: Intubated. Technique: Single view portable semi erect @ 06:15. COMPARISON: February 20, 2017. FINDINGS: LUNGS: Improving pulmonary edema. PLEURA: No significant pleural effusion identified, no pneumothorax apparent. CARDIOVASCULAR: No significant interval change compared to the prior examination(s). OSSEOUS STRUCTURES: No significant abnormalities. VISUALIZED UPPER ABDOMEN: Normal. OTHER FINDINGS: She Stable, satisfactory position ventilatory, vascular and nasogastric apparatus. This includes the PICC line. The IJ catheter has been removed. IMPRESSION: Improving pulmonary edema.
--- NOTE | 2017-02-21 11:13 | PN ---
DATE: 02/21/2017 SUBJECTIVE: The patient once again is seen in the ICU. She is sedated on a ventilator. Her renal p arameters have improved to some extent since my last visit. Her creatinine is down to 0.7. Her BUN is slightly higher at 45. She has significant urine output. She remains hypokalemic despite receivi ng potassium to her hyperalimentation. She will be receiving K riders today. MEDICATIONS: Medication list reviewed. The patient is currently on acetylcysteine, albuterol, Brova na, hyperalimentation, IV Diflucan, Dilaudid, Diprivan. Patient is off Dobutrex. She is on fentanyl , Flagyl, IV Lasix, meropenem, potassium supplements, Protonix, Pulmicort, solu cortef, IV vancomycin , IV Vasotec p.r.n. and Zofran p.r.n. OBJECTIVE: INTAKE/OUTPUT: Intake 5528, output 6610. VITAL SIGNS: Blood pressure is 109/79, temperature 100, respiratory rate is 30 with a pulse of 83. Oxygen saturation is 98% with an FIO2 of 70. HEENT: Eyes are closed. The patient is intubated. NECK: No neck vein distention. CHEST: Bilateral rhonchi. No rales, no wheezing. CARDIOVASCULAR: Shows an S1, S2 which are normal. No murmurs, rubs or gallops noted. ABDOMEN: Mildly distended. Soft. Bowel sounds are normal. Left-sided colostomy. EXTREMITIES: Trace edema in her lower extremity bilaterally. Diminished lower extremity pulses bila terally. LABORATORY DATA AND IMAGING: Chest x-ray done today shows improving pulmonary edema. ASSESSMENT: 1. Mild prerenal azotemia in the setting of sepsis, hypotension, urinary tract infection, septicemia . BUN and creatinine today are 45 with a creatinine of 0.7. 2. Hypokalemia. Despite receiving hyperalimentation with potassium, the patient's potassium level t rosette is 2.4. Her last magnesium level was 2.0. The patient will receive K riders as per the intensi vist and house staff. 3. History of Crohn's disease, history of adenocarcinoma of the colon, history of intraabdominal abs cess. Status post laparotomy 11/2016 with hemicolectomy and left side colostomy. 4. Status post gastrointestinal bleed with anemia. Hemoglobin is presently stable at 12.1. Status post total of 8 units of packed red blood cells. 5. History of right-sided hydronephrosis, possibly secondary to retroperitoneal and bilateral inguin al lymphadenopathy. 6. The patient is a DNR. 7. History of anemia with thrombocytopenia, currently stable post-transfusions. PLAN: 1. The patient is presently off pressors. 2. Continue IV antibiotic therapy. 3. Agree with potassium supplementation. 4. Continue to keep patient in fluid balance with the use of IV Lasix. 5. Discussed with ICU staff. Arie Rodriguez MD cc: [phone] TT: 02/21/2017 11:12:58 Confirmation # [id number] Dictation # [id number]
--- NOTE | 2017-02-21 12:43 | CP.PCM.PN ---
<Melchor Pringle - Last Filed: 02/21/17 12:35> Subjective - Date & Time of Evaluation Date of Evaluation: 02/21/17 Time of Evaluation: 12:35 - Subjective Subjective: Patient evaluated at bedside. Afebrile overnight. Eyes are open. She follows simple commands only. Dobutamine is discontinued. She is hemodynamically stable. Continued on Precedex, Fentanyl. Objective - Vital Signs/Intake and Output Vital Signs (last 24 hours): Temp Pulse Resp BP Pulse Ox 100.0 F H 83 30 H 109/79 98 02/21/17 08:00 02/21/17 08:00 02/21/17 08:00 02/21/17 08:51 02/21/17 08:00 Intake and Output: 02/21/17 02/21/17 06:59 18:59 Intake Total 2310.5 Output Total 3550 Balance -1239.5 - Medications Medications: Current Medications Acetylcysteine (Acetylcysteine 20%) 4 ml IH [id number] [facility] Last Admin: 02/17/17 19:48 Dose: Not Given Albuterol Sulfate (Albuterol 0.083% Inhal Amarilys (2.5 Mg/3 Ml) Ud) 2.5 mg IH [id number] PRN PRN Reason: Wheezing Arformoterol Tartrate (Brovana) 15 mcg IH [id number] [facility] Last Admin: 02/21/17 07:11 Dose: 15 mcg Budesonide (Pulmicort Respules) 0.5 mg IH [id number] [facility] Last Admin: 02/21/17 07:12 Dose: 0.5 mg Clonazepam (Klonopin) 1 mg PO BID [facility] PRN Reason: Protocol Last Admin: 02/14/17 10:00 Dose: Not Given Enalaprilat (Vasotec Iv) 1.25 mg IVP Q6H [facility] Last Admin: 02/21/17 08:51 Dose: 1.25 mg Furosemide (Lasix) 40 mg IVP Q8H [facility] Last Admin: 02/21/17 07:17 Dose: 40 mg Hydrocortisone Sodium Succinate (Solu-Cortef) 50 mg IVP DAILY [facility] Last Admin: 02/21/17 09:17 Dose: 50 mg Hydromorphone HCl (Dilaudid) 2 mg IVP Q4H [facility] Last Admin: 02/21/17 08:35 Dose: 2 mg Meropenem 1g/NS 100mL IVPB (Meropenem 1g/Ns 100ml Ivpb) 1 gm in 100 mls @ 100 mls/hr IVPB Q8 [facility] PRN Reason: Protocol Last Admin: 02/21/17 06:19 Dose: 100 mls/hr Dobutamine HCl/Dextrose (Dobutamine/Dextrose 5% 500mg/250ml) 500 mg in 250 mls @ 6.328 mls/hr IV .Q24H PRN; Protocol; 2.5 MCG/KG/MIN PRN Reason: TITRATE PER PROTOCOL Last Admin: 02/18/17 22:37 Dose: 2.5 mcg/kg/min, 6.328 mls/hr Vancomycin HCl 1.5 gm/ Sodium (Chloride) 500 mls @ 167 mls/hr IVPB Q12 [facility] PRN Reason: Protocol Last Admin: 02/21/17 09:18 Dose: 167 mls/hr Fentanyl Citrate (Fentanyl Citrate/Sodium Chloride 1 Mg/100 Ml) 1,000 mcg in 100 mls @ 2 mls/hr IV .Q24H PRN; Protocol; 20 MCG/HR PRN Reason: TITRATE PER MD ORDER Last Admin: 02/21/17 00:19 Dose: 100 mcg/hr, 10 mls/hr Fluconazole (Diflucan Iv 200 Mg/100 Ml Ns) 100 mls @ 100 mls/hr IVPB DAILY [facility] PRN Reason: Protocol Last Admin: 02/21/17 09:18 Dose: 100 mls/hr Amino Acids/Electrolytes/Dextrose (Clinimix 5/20 % "E" (2000 Ml)) 2,000 mls @ 83.333 mls/hr IV .Q24H [facility] Last Admin: 02/20/17 18:03 Dose: 83.333 mls/hr Metronidazole (Flagyl) 500 mg in 100 mls @ 100 mls/hr IVPB Q6 [facility] PRN Reason: Protocol Last Admin: 02/21/17 11:17 Dose: 100 mls/hr Propofol (Diprivan) 1,000 mg in 100 mls @ 2.43 mls/hr IV .Q24H PRN; Protocol; 5 MCG/KG/MIN PRN Reason: TITRATE PER MD ORDER Last Admin: 02/21/17 03:22 Dose: 20 mcg/kg/min, 9.72 mls/hr Metoprolol Tartrate (Lopressor) 5 mg IVP Q6H [facility] Last Admin: 02/21/17 07:58 Dose: 5 mg Ondansetron HCl (Zofran Inj) 4 mg IVP Q6 PRN PRN Reason: Nausea/Vomiting Last Admin: 02/13/17 16:26 Dose: 4 mg Pantoprazole Sodium (Protonix Inj) 40 mg IVP DAILY [facility] Last Admin: 02/21/17 09:18 Dose: 40 mg - Labs Labs: 02/21/17 05:40 02/21/17 05:40 PT 17.7 Seconds (9.9-11.8) H 02/16/17 06:08 INR 1.64 (0.93-1.08) H 02/16/17 06:08 APTT 33.6 Seconds (23.7-30.8) H 02/16/17 06:08 - Head Exam Head Exam: ATRAUMATIC, NORMOCEPHALIC - Eye Exam Eye Exam: PERRL - ENT Exam ENT Exam: Mucous Membranes Moist - Neck Exam Neck Exam: absent: Lymphadenopathy - Respiratory Exam Respiratory Exam: Rhonchi - Cardiovascular Exam Cardiovascular Exam: Tachycardia, +S1, +S2 - GI/Abdominal Exam GI & Abdominal Exam: Distended, Soft. absent: Rigid - Extremities Exam Extremities Exam: Pedal Edema - Neurological Exam Neurological Exam: Awake - Skin Skin Exam: Dry, Warm Assessment and Plan - Assessment and Plan (Free Text) Assessment: 51 year old female with past medical history of Crohns disease, asthma, bipolar disorder, polysubstance abuse and recent diagnoses of adenocarcinoma of the colon. Patient is in the ICU recovering from Septic shock. Renal function is improving as well as cardiac function, shock liver and hemodynamic status. There is a concern for acalculous cholecystitis however HIDA was negative no surgical intervention planned. Septic shock 2/2 abdominal perforation complicated by ESBL urosepsis - manage per CCU team - continue Fluconazole empirically. continue flagyl IV, vancomycin. - ID following - Palliative care is following and discussing end of life care with patient's family. Eventual trach/peg to be discussed. Blue/dusky discoloration to right fingers concerning for thrombus - doppler was done. no evidence of thrombus at bedside eval. awaiting official read acute kidney injury 2/2 septic shock, multi-organ dysfunction syndrome - renal function is improving - avoiding nephrotoxic drugs when possible - maintaining MAP >65 transaminitis 2/2 shock liver in setting of septic shock - liver enzymes trending down - continue to maintain MAP >65 - monitor liver enzymes daily thrombocytopenia 2/2 sepsis, bone marrow suppression - transfuse per ICU team - discussed with hematology. awaiting further hematology lab results. - daily CBC - SCD's - SHARON panel negative bacteremia - E. faecalis in blood culture - continue abx per ID, ICU team UTI - Proteus mirabilis, ESBL in urine - continue abx as above Adenocarcinoma of colon: - heme/onc following - Ct of chest shows interstitial infiltrates with extensive bibasilar consolidations. Extensive B/L and medistinal LAD. <Mari Kincaid B - Last Filed: 02/22/17 18:49> Objective - Vital Signs/Intake and Output Vital Signs (last 24 hours): Temp Pulse Resp BP Pulse Ox 98.1 F 108 H 36 H 96/68 L 99 02/21/17 16:00 02/21/17 16:00 02/21/17 16:00 02/21/17 16:02 02/21/17 16:00 Intake and Output: 02/21/17 02/21/17 06:59 18:59 Intake Total 2310.5 200 Output Total 3550 Balance -1239.5 200 - Medications Medications: Current Medications Acetylcysteine (Acetylcysteine 20%) 4 ml IH [id number] [facility] Last Admin: 02/17/17 19:48 Dose: Not Given Albuterol Sulfate (Albuterol 0.083% Inhal Amarilys (2.5 Mg/3 Ml) Ud) 2.5 mg IH [id number] PRN PRN Reason: Wheezing Arformoterol Tartrate (Brovana) 15 mcg IH [id number] [facility] Last Admin: 02/21/17 07:11 Dose: 15 mcg Budesonide (Pulmicort Respules) 0.5 mg IH [id number] [facility] Last Admin: 02/21/17 07:12 Dose: 0.5 mg Clonazepam (Klonopin) 1 mg PO BID [facility] PRN Reason: Protocol Last Admin: 02/14/17 10:00 Dose: Not Given Enalaprilat (Vasotec Iv) 1.25 mg IVP Q6H [facility] Last Admin: 02/21/17 16:02 Dose: 1.25 mg Furosemide (Lasix) 40 mg IVP Q12H [facility] Last Admin: 02/21/17 14:45 Dose: Not Given Hydrocortisone Sodium Succinate (Solu-Cortef) 50 mg IVP DAILY [facility] Last Admin: 02/21/17 09:17 Dose: 50 mg Hydromorphone HCl (Dilaudid) 2 mg IVP Q4H [facility] Last Admin: 02/21/17 12:34 Dose: 2 mg Meropenem 1g/NS 100mL IVPB (Meropenem 1g/Ns 100ml Ivpb) 1 gm in 100 mls @ 100 mls/hr IVPB Q8 [facility] PRN Reason: Protocol Last Admin: 02/21/17 13:09 Dose: 100 mls/hr Dobutamine HCl/Dextrose (Dobutamine/Dextrose 5% 500mg/250ml) 500 mg in 250 mls @ 6.328 mls/hr IV .Q24H PRN; Protocol; 2.5 MCG/KG/MIN PRN Reason: TITRATE PER PROTOCOL Last Admin: 02/18/17 22:37 Dose: 2.5 mcg/kg/min, 6.328 mls/hr Vancomycin HCl 1.5 gm/ Sodium (Chloride) 500 mls @ 167 mls/hr IVPB Q12 [facility] PRN Reason: Protocol Last Admin: 02/21/17 09:18 Dose: 167 mls/hr Fentanyl Citrate (Fentanyl Citrate/Sodium Chloride 1 Mg/100 Ml) 1,000 mcg in 100 mls @ 2 mls/hr IV .Q24H PRN; Protocol; 20 MCG/HR PRN Reason: TITRATE PER MD ORDER Last Admin: 02/21/17 11:30 Dose: 100 mcg/hr, 10 mls/hr Fluconazole (Diflucan Iv 200 Mg/100 Ml Ns) 100 mls @ 100 mls/hr IVPB DAILY [facility] PRN Reason: Protocol Last Admin: 02/21/17 09:18 Dose: 100 mls/hr Amino Acids/Electrolytes/Dextrose (Clinimix 5/20 % "E" (2000 Ml)) 2,000 mls @ 83.333 mls/hr IV .Q24H [facility] Last Admin: 02/20/17 18:03 Dose: 83.333 mls/hr Metronidazole (Flagyl) 500 mg in 100 mls @ 100 mls/hr IVPB Q6 [facility] PRN Reason: Protocol Last Admin: 02/21/17 11:17 Dose: 100 mls/hr Propofol (Diprivan) 1,000 mg in 100 mls @ 2.43 mls/hr IV .Q24H PRN; Protocol; 5 MCG/KG/MIN PRN Reason: TITRATE PER MD ORDER Last Admin: 02/21/17 10:55 Dose: 20 mcg/kg/min, 9.72 mls/hr Potassium Chloride (Potassium Chloride 20 Meq/100 Ml) 20 meq in 100 mls @ 50 mls/hr IVPB Q2H [facility] Stop: 02/21/17 20:14 Last Admin: 02/21/17 16:30 Dose: 50 mls/hr Metoprolol Tartrate (Lopressor) 5 mg IVP Q6H [facility] Last Admin: 02/21/17 14:46 Dose: Not Given Ondansetron HCl (Zofran Inj) 4 mg IVP Q6 PRN PRN Reason: Nausea/Vomiting Last Admin: 02/13/17 16:26 Dose: 4 mg Pantoprazole Sodium (Protonix Inj) 40 mg IVP DAILY [facility] Last Admin: 02/21/17 09:18 Dose: 40 mg - Labs Labs: 02/21/17 05:40 02/21/17 14:00 PT 17.7 Seconds (9.9-11.8) H 02/16/17 06:08 INR 1.64 (0.93-1.08) H 02/16/17 06:08 APTT 33.6 Seconds (23.7-30.8) H 02/16/17 06:08 Attending/Attestation - Attestation I have personally seen and examined this patient.: Yes I have fully participated in the care of the patient.: Yes I have reviewed all pertinent clinical information, including history, physical exam and plan: Yes Notes (Text): I have seen and examined the patient at bedside. Agree with the above note with the following additions/ exceptions: Briefly this is 51 year old female with history of Crohn's disease, colostomy, asthma, bipolar disorder, polysubstance abuse, recent diagnoses of adenocarcinoma of the colon , psoriasis, anxiety, depression who presented with generalized weakness and leg pain. Colonoscopy revealed large bulky friable mass with severe stenosis however no biopsy was performed. Her stay was complicated by septic shock and pneumoperitoneum due to abdominal perforation ( family preferred non operative management) and was found to have metabolic acidosis, elevated troponin, transaminitis due to shock liver, DIC, anemia, thrombocytopenia, acute kidney injury, E Fecalis bacteremia, E coli/ proteus UTI and ventilator dependent respiratory failure. Patient is DNR. Today , patient had a fever and has leukocytosis. Continue fluconazole, vanco and flagyl. Patient also has acrocyanosis which can be due to hypotension vs medication induced vs septic endocarditis. She is on FIO2 of 70%. 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 Echo revealed EF of 40% and moderately reduced RV systolic dysfunction and global hypokinesis of LV. Continue lasix. Patient is sedated. Palliative care consult appreciated. She has anemia and thrombocytopenia. HIT antibody negative. Most likely thrombocytopenia is due to consumption coagulopathy due to sepsis. Overall prognosis is guarded. Dr Mari Kincaid
[2017-02-21] MEDS ORDERED: Sodium Chloride 0.9% 250 ML IV STA (14:26)
[2017-02-21 15:39] LABS: BLOOD UREA NITROGEN 47 mg/dL (7-21); CALCIUM 8.6 mg/dL (8.4-10.5); CARBON DIOXIDE 35 mmol/L (21-33); CHLORIDE 104 mmol/L (98-107); GFR AFRICAN-AMERICAN > 60; GLUCOSE,RANDOM 128 mg/dL (70-110); SODIUM 145 mmol/L (132-148)
--- NOTE | 2017-02-21 15:42 | US ---
PROCEDURE: Right upper extremity venous US CLINICAL HISTORY: Arm pain and swelling Evaluate for deep venous thrombosis. PHYSICIAN(S): Derrell Metcalf M.D FINDINGS: The visualized rightinternal jugular vein is sonographically normal and compressible. No evidence of obstruction or thrombus is seen. The visualized segments of the right subclavian vein are patent with normal waveforms. No sonographic evidence of obstruction or thrombosis is seen. The visualized deep venous system of the proximal right upper extremity is sonographically normal and compressible. A central venous catheter is noted in the right upper extremity. No significant catheter -associated thrombus is appreciated. IMPRESSION: 1. No sonographic evidence for deep venous thrombosis in the visualized segments of the right upper extremity.
--- NOTE | 2017-02-21 22:42 | CP.PCM.PN ---
Subjective - Date & Time of Evaluation Date of Evaluation: 02/21/17 Time of Evaluation: 21:00 - Subjective Subjective: Infectious Disease Follow Up: February 21, 2017 50 yo female with history of Crohn's disease admitted for groin and abdominal pain. She was recently discharged from the hospital with Doxycycline and Augmentin. During the hospitalization the patient short of breath, tachycardic , and tachypnic. Patient became hypotensive and required admission to the MICU. The patient required pressors and intubation and ventilation shortly after admission. The patient was on multiple pressors and received 4 units of PRBCs and FFPs. Very poor prognosis. The patient remains intubated. Her acidosis improved. Respiratory functions did show improvement. Hemodynamically staple. She remains intubated and ventilated. Off pressors. Opens eyes and follow simple commands. Objective - Vital Signs/Intake and Output Vital Signs (last 24 hours): Temp Pulse Resp BP Pulse Ox 98.1 F 95 H 36 H 112/73 99 02/21/17 16:00 02/21/17 21:01 02/21/17 16:00 02/21/17 21:45 02/21/17 18:00 Intake and Output: 02/21/17 02/22/17 18:59 06:59 Intake Total 2536 Output Total 3000 Balance -464 - Medications Medications: Current Medications Acetylcysteine (Acetylcysteine 20%) 4 ml IH [id number] [facility] Last Admin: 02/17/17 19:48 Dose: Not Given Albuterol Sulfate (Albuterol 0.083% Inhal Amarilys (2.5 Mg/3 Ml) Ud) 2.5 mg IH [id number] PRN PRN Reason: Wheezing Arformoterol Tartrate (Brovana) 15 mcg IH [id number] [facility] Last Admin: 02/21/17 20:31 Dose: 15 mcg Budesonide (Pulmicort Respules) 0.5 mg IH [id number] [facility] Last Admin: 02/21/17 20:32 Dose: 0.5 mg Clonazepam (Klonopin) 1 mg PO BID [facility] PRN Reason: Protocol Last Admin: 02/14/17 10:00 Dose: Not Given Enalaprilat (Vasotec Iv) 1.25 mg IVP Q6H [facility] Last Admin: 02/21/17 21:45 Dose: 1.25 mg Furosemide (Lasix) 40 mg IVP Q12H [facility] Last Admin: 02/21/17 14:45 Dose: Not Given Hydrocortisone Sodium Succinate (Solu-Cortef) 50 mg IVP DAILY [facility] Last Admin: 02/21/17 09:17 Dose: 50 mg Hydromorphone HCl (Dilaudid) 2 mg IVP Q4H [facility] Last Admin: 02/21/17 21:00 Dose: 2 mg Dobutamine HCl/Dextrose (Dobutamine/Dextrose 5% 500mg/250ml) 500 mg in 250 mls @ 6.328 mls/hr IV .Q24H PRN; Protocol; 2.5 MCG/KG/MIN PRN Reason: TITRATE PER PROTOCOL Last Admin: 02/18/17 22:37 Dose: 2.5 mcg/kg/min, 6.328 mls/hr Vancomycin HCl 1.5 gm/ Sodium (Chloride) 500 mls @ 167 mls/hr IVPB Q12 [facility] PRN Reason: Protocol Last Admin: 02/21/17 21:00 Dose: 167 mls/hr Fentanyl Citrate (Fentanyl Citrate/Sodium Chloride 1 Mg/100 Ml) 1,000 mcg in 100 mls @ 2 mls/hr IV .Q24H PRN; Protocol; 20 MCG/HR PRN Reason: TITRATE PER MD ORDER Last Admin: 02/21/17 11:30 Dose: 100 mcg/hr, 10 mls/hr Fluconazole (Diflucan Iv 200 Mg/100 Ml Ns) 100 mls @ 100 mls/hr IVPB DAILY [facility] PRN Reason: Protocol Last Admin: 02/21/17 09:18 Dose: 100 mls/hr Amino Acids/Electrolytes/Dextrose (Clinimix 5/20 % "E" (2000 Ml)) 2,000 mls @ 83.333 mls/hr IV .Q24H [facility] Last Admin: 02/21/17 18:38 Dose: 83.333 mls/hr Metronidazole (Flagyl) 500 mg in 100 mls @ 100 mls/hr IVPB Q6 [facility] PRN Reason: Protocol Last Admin: 02/21/17 17:01 Dose: 100 mls/hr Propofol (Diprivan) 1,000 mg in 100 mls @ 2.43 mls/hr IV .Q24H PRN; Protocol; 5 MCG/KG/MIN PRN Reason: TITRATE PER MD ORDER Last Admin: 02/21/17 16:45 Dose: 30 mcg/kg/min, 14.58 mls/hr Metoprolol Tartrate (Lopressor) 5 mg IVP Q6H [facility] Last Admin: 02/21/17 21:01 Dose: 5 mg Ondansetron HCl (Zofran Inj) 4 mg IVP Q6 PRN PRN Reason: Nausea/Vomiting Last Admin: 02/13/17 16:26 Dose: 4 mg Pantoprazole Sodium (Protonix Inj) 40 mg IVP DAILY [facility] Last Admin: 02/21/17 09:18 Dose: 40 mg - Labs Labs: 02/21/17 05:40 02/21/17 14:00 PT 17.7 Seconds (9.9-11.8) H 02/16/17 06:08 INR 1.64 (0.93-1.08) H 02/16/17 06:08 APTT 33.6 Seconds (23.7-30.8) H 02/16/17 06:08 - Constitutional Appears: Non-toxic, No Acute Distress, Chronically Ill - Head Exam Head Exam: ATRAUMATIC, NORMOCEPHALIC - Eye Exam Eye Exam: EOMI, PERRL Pupil Exam: NORMAL ACCOMODATION, PERRL - ENT Exam ENT Exam: Mucous Membranes Moist, Normal External Ear Exam, TM's Normal Bilaterally - Neck Exam Neck Exam: Full ROM, Normal Inspection - Respiratory Exam Respiratory Exam: Clear to Ausculation Bilateral, NORMAL BREATHING PATTERN. absent: Rales, Rhonchi, Wheezes - Cardiovascular Exam Cardiovascular Exam: REGULAR RHYTHM, RRR, +S1, +S2 - GI/Abdominal Exam GI & Abdominal Exam: Soft, Normal Bowel Sounds. absent: Distended, Tenderness - Extremities Exam Extremities Exam: Full ROM, Normal Inspection - Neurological Exam Neurological Exam: Alert, Awake, CN II-XII Intact Additional comments: AAO x 1, follow simple commands. - Psychiatric Exam Additional comments: opens eyes. follows simple commands. - Skin Skin Exam: Intact, Normal Color Assessment and Plan - Assessment and Plan (Free Text) Assessment: 51 yo female currently intubated and ventilated and poorly responsive with hypotension requiring pressor support with 4 medications. Was on Meropenem and Vancomycin. Extremely poor prognosis. Supportive care. There were concerns for abdominal perforation and findings of extensive abdominal ascites and pneumoperitoneum. Severe anemia requiring PRBC transfusions. Meropenem is a reasonable choice for generalized antibiotic coverage. Continue on meropenem, flagyl, vancomycin, and diflucan for now. Supportive care. Meropenem completed 7 days of treatment. Still on Flagyl, Vancomycin, and Diflucan. Poor prognosis. Lactic acidosis improved but respiratory function has remained about the same or slightly better. Patient hemodynamically stable. Arousable and follows simple commands. Thank you for allowing me to participate in the care of the patient, we will follow with you.
--- NOTE | 2017-02-21 23:13 | CP.PCM.PN ---
Subjective - Date & Time of Evaluation Date of Evaluation: 02/21/17 Time of Evaluation: 17:00 - Subjective Subjective: Patient continues to be sedated and intubated unable to assess ROS Objective - Vital Signs/Intake and Output Vital Signs (last 24 hours): Temp Pulse Resp BP Pulse Ox 98.1 F 95 H 36 H 112/73 99 02/21/17 16:00 02/21/17 21:01 02/21/17 16:00 02/21/17 21:45 02/21/17 18:00 Intake and Output: 02/21/17 02/22/17 18:59 06:59 Intake Total 2536 Output Total 3000 Balance -464 - Medications Medications: Current Medications Acetylcysteine (Acetylcysteine 20%) 4 ml IH [id number] [facility] Last Admin: 02/17/17 19:48 Dose: Not Given Albuterol Sulfate (Albuterol 0.083% Inhal Amarilys (2.5 Mg/3 Ml) Ud) 2.5 mg IH [id number] PRN PRN Reason: Wheezing Arformoterol Tartrate (Brovana) 15 mcg IH [id number] [facility] Last Admin: 02/21/17 20:31 Dose: 15 mcg Budesonide (Pulmicort Respules) 0.5 mg IH [id number] [facility] Last Admin: 02/21/17 20:32 Dose: 0.5 mg Clonazepam (Klonopin) 1 mg PO BID [facility] PRN Reason: Protocol Last Admin: 02/14/17 10:00 Dose: Not Given Enalaprilat (Vasotec Iv) 1.25 mg IVP Q6H [facility] Last Admin: 02/21/17 21:45 Dose: 1.25 mg Furosemide (Lasix) 40 mg IVP Q12H [facility] Last Admin: 02/21/17 14:45 Dose: Not Given Hydrocortisone Sodium Succinate (Solu-Cortef) 50 mg IVP DAILY [facility] Last Admin: 02/21/17 09:17 Dose: 50 mg Hydromorphone HCl (Dilaudid) 2 mg IVP Q4H [facility] Last Admin: 02/21/17 21:00 Dose: 2 mg Dobutamine HCl/Dextrose (Dobutamine/Dextrose 5% 500mg/250ml) 500 mg in 250 mls @ 6.328 mls/hr IV .Q24H PRN; Protocol; 2.5 MCG/KG/MIN PRN Reason: TITRATE PER PROTOCOL Last Admin: 02/18/17 22:37 Dose: 2.5 mcg/kg/min, 6.328 mls/hr Vancomycin HCl 1.5 gm/ Sodium (Chloride) 500 mls @ 167 mls/hr IVPB Q12 [facility] PRN Reason: Protocol Last Admin: 02/21/17 21:00 Dose: 167 mls/hr Fentanyl Citrate (Fentanyl Citrate/Sodium Chloride 1 Mg/100 Ml) 1,000 mcg in 100 mls @ 2 mls/hr IV .Q24H PRN; Protocol; 20 MCG/HR PRN Reason: TITRATE PER MD ORDER Last Admin: 02/21/17 11:30 Dose: 100 mcg/hr, 10 mls/hr Fluconazole (Diflucan Iv 200 Mg/100 Ml Ns) 100 mls @ 100 mls/hr IVPB DAILY [facility] PRN Reason: Protocol Last Admin: 02/21/17 09:18 Dose: 100 mls/hr Amino Acids/Electrolytes/Dextrose (Clinimix 5/20 % "E" (2000 Ml)) 2,000 mls @ 83.333 mls/hr IV .Q24H [facility] Last Admin: 02/21/17 18:38 Dose: 83.333 mls/hr Metronidazole (Flagyl) 500 mg in 100 mls @ 100 mls/hr IVPB Q6 [facility] PRN Reason: Protocol Last Admin: 02/21/17 17:01 Dose: 100 mls/hr Propofol (Diprivan) 1,000 mg in 100 mls @ 2.43 mls/hr IV .Q24H PRN; Protocol; 5 MCG/KG/MIN PRN Reason: TITRATE PER MD ORDER Last Admin: 02/21/17 16:45 Dose: 30 mcg/kg/min, 14.58 mls/hr Metoprolol Tartrate (Lopressor) 5 mg IVP Q6H [facility] Last Admin: 02/21/17 21:01 Dose: 5 mg Ondansetron HCl (Zofran Inj) 4 mg IVP Q6 PRN PRN Reason: Nausea/Vomiting Last Admin: 02/13/17 16:26 Dose: 4 mg Pantoprazole Sodium (Protonix Inj) 40 mg IVP DAILY [facility] Last Admin: 02/21/17 09:18 Dose: 40 mg - Labs Labs: 06/10/17 05:40 02/21/17 14:00 PT 17.7 Seconds (9.9-11.8) H 02/16/17 06:08 INR 1.64 (0.93-1.08) H 02/16/17 06:08 APTT 33.6 Seconds (23.7-30.8) H 02/16/17 06:08 - Constitutional Appears: No Acute Distress - Head Exam Head Exam: ATRAUMATIC - Respiratory Exam Respiratory Exam: Clear to Ausculation Bilateral, NORMAL BREATHING PATTERN - Cardiovascular Exam Cardiovascular Exam: REGULAR RHYTHM, +S1, +S2. absent: Murmur - GI/Abdominal Exam GI & Abdominal Exam: Soft, Normal Bowel Sounds. absent: Tenderness - Extremities Exam Extremities Exam: Full ROM, Normal Capillary Refill, Normal Inspection. absent : Joint Swelling, Pedal Edema Assessment and Plan (1) Adenocarcinoma of colon Status: Chronic - Assessment and Plan (Free Text) Assessment: Ms. Winchester dorita 50 y/o female with pmx signficant for Crohn's disease, recent dx of adeno ca admitted with sepsis physiology 2/2 to abdominal perforation complicated by ESBL urosepsis, concern for acalculous cholecystitis (though HIDA subsequently negative) and thrombocytopenia. DIC labs demonstrated normal fibrinogen which argues again DIC. Thrombocytopenia appears stable and likely reactive in setting of sepsis physiology. Nonetheless would obtain LDH, haptoglobin, reticulocyte count, and peripheral smear to rule out hemolysis. Recommended transfusions if plts <20 (if febrile) or plt<10 (afebrile) nad for hgb <7. Further discussions regarding treatmentn of newly diagnosed colon ca would be stipulated on recovery from current hospitalization
[2017-02-22] MEDS: Albuterol 0.083% Inhal Sol (2.5 mg/3 mL) UD IH PRN ×2 (00:11→07:04)
[2017-02-22 00:12] LABS: BLOOD UREA NITROGEN 44 mg/dL (7-21); CALCIUM 8.5 mg/dL (8.4-10.5); CARBON DIOXIDE 34 mmol/L (21-33); CHLORIDE 105 mmol/L (95-110); GFR AFRICAN-AMERICAN > 60; GLUCOSE,RANDOM 142 mg/dL (70-110); MAGNESIUM 1.2 mg/dL (1.7-2.2); PHOSPHOROUS 2.9 mg/dL (2.5-4.5); SODIUM 146 mmol/L (132-148)
[2017-02-22 00:15] LABS: POTASSIUM 2.7 mmol/L (3.6-5.0)
[2017-02-22] MEDS: Fentanyl 1000mcg/100ml NS 1,000 MCG/100 ML BAG IV PRN ×3 (00:28→21:00)
[2017-02-22] MEDS: Propofol 10 mg/ml 1,000 MG/100 ML VIAL IV PRN ×3 (00:30→17:37)
[2017-02-22] MEDS: metroNIDAZOLE IV 500 mg/100 ml 500 MG/100 ML BAG IVPB SCH ×4 (00:32→17:42)
[2017-02-22] MEDS: HYDROmorphone 2 mg/ml ISec IVP SCH ×6 (00:40→21:25)
[2017-02-22] MEDS: Metoprolol 1 mg/ml Inj IVP SCH ×4 (02:52→21:29)
[2017-02-22] MEDS: EnalaprilAT 1.25 mg/ml Inj IVP SCH ×4 (04:05→23:00)
[2017-02-22 06:54] LABS: HEMATOCRIT 37.1 % (36.0-48.0); MEAN CELL VOLUME 90.3 fL (80.0-105.0); MEAN CORPUSCULAR HEMOGLOBIN 29.4 pg (25.0-35.0); MEAN CORPUSCULAR HGB CONC 32.6 g/dl (31.0-37.0); WHITE BLOOD COUNT 23.9 10^3/ul (4.5-11.0)
[2017-02-22] MEDS: Arformoterol 15 mcg/2 ml Inh Sol IH SCH ×2 (07:04→19:50)
[2017-02-22 07:05] LABS: ADD MANUAL DIFF? YES
[2017-02-22 07:07] LABS: INR 1.45 (0.93-1.08); PARTIAL THROMBOPLASTIN TIME 26.8 Seconds (23.7-30.8)
[2017-02-22 07:12] LABS: PLATELET COUNT 13 10^3/uL (120.0-450.0)
[2017-02-22 07:13] LABS: ALB/GLOB RATIO 0.8 (1.1-1.8); ALKALINE PHOSPHATASE 134 U/L (38-133); ALT/SGPT 75 U/L (7-56); AST/SGOT 65 U/L (15-39); BILIRUBIN,TOTAL 1.6 mg/dL (0.2-1.3); BLOOD UREA NITROGEN 43 mg/dL (7-21); CALCIUM 8.6 mg/dL (8.4-10.5); CARBON DIOXIDE 35 mmol/L (21-33); CHLORIDE 106 mmol/L (95-110); GFR AFRICAN-AMERICAN > 60; GLUCOSE,RANDOM 114 mg/dL (70-110); MAGNESIUM 1.3 mg/dL (1.7-2.2); PHOSPHOROUS 3.2 mg/dL (2.5-4.5); POTASSIUM 3.3 mmol/L (3.6-5.0); SODIUM 148 mmol/L (132-148); TOTAL PROTEIN 5.9 g/dL (5.8-8.3)
--- NOTE | 2017-02-22 07:21 | CP.PCM.PN ---
<Tova Villeda - Last Filed: 02/22/17 14:02> Subjective - Date & Time of Evaluation Date of Evaluation: 02/22/17 Time of Evaluation: 07:00 - Subjective Subjective: Patient evaluated at bedside. She remains intubated and sedated in the ICU. She is on Fentanyl and Propofol drip and is arousable. She is thrombocytopenic and being transfused 2 units ffp. ROS unavailable Objective - Vital Signs/Intake and Output Vital Signs (last 24 hours): Temp Pulse Resp BP Pulse Ox 99.4 F 111 H 21 113/78 95 02/22/17 04:33 02/22/17 06:00 02/22/17 07:03 02/22/17 06:00 02/22/17 07:03 Intake and Output: 02/22/17 02/22/17 06:59 18:59 Intake Total 2077 Output Total 30 Balance 2046 - Medications Medications: Current Medications Acetylcysteine (Acetylcysteine 20%) 4 ml IH [id number] [facility]PLAC[facility] Last Admin: 02/17/17 19:48 Dose: Not Given Albuterol Sulfate (Albuterol 0.083% Inhal Amarilys (2.5 Mg/3 Ml) Ud) 2.5 mg IH [id number] PRN PRN Reason: Wheezing Last Admin: 02/22/17 07:04 Dose: 2.5 mg Arformoterol Tartrate (Brovana) 15 mcg IH [id number] REPLACED [facility] Last Admin: 02/22/17 07:04 Dose: 15 mcg Budesonide (Pulmicort Respules) 0.5 mg IH [id number] [facility]PLACED [facility] Last Admin: 02/21/17 20:32 Dose: 0.5 mg Clonazepam (Klonopin) 1 mg PO BID [facility] PRN Reason: Protocol Last Admin: 02/14/17 10:00 Dose: Not Given Enalaprilat (Vasotec Iv) 1.25 mg IVP Q6H [facility] Last Admin: 02/22/17 04:05 Dose: Not Given Furosemide (Lasix) 40 mg IVP Q12H [facility] Last Admin: 02/22/17 02:53 Dose: Not Given Hydrocortisone Sodium Succinate (Solu-Cortef) 50 mg IVP DAILY [facility] Last Admin: 02/21/17 09:17 Dose: 50 mg Hydromorphone HCl (Dilaudid) 2 mg IVP Q4H [facility] Last Admin: 02/22/17 04:00 Dose: Not Given Dobutamine HCl/Dextrose (Dobutamine/Dextrose 5% 500mg/250ml) 500 mg in 250 mls @ 6.328 mls/hr IV .Q24H PRN; Protocol; 2.5 MCG/KG/MIN PRN Reason: TITRATE PER PROTOCOL Last Admin: 02/18/17 22:37 Dose: 2.5 mcg/kg/min, 6.328 mls/hr Vancomycin HCl 1.5 gm/ Sodium (Chloride) 500 mls @ 167 mls/hr IVPB Q12 [facility] PRN Reason: Protocol Last Admin: 02/21/17 21:00 Dose: 167 mls/hr Fentanyl Citrate (Fentanyl Citrate/Sodium Chloride 1 Mg/100 Ml) 1,000 mcg in 100 mls @ 2 mls/hr IV .Q24H PRN; Protocol; 20 MCG/HR PRN Reason: TITRATE PER MD ORDER Last Admin: 02/22/17 00:28 Dose: 100 mcg/hr, 10 mls/hr Fluconazole (Diflucan Iv 200 Mg/100 Ml Ns) 100 mls @ 100 mls/hr IVPB DAILY [facility] PRN Reason: Protocol Last Admin: 02/21/17 09:18 Dose: 100 mls/hr Amino Acids/Electrolytes/Dextrose (Clinimix 5/20 % "E" (2000 Ml)) 2,000 mls @ 83.333 mls/hr IV .Q24H [facility] Last Admin: 02/21/17 18:38 Dose: 83.333 mls/hr Metronidazole (Flagyl) 500 mg in 100 mls @ 100 mls/hr IVPB Q6 [facility] PRN Reason: Protocol Last Admin: 02/22/17 06:05 Dose: 100 mls/hr Propofol (Diprivan) 1,000 mg in 100 mls @ 2.43 mls/hr IV .Q24H PRN; Protocol; 5 MCG/KG/MIN PRN Reason: TITRATE PER MD ORDER Last Admin: 02/22/17 00:30 Dose: 30 mcg/kg/min, 14.58 mls/hr Metoprolol Tartrate (Lopressor) 5 mg IVP Q6H [facility] Last Admin: 02/22/17 02:52 Dose: 5 mg Ondansetron HCl (Zofran Inj) 4 mg IVP Q6 PRN PRN Reason: Nausea/Vomiting Last Admin: 02/13/17 16:26 Dose: 4 mg Pantoprazole Sodium (Protonix Inj) 40 mg IVP DAILY [facility] Last Admin: 02/21/17 09:18 Dose: 40 mg - Labs Labs: 02/22/17 06:48 02/22/17 06:48 PT 15.7 Seconds (9.9-11.8) H 02/22/17 06:48 INR 1.45 (0.93-1.08) H 02/22/17 06:48 APTT 26.8 Seconds (23.7-30.8) 02/22/17 06:48 - Head Exam Head Exam: ATRAUMATIC, NORMAL INSPECTION, NORMOCEPHALIC - Eye Exam Eye Exam: EOMI, Normal appearance, PERRL Pupil Exam: PERRL - ENT Exam ENT Exam: Mucous Membranes Dry - Respiratory Exam Respiratory Exam: Clear to Ausculation Bilateral, NORMAL BREATHING PATTERN - Cardiovascular Exam Cardiovascular Exam: REGULAR RHYTHM, +S1, +S2. absent: Murmur - GI/Abdominal Exam GI & Abdominal Exam: Soft, Normal Bowel Sounds. absent: Tenderness Additional comments: left colostomy with stool - Extremities Exam Extremities Exam: Full ROM, Normal Capillary Refill, Normal Inspection. absent : Joint Swelling, Pedal Edema Additional comments: OG tube and ETT tube - Skin Skin Exam: Dry, Intact, Normal Color, Warm Assessment and Plan - Assessment and Plan (Free Text) Assessment: 51 year old female with past medical history of Crohns disease, asthma, bipolar disorder, polysubstance abuse and recent diagnoses of adenocarcinoma of the colon. Patient is in the ICU recovering from Septic shock 2/2 to abdominal perforation complicated by ESBL urosepsis, concern for acalculous cholecystitis and thrombocytopenia. Renal function is improving as well as cardiac function, shock liver and hemodynamic status. There is a concern for acalculous cholecystitis however HIDA was negative no surgical intervention planned. Pt is being transfuse 2 units of FFP Septic shock 2/2 abdominal perforation complicated by ESBL urosepsis - manage per CCU team - continue Fluconazole empirically. continue flagyl IV, vancomycin. - ID following - Palliative care is following and discussing end of life care with patient's family. Eventual trach/peg to be discussed . Blue/dusky discoloration to right fingers concerning for thrombus - doppler was done. no evidence of thrombus at bedside eval. awaiting official read acute kidney injury 2/2 septic shock, multi-organ dysfunction syndrome - renal function is improving - avoiding nephrotoxic drugs when possible - maintaining MAP >65 transaminitis 2/2 shock liver in setting of septic shock - liver enzymes trending down - continue to maintain MAP >65 - monitor liver enzymes daily thrombocytopenia 2/2 sepsis, bone marrow suppression - transfuse per ICU team - discussed with hematology. awaiting further hematology lab results. - daily CBC - SCD's - SHARON panel negative bacteremia - E. faecalis in blood culture - continue abx per ID, ICU team UTI - Proteus mirabilis, ESBL in urine - continue abx as above Adenocarcinoma of colon: - heme/onc following - Ct of chest shows interstitial infiltrates with extensive bibasilar consolidations. Extensive B/L and medistinal LAD. seen reviewed and discussed with attending <Mari Kincaid - Last Filed: 02/23/17 07:46> Objective - Vital Signs/Intake and Output Vital Signs (last 24 hours): Temp Pulse Resp BP Pulse Ox 97.8 F 90 18 124/77 100 02/22/17 20:00 02/23/17 03:30 02/22/17 16:00 02/23/17 04:20 02/23/17 00:30 Intake and Output: 02/23/17 02/23/17 06:59 18:59 Intake Total 300 Balance 300 - Medications Medications: Current Medications Acetylcysteine (Acetylcysteine 20%) 4 ml IH [id number] REPLACED BY [facility] Last Admin: 02/17/17 19:48 Dose: Not Given Albuterol Sulfate (Albuterol 0.083% Inhal Amarilys (2.5 Mg/3 Ml) Ud) 2.5 mg IH [id number] PRN PRN Reason: Wheezing Last Admin: 02/22/17 07:04 Dose: 2.5 mg Arformoterol Tartrate (Brovana) 15 mcg IH [id number] [facility] Last Admin: 02/22/17 19:50 Dose: 15 mcg Budesonide (Pulmicort Respules) 0.5 mg IH [id number] REPLACED [facility] Last Admin: 02/22/17 19:50 Dose: 0.5 mg Clonazepam (Klonopin) 1 mg PO BID [facility]PL[facility] PRN Reason: Protocol Last Admin: 02/14/17 10:00 Dose: Not Given Enalaprilat (Vasotec Iv) 1.25 mg IVP Q6H [facility]PL[facility] Last Admin: 02/23/17 04:20 Dose: 1.25 mg Furosemide (Lasix) 40 mg IVP Q12H [facility]PL[facility] Last Admin: 02/23/17 03:30 Dose: 40 mg Hydrocortisone Sodium Succinate (Solu-Cortef) 50 mg IVP DAILY [facility]PL[facility] Last Admin: 02/22/17 08:59 Dose: 50 mg Hydromorphone HCl (Dilaudid) 2 mg IVP Q4H [facility]PL[facility] Last Admin: 02/23/17 04:15 Dose: 2 mg Dobutamine HCl/Dextrose (Dobutamine/Dextrose 5% 500mg/250ml) 500 mg in 250 mls @ 6.328 mls/hr IV .Q24H PRN; Protocol; 2.5 MCG/KG/MIN PRN Reason: TITRATE PER PROTOCOL Last Admin: 02/18/17 22:37 Dose: 2.5 mcg/kg/min, 6.328 mls/hr Vancomycin HCl 1.5 gm/ Sodium (Chloride) 500 mls @ 167 mls/hr IVPB Q12 REPLACED BY [facility] PRN Reason: Protocol Last Admin: 02/22/17 21:30 Dose: 167 mls/hr Fentanyl Citrate (Fentanyl Citrate/Sodium Chloride 1 Mg/100 Ml) 1,000 mcg in 100 mls @ 2 mls/hr IV .Q24H PRN; Protocol; 20 MCG/HR PRN Reason: TITRATE PER MD ORDER Last Admin: 02/22/17 21:00 Dose: 100 mcg/hr, 10 mls/hr Fluconazole (Diflucan Iv 200 Mg/100 Ml Ns) 100 mls @ 100 mls/hr IVPB DAILY REPLACED [facility] PRN Reason: Protocol Last Admin: 02/22/17 09:08 Dose: 100 mls/hr Metronidazole (Flagyl) 500 mg in 100 mls @ 100 mls/hr IVPB Q6 REPLACED BY [facility] PRN Reason: Protocol Last Admin: 02/23/17 05:24 Dose: 100 mls/hr Propofol (Diprivan) 1,000 mg in 100 mls @ 2.43 mls/hr IV .Q24H PRN; Protocol; 5 MCG/KG/MIN PRN Reason: TITRATE PER MD ORDER Last Admin: 02/23/17 06:56 Dose: 30 mcg/kg/min, 14.58 mls/hr Potassium Chloride 30 meq/Amino Acids/Electrolytes/Dextrose 1,015 mls @ 42 mls/ hr IV .Q24H REPLACED BY [facility] Last Admin: 02/22/17 17:40 Dose: 42 mls/hr Metoprolol Tartrate (Lopressor) 5 mg IVP Q6H REPLACED BY [facility] Last Admin: 02/23/17 03:30 Dose: 5 mg Ondansetron HCl (Zofran Inj) 4 mg IVP Q6 PRN PRN Reason: Nausea/Vomiting Last Admin: 02/13/17 16:26 Dose: 4 mg Pantoprazole Sodium (Protonix Inj) 40 mg IVP DAILY REPLACED BY [facility] Last Admin: 02/22/17 09:06 Dose: 40 mg - Labs Labs: 02/23/17 06:00 02/23/17 06:00 PT 13.9 Seconds (9.9-11.8) H 02/23/17 06:00 INR 1.29 (0.93-1.08) H 02/23/17 06:00 APTT 25.9 Seconds (23.7-30.8) 02/23/17 06:00 Attending/Attestation - Attestation I have personally seen and examined this patient.: Yes I have fully participated in the care of the patient.: Yes I have reviewed all pertinent clinical information, including history, physical exam and plan: Yes Notes (Text): I have seen and examined the patient at bedside. Agree with the above note with the following additions/ exceptions: Briefly this is 51 year old female with history of Crohn's disease, colostomy, asthma, bipolar disorder, polysubstance abuse, recent diagnoses of adenocarcinoma of the colon , psoriasis, anxiety, depression who presented with generalized weakness and leg pain. Colonoscopy revealed large bulky friable mass with severe stenosis however no biopsy was performed. Her stay was complicated by septic shock and pneumoperitoneum due to abdominal perforation ( family preferred non operative management) and was found to have metabolic acidosis, elevated troponin, transaminitis due to shock liver, DIC, anemia, thrombocytopenia, acute kidney injury, E Fecalis bacteremia, E coli/ proteus UTI and ventilator dependent respiratory failure. Patient is DNR. Patient had a fever yesterday and also has leukocytosis. Repeat blood culture, urine culture and stool for cdiff is negative. Patient has completed meropenem. Continue fluconazole, vanco and flagyl. Patient also has acrocyanosis. She is off of pressors and remains on FIO2 of 70%. She was given 1 unit of platelet this morning. Manage vent as per director agricultural services. Echo revealed EF of 40% and moderately reduced RV systolic dysfunction and global hypokinesis of LV. Continue lasix. Patient is sedated. Patient has a poor prognosis. She has anemia and thrombocytopenia. HIT antibody negative. Most likely thrombocytopenia is due to consumption coagulopathy due to sepsis. Overall prognosis is poor. Dr Mari Kincaid
[2017-02-22 07:35] LABS: ARTERIAL BLOOD GAS HCO3 29.1 mmol/L (21-28); ARTERIAL BLOOD GAS PH 7.39 (7.35-7.45)
[2017-02-22 07:36] LABS: ARTERIAL BLOOD HGB O2 SAT 93.7 % (95.0-98.0)
[2017-02-22 07:37] LABS: CARBOXYHEMOGLOBIN 1.5 % (0.5-1.5); HHB 4.2 % (0-5); METHEMOGLOBIN 0.6 % (0.0-3.0)
[2017-02-22] MEDS ORDERED: Magnesium Sulfate 2 GM in Sodium Chloride 0.9% 100 ML IVPB ONE (07:58)
[2017-02-22 08:57] LABS: BAND 4 % (0-2); EOSINOPHIL 2 % (0.0-3.0); HYPOCHROMIA 2+; METAMYELOCYTE 3 %; NEUTROPHIL 73 % (50.0-70.0); PLATELET ESTIMATE LOW (NORMAL)
[2017-02-22 08:58] LABS: ANISOCYTOSIS 1+; OVALOCYTES SLIGHT; TARGET CELLS SLIGHT; TOXIC GRANULATION 1+
[2017-02-22] MEDS: Vancomycin 1.5 GM in Sodium Chloride 0.9% 500 ML IVPB SCH ×2 (09:01→21:30)
[2017-02-22] MEDS: Fluconazole IV 200mg/100 ml NS 100 ML IVPB SCH (09:08)
--- NOTE | 2017-02-22 09:59 | PN ---
DATE: 02/22/2017 RETAIL VISUAL MERCHANDISER NOTE SUBJECTIVE: The patient continues to be ventilator-dependent, requiring FIO2 of 70%. She continues to have swelling of the extremities and is being diuresed, and electrolytes are being corrected. LABORATORY DATA: The patient had some blood-tinged secretions when suctioned via the ET tube. It is noted that she has a significant decrease in her platelets and will be transfused today. PHYSICAL EXAMINATION: VITAL SIGNS: Her temperature is 99.4. Pulse is 111. Respirations are 21, and BP is 113/78. O2 sat uration is 95%. HEENT: Head is atraumatic, normocephalic. Eyes are reactive to light. Ears, nose, and throat seeme d to be within normal limits. NECK: Supple. No JVD, no thyroid enlargement, no lymph nodes. HEART: Has regular rate and rhythm. Normal S1, S2, but tachycardic. LUNGS: Reveal bilateral rhonchi. ABDOMEN: Soft. Decreased bowel sounds. GENITALIA AND RECTAL: Deferred. MUSCULOSKELETAL: No joint deformities. EXTREMITIES: Reveal significant upper and lower extremity edema. NEUROLOGIC: The patient is fairly unresponsive on the ventilator. Her chest x-ray, unofficial reading, shows bilateral infiltrates with significant consolidation in th e right upper lobe area. LABORATORY DATA: Reveal a white count of 23.9, hemoglobin of 12.1, hematocrit 37.1 with platelets of 13,000. Arterial blood gas reveals a pH of 7.39, pCO2 of 48, pO2 of 71. Her sodium is 148, potassi um 3.3, chloride 106, CO2 of 35 with a BUN of 43, creatinine of 0.7, and a glucose of 114. The patie nt's magnesium is 1.3. IMPRESSION: Note that the patient does have hypomagnesemia, as well as hypokalemia. She has respira tory failure requiring ventilator support, and is noted to have pulmonary edema with being fluid-over loaded. The patient has possible acute respiratory distress syndrome. She has a history of colon carcinoma with mets and is status post a bowel perforation. The patient h as severe thrombocytopenia and resolving septic shock. She is noted to have decreased blood pressure this morning and is being monitored very closely. As far as plan, we will continue to support with aggressive pulmonary toilet. The patient is on vent ilator support with FiO2 of 70%, and we will follow her chest x-ray and arterial blood gas closely. We are correcting the magnesium, as well as potassium, and she will continue with bronchodilators. S he is on fentanyl, and we are continuing to give Lasix for appropriate diuresis. The patient is on p ropofol for sedation, as well as Pulmicort and Solu-Medrol. She is on antibiotics of vancomycin and meropenem. We will continue to treat aggressively along with the other consultants and the primary c are doctor. Bhavesh Barros MD cc: [id number] TT: 02/22/2017 09:58:34 Confirmation # [id number] Dictation # [id number] jn
--- NOTE | 2017-02-22 10:43 | PN ---
DATE: 02/22/2017 SUBJECTIVE: The patient is currently seen in the ICU bed 4. She remains sedated on a ventilator. H er renal parameters have remained stable. She remains on hyperalimentation. She remains mildly hypo kalemic and hypomagnesemic. MEDICATIONS: Medication list reviewed. The patient is currently on acetylcysteine, albuterol, Brova na, ClindaMax, Diflucan, Dilaudid, Diprivan, fentanyl, Flagyl, Klonopin, Lopressor, Protonix, Pulmico rt, Solu-Cortef, IV vancomycin, p.r.n. IV Vasotec, and p.r.n. Zofran IV. OBJECTIVE: INTAKE AND OUTPUT: 4613/3030. VITAL SIGNS: Blood pressure 125/84, temperature 98.4, respiratory rate 18 with a pulse of 108. HEENT: Eyes are closed. The patient is intubated. She is unresponsive. NECK: No neck vein distention. CHEST: Scattered rhonchi. No rales or wheezing. CARDIOVASCULAR: S1, S2 appear normal. No murmurs, rubs, or gallops noted. ABDOMEN: Soft. Mild distention. Bowel sounds normal. Left-sided colostomy. EXTREMITIES: Show trace to 1+ pitting thigh edema. She has cyanosis of her toes bilaterally, right greater than left. LABORATORY DATA AND IMAGING: Labs from today, CBC: White blood cell count 23.9, hemoglobin 12.1 wit h a platelet count of 13,000. Blood gas today: pH 7.39, pCO2 of 71 with a pCO2 of 48. Chemistries today show sodium of 148, potassium 3.3, chloride 106 with a CO2 of 35. BUN is slightly improved to 43. Creatinine is slightly improved to 0.7. Glucose 114. Calcium and phosphorus are normal. Magne sium level is 1.3. Bilirubin 1.6. Liver enzymes are elevated. Microbiology: Sputum is positive fo r yeast. Urines are positive for E. coli and Proteus. Blood cultures are positive for enterococcal faecalis. ASSESSMENT: 1. Mild prerenal azotemia in the setting of sepsis, hypotension, urinary tract infection, septicemia . BUN and creatinine are slightly improved. 2. Hypokalemia and hypomagnesemia. The patient is receiving magnesium and potassium in the hyperali mentation. I will give her K and magnesium riders today. 3. History of Crohn's disease, history of adenocarcinoma of the colon, history of intraabdominal sep sis, status post laparotomy 11/2016, with hemicolectomy and left-sided colostomy. 4. Status post gastrointestinal bleed with anemia. Hemoglobin remains stable. Status post 8 units of packed red blood cells during the hospitalization. 5. Severe thrombocytopenia. Platelet transfusions, as per inspector subassemblies, ICU staff, and other consult ants. 6. History of mild right-sided hydronephrosis secondary to retroperitoneal bilateral inguinal lympha denopathy. 7. The patient is a DO NOT RESUSCITATE. PLAN: 1. The patient may continue on pressors. 2. Continue IV antibiotic therapy. 3. Potassium and magnesium supplements. 4. Transfuse platelets on a p.r.n. basis. 5. P.r.n. IV Lasix as necessary. Ultimate and long-term prognosis is extremely poor here. Arie Rodriguez MD cc: [id number] TT: 02/22/2017 10:41:57 Confirmation # [id number] Dictation # [id number] jn
--- NOTE | 2017-02-22 10:51 | CP.PCM.PN ---
Subjective - Date & Time of Evaluation Date of Evaluation: 02/22/17 Time of Evaluation: 07:00 - Subjective Subjective: GENERAL SURGERY PROGRESS NOTE FOR DR. BOUCHER Patient seen and examined at bedside. She remains intubated and sedated in the ICU. She opened her eyes to physical but not verbal stimuli. She is on Fentanyl and Propofol drip. Platelets dropped to 13 today, plan is to be transfused today. Objective - Vital Signs/Intake and Output Vital Signs (last 24 hours): Temp Pulse Resp BP Pulse Ox 98.4 F 108 H 18 125/84 94 L 02/22/17 09:15 02/22/17 09:15 02/22/17 09:15 02/22/17 09:15 02/22/17 08:00 Intake and Output: 02/22/17 02/22/17 06:59 18:59 Intake Total 2077 405 Output Total 30 Balance 2047 405 - Medications Medications: Current Medications Acetylcysteine (Acetylcysteine 20%) 4 ml IH [id number] [facility] Last Admin: 02/17/17 19:48 Dose: Not Given Albuterol Sulfate (Albuterol 0.083% Inhal Amarilys (2.5 Mg/3 Ml) Ud) 2.5 mg IH [id number] PRN PRN Reason: Wheezing Last Admin: 02/22/17 07:04 Dose: 2.5 mg Arformoterol Tartrate (Brovana) 15 mcg IH [id number] [facility] Last Admin: 02/22/17 07:04 Dose: 15 mcg Budesonide (Pulmicort Respules) 0.5 mg IH [id number] [facility] Last Admin: 02/21/17 20:32 Dose: 0.5 mg Clonazepam (Klonopin) 1 mg PO BID [facility] PRN Reason: Protocol Last Admin: 02/14/17 10:00 Dose: Not Given Enalaprilat (Vasotec Iv) 1.25 mg IVP Q6H [facility] Last Admin: 02/22/17 09:07 Dose: 1.25 mg Furosemide (Lasix) 40 mg IVP Q12H [facility] Last Admin: 02/22/17 02:53 Dose: Not Given Hydrocortisone Sodium Succinate (Solu-Cortef) 50 mg IVP DAILY [facility] Last Admin: 02/22/17 08:59 Dose: 50 mg Hydromorphone HCl (Dilaudid) 2 mg IVP Q4H [facility] Last Admin: 02/22/17 08:06 Dose: 2 mg Dobutamine HCl/Dextrose (Dobutamine/Dextrose 5% 500mg/250ml) 500 mg in 250 mls @ 6.328 mls/hr IV .Q24H PRN; Protocol; 2.5 MCG/KG/MIN PRN Reason: TITRATE PER PROTOCOL Last Admin: 02/18/17 22:37 Dose: 2.5 mcg/kg/min, 6.328 mls/hr Vancomycin HCl 1.5 gm/ Sodium (Chloride) 500 mls @ 167 mls/hr IVPB Q12 [facility] PRN Reason: Protocol Last Admin: 02/22/17 09:01 Dose: 167 mls/hr Fentanyl Citrate (Fentanyl Citrate/Sodium Chloride 1 Mg/100 Ml) 1,000 mcg in 100 mls @ 2 mls/hr IV .Q24H PRN; Protocol; 20 MCG/HR PRN Reason: TITRATE PER MD ORDER Last Admin: 02/22/17 00:28 Dose: 100 mcg/hr, 10 mls/hr Fluconazole (Diflucan Iv 200 Mg/100 Ml Ns) 100 mls @ 100 mls/hr IVPB DAILY [facility] PRN Reason: Protocol Last Admin: 02/22/17 09:08 Dose: 100 mls/hr Metronidazole (Flagyl) 500 mg in 100 mls @ 100 mls/hr IVPB Q6 [facility] PRN Reason: Protocol Last Admin: 02/22/17 06:05 Dose: 100 mls/hr Propofol (Diprivan) 1,000 mg in 100 mls @ 2.43 mls/hr IV .Q24H PRN; Protocol; 5 MCG/KG/MIN PRN Reason: TITRATE PER MD ORDER Last Admin: 02/22/17 08:14 Dose: 30 mcg/kg/min, 14.58 mls/hr Potassium Chloride 30 meq/Amino Acids/Electrolytes/Dextrose 1,015 mls @ 42 mls/ hr IV .Q24H [facility] Metoprolol Tartrate (Lopressor) 5 mg IVP Q6H [facility] Last Admin: 02/22/17 09:00 Dose: 5 mg Ondansetron HCl (Zofran Inj) 4 mg IVP Q6 PRN PRN Reason: Nausea/Vomiting Last Admin: 02/13/17 16:26 Dose: 4 mg Pantoprazole Sodium (Protonix Inj) 40 mg IVP DAILY [facility] Last Admin: 02/22/17 09:06 Dose: 40 mg - Labs Labs: 02/22/17 06:48 02/22/17 06:48 PT 15.7 Seconds (9.9-11.8) H 02/22/17 06:48 INR 1.45 (0.93-1.08) H 02/22/17 06:48 APTT 26.8 Seconds (23.7-30.8) 02/22/17 06:48 - Constitutional Appears: No Acute Distress - ENT Exam Additional comments: OG tube and ETT tube - Respiratory Exam Respiratory Exam: NORMAL BREATHING PATTERN Additional comments: Vent on PRVC with FIO2 70%, PEEP 10 - Cardiovascular Exam Cardiovascular Exam: Tachycardia - GI/Abdominal Exam GI & Abdominal Exam: Soft Additional comments: LLQ ostomy in place with stool in bag Assessment and Plan - Assessment and Plan (Free Text) Assessment: 51yo with Rectal cancer in septic shock with multi organ failure - Continue management as per ICU and primary teams - No surgical intervention planned at this time - Discussed plan with Dr. Kaia Trevino PGY-2
--- NOTE | 2017-02-22 12:44 | RAD ---
HISTORY: Intubated. COMPARISON: Multiple serial examinations preceding the most recent study: February 21, 2017. FINDINGS: LUNGS: Acute opacification of the right upper lobe suggest mucous plug/atelectasis postobstructive etiology. Underlying pulmonary edema stable. PLEURA: No significant pleural effusion identified, no pneumothorax apparent. CARDIOVASCULAR: No radiographic findings to suggest acute or significant cardiovascular disease. OSSEOUS STRUCTURES: No significant abnormalities. VISUALIZED UPPER ABDOMEN: Normal. OTHER FINDINGS: Stable, satisfactory position ventilatory, vascular and nasogastric apparatus. IMPRESSION: Acute opacification right upper lobe likely atelectasis. Underlying pulmonary edema persists.
--- NOTE | 2017-02-22 15:51 | CON ---
DATE: 02/22/2017 REASON FOR CONSULTATION: Tracheostomy. CONSULTING PHYSICIAN: Dr. Castillo Sierra. REFERRING PHYSICIAN: Dr. Mari Kincaid. HISTORY OF PRESENT ILLNESS: This is a 51-year-old female with multiple medical problems admitted to [facility] on 02/12 with an extensive history since admission. In short, the patient has a history of Crohn disease, adenocarcinoma of the colon, asthma, bipolar disorder, polysubstance abu se who presented to [facility] for lower extremity and abdominal pain. During her hospit al stay she subsequently became tachycardic and hypotensive and was found to be in septic shock and w as transferred to the ICU where she was intubated on 02/12/2017. During this time, the patient has a lso undergone several other procedures, one of which was a colonoscopy, which may have led to a bowel perforation and peritonitis. However, since the family had declined surgery, the bowel perforation was not confirmed; however, the patient remained septic in the ICU requiring pressors. The patient a lso has a colostomy bag. The patient's hospital stay has also been complicated by anemia and thrombo cytopenia requiring blood transfusion, currently with a hemoglobin of 12 up from 8.5 after red blood cell transfusions and currently with a platelet count of 13. The patient has also been found to have extended-spectrum beta lactamase urosepsis, acute kidney injury secondary to septic shock, transamin itis secondary to septic shock, as noted before a thrombocytopenia with bone marrow suppression, bact eremia with Escherichia coli faecalis in the blood culture, urinary tract infection with Proteus and ESBL in the urine and ventilatory dependent respiratory failure. Palliative care has been consulted for this patient to discuss goals of care. The last conversation with the mother, who is the decisio n maker, the patient was made a DNR. At the time palliative consult also discussed the possibility o f a tracheostomy and a PEG tube; however, the decision maker was not ready to make a decision at that time and states that she will return in the future. The ENT service was consulted for tracheostomy. Upon examination the patient is intubated and sedated in the ICU. Most of the medical history has been obtained from the chart, from the nursing staff and from the ICU residents. PAST MEDICAL HISTORY: Mucinous adenocarcinoma of the colon, Crohn disease, asthma, bipolar disease, polysubstance abuse. SOCIAL HISTORY: She is a smoker, substance abuse or opioids, cocaine and alcohol. MEDICATIONS: She is currently on albuterol, Brovana, budesonide, Vasotec, fentanyl drip, fluconazole , Lasix, Solu-Cortef, Dilaudid, Lopressor, Flagyl, Zofran, Protonix, potassium chloride, propofol dri p and vancomycin. ALLERGIES: SHE IS ALLERGIC TO MORPHINE. REVIEW OF SYSTEMS: Is unable to be obtained due to the patient's status. PHYSICAL EXAMINATION: VITAL SIGNS: Pulse rate of 105, O2 saturation 94% on PRVC ventilator, blood pressure 141/84 on no pr essors at this time, temperature is 98.4, respirations are 18. GENERAL: She is intubated, sedated, opens eyes, does not follow basic commands. EYES: Are open. Pupils equal, round and reactive to light. NOSE: She has a nasogastric tube in place with green contents suctioning out. MOUTH: She has a 7.[address]. Suctioning of the endotracheal tube shows dark blo wen contents. CHEST: She is tachycardic, regular rhythm and rate. Respirations on mechanical. LABORATORIES: White count 23.9, hemoglobin 12.1, platelet count 13. PT 15.7, INR 1.45. Blood gas: ABG: pH is 7.39, pCO2 of 48, pO2 of 71, bicarbonate 29. Chemistry: Sodium 148, potassium 3.3, car bon dioxide 35, BUN 43, glucose 131, magnesium 1.3, bilirubin 1.6, AST 65, ALT 75, alkaline phosphata se 134, albumin 24. ASSESSMENT AND PLAN: This is a 51-year-old female with multiple medical problems who is currently ad mitted to the ICU in septic shock with bacteremia, who is also with vent dependent respiratory failur e. PLAN: As the patient is DNR at the moment and has multiple medical comorbidities, the plan will be t o await discussions from the family members and the ICU team regarding goals of care. If the patient 's family decides to go forward with aggressive therapy, please reconsult us as needed and regarding the tracheostomy. If that would be the case, she will need aggressive medical optimization including blood and platelet transfusions to undergo a tracheostomy. The remainder of the care is as per prim anna team. Thank you for allowing us to participate in this patient's care. Castillo Sierra DO cc: [id number] TT: 02/22/2017 15:50:25 Confirmation # [id number] Dictation # [id number]
--- NOTE | 2017-02-22 18:55 | CP.PCM.PN ---
Subjective - Date & Time of Evaluation Date of Evaluation: 02/22/17 Time of Evaluation: 16:30 - Subjective Subjective: Infectious Disease Follow Up: February 22, 2017 50 yo female with history of Crohn's disease admitted for groin and abdominal pain. She was recently discharged from the hospital with Doxycycline and Augmentin. During the hospitalization the patient short of breath, tachycardic , and tachypnic. Patient became hypotensive and required admission to the MICU. The patient required pressors and intubation and ventilation shortly after admission. The patient was on multiple pressors and received 4 units of PRBCs and FFPs. Very poor prognosis. The patient remains intubated. Her acidosis improved. Respiratory functions did show improvement. Hemodynamically staple. She remains intubated and ventilated. Off pressors. Opens eyes and follow simple commands. Receiving 2 U FFPs today. Objective - Vital Signs/Intake and Output Vital Signs (last 24 hours): Temp Pulse Resp BP Pulse Ox 98.5 F 93 H 18 115/82 98 02/22/17 16:00 02/22/17 18:15 02/22/17 16:00 02/22/17 18:15 02/22/17 18:15 Intake and Output: 02/22/17 02/22/17 06:59 18:59 Intake Total 2077 605 Output Total 30 Balance 7 605 - Medications Medications: Current Medications Acetylcysteine (Acetylcysteine 20%) 4 ml IH [id number] [facility] Last Admin: 02/17/17 19:48 Dose: Not Given Albuterol Sulfate (Albuterol 0.083% Inhal Amarilys (2.5 Mg/3 Ml) Ud) 2.5 mg IH [id number] PRN PRN Reason: Wheezing Last Admin: 02/22/17 07:04 Dose: 2.5 mg Arformoterol Tartrate (Brovana) 15 mcg IH [id number] [facility] Last Admin: 02/22/17 07:04 Dose: 15 mcg Budesonide (Pulmicort Respules) 0.5 mg IH [id number] [facility] Last Admin: 02/21/17 20:32 Dose: 0.5 mg Clonazepam (Klonopin) 1 mg PO BID [facility] PRN Reason: Protocol Last Admin: 02/14/17 10:00 Dose: Not Given Enalaprilat (Vasotec Iv) 1.25 mg IVP Q6H [facility] Last Admin: 02/22/17 15:23 Dose: 1.25 mg Furosemide (Lasix) 40 mg IVP Q12H [facility] Last Admin: 02/22/17 13:46 Dose: 40 mg Hydrocortisone Sodium Succinate (Solu-Cortef) 50 mg IVP DAILY [facility] Last Admin: 02/22/17 08:59 Dose: 50 mg Hydromorphone HCl (Dilaudid) 2 mg IVP Q4H [facility] Last Admin: 02/22/17 17:38 Dose: 2 mg Dobutamine HCl/Dextrose (Dobutamine/Dextrose 5% 500mg/250ml) 500 mg in 250 mls @ 6.328 mls/hr IV .Q24H PRN; Protocol; 2.5 MCG/KG/MIN PRN Reason: TITRATE PER PROTOCOL Last Admin: 02/18/17 22:37 Dose: 2.5 mcg/kg/min, 6.328 mls/hr Vancomycin HCl 1.5 gm/ Sodium (Chloride) 500 mls @ 167 mls/hr IVPB Q12 [facility] PRN Reason: Protocol Last Admin: 02/22/17 09:01 Dose: 167 mls/hr Fentanyl Citrate (Fentanyl Citrate/Sodium Chloride 1 Mg/100 Ml) 1,000 mcg in 100 mls @ 2 mls/hr IV .Q24H PRN; Protocol; 20 MCG/HR PRN Reason: TITRATE PER MD ORDER Last Admin: 02/22/17 10:53 Dose: 100 mcg/hr, 10 mls/hr Fluconazole (Diflucan Iv 200 Mg/100 Ml Ns) 100 mls @ 100 mls/hr IVPB DAILY [facility] PRN Reason: Protocol Last Admin: 02/22/17 09:08 Dose: 100 mls/hr Metronidazole (Flagyl) 500 mg in 100 mls @ 100 mls/hr IVPB Q6 [facility] PRN Reason: Protocol Last Admin: 02/22/17 17:42 Dose: 100 mls/hr Propofol (Diprivan) 1,000 mg in 100 mls @ 2.43 mls/hr IV .Q24H PRN; Protocol; 5 MCG/KG/MIN PRN Reason: TITRATE PER MD ORDER Last Admin: 02/22/17 17:37 Dose: 30 mcg/kg/min, 14.58 mls/hr Potassium Chloride 30 meq/Amino Acids/Electrolytes/Dextrose 1,015 mls @ 42 mls/ hr IV .Q24H [facility] Last Admin: 02/22/17 17:40 Dose: 42 mls/hr Metoprolol Tartrate (Lopressor) 5 mg IVP Q6H [facility] Last Admin: 02/22/17 13:45 Dose: 5 mg Ondansetron HCl (Zofran Inj) 4 mg IVP Q6 PRN PRN Reason: Nausea/Vomiting Last Admin: 02/13/17 16:26 Dose: 4 mg Pantoprazole Sodium (Protonix Inj) 40 mg IVP DAILY [facility] Last Admin: 02/22/17 09:06 Dose: 40 mg - Labs Labs: 02/22/17 06:48 02/22/17 06:48 PT 15.7 Seconds (9.9-11.8) H 02/22/17 06:48 INR 1.45 (0.93-1.08) H 02/22/17 06:48 APTT 26.8 Seconds (23.7-30.8) 02/22/17 06:48 - Constitutional Appears: Non-toxic, No Acute Distress, Chronically Ill - Head Exam Head Exam: ATRAUMATIC, NORMOCEPHALIC - Eye Exam Eye Exam: EOMI, PERRL Pupil Exam: NORMAL ACCOMODATION, PERRL - ENT Exam ENT Exam: Mucous Membranes Moist, Normal External Ear Exam, TM's Normal Bilaterally - Neck Exam Neck Exam: Full ROM, Normal Inspection - Respiratory Exam Respiratory Exam: Clear to Ausculation Bilateral, NORMAL BREATHING PATTERN. absent: Rales, Rhonchi, Wheezes - Cardiovascular Exam Cardiovascular Exam: REGULAR RHYTHM, RRR, +S1, +S2 - GI/Abdominal Exam GI & Abdominal Exam: Soft, Normal Bowel Sounds. absent: Distended, Tenderness - Extremities Exam Extremities Exam: Full ROM, Normal Inspection - Neurological Exam Neurological Exam: Alert, Awake, CN II-XII Intact Additional comments: AAO x 1, follow simple commands. - Psychiatric Exam Additional comments: opens eyes. follows simple commands. - Skin Skin Exam: Intact, Normal Color Assessment and Plan - Assessment and Plan (Free Text) Assessment: 51 yo female currently intubated and ventilated and poorly responsive with hypotension requiring pressor support with 4 medications. Was on Meropenem and Vancomycin. Extremely poor prognosis. Supportive care. There were concerns for abdominal perforation and findings of extensive abdominal ascites and pneumoperitoneum. Severe anemia requiring PRBC transfusions. Meropenem is a reasonable choice for generalized antibiotic coverage. Continue on meropenem, flagyl, vancomycin, and diflucan for now. Supportive care. Meropenem completed 7 days of treatment. Still on Flagyl, Vancomycin, and Diflucan. Poor prognosis. Lactic acidosis improved but respiratory function has remained about the same or slightly better. Patient hemodynamically stable. Arousable and follows simple commands. Receiving 2 U FFP today. Thank you for allowing me to participate in the care of the patient, we will follow with you.
[2017-02-22] MEDS: Budesonide 0.5 mg/2 ml Inhal Susp UD IH SCH (19:50)
--- NOTE | 2017-02-22 21:54 | CP.PCM.PN ---
Subjective - Date & Time of Evaluation Date of Evaluation: 02/22/17 Time of Evaluation: 15:00 - Subjective Subjective: Patient intuabed unable to assess ROS Received 1 unit of Plts this AM due to plt of 13 and some blood noted in ET tube Objective - Vital Signs/Intake and Output Vital Signs (last 24 hours): Temp Pulse Resp BP Pulse Ox 98.5 F 77 18 115/82 98 02/22/17 16:00 02/22/17 21:29 02/22/17 16:00 02/22/17 18:15 02/22/17 18:15 Intake and Output: 02/22/17 02/23/17 18:59 06:59 Intake Total 2895 Output Total 2350 Balance 545 - Medications Medications: Current Medications Acetylcysteine (Acetylcysteine 20%) 4 ml IH [id number] [facility] Last Admin: 02/17/17 19:48 Dose: Not Given Albuterol Sulfate (Albuterol 0.083% Inhal Amarilys (2.5 Mg/3 Ml) Ud) 2.5 mg IH [id number] PRN PRN Reason: Wheezing Last Admin: 02/22/17 07:04 Dose: 2.5 mg Arformoterol Tartrate (Brovana) 15 mcg IH [id number] [facility] Last Admin: 02/22/17 19:50 Dose: 15 mcg Budesonide (Pulmicort Respules) 0.5 mg IH [id number] [facility] Last Admin: 02/22/17 19:50 Dose: 0.5 mg Clonazepam (Klonopin) 1 mg PO BID [facility] PRN Reason: Protocol Last Admin: 02/14/17 10:00 Dose: Not Given Enalaprilat (Vasotec Iv) 1.25 mg IVP Q6H [facility] Last Admin: 02/22/17 15:23 Dose: 1.25 mg Furosemide (Lasix) 40 mg IVP Q12H [facility] Last Admin: 02/22/17 13:46 Dose: 40 mg Hydrocortisone Sodium Succinate (Solu-Cortef) 50 mg IVP DAILY [facility] Last Admin: 02/22/17 08:59 Dose: 50 mg Hydromorphone HCl (Dilaudid) 2 mg IVP Q4H [facility] Last Admin: 02/22/17 21:25 Dose: 2 mg Dobutamine HCl/Dextrose (Dobutamine/Dextrose 5% 500mg/250ml) 500 mg in 250 mls @ 6.328 mls/hr IV .Q24H PRN; Protocol; 2.5 MCG/KG/MIN PRN Reason: TITRATE PER PROTOCOL Last Admin: 02/18/17 22:37 Dose: 2.5 mcg/kg/min, 6.328 mls/hr Vancomycin HCl 1.5 gm/ Sodium (Chloride) 500 mls @ 167 mls/hr IVPB Q12 [facility] PRN Reason: Protocol Last Admin: 02/22/17 21:30 Dose: 167 mls/hr Fentanyl Citrate (Fentanyl Citrate/Sodium Chloride 1 Mg/100 Ml) 1,000 mcg in 100 mls @ 2 mls/hr IV .Q24H PRN; Protocol; 20 MCG/HR PRN Reason: TITRATE PER MD ORDER Last Admin: 02/22/17 10:53 Dose: 100 mcg/hr, 10 mls/hr Fluconazole (Diflucan Iv 200 Mg/100 Ml Ns) 100 mls @ 100 mls/hr IVPB DAILY [facility]OU[facility] PRN Reason: Protocol Last Admin: 02/22/17 09:08 Dose: 100 mls/hr Metronidazole (Flagyl) 500 mg in 100 mls @ 100 mls/hr IVPB Q6 [facility] PRN Reason: Protocol Last Admin: 02/22/17 17:42 Dose: 100 mls/hr Propofol (Diprivan) 1,000 mg in 100 mls @ 2.43 mls/hr IV .Q24H PRN; Protocol; 5 MCG/KG/MIN PRN Reason: TITRATE PER MD ORDER Last Admin: 02/22/17 17:37 Dose: 30 mcg/kg/min, 14.58 mls/hr Potassium Chloride 30 meq/Amino Acids/Electrolytes/Dextrose 1,015 mls @ 42 mls/ hr IV .Q24H [facility] Last Admin: 02/22/17 17:40 Dose: 42 mls/hr Metoprolol Tartrate (Lopressor) 5 mg IVP Q6H [facility] Last Admin: 02/22/17 21:29 Dose: Not Given Ondansetron HCl (Zofran Inj) 4 mg IVP Q6 PRN PRN Reason: Nausea/Vomiting Last Admin: 02/13/17 16:26 Dose: 4 mg Pantoprazole Sodium (Protonix Inj) 40 mg IVP DAILY [facility] Last Admin: 02/22/17 09:06 Dose: 40 mg - Labs Labs: 02/22/17 06:48 02/22/17 06:48 PT 15.7 Seconds (9.9-11.8) H 02/22/17 06:48 INR 1.45 (0.93-1.08) H 02/22/17 06:48 APTT 26.8 Seconds (23.7-30.8) 02/22/17 06:48 - Constitutional Appears: Other - Head Exam Head Exam: ATRAUMATIC, NORMAL INSPECTION, NORMOCEPHALIC - Respiratory Exam Respiratory Exam: Clear to Ausculation Bilateral, NORMAL BREATHING PATTERN - Cardiovascular Exam Cardiovascular Exam: REGULAR RHYTHM, +S1, +S2. absent: Murmur - GI/Abdominal Exam GI & Abdominal Exam: Soft, Normal Bowel Sounds. absent: Tenderness - Extremities Exam Extremities Exam: Full ROM, Normal Capillary Refill, Normal Inspection. absent : Joint Swelling, Pedal Edema Assessment and Plan (1) Adenocarcinoma of colon Status: Chronic - Assessment and Plan (Free Text) Assessment: Ms. Winchester dorita 50 y/o female with pmx signficant for Crohn's disease, recent dx of adeno ca admitted with sepsis physiology 2/2 to abdominal perforation complicated by ESBL urosepsis, concern for acalculous cholecystitis (though HIDA subsequently negative) and thrombocytopenia. DIC labs demonstrated normal fibrinogen which argues again DIC. Thrombocytopenia likely reactive in setting of sepsis physiology. Patient required unit of Plts today. Recommend obtaining LDH, haptoglobin, reticulocyte count, and peripheral smear to rule out hemolysis. Recommended transfusions if plts <20 (if febrile) or plt<10 ( afebrile) and for hgb <7. Further discussions regarding treatment of newly diagnosed colon ca would be stipulated on recovery from current hospitalization
[2017-02-23] MEDS: Propofol 10 mg/ml 1,000 MG/100 ML VIAL IV PRN ×2 (00:04→06:56)
[2017-02-23] MEDS: metroNIDAZOLE IV 500 mg/100 ml 500 MG/100 ML BAG IVPB SCH ×4 (00:05→19:04)
[2017-02-23] MEDS: HYDROmorphone 2 mg/ml ISec IVP SCH ×7 (00:30→20:45)
[2017-02-23] MEDS: Metoprolol 1 mg/ml Inj IVP SCH ×5 (03:30→21:34)
[2017-02-23] MEDS: EnalaprilAT 1.25 mg/ml Inj IVP SCH ×4 (04:20→22:48)
[2017-02-23 05:56] LABS: ARTERIAL BLOOD GAS O2 CAPACITY 14.7 mL/dl (16-24); ARTERIAL BLOOD GAS O2 CONTENT 14.4 ML/dl (15-23); ARTERIAL BLOOD GAS PH 7.48 (7.35-7.45); ARTERIAL BLOOD HGB O2 SAT 95.3 % (95.0-98.0); CARBOXYHEMOGLOBIN 1.4 % (0.5-1.5); HHB 2.1 % (0-5); METHEMOGLOBIN 1.2 % (0.0-3.0)
[2017-02-23 06:09] LABS: ADD MANUAL DIFF? NO
[2017-02-23 06:11] LABS: BASO % 2.8 % (0.0-3.0); EOS # 0.6 (0.0-0.7); GRAN # 14.72 (1.4-6.5); GRAN % 81.2 % (50.0-68.0); HEMATOCRIT 34.7 % (36.0-48.0); LYMPH # 2.2 (1.2-3.4); LYMPH % 12.1 % (22.0-35.0); MEAN CELL VOLUME 91.1 fL (80.0-105.0); MEAN CORPUSCULAR HEMOGLOBIN 29.1 pg (25.0-35.0); MEAN PLATELET VOLUME 8.8 fl (7.0-11.0); MONO # 0.2 (0.1-0.6); MONO % 0.9 % (1.0-6.0); RED CELL DISTRIBUTION WIDTH 18.2 % (11.5-14.5); WHITE BLOOD COUNT 18.1 10^3/ul (4.5-11.0)
[2017-02-23 06:17] LABS: PLATELET COUNT 42 10^3/uL (120.0-450.0)
[2017-02-23 06:26] LABS: INR 1.29 (0.93-1.08); PARTIAL THROMBOPLASTIN TIME 25.9 Seconds (23.7-30.8)
[2017-02-23 07:04] LABS: ALB/GLOB RATIO 0.7 (1.1-1.8); ALKALINE PHOSPHATASE 130 U/L (38-133); ALT/SGPT 57 U/L (7-56); AST/SGOT 61 U/L (15-39); BILIRUBIN,TOTAL 1.4 mg/dL (0.2-1.3); BLOOD UREA NITROGEN 44 mg/dL (7-21); CALCIUM 9.1 mg/dL (8.4-10.5); CARBON DIOXIDE 38 mmol/L (21-33); CHLORIDE 103 mmol/L (98-107); GFR AFRICAN-AMERICAN > 60; GLUCOSE,RANDOM 93 mg/dL (70-110); POTASSIUM 3.1 mmol/L (3.6-5.0); SODIUM 147 mmol/L (132-148); TOTAL PROTEIN 6.1 g/dL (5.8-8.3)
[2017-02-23] MEDS: Budesonide 0.5 mg/2 ml Inhal Susp UD IH SCH ×2 (08:56→19:50)
[2017-02-23] MEDS: Arformoterol 15 mcg/2 ml Inh Sol IH SCH ×2 (08:56→19:50)
[2017-02-23] MEDS: Fluconazole IV 200mg/100 ml NS 100 ML IVPB SCH (09:19)
--- NOTE | 2017-02-23 10:57 | RAD ---
HISTORY: intubation COMPARISON: 02/22/2017 FINDINGS: LUNGS: There is improvement in the right upper lobe consolidation seen previously. There is also improvement in the left perihilar infiltrate. There is a persistent bilateral perihilar infiltrate. PLEURA: No significant pleural effusion identified, no pneumothorax apparent. CARDIOVASCULAR: Normal. OSSEOUS STRUCTURES: No significant abnormalities. VISUALIZED UPPER ABDOMEN: Normal. OTHER FINDINGS: Endotracheal tube and nasogastric tube in satisfactory position IMPRESSION: There is improvement in the right upper lobe consolidation seen previously. There is also improvement in the left perihilar infiltrate. There is a persistent bilateral perihilar infiltrate.
--- NOTE | 2017-02-23 11:13 | PN ---
DATE: 02/23/2017 The patient seen and examined at bedside. She is alert and awake and following commands. PHYSICAL EXAMINATION: VITAL SIGNS: Oxygen saturation 98% on 50% FiO2, heart rate 96, end tidal CO2 47 -50, respiratory rate 13. The patient tolerates pressure support trial 5/5 with FiO2 50% and currently is getting extubated. HEAD AND NECK: Atraumatic. LUNGS: Clear to auscultation bilaterally. HEART: Regular rate and rhythm. S1, S2 normal. ABDOMEN: Soft, nontender, nondistended. Colostomy bag has moderate amount of fecal matter and colostomy looks viable and pink. MUSCULOSKELETAL: Trace bilateral pedal and ankle edema. NEUROLOGIC: The patient moves all extremities spontaneously. SKIN: Moist. PSYCHIATRIC: The patient is following commands. LABORATORIES: WBC 18.1, down from 23.9, hemoglobin 11.1, platelet count 42. Sodium 147, potassium 3.1 (supplemented), chloride 103, BUN 44, creatinine 0.7, glucose 93, AST 61, ALT 57. All is trending down. MEDICATIONS: DuoNeb p.r.n., TPN, Brovana, Pulmicort, Klonopin, fluconazole, Vasotec, Flagyl, Lasix 40 mg IV q. 12, hydrocortisone 25 mg IV daily, Dilaudid 2 mg IV q. 4, Lopressor 5 mg IV q. 6, Zofran p.r.n., potassium supplementation, vancomycin. ASSESSMENT AND PLAN: This is a 51-year-old lady with now resolved septic shock/ MODS. At present time, patient is off of pressors/ inotrops. Her renal function improved and acute kidney injury resolved. The patient passed pressure support trial and will be extubated to BiPAP. Her rapid shallow breathing index was 50. We are continuing with conservative oxygen and fluid management. The patient continues to be on antibiotics. We are aggressively supplementing electrolytes. The patient is on total parenteral nutrition at present time. However, if successfully extubated and clinically improved/ stabilized and surgical service Ok, we will try initially water through nasogastric tube and then potentially some feeding. NEUROLOGIC: The patient will continue to be on opiates for pain control. However, she is off of propofol and Precedex. She is following commands. She is alert and awake and she is moving all 4 extremities. PULMONARY: The patient is extubated to BiPAP. We will continue with conservative fluid and oxygen management. We will continue with head of bed elevated more than 35 degrees and aspiration precaution. We will continue with bronchodilators, pulmonary toilet, chest physiotherapy and incentive spirometry. We will continue with early mobilization as tolerated. We will consider out of bed to chair. CARDIOVASCULAR: The patient has moderate left ventricular systolic dysfunction. She is on enalapril for afterload reduction. Conservative fluid approach would allow for preload reduction as well. BiPAP would allow for pre and afterload reduction as well. Cardiology service is following her as well. GASTROINTESTINAL: The patient is n.p.o. She is getting total parenteral nutrition. She is on gastrointestinal prophylaxis. Once cleared by surgery and clinically a little bit more stabilized/improved, we are going to consider enteral nutrition. ENDOCRINE: We will continue with maintaining blood glucose within 140-180 range. Stress dose steroids are tapered down and will be weaned off. INFECTIOUS DISEASE: Leukocytosis improved. The patient is afebrile. Her abdominal exam is fairly benign at this point. HIDA scan negative for acute cholecystitis. Peripherally inserted central catheter line was placed and old central venous catheter was removed. Her chest x-ray looks a little bit better , but still wet without distinct infiltrate. HEMATOLOGY: Her thrombocytopenia is improving. The threshold for packed red blood cell transfusion will be 7 and threshold for platelet transfusion will be 10. We will continue with deep venous thrombosis and gastrointestinal prophylaxis. ccm time 40 min Van Lopez MD cc: [id number] TT: 02/23/2017 11:12:32 Confirmation # [id number] Dictation # [id number] en MTDD
--- NOTE | 2017-02-23 11:57 | CP.PCM.PN ---
Subjective - Date & Time of Evaluation Date of Evaluation: 02/23/17 Time of Evaluation: 11:54 - Subjective Subjective: Surgery: Dr. Marti Patient s/p extubation and currently on BIPAP. Patient awake and alert. Remains in ICU. Patient s/p 2 units platelets transfusion. Objective - Vital Signs/Intake and Output Vital Signs (last 24 hours): Temp Pulse Resp BP Pulse Ox 98.6 F 100 H 16 113/74 97 02/23/17 08:00 02/23/17 11:15 02/23/17 11:15 02/23/17 11:15 02/23/17 11:15 Intake and Output: 02/23/17 02/23/17 06:59 18:59 Intake Total 1726 95.83 Output Total 2000 Balance -274 95.83 - Medications Medications: Current Medications Acetylcysteine (Acetylcysteine 20%) 4 ml IH [id number] [facility] Last Admin: 02/17/17 19:48 Dose: Not Given Albuterol Sulfate (Albuterol 0.083% Inhal Amarilys (2.5 Mg/3 Ml) Ud) 2.5 mg IH [id number] PRN PRN Reason: Wheezing Last Admin: 02/22/17 07:04 Dose: 2.5 mg Arformoterol Tartrate (Brovana) 15 mcg IH [id number] [facility] Last Admin: 02/23/17 08:56 Dose: 15 mcg Budesonide (Pulmicort Respules) 0.5 mg IH [id number] [facility] Last Admin: 02/23/17 08:56 Dose: 0.5 mg Clonazepam (Klonopin) 1 mg PO BID [facility] PRN Reason: Protocol Last Admin: 02/14/17 10:00 Dose: Not Given Enalaprilat (Vasotec Iv) 1.25 mg IVP Q6H [facility] Last Admin: 02/23/17 09:20 Dose: 1.25 mg Furosemide (Lasix) 40 mg IVP Q12H [facility] Last Admin: 02/23/17 03:30 Dose: 40 mg Hydrocortisone Sodium Succinate (Solu-Cortef) 25 mg IVP DAILY [facility] Last Admin: 02/23/17 09:20 Dose: 25 mg Hydromorphone HCl (Dilaudid) 2 mg IVP Q4H [facility] Last Admin: 02/23/17 10:30 Dose: 2 mg Dobutamine HCl/Dextrose (Dobutamine/Dextrose 5% 500mg/250ml) 500 mg in 250 mls @ 6.328 mls/hr IV .Q24H PRN; Protocol; 2.5 MCG/KG/MIN PRN Reason: TITRATE PER PROTOCOL Last Admin: 02/18/17 22:37 Dose: 2.5 mcg/kg/min, 6.328 mls/hr Vancomycin HCl 1.5 gm/ Sodium (Chloride) 500 mls @ 167 mls/hr IVPB Q12 [facility] PRN Reason: Protocol Last Admin: 02/22/17 21:30 Dose: 167 mls/hr Fentanyl Citrate (Fentanyl Citrate/Sodium Chloride 1 Mg/100 Ml) 1,000 mcg in 100 mls @ 2 mls/hr IV .Q24H PRN; Protocol; 20 MCG/HR PRN Reason: TITRATE PER MD ORDER Last Titration: 02/23/17 08:04 Dose: 50 mcg/hr, 5 mls/hr Fluconazole (Diflucan Iv 200 Mg/100 Ml Ns) 100 mls @ 100 mls/hr IVPB DAILY [facility] PRN Reason: Protocol Last Admin: 02/23/17 09:19 Dose: 100 mls/hr Metronidazole (Flagyl) 500 mg in 100 mls @ 100 mls/hr IVPB Q6 [facility] PRN Reason: Protocol Last Admin: 02/23/17 05:24 Dose: 100 mls/hr Propofol (Diprivan) 1,000 mg in 100 mls @ 2.43 mls/hr IV .Q24H PRN; Protocol; 5 MCG/KG/MIN PRN Reason: TITRATE PER MD ORDER Last Admin: 02/23/17 06:56 Dose: 30 mcg/kg/min, 14.58 mls/hr Potassium Chloride 30 meq/Amino Acids/Electrolytes/Dextrose 1,015 mls @ 42 mls/ hr IV .Q24H [facility] Last Admin: 02/22/17 17:40 Dose: 42 mls/hr Potassium Chloride (Potassium Chloride 20 Meq/100 Ml) 20 meq in 100 mls @ 50 mls/hr IVPB Q2H [facility] Stop: 02/23/17 12:14 Last Admin: 02/23/17 08:55 Dose: 50 mls/hr Metoprolol Tartrate (Lopressor) 5 mg IVP Q6H [facility] Last Admin: 02/23/17 08:57 Dose: 5 mg Ondansetron HCl (Zofran Inj) 4 mg IVP Q6 PRN PRN Reason: Nausea/Vomiting Last Admin: 02/13/17 16:26 Dose: 4 mg Pantoprazole Sodium (Protonix Inj) 40 mg IVP DAILY [facility] Last Admin: 02/23/17 09:19 Dose: 40 mg - Labs Labs: 02/23/17 06:00 02/23/17 06:00 PT 13.9 Seconds (9.9-11.8) H 02/23/17 06:00 INR 1.29 (0.93-1.08) H 02/23/17 06:00 APTT 25.9 Seconds (23.7-30.8) 02/23/17 06:00 - Constitutional Appears: No Acute Distress, Chronically Ill - Head Exam Head Exam: ATRAUMATIC, NORMOCEPHALIC - Eye Exam Eye Exam: EOMI, Normal appearance - ENT Exam ENT Exam: Mucous Membranes Dry - Respiratory Exam Additional comments: on BiPAP s/p extubation sat 100% - Cardiovascular Exam Cardiovascular Exam: REGULAR RHYTHM. absent: Tachycardia - GI/Abdominal Exam GI & Abdominal Exam: Distended, Soft. absent: Guarding, Rigid, Rebound - Extremities Exam Extremities Exam: Pedal Edema. absent: Calf Tenderness - Neurological Exam Neurological Exam: Alert, Awake Assessment and Plan - Assessment and Plan (Free Text) Assessment: 51 y/o female with septic shock and multiorgan failure, clinical status improving s/p extubation Plan: -cont to monitor respiratory status -swallow eval -management per ICU team -transfuse prn -will address lymph node biopsy once clinical status stable -seen and examined w/ Dr. Marti [facility], [place], operated by [facility] PGY1
--- NOTE | 2017-02-23 12:33 | CP.PCM.PN ---
<Melchor Pringle - Last Filed: 02/23/17 12:28> Subjective - Date & Time of Evaluation Date of Evaluation: 02/23/17 Time of Evaluation: 12:29 - Subjective Subjective: Patient off Diprovan. Passed weaning trial and is now extubated. She is alert, awake and following commands. She is experiencing abdominal pain as well as right hand pain. Patient remains hemodynamically stable. She is afebrile. Objective - Vital Signs/Intake and Output Vital Signs (last 24 hours): Temp Pulse Resp BP Pulse Ox 98.6 F 100 H 16 113/74 97 02/23/17 08:00 02/23/17 11:15 02/23/17 11:15 02/23/17 11:15 02/23/17 11:15 Intake and Output: 02/23/17 02/23/17 06:59 18:59 Intake Total 1726 95.83 Output Total 2000 Balance -274 95.83 - Medications Medications: Current Medications Acetylcysteine (Acetylcysteine 20%) 4 ml IH [id number] COUNTS INCLUDE 234 BEDS AT THE [facility] Last Admin: 02/17/17 19:48 Dose: Not Given Albuterol Sulfate (Albuterol 0.083% Inhal Amarilys (2.5 Mg/3 Ml) Ud) 2.5 mg IH [id number] PRN PRN Reason: Wheezing Last Admin: 02/22/17 07:04 Dose: 2.5 mg Arformoterol Tartrate (Brovana) 15 mcg IH [id number] COUNTS INCLUDE 234 BEDS AT THE [facility] Last Admin: 02/23/17 08:56 Dose: 15 mcg Budesonide (Pulmicort Respules) 0.5 mg IH [id number] COUNTS INCLUDE 234 BEDS AT THE [facility] Last Admin: 02/23/17 08:56 Dose: 0.5 mg Clonazepam (Klonopin) 1 mg PO BID COUNTS INCLUDE 234 BEDS AT THE [facility] PRN Reason: Protocol Last Admin: 02/14/17 10:00 Dose: Not Given Enalaprilat (Vasotec Iv) 1.25 mg IVP Q6H COUNTS INCLUDE 234 BEDS AT THE [facility] Last Admin: 02/23/17 09:20 Dose: 1.25 mg Furosemide (Lasix) 40 mg IVP Q12H COUNTS INCLUDE 234 BEDS AT THE [facility] Last Admin: 02/23/17 03:30 Dose: 40 mg Hydrocortisone Sodium Succinate (Solu-Cortef) 25 mg IVP DAILY COUNTS INCLUDE 234 BEDS AT THE [facility] Last Admin: 02/23/17 09:20 Dose: 25 mg Hydromorphone HCl (Dilaudid) 2 mg IVP Q4H COUNTS INCLUDE 234 BEDS AT THE [facility] Last Admin: 02/23/17 10:30 Dose: 2 mg Dobutamine HCl/Dextrose (Dobutamine/Dextrose 5% 500mg/250ml) 500 mg in 250 mls @ 6.328 mls/hr IV .Q24H PRN; Protocol; 2.5 MCG/KG/MIN PRN Reason: TITRATE PER PROTOCOL Last Admin: 02/18/17 22:37 Dose: 2.5 mcg/kg/min, 6.328 mls/hr Vancomycin HCl 1.5 gm/ Sodium (Chloride) 500 mls @ 167 mls/hr IVPB Q12 RAOUL PRN Reason: Protocol Last Admin: 02/22/17 21:30 Dose: 167 mls/hr Fentanyl Citrate (Fentanyl Citrate/Sodium Chloride 1 Mg/100 Ml) 1,000 mcg in 100 mls @ 2 mls/hr IV .Q24H PRN; Protocol; 20 MCG/HR PRN Reason: TITRATE PER MD ORDER Last Titration: 02/23/17 08:04 Dose: 50 mcg/hr, 5 mls/hr Fluconazole (Diflucan Iv 200 Mg/100 Ml Ns) 100 mls @ 100 mls/hr IVPB DAILY COUNTS INCLUDE 234 BEDS AT THE [facility] PRN Reason: Protocol Last Admin: 02/23/17 09:19 Dose: 100 mls/hr Metronidazole (Flagyl) 500 mg in 100 mls @ 100 mls/hr IVPB Q6 RAOUL PRN Reason: Protocol Last Admin: 02/23/17 05:24 Dose: 100 mls/hr Propofol (Diprivan) 1,000 mg in 100 mls @ 2.43 mls/hr IV .Q24H PRN; Protocol; 5 MCG/KG/MIN PRN Reason: TITRATE PER MD ORDER Last Admin: 02/23/17 06:56 Dose: 30 mcg/kg/min, 14.58 mls/hr Potassium Chloride 30 meq/Amino Acids/Electrolytes/Dextrose 1,015 mls @ 42 mls/ hr IV .Q24H COUNTS INCLUDE 234 BEDS AT THE [facility] Last Admin: 02/22/17 17:40 Dose: 42 mls/hr Metoprolol Tartrate (Lopressor) 5 mg IVP Q6H COUNTS INCLUDE 234 BEDS AT THE [facility] Last Admin: 02/23/17 08:57 Dose: 5 mg Ondansetron HCl (Zofran Inj) 4 mg IVP Q6 PRN PRN Reason: Nausea/Vomiting Last Admin: 02/13/17 16:26 Dose: 4 mg Pantoprazole Sodium (Protonix Inj) 40 mg IVP DAILY RAOUL Last Admin: 02/23/17 09:19 Dose: 40 mg - Labs Labs: 02/23/17 06:00 02/23/17 06:00 PT 13.9 Seconds (9.9-11.8) H 02/23/17 06:00 INR 1.29 (0.93-1.08) H 02/23/17 06:00 APTT 25.9 Seconds (23.7-30.8) 02/23/17 06:00 - Head Exam Head Exam: ATRAUMATIC, NORMOCEPHALIC - Eye Exam Eye Exam: EOMI, PERRL - ENT Exam ENT Exam: Mucous Membranes Dry - Neck Exam Neck Exam: Normal Inspection. absent: Lymphadenopathy - Respiratory Exam Respiratory Exam: Rhonchi (diffuse bilaterally ). absent: Clear to Ausculation Bilateral, Rales, NORMAL BREATHING PATTERN - Cardiovascular Exam Cardiovascular Exam: REGULAR RHYTHM, +S1, +S2. absent: Tachycardia - GI/Abdominal Exam GI & Abdominal Exam: Distended, Soft, Tenderness (diffusely to all quadrants ). absent: Firm - Extremities Exam Additional comments: cyanosis to right 4th digit. cyanosis to right 4th toe resolved. toe is pink. - Neurological Exam Neurological Exam: Alert, Awake Additional comments: moves all extremities - Skin Skin Exam: Cyanosis (right 4th digit), Dry, Warm Assessment and Plan - Assessment and Plan (Free Text) Assessment: 51 year old female with past medical history of Crohns disease, asthma, bipolar disorder, polysubstance abuse and recent diagnoses of adenocarcinoma of the colon. Patient is in the ICU recovering from Septic shock 2/2 to abdominal perforation complicated by ESBL urosepsis, concern for acalculous cholecystitis and thrombocytopenia. Septic shock is resolved. Renal function is improving as well as shock liver. Patient is extubate to biPAP Septic shock 2/2 abdominal perforation complicated by ESBL urosepsis now resolved - manage per CCU team - continue abx per ICU, ID - Palliative care is following. Discussion will need to be had with family regarding ultimate care for the patient. Blue/dusky discoloration to right fingers concerning for thrombus - doppler was done. no evidence of thrombus acute kidney injury 2/2 septic shock, multi-organ dysfunction syndrome - renal function is improving - avoiding nephrotoxic drugs when possible - maintaining MAP >65 transaminitis 2/2 shock liver in setting of septic shock - liver enzymes trending down - continue to maintain MAP >65 - monitor liver enzymes daily thrombocytopenia 2/2 DIC associated with sepsis -transfused 2u platelets with modest improvement - daily CBC - SCD's bacteremia - E. faecalis in blood culture - continue abx per ID, ICU team UTI - Proteus mirabilis, ESBL in urine - continue abx as above Adenocarcinoma of colon: - heme/onc following - Ct of chest shows interstitial infiltrates with extensive bibasilar consolidations. Extensive B/L and medistinal LAD. <Mari Kincaid B - Last Filed: 02/23/17 14:20> Objective - Vital Signs/Intake and Output Vital Signs (last 24 hours): Temp Pulse Resp BP Pulse Ox 98.6 F 100 H 16 113/74 97 02/23/17 08:00 02/23/17 11:15 02/23/17 11:15 02/23/17 11:15 02/23/17 11:15 Intake and Output: 02/23/17 02/23/17 06:59 18:59 Intake Total 1726 95.83 Output Total 2000 Balance -274 95.83 - Medications Medications: Current Medications Acetylcysteine (Acetylcysteine 20%) 4 ml IH [id number] COUNTS INCLUDE 234 BEDS AT THE [facility] Last Admin: 02/17/17 19:48 Dose: Not Given Albuterol Sulfate (Albuterol 0.083% Inhal Amarilys (2.5 Mg/3 Ml) Ud) 2.5 mg IH [id number] PRN PRN Reason: Wheezing Last Admin: 02/22/17 07:04 Dose: 2.5 mg Arformoterol Tartrate (Brovana) 15 mcg IH [id number] RAOUL Last Admin: 02/23/17 08:56 Dose: 15 mcg Budesonide (Pulmicort Respules) 0.5 mg IH [id number] RAOUL Last Admin: 02/23/17 08:56 Dose: 0.5 mg Clonazepam (Klonopin) 1 mg PO BID RAOUL PRN Reason: Protocol Last Admin: 02/14/17 10:00 Dose: Not Given Enalaprilat (Vasotec Iv) 1.25 mg IVP Q6H COUNTS INCLUDE 234 BEDS AT THE [facility] Last Admin: 02/23/17 09:20 Dose: 1.25 mg Furosemide (Lasix) 40 mg IVP Q12H COUNTS INCLUDE 234 BEDS AT THE [facility] Last Admin: 02/23/17 03:30 Dose: 40 mg Hydrocortisone Sodium Succinate (Solu-Cortef) 25 mg IVP DAILY COUNTS INCLUDE 234 BEDS AT THE [facility] Last Admin: 02/23/17 09:20 Dose: 25 mg Hydromorphone HCl (Dilaudid) 2 mg IVP Q4H COUNTS INCLUDE 234 BEDS AT THE [facility] Last Admin: 02/23/17 10:30 Dose: 2 mg Dobutamine HCl/Dextrose (Dobutamine/Dextrose 5% 500mg/250ml) 500 mg in 250 mls @ 6.328 mls/hr IV .Q24H PRN; Protocol; 2.5 MCG/KG/MIN PRN Reason: TITRATE PER PROTOCOL Last Admin: 02/18/17 22:37 Dose: 2.5 mcg/kg/min, 6.328 mls/hr Vancomycin HCl 1.5 gm/ Sodium (Chloride) 500 mls @ 167 mls/hr IVPB Q12 RAOUL PRN Reason: Protocol Last Admin: 02/22/17 21:30 Dose: 167 mls/hr Fentanyl Citrate (Fentanyl Citrate/Sodium Chloride 1 Mg/100 Ml) 1,000 mcg in 100 mls @ 2 mls/hr IV .Q24H PRN; Protocol; 20 MCG/HR PRN Reason: TITRATE PER MD ORDER Last Titration: 02/23/17 08:04 Dose: 50 mcg/hr, 5 mls/hr Fluconazole (Diflucan Iv 200 Mg/100 Ml Ns) 100 mls @ 100 mls/hr IVPB DAILY COUNTS INCLUDE 234 BEDS AT THE [facility] PRN Reason: Protocol Last Admin: 02/23/17 09:19 Dose: 100 mls/hr Metronidazole (Flagyl) 500 mg in 100 mls @ 100 mls/hr IVPB Q6 COUNTS INCLUDE 234 BEDS AT THE [facility] PRN Reason: Protocol Last Admin: 02/23/17 05:24 Dose: 100 mls/hr Propofol (Diprivan) 1,000 mg in 100 mls @ 2.43 mls/hr IV .Q24H PRN; Protocol; 5 MCG/KG/MIN PRN Reason: TITRATE PER MD ORDER Last Admin: 02/23/17 06:56 Dose: 30 mcg/kg/min, 14.58 mls/hr Potassium Chloride 30 meq/Amino Acids/Electrolytes/Dextrose 1,015 mls @ 42 mls/ hr IV .Q24H COUNTS INCLUDE 234 BEDS AT THE [facility] Last Admin: 02/22/17 17:40 Dose: 42 mls/hr Amino Acids/Electrolytes/Dextrose (Clinimix 5/20 % "E" (1000 Ml)) 1,000 mls @ 42 mls/hr IV .[id number] COUNTS INCLUDE 234 BEDS AT THE [facility] Metoprolol Tartrate (Lopressor) 5 mg IVP Q6H COUNTS INCLUDE 234 BEDS AT THE [facility] Last Admin: 02/23/17 08:57 Dose: 5 mg Ondansetron HCl (Zofran Inj) 4 mg IVP Q6 PRN PRN Reason: Nausea/Vomiting Last Admin: 02/13/17 16:26 Dose: 4 mg Pantoprazole Sodium (Protonix Inj) 40 mg IVP DAILY COUNTS INCLUDE 234 BEDS AT THE [facility] Last Admin: 02/23/17 09:19 Dose: 40 mg - Labs Labs: 02/23/17 06:00 02/23/17 06:00 PT 13.9 Seconds (9.9-11.8) H 02/23/17 06:00 INR 1.29 (0.93-1.08) H 02/23/17 06:00 APTT 25.9 Seconds (23.7-30.8) 02/23/17 06:00 Attending/Attestation - Attestation I have personally seen and examined this patient.: Yes I have fully participated in the care of the patient.: Yes I have reviewed all pertinent clinical information, including history, physical exam and plan: Yes Notes (Text): I have seen and examined the patient at bedside. Agree with the above note with the following additions/ exceptions: Briefly this is 51 year old female with history of Crohn's disease, colostomy, asthma, bipolar disorder, polysubstance abuse, recent diagnoses of adenocarcinoma of the colon , psoriasis, anxiety, depression who presented with generalized weakness and leg pain. Colonoscopy revealed large bulky friable mass with severe stenosis however no biopsy was performed. Her stay was complicated by septic shock and pneumoperitoneum due to abdominal perforation ( family preferred non operative management) and was found to have metabolic acidosis, elevated troponin, transaminitis due to shock liver, DIC, anemia, thrombocytopenia, acute kidney injury, E Fecalis bacteremia, E coli/ proteus UTI and ventilator dependent respiratory failure. Patient is DNR. This morning patient got extubated and she is able to follow commands. Leukocytosis slightly improved. Repeat blood culture, urine culture and stool for cdiff is negative. Patient has completed meropenem. Continue fluconazole, vanco and flagyl. She was given 2 units of platelets yesterday. Echo revealed EF of 40% and moderately reduced RV systolic dysfunction and global hypokinesis of LV. Continue lasix. Will order for swallow eval. Dr Mari Kincaid
--- NOTE | 2017-02-23 14:03 | PN ---
DATE: 02/23/2017 SUBJECTIVE: The patient is seen in the ICU. She is awake. Eyes are open. She was just extubated a little while ago. She is not really following commands at this time. She does not appear to be in any kind of distress. She is on facemask. PHYSICAL EXAMINATION: GENERAL: A middle-aged lady lying in bed in the ICU. VITAL SIGNS: Blood pressure 1____/74, heart rate 100, respiratory rate 16, temperature 98.6. HEENT: Normocephalic, atraumatic. NECK: Supple. No JVD. LUNGS: Bilateral rhonchi, inspiratory wheeze. CARDIAC: S1, S2, regular rate and rhythm. No murmur, no rub. ABDOMEN: Obese, distended, soft, positive colostomy. EXTREMITIES: Bluish discoloration of toes on the right foot, bluish discoloration of 2 fingers on th e right hand, swelling of the right hand, blister on the right hand. INTAKE AND OUTPUT: 4621/4350. LABORATORY DATA: WBC 18, hemoglobin 11, hematocrit 35, platelets 42. Sodium 147, potassium 3.1, chl oride 103, CO2 of 38. BUN 44, creatinine 0.7. Glucose 93. Calcium 9.1. Total bilirubin 1.4. AST 61, ALT 57, albumin 2.6. Blood cultures - no growth from 02/20. Stool culture from 02/19 - no Salmonella, Shigella, or campylobacter. CURRENT MEDICATIONS: DuoNeb, Brovana, Diflucan, Dilaudid, propofol, Flagyl, Klonopin, Lasix 40 IV q. 12, Lopressor 5 mg IV q. 6 p.r.n., Protonix, Pulmicort, Solu-Cortef, vancomycin, Vasotec, Zofran. ASSESSMENT: 1. A 51-year-old with resolving septic shock and multiorgan dysfunction. The patient is now off gianna tilatory support. She is off pressors. Her acute kidney injury has resolved. She remains on high-f low oxygen. The patient also remains on antibiotics. 2. Resolved acute kidney injury, largely prerenal azotemia. 3. Severe hypokalemia. 4. Mixed alkalosis. 5. Status post gastrointestinal bleed. 6. Thrombocytopenia. 7. Right-sided hydronephrosis. 8. Colon cancer. 9. History of intraabdominal free air. 10. Past history of intraabdominal abscess, colectomy, colostomy. PLAN: 1. Continue ICU support. 2. Continue antibiotics, as per infectious disease recommendations. 3. Replace potassium aggressively. 4. Continue hyperal. 5. Transfuse platelets as needed. 6. Continue IV Lasix. 7. Monitor right hand closely. 8. Remains critically ill. More than 35 minutes were spent in the care of this critically-ill patient. Lucinda Kelley MD cc: [phone] TT: 02/23/2017 14:03:20 Confirmation # [id number] Dictation # [id number]
[2017-02-23] MEDS: Vancomycin 1.5 GM in Sodium Chloride 0.9% 500 ML IVPB SCH (17:43)
--- NOTE | 2017-02-23 18:25 | CP.PCM.PN ---
Subjective - Date & Time of Evaluation Date of Evaluation: 02/23/17 Time of Evaluation: 17:15 - Subjective Subjective: Infectious Disease Follow Up: February 23, 2017 50 yo female with history of Crohn's disease admitted for groin and abdominal pain. She was recently discharged from the hospital with Doxycycline and Augmentin. During the hospitalization the patient short of breath, tachycardic , and tachypnic. Patient became hypotensive and required admission to the MICU. The patient required pressors and intubation and ventilation shortly after admission. The patient was on multiple pressors and received 4 units of PRBCs and FFPs. The patient extubated today. Her acidosis improved. Respiratory functions improvee. Hemodynamically staple. She was extubated and is on nasal canula on 3 L of O2. Off pressors. Opens eyes and follows commands. Receiving 2 U FFPs yesterday. Objective - Vital Signs/Intake and Output Vital Signs (last 24 hours): Temp Pulse Resp BP Pulse Ox 98.6 F 102 H 25 H 150/96 H 95 02/23/17 08:00 02/23/17 17:30 02/23/17 15:30 02/23/17 18:00 02/23/17 17:30 Intake and Output: 02/23/17 02/23/17 06:59 18:59 Intake Total 1726 95.83 Output Total 2000 Balance -274 95.83 - Medications Medications: Current Medications Acetylcysteine (Acetylcysteine 20%) 4 ml IH [id number] [facility] Last Admin: 02/17/17 19:48 Dose: Not Given Albuterol Sulfate (Albuterol 0.083% Inhal Amarilys (2.5 Mg/3 Ml) Ud) 2.5 mg IH [id number] PRN PRN Reason: Wheezing Last Admin: 02/22/17 07:04 Dose: 2.5 mg Arformoterol Tartrate (Brovana) 15 mcg IH [id number] [facility] Last Admin: 02/23/17 08:56 Dose: 15 mcg Budesonide (Pulmicort Respules) 0.5 mg IH [id number] [facility] Last Admin: 02/23/17 08:56 Dose: 0.5 mg Clonazepam (Klonopin) 1 mg PO BID RAOUL PRN Reason: Protocol Last Admin: 02/14/17 10:00 Dose: Not Given Enalaprilat (Vasotec Iv) 1.25 mg IVP Q6H [facility] Last Admin: 02/23/17 18:00 Dose: 1.25 mg Furosemide (Lasix) 40 mg IVP Q12H [facility] Last Admin: 02/23/17 15:35 Dose: 40 mg Hydrocortisone Sodium Succinate (Solu-Cortef) 25 mg IVP DAILY [facility] Last Admin: 02/23/17 09:20 Dose: 25 mg Hydromorphone HCl (Dilaudid) 2 mg IVP Q4H [facility] Last Admin: 02/23/17 18:00 Dose: 2 mg Dobutamine HCl/Dextrose (Dobutamine/Dextrose 5% 500mg/250ml) 500 mg in 250 mls @ 6.328 mls/hr IV .Q24H PRN; Protocol; 2.5 MCG/KG/MIN PRN Reason: TITRATE PER PROTOCOL Last Admin: 02/18/17 22:37 Dose: 2.5 mcg/kg/min, 6.328 mls/hr Fentanyl Citrate (Fentanyl Citrate/Sodium Chloride 1 Mg/100 Ml) 1,000 mcg in 100 mls @ 2 mls/hr IV .Q24H PRN; Protocol; 20 MCG/HR PRN Reason: TITRATE PER MD ORDER Last Titration: 02/23/17 08:04 Dose: 50 mcg/hr, 5 mls/hr Fluconazole (Diflucan Iv 200 Mg/100 Ml Ns) 100 mls @ 100 mls/hr IVPB DAILY [facility] PRN Reason: Protocol Last Admin: 02/23/17 09:19 Dose: 100 mls/hr Metronidazole (Flagyl) 500 mg in 100 mls @ 100 mls/hr IVPB Q6 [facility] PRN Reason: Protocol Last Admin: 02/23/17 18:03 Dose: 100 mls/hr Propofol (Diprivan) 1,000 mg in 100 mls @ 2.43 mls/hr IV .Q24H PRN; Protocol; 5 MCG/KG/MIN PRN Reason: TITRATE PER MD ORDER Last Admin: 02/23/17 06:56 Dose: 30 mcg/kg/min, 14.58 mls/hr Amino Acids/Electrolytes/Dextrose (Clinimix 5/20 % "E" (1000 Ml)) 1,000 mls @ 42 mls/hr IV .[id number] [facility] Last Admin: 02/23/17 18:04 Dose: 42 mls/hr Metoprolol Tartrate (Lopressor) 5 mg IVP Q6H [facility] Last Admin: 02/23/17 14:50 Dose: 5 mg Ondansetron HCl (Zofran Inj) 4 mg IVP Q6 PRN PRN Reason: Nausea/Vomiting Last Admin: 02/13/17 16:26 Dose: 4 mg Pantoprazole Sodium (Protonix Inj) 40 mg IVP DAILY [facility] Last Admin: 02/23/17 09:19 Dose: 40 mg - Labs Labs: 02/23/17 06:00 02/23/17 06:00 PT 13.9 Seconds (9.9-11.8) H 02/23/17 06:00 INR 1.29 (0.93-1.08) H 02/23/17 06:00 APTT 25.9 Seconds (23.7-30.8) 02/23/17 06:00 - Constitutional Appears: Non-toxic, No Acute Distress, Chronically Ill - Head Exam Head Exam: ATRAUMATIC, NORMOCEPHALIC - Eye Exam Eye Exam: EOMI, PERRL Pupil Exam: NORMAL ACCOMODATION, PERRL - ENT Exam ENT Exam: Mucous Membranes Moist, Normal External Ear Exam, TM's Normal Bilaterally - Neck Exam Neck Exam: Full ROM, Normal Inspection - Respiratory Exam Respiratory Exam: Clear to Ausculation Bilateral, NORMAL BREATHING PATTERN. absent: Rales, Rhonchi, Wheezes - Cardiovascular Exam Cardiovascular Exam: REGULAR RHYTHM, RRR, +S1, +S2 - GI/Abdominal Exam GI & Abdominal Exam: Soft, Normal Bowel Sounds. absent: Distended, Tenderness - Extremities Exam Extremities Exam: Full ROM, Normal Inspection - Neurological Exam Neurological Exam: Alert, Awake, CN II-XII Intact Additional comments: AAO x 2-3, follows commands. - Psychiatric Exam Psychiatric exam: Normal Affect, Normal Mood - Skin Skin Exam: Intact, Normal Color Assessment and Plan - Assessment and Plan (Free Text) Assessment: 51 yo female currently intubated and ventilated and poorly responsive with hypotension required pressor support with 4 medications. Was on Meropenem and Vancomycin. Supportive care. There were concerns for abdominal perforation and findings of extensive abdominal ascites and pneumoperitoneum. Severe anemia requiring PRBC transfusions. Meropenem is a reasonable choice for generalized antibiotic coverage. Continue on meropenem, flagyl, vancomycin, and diflucan for now. Supportive care. Meropenem completed 7 days of treatment. Still on Flagyl, Vancomycin, and Diflucan. Lactic acidosis improved as well as respiratory function. Extubated and on nasal cannula 3 L now. Patient hemodynamically stable. Arousable and follows commands. Receiving 2 U FFP yesterday. Patient has shown remarkable improvement over the course of her hospitalization. Extubated alert and awake now. Supportive care. Thank you for allowing me to participate in the care of the patient, we will follow with you.
[2017-02-23 21:10] LABS: BLOOD UREA NITROGEN 44 mg/dL (7-21); CALCIUM 9.1 mg/dL (8.4-10.5); CARBON DIOXIDE 40 mmol/L (21-33); CHLORIDE 99 mmol/L (98-107); GFR AFRICAN-AMERICAN > 60; GLUCOSE,RANDOM 92 mg/dL (70-110); POTASSIUM 3.2 mmol/L (3.6-5.0); SODIUM 146 mmol/L (132-148)
[2017-02-23 22:32] LABS: (1-3)-B-D GLUCAN 70 pg/mL
[2017-02-24] MEDS: HYDROmorphone 2 mg/ml ISec IVP SCH ×2 (00:28→04:09)
[2017-02-24] MEDS: metroNIDAZOLE IV 500 mg/100 ml 500 MG/100 ML BAG IVPB SCH ×4 (00:30→18:00)
[2017-02-24] MEDS: Metoprolol 1 mg/ml Inj IVP SCH ×4 (03:40→21:11)
[2017-02-24] MEDS: EnalaprilAT 1.25 mg/ml Inj IVP SCH ×4 (04:11→21:45)
[2017-02-24 07:12] LABS: BLOOD UREA NITROGEN 44 mg/dL (7-21); CALCIUM 8.9 mg/dL (8.4-10.5); CHLORIDE 98 mmol/L (98-107); GFR AFRICAN-AMERICAN > 60; GLUCOSE,RANDOM 112 mg/dL (70-110); POTASSIUM 3.1 mmol/L (3.6-5.0); SODIUM 147 mmol/L (132-148)
[2017-02-24 07:20] LABS: CARBON DIOXIDE 39 mmol/L (21-33)
[2017-02-24] MEDS: Budesonide 0.5 mg/2 ml Inhal Susp UD IH SCH ×3 (07:26→21:01)
[2017-02-24] MEDS: Arformoterol 15 mcg/2 ml Inh Sol IH SCH ×2 (07:26→21:00)
--- NOTE | 2017-02-24 08:39 | CP.PCM.PN ---
Subjective - Date & Time of Evaluation Date of Evaluation: 02/24/17 Time of Evaluation: 08:37 - Subjective Subjective: Surgery: Dr. Marti Patient s/p extubation. She is requesting juice. Per nursing no acute events overnight. Objective - Vital Signs/Intake and Output Vital Signs (last 24 hours): Temp Pulse Resp BP Pulse Ox 98.2 F 109 H 18 114/73 86 L 02/24/17 04:00 02/24/17 06:59 02/24/17 06:59 02/24/17 07:00 02/24/17 06:45 Intake and Output: 02/24/17 02/24/17 06:59 18:59 Intake Total 662 Output Total 3200 Balance -2538 - Medications Medications: Current Medications Acetylcysteine (Acetylcysteine 20%) 4 ml IH [id number] [facility] Last Admin: 02/17/17 19:48 Dose: Not Given Albuterol Sulfate (Albuterol 0.083% Inhal Amarilys (2.5 Mg/3 Ml) Ud) 2.5 mg IH [id number] PRN PRN Reason: Wheezing Last Admin: 02/22/17 07:04 Dose: 2.5 mg Arformoterol Tartrate (Brovana) 15 mcg IH [id number] [facility] Last Admin: 02/24/17 07:26 Dose: 15 mcg Budesonide (Pulmicort Respules) 0.5 mg IH [id number] [facility] Last Admin: 02/24/17 07:26 Dose: 0.5 mg Clonazepam (Klonopin) 1 mg PO BID [facility] PRN Reason: Protocol Last Admin: 02/14/17 10:00 Dose: Not Given Enalaprilat (Vasotec Iv) 1.25 mg IVP Q6H [facility] Last Admin: 02/24/17 04:11 Dose: 1.25 mg Furosemide (Lasix) 40 mg IVP Q12H [facility] Last Admin: 02/24/17 03:42 Dose: 40 mg Hydrocortisone Sodium Succinate (Solu-Cortef) 25 mg IVP DAILY [facility] Last Admin: 02/23/17 09:20 Dose: 25 mg Dobutamine HCl/Dextrose (Dobutamine/Dextrose 5% 500mg/250ml) 500 mg in 250 mls @ 6.328 mls/hr IV .Q24H PRN; Protocol; 2.5 MCG/KG/MIN PRN Reason: TITRATE PER PROTOCOL Last Admin: 02/18/17 22:37 Dose: 2.5 mcg/kg/min, 6.328 mls/hr Fentanyl Citrate (Fentanyl Citrate/Sodium Chloride 1 Mg/100 Ml) 1,000 mcg in 100 mls @ 2 mls/hr IV .Q24H PRN; Protocol; 20 MCG/HR PRN Reason: TITRATE PER MD ORDER Last Titration: 02/23/17 08:04 Dose: 50 mcg/hr, 5 mls/hr Fluconazole (Diflucan Iv 200 Mg/100 Ml Ns) 100 mls @ 100 mls/hr IVPB DAILY [facility] PRN Reason: Protocol Last Admin: 02/23/17 09:19 Dose: 100 mls/hr Metronidazole (Flagyl) 500 mg in 100 mls @ 100 mls/hr IVPB Q6 [facility] PRN Reason: Protocol Last Admin: 02/24/17 06:19 Dose: 100 mls/hr Propofol (Diprivan) 1,000 mg in 100 mls @ 2.43 mls/hr IV .Q24H PRN; Protocol; 5 MCG/KG/MIN PRN Reason: TITRATE PER MD ORDER Last Admin: 02/23/17 06:56 Dose: 30 mcg/kg/min, 14.58 mls/hr Amino Acids/Electrolytes/Dextrose (Clinimix 5/20 % "E" (1000 Ml)) 1,000 mls @ 42 mls/hr IV .[id number] [facility] Last Admin: 02/23/17 18:04 Dose: 42 mls/hr Metoprolol Tartrate (Lopressor) 5 mg IVP Q6H [facility] Last Admin: 02/24/17 03:40 Dose: 5 mg Ondansetron HCl (Zofran Inj) 4 mg IVP Q6 PRN PRN Reason: Nausea/Vomiting Last Admin: 02/13/17 16:26 Dose: 4 mg Pantoprazole Sodium (Protonix Inj) 40 mg IVP DAILY [facility] Last Admin: 02/23/17 09:19 Dose: 40 mg - Labs Labs: 02/23/17 06:00 02/24/17 06:30 PT 13.9 Seconds (9.9-11.8) H 02/23/17 06:00 INR 1.29 (0.93-1.08) H 02/23/17 06:00 APTT 25.9 Seconds (23.7-30.8) 02/23/17 06:00 - Constitutional Appears: Non-toxic, No Acute Distress, Chronically Ill - Head Exam Head Exam: ATRAUMATIC, NORMOCEPHALIC - Eye Exam Eye Exam: EOMI - ENT Exam ENT Exam: Mucous Membranes Dry - Respiratory Exam Respiratory Exam: NORMAL BREATHING PATTERN. absent: Respiratory Distress - Cardiovascular Exam Cardiovascular Exam: REGULAR RHYTHM. absent: Tachycardia - GI/Abdominal Exam GI & Abdominal Exam: Distended, Soft. absent: Guarding, Tenderness, Rebound - Neurological Exam Neurological Exam: Alert, Awake - Psychiatric Exam Psychiatric exam: Flat Affect - Skin Skin Exam: Dry, Warm Assessment and Plan - Assessment and Plan (Free Text) Assessment: 51 y/o female with septic shock and multiorgan failure, clinical status improving s/p extubation Plan: -cont to monitor respiratory status -swallow eval, pending evaluation determines diet however ok to start liquid diet then ADAT from surgical standpoint -management per ICU team -transfuse prn -will address lymph node biopsy once clinical status stable -seen and examined w/ Dr. Conchis KENDRICKlevy PGY1
--- NOTE | 2017-02-24 09:06 | CP.CCUPN ---
<EvansamirAndrésn - Last Filed: 02/24/17 14:34> CCU Subjective - Physician Review Events Since Last Encounter (Free Text): Patient attempted to pull nasal cannula and was put on BIPAP 02/24/17 09:04 Subjective (Free Text): Patient is currently extubated. She remains nonverbal and communicates using head nods. She reports that she is unable to speak. She denies any pain. 02/24/17 09:04 CCU Objective - Vital Signs / Intake & Output Vital Signs (Last 4 hours): Vital Signs Pulse Resp BP Pulse Ox 02/24/17 07:00 114/73 02/24/17 06:59 109 H 18 02/24/17 06:55 111 H 02/24/17 06:45 111 H 21 121/76 86 L 02/24/17 06:30 136/84 02/24/17 06:29 102 H 22 02/24/17 06:15 109/75 02/24/17 06:14 94 H 13 02/24/17 06:00 105/72 02/24/17 05:59 93 H 12 02/24/17 05:45 112/73 02/24/17 05:44 96 H 14 02/24/17 05:30 112/75 02/24/17 05:29 100 H 14 02/24/17 05:15 111/64 02/24/17 05:14 96 H 14 Intake and Output (Last 8hrs): Intake & Output 02/23/17 02/24/17 02/24/17 22:59 06:59 14:59 Intake Total 250 662 Output Total 3400 3200 Balance -3150 -2538 Weight 164 lb 3 oz Intake: Oral 50 TPN/PPN 462 Other 200 200 Output: Urine 3400 3200 Urethral (Uribe) 3400 3200 Other: Voiding Method Indwelling Catheter - Physical Exam Head: Positive for: Atraumatic, Normocephalic Pupils: Positive for: PERRL Extroacular Muscles: Positive for: EOMI Conjunctiva: Positive for: Normal Mouth: Positive for: Moist Mucous Membranes Neck: Positive for: Normal Range of Motion Respiratory/Chest: Negative for: Respiratory Distress, Accessory Muscle Use Cardiovascular: Positive for: Regular Rate and Rhythm, Normal S1, S2. Negative for: Murmurs Abdomen: Positive for: Normal Bowel Sounds, Other (ostomy bag in place with no surrounding erythema or signs of infection). Negative for: Tenderness, Distention, Peritoneal Signs, Rebound, Guarding Genitourinary/Pelvic Exam: Positive for: Other (Uribe catheter in place without elmira pus) Back: Positive for: Normal Inspection Upper Extremity: Positive for: Normal Inspection, NORMAL PULSES. Negative for: Cyanosis, Edema Lower Extremity: Positive for: NORMAL PULSES. Negative for: CALF TENDERNESS Neurological: Positive for: Other (Awake and alert ) Skin: Positive for: Warm, Dry, Rashes, Other (Petechia noted on extremities) Lymphatic: Positive for: Inguinal Adenopathy (bilaterally) Psychiatric: Positive for: Alert, Other - Medications Active Medications: Active Medications Generic Name Dose Route Start Last Admin Trade Name Freq PRN Reason Stop Dose Admin Acetylcysteine 4 ml 02/16/17 12:00 02/17/17 19:48 Acetylcysteine 20% IH Not Given [id number] RAOUL Albuterol Sulfate 2.5 mg 02/21/17 08:06 02/22/17 07:04 Albuterol 0.083% Inhal Amarilys (2.5 Mg/3 Ml) Ud IH 2.5 mg [id number] PRN Administration Wheezing Arformoterol Tartrate 15 mcg 02/11/17 20:00 02/24/17 07:26 Brovana IH 15 mcg [id number] [facility] Administration Budesonide 0.5 mg 02/11/17 20:00 02/24/17 07:26 Pulmicort Respules IH 0.5 mg [id number] [facility] Administration Clonazepam 1 mg 02/11/17 18:00 02/14/17 10:00 Klonopin PO Not Given BID [facility] Protocol Enalaprilat 1.25 mg 02/19/17 15:45 02/24/17 04:11 Vasotec Iv IVP 1.25 mg Q6H [facility] Administration Furosemide 40 mg 02/21/17 14:35 02/24/17 03:42 Lasix IVP 40 mg Q12H [facility] Administration Hydrocortisone Sodium Succinate 25 mg 02/23/17 08:15 02/23/17 09:20 Solu-Cortef IVP 25 mg DAILY [facility] Administration Dobutamine HCl/Dextrose 500 mg in 250 mls @ 6.328 mls/hr 02/17/17 08:56 02/18 22:37 Dobutamine/Dextrose 5% 500mg/250ml IV 2.5 mcg/kg/min .Q24H PRN 6.328 mls/hr TITRATE PER PROTOCOL Administration Protocol 2.5 MCG/KG/MIN Fentanyl Citrate 1,000 mcg in 100 mls @ 2 mls/hr 02/18/17 15:10 02/23/17 08: 04 Fentanyl Citrate/Sodium Chloride 1 Mg/100 Ml IV 50 mcg/hr .Q24H PRN 5 mls/hr TITRATE PER MD ORDER Titration Protocol 20 MCG/HR Fluconazole 100 mls @ 100 mls/hr 02/19/17 10:45 02/23/17 09:19 Diflucan Iv 200 Mg/100 Ml Ns IVPB 100 mls/hr DAILY [facility] Administration Protocol Metronidazole 500 mg in 100 mls @ 100 mls/hr 02/19/17 18:00 02/24/17 06:19 Flagyl IVPB 100 mls/hr Q6 [facility] Administration Protocol Propofol 1,000 mg in 100 mls @ 2.43 mls/hr 02/20/17 15:18 02/23/17 06:56 Diprivan IV 30 mcg/kg/min .Q24H PRN 14.58 mls/hr TITRATE PER MD ORDER Administration Protocol 5 MCG/KG/MIN Amino Acids/Electrolytes/Dextrose 1,000 mls @ 42 mls/hr 02/23/17 18:00 18:04 Clinimix 5/20 % "E" (1000 Ml) IV 42 mls/hr .[id number] [facility] Administration Potassium Chloride 20 meq in 100 mls @ 50 mls/hr 02/24/17 08:45 Potassium Chloride 20 Meq/100 Ml IVPB 02/24/17 12:44 Q2H [facility] Metoprolol Tartrate 5 mg 02/20/17 08:45 02/24/17 03:40 Lopressor IVP 5 mg Q6H [facility] Administration Ondansetron HCl 4 mg 02/11/17 13:30 02/13/17 16:26 Zofran Inj IVP 4 mg Q6 PRN Administration Nausea/Vomiting Pantoprazole Sodium 40 mg 02/14/17 10:00 02/23/17 09:19 Protonix Inj IVP 40 mg DAILY [facility] Administration - Patient Studies Lab Studies: Microbiology Studies 02/20/17 06:50 Blood Culture - Preliminary Blood NO GROWTH AFTER 4 DAYS Lab Studies 02/24/17 02/24/17 02/24/17 Range/Units 06:30 05:03 01:16 Factor V Activity (65-150) % Factor VII (60-150) % Sodium 147 (132-148) mmol/L Potassium 3.1 L (3.6-5.0) mmol/L Chloride 98 (98-107) mmol/L Carbon Dioxide 39 H (21-33) mmol/L Anion Gap 13 (10-20) BUN 44 H (7-21) mg/dL Creatinine 0.8 (0.5-1.4) mg/dL Est GFR ( Amer) > 60 Est GFR (Non-Af Amer) > 60 POC Glucose (mg/dL) 93 95 (65-110) mg/dL Random Glucose 112 H (70-110) mg/dL Calcium 8.9 (8.4-10.5) mg/dL Beta-(1,3)-D-Glucan pg/mL B-(1,3)-D-Glucan Intrp 02/23/17 02/23/17 02/23/17 Range/Units 20:58 18:21 11:59 Factor V Activity (65-150) % Factor VII (60-150) % Sodium 146 (132-148) mmol/L Potassium 3.2 L (3.6-5.0) mmol/L Chloride 99 (98-107) mmol/L Carbon Dioxide 40 H (21-33) mmol/L Anion Gap 10 (10-20) BUN 44 H (7-21) mg/dL Creatinine 0.8 (0.5-1.4) mg/dL Est GFR ( Amer) > 60 Est GFR (Non-Af Amer) > 60 POC Glucose (mg/dL) 123 H 114 H (65-110) mg/dL Random Glucose 92 (70-110) mg/dL Calcium 9.1 (8.4-10.5) mg/dL Beta-(1,3)-D-Glucan pg/mL B-(1,3)-D-Glucan Intrp 02/20/17 02/19/17 Range/Units 08:45 06:05 Factor V Activity 121 (65-150) % Factor VII 96 (60-150) % Sodium (132-148) mmol/L Potassium (3.6-5.0) mmol/L Chloride (98-107) mmol/L Carbon Dioxide (21-33) mmol/L Anion Gap (10-20) BUN (7-21) mg/dL Creatinine (0.5-1.4) mg/dL Est GFR ( Amer) Est GFR (Non-Af Amer) POC Glucose (mg/dL) (65-110) mg/dL Random Glucose (70-110) mg/dL Calcium (8.4-10.5) mg/dL Beta-(1,3)-D-Glucan 70 H pg/mL B-(1,3)-D-Glucan Intrp See note Laboratory Results - last 24 hr 02/19/17 02/20/17 02/23/17 06:05 08:45 11:59 Factor V Activity 121 Factor VII 96 Sodium Potassium Chloride Carbon Dioxide Anion Gap BUN Creatinine Est GFR ( Amer) Est GFR (Non-Af Amer) POC Glucose (mg/dL) 114 H Random Glucose Calcium Beta-(1,3)-D-Glucan 70 H B-(1,3)-D-Glucan Intrp See note 02/23/17 02/23/17 02/24/17 18:21 20:58 01:16 Factor V Activity Factor VII Sodium 146 Potassium 3.2 L Chloride 99 Carbon Dioxide 40 H Anion Gap 10 BUN 44 H Creatinine 0.8 Est GFR ( Amer) > 60 Est GFR (Non-Af Amer) > 60 POC Glucose (mg/dL) 123 H 95 Random Glucose 92 Calcium 9.1 Beta-(1,3)-D-Glucan B-(1,3)-D-Glucan Intrp 02/24/17 02/24/17 05:03 06:30 Factor V Activity Factor VII Sodium 147 Potassium 3.1 L Chloride 98 Carbon Dioxide 39 H Anion Gap 13 BUN 44 H Creatinine 0.8 Est GFR ( Amer) > 60 Est GFR (Non-Af Amer) > 60 POC Glucose (mg/dL) 93 Random Glucose 112 H Calcium 8.9 Beta-(1,3)-D-Glucan B-(1,3)-D-Glucan Intrp Fingerstick Blood Sugar Results: 94 Review of Systems - Review of Systems Systems not reviewed;Unavailable: Other All systems: reviewed and no additional remarkable complaints except Critical Care Progress Note - Ventilator Checklist Head of Bed 30 Degrees: Yes - Extremities/Vascular Does the Patient have a Central Venous Catheter?: Yes Insertion Site: Right basilic Does the Patient need a Central Venous Catheter?: Yes Does the Patient have a Uribe Catheter?: Yes Does the Patient need a Uribe Catheter?: Yes Catheter Insertion Criteria: Need for accurate measurement of output in critically ill patient - Prophylaxis GI Prophylaxis GI: PPI - Prophylaxis DVT Prophylaxis DVT: SCDs Assessment/Plan - Assessment and Plan (Free Text) Assessment: This is a 51F who [place] [facility] [place] and abdominal pain, on she had a c-scope, durring the following evening she desaturated and became hypotensive was transferred to ICU with a Hgb of 8.3, CT scan significant for free air indicating a perforated viscous. Neuro: EOMI, GCS 15 CV: Hemodynamically stable off pressors Pulm: Patient is stable on Nasal cannula, history of asthma continue brovana, budesonide GI: OG tube removed, swallow study pending patient, liquid diet per surgery pending swallow study results. : Patient is positive for ESBL and proteus on 01/14 repeat urine cx on 01/19 clean , leave uribe in place, patient currently on flagyl Endo: Potassium low, repleated ID: Patients sepsis resolved Heme: No elmira bleeding Disposition: Plan for possible D/C to tele tomorrow Will Discuss with Dr. Jessica Alcala PGY-1 <Van Lopez - Last Filed: 02/24/17 19:01> CCU Objective - Vital Signs / Intake & Output Vital Signs (Last 4 hours): Vital Signs Pulse Resp BP Pulse Ox 02/24/17 17:31 71 24 92/66 L 93 L 02/24/17 17:15 67 23 95/56 L 96 02/24/17 17:01 72 22 94/50 L 93 L 02/24/17 17:00 63 23 93 L 02/24/17 16:45 67 26 H 88/38 L 92 L 02/24/17 16:42 73 25 H 102/42 L 92 L 02/24/17 16:30 78 21 89/31 L 90 L 02/24/17 16:15 63 22 84/56 L 92 L 02/24/17 16:00 64 26 H 92/56 L 93 L 02/24/17 15:45 107 H 24 104/70 91 L 02/24/17 15:30 109 H 20 99/62 L 92 L 02/24/17 15:15 98 H 19 105/81 94 L 02/24/17 15:00 102 H 26 H 92/61 L 95 02/24/17 14:45 100 H 22 95/68 L 98 02/24/17 14:30 100 H 26 H 85/61 L 95 02/24/17 14:15 97 H 20 81/52 L 97 02/24/17 14:08 101 H 25 H 83/46 L 99 02/24/17 14:06 100 H 25 H 91/61 L 98 02/24/17 14:05 99 H 27 H 89/60 L 97 02/24/17 14:04 101 H 24 83/59 L 96 02/24/17 14:01 99/27 L 02/24/17 14:00 101 H 20 95 Intake and Output (Last 8hrs): Intake & Output 02/24/17 02/24/17 02/24/17 06:59 14:59 22:59 Intake Total 662 Output Total 3200 Balance -2538 Weight 164 lb 3 oz Intake: TPN/PPN 462 Other 200 Output: Urine 3200 Urethral (Uribe) 3200 Other: Voiding Method Indwelling Catheter - Medications Active Medications: Active Medications Generic Name Dose Route Start Last Admin Trade Name Freq PRN Reason Stop Dose Admin Acetylcysteine 4 ml 02/16/17 12:00 02/17/17 19:48 Acetylcysteine 20% IH Not Given [id number] RAOUL Albuterol Sulfate 2.5 mg 02/21/17 08:06 02/22/17 07:04 Albuterol 0.083% Inhal Amarilys (2.5 Mg/3 Ml) Ud IH 2.5 mg [id number] PRN Administration Wheezing Arformoterol Tartrate 15 mcg 02/11/17 20:00 02/24/17 07:26 Brovana IH 15 mcg [id number] RAOUL Administration Budesonide 0.5 mg 02/11/17 20:00 02/24/17 07:26 Pulmicort Respules IH 0.5 mg [id number] RAOUL Administration Clonazepam 1 mg 02/11/17 18:00 02/14/17 10:00 Klonopin PO Not Given BID [facility] Protocol Enalaprilat 1.25 mg 02/19/17 15:45 02/24/17 09:45 Vasotec Iv IVP 1.25 mg Q6H [facility] Administration Furosemide 40 mg 02/21/17 14:35 02/24/17 14:01 Lasix IVP 40 mg Q12H RAOUL Administration Hydrocortisone Sodium Succinate 25 mg 02/23/17 08:15 02/24/17 12:44 Solu-Cortef IVP 25 mg DAILY [facility]OU[facility] Administration Hydromorphone HCl 2 mg 02/24/17 12:45 Dilaudid IVP Q4H PRN Pain, severe (8-10) Dobutamine HCl/Dextrose 500 mg in 250 mls @ 6.328 mls/hr 02/17/17 08:56 02/18 22:37 Dobutamine/Dextrose 5% 500mg/250ml IV 2.5 mcg/kg/min .Q24H PRN 6.328 mls/hr TITRATE PER PROTOCOL Administration Protocol 2.5 MCG/KG/MIN Fentanyl Citrate 1,000 mcg in 100 mls @ 2 mls/hr 02/18/17 15:10 02/23/17 08: 04 Fentanyl Citrate/Sodium Chloride 1 Mg/100 Ml IV 50 mcg/hr .Q24H PRN 5 mls/hr TITRATE PER MD ORDER Titration Protocol 20 MCG/HR Fluconazole 100 mls @ 100 mls/hr 02/19/17 10:45 02/24/17 12:54 Diflucan Iv 200 Mg/100 Ml Ns IVPB 100 mls/hr DAILY RAOUL Administration Protocol Metronidazole 500 mg in 100 mls @ 100 mls/hr 02/19/17 18:00 02/24/17 12:54 Flagyl IVPB 100 mls/hr Q6 RAOUL Administration Protocol Propofol 1,000 mg in 100 mls @ 2.43 mls/hr 02/20/17 15:18 02/23/17 06:56 Diprivan IV 30 mcg/kg/min .Q24H PRN 14.58 mls/hr TITRATE PER MD ORDER Administration Protocol 5 MCG/KG/MIN Amino Acids/Electrolytes/Dextrose 1,000 mls @ 42 mls/hr 02/23/17 18:00 18:04 Clinimix 5/20 % "E" (1000 Ml) IV 42 mls/hr .[id number] RAOUL Administration Metoprolol Tartrate 5 mg 02/20/17 08:45 02/24/17 12:56 Lopressor IVP 5 mg Q6H RAOUL Administration Ondansetron HCl 4 mg 02/11/17 13:30 02/13/17 16:26 Zofran Inj IVP 4 mg Q6 PRN Administration Nausea/Vomiting Pantoprazole Sodium 40 mg 02/14/17 10:00 02/24/17 10:00 Protonix Inj IVP 40 mg DAILY RAOUL Administration - Patient Studies Lab Studies: Microbiology Studies 02/23/17 15:05 Urine Culture - Final Urine,Uribe No Growth (<1,000 CFU/ML) 02/20/17 06:50 Blood Culture - Preliminary Blood NO GROWTH AFTER 4 DAYS Lab Studies 02/24/17 02/24/17 02/24/17 Range/Units 09:10 06:30 05:03 WBC 18.0 H (4.5-11.0) 10^3/ul RBC 3.93 (3.5-6.1) 10^6/uL Hgb 11.2 L (12.0-16.0) gm/dL Hct 35.4 L (36.0-48.0) % MCV 90.1 (80.0-105.0) fL MCH 28.5 (25.0-35.0) pg MCHC 31.6 (31.0-37.0) g/dl RDW 17.6 H (11.5-14.5) % Plt Count 29 L* (120.0-450.0) 10^3/uL Gran % 76.3 H (50.0-68.0) % Lymph % (Auto) 14.3 L (22.0-35.0) % [place] % (Auto) 2.1 (1.0-6.0) % Eos % (Auto) 3.5 (1.5-5.0) % Baso % (Auto) 3.8 H (0.0-3.0) % Gran # 13.72 H (1.4-6.5) Lymph # 2.6 (1.2-3.4) [place] # 0.4 (0.1-0.6) Eos # 0.6 (0.0-0.7) Baso # 0.69 (0.0-2.0) K/mm3 Factor V Activity (65-150) % Factor VII (60-150) % Sodium 147 (132-148) mmol/L Potassium 3.1 L (3.6-5.0) mmol/L Chloride 98 (98-107) mmol/L Carbon Dioxide 39 H (21-33) mmol/L Anion Gap 13 (10-20) BUN 44 H (7-21) mg/dL Creatinine 0.8 (0.5-1.4) mg/dL Est GFR ( Amer) > 60 Est GFR (Non-Af Amer) > 60 POC Glucose (mg/dL) 93 (65-110) mg/dL Random Glucose 112 H (70-110) mg/dL Calcium 8.9 (8.4-10.5) mg/dL Beta-(1,3)-D-Glucan pg/mL B-(1,3)-D-Glucan Intrp 02/24/17 02/23/17 02/23/17 Range/Units 01:16 20:58 18:21 WBC (4.5-11.0) 10^3/ul RBC (3.5-6.1) 10^6/uL Hgb (12.0-16.0) gm/dL Hct (36.0-48.0) % MCV (80.0-105.0) fL MCH (25.0-35.0) pg MCHC (31.0-37.0) g/dl RDW (11.5-14.5) % Plt Count (120.0-450.0) 10^3/uL Gran % (50.0-68.0) % Lymph % (Auto) (22.0-35.0) % [place] % (Auto) (1.0-6.0) % Eos % (Auto) (1.5-5.0) % Baso % (Auto) (0.0-3.0) % Gran # (1.4-6.5) Lymph # (1.2-3.4) [place] # (0.1-0.6) Eos # (0.0-0.7) Baso # (0.0-2.0) K/mm3 Factor V Activity (65-150) % Factor VII (60-150) % Sodium 146 (132-148) mmol/L Potassium 3.2 L (3.6-5.0) mmol/L Chloride 99 (98-107) mmol/L Carbon Dioxide 40 H (21-33) mmol/L Anion Gap 10 (10-20) BUN 44 H (7-21) mg/dL Creatinine 0.8 (0.5-1.4) mg/dL Est GFR ( Amer) > 60 Est GFR (Non-Af Amer) > 60 POC Glucose (mg/dL) 95 123 H (65-110) mg/dL Random Glucose 92 (70-110) mg/dL Calcium 9.1 (8.4-10.5) mg/dL Beta-(1,3)-D-Glucan pg/mL B-(1,3)-D-Glucan Intrp 02/20/17 02/19/17 Range/Units 08:45 06:05 WBC (4.5-11.0) 10^3/ul RBC (3.5-6.1) 10^6/uL Hgb (12.0-16.0) gm/dL Hct (36.0-48.0) % MCV (80.0-105.0) fL MCH (25.0-35.0) pg MCHC (31.0-37.0) g/dl RDW (11.5-14.5) % Plt Count (120.0-450.0) 10^3/uL Gran % (50.0-68.0) % Lymph % (Auto) (22.0-35.0) % [place] % (Auto) (1.0-6.0) % Eos % (Auto) (1.5-5.0) % Baso % (Auto) (0.0-3.0) % Gran # (1.4-6.5) Lymph # (1.2-3.4) [place] # (0.1-0.6) Eos # (0.0-0.7) Baso # (0.0-2.0) K/mm3 Factor V Activity 121 (65-150) % Factor VII 96 (60-150) % Sodium (132-148) mmol/L Potassium (3.6-5.0) mmol/L Chloride (98-107) mmol/L Carbon Dioxide (21-33) mmol/L Anion Gap (10-20) BUN (7-21) mg/dL Creatinine (0.5-1.4) mg/dL Est GFR ( Amer) Est GFR (Non-Af Amer) POC Glucose (mg/dL) (65-110) mg/dL Random Glucose (70-110) mg/dL Calcium (8.4-10.5) mg/dL Beta-(1,3)-D-Glucan 70 H pg/mL B-(1,3)-D-Glucan Intrp See note Laboratory Results - last 24 hr 02/19/17 02/20/17 02/23/17 06:05 08:45 18:21 WBC RBC Hgb Hct MCV MCH MCHC RDW Plt Count Gran % Lymph % (Auto) [place] % (Auto) Eos % (Auto) Baso % (Auto) Gran # Lymph # [place] # Eos # Baso # Factor V Activity 121 Factor VII 96 Sodium Potassium Chloride Carbon Dioxide Anion Gap BUN Creatinine Est GFR ( Amer) Est GFR (Non-Af Amer) POC Glucose (mg/dL) 123 H Random Glucose Calcium Beta-(1,3)-D-Glucan 70 H B-(1,3)-D-Glucan Intrp See note 02/23/17 02/24/17 02/24/17 20:58 01:16 05:03 WBC RBC Hgb Hct MCV MCH MCHC RDW Plt Count Gran % Lymph % (Auto) [place] % (Auto) Eos % (Auto) Baso % (Auto) Gran # Lymph # [place] # Eos # Baso # Factor V Activity Factor VII Sodium 146 Potassium 3.2 L Chloride 99 Carbon Dioxide 40 H Anion Gap 10 BUN 44 H Creatinine 0.8 Est GFR ( Amer) > 60 Est GFR (Non-Af Amer) > 60 POC Glucose (mg/dL) 95 93 Random Glucose 92 Calcium 9.1 Beta-(1,3)-D-Glucan B-(1,3)-D-Glucan Intrp 02/24/17 02/24/17 06:30 09:10 WBC 18.0 H RBC 3.93 Hgb 11.2 L Hct 35.4 L MCV 90.1 MCH 28.5 MCHC 31.6 RDW 17.6 H Plt Count 29 L* Gran % 76.3 H Lymph % (Auto) 14.3 L [place] % (Auto) 2.1 Eos % (Auto) 3.5 Baso % (Auto) 3.8 H Gran # 13.72 H Lymph # 2.6 [place] # 0.4 Eos # 0.6 Baso # 0.69 Factor V Activity Factor VII Sodium 147 Potassium 3.1 L Chloride 98 Carbon Dioxide 39 H Anion Gap 13 BUN 44 H Creatinine 0.8 Est GFR ( Amer) > 60 Est GFR (Non-Af Amer) > 60 POC Glucose (mg/dL) Random Glucose 112 H Calcium 8.9 Beta-(1,3)-D-Glucan B-(1,3)-D-Glucan Intrp Addendum Addendum: 02/24/17 17:59 patient was seen, examined and discussed at bedside with Dr. Alcala. His note reflects my exam, assessment and plan. Meds/Labs/ONE reviewed. 51 yo female recovering from septic shock with MODS. Extubated yesterday. Tolerated BPAP overnight. OOB to chair on high flow. Poorly able to control airways and thats a major concern. She is DNR/DNI now and palliative care service is appreciated. We will try as much as we can with nasotracheal suction , chest PT, mobilization, BPAP. abx, conservative fluid management, pain control. afterload reduction with enalaprilat. I would repeat Echo to see if EF improved after resolution of septic shock ccm time 40 min 02/24/17 18:59
[2017-02-24 09:23] LABS: BASO # 0.69 K/mm3 (0.0-2.0); BASO % 3.8 % (0.0-3.0); EOS # 0.6 (0.0-0.7); EOS % 3.5 % (1.5-5.0); GRAN # 13.72 (1.4-6.5); GRAN % 76.3 % (50.0-68.0); HEMATOCRIT 35.4 % (36.0-48.0); LYMPH # 2.6 (1.2-3.4); LYMPH % 14.3 % (22.0-35.0); MEAN CELL VOLUME 90.1 fL (80.0-105.0); MEAN CORPUSCULAR HEMOGLOBIN 28.5 pg (25.0-35.0); MEAN CORPUSCULAR HGB CONC 31.6 g/dl (31.0-37.0); MONO # 0.4 (0.1-0.6); MONO % 2.1 % (1.0-6.0); RED CELL DISTRIBUTION WIDTH 17.6 % (11.5-14.5)
[2017-02-24 09:26] LABS: ADD MANUAL DIFF? NO; PLATELET COUNT 29 10^3/uL (120.0-450.0)
--- NOTE | 2017-02-24 11:08 | RAD ---
HISTORY: pneumonia COMPARISON: 02/23/2017 FINDINGS: The right PICC line terminates in the right atrium. LUNGS: There is interval opacification of the right upper lobe. There are reticular nodular opacities in the visualized lungs. PLEURA: Suspect small pleural effusions. No pneumothorax apparent. CARDIOVASCULAR: Normal. OSSEOUS STRUCTURES: No significant abnormalities. VISUALIZED UPPER ABDOMEN: Normal. OTHER FINDINGS: None. IMPRESSION: 1. Findings are concerning for right upper lobe pneumonia/ atelectasis. 2. Diffuse reticular nodular opacities in the lung could represent interstitial pneumonitis edema. Continued follow-up is advised.
[2017-02-24] MEDS ORDERED: HYDROmorphone 2 mg/ml ISec IVP PRN (12:45)
[2017-02-24] MEDS: Fluconazole IV 200mg/100 ml NS 100 ML IVPB SCH (12:54)
--- NOTE | 2017-02-24 14:40 | PN ---
DATE: 02/24/2017 SUBJECTIVE: The patient is currently seen in ICU bed 4. She has been transferred to telemetry. The re are no beds available. She is sitting in a chair. She continues on hyperalimentation. She has r eceived extra potassium supplements today for a potassium level of 3.1. MEDICATIONS: Medication list reviewed. The patient is currently on acetylcysteine, albuterol, Brova na, hyperalimentation, Diflucan, p.r.n. Dilaudid, Diprivan, Dobutrex on hold, fentanyl, Flagyl, IV La six q. 12, Lopressor, Protonix, Pulmicort, Solu-Cortef, IV Vasotec p.r.n. and IV Zofran. OBJECTIVE: INTAKE AND OUTPUT: Intake 1008, output 6600. VITAL SIGNS: Blood pressure 112/74, pulse 111, temperature 98.2, respiratory rate of 32. Pulse ox 9 8%. HEENT: Eyes are closed. The patient is extubated. She is on high flow oxygen. She is poorly respo nsive. NECK: No neck vein distention. CHEST: Scattered rhonchi. CARDIOVASCULAR: S1, S2 normal. No murmurs, rubs or gallops noted. ABDOMEN: Soft. Mild distention. Bowel sounds are normal. Left-sided colostomy. EXTREMITIES: Show 1+ lower extremity edema with her feet down. She has mild cyanosis of her toes bi laterally, right greater than left. LABORATORY DATA AND IMAGING: CBC today, white blood cell count 18.0 with a hemoglobin of 11.2 with a platelet count of 29,000. Blood chemistries today, sodium 147, potassium 3.1, chloride 98 with a CO 2 of 39. BUN is 44 with a creatinine of 0.8. Glucose is 112. Calcium is 8.9. Past phosphorus 3.2, past magnesium level 1.3. Microbiology: Sputum is positive for yeast. Urine culture is positive f or Escherichia coli and Proteus. Blood cultures positive for Enterococcus faecalis. ASSESSMENT: 1. Mild prerenal azotemia in the setting of sepsis, hypotension, urinary tract infection, septicemia . BUN and creatinine remain acceptable at 44 and 0.8. 2. Hypokalemia, hypomagnesemia. The patient will receive appropriate magnesium supplements and we c an increase the magnesium and potassium content of her hyperal on an as needed basis. 3. History of Crohn's disease, history of adenocarcinoma of the colon, history of intra-abdominal se psis, status post laparotomy 11/2016 with hemicolectomy and left-sided colostomy, currently stable. 4. Past history of gastrointestinal bleed with anemia. Hemoglobin remains stable at 11.2. She is s tatus post a total of 8 units of packed red blood cells. 5. History of severe thrombocytopenia. The patient is status post platelet transfusion. 6. History of mild right-sided hydronephrosis secondary to retroperitoneal and bilateral inguinal ly mphadenopathy secondary to adenocarcinoma of the colon. 7. The patient is a DNR. PLAN: 1. The patient has been transferred out of the ICU. She is waiting transfer to telemetry. 2. Continue IV antibiotic therapy and antifungal therapy. 3. Supplement potassium and magnesium. 4. Transfuse platelets on a p.r.n. basis. 5. Continue Lasix therapy for her lower extremity edema. Cautioned not to over diurese patient. Arie Rodriguez MD cc: [id number] TT: 02/24/2017 14:39:33 Confirmation # [id number] Dictation # [id number] denise
--- NOTE | 2017-02-24 15:12 | CP.PCM.PN ---
Subjective - Date & Time of Evaluation Date of Evaluation: 02/24/17 Time of Evaluation: 15:00 - Subjective Subjective: Alert, non verbal,unable to follow command Objective - Vital Signs/Intake and Output Vital Signs (last 24 hours): Temp Pulse Resp BP Pulse Ox 98.2 F 111 H 40 H 99/27 L 98 02/24/17 04:00 02/24/17 12:56 02/24/17 12:00 02/24/17 14:01 02/24/17 12:00 Intake and Output: 02/24/17 02/24/17 06:59 18:59 Intake Total 662 Output Total 3200 Balance -2538 - Medications Medications: Current Medications Acetylcysteine (Acetylcysteine 20%) 4 ml IH [id number] [facility] Last Admin: 02/17/17 19:48 Dose: Not Given Albuterol Sulfate (Albuterol 0.083% Inhal Amarilys (2.5 Mg/3 Ml) Ud) 2.5 mg IH [id number] PRN PRN Reason: Wheezing Last Admin: 02/22/17 07:04 Dose: 2.5 mg Arformoterol Tartrate (Brovana) 15 mcg IH [id number] [facility] Last Admin: 02/24/17 07:26 Dose: 15 mcg Budesonide (Pulmicort Respules) 0.5 mg IH [id number] [facility] Last Admin: 02/24/17 07:26 Dose: 0.5 mg Clonazepam (Klonopin) 1 mg PO BID [facility] PRN Reason: Protocol Last Admin: 02/14/17 10:00 Dose: Not Given Enalaprilat (Vasotec Iv) 1.25 mg IVP Q6H [facility] Last Admin: 02/24/17 09:45 Dose: 1.25 mg Furosemide (Lasix) 40 mg IVP Q12H [facility] Last Admin: 02/24/17 14:01 Dose: 40 mg Hydrocortisone Sodium Succinate (Solu-Cortef) 25 mg IVP DAILY [facility] Last Admin: 02/24/17 12:44 Dose: 25 mg Hydromorphone HCl (Dilaudid) 2 mg IVP Q4H PRN PRN Reason: Pain, severe (8-10) Dobutamine HCl/Dextrose (Dobutamine/Dextrose 5% 500mg/250ml) 500 mg in 250 mls @ 6.328 mls/hr IV .Q24H PRN; Protocol; 2.5 MCG/KG/MIN PRN Reason: TITRATE PER PROTOCOL Last Admin: 02/18/17 22:37 Dose: 2.5 mcg/kg/min, 6.328 mls/hr Fentanyl Citrate (Fentanyl Citrate/Sodium Chloride 1 Mg/100 Ml) 1,000 mcg in 100 mls @ 2 mls/hr IV .Q24H PRN; Protocol; 20 MCG/HR PRN Reason: TITRATE PER MD ORDER Last Titration: 02/23/17 08:04 Dose: 50 mcg/hr, 5 mls/hr Fluconazole (Diflucan Iv 200 Mg/100 Ml Ns) 100 mls @ 100 mls/hr IVPB DAILY [facility] PRN Reason: Protocol Last Admin: 02/24/17 12:54 Dose: 100 mls/hr Metronidazole (Flagyl) 500 mg in 100 mls @ 100 mls/hr IVPB Q6 [facility] PRN Reason: Protocol Last Admin: 02/24/17 12:54 Dose: 100 mls/hr Propofol (Diprivan) 1,000 mg in 100 mls @ 2.43 mls/hr IV .Q24H PRN; Protocol; 5 MCG/KG/MIN PRN Reason: TITRATE PER MD ORDER Last Admin: 02/23/17 06:56 Dose: 30 mcg/kg/min, 14.58 mls/hr Amino Acids/Electrolytes/Dextrose (Clinimix 5/20 % "E" (1000 Ml)) 1,000 mls @ 42 mls/hr IV .[id number] [facility] Last Admin: 02/23/17 18:04 Dose: 42 mls/hr Metoprolol Tartrate (Lopressor) 5 mg IVP Q6H [facility] Last Admin: 02/24/17 12:56 Dose: 5 mg Ondansetron HCl (Zofran Inj) 4 mg IVP Q6 PRN PRN Reason: Nausea/Vomiting Last Admin: 02/13/17 16:26 Dose: 4 mg Pantoprazole Sodium (Protonix Inj) 40 mg IVP DAILY [facility] Last Admin: 02/24/17 10:00 Dose: 40 mg - Labs Labs: 02/24/17 09:10 02/24/17 06:30 PT 13.9 Seconds (9.9-11.8) H 02/23/17 06:00 INR 1.29 (0.93-1.08) H 02/23/17 06:00 APTT 25.9 Seconds (23.7-30.8) 02/23/17 06:00 - Constitutional Appears: No Acute Distress, Chronically Ill - Eye Exam Eye Exam: Normal appearance, PERRL - ENT Exam ENT Exam: Mucous Membranes Moist - Respiratory Exam Respiratory Exam: Decreased Breath Sounds - Cardiovascular Exam Cardiovascular Exam: REGULAR RHYTHM, +S1, +S2 - GI/Abdominal Exam GI & Abdominal Exam: Hyperactive Bowel Sounds, Normal Bowel Sounds - Extremities Exam Extremities Exam: Normal Capillary Refill, Pedal Edema - Neurological Exam Neurological Exam: Altered - Skin Skin Exam: Dry, Pallor Assessment and Plan - Assessment and Plan (Free Text) Assessment: 51 year old female admitted with abdominal perforation, septic shock, resolving multi organ failure, respiratory failure s/p intubation. History of colon cancer , Crohn's disease ,asthma, bipolar disorder, poly substance abuse. Patient's mother and ex boyfriend at bedside. Mother emotional keeps saying the patient needs to go to [facility]. I had a very lengthy discussion with mother about the patient's medical status and realistic goals of care. I explained that patient was to ill to receive treatment for her cancer at this time. 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 Explained that when and if patient 's medical situation improved, that treatment for her cancer would then be appropriate. Explained that daughter had sustained brain injury due to anoxia and multi- organ failure and she is incapable of making decisions. Resuscitation status discussed with mother, who affirms she wants patient to be DNR/DNI. POLST form completed. Mother also met with KORI Galvin who explained the necessity of applying for Medicaid. Again, reinforced the importance of patient going to LTAC for ongoing medical care. Time sent in discussion with mother regarding goals of care and advance care planning, 45 minutes Plan: Goals of care. Advance care planning. POLST: DNR/DNI.
--- NOTE | 2017-02-24 15:20 | CP.PCM.PN ---
<Melchor Pringle - Last Filed: 02/24/17 15:17> Subjective - Date & Time of Evaluation Date of Evaluation: 02/24/17 Time of Evaluation: 10:35 - Subjective Subjective: Patient seen at bedside. She is on high flow oxygen. She is hemodynamically stable. Sitting up in the chair today. Patient opens eyes to verbal commands. She is not currently verbalizing. Patient's family is discussing palliative measures. Objective - Vital Signs/Intake and Output Vital Signs (last 24 hours): Temp Pulse Resp BP Pulse Ox 98.2 F 111 H 40 H 99/27 L 98 02/24/17 04:00 02/24/17 12:56 02/24/17 12:00 02/24/17 14:01 02/24/17 12:00 Intake and Output: 02/24/17 02/24/17 06:59 18:59 Intake Total 662 Output Total 3200 Balance -2538 - Medications Medications: Current Medications Acetylcysteine (Acetylcysteine 20%) 4 ml IH [id number] [facility] Last Admin: 02/17/17 19:48 Dose: Not Given Albuterol Sulfate (Albuterol 0.083% Inhal Amarilys (2.5 Mg/3 Ml) Ud) 2.5 mg IH [id number] PRN PRN Reason: Wheezing Last Admin: 02/22/17 07:04 Dose: 2.5 mg Arformoterol Tartrate (Brovana) 15 mcg IH [id number] [facility] Last Admin: 02/24/17 07:26 Dose: 15 mcg Budesonide (Pulmicort Respules) 0.5 mg IH [id number] [facility] Last Admin: 02/24/17 07:26 Dose: 0.5 mg Clonazepam (Klonopin) 1 mg PO BID [facility] PRN Reason: Protocol Last Admin: 02/14/17 10:00 Dose: Not Given Enalaprilat (Vasotec Iv) 1.25 mg IVP Q6H [facility] Last Admin: 02/24/17 09:45 Dose: 1.25 mg Furosemide (Lasix) 40 mg IVP Q12H [facility] Last Admin: 02/24/17 14:01 Dose: 40 mg Hydrocortisone Sodium Succinate (Solu-Cortef) 25 mg IVP DAILY [facility] Last Admin: 02/24/17 12:44 Dose: 25 mg Hydromorphone HCl (Dilaudid) 2 mg IVP Q4H PRN PRN Reason: Pain, severe (8-10) Dobutamine HCl/Dextrose (Dobutamine/Dextrose 5% 500mg/250ml) 500 mg in 250 mls @ 6.328 mls/hr IV .Q24H PRN; Protocol; 2.5 MCG/KG/MIN PRN Reason: TITRATE PER PROTOCOL Last Admin: 02/18/17 22:37 Dose: 2.5 mcg/kg/min, 6.328 mls/hr Fentanyl Citrate (Fentanyl Citrate/Sodium Chloride 1 Mg/100 Ml) 1,000 mcg in 100 mls @ 2 mls/hr IV .Q24H PRN; Protocol; 20 MCG/HR PRN Reason: TITRATE PER MD ORDER Last Titration: 02/23/17 08:04 Dose: 50 mcg/hr, 5 mls/hr Fluconazole (Diflucan Iv 200 Mg/100 Ml Ns) 100 mls @ 100 mls/hr IVPB DAILY [facility] PRN Reason: Protocol Last Admin: 02/24/17 12:54 Dose: 100 mls/hr Metronidazole (Flagyl) 500 mg in 100 mls @ 100 mls/hr IVPB Q6 [facility] PRN Reason: Protocol Last Admin: 02/24/17 12:54 Dose: 100 mls/hr Propofol (Diprivan) 1,000 mg in 100 mls @ 2.43 mls/hr IV .Q24H PRN; Protocol; 5 MCG/KG/MIN PRN Reason: TITRATE PER MD ORDER Last Admin: 02/23/17 06:56 Dose: 30 mcg/kg/min, 14.58 mls/hr Amino Acids/Electrolytes/Dextrose (Clinimix 5/20 % "E" (1000 Ml)) 1,000 mls @ 42 mls/hr IV .[id number] [facility] Last Admin: 02/23/17 18:04 Dose: 42 mls/hr Metoprolol Tartrate (Lopressor) 5 mg IVP Q6H [facility] Last Admin: 02/24/17 12:56 Dose: 5 mg Ondansetron HCl (Zofran Inj) 4 mg IVP Q6 PRN PRN Reason: Nausea/Vomiting Last Admin: 02/13/17 16:26 Dose: 4 mg Pantoprazole Sodium (Protonix Inj) 40 mg IVP DAILY [facility] Last Admin: 02/24/17 10:00 Dose: 40 mg - Labs Labs: 02/24/17 09:10 02/24/17 06:30 PT 13.9 Seconds (9.9-11.8) H 02/23/17 06:00 INR 1.29 (0.93-1.08) H 02/23/17 06:00 APTT 25.9 Seconds (23.7-30.8) 02/23/17 06:00 - Constitutional Appears: Non-toxic, No Acute Distress - Head Exam Head Exam: ATRAUMATIC - Eye Exam Eye Exam: EOMI, PERRL - ENT Exam ENT Exam: Mucous Membranes Dry - Neck Exam Neck Exam: Full ROM - Respiratory Exam Respiratory Exam: absent: Accessory Muscle Use, Rales, NORMAL BREATHING PATTERN - Cardiovascular Exam Cardiovascular Exam: Tachycardia, +S1, +S2 - GI/Abdominal Exam GI & Abdominal Exam: Distended, Soft, Tenderness. absent: Firm - Extremities Exam Extremities Exam: Pedal Edema. absent: Calf Tenderness - Neurological Exam Neurological Exam: Alert, Awake, Oriented x3 - Psychiatric Exam Psychiatric exam: Normal Affect, Normal Mood - Skin Skin Exam: Dry, Warm Assessment and Plan - Assessment and Plan (Free Text) Assessment: 51 year old female with past medical history of Crohns disease, asthma, bipolar disorder, polysubstance abuse and recent diagnoses of adenocarcinoma of the colon. Patient is in the ICU recovering from Septic shock 2/2 to abdominal perforation complicated by ESBL urosepsis, concern for acalculous cholecystitis and thrombocytopenia. Septic shock is resolved. Renal function is improving as well as shock liver. Patient is hemodynamically stable. She is on high flow oxygen. Mental status is improving. Septic shock 2/2 abdominal perforation complicated by ESBL urosepsis now resolved - manage per CCU team - continue abx per ICU, ID - Palliative care is following. Discussion will need to be had with family regarding ultimate care for the patient. Blue/dusky discoloration to right fingers concerning for thrombus - doppler was done. no evidence of thrombus acute kidney injury 2/2 septic shock, multi-organ dysfunction syndrome - renal function is improving - avoiding nephrotoxic drugs when possible - maintaining MAP >65 transaminitis 2/2 shock liver in setting of septic shock - liver enzymes trending down - continue to maintain MAP >65 - monitor liver enzymes daily thrombocytopenia 2/2 DIC associated with sepsis -transfused 2u platelets with modest improvement - daily CBC - SCD's bacteremia - E. faecalis in blood culture - continue abx per ID, ICU team UTI - Proteus mirabilis, ESBL in urine - continue abx as above Adenocarcinoma of colon: - heme/onc following - Ct of chest shows interstitial infiltrates with extensive bibasilar consolidations. Extensive B/L and medistinal LAD. <Vadim STARR,Gerardo - Last Filed: 02/25/17 09:10> Objective - Vital Signs/Intake and Output Vital Signs (last 24 hours): Temp Pulse Resp BP Pulse Ox 98 F 71 24 93/60 L 92 L 02/25/17 04:00 02/25/17 08:00 02/25/17 08:00 02/25/17 08:00 02/25/17 08:00 Intake and Output: 02/25/17 02/25/17 06:59 18:59 Intake Total 1456 Output Total 1900 Balance -444 - Medications Medications: Current Medications Albuterol Sulfate (Albuterol 0.083% Inhal Amarilys (2.5 Mg/3 Ml) Ud) 2.5 mg IH [id number] PRN PRN Reason: Wheezing Last Admin: 02/22/17 07:04 Dose: 2.5 mg Arformoterol Tartrate (Brovana) 15 mcg IH [id number] [facility] Last Admin: 02/25/17 07:20 Dose: 15 mcg Budesonide (Pulmicort Respules) 0.5 mg IH [id number] [facility] Last Admin: 02/25/17 07:20 Dose: 0.5 mg Clonazepam (Klonopin) 1 mg PO BID [facility] PRN Reason: Protocol Last Admin: 02/14/17 10:00 Dose: Not Given Enalaprilat (Vasotec Iv) 1.25 mg IVP Q6H [facility] Last Admin: 02/25/17 05:27 Dose: Not Given Furosemide (Lasix) 40 mg IVP DAILY [facility] Hydrocortisone Sodium Succinate (Solu-Cortef) 25 mg IVP DAILY [facility] Last Admin: 02/24/17 12:44 Dose: 25 mg Hydromorphone HCl (Dilaudid) 2 mg IVP Q4H PRN PRN Reason: Pain, severe (8-10) Fluconazole (Diflucan Iv 200 Mg/100 Ml Ns) 100 mls @ 100 mls/hr IVPB DAILY [facility] PRN Reason: Protocol Last Admin: 02/24/17 12:54 Dose: 100 mls/hr Metronidazole (Flagyl) 500 mg in 100 mls @ 100 mls/hr IVPB Q6 [facility] PRN Reason: Protocol Last Admin: 02/25/17 05:27 Dose: 100 mls/hr Amino Acids/Electrolytes/Dextrose (Clinimix 5/20 % "E" (1000 Ml)) 1,000 mls @ 42 mls/hr IV .[id number] [facility] Last Admin: 02/24/17 18:37 Dose: 42 mls/hr Potassium Chloride (Potassium Chloride 20 Meq/100 Ml) 20 meq in 100 mls @ 50 mls/hr IVPB ONCE ONE Stop: 02/25/17 09:31 Last Admin: 02/25/17 08:14 Dose: 50 mls/hr Metoprolol Tartrate (Lopressor) 5 mg IVP Q6H [facility] Last Admin: 02/25/17 03:27 Dose: Not Given Ondansetron HCl (Zofran Inj) 4 mg IVP Q6 PRN PRN Reason: Nausea/Vomiting Last Admin: 02/13/17 16:26 Dose: 4 mg Pantoprazole Sodium (Protonix Inj) 40 mg IVP DAILY [facility] Last Admin: 02/24/17 10:00 Dose: 40 mg - Labs Labs: 02/25/17 05:50 02/25/17 05:50 PT 13.9 Seconds (9.9-11.8) H 02/23/17 06:00 INR 1.29 (0.93-1.08) H 02/23/17 06:00 APTT 25.9 Seconds (23.7-30.8) 02/23/17 06:00 Attending/Attestation - Attestation I have personally seen and examined this patient.: Yes I have fully participated in the care of the patient.: Yes I have reviewed all pertinent clinical information, including history, physical exam and plan: Yes Notes (Text): 02/25/17 09:04 Patient was seen and examined with medical delivery driver .Agreed with resident assessment and plan. 51 year old female with PMH of Adenocarcinoma of Colon, Crohns disease, asthma , bipolar disorder, drug abuse and non compliance.Patient went to Respiratory failure and septic shock after Colonoscopy, also required multiple PRBC transfusion, Patient is in the ICU recovering from Septic shock 2/2 to abdominal perforation complicated by ESBL urosepsis, concern for acalculous cholecystitis and thrombocytopenia. Septic shock is resolved. Renal function is improving as well as shock liver. Patient was extubated aand is currently on high flow oxygen.Mental status is poor, patient has failed swallow evaluatioN. Patient condition was explained in detail to patient mother and family .Management plan and prognosis was discussed in detail . Prognosis is guarded.
--- NOTE | 2017-02-24 19:24 | CP.PCM.PN ---
Subjective - Date & Time of Evaluation Date of Evaluation: 02/24/17 Time of Evaluation: 17:00 - Subjective Subjective: Infectious Disease Follow Up: February 24, 2017 50 yo female with history of Crohn's disease admitted for groin and abdominal pain. She was recently discharged from the hospital with Doxycycline and Augmentin. During the hospitalization the patient short of breath, tachycardic , and tachypnic. Patient became hypotensive and required admission to the MICU. The patient required pressors and intubation and ventilation shortly after admission. The patient was on multiple pressors and received 4 units of PRBCs and FFPs. The patient extubated. Her acidosis improved. Respiratory functions improvee. Hemodynamically staple. She was extubated and is on nasal canula on 3 L of O2. Off pressors. Opens eyes and follows commands. Receiving 2 U FFPs. She can nod her head in response to some questions but is nonverbal and possibly aphasic at this time. The patient ability to understand information given to her is questionable. Objective - Vital Signs/Intake and Output Vital Signs (last 24 hours): Temp Pulse Resp BP Pulse Ox 100.7 F H 67 23 90/49 L 94 L 02/24/17 08:00 02/24/17 18:24 02/24/17 18:24 02/24/17 18:41 02/24/17 18:24 - Medications Medications: Current Medications Acetylcysteine (Acetylcysteine 20%) 4 ml IH [id number] [facility] Last Admin: 02/17/17 19:48 Dose: Not Given Albuterol Sulfate (Albuterol 0.083% Inhal Amarilys (2.5 Mg/3 Ml) Ud) 2.5 mg IH [id number] PRN PRN Reason: Wheezing Last Admin: 02/22/17 07:04 Dose: 2.5 mg Arformoterol Tartrate (Brovana) 15 mcg IH [id number] [facility] Last Admin: 02/24/17 07:26 Dose: 15 mcg Budesonide (Pulmicort Respules) 0.5 mg IH [id number] [facility] Last Admin: 02/24/17 07:26 Dose: 0.5 mg Clonazepam (Klonopin) 1 mg PO BID [facility] PRN Reason: Protocol Last Admin: 02/14/17 10:00 Dose: Not Given Enalaprilat (Vasotec Iv) 1.25 mg IVP Q6H [facility] Last Admin: 02/24/17 18:41 Dose: Not Given Furosemide (Lasix) 40 mg IVP Q12H [facility] Last Admin: 02/24/17 14:01 Dose: 40 mg Hydrocortisone Sodium Succinate (Solu-Cortef) 25 mg IVP DAILY [facility] Last Admin: 02/24/17 12:44 Dose: 25 mg Hydromorphone HCl (Dilaudid) 2 mg IVP Q4H PRN PRN Reason: Pain, severe (8-10) Dobutamine HCl/Dextrose (Dobutamine/Dextrose 5% 500mg/250ml) 500 mg in 250 mls @ 6.328 mls/hr IV .Q24H PRN; Protocol; 2.5 MCG/KG/MIN PRN Reason: TITRATE PER PROTOCOL Last Admin: 02/18/17 22:37 Dose: 2.5 mcg/kg/min, 6.328 mls/hr Fentanyl Citrate (Fentanyl Citrate/Sodium Chloride 1 Mg/100 Ml) 1,000 mcg in 100 mls @ 2 mls/hr IV .Q24H PRN; Protocol; 20 MCG/HR PRN Reason: TITRATE PER MD ORDER Last Titration: 02/23/17 08:04 Dose: 50 mcg/hr, 5 mls/hr Fluconazole (Diflucan Iv 200 Mg/100 Ml Ns) 100 mls @ 100 mls/hr IVPB DAILY [facility] PRN Reason: Protocol Last Admin: 02/24/17 12:54 Dose: 100 mls/hr Metronidazole (Flagyl) 500 mg in 100 mls @ 100 mls/hr IVPB Q6 [facility] PRN Reason: Protocol Last Admin: 02/24/17 12:54 Dose: 100 mls/hr Propofol (Diprivan) 1,000 mg in 100 mls @ 2.43 mls/hr IV .Q24H PRN; Protocol; 5 MCG/KG/MIN PRN Reason: TITRATE PER MD ORDER Last Admin: 02/23/17 06:56 Dose: 30 mcg/kg/min, 14.58 mls/hr Amino Acids/Electrolytes/Dextrose (Clinimix 5/20 % "E" (1000 Ml)) 1,000 mls @ 42 mls/hr IV .[id number] [facility] Last Admin: 02/24/17 18:37 Dose: 42 mls/hr Metoprolol Tartrate (Lopressor) 5 mg IVP Q6H [facility] Last Admin: 02/24/17 18:39 Dose: Not Given Ondansetron HCl (Zofran Inj) 4 mg IVP Q6 PRN PRN Reason: Nausea/Vomiting Last Admin: 02/13/17 16:26 Dose: 4 mg Pantoprazole Sodium (Protonix Inj) 40 mg IVP DAILY [facility] Last Admin: 02/24/17 10:00 Dose: 40 mg - Labs Labs: 02/24/17 09:10 02/24/17 06:30 PT 13.9 Seconds (9.9-11.8) H 02/23/17 06:00 INR 1.29 (0.93-1.08) H 02/23/17 06:00 APTT 25.9 Seconds (23.7-30.8) 02/23/17 06:00 - Constitutional Appears: Non-toxic, No Acute Distress, Chronically Ill - Head Exam Head Exam: ATRAUMATIC, NORMOCEPHALIC - Eye Exam Eye Exam: EOMI, PERRL Pupil Exam: NORMAL ACCOMODATION, PERRL - ENT Exam ENT Exam: Mucous Membranes Moist, Normal External Ear Exam, TM's Normal Bilaterally - Neck Exam Neck Exam: Full ROM, Normal Inspection - Respiratory Exam Respiratory Exam: Decreased Breath Sounds, NORMAL BREATHING PATTERN. absent: Rales, Rhonchi, Wheezes - Cardiovascular Exam Cardiovascular Exam: REGULAR RHYTHM, RRR, +S1, +S2 - GI/Abdominal Exam GI & Abdominal Exam: Soft, Normal Bowel Sounds. absent: Distended, Tenderness - Extremities Exam Additional comments: generally weak. - Neurological Exam Neurological Exam: Alert, Awake, CN II-XII Intact, Oriented x3 - Psychiatric Exam Psychiatric exam: Normal Affect, Normal Mood - Skin Skin Exam: Intact, Normal Color Assessment and Plan - Assessment and Plan (Free Text) Assessment: 51 yo female currently intubated and ventilated and poorly responsive with hypotension required pressor support with 4 medications. Was on Meropenem and Vancomycin. Supportive care. There were concerns for abdominal perforation and findings of extensive abdominal ascites and pneumoperitoneum. Severe anemia requiring PRBC transfusions. Meropenem is a reasonable choice for generalized antibiotic coverage. Continue on meropenem, flagyl, vancomycin, and diflucan for now. Supportive care. Meropenem completed 7 days of treatment. Still on Flagyl, Vancomycin, and Diflucan. Lactic acidosis improved as well as respiratory function. Extubated and on nasal cannula 3 L now. Patient hemodynamically stable. Arousable and follows commands. Receiving 2 U FFP. Patient has shown remarkable improvement over the course of her hospitalization. Extubated alert and awake now. Supportive care. Still requiring high flow oxygen for treatment. General weakness. Thank you for allowing me to participate in the care of the patient, we will follow with you.
--- NOTE | 2017-02-24 21:18 | PN ---
DATE: 02/24/[address] Lucas. SUBJECTIVE: The patient is a 51-year-old female, seen lying awake in bed with the patient now status post extubation. She remains nonverbal, but opens her eyes to command. She is on BiPAP. She is al so status post surgery with a left-sided colostomy, status post GI bleed with anemia with a total of 8 units of packed cells transfused. She is now transferred out of the intensive care unit awaiting a bed placement. The patient also suffers with septic shock with multiorgan failure. The patient is otherwise resting comfortably at this time. PHYSICAL EXAMINATION: VITAL SIGNS: Temperature for this patient is 100.7, pulse of 67, respirations 22, blood pressure 90/ 49, pulse ox 94%. HEENT: The patient is status post extubation with BiPAP. NECK: Supple. HEART: Tachy rate, regular rhythm. LUNGS: Occasional rhonchi. ABDOMEN: Soft. Minimal distention with left-sided viable colostomy. NEUROLOGIC: Somnolent, but arousable. EXTREMITIES: +1 edema. SKIN: Warm and dry. LABORATORY DATA: The patient's labs were done. White blood cell count 18.0, hemoglobin 11.2, hemato crit 35.4, platelet count of 29,000. Manual was not done today and will be ordered for tomorrow. He r chem panel shows a potassium of 3.1, BUN of 44, creatinine of 0.8. Previously, tested was HIT whic h was platelet antibody, which was negative. ASSESSMENT: Adenocarcinoma of the rectum, status post surgery with colostomy, thrombocytopenia, seps is, abdominal perforation, respiratory failure, status post extubation. PLAN: The patient is to continue present medical regimen. Continue IV antibiotics as per Dr. Phil perkins. Transfer out of the intensive care unit if the patient is stable, with the patient now DNR/DNI as per family request with considerations for hospice as indicated. We will ask for a manual platel et count in the morning with her other labs with correction of her electrolytes as per consultants' r ecommendations. Norm Lees MD cc: [id number] TT: 02/24/2017 21:17:53 Confirmation # [id number] Dictation # [id number] mn
[2017-02-25] MEDS: metroNIDAZOLE IV 500 mg/100 ml 500 MG/100 ML BAG IVPB SCH ×4 (00:02→18:28)
[2017-02-25] MEDS: Metoprolol 1 mg/ml Inj IVP SCH ×3 (03:27→15:51)
[2017-02-25] MEDS: EnalaprilAT 1.25 mg/ml Inj IVP SCH ×3 (05:27→15:51)
[2017-02-25 06:05] LABS: HEMATOCRIT 33.1 % (36.0-48.0); MEAN CELL VOLUME 91.2 fL (80.0-105.0); MEAN CORPUSCULAR HEMOGLOBIN 28.4 pg (25.0-35.0); MEAN CORPUSCULAR HGB CONC 31.1 g/dl (31.0-37.0); RED CELL DISTRIBUTION WIDTH 17.8 % (11.5-14.5)
[2017-02-25 06:18] LABS: PLATELET COUNT 19 10^3/uL (120.0-450.0)
[2017-02-25 06:19] LABS: WHITE BLOOD COUNT 12.2 10^3/ul (4.5-11.0)
[2017-02-25 06:34] LABS: ALB/GLOB RATIO 0.8 (1.1-1.8); ALKALINE PHOSPHATASE 121 U/L (38-133); ALT/SGPT 45 U/L (7-56); AST/SGOT 53 U/L (15-39); BILIRUBIN,TOTAL 1.3 mg/dL (0.2-1.3); BLOOD UREA NITROGEN 53 mg/dL (7-21); CALCIUM 8.9 mg/dL (8.4-10.5); CARBON DIOXIDE 39 mmol/L (21-33); CHLORIDE 101 mmol/L (98-107); GFR AFRICAN-AMERICAN > 60; GLUCOSE,RANDOM 108 mg/dL (70-110); MAGNESIUM 1.7 mg/dL (1.7-2.2); PHOSPHOROUS 4.1 mg/dL (2.5-4.5); POTASSIUM 3.4 mmol/L (3.6-5.0); SODIUM 151 mmol/L (132-148); TOTAL PROTEIN 6.2 g/dL (5.8-8.3)
[2017-02-25] MEDS: Budesonide 0.5 mg/2 ml Inhal Susp UD IH SCH ×2 (07:20→19:26)
[2017-02-25] MEDS: Arformoterol 15 mcg/2 ml Inh Sol IH SCH ×2 (07:20→19:26)
--- NOTE | 2017-02-25 07:41 | CP.CCUPN ---
<Pacheco Alcala - Last Filed: 02/25/17 13:50> CCU Subjective - Physician Review Events Since Last Encounter (Free Text): No acute events reported overnight. Nurse reported patient was lower end of normotensive so nurse held dose of enalapril, pt remained normortensive 02/25/17 07:37 02/25/17 07:38 02/25/17 07:42 Subjective (Free Text): Patient is currently extubated with BIPAP in place. She remains nonverbal and communicates using head nods. She denies any pain. 02/25/17 07:36 CCU Objective - Vital Signs / Intake & Output Vital Signs (Last 4 hours): Vital Signs Temp Pulse Resp BP Pulse Ox 02/25/17 06:55 90 02/25/17 05:27 99/62 L 02/25/17 05:00 106/76 02/25/17 04:59 102 H 39 H 02/25/17 04:02 104 H 32 H 126/84 92 L 02/25/17 04:00 98 F 92 H 46 H 100 02/25/17 03:45 104 H 30 H 104/55 L 93 L Intake and Output (Last 8hrs): Intake & Output 02/24/17 02/25/17 02/25/17 22:59 06:59 14:59 Intake Total 792 664 Output Total 800 1100 Balance -8 -436 Intake: IV 792 664 right 792 664 Output: Urine 800 1100 Urethral (Uribe) 800 1100 Other: Voiding Method Indwelling Catheter - Physical Exam Head: Positive for: Atraumatic, Normocephalic Pupils: Positive for: PERRL Extroacular Muscles: Positive for: EOMI Conjunctiva: Positive for: Normal Mouth: Positive for: Other (Patient with BIPAP in place ) Neck: Positive for: Normal Range of Motion Respiratory/Chest: Positive for: Other (coars breath sounds decreased on the right). Negative for: Respiratory Distress, Accessory Muscle Use Cardiovascular: Positive for: Regular Rate and Rhythm, Normal S1, S2. Negative for: Murmurs Abdomen: Positive for: Normal Bowel Sounds, Other (ostomy bag in place with no surrounding erythema or signs of infection). Negative for: Tenderness, Distention, Peritoneal Signs, Rebound, Guarding Genitourinary/Pelvic Exam: Positive for: Other (Uribe catheter in place without elmira pus) Back: Positive for: Normal Inspection Upper Extremity: Positive for: Normal Inspection, NORMAL PULSES. Negative for: Cyanosis, Edema Lower Extremity: Positive for: NORMAL PULSES. Negative for: CALF TENDERNESS Neurological: Positive for: Other (Awake and alert ) Skin: Positive for: Warm, Dry, Rashes, Other (Petechia noted on extremities) Lymphatic: Positive for: Inguinal Adenopathy (bilaterally) Psychiatric: Positive for: Alert, Other - Medications Active Medications: Active Medications Generic Name Dose Route Start Last Admin Trade Name Freq PRN Reason Stop Dose Admin Acetylcysteine 4 ml 02/16/17 12:00 02/17/17 19:48 Acetylcysteine 20% IH Not Given [id number] RAOUL Albuterol Sulfate 2.5 mg 02/21/17 08:06 02/22/17 07:04 Albuterol 0.083% Inhal Amarilys (2.5 Mg/3 Ml) Ud IH 2.5 mg [id number] PRN Administration Wheezing Arformoterol Tartrate 15 mcg 02/11/17 20:00 02/25/17 07:20 Brovana IH 15 mcg [id number] RAOUL Administration Budesonide 0.5 mg 02/11/17 20:00 02/25/17 07:20 Pulmicort Respules IH 0.5 mg [id number] RAOUL Administration Clonazepam 1 mg 02/11/17 18:00 02/14/17 10:00 Klonopin PO Not Given BID [facility] Protocol Enalaprilat 1.25 mg 02/19/17 15:45 02/25/17 05:27 Vasotec Iv IVP Not Given Q6H RAOUL Furosemide 40 mg 02/21/17 14:35 02/25/17 03:26 Lasix IVP 40 mg Q12H RAOUL Administration Hydrocortisone Sodium Succinate 25 mg 02/23/17 08:15 02/24/17 12:44 Solu-Cortef IVP 25 mg DAILY RAOUL Administration Hydromorphone HCl 2 mg 02/24/17 12:45 Dilaudid IVP Q4H PRN Pain, severe (8-10) Dobutamine HCl/Dextrose 500 mg in 250 mls @ 6.328 mls/hr 02/17/17 08:56 02/18 22:37 Dobutamine/Dextrose 5% 500mg/250ml IV 2.5 mcg/kg/min .Q24H PRN 6.328 mls/hr TITRATE PER PROTOCOL Administration Protocol 2.5 MCG/KG/MIN Fentanyl Citrate 1,000 mcg in 100 mls @ 2 mls/hr 02/18/17 15:10 02/23/17 08: 04 Fentanyl Citrate/Sodium Chloride 1 Mg/100 Ml IV 50 mcg/hr .Q24H PRN 5 mls/hr TITRATE PER MD ORDER Titration Protocol 20 MCG/HR Fluconazole 100 mls @ 100 mls/hr 02/19/17 10:45 02/24/17 12:54 Diflucan Iv 200 Mg/100 Ml Ns IVPB 100 mls/hr DAILY RAOUL Administration Protocol Metronidazole 500 mg in 100 mls @ 100 mls/hr 02/19/17 18:00 02/25/17 05:27 Flagyl IVPB 100 mls/hr Q6 RAOUL Administration Protocol Propofol 1,000 mg in 100 mls @ 2.43 mls/hr 02/20/17 15:18 02/23/17 06:56 Diprivan IV 30 mcg/kg/min .Q24H PRN 14.58 mls/hr TITRATE PER MD ORDER Administration Protocol 5 MCG/KG/MIN Amino Acids/Electrolytes/Dextrose 1,000 mls @ 42 mls/hr 02/23/17 18:00 18:37 Clinimix 5/20 % "E" (1000 Ml) IV 42 mls/hr .[id number] RAOUL Administration Potassium Chloride 20 meq in 100 mls @ 50 mls/hr 02/25/17 07:32 Potassium Chloride 20 Meq/100 Ml IVPB 02/25/17 09:31 ONCE ONE Metoprolol Tartrate 5 mg 02/20/17 08:45 02/25/17 03:27 Lopressor IVP Not Given Q6H RAOUL Ondansetron HCl 4 mg 02/11/17 13:30 02/13/17 16:26 Zofran Inj IVP 4 mg Q6 PRN Administration Nausea/Vomiting Pantoprazole Sodium 40 mg 02/14/17 10:00 02/24/17 10:00 Protonix Inj IVP 40 mg DAILY RAOUL Administration - Patient Studies Lab Studies: Microbiology Studies 02/20/17 06:50 Blood Culture - Final Blood NO GROWTH AFTER 5 DAYS Gram Stain - Final TEST NOT PERFORMED 02/23/17 15:05 Urine Culture - Final Urine,Uribe No Growth (<1,000 CFU/ML) Lab Studies 02/25/17 02/25/17 02/24/17 Range/Units 05:50 05:50 23:54 WBC 12.2 H D (4.5-11.0) 10^3/ul RBC 3.63 (3.5-6.1) 10^6/uL Hgb 10.3 L (12.0-16.0) gm/dL Hct 33.1 L (36.0-48.0) % MCV 91.2 (80.0-105.0) fL MCH 28.4 (25.0-35.0) pg MCHC 31.1 (31.0-37.0) g/dl RDW 17.8 H (11.5-14.5) % Plt Count 19 L* (120.0-450.0) 10^3/uL Manual Plt Count 21 L* (120-450) K/mm3 Gran % (50.0-68.0) % Lymph % (Auto) (22.0-35.0) % Faulk % (Auto) (1.0-6.0) % Eos % (Auto) (1.5-5.0) % Baso % (Auto) (0.0-3.0) % Gran # (1.4-6.5) Lymph # (1.2-3.4) Faulk # (0.1-0.6) Eos # (0.0-0.7) Baso # (0.0-2.0) K/mm3 Sodium 151 H (132-148) mmol/L Potassium 3.4 L (3.6-5.0) mmol/L Chloride 101 (98-107) mmol/L Carbon Dioxide 39 H (21-33) mmol/L Anion Gap 14 (10-20) BUN 53 H (7-21) mg/dL Creatinine 0.9 (0.5-1.4) mg/dL Est GFR ( Amer) > 60 Est GFR (Non-Af Amer) > 60 POC Glucose (mg/dL) 129 H (65-110) mg/dL Random Glucose 108 (70-110) mg/dL Calcium 8.9 (8.4-10.5) mg/dL Phosphorus 4.1 (2.5-4.5) mg/dL Magnesium 1.7 (1.7-2.2) mg/dL Total Bilirubin 1.3 (0.2-1.3) mg/dL AST 53 H (15-39) U/L ALT 45 (7-56) U/L Alkaline Phosphatase 121 (38-133) U/L Total Protein 6.2 (5.8-8.3) g/dL Albumin 2.7 L (3.0-4.8) g/dL Globulin 3.5 gm/dL Albumin/Globulin Ratio 0.8 L (1.1-1.8) 02/24/17 02/24/17 02/24/17 Range/Units 18:29 11:52 09:10 WBC 18.0 H (4.5-11.0) 10^3/ul RBC 3.93 (3.5-6.1) 10^6/uL Hgb 11.2 L (12.0-16.0) gm/dL Hct 35.4 L (36.0-48.0) % MCV 90.1 (80.0-105.0) fL MCH 28.5 (25.0-35.0) pg MCHC 31.6 (31.0-37.0) g/dl RDW 17.6 H (11.5-14.5) % Plt Count 29 L* (120.0-450.0) 10^3/uL Manual Plt Count (120-450) K/mm3 Gran % 76.3 H (50.0-68.0) % Lymph % (Auto) 14.3 L (22.0-35.0) % Faulk % (Auto) 2.1 (1.0-6.0) % Eos % (Auto) 3.5 (1.5-5.0) % Baso % (Auto) 3.8 H (0.0-3.0) % Gran # 13.72 H (1.4-6.5) Lymph # 2.6 (1.2-3.4) Faulk # 0.4 (0.1-0.6) Eos # 0.6 (0.0-0.7) Baso # 0.69 (0.0-2.0) K/mm3 Sodium (132-148) mmol/L Potassium (3.6-5.0) mmol/L Chloride (98-107) mmol/L Carbon Dioxide (21-33) mmol/L Anion Gap (10-20) BUN (7-21) mg/dL Creatinine (0.5-1.4) mg/dL Est GFR ( Amer) Est GFR (Non-Af Amer) POC Glucose (mg/dL) 138 H 113 H (65-110) mg/dL Random Glucose (70-110) mg/dL Calcium (8.4-10.5) mg/dL Phosphorus (2.5-4.5) mg/dL Magnesium (1.7-2.2) mg/dL Total Bilirubin (0.2-1.3) mg/dL AST (15-39) U/L ALT (7-56) U/L Alkaline Phosphatase (38-133) U/L Total Protein (5.8-8.3) g/dL Albumin (3.0-4.8) g/dL Globulin gm/dL Albumin/Globulin Ratio (1.1-1.8) Laboratory Results - last 24 hr 02/24/17 02/24/17 02/24/17 09:10 11:52 18:29 WBC 18.0 H RBC 3.93 Hgb 11.2 L Hct 35.4 L MCV 90.1 MCH 28.5 MCHC 31.6 RDW 17.6 H Plt Count 29 L* Manual Plt Count Gran % 76.3 H Lymph % (Auto) 14.3 L Faulk % (Auto) 2.1 Eos % (Auto) 3.5 Baso % (Auto) 3.8 H Gran # 13.72 H Lymph # 2.6 Faulk # 0.4 Eos # 0.6 Baso # 0.69 Sodium Potassium Chloride Carbon Dioxide Anion Gap BUN Creatinine Est GFR ( Amer) Est GFR (Non-Af Amer) POC Glucose (mg/dL) 113 H 138 H Random Glucose Calcium Phosphorus Magnesium Total Bilirubin AST ALT Alkaline Phosphatase Total Protein Albumin Globulin Albumin/Globulin Ratio 02/24/17 02/25/17 02/25/17 23:54 05:50 05:50 WBC 12.2 H D RBC 3.63 Hgb 10.3 L Hct 33.1 L MCV 91.2 MCH 28.4 MCHC 31.1 RDW 17.8 H Plt Count 19 L* Manual Plt Count 21 L* Gran % Lymph % (Auto) Faulk % (Auto) Eos % (Auto) Baso % (Auto) Gran # Lymph # Faulk # Eos # Baso # Sodium 151 H Potassium 3.4 L Chloride 101 Carbon Dioxide 39 H Anion Gap 14 BUN 53 H Creatinine 0.9 Est GFR ( Amer) > 60 Est GFR (Non-Af Amer) > 60 POC Glucose (mg/dL) 129 H Random Glucose 108 Calcium 8.9 Phosphorus 4.1 Magnesium 1.7 Total Bilirubin 1.3 AST 53 H ALT 45 Alkaline Phosphatase 121 Total Protein 6.2 Albumin 2.7 L Globulin 3.5 Albumin/Globulin Ratio 0.8 L Fingerstick Blood Sugar Results: 117 Review of Systems - Review of Systems Systems not reviewed;Unavailable: Acuity of Condition Critical Care Progress Note - Ventilator Checklist Head of Bed 30 Degrees: Yes - Extremities/Vascular Does the Patient have a Central Venous Catheter?: Yes Insertion Site: right basilic Does the Patient need a Central Venous Catheter?: Yes Does the Patient have a Uribe Catheter?: Yes Does the Patient need a Uribe Catheter?: Yes Catheter Insertion Criteria: Need for accurate measurement of output in critically ill patient - Prophylaxis GI Prophylaxis GI: PPI - Prophylaxis DVT Prophylaxis DVT: SCDs Assessment/Plan - Assessment and Plan (Free Text) Assessment: This is a 51F who was admitted to [facility] due to LE pain and abdominal pain, on she had a c-scope, durring the following evening she desaturated and became hypotensive was transferred to ICU with a Hgb of 8.3, CT scan significant for free air indicating a perforated viscous. Neuro: EOMI, GCS 15 CV: Hemodynamically stable off pressors Pulm: Pulmonary infiltrates, continue abx, saturating 97% on BIPAP will continue , history of asthma continue brovana, budesonide GI: OG tube removed, swallow study pending patient, liquid diet per surgery pending swallow study results. : Patient is positive for ESBL and proteus on 01/14 repeat urine cx on 01/19 clean , leave uribe in place, patient currently on flagyl Endo: Potassium low, repleated ID: Patients sepsis resolved Heme: No elmira bleeding Disposition: Patient D/C to tele Will Discuss with Dr. Jessica Alcala PGY-1 <Van Lopez - Last Filed: 02/25/17 17:59> CCU Objective - Vital Signs / Intake & Output Vital Signs (Last 4 hours): Vital Signs Pulse BP 02/25/17 17:24 54 L 02/25/17 15:51 54 L 78/46 L Intake and Output (Last 8hrs): Intake & Output 02/25/17 02/25/17 02/25/17 06:59 14:59 22:59 Intake Total 664 Output Total 1100 Balance -436 Weight 162 lb Intake: IV 664 right 664 Output: Urine 1100 Urethral (Uribe) 1100 Other: Voiding Method Indwelling Catheter - Medications Active Medications: Active Medications Generic Name Dose Route Start Last Admin Trade Name Freq PRN Reason Stop Dose Admin Acetaminophen 650 mg 02/25/17 15:09 Tylenol 650 Mg Supp RC Q4H PRN Fever >100.4 F Albuterol Sulfate 2.5 mg 02/21/17 08:06 02/22/17 07:04 Albuterol 0.083% Inhal Amarilys (2.5 Mg/3 Ml) Ud IH 2.5 mg [id number] PRN Administration Wheezing Arformoterol Tartrate 15 mcg 02/11/17 20:00 02/25/17 07:20 Brovana IH 15 mcg [id number] RAOUL Administration Budesonide 0.5 mg 02/11/17 20:00 02/25/17 07:20 Pulmicort Respules IH 0.5 mg [id number] RAOUL Administration Clonazepam 1 mg 02/11/17 18:00 02/14/17 10:00 Klonopin PO Not Given BID [facility] Protocol Enalaprilat 1.25 mg 02/19/17 15:45 02/25/17 15:51 Vasotec Iv IVP Not Given Q6H RAOUL Furosemide 40 mg 02/25/17 10:00 02/25/17 10:00 Lasix IVP Not Given DAILY [facility] Hydrocortisone Sodium Succinate 25 mg 02/23/17 08:15 02/24/17 12:44 Solu-Cortef IVP 25 mg DAILY RAOUL Administration Hydromorphone HCl 2 mg 02/24/17 12:45 Dilaudid IVP Q4H PRN Pain, severe (8-10) Metronidazole 500 mg in 100 mls @ 100 mls/hr 02/19/17 18:00 02/25/17 12:00 Flagyl IVPB 100 mls/hr Q6 RAOUL Administration Protocol Amino Acids/Electrolytes/Dextrose 1,000 mls @ 42 mls/hr 02/23/17 18:00 18:37 Clinimix 5/20 % "E" (1000 Ml) IV 42 mls/hr .[id number] RAOUL Administration Lorazepam 0.5 mg 02/25/17 15:14 Ativan IVP Q6H PRN Restlessness Protocol Ondansetron HCl 4 mg 02/11/17 13:30 02/13/17 16:26 Zofran Inj IVP 4 mg Q6 PRN Administration Nausea/Vomiting Pantoprazole Sodium 40 mg 02/14/17 10:00 02/25/17 10:00 Protonix Inj IVP 40 mg DAILY RAOUL Administration - Patient Studies Lab Studies: Microbiology Studies 02/20/17 06:50 Blood Culture - Final Blood NO GROWTH AFTER 5 DAYS Gram Stain - Final TEST NOT PERFORMED Lab Studies 02/25/17 02/25/17 02/24/17 Range/Units 05:50 05:50 23:54 WBC 12.2 H D (4.5-11.0) 10^3/ul RBC 3.63 (3.5-6.1) 10^6/uL Hgb 10.3 L (12.0-16.0) gm/dL Hct 33.1 L (36.0-48.0) % MCV 91.2 (80.0-105.0) fL MCH 28.4 (25.0-35.0) pg MCHC 31.1 (31.0-37.0) g/dl RDW 17.8 H (11.5-14.5) % Plt Count 19 L* (120.0-450.0) 10^3/uL Manual Plt Count 21 L* (120-450) K/mm3 Sodium 151 H (132-148) mmol/L Potassium 3.4 L (3.6-5.0) mmol/L Chloride 101 (98-107) mmol/L Carbon Dioxide 39 H (21-33) mmol/L Anion Gap 14 (10-20) BUN 53 H (7-21) mg/dL Creatinine 0.9 (0.5-1.4) mg/dL Est GFR ( Amer) > 60 Est GFR (Non-Af Amer) > 60 POC Glucose (mg/dL) 129 H (65-110) mg/dL Random Glucose 108 (70-110) mg/dL Calcium 8.9 (8.4-10.5) mg/dL Phosphorus 4.1 (2.5-4.5) mg/dL Magnesium 1.7 (1.7-2.2) mg/dL Total Bilirubin 1.3 (0.2-1.3) mg/dL AST 53 H (15-39) U/L ALT 45 (7-56) U/L Alkaline Phosphatase 121 (38-133) U/L Total Protein 6.2 (5.8-8.3) g/dL Albumin 2.7 L (3.0-4.8) g/dL Globulin 3.5 gm/dL Albumin/Globulin Ratio 0.8 L (1.1-1.8) 02/24/17 02/24/17 Range/Units 18:29 11:52 WBC (4.5-11.0) 10^3/ul RBC (3.5-6.1) 10^6/uL Hgb (12.0-16.0) gm/dL Hct (36.0-48.0) % MCV (80.0-105.0) fL MCH (25.0-35.0) pg MCHC (31.0-37.0) g/dl RDW (11.5-14.5) % Plt Count (120.0-450.0) 10^3/uL Manual Plt Count (120-450) K/mm3 Sodium (132-148) mmol/L Potassium (3.6-5.0) mmol/L Chloride (98-107) mmol/L Carbon Dioxide (21-33) mmol/L Anion Gap (10-20) BUN (7-21) mg/dL Creatinine (0.5-1.4) mg/dL Est GFR ( Amer) Est GFR (Non-Af Amer) POC Glucose (mg/dL) 138 H 113 H (65-110) mg/dL Random Glucose (70-110) mg/dL Calcium (8.4-10.5) mg/dL Phosphorus (2.5-4.5) mg/dL Magnesium (1.7-2.2) mg/dL Total Bilirubin (0.2-1.3) mg/dL AST (15-39) U/L ALT (7-56) U/L Alkaline Phosphatase (38-133) U/L Total Protein (5.8-8.3) g/dL Albumin (3.0-4.8) g/dL Globulin gm/dL Albumin/Globulin Ratio (1.1-1.8) Laboratory Results - last 24 hr 02/24/17 02/24/17 02/24/17 11:52 18:29 23:54 WBC RBC Hgb Hct MCV MCH MCHC RDW Plt Count Manual Plt Count Sodium Potassium Chloride Carbon Dioxide Anion Gap BUN Creatinine Est GFR ( Amer) Est GFR (Non-Af Amer) POC Glucose (mg/dL) 113 H 138 H 129 H Random Glucose Calcium Phosphorus Magnesium Total Bilirubin AST ALT Alkaline Phosphatase Total Protein Albumin Globulin Albumin/Globulin Ratio 02/25/17 02/25/17 05:50 05:50 WBC 12.2 H D RBC 3.63 Hgb 10.3 L Hct 33.1 L MCV 91.2 MCH 28.4 MCHC 31.1 RDW 17.8 H Plt Count 19 L* Manual Plt Count 21 L* Sodium 151 H Potassium 3.4 L Chloride 101 Carbon Dioxide 39 H Anion Gap 14 BUN 53 H Creatinine 0.9 Est GFR ( Amer) > 60 Est GFR (Non-Af Amer) > 60 POC Glucose (mg/dL) Random Glucose 108 Calcium 8.9 Phosphorus 4.1 Magnesium 1.7 Total Bilirubin 1.3 AST 53 H ALT 45 Alkaline Phosphatase 121 Total Protein 6.2 Albumin 2.7 L Globulin 3.5 Albumin/Globulin Ratio 0.8 L EKG/Cardiology Studies: Cardiology / EKG Studies 02/25/17 09:46 EKG [ELECTROCARDIOGRAM] Stat Comment: Reason For Exam: afib Addendum Addendum: 02/25/17 17:55 patient was seen, examined and discussed with Dr. Alcala. His note reflects my exam, assessment and plan, except as below. Meds/Labs/ONE reviewed 51 yo with waning mental status after septic shock with MODS, unable to protect airways, DNR/DNI, on BPAP. Palliative care is following patient and trying to reach patient's mother to discuss comfort care. At present time will try nasotracheal suction, chest PT, BPAP, conservative fluid and 02 management. [facility] time 40 min
[2017-02-25] MEDS: HYDROmorphone 2 mg/ml ISec IVP SCH (09:49)
[2017-02-25] MEDS: Fluconazole IV 200mg/100 ml NS 100 ML IVPB SCH (10:49)
--- NOTE | 2017-02-25 12:13 | PN ---
DATE: 02/25/2017 SUBJECTIVE: The patient is seen lying in bed. She is on oxygen FIO2 of 80%. She is very tachypneic . Appears uncomfortable. PHYSICAL EXAMINATION: GENERAL: Middle aged lady lying in bed in the ICU. VITAL SIGNS: Blood pressure 98/54, heart rate 90, respiratory rate 25, temperature 98.4, T-max is 10 0.7. HEENT: Normocephalic, atraumatic. NECK: Supple, no JVD. LUNGS: Bilateral rhonchi, coarse breath sounds. CARDIAC: S1, S2, regular rate and rhythm, no murmur, no rub. ABDOMEN: Distended, soft, positive colostomy, bowel sounds sluggish. EXTREMITIES: 2+ pitting edema of the lower extremities. INTAKE AND OUTPUT: 1456/1900. LABORATORY DATA: WBC 12.2, hemoglobin 10, hematocrit 33, platelets 19. Sodium 151, potassium 3.4, c hloride 101, CO2 39, BUN 53, creatinine 0.9, glucose 108, calcium 8.9, phosphorus 4.1, magnesium 1.7. AST 53, ALT 45, albumin 2.7. Urine culture no growth. Blood culture no growth. CURRENT MEDICATIONS: List reviewed. ASSESSMENT AND PLAN: 1. Hypernatremia 2. Hypokalemia, resolved. 3. Hypomagnesemia, resolved. 4. History of Crohn's disease, colon cancer. 5. History of intraabdominal sepsis, laparotomy, hemicolectomy, colostomy. 6. Gastrointestinal bleed. 7. Sepsis/disseminated intravascular coagulation, resolving. 8. Severe thrombocytopenia. PLAN: 1. DNR/DNI noted. 2. Remains critically ill. 3. Prognosis is grim. 4. Continue current management. Lucinda Kelley MD cc: [phone] TT: 02/25/2017 12:13:10 Confirmation # [id number] Dictation # [id number] mn
[2017-02-25 12:41] VITALS: RESP 24
[2017-02-25 13:20] VITALS: O2SAT 98
--- NOTE | 2017-02-25 14:36 | CARD ---
APPROVED REPORT EKG Measurement Heart [id number] MI [id number] <Conclusion> Normal sinus rhythm ST & T wave abnormality, consider inferior ischemia ST & T wave abnormality, consider anterolateral ischemia Prolonged QT Abnormal ECG
--- NOTE | 2017-02-25 14:59 | CP.PCM.PN ---
Subjective - Date & Time of Evaluation Date of Evaluation: 02/25/17 Time of Evaluation: 14:57 - Subjective Subjective: Surgery: Dr. Marti Patient remains in ICU. Patient does open eyes to verbal cue. Patient on BiPAP up in chair but mental and respiratory status overall poor. Per nursing no acute events overnight. Objective - Vital Signs/Intake and Output Vital Signs (last 24 hours): Temp Pulse Resp BP Pulse Ox 99.8 F H 47 L 24 111/46 L 98 02/25/17 12:00 02/25/17 13:09 02/25/17 13:00 02/25/17 13:10 02/25/17 13:00 Intake and Output: 02/25/17 02/25/17 06:59 18:59 Intake Total 1456 Output Total 1900 Balance -444 - Medications Medications: Current Medications Albuterol Sulfate (Albuterol 0.083% Inhal Amarilys (2.5 Mg/3 Ml) Ud) 2.5 mg IH [id number] PRN PRN Reason: Wheezing Last Admin: 02/22/17 07:04 Dose: 2.5 mg Arformoterol Tartrate (Brovana) 15 mcg IH [id number] [facility] Last Admin: 02/25/17 07:20 Dose: 15 mcg Budesonide (Pulmicort Respules) 0.5 mg IH [id number] RAOUL Last Admin: 02/25/17 07:20 Dose: 0.5 mg Clonazepam (Klonopin) 1 mg PO BID RAOUL PRN Reason: Protocol Last Admin: 02/14/17 10:00 Dose: Not Given Enalaprilat (Vasotec Iv) 1.25 mg IVP Q6H [facility] Last Admin: 02/25/17 09:48 Dose: Not Given Furosemide (Lasix) 40 mg IVP DAILY [facility] Last Admin: 02/25/17 10:00 Dose: Not Given Hydrocortisone Sodium Succinate (Solu-Cortef) 25 mg IVP DAILY [facility] Last Admin: 02/24/17 12:44 Dose: 25 mg Hydromorphone HCl (Dilaudid) 2 mg IVP Q4H PRN PRN Reason: Pain, severe (8-10) Metronidazole (Flagyl) 500 mg in 100 mls @ 100 mls/hr IVPB Q6 RAOUL PRN Reason: Protocol Last Admin: 02/25/17 05:27 Dose: 100 mls/hr Amino Acids/Electrolytes/Dextrose (Clinimix 5/20 % "E" (1000 Ml)) 1,000 mls @ 42 mls/hr IV .[id number] [facility] Last Admin: 02/24/17 18:37 Dose: 42 mls/hr Metoprolol Tartrate (Lopressor) 5 mg IVP Q6H [facility] Last Admin: 02/25/17 09:48 Dose: Not Given Ondansetron HCl (Zofran Inj) 4 mg IVP Q6 PRN PRN Reason: Nausea/Vomiting Last Admin: 02/13/17 16:26 Dose: 4 mg Pantoprazole Sodium (Protonix Inj) 40 mg IVP DAILY [facility] Last Admin: 02/25/17 10:00 Dose: 40 mg - Labs Labs: 02/25/17 05:50 02/25/17 05:50 PT 13.9 Seconds (9.9-11.8) H 02/23/17 06:00 INR 1.29 (0.93-1.08) H 02/23/17 06:00 APTT 25.9 Seconds (23.7-30.8) 02/23/17 06:00 - Constitutional Appears: Toxic, Chronically Ill - Head Exam Head Exam: ATRAUMATIC - ENT Exam ENT Exam: Mucous Membranes Dry - Respiratory Exam Respiratory Exam: Accessory Muscle Use, Rhonchi - Cardiovascular Exam Cardiovascular Exam: REGULAR RHYTHM. absent: Tachycardia - GI/Abdominal Exam GI & Abdominal Exam: Soft. absent: Distended, Tenderness - Neurological Exam Neurological Exam: Awake - Skin Skin Exam: Dry, Warm Assessment and Plan - Assessment and Plan (Free Text) Assessment: 51 y/o female with resolved septic shock but continuing to have overall poor clinical progress Plan: -cont management per ICU -if respiratory status remains poor, maintain NPO status -no further surgical recs at this time -seen and examined w/ Dr. Conchis Ray PGY1
[2017-02-25] MEDS ORDERED: Morphine 2 mg/ml ISec IVP PRN (15:03)
--- NOTE | 2017-02-25 15:03 | RAD ---
HISTORY: pneumonia COMPARISON: 02/24/2017 FINDINGS: LUNGS: There is a new area of consolidation in the right lower lobe. The right upper lobe consolidation has improved. The left-sided infiltrate has improved PLEURA: No significant pleural effusion identified, no pneumothorax apparent. CARDIOVASCULAR: Normal. OSSEOUS STRUCTURES: No significant abnormalities. VISUALIZED UPPER ABDOMEN: Normal. OTHER FINDINGS: None. IMPRESSION: There is a new area of consolidation in the right lower lobe. The right upper lobe consolidation has improved. The left-sided infiltrate has improved
--- NOTE | 2017-02-25 15:08 | CP.PCM.PN ---
Subjective - Date & Time of Evaluation Date of Evaluation: 02/25/17 Time of Evaluation: 12:00 - Subjective Subjective: Infectious Disease Follow Up: February 25, 2017 50 yo female with history of Crohn's disease admitted for groin and abdominal pain. She was recently discharged from the hospital with Doxycycline and Augmentin. During the hospitalization the patient short of breath, tachycardic , and tachypnic. Patient became hypotensive and required admission to the MICU. The patient required pressors and intubation and ventilation shortly after admission. The patient was on multiple pressors and received 4 units of PRBCs and FFPs. The patient extubated. Her acidosis improved. Respiratory function have worsened since yesterday. Poorly responsive. Agonal breathing today. Patient deteriorating rapidly. Objective - Vital Signs/Intake and Output Vital Signs (last 24 hours): Temp Pulse Resp BP Pulse Ox 99.8 F H 47 L 24 111/46 L 98 02/25/17 12:00 02/25/17 13:09 02/25/17 13:00 02/25/17 13:10 02/25/17 13:00 Intake and Output: 02/25/17 02/25/17 06:59 18:59 Intake Total 1456 Output Total 1900 Balance -444 - Medications Medications: Current Medications Albuterol Sulfate (Albuterol 0.083% Inhal Amarilys (2.5 Mg/3 Ml) Ud) 2.5 mg IH [id number] PRN PRN Reason: Wheezing Last Admin: 02/22/17 07:04 Dose: 2.5 mg Arformoterol Tartrate (Brovana) 15 mcg IH [id number] [facility] Last Admin: 02/25/17 07:20 Dose: 15 mcg Budesonide (Pulmicort Respules) 0.5 mg IH [id number] [facility] Last Admin: 02/25/17 07:20 Dose: 0.5 mg Clonazepam (Klonopin) 1 mg PO BID [facility] PRN Reason: Protocol Last Admin: 02/14/17 10:00 Dose: Not Given Enalaprilat (Vasotec Iv) 1.25 mg IVP Q6H [facility] Last Admin: 02/25/17 09:48 Dose: Not Given Furosemide (Lasix) 40 mg IVP DAILY [facility] Last Admin: 02/25/17 10:00 Dose: Not Given Hydrocortisone Sodium Succinate (Solu-Cortef) 25 mg IVP DAILY [facility] Last Admin: 02/24/17 12:44 Dose: 25 mg Hydromorphone HCl (Dilaudid) 2 mg IVP Q4H PRN PRN Reason: Pain, severe (8-10) Metronidazole (Flagyl) 500 mg in 100 mls @ 100 mls/hr IVPB Q6 [facility] PRN Reason: Protocol Last Admin: 02/25/17 05:27 Dose: 100 mls/hr Amino Acids/Electrolytes/Dextrose (Clinimix 5/20 % "E" (1000 Ml)) 1,000 mls @ 42 mls/hr IV .[id number] [facility] Last Admin: 02/24/17 18:37 Dose: 42 mls/hr Metoprolol Tartrate (Lopressor) 5 mg IVP Q6H [facility] Last Admin: 02/25/17 09:48 Dose: Not Given Ondansetron HCl (Zofran Inj) 4 mg IVP Q6 PRN PRN Reason: Nausea/Vomiting Last Admin: 02/13/17 16:26 Dose: 4 mg Pantoprazole Sodium (Protonix Inj) 40 mg IVP DAILY [facility] Last Admin: 02/25/17 10:00 Dose: 40 mg - Labs Labs: 02/25/17 05:50 02/25/17 05:50 PT 13.9 Seconds (9.9-11.8) H 02/23/17 06:00 INR 1.29 (0.93-1.08) H 02/23/17 06:00 APTT 25.9 Seconds (23.7-30.8) 02/23/17 06:00 - Constitutional Appears: Toxic, Chronically Ill - Head Exam Head Exam: ATRAUMATIC, NORMOCEPHALIC - Eye Exam Eye Exam: EOMI, PERRL Pupil Exam: NORMAL ACCOMODATION, PERRL - ENT Exam ENT Exam: Mucous Membranes Moist, Normal External Ear Exam, TM's Normal Bilaterally - Neck Exam Neck Exam: Full ROM, Normal Inspection - Respiratory Exam Respiratory Exam: Decreased Breath Sounds, Wheezes, Respiratory Distress. absent: Rales, Rhonchi - Cardiovascular Exam Cardiovascular Exam: Tachycardia, RRR, +S1, +S2 - GI/Abdominal Exam GI & Abdominal Exam: Distended, Soft, Normal Bowel Sounds. absent: Tenderness - Extremities Exam Extremities Exam: Joint Swelling, Pedal Edema Additional comments: +2-3 edema all four extremities. necrosis of the third fingertip on the left hand. tissue tense in arms. - Neurological Exam Additional comments: occasionally opens eyes spontaneously Assessment and Plan - Assessment and Plan (Free Text) Assessment: 51 yo female currently intubated and ventilated and poorly responsive with hypotension required pressor support with 4 medications. Was on Meropenem and Vancomycin. Supportive care. There were concerns for abdominal perforation and findings of extensive abdominal ascites and pneumoperitoneum. Severe anemia requiring PRBC transfusions. Meropenem is a reasonable choice for generalized antibiotic coverage. Continue on meropenem, flagyl, vancomycin, and diflucan for now. Supportive care. Meropenem completed 7 days of treatment. Still on Flagyl, Vancomycin, and Diflucan. Respiratory status has worsened considerably in the past 24 hours. Agonal breathing. Patient deteriorating. DNR/DNI. Prognosis dismal... would recommend hospice evaluation. Thank you for allowing me to participate in the care of the patient, we will follow with you.
--- NOTE | 2017-02-25 15:09 | CP.PCM.PN ---
Subjective - Date & Time of Evaluation Date of Evaluation: 02/25/17 Time of Evaluation: 14:00 - Subjective Subjective: Unresponsive, on BIPAP, irregular breathing. Objective - Vital Signs/Intake and Output Vital Signs (last 24 hours): Temp Pulse Resp BP Pulse Ox 99.8 F H 47 L 24 111/46 L 98 02/25/17 12:00 02/25/17 13:09 02/25/17 13:00 02/25/17 13:10 02/25/17 13:00 Intake and Output: 02/25/17 02/25/17 06:59 18:59 Intake Total 1456 Output Total 1900 Balance -444 - Medications Medications: Current Medications Albuterol Sulfate (Albuterol 0.083% Inhal Amarilys (2.5 Mg/3 Ml) Ud) 2.5 mg IH [id number] PRN PRN Reason: Wheezing Last Admin: 02/22/17 07:04 Dose: 2.5 mg Arformoterol Tartrate (Brovana) 15 mcg IH [id number] [facility] Last Admin: 02/25/17 07:20 Dose: 15 mcg Budesonide (Pulmicort Respules) 0.5 mg IH [id number] [facility] Last Admin: 02/25/17 07:20 Dose: 0.5 mg Clonazepam (Klonopin) 1 mg PO BID [facility] PRN Reason: Protocol Last Admin: 02/14/17 10:00 Dose: Not Given Enalaprilat (Vasotec Iv) 1.25 mg IVP Q6H [facility] Last Admin: 02/25/17 09:48 Dose: Not Given Furosemide (Lasix) 40 mg IVP DAILY [facility] Last Admin: 02/25/17 10:00 Dose: Not Given Hydrocortisone Sodium Succinate (Solu-Cortef) 25 mg IVP DAILY [facility] Last Admin: 02/24/17 12:44 Dose: 25 mg Hydromorphone HCl (Dilaudid) 2 mg IVP Q4H PRN PRN Reason: Pain, severe (8-10) Metronidazole (Flagyl) 500 mg in 100 mls @ 100 mls/hr IVPB Q6 [facility] PRN Reason: Protocol Last Admin: 02/25/17 05:27 Dose: 100 mls/hr Amino Acids/Electrolytes/Dextrose (Clinimix 5/20 % "E" (1000 Ml)) 1,000 mls @ 42 mls/hr IV .[id number] [facility] Last Admin: 02/24/17 18:37 Dose: 42 mls/hr Morphine Sulfate (Morphine) 2 mg IVP Q4H PRN PRN Reason: Dyspnea Ondansetron HCl (Zofran Inj) 4 mg IVP Q6 PRN PRN Reason: Nausea/Vomiting Last Admin: 02/13/17 16:26 Dose: 4 mg Pantoprazole Sodium (Protonix Inj) 40 mg IVP DAILY [facility] Last Admin: 02/25/17 10:00 Dose: 40 mg - Labs Labs: 02/25/17 05:50 02/25/17 05:50 PT 13.9 Seconds (9.9-11.8) H 02/23/17 06:00 INR 1.29 (0.93-1.08) H 02/23/17 06:00 APTT 25.9 Seconds (23.7-30.8) 02/23/17 06:00 - Constitutional Appears: Chronically Ill - Eye Exam Additional comments: sluggish reaction to light - Respiratory Exam Respiratory Exam: Decreased Breath Sounds, Rhonchi Additional comments: irregular shallow breathing - Cardiovascular Exam Cardiovascular Exam: Tachycardia, +S1 - GI/Abdominal Exam GI & Abdominal Exam: Diminished Bowel Sounds - Extremities Exam Extremities Exam: Pedal Edema - Neurological Exam Additional comments: unresponsive - Skin Skin Exam: Dry, Pallor Assessment and Plan - Assessment and Plan (Free Text) Assessment: 51 year old female admitted with septic shock, multi organ failure. Patient unresponsive today. Shallow irregular breathing, BIPAP in use. Attempted to reach patient's mother to discuses option for comfort measures. VM left on her cell phone. Plan: Goals of care
--- NOTE | 2017-02-25 17:36 | CP.PCM.PN ---
<Melchor Pringle - Last Filed: 02/25/17 17:32> Subjective - Date & Time of Evaluation Date of Evaluation: 02/25/17 Time of Evaluation: 17:32 - Subjective Subjective: Patient evaluated at bedside. SHe is on BPAP. Agonal breathing noted. HR is labile from 60's to >100. Oxygen saturation 88% on 60% fio2. This improved when Fio2 increased this am. Patient does not appear well. Staff is trying to contact family. Objective - Vital Signs/Intake and Output Vital Signs (last 24 hours): Temp Pulse Resp BP Pulse Ox 99.8 F H 54 L 24 78/46 L 98 02/25/17 12:00 02/25/17 17:24 02/25/17 13:00 02/25/17 15:51 02/25/17 13:00 Intake and Output: 02/25/17 02/25/17 06:59 18:59 Intake Total 1456 Output Total 1900 Balance -444 - Medications Medications: Current Medications Acetaminophen (Tylenol 650 Mg Supp) 650 mg RC Q4H PRN PRN Reason: Fever >100.4 F Albuterol Sulfate (Albuterol 0.083% Inhal Amrailys (2.5 Mg/3 Ml) Ud) 2.5 mg IH [id number] PRN PRN Reason: Wheezing Last Admin: 02/22/17 07:04 Dose: 2.5 mg Arformoterol Tartrate (Brovana) 15 mcg IH [id number] [facility] Last Admin: 02/25/17 07:20 Dose: 15 mcg Budesonide (Pulmicort Respules) 0.5 mg IH [id number] [facility] Last Admin: 02/25/17 07:20 Dose: 0.5 mg Clonazepam (Klonopin) 1 mg PO BID [facility] PRN Reason: Protocol Last Admin: 02/14/17 10:00 Dose: Not Given Enalaprilat (Vasotec Iv) 1.25 mg IVP Q6H [facility] Last Admin: 02/25/17 15:51 Dose: Not Given Furosemide (Lasix) 40 mg IVP DAILY [facility] Last Admin: 02/25/17 10:00 Dose: Not Given Hydrocortisone Sodium Succinate (Solu-Cortef) 25 mg IVP DAILY [facility] Last Admin: 02/24/17 12:44 Dose: 25 mg Hydromorphone HCl (Dilaudid) 2 mg IVP Q4H PRN PRN Reason: Pain, severe (8-10) Metronidazole (Flagyl) 500 mg in 100 mls @ 100 mls/hr IVPB Q6 [facility] PRN Reason: Protocol Last Admin: 02/25/17 12:00 Dose: 100 mls/hr Amino Acids/Electrolytes/Dextrose (Clinimix 5/20 % "E" (1000 Ml)) 1,000 mls @ 42 mls/hr IV .[id number] [facility] Last Admin: 02/24/17 18:37 Dose: 42 mls/hr Lorazepam (Ativan) 0.5 mg IVP Q6H PRN; Protocol PRN Reason: Restlessness Ondansetron HCl (Zofran Inj) 4 mg IVP Q6 PRN PRN Reason: Nausea/Vomiting Last Admin: 02/13/17 16:26 Dose: 4 mg Pantoprazole Sodium (Protonix Inj) 40 mg IVP DAILY [facility] Last Admin: 02/25/17 10:00 Dose: 40 mg - Labs Labs: 02/25/17 05:50 02/25/17 05:50 PT 13.9 Seconds (9.9-11.8) H 02/23/17 06:00 INR 1.29 (0.93-1.08) H 02/23/17 06:00 APTT 25.9 Seconds (23.7-30.8) 02/23/17 06:00 - Head Exam Head Exam: ATRAUMATIC, NORMOCEPHALIC - Eye Exam Eye Exam: PERRL. absent: EOMI - ENT Exam ENT Exam: Mucous Membranes Dry - Neck Exam Neck Exam: absent: Lymphadenopathy - Respiratory Exam Respiratory Exam: absent: Clear to Ausculation Bilateral, NORMAL BREATHING PATTERN - Cardiovascular Exam Cardiovascular Exam: REGULAR RHYTHM, +S1, +S2 - GI/Abdominal Exam GI & Abdominal Exam: Soft. absent: Distended - Extremities Exam Extremities Exam: Pedal Edema - Neurological Exam Neurological Exam: absent: Alert, Awake, Oriented x3 - Skin Skin Exam: Dry, Warm Assessment and Plan - Assessment and Plan (Free Text) Assessment: 51 year old female with past medical history of Crohns disease, asthma, bipolar disorder, polysubstance abuse and recent diagnoses of adenocarcinoma of the colon. Patient is in the ICU recovering from Septic shock 2/2 to abdominal perforation complicated by ESBL urosepsis, concern for acalculous cholecystitis and thrombocytopenia. Septic shock is resolved. Renal function is improving as well as shock liver. Patient's clinical course is deteriorating. Attempts to contact family have not been successful. She is DNR DNI. Patient is now transferred to [facility]. Septic shock 2/2 abdominal perforation complicated by ESBL urosepsis now resolved -palliative measures Blue/dusky discoloration to right fingers concerning for thrombus - doppler was done. no evidence of thrombus acute kidney injury 2/2 septic shock, multi-organ dysfunction syndrome - renal function is improving - avoiding nephrotoxic drugs when possible - maintaining MAP >65 transaminitis 2/2 shock liver in setting of septic shock - liver enzymes trending down - continue to maintain MAP >65 - monitor liver enzymes daily thrombocytopenia 2/2 DIC associated with sepsis -transfused 2u platelets with modest improvement - daily CBC - SCD's bacteremia - E. faecalis in blood culture - continue abx per ID, ICU team UTI - Proteus mirabilis, ESBL in urine - continue abx as above Adenocarcinoma of colon: - heme/onc following - Ct of chest shows interstitial infiltrates with extensive bibasilar consolidations. Extensive B/L and medistinal LAD. <Vadim STARR,Realfort ripleyjuan - Last Filed: 02/26/17 13:38> Objective - Vital Signs/Intake and Output Vital Signs (last 24 hours): Temp Pulse Resp BP Pulse Ox 102.3 F H 48 L 24 158/113 H 98 02/25/17 23:00 02/26/17 02:33 02/25/17 23:00 02/25/17 23:00 02/25/17 13:00 - Labs Labs: 02/25/17 05:50 02/25/17 05:50 PT 13.9 Seconds (9.9-11.8) H 02/23/17 06:00 INR 1.29 (0.93-1.08) H 02/23/17 06:00 APTT 25.9 Seconds (23.7-30.8) 02/23/17 06:00 Attending/Attestation - Attestation I have personally seen and examined this patient.: Yes I have fully participated in the care of the patient.: Yes I have reviewed all pertinent clinical information, including history, physical exam and plan: Yes Notes (Text): 02/26/17 13:34 Patient was seen and examined with medical instructor. 51 year old female with PMH of Crohns disease, asthma, bipolar disorder, polysubstance abuse and recent diagnoses of adenocarcinoma of the colon. She is SP Septic shock 2/2 to abdominal perforation complicated by ESBL urosepsis, concern for acalculous cholecystitis and thrombocytopenia. Blood pressure is stable, but mental status is very poor, she is hypoxic, on BIPAP.She is DNR and DNI.Patient condition was discussed in detail with patient family yesterday.Her Thrombocytopenia is getting worse. Prognosis is very poor.
--- NOTE | 2017-02-25 21:49 | PN ---
DATE: 02/25/2017 This is the patient's hospital visit on the medical floor. For Dr. Lucas. SUBJECTIVE: The patient is a 51-year-old female now seen on the medical floor, lying comatose, unres ponsive to verbal stimuli with irregular breathing on BiPAP with the patient appearing cachectic. The patient was admitted for adenocarcinoma of the rectum with severe leg pain and groin pain with kn own history of substance abuse and recent treatment for colon cancer with colostomy, and is now statu s post respiratory failure with intubation and extubation along with GI bleed, septic shock, multiorg an failure. History of adenocarcinoma of the rectum with severe thrombocytopenia, abdominal perforat ion. At present, the patient is a DNR/DNI with prognosis poor. PHYSICAL EXAMINATION: VITAL SIGNS: Temperature 99.8, pulse 53, respirations 24, blood pressure 78/46. HEENT: The patient does not open eyes to command. BiPAP is on. NECK: Supple. HEART: Bulmaro rate. LUNGS: Scattered rhonchi. ABDOMEN: Soft, distended with colostomy. EXTREMITIES: 2+ edema. NEUROLOGIC: The patient is comatose, unresponsive to verbal and tactile stimuli. SKIN: Warm. LABORATORY DATA: White blood cell count 12.2, hemoglobin 10.3, hematocrit 33.1, platelet count 19,00 0 with a manual count of 21,000. There appears to be no active bleeding at this point. Her chem crisostoom el showed a sodium of 151, potassium of 3.4, carbon dioxide of 39 with a BUN of 53, creatinine of 0.9 . ASSESSMENT: Status post treatment for sepsis, questionable disseminated intravascular coagulation, g astrointestinal bleed, history of thrombocytopenia, perforated viscus, electrolyte imbalance, adenoca rcinoma of the rectum, colostomy, respiratory failure with intubation now extubation with mental stat us change, obtundation. PLAN: To continue as per attending's recommendations with to continue with hospice care as possible. Prognosis for this patient is grave. Norm Lees MD cc: [phone] TT: 02/25/2017 21:49:06 Confirmation # [id number] Dictation # [id number] mn
--- NOTE | 2017-02-25 23:53 | CP.PCM.PRO ---
<NakulpatrickOmkar skinner - Last Filed: 02/25/17 23:50> Pronouncement of Note - Clinical Findings Physical Exam: No Response Verbal/Painful Stimuli, Absent Peripheral Pulses{ Carotid & Femoral}, Absent Heart & Breath Sounds, No Pupillary Light Reflex, No Corneal Reflex, Pupils Fixed & Dilated, Absence of Vital Signs - Pronouncement Time Time of Pronouncement of : 23:50 - Notifications Pronouncement Notifications: Family Notified, Atending Notified Decorative Engraver Apprentice Notified: No - Autopsy Autopsy Requested: No - [place] Certificate Additional Comments: family notified <Lester Smith - Last Filed: 02/26/17 00:08> Attending/Attestation - Attestation I have personally seen and examined this patient.: Yes I have fully participated in the care of the patient.: Yes I have reviewed all pertinent clinical information: Yes Notes (Text): 02/26/17 00:07 EDRS ND # [id number].
[2017-02-26 00:27] VITALS: BP 158/113; PULSE 48; TEMP 102.3
[2017-02-26] MEDS: Budesonide 0.5 mg/2 ml Inhal Susp UD IH SCH (07:42)
[2017-02-26] MEDS: Arformoterol 15 mcg/2 ml Inh Sol IH SCH (07:42)
--- NOTE | 2017-02-26 16:02 | CP.PCM.DIS ---
<Melchor Pringle - Last Filed: 02/26/17 15:50> Provider - Provider Date of Admission: 02/12/17 16:00 Attending physician: Gerardo Fierro MD Primary care physician: Dimitry Chung MD Consults: Surgery - Patricia Whitaker/onc - Shayy urology - Radha Time Spent in preparation of Discharge (in minutes): 35 Diagnosis - Discharge Diagnosis (1) Sepsis Status: Acute Hospital Course - Lab Results Lab Results: Micro Results 02/20/17 06:50 Blood Blood Culture - Final NO GROWTH AFTER 5 DAYS 02/20/17 06:50 Blood Gram Stain - Final TEST NOT PERFORMED 02/23/17 15:05 Urine,[place] Urine Culture - Final No Growth (<1,000 CFU/ML) 02/19/17 15:00 Stool Stool Culture - Final NO SALMONELLA, SHIGELLA OR CAMPYLOBACTER ISOLATED. 02/19/17 13:00 Urine,[place] Urine Culture - Final No Growth (<1,000 CFU/ML) 02/19/17 15:00 Stool C. difficile Antigen & Toxin A,B (M - Final 02/16/17 14:10 Sputum Gram Stain - Final 02/16/17 14:10 Sputum Sputum Culture - Final Yeast Species 02/14/17 03:20 Blood S.aureus & Coag-Neg Staph PNA FISH - Final 02/14/17 03:20 Blood Blood Culture - Final Enterococcus Faecalis 02/14/17 03:20 Blood Gram Stain - Final 02/14/17 04:50 Urine,Clean Catch Urine Culture - Final Escherichia Coli Proteus Mirabilis 02/14/17 02:30 Naris MRSA Culture (Admit) - Final MRSA NOT DETECTED Most Recent Lab Values WBC 12.2 10^3/ul (4.5-11.0) H D 02/25/17 05:50 RBC 3.63 10^6/uL (3.5-6.1) 02/25/17 05:50 Hgb 10.3 gm/dL (12.0-16.0) L 02/25/17 05:50 Hct 33.1 % (36.0-48.0) L 02/25/17 05:50 MCV 91.2 fL (80.0-105.0) 02/25/17 05:50 MCH 28.4 pg (25.0-35.0) 02/25/17 05:50 MCHC 31.1 g/dl (31.0-37.0) 02/25/17 05:50 RDW 17.8 % (11.5-14.5) H 02/25/17 05:50 Plt Count 19 10^3/uL (120.0-450.0) L* 02/25/17 05:50 Manual Plt Count 21 K/mm3 (120-450) L* 02/25/17 05:50 MPV 8.8 fl (7.0-11.0) 02/23/17 06:00 Gran % 76.3 % (50.0-68.0) H 02/24/17 09:10 Lymph % (Auto) 14.3 % (22.0-35.0) L 02/24/17 09:10 [place] % (Auto) 2.1 % (1.0-6.0) 02/24/17 09:10 Eos % (Auto) 3.5 % (1.5-5.0) 02/24/17 09:10 Baso % (Auto) 3.8 % (0.0-3.0) H 02/24/17 09:10 Gran # 13.72 (1.4-6.5) H 02/24/17 09:10 Lymph # 2.6 (1.2-3.4) 02/24/17 09:10 [place] # 0.4 (0.1-0.6) 02/24/17 09:10 Eos # 0.6 (0.0-0.7) 02/24/17 09:10 Baso # 0.69 K/mm3 (0.0-2.0) 02/24/17 09:10 Corrected WBC (Man) 7.2 K/mm3 (4.5-11.0) 02/17/17 06:00 Neutrophils % (Manual) 73 % (50.0-70.0) H 02/22/17 06:48 Band Neutrophils % 4 % (0-2) H 02/22/17 06:48 Lymphocytes % (Manual) 13 % (22.0-35.0) L 02/22/17 06:48 Atypical Lymphs % 3 % (0.0-0.0) H 02/21/17 05:40 Monocytes % (Manual) 7 % (1.0-6.0) H 02/22/17 06:48 Eosinophils % (Manual) 2 % (0.0-3.0) 02/22/17 06:48 Basophils % (Manual) 1 % (0.0-1.0) 02/15/17 06:14 Metamyelocytes % 3 % 02/22/17 06:48 Myelocytes % 3 % 02/21/17 05:40 Promyelocytes % 2 % 02/15/17 06:14 Nucleated RBC % 4 % 02/21/17 05:40 Toxic Granulation 1+ 02/22/17 06:48 Platelet Evaluation Low (NORMAL) 02/22/17 06:48 Polychromasia Slight 02/16/17 17:55 Hypochromasia 2+ 02/22/17 06:48 Poikilocytosis (manual Slight 02/21/17 05:40 Anisocytosis (manual) 1+ 02/22/17 06:48 Microcytosis (manual) Slight 02/16/17 17:55 Target Cells Slight 02/22/17 06:48 Ovalocytes Slight 02/22/17 06:48 Helmet Cells Slight 02/14/17 22:59 [place] Cells Slight 02/21/17 05:40 Rouleaux 2+ 02/22/17 06:48 PT 13.9 Seconds (9.9-11.8) H 02/23/17 06:00 INR 1.29 (0.93-1.08) H 02/23/17 06:00 APTT 25.9 Seconds (23.7-30.8) 02/23/17 06:00 Thrombin Time 15 sec (13-19) 02/19/17 06:05 Fibrinogen 631.4 mg/dL (187-400) H* 02/19/17 06:05 Fibrin Degrad Products >40 ug/ml (< 10 ug/mL) 02/19/17 07:00 D-Dimer, Quantitative 18.00 mg/L FEU (0-0.50) H 02/14/17 22:59 Factor V Activity 121 % (65-150) 02/19/17 06:05 Factor VII 96 % (60-150) 02/19/17 06:05 pCO2 43 mm/Hg (35-45) 02/23/17 05:30 pO2 102.0 mm/Hg (80-100) H 02/23/17 05:30 HCO3 32.0 mmol/L (21-28) H 02/23/17 05:30 ABG pH 7.48 (7.35-7.45) H 02/23/17 05:30 ABG Total CO2 33.3 mmol.L (22-28) H 02/23/17 05:30 ABG O2 Saturation 97.8 % (95-98) 02/23/17 05:30 ABG O2 Content 14.4 ML/dl (15-23) L 02/23/17 05:30 ABG Base Excess 7.7 mmol/L (-2.0-3.0) H 02/23/17 05:30 ABG Hemoglobin 10.6 g/dL (11.7-17.4) L 02/23/17 05:30 ABG Carboxyhemoglobin 1.4 % (0.5-1.5) 02/23/17 05:30 POC ABG HHb (Measured) 2.1 % (0-5) 02/23/17 05:30 ABG Methemoglobin 1.2 % (0.0-3.0) 02/23/17 05:30 ABG O2 Capacity 14.7 mL/dl (16-24) L 02/23/17 05:30 ABG Potassium 3.3 mmol/L (3.6-5.2) L 02/20/17 14:30 VBG pH 7.42 (7.32-7.43) 02/20/17 19:02 VBG pCO2 47.0 (40-60) 02/20/17 19:02 VBG HCO3 30.5 mmol/l (21-28) H 02/20/17 19:02 VBG Total CO2 31.9 mmol.L (22-28) H 02/20/17 19:02 VBG O2 Sat (Calc) 97.9 % (40-65) H 02/20/17 19:02 VBG Base Excess 5.1 mmol/L (0.0-2.0) H 02/20/17 19:02 VBG Potassium 3.1 mmol/L (3.6-5.2) L 02/20/17 19:02 Hgb O2 Saturation 95.3 % (95.0-98.0) 02/23/17 05:30 Sodium 147.0 mmol/L (132-148) 02/20/17 19:02 Chloride 114.0 mmol/L (98-107) H 02/20/17 19:02 Glucose 165 mg/dl (65-105) H 02/20/17 19:02 Lactate 3.2 mmol/L (0.7-2.1) H 02/20/17 19:02 Mechanical Rate 22 02/20/17 14:30 FiO2 70.0 % 02/23/17 05:30 Tidal Volume 340 02/20/17 14:30 PEEP 10 02/20/17 14:30 Sodium 151 mmol/L (132-148) H 02/25/17 05:50 Potassium 3.4 mmol/L (3.6-5.0) L 02/25/17 05:50 Chloride 101 mmol/L (98-107) 02/25/17 05:50 Carbon Dioxide 39 mmol/L (21-33) H 02/25/17 05:50 Anion Gap 14 (10-20) 02/25/17 05:50 BUN 53 mg/dL (7-21) H 02/25/17 05:50 Creatinine 0.9 mg/dL (0.5-1.4) 02/25/17 05:50 Est GFR ( Amer) > 60 02/25/17 05:50 Est GFR (Non-Af Amer) > 60 02/25/17 05:50 POC Glucose (mg/dL) 92 mg/dL (65-110) 02/25/17 21:15 Random Glucose 108 mg/dL (70-110) 02/25/17 05:50 Lactic Acid 2.4 mmol/L (0.7-2.1) H 02/16/17 14:00 Calcium 8.9 mg/dL (8.4-10.5) 02/25/17 05:50 Phosphorus 4.1 mg/dL (2.5-4.5) 02/25/17 05:50 Magnesium 1.7 mg/dL (1.7-2.2) 02/25/17 05:50 Iron 222 ug/dL (45-180) H 02/12/17 06:15 TIBC 247 ug/dL (265-497) L 02/12/17 06:15 % Saturation 90 % (20-55) H 02/12/17 06:15 Ferritin 582.0 ng/mL 02/12/17 06:15 Total Bilirubin 1.3 mg/dL (0.2-1.3) 02/25/17 05:50 AST 53 U/L (15-39) H 02/25/17 05:50 ALT 45 U/L (7-56) 02/25/17 05:50 Alkaline Phosphatase 121 U/L (38-133) 02/25/17 05:50 Lactate Dehydrogenase 5047 U/L (333-699) H 02/14/17 17:25 Total Creatine Kinase 2467 U/L (35-230) H 02/14/17 17:25 CK-MB (CK-2) 28.4 ng/mL (0.0-3.6) H 02/14/17 17:25 CK-MB (CK-2) % 1.2 % (2.5-3.0) L 02/14/17 17:25 Troponin I 0.41 ng/mL H* D 02/14/17 17:25 NT-Pro-B Natriuret Pep 4990 pg/mL (0-450) H 02/14/17 03:20 Total Protein 6.2 g/dL (5.8-8.3) 02/25/17 05:50 Albumin 2.7 g/dL (3.0-4.8) L 02/25/17 05:50 Globulin 3.5 gm/dL 02/25/17 05:50 Albumin/Globulin Ratio 0.8 (1.1-1.8) L 02/25/17 05:50 Triglycerides 194 mg/dL (35-160) H 02/19/17 12:16 Cholesterol 143 mg/dL (130-200) 02/19/17 12:16 LDL Cholesterol Direct 86 mg/dL (0-129) 02/19/17 12:16 HDL Cholesterol 18 mg/dL (29-60) L 02/19/17 12:16 Carcinoembryonic Ag 395.0 ng/mL (0.0-3.0) H 02/13/17 06:30 CA 19-9 Antigen 413 U/mL (0-37) H D 02/13/17 06:30 Procalcitonin 49.96 NG/ML (0.19-0.49) H 02/19/17 16:10 Arterial Blood Potassium 3.3 mmol/L (3.6-5.2) L 02/20/17 14:30 Venous Blood Potassium 3.1 mmol/L (3.6-5.2) L 02/20/17 19:02 Urine Color Yellow (YELLOW) 02/19/17 13:00 Urine Appearance Sl cloudy (CLEAR) 02/19/17 13:00 Urine pH 6.5 (4.7-8.0) 02/19/17 13:00 Ur Specific [place] 1.025 (1.005-1.035) 02/19/17 13:00 Urine Protein 100 mg/dL (<30 mg/dL) H 02/19/17 13:00 Urine Glucose (UA) Negative mg/dL (NEGATIVE) 02/19/17 13:00 Urine Ketones Negative mg/dL (NEGATIVE) 02/19/17 13:00 Urine Blood Moderate (NEGATIVE) H 02/19/17 13:00 Urine Nitrate Negative (NEGATIVE) 02/19/17 13:00 Urine Bilirubin Negative (NEGATIVE) 02/19/17 13:00 Urine Urobilinogen 0.2 E.U./dL (<1 E.U./dL) 02/19/17 13:00 Ur Leukocyte Esterase Negative Lesley/uL (NEGATIVE) 02/19/17 13:00 Urine RBC 15 - 20 /hpf (0-2) 02/19/17 13:00 Urine WBC 0 - 2 /hpf (0-6) 02/19/17 13:00 Ur Epithelial Cells 1 - 3 /hpf (0-5) 02/11/17 10:00 Amorphous Sediment Moderate 02/11/17 10:00 Urine Bacteria Few (NEG) 02/19/17 13:00 Coarse Granular Casts Small /hpf (0-2) H 02/19/17 13:00 Random Vancomycin 30.9 ug/mL (20.0-40.0) 02/15/17 11:13 Urine Opiates Screen Positive (NEGATIVE) H 02/14/17 13:05 Urine Methadone Screen Negative (NEGATIVE) 02/14/17 13:05 Ur Barbiturates Screen Negative (NEGATIVE) 02/14/17 13:05 Ur Phencyclidine Scrn Negative (NEGATIVE) 02/14/17 13:05 Ur Amphetamines Screen Negative (NEGATIVE) 02/14/17 13:05 U Benzodiazepines Scrn Positive (NEGATIVE) H 02/14/17 13:05 U Oth Cocaine Metabols Negative (NEGATIVE) 02/14/17 13:05 U Cannabinoids Screen Negative (NEGATIVE) 02/14/17 13:05 Heparin-induced Plt Ab Negative (Negative) 02/13/17 08:00 Hepatitis A IgM Ab Negative (NEGATIVE) 02/13/17 08:00 Hep Bs Antigen Negative (NEGATIVE) 02/13/17 08:00 Hep B Core IgM Ab Negative (NEGATIVE) 02/13/17 08:00 Hepatitis C Antibody Negative (NEGATIVE) 02/13/17 08:00 HIV 1&2 Antibody Screen Negative (NEGATIVE) 02/15/17 06:14 Beta-(1,3)-D-Glucan 70 pg/mL H 02/20/17 08:45 B-(1,3)-D-Glucan Intrp See note 02/20/17 08:45 Blood Type O POSITIVE 02/18/17 14:10 Antibody Screen Negative 02/18/17 14:10 Crossmatch See Detail 02/18/17 14:10 BBK History Checked Patient has bt 02/18/17 14:10 - Hospital Course Hospital Course: 51 yo F C/O B/L leg and groin pain causing antalgic gait. She also C/O fatigue, NV, abd pain. Patient admitted with symptomatic anemia. She was taken for colonoscopy to investigate possible source of bleeding. Colonoscopy was complicated by bowel perforation. The patient was transferred to the ICU. Patient developed sepsis secondary to perforated viscous. Sepsis complicated by respiratory failure requiring intubation and mechanical ventilation. Patient is hemodynamically unstable with requiring pressers for BP support. The patient was placed on broad spectrum empiric abx. Subsequently the patient developed thrombocytopenia. Heparin was held. HIT panel is negative and DIC was presumed. Patient continued to be anemic requiring multiple transfusions. Sepsis was further complicated by urine infection. Family as educated on the patient's critical status and poor prognosis. Family elected to forego further surgery. Ultimately the patient was made DNR/DNI by family and moved from the ICU to telemetry where she on 02/25/17. Discharge Exam - Head Exam Head Exam: ATRAUMATIC, NORMOCEPHALIC Discharge Plan - Follow Up Plan Condition: FAIR Disposition: WITH WITHOUT AUTOPSY Referrals: Dimitry Chung MD [Primary Care Provider] - <Vadim STARR,Gerardo - Last Filed: 02/26/17 16:13> Provider - Provider Date of Admission: 02/12/17 16:00 Attending physician: Gerardo Fierro MD Primary care physician: Dimitry Chung MD Time Spent in preparation of Discharge (in minutes): 25 Hospital Course - Lab Results Lab Results: Micro Results 02/20/17 06:50 Blood Blood Culture - Final NO GROWTH AFTER 5 DAYS 02/20/17 06:50 Blood Gram Stain - Final TEST NOT PERFORMED 02/23/17 15:05 Urine,[place] Urine Culture - Final No Growth (<1,000 CFU/ML) 02/19/17 15:00 Stool Stool Culture - Final NO SALMONELLA, SHIGELLA OR CAMPYLOBACTER ISOLATED. 02/19/17 13:00 Urine,[place] Urine Culture - Final No Growth (<1,000 CFU/ML) 02/19/17 15:00 Stool C. difficile Antigen & Toxin A,B (M - Final 02/16/17 14:10 Sputum Gram Stain - Final 02/16/17 14:10 Sputum Sputum Culture - Final Yeast Species 02/14/17 03:20 Blood S.aureus & Coag-Neg Staph PNA FISH - Final 02/14/17 03:20 Blood Blood Culture - Final Enterococcus Faecalis 02/14/17 03:20 Blood Gram Stain - Final 02/14/17 04:50 Urine,Clean Catch Urine Culture - Final Escherichia Coli Proteus Mirabilis 02/14/17 02:30 Naris MRSA Culture (Admit) - Final MRSA NOT DETECTED Most Recent Lab Values WBC 12.2 10^3/ul (4.5-11.0) H D 02/25/17 05:50 RBC 3.63 10^6/uL (3.5-6.1) 02/25/17 05:50 Hgb 10.3 gm/dL (12.0-16.0) L 02/25/17 05:50 Hct 33.1 % (36.0-48.0) L 02/25/17 05:50 MCV 91.2 fL (80.0-105.0) 02/25/17 05:50 MCH 28.4 pg (25.0-35.0) 02/25/17 05:50 MCHC 31.1 g/dl (31.0-37.0) 02/25/17 05:50 RDW 17.8 % (11.5-14.5) H 02/25/17 05:50 Plt Count 19 10^3/uL (120.0-450.0) L* 02/25/17 05:50 Manual Plt Count 21 K/mm3 (120-450) L* 02/25/17 05:50 MPV 8.8 fl (7.0-11.0) 02/23/17 06:00 Gran % 76.3 % (50.0-68.0) H 02/24/17 09:10 Lymph % (Auto) 14.3 % (22.0-35.0) L 02/24/17 09:10 [place] % (Auto) 2.1 % (1.0-6.0) 02/24/17 09:10 Eos % (Auto) 3.5 % (1.5-5.0) 02/24/17 09:10 Baso % (Auto) 3.8 % (0.0-3.0) H 02/24/17 09:10 Gran # 13.72 (1.4-6.5) H 02/24/17 09:10 Lymph # 2.6 (1.2-3.4) 02/24/17 09:10 [place] # 0.4 (0.1-0.6) 02/24/17 09:10 Eos # 0.6 (0.0-0.7) 02/24/17 09:10 Baso # 0.69 K/mm3 (0.0-2.0) 02/24/17 09:10 Corrected WBC (Man) 7.2 K/mm3 (4.5-11.0) 02/17/17 06:00 Neutrophils % (Manual) 73 % (50.0-70.0) H 02/22/17 06:48 Band Neutrophils % 4 % (0-2) H 02/22/17 06:48 Lymphocytes % (Manual) 13 % (22.0-35.0) L 02/22/17 06:48 Atypical Lymphs % 3 % (0.0-0.0) H 02/21/17 05:40 Monocytes % (Manual) 7 % (1.0-6.0) H 02/22/17 06:48 Eosinophils % (Manual) 2 % (0.0-3.0) 02/22/17 06:48 Basophils % (Manual) 1 % (0.0-1.0) 02/15/17 06:14 Metamyelocytes % 3 % 02/22/17 06:48 Myelocytes % 3 % 02/21/17 05:40 Promyelocytes % 2 % 02/15/17 06:14 Nucleated RBC % 4 % 02/21/17 05:40 Toxic Granulation 1+ 02/22/17 06:48 Platelet Evaluation Low (NORMAL) 02/22/17 06:48 Polychromasia Slight 02/16/17 17:55 Hypochromasia 2+ 02/22/17 06:48 Poikilocytosis (manual Slight 02/21/17 05:40 Anisocytosis (manual) 1+ 02/22/17 06:48 Microcytosis (manual) Slight 02/16/17 17:55 Target Cells Slight 02/22/17 06:48 Ovalocytes Slight 02/22/17 06:48 Helmet Cells Slight 02/14/17 22:59 [place] Cells Slight 02/21/17 05:40 Rouleaux 2+ 02/22/17 06:48 PT 13.9 Seconds (9.9-11.8) H 02/23/17 06:00 INR 1.29 (0.93-1.08) H 02/23/17 06:00 APTT 25.9 Seconds (23.7-30.8) 02/23/17 06:00 Thrombin Time 15 sec (13-19) 02/19/17 06:05 Fibrinogen 631.4 mg/dL (187-400) H* 02/19/17 06:05 Fibrin Degrad Products >40 ug/ml (< 10 ug/mL) 02/19/17 07:00 D-Dimer, Quantitative 18.00 mg/L FEU (0-0.50) H 02/14/17 22:59 Factor V Activity 121 % (65-150) 02/19/17 06:05 Factor VII 96 % (60-150) 02/19/17 06:05 pCO2 43 mm/Hg (35-45) 02/23/17 05:30 pO2 102.0 mm/Hg (80-100) H 02/23/17 05:30 HCO3 32.0 mmol/L (21-28) H 02/23/17 05:30 ABG pH 7.48 (7.35-7.45) H 02/23/17 05:30 ABG Total CO2 33.3 mmol.L (22-28) H 02/23/17 05:30 ABG O2 Saturation 97.8 % (95-98) 02/23/17 05:30 ABG O2 Content 14.4 ML/dl (15-23) L 02/23/17 05:30 ABG Base Excess 7.7 mmol/L (-2.0-3.0) H 02/23/17 05:30 ABG Hemoglobin 10.6 g/dL (11.7-17.4) L 02/23/17 05:30 ABG Carboxyhemoglobin 1.4 % (0.5-1.5) 02/23/17 05:30 POC ABG HHb (Measured) 2.1 % (0-5) 02/23/17 05:30 ABG Methemoglobin 1.2 % (0.0-3.0) 02/23/17 05:30 ABG O2 Capacity 14.7 mL/dl (16-24) L 02/23/17 05:30 ABG Potassium 3.3 mmol/L (3.6-5.2) L 02/20/17 14:30 VBG pH 7.42 (7.32-7.43) 02/20/17 19:02 VBG pCO2 47.0 (40-60) 02/20/17 19:02 VBG HCO3 30.5 mmol/l (21-28) H 02/20/17 19:02 VBG Total CO2 31.9 mmol.L (22-28) H 02/20/17 19:02 VBG O2 Sat (Calc) 97.9 % (40-65) H 02/20/17 19:02 VBG Base Excess 5.1 mmol/L (0.0-2.0) H 02/20/17 19:02 VBG Potassium 3.1 mmol/L (3.6-5.2) L 02/20/17 19:02 Hgb O2 Saturation 95.3 % (95.0-98.0) 02/23/17 05:30 Sodium 147.0 mmol/L (132-148) 02/20/17 19:02 Chloride 114.0 mmol/L (98-107) H 02/20/17 19:02 Glucose 165 mg/dl (65-105) H 02/20/17 19:02 Lactate 3.2 mmol/L (0.7-2.1) H 02/20/17 19:02 Mechanical Rate 22 02/20/17 14:30 FiO2 70.0 % 02/23/17 05:30 Tidal Volume 340 02/20/17 14:30 PEEP 10 02/20/17 14:30 Sodium 151 mmol/L (132-148) H 02/25/17 05:50 Potassium 3.4 mmol/L (3.6-5.0) L 02/25/17 05:50 Chloride 101 mmol/L (98-107) 02/25/17 05:50 Carbon Dioxide 39 mmol/L (21-33) H 02/25/17 05:50 Anion Gap 14 (10-20) 02/25/17 05:50 BUN 53 mg/dL (7-21) H 02/25/17 05:50 Creatinine 0.9 mg/dL (0.5-1.4) 02/25/17 05:50 Est GFR ( Amer) > 60 02/25/17 05:50 Est GFR (Non-Af Amer) > 60 02/25/17 05:50 POC Glucose (mg/dL) 92 mg/dL (65-110) 02/25/17 21:15 Random Glucose 108 mg/dL (70-110) 02/25/17 05:50 Lactic Acid 2.4 mmol/L (0.7-2.1) H 02/16/17 14:00 Calcium 8.9 mg/dL (8.4-10.5) 02/25/17 05:50 Phosphorus 4.1 mg/dL (2.5-4.5) 02/25/17 05:50 Magnesium 1.7 mg/dL (1.7-2.2) 02/25/17 05:50 Iron 222 ug/dL (45-180) H 02/12/17 06:15 TIBC 247 ug/dL (265-497) L 02/12/17 06:15 % Saturation 90 % (20-55) H 02/12/17 06:15 Ferritin 582.0 ng/mL 02/12/17 06:15 Total Bilirubin 1.3 mg/dL (0.2-1.3) 02/25/17 05:50 AST 53 U/L (15-39) H 02/25/17 05:50 ALT 45 U/L (7-56) 02/25/17 05:50 Alkaline Phosphatase 121 U/L (38-133) 02/25/17 05:50 Lactate Dehydrogenase 5047 U/L (333-699) H 02/14/17 17:25 Total Creatine Kinase 2467 U/L (35-230) H 02/14/17 17:25 CK-MB (CK-2) 28.4 ng/mL (0.0-3.6) H 02/14/17 17:25 CK-MB (CK-2) % 1.2 % (2.5-3.0) L 02/14/17 17:25 Troponin I 0.41 ng/mL H* D 02/14/17 17:25 NT-Pro-B Natriuret Pep 4990 pg/mL (0-450) H 02/14/17 03:20 Total Protein 6.2 g/dL (5.8-8.3) 02/25/17 05:50 Albumin 2.7 g/dL (3.0-4.8) L 02/25/17 05:50 Globulin 3.5 gm/dL 02/25/17 05:50 Albumin/Globulin Ratio 0.8 (1.1-1.8) L 02/25/17 05:50 Triglycerides 194 mg/dL (35-160) H 02/19/17 12:16 Cholesterol 143 mg/dL (130-200) 02/19/17 12:16 LDL Cholesterol Direct 86 mg/dL (0-129) 02/19/17 12:16 HDL Cholesterol 18 mg/dL (29-60) L 02/19/17 12:16 Carcinoembryonic Ag 395.0 ng/mL (0.0-3.0) H 02/13/17 06:30 CA 19-9 Antigen 413 U/mL (0-37) H D 02/13/17 06:30 Procalcitonin 49.96 NG/ML (0.19-0.49) H 02/19/17 16:10 Arterial Blood Potassium 3.3 mmol/L (3.6-5.2) L 02/20/17 14:30 Venous Blood Potassium 3.1 mmol/L (3.6-5.2) L 02/20/17 19:02 Urine Color Yellow (YELLOW) 02/19/17 13:00 Urine Appearance Sl cloudy (CLEAR) 02/19/17 13:00 Urine pH 6.5 (4.7-8.0) 02/19/17 13:00 Ur Specific [place] 1.025 (1.005-1.035) 02/19/17 13:00 Urine Protein 100 mg/dL (<30 mg/dL) H 02/19/17 13:00 Urine Glucose (UA) Negative mg/dL (NEGATIVE) 02/19/17 13:00 Urine Ketones Negative mg/dL (NEGATIVE) 02/19/17 13:00 Urine Blood Moderate (NEGATIVE) H 02/19/17 13:00 Urine Nitrate Negative (NEGATIVE) 02/19/17 13:00 Urine Bilirubin Negative (NEGATIVE) 02/19/17 13:00 Urine Urobilinogen 0.2 E.U./dL (<1 E.U./dL) 02/19/17 13:00 Ur Leukocyte Esterase Negative Lesley/uL (NEGATIVE) 02/19/17 13:00 Urine RBC 15 - 20 /hpf (0-2) 02/19/17 13:00 Urine WBC 0 - 2 /hpf (0-6) 02/19/17 13:00 Ur Epithelial Cells 1 - 3 /hpf (0-5) 02/11/17 10:00 Amorphous Sediment Moderate 02/11/17 10:00 Urine Bacteria Few (NEG) 02/19/17 13:00 Coarse Granular Casts Small /hpf (0-2) H 02/19/17 13:00 Random Vancomycin 30.9 ug/mL (20.0-40.0) 02/15/17 11:13 Urine Opiates Screen Positive (NEGATIVE) H 02/14/17 13:05 Urine Methadone Screen Negative (NEGATIVE) 02/14/17 13:05 Ur Barbiturates Screen Negative (NEGATIVE) 02/14/17 13:05 Ur Phencyclidine Scrn Negative (NEGATIVE) 02/14/17 13:05 Ur Amphetamines Screen Negative (NEGATIVE) 02/14/17 13:05 U Benzodiazepines Scrn Positive (NEGATIVE) H 02/14/17 13:05 U Oth Cocaine Metabols Negative (NEGATIVE) 02/14/17 13:05 U Cannabinoids Screen Negative (NEGATIVE) 02/14/17 13:05 Heparin-induced Plt Ab Negative (Negative) 02/13/17 08:00 Hepatitis A IgM Ab Negative (NEGATIVE) 02/13/17 08:00 Hep Bs Antigen Negative (NEGATIVE) 02/13/17 08:00 Hep B Core IgM Ab Negative (NEGATIVE) 02/13/17 08:00 Hepatitis C Antibody Negative (NEGATIVE) 02/13/17 08:00 HIV 1&2 Antibody Screen Negative (NEGATIVE) 02/15/17 06:14 Beta-(1,3)-D-Glucan 70 pg/mL H 02/20/17 08:45 B-(1,3)-D-Glucan Intrp See note 02/20/17 08:45 Blood Type O POSITIVE 02/18/17 14:10 Antibody Screen Negative 02/18/17 14:10 Crossmatch See Detail 02/18/17 14:10 BBK History Checked Patient has bt 02/18/17 14:10 Attending/Attestation - Attestation I have fully participated in the care of the patient.: Yes I have reviewed all pertinent clinical information, including history, physical exam and plan: Yes
--- NOTE | 2017-02-26 22:48 | PN ---
DATE: 02/25/2017 ADDENDUM: I spoke with the patient's mother and we discussed comfort care. The patient's mother decided to pro ceed with comfort care. All questions were answered and the opportunity to ask questions were given. All risks and benefits of the decisions were discussed. We will proceed with palliative care estelle ramos. Van Lopez MD cc: [id number] TT: 02/26/2017 22:48:11 Confirmation # [id number] Dictation # [id number] mn
== END 2017-02-25 23:00 | DRG 584 ==
LOC: ED 09:15 → ERH 11:26 → 5RNO 13:00 → OBSVTOIN 02-12 16:00 → CCU 02-14 01:58 → 2RNO 02-25 14:47
PROVIDERS: ADMIT Internal Medicine; ATTEND Internal Medicine
PROC: 30233N1 Transfusion of Nonautologous Red Blood Cells into Peripheral Vein, Percutaneous Approach (ICD-10-PCS; 2017-02-11)
PROC: 0DJDXZZ Inspection of Lower Intestinal Tract, External Approach (ICD-10-PCS; 2017-02-13)
PROC: 5A1955Z Respiratory Ventilation, Greater than 96 Consecutive Hours (ICD-10-PCS; principal; 2017-02-14)
PROC: 0BH17EZ Insertion of Endotracheal Airway into Trachea, Via Natural or Artificial Opening (ICD-10-PCS; 2017-02-14)
PROC: 30233K1 Transfusion of Nonautologous Frozen Plasma into Peripheral Vein, Percutaneous Approach (ICD-10-PCS; 2017-02-14)
PROC: 6A551Z2 Pheresis of Platelets, Multiple (ICD-10-PCS; 2017-02-14)
PROC: 05HM33Z Insertion of Infusion Device into Right Internal Jugular Vein, Percutaneous Approach (ICD-10-PCS; 2017-02-20)
PROC: B543ZZA Ultrasonography of Right Jugular Veins, Guidance (ICD-10-PCS; 2017-02-20)
DX: A41.9 Sepsis, unspecified organism (principal); D65 Disseminated intravascular coagulation [defibrination syndrome]; K72.00 Acute and subacute hepatic failure without coma; N17.0 Acute kidney failure with tubular necrosis; J96.01 Acute respiratory failure with hypoxia; J18.9 Pneumonia, unspecified organism; R57.8 Other shock; G93.41 Metabolic encephalopathy; K65.1 Peritoneal abscess; K63.1 Perforation of intestine (nontraumatic); R65.21 Severe sepsis with septic shock; Z99.11 Dependence on respirator [ventilator] status; E87.4 Mixed disorder of acid-base balance; D61.818 Other pancytopenia; C20 Malignant neoplasm of rectum; I50.9 Heart failure, unspecified; D62 Acute posthemorrhagic anemia; D69.59 Other secondary thrombocytopenia; E87.0 Hyperosmolality and hypernatremia; B96.4 Proteus (mirabilis) (morganii) as the cause of diseases classified elsewhere; B19.20 Unspecified viral hepatitis C without hepatic coma; E87.6 Hypokalemia; F11.20 Opioid dependence, uncomplicated; F14.10 Cocaine abuse, uncomplicated; I11.0 Hypertensive heart disease with heart failure; I42.9 Cardiomyopathy, unspecified; J44.0 Chronic obstructive pulmonary disease with (acute) lower respiratory infection; J98.11 Atelectasis; K61.1 Rectal abscess; L03.119 Cellulitis of unspecified part of limb; N13.30 Unspecified hydronephrosis; N39.0 Urinary tract infection, site not specified; R18.8 Other ascites; R64 Cachexia; I24.8 Other forms of acute ischemic heart disease; K81.9 Cholecystitis, unspecified; E83.42 Hypomagnesemia; B96.20 Unspecified Escherichia coli [E. coli] as the cause of diseases classified elsewhere; E78.00 Pure hypercholesterolemia, unspecified; E86.9 Volume depletion, unspecified; E88.09 Other disorders of plasma-protein metabolism, not elsewhere classified; F17.200 Nicotine dependence, unspecified, uncomplicated; F31.9 Bipolar disorder, unspecified; F41.8 Other specified anxiety disorders; I73.89 Other specified peripheral vascular diseases; K21.9 Gastro-esophageal reflux disease without esophagitis; K50.911 Crohn's disease, unspecified, with rectal bleeding; K66.8 Other specified disorders of peritoneum; K82.8 Other specified diseases of gallbladder; L40.9 Psoriasis, unspecified; Z66 Do not resuscitate; Z81.8 Family history of other mental and behavioral disorders; Z82.49 Family history of ischemic heart disease and other diseases of the circulatory system; Z85.048 Personal history of other malignant neoplasm of rectum, rectosigmoid junction, and anus; Z87.01 Personal history of pneumonia (recurrent); Z88.5 Allergy status to narcotic agent; Z90.49 Acquired absence of other specified parts of digestive tract; Z91.19 Patient's noncompliance with other medical treatment and regimen; Z93.3 Colostomy status; Z86.2 Personal history of diseases of the blood and blood-forming organs and certain disorders involving the immune mechanism; Z82.5 Family history of asthma and other chronic lower respiratory diseases; Z16.12 Extended spectrum beta lactamase (ESBL) resistance; J45.909 Unspecified asthma, uncomplicated; Z85.038 Personal history of other malignant neoplasm of large intestine; L30.9 Dermatitis, unspecified; R40.2412 Glasgow coma scale score 13-15, at arrival to emergency department; R59.0 Localized enlarged lymph nodes; M54.9 Dorsalgia, unspecified; R40.2434 Glasgow coma scale score 3-8, 24 hours or more after hospital admission; Z78.1 Physical restraint status